=== PATIENT | female | born 1960 | race American Indian/Alaskan Native ===

== ENCOUNTER 2019-08-17 13:13 | Emergency (ER) | payer MEDICAID, SELFPAY ==
[2019-08-17 13:23] VITALS: BP 133/73; PULSE 79; RESP 16; TEMP 36.7; O2SAT 100
[2019-08-17 13:43] LABS: Bilirubin Negative (Negative); Blood Moderate (Negative); Clarity Clear (Clear); Glucose Negative (Negative); Ketones Negative (Negative); Leukocyte Esterase Moderate (Negative); Nitrite Negative (Negative); Specific Gravity <= 1.005 (1.005-1.025); Urobilinogen 0.2 EU/dL (Up TO 0.2); pH 5.5 (5-8)
--- NOTE | 2019-08-17 13:44 | ED.GENADUL_ITS ---
Discharge Plan Disposition Patient Disposition: HOME Condition: Improving Discharge Details Chief Complaint: Urinary Clinical Impression: Acute UTI Primary Care Provider: None,None ED Provider: Ten Leung Home Meds and New Rx's Prescriptions: No Action vitamin E 1,000 unit Capsule 1,000 unit PO DAILY RF: 0 fosinopril 20 mg Tablet 20 mg PO DAILY RF: 0 sildenafil 25 mg Tablet 25 mg PO 5X/DAY RF: 0 amlodipine 10 mg Tablet 10 mg PO DAILY RF: 0 esomeprazole magnesium [Nexium] 40 mg Capsule,Delayed Release(Dr/Ec) 40 mg PO BID RF: 0 nitroglycerin 2 % Ointment 1 inch TRANSDERMAL BID RF: 0 Imodium Multi-Symptom Relief 2-125 mg Tablet 1 tab PO DAILY RF: 0 Vitamin D3 Complete 18 mg iron-800 mcg-150 mg Tablet 1 tab PO DAILY RF: 0 Medical Decision Making 59-year-old [facility] hours of urinary urgency, burning, frequency. She is afebrile and well-appearing. No evidence of peritonitis. She does have a history of scleroderma and Raynaud's syndrome.. These are stable and unchanged. Urinalysis obtained and consistent with acute cystitis with positive leuk esterase, numerous white blood cells present. We will treat her with a course of Keflex 250 mg per dose. Pyridium for comfort. She will follow-up with her regular doctor in [facility] if not improving in 3 to 5 days time. She understands homecare as well as return precautions. HPI General Mode of arrival: ambulatory . Date/Time Provider Initiated Documentation: 08/17/19 13:17 . Limitations to Documentation: no limitations . Information obtained by: patient . History of Present Illness 59 year old F presents to the emergency department with the chief complaint of Urinary frequency, urgency, burning over hours time, Quality is described as constant, and is localized to the pelvis and genitals. Patient reports no radiation. Patient started experiencing this hour(s) and it has been constant. No relieving factors improve symptom(s), No exacerbating factors reported . Patient notes denies fever/chills and nausea/vomiting. Patient did receive the following treatments prior to arrival, none Related Data Home Medications Medication Instructions Recorded Confirmed amlodipine 10 mg PO DAILY 08/17/19 08/17/19 esomeprazole magnesium [Nexium] 40 mg PO BID 08/17/19 08/17/19 fosinopril 20 mg PO DAILY 08/17/19 08/17/19 loperamide-simethicone [Imodium 1 tab PO DAILY 08/17/19 08/17/19 Multi-Symptom Relief] nd-pr-wkor-FA-herbal cmplx#190 1 tab PO DAILY 08/17/19 08/17/19 [Vitamin D3 Complete] nitroglycerin 1 inch TRANSDERMAL BID 08/17/19 08/17/19 sildenafil 25 mg PO 5X/DAY 08/17/19 08/17/19 vitamin E 1,000 unit PO DAILY 08/17/19 08/17/19 Allergies Allergy/AdvReac Type Severity Reaction Status Date / Time No Known Allergies Allergy Unverified 08/17/19 13:25 General Stated Complaint: Urinary LULI: 4 Review of Systems Review of Systems Narrative: 6 systems reviewed and otherwise negative. Patient has many chronic medical problems but no acute changes to her past medical history. [facility], [facility] Medical History High blood pressure (Chronic) Kidney failure (Chronic) Cardona syndrome (Acute) Social History Smoking/Tobacco Use Status: Never Alcohol Intake: never Substance use type: does not use Do you feel safe at home: Yes Do you feel safe in your relationship?: Yes Exam Narrative Exam Narrative: GEN: awake, alert, oriented 3. Pleasant, well groomed, interactive. HEAD: Normocephalic, atraumatic ENT: Mucous membranes moist, oropharynx unremarkable, External ear exam unremarkable EYES: PERRL, EOMI NECK: Full ROM, no GIOVANI, no menigismus CHEST/RESP: Nontender, clear to auscultation bilateral, no wheeze/rhonchi/rales CARDIOVASCULAR: RRR, no murmur, rub ehsan. 2+ Rad pulse bilateral ABDOMEN: Soft, minimal suprapubic tenderness without rebound or guarding, no mass. +Bowel sounds EXT: Full ROM, no edema, no rash, tense skin over bilateral hands consistent with patient's history of scleroderma Neuro: Grossly normal neurologic exam, conversant, interactive. Psych: Speech fluent, thoughts congruent, affect normal Course Vital Signs Vital signs: Vital Signs Temperature 36.7 C 08/17/19 13:23 Pulse 79 08/17/19 13:23 Respiratory Rate 16 08/17/19 13:23 Blood Pressure 133/73 08/17/19 13:23 Pulse Oximetry 100 08/17/19 13:23 Temperature 36.7 C 08/17/19 13:23 Temperature Source Skin 08/17/19 13:23 Pulse 79 08/17/19 13:23 Respiratory Rate 16 08/17/19 13:23 Respiratory Effort Non-Labored 08/17/19 13:30 Blood Pressure 133/73 08/17/19 13:23 Pulse Oximetry 100 08/17/19 13:23 Pain Level 8 08/17/19 13:38
[2019-08-17 13:55] LABS: Bacteria Few HPF (Negative); C & S Indicated? Yes; Casts Negative LPF (Negative); Crystals Negative HPF (Negative); Epithelial Cells Moderate HPF (Negative); Mucus Negative (Negative); WBC >50 HPF (0-5)
[2019-08-17] MEDS: Cephalexin 500 MG CAP PO (14:16)
[2019-08-17] MEDS: Phenazopyridine 100 MG TAB PO (14:16)
== END 2019-08-17 14:21 | disposition home or self-care (01) ==
PROVIDERS: Emergency Provider Emergency Medicine
DX: N39.0 Urinary tract infection, site not specified (principal); B96.20 Unspecified Escherichia coli [E. coli] as the cause of diseases classified elsewhere
CPT/HCPCS: 87077; 99283; 81003; 81015; 87086; 87186

== ENCOUNTER 2021-04-20 01:03 | Outpatient (CLI) | payer MEDICAID, SELFPAY ==
--- NOTE | 2021-04-20 11:29 | DI.MAMMO_ITS ---
Exam(s) MAMMO SCREENING EXAM: MAMMO SCREENING CLINICAL HISTORY: screening,Z12.39 TECHNIQUE: Mammograms were interpreted according to the usual protocol including computer analysis w [facility] CAD system, tomosynthesis and C-view imaging. COMPARISON: FINDINGS: The breasts are heterogeneously dense. No dominant mass or clumped microcalcification is identified in either breast. The current examination is compared with previous examinations including January and there has been no gross interval change in appearance comparison with the previous studies. IMPRESSION: No specific evidence of malignancy at this time. Routine screening examinations are suggested at yea rly intervals in this age group according to the ACS ACR guidelines. BI-RADS Category 1 - Negative Breast Density - Category C - Heterogeneously dense
== END 2021-04-20 01:23 ==
DX: Z12.31 Encounter for screening mammogram for malignant neoplasm of breast (principal)
CPT/HCPCS: 77063; 77067

== ENCOUNTER 2021-08-16 11:22 | Outpatient (REF) | payer MEDICAID, SELFPAY ==
--- NOTE | 2021-08-16 10:15 | PAPFT_PTH ---
PATIENT: Amber Wells LOC: [facility] U#:[id number] AGE/SX: 61/F ROOM: RE08/16/[address]: Danya Acuna APRN : 1960 BED: DIS: 08/16/2021 SPEC #: [id number] RECD: 08/16/21 13:01 STATUS: HARSHA REArianna #: [id number] NAVYA: 08/16/21 10:[address]: Danya Acuna DEPT: [facility] Cytology RECD BY: Susannah Delgado Tissues: 1 - CX/ENDOCX FOR PAP SMEARS Procedures: PAP THIN PREP/UVM Screening HPV DNA PROBE Comments: [id number]
== END 2021-08-16 11:23 | disposition home or self-care (01) ==
LOC: LBN 11:22
DX: Z12.4 Encounter for screening for malignant neoplasm of cervix (principal); Z11.51 Encounter for screening for human papillomavirus (HPV)
CPT/HCPCS: 88142; 87624

== ENCOUNTER 2021-08-17 03:48 | Outpatient (CLI) | payer MEDICAID, SELFPAY ==
[2021-08-17 11:26] LABS: ALT 22 U/L (14-59); AST 14 U/L (15-37); Albumin 3.9 g/dL (3.4-5.0); Alkaline Phosphatase 61 U/L (46-116); Anion Gap 10.7 mmol/L (3-11); BUN 26 mg/dL (7-18); Bilirubin, Total 0.4 mg/dL (0.2-1.0); CO2 25.3 mmol/L (21.0-32.0); CREATININE 1.1 mg/dL (0.55-1.02); Calcium 9.2 mg/dL (8.5-10.1); Calculated LDL 197 mg/dL (<100); Chloride 102 mmol/L (98-107); Cholesterol 276 mg/dL (<200); Estimated GFR 50.67 (mL/min/1.73m2); Glucose 89 mg/dL (74-106); HDL Cholesterol 60 mg/dL (40-60); Potassium 4.5 mmol/L (3.5-5.1); Sodium 138 mmol/L (136-145); Total Protein 7.1 g/dL (6.4-8.2); Triglyceride 99 mg/dL (<150)
== END 2021-08-17 03:49 | disposition home or self-care (01) ==
LOC: LOS 03:49 → LBO 09:54
DX: Z13.220 Encounter for screening for lipoid disorders (principal); Z00.00 Encounter for general adult medical examination without abnormal findings
CPT/HCPCS: 36415; 80053; 80061

== ENCOUNTER 2022-02-15 14:31 | Outpatient (CLI) | payer MEDICAID, SELFPAY ==
--- NOTE | 2022-02-15 14:30 | RT.EKG_ITS ---
APPROVED REPORT Exam: Resting ECG Reason for Exam: Heartbeat skips Patient Location: O HR:73 bpm ECG Measurements Heart Rate 73 AXIS WA 216 P 76 QRSd 80 QRS 74 QT 372 T 80 QTc 410 Conclusion Sinus rhythm...normal P axis, V-rate 60- 99 Atrial premature complexes in couplets...pair SV complexes w/ short R-R Prolonged WA interval...WA >210, V-rate 50- 90 Probable left atrial enlargement...P >50mS, <-0.10mV V1
== END 2022-02-15 14:32 | disposition home or self-care (01) ==
LOC: DI.CM 14:32
PROVIDERS: Visit Provider Nurse Practitioner Family
DX: R07.89 Other chest pain (principal)
CPT/HCPCS: 93010

== ENCOUNTER 2022-02-15 16:21 | Outpatient (CLI) | payer MEDICAID, SELFPAY ==
[2022-02-15 16:00] LABS: Abs Immature Grans 0.02 10^3/uL (0.0-0.06); Absolute Basophil Count 0.05 10^3/uL (0.0-0.2); Absolute Eosinophil Count 0.15 10^3/uL (0.0-0.7); Absolute Lymphocyte Count 1.78 10^3/uL (1.2-3.4); Absolute Monocyte Count 0.47 10^3/uL (0.1-0.8); Absolute Neutrophil Count 5.46 10^3/uL (1.2-6.7); Basophils % 0.6; Eosinophils % 1.9; HGB 10.8 g/dL (11.2-15.7); Immature Grans % 0.3; Lymphocytes % 22.4; MCHC 31.8 % (32.0-36.0); MCV 91.2 fL (80-95); MPV 10.8 fL (8.0-11.0); Monocytes % 5.9; Neutrophils % 68.9; Nucleated RBC 0 %; Platelet Count 329 10^3/uL (130-400); RBC 3.73 10^6/uL (3.93-5.22); RDW-SD 53.2 fL; WBC 7.93 10^3/uL (4.4-10.8)
[2022-02-15 16:47] LABS: Total Iron Binding Capacity 286 ug/dL (250-450)
[2022-02-15 17:07] LABS: ALT 26 U/L (14-59); AST 18 U/L (15-37); Albumin 3.8 g/dL (3.4-5.0); Alkaline Phosphatase 65 U/L (46-116); Anion Gap 8.4 mmol/L (3-11); BUN 20 mg/dL (7-18); Bilirubin, Total 0.2 mg/dL (0.2-1.0); CO2 26.6 mmol/L (21.0-32.0); CREATININE 1.1 mg/dL (0.55-1.02); Calcium 8.5 mg/dL (8.5-10.1); Chloride 109 mmol/L (98-107); Estimated GFR 50.67 (mL/min/1.73m2); Ferritin 8 ng/mL (8-252); Glucose 100 mg/dL (74-106); Potassium 4.2 mmol/L (3.5-5.1); Sodium 144 mmol/L (136-145); TSH 1.15 uIU/mL (0.36-3.74); Total Protein 6.7 g/dL (6.4-8.2)
== END 2022-02-15 16:22 | disposition home or self-care (01) ==
LOC: LBO 16:23
PROVIDERS: Visit Provider Nurse Practitioner Family
DX: R53.83 Other fatigue (principal)
CPT/HCPCS: 36415; 80053; 82728; 83550; 83735; 84443; 85025

== ENCOUNTER 2022-02-15 17:33 | Outpatient (REF) | payer MEDICAID, SELFPAY ==
[2022-02-17 12:55] LABS: COVID-19 RT-PCR UVMMC Result Negative (Negative)
== END 2022-02-15 17:34 | disposition home or self-care (01) ==
LOC: LBN 17:33
PROVIDERS: Visit Provider Nurse Practitioner Family
DX: Z20.822 Contact with and (suspected) exposure to COVID-19 (principal)
CPT/HCPCS: U0003

== ENCOUNTER 2022-02-24 02:22 | Outpatient (RCR) | payer MEDICAID, SELFPAY ==
--- NOTE | 2022-02-24 10:30 | HOLTER_ITS ---
APPROVED REPORT Conclusion This is a 48-hour Holter monitor ordered for fatigue Predominant rhythm was sinus with an average heart rate of 81. Minimum was 60, maximum 131 There were rare ventricular ectopic beats There were rare atrial premature beats A total of 6 self-limited atrial runs occurred. The longest of these was 5 beats in duration. These were asymptomatic There was no atrial fibrillation, no high-grade AV block, no pauses greater than 3 seconds Patient symptoms corresponded to sinus rhythm
== END 2022-03-19 23:59 | disposition home or self-care (01) ==
LOC: RT 02:22
PROVIDERS: Visit Provider Nurse Practitioner Family
DX: R53.83 Other fatigue (principal); I49.1 Atrial premature depolarization
CPT/HCPCS: 93225; 93226

== ENCOUNTER 2022-09-27 03:47 | Outpatient (CLI) | payer MEDICAID, SELFPAY ==
[2022-09-27 11:29] LABS: HCT 34.6 % (36.0-46.0); MCH 28.8 pg (27.0-33.0); MCHC 31.8 % (32.0-36.0); MCV 91 fL (80-95); MPV 11.3 fL (8.0-11.0); Platelet Count 303 10^3/uL (130-400); RBC 3.82 10^6/uL (3.93-5.22); RDW 15.5 % (11.7-14.6); RDW-SD 51.2 fL
[2022-09-27 11:48] LABS: Iron 25 ug/dL (50-170); Total Iron Binding Capacity 306 ug/dL (250-450); Transferrin Sat 8 % (15-50)
[2022-09-27 12:02] LABS: ALT 14 U/L (14-59); AST 15 U/L (15-37); Albumin 3.9 g/dL (3.4-5.0); Alkaline Phosphatase 64 U/L (46-116); Anion Gap 8.9 mmol/L (3-11); BUN 17 mg/dL (7-18); Bilirubin, Total 0.3 mg/dL (0.2-1.0); CO2 26.1 mmol/L (21.0-32.0); Calcium 9.1 mg/dL (8.5-10.1); Calculated LDL 171 mg/dL (<100); Chloride 104 mmol/L (98-107); Cholesterol 251 mg/dL (<200); Estimated GFR 64.09 (mL/min/1.73m2); Ferritin 35 ng/mL (8-252); Glucose 84 mg/dL (74-106); HDL Cholesterol 62 mg/dL (40-60); Potassium 4.6 mmol/L (3.5-5.1); Sodium 139 mmol/L (136-145); Total Protein 7.4 g/dL (6.4-8.2); Triglyceride 91 mg/dL (<150)
[2022-09-27 12:11] LABS: Vitamin D 25 Total 41.6 ng/mL (30-100)
[2022-09-28 10:33] LABS: Transferrin 211 mg/dL (201-352)
== END 2022-09-27 03:48 | disposition home or self-care (01) ==
LOC: LOS 03:47
PROVIDERS: PCP Nurse Practitioner Family; Visit Provider Nurse Practitioner Family
DX: D64.9 Anemia, unspecified (principal); N18.30 Chronic kidney disease, stage 3 unspecified; E78.00 Pure hypercholesterolemia, unspecified
CPT/HCPCS: 36415; 80053; 80061; 82306; 85027; 82728; 83540; 83550; 84443; 84466

== ENCOUNTER 2022-10-11 02:47 | Outpatient (RCR) | payer MEDICAID, SELFPAY ==
[2022-10-11 12:50] VITALS: BP 154/88; PULSE 76; RESP 17; TEMP 35.8; O2SAT 99
[2022-10-11] MEDS: Normal Saline Flush 10 ML SYR IVP (13:08)
[2022-10-11 13:10] VITALS: BP 144/84
[2022-10-11] MEDS: FERRIC DERISOMALTOSE 1,000 MG in Normal Saline 250 ML 520 MG IVPB (13:13)
[2022-10-11 14:20] VITALS: BP 122/80; PULSE 69; RESP 17; TEMP 36.1; O2SAT 100
== END 2022-10-19 23:59 | disposition home or self-care (01) ==
LOC: INF 02:47
PROVIDERS: PCP Nurse Practitioner Family; Visit Provider Nurse Practitioner Family
DX: D64.9 Anemia, unspecified (principal)
CPT/HCPCS: 96365; J1437

== ENCOUNTER 2023-01-10 16:01 | Outpatient (REF) | payer MEDICAID, SELFPAY ==
[2023-01-10 12:52] LABS: HCT 44.5 % (36.0-46.0); HGB 14.7 g/dL (11.2-15.7); MCH 31.6 pg (27.0-33.0); MCV 96 fL (80-95); MPV 11.2 fL (8.0-11.0); Platelet Count 351 10^3/uL (130-400); RBC 4.65 10^6/uL (3.93-5.22); RDW 14.1 % (11.7-14.6); RDW-SD 50.2 fL; WBC 7.03 10^3/uL (4.4-10.8)
[2023-01-10 13:04] LABS: Iron 111 ug/dL (50-170); Total Iron Binding Capacity 233 ug/dL (250-450)
== END 2023-01-10 16:02 | disposition home or self-care (01) ==
LOC: LBN 16:01
PROVIDERS: PCP Nurse Practitioner Family; Visit Provider Nurse Practitioner Family
DX: D64.9 Anemia, unspecified (principal)
CPT/HCPCS: 85027; 83540; 83550

== ENCOUNTER 2023-03-17 13:41 | Outpatient (REF) | payer MEDICAID, SELFPAY ==
[2023-03-17 13:41] LABS: HGB 13.9 g/dL (11.2-15.7); MCHC 33.1 % (32.0-36.0); MCV 97 fL (80-95); MPV 10.8 fL (8.0-11.0); Platelet Count 312 10^3/uL (130-400); RBC 4.34 10^6/uL (3.93-5.22); RDW 13.3 % (11.7-14.6); WBC 6.44 10^3/uL (4.4-10.8)
[2023-03-17 14:00] LABS: Iron 133 ug/dL (50-170); Total Iron Binding Capacity 240 ug/dL (250-450)
[2023-03-17 14:13] LABS: Ferritin 92 ng/mL (8-252)
== END 2023-03-17 13:42 | disposition home or self-care (01) ==
LOC: LBN 13:41
PROVIDERS: PCP Nurse Practitioner Family; Visit Provider Nurse Practitioner Family
DX: N18.31 Chronic kidney disease, stage 3a (principal); D63.1 Anemia in chronic kidney disease
CPT/HCPCS: 85027; 82728; 83540; 83550

== ENCOUNTER 2023-06-19 10:08 | Outpatient (CLI) | payer MEDICAID, SELFPAY ==
[2023-06-19 12:39] LABS: HCT 42.5 % (36.0-46.0); MCHC 32.9 % (32.0-36.0); MCV 97 fL (80-95); MPV 11.3 fL (8.0-11.0); Platelet Count 291 10^3/uL (130-400); RBC 4.38 10^6/uL (3.93-5.22); RDW-SD 46.2 fL; WBC 5.29 10^3/uL (4.4-10.8)
[2023-06-19 12:57] LABS: Iron 95 ug/dL (50-170); Total Iron Binding Capacity 236 ug/dL (250-450)
[2023-06-19 13:09] LABS: Ferritin 70 ng/mL (8-252)
[2023-06-21 11:33] LABS: IgA 153 mg/dL (85-499); Interpretation (See Note); Tissue Transglutaminase IgA <1.2 U/mL (<4.0)
== END 2023-06-19 10:09 | disposition home or self-care (01) ==
LOC: LOS 10:08
PROVIDERS: PCP Nurse Practitioner Family; Referring Provider Nurse Practitioner Family; Visit Provider Nurse Practitioner Family
DX: N18.4 Chronic kidney disease, stage 4 (severe) (principal); D63.1 Anemia in chronic kidney disease; F41.8 Other specified anxiety disorders; K92.89 Other specified diseases of the digestive system
CPT/HCPCS: 36415; 82784; 83516; 85027; 82728; 83540; 83550

== ENCOUNTER 2023-10-16 14:58 | Outpatient (REF) | payer MEDICAID, SELFPAY ==
[2023-10-16 21:38] LABS: HCT 42.3 % (36.0-46.0); HGB 14.2 g/dL (11.2-15.7); MCH 32.3 pg (27.0-33.0); MCHC 33.6 % (32.0-36.0); MCV 96 fL (80-95); MPV 11.4 fL (8.0-11.0); Platelet Count 298 10^3/uL (130-400); RDW 13.2 % (11.7-14.6); RDW-SD 47.4 fL; WBC 7.27 10^3/uL (4.4-10.8)
[2023-10-16 22:11] LABS: Ferritin 60 ng/mL (8-252); Vitamin B12 285 pg/mL (193-986)
[2023-10-16 22:32] LABS: Iron 71 ug/dL (50-170); Total Iron Binding Capacity 227 ug/dL (250-450)
== END 2023-10-16 14:59 | disposition home or self-care (01) ==
LOC: LBN 14:58
PROVIDERS: PCP Nurse Practitioner Family; Visit Provider Nurse Practitioner Family
DX: D63.1 Anemia in chronic kidney disease (principal); N18.4 Chronic kidney disease, stage 4 (severe)
CPT/HCPCS: 85027; 82607; 82728; 83540; 83550

== ENCOUNTER → 2023-10-18 01:19 | Outpatient (CLI) | payer MEDICAID, SELFPAY ==
--- NOTE | 2023-10-18 07:15 | DI.MAMMO_ITS ---
Exam(s) MAMMO DIAGNOSTIC BI US BREAST LT LIMITED EXAM: MAMMO DIAGNOSTIC BI and U/S breast LT limited CLINICAL HISTORY: tender mass left breast/chest wall,N63.20. TECHNIQUE: Craniocaudal and mediolateral oblique Full Field Digital Mammography views with Computer Aided Diagnosis followed by Tomosynthesis and left breast ultrasound. COMPARISON: Comparison is made with prior examinations. FINDINGS: Mammography/Tomosynthesis: Masses/Architectural Distortion: None seen. Microcalcifictions: No suspicious pleomorphic-type are seen. Skin Thickening/Nipple Retraction: None. Limited left breast US: Echotexture: Ill-defined subcutaneous fluid is seen in the soft tissues which may represent edema. N o discrete mass is identified. Shadowing: No suspicious foci. Cyst: None. Solid lesions: None seen. Ductal dilation: None. IMPRESSION: 1. No evidence of malignancy is noted. Mild edema seen in the soft tissues in the area of concern as identified by the patient. No discrete mass is seen. No focal fluid collection is seen to suggest a n abscess. 2. Unless there is more urgent need, follow-up screening mammography is recommended, as per [place] [employer] guidelines. 3. The findings were discussed with the patient on the date of the examination. BI-RADS Category 2 - Benign Findings Breast Density - Category C - Heterogeneously dense Breast density Category C or D implies that the patient has dense breast tissue. Dense breast tissue can make it harder to find cancer on a mammogram. Dense breast tissue is also associated with an incr eased risk of breast cancer. This information about the result of the mammogram report was provided to the patient to raise their awareness. Use this report when you speak with the patient about their risks for breast cancer, which includes their family history. At that time, you may recommend additional screening tests (Ultrasoun d or MRI) as these tests may add significant information. A negative radiographic report should not delay biopsy if a dominant or clinically suspicious mass is present. Up to ten percent of cancers are not identified on mammography. A negative report may reinforce clinical impression. Adenosis and dense breasts may obscure an underlying neoplasm. False positive reports average 6 to 10%. Patient will receive a letter notifying them of these results.
== END ==
PROVIDERS: PCP Nurse Practitioner Family; Visit Provider Nurse Practitioner Family
DX: Z12.31 Encounter for screening mammogram for malignant neoplasm of breast (principal); R92.8 Other abnormal and inconclusive findings on diagnostic imaging of breast
CPT/HCPCS: 76642; 77062; 77066; G0279

== ENCOUNTER 2024-01-25 03:20 | Outpatient (RCR) | payer MEDICAID, SELFPAY ==
[2024-01-25] MEDS: ZOLEDRONIC ACID/MANNITOL/WATER 5 MG/100 ML BTL 300 MG IVPB (14:11)
[2024-01-25] MEDS: Normal Saline Flush 10 ML SYR IVP (14:13)
== END 2024-02-18 23:59 | disposition home or self-care (01) ==
LOC: INF 03:20
PROVIDERS: PCP Nurse Practitioner Family; Visit Provider Nurse Practitioner Family
DX: M81.0 Age-related osteoporosis without current pathological fracture (principal)
CPT/HCPCS: 96365; J3489

== ENCOUNTER 2024-05-25 16:58 | Outpatient (REF) | payer MEDICAID, SELFPAY ==
[2024-05-25 17:37] LABS: Iron 92 ug/dL (50-170)
== END 2024-05-25 16:59 | disposition home or self-care (01) ==
LOC: LBN 16:58
PROVIDERS: PCP Nurse Practitioner Family; Visit Provider Nurse Practitioner Family
DX: N18.4 Chronic kidney disease, stage 4 (severe) (principal); D63.1 Anemia in chronic kidney disease
CPT/HCPCS: 83540

== ENCOUNTER 2024-09-14 12:54 | Outpatient (REF) | payer MEDICAID, SELFPAY ==
--- OUTSIDE RECORDS SUMMARY | 2024-09-14 13:01 | XMS_ITS | Continuity of Care Document ---
Author Organization [facility] Address [address] [place] [address] Care Team Providers Care Ceramic Maker Demonstrator Name Role Phone Ameya Snow Primary Care Physician Encounter [facility] Date(s): 03/01/24 - 03/01/[address] [id number] Discharge Disposition: Home or Self Care Attending Physician: Ameya Mandujano DNP Admitting Physician: Ameya Mandujano DNP Referring Physician: Ameya Mandujano DNP Allergies, Adverse Reactions, Alerts No Known Medication Allergies Substance Reaction Severity Status SHELLFISH DERIVED Unknown Active Assessment and Plan Future Appointments Future Scheduled Tests Laboratory* Surgical Pathology [facility] 02/15/24 Immunizations Given and Recorded Vaccine Date Status Refusal Reason SARS-CoV-2 (COVID-19) mRNA-1273 vaccine 07/12/21 R ecorded SARS-CoV-2 (COVID-19) mRNA-1273 vaccine 03/01/21 R ecorded SARS-CoV-2 (COVID-19) mRNA-1273 vaccine 02/01/21 R ecorded influenza virus vaccine, live 08/12/20 Recorded influenza virus vaccine, live 01/09/20 Recorded influenza virus vaccine, live 10/07/16 Recorded influenza virus vaccine, live 08/08/14 Recorded zoster vaccine, inactivated 07/16/20 Recorded zoster vaccine, inactivated 1 04/17/20 Recorded pneumococcal 23-polyvalent vaccine 01/20/20 Record ed pneumococcal 23-polyvalent vaccine 02/22/10 Record ed tetanus/diphth/pertuss (Tdap) adult/adol 01/09/20 Recorded Td(adult) unspecified formulation 08/24/10 Recorde d 1Result Comment: Tolerated well Medications acetaminophen 325 mg oral capsule 325 mg = 1 cap, Oral, every 4 hr, PRN as needed for fever, # 20 cap, 0 Refill(s) Start Date: 12/08/23 Status: Ordered acetaminophen-codeine 300 mg-30 mg oral tablet 0 Refill(s) Start Date: 12/08/23 Status: Ordered amitriptyline 10 mg oral tablet 0 Refill(s) Start Date: 12/08/23 Status: Ordered amLODIPine 10 mg oral tablet 0 Refill(s) Start Date: 12/08/23 Status: Ordered calcium citrate 0 Refill(s) Start Date: 12/08/23 Status: Ordered cephalexin 0 Refill(s) Start Date: 12/08/23 Status: Ordered clobetasol 0.05% topical ointment 0 Refill(s) Start Date: 12/08/23 Status: Ordered esomeprazole 40 mg oral delayed release capsule 0 Refill(s) Start Date: 12/08/23 Status: Ordered Fish Oil 1000 mg oral capsule 0 Refill(s) Start Date: 12/08/23 Status: Ordered fluticasone 50 mcg/inh nasal spray 0 Refill(s) Start Date: 12/08/23 Status: Ordered fosinopril 20 mg oral tablet 0 Refill(s) Start Date: 12/08/23 Status: Ordered glycerin 0 Refill(s) Start Date: 12/08/23 Status: Ordered hydrocortisone 2.5% topical ointment 0 Refill(s) Start Date: 12/08/23 Status: Ordered ibuprofen 200 mg oral tablet 0 Refill(s) Start Date: 12/08/23 Status: Ordered lidocaine-prilocaine 2.5%-2.5% topical cream 1 jayne, Topical, Once, # 30 g, 0 Refill(s) Start Date: 12/08/23 Status: Ordered LORazepam 1 mg oral tablet 0 Refill(s) Start Date: 12/08/23 Status: Ordered MiraLax 0 Refill(s) Start Date: 12/08/23 Status: Ordered nitroglycerin 0.2% transdermal ointment 0 Refill(s) Start Date: 12/08/23 Status: Ordered sildenafil 20 mg oral tablet 0 Refill(s) Start Date: 12/08/23 Status: Ordered Vitamin D3 0 Refill(s) Start Date: 12/08/23 Status: Ordered vitamin E 0 Refill(s) Start Date: 12/08/23 Status: Ordered zoledronic acid 5 mg/100 mL intravenous solution Every Year, 0 Refill(s) Start Date: 12/08/23 Status: Ordered Problem List Condition Confirmation Course Effective Dates Status Health Status Informant Desmoid fibromatosis Confirmed Active Anemia of chronic renal failure, stage 4 (severe) Confirmed Active Anxiety Confirmed Active Arthritis Confirmed Active 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 Chronic kidney disease (CKD) Confirmed Active Contact dermatitis Confirmed Active CREST syndrome Confirmed Active Dysplastic nevus of skin Confirmed Active Fatigue associated with anemia Confirmed Active GERD (gastroesophageal reflux disease) Confirmed Active Hypercholesteremia Confirmed Active Incontinence of feces Confirmed Active Inflamed seborrheic keratosis Confirmed Active Insomnia Confirmed Active IBS (irritable bowel syndrome) Confirmed Active Actinic keratitis Confirmed Active Mass of scalp Confirmed Active Raynaud's disease without gangrene Confirmed Active Rectal bleeding Confirmed Active Scleroderma Confirmed Active Procedures Procedure Date Related Diagnosis Body Site Status Colonoscopy 02/14/24 Completed Endoscopy 04/19/23 Completed Social History Social History Type Response Tobacco Never tobacco user T obacco Use:. Sex Female Patient Care team information Care Team Personnel Name: Ameya Snow DNP Position: No Access Member Role: Informed Provider Address: Address: [address], [facility] [address] [place] [address] [place] Care Team Related Persons Name: MAHNAZ DAWSON Name: ANGELO ESCALONA
--- OUTSIDE RECORDS SUMMARY | 2024-09-14 13:01 | XMS_ITS | Encounter Summary ---
Author Organization [facility] Address [address] [place] [address] Care Team Providers Care Hotel Maintenance Engineer Name Role Phone Lilibeth Phillips MD Primary Care Provider Unavailabl e Encounter Details Date Type Department Care Team (Late st Contact Info) Description 07/31/2020 Lab Requisition [facility] Pathology & Laboratory Medicine - [facility] [address] [place] [address] Daniel Aguilar MD [address] [place] [id number] Encounter for other general examination Social History Tobacco Use Types Packs/Day Years Used Date Smoking Tobacco: Never Assessed Interpersonal Safety Answer Date Record ed Physically Hurt Never 06/21/2020 Verbally Threaten Not on file 06/21/2020 Sex and Gender Information Value Date Recorded Sex Assigned at Not on file Gender Identity Not on file Sexual Orientation Not on file documented as of this encounter Plan of Treatment Not on file documented as of this encounter Procedures Procedure Name Priority Date/Time Associated Diagnosis Comments SURGICAL PATHOLOGY Today 07/31/2020 15 :15 EDT documented in this encounter Results * SURGICAL PATHOLOGY (07/31/2020 15:15 EDT) Final Diagnosis A. SOFT TISSUE OF SCALP, LEFT OCCIPITAL, MASS, NEEDLE CORE BIOPSY: - Fibroconnective tissue with mixed inflammatory infiltrate and abundant eosinophils. See comment. 08/13/2020 6:18 EDT [facility] Diagnosis Comment Histologic sections show fibroconnective tissue with variable hyalinization and dense inflammatory infiltrate of eosinophils, lymphocytes and histiocytes. By immunohistochemistr y, the histiocytes stain positively for CD68 and Cd1a, but appear to be negative for S100. These may represent a proliferation of Langerhans cells in the dermis. GMS and AFB stains are negative for fungal and mycobacterial organisms, respectively. While uncommon in females, the dense eosinophilic infiltrate and location raise the possibility of a chronic inflammatory condition such as Liborio's disease. Epithelioid hemangioma was also considered; however vascularity is not pronounced. Overall, the findings are non-specific and while a reactive process is favored, a neoplastic process cannot be entirely excluded. There may be consideration for wider sampling (e.g. excisional biopsy) for further classification, if clinically indicated. This case was reviewed in conjunction with the prior biopsy showing fibromatosis ([id number]) and the lesions are morphologically distinct. Characteristic features of fibromatosis are not seen in the current material. Bezel Cutter slides of this case were reviewed at the intradepartmental consultation conference.The specimen was shown in consultation to Leni Schmitz MD, Hematopathologist. This case was discussed with a electronics parts sales representative from Dr. Quiros's office on 08/12/20. ANTIBODY(CLONE)(BLO CK):RESULT CD1a (MTB1, [facility]) (Block A1): Strong positive in cells of interest S-100 Protein DAB (4C4.9, [place]) (Block A1): Negative aSMA (alpha Smooth Muscle Actin (asm-1, [facility]) (Block A1): Negative Alk 1 (Alk01, [place]) (Block A1): Negative CD68 (514H12, [facility]) (Block A1): Scattered positive staining in background histiocytes ERG ([id number], [place]) (Block A1): Negative IgG4 (OC4750, [facility]) (Block A1): Negative NOTE: One or more of the reagents used in immunoperoxidase testing in this case may not have been cleared or approved by the U.S. Food and Drug Administration (FDA). The FDA has determined that such clearance or approval is not necessary. These tests are used for clinical purposes. They should not be regarded as investigational or for research. These reagents' performance characteristics have been determined by [facility] and/or by the referring laboratory. The positive and negative controls worked appropriately. If immunoperoxidase staining has been performed on alcohol fixed cytology specimens, which has not been fully validated, the assays should be interpreted with caution and correlated with clinical data. This laboratory is certified under the Clinical Laboratory Improvement Amendments of 1988 (CLIA-88) as qualified to perform high complexity clinical laboratory testing. 08/13/2020 6:18 T [facility] Attestation There was significant resident/fellow involvement in the diagnostic evaluation of this case. By the signature below, the attending physician certifies that they have personally conducted a gross and/or microscopic examination of the described specimens and rendered or confirmed the above diagnosis. 08/13/2020 6:18 EDT [facility] at 0618 Clinical History H/O desmoid tumors; new rapidly growing L occipital scalp mass 08/13/2020 6:18 EDT [facility] Gross Description A. Received in formalin labelled with proper patient identification (initials B, K) and not otherwise specified are three white, focally light lcaire cylinders of firm tissue that measure 1.4 cm, 1.3 cm, and 0.9 cm in length, with each slightly less than 0.1 cm in diameter. Submitted intact in A1. León Gallegos 08/03/2020 11:06 08/13/2020 6:18 EDT [facility] Resident/Fell ow: Lopez Worley MD 08/13/2020 6:18 T [facility] Performing Lab [facility] 08/13/2020 6:18 T [facility] Scanned Images 08/13/2020 6:18 T [facility] Tissue SOFT TISSUE / Unknown 07/31/2020 15:15 EDT 08/01/2020 4:44 EDT Daniel Aguilar MD PATHOLOGY ORDERABLES [facility] [address] [place] [address] documented in this encounter Visit Diagnoses Diagnosis Encounter for other general examination documented in this encounter Care Teams Hotel Maintenance Engineer Relationship Specialty Start Date End Date Lilibeth Phillips MD PCP - General 09/01/10 09/09/24 documented as of this encounter
--- OUTSIDE RECORDS SUMMARY | 2024-09-14 13:01 | XMS_ITS | Encounter Summary ---
Author Organization [facility] Address [address] [place] [address] Care Team Providers Care Inspector Circuitry Negative Name Role Phone Lilibeth Phillips MD Primary Care Provider Unavailabl e Encounter Details Date Type Department Care Team (Late st Contact Info) Description 06/19/2023 Lab Requisition [facility] Pathology & Laboratory Medicine - [facility] [address], [place] [id number] Outr Resulting Lab, Provider Social History Tobacco Use Types Packs/Day Years [...] Procedure Name Priority Date/Time Associated Diagnosis Comments CELIAC DISEASE PANEL Routine 06/19/2023 10:19 EDT documented in this encounter Results * CELIAC DISEASE PANEL (06/19/2023 10:19 EDT) Tissue Transglutaminase Antibody IGA <1.2 <4.0 U/mL 06/21/2023 11:28 EDT [facility] Comment: A negative result may be due to IgA deficiency and does not rule out celiac disease. ? Negative: ??<4.0 U/mL ? Weak Positive: ??4.0 - 10.0 U/mL ? Positive: ??>10.0 U/mL Results were obtained with the [employer] QUANTA Lite R h-tTG IgA VIKY assay on the [employer] DSX. IgA 153 85 - 499 mg/dL 06/21/2023 11:28 EDT [facility] Celiac Disease Interpretation Negative Serology. Celiac disease unlikely. Approximately 10% of patients with celiac disease are seronegative. Patients who are already adhering to a gluten-free diet may also be seronegative. If celiac disease is highly clinically suspected, referral to gastroenterology for additional evaluation is recommended. 06/21/2023 11:28 EDT [facility] Blood VENOUS BLOOD / Unknown 06/19/2023 10:19 EDT 06/19/2023 21:24 EDT Provider Outr Resulting Lab IMMUNOLOGY A ND SEROLOGY ORDERABLES [facility] [address] [place] [address] documented in this encounter Visit Diagnoses Not on filedocumented in this encounter Care Teams Inspector Circuitry Negative Relationship Specialty Start Date End Date Lilibeth Phillips MD PCP - General 09/01/10 09/09/24 documented as of this encounter
--- OUTSIDE RECORDS SUMMARY | 2024-09-14 13:01 | XMS_ITS | Encounter Summary ---
Author Organization [facility] Address [address] [place] [address] Care Team Providers Care Elementary Educator Name Role Phone Lilibeth Phillips MD Primary Care Provider Unavailabl e Encounter Details Date Type Department Care Team (Late st Contact Info) Description 09/11/2023 Lab Requisition [facility] Pathology & Laboratory Medicine - [facility] [address], [place] [id number] Outr Resulting Lab, Provider Social History Tobacco [...] Procedure Name Priority Date/Time Associated Diagnosis Comments VITAMIN D (25,OH) Routine 09/11/2023 15: 52 EDT PTH INTACT Routine 09/11/2023 15:52 EDT documented in this encounter Results * PTH INTACT (09/11/2023 15:52 EDT) Intact PTH 60 19 - 88 pg/mL 09/11/2023 23:21 EDT [facility] Blood VENOUS BLOOD / Unknown 09/11/2023 15:52 EDT 09/11/2023 22:26 EDT Provider Outr Resulting Lab CHEMISTRY & BLOOD GAS ORDERABLES Performing Organization Address [facility]/ZIP Co de Phone Number [facility] [address] [place] [address] * VITAMIN D (25,OH) (09/11/2023 15:52 EDT) 25OH Vitamin D Tot 41 30 - 100 ng/mL 09/12/2023 10:11 EDT [facility] Comment: Vitamin D 25,OH Interpretive Ranges: Deficiency: ??<10.0 ng/mL Insufficiency: ??10.0 - 30.0 ng/mL Sufficiency: ??30.0 - 100.0 ng/mL Toxicity: ??>100.0 ng/mL Blood VENOUS BLOOD / Unknown 09/11/2023 15:52 EDT 09/11/2023 22:26 EDT Provider Outr Resulting Lab CHEMISTRY & BLOOD GAS ORDERABLES Performing Organization Address [facility]/ZIP Co de Phone Number [facility] [address] [place] [address] documented in this encounter Visit Diagnoses Not on filedocumented in this encounter Care Teams Elementary Educator Relationship Specialty Start Date End Date Lilibeth Phillips MD PCP - General 09/01/10 09/09/24 documented as of this encounter
--- OUTSIDE RECORDS SUMMARY | 2024-09-14 13:01 | XMS_ITS | Encounter Summary ---
Author Organization [facility] Address [address] [place] [address] Care Team Providers Care Composing Room Machinist Apprentice Name Role Phone Lilibeth Phillips MD Primary Care Provider Unavailabl e Encounter Details Date Type Department Care Team (Late st Contact Info) Description 04/22/2020 Lab Requisition [facility] Pathology & Laboratory Medicine - [facility] [address] [place] [address] Gorge Man MD [address] [place] [phone] Encounter for other general examination Social History Tobacco Use Types Packs/Day Years Used Date Smoking Tobacco: Never Assessed Sex and Gender Information Value Date Recorded Sex Assigned at Not on file Gender Identity Not on file Sexual Orientation Not on file documented as of this encounter Plan of Treatment Not on file documented as of this encounter Procedures Procedure Name Priority Date/Time Associated Diagnosis Comments SURGICAL PATHOLOGY Today 04/21/2020 16 :30 EDT documented in this encounter Results * SURGICAL PATHOLOGY (04/21/2020 16:30 EDT) Final Diagnosis A. SKIN OF BACK, RIGHT, PUNCH BIOPSY: - Subcutaneous spindle cell proliferation, consistent with fibromatosis (desmoid tumor). See comment. - Spindle cell proliferation present at peripheral and deep tissue edges. 04/27/2020 14:39 EDT [facility] at 1439 Attestation By the signature below, the attending physician certifies that they have 1) personally conducted a gross and/or microscopic examination of the described specimen(s), and/or personally interpreted the results of laboratory testing of the described specimen(s), and 2) personally rendered or confirmed the above diagnosis. 04/27/2020 14:39 [facility] at 1439 Diagnosis Comment The biopsy consists of a subcutaneous spindle cell proliferation composed of bland spindle cells arranged in a loose collagenous matrix. Given the morphologic features, immunohistochemical staining pattern, and clinical history, features are consistent with fibromatosis (desmoid tumor). Lesion extends to the edges and base of the biopsy specimen. 04/27/2020 14:39 [facility] Microscopic Description Sections consist of a punch biopsy of skin to the superficial subcutis. The epidermis is mildly acanthotic and has increased amount of melanin pigment centrally. The dermis has mild elastosis and vascular ectasia. Within the subcutis, there is a spindle cell proliferation that is of relatively low cellular density. The spindle cells are arranged vague fascicles and in a haphazard fashion within a loose collagenous matrix. The spindle cell nuclei are relatively uniform without pleomorphism or mitotic activity. The spindle cells show immunoreactivity for aSMA (alpha Smooth Muscle Actin (asm-1, [place]) and nuclear staining for Beta Catenin (14, [place]). They do not show appreciable immunoreactivity for CD34 (QBEnd/10, [place]), S-100 ALK PHOS (4C4.9, [place]), or Alk 1 (Alk01, [place]). NOTE: One or more of the reagents [...] performance characteristics have been determined by [facility] and/or by the referring laboratory. [...] qualified to perform high complexity clinical laboratory testing.? 04/27/2020 14:39 EDT [facility] Clinical History 2 month history of tumor on back, history of desmoid; desmoid 04/27/2020 14:39 EDT [facility] Gross Description A. Received in formalin labelled with proper patient identification (initials B, K) and not otherwise specified is a 0.6 cm circular skin excised to a depth of 0.5 cm. The skin surface is mottled brown to brown black. Bisected and entirely submitted in A1. Corinna Ordaz 04/23/2020 8:34 04/27/2020 14:39 EDT [facility] Scanned Images 04/27/2020 14:39 EDT [facility] Tissue TISSUE SPECIMEN FROM SKIN / Unknown 04/21/2020 16:30 EDT 04/22/2020 23:13 EDT Gorge Man MD PATHOLOGY ORDERABLES [facility] [address] [place] [address] documented in this encounter Visit Diagnoses Diagnosis Encounter for other general examination documented in this encounter Care Teams Composing Room Machinist Apprentice Relationship Specialty Start Date End Date Lilibeth Phillips MD PCP - General 09/01/10 09/09/24 documented as of this encounter
--- OUTSIDE RECORDS SUMMARY | 2024-09-14 13:01 | XMS_ITS | Clinical Summary ---
Author Organization [facility] Address [address] [place] [address] Care Team Providers Care Machine Icer Name Role Phone Unavailable Primary Care Provider Unavailabl e Social History Tobacco Use Types Packs/Day Years Used Date Smoking Tobacco: Never Assessed Interpersonal Safety Answer Date Record ed Physically Hurt Never 06/21/2020 Verbally Threaten Not on file 06/21/2020 Sex and Gender Information Value Date Recorded Sex Assigned at Not on file Gender Identity Not on file Sexual Orientation Not on file Plan of Treatment Health Maintenance Due Date Last Done Comments RSV Immunization ( o r 60+ Years) (1 - 1-dose 60+ series) 2021 COVID-19 Vaccine ( season) 2024 Hepatitis C Screen Completed 01/20/2020 Procedures Procedure Name Priority Date/Time Associated Diagnosis Comments HEPATITIS C AB W REFLEX TO HCV RNA BY PCR Routine 01/20/2020 10:04 EST from Last 3 Months or Most Recently Relevant to Health Maintenance Results * HEPATITIS C AB W REFLEX TO HCV RNA BY PCR (01/20/2020 10:04 EST) Hep C Antibody Negative Negative 01/21/2020 10:35 EST [facility] Blood VENOUS BLOOD / Unknown 01/20/2020 10:04 EST 01/20/2020 21:50 EST Provider Unknown CHEMISTRY & BLOOD GA S ORDERABLES [facility] [address] [place] [address] from Last 3 Months or Most Recently Relevant to Health Maintenance
--- OUTSIDE RECORDS SUMMARY | 2024-09-14 13:01 | XMS_ITS | Continuity of Care Document ---
Author Organization [facility] Address [address] [place] [address] Care Team Providers Care Motor Vehicle Parts Interpreter Name Role Phone Gorge Man Primary Care Physician Encounter [facility] Date(s): 12/22/22 - 12/22/[address] [phone] Discharge Disposition: Home or Self Care Attending Physician: Ameya Acosta DNP Admitting Physician: Ameya Acosta DNP Referring Physician: Ameya Acosta DNP Allergies, Adverse Reactions, Alerts No Known Medication Allergies Substance Reaction Severity Status SHELLFISH DERIVED Unknown Active Immunizations Given and Recorded Vaccine Date Status [...] 08/24/10 Recorde d 1Result Comment: Tolerated well Results Laboratory List Name Date CBC w/o Diff 12/22/22 Iron Level and TIBC 12/22/22 Most recent to oldest [Reference Range]: 1 WBC [5.0-10.0 x10^3/mcL] 6.6 x10^3/mcL (12/22/22 8:56 AM) RBC [4.1-5.3 x10^6/mcL] 4.4 x10^6/mcL (12/22/22 8:56 AM) MCV [80.0-96.0] 95.7 (12/22/22 8:56 AM) MCHC [31.0-35.0 g/dL] 33.4 g/dL (12/22/22 8:56 AM) Hct [37.0-47.0 %] 42.5 % (12/22/22 8:56 AM) Iron Sat [20-55 %] 42 % (12/22/22 8:56 AM) MCH [26.0-32.0 pg] 32.0 pg (12/22/22 8:56 AM) Hgb [12.0-16.0 g/dL] 14.2 g/dL (12/22/22 8:56 AM) Platelets [130-450 x10^3/mcL] 296 x10^3/ mcL (12/22/22 8:56 AM) TIBC [250-450 mcg/dL] 221 mcg/dL *LOW* (12/22/22 8:56 AM) Iron [50-170 mcg/dL] 93 mcg/dL (12/22/22 8:56 AM) RDW-CV [11.7-17.0 %] 15.5 % (12/22/22 8:56 AM) Social History Social History Type Response Sex Female Patient Care team information Personnel Name: Gorge Man MD Address: Address: [address]
--- OUTSIDE RECORDS SUMMARY | 2024-09-14 13:01 | XMS_ITS | Encounter Summary ---
Author Organization [facility] Address [address] [place] [address] Care Team Providers Care Cocktail Waitress Name Role Phone Lilibeth Phillips MD Primary Care Provider Unavailabl e Encounter Details Date Type Department Care Team (Late st Contact Info) Description 08/18/2021 Lab Requisition [facility] Pathology & Laboratory Medicine - [facility] [address] [place] [address] Danya Acuan, ENTRY LEVEL BUYER [address] [place] [phone] Encounter for other general examination Social History [...] Procedure Name Priority Date/Time Associated Diagnosis Comments PAP TEST Today 08/16/2021 10:15 EDT Encounter for other general examination HPV DNA DETECTION WITH GENOTYPING, PCR Today 08/16/2021 10:15 EDT Encounter for other general examination documented in this encounter Results * HUMAN PAPILLOMAVIRUS (HPV) DETECTION-HIGH RISK TYPES (08/16/2021 10:15 EDT) HPV other High Risk types, PCR Negative Negative 08/31/2021 12:07 EDT [facility] Comment:No E6 or E7 mRNA is detected from HPV types 16,18,31,33,35,39,45,51,52,56,58,59,66, and 68 by awning assembler mediated amplification. Papanicolaou smear specimen (specimen) CERVIX UTERI STRUCTURE / Unknown 08/16/2021 10:15 EDT 08/27/2021 10:23 EDT Danya Acuna NP MICROBIOLOGY - GENER AL ORDERABLES [facility] [address] [place] [address] * PAP TEST (08/16/2021 10:15 EDT) Specimens A. Cervix and/or Endocervix , ThinPrep Imaging System with Manual Evaluation 08/31/2021 12:07 T [facility] Specimen Adequacy Satisfactory for Evaluation - assessment of transformation zone component not applicable ( e.g. atrophy, vaginal sample, hysterectomy) 08/31/2021 12:07 [facility] General Categorization Negative for intraepithelial lesion or malignancy 08/31/2021 12:07 [facility] Attestation . 08/31/2021 12:07 [facility] at 1207 Clinical History See below 08/31/20 12:07 T [facility] HPV The result for the Human Papillomavirus (HPV) Detection-High Risk Types is Negative. No E6 or E7 mRNA is detected from HPV types 16,18,31,33,35,39 ,45,51,52,56,58,5 9,66, and 68 by awning assembler mediated amplification.Clarissa ting was performed on specimen [id number] and was resulted on 08/31/2021 1151 EDT by BEN, LAB INSTRUMENT RESULTS IN 08/31/2021 12:07 T [facility] Performing Lab [facility] 08/31/2021 12:07 T [facility] Scanned Images 08/31/2021 12:07 T [facility] Papanicolaou smear specimen (specimen) CERVIX UTERI STRUCTURE / Unknown 08/16/2021 10:15 EDT 08/18/2021 10:56 EDT Danya Acuna ENTRY LEVEL BUYER PATHOLOGY ORDERABLES [facility] [address] [place] [address] documented in this encounter Visit Diagnoses Diagnosis Encounter for other general examination documented in this encounter Care Teams Cocktail Waitress Relationship Specialty Start Date End Date Lilibeth Phillips MD PCP - General 09/01/10 09/09/24 documented as of this encounter
--- OUTSIDE RECORDS SUMMARY | 2024-09-14 13:01 | XMS_ITS | Encounter Summary ---
Author Organization [facility] Address [address] [place] [address] Care Team Providers Care First Officer Name Role Phone Lilibeth Phillips MD Primary Care Provider Unavailabl e Encounter Details Date Type Department Care Team (Late st Contact Info) Description 09/27/2022 Lab Requisition [facility] Pathology & Laboratory Medicine - [address] [address] Outr Resulting Lab, Provider Social History Tobacco [...] Procedure Name Priority Date/Time Associated Diagnosis Comments TRANSFERRIN Routine 09/27/2022 8:57 EST documented in this encounter Results * TRANSFERRIN (09/27/2022 8:57 EST) Transferrin 211 201 - 352 mg/dL 09/28/2022 10:28 EST [facility] Blood VENOUS BLOOD / Unknown 09/27/2022 8:57 EST 09/27/2022 17:13 EST Provider Outr Resulting Lab CHEMISTRY & BLOOD GAS ORDERABLES [facility] [address] [place] [address] documented in this encounter Visit Diagnoses Not on filedocumented in this encounter Care Teams First Officer Relationship Specialty Start Date End Date Lilibeth Phillips MD PCP - General 09/01/10 09/09/24 documented as of this encounter
--- OUTSIDE RECORDS SUMMARY | 2024-09-14 13:01 | XMS_ITS | Encounter Summary ---
Author Organization [facility] Address [address] [place] [address] Care Team Providers Care Nurse'S Assistant Name Role Phone Lilibeth Phillips MD Primary Care Provider Unavailabl e Encounter Details Date Type Department Care Team (Late st Contact Info) Description 01/20/2020 Lab Requisition [facility] Pathology & Laboratory Medicine - [facility] [address] [place] [address] Unknown, Provider, Social History Tobacco Use Types Packs/Day Years [...] RNA BY PCR Routine 01/20/2020 10:04 EST documented in this encounter Results * HEPATITIS C AB W REFLEX TO HCV RNA BY PCR (01/20/2020 10:04 EST) Hep C Antibody Negative Negative 01/21/2020 10:35 EST [facility] Blood VENOUS BLOOD / Unknown 01/20/2020 10:04 EST 01/20/2020 21:50 EST Provider Unknown CHEMISTRY & BLOOD GA S ORDERABLES [facility] [address] [place] [address] documented in this encounter Visit Diagnoses Not on filedocumented in this encounter Care Teams Nurse'S Assistant Relationship Specialty Start Date End Date Lilibeth Phillips MD PCP - General 09/01/10 09/09/24 documented as of this encounter
--- OUTSIDE RECORDS SUMMARY | 2024-09-14 13:01 | XMS_ITS | Referral Summary ---
Author Organization [facility] Address [address] [place] [address] Care Team Providers Care Cabin Agent Name Role Phone Unavailable Primary Care Provider [...] Orientation Not on file Plan of Treatment Not on file Procedures Procedure Name Priority Date/Time Associated Diagnosis Comments HEPATITIS C AB W REFLEX TO HCV RNA BY PCR Routine 01/20/2020 10:04 EST from Last 3 Months or Most Recently Relevant to Health Maintenance Results * HEPATITIS C AB W REFLEX TO HCV RNA BY PCR (01/20/2020 10:04 EST) Hep C Antibody Negative Negative 01/21/2020 10:[address] [facility] Blood VENOUS BLOOD / Unknown 01/20/2020 10:04 EST 01/20/2020 21:50 EST Provider Unknown CHEMISTRY & BLOOD GA S ORDERABLES [facility] [address] [place] [address] from Last 3 Months or Most Recently Relevant to Health Maintenance
--- OUTSIDE RECORDS SUMMARY | 2024-09-14 13:01 | XMS_ITS | Encounter Summary ---
Author Organization [facility] Address [address] [place] [address] Care Team Providers Care Manufacturing Finance Manager Name Role Phone Md ORQUIDEA Carolina Primary Care Provider Eulalia ble Encounter Details Date Type Department Care Team (Late st Contact Info) Description 08/27/2010 Results Only [facility] Services - [facility] ([facility] [address] [place], [place] [id number] Jairo Malone MD [address] [place] [address] Social History Tobacco Use Types Packs/Day Years Used Date Smoking Tobacco: Never Assessed Sex and Gender Information Value Date Recorded Sex Assigned at Not on file Gender Identity Not on file Sexual Orientation Not on file documented as of this encounter Plan of Treatment Not on file documented as of this encounter Procedures Procedure Name Priority Date/Time Associated Diagnosis Comments SURGICAL PATHOLOGY Routine 08/27/2010 0:00 EDT documented in this encounter Results * SURGICAL PATHOLOGY (08/27/2010 0:00 EDT) Pathology Report: SURGICAL PATHOLOGY REPORT ? Reports generated via electronic interface contain original data; ? however they are lacking the format of the original report. ? Caution should be taken when reading/interpreti ng unformatted reports. ? Name: ? PRISCILLA, AMBER ? Accession #: ? [id number] ? : ? 1960 (Age: 50) ??F ? Collect Date: ? 08/27/2010 ? Location: ? [facility] ? Receive Date: ? 08/30/2010 ? Provider: JAIRO MALONE MD ? Copy to: NEIL FINE MD ? Final Pathologic Diagnosis: ? Skin of chest wall, left lower mid axillary line, punch biopsy: ? - Seborrheic keratosis. ? Microscopic Description: ? The stratum corneum is thickened by compact and basketweave orthokeratosis with formation of horn pseudocysts. ??The epidermis is acanthotic with formation of broad and anastomosing trabeculae. ??The trabeculae are composed of basaloid ?? keratinocytes with round uniform nuclei. ??The keratinocytes have a variable ? amount of melanin pigment. ??(Dr. Sue)/mpl ? Document reviewed and electronically signed by: ? LINNETTE SUE MD ? Report ??Date: 08/31/2010 16:20 ? By the signature above, the attending physician certifies that he/she has ? personally conducted a gross and/or microscopic examination of the described ? specimens and rendered or confirmed the above diagnosis. ? Specimen(s) Received: ? Left lower chest wall mid axillary line ? Clinical History: ? Present x1 yr, prob. benign ? Gross Description: ? Received in formalin labelled Priscilla, Amber and L lower chest wall is a punch biopsy of a dark brown macule measuring 0.4 cm in diameter and 0.2 cm in thickness. ??The specimen is bisected and submitted entirely in one cassette. (Shannon Bailey)/mpl ? End of Report ? [facility] 08/27/2010 08/30/2010 17: 18 EDT Jairo Malone MD PATHOLOGY ORDERABLE S [facility] [address] [place] [address] documented in this encounter Visit Diagnoses Not on filedocumented in this encounter Care Teams Manufacturing Finance Manager Relationship Specialty Start Date End Date Md Carolina MD PCP - General 08/25/10 08/31/10 documented as of this encounter
--- OUTSIDE RECORDS SUMMARY | 2024-09-14 13:01 | XMS_ITS | Encounter Summary ---
Author Organization [facility] Address [address] [place] [address] Care Team Providers Care Trial Manager Name Role Phone Lilibeth Phillips MD Primary Care Provider Unavailabl e Encounter Details Date Type Department Care Team (Late st Contact Info) Description 02/16/2022 Lab Requisition [facility] Pathology & Laboratory Medicine - [facility] [address] [place] [address] Outr Resulting Lab, Provider Social History Tobacco [...] Procedure Name Priority Date/Time Associated Diagnosis Comments ZZCOVID-19 TEST [facility] PCR Today 02/15/2022 15:00 EDT COVID-19 TESTING Routine 02/15/2022 15:0 0 EDT documented in this encounter Results * COVID-19 TEST [facility] PCR (02/15/2022 15:00 EDT) Swab 02/15/2022 15:0 0 EDT 02/16/2022 16:42 EDT Provider Outr Resulting Lab MICROBIOLOGY - GENERAL ORDERABLES [facility] [address] [place] [address] * COVID-19 TESTING (02/15/2022 15:00 EDT) COVID-19 rt-PCR Result Negative Negative 02/17/2022 12:48 EDT [facility] Comment: This test has not been FDA cleared or approved. This test has been authorized by FDA under an EUA for use by authorized laboratories. This test has been authorized only for detection of nucleic acid from 2019-nCoV, not for any other viruses or pathogens. This test is only authorized for the duration of the declaration that circumstances exist justifying the authorization of emergency use of in vitro diagnostic tests for detection and/or diagnosis of 2019-nCoV under section 564(b)(1) of Act, 21 U.S.C ?? 360bbb-3(b) (1), unless the authorization is terminated or revoked sooner. Negative results do not preclude 2019-nCoV infection and should not be used as the sole basis for treatment or other patient management decisions. Negative results must be combined with clinical observations, patient history, and epidemiological information. Testing was performed using the genie SARS-CoV-2 assay ([employer] on the Genie 6800 System Performing Lab Genie 6800 [facility] 02/17/2022 12:48 EDT [facility] Swab 02/15/2022 15:0 0 EDT 02/16/2022 16:42 EDT Provider Outr Resulting Lab MICROBIOLOGY - GENERAL ORDERABLES [facility] [address] [place] [address] documented in this encounter Visit Diagnoses Not on filedocumented in this encounter Care Teams Trial Manager Relationship Specialty Start Date End Date Lilibeth Phillips MD PCP - General 09/01/10 09/09/24 documented as of this encounter
--- OUTSIDE RECORDS SUMMARY | 2024-09-14 13:01 | XMS_ITS | Continuity of Care Document ---
Author Organization [facility] Address [address] [place] [address] Care Team Providers Care Deckhand Oyster Dredge Name Role Phone Ameya Snow Primary Care Physician [facility] Date(s): 04/11/24 - 04/11/[address] [address] Discharge Disposition: Home or Self Care Attending Physician: Lopez Kelley MD Admitting Physician: Lopez Kelley MD Referring Physician: Lopez Kelley MD Allergies, Adverse Reactions, Alerts No Known Medication Allergies Substance Reaction Severity Status SHELLFISH DERIVED Unknown Active Assessment and Plan Future Appointments Future Scheduled Tests Laboratory* Surgical Pathology [facility] 02/15/24 Functional Status 04/11/24 Other exposure to Infectious Disease Non e Immunizations Given and Recorded Vaccine Date Status [...] Refill(s) Start Date: 12/08/23 Status: Ordered cephalexin 500 mg oral capsule 500 mg = 1 cap, Oral, every 12 hr, # 6 cap, 0 Refill(s), Pharmacy: [id number], 168, cm, 04/11/24 7:40:00 EDT, Height, 65, kg, 04/11/24 7:41:00 EDT, Weight Dosing Start Date: 04/11/24 Stop Date: 04/14/24 Status: Ordered clobetasol 0.05% topical ointment 0 [...] Status Colonoscopy 02/14/24 Completed Endoscopy 04/19/23 Completed 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/flank 1 06/21/20 Completed Bypass graft, brachial-ulnar 2 10/06/16 Completed [facility] Vital Signs Most recent to oldest [Reference Range]: 1 2 3 Temperature Oral [35.8-37.3 Deg C] 36.6 Deg C (04/11/24 7:28 AM) Temperature Temporal Artery [36-38 Deg C] 35.9 Deg C *LOW* (04/11/24 11:00 AM) 35.7 Deg C *LOW* (04/11/24 9:25 AM) 35.6 Deg C *LOW* (04/11/24 9:08 AM) Temperature Temporal Artery (DegF) [97.3-100 Deg F] 96.26 Deg F *LOW* (04/11/24 9:25 AM) 96.08 Deg F *LOW* (04/11/24 9:08 AM) Peripheral Pulse Rate [60-100 bpm] 70 bpm (04/11/24 11:00 AM) 63 bpm (04/11/24 10:45 AM) 61 bpm (04/11/24 10:30 AM) Heart Rate Monitored [60-100 bpm] 70 bpm (04/11/24 11:00 AM) 63 bpm (04/11/24 10:45 AM) 61 bpm (04/11/24 10:30 AM) Respiratory Rate [12-24 br/min] 17 br/min (04/11/24 11:00 AM) 11 br/min *LOW* (04/11/24 10:45 AM) 12 br/min (04/11/24 10:30 AM) Blood Pressure [90-140/60-90 mmHg] 150/76mmHg *HI* (04/11/24 11:00 AM) 139/71mmHg (04/11/24 10:45 AM) 139/66mmHg (04/11/24 10:30 AM) Mean Arterial Pressure, Cuff [65-140 mmHg] 101 mmHg (04/11/24 11:00 AM) 94 mmHg (04/11/24 10:45 AM) 90 mmHg (04/11/24 10:30 AM) Weight 65 kg (04/11/24 7:28 AM) Weight Dosing 65.000 kg (04/11/24 7:28 AM) Weight Estimated 64.9 kg (04/03/24 10:14 AM) Height 168 cm (04/11/24 7:28 AM) Body Mass Index Estimated 22.99 kg/m2 (04/03/24 10:14 AM) Height/Length Estimated 168 cm (04/03/24 10:14 AM) Social History Social History Type Response Tobacco Never tobacco user T obacco Use:. Sex Female Hospital Discharge Instructions Patient Education 04/11/2024 08:19:15 ss Post General Anesthesia / Procedure Dischage Instructions (NCCLAMPRON) General Post Anesthesia / Sedation Discharge Instructions Activities: Do not attempt to drive a vehicle or operate power equipment of any kind for at least 24 hours after discharge from the hospital. Do not consume alcoholic beverages or other mood-altering drugs on the day of surgery. Mild irritation at needle site: Apply warm, moist pack to area for 20 minutes four times a day for 2-3 days. Call physician if persistent redness and/or drainage at needle site. Go to ER or Call the office if: Fever within 24 hours after procedure / Surgery Uncontrollable pain even when taking pain medications as prescribed 04/11/2024 08:17:16 Sacral Nerve Stimulator Implantation, Care After Sacral Nerve Stimulator Implantation, Care After The following information offers guidance on how to care for yourself after your procedure. Your health care provider may also give you more specific instructions. If you have problems or questions, contact your health care provider. What can I expect after the procedure? After the procedure, it is common to have soreness or pain in the incision area. Follow these instructions at home: Medicines ??? Take ytta-gcw-ispluuk and prescription medicines only as told by your health care provider. ??? If you were prescribed an antibiotic medicine, take it as told by your health care provider. Donot stop using the antibiotic even if you start to feel better. ??? Ask your health care provider if the medicine prescribed to you requires you to avoid driving or using machinery. Incision care ??? Follow instructions from your health care provider about how to take care of your incisions. Make sure you: ??? Wash your hands with soap and water for at least 20 seconds before and after you change your bandage (dressing). If soap and water are not available, use hand set up mechanic crown assembly machine. ??? Change your dressing as told by your health care provider. ??? Leave stitches (sutures), greg, skin glue, or adhesive strips in place. These skin closures may need to stay in place for 2 weeks or longer. If adhesive strip edges start to loosen and curl up, you may trim the loose edges. Do not remove adhesive strips completely unless your health care provider tells you to do that. ??? Check your incision area every day for signs of infection. Check for: ??? Redness, swelling, or more pain. ??? Fluid or blood. ??? Warmth. ??? Pus or a bad smell. Activity ??? Follow instructions from your health care provider about any activity restrictions. You may need to avoid: ??? Bending, twisting, or stretching. ??? Having sex. ??? Do not lift anything that is heavier than 10 lb (4.5 kg), or the limit that you are told, untilyour health care provider says that it is safe. ??? Return to your normal activities as told by your health care provider. Ask your health care provider what activities are safe for you. Bathing ??? Do not take baths, swim, or use a hot tub until your health care provider approves. Ask your health care provider if you may take showers. You may only be allowed to take sponge baths. ??? Keep the dressing dry until your health care provider says it can be removed. Using the stimulator ??? You will be given a remote control device. This device will allow you to turn your sacral nervestimulator on and off. Follow instructions from your health care provider about how to use this device. ??? Tell all of your health care providers that you have this device. Remind them that you have thedevice before they do any tests or procedures. General instructions ??? If you were given a sedative during the procedure, it can affect you for several hours. Do not drive or operate machinery until your health care provider says that it is safe. ??? Keep all follow-up visits. This is important. Your health care provider may need to adjust the stimulator over several visits until it works well for you. Contact a health care provider if: ??? Your device stops working. ??? The device is not helping your symptoms. ??? You have a fever or chills. ??? You have pus or a bad smell coming from an incision. ??? You have redness, swelling, or more pain around an incision. ??? You have fluid or blood coming from an incision. ??? An incision feels warm to the touch. Summary ??? After the procedure, it is common to have soreness or pain in the incision area. ??? Follow instructions from your health care provider about how to take care of your incision. Also, follow instructions about any activity restrictions. You may need to avoid activities that involve a lot of bending, twisting, or stretching. ??? Tell all of your health care providers that you have this device. Remind them that you have thedevice before they do any tests or procedures. ??? Contact your health care provider if your device stops working, or if it is not helping to treat your symptoms. ??? Contact your health care provider if you have a fever, or if there is redness, warmth, swelling, pain, pus, or a bad smell in or around an incision. This information is not intended to replace advice given to you by your health care provider. Make sure you discuss any questions you have with your health care provider. Document Revised: 06/11/2021 Document Reviewed: 06/11/2021 [employer] Patient Education ?? 2022 [employer]. Discharge instructions * Briana Tripp RN: PERFORM Event Display: Discharge Instructions Authored Date: [id number] AMBER DAWSON :1960 Age:63 years Sex:Female Visit Date:04/11/2024 Primary Care Physician: Karla JACKMAN, Ameya Yates [facility] Discharge Instructions We would like to thank you for allowing us to assist you with your healthcare needs. The following includes patient education materials and information regarding your injury/illness. Your Next Steps Scheduled Future Appointments Monday 10:45 AM EDT ?? With: Lopez Kelley MD Where: [facility] [address] [address] Status: Confirmed Medications What How Much When Why Instructions Next Dose New cephalexin (cephalexin 500 mg oral capsule) 1 Capsules Oral (given by mouth) Every 12 hours postop prophylaxis Duration: 3 Days Printed Prescription Unchanged acetaminophen (acetaminophen 325 mg oral capsule) 1 Capsules Oral (given by mouth) Every 4 hours as needed for as needed for fever Unchanged acetaminophen-codeine (acetaminophen-codeine 300 mg-30 mg oral tablet) Unchanged amLODIPine (amLODIPine 10 mg oral tablet) Unchanged calcium citrate Unchanged cholecalciferol (Vitamin D3) Unchanged clobetasol topical (clobetasol 0.05% topical ointment) Unchanged esomeprazole (esomeprazole 40 mg oral delayed release capsule) Unchanged fluticasone nasal (fluticasone 50 mcg/ inh nasal spray) Unchanged fosinopril (fosinopril 20 mg oral tablet) Unchanged glycerin Unchanged hydrocortisone topical (hydrocortisone 2.5% topical ointment) Unchanged ibuprofen (ibuprofen 200 mg oral tablet) Unchanged lidocaine-prilocaine topical (lidocaine-prilocaine 2.5%-2.5% topical cream) 1 Application Topical (on the skin) Once Unchanged LORazepam (LORazepam 1 mg oral tablet) Unchanged nitroglycerin (nitroglycerin 0.2% transdermal ointment) Unchanged polyethylene glycol 3350 (MiraLax) Unchanged sildenafil (sildenafil 20 mg oral tablet) for Raynauds per PCP Unchanged vitamin E Unchanged zoledronic acid (zoledronic acid 5 mg/ 100 mL intravenous solution) Every Year ?? Your Summary Your Care Team Admitting Physician - Lopez Kelley MD Attending Physician - Lopez Kelley MD Primary Care Physician - Ameya Snow DNP Referring Physician - Lopez Kelley MD Education Materials General Post Anesthesia / Sedation Discharge Instructions ? Activities: Do not attempt to drive a vehicle or operate power equipment of any kind for at least 24 hours after discharge from the hospital. ? Do not consume alcoholic beverages or other mood-altering drugs on the day of surgery. ? Mild irritation at needle site: Apply warm, moist pack to area for 20 minutes four times a day for 2-3 days. ? Call physician if persistent redness and/or drainage at needle site. ? Go to ER or Call the office if: ? Fever within 24 hours after procedure / Surgery ? Uncontrollable pain even when taking pain medications as prescribed Sacral Nerve Stimulator Implantation, Care After The following information offers guidance on how to care for yourself after your procedure. Your health care provider may also give you more specific instructions. If you have problems or questions, contact your health care provider. What can I expect after the procedure? After the procedure, it is common to have soreness or pain in the incision area. Follow these instructions at home: Medicines ? Take qtwi-wje-zxtpoav and prescription medicines only as told by your health care provider. ? If you were prescribed an antibiotic medicine, take it as told by your health care provider. Do notstop using the antibiotic even if you start to feel better. ? Ask your health care provider if the medicine prescribed to you requires you to avoid driving or using machinery. Incision care ? Follow instructions from your health care provider about how to take care of your incisions. Make sure you: ? Wash your hands with soap and water for at least 20 seconds before and after you change your bandage (dressing). If soap and water are not available, use hand set up mechanic crown assembly machine. ? Change your dressing as told by your health care provider. ? Leave stitches (sutures), greg, skin glue, or adhesive strips in place. These skin closures may need to stay in place for 2 weeks or longer. If adhesive strip edges start to loosen and curl up, you may trim the loose edges. Do not remove adhesive strips completely unless your health care provider tells you to do that. ? Check your incision area every day for signs of infection. Check for: ? Redness, swelling, or more pain. ? Fluid or blood. ? Warmth. ? Pus or a bad smell. Activity ? Follow instructions from your health care provider about any activity restrictions. You may need toavoid: ? Bending, twisting, or stretching. ? Having sex. ? Do not lift anything that is heavier than 10 lb (4.5 kg), or the limit that you are told, until your health care provider says that it is safe. ? Return to your normal activities as told by your health care provider. Ask your health care provider what activities are safe for you. Bathing ? Do not take baths, swim, or use a hot tub until your health care provider approves. Ask your healthcare provider if you may take showers. You may only be allowed to take sponge baths. ? Keep the dressing dry until your health care provider says it can be removed. Using the stimulator ? You will be given a remote control device. This device will allow you to turn your sacral nerve stimulator on and off. Follow instructions from your health care provider about how to use this device. ? Tell all of your health care providers that you have this device. Remind them that you have the device before they do any tests or procedures. General instructions ? If you were given a sedative during the procedure, it can affect you for several hours. Do not drive or operate machinery until your health care provider says that it is safe. ? Keep all follow-up visits. This is important. Your health care provider may need to adjust the stimulator over several visits until it works well for you. Contact a health care provider if: ? Your device stops working. ? The device is not helping your symptoms. ? You have a fever or chills. ? You have pus or a bad smell coming from an incision. ? You have redness, swelling, or more pain around an incision. ? You have fluid or blood coming from an incision. ? An incision feels warm to the touch. Summary ? After the procedure, it is common to have soreness or pain in the incision area. ? Follow instructions from your health care provider about how to take care of your incision. Also, follow instructions about any activity restrictions. You may need to avoid activities that involve a lot of bending, twisting, or stretching. ? Tell all of your health care providers that you have this device. Remind them that you have the device before they do any tests or procedures. ? Contact your health care provider if your device stops working, or if it is not helping to treat your symptoms. ? Contact your health care provider if you have a fever, or if there is redness, warmth, swelling, pain, pus, or a bad smell in or around an incision. This information is not intended to replace advice given to you by your health care provider. Make sure you discuss any questions you have with your health care provider. Document Revised: 06/11/2021 Document Reviewed: 06/11/2021 [employer] Patient Education ?? 2022 [employer]. Patient/[employer] Signature Patient Name:AMBER DAWSON I have received this information and my questions have been answered. Patient/[employer] Name: Patient/[employer] Signature: Relationship to Patient: Witness Name/Signature: Date: Electronically Signed on: 04/11/2024 09:20 EDTSigned by:YAJAIRA History and physical note * Lopez Kelley MD: PERFORM Event Display: History and Physical Authored Date: [id number] AMBER DAWSON :1960 Age:63 years Sex:Female Visit Date:04/11/2024 Primary Care Physician: Ameya Snow DNP History of Present Illness 63 year old female with ongoing fecal incontinence presents today for InterStim placement.? Fecal incontinence has been an issue for some time. She has tried conservative management with lifestyle modification and OTC medications including fiber supplements and antidiarrheals, however the incontinence continues to effect her daily quality of life. Colonoscopy 02/14, notable for mild diverticular disease in the descending and sigmoid colon. She does have a history of hyperplastic polyps; denies family history of colon polyps, CRC, IBD, or other pertinent GI pathology. ?? Incontinence type? Frequency Solid Stool?Sometimes Liquid Stool?Usually Gas ??Always Wears Pad ??Always Lifestyle Altered ??Usually ?? Total WEXNER score: 16 ? She underwent PNE with excellent results, >50% improvement in symptoms. ?? No significant change in past medical history since most recent office visit. ? Review of Systems A complete 12 point ROS was obtained and negative except for those mentioned in the HPI.? Physical Exam ?? General: NAD, A+O x4 ?? Pulm: Non-labored breathing pattern ?? Cardio: RRR ?? Abdominal: Soft, NT, ND ?? Assessment/Plan Fecal incontinence??[id number] 63 year old female with ongoing fecal incontinence presents today for InterStim placement.? Amber experienced excellent results from the PNE. After discussion, she has elected to proceed with placement of InterStim device. ?? Laterality:??Left ?? Pre-intervention Wexner score = 16 ?? Regarding sacral nerve stimulation (SNS): Prospective, multicenter study done by Elmer et al demonstrated an 83% therapeutic success at 12 months and 41% of patients achieved 100% continence. In long-term follow-up at 3 years, success was demonstrated in 86% of patients and 40% achieved complete continence. The most common reported adverse events were implant site pain, paresthesias, change in sensation of stimulation and infection. Themajority of adverse events occurred within the first year of implant ?? All questions answered. Patient understood and agreed with the above plan. ?? I have reviewed the EMR, including records from PCP, specialists along with review of imaging/diagnostics, which were discussed with the patient where applicable to current presentation. Electronically Signed on 04/11/2024 08:05 EDT Lopez Kelley MD Patient Care team information Care Team Personnel Name: Ameya Snow DNP Position: No Access Member Role: Informed Provider Address: Address: [address] [address] Care Team Related Persons Name: MAHNAZ DAWSON Name: ANGELO ESCALONA
--- OUTSIDE RECORDS SUMMARY | 2024-09-14 13:01 | XMS_ITS | Encounter Summary ---
Author Organization [facility] Address [address] [place] [address] Care Team Providers Care Needle Loom Operator Name Role Phone Md ORQUIDEA Carolina Primary Care Provider Eulalia churchill Encounter Details Date Type Department Care Team (Late st Contact Info) Description 08/24/2010 Results Only [facility] Medicine - [address] [address] Lilibeth Phillips MD Social History Tobacco Use Types Packs/Day Years Used Date Smoking Tobacco: Never Assessed Sex and Gender Information Value Date Recorded Sex Assigned at Not on file Gender Identity Not on file Sexual Orientation Not on file documented as of this encounter Plan of Treatment Not on file documented as of this encounter Procedures Procedure Name Priority Date/Time Associated Diagnosis Comments CYTOPATHOLOGY Routine 08/24/2010 0:00 EDT documented in this encounter Results * CYTOPATHOLOGY (08/24/2010 0:00 EDT) Pathology Report: CYTOPATHOLOGY REPORT ? Reports generated via electronic interface contain original data; ? however they are lacking the format of the original report. ? Caution should be taken when reading/interpreti ng unformatted reports. ? Name: ? AMBER WELLS ? Accession #: ? [id number] ? : ? 1960 (Age: 50) ??F ?Collect Date: ? 08/24/2010 ? Location: ? [facility] ? Receive Date: ? 08/25/2010 ? Provider: ?LILIBETH FINE MD ? Copy to: ? Specimen/Source: ?Pap Test, Endocervix, ThinPrep Imaging System with ? manual evaluation ? Last Menstrual Period: ? Other: ? HPVA - HPV testing requested if ASC-US on the current ThinPrep Pap test. ? SPECIMEN ADEQUACY ? Satisfactory for Evaluation ? - transformation zone component present ? - lack of pertinent clinical information (e.g. LMP not provided) ? GENERAL CATEGORIZATION ? Other, see interpretation ? INTERPRETATION ? Reactive cellular changes associated with inflammation present (includes ?? repair). ? Endometrial cells present in a woman equal to or greater than age 40. ? Negative for Intraepithelial Lesion. ? EDUCATIONAL NOTES/RECOMMENDATI ONS ? Benign appearing endometrial cells on Pap tests are usually a normal ? finding in women with regular menstrual cycles, especially if the Pap test was ?? collected during the first half of the menstrual cycle. ? There is data showing that endometrial cells on Pap tests may be associated with endometrial/uterin e abnormalities in post menopausal women or in perimenopausal women with abnormal bleeding. ? There is limited data on the significance of benign endometrial cells in post ?? menopausal women on HRT. ??Clinical correlation is recommended. ? Note: ??The Pap test is not an accurate test for the screening of endometrial ? lesions and should not be used as a follow up in patients with clinical ? suspicion of endometrial pathology. ? Document reviewed and electronically signed by: ? GLADWYN SHASTA MD [facility] ? Report Date: ??08/31/2010 18:03 ? End of Report ? [facility] 08/24/2010 08/25/2010 Lilibeth Phillips MD PATHOLOGY ORDERABLES Performing Organization Address City/State/[facility] Co de Phone Number [facility] [address] [place] [address] documented in this encounter Visit Diagnoses Not on filedocumented in this encounter Care Teams Needle Loom Operator Relationship Specialty Start Date End Date Md Carolina MD PCP - General 08/25/10 08/31/10 documented as of this encounter
--- OUTSIDE RECORDS SUMMARY | 2024-09-14 13:01 | XMS_ITS | Continuity of Care Document ---
Author Organization [facility] Address [address] [place] [address] Care Team Providers Care Rink Rat Name Role Phone Ameya Snow Primary Care Physician Encounter [facility] Date(s): 02/15/24 - 02/15/[address] [address] Encounter Diagnosis Encounter for screening for malignant neoplasm of colon(Final) - Personal history of colonic polyps(Final) - Diverticulosis of large intestine without perforation or abscess without bleeding(Final) - Discharge Disposition: Home or Self Care Attending Physician: Lopez Kelley MD Admitting Physician: Lopez Kelley MD Referring Physician: Lopez Kelley MD Allergies, Adverse Reactions, Alerts No Known Medication Allergies Substance Reaction Severity Status SHELLFISH DERIVED Unknown Active Assessment and Plan Future Appointments Future Scheduled Tests Laboratory* Surgical Pathology [facility] 02/15/24 Functional Status 02/15/24 ADLs Independent Family Member Travel History No recent t ravel Recent Travel History No recent travel Other exposure to Infectious Disease Non e Immunizations Given and Recorded Vaccine Date Status Refusal Reason SARS-CoV-2 (COVID-19) mRNA-1273 vaccine 07/12/21 R ecorded SARS-CoV-2 (COVID-19) mRNA-1273 vaccine 03/01/21 R ecorded SARS-CoV-2 (COVID-19) mRNA-1273 vaccine 02/01/21 R ecorded influenza virus vaccine, live 08/12/20 Recorded influenza virus vaccine, live 01/09/20 Recorded influenza virus vaccine, live 10/07/16 Recorded influenza virus vaccine, live 9/19/14 Recorded zoster vaccine, inactivated 07/16/20 Recorded zoster [...] Procedure Date Related Diagnosis Body Site Status Endoscopy 04/19/23 Completed Vital Signs Most recent to oldest [Reference Range]: 1 2 3 Temperature Oral [35.8-37.3 Deg C] 36.6 Deg C (02/15/24 2:02 PM) Temperature Temporal Artery [36-38 Deg C] 36.1 Deg C (02/15/24 3:15 PM) 36.1 Deg C (02/15/24 2:58 PM) Temperature Temporal Artery (DegF) [97.3-100 Deg F] 96.98 Deg F *LOW* (02/15/24 3:15 PM) 96.98 Deg F *LOW* (02/15/24 2:58 PM) Peripheral Pulse Rate [60-100 bpm] 107 bpm *HI* (02/15/24 4:15 PM) 69 bpm (02/15/24 4:00 PM) 62 bpm (02/15/24 3:45 PM) Heart Rate Monitored [60-100 bpm] 74 bpm (02/15/24 4:15 PM) 71 bpm (02/15/24 4:00 PM) 69 bpm (02/15/24 3:45 PM) Respiratory Rate [12-24 br/min] 14 br/min (02/15/24 4:15 PM) 18 br/min (02/15/24 4:00 PM) 17 br/min (02/15/24 3:45 PM) Blood Pressure [90-140/60-90 mmHg] 148/81mmHg *HI* (02/15/24 4:15 PM) 166/85mmHg *HI* (02/15/24 4:00 PM) 161/85mmHg *HI* (02/15/24 3:45 PM) Mean Arterial Pressure, Cuff [65-140 mmHg] 103 mmHg (02/15/24 4:15 PM) 112 mmHg (02/15/24 4:00 PM) 110 mmHg (02/15/24 3:45 PM) Weight 64 kg (02/15/24 2:02 PM) Weight Dosing 64.000 kg (02/15/24 2:02 PM) Weight Estimated 64.9 kg (02/09/24 1:11 PM) Height 168 cm (02/15/24 2:02 PM) Body Mass Index 22.68 kg/m2 (02/15/24 2:02 PM) Body Mass Index Estimated 22.99 kg/m2 (02/09/24 1:11 PM) Height/Length Estimated 168 cm (02/09/24 1:11 PM) Social History Social History Type Response Tobacco Never tobacco user T obacco Use:. Sex Female Hospital Discharge Instructions Patient Education 02/15/2024 14:07:24 ss colonoscopy discharge instructions (CUSTOM) Overall normal colonoscopy; only finding was mild diverticulosis. Plan for next screening in 7 years. The office will call you regarding the [facility] office visit. COLONOSCOPY / SIGMOIDOSCOPY Following day: Return to full activity, including work. Diet: Eat and drink normally, unless instructed otherwise. Treatment for common after affects: Mild abdominal pain, bloating, or excessive gas: Rest, eat lightly and use a heating pad. Symptoms to watch for and report to your physician: SEVERE abdominal pain or bloating. Fever within 24 hours after procedure. A large amount of rectal bleeding. (A small amount of blood from the rectum is not serious, especially if hemorrhoids are present.) If a polyp has been removed- for the next seven days: Do not take aspirin. If you did NOT stop taking aspirin before your procedure, continue taking it even if you???ve had a polyp removed. If bright red rectal bleeding occurs, call your physician. If you have had a Colonoscopy: Do not attempt to drive a vehicle [...] persistent redness and/or drainage at needle site. In the event of any problems after surgery, do not hesitate to contact your doctor, [facility] , or the Emergency Room at [phone]. Diagnosis: Doctor: Follow Up Appointment: Follow Up Care 01/11/2024 11:14:54 With:Lopez Kelley MD Address: [address] [address]- When: Unknown Comments:Screening??colonoscopy in??7 years. Discharge instructions * Antonietta Archuleta: PERFORM Event Display: Discharge Instructions Authored Date: [id number] JACOB DAWSNO :1960 Age:63 years Sex:Female Visit Date:02/15/2024 Primary Care Physician: Ameya Snow [facility] Hospital Discharge Instructions We would like to thank you for allowing us to assist you with your healthcare needs. The following includes patient education materials and information regarding your injury/illness. Your Next Steps Discharge Orders Discharge Patient Instructions, Rest today. Resume diet and activities as tolerated. Scheduled Future Appointments Monday 10:15 AM EDT ?? With: Felisa Landers PT Where: [facility] [address] [place] [address] Status: Confirmed Monday 11:15 AM EDT ?? With: Felisa Landers PT Where: [facility] [place] [address] Status: Confirmed Follow Up Appointments Follow Up with??Lopez Kelley MD Why: Screening??colonoscopy in??7 years. Where: [facility] [address] [place] [id number]- Future Orders Surgical Pathology [facility], AP Specimen, Routine Collect, 02/15/24, Once, Nurse collect, Print Label, Order for future visit Your Summary Your Care Team Admitting Physician - Lopez Kelley MD Attending Physician - Lopez Kelley MD Primary Care Physician - Ameya Snow DNP Referring Physician - Lopez Kelley MD Education Materials Overall normal colonoscopy; only finding was mild diverticulosis. Plan for next screening in 7 years. The office will call you regarding the [facility] office visit. ? COLONOSCOPY / SIGMOIDOSCOPY ? Following day: Return to full activity, including work. Diet: Eat and drink normally, unless instructed otherwise. ? Treatment for common after affects: Mild abdominal pain, bloating, or excessive gas: Rest, eat lightly and use a heating pad. ? Symptoms to watch for and report to your physician: SEVERE abdominal pain or bloating. ? Fever within 24 hours after procedure. ? A large amount of rectal bleeding. (A small amount of blood from the rectum is not serious, especially if hemorrhoids are present.) ? If a polyp has been removed- for the next seven days: Do not take aspirin. If you did NOT stop taking aspirin before your procedure, continue taking it even if you???ve had a polyp removed. ? If bright red rectal bleeding occurs, call your physician. ? If you have had a Colonoscopy: Do not attempt to drive a vehicle [...] redness and/or drainage at needle site. ? In the event of any problems after surgery, do not hesitate to contact your doctor, [facility] , or the Emergency Room at [phone]. Diagnosis: Doctor: Follow Up Appointment: Patient/Product Safety Test Engineer Signature Patient Name:JACOB DAWSON I have received this information and my questions have been answered. Patient/Product Safety Test Engineer Name: Patient/Product Safety Test Engineer Signature: Relationship to Patient: Witness Name/Signature: Date: Electronically Signed on: 02/15/2024 16:04 EDTSigned by:AGA History and physical note * Lopez Kelley MD: PERFORM Event Display: History and Physical Authored Date: [id number] JACOB DAWSON :1960 Age:63 years Sex:Female Visit Date:02/15/2024 Primary Care Physician: Karla JACKMAN, Ameya Yates DNP Endoscopy H&P ?? Date of Exam:??02/15/2024 Physician: Lopez Kelley MD Procedure:??Colonoscopy ?? Indication: Asymptomatic screening??yes Most recent colonoscopy at [facility]; small polyp removed, hyperplastic. ? Change in bowel habit??no Rectal bleeding??no Abdominal pain??no Follow-up cancer or polyp??no Abnormal sigmoidoscopy??no Abnormal BE??no IBD??no Anemia??no ?? 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 Past Surgical History: ?Date?Procedure?Site?04/20/2023 ?Endoscopy ? Family History: No qualifying data available. ?? Denies FH of colon polyps, CRC, IBD or other pertinent GI pathology. ?? Allergies:??No Known Medication Allergies SHELLFISH DERIVED ?? Anticoagulation/Aspirin:? Home Medications (22) Active acetaminophen 325 mg oral capsule??325 mg = 1 cap, PRN, Oral, every 4 hr acetaminophen-codeine 300 mg-30 mg oral tablet?? amitriptyline 10 mg oral tablet?? amLODIPine 10 mg oral tablet?? calcium citrate?? cephalexin?? clobetasol 0.05% topical ointment?? esomeprazole 40 mg oral delayed release capsule?? Fish Oil 1000 mg oral capsule?? fluticasone 50 mcg/inh nasal spray?? fosinopril 20 mg oral tablet?? glycerin?? hydrocortisone 2.5% topical ointment?? ibuprofen 200 mg oral tablet?? lidocaine-prilocaine 2.5%-2.5% topical cream??1 jayne, Topical, Once LORazepam 1 mg oral tablet?? MiraLax?? nitroglycerin 0.2% transdermal ointment?? sildenafil 20 mg oral tablet?? Vitamin D3?? vitamin E?? zoledronic acid 5 mg/100 mL intravenous solution? Vital Signs: Temperature?36.6 ?(14:02) Systolic Blood Pressure?150 ?(14:02) Diastolic Blood Pressure?90 ?(14:02) Pulse?75 ?(14:02) SpO2?99 ?(14:02) Respiratory Rate?18 ?(14:02) ? Physical Exam: General - NAD Pulmonary - Non labored breathing Cardio - RRR Abdomen - Soft, NT, ND ?? Risk, benefits and alternatives to the procedure were discussed with the patient in detail. Risk, including but not limited to, bleeding, infection, perforation, missed lesions, need to reoperate, failure to resolve symptoms and pain were discussed with the patient who understood these risks and requested to proceed as planned.? Electronically Signed on 02/15/24 02:58 PM Lopez Kelley MD Patient Care team information Care Team Personnel Name: Karla JACKMAN, Ameya Yates DNP Position: No Access Member Role: Informed Provider Address: Address: [address] [place] [address] Care Team Related Persons Name: MAHNAZ DAWSON Name: ANGELO ESCALONA
--- OUTSIDE RECORDS SUMMARY | 2024-09-14 13:01 | XMS_ITS | Continuity of Care Document ---
Author Organization [facility] Address [address] [place] [address] Care Team Providers Care Container Repairer Name Role Phone Ameya Snow Primary Care Physician ( [phone] Encounter [facility] Date(s): 09/11/23 - 09/11/[address] [address] Discharge Disposition: Home or Self Care Attending Physician: Nguyễn Underwood MD Admitting Physician: Nguyễn Underwood MD Referring Physician: Nguyễn Underwood MD Allergies, Adverse Reactions, Alerts No Known [...] Tolerated well Results Laboratory List Name Date Albumin Level 09/11/23 Basic Metabolic Panel 09/11/23 CBC w/ Diff 09/11/23 Microalbumin/Creatinine Ratio Urine 08/21 02/09 PTH Intact [facility] 09/11/23 Protein/Creatinine Ratio Urine 09/11/23 Vitamin D, 25-OH Total [facility] 09/11/23 Automated Diff 09/11/23 Most recent to oldest [Reference Range]: 1 2 WBC [5.0-10.0 x10^3/mcL] 8.1 x10^3/mcL (09/11/23 3:52 PM) RBC [4.1-5.3 x10^6/mcL] 4.4 x10^6/mcL (09/11/23 3:52 PM) Neutro Auto [40.0-75.0 %] 69.5 % (09/11/23 3:52 PM) Lymph Auto [20.0-50.0 %] 22.5 % (09/11/23 3:52 PM) Rock Auto [2.0-15.0 %] 5.1 % (09/11/23 3:52 PM) Basophil Auto [0.0-1.0 %] 0.6 % (09/11/23 3:52 PM) BUN [7-18 mg/dL] 25 mg/dL *HI* (09/11/23 3:52 PM) Glucose Level [74-106 mg/dL] 102 mg/dL (09/11/23 3:52 PM) Potassium Level [3.5-5.1 mmol/L] 4.1 mmo l/L (09/11/23 3:52 PM) MCV [80.0-96.0 fL] 96.8 fL *HI* (09/11/23 3:52 PM) MCHC [31.0-35.0 g/dL] 33.6 g/dL (09/11/23 3:52 PM) Sodium Level [136-145 mmol/L] 138 mmol/L (09/11/23 3:52 PM) Hct [37.0-47.0 %] 42.8 % (09/11/23 3:52 PM) Calcium Level [8.5-10.1 mg/dL] 9.4 mg/dL (09/11/23 3:52 PM) Albumin Level [3.4-5.0 g/dL] 4.0 g/dL (09/11/23 3:52 PM) MCH [26.0-32.0 pg] 32.6 pg *HI* (09/11/23 3:52 PM) Neutro Absolute 5.6 x10^3/mcL *NA* (09/11/23 3:52 PM) Hgb [12.0-16.0 g/dL] 14.4 g/dL (09/11/23 3:52 PM) Platelets [130-450 x10^3/mcL] 308 x10^3/ mcL (09/11/23 3:52 PM) CO2 [21-32 mmol/L] 26 mmol/L (09/11/23 3:52 PM) eGFR Non-AA [>=60] 57 *LOW* (09/11/23 3:52 PM) eGFR AA [>=60] 57 *LOW* (09/11/23 3:52 PM) U Creatinine 159 mg/dL *NA* (09/11/23 3:52 PM) 159 mg/dL *NA* (09/11/23 3:52 PM) Chloride Level [98-107 mmol/L] 103 mmol/ L (09/11/23 3:52 PM) RDW-CV [11.5-14.5 %] 13.4 % (09/11/23 3:52 PM) U Prot/Creat 0.6 *NA* (09/11/23 3:52 PM) U Microalb/Creat [0.0-30.0 mcg/mg] 401.3 mcg/mg *HI* (09/11/23 3:52 PM) U Microalb [0.0-20.0] 638.1 *HI* (09/11/23 3:52 PM) Imm Gran Auto [0.0-0.9 %] 0.2 % (09/11/23 3:52 PM) Slide Review Not Indicated (09/11/23 3:52 PM) Creatinine Level [0.55-1.02 mg/dL] 1.10 mg/dL *HI* (09/11/23 3:52 PM) U Protein 99.1 mg/dL *NA* (09/11/23 3:52 PM) PTH Intact [facility] [19-88 pg/mL] 60 pg/mL 1 *NA* (09/11/23 3:52 PM) Eos, Auto [1.0-6.0 %] 2.1 % (09/11/23 3:52 PM) Vitamin D, 25-OH, Total [facility] [30-100 ng/m L] 41 ng/mL 2 *NA* (09/11/23 3:52 PM) 1Result Comment: Test performed [place] [address] 2Result Comment: Vitamin D 25,OH Interpretive Ranges: Deficiency: <10.0 ng/mL Insufficiency: 10.0 - 30.0 ng/mL Sufficiency: 30.0 - 100.0 ng/mL Toxicity: >100.0 ng/mL Test performed [place] [address] Social History Social History Type Response Sex Female Patient Care team information Care Team Personnel Name: Ameya Snow DNP Position: No Access Member Role: Primary Care Physician Address: Address: [address], [facility] [address] [place] [address] Care Team Related Persons Name: MAHNAZ DAWSON Name: ANGELO ESCALONA
--- OUTSIDE RECORDS SUMMARY | 2024-09-14 13:01 | XMS_ITS | Continuity of Care Document ---
Author Organization [facility] Address [address] [place] [address] Care Team Providers Care Webfocus Developer Name Role Phone Ameya Snow Primary Care Physician Encounter [facility] Date(s): 05/06/24 - 05/06/24 [facility] [address] [place] [address] Encounter Diagnosis Dizziness(Discharge Diagnosis) - 05/06/24 Discharge Disposition: Home or Self Care Attending Physician: Kiet Nicolas MD Admitting Physician: Kiet Nicolas MD Allergies, Adverse Reactions, Alerts No Known Medication Allergies Substance Reaction Severity Status SHELLFISH DERIVED Unknown Active Assessment and Plan Extracted from: Title:ED Provider Note Author:Kev Mullins MD Date:05/06/24 Assessment/Plan 1.??Dizziness??R42 Ordered: meclizine 25 mg oral tablet, 25 mg = 1 tab, Oral, TID, PRN as needed for dizziness, # 30 tab, 0 Refill(s), 05/14/24 23:59:00 EDT, Pharmacy: [facility], 168, cm, 04/11/24 7:40:00 EDT, Height, 65, kg, 04/11/24 7:41:00 EDT, Weight Dosing Discharge Patient, 05/06/24 16:43:00 EDT, Home Independently, Constant Indicator ?? Patient Education Dizziness Follow Up With When Contact Information Ameya Snow DNP Within 1 week [facility] [address] [place] [address] ?? Additional Instructions: Future Scheduled Tests Laboratory* Surgical Pathology [facility] 02/15/24 Immunizations Given and Recorded Vaccine Date [...] hr, # 6 cap, 0 Refill(s), Pharmacy: [facility], 168, cm, 04/11/24 7:40:00 EDT, Height, [...] 0 Refill(s) Start Date: 12/08/23 Status: Ordered meclizine 25 mg oral tablet 25 mg = 1 tab, Oral, TID, PRN as needed for dizziness, # 30 tab, 0 Refill(s), 05/14/24 10:59:00 PM CDT, Pharmacy: [facility], 168, cm, 04/11/24 7:40:00 EDT, Height, 65, kg, 04/11/24 7:41:00 EDT, Weight Dosing Start Date: 05/06/24 Stop Date: 05/14/24 Status: Ordered MiraLax 0 Refill(s) Start Date: [...] Procedure Date Related Diagnosis Body Site Status Surgical procedure 1 04/10/24 Comp leted Colonoscopy 02/14/24 Completed Endoscopy 04/19/23 Completed 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/flank 2 06/21/20 Completed Bypass graft, brachial-ulnar 3 10/06/16 Completed 1Lead implantation, left S3 [employer] Interstim [facility] Results Laboratory List Name Date CBC w/ Diff 05/06/24 Comprehensive Metabolic Panel 05/06/24 Magnesium Level 05/06/24 TSH w/ Rflx to Free T4 05/06/24 Troponin-I 05/06/24 Automated Diff 05/06/24 Most recent to oldest [Reference Range]: 1 WBC [5.0-10.0 x10^3/mcL] 7.1 x10^3/mcL (05/06/24 2:22 PM) RBC [4.1-5.3 x10^6/mcL] 4.4 x10^6/mcL (05/06/24 2:22 PM) Neutro Auto [40.0-75.0 %] 65.5 % (05/06/24 2:22 PM) Lymph Auto [20.0-50.0 %] 26.1 % (05/06/24 2:22 PM) [place] Auto [2.0-15.0 %] 5.9 % (05/06/24 2:22 PM) Basophil Auto [0.0-1.0 %] 0.7 % (05/06/24 2:22 PM) BUN [7-18 mg/dL] 24 mg/dL *HI* (05/06/24 2:22 PM) Glucose Level [74-106 mg/dL] 122 mg/dL *HI* (05/06/24 2:22 PM) Potassium Level [3.5-5.1 mmol/L] 4.7 mmo l/L 1 (05/06/24 2:22 PM) MCV [80.0-96.0 fL] 95.7 fL (05/06/24 PM) AST [15-37 unit/L] 15 unit/L (05/06/24 PM) ALT [14-59 unit/L] 23 unit/L (05/06/24 PM) MCHC [31.0-35.0 g/dL] 33.7 g/dL (05/06/24 PM) Troponin-I [0.0-51.4 pg/mL] 7.3 pg/mL (05/06/24 PM) Sodium Level [136-145 mmol/L] 139 mmol/L (05/06/24 PM) Hct [37.0-47.0 %] 41.8 % (05/06/24 PM) Calcium Level [8.5-10.1 mg/dL] 9.2 mg/dL (05/06/24 PM) Albumin Level [3.4-5.0 g/dL] 3.9 g/dL (05/06/24 PM) Protein Total [6.4-8.2 g/dL] 7.4 g/dL (05/06/24: PM) MCH [26.0-32.0 pg] 32.3 pg *HI* (05/06/24 PM) Magnesium Level [1.8-2.4 mg/dL] 1.9 mg/d L (05/06/24 PM) Neutro Absolute 4.6 x10^3/mcL *NA* (05/06/24 PM) Bilirubin Total [0.2-1.0 mg/dL] 0.3 mg/d L (05/06/24: PM) Hgb [12.0-16.0 g/dL] 14.1 g/dL (05/06/24 PM) Alk Phos [46-146 unit/L] 62 unit/L (05/06/24: PM) Platelets [130-450 x10^3/mcL] 325 x10^3/ mcL (05/06/24: PM) CO2 [21-32 mmol/L] 26 mmol/L (05/06/24 2:22 PM) TSH [0.358-3.740 mcIntlUnit/mL] 1.082 mc IntlUnit/mL (05/06/24 2:22 PM) eGFR Non-AA [>=60] 48 *LOW* (05/06/24 2:22 PM) eGFR AA [>=60] 48 *LOW* (05/06/24 2:22 PM) Chloride Level [98-107 mmol/L] 102 mmol/ L (05/06/24 2:22 PM) RDW-CV [11.5-14.5 %] 13.1 % (05/06/24 2:22 PM) Imm Gran Auto [0.0-0.9 %] 0.3 % (05/06/24 2:22 PM) Creatinine Level [0.55-1.02 mg/dL] 1.27 mg/dL *HI* (05/06/24 2:22 PM) Eos, Auto [1.0-6.0 %] 1.5 % (05/06/24 2:22 PM) 1Result Comment: Sample appears hemolyzed, some results may be affected Vital Signs Most recent to oldest [Reference Range]: 1 2 3 Temperature Temporal Artery [36-38 Deg C] 36.3 Deg C (05/06/24 1:48 PM) Peripheral Pulse Rate [60-100 bpm] 71 bpm (05/06/24 1:48 PM) Heart Rate Monitored [60-100 bpm] 73 bpm (05/06/24 4:41 PM) 69 bpm (05/06/24 3:30 PM) 71 bpm (05/06/24 2:20 PM) Respiratory Rate [12-24 br/min] 15 br/min (05/06/24 4:41 PM) 14 br/min (05/06/24 3:30 PM) 15 br/min (05/06/24 2:20 PM) Blood Pressure [90-140/60-90 mmHg] 141/76mmHg *HI* (05/06/24 4:41 PM) 139/78mmHg (05/06/24 3:30 PM) 139/76mmHg (05/06/24 2:20 PM) Mean Arterial Pressure, Cuff [65-140 mmHg] 98 mmHg (05/06/24 4:41 PM) 98 mmHg (05/06/24 3:30 PM) 97 mmHg (05/06/24 2:20 PM) Weight Estimated 66.22 kg (05/06/24 1:48 PM) Body Mass Index Estimated 23.74 kg/m2 (05/06/24 1:48 PM) Height/Length Estimated 167 cm (05/06/24 1:48 PM) Social History Social History Type Response Tobacco Never tobacco user T obacco Use:. Sex Female Hospital Discharge Instructions Patient Education 05/06/2024 15:41:56 Dizziness Dizziness Dizziness is a common problem. It is a feeling of unsteadiness or light- headedness. You may feel like you are about to faint. Dizziness can lead to injury if you stumble or fall. Anyone can become dizzy, but dizziness is more common in older adults. This condition can be caused by a number of things, including medicines, dehydration, or illness. Follow these instructions at home: Eating and drinking ??? Drink enough fluid to keep your urine pale yellow. This helps to keep you from becoming dehydrated. Try to drink more clear fluids, such as water. ??? Do not drink alcohol. ??? Limit your caffeine intake if told to do so by your health care provider. Check ingredients andnutrition facts to see if a food or beverage contains caffeine. ??? Limit your salt (sodium) intake if told to do so by your health care provider. Check ingredients and nutrition facts to see if a food or beverage contains sodium. Activity ??? Avoid making quick movements. ??? Rise slowly from chairs and steady yourself until you feel okay. ??? In the morning, first sit up on the side of the bed. When you feel okay, stand slowly while youhold onto something until you know that your balance is good. ??? If you need to manager protein one place for a long time, move your legs often. Tighten and relax the muscles in your legs while you are standing. ??? Do not drive or use machinery if you feel dizzy. ??? Avoid bending down if you feel dizzy. Place items in your home so that they are easy for you toreach without leaning over. Lifestyle ??? Do not use any products that contain nicotine or tobacco. These products include cigarettes, chewing tobacco, and vaping devices, such as e-cigarettes. If you need help quitting, ask your health care provider. ??? Try to reduce your stress level by using methods such as yoga or meditation. Talk with your health care provider if you need help to manage your stress. General instructions ??? Watch your dizziness for any changes. ??? Take adjf-zrr-unwfote and prescription medicines only as told by your health care provider. Talk with your health care provider if you think that your dizziness is caused by a medicine that you are taking. ??? Tell a friend or a family member that you are feeling dizzy. If he or she notices any changes in your behavior, have this person call your health care provider. ??? Keep all follow-up visits. This is important. Contact a health care provider if: ??? Your dizziness does not go away or you have new symptoms. ??? Your dizziness or light-headedness gets worse. ??? You feel nauseous. ??? You have reduced hearing. ??? You have a fever. ??? You have neck pain or a stiff neck. ??? Your dizziness leads to an injury or a fall. Get help right away if: ??? You vomit or have diarrhea and are unable to eat or drink anything. ??? You have problems talking, walking, swallowing, or using your arms, hands, or legs. ??? You feel generally weak. ??? You have any bleeding. ??? You are not thinking clearly or you have trouble forming sentences. It may take a friend or family member to notice this. ??? You have chest pain, abdominal pain, shortness of breath, or sweating. ??? Your vision changes or you develop a severe headache. These symptoms may represent a serious problem that is an emergency. Do not wait to see if the symptoms will go away. Get medical help right away. Call your local emergency services (911 in the [place] Do not drive yourself to the hospital. Summary ??? Dizziness is a feeling of unsteadiness or light-headedness. This condition can be caused by a number of things, including medicines, dehydration, or illness. ??? Anyone can become dizzy, but dizziness is more common in older adults. ??? Drink enough fluid to keep your urine pale yellow. Do not drink alcohol. ??? Avoid making quick movements if you feel dizzy. Monitor your dizziness for any changes. This information is not intended to replace advice given to you by your health care provider. Make sure you discuss any questions you have with your health care provider. Document Revised: 10/11/2021 Document Reviewed: 10/11/2021 Elsevier Patient Education ?? 2022 [employer] Follow Up Care 05/06/2024 13:42:48 With:Ameya Snow DNP Address: [address], [address] [place] [address] When:1 week Physician Emergency department Note * Kev Mullins MD: PERFORM Event Display: ED Note Physician Authored Date: [id number] EUNICE JACOB :1960 Age:63 years Sex:Female Visit Date:05/06/2024 Primary Care Physician: Ameya Snow DNP Basic Information Time Seen: Kev Mullins MD / 05/06/2024 14:02 Chief Complaint Pt c/o dizziness for 2 weeks, reports recent higher than normal BP on BP meds. History Of Present Illness: 63-year-old lady presents today for evaluation of roughly 2 weeks of dizziness. ??She states that initially it was off-and-on but has been persistent for the last 2 to 3 days.?? Worse with getting upand ambulating but does still have some feelings of disequilibrium/being off balance??while at rest/lying down. ??She has not had any vision change, speech trouble, numbness, tingling, weakness.?? Nochest pain, palpitations, shortness of breath.?? She is concerned that her blood pressure has been running a little bit higher than typical, up to 160 systolic. Review of Systems: As in HPI Physical Exam Vitals & Measurements T:??36.3?C ??(Temporal Artery)?? HR:??73??(Monitored)?? RR:??15?? BP:??141/76?? SpO2:??95%?? HT:??167??cm?? WT:??66.22??kg??(Estimated)?? BMI:??23.74?? Pain Score:??0?? O2 Therapy:??Room air?? Vital signs and nursing notes reviewed ?? CONSTITUTIONAL: _well appearing in no acute distress, pleasant and good historian SKIN: _Warm, dry, and intact without rash EYES: _extraocular movements are grossly intact, clear conjunctiva HENT: _Normocephalic, atraumatic, moist mucus membranes NECK: _no obvious swelling, normal range of motion PULMONARY: _normal chest rise and fall, no respiratory distress or stridor CARDIOVASCULAR: _regular rate, distal extremities are warm and well perfused GASTROINTESTINAL: _nondistended GENITOURINARY: _deferred NEUROLOGIC: _ ?? Neuro: alert and oriented?3, no facial asymmetry, no gaze preference, no slurring of speech. CN II-III: pupils equal and reactive; III, IV, : EOMI, V1- V3: sensation to touch bilaterally intact; VII: no facial asymmetry (frown / smile); VIII: no nystagmus; X: phonation intact; XI: trapezius 5/5 bilaterally, XII: tongue midline, no pronator drift, ecerfi-ce-gkof testing without dysmetria bilaterally. ?? MUSCULOSKELETAL: _no gross deformities, atraumatic PSYCHIATRIC: _normal mood and affect ? Medical Decision Making: ? On my initial evaluation the patient appears generally well and non-toxic, they engage and answer questions appropriately, hemodynamically stable, no evidence of tachycardia, easy WOB with SpO2 saturation upper 90s to 100% on room air, afebrile by oral temperature.Describes disequilibrium but has normal cerebellar/coordination exam and no other neurologic complaints or deficit.?? Suspect likely peripheral??but will check CT/CTA given she still still has some symptoms at rest. ??Differential to include??cardiac ischemia versus dysrhythmia, electrode metabolic arrangement, anemia, other. Procedure No Qualifying Data Reexamination/Reevaluation Patient feels about 50% improvement after 25 mg meclizine.?? Labs reviewed do not show significant??anemia,??no significant leukocytosis, electrolytes are normal??mild elevation in creatinine noted consistent with??history of chronic kidney disease. Troponin and EKG are nonischemic CTs are negative for acute pathology Patient ambulatory to restroom with normal heel/toe gait and again feels improvement after meclizine. ??Will continue to treat for peripheral process??with PCP follow-up. ? Medical Decision-Making: Clinical lab tests: ordered and reviewed -??Yes Tests in the radiology section of CPT??: ordered and reviewed -??Yes Tests in the medicine section of CPT??: ordered and reviewed -??Yes Independent visualization of images, tracings, or specimens? Yes Assessment/Plan 1.??Dizziness??R42 Ordered: meclizine 25 mg oral tablet, 25 mg = 1 tab, Oral, TID, PRN as needed for dizziness, # 30 tab, 0 Refill(s), 05/14/24 23:59:00 EDT, Pharmacy: [facility], 168, cm, 04/11/24 7:40:00 EDT, Height, 65, kg, 04/11/24 7:41:00 EDT, Weight Dosing Discharge Patient, 05/06/24 16:43:00 EDT, Home Independently, Constant Indicator ?? Patient Education Dizziness Follow Up With When Contact Information Karla RODRIGUEZ-N, Ameya Yates DNP Within 1 week [facility] [address], [address] [place] [address] Additional Instructions: Medication Reconciliation New Prescription meclizine (meclizine 25 mg oral tablet)1 tab Oral (given by mouth) 3 times a day as needed as needed for dizziness. Refills: 0. ?? Unchanged acetaminophen (acetaminophen 325 mg oral capsule)1 Capsules Oral (given by mouth) every 4 hours as needed as needed for fever. ?? acetaminophen-codeine (acetaminophen-codeine 300 mg-30 mg oral tablet) ?? amLODIPine (amLODIPine 10 mg oral tablet) ?? calcium citrate ?? cephalexin (cephalexin 500 mg oral capsule)1 Capsules Oral (given by mouth) every 12 hours for 3 Days. Refills: 0. ?? cholecalciferol (Vitamin D3) ?? clobetasol topical (clobetasol 0.05% topical ointment) ?? esomeprazole (esomeprazole 40 mg oral delayed release capsule) ?? fluticasone nasal (fluticasone 50 mcg/inh nasal spray) ?? fosinopril (fosinopril 20 mg oral tablet) ?? glycerin ?? hydrocortisone topical (hydrocortisone 2.5% topical ointment) ?? ibuprofen (ibuprofen 200 mg oral tablet) ?? lidocaine-prilocaine topical (lidocaine-prilocaine 2.5%-2.5% topical cream)1 Application Topical (on the skin) once. ?? LORazepam (LORazepam 1 mg oral tablet) ?? nitroglycerin (nitroglycerin 0.2% transdermal ointment) ?? polyethylene glycol 3350 (MiraLax) ?? sildenafil (sildenafil 20 mg oral tablet) ?? vitamin E ?? zoledronic acid (zoledronic acid 5 mg/100 mL intravenous solution)Every Year. Problem List/Past Medical History Ongoing Actinic keratitis Anemia of chronic renal failure, stage 4 (severe) Anxiety Arthritis Joseph esophagus Chronic anal fissure Chronic kidney disease (CKD) Contact dermatitis CREST syndrome Desmoid fibromatosis Dysplastic nevus of skin Fatigue associated with anemia GERD (gastroesophageal reflux disease) Hypercholesteremia IBS (irritable bowel syndrome) Incontinence of feces Inflamed seborrheic keratosis Insomnia Mass of scalp Raynaud's disease without gangrene Rectal bleeding Scleroderma Historical No qualifying data Procedure/Surgical History ???Surgical procedure (04/11/2024)???Colonoscopy (02/15/2024)???Endoscopy (04/20/2023)???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/flank (06/22/2020)???Bypass graft, brachial-ulnar (10/07/2016) Medication Administration Given meclizine, 25 mg, Oral Allergies No Known Medication Allergies SHELLFISH DERIVED Social History Alcohol Current, 1-2 times per month Electronic Cigarette/Vaping Electronic Cigarette Use: Never. Home/Environment Lives with Significant other. Feels unsafe at home: No. Substance Use Never Tobacco Never tobacco user Tobacco Use:. Diagnostic Results ECG Independently interpreted in the absence of a marine engine machinist???sinus rhythm with a rate of 70, normalaxis, SC is??prolonged at 226 ms, QRS is narrow at 81 ms, QTc is not prolonged at 3 and 86 ms.?? Noacute appearing ST/T-segment changes or evidence of acute regional ischemia or dysrhythmia. Lab Results CBC and Differential?? LATEST RESULTS?? HISTORICAL RESULTS?? WBC?? 05/06/24 14:22?? 7.1?? 09/11/23?? 8.1?? RBC?? 05/06/24 14:22?? 4.4?? 09/11/23?? 4.4?? Hgb?? 05/06/24 14:22?? 14.1?? 09/11/23?? 14.4?? Hct?? 05/06/24 14:22?? 41.8?? 09/11/23?? 42.8?? MCV?? 05/06/24 14:22?? 95.7?? 09/11/23?? 96.8 ??High?? MCH?? 05/06/24 14:22?? 32.3 ??High?? 09/11/23?? 32.6 ??High?? MCHC?? 05/06/24 14:22?? 33.7?? 09/11/23?? 33.6?? RDW-CV?? 05/06/24 14:22?? 13.1?? 09/11/23?? 13.4?? Platelets?? 05/06/24 14:22?? 325?? 09/11/23?? 308?? Neutro Auto?? 05/06/24 14:22?? 65.5?? 09/11/23?? 69.5?? Lymph Auto?? 05/06/24 14:22?? 26.1?? 09/11/23?? 22.5?? [place] Auto?? 05/06/24 14:22?? 5.9?? 09/11/23?? 5.1?? Eos, Auto?? 05/06/24 14:22?? 1.5?? 09/11/23?? 2.1?? Basophil Auto?? 05/06/24 14:22?? 0.7?? 09/11/23?? 0.6?? Imm Gran Auto?? 05/06/24 14:22?? 0.3?? 09/11/23?? 0.2?? Neutro Absolute?? 05/06/24 14:22?? 4.6?? 09/11/23?? 5.6? Routine Chemistry?? LATEST RESULTS?? HISTORICAL RESULTS?? Sodium Level?? 05/06/24 14:22?? 139?? 09/11/23?? 138?? Potassium Level?? 05/06/24 14:22?? 4.7?? 09/11/23?? 4.1?? Chloride Level?? 05/06/24 14:22?? 102?? 09/11/23?? 103?? CO2?? 05/06/24 14:22?? 26?? 09/11/23?? 26?? Alk Phos?? 05/06/24 14:22?? 62? AST?? 05/06/24 14:22?? 15? ALT?? 05/06/24 14:22?? 23? BUN?? 05/06/24 14:22?? 24 ??High?? 09/11/23?? 25 ??High?? Glucose Level?? 05/06/24 14:22?? 122 ??High?? 09/11/23?? 102?? Creatinine Level?? 05/06/24 14:22?? 1.27 ??High?? 09/11/23?? 1.10 ??High?? eGFR AA?? 05/06/24 14:22?? 48 ??Low?? 09/11/23?? 57 ??Low?? eGFR Non-AA?? 05/06/24 14:22?? 48 ??Low?? 09/11/23?? 57 ??Low?? Calcium Level?? 05/06/24 14:22?? 9.2?? 09/11/23?? 9.4?? Protein Total?? 05/06/24 14:22?? 7.4? Albumin Level?? 05/06/24 14:22?? 3.9?? 09/11/23?? 4.0?? Bilirubin Total?? 05/06/24 14:22?? 0.3? Magnesium Level?? 05/06/24 14:22?? 1.9? Cardiac Isoenzymes?? LATEST RESULTS?? Troponin-I?? 05/06/24 14:22?? 7.3? Thyroid Studies?? LATEST RESULTS?? TSH?? 05/06/24 14:22?? 1.082? Electronically Signed on 05/06/2024 19:45 EDT Kev Mullins MD Emergency department Discharge instructions * Kev Mullins MD: PERFORM Event Display: ED Discharge Information Authored Date: [id number] EUNICE JACOB :1960 Age:63 years Sex:Female Visit Date:05/06/2024 Primary Care Physician: Karla JACKMAN, Ameya Yates DNP Discharge Instructions We would like to thank you for allowing us to assist you with your healthcare needs. The following includes patient education materials and information regarding your injury/illness. Diagnosis from Today's Visit Dizziness Discharge Vitals Temperature??(Temporal Artery) 97.3 ??F (36.3 ??C) Heart Rate??(Monitored) 73 Respiratory Rate?? 15 Blood Pressure?? 141/76?? SpO2?? 95% Height?? 65.75 in (167 cm) Weight??(Estimated) 146.02 lb (66.22 kg) BMI?? 23.74 Allergies No Known Medication Allergies SHELLFISH DERIVED What to Do Next Instructions from Your Care Team Thank you for coming to the emergency department today,??we appreciate your patience and it has been our pleasure to take care of you. ?? Thankfully the CT scan did not??show any signs of??a large stroke or blood vessel injury??in your head/neck that would be causing your dizziness. ??Your EKG (electrical picture of the heart) and troponin (heart attack marker) were both normal. ?? We are glad you had some improvement with the meclizine and you may continue to use this as prescribed. ?? Please follow up with your regular doctor??within the next week??and return to the emergency department if you have any new or concerning symptoms such as any new numbness, tingling, weakness, trouble with vision or speech, worsening dizziness, chest pain, trouble breathing, or if you have any other concerns. ?? There are often mild laboratory abnormalities and mild radiographic findings that are not significant during this ER visit but often require further work-up as an outpatient to rule out potentially serious disease.?? Please follow-up with your primary care provider to review all of your results from this visit in more detail. You Need to Schedule the Following Appointments Follow Up with??Karla RODRIGUEZ-N, Ameya Yates DNP When:??Within 1 week Where: [facility] [address] [facility] [address] [place] [address] You were treated today on an emergency basis; it may be coyne to contact your primary care provider to notify them of your visit today. You may have been referred to your regular doctor or a specialist, please follow up as instructed. If your condition worsens or you can't get in to see the doctor, contact the Emergency Department. Medications What How Much When Why Instructions Next Dose New meclizine (meclizine 25 mg oral tablet) 1 tab Oral (given by mouth) 3 times a day as needed for as needed for dizziness Dizziness Pickup at [facility] Unchanged acetaminophen (acetaminophen 325 mg oral capsule) 1 Capsules Oral (given by mouth) Every 4 hours as needed for as needed for fever Unchanged acetaminophen-codeine (acetaminophen-codeine 300 mg-30 mg oral tablet) Unchanged amLODIPine (amLODIPine 10 mg oral tablet) Unchanged calcium citrate Unchanged cephalexin (cephalexin 500 mg oral capsule) 1 Capsules Oral (given by mouth) Every 12 hours postop prophylaxis Duration: 3 Days Unchanged cholecalciferol (Vitamin D3) Unchanged clobetasol topical [...] 100 mL intravenous solution) Every Year ?? Pharmacy Information [facility]: [address], [place] [phone] Education Materials Dizziness Dizziness is a common problem. It is a feeling of unsteadiness or light- headedness. You may feel like you are about to faint. Dizziness can lead to injury if you stumble or fall. Anyone can become dizzy, but dizziness is more common in older adults. This condition can be caused by a number of things, including medicines, dehydration, or illness. Follow these instructions at home: Eating and drinking ? Drink enough fluid to keep your urine pale yellow. This helps to keep you from becoming dehydrated.Try to drink more clear fluids, such as water. ? Do not drink alcohol. ? Limit your caffeine intake if told to do so by your health care provider. Check ingredients and nutrition facts to see if a food or beverage contains caffeine. ? Limit your salt (sodium) intake if told to do so by your health care provider. Check ingredients and nutrition facts to see if a food or beverage contains sodium. Activity ? Avoid making quick movements. ? Rise slowly from chairs and steady yourself until you feel okay. ? In the morning, first sit up on the side of the bed. When you feel okay, stand slowly while you hold onto something until you know that your balance is good. ? If you need to manager protein one place for a long time, move your legs often. Tighten and relax the muscles in your legs while you are standing. ? Do not drive or use machinery if you feel dizzy. ? Avoid bending down if you feel dizzy. Place items in your home so that they are easy for you to reach without leaning over. Lifestyle ? Do not use any products that contain nicotine or tobacco. These products include cigarettes, chewing tobacco, and vaping devices, such as e-cigarettes. If you need help quitting, ask your health careprovider. ? Try to reduce your stress level by using methods such as yoga or meditation. Talk with your health care provider if you need help to manage your stress. General instructions ? Watch your dizziness for any changes. ? Take [id number] and prescription medicines only as told by your health care provider. Talk with your health care provider if you think that your dizziness is caused by a medicine that you are taking. ? Tell a friend or a family member that you are feeling dizzy. If he or she notices any changes in your behavior, have this person call your health care provider. ? Keep all follow-up visits. This is important. Contact a health care provider if: ? Your dizziness does not go away or you have new symptoms. ? Your dizziness or light-headedness gets worse. ? You feel nauseous. ? You have reduced hearing. ? You have a fever. ? You have neck pain or a stiff neck. ? Your dizziness leads to an injury or a fall. Get help right away if: ? You vomit or have diarrhea and are unable to eat or drink anything. ? You have problems talking, walking, swallowing, or using your arms, hands, or legs. ? You feel generally weak. ? You have any bleeding. ? You are not thinking clearly or you have trouble forming sentences. It may take a friend or family member to notice this. ? You have chest pain, abdominal pain, shortness of breath, or sweating. ? Your vision changes or you develop a severe headache. These symptoms may represent a serious problem that is an emergency. Do not wait to see if the symptoms will go away. Get medical help right away. Call your local emergency services (911 in the [place] Do not drive yourself to the hospital. Summary ? Dizziness is a feeling of unsteadiness or light-headedness. This condition can be caused by a number of things, including medicines, dehydration, or illness. ? Anyone can become dizzy, but dizziness is more common in older adults. ? Drink enough fluid to keep your urine pale yellow. Do not drink alcohol. ? Avoid making quick movements if you feel dizzy. Monitor your dizziness for any changes. This information is not intended to replace advice given to you by your health care provider. Make sure you discuss any questions you have with your health care provider. Document Revised: 10/11/2021 Document Reviewed: 10/11/2021 [employer] Patient Education ?? 2022 [employer] Tests Performed Medications and Immunizations Administered Given meclizine, 25 mg, Oral Lab Test Name Test Result Date/Time WBC 7.1 x10^3/mcL 05/06/2024 14:22 EDT RBC 4.4 x10^6/mcL 05/06/2024 14:22 EDT Hgb 14.1 g/dL 05/06/2024 14:22 EDT Hct 41.8 % 05/06/2024 14:22 EDT MCV 95.7 fL 05/06/2024 14:22 EDT MCH 32.3 pg 05/06/2024 14:22 EDT MCHC 33.7 g/dL 05/06/2024 14:22 EDT RDW-CV 13.1 % 05/06/2024 14:22 EDT Platelets 325 x10^3/mcL 05/06/2024 14:22 EDT Neutro Auto 65.5 % 05/06/2024 14:22 EDT Lymph Auto 26.1 % 05/06/2024 14:22 EDT [place] Auto 5.9 % 05/06/2024 14:22 EDT Eos, Auto 1.5 % 05/06/2024 14:22 EDT Basophil Auto 0.7 % 05/06/2024 14:22 EDT Imm Gran Auto 0.3 % 05/06/2024 14:22 EDT Neutro Absolute 4.6 x10^3/mcL 05/06/2024 14:22 EDT Sodium Level 139 mmol/L 05/06/2024 14:22 EDT Potassium Level 4.7 mmol/L 05/06/2024 14:22 EDT Chloride Level 102 mmol/L 05/06/2024 14:22 EDT CO2 26 mmol/L 05/06/2024 14:22 EDT Alk Phos 62 unit/L 05/06/2024 14:22 EDT AST 15 unit/L 05/06/2024 14:22 EDT ALT 23 unit/L 05/06/2024 14:22 EDT BUN 24 mg/dL 05/06/2024 14:22 EDT Glucose Level 122 mg/dL 05/06/2024 14:22 EDT Creatinine Level 1.27 mg/dL 05/06/2024 14:22 EDT eGFR AA 48 05/06/2024 14:22 EDT eGFR Non-AA 48 05/06/2024 14:22 EDT Calcium Level 9.2 mg/dL 05/06/2024 14:22 EDT Protein Total 7.4 g/dL 05/06/2024 14:22 EDT Albumin Level 3.9 g/dL 05/06/2024 14:22 EDT Bilirubin Total 0.3 mg/dL 05/06/2024 14:22 EDT Magnesium Level 1.9 mg/dL 05/06/2024 14:22 EDT Troponin-I 7.3 pg/mL 05/06/2024 14:22 EDT TSH 1.082 mcIntlUnit/mL 05/06/2024 14:22 EDT Patient/Anesthesia Technician Signature Patient Name:NAS DAWSONINE I have received this information and my questions have been answered. Patient/Anesthesia Technician Name: Patient/Anesthesia Technician Signature: Relationship to Patient: Witness Name/Signature: Date: Electronically Signed on: 05/06/2024 16:43 EDTSigned by:DIONNA Discharge summary * Solomon Hernandez: PERFORM Event Display: Discharge Summary Authored Date: [id number] Patient Care team information Care Team Personnel Name: Ameya Snow DNP Position: No Access Member Role: Informed Provider Address: Address: [address] [address] [place] Care Team Related Persons Name: MAHNAZ DAWSON Name: ANGELO ESCALONA
--- OUTSIDE RECORDS SUMMARY | 2024-09-14 13:01 | XMS_ITS | Clinical Summary ---
Author Organization [facility] [place] [address] Care Team Providers Care Supervisor Assembly Name Role Phone Ameya Acosta DNP Primary Care Provider [phone] Allergies Active Allergy Reactions Criticality Noted Date Comments Unclassified Drug 03/29/2017 Lobster--weird sensation Shellfish Derived 10/12/2021 Medications Medication Sig Dispensed Refills Start Date End Date Status nitroGLYcerin (NITROGLYN) 2 % ointment Place 0.5 inches onto the skin every 6 hours. Active cholecalciferol, Vitamin D3, 25 mcg (1,000 unit) Capsule Take 1 tablet by mouth daily. Active vitamin E 400 unit Capsule Take 400 Units by mouth daily. Active loperamide (IMMODIUM) 2 mg Capsule Take 2 mg by mouth 4 times daily as needed for Diarrhea. Active acetaminophen (TYLENOL) 500 mg Tablet Take 2 tablets by mouth every 8 hours as needed for Pain. 30 tablet 1 04/09/2016 Active glycerin, adult, Suppository daily as needed. 0 10/21/2016 Active calcium citrate (Calcitrate) 200 mg (950 mg) Tablet Take 600 mg by mouth daily. Active fish oil-omega-3 fatty acids 1,000 mg Capsule Take 1,000 mg by mouth daily. Active psyllium husk (METAMUCIL ORAL) Take by mouth daily. Active polyethylene glycoL (Miralax) 17 gram/dose Powder Take 17 g by mouth daily. PRN Active Ibuprofen 200 mg Capsule Take by mouth. Active lidocaine-prilocai ne (EMLA) Cream APPLY EXTERNALLY TO THE AFFECTED AREA NEEDED 30 g 2 06/13/2022 Active cephALEXin (Keflex) 500 mg capsule Take 1 capsule by mouth 4 times daily. 40 capsule 3 02/22/2023 Active Additional Information Patient not taking.Reported on 02/21/2024 acetaminophen-code ine (Tylenol-Codeine #3) 300-30 mg tablet Take 2 tablets by mouth every 6 hours as needed for Pain. 60 tablet 03/29/2023 Active furosemide (Lasix) 20 mg tabletIndications: Stage 3a chronic kidney disease Take 0.5 tablets by mouth daily. 30 tablet 3 05/02/2023 Active Additional Information Patient not taking.Reported on 02/21/2024 potassium chloride ER (Klor-Con M) 10 mEq ER micro-encapsulated crystal tablet Take 1 tablet by mouth daily. 30 tablet 3 05/02/2023 Active Additional Information Patient taking differently:10 mEq Oral DAILY,PRN, Reported on 06/07/2024 mupirocin (Bactroban) 2 % OintmentIndication s:Impetigo Apply topically 3 times daily for 10-14 days 22 g 11/15/2023 Active fluticasone propionate (Flonase) 50 mcg/actuation Ewen, Suspension Twice a day 02/20/2023 Active hydrocortisone 2.5 % Ointment as needed. 04/25/2022 Active LORazepam (Ativan) 1 mg tablet Two pills a week 06/19/2023 Active zoledronic rbtl-mwoslaes-gagn r (zoledronic Acid) 5 mg/100 mL infusion .every year 03/07/2021 Active sildenafiL (Revatio) 20 mg tablet TAKE TWO TABLETS BY MOUTH EVERY MORNING, ONE TABLET BY MOUTH IN THE AFTERNOON AND TWO TABLETS BY MOUTH EVERY EVENING. 150 tablet 5 04/18/2024 Active esomeprazole (NexIUM) [address] capsuleIndications :CKD (chronic kidney disease) stage 3, GFR 30-59 ml/min,Scleroderma Take 1 capsule by mouth 2 times daily. 180 capsule 3 07/16/2024 Active amLODIPine (Norvasc) 5 mg tablet Take 1 tablet by mouth daily. 90 tablet 3 09/02/2024 Active fosinopriL (Monopril) 20 mg tabletIndications: Scleroderma,CKD (chronic kidney disease) stage 3, GFR 30-59 ml/min Take 1 tablet by mouth daily. 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 Contact dermatitis 02/21/2024 COVID 02/21/2024 Fatigue associated with anemia 02/21/2024 Finger ulcer 02/21/2024 Fistula 02/21/2024 H/O colonoscopy 02/21/2024 H/O dilation and curettage 02/21/2024 H/O: depression 02/21/2024 Hypercholesteremia 02/21/2024 IBS (irritable bowel syndrome) 02/21/2024 Inflamed seborrheic keratosis 02/21/2024 Insomnia 02/21/2024 Mass of scalp 02/21/2024 Menopause present 02/21/2024 Other specified postprocedural states 02/21/2024 Rectal bleeding 02/21/2024 Renal failure 02/21/2024 CREST syndrome 02/21/2024 High blood pressure 02/21/2024 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 +b catenin. Mitosis 10/29HPF AK (actinic keratosis) 05/25/2013 Solar lentigo 05/25/2013 Multiple nevi 05/25/2013 CKD (chronic kidney disease) stage 4, GFR 15-29 ml/min 04/20/2010 Overview (08/19/2012): related to scleraderma crisis Had tunnelled dialysis catheter removed at [facility] in June 2010 Scleroderma 11/20/1990 Anemia of chronic renal failure, stage 4 (severe ) GERD (gastroesophageal reflux disease) Resolved Problems Problem Noted Date Diagnosed Date Resolved Date Raynaud phenomenon 04/08/2016 0 Other disorder of muscle, li gament, and fascia 12/09/2014 06/09/2020 Encounters Date Type Department Care Team Description 09/02/2024 Refill [place] [address] Kiet Pardo MD Scleroderma; CKD (chronic kidney disease) stage 3, GFR 30-59 ml/min 08/08/2024 11:33 AM EDT Anesthesia Event [place] [address] Kiet Mock MD 08/08/2024 11:00 AM EDT - 08/08/2024 11:30 AM EDT Surgery [place] [address] Andrew Berger MD EGD, UPPER GI ENDOSCOPY (WRVU 2.09) 08/08/2024 10:11 AM EDT - 08/08/2024 1:00 PM EDT Hospital Encounter [place] [address] Andrew Berger MD Durbin's esophagus with high grade dysplasia Discharge Disposition: Home 07/16/2024 Refill [place] [address] Andrew Berger MD CKD (chronic kidney disease) stage 3, GFR 30-59 ml/min; Scleroderma from Last 3 Months Immunizations Name Administration Dates Next Due Covid-19 Bivalent (Pfizer Co mirnaty) 12yrs+ (6936-1025) 08/16/2022 Covid-19 Monovalent (Moderna Spikevax) 6-11yrs (1285-4660) 05/27/2022,12/16/2021 Influenza (FluBlok) Quadriva lent, Recombinant Preservative Free 08/12/2020 Influenza (FluMist) Trivalen t Intranasal, LIVE 08/12/2020,01/09/2020,10/07/2016,08/08 Influenza PF, Split 09/23/2016,10/17/2012 Influenza Quadrivalent, Pres ervative Free 08/16/2022,08/16/2021,08/12/2020,01/09,10/07/2016,08/08/2014 Influenza Quadrivalent, Pres ervative Free (6-35 Mos) 01/09/2020,10/07/2016 Pneumococcal 23-Valent Polys accharide (Pneumovax 23) 01/20/2020,02/22/2010 Td Adult (Decavac, Tenivac) 08/24/2010 Td Adult, Unspecified Formulation 08/24/2010 Tdap (Adacel, Boostrix) 01/09/2020 Zoster Recombinant (ShingRix) 07/16/2020, 020 Family History Medical History Relation Comments Glaucoma Brother Alcohol Use Disorder Father He was gett ing drunk 2 or 3 nights a week but never missed a day work Diabetes Maternal Grandmother Cancer Neg Hx Relation Status Comments Brother Father Maternal Grandmother Mother Social History Tobacco Use Types Packs/Day Years Used Date Smoking Tobacco: Former Cigarettes 1 10 0 03/30/1978 - 03/30/1988 Smokeless Tobacco: Never Tobacco Cessation:Counseling Given: Not Answered Comments:never vape Alcohol Use Standard Drinks/Week Comments Not Currently 0 (1 standard drink = 0.6 oz pur e alcohol) once monthly Sex and Gender Information Value Date Recorded Sex Assigned at Female 09/17/2021 7:57 PM EDT Gender Identity Female 11/08/2018 9:52 PM EST Sexual Orientation Straight 07/09/2021 4: 47 PM EDT Last Filed Vital Signs Vital Sign Reading Time Taken Comments Blood Pressure 119/87 08/08/2024 12:20 PM EDT Pulse 87 08/08/2024 11:01 AM EDT Temperature 36.7 ??C (98.1 ??F) 06/07/2024 10:45 AM E DT Respiratory Rate 17 08/08/2024 11:01 AM EDT Oxygen Saturation 96% 08/08/2024 12:20 PM EDT Inhaled Oxygen Concentration - - Weight 58.5 kg (129 lb) 08/08/2024 11:01 AM EDT Height 167.6 cm (5' 6) 08/08/2024 11:01 AM EDT Body Mass Index 20.82 08/08/2024 11:01 AM EDT Plan of Treatment Upcoming Encounters Date Type Department Care Team (Late st Contact Info) Description 10/07/2024 11:30 AM EST Office Visit Dermatology at [facility] [address] [place] [address] Jo Ordaz MD [facility] [place] [address] 12/13/2024 11:30 AM EST Appointment [place] [phone] 12/13/2024 1:00 PM EST Office [place] [phone] Kiet Pardo MD [facility] [address] Health Maintenance Due Date Last Done Comments CT Colonography 1961 FIT DNA 1960 FIT 1960 Sigmoidoscopy 1960 HIV screen 1979 Breast Cancer Share Decision Needed 2001 HPV test 10/07/2020 10/07/2015 PAP Smear 10/07/2020 10/07/2015, 07/21, 02/22/2013 Pneumococcal Vaccine: At-Risk 5-64yrs (2 of 2 - PCV) 01/19/2021 01/20/2020, 02/22/2010 Lipid Screening 05/19/2021 05/19/2016 Breast Cancer screening 01/20/2022 01/21/20 20 (Outside per patient (enter details in comments)), 02/06/2019 (Outside per patient (enter details in comments)) Colonoscopy 01/31/2022 01/31/2019, 01/18, 04/04/2013 (Outside per patient (enter details in comments)) Colorectal Cancer Screening 01/31/2022 Covid-19 Vaccine ( season) 2024 08/16/2022, 05/27/2022, 12/16/2021, Additional history exists Influenza (Flu) vaccine (1 of 1 - Influenza standard series) 07/21/2024 08/16/2022, 08/16/2021, 08/12/2020, Additional history exists Sigmoidoscopy (10 year) with FIT yearly 01/31/2029 01/31/2019, 01/31/2019 Tetanus/Diphtheria/Pertussi s Vaccines (2 - Td or Tdap) 01/09/2030 01/09/2020, 08/24/2010, 08/24/2010 Hepatitis C Screening Addressed 01/20/2020 (Outside per patient (enter details in comments)) Overridden with the intention of not completing the topic Zoster vaccine Completed 07/16/2020, 04/17/2020 Procedures Procedure Name Priority Date/Time Associated Diagnosis Comments SURGICAL PATHOLOGY Routine 08/08/2024 11 :46 AM EDT Durbin's esophagus with high grade dysplasia Upper Gi Endoscopy, Biopsy (58978) 08/08/2024 11:38 AM EDT Durbin's esophagus with high grade dysplasia Upper GI Endoscopy, Diagnostic (10891) 08/08/2024 11:38 AM EDT Durbin's esophagus with high grade dysplasia UPPER GI ENDOSCOPY Routine 08/08/2024 11 :16 AM EDT COLONOSCOPY Routine 01/31/2019 9:31 AM EDT EXTERNAL LAB RESULTS Routine 05/19/2016 HPV Routine 10/07/2015 12:00 PM EST [employer] CYTOLOGY FINAL REPORT Routine 10/07/2015 12:00 PM EST from Last 3 Months or Most Recently Relevant to Health Maintenance Results * Surgical Pathology (08/08/2024 11:46 AM EDT) Case Report Surgical Pathology Report ? Case: [id number] ? Authorizing Provider: ??Andrew Berger MD ? Collected: ? 08/08/2024 1146 ? Ordering Location: ? Gastroenterology at [facility] ?? Received: ?08/08/2024 1448 ? Pathologist: ? Josie Rush MD ? Specimens: ?? A) - Esophagus, z-line bxs r/o dysplasia ? B) - Esophagus, Distal ? 08/19/2024 9:35 AM EDT [facility] Final Diagnosis A. Esophagus, z-line bxs r/o dysplasia Biopsy: Squamocolumnar junctional mucosa (cardia- and funic-type) with mild chronic inflammation. There is no evidence of intestinal metaplasia. B. Esophagus, Distal, Biopsy: Esophageal squamous mucosa within normal limits. 08/19/2024 9:35 AM EDT [facility] Clinical Information A. Esophagus, z-line bxs r/o dysplasia Rule out dysplasia Hx of durbin's with previous ablation B. Esophagus, Distal, Rule out dysplasia 08/19/2024 9:35 AM EDT [facility] Gross Description A. Esophagus, z-line bxs r/o dysplasia. A - Labeled/Fixative: Esophagus Z-line BX rule out dysplasia, formalin. Quantity/Size: Four, ranging from 0.2 to 0.4 cm. Tissue Description: Soft, pink-white tissues. Sections/Processin g: Submitted in toto in 1 cassette labeled A1. sns B. Esophagus, Distal, . B - Labeled/Fixative: Esophagus, distal, formalin. Quantity/Size: Four, ranging from 0.3 to 0.5 cm. Tissue Description: Soft, white tissues. Sections/Processin g: Submitted in toto in 1 cassette labeled B1. sns 08/19/2024 9:35 AM EDT [facility] Result Note Routine 08/19/2024 9:35 AM EDT [facility] Tissue ESOPHAGEAL STRUCTURE / Unknown 08/08/2024 11:46 AM EDT 08/08/2024 2:48 PM EDT Comment:Hx of durbin's with previous ablation Tissue specimen (specimen) REGION OF ESOPHAGUS / Unknown 08/08/2024 11:48 AM EDT 08/08/2024 2:48 PM EDT Comment:Pre-op diagnosis: Durbin's ablation f/up Andrew Berger MD PATHOLOGY/CYTOLOGY O YVETTE [facility] [place] [address] * UPPER GI ENDOSCOPY (08/08/2024 11:16 AM EDT) UPPER GI ENDOSCOPY [facility] Endoscopy Procedure Date: 08/08/2024 11:16 AM ? Patient Name: Amber Wells ? Date of : 1960 ? Age: 64 ? Order #: [id number] ? Instrument Name: [id number] ? Procedure: ? Upper GI endoscopy Indications: ? Follow-up of Durbin's esophagus ? with high grade dysplasia, ? Follow-up of previous ? radiofrequency ablation treatment ? of Durbin's esophagus Providers: ? Andrew Berger MD, Davin Man ? Andre Patterson Julia ? Saturnino Referring MD: ?Ameya Yates Karla Medicines: ? Monitored Anesthesia Care Complications: ? No immediate complications. Procedure: ? Pre-Anesthesia Assessment: ? - Prior to the procedure, a History ? and Physical was performed, and ? patient medications, allergies and ? sensitivities were reviewed. The ? patient's tolerance of previous ? anesthesia was reviewed. ? - The risks and benefits of the ? procedure and the sedation options ? and risks were discussed with the ? patient. All questions were ? answered and informed consent was ? obtained. ? - ASA Grade Assessment: II - A ? patient with mild systemic disease. ? The procedure, indications, ? benefits, risks and alternatives ? were explained to the patient. ? Specifically discussed were ? potential complications including, ? but not limited to, bleeding, ? perforation, infection, missing a ? cancer, and adverse medication ? reactions. The Endoscope was ? introduced through the mouth, and ? advanced to the second part of ? duodenum The upper GI endoscopy was ? accomplished without difficulty. ? The patient tolerated the procedure ? well. ? Findings: ? The Z-line was slightly irregular in contour with no ? endoscopic evidence of Durbin's recurrence. Biopsies ? were taken with a cold forceps for histology. ? The examined esophagus was normal, no islands noted. ? Biopsies were taken of the distal esophagus with a ? cold forceps for histology, 1 cm proximal from the ? Z-line. ? The stomach was normal. ? The examined duodenum was normal. ? Moderate Sedation: ? Not applicable - See Anesthesia documentation Impression: ?- Z-line slightly irregular without ? evidence of recurrent Durbin's. ? Biopsied at the Z line and 1cm ? proximal in the distal esophagus . ? - Otherwise normal EGD Recommendation: ?- Await pathology results to ? determine surveillance EGD interval ? (1 year). ? - The attending physician listed ? above was present for the entire ? procedure. ? Attending Participation: ? I was present and participated during the entire ? procedure, including non-cardenas portions. ? _ Andrew Berger MD 08/08/2024 12:51:51 PM This report has been signed electronically. Number of Addenda: 0 Note Initiated On: 08/08/2024 11:16 AM PROVATION 08/08/2024 11:1 6 AM EDT Ameya Acosta DNP GENERAL SURGICAL OR DERABLES [facility]ATION * COLONOSCOPY (01/31/2019 9:31 AM EDT) COLONOSCOPY [facility] Endoscopy Procedure Date: 01/31/2019 9:31 AM ? Patient Name: Amber Wells ? Date of : 1960 ? Age: 58 ? Order #: [id number] ? Instrument Name: [id number] ? Procedure: ? Colonoscopy Indications: ? Abdominal pain, Constipation Providers: ? Andrew Berger MD, Davin Man ? Tamika Patterson, Outdoor Pursuits Instructor Referring : ?Gorge Man MD Medicines: ? Monitored Anesthesia Care Complications: ? No immediate complications. Procedure: ? Pre-Anesthesia Assessment: ? - Prior to the procedure, a History ? and Physical was performed, and ? patient medications, allergies and ? sensitivities were reviewed. The ? patient's tolerance of previous ? anesthesia was reviewed. ? - The risks and benefits of the ? procedure and the sedation options ? and risks were discussed with the ? patient. All questions were answered ? and informed consent was obtained. ? - Patient identification and proposed ? procedure were verified prior to the ? procedure by the physician, the ? nurse, the hr associate and the ? phlebotomy services technician. The procedure was ? verified in the pre-procedure area in ? the procedure room. ? - Pre-procedure physical examination ? revealed no contraindications to ? sedation. ? - ASA Grade Assessment: III - A ? patient with severe systemic disease. ? The procedure, indications, benefits, ? risks and alternatives were explained ? to the patient. Specifically ? discussed were potential ? complications including, but not ? limited to, bleeding, perforation, ? infection, missing a cancer, and ? adverse medication reactions. The ? patient was placed in the left ? lateral decubitus position, and a ? digital rectal exam was performed. ? The Colonoscope was inserted in the ? anus and under direct visualization, ? advanced to the terminal ileum. ? Careful inspection was made as the ? colonoscope was withdrawn. The ? colonoscopy was performed without ? difficulty. The patient tolerated the ? procedure well. The quality of the ? bowel preparation was evaluated using ? the BBPS ([place] Bowel Preparation ? Scale) with scores of: Right Colon = ? 2 (minor amount of residual staining, ? small fragments of stool and/or ? opaque liquid, but mucosa seen well), ? Transverse Colon = 2 (minor amount of ? residual staining, small fragments of ? stool and/or opaque liquid, but ? mucosa seen well) and Left Colon = 2 ? (minor amount of residual staining, ? small fragments of stool and/or ? opaque liquid, but mucosa seen well). ? The total BBPS score equals 6. The ? quality of the bowel preparation was ? good. ? Findings: ? The perianal and digital rectal examinations were ? normal. ? The terminal ileum appeared normal. ? A 5 mm polyp was found in the sigmoid colon. The ? polyp was hyperplastic. The polyp was removed with a ? cold snare. Resection and retrieval were complete. ? Multiple small-mouthed diverticula were found in the ? sigmoid colon. ? The exam was otherwise without abnormality on direct ? and retroflexion views. ? Moderate Sedation: ? Not applicable - See Anesthesia documentation Impression: ?- One 5 mm polyp in the sigmoid ? colon, removed with a cold snare. ? Resected and retrieved. ? - Diverticulosis in the sigmoid colon. ? - The examination was otherwise ? normal on direct and retroflexion ? views. Recommendation: ?- Discharge patient to home (with ? escort). ? - Resume previous diet. ? - Await pathology results. ? - Consider physical therapy for ? evacuation disorder. ? - Follow up with Dr. Berger as ? previously scheduled. ? Attending Participation: ? I was present and participated during the entire ? procedure, including non-cardenas portions. ? Andrew Berger MD 01/31/2019 10:38:10 AM This report has been signed electronically. Number of Addenda: 0 Note Initiated On: 01/31/2019 9:31 AM PROVATION 01/31/2019 9:31 AM EDT Gorge Man MD GENERAL SURGICAL ORD ERABLES PROVATION * (ABNORMAL) External Lab Results (05/19/2016) Glucose 83([facility] al Lab) Blood Urea Nitrogen 26(FUNNEL SETTER AL/ABN) Creatinine 1.29(EXTE RNAL/ABN) Est Glomerular Filtration Rate 43(FUNNEL SETTER AL/ABN) Sodium 140(Exter nal Lab) 137 - 147 Potassium 4.9(Exter nal Lab) 3.4 - 5.3 Chloride 104(Exter nal Lab) 99 - 108 Carbon Dioxide 25([facility]) 22 - 29 Calcium 8.9(Exter nal Lab) 8.7 - 10.7 LDL Cholesterol, Direct 137(EXTER NAL/ABN) Cholesterol, Total 195(Exter nal Lab) mg/dL Triglyceride 114(Exter nal Lab) mg/dL HDL Cholesterol 47([facility]) md/dL Uric Acid 5.9(Exter nal Lab) Phosphorus 3.6(Exter nal Lab) 2.5 - 4.9 Historical Provider CHEMISTRY ORDERAB LES * HPV (10/07/2015 12:00 PM EST) HPV16 NEGATIVE [facility] HPV [address] [facility] HPV Other HR NEGATIVE [facility] HPV Interpretation NEGATIVE for high-risk HPV *. It is recommended that patients with ASCUS cytology and a negative test for high-risk HPV undergo further evaluation according to current practice guidelines. ??* Testing negative for high risk HPV means that the specimen is negative for the following 14 types tested: ??types 16, 18, 31, 33, 35, 39, 45, 51, 52, 56, 58, 59, 66, and 68. ??The test is not intended to detect low risk HPV types. [employer]?? HPV test Specimen: HPV Testing - Cytology Liquid Based Prep [facility] Cervical swab (specimen) 10/07/2015 12:00 PM EST 10/09/2015 2:40 PM EST Narrative Resulting Agency Comment Spec In Lab / [facility] Yaritza Pierre MD PATHOLOGY/CYTOLOGY O RDERABLES [facility] * [facility] Cytology Final Report (10/07/2015 12:00 PM EST) [facility] Cytology Final Report The signing pathologist has (i) examined the relevant preparation(s) for the specimen(s) and (ii) rendered or confirmed the diagnosis(es). Accession Number: [id number] ?Location: [facility] . ? Skid Adzer Final DIAGNOSIS NORMAL Negative for Intraepithelial Lesion or Malignancy (NILM). 10/17/15 ?? Screened by: ??LMY 10/17/15 ?? Verified by: ??Lalo CT(ASCP), Karlee Brown - Information Operator DISCUSSION Please also see concurrent HPV test result. STATEMENT OF ADEQUACY Specimen submitted is satisfactory. Endocervical component present. CLINICAL INFORMATION HPV Option: ? Concurrent HPV Preparation: ?Liquid Based Pap Specimen Source: ?Cerv/Endo/LBP/Mayelin gnostic LMP: ?08/25/15 Hormones?: ?No Hysterectomy?: ?No ?: ?No ?: ?No I.U.D.?: ?No Pelvic Radiation: ? No Prior [employer] Therapy?: ? Yes Hist Abnl Pap/Biopsy?: ??Yes Hist of HPV Vaccine?: ?? No Hist of Smoking?: ? No Hist of NAV exposure?: ??No Clinical Data, Significant Therapy and Clinical Impression: ?? _ Referring Identifier: ??[id number] This Pap Test has been evaluated with the assistance of the [employer] Pap Test Imaging System. Note: The Pap test is a screening test for cervical cancer with an inherent false-negative rate dependent upon several variables. ??For further information please contact the [facility]. Reference: ??Jennie GARCIA. ??Ekg Tech of Pap Smear Results. ??In: ??Annelise BS, Freddy HH, ed. ??The Pap Smear. ??[place]: ??Ki, 2002: ??71-77. SALVADOR VALENCIA 10/07/2015 12:0 0 PM EST Narrative Resulting Agency Comment Spec In Lab / [facility] Yaritza Pierre MD PATHOLOGY/CYTOLOGY O RDERABLES [facility]VADOR VALENCIA from Last 3 Months or Most Recently Relevant to Health Maintenance Advance Directives Documents on File Type Date Recorded Patient Manager Epic Expl anation Advance Directives and Livin g Will 03/28/2014 9:37 AM 03/26/2014 * Full Code (Latest Code Status on File) Date Activated Date Inactivated Comments 10/07/2016 6:10 PM 10/08/2016 4:35 PM Question Answer Comments Does patient have capacity to make decision: Yes * Full Code Date Activated Date Inactivated Comments 10/07/2016 12:52 PM 10/07/2016 6:10 PM Question Answer Comments Does patient have capacity to make decision: Yes * Full Code Date Activated Date Inactivated Comments 04/08/2016 4:13 PM 04/09/2016 7:24 PM Question Answer Comments Does patient have capacity to make decision: Yes * Full Code Date Activated Date Inactivated Comments 04/08/2016 3:11 PM 04/08/2016 4:13 PM Question Answer Comments Does patient have capacity to make decision: Yes * Full Code Date Activated Date Inactivated Comments 03/29/2016 8:56 AM 03/29/2016 3:32 PM Question Answer Comments Does patient have capacity to make decision: Yes Care Teams Supervisor Assembly Relationship Specialty Start Date End Date Ameya Acosta DNP [address] [place] [address] [place] [address] PCP - General Family Medicine 05/01/23
--- OUTSIDE RECORDS SUMMARY | 2024-09-14 13:01 | XMS_ITS | Encounter Summary ---
Author Organization [facility] Address [address] [place] [address] Care Team Providers Care Technology Project Manager Name Role Phone Lilibeth Phillips MD Primary Care Provider Unavailabl e Encounter Details Date Type Department Care Team (Late st Contact Info) Description 01/23/2020 Lab Requisition [facility] Pathology & Laboratory Medicine - [facility] [address] [place] [address] Gorge Huang PA [address] [place] [address] [id number] Encounter for other general examination Social History [...] Date/Time Associated Diagnosis Comments SURGICAL PATHOLOGY Today 01/23/2020 11 :00 EST documented in this encounter Results * SURGICAL PATHOLOGY (01/23/2020 11:00 EST) Final Diagnosis A. SKIN SHOULDER, LEFT ANTERIOR, PUNCH BIOPSY: - Hypertrophic actinic keratosis. 01/24/2020 16:03 EST [facility] at 1603 Clinical History Atypical nevus, left anterior shoulder 01/24/2020 16:03 EST [facility] Attestation By the signature below, the attending physician certifies that they have 1) personally conducted a gross and/or microscopic examination of the described specimen(s), and/or personally interpreted the results of laboratory testing of the described specimen(s), and 2) personally rendered or confirmed the above diagnosis. 01/24/2020 16:03 [facility] at 1603 Gross Description A. Received in formalin labelled with proper patient identification (initials B, K) and not otherwise specified is a punch biopsy of florence brown encrusted skin (0.4 cm in diameter by 0.2 cm in thickness). The specimen is bisected and submitted in A1. 01/24/2020 7:25 01/24/2020 16:03 [facility] Scanned Images 01/24/2020 16:03 [facility] Tissue TISSUE SPECIMEN FROM SKIN / Unknown 01/23/2020 11:00 EST 01/23/2020 22:44 EST Gorge TORRES PATHOLOGY ORDERABLES [facility] [address] [place] [address] documented in this encounter Visit Diagnoses Diagnosis Encounter for other general examination documented in this encounter Care Teams Technology Project Manager Relationship Specialty Start Date End Date Lilibeth Phillips MD PCP - General 09/01/10 09/09/24 documented as of this encounter
--- OUTSIDE RECORDS SUMMARY | 2024-09-14 13:01 | XMS_ITS | Continuity of Care Document ---
Author Organization [facility] Address [address] [place] [address] Care Team Providers Care Data Analyst Etl Developer Name Role Phone Ameya Snow Primary Care Physician Encounter [facility] Date(s): 09/19/23 - 09/19/[address] [address] Discharge Disposition: Home or Self Care Attending [...] Tolerated well Results Laboratory List Name Date Calcium Level 24 Hour Urine 09/19/23 Creatinine Level 24 Hour Urine 09/19/23 Most recent to oldest [Reference Range]: 1 TV Calcium 1350 mL *NA* (09/19/23 1:04 PM) U24 Creatinine [600-2500 mg/24hr] 392 mg /24hr *LOW* (09/19/23 1:04 PM) TV Creatinine 1350 mL *NA* (09/19/23 1:04 PM) U24 Calcium [100-300 mg/24hr] 77 mg/24hr *LOW* (09/19/23 1:04 PM) Social History Social History Type Response Sex Female Patient Care team information Care Team Personnel Name: Ameya Snow DNP Position: No Access Member Role: Primary Care Physician Address: Address: [address] [place] [address] Name: Nguyễn Underwood MD Position: No Access Member Role: Informed Provider Address: Address: Nephrology [place]pertension [place], [place] [address] Care Team Related Persons Name: MAHNAZ DAWSON Name: ANGELO ESCALONA
--- OUTSIDE RECORDS SUMMARY | 2024-09-14 13:02 | XMS_ITS | Encounter Summary ---
Author Organization [facility] [place] [address] Care Team Providers Care Supervisor Sample Name Role Phone Ameya Acosta DNP Primary Care Provider [phone] Encounter Details Date Type Department Care Team (Late st Contact Info) Description 08/08/2024 11:00 AM EDT - 08/08/2024 11:30 AM EDT [place] [id number] Andrew Berger MD [facility] [place] [address] EGD, UPPER GI ENDOSCOPY (WRVU 2.09) Social History Tobacco Use Types Packs/Day Years [...] Orientation Straight 07/09/2021 4: 47 PM EDT documented as of this encounter Last Filed Vital Signs Vital Sign Reading Time Taken Comments Blood Pressure 140/90 08/08/2024 11:01 AM EDT Pulse 87 08/08/2024 11:01 AM EDT Temperature - - Respiratory Rate 17 08/08/2024 11:01 AM EDT Oxygen Saturation 99% 08/08/2024 11:01 AM EDT Inhaled Oxygen Concentration - - Weight 58.5 kg (129 lb) 08/08/2024 11:01 AM EDT Height 167.6 cm (5' 6) 08/08/2024 11:01 AM EDT Body Mass Index 20.82 08/08/2024 11:01 AM EDT documented in this encounter Discharge Instructions * Discharge Instructions* Shazia Valera RN - 08/08/2024 12:52 PM EDT Upper GI Endoscopy: What to Expect at Home Your Recovery You will be able to go home after your doctor or nurse checks to make sure you are not having any problems. You may have to stay overnight if you had treatment during the test. You may have a sore throat fora day or two after the test. This care sheet gives you a general idea about what to expect after the test. How can you care for yourself at home? Activity Rest when you feel tired. You can do your normal activities when it feels okay to do so. Diet Follow your doctor's directions for eating. Unless your doctor has told you not to, drink plenty of fluids. This helps to replace the fluids that were lost during the prep. Do not drink alcohol. Medicines Your doctor will tell you if and when you can restart your medicines. He or she will also give you instructions about taking any new medicines. If you take blood thinners, such as warfarin (Coumadin), clopidogrel (Plavix), or aspirin, be sure to talk to your doctor. He or she will tell you if and when to start taking those medicines again. Make sure that you understand exactly what your doctor wants you to do. If polyps were removed or a biopsy was done during the test, your doctor may tell you not to take aspirin or other anti-inflammatory medicines for a few days. These include ibuprofen (Advil, Motrin) and naproxen (Aleve). If you have a sore throat the day after the procedure, use an douv-cyw-vnaeswb spray to numb your throat. Sucking on throat lozenges and gargling with warm salt water may also help relieve your symptoms. Other instructions For your safety, do not drive or operate machinery until the medicine wears off and you can think clearly. Your doctor may tell you not to drive or operate machinery until the day after your test. Do not sign legal documents or make major decisions until the medicine wears off and you can think clearly. The anesthesia can make it hard for you to fully understand what you are agreeing to. Additional Information for Sedation Patients For patients who received sedation: You may have received medications before and/or during your procedure which effects your judgement and reaction time. Do not drive, operate machinery, drink alcoholic beverages or make important decisions for 24 hours. Be careful on stairs as you may be unsteady on your feet. You may eat a regular diet as tolerated. Do not smoke if you are alone. IV site: Slight redness or tenderness is normal, you can use a warm compress if you would like. If tenderness and/or redness increase or if foul drainage occurs, please contact your Doctor. Please call [phone] before 8pm Mon-Fri with problems, questions or concerns. If you call after 8pm or on weekends, call the Hospital at [phone] and ask to speak to the Print Binding Worker precision devices inspector/tester and the slitter and rewinder machine operator will contact that person for you. When should you call for help? Call [phone] anytime you think you may need emergency care. For example, call if: You passed out (lost consciousness). You pass maroon or bloody stools. You have trouble breathing. Call your doctor now or seek immediate medical care if: You have pain that does not get better after you take pain medicine. You are sick to your stomach or cannot drink fluids. You have new or worse belly pain. You have blood in your stools. You have a fever. You cannot pass stools or gas. Watch closely for changes in your health, and be sure to contact your doctor if you have any problems. Where can you learn more? [facility] View your After Visit Summary and more online at [email or web address] If you would like to provide feedback about your hospital experience, please call the Office of Patient and Family Relations at . If you have received this After Visit Summary in error, please immediately return it in person to the department, or notify the [facility] Privacy Office by calling toll free at between the hours of 8AM and 5PM to arrange for our retrieval of the documents at no cost to you. Content Version: 12.2 ?? 4194-1821 [employer]. Care instructions adapted under license by [facility]. If you have questions about a medical condition or this instruction, always ask your healthcare professional. [employer] disclaims any warranty or liability for your use of this information. documented in this encounter Medications at Time of Discharge Medication Sig Dispensed Refills Start Date End Date esomeprazole (NexIUM) [address] capsuleIndications:CK D (chronic kidney disease) stage 3, GFR 30-59 ml/min,Scleroderma Take 1 capsule by mouth 2 times daily. 180 capsule 3 07/16/2024 sildenafiL (Revatio) 20 mg tablet TAKE TWO TABLETS BY MOUTH EVERY MORNING, ONE TABLET BY MOUTH IN THE AFTERNOON AND TWO TABLETS BY MOUTH EVERY EVENING. 150 tablet 5 04/18/2024 fluticasone propionate (Flonase) 50 mcg/actuation [place], Suspension Twice a day 02/20/2023 hydrocortisone 2.5 % Ointment as needed. 04/25/2022 LORazepam (Ativan) 1 mg tablet Two pills a week 06/19/2023 zoledronic nfnx-kkfysuee-tolcf (zoledronic Acid) 5 mg/100 mL infusion .every year 03/07/2021 mupirocin (Bactroban) 2 % OintmentIndications:I mpetigo Apply topically 3 times daily for 10-14 days 22 g 11/15/2023 furosemide (Lasix) 20 mg tabletIndications:Sta ge 3a chronic kidney disease Take 0.5 tablets by mouth daily. 30 tablet 3 05/02/2023 potassium chloride ER (Klor-Con M) 10 mEq ER micro-encapsulated crystal tablet Take 1 tablet by mouth daily. 30 tablet 3 05/02/2023 acetaminophen-codeine (Tylenol-Codeine #3) 300-30 mg tablet Take 2 tablets by mouth every 6 hours as needed for Pain. 60 tablet 03/29/2023 cephALEXin (Keflex) 500 mg capsule Take 1 capsule by mouth 4 times daily. 40 capsule 3 02/22/2023 lidocaine-prilocaine (EMLA) Cream APPLY EXTERNALLY TO THE AFFECTED AREA NEEDED 30 g 2 06/13/2022 Ibuprofen 200 mg Capsule Take by mouth. polyethylene glycoL (Miralax) 17 gram/dose Powder Take 17 g by mouth daily. PRN psyllium husk (METAMUCIL ORAL) Take by mouth daily. fish oil-omega-3 fatty acids 1,000 mg Capsule Take 1,000 mg by mouth daily. calcium citrate (Calcitrate) 200 mg (950 mg) Tablet Take 600 mg by mouth daily. glycerin, adult, Suppository daily as needed. 0 10/21/2016 acetaminophen (TYLENOL) 500 mg Tablet Take 2 tablets by mouth every 8 hours as needed for Pain. 30 tablet 1 04/09/2016 loperamide (IMMODIUM) 2 mg Capsule Take 2 mg by mouth 4 times daily as needed for Diarrhea. vitamin E 400 unit Capsule Take 400 Units by mouth daily. cholecalciferol, Vitamin D3, 25 mcg (1,000 unit) Capsule Take 1 tablet by mouth daily. nitroGLYcerin (NITROGLYN) 2 % ointment Place 0.5 inches onto the skin every 6 hours. fosinopriL (Monopril) 20 mg tabletIndications:Scl eroderma,CKD (chronic kidney disease) stage 3, GFR 30-59 ml/min TAKE 1 TABLET BY MOUTH DAILY 90 tablet 3 09/07/2023 09/02/2024 amLODIPine (Norvasc) 5 mg tablet TAKE 1 TABLET BY MOUTH DAILY 90 tablet 3 09/07/2023 09/02/2024 documented as of this encounter Progress Notes * Shazia Valera RN - 08/08/2024 12:53 PM EDT Patient alert and oriented, vital signs stable. Reviewed discharge instructions; patient and verbalized understanding. Copy of instruction sheet with contact numbers for questions/concerns. Pain assessment documented. Patient escorted out of department via wheelchair with . 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 Altered bowel habits R19.4 Fecal incontinence R15.9 Swelling of extremity, right M79.89 Raynaud's disease without gangrene I73.00 Durbin's esophagus K22.70 Lesion of skin of scalp L98.9 Anxiety F41.9 Atypical nevus D22.9 Dysplastic nevus of skin D23.9 Basal cell carcinoma of anterior chest C44.519 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 y/o who presents for EGD for followup of Durbin's esophagus s/p ablation, history of high grade dysplasia MEDICATIONS No current facility-administered medications on file prior to encounter. Current Outpatient Medications on File Prior to Encounter Medication Sig Dispense Refill sildenafiL (Revatio) 20 mg tablet TAKE TWO TABLETS BY MOUTH EVERY MORNING, ONE TABLET BY MOUTH IN THE AFTERNOON AND TWO TABLETS BY MOUTH EVERY EVENING. 150 tablet 5 fluticasone propionate (Flonase) 50 mcg/actuation [place], Suspension Twice a day hydrocortisone 2.5 % Ointment as needed. LORazepam (Ativan) 1 mg tablet Two pills a week zoledronic mlod-uoambhkg-bxmzm (zoledronic Acid) 5 mg/100 mL infusion .every year mupirocin (Bactroban) 2 % Ointment Apply topically 3 times daily for 10-14 days 22 g 0 fosinopriL (Monopril) 20 mg tablet TAKE 1 TABLET BY MOUTH DAILY 90 tablet 3 amLODIPine (Norvasc) 5 mg tablet TAKE 1 TABLET BY MOUTH DAILY 90 tablet 3 furosemide (Lasix) 20 mg tablet Take 0.5 tablets by mouth daily. (Patient not taking: Reported on 02/21/2024) 30 tablet 3 potassium chloride ER (Klor-Con M) 10 mEq ER micro-encapsulated crystal tablet Take 1 tablet by mouth daily. (Patient taking differently: Take 10 mEq by mouth daily. PRN) 30 tablet 3 acetaminophen-codeine (Tylenol-Codeine #3) 300-30 mg tablet Take 2 tablets by mouth every 6 hours as needed for Pain. 60 tablet 0 cephALEXin (Keflex) 500 mg capsule Take 1 capsule by mouth 4 times daily. (Patient not taking: Reported on 02/21/2024) 40 capsule 3 lidocaine-prilocaine (EMLA) Cream APPLY EXTERNALLY TO THE AFFECTED AREA NEEDED 30 g 2 Ibuprofen 200 mg Capsule Take by mouth. polyethylene glycoL (Miralax) 17 gram/dose Powder Take 17 g by mouth daily. PRN psyllium husk (METAMUCIL ORAL) Take by mouth daily. fish oil-omega-3 fatty acids 1,000 mg Capsule Take 1,000 mg by mouth daily. calcium citrate (Calcitrate) 200 mg (950 mg) Tablet Take 600 mg by mouth daily. glycerin, adult, Suppository daily as needed. 0 acetaminophen (TYLENOL) 500 mg Tablet Take 2 tablets by mouth every 8 hours as needed for Pain. 30 tablet 1 loperamide (IMMODIUM) 2 mg Capsule Take 2 mg by mouth 4 times daily as needed for Diarrhea. vitamin E 400 unit Capsule Take 400 Units by mouth daily. cholecalciferol, Vitamin D3, 25 mcg (1,000 unit) Capsule Take 1 tablet by mouth daily. nitroGLYcerin (NITROGLYN) 2 % ointment Place 0.5 inches onto the skin every 6 hours. PHYSICAL EXAM: Last menstrual period 11/27/2014. GEN: Alert, cooperative. Pleasant. In NAD HEENT: No oropharyngeal lesions. Neck supple. No masses. Thyroid symmetric LUNGS: CTAB CARD: RRR without m/g/r RECENT LABS No results found for this or any previous visit (from the past 24 hour(s)). ASSESSMENT AND PLAN Amber Wells is a 64 y.o. y/o who presents for endoscopic evaluation. Risks extensively discussed including bleeding, infection, reaction to anesthesia, perforation, pancreatitis (if applicable), bile duct injury (if applicable), missing a cancer (if applicable) and/or other unforseen complication. Consent signed and patient well informed of the risks of the procedure. documented in this encounter Miscellaneous Notes * Op Note - Andrew Berger MD - 08/08/2024 11:45 AM EDT [facility] Operative Note Patient Name: Amber Wells : [id number] MR#: [id number] Case Date: 08/08/2024 Surgeon: Surgeons and Role: * Andrew Berger MD - Primary Preoperative diagnosis: Durbin's ablation f/up Postoperative diagnosis: * No post-op diagnosis entered * Procedure(s) (LRB): EGD, UPPER GI ENDOSCOPY (WRVU 2.09) (N/A) EGD WITH BIOPSY (WRVU 2.39) (N/A) Anesthesia: MAC Full procedure note is documented under the Procedure section of eDH. documented in this encounter Plan of Treatment Upcoming Encounters Date Type Department Care Team (Late st Contact Info) Description 10/07/2024 11:30 AM EST Office Visit Dermatology at [place] [address] [place] [address] Jo Ordaz MD [facility] [place] [address] 12/13/2024 11:30 AM EST [place] [address] 12/13/2024 1:00 PM EST Office Visit Rheumatology at [facility] [place] [address] Kiet Pardo MD [facility] [place] [address] documented as of this encounter Procedures Procedure Name Priority Date/Time Associated Diagnosis Comments SURGICAL PATHOLOGY Routine 08/08/2024 11 :46 AM EDT Durbin's esophagus with high grade dysplasia Upper Gi Endoscopy, Biopsy ([id number]) 08/08/2024 11:38 AM EDT Durbin's esophagus with high grade dysplasia Upper GI Endoscopy, Diagnostic ([id number]) 08/08/2024 11:38 AM EDT Durbin's esophagus with high grade dysplasia documented in this encounter Results * Surgical Pathology (08/08/2024 11:46 AM EDT) Case Report Surgical Pathology Report ? Case: [id number] ? Authorizing Provider: ??Andrew Berger MD ? Collected: ? 08/08/2024 1146 ? Ordering Location: ? Gastroenterology at [facility] ?? Received: ?08/08/2024 1448 ? Pathologist: ? Josie Rush MD ? Specimens: ?? A) - Esophagus, z-line bxs r/o dysplasia ? B) - Esophagus, Distal ? 08/19/2024 9:35 AM EDT [facility] Final Diagnosis A. Esophagus, z-line bxs r/o dysplasia Biopsy: Squamocolumnar junctional mucosa (cardia- and funic-type) with mild chronic inflammation. There is no evidence of intestinal metaplasia. B. Esophagus, Distal, Biopsy: Esophageal squamous mucosa within normal limits. 08/19/2024 9:35 AM [facility] Clinical Information A. Esophagus, z-line bxs r/o dysplasia Rule out dysplasia Hx of durbin's with previous ablation B. Esophagus, Distal, Rule out dysplasia 08/19/2024 9:35 AM EDT [facility] Gross Description A. Esophagus, z-line bxs [...] labeled B1. sns 08/19/2024 9:35 AM EDT [facility] Result Note Routine 08/19/2024 9:35 AM T [facility] Tissue ESOPHAGEAL STRUCTURE / Unknown 08/08/2024 11:46 AM EDT 08/08/2024 2:48 PM EDT Comment:Hx of durbin's with previous ablation Tissue specimen (specimen) REGION OF ESOPHAGUS / Unknown 08/08/2024 11:48 AM EDT 08/08/2024 2:48 PM EDT Comment:Pre-op diagnosis: Durbin's ablation f/up Andrew Berger MD PATHOLOGY/[place] [address] documented in this encounter Visit Diagnoses Diagnosis Durbin's esophagus with high grade dysplasia Durbin's esophagus Durbin's esophagus with high grade dysplasia Durbin's esophagus documented in this encounter Active and Recently Administered Medications Care Teams Supervisor Sample Relationship Specialty Start Date End Date Ameya Acosta DNP [address] [place] [address] PCP - General Family Medicine 05/01/23 documented as of this encounter
--- OUTSIDE RECORDS SUMMARY | 2024-09-14 13:02 | XMS_ITS | Encounter Summary ---
Author Organization [facility] [place] [address] Care Team Providers Care Garment Sewing Machine Operator Name Role Phone Ameya Acosta DNP Primary Care Provider [phone] Reason for Visit * Reason Comments Medication Refill Encounter Details Date Type Department Care Team (Late st Contact Info) Description 09/02/2024 Refill [place] [address] Kiet Pardo MD [facility] [address] Scleroderma; CKD (chronic kidney disease) stage 3, GFR 30-59 ml/min Social History Tobacco Use Types Packs/Day Years Used Date Smoking Tobacco: Former Cigarettes 1 10 0 03/30/1978 - 03/30/1988 Smokeless Tobacco: Never Comments:never vape Alcohol Use Standard Drinks/Week Comments Not Currently 0 (1 standard drink = 0.6 oz pur e alcohol) once monthly Sex and Gender Information Value Date Recorded Sex Assigned at Female 09/17/2021 7:57 PM EDT Gender Identity Female 11/08/2018 9:52 PM EST Sexual Orientation Straight 07/09/2021 4: 47 PM EDT documented as of this encounter Plan of Treatment Upcoming Encounters Date Type Department Care Team (Late st Contact Info) Description 10/07/2024 11:30 AM EST Office Visit Dermatology at [facility] [address] [place] [address] Jo Ordaz MD [facility] [place] [address] 12/13/2024 11:30 AM EST Appointment [place] [address] 12/13/2024 1:00 PM EST Office Visit [place] [address] Kiet Pardo MD [facility] [place] [address] documented as of this encounter Visit Diagnoses Diagnosis Scleroderma Systemic sclerosis CKD (chronic kidney disease) stage 3, GFR 30-59 ml/min Chronic kidney disease, Stage III (moderate) documented in this encounter Care Teams Garment Sewing Machine Operator Relationship Specialty Start Date End Date Ameya Acosta DNP [address] [facility] [address] [place] [address] PCP - General Family Medicine 05/01/23 documented as of this encounter
--- OUTSIDE RECORDS SUMMARY | 2024-09-14 13:02 | XMS_ITS | Encounter Summary ---
Author Organization [facility] [place] [address] Care Team Providers Care Boiler House Supervisor Name Role Phone Ameya Acosta DNP Primary Care Provider Encounter Details Date Type Department Care Team (Latest Contact Info) Description 06/07/2024 Travel Social History Tobacco Use Types Packs/Day Years Used Date Smoking Tobacco: Former Cigarettes 1 10 0 03/30/1978 - 03/30/1988 Smokeless Tobacco: Never Comments:never vape Alcohol Use Standard Drinks/Week Comments Yes 0 (1 standard drink = 0.6 oz [...] 11:30 AM EST Office Visit Dermatology at [address] [place] [address] Jo Ordaz MD [facility] [place] [address] 12/13/2024 11:30 AM EST Appointment [place] [address] 12/13/2024 1:00 PM EST Office [place] [address] Kiet Pardo MD [facility] [place] [address] documented as of this encounter Visit Diagnoses Not on filedocumented in this encounter Care Teams Boiler House Supervisor Relationship Specialty Start Date End Date Ameya Acosta DNP [address] [place] [address] PCP - General Family Medicine 05/01/23 documented as of this encounter
--- OUTSIDE RECORDS SUMMARY | 2024-09-14 13:02 | XMS_ITS | Encounter Summary ---
Author Organization [facility], Located Within [facility] [place] [address] Care Team Providers Care Embroiderer Hand Name Role Phone Ameya Acosta [facility] Primary Care Provider [phone] Reason for Visit * Reason Comments Medication Refill Encounter Details Date Type Department Care Team (Late st Contact Info) Description 07/14/2023 [place] [address] Kiet Pardo MD [facility] [place] [address] Scleroderma; Raynaud's disease without gangrene Social History Tobacco Use Types Packs/Day Years [...] 11:30 AM EST Office Visit Dermatology at [facility] [address] [place] [address] Jo Ordaz MD [facility] [place] [address] 12/13/2024 11:30 AM EST Appointment Pulmonology at [place] [phone] 12/13/2024 1:00 PM EST Office [place] [address] Kiet Pardo MD [facility] [place] [address] documented as of this encounter Visit Diagnoses Diagnosis Scleroderma Systemic sclerosis Raynaud's disease without gangrene documented in this encounter Care Teams Embroiderer Hand Relationship Specialty Start Date End Date Ameya Acosta DNP [address] [place] [address] PCP - General Family Medicine 05/01/23 documented as of this encounter
--- OUTSIDE RECORDS SUMMARY | 2024-09-14 13:02 | XMS_ITS | Encounter Summary ---
Author Organization [facility] Address [facility] [place] [address] Care Team Providers Care Pleater Name Role Phone Ameya Acosta [facility] Primary Care Provider [phone] Encounter Details Date Type Department Care Team (Late st Contact Info) Description 11/15/2023 1:00 PM EST Office Visit Dermatology at [address] [address] Ana James MD [facility] [place] [address] Neoplasm of unspecified behavior of bone, soft tissue, and skin; Actinic keratoses; Verruca vulgaris; Telangiectasias; Impetigo; Scleroderma; Calcinosis cutis; Lentigines; Seborrheic keratoses; Allen angioma; History of basal cell carcinoma Social History Tobacco Use Types Packs/Day Years [...] PM EDT documented as of this encounter Progress Notes * Ana James MD - 11/15/2023 1:00 PM EST Images from the original note were not included. DEPARTMENT OF DERMATOLOGY Medical Dermatology Clinic Provider: Ana James MD Patient's preferred name Amber Preferred contact method for results [x]Phone [x]myD-H []Letter Detailed phone message OK? Yes Are there any other people with whom we may discuss your care? 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 Patient returns to clinic today for fullskin exam. Normally sees Dr. Ordaz for FSE. - Patient reports a recent family history of BCC in her sister. Concerned about several spots on face. One on the right forehead is painful. - Patient would like to discuss if further treatment of calcinosis cutis is required. - Patient concerned about red spots on the face and wondering if they could be removed. - Patient wondering if some of the spots on her neck and left scalp could be removed as she does not like the appearance. Last visit at Dermatology: 03/15/2023 Medications: Reviewed in eD-H Allergies: Reviewed in eD-H Skin Examination: Full skin examination: Patient asked to undress to their comfort level. Verbalized that the provider???s preference is that the patient remove all clothing and that the provider will not examine areas patient elects to keep covered. Patient elects to keep underwear on and have the following examined: scalp, hair, face, ears, neck, chest, axillae, abdomen, back, and upper and lower extremities. Genitalia and buttocks were not examined. Assessment/Plan #. Neoplasm of unspecified behavior of the skin (A) DDx. Lentigo R/O Lentigo Maligna - 8mm brown macule with areas of hyper and hypopigmentation onthe central chest (Figure 1). - Recommended a skin biopsy to confirm/clarify the nature of the skin lesion. After discussion of potential risks (scarring, bleeding, infection) and recurrence, patient agreed to proceed. - Patient denies known allergies to lidocaine and epinephrine. Procedure: Skin shave biopsy Location: Central chest Time of procedure: 1:45 PM Discussed indications for procedure and expectations including risks and benefits. Verbal consent obtained. Time out performed. Skin prepped with alcohol. Local anesthesia with 1% xylocaine, 1/100,000 epinephrine. A sample of the lesion was removed by shave technique to the level of the dermis and s ubmitted to Pathology. Hemostasis obtained (AlCl). There were no complications; patient tolerated the procedure well. Wound dressed. Post-procedure expectations, wound care and activity restrictions reviewed. - Follow-up based on pathology results. (B) DDx. BCC vs. SCCis vs. Other - 1cm pink plaque with area of hypopigmentation on the central upper back (Figure 2). - Recommended a skin biopsy to confirm/clarify the nature of the skin lesion. After discussion of potential risks (scarring, bleeding, infection) and recurrence, patient agreed to proceed. - Patient denies known allergies to lidocaine and epinephrine. Procedure: Skin shave biopsy Location: Central upper back Time of procedure: 1:46 PM Discussed indications for procedure and expectations including risks and benefits. Verbal consent obtained. Time out performed. Skin prepped with alcohol. Local anesthesia with 1% xylocaine, 1/100,000 epinephrine. A sample of the lesion was removed by shave technique to the level of the dermis and s ubmitted to Pathology. Hemostasis obtained (AlCl). There were no complications; patient tolerated the procedure well. Wound dressed. Post-procedure expectations, wound care and activity restrictions reviewed. - Follow-up based on pathology results. #. Actinic Keratoses - Ill-defined gritty papules on the nose x2, and chest x2 - Explained premalignant potential of these lesions. - Discussed importance of sun protection (protective clothing and SPF 30+ broad- spectrum sunscreen)and sun avoidance strategies. Recommended diligent application to sun exposed areas of the chest due to signs of actinic damage. - Plan to discuss starting 5-FU or AK field therapy at next follow up with Dr. Ordaz given actinicdamage on the face, particularly the right forehead. - Handout given today for 5-FU - Discussed treatment with cryotherapy. Patient elects to proceed with cryotherapy today. - Instructed patient to return to clinic for re-evaluation if lesion(s) does not resolve as expected with this treatment. Procedure: Destruction of lesion(s) with cryotherapy (LN2). Location(s): As noted above. Number: 4 Discussed procedure and expectations, including risks and benefits. Verbal consent obtained. Treated with LN2. There were no complications; Patient tolerated the procedure well. Post-procedure expectations and wound care reviewed. #. Wart (Verruca Vulgaris) - Verrucous papule with pin-point vascular pattern noted on dermoscopy on the left anterior thigh x1 - Discussed viral etiology (relative of HPV in skin) and rationale for therapy directed at reducingviral load and virus ultimately being controlled by immune response. - Reviewed in-office and at-home treatment options. - [place] decision to proceed with cryotherapy in the clinic today. Patient is aware that multiple treatments may be required. Procedure: Destruction of lesion(s) with cryotherapy (LN2). Location(s): As noted above Number: 1 Discussed procedure and expectations including risks (especially hypopigmentation) and benefits. Verbal consent obtained. Frozen with LN2, 15-30 second thaw time, twice. There were no complications; patient tolerated the procedure well. Post-procedure expectations and wound care reviewed. #. Diffuse Scleroderma - [id number] skin of scleroderma on the trunk and extremities, sclerodactyly, mat telangiectasias on face, chest, and back, perioral furrowing, firm white subcutaneous nodules on the ears, forearm, abdomen - Hx of renal crisis and consequently developed CKDIII, Joseph's esophagus and reflux, calcinosis cutis, osteoporosis - Symptoms managed by rheumatology (last seen 12/16/22) - Pt denies being on any immunosuppressive medications #. Biopsy proven Calcinosis Cutis - firm, white subcutaneous nodules on the left extensor forearm x1, right ear and right ear, scattered on abdomen - s/p shave biopsy via the right antitragus performed on 03/15/2023 - Calcinosis cutis therapies managed by Dr. Ordaz. - Plan to follow up with Dr. Ordaz for further management of calcinosis cutis. #. Mat Telangiectasias - Dilated blood vessels on the face and chest - Discussed benign nature of lesion(s) and provided reassurance. No treatment necessary at this time. - Discussed most likely related to her diffuse scleroderma. - Briefly discussed the option of treating cosmetically with V-Beam. Patient was provided with Dr. Fitzpatrick's contact information and was quoted $200 for a cosmetic consultation fee if patient wises to pursue cosmetic treatment. #. Impetigo - Honey colored crusting on the right forehead. - Discussed bacterial etiology. - Start Rx mupirocin 2% ointment: Apply three times daily to affected areas on the forehead for 2 weeks. #. Seborrheic Keratoses - Stuck on, waxy papules on the trunk and extremities. - Discussed benign nature of lesions and provided reassurance. No treatment necessary at this time. - Discussed with patient treatment of lesions is considered cosmetic and not covered by insurance. Patient was quoted $100 for removal up to ten lesions. Patient is interested in cosmetic treatment and will schedule for next available appointment upon exit of today's visit. #. Lentigines - Scattered light-brown, evenly pigmented, well-demarcated macules on sun-exposed areas of the chest. - No worrisome pigmented lesions. Discussed benign nature of lesions and provided reassurance. Willcontinue to monitor. #. Allen Angiomas - Multiple bright red, well-demarcated papules on the trunk and extremities. - Discussed benign nature of lesions and provided reassurance. No treatment necessary at this time. #. History of sBCC - Well-healed scar on the left chest per skin history. - No evidence of recurrence; will continue to monitor. Figure 1 Figure 2 Photo(s) taken and charted with patient's verbal consent. Other: Sun protection discussed (protective clothing and SPF30+ broad-spectrum sunscreen) RTC: Pending pathology; Next available follow up with Dr. Ordaz (note routed to Dr. Ordaz). []Note routed to account auditor []Recall placed in scheduling system []Appointment scheduled at checkout Scribe attestation: James Mchugh has performed the documentation for this encounter in the presence of and acting as a scribe for Ana James MD. I performed the above scribed service and agree with the accuracy of the documentation in this encounter. Reviewed and signed by: Ana James MD Dermatology [facility] Patient seen and evaluated with staff community outreach manager: Matt Kelley MD Dermatology [facility] * Matt Kelley MD - 11/15/2023 1:00 PM EST I directly supervised Ana James MD in the care of this Dermatology patient in person. I saw and evaluated this patient with Ana James MD. Ana James MD presented the history and physical exam details to me, then we saw the patient together, and I confirmed these findings. I agree with details as written. My physical examination confirms Ana James MD's findings. The assessment and plan were formulated in discussion with me at the time of visit, and I agree with them as documented. MATT KELLEY MD Staff Teletype Clerk Department of Dermatology [facility] * Ana James MD - 11/15/2023 1:00 PM EST DIAGNOSIS A - Central chest, skin shave biopsy: - Solar lentigo B - Central upper back, skin shave biopsy: - Basal cell carcinoma, superficial type, present at the peripheral specimen edge Called pt to discuss biopsy report. A) Reassured benign nature of lesion. No further treatment necessary. B) Discussed diagnosis of BCC and treatment options and their risks and benefits, including LN2 vs.ED&C. Pt prefers LN2. Kareen, could you schedule Amber for LN2 of sBCC on the central upper back at her earliest convenience? She does have a FSE appt with Dr. Ordaz on 02/21/24 if needed, but may have many other things to address that visit. documented in this encounter Plan of Treatment Upcoming Encounters Date Type Department Care Team (Late st Contact Info) Description 10/07/2024 11:30 AM EST Office Visit Dermatology at [facility] [address] [place] [address] Jo Ordaz MD [facility] [place] [address] 12/13/2024 11:30 AM EST Appointment [place] [address] 12/13/2024 1:00 PM EST Office [place] [phone] Kiet Pardo MD [facility] [place] [address] documented as of this encounter Procedures Procedure Name Priority Date/Time Associated Diagnosis Comments SURGICAL PATHOLOGY REPORT Routine 11/15/2023 2:10 PM EST SPECIMEN TO PATHOLOGY Routine 11/15/2023 2:10 PM EST Neoplasm of unspecified behavior of bone, soft tissue, and skin SPECIMEN TO PATHOLOGY Routine 11/15/2023 2:10 PM EST Neoplasm of unspecified behavior of bone, soft tissue, and skin documented in this encounter Results * (ABNORMAL) Surgical Pathology Report (11/15/2023 2:10 PM EST) Final Diagnosis [id number] ? Location: [facility] The signing pathologist has (i) examined the relevant preparation(s) for the specimen(s) and (ii) rendered or confirmed the diagnosis(es). . ?Surgical Pathology DIAGNOSIS A - Central chest, skin shave biopsy: - Solar lentigo B - Central upper back, skin shave biopsy: - ??Basal cell carcinoma, superficial type, present at the peripheral specimen edge Electronically signed by: ?Baylee HEARD, PhD, Anant Sotelo Verified: ??11/24/2023 10:11 ??Dermatopathologis t, Bone & Soft Tissue Pathologist Performed at: ??-[facility] Dept. of Pathology, [place] [address] Slab Inspector: Danny Rowland MD, AP, ??CLIA Certificate: [id number] DISCUSSION THIS RESULT REQUIRES PHYSICIAN/A.P.P. FOLLOW UP SPECIMEN(S) SUBMITTED A - Central chest, skin shave biopsy (1) B - Central upper back, skin shave biopsy (1) CLINICAL INFORMATION A - DDx: Lentigo rule out lentigo maligna - 8 mm brown macule with areas of hyper/ hypopigmentation B - BCC vs SCCIS vs other-1 cm pink plaque with area of hypopigmentation SPECIMEN PROCESSING A - Labeled/Fixative: Central chest, formalin. Quantity/Size: ??Single, 0.8 x 0.6 x 0.1 cm. Tissue Description: Shave of claire skin with an eccentric brown macule, 0.6 cm. Sections/Processing : Inked, trisected and entirely submitted in 1 cassette labeled A1. B - Labeled/Fixative: Central upper back, formalin. Quantity/Size: ??Single, 0.7 x 0.3 x 0.1 cm. Tissue Description: Shave of pale, claire-florence skin. Sections/Processing : Inked, trisected and entirely submitted in 1 cassette labeled B1. ??pps(A) 11/24/2023 10:11 AM EST [facility] SPECIMEN FROM SKIN / Unknown 11/15/2023 2:10 PM EST 11/15/2023 2:10 PM EST SPECIMEN FROM SKIN / Unknown 11/15/2023 2:10 PM EST 11/15/2023 2:10 PM EST Ana James MD PATHOLOGY/CYTOLOGY O [facility] [place] [address] [facility] [place] [address] * Specimen to Pathology (11/15/2023 2:10 PM EST) AP Specimen 11/15/2023 2:10 PM EST 11/15/2023 2:10 PM EST Narrative [facility] - 11/15/2023 2:10 PM EST Specimen requisition ordered. ??Separate Pathology report to follow Matt Kelley MD PATHOLOGY/CYTOLOGY Patricia CRAWFORD [facility] [place] [address] * Specimen to Pathology (11/15/2023 2:10 PM EST) AP Specimen 11/15/2023 2:10 PM EST 11/15/2023 2:10 PM EST Narrative [facility] - 11/15/2023 2:10 PM EST Specimen requisition ordered. ??Separate Pathology report to follow Matt Kelley MD PATHOLOGY/CYTOLOGY O [facility] [place] [address] documented in this encounter Visit Diagnoses Diagnosis Neoplasm of unspecified behavior of bone, soft tissue, and skin Actinic keratoses Actinic keratosis Verruca vulgaris Viral warts, unspecified Telangiectasias Other and unspecified capillary diseases Impetigo Scleroderma Systemic sclerosis Calcinosis cutis Degenerative skin disorder Lentigines Other dyschromia Seborrheic keratoses Allen angioma Nevus, non-neoplastic History of basal cell carcinoma Personal history of other malignant neoplasm of skin documented in this encounter Care Teams Pleater Relationship Specialty Start Date End Date Ameya Acosta DNP [address] [place] [address] PCP - General Family Medicine 05/01/23 documented as of this encounter
--- OUTSIDE RECORDS SUMMARY | 2024-09-14 13:02 | XMS_ITS | Encounter Summary ---
Author Organization [facility] [place] [address] Care Team Providers Care Stock Worker Name Role Phone Ameya Acosta DNP Primary Care Provider [phone] Reason for Visit * Reason Comments Medication Refill Encounter Details Date Type Department Care Team (Late st Contact Info) Description 03/08/2024 Refill [place] [address] Kiet Pardo MD [facility] [place] [address] Social History Tobacco Use Types Packs/Day Years [...] 11:30 AM EST Office Visit Dermatology at [facility] [address] [place] [address] Jo Ordaz MD [facility] [place] [address] 12/13/2024 11:30 AM EST Appointment [place] [address] 12/13/2024 1:00 PM EST Office [place] [address] Kiet Pardo MD [facility] [place] [address] documented as of this encounter Visit Diagnoses Not on filedocumented in this encounter Care Teams Stock Worker Relationship Specialty Start Date End Date Ameya Acosta DNP [address] [place] [address] PCP - General Family Medicine 05/01/23 documented as of this encounter
--- OUTSIDE RECORDS SUMMARY | 2024-09-14 13:02 | XMS_ITS | Encounter Summary ---
Author Organization [facility] [place] [address] Care Team Providers Care Contract Sheltered Workshop Supervisor Name Role Phone Ameya Acosta DNP Primary Care Provider [phone] Reason for Visit * Reason Comments Medication Refill Encounter Details Date Type Department Care Team (Late st Contact Info) Description 05/12/2023 Ref[place] [address] Kiet Pardo MD [facility] [place] [address] Social History Tobacco Use Types Packs/Day Years [...] 11:30 AM EST Office Visit Dermatology at [facility] [address] [place] [address] Jo Ordaz MD [facility] [place] [address] 12/13/2024 11:30 AM EST Appointment [place] [address] 12/13/2024 1:00 PM EST Office [place] [address] Kiet Pardo MD [facility] [address] documented as of this encounter Visit Diagnoses Not on filedocumented in this encounter Care Teams Contract Sheltered Workshop Supervisor Relationship Specialty Start Date End Date Ameya Acosta DNP [address] [place] [address] PCP - General Family Medicine 05/01/23 documented as of this encounter
--- OUTSIDE RECORDS SUMMARY | 2024-09-14 13:02 | XMS_ITS | Encounter Summary ---
Author Organization [facility] [place] [address] Care Team Providers Care Credit Union Examiner Name Role Phone Ameya Acosta DNP Primary Care Provider [phone] Encounter Details Date Type Department Care Team (Latest Contact Info) Description 11/27/2023 Travel Social History Tobacco Use Types Packs/Day [...] 11:30 AM EST Office Visit Dermatology at [address] [address] Jo Ordaz MD [facility] [place] [address] 12/13/2024 11:30 AM EST Appointment [place] [address] 12/13/2024 1:00 PM EST Office [place] [address] Kiet Pardo MD [facility] [place] [address] documented as of this encounter Visit Diagnoses Not on filedocumented in this encounter Care Teams Credit Union Examiner Relationship Specialty Start Date End Date Ameya Acosta DNP [address] [place] [address] PCP - General Family Medicine 05/01/23 documented as of this encounter
--- OUTSIDE RECORDS SUMMARY | 2024-09-14 13:02 | XMS_ITS | Encounter Summary ---
[place] [address] Care Team Providers Care Director Communications Name Role Phone Ameya Acosta [facility] Primary Care Provider Reason for Referral * Diagnostic Test (Routine) - Closed Specialty Diagnoses / Procedures Referred By Contac t Referred To Contact Radiology Diagnoses Desmoid fibromatosis Procedures MRI Upper Extremity Non Joint wwo Contrast Solomon Quiros MD [facility] [address] [place] [address] Referral ID Status Reason Start Date Expiration Date V isits Requested Visits Authorized [id number] Closed Specialty Service Requested 07/20/2022 01/18/2024 1 1 Reason for Visit * Diagnostic Test (Routine) - Closed Specialty Diagnoses / Procedures Referred By Contac t Referred To Contact Radiology Diagnoses Desmoid fibromatosis Procedures MRI Upper Extremity Non Joint wwo Contrast Solomon Quiros MD [facility] [place] [place] [address] [place] [address] Referral ID Status Reason Start Date Expiration Date V isits Requested Visits Authorized [id number] Closed Specialty Service Requested 07/20/2022 01/18/2024 1 1 Encounter Details Date Type Department Care Team (Latest Contact Info) Description 08/24/2023 8:44 AM EDT - 08/24/2023 11:59 PM EDT Hospital Encounter MRI at [facility] [place] [address] Solomon Quiros MD [facility] [place] [place] [address] Desmoid fibromatosis Discharge Disposition: Home Social History Tobacco Use Types Packs/Day Years [...] PM EDT documented as of this encounter Medications at Time of Discharge Medication Sig Dispensed Refills Start Date End Date fluticasone propionate (Flonase) 50 mcg/actuation [place], Suspension Twice a day 02/20/2023 hydrocortisone 2.5 % Ointment as needed. 04/25/2022 LORazepam (Ativan) 1 mg tablet Two pills a week 06/19/2023 zoledronic [id number]-babfv (zoledronic Acid) 5 mg/100 mL infusion .every year 03/07/2021 furosemide (Lasix) 20 mg tabletIndications:Sta ge 3a [...] inches onto the skin every 6 hours. clobetasoL (Temovate) 0.05 % Ointment Twice a day 02/01/2021 02/21/2024 sildenafiL (Revatio) 20 mg tablet TAKE TWO TABLETS BY MOUTH EVERY MORNING, ONE TABLET BY MOUTH IN THE AFTERNOON AND TWO TABLETS BY MOUTH EVERY EVENING. 150 tablet 5 07/14/2023 04/18/2024 esomeprazole (NexIUM) [address] capsuleIndications:CK D (chronic kidney disease) stage 3, GFR 30-59 ml/min,Scleroderma TAKE ONE CAPSULE BY MOUTH TWICE DAILY 180 capsule 3 07/03/2023 07/16/2024 fosinopriL (MONOPRIL) 20 mg TabletIndications:Scl eroderma,CKD (chronic kidney disease) stage 3, GFR 30-59 ml/min Take 1 tablet by mouth daily. 90 tablet 3 09/19/2022 09/07/2023 amLODIPine (Norvasc) 5 mg Tablet TAKE 1 TABLET BY MOUTH DAILY 90 tablet 3 06/23/2022 09/07/2023 documented as of this encounter Plan of Treatment Upcoming Encounters Date Type Department Care Team (Late st Contact Info) Description 10/07/2024 11:30 AM EST Office Visit Dermatology at [facility] [address] [place] [address] Jo Ordaz MD [facility] [place] [address] 12/13/2024 11:30 AM EST Appointment [place] [phone] 12/13/2024 1:00 PM EST Office [place] [address] Kiet Pardo MD [facility] [place] [address] documented as of this encounter Procedures Procedure Name Priority Date/Time Associated Diagnosis Comments MRI UPPER EXTREMITY NON JOINT WITH/WO CONTRAST Routine 08/24/2023 10:20 AM EDT Desmoid fibromatosis documented in this encounter Results * MRI Upper Extremity Non Joint wwo Contrast (08/24/2023 10:20 AM EDT) Anatomical Region Laterality Modality Shoulder, Arm, Elbow, Forearm, Wrist, Hand Magnetic Resonance Impressions 08/24/2023 10:45 PM EDT impression: 1. ??Thin bands of irregular soft tissues in subcutaneous fat of RIGHT and LEFT posterior chest mccallum are redemonstrated. 2. ??These fine enhancing soft tissue lesions are best seen on sagittal post contrast images. 3. ??These markedly thin lesions are difficult to compare. No definite change seen. No new lesion detected. 4. ??Findings consistent with known dermoid lesion Thank you for letting us participate in the care of this patient. ??If you are a health care provider and have any questions regarding this report, please contact the number below. ??For patients who have questions please contact the health home health care physician that requested your imaging first. ? Electronically signed by: Debbie Briones MD, [facility] ([phone]), at 08/24/2023 10:45 PM Narrative 08/24/2023 10:45 PM EDT EXAMINATION: MRI UPPER EXTREMITY NON JOINT WWO CONTRAST CLINICAL HISTORY: History of LEFT upper back desmoid. This is surveillance, per ordering provider technique: Pre and postcontrast images of the upper chest were acquired. Contrast: 12 ml of dotarem administered intravenously. COMPARISON: MRI June 2022. findings: ?? No interval change in bilateral posterior chest wall thin bands of irregular subcutaneous linear soft tissues with enhancing dark T1 signal. These are not well seen on T2 images. No new lesions seen. Right posterior chest wall At level of distal end of scapula, unchanged linear irregular dark T1 markings intermixed with ferromagnetic postsurgical artifacts in the subcutaneous fat are superficial to the trapezius muscle, series 7 and series 21 image 27. This linear markings starts at the spinous process apex and extend to the RIGHT chest for distance of 5 cm, series 7001 image 26. Enhancement, sagittal image, series 97409 image 75-22: LEFT posterior chest wall Unchanged linear spiculated subcutaneous dark T1 and T2 markings lateral to the spinous process. This subcutaneous soft tissue irregularity is near tip of scapula, series 7001 image 12, measuring 25 x 6 mm. It is superficial to the trapezius muscle. No enhancement seen. Enhancement, sagittal series 22950 image 84-102: This thin subcutaneous focus has uniform enhancement, ??unchanged. No new lesions seen Neurovascular involvement: Absent Bone invasion or periosteal reaction: Absent Procedure Note Debbie Briones MD - 08/24/2023 EXAMINATION: MRI UPPER EXTREMITY NON JOINT WWO CONTRAST CLINICAL HISTORY: History of LEFT upper back desmoid. This issurveillance, per ordering provider technique: Pre and postcontrast images of the upper chest were acquired. Contrast: 12 ml of dotarem administered intravenously. COMPARISON: MRI June 2022. findings: No interval change in bilateral posterior chest wall thin bands ofirregular subcutaneous linear soft tissues with enhancing dark T1 signal. These arenot well seen on T2 images. No new lesions seen. Right posterior chest wall At level of distal end of scapula, unchanged linear irregular dark [id number] intermixed with ferromagnetic postsurgical artifacts in the subcutaneousfat are superficial to the trapezius muscle, series 7 and series 21 image 27. This linear markings starts at the spinous process apex and extend to theRIGHT chest for distance of 5 cm, series 7001 image 26. Enhancement, sagittal image, series 08022 image 75-22: LEFT posterior chest wall Unchanged linear spiculated subcutaneous dark T1 and T2 markings lateralto the spinous process. This subcutaneous soft tissue irregularity is near tip of scapula, [id number] image 12, measuring 25 x 6 mm. It is superficial to the trapezius muscle.No enhancement seen. Enhancement, sagittal series 93027 image 84-102: This thin subcutaneous focus has uniform enhancement, unchanged. No newlesions seen Neurovascular involvement: Absent Bone invasion or periosteal reaction: Absent IMPRESSION impression: 1. Thin bands of irregular soft tissues in subcutaneous fat of RIGHT andLEFT posterior chest mccallum are redemonstrated. 2. These fine enhancing soft tissue lesions are best seen on sagittalpost contrast images. 3. These markedly thin lesions are difficult to compare. No definitechange seen. No new lesion detected. 4. Findings consistent with known dermoid lesion Thank you for letting us participate in the care of this patient. If youare a health care provider and have any questions regarding this report,please contact the number below. For patients who have questions please contactthe health home health care physician that requested your imaging first. Electronically signed by: Debbie Briones MD, [facility]([phone]), at 08/24/2023 10:45 PM Solomon Quiros MD [facility] MRI ORDERABLES documented in this encounter Visit Diagnoses Diagnosis Desmoid fibromatosis Other benign neoplasm of connective and other soft tissue of unspecified site documented in this encounter Administered Medications Inactive Administered Medications - up to 3 most recent administrations Medication Order MAR Action Action Date Dose Rate Site gadoterate meglumine (Dotarem) (0.5 mMol/mL) injection solution 0-100 mL 0-100 mL, Intravenous, ONCE PRN, 1 dose, Starting on Nancy 08/24/23 at 0949, Until Nancy 08/24/23 at 1001, Per Protocol, Radiology Contrast, Routine Given 08/24/2023 10:01 AM EDT 13 mLs documented in this encounter Care Teams Director Communications Relationship Specialty Start Date End Date Ameya Acosta DNP [address] [place] [address] PCP - General Family Medicine 05/01/23 documented as of this encounter
--- OUTSIDE RECORDS SUMMARY | 2024-09-14 13:02 | XMS_ITS | Encounter Summary ---
Author Organization [facility] Address [facility] [place] [address] Care Team Providers Care Emr Specialist Name Role Phone Ameya Acosta DNP Primary Care Provider [phone] Encounter Details Date Type Department Care Team (Late st Contact Info) Description 08/24/2023 11:00 AM EDT Office Visit [place] [address] Solomon Quiros MD [facility] [place] [address] Desmoid fibromatosis Social History Tobacco Use Types Packs/Day Years [...] as of this encounter Progress Notes * Solomon Quiros MD - 08/24/2023 11:00 AM EDT Patient returns for surveillance of desmoid tumors. She reports no new lesions. No new lumps or bumps of concern. Exam reveals well-healed scar, no nodularity or evidence of recurrence. MRI reviewed without evidence of recurrence. RTC in 2 years with repeat scan Solomon Quiros MD, MPH Surgical Oncology documented in this encounter Plan of Treatment Upcoming Encounters Date Type Department Care Team (Late st Contact Info) Description 10/07/2024 11:30 AM EST Office Visit Dermatology at [place] [address] [place] [address] Jo Ordaz MD [facility] [place] [address] 12/13/2024 11:30 AM EST Appointment [place] [address] 12/13/2024 1:00 PM EST Office [place] [address] Kiet Pardo MD [facility] [place] [address] Scheduled Orders Name Type Priority Associated Diagnoses Orde r Schedule Creatinine Lab Routine Desmoid fibromatosis Expected: 09/02/2023, Expires: 09/02/2024 documented as of this encounter Visit Diagnoses Diagnosis Desmoid fibromatosis Other benign neoplasm of connective and other soft tissue of unspecified site documented in this encounter Care Teams Emr Specialist Relationship Specialty Start Date End Date Ameya Acosta DNP [address] [place] [address] PCP - General Family Medicine 05/01/23 documented as of this encounter
--- OUTSIDE RECORDS SUMMARY | 2024-09-14 13:02 | XMS_ITS ---
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 +b catenin. Mitosis 12/10HPF AK (actinic keratosis) 05/25/2013 Solar lentigo 05/25/2013 Multiple nevi 05/25/2013 CKD (chronic kidney disease) stage 4, GFR 15-29 ml/min 04/20/2010 Overview (08/19/2012): related to scleraderma crisis Had tunnelled dialysis catheter removed at [facility] in June 2010 Scleroderma 11/20/1990 Anemia of chronic renal failure, stage 4 (severe ) GERD (gastroesophageal reflux disease) Current Oncology Plans No current plan information found. Other Current Plans DH ZOLEDRONIC ACID (RECLAST) FOR TREATMENT OF OSTEOPOROSIS* Plan Start Date: 12/16/2022 Plan Provider:Anant Perez PA Linked Problems Scleroderma Treatment Medications No medications scheduled. Past Plans Radiation Treatments * No radiation treatments are documented for this patient in [facility]. Treatments may have been administered in another system. Resolved Problems Problem Noted Date Diagnosed Date Resolved Date Raynaud phenomenon 04/08/2016 0 Other disorder of muscle, li gament, and fascia 12/09/2014 06/09/2020
--- OUTSIDE RECORDS SUMMARY | 2024-09-14 13:02 | XMS_ITS | Encounter Summary ---
Author Organization [facility] [place] [address] Care Team Providers Care Disability Attorney Name Role Phone Ameya Acosta DNP Primary Care Provider [phone] Reason for Visit * Reason Comments Medication Refill Encounter Details Date Type Department Care Team (Late st Contact Info) Description 07/01/2023 [place] [address] Andrew Berger MD [facility] [place] [address] CKD (chronic kidney disease) stage 3, GFR 30-59 ml/min; Scleroderma Social History Tobacco Use Types Packs/Day Years [...] 11:30 AM EST Office Visit Dermatology at [facility] [address] [address] Jo Ordaz MD [facility] [place] [address] 12/13/2024 11:30 AM EST Appointment [place] [address] 12/13/2024 1:00 PM EST Office [place] [phone] Kiet Pardo MD [facility] [place] [address] documented as of this encounter Visit Diagnoses Diagnosis CKD (chronic kidney disease) stage 3, GFR 30-59 ml/min Chronic kidney disease, Stage III (moderate) Scleroderma Systemic sclerosis documented in this encounter Care Teams Disability Attorney Relationship Specialty Start Date End Date Ameya Acosta DNP [address] [place] [address] PCP - General Family Medicine 05/01/23 documented as of this encounter
--- OUTSIDE RECORDS SUMMARY | 2024-09-14 13:02 | XMS_ITS | Encounter Summary ---
[place] [address] Care Team Providers Care Orthodontist Vice President Name Role Phone Ameya Acosta [facility] Primary Care Provider [phone] Encounter Details Date Type Department Care Team (Late st Contact Info) Description 01/18/2024 Telephone [place] [address] Rosalina Rivas Social History Tobacco Use Types Packs/Day Years [...] PM EDT documented as of this encounter Miscellaneous Notes * Telephone Encounter - Rosalina Rivas - 01/18/2024 2:39 PM EST Patient received recall letter to scheduled EGD in April 2024 She is having other issues that she is seeing a surgeon for She will call us to schedule EGD after she has other issue taken care of documented in this encounter Plan of Treatment Upcoming Encounters Date Type Department Care Team (Late st Contact Info) Description 10/07/2024 11:30 AM EST Office Visit Dermatology at [facility] [address] [place] [address] Jo Ordaz MD [facility] [place] [address] 12/13/2024 11:30 AM EST Appointment [place] [address] 12/13/2024 1:00 PM EST Office Visit [place] [address] Kiet Pardo MD [facility] [place] [address] documented as of this encounter Visit Diagnoses Not on filedocumented in this encounter Care Teams Orthodontist Vice President Relationship Specialty Start Date End Date Ameya Acosta DNP [address] [place] [address] PCP - General Family Medicine 05/01/23 documented as of this encounter
--- OUTSIDE RECORDS SUMMARY | 2024-09-14 13:02 | XMS_ITS | Encounter Summary ---
[facility] Address [facility] [place] [address] Care Team Providers Care Grounds Cleaner Name Role Phone Ameya Acosta [facility] Primary Care Provider [phone] Encounter Details Date Type Department Care Team (Latest Contact Info) Description 12/08/2023 11:56 AM EST - 12/08/2023 11:59 PM EST Hospital Encounter XRay at [address] [place] [address] Kiet Pardo MD [facility] [place] [address] Scleroderma Discharge Disposition: Home Social History Tobacco Use [...] End Date fluticasone propionate (Flonase) 50 mcg/actuation [place], Suspension Twice a day 02/20/2023 hydrocortisone 2.5 % Ointment as needed. 04/25/2022 LORazepam (Ativan) 1 mg tablet Two pills a week 06/19/2023 zoledronic uvtu-almbjwnw-ofeen (zoledronic Acid) 5 mg/100 mL infusion .every [...] % Ointment Twice a day 02/01/2021 02/21/2024 doxycycline (Vibramycin) 100 mg capsule 11/08/2023 02/21/2024 amitriptyline (Elavil) 10 mg tablet Take 10 mg by mouth 2 times daily. 10/16/2023 02/21/2024 cephALEXin (Keflex) 500 mg capsule Take 1 capsule by mouth 4 times daily. 40 capsule 12/08/2023 02/21/2024 fosinopriL (Monopril) 20 mg tabletIndications:Scl eroderma,CKD (chronic kidney disease) stage 3, GFR 30-59 ml/min TAKE 1 TABLET BY MOUTH DAILY 90 tablet 3 09/07/2023 09/02/2024 amLODIPine (Norvasc) 5 mg tablet TAKE 1 TABLET BY MOUTH DAILY 90 tablet 3 09/07/2023 09/02/2024 sildenafiL (Revatio) 20 mg tablet TAKE TWO TABLETS BY MOUTH EVERY MORNING, ONE TABLET BY MOUTH IN THE AFTERNOON AND TWO TABLETS BY MOUTH EVERY EVENING. 150 tablet 5 07/14/2023 04/18/2024 esomeprazole (NexIUM) [address] capsuleIndications:CK D (chronic kidney disease) stage 3, GFR 30-59 ml/min,Scleroderma TAKE ONE CAPSULE BY MOUTH TWICE DAILY 180 capsule 3 07/03/2023 07/16/2024 documented as of this encounter Plan of Treatment Upcoming Encounters Date Type Department Care Team (Late st Contact Info) Description 10/07/2024 11:30 AM EST Office Visit Dermatology at [address] [address] Jo Ordaz MD [facility] [place] [address] 12/13/2024 11:30 AM EST [place] [address] 12/13/2024 1:00 PM EST [place] [address] Kiet Pardo MD [facility] RHEUMATOLOGY [place], [place] [id number] documented as of this encounter Procedures Procedure Name Priority Date/Time Associated Diagnosis Comments XR HAND MIN 3 VIEWS RIGHT Routine 12/08/2023 12:36 PM EST Scleroderma XR FINGER(S) MIN 2 VIEWS LEFT Routine 12/08/2023 12:36 PM EST Scleroderma documented in this encounter Results * XR Hand Min 3 views Right (Generic) (12/08/2023 12:36 PM EST) Anatomical Region Laterality Modality Hand Right Digital Radiogra phy Impressions 12/08/2023 2:26 PM EST 1. ??Calcinosis of 2nd and 3rd finger terminal simeon and acro-osteolysis of distal phalanges are suggesting a connective tissue disorder (such as scleroderma) .due to patient's chronic renal insufficiency, tumoral calcinosis is also a possibility. 2. ??Heterogeneous, and sclerotic appearance of the lunate can be seen in setting of kienbock disease 3. ??No fracture Thank you for letting us participate in the care of this patient. ??If you are a health care provider and have any questions regarding this report, please contact the number below. ??For patients who have questions please contact the health zoo caretaker that requested your imaging first. ? Narrative 12/08/2023 2:26 PM EST EXAMINATION: XR HAND MIN 3 VIEWS RIGHT (GENERIC) CLINICAL HISTORY: right index finger tip calciinosis TECHNIQUE: 3 views RIGHT hand COMPARISON: None FINDINGS: There is mild diffuse soft tissue swelling, of the 2nd and 3rd finger Mild bone resorption, of the terminal tuft, of the thumb, 2nd and 3rd fingers, best appreciated on the lateral projection. ??There is a multiple foci of soft tissue calcifications along the ventral aspect of the terminal tuft of the 2nd distal phalanx, and DIP of the 4th finger terminal tuft. ??Calcification is also seen adjacent to the triquetrum. No bone erosion. ??No acute osseous abnormality. ?? Slight sclerotic and heterogeneous appearance of the lunate Multiple surgical greg in the dorsal subcutaneous tissues. Procedure Note Joaquin Cr MD - 12/08/2023 EXAMINATION: XR HAND MIN 3 VIEWS RIGHT (GENERIC) CLINICAL HISTORY: right index finger tip calciinosis TECHNIQUE: 3 views RIGHT hand COMPARISON: None FINDINGS: There is mild diffuse soft tissue swelling, of the 2nd and 3rd finger Mild bone resorption, of the terminal tuft, of the thumb, 2nd and 3rdfingers, best appreciated on the lateral projection. There is a multiple foci ofsoft tissue calcifications along the ventral aspect of the terminal tuft of the2nd distal phalanx, and DIP of the 4th finger terminal tuft. Calcification isalso seen adjacent to the triquetrum. No bone erosion. No acute osseous abnormality. Slight sclerotic and heterogeneous appearance of the lunate Multiple surgical greg in the dorsal subcutaneous tissues. IMPRESSION 1. Calcinosis of 2nd and 3rd finger terminal simeon and acro-osteolysisof distal phalanges are suggesting a connective tissue disorder (such as scleroderma) .due to patient's chronic renal insufficiency, tumoralcalcinosis is also a possibility. 2. Heterogeneous, and sclerotic appearance of the lunate can be seen insetting of kienbock disease 3. No fracture Thank you for letting us participate in the care of this patient. If youare a health care provider and have any questions regarding this report,please contact the number below. For patients who have questions please contactthe health zoo caretaker that requested your imaging first. Kiet Pardo MD IMG DX ORDERABLES * XR Fingers Min 2 views Left (Generic) (12/08/2023 12:36 PM EST) Anatomical Region Laterality Modality Hand Left Digital Radiogra phy Impressions 12/08/2023 2:57 PM EST 1. ??Soft tissue calcinosis and acro-osteolysis of the distal phalanges are characteristic of connective tissue disorder (scleroderma) 2. 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 ??If you are a health care provider and have any questions regarding this report, please contact the number below. ??For patients who have questions please contact the health zoo caretaker that requested your imaging first. ? Electronically signed by: Joaquin Cr MD, [facility] ([phone]), at 12/08/2023 2:57 PM Narrative 12/08/2023 2:57 PM EST EXAMINATION: XR FINGERS MIN 2 VIEWS LEFT (GENERIC) CLINICAL HISTORY: Left thumb calcinosis with painful swelling TECHNIQUE: 3 views LEFT finger COMPARISON: None FINDINGS: Soft tissue calcinosis along the volar margins of the thumb at the joint, and terminal tuft. ??Diffuse soft tissue swelling of the thumb. Similar soft tissue calcinosis 2nd finger terminal tuft and little finger terminal tuft. ??There is evidence of acro-osteolysis of the distal phalanges of the 1st, 2nd and 5th distal phalange. No acute fracture. ??Multiple surgical clips superimposed at the wrist, and the DRUJ. 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 Diffuse soft tissue swelling of the thumb. Similar soft tissue calcinosis 2nd finger terminal tuft and littlefinger terminal tuft. There is evidence of acro-osteolysis of the distalphalanges of the 1st, 2nd and 5th distal phalange. No acute fracture. Multiple surgical clips superimposed at the wrist, andthe DRUJ. 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 Soft tissue calcinosis and acro-osteolysis of the distal phalangesare characteristic of connective tissue disorder (scleroderma) 2. 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 If youare a health care provider and have any questions regarding this report,please contact the number below. For patients who have questions please contactthe health zoo caretaker that requested your imaging first. Kiet Pardo MD IMG DX ORDERABLES documented in this encounter Visit Diagnoses Diagnosis Scleroderma Systemic sclerosis documented in this encounter Care Teams Grounds Cleaner Relationship Specialty Start Date End Date Ameya Acosta DNP [address] [place] [address] PCP - General Family Medicine 05/01/23 documented as of this encounter
--- OUTSIDE RECORDS SUMMARY | 2024-09-14 13:02 | XMS_ITS | Encounter Summary ---
Author Organization [facility] Address [facility] [place] [address] Care Team Providers Care Canoe Inspector Name Role Phone Ameya Acosta DNP Primary Care Provider [phone] Encounter Details Date Type Department Care Team (Latest Contact Info) Description 08/08/2024 10:11 AM EDT - 08/08/2024 1:00 PM EDT Hospital Encounter [place] [address] Andrew Berger MD [facility] [place] [address] Durbin's esophagus with high grade dysplasia Discharge Disposition: Home Social History Tobacco Use [...] the day after the procedure, use an jkyo-jxn-gnflqzm spray to numb your throat. Sucking on [...] occurs, please contact your Doctor. Please call [phone] before 8pm Mon-Fri with problems, questions or concerns. If you call after 8pm or on weekends, call the Hospital at [phone] and ask to speak to the Carton Making Machine Operator production roustabout and the die operator will contact that person for you. When should you call for help? Call [phone] anytime you think you may need emergency [...] any problems. Where can you learn more? [facility] View your After Visit Summary and more online at [email or web address] If you would like to provide feedback about your hospital experience, please call the Office of Patient and Family Relations at . If you have received this After Visit Summary in error, please immediately return it in person to the department, or notify the [facility] Privacy Office by calling toll free at between the hours of 8AM and 5PM to arrange for our retrieval of the documents at no cost to you. Content Version: 12.2 ?? [phone] [facility]. Care instructions adapted under license by [facility]. If you have questions about a medical condition or this instruction, always ask your healthcare professional. Connect disclaims any warranty or liability for your [...] 5 04/18/2024 fluticasone propionate (Flonase) 50 mcg/actuation [place], Suspension Twice a day 02/20/2023 hydrocortisone 2.5 % Ointment as needed. 04/25/2022 LORazepam (Ativan) 1 mg tablet Two pills a week 06/19/2023 zoledronic tbxb-wsbnadwv-agjtp (zoledronic Acid) 5 mg/100 mL infusion .every [...] tablet 5 fluticasone propionate (Flonase) 50 mcg/actuation [place], Suspension Twice a day hydrocortisone 2.5 % Ointment as needed. LORazepam (Ativan) 1 mg tablet Two pills a week zoledronic rdfp-fhrtvefv-bxksc (zoledronic Acid) 5 mg/100 mL infusion .every [...] Berger MD - 08/08/2024 11:45 AM EDT [facility] Operative Note Patient Name: [place] : [id number] MR#: [id number] Case Date: 08/08/2024 Surgeon: Surgeons and Role: [...] 11:30 AM EST Office Visit Dermatology at [place] [address] [place] [address] Jo Ordaz MD [facility] [place] [address] 12/13/2024 11:30 AM EST Appointment [place] [address] 12/13/2024 1:00 PM EST Office Visit Rheumatology at [facility] [place] [address] Kiet Pardo MD [facility] [place] [address] documented as of this encounter Procedures Procedure Name Priority Date/Time Associated Diagnosis Comments SURGICAL PATHOLOGY Routine 08/08/2024 11 :46 AM EDT Durbin's esophagus with high grade dysplasia Upper Gi Endoscopy, Biopsy (79064) 08/08/2024 11:38 AM EDT Durbin's esophagus with high grade dysplasia Upper GI Endoscopy, Diagnostic ([id number]) 08/08/2024 11:38 AM EDT Durbin's esophagus with high grade dysplasia documented in this encounter Results * Surgical Pathology (08/08/2024 11:46 AM EDT) Case Report Surgical Pathology Report ? Case: [id number] ? Authorizing Provider: ??Andrew Berger MD ? Collected: ? 08/08/2024 1146 ? Ordering Location: ? Gastroenterology at [facility] ?? Received: ?08/08/2024 1448 ? Pathologist: ? Josie Rush MD ? Specimens: ?? A) - Esophagus, z-line bxs r/o dysplasia ? B) - Esophagus, Distal ? 08/19/2024 9:35 AM EDT [facility] Final Diagnosis A. Esophagus, z-line bxs r/o dysplasia Biopsy: Squamocolumnar junctional mucosa (cardia- and funic-type) with mild chronic inflammation. There is no evidence of intestinal metaplasia. B. Esophagus, Distal, Biopsy: Esophageal squamous mucosa within normal limits. 08/19/2024 9:35 AM [facility] Clinical Information A. Esophagus, z-line bxs r/o dysplasia Rule out dysplasia Hx of durbin's with previous ablation B. Esophagus, Distal, Rule out dysplasia 08/19/2024 9:35 AM EDT [facility] Gross Description A. Esophagus, z-line [...] labeled B1. sns 08/19/2024 9:35 AM EDT [facility] Result Note Routine 08/19/2024 9:35 AM T [facility] Tissue ESOPHAGEAL STRUCTURE / Unknown 08/08/2024 11:46 AM EDT 08/08/2024 2:48 PM EDT Comment:Hx of durbin's with previous ablation Tissue specimen (specimen) REGION OF ESOPHAGUS / Unknown 08/08/2024 11:48 AM EDT 08/08/2024 2:48 PM EDT Comment:Pre-op diagnosis: Durbin's ablation f/up Andrew Berger MD PATHOLOGY/[place] [address] documented in this encounter Visit Diagnoses Diagnosis Durbin's esophagus with high grade dysplasia Durbin's esophagus documented in this encounter Active and Recently Administered Medications Care Teams Canoe Inspector Relationship Specialty Start Date End Date Ameya Acosta DNP [address] [place] [address] PCP - General Family Medicine 05/01/23 documented as of this encounter
--- OUTSIDE RECORDS SUMMARY | 2024-09-14 13:02 | XMS_ITS | Encounter Summary ---
Author Organization [facility] [place] [address] Care Team Providers Care Vinyl Hanger Name Role Phone Ameya Acosta DNP Primary Care Provider [phone] Encounter Details Date Type Department Care Team (Latest Contact Info) Description 08/24/2023 Travel Social History Tobacco Use Types Packs/Day [...] 11:30 AM EST Office Visit Dermatology at [address] [address] Jo Ordaz MD [facility] [place] [address] 12/13/2024 11:30 AM EST [place] [address] 12/13/2024 1:00 PM EST Office [place] [address] Kiet Pardo MD [facility] [place] [address] documented as of this encounter Visit Diagnoses Not on filedocumented in this encounter Care Teams Vinyl Hanger Relationship Specialty Start Date End Date Ameya Acosta DNP [address] [place] [address] PCP - General Family Medicine 05/01/23 documented as of this encounter
--- OUTSIDE RECORDS SUMMARY | 2024-09-14 13:02 | XMS_ITS | Encounter Summary ---
Author Organization [facility] [place] [address] Care Team Providers Care Parking Meter Attendant Name Role Phone Ameya Acosta DNP Primary Care Provider [phone] Encounter Details Date Type Department Care Team (Latest Contact Info) Description 05/01/2023 Travel Social History Tobacco Use Types Packs/Day [...] 11:30 AM EST Office Visit Dermatology at [address] [place] [address] Jo Ordaz MD [facility] [place] [address] 12/13/2024 11:30 AM EST Appointment [place] [address] 12/13/2024 1:00 PM EST Office [place] [address] Kiet Pardo MD [facility] [place] [address] documented as of this encounter Visit Diagnoses Not on filedocumented in this encounter Care Teams Parking Meter Attendant Relationship Specialty Start Date End Date Ameya Acosta DNP [address] [place] [address] PCP - General Family Medicine 05/01/23 documented as of this encounter
--- OUTSIDE RECORDS SUMMARY | 2024-09-14 13:02 | XMS_ITS | Encounter Summary ---
Author Organization [facility] [place] [address] Care Team Providers Care Waitstaff Captain Name Role Phone Ameya Acosta DNP Primary Care Provider [phone] Encounter Details Date Type Department Care Team (Latest Contact Info) Description 11/08/2023 Travel Social History Tobacco Use Types Packs/Day [...] 11:30 AM EST Office Visit Dermatology at [address] [place] [address] Jo Ordaz MD [facility] [place] [address] 12/13/2024 11:30 AM EST Appointment [place] [address] 12/13/2024 1:00 PM EST Office [place] [address] Kiet Pardo MD [facility] [place] [address] documented as of this encounter Visit Diagnoses Not on filedocumented in this encounter Care Teams Waitstaff Captain Relationship Specialty Start Date End Date Ameya Acosta DNP [address] [place] [address] PCP - General Family Medicine 05/01/23 documented as of this encounter
--- OUTSIDE RECORDS SUMMARY | 2024-09-14 13:02 | XMS_ITS | Encounter Summary ---
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 If yes, take note of Anesthesia type used. If previous procedure found, and with MAC/propofol Anesthesia support was used, schedule this procedure with Anesthesia and skip the Anesthesia portion of questions. If not performed within [facility] system, not performed at all, or performed with IVCS, ask Anesthesia questions. SCHEDULING QUESTIONS (ask all patient these questions) Have you ever had a/an Upper Endoscopy before? Yes: Date 04/20/23 If yes, did you have any problems with the procedure (such as waking up during the procedure, pain or difficulties afterwards, etc.)? No What type of sedation was used: None (ASK ONLY FOR COLONOSCOPY PROCEDURES) Are you aware, or have you ever been told that you had a poor prep or failed prep with a previous colonoscopy? No If yes, assign the Extended MiraLAX Prep (ASK ONLY FOR COLONOSCOPY PROCEDURES) Do you have an ongoing history of constipation? (E.g., hard stools, >2 days without a bowel movement, straining or difficulty passing stool) No If yes, assign the Extended MiraLAX Prep Do you take any blood thinners or have you been diagnosed with a bleeding disorder that increases your risk of bleeding with procedures? No Do you have a Pacemaker or Defibrillator device? If yes, send pool message to Cardiology with patient information and date or procedure. No Do you have diabetes? If yes, call PCP/managing provider to discuss use of prep and any questions or concerns related to. No If yes, assign the Extended MiraLAX Prep Do you take any iron supplements or vitamins that contain iron? No Do you have a preference regarding the gender of your provider? Yes Dr Berger ANESTHESIA QUESTIONS (YES to any question, please book with Anesthesia support) Have you ever been diagnosed with Pulmonary Hypertension and/or Congential Heart Disease? No Have you been diagnosed with A-Fib (atrial fibrillation) that is NOT being well controled with medications? No Have you ever had an allergic or adverse reaction to Fentanyl or Versed? No Have you had a problem with sedation or anesthesia? (Waking up during procedure, extreme confusion after, etc.) No Do you have a diagnosis of Obstructive Sleep Apnea that requires the use of a c- pap machine? No Do you use an oxygen tank at home? No Do you use a rescue inhaler more than twice per day? (COPD, severe asthma) No Do you experience breathing problems when you lay flat for a period of time? No Do you regularly take prescription opioid pain medications on a daily basis? (Includes oxycodone, Percocet, Suboxone, methadone, etc.) No If yes, assign the Extended MiraLAX Prep SCHEDULING CONFIRMATIONS: Please note any and all parts of your conversation with the patient here. We offer all new patients an opportunity to have an appointment with one of our associate care providers to learn more about your upcoming procedure, ask questions and get answers. These appointmentsare offered via telehealth. Would you be interested in scheduling this appointment? (Only ask if NEW referral patient; skip this question if GI provider ordered the procedure.) No Is there any other information or concerns you would like to us to share with your care team in relation to your upcoming scheduled procedure? Yes: Medtronic implant for bowels; pt will bring her machine You must have a responsible alliance party who will drive you to your procedure, stay on campus for the entire duration of your procedure, and drive you home from your procedure. Who will likely be your electric screw driver operator for the procedure? Please Verify the height and weight, and adjust if height and/or weight have changed Estimated body mass index is 23.1 kg/m?? as calculated from the following: reported by pt 06/03/24: Height as of 06/03/24: 5' 5 Weight as of 06/03/24: 139 lbs Age:64 y.o. documented in this encounter Plan of Treatment Upcoming Encounters Date Type Department Care Team (Late st Contact Info) Description 10/07/2024 11:30 AM EST Office Visit Dermatology at [facility] [address] [place] [address] Jo Ordaz MD [facility] [place] [address] 12/13/2024 11:30 AM EST Appointment [place] [address] 12/13/2024 1:00 PM EST Office [place] [address] Kiet Pardo MD [facility] [place] [address] documented as of this encounter Visit Diagnoses Not on filedocumented in this encounter Care Teams Residence Life Coordinator Relationship Specialty Start Date End Date Ameya Acosta DNP [address] [place] [address] PCP - General Family Medicine 05/01/23 documented as of this encounter
--- OUTSIDE RECORDS SUMMARY | 2024-09-14 13:02 | XMS_ITS | Encounter Summary ---
Author Organization [facility] [place] [address] Care Team Providers Care Furniture Salesperson Name Role Phone Ameya Acosta DNP Primary Care Provider [phone] Encounter Details Date Type Department Care Team (Latest Contact Info) Description 11/15/2023 Travel Social History Tobacco Use Types Packs/Day [...] 11:30 AM EST Office Visit Dermatology at [address] [phone] Jo Ordaz MD [facility] [address] 12/13/2024 11:30 AM EST Appointment [place] [address] 12/13/2024 1:00 PM EST Office [place] [address] Kiet Pardo MD [facility] [place] [address] documented as of this encounter Visit Diagnoses Not on filedocumented in this encounter Care Teams Furniture Salesperson Relationship Specialty Start Date End Date Ameya Acosta DNP [address] [place] [id number] PCP - General Family Medicine 05/01/23 documented as of this encounter
--- OUTSIDE RECORDS SUMMARY | 2024-09-14 13:02 | XMS_ITS | Encounter Summary ---
Author Organization [facility] [place] [address] Care Team Providers Care Hospice Music Therapy Name Role Phone Ameya Acosta [facility] Primary Care Provider Encounter Details Date Type Department Care Team (Latest Contact Info) Description 02/21/2024 10:45 AM EDT Laboratory Appointment Lab [address] [place] [phone] Stage 3a chronic kidney disease; Hyperparathyroidism ; Iron deficiency anemia, unspecified iron deficiency anemia type; Fatigue, unspecified type Social History Tobacco Use Types Packs/Day Years [...] 11:30 AM EST Office Visit Dermatology at [facility] [address] [place] [address] Jo Ordaz MD [facility] [address] 12/13/2024 11:30 AM EST Appointment Pulmonology at [place] [phone] 12/13/2024 1:00 PM EST Office [place] [phone] Kiet Pardo MD [facility] [place] [address] documented as of this encounter Procedures Procedure Name Priority Date/Time Associated Diagnosis Comments PROTEIN/CREATININE RATIO, URINE Routine 02/21/2024 10:45 AM EDT Stage 3a chronic kidney disease Hyperparathyroidism Iron deficiency anemia, unspecified iron deficiency anemia type Fatigue, unspecified type U ALBUMIN/CRE RATIO Routine 02/21/2024 1 0:45 AM EDT Stage 3a chronic kidney disease Hyperparathyroidism Iron deficiency anemia, unspecified iron deficiency anemia type Fatigue, unspecified type PTH Routine 02/21/2024 10:35 AM EDT Stage 3a chronic kidney disease Hyperparathyroidism Iron deficiency anemia, unspecified iron deficiency anemia type Fatigue, unspecified type HEMOGRAM Routine 02/21/2024 10:35 AM EDT Stage 3a chronic kidney disease Hyperparathyroidism Iron deficiency anemia, unspecified iron deficiency anemia type Fatigue, unspecified type DIFFERENTIAL, AUTOMATED Routine 02/21/2024 10:35 AM EDT Stage 3a chronic kidney disease Hyperparathyroidism Iron deficiency anemia, unspecified iron deficiency anemia type Fatigue, unspecified type VITAMIN D, 25-HYDROXY Routine 02/21/2024 10:35 AM EDT Stage 3a chronic kidney disease Hyperparathyroidism Iron deficiency anemia, unspecified iron deficiency anemia type Fatigue, unspecified type CBC (WITH DIFF) Routine 02/21/2024 10:35 AM EDT Stage 3a chronic kidney disease Hyperparathyroidism Iron deficiency anemia, unspecified iron deficiency anemia type Fatigue, unspecified type ALBUMIN LEVEL Routine 02/21/2024 10:35 AM EDT Stage 3a chronic kidney disease Hyperparathyroidism Iron deficiency anemia, unspecified iron deficiency anemia type Fatigue, unspecified type BASIC METABOLIC PANEL Routine 02/21/2024 10:35 AM EDT Stage 3a chronic kidney disease Hyperparathyroidism Iron deficiency anemia, unspecified iron deficiency anemia type Fatigue, unspecified type documented in this encounter Results * (ABNORMAL) U Albumin/Cre Ratio (02/21/2024 10:45 AM EDT) Albumin / Creatinin Ratio, Urine 495(H) 0 - 29 mcg/mg Cr [facility] Comment: Reference Ranges: <30 mcg/mg: Normal 30-300 mcg/mg: Moderately increased albuminuria.* >300 mcg/mg: Severely increased albuminuria. * ACEI or ARB recommended if diabetic; suggested if BP>130/80 without diabetes ACEI or ARB strongly recommended if diabetic; recommended if BP>130/80 without diabetes Two of three specimens collected within a 3 to 6 month period should be abnormal before considering a patient to have albuminuria. Transient causes: exercise, fever, infection, CHF, marked hyperglycemia or hypertension. Persistent albuminuria indicates CKD and is an independent risk factor for ASCVD. ADA Standards of Medical Care in Diabetes-2016; KDIGO: Kidney International Supplements (2012) 2, 357? 362 Albumin, Urine 203.0 mg/L [facility] Creatinine, Urine 41 mg/dL [facility] Urine 02/21/2024 10:4 5 AM EDT 02/21/2024 10:53 AM EDT Narrative Resulting Agency Comment Spec In Lab Nguyễn Underwood MD URINE ORDERABLES [facility] [place] [address] * (ABNORMAL) Protein/Creatinine Ratio, urine (02/21/2024 10:45 AM EDT) Creatinine, Urine 41 mg/dL [facility] Protein, Urine 30(H) 0 - 12 mg/dL [facility] Protein / Creatinine Ratio, Urine 0.7 ratio [facility] Urine 02/21/2024 10:4 5 AM EDT 02/21/2024 10:53 AM EDT Narrative Resulting Agency Comment Spec In Lab Nguyễn Underwood MD URINE ORDERABLES [facility] [place] [address] * Differential, Automated (02/21/2024 10:35 AM EDT) Neutrophil % 69.8 % [facility] Neutrophil Absolute 5.03 1.70 - 6.10 x10(3)/[facility] Lymph % 22.3 % [facility] Lymphocytes Abs 1.6 0.9 - 3.2 x10(3)/[facility] Monocyte % 5.8 % [facility] Monocyte Abs 0.4 0.3 - 0.9 x10(3)/[facility] Eos % 1.2 % [facility] Eosinophils Abs 0.1 0.0 - 0.4 x10(3)/[facility] Basophil % 0.6 % [facility] Baso Absolute 0.0 0.0 - 0.1 x10(3)/[facility] Immature Gran % 0.30 % [facility] Comment: Immature granulocytes(IG's)percentage and absolute count will include metamyelocytes, myelocytes, and promyelocytes. Blood smears from CBCs yielding IG's will be scanned manually for concordance. If this scan disagrees with the automated IG or if promyelocytes are noted, a manual differential will be performed. Immature Gran Absolute 0.02 0.00 - 0.04 x10(3)/[facility] Blood 02/21/2024 10:3 5 AM EDT 02/21/2024 10:39 AM EDT Narrative Resulting Agency Comment Spec In Lab Nguyễn Underwood MD HEMATOLOGY ORDERABLE S [facility] [place] [address] * (ABNORMAL) Hemogram (02/21/2024 10:35 AM EDT) White Blood Cell 7.2 4.0 - 9.5 x10(3)/mc L [facility] Red Blood Cell 4.32 4.00 - 5.21 x10(6)/mc L [facility] Hemoglobin 14.0 11.7 - 15.5 g/dL [facility] Hematocrit 41.5 35.7 - 45.8 % [facility] Mean Cell Volume 96.1(H) 82.6 - 94.4 fL [facility] Mean Cell Hemoglobin 32.4(H) 27.1 - 32.0 pg [facility] Mean Cell Hemoglobin Concentration 33.7 31.7 - 35.0 g/dL [facility] Platelet 314 145 - 357 x10(3)/mc L [facility] RDW Standard Deviation 47.9(H) 37.0 - 46.0 fL [facility] RDW coefficient of variation 13.4 11.5 - 14.1 % [facility] Mean Platelet Volume 10.2 7.6 - 12.9 fL [facility] NRBC% auto 0.0 % [facility] NRBC Absolute 0.000 0.000 - 0.000 x10(3)/mc L [facility] Blood 02/21/2024 10:3 5 AM EDT 02/21/2024 10:39 AM EDT Narrative Resulting Agency Comment Spec In Lab Nguyễn Underwood MD HEMATOLOGY ORDERABLE S [facility] [place] [address] * (ABNORMAL) Basic Metabolic Panel (non-fasting) (02/21/2024 10:35 AM EDT) Glucose 102 65 - 199 mg/dL [facility] Comment:Diabetes: >=200 mg/d L plus symptoms Blood Urea Nitrogen 25(H) 8 - 18 mg/dL [facility] Creatinine 1.07 0.70 - 1.20 mg/dL [facility] Sodium 141 135 - 145 mmol/L [facility] Potassium 4.9 3.5 - 5.0 mmol/L [facility] Comment: Please note: ??Patients with WBC >100,000 may have falsely elevated Potassium levels. ??For accurate Potassium quantification in these patients send serum separator tube (gold top) for subsequent determinations. ??Contact the Clinical Chemistry Laboratory if there are any questions. Chloride 107 98 - 107 mmol/L [facility] Carbon Dioxide 23 22 - 31 mmol/L [facility] Anion Gap 11 5 - 15 mmol/L [facility] Calcium 9.5 8.5 - 10.5 mg/dL [facility] Est Glomerular Filtration Rate 59(L) >=60 mL/min/1. 73 m?? [facility] Comment: This patient's estimated GFR was calculated using the 2020 CKD-EPI equation. The estimated GFR can vary from the measured GFR by up to 30% in the absence of rapidly changing kidney function. Assessment of the estimated GFR is not appropriate when creatinine concentrations are rapidly changing. For clinical situations in which a more precise estimate of GFR is necessary, consider alternative methods of GFR estimation such as a 24-hour urine creatinine clearance. Assignment of CKD stage 1-5 for patients with an eGFR near the transition point between stages may be based on clinical assessment of muscle mass and symptoms in addition to eGFR. Blood 02/21/2024 10:3 5 AM EDT 02/21/2024 10:39 AM EDT Narrative Resulting Agency Comment Spec In Lab Nguyễn Underwood MD CHEMISTRY ORDERABLES [facility] [place] [address] * Albumin Level (02/21/2024 10:35 AM EDT) Albumin 4.6 3.2 - 5.2 g/dL [facility] Blood 02/21/2024 10:3 5 AM EDT 02/21/2024 10:39 AM EDT Narrative Resulting Agency Comment Spec In Lab Nguyễn Underwood MD CHEMISTRY ORDERABLES [facility] [place] [address] * (ABNORMAL) PTH (02/21/2024 10:35 AM EDT) Parathyroid Hormone 124(H) 15 - 65 pg/mL [facility] Blood 02/21/2024 10:3 5 AM EDT 02/21/2024 10:39 AM EDT Narrative Resulting Agency Comment Spec In Lab Nguyễn Underwood MD CHEMISTRY ORDERABLES [facility] [place] [address] * Vitamin D, 25-Hydroxy (02/21/2024 10:35 AM EDT) Vitamin D Total 25 OH 43 21 - 100 ng/mL [facility] Vit D Interp Sufficient [facility] Blood 02/21/2024 10:3 5 AM EDT 02/21/2024 10:39 AM EDT Narrative Resulting Agency Comment Spec In Lab Nguyễn Underwood MD CHEMISTRY ORDERABLES [facility] [place] [address] documented in this encounter Visit Diagnoses Diagnosis Stage 3a chronic kidney disease Hyperparathyroidism Hyperparathyroidism, unspecified Iron deficiency anemia, unspecified iron deficiency anemia type Fatigue, unspecified type documented in this encounter Care Teams Hospice Music Therapy Relationship Specialty Start Date End Date Ameya Acosta DNP [address] [place] [address] PCP - General Family Medicine 05/01/23 documented as of this encounter
--- OUTSIDE RECORDS SUMMARY | 2024-09-14 13:02 | XMS_ITS | Encounter Summary ---
Author Organization [facility] Address [facility] [place] [address] Care Team Providers Care Oracle Obiee Developer Name Role Phone Ameya Acosat [facility] Primary Care Provider [phone] Encounter Details Date Type Department Care Team (Latest Contact Info) Description 02/21/2024 11:00 AM EDT Office Visit Nephrology [place] [address] Nguynễ Underwood MD [facility] [place] [address] Stage 3a chronic kidney disease; Hyperparathyroidism; Iron deficiency anemia, unspecified iron deficiency anemia [...] Sign Reading Time Taken Comments Blood Pressure 134/80 02/21/2024 10:55 AM EDT Pulse 71 02/21/2024 10:55 AM EDT Temperature - - Respiratory Rate - - Oxygen Saturation 99% 02/21/2024 10: 55 AM EDT Inhaled Oxygen Concentration - - Weight 65.7 kg (144 lb 12.8 oz) 024 10:55 AM EDT Height 167.6 cm (5' 5.98) 02/21/2024 1 0:55 AM EDT Body Mass Index 23.38 02/21/2024 10:55 AM EDT documented in this encounter Patient Instructions * Patient Instructions* Nguyễn Underwood MD - 02/21/2024 11:00 AM EDT Check blood pressure ( BP) every day in the morning around the same time before breakfast before taking any BP medications. Empty your bladder before your reading. Sit in a comfortable chair with your back supported for at least 5 minutes before your reading. Put both feet flat on the ground and keep your legs uncrossed. Rest your arm with the cuff on a table at chest height. Make sure the blood pressure cuff is snug but not too tight. The cuff should be against your bare skin, not over clothing. Do not talk while your blood pressure is being measured. Keep a log of your blood pressure medication and bring it with you next visit. documented in this encounter Progress Notes * Nguyễn Underwood MD - 02/21/2024 11:00 AM EDT Images from the original note were not included. HYPERTENSION/ NEPHROLOGY PROGRESS NOTE PATIENT: Amber Wells : 1960 REASON FOR CONSULTATION: renal insufficiency. ID- 62-year-old very pleasant lady with prior history of scleroderma renal crisis, has crest syndrome, YOUNG requiring dialysis in the past coming here for follow-up. She has calcinosis, Raynaud's, esophageal dysmotility and Joseph's esophagus, and sclerodactyly. Interval history: Overall feeling all right she feels that she has been gaining some weight and her blood pressure has been running slightly high related to that. Otherwise she offers no overt complaints. Follows up with rheumatology for her scleroderma. And she has calcinosis. She is on as needed furosemide with potassium chloride on the day she is taking furosemide 10 mg whenever she feels volume overloaded. Takes sildenafil and amlodipine for her Raynaud's on fosinopril for her hypertension (has history of scleroderma renal crisis) Vitals: 02/21/24 1055 BP: 134/80 BP Location ([facility]): Left arm Patient Position: Sitting BP Cuff Sizes: Adult (25-34 cm) Pulse: 71 SpO2: 99% Weight: 65.7 kg (144 lb 12.8 oz) Height: 167.6 cm (5' 5.98) Chest clear. HS normal. Trace edema. Last wbc, hgb, hct plt Recent Labs 02/21/24 1035 WBC 7.2 HGB 14.0 HCT 41.5 Last 3 wbc, hgb, hct plt Recent Labs 02/21/24 1035 09/11/23 0000 WBC 7.2 8.1 HGB 14.0 14.4 HCT 41.5 42.8 PLATELET 314 308 Last 3 Lytes Recent Labs 02/21/24 1035 09/11/23 0000 NA 141 138 K 4.9 4.1 CL 107 103 CO2 23 26 BUN 25* 25 CREATININE 1.07 1.10 Last 3 LFTs No results for input(s): AST, ALT, ALKPHOS, BILITOT, BILIDIR in the last 7068hours. Last Ca, Mg, Phos Recent Labs 02/21/24 1035 CALCIUM 9.5 Assessment and plan: 62-year-old very pleasant lady with prior history of scleroderma renal crisis, has crest syndrome, YOUNG requiring dialysis in the past coming here for follow-up. She has calcinosis, Raynaud's, esophageal dysmotility and Joseph's esophagus, and sclerodactyly. CKD 3B- In the setting of prior history of scleroderma renal crisis and YOUNG. On lisinopril, amlodipine takes bosentan for Raynaud's. Creatinine remaining stable. She has bloating sensation with high salt diet. Will give 10 mg Lasix with 10 meq potassium to alleviate her symptoms. Advised her not to take it more than 10 per week. Hyperparathyroidism- -? Primary, versus H her calcium level is generous with normal vitamin D levels. 24-hour urine calcium not significantly elevated. Hypertension- -Blood pressure reasonably controlled currently on amlodipine, was not done, fosinopril. -She is on as needed 10 mg of Lasix with 10 mEq of potassium for feeling of bloating/fluid overload. -She does not endorse any features of obstructive sleep apnea and does not want to get tested. A total of 30 minutes was spent for reviewing chart, [id number] encounter, ordering labs/medication, documentation in the chart, and coordinating care. RTC - 1 yr. documented in this encounter Plan of Treatment Upcoming Encounters Date Type Department Care Team (Late st Contact Info) Description 10/07/2024 11:30 AM EST Office Visit Dermatology at [place] [address] [place] [address] Jo Ordaz MD [facility] [place] [address] 12/13/2024 11:30 AM EST Appointment [place] [address] 12/13/2024 1:00 PM EST Office [place] [address] Kiet Pardo MD [facility] [place] [address] Scheduled Orders Name Type Priority Associated Diagnoses Orde r Schedule Basic Metabolic Panel (non-fasting) Lab Routine Stage 3a chronic kidney disease Hyperparathyroidism Fatigue, unspecified type Expected: 02/22/2025 (Approximate), Expires: 08/24/2025 Albumin Level Lab Routine Stage 3a chronic kidney disease Hyperparathyroidism Fatigue, unspecified type Expected: 02/22/2025 (Approximate), Expires: 08/24/2025 Vitamin D, 25-Hydroxy Lab Routine Stage 3a chronic kidney disease Hyperparathyroidism Fatigue, unspecified type Expected: 02/22/2025 (Approximate), Expires: 08/24/2025 U Albumin/Cre Ratio Lab Routine Stage 3a chronic kidney disease Hyperparathyroidism Fatigue, unspecified type Expected: 02/22/2025 (Approximate), Expires: 08/24/2025 PTH Lab Routine Stage 3a chronic kidney disease Hyperparathyroidism Fatigue, unspecified type Expected: 02/22/2025 (Approximate), Expires: 08/24/2025 documented as of this encounter Results * (ABNORMAL) Protein/Creatinine Ratio, urine (02/21/2024 10:45 AM EDT) Creatinine, Urine 41 mg/dL [facility] Protein, Urine 30(H) 0 - 12 mg/dL [facility] Protein / Creatinine Ratio, Urine 0.7 ratio [facility] Urine 02/21/2024 10:4 5 AM EDT 02/21/2024 10:53 AM EDT Narrative Resulting Agency Comment Spec In Lab Nguyễn Underwood MD URINE ORDERABLES Performing Organization Address City/State/[facility] Co de Phone Number [facility] [place] [address] * (ABNORMAL) U Albumin/Cre Ratio (02/21/2024 10:45 [...] [facility] Creatinine, Urine 41 mg/dL [facility] Urine 02/21/2024 10:4 5 AM EDT 02/21/2024 10:53 AM EDT Narrative Resulting Agency Comment Spec In Lab Nguyễn Underwood MD URINE ORDERABLES Performing Organization Address City/[facility] Co de Phone Number [facility] [address] * Vitamin D, 25-Hydroxy (02/21/2024 10:35 AM EDT) Vitamin D Total 25 OH 43 21 - 100 ng/mL [facility] Vit D Interp Sufficient [facility] Blood 02/21/2024 10:3 5 AM EDT 02/21/2024 10:39 AM EDT Narrative Resulting Agency Comment Spec In Lab Nguyễn Underwood MD CHEMISTRY ORDERABLES Performing Organization Address [facility] de [place] [address] * (ABNORMAL) PTH (02/21/2024 10:35 AM EDT) Parathyroid Hormone 124(H) 15 - 65 pg/mL [facility] Blood 02/21/2024 10:3 5 AM EDT 02/21/2024 10:39 AM EDT Narrative Resulting Agency Comment Spec In Lab Nguyễn Underwood MD CHEMISTRY ORDERABLES Performing Organization Address [facility] Co de Phone Number [facility] [address] * Albumin Level (02/21/2024 10:35 AM EDT) Albumin 4.6 3.2 - 5.2 g/dL [facility] Blood 02/21/2024 10:3 5 AM EDT 02/21/2024 10:39 AM EDT Narrative Resulting Agency Comment Spec In Lab Nguyễn Underwood MD CHEMISTRY ORDERABLES Performing Organization Address City/[facility] Co de Phone Number [facility] [address] * (ABNORMAL) Basic Metabolic Panel (non-fasting) (02/21/2024 [...] MD CHEMISTRY ORDERABLES [facility] [address] documented in this encounter Visit Diagnoses Diagnosis Stage 3a chronic kidney disease Hyperparathyroidism Hyperparathyroidism, unspecified Iron deficiency anemia, unspecified iron deficiency anemia type Fatigue, unspecified type documented in this encounter Care Teams Oracle Obiee Developer Relationship Specialty Start Date End Date Ameya Acosta DNP [address] [place] [address] [place] [address] PCP - General Family Medicine 05/01/23 documented as of this encounter
--- OUTSIDE RECORDS SUMMARY | 2024-09-14 13:02 | XMS_ITS | Encounter Summary ---
Author Organization [facility] Address [facility] [place] [address] Care Team Providers Care Textile Bag Sewer Name Role Phone Ameya Acosta [facility] Primary Care Provider [phone] Encounter Details Date Type Department Care Team (Late st Contact Info) Description 06/07/2024 11:00 AM EDT [place] [address] Kiet Parod MD [facility] [place] [address] Scleroderma Social History Tobacco Use Types Packs/Day [...] Sign Reading Time Taken Comments Blood Pressure 109/65 06/07/2024 10:45 AM EDT Pulse 66 06/07/2024 10:45 AM EDT Temperature 36.7 ??C (98.1 ??F) 06/07/2024 10:45 AM E DT Respiratory Rate - - Oxygen Saturation 100% 06/07/2024 10:45 AM EDT Inhaled Oxygen Concentration - - Weight 64.9 kg (143 lb) 06/07/2024 10:45 AM EDT Height 167.6 cm (5' 5.98) 06/07/2024 10:45 AM E DT Body Mass Index 23.09 06/07/2024 10:45 AM EDT documented in this encounter Progress Notes * Kiet Pardo MD - 06/07/2024 11:00 AM EDT This is a return rheumatology visit for Ms. Cuevas with longstanding diffuse scleroderma complicated in the past by renal crisis with subsequent stage III CKD and also calcinosis with severe Raynaud's and digital ulcers.. Since her last encounter, Ms. Wells reports that she had a sacral nerve stimulation device inserted in March which took several months to healing and required reduced activity--as a result she gainedabout 15 lbs. She is still working on programming the device to optimize its use. She also had an episode of dizziness/whooziness and was found to be hypertensive. Subsequent blood pressures at home have been normal. She has had no digital tip ulcers but calcium deposits at several finger tips are tender to direct touch. Medications were reviewed: Current Outpatient Medications on File Prior to Visit Medication Sig Dispense Refill sildenafiL (Revatio) 20 mg tablet TAKE TWO TABLETS BY MOUTH EVERY MORNING, ONE TABLET BY MOUTH IN THE AFTERNOON AND TWO TABLETS BY MOUTH EVERY EVENING. 150 tablet 5 fluticasone propionate (Flonase) 50 mcg/actuation [place], Suspension Twice a day hydrocortisone 2.5 % Ointment as needed. LORazepam (Ativan) 1 mg tablet Twice a day zoledronic pobj-pjqlgcxy-kehom (zoledronic Acid) 5 mg/100 mL infusion .every year mupirocin (Bactroban) 2 % Ointment Apply topically 3 times daily for 10-14 days 22 g 0 fosinopriL (Monopril) 20 mg tablet TAKE 1 TABLET BY MOUTH DAILY 90 tablet 3 amLODIPine (Norvasc) 5 mg tablet TAKE 1 TABLET BY MOUTH DAILY 90 tablet 3 esomeprazole (NexIUM) [address] capsule TAKE ONE CAPSULE BY MOUTH TWICE DAILY 180 capsule 3 furosemide (Lasix) 20 mg tablet Take 0.5 tablets by mouth daily. (Patient not taking: Reported on 02/21/2024) 30 tablet 3 potassium chloride ER (Klor-Con M) 10 mEq ER micro-encapsulated crystal tablet Take 1 tablet by mouth daily. 30 tablet 3 acetaminophen-codeine (Tylenol-Codeine #3) 300-30 [...] Powder Take 17 g by mouth daily. psyllium husk (METAMUCIL ORAL) Take by mouth daily. fish oil-omega-3 fatty acids 1,000 mg Capsule Take 1,000 mg by mouth daily. calcium citrate (Calcitrate) 200 mg (950 mg) Tablet Take 1,200 mg by mouth daily. glycerin, adult, Suppository [...] inches onto the skin every 6 hours. No current facility-administered medications on file prior to visit. Physical examination: BP 109/65 Pulse 66 Temp 36.7 ??C (98.1 ??F) (Temporal) Ht 167.6 cm (5' 5.98) Wt 64.9 kg (143 lb) LMP 11/27/2014 SpO2 100% BMI 23.09 kg/m?? The skin examination showed an area of STS with visible calcinosis at the tip of the left thumb. The abdomen also showed multiple small pea sized lesions consistent with calcinosis. The chest was clear and the cardiac examination showed no increase in P2. There was no peripheral edema. Impression:Longstanding diffuse scleroderma, complicated in the past by scleroderma renal crisis calcinosis, osteoporosis and Joseph's esophagus and anorectal incontinence with severe Raynaud's phenomenon and recurrent digital ulcers. At this time, I made no changes to Amber's regimen. She will attempt to increase her activity level as tolerated. We will plan routine PFTs and follow-up in 6 months. Established visit: 40 minutes total time. * Francine Hidalgo CMA - 06/07/2024 11:00 AM EDT documented in this encounter Plan of Treatment Upcoming Encounters Date Type Department Care Team (Late st Contact Info) Description 10/07/2024 11:30 AM EST Office Visit Dermatology at [address] [address] Jo Ordaz MD [facility] [address] 12/13/2024 11:30 AM EST [place] [address] 12/13/2024 1:00 PM EST [place] [address] Kiet Pardo MD [facility] [place] [address] Scheduled Orders Name Type Priority Associated Diagnoses Orde r Schedule Common Pulmonary Function Test PFT Routine Scleroderma Expected: 06/07/2024, Expires: 12/07/2024 documented as of this encounter Visit Diagnoses Diagnosis Scleroderma Systemic sclerosis documented in this encounter Care Teams Textile Bag Sewer Relationship Specialty Start Date End Date Ameya Acosta DNP [address] [place] [address] [place] [address] PCP - General Family Medicine 05/01/23 documented as of this encounter
--- OUTSIDE RECORDS SUMMARY | 2024-09-14 13:02 | XMS_ITS | Encounter Summary ---
Author Organization [facility] [place] [address] Care Team Providers Care Receiving And Processing Supervisor Name Role Phone Ameya Acosta DNP Primary Care Provider Encounter Details Date Type Department Care Team (Latest Contact Info) Description 02/14/2024 Travel Social History Tobacco Use Types Packs/Day [...] 11:30 AM EST Office Visit Dermatology at [address] [address] Jo Ordaz MD [facility] [place] [address] 12/13/2024 11:30 AM EST [place]ment [place] [address] 12/13/2024 1:00 PM EST Office [place] [address] Kiet Pardo MD [facility] [place] [address] documented as of this encounter Visit Diagnoses Not on filedocumented in this encounter Care Teams Receiving And Processing Supervisor Relationship Specialty Start Date End Date Ameya Acosta DNP [address] [place] [id number] PCP - General Family Medicine 05/01/23 documented as of this encounter
--- OUTSIDE RECORDS SUMMARY | 2024-09-14 13:02 | XMS_ITS | Encounter Summary ---
Author Organization [facility] [place] [address] Care Team Providers Care Chili Pepper Grinder Name Role Phone Ameya Acosta DNP Primary Care Provider [phone] Encounter Details Date Type Department Care Team (Latest Contact Info) Description 05/31/2024 Travel Social History Tobacco Use Types Packs/Day [...] AM EST Office Visit Dermatology at [address] [place] [address] Jo Ordaz MD [facility] [place] [address] 12/13/2024 11:30 AM EST Appointment [place] [address] 12/13/2024 1:00 PM EST Office [place] [address] Kiet Pardo MD [facility] [place] [address] documented as of this encounter Visit Diagnoses Not on filedocumented in this encounter Care Teams Chili Pepper Grinder Relationship Specialty Start Date End Date Ameya Acosta DNP [address] [place] [id number] PCP - General Family Medicine 05/01/23 documented as of this encounter
--- OUTSIDE RECORDS SUMMARY | 2024-09-14 13:02 | XMS_ITS | Encounter Summary ---
[place] [address] Care Team Providers Care Line Maintenance Technician Name Role Phone Ameya Acosta [facility] Primary Care Provider [phone] Encounter Details Date Type Department Care Team (Late st Contact Info) Description 08/08/2024 11:33 AM EDT Anesthesia Event [place] [address] Kiet Mock MD [address] [place] [address] [place] [address] Anesthesia Record Procedure Summary Procedure Name Responsible Anesthesiologist Anesthesia Start Time Anesthesia Stop Time EGD, UPPER GI ENDOSCOPY (WRVU 2.09) (Trunk) Kiet Mock MD 08/08/24 1133 08/08/24 1202 Events Date Time Event Comment 08/08/2024 1039 1133 Start 1137 AN Verify 1137 An Start Data 1141 An Induction 1144 Anesthesia Ready 1145 Procedure Start 1157 an stop data 1202 Recovery or ICU Handoff Lorri ent care was transferred to the destination unit staff after review of the patient's medical history, current anesthetic/surgical status and plan, according to the Provider Handoff Checklist. 1202 Stop Meds Name Total lidocaine IV 140 mg propofoL 100 mg propofol INF 143.33 mg dexmedeTOMIDine 4 mcg/mL 20 mcg lactated ringers 450 mL * Agents Name O2 Air N2O O2 Auxiliary Flowmeter 1 * Blood No blood administrations on file. Lines, Drains, and Airways No LDAs on file. documented in this encounter Social History Tobacco Use Types Packs/Day Years [...] PM EDT documented as of this encounter OR Notes * Anesthesia Postprocedure Evaluation - Kiet Mock MD - 08/08/2024 12:54 PM EDT Department of Anesthesiology Post-procedure Note Patient: Amber Wells Procedure Summary Date: 08/08/24 Room / Location: [facility] ENDO 2 / [facility] ENDOSCOPY Anesthesia Start: 1133 Anesthesia Stop: 1202 Procedures: EGD, UPPER GI ENDOSCOPY (WRVU 2.09) (Trunk) EGD WITH BIOPSY (WRVU 2.39) (Trunk) Diagnosis: Joseph's esophagus with high grade dysplasia (Joseph's ablation f/up) Surgeons: Andrew Berger MD Responsible Provider: Kiet Mock MD Anesthesia Type: MAC ASA Status: 2 All Anesthesia Providers: Anesthesiologist: Kiet Mock MD ASSOCIATE TECHNICIAN: Bia Middleton CRNA Vitals Value Taken Time BP 119/87 08/08/24 1220 Temp Pulse Resp SpO2 96 % 08/08/24 1224 Pain Level Vitals shown include unfiled device data. Patient Location: PACU/[facility] Level of Consciousness: Awake and Alert Pain Management: Satisfactory Analgesia PONV: None Cardiovascular Status: At Baseline and Hemodynamically Stable Respiratory Status: At Baseline and Room Air Postoperative Fluid Status: Intravascular EUvolemia Possible Anesthetic Complications: NONE apparent at time of evaluation Final Primary Anesthesia Type: MAC (The anesthetic type performed was the same as planned.) Comments: Kiet Mock MD * Anesthesia Preprocedure Evaluation - Kiet Mock MD - 08/08/2024 8:14 AM EDT Pre-Anesthesia Evaluation for: Amber Wells a 64 y.o. female. 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 AK (actinic keratosis) 05/25/2013 Solar lentigo 05/25/2013 Multiple nevi 05/25/2013 Anemia of chronic renal failure, stage 4 (severe) GERD (gastroesophageal reflux disease) CKD (chronic kidney disease) stage 4, GFR 15-29 ml/min 04/20/2010 Scleroderma 11/20/1990 Past Medical History: Diagnosis Date Anemia associated with chronic renal failure Anemia in CKD (chronic kidney disease) Anemia of chronic renal failure, stage 4 (severe) Anxiety 02/21/2024 Arthritis Basal cell carcinoma of anterior chest 02/21/2024 Bowel disease Chronique constipation, Joseph syndrome eosophagus Chronic kidney disease 2009 Dialysis AprilJun 2010, producing hemoglobin since Oct. 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 s/p re-excision of desmoid firbormatosis of the back Gastroesophageal reflux I take 2 Nexium 40mg a day Genetic syndrome Scleroderma, Raynaud's High blood pressure It only happened once when my kidneys shut down in 2009 Hypertension Intraoperative complication It was at the end, not sure if it was general anestisic (colo) Irregular heart beat Not the past year, it was few years ago Kidney failure Failure 2009, dialysis for 2 months in 2009 skilled nursing current use of opiate analgesic Codeine -tylenols twice a year when ulcers on fingers Motion sickness I cannot go to any rides at [employer] anymore Neuromuscular disorder Other disorder of muscle, ligament, and fascia 12/09/2014 Post-operative nausea and vomiting But it was more because of the pain medicine Raynaud phenomenon 04/08/2016 Raynaud's syndrome 1990 Cardona syndrome 02/21/2024 Scleroderma 1990 Diffuse scleroderma. Past Surgical History: Procedure Laterality Date CREATED BY INTERFACE Entered not Verified Procedure Date: 01/27/2011 CREATED BY INTERFACE No History of Operative Procedures Procedure Date: 01/27/2011 DILATION AND CURETTAGE OF UTERUS PRO APPLY FOREARM SPLINT, STATIC Left 04/08/2016 SPLINT APPLICATION, SHORT ARM performed by Andre Marroquin MD at [facility] MAIN OR PRO COLONOSCOPY, DIAGNOSTIC N/A 01/31/2019 COLONOSCOPY, DIAGNOSTIC performed by Andrew Berger MD at [facility] ENDOSCOPY PRO EDG FLEXIBLE TRANSORAL ABLATE TUMOR POLYP/LESION W/DILATION & WIRE N/A 10/12/2021 EGD, TRANSORAL; WITH ABLATION OF TUMOR(S), POLYP(S), OR OTHER LESION(S) (WRVU 4.26) performed by Andrew Berger MD at [facility] ENDOSCOPY PRO EDG FLEXIBLE TRANSORAL ABLATE TUMOR POLYP/LESION W/DILATION & WIRE N/A 01/12/2022 EGD, TRANSORAL; WITH ABLATION OF TUMOR(S), POLYP(S), OR OTHER LESION(S) (WRVU 4.26) performed by Andrew Berger MD at [facility] ENDOSCOPY PRO ENDOSCOPIC US EXAM, ESOPH N/A 03/29/2016 UPPER EUS- ENDOSCOPIC ULTRASOUND performed by Darryl Ash MD at [facility] ENDOSCOPY PRO RAD RESECT/TUMOR, SOFT TISSUE BACK/FLANK, 5CM OR GREATER Right 06/22/2020 RADICAL RESECTION TUMOR BACK OR FLANK; 5 CM OR GREATER (WRVU 22.55) performed by Solomon Quiros MD at [facility] OSC PRO REBL VES VEIN GRFT, UP EXTREM Left 04/08/2016 REPAIR BLOOD VESSEL WITH VEIN GRAFT, UPPER EXTREMITY performed by Andre Marroquin MD at [facility] MAIN OR PRO UPPER GI ENDOSCOPY, BIOPSY N/A 03/29/2016 UPPER GASTROINTESTINAL ENDOSCOPY,WITH BIOPSY SINGLE OR MULTIPLE performed by Darryl Ash MD at [facility] ENDOSCOPY PRO UPPER GI ENDOSCOPY, BIOPSY N/A 01/10/2018 EGD WITH BIOPSY (WRVU 2.49) performed by Andrew Berger MD at [facility] ENDOSCOPY PRO UPPER GI ENDOSCOPY, BIOPSY N/A 08/23/2021 EGD WITH BIOPSY (WRVU 2.49) performed by Andrew Berger MD at [facility] ENDOSCOPY PRO UPPER GI ENDOSCOPY, BIOPSY N/A 04/06/2022 EGD WITH BIOPSY (WRVU 2.49) performed by Andrew Berger MD at [facility] ENDOSCOPY PRO UPPER GI ENDOSCOPY, BIOPSY N/A 10/18/2022 EGD WITH BIOPSY (WRVU 2.49) performed by Andrew Berger MD at [facility] ENDOSCOPY PRO UPPER GI ENDOSCOPY, BIOPSY N/A 04/20/2023 EGD WITH BIOPSY (WRVU 2.39) performed by Andrew Berger MD at [facility] ENDOSCOPY PRO UPPER GI ENDOSCOPY, DIAGNOSTIC N/A 08/23/2021 EGD, UPPER GI ENDOSCOPY performed by Andrew Berger MD at [facility] ENDOSCOPY PRO VEIN BYPASS GRAFT, BRACHIAL ULNAR OR RADIAL Right 10/07/2016 @BYPASS GRAFT, BRACHIAL-ULNAR OR RADIAL W\VEIN (VASC) performed by Andre Marroquin MD at [facility] MAIN OR SKIN BIOPSY BACK 05/06/14 excisional bx of 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 Physical Exam: Preprocedure Vitals Current as of 08/08/24 0814 No BP, pulse, respiration, SpO2, or temperature recorded. Height: Weight: BMI: IBW: Airway Assessment: Mallampati: II TM distance: >3 FB Neck ROM: full Cardiovascular Assessment: Rhythm: regular Pulmonary Assessment: unlabored breathing Dental Assessment: - normal exam Misc Assessment: Patient is wearing No contact(s). IV access: Peripheral line Last Filed Perioperative Cognitive Screening None Anesthesia Plan: ASA 2 MAC, with a(n) intravenous induction 62 year old female for EGD NPO Joseph's CKD briefly on HD years ago, associated with scleroderma, current GFR 59 Scleroderma on sildafanil GERD HTN No anesthesia problems in the past Plan MAC/TIVA Region - Other Informed Consent: Anesthetic plan and risks discussed with patient. Plan discussed with ASSOCIATE TECHNICIAN. Anesthesia Screening documented in this encounter Plan of Treatment Upcoming Encounters Date Type Department Care Team (Late st Contact Info) Description 10/07/2024 11:30 AM EST Office Visit Dermatology at [facility] [address] [place] [address] Jo Ordaz MD [facility] [place] [address] 12/13/2024 11:30 AM EST Appointment [place] [address] 12/13/2024 1:00 PM EST Office Visit Rheumatology at [facility] [place] [address] Kiet Pardo MD [facility] [place] [address] documented as of this encounter Visit Diagnoses Not on filedocumented in this encounter Administered Medications Inactive Administered Medications - up to 3 most recent administrations Medication Order MAR Action Action Date Dose Rate Site dexmedeTOMIDine (Precedex) (4 mcg/mL) bolus injection (Anesthsia) Intravenous, PRN, Starting on Nancy 08/08/24 at 1134, Until Nancy 08/08/24 at 1202, Anesthesia Intra-op, Routine Given 08/08/2024 11:53 AM EDT 8 mcg Given 08/08/2024 11:38 AM EDT 4 mcg Given 08/08/2024 11:34 AM EDT 8 mcg lactated ringers infusion Intravenous, CONTINUOUS PRN, Starting on Nancy 08/08/24 at 1055, Until Nancy 08/08/24 at 1202, Anesthesia Intra-op New Bag 08/08/2024 10:55 AM EDT lidocaine (pf) (Xylocaine) (20 mg/mL) 2% injection syringe Intravenous, PRN, Starting on Nancy 08/08/24 at 1141, Until Nancy 08/08/24 at 1202, Anesthesia Intra-op, Routine Given 08/08/2024 11:52 AM EDT 20 mg Given 08/08/2024 11:50 AM EDT 20 mg Given 08/08/2024 11:45 AM EDT 80 mg propofoL (Diprivan) (10 mg/mL) infusion Intravenous, CONTINUOUS PRN, Starting on Nancy 08/08/24 at 1141, Until Nancy 08/08/24 at 1202, Anesthesia Intra-op, Routine Rate/Dose Change 08/08/2024 11:52 AM EDT 250 mcg/kg/min 87.75 mL/hr New Bag 08/08/2024 11:41 AM EDT 200 mcg/kg/min 70.2 mL/ hr propofoL (Diprivan) 10 mg/mL bolus injection (Anesthesia) Intravenous, PRN, Starting on Nancy 08/08/24 at 1141, Until Nancy 08/08/24 at 1202, Anesthesia Intra-op Given 08/08/2024 11:45 AM EDT 10 mg Given 08/08/2024 11:43 AM EDT 20 mg Given 08/08/2024 11:42 AM EDT 20 mg documented in this encounter Care Teams Line Maintenance Technician Relationship Specialty Start Date End Date Ameya Acosta DNP [address] [place] [address] PCP - General Family Medicine 05/01/23 documented as of this encounter
--- OUTSIDE RECORDS SUMMARY | 2024-09-14 13:02 | XMS_ITS | Encounter Summary ---
Author Organization [facility] [place] [address] Care Team Providers Care Dinkey Engine Operator Name Role Phone Ameya Acosta [facility] Primary Care Provider Encounter Details Date Type Department Care Team (Latest Contact Info) Description 05/01/2023 9:15 AM EDT Laboratory Appointment Lab [address] [place] [phone] Stage 3a chronic kidney disease; Iron deficiency anemia, unspecified iron deficiency anemia type Social History Tobacco Use Types Packs/Day [...] 11:30 AM EST Office Visit Dermatology at [facility] [address] [place] [address] Jo Ordaz MD [facility] [place] [place] [address] 12/13/2024 11:30 AM EST Appointment [place] [address] 12/13/2024 1:00 PM EST Office [place] [address] Kiet Pardo MD [facility] [place] [address] documented as of this encounter Procedures Procedure Name Priority Date/Time Associated Diagnosis Comments U ALBUMIN/CRE RATIO Routine 05/01/2023 1 0:57 AM EDT Stage 3a chronic kidney disease PTH Routine 05/01/2023 10:38 AM EDT Stage 3a chronic kidney disease HEMOGRAM Routine 05/01/2023 10:38 AM EDT Stage 3a chronic kidney disease DIFFERENTIAL, AUTOMATED Routine 05/01/2023 10:38 AM EDT Stage 3a chronic kidney disease IRON AND TIBC Routine 05/01/2023 10:38 AM EDT Stage 3a chronic kidney disease Iron deficiency anemia, unspecified iron deficiency anemia type VITAMIN D, 25-HYDROXY Routine 05/01/2023 10:38 AM EDT Stage 3a chronic kidney disease CBC (WITH DIFF) Routine 05/01/2023 10:38 AM EDT Stage 3a chronic kidney disease URIC ACID Routine 05/01/2023 10:38 AM EDT Stage 3a chronic kidney disease PHOSPHORUS Routine 05/01/2023 10:38 AM EDT Stage 3a chronic kidney disease FERRITIN Routine 05/01/2023 10:38 AM EDT Stage 3a chronic kidney disease Iron deficiency anemia, unspecified iron deficiency anemia type ALBUMIN LEVEL Routine 05/01/2023 10:38 AM EDT Stage 3a chronic kidney disease BASIC METABOLIC PANEL Routine 05/01/2023 10:38 AM EDT Stage 3a chronic kidney disease documented in this encounter Results * (ABNORMAL) U Albumin/Cre Ratio (05/01/2023 10:57 AM EDT) Albumin / Creatinin Ratio, Urine 316(H) 0 - 29 mcg/mg Cr [facility] Comment: Reference Ranges: <30 mcg/mg: [...] Supplements (2012) 2, 357? 362 Albumin, Urine 66.4 mg/L [facility] Creatinine, Urine 21 mg/dL [facility] Urine 05/01/2023 10:5 7 AM EDT 05/01/2023 11:26 AM EDT Narrative Resulting Agency Comment Spec In Lab Nguyễn Underwood MD URINE ORDERABLES [facility] [place] [address] * Differential, Automated (05/01/2023 10:38 AM EDT) Neutrophil % 69.1 % [facility] Neutrophil Absolute 4.42 1.70 - 6.10 x10(3[facility] Lymph % 22.1 % [facility] Lymphocytes Abs 1.4 0.9 - 3.2 x10(3[facility] Monocyte % 6.1 % [facility] Monocyte Abs 0.4 0.3 - 0.9 x10(3)/[facility] Eos % 1.6 % [facility] Eosinophils Abs 0.1 0.0 - 0.4 x10(3[facility] Basophil % 0.9 % [facility] Baso Absolute 0.1 0.0 - 0.1 x10(3[facility] Immature Gran % 0.20 % [facility] Comment: Immature granulocytes(IG's)percentage and absolute count will include metamyelocytes, myelocytes, and promyelocytes. Blood smears from CBCs yielding IG's will be scanned manually for concordance. If this scan disagrees with the automated IG or if promyelocytes are noted, a manual differential will be performed. Immature Gran Absolute 0.01 0.00 - 0.04 x10(3[facility] Blood 05/01/2023 10:3 8 AM EDT 05/01/2023 10:43 AM EDT Narrative Resulting Agency Comment Spec In Lab Nguyễn Underwood MD HEMATOLOGY ORDERABLE S [facility] [place] [address] * (ABNORMAL) Hemogram (05/01/2023 10:38 AM EDT) White Blood Cell 6.4 4.0 - 9.5 x10(3)/mc L [facility] Red Blood Cell 4.21 4.00 - 5.21 x10(6)/mc L [facility] Hemoglobin 13.6 11.7 - 15.5 g/dL [facility] Hematocrit 41.2 35.7 - 45.8 % [facility] Mean Cell Volume 97.9(H) 82.6 - 94.4 fL [facility] Mean Cell Hemoglobin 32.3(H) 27.1 - 32.0 pg [facility] Mean Cell Hemoglobin Concentration 33.0 31.7 - 35.0 g/dL [facility] Platelet 273 145 - 357 x10(3)/mc L [facility] RDW Standard Deviation 46.5(H) 37.0 - 46.0 fL [facility] RDW coefficient of variation 13.0 11.5 - 14.1 % [facility] Mean Platelet Volume 10.5 7.6 - 12.9 fL [facility] NRBC% auto 0.0 % [facility] NRBC Absolute 0.000 0.000 - 0.000 x10(3)/mc L [facility] Blood 05/01/2023 10:3 8 AM EDT 05/01/2023 10:43 AM EDT Narrative Resulting Agency Comment Spec In Lab Nguyễn Underwood MD HEMATOLOGY ORDERABLE S [facility] [address] [place] [address] * Basic Metabolic Panel (non-fasting) (05/01/2023 10:38 AM EDT) Glucose 90 65 - 199 mg/dL [facility] Comment:Diabetes: >=200 mg/d L plus symptoms Blood Urea Nitrogen 15 8 - 18 mg/dL [facility] Creatinine 0.99 0.70 - 1.20 mg/dL [facility] Sodium 142 135 - 145 mmol/L [facility] Potassium 4.7 3.5 - 5.0 mmol/L [facility] Comment: Please note: ??Patients with WBC >100,000 may have falsely elevated Potassium levels. ??For accurate Potassium quantification in these patients send serum separator tube (gold top) for subsequent determinations. ??Contact the Clinical Chemistry Laboratory if there are any questions. Chloride 107 98 - 107 mmol/L [facility] Carbon Dioxide 24 22 - 31 mmol/L [facility] Anion Gap 11 5 - 15 mmol/L [facility] Calcium 9.1 8.5 - 10.5 mg/dL [facility] Est Glomerular Filtration Rate 65 >=60 mL/min/1. 73 m?? [facility] Comment: This patient's estimated GFR [...] and symptoms in addition to eGFR. Blood 05/01/2023 10:3 8 AM EDT 05/01/2023 10:43 AM EDT Narrative Resulting Agency Comment Spec In Lab Nguyễn Underwood MD CHEMISTRY ORDERABLES Performing Organization Address City/[facility] Co de Phone Number [facility] [place] [address] * Phosphorus (05/01/2023 10:38 AM EDT) Phosphorus 2.5 2.5 - 4.5 mg/dL [facility] Blood 05/01/2023 10:3 8 AM EDT 05/01/2023 10:43 AM EDT Narrative Resulting Agency Comment Spec In Lab Nguyễn Underwood MD CHEMISTRY ORDERABLES Performing Organization Address [facility] Co de Phone Number [facility] [place] [address] * Albumin Level (05/01/2023 10:38 AM EDT) Albumin 4.5 3.2 - 5.2 g/dL [facility] Blood 05/01/2023 10:3 8 AM EDT 05/01/2023 10:43 AM EDT Narrative Resulting Agency Comment Spec In Lab Nguyễn Underwood MD CHEMISTRY ORDERABLES Performing Organization Address City/[facility] Co de Phone Number [facility] [place] [address] * Uric acid (05/01/2023 10:38 AM EDT) Uric Acid 4.9 2.5 - 6.5 mg/dL [facility] Blood 05/01/2023 10:3 8 AM EDT 05/01/2023 10:43 AM EDT Narrative Resulting Agency Comment Spec In Lab Nguyễn Underwood MD CHEMISTRY ORDERABLES [facility] [place] [address] * (ABNORMAL) PTH (05/01/2023 10:38 AM EDT) Parathyroid Hormone 104(H) 15 - 65 pg/mL [facility] Blood 05/01/2023 10:3 8 AM EDT 05/01/2023 10:43 AM EDT Narrative Resulting Agency Comment Spec In Lab Nguyễn Underwood MD CHEMISTRY ORDERABLES Performing Organization Address City/[facility]/ZIP Co de Phone Number [facility] [place] [address] * Vitamin D, 25-Hydroxy (05/01/2023 10:38 AM EDT) Vitamin D Total 25 OH 42 21 - 100 ng/mL [facility] Vit D Interp Sufficient [facility] Blood 05/01/2023 10:3 8 AM EDT 05/01/2023 10:43 AM EDT Narrative Resulting Agency Comment Spec In Lab Nguyễn Underwood MD CHEMISTRY ORDERABLES Performing Organization Address [facility] Co de Phone Number [facility] [place] [address] * Ferritin (05/01/2023 10:38 AM EDT) Ferritin 61 30 - 400 ng/mL [facility] Comment: Pediatric reference ranges not verified at [facility], interpret with caution. Reference ranges for females greater than 50 years of age approach values for men, i.e., 30-400 ng/mL. Blood 05/01/2023 10:3 8 AM EDT 05/01/2023 10:43 AM EDT Narrative Resulting Agency Comment Spec In Lab Nguyễn Underwood MD CHEMISTRY ORDERABLES Performing Organization Address City/[facility]/ZIP Co de Phone Number [facility] [place] [address] * (ABNORMAL) Iron and TIBC (05/01/2023 10:38 AM EDT) Iron 56 30 - 150 mcg/dL [facility] TIBC 210(L) 250 - 450 mcg/dL [facility] Iron Saturation 27 20 - 50 % [facility] Blood 05/01/2023 10:3 8 AM EDT 05/01/2023 10:43 AM EDT Narrative Resulting Agency Comment Spec In Lab Nguyễn Underwood MD CHEMISTRY ORDERABLES [facility] [place] [address] documented in this encounter Visit Diagnoses Diagnosis Stage 3a chronic kidney disease Iron deficiency anemia, unspecified iron deficiency anemia type documented in this encounter Care Teams Dinkey Engine Operator Relationship Specialty Start Date End Date Ameya Acosta DNP [address] [place] [address] PCP - General Family Medicine 05/01/23 documented as of this encounter
--- OUTSIDE RECORDS SUMMARY | 2024-09-14 13:02 | XMS_ITS | Encounter Summary ---
Author Organization [facility] [place] [address] Care Team Providers Care Block Press Operator Name Role Phone Ameya Acosta DNP Primary Care Provider Encounter Details Date Type Department Care Team (Latest Contact Info) Description 02/21/2024 Travel Social History Tobacco Use Types Packs/Day [...] 11:30 AM EST Office Visit Dermatology at [address] [address] Jo Ordaz MD [facility] [place] [address] 12/13/2024 11:30 AM EST Appointment [place] [address] 12/13/2024 1:00 PM EST Office [place] [address] Kiet Pardo MD [facility] [place] [address] documented as of this encounter Visit Diagnoses Not on filedocumented in this encounter Care Teams Block Press Operator Relationship Specialty Start Date End Date Ameya Acosta DNP [address] [place] [address] PCP - General Family Medicine 05/01/23 documented as of this encounter
--- OUTSIDE RECORDS SUMMARY | 2024-09-14 13:02 | XMS_ITS | Encounter Summary ---
Author Organization [facility] [place] [address] Care Team Providers Care Field Operations Coordinator Name Role Phone Ameya Acosta DNP Primary Care Provider [phone] Reason for Visit * Reason Comments Skin Check Encounter Details Date Type Department Care Team (Late st Contact Info) Description 02/21/2024 1:45 PM EDT Office Visit Dermatology at [address] [address] Fuad Ordaz MD [facility] [place] [address] Seborrheic keratoses; Verruca vulgaris; Hypertrophic scar; History of impetigo; Seborrheic keratosis, inflamed; Scleroderma; Actinic keratoses; History of basal cell carcinoma Social History [...] as of this encounter Progress Notes * Fuad Ordaz MD - 02/21/2024 1:45 PM EDT Images from the original note were not included. DEPARTMENT OF DERMATOLOGY Medical Dermatology Clinic Provider: FUAD ORDAZ MD Patient's preferred name Amber Preferred contact method for results [x]Phone [x]myD-H []Letter Detailed phone message OK? Yes Are there any other people with whom we may discuss your care? 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, myofibroblastic spindle cell tumor (excision) 05/06/14: Back, desmoid-type fibromatosis (resection, excision) 04/20/16: Left anterior thigh, SK 11/02/17: Left extensor forearm, calcinosis cutis 05/22/2020: Right infrascapular back, desmoid tumor (excised by gen surg 06/2020) 08/21/20: Left occipital scalp mass, 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 Patient returns to clinic today for a full skin exam with the following concerns: - She reports that the actinic keratosis on her nose which Dr. aJmes treated with cryotherapy has notresolved. - She believes that she may have residual wart on the left anterior thigh s/p cryotherapy with Dr. James. She believes she may have a new wart on the right forearm. - Amber has finished the prescribed course of Rx: Mupirocin 2% Ointment to treat the impetigo on her right forehead but endorses persistent stinging/burning. - She notes a raised lesion on the left extensor forearm that I have previously biopsied. The lesion is sometimes tender to touch. She would like to explore potential removal options. - Amber's sister had to have Mohs surgery this past year. Last visit at Dermatology: 11/28/2023 Last visit with this provider: 03/15/2023 Medications: Reviewed in eD-H Allergies: Reviewed [...] Genitalia and buttocks were not examined. Assessment/Plan 1. Seborrheic Keratoses - Stuck on, waxy papules on the trunk and extremities, including the right forearm. - Benign. No treatment needed. 2. Verruca Vulgaris - Hyperkeratotic papule on the left anterior thigh, pinpoint thrombosed capillaries appreciated on dermoscopy. - Joint decision to pursue LN2 at this time. Procedure: Destruction of lesion with cryotherapy. Location(s): As noted above Number: 1 Discussed procedure and expectations including risks and benefits. Verbal consent obtained. Treatedwith LN2. There were no complications. Patient tolerated the procedure well. Post-procedure expectations and wound care were reviewed. 3. Hypertrophic Scar - Hypertrophic scar on the central chest at the site of previous biopsy. - Discussed benign nature and etiology. Reassurance provided. 4. History of Impetigo - No honey crusting or open lesions on exam today. - Remain off Rx: Mupirocin 2% Ointment. 5. Inflamed Seborrheic Keratosis - Inflamed, pink-brown plaque with waxy, stuck- on appearance on the right forearm (x1). - Discussed removal options due to irritated nature. - Joint decision to pursue cryotherapy at this time. Procedure: Destruction of lesion with cryotherapy. Location(s): As noted above Number: 1 Discussed procedure and expectations including risks and benefits. Verbal consent obtained. Treatedwith LN2. There were no complications. Patient tolerated the procedure well. Post-procedure expectations and wound care were reviewed. 6. Scleroderma - Qrhy-zcy-isdiun skin of scleroderma on the trunk and extremities; punctate hyperkeratotic erosions on the distal fingertips; sclerodactyly; telangiectasias. - Systemic disease managed by Rheumatology. - Advised that excision or shave removal of calcification on the left extensor forearm would like result in a non-healing ulcer and is not advised. 7. Actinic Keratoses - Ill-defined, gritty papules on the right forehead (x3) and chest (x4). - Explained etiology, natural history and premalignant potential of these lesions. - Patient opted to proceed with liquid nitrogen. - Patient should return to return to clinic for re-evaluation if lesions do not resolve with this treatment. Procedure: Destruction of lesions with cryotherapy. Location(s): As noted above Number: 7 Discussed procedure and expectations including risks and benefits. Verbal consent obtained. Treatedwith LN2. There were no complications. Patient tolerated the procedure well. Post-procedure expectations and wound care were reviewed. 8. History of Basal Cell Carcinoma - Well healed scars on the left chest and central upper back. - NER; will continue to clinically monitor. - Recommended continued daily application of sunscreen with SPF 30+ to all exposed skin. Zinc is a suitable barrier cream at night if desired. Other: Sun protection discussed (protective clothing and SPF30+ broad-spectrum sunscreen) OTC skin products discussed RTC: 6 months for FSE []Note routed to unit secretary []Recall placed in scheduling system [x]Appointment scheduled at checkout Scribe attestation: JILL Casanova has performed the documentation for this encounter in the presence of and acting as a scribe for FUAD ORDAZ MD. I performed the above scribed service and agree with the accuracy of the documentation in this encounter. Reviewed and signed by: FUAD ORDAZ MD Dermatology [facility] documented in this encounter Plan of Treatment Upcoming Encounters Date Type Department Care Team (Late st Contact Info) Description 10/07/2024 11:30 AM EST Office Visit Dermatology at [facility] [address] [address] Fuad Ordaz MD [facility] [place] [address] 12/13/2024 11:30 AM EST [place] [address] 12/13/2024 1:00 PM EST [place] [address] Kiet Pardo MD [facility] [place] [address] documented as of this encounter Visit Diagnoses Diagnosis Seborrheic keratoses Verruca vulgaris Viral warts, unspecified Hypertrophic scar Keloid scar History of impetigo Personal history of diseases of skin and subcutaneous tissue Seborrheic keratosis, inflamed Inflamed seborrheic keratosis Scleroderma Systemic sclerosis Actinic keratoses Actinic keratosis History of basal cell carcinoma Personal history of other malignant neoplasm of skin documented in this encounter Care Teams Field Operations Coordinator Relationship Specialty Start Date End Date Ameya Acosta DNP [address] [place] [address] PCP - General Family Medicine 05/01/23 documented as of this encounter
--- OUTSIDE RECORDS SUMMARY | 2024-09-14 13:02 | XMS_ITS | Encounter Summary ---
Author Organization [facility] [place] [address] Care Team Providers Care Trade Promotion Analyst Name Role Phone Ameya Acosta DNP Primary Care Provider [phone] Reason for Visit * Reason Comments Medication Refill Encounter Details Date Type Department Care Team (Late st Contact Info) Description 04/12/2024 Refill [place] [address] Kiet Pardo MD [facility] [place] [address] Social History Tobacco Use Types Packs/Day Years [...] 11:30 AM EST Office Visit Dermatology at [facility] [address] [place] [address] Jo Ordaz MD [facility] [place] [address] 12/13/2024 11:30 AM EST Appointment [place] [address] 12/13/2024 1:00 PM EST Office [place] [phone] Kiet Pardo MD [facility] [place] [address] documented as of this encounter Visit Diagnoses Not on filedocumented in this encounter Care Teams Trade Promotion Analyst Relationship Specialty Start Date End Date Ameya Acosta DNP [address] [place] [address] PCP - General Family Medicine 05/01/23 documented as of this encounter
--- OUTSIDE RECORDS SUMMARY | 2024-09-14 13:02 | XMS_ITS | Encounter Summary ---
Author Organization [facility] [place] [address] Care Team Providers Care Senior Research Associate Name Role Phone Ameya Acosta DNP Primary Care Provider [phone] Reason for Visit * Reason Onset Date Comments Medication Refill 07/16/2024 Encounter Details Date Type Department Care Team (Late st Contact Info) Description 07/16/2024 Refill [place] [address] Andrew Berger MD [facility] [place] [address] CKD (chronic kidney disease) stage 3, GFR [...] 11:30 AM EST Office Visit Dermatology at [facility] [address] [place] [address] Jo Ordaz MD [facility] [place] [address] 12/13/2024 11:30 AM EST Appointment [place] [address] 12/13/2024 1:00 PM EST Office Visit [place] [address] Kiet Pardo MD [facility] [place] [address] documented as of this encounter Visit Diagnoses Diagnosis CKD (chronic kidney disease) stage 3, GFR 30-59 ml/min Chronic kidney disease, Stage III (moderate) Scleroderma Systemic sclerosis documented in this encounter Care Teams Senior Research Associate Relationship Specialty Start Date End Date Ameya Acosta DNP [address] [place] [address] PCP - General Family Medicine 05/01/23 documented as of this encounter
--- OUTSIDE RECORDS SUMMARY | 2024-09-14 13:02 | XMS_ITS | Encounter Summary ---
Author Organization [facility] [place] [address] Care Team Providers Care Prepper Name Role Phone Ameya Acosta DNP Primary Care Provider [phone] Encounter Details Date Type Department Care Team (Latest Contact Info) Description 12/07/2023 Travel Social History Tobacco Use Types Packs/Day [...] 11:30 AM EST Office Visit Dermatology at [place] [address] [place] [address] Jo Ordaz MD [facility] [place] [address] 12/13/2024 11:30 AM EST Appointment [place] [address] 12/13/2024 1:00 PM EST Office Visit [place] [address] Kiet Pardo MD [facility] [place] [address] documented as of this encounter Visit Diagnoses Not on filedocumented in this encounter Care Teams Prepper Relationship Specialty Start Date End Date Ameya Acosta DNP [address] [place] [address] PCP - General Family Medicine 05/01/23 documented as of this encounter
--- OUTSIDE RECORDS SUMMARY | 2024-09-14 13:02 | XMS_ITS | Encounter Summary ---
Author Organization [facility] Address [facility] [place] [address] Care Team Providers Care Meat Pumper Name Role Phone Ameya Acosta DNP Primary Care Provider [phone] Reason for Visit * Reason Comments Skin Lesion Encounter Details Date Type Department Care Team (Late st Contact Info) Description 11/28/2023 10:40 AM EST Office Visit Dermatology at [address] [address] Ian Kathleen MD [facility] [place] [address] History of basal cell carcinoma (BCC) Social History Tobacco Use Types Packs/Day Years [...] as of this encounter Progress Notes * Ian Kathleen MD - 11/28/2023 10:40 AM EST Images from the original note were not included. DEPARTMENT OF DERMATOLOGY Medical Dermatology Clinic Provider: Ian Kathleen MD Patient's preferred name Amber Preferred contact [...] y.o. Patient returns to clinic today for LN2 for sBCC on the central upper back. -patient is having a great inflammatory process on her face from 5FU Last visit at Dermatology: 11/15/2023 Last visit with this provider: Visit date not found Medications: Reviewed in eD-H Allergies: Reviewed in eD-H Skin Examination: Focused skin examination of the central upper back and face was normal with the exception of the findings below. Assessment/Plan #. Biopsy-Proven sBCC - 1 cm bright red, well-demarcated, angulated plaque with slight scale on thecentral upper back (Figure 1). - Discussed treatment with cryotherapy; patient would like to proceed. - Instructed patient to return to clinic for re-evaluation if lesion(s) does not resolve as expected with this treatment. Procedure: Destruction of malignant lesion(s) with cryotherapy (LN2). Location(s): central upper back Number: 1 Discussed procedure and expectations, including risks (especially hypopigmentation) and benefits. Verbal consent obtained. Frozen with LN2, 45 second thaw time, twice. There were no complications; patient tolerated the procedure well. Post-procedure expectations and wound care were reviewed. - Final diameter: 1.1 cm Figure 1 Photo(s) taken and charted with patient's verbal consent. Other: Reviewed and/or interpreted test results RTC: PRN. FSE as scheduled for February 22, 2024 w/ DTB Scribe attestation: JILL Lord has performed the documentation for this encounter inthe presence of and acting as a scribe for Ian Kathleen MD. I performed the above scribed service and agree with the accuracy of the documentation in this encounter. Reviewed and signed by: Ian Kathleen MD Dermatology [facility] Staff elementary substitute teacher: Yu Jose MD Dermatology [facility] * Yu Jose MD - 11/28/2023 10:40 AM EST I was the supervising physician working with the Dermatology resident, Ian Kathleen MD, in the care of this Dermatology patient in person. For the purposes of billing, the resident provided the care. I have reviewed the encounter note details and level of service. YU JOSE MD Staff Mechanical Operator Department of Dermatology [facility] documented in this encounter Plan of Treatment Upcoming Encounters Date Type Department Care Team (Late st Contact Info) Description 10/07/2024 11:30 AM EST Office Visit Dermatology at [facility] [address] [place] [address] Jo Ordaz MD [facility] [place] [address] 12/13/2024 11:30 AM EST [place] [phone] 12/13/2024 1:00 PM EST Office [place] [address] Kiet Pardo MD [facility] [place] [address] documented as of this encounter Visit Diagnoses Diagnosis History of basal cell carcinoma (BCC) documented in this encounter Care Teams Meat Pumper Relationship Specialty Start Date End Date Ameya Acosta DNP [address] [place] [id number] PCP - General Family Medicine 05/01/23 documented as of this encounter
--- OUTSIDE RECORDS SUMMARY | 2024-09-14 13:02 | XMS_ITS | Encounter Summary ---
Author Organization [facility] [place] [address] Care Team Providers Care Joint Supervisor Name Role Phone Ameya Acosta DNP Primary Care Provider [phone] Encounter Details Date Type Department Care Team (Latest Contact Info) Description 08/17/2023 Travel Social History Tobacco Use Types Packs/Day [...] 11:30 AM EST Office Visit Dermatology at [address] [address] Jo Ordaz MD [facility] [place] [address] 12/13/2024 11:30 AM EST [place] [address] 12/13/2024 1:00 PM EST Office [place] [address] Kiet Pardo MD [facility] [place] [address] documented as of this encounter Visit Diagnoses Not on filedocumented in this encounter Care Teams Joint Supervisor Relationship Specialty Start Date End Date Ameya Acosta DNP [address] [place] [address] PCP - General Family Medicine 05/01/23 documented as of this encounter
--- OUTSIDE RECORDS SUMMARY | 2024-09-14 13:02 | XMS_ITS | Encounter Summary ---
Author Organization [facility] [place] [address] Care Team Providers Care Mail Distribution Scheme Examiner Name Role Phone Ameya Acsota DNP Primary Care Provider [phone] Reason for Visit * Reason Comments Medication Refill Encounter Details Date Type Department Care Team (Late st Contact Info) Description 09/03/2023 [place] [address] Kiet Pardo MD [facility] [place] [address] Scleroderma; CKD (chronic kidney disease) stage 3, [...] 11:30 AM EST Office Visit Dermatology at [facility] [address] [place] [address] Jo Ordaz MD [facility] [place] [address] 12/13/2024 11:30 AM EST Appointment [place] [address] 12/13/2024 1:00 PM EST Office [place] [address] Kiet Pardo MD [facility] [place] [address] documented as of this encounter Visit Diagnoses Diagnosis Scleroderma Systemic sclerosis CKD (chronic kidney disease) stage 3, GFR 30-59 ml/min Chronic kidney disease, Stage III (moderate) documented in this encounter Care Teams Mail Distribution Scheme Examiner Relationship Specialty Start Date End Date Ameya Acosta DNP [address] [place] [address] PCP - General Family Medicine 05/01/23 documented as of this encounter
--- OUTSIDE RECORDS SUMMARY | 2024-09-14 13:02 | XMS_ITS | Encounter Summary ---
Author Organization [facility] [place] [address] Care Team Providers Care Statistical Financial Analyst Name Role Phone Ameya Acosta [facility] Primary Care Provider [phone] Reason for Referral * Consultation (Routine) - Closed Specialty Diagnoses / Procedures Referred By Wander hernandez Referred To Contact General Surgery Diagnoses Scleroderma Kiet Pardo MD [facility] [place] [address] Suzie Horton MD [facility] [place] [address] Referral ID Status Reason Start Date Expiration Date V isits Requested Visits Authorized [id number] Closed Consult, Test & Treat 12/09/2023 12/08/2024 1 1 Reason for Visit * Reason Comments Follow-up Encounter Details Date Type Department Care Team (Late st Contact Info) Description 12/08/2023 11:00 AM EST Office [place] [address] Kiet Pardo MD [facility] [place] [address] Scleroderma Social History Tobacco Use Types Packs/Day [...] Sign Reading Time Taken Comments Blood Pressure 134/74 12/08/2023 10:50 AM EST Pulse 74 12/08/2023 10:50 AM EST Temperature 37.2 ??C (99 ??F) 12/08/2023 10:50 AM EST Respiratory Rate 17 12/08/2023 10:50 AM EST Oxygen Saturation 100% 12/08/2023 10:50 AM EST Inhaled Oxygen Concentration - - Weight 64.7 kg (142 lb 9.6 oz) 12/08/2023 10:50 AM EST Height 167.6 cm (5' 6) 12/08/2023 10:50 AM EST Body Mass Index 23.02 12/08/2023 10:50 AM EST documented in this encounter Progress Notes * Kiet Pardo MD - 12/08/2023 11:00 AM EST This is a return rheumatology visit for Ms. Cuevas with longstanding diffuse scleroderma complicated in the past by renal crisis with subsequent stage III CKD and also calcinosis with severe Raynaud's and digital ulcers.. Since her last encounter, Ms. Wells that she has persistent pain and swelling at the tip of the left thumb. Recently whitish material extruded from an area of skin breakdown at the tip consistent with calcinosis and this resulted in some reduction in pain. She has had similar but less severe painful swelling at the tip of the right thumb. Additionally she has had increasing difficulty with anorectal incontinence which she typically managed with immodium, but the frequency has increased to thepoint where it has limited her ability to venture far from a bathroom and as a result she has curtailed her outdoor activity. She otherwise reports no diarrhea, abdominal pain, SOB,SIBLEY, cough, or chest pain Medications were reviewed: Current Outpatient Medications on File Prior to Visit Medication Sig Dispense Refill mupirocin (Bactroban) 2 % Ointment Apply topically 3 times daily for 10-14 days 22 g 0 fosinopriL (Monopril) 20 mg tablet TAKE 1 TABLET BY MOUTH DAILY 90 tablet 3 amLODIPine (Norvasc) 5 mg tablet TAKE 1 TABLET BY MOUTH DAILY 90 tablet 3 sildenafiL (Revatio) 20 mg tablet TAKE TWO TABLETS BY MOUTH EVERY MORNING, ONE TABLET BY MOUTH IN THE AFTERNOON AND TWO TABLETS BY MOUTH EVERY EVENING. 150 tablet 5 esomeprazole (NexIUM) [address] capsule TAKE ONE CAPSULE BY MOUTH TWICE DAILY 180 capsule 3 furosemide (Lasix) 20 mg tablet Take 0.5 tablets by mouth daily. 30 tablet 3 potassium chloride ER (Klor-Con M) 10 mEq ER micro-encapsulated crystal tablet Take 1 tablet by mouth daily. 30 tablet 3 acetaminophen-codeine (Tylenol-Codeine #3) 300-30 mg tablet Take 2 tablets by mouth every 6 hours as needed for Pain. (Patient not taking: Reported on 05/01/2023) 60 tablet 0 cephALEXin (Keflex) 500 mg capsule Take 1 capsule by mouth 4 times daily. (Patient not taking: Reported on 05/01/2023) 40 capsule 3 lidocaine-prilocaine (EMLA) Cream APPLY [...] every 8 hours as needed for Pain. (Patient not taking: Reported on 12/16/2022) 30 tablet 1 loperamide (IMMODIUM) 2 mg [...] file prior to visit. Physical examination: BP 134/74 Pulse 74 Temp 37.2 ??C (99 ??F) (Temporal) Resp 17 Ht 167.6cm (5' 6) Wt 64.7 kg (142 lb 9.6 oz) LMP 11/27/2014 SpO2 100% BMI 23.02 kg/m?? The skin examination showed an area of STS with visible calcinosis at the tip of the left thumb. The abdomen also showed multiple small pea sized lesions consistent with calcinosis. The chest was clear and the cardiac examination showed no increase in P2. There was no peripheral edema. 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 Further evaluation for consideration of neural stimulation device or other potential interventions seems warranted. We will plan to refer Ms. Wells to Dr. Horton of Colon and Rectal Surgery for evaluation and any additional diagnostic evaluation including anorectal manometry. We will also planto obtain imaging of both hand to evaluate the extent of calcinosis and depending on the size of the lesions, the potential need for surgical removal. Ms. Wells was in agreement with this plan and her questions were answered. Established visit: 40 minutes total time. documented in this encounter Plan of Treatment Upcoming Encounters Date Type Department Care Team (Late st Contact Info) Description 10/07/2024 11:30 AM EST Office Visit Dermatology at [address] [place] [address] Jo Ordaz MD [facility] [address] 12/13/2024 11:30 AM EST Appointment [place] [address] 12/13/2024 1:00 PM EST Office [place] [address] Kiet Pardo MD [facility] [place] [address] Scheduled Referrals Name Type Priority Associated Diagnoses Order Schedule Referral to Colorectal Surgery Outpatient Referral Routine Scleroderma Ordered: 12/09/2023 documented as of this encounter Results * XR Hand Min [...] who have questions please contact the health memory care program director that requested your imaging first. ? Narrative [...] patients who have questions please contactthe health memory care program director that requested your imaging first. Kiet Pardo [...] who have questions please contact the health memory care program director that requested your imaging first. ? Narrative 12/08/2023 2:57 PM EST EXAMINATION: XR [...] patients who have questions please contactthe health memory care program director that requested your imaging first. Kiet Pardo MD IMG DX ORDERABLES documented in this encounter Visit Diagnoses Diagnosis Scleroderma Systemic sclerosis Scleroderma Systemic sclerosis documented in this encounter Care Teams Statistical Financial Analyst Relationship Specialty Start Date End Date Ameya Acosta DNP [address] [place] [address] PCP - General Family Medicine 05/01/23 documented as of this encounter
--- OUTSIDE RECORDS SUMMARY | 2024-09-14 13:02 | XMS_ITS | Encounter Summary ---
Author Organization [facility] [place] [address] Care Team Providers Care Seed Core Operator Name Role Phone Ameya Acosta DNP Primary Care Provider [phone] Encounter Details Date Type Department Care Team (Late st Contact Info) Description 09/13/2023 External Results Nephrology [place] [address] Jocelyn Salas RN Social History Tobacco Use Types Packs/Day Years [...] 11:30 AM EST Office Visit Dermatology at [facility] [address] [place] [address] Jo Ordaz MD [facility] [place] [address] 12/13/2024 11:30 AM EST Appointment [place] [address] 12/13/2024 1:00 PM EST Office [place] [address] Kiet Pardo MD [facility] [place] [address] documented as of this encounter Procedures Procedure Name Priority Date/Time Associated Diagnosis Comments HEMOGRAM Routine 09/11/2023 BASIC METABOLIC PANEL Routine 09/11/2023 documented in this encounter Results * Basic Metabolic Panel (non-fasting) (09/11/2023) Glucose 102 Blood Urea Nitrogen 25 Creatinine 1.10 Est Glomerular Filtration Rate 57 Sodium 138 Potassium 4.1 Chloride 103 Carbon Dioxide 26 Calcium 9.4 Albumin 4.0 Parathyroid Hormone 60 Vitamin D Total 25 OH 41 Albumin, Urine 638.1 Protein, Urine 99.1 Creatinine, Urine 159 Protein / Creatinine Ratio, Urine 0.6 Blood 09/11/2023 Nguynễ Underwood MD CHEMISTRY ORDERABLES * Hemogram (09/11/2023) White Blood Cell 8.1 Red Blood Cell 4.40 Hemoglobin 14.4 Hematocrit 42.8 Mean Cell Volume 96.8 Mean Cell Hemoglobin 32.6 Mean Cell Hemoglobin Concentration 33.6 RDW coefficient of variation 13.4 Platelet 308 Blood 09/11/2023 Nguyễn Underwood MD HEMATOLOGY ORDERABLE S documented in this encounter Visit Diagnoses Not on filedocumented in this encounter Care Teams Seed Core Operator Relationship Specialty Start Date End Date Amyea Acosta DNP [address] [place] [address] PCP - General Family Medicine 05/01/23 documented as of this encounter
--- OUTSIDE RECORDS SUMMARY | 2024-09-14 13:03 | XMS_ITS | Encounter Summary ---
Author Organization [facility] [place] [address] Care Team Providers Care Stamping Press Operator Name Role Phone None Primary Care Provider Unavailabl e Encounter Details Date Type Department Care Team (Latest Contact Info) Description 04/20/2023 9:28 AM EDT - 04/20/2023 11:26 AM EDT Hospital Encounter [place] [address] Andrew Berger MD [facility] [place] [address] Discharge Disposition: Home Social History Tobacco Use [...] Sign Reading Time Taken Comments Blood Pressure 138/72 04/20/2023 11:00 AM EDT Pulse 69 04/20/2023 9:44 AM EDT Temperature - - Respiratory Rate 16 04/20/2023 11:00 AM EDT Oxygen Saturation 98% 04/20/2023 11:00 AM EDT Inhaled Oxygen Concentration - - Weight 63 kg (139 lb) 04/20/2023 9:44 AM EDT Height - - Body Mass Index 21.76 01/24/2023 1:36 PM EST documented in this encounter Discharge Instructions * Discharge Instructions* Marquita Keyes RN - 04/20/2023 10:38 AM EDT Upper GI Endoscopy: What to Expect [...] the day after the procedure, use an kaju-xai-sseyuje spray to numb your throat. Sucking on [...] occurs, please contact your Doctor. Please call [phone] before 8pm Mon-Fri with problems, questions or concerns. If you call after 8pm or on weekends, call the Hospital at [phone] and ask to speak to the Medical Professionals insulation engineman and the bow making machine operator will contact that person for you. When should you call for help? Call 134 anytime you think you may need emergency [...] Where can you learn more? [facility] View your After Visit Summary and more online at [email or web address] If you would like to provide feedback about your hospital experience, please call the Office of Patient and Family Relations at . If you have received this After Visit Summary in error, please immediately return it in person to the department, or notify the [facility] Privacy Office by calling toll free at between the hours of 8AM and 5PM to arrange for our retrieval of the documents at no cost to you. Content Version: 12.2 ?? [phone] [email or web address]. Care instructions adapted under license by [facility]. If you have questions about a medical condition or this instruction, always ask your healthcare professional. [email or web address] disclaims any warranty or liability for your use of this information. documented in this encounter Medications at Time of Discharge Medication Sig Dispensed Refills Start Date End Date fluticasone propionate (Flonase) 50 mcg/actuation [place], Suspension Twice a day 02/20/2023 hydrocortisone 2.5 % Ointment as needed. 04/25/2022 zoledronic gvfh-bpqfrwkz-knuzg (zoledronic Acid) 5 mg/100 mL infusion .every year 03/07/2021 acetaminophen-codeine (Tylenol-Codeine #3) 300-30 mg tablet Take [...] BY MOUTH EVERY EVENING. 150 tablet 5 04/09/2023 05/16/2023 fosinopriL (MONOPRIL) 20 mg TabletIndications:Scle roderma,CKD (chronic kidney disease) stage 3, GFR 30-59 ml/min Take 1 tablet by mouth daily. 90 tablet 3 09/19/2022 09/07/2023 esomeprazole (NexIUM) 40 mg Capsule, Delayed Release(E.C.)Indicatio ns:CKD (chronic kidney disease) stage 3, GFR 30-59 ml/min,Scleroderma TAKE 1 CAPSULE BY MOUTH 2 TIMES DAILY 180 capsule 3 07/04/2022 07/03/2023 amLODIPine (Norvasc) 5 mg Tablet TAKE 1 TABLET BY MOUTH DAILY 90 tablet 3 06/23/2022 09/07/2023 silver sulfADIAZINE (Silvadene) 1 % Cream Apply topically daily. 50 g 09/24/2021 05/01/2023 documented as of this encounter H&P Notes * Solomon Dan MD - 04/20/2023 9:44 AM EDT Procedure: EGD with possible RFA Indication: Joseph's with HGD s/p ablation History of Present Illness: Amber Wells is a 62 y.o. 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 Patient Active Problem List Diagnosis Code ??? Anemia of chronic renal failure, stage 4 (severe) N18.4, D63.1 ??? CKD (chronic kidney disease) stage 4, GFR 15-29 ml/min N18.4 ??? GERD (gastroesophageal reflux disease) K21.9 ??? Scleroderma M34.9 ??? AK (actinic keratosis) L57.0 ??? Solar lentigo L81.4 ??? Multiple nevi D22.9 ??? 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 Altered bowel habits R19.4 ??? Fecal incontinence R15.9 ??? Swelling of extremity, right M79.89 ??? Raynaud's disease without gangrene I73.00 ??? 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 Lesion of skin of scalp L98.9 Medications: Reviewed in EDH Allergies Allergen Reactions ??? Other [Unclassified Drug] Lobster--weird sensation ??? Shellfish Derived Social History/Family History: Reviewed in EDH. No changes Exam: No data found. Axox3, nad Anicteric, MMM CTAB RRR, no m/r/g abd soft nt nd +bs Assessment and Plan: Proceed with EGD: ASA Grade: ASA 2 - Patient with mild systemic disease with no functional limitations Mallampati score:II (soft palate, uvula, fauces visible) Sedation plan: MAC Risks and benefits of the procedure were discussed with the patient. Consent has been signed. Solomon Dan MD documented in this encounter Plan of Treatment Upcoming Encounters Date Type Department Care Team (Late st Contact Info) Description 10/07/2024 11:30 AM EST Office Visit Dermatology at [address] [phone] Jo Ordaz MD [facility] [address] 12/13/2024 11:30 AM EST Appointment [place] [phone] 12/13/2024 1:00 PM EST Office [place] [phone] Kiet Pardo MD [facility] [place] [address] documented as of this encounter Procedures Procedure Name Priority Date/Time Associated Diagnosis Comments SURGICAL PATHOLOGY REPORT Routine 04/20/2023 10:23 AM EDT SPECIMEN TO PATHOLOGY Routine 04/20/2023 10:23 AM EDT SPECIMEN TO PATHOLOGY Routine 04/20/2023 10:23 AM EDT Upper Gi Endoscopy, Biopsy ([id number]) 04/20/2023 10:08 AM EDT Joseph's esophagus with high grade dysplasia UPPER GI ENDOSCOPY Routine 04/20/2023 9: 48 AM EDT documented in this encounter Results * Surgical Pathology Report (04/20/2023 10:23 AM EDT) Final Diagnosis [id number] ? Location: 4T; [facility]; A The signing pathologist has (i) examined the relevant preparation(s) for the specimen(s) and (ii) rendered or confirmed the diagnosis(es). . ?Surgical Pathology DIAGNOSIS A - GE junction at 37cm, biopsy (Multiple): Squamocolumnar junctional mucosa (cardia type) with active and chronic inflammation, and focal multilayer epithelium. ??There is no evidence of intestinal metaplasia. B - Distal esophagus biopsies at 36cm, biopsy (Multiple): Esophageal squamous mucosa within reactive change. Electronically signed by: ?Claire Du MD Verified: ??04/28/2023 19:44 ??Pathologist Performed at: ??-[facility] [place] [place], [place] [address] Clip On Sunglasses Inspector: Danny Rowland MD, FCAP, ??CLIA Certificate: [id number] SPECIMEN(S) SUBMITTED A - GE junction @ 37cm, biopsy (Multiple) B - Distal esophagus biopsies at 36cm, biopsy (Multiple) CLINICAL INFORMATION 62-year-old female Hx Joseph's with high-grade dysplasia. SPECIMEN PROCESSING A - Labeled/Fixativ e: GE junction at 37, formalin. Quantity/Size: Five, averaging 0.3 cm. Tissue Description: Soft, claire-pink tissues. Sections/Proces sing: Submitted in toto ??in 1 cassette labeled A1. B - Labeled/Fixativ e: Distal esophagus biopsies at 36 cm, formalin. Quantity/Size: Three, ranging from 0.5-0.7 cm. Tissue Description: Soft, pink-florence tissues. Sections/Proces sing: Submitted in toto ??in 1 cassette labeled B1. ??jnr 04/28/2023 7:44 PM EDT [facility] GI Biopsy 04/20/2023 10:2 3 AM EDT 04/20/2023 10:23 AM EDT GI Biopsy 04/20/2023 10:2 3 AM EDT 04/20/2023 10:23 AM EDT Andrew Berger MD PATHOLOGY/CYTOLOGY O [place]ETTE Performing Organization Address City/[facility]/ZIP Co de Phone Number [facility] [address] [place] [address] * Specimen to Pathology (04/20/2023 10:23 AM EDT) AP Specimen 04/20/2023 10:2 3 AM EDT 04/20/2023 10:23 AM EDT Narrative [facility] - 04/20/2023 10:23 AM EDT Specimen requisition ordered. ??Separate Pathology report to follow Andrew Berger MD PATHOLOGY/CYTOLOGY O [place] [facility] [place] [address] * Specimen to Pathology (04/20/2023 10:23 AM EDT) AP Specimen 04/20/2023 10:2 3 AM EDT 04/20/2023 10:23 AM EDT Narrative [facility] - 04/20/2023 10:23 AM EDT Specimen requisition ordered. ??Separate Pathology report to follow Andrew Berger MD PATHOLOGY/[place] [address] * UPPER GI ENDOSCOPY (04/20/2023 9:48 AM EDT) UPPER GI ENDOSCOPY [facility] Endoscopy Procedure Date: 04/20/2023 9:48 AM ? Patient Name: Amber Wells ? N: [id number] ? Date of : 1960 ? Age: 62 ? Order #: [id number] ? Instrument Name: [id number] ? Procedure: ? Upper GI endoscopy Indications: ? Joseph's high grade dysplasia, ? Follow-up of previous ? radiofrequency ablation treatment ? of Joseph's esophagus Providers: ? Andrew Berger MD, Shazia Mason. ? Soto, [place], Davin Molina MD: ?None, Medicines: ? Monitored Anesthesia Care Complications: ? [...] informed consent was ? obtained. ? - Patient identification and ? proposed procedure were verified ? prior to the procedure by the ? physician. The procedure was ? verified in the pre-procedure area. ? - Pre-procedure physical ? examination revealed no ? contraindications to sedation. ? - ASA Grade Assessment: II - A ? patient with mild systemic disease. ? - After reviewing the risks and ? benefits, the patient was deemed in ? satisfactory condition to undergo ? the procedure. ? - Monitored anesthesia care under ? the supervision of an ? anesthesiologist was determined to ? be medically necessary for this ? procedure based on complex ? procedure (ERCP, EUS). ? The procedure, indications, ? benefits, risks [...] procedure ? well. ? Findings: ? The esophagus and gastroesophageal junction were ? examined with white light and [employer] [place] Blue Light ? Imaging from a forward view and retroflexed position. ? The Z-line was irregular and located at 37 cm from ? the incisors. Biopsies were taken with a cold forceps ? for histology. ? The exam of the esophagus was otherwise normal. ? Biopsies were taken with a cold forceps in the distal ? esophagus for histology, 1cm proximal from the Z-line. ? The entire examined stomach was normal. ? The examined duodenum was normal. ? Moderate Sedation: ? See anesthesia notes. Impression: ?- Irregular Z-line without ? endoscopic evidence of residual or ? recurrent Joseph's. The previously ? seen island in the distal esophagus ? on 10/18/22 was no longer present. ? Surveillance biopsies taken to rule ? out recurrent Joseph's. ? - Otherwise normal EGD. Recommendation: ?- Await pathology results. ? - Repeat upper endoscopy in 1 year ? for surveillance based on pathology ? results. ? Procedure Code(s): ? --- Professional --- ? 24617, Esophagogastroduoden oscopy, ? flexible, transoral; with biopsy, ? single or multiple Diagnosis Code(s): ? --- Professional --- ? K22.711, Joseph's esophagus with ? high grade dysplasia ? Z09, Encounter for follow-up ? examination after completed ? treatment for conditions other than ? malignant neoplasm ? --- Technical --- ? K22.711, Joseph's esophagus with ? high grade dysplasia ? Z09, Encounter for follow-up ? examination after completed ? treatment for conditions other than ? malignant neoplasm CPT copyright 2020 [employer]. All rights reserved. The codes documented in this report are preliminary and upon hand painter review may be revised to meet current compliance requirements. Attending Participation: ? I was present and participated during the entire ? procedure, including non-cardenas portions. ? Andrew Berger MD 04/20/2023 2:36:40 PM Number of Addenda: 0 Note Initiated On: 04/20/2023 9:48 AM PROVATION 04/20/2023 9:48 AM EDT None GENERAL SURGICAL ORD ERABLES PROVATION documented in this encounter Visit Diagnoses Not on filedocumented in this encounter Administered Medications Inactive Administered Medications - up to 3 most recent administrations Medication Order MAR Action Action Date Dose Rate Site lactated ringers infusion 100 mL/hr, Intravenous, CONTINUOUS, Starting on Nancy 04/20/23 at 1000, Until Nancy 04/20/23 at 1123, Endoscopy (Day of Procedure) New Bag 04/20/2023 10:00 AM EDT 100 mL/hr 100 mL/hr documented in this encounter Active and Recently Administered Medications Times are shown in EDT. Continuous Medication Order 04/18/2023 04/19/2023 04/20/2023 lactated ringers infusion (CANCELED) 100 mL/hr, Intravenous, CONTINUOUS, Starting on Nancy 04/20/23 at 1000, Until Nancy 04/20/23 at 1123, Endoscopy (Day of Procedure) 1000 (New Bag - Prov ider: Gabriela Souza RN) documented in this encounter Care Teams Stamping Press Operator Relationship Specialty Start Date End Date None None PCP - General 04/19/23 04/30/23 documented as of this encounter
--- OUTSIDE RECORDS SUMMARY | 2024-09-14 13:03 | XMS_ITS | Encounter Summary ---
[place] [address] Care Team Providers Care Prep Manager Name Role Phone Unavailable Primary Care Provider Unavailabl e Reason for Visit * Treatment/Therapy Plan Authorization (Routine) - Authorized Specialty Diagnoses / Procedures Referred By Wander hernandez Referred To Contact Diagnoses Scleroderma Procedures inf Anant Perez PA [address] [place] [address] [facility] Med Infusion [address] [place] [phone] Referral ID Status Reason Start Date Expiration Date V isits Requested Visits Authorized [id number] Authorized 01/14/2022 01/14/2023 99 99 Encounter Details Date Type Department Care Team (Latest Contact Info) Description 12/16/2022 2:30 PM EST - 12/16/2022 11:59 PM EST Hospital Encounter [place] [address] Scleroderma Discharge Disposition: Home Social History Tobacco [...] Sign Reading Time Taken Comments Blood Pressure 133/68 12/16/2022 2:38 PM EST Pulse 78 12/16/2022 2:38 PM EST Temperature 36.6 ??C (97.9 ??F) 12/16/2022 2:38 PM ES T Respiratory Rate 16 12/16/2022 2:38 PM EST Oxygen Saturation 100% 12/16/2022 2:38 PM EST Inhaled Oxygen Concentration - - Weight 64.5 kg (142 lb 4.8 oz) 12/16/2022 2:38 P M EST Height - - Body Mass Index 22.28 12/16/2022 1:46 PM EST documented in this encounter Medications at Time of Discharge Medication Sig Dispensed Refills Start Date End Date hydrocortisone 2.5 % Ointment as needed. 04/25/2022 zoledronic rkfa-hssfwclu-eslyl (zoledronic Acid) 5 mg/100 mL infusion .every year 03/07/2021 lidocaine-prilocaine (EMLA) Cream APPLY EXTERNALLY TO THE [...] % Ointment Twice a day 02/01/2021 02/21/2024 cephALEXin (Keflex) 500 mg Capsule Take 1 capsule by mouth 4 times daily. 40 capsule 12/16/2022 02/22/2023 fosinopriL (MONOPRIL) 20 mg TabletIndications:Jaimie davila,CKD (chronic kidney disease) stage 3, GFR 30-59 ml/min Take 1 tablet by mouth daily. 90 tablet 3 09/19/2022 09/07/2023 sildenafiL (Revatio) 20 mg Tablet TAKE TWO TABLETS BY MOUTH EVERY MORNING, TAKE ONE TABLET BY MOUTH IN THE AFTERNOON AND TAKE TWO TABLETS BY MOUTH EVERY EVENING 150 tablet 5 09/01/2022 04/06/2023 esomeprazole (NexIUM) 40 mg Capsule, Delayed Release(E.C.)Indicatio ns:CKD (chronic kidney disease) stage 3, GFR 30-59 ml/min,Scleroderma TAKE 1 CAPSULE BY MOUTH 2 TIMES DAILY 180 capsule 3 07/04/2022 07/03/2023 amLODIPine (Norvasc) 5 mg Tablet TAKE 1 TABLET BY MOUTH DAILY 90 tablet 3 06/23/2022 09/07/2023 acetaminophen-codeine (Tylenol #3) 300-30 mg Tablet Take 2 tablets by mouth every 6 hours as needed for Pain. Reported on 03/29/2017 60 tablet 04/20/2022 03/29/2023 silver sulfADIAZINE (Silvadene) 1 % Cream Apply topically daily. 50 g 09/24/2021 05/01/2023 documented as of this encounter Progress Notes * Jaz Mathews RN - 12/16/2022 3:03 PM EST INFUSION THERAPY ADMINISTRATION NOTES DIAGNOSIS: 1. Scleroderma REASON FOR VISIT: Reclast Infusion Allergies Allergen Reactions ??? Other [Unclassified Drug] Lobster--weird sensation ??? Shellfish Derived SUBJECTIVE: Amber offers no complaints. OBJECTIVE: Last Reclast infusion 12/20/21. Ambulating independently. VITAL SIGNS: BP 133/68 (BP Location (NBP): Left arm, Patient Position: Sitting, BP Cuff Sizes: Adult (25-34 cm)) Pulse 78 Temp 36.6 ??C (97.9 ??F) (Temporal) Resp 16 Wt 64.5 kg (142 lb 4.8 oz) LMP 11/27/2014 SpO2 100% BMI 22.28 kg/m?? IF PAIN >5, INTERVENTION AND EFFECTIVENESS: N/A LAB DATA: Recent Results (from the past 24 hour(s)) Creatinine Result Value Ref Range Creatinine 1.14 0.70 - 1.20 mg/dL Estimated GFR 55 (L) >=60 mL/min/1.73 m?? BUN Result Value Ref Range BUN 18 8 - 18 mg/dL Calcium Result Value Ref Range Calcium 9.7 8.5 - 10.5 mg/dL IV ACCESS: Peripheral IV Line - Single Lumen 12/16/22 1500 median cubital vein (antecubital fossa), right 24 gauge;3/4 in length (Active) Indication/Daily Review of Necessity medication therapy intermittent 12/16/22 1500 Site Preparation/Maintenance site cleansed: 70% alcohol;dressing: dry and intact;dressing: transparent semipermeable applied 12/16/22 1500 Patency/Maintenance flushed without difficulty;blood return, able to obtain;infusing 12/16/22 1500 Phlebitis 0-->no symptoms 12/16/22 1500 Infiltration 0-->no symptoms 12/16/22 1500 Site Signs/Symptoms no redness;no swelling;no warmth;no pain 12/16/22 1500 PRE-MEDICATIONS/HYDRATION: Tylenol 650 mg PO @ 1500 MEDICATION/TREATMENT: Patient identification and orders checked against actual dose given at bedside by aJz Mathews RN. zoledronic acid (Reclast) 5 mg IV Administration times: See JAN Creatinine Clearance = 53.09. REACTIONS: None. ASSESSMENT: Awake and alert - tolerated treatment well. PLAN: Follow-up with Rheumatology. documented in this encounter Plan of Treatment Upcoming Encounters Date Type Department Care Team (Late st Contact Info) Description 10/07/2024 11:30 AM EST Office Visit Dermatology at [facility] [address] [place] [phone] Jo Ordaz MD [facility] [place] [address] 12/13/2024 11:30 AM EST Appointment [place] [address] 12/13/2024 1:00 PM EST Office [place] [address] Kiet Pardo MD [facility] [place] [address] documented as of this encounter Visit Diagnoses Diagnosis Scleroderma Systemic sclerosis documented in this encounter Administered Medications Inactive Administered Medications - up to 3 most recent administrations Medication Order MAR Action Action Date Dose Rate Site acetaminophen (Tylenol) tablet 650 mg 650 mg, Oral, ONCE, 1 dose, On Mon12/16/22 at 1500, Routine Given 12/16/2022 3:00 PM EST 650 mg zoledronic acid (Reclast) 5 mg in mannitol and water 100 mL infusion 5 mg 5 mg, Intravenous, ONCE, 1 dose, On Mon12/16/22 at 1500, Administer over 15 Minutes, Hold dose for CrCl< 35 mL/min. Do not mix with IV Calcium-containing products. Warning Vesicant/Irritant Medication Estimated CrCl 53.1mL/min based on ABW., Indication for: Osteoporosis, prevention of fractures New Bag 12/16/2022 3:00 PM EST 5 mg 400 mL/ hr documented in this encounter
--- OUTSIDE RECORDS SUMMARY | 2024-09-14 13:03 | XMS_ITS | Encounter Summary ---
Author Organization [facility] [place] [address] Care Team Providers Care Citizenship Instructor Name Role Phone Unavailable Primary Care Provider Unavailabl e Encounter Details Date Type Department Care Team (Late st Contact Info) Description 02/06/2023 Orders [place] [address] Anant Perez PA [address] [place] [address] Social History Tobacco Use Types Packs/Day Years [...] 11:30 AM EST Office Visit Dermatology at [facility] [address] [place] [address] Jo Ordaz MD [facility] [place] [address] 12/13/2024 11:30 AM EST Appointment [place] [address] 12/13/2024 1:00 PM EST Office [place] [phone] Kiet Pardo MD [facility] [place] [address] documented as of this encounter Visit Diagnoses Not on filedocumented in this encounter
--- OUTSIDE RECORDS SUMMARY | 2024-09-14 13:03 | XMS_ITS | Encounter Summary ---
Author Organization [facility] [place] [address] Care Team Providers Care Screenplay Writer Name Role Phone Unavailable Primary Care Provider Unavailabl e Encounter Details Date Type Department Care Team (Late st Contact Info) Description 12/01/2022 Telephone Nephrology [place] [phone] Marquita Cam Social History Tobacco Use Types Packs/Day Years [...] encounter Miscellaneous Notes * Telephone Encounter - Marquita Cam - 12/01/2022 10:03 AM EST Called patient to schedule a follow up appointment. Pt declined 12/21/22, pt wasn't interested in telehealth. Pt would like to try to coordinate apts on January 24. Did explain to pt that the clinic sheis in provider does them once a month and I can't promise providers clinic will fall on the day sherequested. Pt will call back the beginning of Dec to schedule for January. documented in this encounter Plan of Treatment Upcoming Encounters Date Type Department Care Team (Late st Contact Info) Description 10/07/2024 11:30 AM EST Office Visit Dermatology at [facility] [address] [place] [address] Jo Ordaz MD [facility] [place] [address] 12/13/2024 11:30 AM EST Appointment [place] [phone] 12/13/2024 1:00 PM EST Office [place] [phone] Kiet Pardo MD [facility] [place] [address] documented as of this encounter Visit Diagnoses Not on filedocumented in this encounter
--- OUTSIDE RECORDS SUMMARY | 2024-09-14 13:03 | XMS_ITS | Encounter Summary ---
Author Organization [facility] [place] [address] Care Team Providers Care Cotton Seed Culler Name Role Phone None Primary Care Provider Unavailabl e Encounter Details Date Type Department Care Team (Late st Contact Info) Description 04/11/2023 Orders Only [place] [address] Karla Bailey RN Stage 3a chronic kidney disease; Iron deficiency [...] 11:30 AM EST Office Visit Dermatology at [facility] [address] [place] [address] Jo Ordaz MD [facility] [place] [address] 12/13/2024 11:30 AM EST [place] [address] 12/13/2024 1:00 PM EST [place] [address] Kiet Pardo MD [facility] [place] [address] documented as of this encounter Results * (ABNORMAL) U Albumin/Cre Ratio (05/01/2023 10:57 AM EDT) Albumin / Creatinin Ratio, Urine 316(H) 0 - 29 mcg/mg Cr [facility] Comment: Reference Ranges: <30 mcg/mg: [...] 2, 357? 362 Albumin, Urine 66.4 mg/L [facility] Creatinine, Urine 21 mg/dL [facility] Urine 05/01/2023 10:5 7 AM EDT 05/01/2023 11:26 AM EDT Narrative Resulting Agency Comment Spec In Lab Nguyễn Underwood MD URINE ORDERABLES [facility] [place] [address] * (ABNORMAL) Iron and TIBC (05/01/2023 10:38 AM EDT) Iron 56 30 - 150 mcg/dL [facility] TIBC 210(L) 250 - 450 mcg/dL [facility] Iron Saturation 27 20 - 50 % [facility] Blood 05/01/2023 10:3 8 AM EDT 05/01/2023 10:43 AM EDT Narrative Resulting Agency Comment Spec In Lab Nguyễn Underwood MD CHEMISTRY ORDERABLES [facility] [place] [address] * Ferritin (05/01/2023 10:38 AM EDT) Ferritin 61 30 - 400 ng/mL [facility] Comment: Pediatric reference ranges not verified at [facility], interpret with caution. Reference ranges for females greater than 50 years of age approach values for men, i.e., 30-400 ng/mL. Blood 05/01/2023 10:3 8 AM EDT 05/01/2023 10:43 AM EDT Narrative Resulting Agency Comment Spec In Lab Nguyễn Underwood MD CHEMISTRY ORDERABLES [facility] [place] [address] * Vitamin D, 25-Hydroxy (05/01/2023 10:38 AM EDT) Vitamin D Total 25 OH 42 21 - 100 ng/mL [facility] Vit D Interp Sufficient [facility] Blood 05/01/2023 10:3 8 AM EDT 05/01/2023 10:43 AM EDT Narrative Resulting Agency Comment Spec In Lab Nguyễn Underwood MD CHEMISTRY ORDERABLES [facility] [place] [address] * (ABNORMAL) PTH (05/01/2023 10:38 AM EDT) Parathyroid Hormone 104(H) 15 - 65 pg/mL [facility] Blood 05/01/2023 10:3 8 AM EDT 05/01/2023 10:43 AM EDT Narrative Resulting Agency Comment Spec In Lab Nguyễn Underwood MD CHEMISTRY ORDERABLES Performing Organization Address City/[facility]/ZIP Co de Phone Number [facility] [place] [address] * Uric acid (05/01/2023 10:38 AM EDT) Uric Acid 4.9 2.5 - 6.5 mg/dL [facility] Blood 05/01/2023 10:3 8 AM EDT 05/01/2023 10:43 AM EDT Narrative Resulting Agency Comment Spec In Lab Nguyễn Underwood MD CHEMISTRY ORDERABLES Performing Organization Address [facility] Co de Phone Number [facility] [place] [address] * Albumin Level (05/01/2023 10:38 AM EDT) Albumin 4.5 3.2 - 5.2 g/dL [facility] Blood 05/01/2023 10:3 8 AM EDT 05/01/2023 10:43 AM EDT Narrative Resulting Agency Comment Spec In Lab Nguyễn Underwood MD CHEMISTRY ORDERABLES Performing Organization Address [facility] Co de Phone Number [facility] [place] [address] * Phosphorus (05/01/2023 10:38 AM EDT) Phosphorus 2.5 2.5 - 4.5 mg/dL [facility] Blood 05/01/2023 10:3 8 AM EDT 05/01/2023 10:43 AM EDT Narrative Resulting Agency Comment Spec In Lab Nguyễn Underwood MD CHEMISTRY ORDERABLES Performing Organization Address City/[facility] Co de Phone Number [facility] [place] [address] * Basic Metabolic Panel (non-fasting) (05/01/2023 10:38 AM EDT) Glucose 90 65 - 199 mg/dL [facility] Comment:Diabetes: >=200 mg/d L plus symptoms Blood Urea Nitrogen 15 8 - 18 mg/dL [facility] Creatinine 0.99 0.70 - 1.20 mg/dL [facility] Sodium 142 135 - 145 mmol/L [facility] Potassium 4.7 3.5 - 5.0 mmol/L [facility] Comment: Please note: ??Patients with WBC >100,000 may have falsely elevated Potassium levels. ??For accurate Potassium quantification in these patients send serum separator tube (gold top) for subsequent determinations. ??Contact the Clinical Chemistry Laboratory if there are any questions. Chloride 107 98 - 107 mmol/L [facility] Carbon Dioxide 24 22 - 31 mmol/L [facility] Anion Gap 11 5 - 15 mmol/L [facility] Calcium 9.1 8.5 - 10.5 mg/dL [facility] Est Glomerular Filtration Rate 65 >=60 mL/min/1. 73 m?? [facility] Comment: This patient's estimated GFR [...] In Lab Nguyễn Underwood MD CHEMISTRY ORDERABLES [facility] [place] [address] documented in this encounter Visit Diagnoses Diagnosis Stage 3a chronic kidney disease Iron deficiency anemia, unspecified iron deficiency anemia type documented in this encounter Care Teams Cotton Seed Culler Relationship Specialty Start Date End Date None None PCP - General 03/15/23 04/18/23 documented as of this encounter
--- OUTSIDE RECORDS SUMMARY | 2024-09-14 13:03 | XMS_ITS | Encounter Summary ---
Author Organization [facility] [place] [address] Care Team Providers Care Major Gifts Officer Name Role Phone Unavailable Primary Care Provider Unavailabl e Encounter Details Date Type Department Care Team (Latest Contact Info) Description 12/16/2022 Travel Social History Tobacco Use Types Packs/Day [...] AM EST Office Visit Dermatology at [address] [address] Jo Ordaz MD [facility] [place] [address] 12/13/2024 11:30 AM EST [place] [address] 12/13/2024 1:00 PM EST [place] [address] Kiet Pardo MD [facility] [place] [address] documented as of this encounter Visit Diagnoses Not on filedocumented in this encounter
--- OUTSIDE RECORDS SUMMARY | 2024-09-14 13:03 | XMS_ITS | Encounter Summary ---
Author Organization [facility] [place] [address] Care Team Providers Care Call Specialist Name Role Phone None Primary Care Provider Unavailabl e Encounter Details Date Type Department Care Team (Late st Contact Info) Description 03/15/2023 10:30 AM EDT Office Visit Dermatology at [facility] [address] [place] [address] Fuad Ordaz MD [facility] [place] [address] Scleroderma; Neoplasm of unspecified behavior of bone, soft tissue, and skin; AK (actinic keratosis); SK (seborrheic keratosis); Calcinosis cutis; Cyclone Social History Tobacco Use Types Packs/Day Years [...] Progress Notes * Fuad Ordaz MD - 03/15/2023 10:30 AM EDT Images from the original note were not included. DEPARTMENT OF DERMATOLOGY Medical Dermatology Clinic Provider: FUAD ORDAZ MD Patient's preferred name Amber Preferred contact method for results [x]??Phone [x]??myD-H []??Letter Detailed phone message OK? Yes Are there any other people with whom we may discuss your care? Yes - , Mike ?? Past Medical History Date, location, treatment Melanoma No Dysplastic nevi No SCC No BCC Yes -??05/29/19: Left chest, sBCC (ED&C) AKs Yes - LN2 UV Exposure & Protection ?? Other relevant past medical history?? Scleroderma, Raynaud's phenomenon ?? 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 Pre-Procedure Screening Details Allergy to lidocaine, epinephrine, Dermabond, chlorhexidine, or adhesives No Bleeding disorder or blood thinners No Implanted devices (Pacemaker, defibrillator, deep brain stimulator, cochlear implant) No ?? History of Present Illness: Amber Wells is a 62 y.o. Patient returns to clinic today for a full skin exam, the patient states the following concerns: - Patient states that she has pain on her right ear that has been there for a long time. Patient states that she cannot sleep on her right side because her ear is so painful. Patient states that she has had pain here for 25+ years. Patient states that it has been the same spot on the ear since it began hurting. Increasingly painful - Patient states that she has lesions of concern on the right presybeterian that are usually frozen, patient states that her presybeterian is burning and painful. -on abx for a infection of a digital ulcer - improving Last visit at Dermatology: 09/14/2022 Last visit with this provider: 09/14/2023 Medications: Reviewed in eD-H Allergies: Reviewed in [...] Genitalia and buttocks were not examined. Assessment/Plan ?? #. Scleroderma??-??Gfil-vne-kffieb skin of scleroderma??on the trunk and extremities; punctate hyperkeratotic erosions on the distal fingertips;??sclerodactyly;??telangiectasias - Systemic disease managed by Rheumatology. #. Digital Ulcer on the right thumb tip - Discussed use of continued antibiotics due to risk of infection #. 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 - Recommended a skin biopsy to confirm/clarify the nature of the skin lesion. After discussion of potential risks (scarring, bleeding, infection) and recurrence, patient agreed to proceed. - Patient denies known allergies to lidocaine and epinephrine. Procedure: Skin shave biopsy Location: right antitragus Time of procedure: 11:50 Discussed indications for procedure and expectations including [...] Keratoses - Ill-defined gritty papules on the x3 on the right forehead. - Explained premalignant potential of these lesions. - Discussed treatment with cryotherapy. Patient elects to proceed with cryotherapy today. - Instructed patient to return to clinic for re-evaluation if lesion(s) does not resolve as expected with this treatment. Procedure: Destruction of lesion(s) with cryotherapy (LN2). Location(s): As noted above. Number: 3 Discussed procedure and expectations, including risks and benefits. Verbal consent obtained. Treated with LN2. There were no complications; Patient tolerated the procedure well. Post-procedure expectations and wound care reviewed. #. Seborrheic Keratoses - Stuck on, waxy papules on the trunk and extremities. - Discussed benign nature of lesions and provided reassurance. No treatment necessary at this time. #. Biopsy proven Calcinosis Cutis - left extensor forearm x 1, right ear, scattered on abdomen, firm, white subcutaneous nodules. - Discussed the removal of these lesions would require excision. - Combined decision to watch and wait at this time. #. Clavus (Cyclone) - Focal hyperkeratotic papule on the right foot. - Discussed that these are caused by repeated pressure to an area and often exacerbated by footwear. - Recommended OTC corn remover pads. Figure 1 Photo(s) taken and charted with patient's verbal consent. Other: ??? N/A RTC: 6 months for FSE []Note routed to board of education secretary []Recall placed in scheduling system []Appointment scheduled at checkout Scribe attestation: JILL Figueroa has performed the documentation for this encounter in the presence of and acting as a scribe for FUAD ORDAZ MD. I performed the above scribed service and agree with the accuracy of the documentation in this encounter. Reviewed and signed by: FUAD ORDAZ MD Dermatology [facility] * Fuad Ordaz MD - 03/15/2023 10:30 AM EDT Oscar LiceaAmber, your recent skin biopsy was benign. Good news. I hope you are healing well. We will continue to keep an eye on the ear at your routine skin checks. Please let me know if you have any questions or concerns. -Fuad Ordaz documented in this encounter Plan of Treatment Upcoming Encounters Date Type Department Care Team (Late st Contact Info) Description 10/07/2024 11:30 AM EST Office Visit Dermatology at [facility] [address] [place] [address] Fuad Ordaz MD [facility] [place] [address] 12/13/2024 11:30 AM EST Appointment [place] [address] 12/13/2024 1:00 PM EST Office [place] [address] Kiet Pardo MD [facility] [place] [address] documented as of this encounter Procedures Procedure Name Priority Date/Time Associated Diagnosis Comments SURGICAL PATHOLOGY REPORT Routine 03/15/2023 4:43 PM EDT SPECIMEN TO PATHOLOGY Routine 03/15/2023 4:43 PM EDT Neoplasm of unspecified behavior of bone, soft tissue, and skin documented in this encounter Results * Surgical Pathology Report (03/15/2023 4:43 PM EDT) Final Diagnosis [id number] ? Location: [facility] The signing pathologist has (i) examined the relevant preparation(s) for the specimen(s) and (ii) rendered or confirmed the diagnosis(es). . ?Surgical Pathology DIAGNOSIS A - Right ??antitragus, skin shave biopsy: - Irregular endophytic squamous lesion with associated granulation tissue, ??transected (see discussion) Electronically signed by: ?Mery Reid MD Verified: ??03/29/2023 13:45 ??Dermatopathologist Performed at: ??-[facility] Dept. of Pathology, [place] [address] Youth Accommodation Support Worker: Danny Rowland MD, [facility], ??CLIA Certificate: [id number] DISCUSSION Overall, out of caution, at least continued observation of the site could be considered. The somewhat superficial nature of the biopsy precludes a comprehensive evaluation. The available findings are not entirely specific, but can be seen in the reactive epidermal changes that overlie ?? chondrodermatitis nodularis helicis (CNH), or possibly calcinosis cutis. These could be considered, but only in the right setting. The clinical differential has been reviewed. Findings diagnostic of squamous cell carcinoma are not seen here. Out of caution, at least continued observation of the site could be considered. If concern for ??Chondrodermatitis nodularis helicis (CNH) or calcinosis cutis arises or persists, additional deeper sampling may be of help. ADDITIONAL STUDIES Interpretation of multiple step-leveled slide sections confirms the diagnosis above. SPECIMEN(S) SUBMITTED A - right antitragus, skin shave biopsy (1) CLINICAL INFORMATION Calcinosis cutis in setting of scleroderma vs CNH rule out SCC. Tender papule of keratotic core on the right antitragus SPECIMEN PROCESSING A - Labeled/Fixative: Patient demographics, formalin. Quantity/Size: ??Single, 0.5 x 0.4 x 0.2 cm. Tissue Description: Granular, claire-white papule. Sections/Processing: Inked, bisected and entirely submitted in 1 cassette labeled A1. ??pps 03/29/2023 1:45 PM EDT [facility] SPECIMEN FROM SKIN / Unknown 03/15/2023 4:43 PM EDT 03/15/2023 4:43 PM EDT Fuad Ordaz MD PATHOLOGY/CYTOLOGY ORDERABLES [facility] [place] [id number] [facility] [place] [address] * Specimen to Pathology (03/15/2023 4:43 PM EDT) AP Specimen 03/15/2023 4:43 PM EDT 03/15/2023 4:43 PM EDT Narrative [facility] - 03/15/2023 4:43 PM EDT Specimen requisition ordered. ??Separate Pathology report to follow Fuad Ordaz MD PATHOLOGY/CYTOLOGY ORDERABLES [facility] [address] documented in this encounter Visit Diagnoses Diagnosis Scleroderma Systemic sclerosis Neoplasm of unspecified behavior of bone, soft tissue, and skin AK (actinic keratosis) Actinic keratosis SK (seborrheic keratosis) Other seborrheic keratosis Calcinosis cutis Degenerative skin disorder Cyclone Corns and callosities documented in this encounter Care Teams Call Specialist Relationship Specialty Start Date End Date None None PCP - General 03/15/23 04/18/23 documented as of this encounter
--- OUTSIDE RECORDS SUMMARY | 2024-09-14 13:03 | XMS_ITS | Encounter Summary ---
Author Organization [facility] [place] [address] Care Team Providers Care Dip Tube Assembler Machine Name Role Phone None Primary Care Provider Unavailabl e Reason for Visit * Reason Comments Medication Refill Encounter Details Date Type Department Care Team (Late st Contact Info) Description 04/06/2023 [place] [address] Kiet Pardo MD [facility] [place] [address] Social History Tobacco Use Types Packs/Day Years [...] 11:30 AM EST Office Visit Dermatology at [facility] [address] [place] [address] Jo Ordaz MD [facility] [place] [address] 12/13/2024 11:30 AM EST Appointment [place] [address] 12/13/2024 1:00 PM EST Office [place] [address] Kiet Pardo MD [facility] [place] [address] documented as of this encounter Visit Diagnoses Not on filedocumented in this encounter Care Teams Dip Tube Assembler Machine Relationship Specialty Start Date End Date None None PCP - General 03/15/23 04/18/23 documented as of this encounter
--- OUTSIDE RECORDS SUMMARY | 2024-09-14 13:03 | XMS_ITS | Encounter Summary ---
Author Organization [facility] [place] [address] Care Team Providers Care Water Resources Business Segment Leader Name Role Phone Ameya Acosta DNP Primary Care Provider [phone] Reason for Visit * Reason Onset Date Comments Medication Refill 02/18/2023 Encounter Details Date Type Department Care Team (Late st Contact Info) Description 02/18/2023 Refill Rheumatology at [facility] [place] [address] Kiet Pardo MD [facility] [place] [address] Scleroderma Social History Tobacco Use Types Packs/Day [...] 11:30 AM EST Office Visit Dermatology at [facility] [address] [place] [address] Jo Ordaz MD [facility] [place] [address] 12/13/2024 11:30 AM EST Appointment Pulmonology at [place] [phone] 12/13/2024 1:00 PM EST Office [place] [address] Kiet Pardo MD [facility] [place] [address] documented as of this encounter Visit Diagnoses Diagnosis Scleroderma Systemic sclerosis documented in this encounter Care Teams Water Resources Business Segment Leader Relationship Specialty Start Date End Date Ameya Acosta DNP [address] [place] [address] PCP - General Family Medicine 05/01/23 documented as of this encounter
--- OUTSIDE RECORDS SUMMARY | 2024-09-14 13:03 | XMS_ITS | Encounter Summary ---
[place] [address] Care Team Providers Care Railroad Crane Operator Name Role Phone Danya Acuna BRIGHT Primary Care Provider [phone] Encounter Details Date Type Department Care Team (Late st Contact Info) Description 07/29/2022 [place] [phone] Bonny Perdue Social History Tobacco Use Types Packs/Day Years Used Date Smoking Tobacco: Former Cigarettes 1 10 0 03/30/1978 - 03/30/1988 Smokeless Tobacco: Never Comments:never vape Alcohol Use Standard Drinks/Week Comments Not Currently 0 (1 standard drink = 0.6 oz pur e alcohol) holidays Sex and Gender Information Value Date Recorded Sex Assigned at Female 09/17/2021 7:57 PM EDT Gender Identity Female 11/08/2018 9:52 PM EST Sexual Orientation Straight 07/09/2021 4: 47 PM EDT documented as of this encounter Miscellaneous Notes * Telephone Encounter - Bonny Perdue - 07/29/2022 10:32 AM EDT LM for pt to call back and get f/u scheduled documented in this encounter Plan of Treatment Upcoming Encounters Date Type Department Care Team (Late st Contact Info) Description 10/07/2024 11:30 AM EST Office Visit Dermatology at [facility] [address] [place] [address] Jo Ordaz MD [facility] [place] [place] [address] 12/13/2024 11:30 AM EST [place] [address] 12/13/2024 1:00 PM EST [place] [address] Kiet Pardo MD [facility] [place] [address] documented as of this encounter Visit Diagnoses Not on filedocumented in this encounter Care Teams Railroad Crane Operator Relationship Specialty Start Date End Date Danya Acuna, BRIGHT [address] [place] [address] [address] [place] [address] PCP - General Family Medicine 02/19/21 08/12/22 documented as of this encounter
--- OUTSIDE RECORDS SUMMARY | 2024-09-14 13:03 | XMS_ITS | Encounter Summary ---
[place] [address] Care Team Providers Care Geographic Information Systems Director Name Role Phone Unavailable Primary Care Provider Unavailabl e Reason for Referral * High Dollar Medication (Routine) - Closed Specialty Diagnoses / Procedures Referred By Wander hernandez Referred To Contact Plastic Surgery Diagnoses Raynaud's disease without gangrene Procedures Onabotulinumtoxin A (BOTOX) Authorizations Request (IN CLINIC) TC ONABOTULINUMTOXINA, 1 UNIT, INJECTION Andre Marroquin MD [facility] [place] [address] [facility] Plastic Surg [address] [place] [address] Referral ID Status Reason Start Date Expiration Date V isits Requested Visits Authorized [id number] Closed Consult, Test & Treat 09/06/2022 09/06/2023 4 4 Encounter Details Date Type Department Care Team (Late st Contact Info) Description 09/01/2022 Orders [place] [address] Andre Marroquin MD [facility] [place] [address] Raynaud's disease without gangrene Social History Tobacco [...] 11:30 AM EST Office Visit Dermatology at [facility] [address] [place] [address] Jo Ordaz MD [facility] [place] [address] 12/13/2024 11:30 AM EST [place] [address] 12/13/2024 1:00 PM EST [place] [address] Kiet Pardo MD [facility] [place] [address] documented as of this encounter Visit Diagnoses Diagnosis Raynaud's disease without gangrene documented in this encounter
--- OUTSIDE RECORDS SUMMARY | 2024-09-14 13:03 | XMS_ITS | Encounter Summary ---
Author Organization [facility] [place] [address] Care Team Providers Care Intelligence Support Officer Name Role Phone Unavailable Primary Care Provider Unavailabl e Encounter Details Date Type Department Care Team (Latest Contact Info) Description 03/08/2023 Travel Social History Tobacco Use Types Packs/Day [...] 11:30 AM EST Office Visit Dermatology at [address] [address] Jo Ordaz MD [facility] [place] [address] 12/13/2024 11:30 AM EST Appointment [place] [address] 12/13/2024 1:00 PM EST Office [place] [address] Kiet Pardo MD [facility] [place] [address] documented as of this encounter Visit Diagnoses Not on filedocumented in this encounter
--- OUTSIDE RECORDS SUMMARY | 2024-09-14 13:03 | XMS_ITS | Encounter Summary ---
Author Organization [place] [id number] Care Team Providers Care Closing Manager Name Role Phone Unavailable Primary Care Provider Unavailabl e Reason for Visit * Reason Comments Prior Authorization Sildenafil citrate 2 0mg tabs Encounter Details Date Type Department Care Team (Late st Contact Info) Description 03/08/2023 Specialty [place] [phone] Sujata Todd, [facility] Social History Tobacco Use Types Packs/Day Years [...] as of this encounter Progress Notes * Sujata Todd - 03/08/2023 4:23 PM EDT [facility], Medication Prior Authorization Submission Patient: Amber Wells Patient : 1960 Patient Address: [address] [facility] [address] (home) Medication Name: SILDENAFIL (PULMONARY HYPERTENSION) 20 MG TABLET Medication ID: [id number] Subscriber Insurance: [place] Subscriber Insurance Comment: Phone: Fax: Physician: DOLLY PARDO Physician Comment: Sent Via: [facility] Andino: [id number] Ref/Case/PA#: Medication Strength Frequency Requested: Take 2 tablets by mouth in the morning, 1 tablet in the afternoon and 2 tablets in the evening Qty/Day Supply: 150/30 New Start: New to Therapy Diagnosis & ICD-10 Code: Scleroderma M34.9 Patient Notified: Yes Submission Notes: None Sujata Todd 03/08/23 4:27 PM * Sujata Todd - 03/08/2023 4:23 PM EDT [facility], Prior Authorization Approval Medication Name: SILDENAFIL (PULMONARY HYPERTENSION) 20 MG TABLET Medication ID: [id number] Approval Dates: 03/08/2023 to 03/08/2024 Insurance requirements/notes: None Other Notes: None Case/Reference #: [id number] Approval notification Received via: Fax Copay: $1.00 Copay assistance: None Copay Notes: Insurance mandated Pharmacy: Fillable at [facility] Specialty Pharmacy: Yes Patient Notified: Yes Pharmacy staff will be reaching out to the patient to inform them of their medication's [facility]. If applicable, a pharmacist will speak with the patient to offer our specialty pharmacy services and to arrange delivery of their medication. Sujata Todd 03/09/23 7:50 AM documented in this encounter Plan of Treatment Upcoming Encounters Date Type Department Care Team (Late st Contact Info) Description 10/07/2024 11:30 AM EST Office Visit Dermatology at [facility] [address] [place] [address] Jo Ordaz MD [facility] [place] [address] 12/13/2024 11:30 AM EST [place] [phone] 12/13/2024 1:00 PM EST [place] [phone] Dolly Pardo MD [facility] [place] [address] documented as of this encounter Visit Diagnoses Not on filedocumented in this encounter
--- OUTSIDE RECORDS SUMMARY | 2024-09-14 13:03 | XMS_ITS | Encounter Summary ---
[place] [address] Care Team Providers Care Shading Painter Name Role Phone Unavailable Primary Care Provider Unavailabl e Encounter Details Date Type Department Care Team (Late st Contact Info) Description 12/22/2022 Telephone [place]ph[place] [phone] Marquita Cam Social History Tobacco Use Types [...] * Telephone Encounter - Marquita Cam - 12/22/2022 3:00 PM EST Returned patients call to try to coordinate appointments on 01/24/23. Unfortunately CKD clinic is 01/23/23, did let patient know CKD speciality clinic is once a month. Pt would like to try to coordinate with February. Did advise patient our February calendar isn't out yet, she will call our office the beginning of January to try to coordinate for February. documented in this encounter Plan of Treatment Upcoming Encounters Date Type Department Care Team (Late st Contact Info) Description 10/07/2024 11:30 AM EST Office Visit Dermatology at [facility] [address] [place] [address] Jo Ordaz MD [facility] [place] [address] 12/13/2024 11:30 AM EST Appointment [place] [phone] 12/13/2024 1:00 PM EST Office [place] [phone] Kiet Pardo MD [facility] [place] [address] documented as of this encounter Visit Diagnoses Not on filedocumented in this encounter
--- OUTSIDE RECORDS SUMMARY | 2024-09-14 13:03 | XMS_ITS | Encounter Summary ---
Author Organization [facility] Address [facility] [place] [address] Care Team Providers Care Rn Clinical Documentation Specialist Name Role Phone Ameya Acosta [facility] Primary Care Provider [phone] Encounter Details Date Type Department Care Team (Latest Contact Info) Description 05/01/2023 10:40 AM EDT Office Visit [place] [address] Nguyễn Underwood MD [facility] [place] [address] A, Nurse Clinician None Stage 3a chronic kidney disease; Hyperparathyroidism Social History Tobacco Use Types Packs/Day Years [...] Sign Reading Time Taken Comments Blood Pressure 129/73 05/01/2023 11:25 AM EDT Pulse 66 05/01/2023 11:25 AM EDT Temperature - - Respiratory Rate - - Oxygen Saturation - - Inhaled Oxygen Concentration - - Weight 64.4 kg (142 lb) 05/01/2023 11:25 AM EDT Height - - Body Mass Index 22.23 01/24/2023 1:36 PM EST documented in this encounter Patient Instructions * Patient Instructions* Jocelyn Salas RN - 05/01/2023 10:40 AM EDT Your kidney function is fantastic, your lab values are in normal range. Whatever calcium you take has to be excreted somehow. You are experiencing some calcinosis in your body. Please consult with your student services director to see if you should change your dose a little bit. For your reflux, you can try 1/4 tsp of baking soda (sodium bicarbonate) in 16oz or more of water and slowly sip it throughout theday. It should not make you more alkaline. It may help with the inflammation. For the edema you're experiencing with some foods, Dr. Underwood can prescribe a low dose of furosemide(10mg) as needed if you are retaining a high amount of fluid. Then make sure you are taking one potassium tablet when you take the furosemide. Please do not take it more than once a week. Keep an eye on your blood pressure, try to take it more consistently to make sure it is not going up too much. Dr. Underwood would like you to do a 24 hour urine calcium test. You can do this through your local hospital in [place]; we will fax the labs to them. Call if you feel differently (consistent symptoms of nausea, vomiting, little appeal for food, itching, change in sleep patterns, worsening energy levels, shortness of breath). These are some of the signs of worsening kidney function. We will see you sooner if you are not feeling well. Please call. Jocelyn Salas MBA, sap basis architect Kidney Disease Nurse Clinician [facility] Nephrology documented in this encounter Progress Notes * Jocelyn Salas RN - 05/01/2023 10:40 AM EDT [facility] [address] [place] [address] Reason for Clinic Visit: Systems Review and CKD management. 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 History of Present Illness: History obtained by RN Specialist: Last seen in clinic on 05/31/22 eGFR 63. Patient visited her sister in February and went to a [employer]. She retained 10lbs of fluid that lasted for 4 days, which has never happened to her before. She has also gotten some bloating in her belly after eating a small tuna or egg salad sandwich at times. Patient has had an increase in anxiety around people. Review of Systems: Sign/Symptom Comments Activity level/fatigue: Can walk 2-3 miles Change in sleep patterns: No issues Nocturia: 3x; does drink a lot of fluids Appetite changes: No - great, low salt diet, salads, fruit, veggies, mostly vegetarian diet. Food aversions: Food tastes good but her sense of smell has changed over the last few years Nausea: No Vomiting: No Bowels: Switches chronically between diarrhea and constipation Edema: 1+ Shortness of breath: No Orthopnea/PND: No PND; 1 pillow Muscle Cramping: No Cold intolerance: Hands from Raynaud's Itching: no Bruising/bleeding: No - bruising, nose bleeds, or black stools. Mental Status Changes: Maybe a little difficulty with concentration, gets overwhelmed easily Recent Home Blood Pressure Control: Not regularly checking at home but has always been good Recent Lipid Management: Not on lipid medications. Additional CCM Comments: How's your health been in the last 4 weeks : Poor, Fair, Good, Very Good, Excellent She is seeing student services director at [facility] for the scleroderma management. She is seeing GI for the bowel issues. Sees dermatology and plastics, receiving botox injections in the hands three times annually. Additional CCM Comments: Social Determinant Date/Comments Food Security/ Nutritional Education Primarily vegetarian, low salt diet. Stable Housing/ Safety Concerns Lives with in a house. Community Supports/ Transportation issues/ Appointment coordination She has dual citizenship in [place], drives. Functional Status/ Assistive devices None Learning Style/Considerations Engagement/Readiness to learn or change Financial/Insurance concerns Employment [place], not working Hepatitis B Status: Serum Testing Date of Testing Results Hep B sAb/Hep B sAg not tested Vaccination Status: Unknown Fistula Date/Type of Initial Access/Surgeon: Had tunneled dialysis catheter removed at [facility] in June 2010. No plans for fistula at this time. Kidney function has been stable and slowly improving Advanced Directives: On file in eDH. 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 ALLERGIES: Allergies Allergen Reactions Other [Unclassified Drug] Lobster--weird sensation Shellfish Derived MEDICATIONS: Current Outpatient Medications Medication Sig Dispense Refill sildenafiL (Revatio) 20 mg tablet TAKE TWO TABLETS BY MOUTH EVERY MORNING, ONE TABLET BY MOUTH IN THE AFTERNOON AND TWO TABLETS BY MOUTH EVERY EVENING. 150 tablet 5 fosinopriL (MONOPRIL) 20 mg Tablet Take 1 tablet by mouth daily. 90 tablet 3 esomeprazole (NexIUM) 40 mg Capsule, Delayed Release(E.C.) TAKE 1 CAPSULE BY MOUTH 2 TIMES DAILY 180 capsule 3 amLODIPine (Norvasc) 5 mg Tablet TAKE 1 TABLET BY MOUTH DAILY 90 tablet 3 lidocaine-prilocaine (EMLA) Cream APPLY EXTERNALLY TO THE AFFECTED AREA NEEDED 30 g 2 fish oil-omega-3 fatty acids 1,000 mg Capsule Take 1,000 mg by mouth daily. calcium citrate (Calcitrate) 200 mg (950 mg) Tablet Take 1,200 mg by mouth daily. glycerin, adult, Suppository daily as needed. 0 loperamide (IMMODIUM) 2 mg Capsule Take 2 mg by mouth 4 times daily as needed for Diarrhea. vitamin E 400 unit Capsule Take 400 Units by mouth daily. cholecalciferol, Vitamin D3, 25 mcg (1,000 unit) Capsule Take 1 tablet by mouth daily. nitroGLYcerin (NITROGLYN) 2 % ointment Place 0.5 inches onto the skin every 6 hours. acetaminophen-codeine (Tylenol-Codeine #3) 300-30 mg tablet Take 2 tablets by mouth every 6 hours as needed for Pain. (Patient not taking: Reported on 05/01/2023) 60 tablet 0 cephALEXin (Keflex) 500 mg capsule Take 1 capsule by mouth 4 times daily. (Patient not taking: Reported on 05/01/2023) 40 capsule 3 Ibuprofen 200 mg Capsule Take by mouth. polyethylene glycoL (Miralax) 17 gram/dose Powder Take 17 g by mouth daily. psyllium husk (METAMUCIL ORAL) Take by mouth daily. acetaminophen (TYLENOL) 500 mg Tablet Take 2 tablets by mouth every 8 hours as needed for Pain. (Patient not taking: Reported on 12/16/2022) 30 tablet 1 No current facility-administered medications for this visit. PHYSICAL EXAM: Vitals: 05/01/23 1125 BP: 129/73 Pulse: 66 Weight: 64.4 kg (142 lb) Body mass index is 22.23 kg/m??. 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 Procedure: Pre-Anesthesia Assessment: - Prior to the procedure, a History and Physical was performed, and patient medications, allergies and sensitivities were reviewed. The patient's tolerance of previous anesthesia was reviewed. - The risks and benefits of the procedure and the sedation options and risks were discussed with the patient. All questions were answered and informed consent was obtained. - Patient identification and proposed procedure were verified prior to the procedure by the physician. The procedure was verified in the pre-procedure area. - Pre-procedure physical examination revealed no contraindications to sedation. - ASA Grade Assessment: II - A patient with mild systemic disease. - After reviewing the risks and benefits, the patient was deemed in satisfactory condition to undergo the procedure. - Monitored anesthesia care under the supervision of an anesthesiologist was determined to be medically necessary for this procedure based on complex procedure (ERCP, EUS). T he procedure, indications, benefits, risks and alternatives were explained to the patient. Specifically discussed were potential complications including, but not limited to, bleeding, perforation, infection, missing a cancer, and adverse medication reactions. The Endoscope was introduced through the mouth, and advanced to the second part of duodenum The upper GI endoscopy was accomplished without difficulty. The patient tolerated the procedure well. Findings: The esophagus and gastroesophageal junction were examined with white light and Fujifilm Blue Light Imag ing from a forward view and retroflexed position. The Z-line was irregular and located at 37 cm from the incisors. Biopsies were taken with a cold forceps for histology. The exam of the esophagus was otherwise normal. Biopsies were taken with a cold forceps in the distal esophagus for histology, 1cm proximal from the Z-line. The entire examined stomach was normal. The examined duodenum was normal. Moderate Sedation: See anesthesia notes. Impression: - Irregular Z-line without endoscopic evidence of residual or recurrent Joseph's. The previously seen island in the distal esophagus on 10/18/22 was no longer present. Surveillance biopsies taken to rule out recurrent Joseph's. - Otherwi se normal EGD. Recommendation: - Await pathology results. - Repeat upper endoscopy in 1 year for surveillance based on pathology results. Procedure Code(s): --- Professional --- 56884, Esophagogastroduodenoscopy, flexible, transoral; with biopsy, single or multiple Diagnosis Code(s): --- Professional --- K22.711, Joseph's esophagus with high grade dysplasia Z09, Encounter for follow-up examination after completed treatment for conditions other than malignant neoplasm --- Technical --- K22.711, Joseph's esophagus with high grade dysplasia Z09, Encounter for follow-up examination after completed treatment for conditions other than malignant neoplasm CPT copyright 2020 [employer] [place] [employer]. All rights reserved. The codes documented in this report are preliminary and upon remote inpatient coder review may be revised to meet current compliance requirements. Attending Participation: I was present and participated during the entire procedure, including non-cardenas portions. nAdrew Berger MD 04/20/2023 2:36:40 PM Number of Addenda: 0 Note Initiated On: 04/20/2023 9:48 AM Surgical Pathology Report Collection Time: 04/20/23 10:23 AM Result Value Ref Range Surgical Pathology Report [id number] Location: 4T; EA12; A The signing pathologist has (i) examined the relevant preparation(s) for the specimen(s) and (ii) rendered or confirmed the diagnosis(es). . Surgical Pathology DIAGNOSIS A - GE junction at 37cm, biopsy (Multiple): Squamocolumnar junctional mucosa (cardia type) with active and chronic inflammation, and focal multilayer epithelium. There is no evidence of intestinal metaplasia. B - Distal esophagus biopsies at 36cm, biopsy (Multiple): Esophageal squamous mucosa within reactive change. Electronically signed by: Florian HEARD, Claire Verified: 04/28/2023 19:44 Pathologist Performed at: -[facility] Dept. of Pathology, [place] [address] Senior Telecommunications Technician: Danny Rowland MD, FCAP, CLIA Certificate: [id number] SPECIMEN(S) SUBMITTED A - GE junction @ 37cm, biopsy (Multiple) B - Distal esophagus biopsies at 36cm, biopsy (Multipl e) CLINICAL INFORMATION 62-year-old female Hx Joseph's with high-grade dysplasia. SPECIMEN PROCESSING A - Labeled/Fixative: GE junction at 37, formalin. Quantity/Size: Five, averaging 0.3 cm. Tissue Description: Soft, claire-pink tissues. Sections/Processing: Submitted in toto in 1 cassette labeled A1. B - Labeled/Fixative: Distal esophagus biopsies at 36 cm, formalin. Quantity/Size: Three, ranging from 0.5-0.7 cm. Tissue Description: Soft, pink-florence tissues. Sections/Processing: Submitted in toto in 1 cassette labeled B1. jnr Ferritin Collection Time: 05/01/23 10:38 AM Result Value Ref Range Ferritin 61 30 - 400 ng/mL Vitamin D, 25-Hydroxy Collection Time: 05/01/23 10:38 AM Result Value Ref Range 25-OH Vit D Total 42 21 - 100 ng/mL 25-OH Vit D Interp Sufficient PTH Collection Time: 05/01/23 10:38 AM Result Value Ref Range PTH 104 (H) 15 - 65 pg/mL Uric acid Collection Time: 05/01/23 10:38 AM Result Value Ref Range Uric Acid 4.9 2.5 - 6.5 mg/dL Albumin Level Collection Time: 05/01/23 10:38 AM Result Value Ref Range Albumin 4.5 3.2 - 5.2 g/dL Phosphorus Collection Time: 05/01/23 10:38 AM Result Value Ref Range Phosphorus 2.5 2.5 - 4.5 mg/dL Basic Metabolic Panel (non-fasting) Collection Time: 05/01/23 10:38 AM Result Value Ref Range Glucose Lvl 90 65 - 199 mg/dL BUN 15 8 - 18 mg/dL Creatinine 0.99 0.70 - 1.20 mg/dL Sodium 142 135 - 145 mmol/L Potassium 4.7 3.5 - 5.0 mmol/L Chloride 107 98 - 107 mmol/L CO2 24 22 - 31 mmol/L Anion Gap 11 5 - 15 mmol/L Calcium 9.1 8.5 - 10.5 mg/dL Estimated GFR 65 >=60 mL/min/1.73 m?? Hemogram Collection Time: 05/01/23 10:38 AM Result Value Ref Range WBC 6.4 4.0 - 9.5 x10(3)/mcL RBC 4.21 4.00 - 5.21 x10(6)/mcL Hemoglobin 13.6 11.7 - 15.5 g/dL Hematocrit 41.2 35.7 - 45.8 % MCV 97.9 (H) 82.6 - 94.4 fL MCH 32.3 (H) 27.1 - 32.0 pg MCHC 33.0 31.7 - 35.0 g/dL Platelets 273 145 - 357 x10(3)/mcL RDWSD 46.5 (H) 37.0 - 46.0 fL RDWCV 13.0 11.5 - 14.1 % MPV 10.5 7.6 - 12.9 fL nRBC % Auto 0.0 % nRBC Abs Auto 0.000 0.000 - 0.000 x10(3)/mcL Differential, Automated Collection Time: 05/01/23 10:38 AM Result Value Ref Range Neutrophils % 69.1 % Neutr Abs (ANC) 4.42 1.70 - 6.10 x10(3)/mcL Lymphocytes % 22.1 % Lymphocytes Abs 1.4 0.9 - 3.2 x10(3)/mcL Monocytes % 6.1 % Monocyte Abs 0.4 0.3 - 0.9 x10(3)/mcL Eosinophils % 1.6 % Eosinophils Abs 0.1 0.0 - 0.4 x10(3)/mcL Basophils % 0.9 % Basophils Abs 0.1 0.0 - 0.1 x10(3)/mcL Immature Gran % 0.20 % Yessica Gran Abs 0.01 0.00 - 0.04 x10(3)/mcL ASSESSMENT AND PLAN: Problem: Chronic Kidney Disease Estimated GFR (mL/min/1.73 m??) Date Value 05/01/2023 65 12/16/2022 55 (L) 05/31/2022 63 CKD Stage 1/2 Potassium Date Value Ref Range Status 05/01/2023 4.7 3.5 - 5.0 mmol/L Final Comment: Please note: Patients with WBC >100,000 may have falsely elevated Potassium levels. For accurate Potassium quantification in these patients send serum separator tube (gold top) for subsequent determinations. Contact the Clinical Chemistry Laboratory if there are any questions. 05/31/2022 5.1 (H) 3.5 - 5.0 mmol/L Final Comment: Please note: Patients with WBC >100,000 may have falsely elevated Potassium levels. For accurate Potassium quantification in these patients send serum separator tube (gold top) for subsequent determinations. Contact the Clinical Chemistry Laboratory if there are any questions. 12/20/2021 4.7 3.5 - 5.0 mmol/L Final Comment: Please note: Patients with WBC >100,000 may have falsely elevated Potassium levels. For accurate Potassium quantification in these patients send serum separator tube (gold top) for subsequent determinations. Contact the Clinical Chemistry Laboratory if there are any questions. CO2 (mmol/L) Date Value 05/01/2023 24 05/31/2022 24 12/20/2021 22 not on bicarb Uric Acid (mg/dL) Date Value 05/01/2023 4.9 05/31/2022 5.6 04/09/2021 5.5 not on allopurinol Standard Recommendations: Reduce rate of progression. Education for CKD stage- specific issues. RN Notes: Your kidney function is fantastic, your lab values are in normal range. Whatever calcium you take has to be excreted somehow. You are experiencing some calcinosis in your body. Please consult with your student services director to see if you should change your dose a little bit. For your reflux, youcan try 1/4 tsp of baking soda (sodium bicarbonate) in 16oz or more of water and slowly sip it throughout the day. It should not make you more alkaline. It may help with the inflammation. For the edema you're experiencing with some foods, Dr. Underwood can prescribe a low dose of furosemide(10mg) as needed if you are retaining a high amount of fluid. Then make sure you are taking one potassium tablet when you take the furosemide. Please do not take it more than once a week. MD/RADIAL DRILL OPERATOR FOR PLASTIC A/P: Problem: Management of Anemia related to Chronic Kidney Disease (CKD) Hemoglobin (g/dL) Date Value 05/01/2023 13.6 Goal: 9.5-10.9 g/dl Ferritin (ng/mL) Date Value 05/01/2023 61 Goal: >100ng/ml Iron Saturation (%) Date Value 05/31/2022 16 (L) Goal: >20% RONAK: No IV Iron replacement therapy (Venofer), Last dose: Patient had iron infusion in October RN Notes: HGB at goal. MD/RADIAL DRILL OPERATOR FOR PLASTIC A/P: Problem: Hypertension BP: (129)/(73) Goal (if urine alb:cr ratio is <30mg/g): </= 140/90 Goal (if urine alb:cr ratio is >30mg/g): </= 130/80 Standard Recommendations: Sodium intake < 2 Gm per day. RN Notes: Keep an eye on your blood pressure, try to take it more consistently to make sure it is not going up too much. MD/RADIAL DRILL OPERATOR FOR PLASTIC A/P: Problem: Proteinuria Prot/Cre Ratio (ratio) Date Value 05/31/2022 0.4 Goal: <0.2mg/mg RN Notes: On fosinopril 20 mg daily MD/RADIAL DRILL OPERATOR FOR PLASTIC A/P: Problem: Bone and mineral metabolism 25-OH Vit D Total (ng/mL) Date Value 05/01/2023 42 05/31/2022 51 10/02/2019 33 On vitamin D 1,000 units daily PTH (pg/mL) Date Value 05/01/2023 104 (H) 05/31/2022 62 12/20/2021 81 (H) not on calcitriol Goal: Stage 3: 35-70 pg/ml Stage 4: 70-110 pg/ml Stage 5: 150-300 pg/ml Phosphorus (mg/dL) Date Value 05/01/2023 2.5 05/31/2022 3.1 12/20/2021 2.7 not on sevelamer/calcium carbonate (Tums)/calcium acetate Goal: 2.7-4.6mg/dl Calcium (mg/dL) Date Value 05/01/2023 9.1 12/16/2022 9.7 05/31/2022 9.5 On calcium citrate 1200 mg for osteoporosis Goal: 8.5-10.5mg/dl RN Notes: Dr. Underwood would like you to do a 24 hour urine calcium test. You can do this through [facility] in [place]; we will fax the labs to them. MD/RADIAL DRILL OPERATOR FOR PLASTIC A/P: Problem: Nutrition Albumin (g/dL) Date Value 05/01/2023 4.5 05/31/2022 4.7 12/20/2021 4.7 Goal: >/= 4.0 gm/dl Body mass index is 22.23 kg/m??. Goal: 20-25 kg/m2 RN Notes: Continue healthy eating MD/RADIAL DRILL OPERATOR FOR PLASTIC A/P: Return to CKD clinic: 6 months Summary: Please see separate notes. * Nguyễn Underwood MD - 05/01/2023 10:40 AM EDT 62-year-old very pleasant lady with prior history of scleroderma renal crisis, has crest syndrome, YOUNG requiring dialysis in the past coming here for follow-up. She has calcinosis, Raynaud's, esophageal dysmotility and Joseph's esophagus, and sclerodactyly. Chest clear. HS normal. Trace edema. Has iron deficiency. She had iron infusion in October ( OSH) Checks blood pressure at home, but has not been checking it recently. Has been struggling with acid reflux. Blood pressure currently well controlled, she is on PERRY inhibitor, amlodipine and is on sildenafil for her vascular issues. Creatinine stable. She has bloating sensation with high salt diet. Will give 10 mg Lasix with 10 meq potassium to alleviate her symptoms. Advised her not to take it more than 10 per week. Will get 24 hr urine calcium levels due to high PTH. ? She has primary hyperparathyroidism. RTC 6 months. documented in this encounter Plan of Treatment Upcoming Encounters Date Type Department Care Team (Late st Contact Info) Description 10/07/2024 11:30 AM EST Office Visit Dermatology at [address] [place] [address] Jo Ordaz MD [facility] [place] [address] 12/13/2024 11:30 AM EST Appointment [place] [phone] 12/13/2024 1:00 PM EST Office [place] [phone] Kiet Pardo MD [facility] [place] [address] documented as of this encounter Visit Diagnoses Diagnosis Stage 3a chronic kidney disease Hyperparathyroidism Hyperparathyroidism, unspecified documented in this encounter Care Teams Rn Clinical Documentation Specialist Relationship Specialty Start Date End Date Ameya Acosta DNP [address] [place] [id number] PCP - General Family Medicine 05/01/23 documented as of this encounter
--- OUTSIDE RECORDS SUMMARY | 2024-09-14 13:03 | XMS_ITS | Encounter Summary ---
Author Organization [facility] [place] [address] Care Team Providers Care Wheat Cleaner Name Role Phone Lilibeth Phillips MD Primary Care Provider [phone] Encounter Details Date Type Department Care Team (Late st Contact Info) Description 10/18/2022 11:30 AM EST - 10/18/2022 12:00 PM EST [place] [address] Andrew Berger MD [facility] [place] [address] EGD WITH BIOPSY (WRVU 2.39) Social History Tobacco Use Types Packs/Day Years [...] Sign Reading Time Taken Comments Blood Pressure 145/80 10/18/2022 10:57 AM EST Pulse 87 10/18/2022 10:57 AM EST Temperature 36.5 ??C (97.7 ??F) 10/18/2022 10:[address] Respiratory Rate 18 10/18/2022 10:57 AM EST Oxygen Saturation 98% 10/18/2022 10:57 AM EST Inhaled Oxygen Concentration - - Weight 61.2 kg (135 lb) 10/18/2022 10:57 AM EST Height 170.2 cm (5' 7) 10/18/2022 10:57 AM EST Body Mass Index 21.14 10/18/2022 10:57 AM EST documented in this encounter Discharge Instructions * Discharge Instructions* Janine Vegas RN - 10/18/2022 12:27 PM EST Upper GI Endoscopy: What to Expect at [...] the day after the procedure, use an pahp-aud-frjdkqq spray to numb your throat. Sucking on [...] occurs, please contact your Doctor. Please call [phone] before 8pm Mon-Fri with problems, questions or concerns. If you call after 8pm or on weekends, call the Hospital at [phone] and ask to speak to the [employer] compensation specialist and the sander operator will contact that person for you. When should you call for help? Call [phone] anytime you think you may need emergency [...] Where can you learn more? [facility] View your After Visit Summary and [...] cost to you. Content Version: 12.2 ?? [id number] [employer]. Care instructions adapted under license by [facility]. If you have questions about a medical condition or this instruction, always ask your healthcare professional. [employer] disclaims any warranty or liability for your use of this information. documented in this encounter Medications at Time of Discharge Medication Sig Dispensed Refills Start Date End Date hydrocortisone 2.5 % Ointment as needed. 04/25/2022 zoledronic ptws-ssexblec-renbp (zoledronic Acid) 5 mg/100 mL infusion .every [...] % Ointment Twice a day 02/01/2021 02/21/2024 fosinopriL (MONOPRIL) 20 mg TabletIndications:Jaimie davila,CKD (chronic [...] as of this encounter H&P Notes * Andrew Berger MD - 10/18/2022 11:55 AM EST Gastroenterology and Hepatology Pre-Procedure History and Physical Exam Procedure: EGD: Indication: F/up ablation of Joseph's with HGD. Patient Active Problem List Diagnosis Code ??? [...] ??? Lesion of skin of scalp L98.9 EXAM: HEENT: Airway examined, oropharynx clear Mallampati Score: Per anesthesia LUNGS: Clear to auscultation HEART: Regular rate and rhythm, normal S1, S2 ABDOMEN: Normal bowel sounds, soft, non tender, non distended, A/P Proceed with the planned endoscopic procedure. ASA 2 - Patient with mild systemic disease with no functional limitations Sedation Plan: deep Risks and benefits of the procedure explained to the patient. Consent signed. documented in this encounter Miscellaneous Notes * Op Note - Andrew Berger MD - 10/18/2022 12:10 PM EST C Operative Note Patient Name: Amber Wells : [id number] MR#: [id number] Case Date: 10/18/2022 Surgeon: Surgeon(s) and Role: * Andrew Berger MD - Primary Preoperative diagnosis: f/up Joseph's ablation Postoperative diagnosis: * No post-op diagnosis entered * Procedure(s) (LRB): EGD WITH BIOPSY (WRVU 2.49) (N/A) Anesthesia: MAC Full procedure note is documented under the Procedure section of [facility]. documented in this encounter Plan of Treatment Upcoming Encounters Date Type Department Care Team (Late st Contact Info) Description 10/07/2024 11:30 AM EST Office Visit Dermatology at [place] [address] [place] [address] Jo Ordaz MD [facility] [place] [address] 12/13/2024 11:30 AM EST [place]oint[place] [address] 12/13/2024 1:00 PM EST Office [place] [address] Kiet Pardo MD [facility] [place] [address] documented as of this encounter Procedures Procedure Name Priority Date/Time Associated Diagnosis Comments SPECIMEN TO PATHOLOGY Routine 10/18/2022 12:23 PM EST SPECIMEN TO PATHOLOGY Routine 10/18/2022 12:23 PM EST SPECIMEN TO PATHOLOGY Routine 10/18/2022 12:23 PM EST SURGICAL PATHOLOGY REPORT Routine 10/18/2022 12:14 PM EST Upper Gi Endoscopy, Biopsy ([id number]) 10/18/2022 12:02 PM EST Joseph's esophagus with high grade dysplasia documented in this encounter Results * Specimen to Pathology (10/18/2022 12:23 PM EST) AP Specimen 10/18/2022 12:2 3 PM EST 10/18/2022 12:23 PM EST Narrative [facility] - 10/18/2022 12:23 PM EST Specimen requisition ordered. ??Separate Pathology report to follow Andrew Berger MD PATHOLOGY/CYTOLOGY O RDTONY [facility] [place] [address] * Specimen to Pathology (10/18/2022 12:23 PM EST) AP Specimen 10/18/2022 12:2 3 PM EST 10/18/2022 12:23 PM EST Narrative [facility] - 10/18/2022 12:23 PM EST Specimen requisition ordered. ??Separate Pathology report to follow Andrew Berger MD PATHOLOGY/CYTOLOGY O RDERAJOSUE [facility] [place] [address] * Specimen to Pathology (10/18/2022 12:23 PM EST) AP Specimen 10/18/2022 12:2 3 PM EST 10/18/2022 12:23 PM EST Narrative [facility] - 10/18/2022 12:23 PM EST Specimen requisition ordered. ??Separate Pathology report to follow Andrew Berger MD PATHOLOGY/CYTOLOGY Patricia CRAWFORD [facility] [place] [address] * Surgical Pathology Report (10/18/2022 12:14 PM EST) Final Diagnosis [id number] ? Location: 4T; EA10; A The signing pathologist has (i) examined the relevant preparation(s) for the specimen(s) and (ii) rendered or confirmed the diagnosis(es). . ?Surgical Pathology DIAGNOSIS A - Small island at 38cm, biopsy (Multiple): - ??Squamocolumna r junctional mucosa with intestinal metaplasia, negative for dysplasia (see Discussion). B - Z-line at 39cm, biopsy (Multiple): - ??Squamocolumna r junctional mucosa (cardia type) with mild chronic inflammation. - There is no evidence of intestinal metaplasia. C - Distal esophagus at 38cm, biopsy (Multiple): - ??Esophageal squamous mucosa, within normal limits. Electronically signed by: ?Adri HEARD PhD, Josie Verified: ??10/21/2022 12:41 ??Pathologist Performed at: ??-[facility] Dept. of Pathology, [place] [address] Transmission Superintendent: Danny Rowland MD, FCAP, ??CLIA Certificate: [id number] DISCUSSION A - ??The findings are compatible with Joseph esophagus in the appropriate endoscopic setting. SPECIMEN(S) SUBMITTED A - Small island at 38cm, biopsy (Multiple) B - Z-line at 39cm, biopsy (Multiple) C - Distal esophagus at 38cm, biopsy (Multiple) CLINICAL INFORMATION 62-year-old female with history of Joseph's with HGD; rule out recurrent Joseph's SPECIMEN PROCESSING A - Labeled/Fixativ e: Small island at 38 cm, formalin. Quantity/Size: Multiple, ranging from 0.1-0.3 cm. Tissue Description: Soft, white tissues. Sections/Proces sing: Submitted en toto ??in 2 cassettes labeled A1-A2. B - Labeled/Fixativ e: Z line at 39 cm, formalin. Quantity/Size: Four, averaging 0.3 cm. Tissue Description: Soft, pink-white tissues. Sections/Proces sing: Submitted en toto ??in 1 cassette labeled B1. C - Labeled/Fixativ e: Distal esophagus at 38 cm, formalin. Quantity/Size: Four, averaging 0.3 cm. Tissue Description: Soft, pink-white tissues. Sections/Proces sing: Submitted en toto ??in 1 cassette labeled C1. ??sns 10/21/2022 12:41 PM EST [facility] GI Biopsy 10/18/2022 12:1 4 PM EST 10/18/2022 12:14 PM EST GI Biopsy 10/18/2022 12:1 4 PM EST 10/18/2022 12:14 PM EST GI Biopsy 10/18/2022 12:1 4 PM EST 10/18/2022 12:14 PM EST Andrew Berger MD PATHOLOGY/CYTOLOGY O RDERABLES [facility] [place] [address] documented in this encounter Visit Diagnoses Diagnosis Joseph's esophagus with high grade dysplasia Joseph's esophagus documented in this encounter Administered Medications Inactive Administered Medications - up to 3 most recent administrations Medication Order MAR Action Action Date Dose Rate Site lactated ringers infusion 100 mL/hr, Intravenous, CONTINUOUS, Starting on Mon10/18/22 at 1115, Until Mon10/18/22 at 1309, Endoscopy (Day of Procedure) Restarted 10/18/2022 12:04 PM EST New Bag 10/18/2022 11:05 AM EST 100 mL/hr 100 mL/hr documented in this encounter Active and Recently Administered Medications Times are shown in EST. Continuous Medication Order 10/16/2022 10/17/2022 10/18/2022 lactated ringers infusion (CANCELED) 100 mL/hr, Intravenous, CONTINUOUS, Starting on 10/18/22 at 1115, Until Mon10/18/22 at 1309, Endoscopy (Day of Procedure) 1105 (New Bag - Prov ider: Kareen Prater RN)1203 (Paused - Provider: Popeye Garrett CRNA - Comment: Switch to gravity)1204 (Restarted - Provider: Popeye Garrett CRNA)1221 (Stopped - Provider: Popeye Garrett CRNA) documented in this encounter Care Teams Wheat Cleaner Relationship Specialty Start Date End Date Lilibeth Phillips MD [address] [place] [address] PCP - General Family Medicine 09/21/22 11/20/22 documented as of this encounter
--- OUTSIDE RECORDS SUMMARY | 2024-09-14 13:03 | XMS_ITS | Encounter Summary ---
Author Organization [facility] Address [facility] [place] [address] Care Team Providers Care Breaker Off Name Role Phone Lilibeth Phillips MD Primary Care Provider [phone] Encounter Details Date Type Department Care Team (Late st Contact Info) Description 10/21/2022 Orders [place] [address] Andrew Berger MD [facility] [place] [address] Joseph's esophagus with high grade dysplasia (Primary Dx) Social History Tobacco Use Types Packs/Day Years [...] 11:30 AM EST Office Visit Dermatology at [facility] [address] [address] Jo Ordaz MD [facility] [place] [address] 12/13/2024 11:30 AM EST Appointment Pulmonology at [place] [phone] 12/13/2024 1:00 PM EST Office [place] [phone] Kiet Pardo MD [facility] [place] [address] Scheduled Orders Name Type Priority Associated Diagnoses Orde r Schedule ENDOSCOPY CASE REQUEST: EGD, UPPER GI ENDOSCOPY Procedures Routine Joseph's esophagus with high grade dysplasia Ordered: 10/21/2022 documented as of this encounter Visit Diagnoses Diagnosis Joseph's esophagus with high grade dysplasia- Primary Jospeh's esophagus documented in this encounter Care Teams Breaker Off Relationship Specialty Start Date End Date Lilibeth Phillips MD [address] [place] [address] PCP - General Family Medicine 09/21/22 11/20/22 documented as of this encounter
--- OUTSIDE RECORDS SUMMARY | 2024-09-14 13:03 | XMS_ITS | Encounter Summary ---
Author Organization Pending [facility] To [facility] Address [facility] [place] [address] Care Team Providers Care Patient Centered Care Specialist Name Role Phone Lilibeth Phillips MD Primary Care Provider [phone] Encounter Details Date Type Department Care Team (Late st Contact Info) Description 10/18/2022 12:03 PM EST Anesthesia Event [place] [address] Karin Palmer MD [facility] DR [place]ESI[place] [address] Anesthesia Record Procedure Summary Procedure Name Responsible Anesthesiologist Anesthesia Start Time Anesthesia Stop Time EGD WITH BIOPSY (WRVU 2.39) (Trunk) Karin Palmer MD 10/18/22 1203 10/18/22 1227 Events Date Time Event Comment 10/18/2022 1119 1203 AN Verify 1203 Start 1203 An Start Data 1206 An Induction 1206 Anesthesia Ready 1223 an stop data 1227 Recovery or ICU Handoff Lrori ent care was transferred to the destination unit staff after review of the patient's medical history, current anesthetic/surgical status and plan, according to the Provider Handoff Checklist. 1227 Stop Meds Name Total Midazolam 2 mg Propofol 270 mg lactated ringers infusion 800 mL * Agents Name O2 Air N2O O2 Auxiliary Flowmeter 1 * Blood No blood administrations on file. Lines, Drains, and Airways Type Details Placement Removal (RETIRED) Peripheral IV Line - Single Lumen 07/20/22; 0928; cephalic vein (lateral side of arm), right; dsfi-nzp-qbpmdr catheter system; Anatomical Landmarks; 22 gauge; BB; LDA not present upon assessment; 10/18/22; 1227 07/20/22 0928 by Sumit Bourgeois 10/18/22 1227 by Janine Vegas RN (RETIRED) Peripheral IV Line - Single Lumen 10/18/22; 1105; median cubital vein (antecubital fossa), right; bxrd-rub-elsull catheter system; 22 gauge; Felisa Woodward RN; no longer indicated, catheter/device intact; 10/18/22; 1309 10/18/22 1105 by Kareen Prater RN 10/18/22 1309 by Janine Vegas RN documented in this encounter Social History Tobacco [...] OR Notes * Anesthesia Postprocedure Evaluation - Karin Palmer MD - 10/18/2022 1:16 PM EST Department of Anesthesiology Post-procedure Note Patient: Amber Wells Procedure Summary Date: 10/18/22 Room / Location: [facility] ENDO 3 / [facility] ENDOSCOPY Anesthesia Start: 1203 Anesthesia Stop: 1227 Procedure: EGD WITH BIOPSY (WRVU 2.49) (Trunk) Diagnosis: Joseph's esophagus with high grade dysplasia (f/up Joseph's ablation) Surgeons: Andrew Berger MD Responsible Provider: Karin Palmre MD Anesthesia Type: MAC ASA Status: 3 All Anesthesia Providers: Anesthesiologist: Karin Palmer MD FAMILY MEDICINE CHAIR: Popeye Garrett CRNA; Kev Najera CRNA Vitals Value Taken Time BP 122/80 10/18/22 1240 Temp Pulse Resp 18 10/18/22 1245 SpO2 99 % 10/18/22 1245 Pain Level 0 10/18/22 1245 Patient Location: PACU/[facility] Level of Consciousness: Awake and Alert Pain Management: Satisfactory Analgesia PONV: None Cardiovascular Status: At Baseline and Hemodynamically Stable Respiratory Status: At Baseline and Room Air Postoperative Fluid Status: Intravascular EUvolemia Possible Anesthetic Complications: NONE apparent at time of evaluation Final Primary Anesthesia Type: MAC (The anesthetic type performed was the same as planned.) Comments: Karin Palmer MD * Anesthesia Preprocedure Evaluation - Karin Palmer MD - 10/18/2022 9:32 AM EST Pre-Anesthesia Evaluation for: Amber Wells a 62 y.o. female. Procedure(s): EGD, UPPER GI ENDOSCOPY Patient Active Problem List Diagnosis Date Noted ??? Lesion of skin of scalp 09/02/2020 ??? Joseph's esophagus 01/25/2019 ??? Raynaud's disease without gangrene 11/02/2017 ??? Swelling of extremity, right 10/12/2016 ??? Fecal incontinence 12/10/2015 ??? Altered bowel habits 11/03/2014 ??? 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 AK (actinic keratosis) 05/25/2013 ??? Solar lentigo 05/25/2013 ??? Multiple nevi 05/25/2013 ??? Anemia of chronic renal failure, stage 4 (severe) ??? GERD (gastroesophageal reflux disease) ??? CKD (chronic kidney disease) stage 4, GFR 15-29 ml/min 04/20/2010 ??? Scleroderma 11/20/1990 Past Medical History: Diagnosis Date ??? Anemia associated with chronic renal failure ??? Anemia in CKD (chronic kidney disease) ??? Anemia of chronic renal failure, stage 4 (severe) ??? Arthritis ??? Bowel disease Chronique constipation, Joseph syndrome eosophagus ??? Chronic kidney disease 2010 Dialysis AprilJun 2010, producing hemoglobin since Dec. ??? Chronic pain Left shoulder, middle back, fingers ??? CKD (chronic kidney disease) stage 4, GFR 15-29 ml/min 04/20/2010 ??? Desmoid fibromatosis 05/27/14 s/p re-excision of desmoid firbormatosis of the back ??? Gastroesophageal reflux I take 2 Nexium 40mg a day ??? Genetic syndrome Scleroderma, Raynaud's ??? High blood pressure It only happened once when my kidneys shut down in 2009 ??? Hypertension ??? Intraoperative complication It was at the end, not sure if it was general anestisic (colo) ??? Irregular heart beat Not the past year, it was few years ago ??? Kidney failure Failure 2009, dialysis for 2 months in 2009 ??? halfway current use of opiate analgesic Codeine -tylenols twice a year when ulcers on fingers ??? Motion sickness I cannot go to any rides at [employer] anymore ??? Neuromuscular disorder ??? Other disorder of muscle, ligament, and fascia 12/09/2014 ??? Post-operative nausea and vomiting But it was more because of the pain medicine ??? Raynaud phenomenon 04/08/2016 ??? Raynaud's syndrome 1990 ??? Scleroderma 1991 Diffuse scleroderma. Past Surgical History: Procedure Laterality Date ??? CREATED BY INTERFACE Entered not Verified Procedure Date: 01/27/2011 ??? CREATED BY INTERFACE No History of Operative Procedures Procedure Date: 01/27/2011 ??? DILATION AND CURETTAGE OF UTERUS ??? PRO APPLY FOREARM SPLINT, STATIC Left 04/08/2016 SPLINT APPLICATION, SHORT ARM performed by Andre Marroquin MD at [facility] MAIN OR ??? PRO COLONOSCOPY, DIAGNOSTIC N/A 01/31/2019 COLONOSCOPY, DIAGNOSTIC performed by Andrew Berger MD at [facility] ENDOSCOPY ? ? PRO EDG FLEXIBLE TRANSORAL ABLATE TUMOR POLYP/LESION W/DILATION & WIRE N/A 10/12/2021 EGD, TRANSORAL; WITH ABLATION OF TUMOR(S), POLYP(S), OR OTHER LESION(S) (WRVU 4.26) performed by Andrew Berger MD at [facility] ENDOSCOPY ? ? PRO EDG FLEXIBLE TRANSORAL ABLATE TUMOR POLYP/LESION W/DILATION & WIRE N/A 01/12/2022 EGD, TRANSORAL; WITH ABLATION OF TUMOR(S), POLYP(S), OR OTHER LESION(S) (WRVU 4.26) performed by Andrew Berger MD at [facility] ENDOSCOPY ??? PRO ENDOSCOPIC US EXAM, ESOPH N/A 03/29/2016 UPPER EUS- ENDOSCOPIC ULTRASOUND performed by Darryl Ash MD at [facility] ENDOSCOPY ??? PRO RAD RESECT/TUMOR, SOFT TISSUE BACK/FLANK, 5CM OR GREATER Right 06/22/2020 RADICAL RESECTION TUMOR BACK OR FLANK; 5 CM OR GREATER (WRVU 22.55) performed by Solomon Quiros MD at [facility] OSC ??? PRO REBL VES VEIN GRFT, UP EXTREM Left 04/08/2016 REPAIR BLOOD VESSEL WITH VEIN GRAFT, UPPER EXTREMITY performed by Andre Marroquin MD at [facility] MAIN OR ??? PRO UPPER GI ENDOSCOPY, BIOPSY N/A 03/29/2016 UPPER GASTROINTESTINAL ENDOSCOPY,WITH BIOPSY SINGLE OR MULTIPLE performed by Darryl Ash MD at [facility] ENDOSCOPY ??? PRO UPPER GI ENDOSCOPY, BIOPSY N/A 01/10/2018 EGD WITH BIOPSY (WRVU 2.49) performed by Andrew Berger MD at [facility] ENDOSCOPY ??? PRO UPPER GI ENDOSCOPY, BIOPSY N/A 08/23/2021 EGD WITH BIOPSY (WRVU 2.49) performed by Andrew Berger MD at [facility] ENDOSCOPY ??? PRO UPPER GI ENDOSCOPY, BIOPSY N/A 04/06/2022 EGD WITH BIOPSY (WRVU 2.49) performed by Andrew Berger MD at [facility] ENDOSCOPY ??? PRO UPPER GI ENDOSCOPY, DIAGNOSTIC N/A 08/23/2021 EGD, UPPER GI ENDOSCOPY performed by Andrew Berger MD at [facility] ENDOSCOPY ??? PRO VEIN BYPASS GRAFT, BRACHIAL ULNAR OR RADIAL Right 10/07/2016 @BYPASS GRAFT, BRACHIAL-ULNAR OR RADIAL W\VEIN (VASC) performed by Andre Marroquin MD at [facility] MAIN OR ??? 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 Smoking status: Former Packs/day: 1.00 Years: 10.00 Pack years: 10.00 Types: Cigarettes Quit date: 03/30/1988 Years since quittin.5 ??? Smokeless tobacco: Never ??? Tobacco comments: never vape Substance Use Topics ??? Alcohol use: Not Currently Comment: holidays Social History Substance and Sexual Activity Drug Use No Allergies Allergen Reactions ??? Other [Unclassified Drug] Lobster--weird sensation ??? Shellfish Derived Medications: MAR and/or home medications have been reviewed. Physical Exam: Preprocedure Vitals Current as of 10/18/22 0932 No BP, pulse, respiration, SpO2, or temperature recorded. Height: Weight: BMI: IBW: Airway Assessment: Mallampati: III TM distance: >3 FB Neck ROM: full Cardiovascular Assessment: Rhythm: regular Rate: normal Pulmonary Assessment: unlabored breathing Dental Assessment: - normal exam Misc Assessment: IV access: Peripheral line Last Filed Perioperative Cognitive Screening None Anesthesia Plan: ASA 3 MAC, Patient interviewed and examined. Hortensia Wells is a 62 y.o. patient who presents for upper endoscopy for Joseph's esophagus. PMH significant for: Scleroderma - sildenafil CKD4, on HD briefly several years ago HTN - amlodipine TTE 09/2021 Summary: 1. The left ventricular chamber size, wall thickness, and global left ventricular systolic function are normal with the quantitative left ventricular ejection fraction by biplane Benites's method of 67%. There are no left ventricular segmental wall motion abnormalities. Doppler assessment is consistent with normal left sided filling pressure. 2. The right ventricle is normal in size and function. The estimated pulmonary artery systolic pressure is 21 mmHg (assuming RA pressure 3 mm Hg). 3. The atria are mildly dilated. 4. There is no hemodynamically significant valvular disease present. 5. A trivial pericardial effusion is visualized. 6. There is mild dilatation of the ascending aorta (3.8 cm). 7. Please see the body of report for additional details. Appropriately NPO. No history of anesthetic complications or family history of major anesthetic complications. Exercise tolerance >4 METS. Denies chest pain. No recent respiratory infections, fevers. Plan for sedation with natural airway, GA as backup, standard ASA monitors, to endo SD post procedure. All patient questions answered and anesthesia consent obtained with discussion of indications, benefits, risks, and alternatives. Karin Palmer MD Attending Anesthesiologist Pager [phone] 10/18/22 11:19 AM Informed Consent: Anesthetic plan and risks discussed with patient. Plan discussed with FAMILY MEDICINE CHAIR and attending. Anesthesia Screening documented in this encounter Plan of Treatment Upcoming Encounters Date Type Department Care Team (Late st Contact Info) Description 10/07/2024 11:30 AM EST Office Visit Dermatology at [facility] [address] [place] [address] Jo Ordaz MD [facility] [place] [address] 12/13/2024 11:30 AM EST Appointment [place] [phone] 12/13/2024 1:00 PM EST Office Visit [place] [phone] Kiet Pardo MD [facility] [place] [address] documented as of this encounter Visit Diagnoses [...] 11:05 AM EST 100 mL/hr 100 mL/hr midazolam (pf) (Versed) (1 mg/mL) multi-dose injection Intravenous, PRN, Starting on Mon10/18/22 at 1203, Until Mon10/18/22 at 1227, Anesthesia Intra-op, Routine Given 10/18/2022 12:03 PM EST 2 mg propofoL (Diprivan) 10 mg/mL bolus injection (Anesthesia) Intravenous, PRN, Starting on Mon10/18/22 at 1206, Until 10/18/22 at 1227, Anesthesia Intra-op Given 10/18/2022 12:19 PM EST 20 mg Given 10/18/2022 12:16 PM EST 50 mg Given 10/18/2022 12:12 PM EST 100 mg documented in this encounter Care Teams Patient Centered Care Specialist Relationship Specialty Start Date End Date Lilibeth Phillips MD [address] [place] [address] PCP - General Family Medicine 09/21/22 11/20/22 documented as of this encounter
--- OUTSIDE RECORDS SUMMARY | 2024-09-14 13:03 | XMS_ITS | Encounter Summary ---
Author Organization Replaced By [facility] Address [facility] [place] [address] Care Team Providers Care Molding Plasterer Name Role Phone Lilibeth Phillips MD Primary Care Provider [phone] Encounter Details Date Type Department Care Team (Latest Contact Info) Description 10/18/2022 10:18 AM EST - 10/18/2022 1:20 PM EST Hospital Encounter [place] [address] Andrew Berger MD [facility] [place] [address] Discharge Disposition: Home Social History Tobacco Use [...] Sign Reading Time Taken Comments Blood Pressure 122/80 10/18/2022 12:40 PM EST Pulse 87 10/18/2022 10:57 AM EST Temperature 36.5 ??C (97.7 ??F) 10/18/2022 10:[address] Respiratory Rate 18 10/18/2022 12:45 PM EST Oxygen Saturation 99% 10/18/2022 12:45 PM EST Inhaled Oxygen Concentration - - [...] the day after the procedure, use an hfll-cuh-yzvxxyv spray to numb your throat. Sucking on [...] occurs, please contact your Doctor. Please call [phone] before 8pm Mon-Fri with problems, questions or concerns. If you call after 8pm or on weekends, call the Hospital at [phone] and ask to speak to the Live Study Manager quality control lab tech and the needle punch operator will contact that person for you. When should you call for help? Call [phone] anytime you think you may need emergency [...] any problems. Where can you learn more? [facility] View your After Visit Summary and more online at [email or web address] If you would like to [...] cost to you. Content Version: 12.2 ?? 2544-4153 [employer]. Care instructions adapted under license by [facility]. If you have questions about a medical condition or this instruction, always ask your healthcare professional. [employer] disclaims any warranty or liability for your use of this information. documented in this encounter Medications at Time of Discharge Medication Sig Dispensed Refills Start Date End Date hydrocortisone 2.5 % Ointment as needed. 04/25/2022 zoledronic ojzf-krykpppl-yuoyg (zoledronic Acid) 5 mg/100 mL infusion .every [...] of this encounter H&P Notes * Andrew Beregr MD - 10/18/2022 11:55 AM EST Gastroenterology [...] Operative Note Patient Name: Amber Wells : [id number] MR#: [id number] Case Date: 10/18/2022 Surgeon: Surgeon(s) and Role: * Andrew Berger MD - Primary Preoperative diagnosis: f/up Joseph's ablation Postoperative diagnosis: * No post-op diagnosis entered * Procedure(s) (LRB): EGD WITH BIOPSY (WRVU 2.49) (N/A) Anesthesia: MAC Full procedure note is documented under the Procedure section of eD. documented in this encounter Plan of Treatment Upcoming Encounters Date Type Department Care Team (Late st Contact Info) Description 10/07/2024 11:30 AM EST Office Visit Dermatology at [address] [address] Jo Ordaz MD [facility] [place] [address] 12/13/2024 11:30 AM EST Appointment [place] [address] 12/13/2024 1:00 PM EST Office [place] [address] Kiet Pardo MD [facility] [place] [address] documented as of this encounter Procedures Procedure Name Priority Date/Time Associated Diagnosis Comments SPECIMEN TO PATHOLOGY Routine 10/18/2022 12:23 PM EST SPECIMEN TO PATHOLOGY Routine 10/18/2022 12:23 PM EST SPECIMEN TO PATHOLOGY Routine 10/18/2022 12:23 PM EST SURGICAL PATHOLOGY REPORT Routine 10/18/2022 12:14 PM EST Upper Gi Endoscopy, Biopsy ([id number]) 10/18/2022 12:02 PM EST Joseph's esophagus with high grade dysplasia documented in this encounter Results * Specimen to Pathology (10/18/2022 12:23 PM EST) AP Specimen 10/18/2022 12:2 3 PM EST 10/18/2022 12:23 PM EST Narrative [facility] - 10/18/2022 12:23 PM EST Specimen requisition ordered. ??Separate Pathology report to follow Andrew Berger MD PATHOLOGY/CYTOLOGY O YVETTE Performing Organization Address City/[facility]/ZIP Co de Phone Number [facility] [place] [address] * Specimen to Pathology (10/18/2022 12:23 PM EST) AP Specimen 10/18/2022 12:2 3 PM EST 10/18/2022 12:23 PM EST Narrative [facility] - 10/18/2022 12:23 PM EST Specimen requisition ordered. ??Separate Pathology report to follow Andrew Berger MD PATHOLOGY/CYTOLOGY O RDERAJOSUE [facility] [place] [address] * Specimen to Pathology (10/18/2022 12:23 PM EST) AP Specimen 10/18/2022 12:2 3 PM EST 10/18/2022 12:23 PM EST Narrative [facility] - 10/18/2022 12:23 PM EST Specimen requisition ordered. ??Separate Pathology report to follow Andrew Berger MD PATHOLOGY/CYTOLOGY Patricia CRAWFORD [facility] [place] [address] * Surgical Pathology Report (10/18/2022 12:14 PM EST) Final Diagnosis [id number] ? Location: 4T; EA10; A The signing [...] within normal limits. Electronically signed by: ?Adri EHARD PhD, Josie Verified: ??10/21/2022 12:41 ??Pathologist Performed at: ??-[facility] Dept. of Pathology, [place] [id number] Lead Mason Tender: Danny Rowland MD, FCAP, ??CLIA Certificate: [id number] DISCUSSION A - ??The findings are compatible [...] labeled C1. ??sns 10/21/2022 12:41 PM EST [facility] GI Biopsy 10/18/2022 12:1 4 PM EST 10/18/2022 12:14 PM EST GI Biopsy 10/18/2022 12:1 4 PM EST 10/18/2022 12:14 PM EST GI Biopsy 10/18/2022 12:1 4 PM EST 10/18/2022 12:14 PM EST Andrew Berger MD PATHOLOGY/CYTOLOGY O RDERABLES [facility] [place] [address] documented in this encounter Visit Diagnoses Not on filedocumented in this encounter Administered Medications Inactive Administered Medications - up to 3 most recent administrations Medication Order MAR Action Action Date Dose Rate Site lactated ringers infusion 100 mL/hr, Intravenous, CONTINUOUS, Starting on 10/18/22 at 1115, Until 10/18/22 at 1309, Endoscopy (Day of Procedure) Restarted 10/18/2022 12:04 PM EST New Bag 10/18/2022 11:05 AM EST 100 mL/hr 100 mL/hr documented in this encounter Active and Recently Administered Medications Times are shown in EST. Continuous Medication Order 10/16/2022 10/17/2022 10/18/2022 lactated ringers infusion (CANCELED) 100 mL/hr, Intravenous, CONTINUOUS, Starting on 10/18/22 at 1115, Until 10/18/22 at 1309, Endoscopy (Day of Procedure) 1105 (New Bag - Prov ider: Kareen Prater RN)1203 (Paused - Provider: Popeye Garrett CRNA - Comment: Switch to gravity)1204 (Restarted - Provider: Popeye Garrett CRNA)1221 (Stopped - Provider: Popeye Garrett CRNA) documented in this encounter Care Teams Molding Plasterer Relationship Specialty Start Date End Date Lilibeth Phillips MD [address] [place] [address] PCP - General Family Medicine 09/21/22 11/20/22 documented as of this encounter
--- OUTSIDE RECORDS SUMMARY | 2024-09-14 13:03 | XMS_ITS | Encounter Summary ---
Author Organization [facility] [place] [address] Care Team Providers Care Heading Maker Name Role Phone None Primary Care Provider Unavailabl e Encounter Details Date Type Department Care Team (Late st Contact Info) Description 04/20/2023 10:15 AM EDT - 04/20/2023 10:45 AM EDT [place] [address] Andrew Berger MD [facility] [place] [address] EGD WITH BIOPSY (WRVU 2.39) Social History [...] Sign Reading Time Taken Comments Blood Pressure 113/73 04/20/2023 10:30 AM EDT Pulse 69 04/20/2023 9:44 AM EDT Temperature - - Respiratory Rate 16 04/20/2023 10:30 AM EDT Oxygen Saturation 100% 04/20/2023 10:30 AM EDT Inhaled Oxygen Concentration - - [...] the day after the procedure, use an iwzx-nrp-axirfgs spray to numb your throat. Sucking on [...] occurs, please contact your Doctor. Please call [phone] before 8pm Mon-Fri with problems, questions or concerns. If you call after 8pm or on weekends, call the Hospital at [phone] and ask to speak to the Granite Polisher Machine plate conditioner and the pin drafting machine operator will contact that person for you. When should you call for help? Call [phone] anytime you think you may need emergency [...] any problems. Where can you learn more? [facility] View your After Visit Summary and more online at [email or web address] If you would like to provide feedback about your hospital experience, please call the Office of Patient and Family Relations at . If you have received this After Visit Summary in error, please immediately return it in person to the department, or notify the [facility] Privacy Office by calling toll free at between the hours of 8AM and 5PM to arrange for our retrieval of the documents at no cost to you. Content Version: 12.2 ?? 2794-9002 [employer]. Care instructions adapted under license by [facility]. If you have questions about a medical condition or this instruction, always ask your healthcare professional. [employer] disclaims any warranty or liability for your use of this information. documented in this encounter Medications at Time of Discharge Medication Sig Dispensed Refills Start Date End Date fluticasone propionate (Flonase) 50 mcg/actuation [place], Suspension Twice a day 02/20/2023 hydrocortisone 2.5 % Ointment as needed. 04/25/2022 zoledronic npev-ixmatgnf-lnvhg (zoledronic Acid) 5 mg/100 mL infusion .every [...] 11:30 AM EST Office Visit Dermatology at [address] [address] Jo Ordaz MD [facility] [place] [address] 12/13/2024 11:30 AM EST [place] [address] 12/13/2024 1:00 PM EST [place] [address] Kiet Pardo MD [facility] [place] [address] documented as of this encounter Procedures Procedure Name Priority Date/Time Associated Diagnosis Comments SURGICAL PATHOLOGY REPORT Routine 04/20/2023 10:23 AM EDT SPECIMEN TO PATHOLOGY Routine 04/20/2023 10:23 AM EDT SPECIMEN TO PATHOLOGY Routine 04/20/2023 10:23 AM EDT Upper Gi Endoscopy, Biopsy ([id number]) 04/20/2023 10:08 AM EDT Joseph's esophagus with high grade dysplasia UPPER GI ENDOSCOPY Routine 04/20/2023 9: 48 AM EDT documented in this encounter Results * Surgical Pathology Report (04/20/2023 10:23 AM EDT) Final Diagnosis [id number] ? Location: 4T; [facility]; A The signing pathologist has (i) [...] mucosa within reactive change. Electronically signed by: ?Florian HEARD, Claire Verified: ??04/28/2023 19:44 ??Pathologist Performed at: ??-[facility] Dept. of Pathology, [place] [address] Boiler House Mechanic: Danny Rowland MD, FCAP, ??CLIA Certificate: [id number] SPECIMEN(S) SUBMITTED A - GE junction @ [...] labeled B1. ??jnr 04/28/2023 7:44 PM EDT [facility] GI Biopsy 04/20/2023 10:2 3 AM EDT 04/20/2023 10:23 AM EDT GI Biopsy 04/20/2023 10:2 3 AM EDT 04/20/2023 10:23 AM EDT Andrew Berger MD PATHOLOGY/CYTOLOGY O YVETTE Performing Organization Address [facility]/ZIP Co de Phone Number [facility] [address] [place] [address] * Specimen to Pathology (04/20/2023 10:23 AM EDT) AP Specimen 04/20/2023 10:2 3 AM EDT 04/20/2023 10:23 AM EDT Narrative [facility] - 04/20/2023 10:23 AM EDT Specimen requisition ordered. ??Separate Pathology report to follow Andrew Berger MD PATHOLOGY/CYTOLOGY O YVETTE [facility] [place] [address] * Specimen to Pathology (04/20/2023 10:23 AM EDT) AP Specimen 04/20/2023 10:2 3 AM EDT 04/20/2023 10:23 AM EDT Narrative [facility] - 04/20/2023 10:23 AM EDT Specimen requisition ordered. ??Separate Pathology report to follow Andrew Berger MD PATHOLOGY/CYTOLOGY Patricia CRAWFORD [facility] [address] * UPPER GI ENDOSCOPY (04/20/2023 9:48 AM EDT) UPPER GI ENDOSCOPY [facility] Endoscopy Procedure Date: 04/20/2023 9:48 AM ? Patient Name: Amber Wells ? N: [id number] ? Date of : 1960 ? Age: 62 ? Order #: [id number] ? Instrument Name: [id number] ? Procedure: ? Upper GI endoscopy Indications: ? Joseph's high grade dysplasia, ? Follow-up of previous ? radiofrequency ablation treatment ? of Joseph's esophagus Providers: ? Andrwe Berger MD, Shazia Fields ? Soto, [place], Davin Molina MD: ?None, [...] were ? examined with white light and Fujifilm Blue Light ? Imaging from a forward [...] Procedure Code(s): ? --- Professional --- ? 23988, Esophagogastroduoden oscopy, ? flexible, transoral; with biopsy, [...] than ? malignant neoplasm CPT copyright 2020 [employer]. All rights reserved. The codes documented in this report are preliminary and upon chief engineer research review may be revised to meet current compliance requirements. Attending Participation: ? I was present and participated during the entire ? procedure, including non-cardenas portions. ? Andrew Berger MD 04/20/2023 2:36:40 PM Number of Addenda: 0 Note Initiated On: 04/20/2023 9:48 AM PROVATION 04/20/2023 9:48 AM EDT None GENERAL SURGICAL ORD ERABLES PROVATION documented in this encounter Visit Diagnoses Diagnosis [...] RN) documented in this encounter Care Teams Heading Maker Relationship Specialty Start Date End Date None None PCP - General 04/19/23 04/30/23 documented as of this encounter
--- OUTSIDE RECORDS SUMMARY | 2024-09-14 13:03 | XMS_ITS | Encounter Summary ---
Author Organization [facility] Address [facility] [place] [address] Care Team Providers Care Die Cut Operator Name Role Phone Lilibeth Phillips MD Primary Care Provider [phone] Encounter Details Date Type Department Care Team (Late Contact Info) Description 11/02/2022 Orders [place] [address] Kiet Pardo MD [facility] [address] Social History Tobacco Use Types Packs/Day Years [...] Visit Dermatology at [facility] [address] [place] [address] Jo Ordaz MD [facility] [place] [address] 12/13/2024 11:30 AM EST Appointment Pulmonology at [place] [phone] 12/13/2024 1:00 PM EST Office [place] [phone] Kiet Pardo MD [facility] [place] [address] documented as of this encounter Visit Diagnoses Not on filedocumented in this encounter Care Teams Die Cut Operator Relationship Specialty Start Date End Date Lilibeth Phillips MD [address] [place] [address] PCP - General Family Medicine 09/21/22 11/20/22 documented as of this encounter
--- OUTSIDE RECORDS SUMMARY | 2024-09-14 13:03 | XMS_ITS | Encounter Summary ---
Author Organization [facility] [place] [address] Care Team Providers Care Degreasing Solution Mixer Name Role Phone Unavailable Primary Care Provider Unavailabl e Reason for Referral * High Dollar Medication (Routine) - Closed Specialty Diagnoses / Procedures Referred By Contac t Referred To Contact Plastic Surgery Diagnoses Raynaud's disease without gangrene Procedures Onabotulinumtoxin A (BOTOX) Authorizations Request (IN CLINIC) Andre Marroquin MD [facility] [place] [address] [facility] Plastic Surg [address] [place] [address] Referral ID Status Reason Start Date Expiration Date V isits Requested Visits Authorized [id number] Closed Consult, Test & Treat 09/14/2022 09/14/2023 1 1 Reason for Visit * High Dollar Medication (Routine) - Closed Specialty Diagnoses / Procedures Referred By Contac t Referred To Contact Plastic Surgery Diagnoses Raynaud's disease without gangrene Procedures Onabotulinumtoxin A (BOTOX) Authorizations Request (IN CLINIC) TC ONABOTULINUMTOXINA, 1 UNIT, INJECTION Andre Marroquin MD [facility] [place] [address] [facility] Plastic Surg [address] [place] [address] [place] [address] Referral ID Status Reason Start Date Expiration Date V isits Requested Visits Authorized [id number] Closed Consult, Test & Treat 09/06/2022 09/06/2023 4 4 Encounter Details Date Type Department Care Team (Late st Contact Info) Description 09/14/2022 11:45 AM EDT Office Visit Plastic Surgery at [address] [place] [address] Andre Marroquin MD [facility] [place] [address] Raynaud's disease without gangrene Social History Tobacco [...] as of this encounter Progress Notes * Sophie Engle H - 09/14/2022 11:45 AM EDT Plastic Surgery Follow Up Note Reason for visit: F/U status post procedure Date of surgery: 10/07/16 Procedure(s): Ulnar artery transfer into cephalic vein Complications: None reported HPI: Amber Wells returns today in f/u to proceed with additional botox injections to both of her hands due to vasospasm and Raynauds now worse in the Winter. Examination: Patient is alert, conversant, comfortable, ambulating Hands: stable tight fibrotic skin, no ulcers today, fingertips with 2-3 sec CR. Scatted mottling of the skin c/w Raynauds with some skin in blue and pale phases. Right thumb with small scabbed area, no open wounds or sign of infection Procedures: Patient arrived with EMMLA cream already applied. Alcohol and lidocaine gel skin prep 100 u of botox injected as follows: Botox: 10u in region of common digital artery at thumb, radial index, 2nd web, 3rd web, 4th web, or 50U per hand. ??Both hands treated for a total of 100 Units. Lot [id number] Expiration date: 08/2023 Impression: Amber Wells is a 62 y.o. 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 Will proceed with botox injections to both hands. Plan: Proceed with botox injection. Patient is hoping to proceed with treatment every 6 months. Need to check prior auth I, Sophie Engle, have performed the documentation for this encounter in the presence of and acting as a scribe for Andre Marroquin MD. documented in this encounter Procedure Notes * Andre Marroquin MD - 09/14/2022 11:45 AM EDTAssociated Order(s): CHEMODENERVATION, COSMETIC Procedure(s): BOTOX DESTRUCTION PROCEDURE PRFM Pre-Procedure Diagnose(s): Raynaud's disease without gangrene 10u in region of common digital artery at thumb, radial index, 2nd web, 3rd web, 4th web, or 50U per hand. ??Both hands treated for a total of 100 Units. documented in this encounter Plan of Treatment Upcoming Encounters Date Type Department Care Team (Late st Contact Info) Description 10/07/2024 11:30 AM EST Office Visit Dermatology at [place] [address] [place] [address] Jo Ordaz MD [facility] [place] [address] 12/13/2024 11:30 AM EST Appointment [place] [address] 12/13/2024 1:00 PM EST Office [place] [address] Kiet Pardo MD [facility] [place] [address] documented as of this encounter Procedures Procedure Name Priority Date/Time Associated Diagnosis Comments BOTOX DESTRUCTION PROCEDURE PRFM Routine 09/14/2022 11:45 AM EDT Raynaud's disease without gangrene documented in this encounter Results * BOTOX DESTRUCTION PROCEDURE PRFM (09/14/2022 11:45 AM EDT) Narrative Andre Marroquin MD - 09/14/2022 11:45 AM EDT Andre Marroquin MD ? 09/14/2022 12:55 PM 10u in region of common digital artery at thumb, radial index, 2nd web, 3rd web, 4th web, or 50U per hand. ??Both hands treated for a total of 100 Units. Andre Marroquin MD DERM PROCEDURE MIAH GUAMAN documented in this encounter Visit Diagnoses Diagnosis Raynaud's disease without gangrene documented in this encounter
--- OUTSIDE RECORDS SUMMARY | 2024-09-14 13:03 | XMS_ITS | Encounter Summary ---
Author Organization [facility] [place] [address] Care Team Providers Care Director Process Improvement Name Role Phone Unavailable Primary Care Provider Unavailabl e Encounter Details Date Type Department Care Team (Latest Contact Info) Description 12/09/2022 Travel Social History Tobacco Use Types Packs/Day [...] 11:30 AM EST Office Visit Dermatology at [address] [address] Jo Ordaz MD [facility] [place] [address] 12/13/2024 11:30 AM EST Appoint[place] [address] 12/13/2024 1:00 PM EST [place] [address] Kiet Pardo MD [facility] [place] [address] documented as of this encounter Visit Diagnoses Not on filedocumented in this encounter
--- OUTSIDE RECORDS SUMMARY | 2024-09-14 13:03 | XMS_ITS | Encounter Summary ---
Author Organization [facility] [place] [address] Care Team Providers Care Supervisor Publications Name Role Phone None Primary Care Provider Unavailabl e Encounter Details Date Type Department Care Team (Latest Contact Info) Description 03/15/2023 Travel Social History Tobacco Use Types Packs/Day [...] 11:30 AM EST Office Visit Dermatology at [address] [address] Jo Ordaz MD [facility] [place] [address] 12/13/2024 11:30 AM EST Appointment [place] [address] 12/13/2024 1:00 PM EST Office [place] [address] Kiet Pardo MD [facility] [place] [address] documented as of this encounter Visit Diagnoses Not on filedocumented in this encounter Care Teams Supervisor Publications Relationship Specialty Start Date End Date None None PCP - General 03/15/23 04/18/23 documented as of this encounter
--- OUTSIDE RECORDS SUMMARY | 2024-09-14 13:03 | XMS_ITS | Encounter Summary ---
[place] [address] Care Team Providers Care Diabetes Physician Name Role Phone Armand Danya Dinora NOVOA Primary Care Provider [phone] Encounter Details Date Type Department Care Team (Late st Contact Info) Description 07/26/2022 Telephone [place] [phone] Janie Almanza Social History Tobacco Use Types Packs/Day Years [...] encounter Miscellaneous Notes * Telephone Encounter - Janie Almanza - 07/26/2022 8:05 AM EDT Placed outgoing phone call to patient in order to schedule a procedure. Phone Call Outcome: No Answer. This was the 1st attempt If the call is returned, it can be handled by: [facility] Stock Car Driver documented in this encounter Plan of Treatment Upcoming Encounters Date Type Department Care Team (Late st Contact Info) Description 10/07/2024 11:30 AM EST Office Visit Dermatology at [address] [place] [address] Jo Ordaz MD [facility] [place] [address] 12/13/2024 11:30 AM EST Appointment [place] [address] 12/13/2024 1:00 PM EST Office [place] [address] Kiet Pardo MD [facility] [place] [address] documented as of this encounter Visit Diagnoses Not on filedocumented in this encounter Care Teams Diabetes Physician Relationship Specialty Start Date End Date Danya Acuna, BRIGHT [address] [place] [address] PCP - General Family Medicine 02/19/21 08/12/22 documented as of this encounter
--- OUTSIDE RECORDS SUMMARY | 2024-09-14 13:03 | XMS_ITS | Encounter Summary ---
Author Organization Formerly [facility], 1928–1983 Address [facility] [place] [address] Care Team Providers Care Clinical Educator Name Role Phone None Primary Care Provider Unavailabl e Reason for Visit * Reason Comments Follow-up Botox today for Rayn aud's * High Dollar Medication (Routine) - Closed Specialty Diagnoses / Procedures Referred By Wander hernandez Referred To Contact Plastic Surgery Diagnoses Raynaud's disease without gangrene Procedures Onabotulinumtoxin A (BOTOX) Authorizations Request (IN CLINIC) TC ONABOTULINUMTOXINA, 1 UNIT, INJECTION Andre Marroquin MD [facility] [place] [address] [facility] [address] [place] [address] Referral ID Status Reason Start Date Expiration Date V isits Requested Visits Authorized [id number] Closed Consult, Test & Treat 09/06/2022 09/06/2023 4 4 Encounter Details Date Type Department Care Team (Late st Contact Info) Description 03/15/2023 11:30 AM EDT Office Visit Plastic Surgery at [facility] [address] [place] [address] Andre Marroquin MD [facility] [place] [address] Raynaud's disease without gangrene Social [...] as of this encounter Progress Notes * Andre Marroquin MD - 03/15/2023 11:30 AM EDT Plastic Surgery Follow Up Note Provider: Andre Marroquin MD Reason for visit: F/U status post procedure Date of surgery: 10/07/16 Procedure(s): Ulnar artery transfer into cephalic vein Complications: None reported HPI: Amber Wells returns today in f/u to proceed with additional botox injections to both of her hands due to vasospasm and Raynauds now worse in the Winter. Patient has an infection of her right thumb at the nailbed. She is currently taking antibiotics. Patient feels that the previous Botox injections were helpful for her vasospasms and she would like to proceed with further injections today. Examination: Patient is alert, conversant, comfortable, ambulating Hands: stable tight fibrotic skin, subungual ulcers today R thumb, fingertips with 2-3 sec CR. Procedures: Alcohol and lidocaine gel skin prep 100 u of botox injected as follows: Botox: 10u in region of common digital artery at thumb, radial index, 2nd web, 3rd web, 4th web, or 50U per hand. ??Both hands treated for a total of 100 Units. Lot [id number] Expiration date: 02/2025 Impression: Amber Wells is a 62 y.o. 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 Will proceed with botox injections to both hands. Plan: Proceed with botox injection. Patient is hoping to proceed with treatment every 6 months. Need to check prior authorization Mae, Kalli Benson, have performed the documentation for this encounter in the presence of and acting as a scribe for Andre Marroquin MD. 1. Raynaud's disease without gangrene [I73.00] Procedures 1. BOTOX DESTRUCTION PROCEDURE PRFM [[id number]] 10u in region of common digital artery at thumb, radial index, 2nd web, 3rd web, 4th web, or 50U per hand. ??Both hands treated for a total of 100 Units. documented in this encounter Plan of Treatment Upcoming Encounters Date Type Department Care Team (Late st Contact Info) Description 10/07/2024 11:30 AM EST Office Visit Dermatology at [facility] [address] [place] [address] Jo Oradz MD [facility] [place] [address] 12/13/2024 11:30 AM EST Appointment [place] [address] 12/13/2024 1:00 PM EST Office [place] [phone] Kiet Pardo MD [facility] [place] [address] documented as of this encounter Visit Diagnoses Diagnosis Raynaud's disease without gangrene documented in this encounter Care Teams Clinical Educator Relationship Specialty Start Date End Date None None PCP - General 03/15/23 04/18/23 documented as of this encounter
--- OUTSIDE RECORDS SUMMARY | 2024-09-14 13:03 | XMS_ITS | Encounter Summary ---
Author Organization Formerly [facility] [place] [address] Care Team Providers Care Pipe Testing Technician Name Role Phone None Primary Care Provider Unavailabl e Encounter Details Date Type Department Care Team (Latest Contact Info) Description 04/24/2023 Travel Social History Tobacco Use Types Packs/Day [...] 11:30 AM EST Office Visit Dermatology at [address] [address] Jo Ordaz MD [facility] [place] [address] 12/13/2024 11:30 AM EST [place] [address] 12/13/2024 1:00 PM EST Office [place] [address] Kiet Pardo MD [facility] [place] [place] [address] documented as of this encounter Visit Diagnoses Not on filedocumented in this encounter Care Teams Pipe Testing Technician Relationship Specialty Start Date End Date None None PCP - General 04/19/23 04/30/23 documented as of this encounter
--- OUTSIDE RECORDS SUMMARY | 2024-09-14 13:03 | XMS_ITS | Encounter Summary ---
Author Organization [facility] [place] [address] Care Team Providers Care Pulp Plant Supervisor Name Role Phone Unavailable Primary Care Provider Unavailabl e Reason for Visit * Reason Comments Medication Refill Encounter Details Date Type Department Care Team (Late Contact Info) Description 09/15/2022 [place] [address] Kiet Pardo MD [facility] [address] Scleroderma; CKD (chronic kidney disease) stage 3, [...] EST Office Visit Dermatology at [facility] [address] [address] Jo Ordaz MD [facility] [place] [address] 12/13/2024 11:30 AM EST Appointment Pulmonology at [place] [phone] 12/13/2024 1:00 PM EST Office Visit Rheumatology at [place] [phone] Kiet Pardo MD [facility] [place] [address] documented as of this encounter Visit Diagnoses Diagnosis Scleroderma Systemic sclerosis CKD (chronic kidney disease) stage 3, GFR 30-59 ml/min Chronic kidney disease, Stage III (moderate) documented in this encounter
--- OUTSIDE RECORDS SUMMARY | 2024-09-14 13:03 | XMS_ITS | Encounter Summary ---
Author Organization [facility] Address [facility] [place] [address] Care Team Providers Care Golf Ball Trimmer Name Role Phone Unavailable Primary Care Provider Unavailabl e Encounter Details Date Type Department Care Team (Late st Contact Info) Description 09/14/2022 10:45 AM EDT Office Visit Dermatology at [facility] [address] [place] [address] Fuad Ordaz MD [facility] [place] [address] AK (actinic keratosis); Calcinosis cutis; Scleroderma Social History Tobacco Use Types Packs/Day [...] PM EDT documented as of this encounter Patient Instructions * Patient Instructions* Emely Nails LPN - 09/14/2022 10:45 AM EDT Actinic Keratoses You have been diagnosed today with Actinic Keratosis (AK). These dry, scaly patches are considered the earliest stage in the development of skin cancer. In rare cases, an AK can progress to skin cancer. Because of this risk, AKs are usually treated. You were treated today with Liquid Nitrogen. This is the most common treatment for AKs. Liquid nitrogen is extremely cold, and freezes the surface of the skin, causing the lesion to flake off. Treatment with liquid nitrogen can be uncomfortable, but discomfort should subside after a couple of hours. The area treated will look red and irritated, and it may blister up or turn dark, then fall off. This is normal! You do not need any special treatment for the area, but you may find cold compresses and/or a lightapplication of Vaseline soothing. For best results, do not rub or pick at the healing lesion. Expected healing time is 3-4 weeks. Please contact the Dermatology clinic if the lesion has not fully resolved after 6 weeks. documented in this encounter Progress Notes * Fuad Ordaz MD - 09/14/2022 10:45 AM EDT Images from the original note were not included. DEPARTMENT OF DERMATOLOGY Medical Dermatology Clinic Provider: FUAD ORDAZ MD Patient's preferred name Amber Preferred contact method for results [x]?Phone [x]?myD-H []?Letter Detailed phone message OK? Yes Are there any other people with whom we may discuss your care? Yes - , Mike ?? Past Medical History Date, location, treatment Melanoma No Dysplastic nevi No SCC No BCC Yes - 05/29/19: Left chest, sBCC (ED&C) AKs Yes - LN2 UV Exposure & Protection ?? Other relevant past medical history Scleroderma, Raynaud's phenomenon ?? 04/17/14: Back, myofibroblastic spindle cell tumor (excision) 05/06/14: Back, desmoid-type fibromatosis (resection, excision) 04/20/16: Left anterior thigh, SK 11/02/17: Left extensor forearm, calcinosis cutis 05/22/2020: Right infrascapular back, desmoid tumor (excised by gen surg 06/2020) Family History Details Melanoma Yes - sister NMSC No Other relevant family history No Social History Occupation: Not employed Hobbies: Other: ?? Pre-Procedure Screening Details Allergy to lidocaine, epinephrine, Dermabond, chlorhexidine, or adhesives No Bleeding disorder or blood thinners No Implanted devices (Pacemaker, defibrillator, deep brain stimulator, cochlear implant) No ?? History of Present Illness: Amber Wells is a 62 y.o. Patient returns to clinic today for a FSE. - Patient reports chronic spot on her right ear has not resolved since last visit. Patient reports this is occasionally tender, denies any bleeding. - Regrowth of spot on left extensor forearm - Spots scattered on abdomen Last visit at Dermatology: 01/18/2022 Last visit with this provider: 06/17/2021 Medications: Reviewed in eD-H Allergies: Reviewed in [...] and buttocks were not examined. Assessment/Plan #. Actinic Keratoses - Ill-defined, gritty papules on the right forehead x 1, nose x 1, chest x 1. - Explained premalignant potential of these lesions. - Discussed treatment with cryotherapy; patient elected to proceed. - Instructed patient to return to clinic for re-evaluation if lesions does not resolve with this treatment. Procedure: Destruction of lesions with cryotherapy (LN2). Locations: As noted above. Number: 3 Discussed procedure and expectations, including risks (especially hypopigmentation) and benefits. Verbal consent obtained. Frozen with LN2, 15-30 second thaw time, twice. There were no complications;patient tolerated the procedure well. Post-procedure expectations and wound care reviewed. #. Biopsy proven Calcinosis Cutis - left extensor forearm x 1, right ear, scattered on abdomen, firm, white subcutaneous nodules. - Discussed the removal of these lesions would require excision. - Combined decision to watch and wait at this time. #. Digital Ulcer on the right thumb tip #. Scleroderma - [id number] skin of scleroderma on the trunk and extremities; punctate hyperkeratotic erosions on the distal fingertips;??sclerodactyly; telangiectasias - Systemic disease managed by Rheumatology. Other: ??? N/A RTC: 6 months for Scleroderma/FSE []Note routed to high wire artist []Recall placed in scheduling system [x]Appointment scheduled at checkout Scribe attestation: Emely Nails LPN has performed the documentation for this encounter in the presence of and acting as a scribe for FUAD ORDAZ MD. I performed the above scribed service and agree with the accuracy of the documentation in this encounter. Reviewed and signed by: FUAD ORDAZ MD Dermatology [facility] documented in this encounter Plan of Treatment Upcoming Encounters Date Type Department Care Team (Late st Contact Info) Description 10/07/2024 11:30 AM EST Office Visit Dermatology at [address] [address] Fuad Ordaz MD [facility] [place] [address] 12/13/2024 11:30 AM EST Appointment [place] [address] 12/13/2024 1:00 PM EST Office [place] [address] Kiet Pardo MD [facility] [place] [address] documented as of this encounter Visit Diagnoses Diagnosis AK (actinic keratosis) Actinic keratosis Calcinosis cutis Degenerative skin disorder Scleroderma Systemic sclerosis documented in this encounter
--- OUTSIDE RECORDS SUMMARY | 2024-09-14 13:03 | XMS_ITS | Encounter Summary ---
Author Organization [facility] [place] [address] Care Team Providers Care Tooling Supervisor Name Role Phone Unavailable Primary Care Provider Unavailabl e Encounter Details Date Type Department Care Team (Latest Contact Info) Description 12/16/2022 1:00 PM EST Laboratory Appointment Lab [address] [place] [phone] Medication monitoring encounter Social History Tobacco Use Types Packs/Day [...] 11:30 AM EST Office Visit Dermatology at [place] [address] [place] [address] Jo Ordaz MD [facility] [place] [address] 12/13/2024 11:30 AM EST Appointment [place] [address] 12/13/2024 1:00 PM EST Office [place] [address] Kiet Pardo MD [facility] [place] [address] [place] [address] documented as of this encounter Procedures Procedure Name Priority Date/Time Associated Diagnosis Comments CREATININE STAT 12/16/2022 12:21 PM EST Medication monitoring encounter HC UREA NITROGEN, SERUM STAT 12/16/2022 12:21 PM EST Medication monitoring encounter HC CALCIUM, SERUM STAT 12/16/2022 12: 21 PM EST Medication monitoring encounter documented in this encounter Results * Calcium (12/16/2022 12:21 PM EST) Calcium 9.7 8.5 - 10.5 mg/dL [facility] Blood 12/16/2022 12:2 1 PM EST 12/16/2022 12:32 PM EST Narrative Resulting Agency Comment Spec In Lab Kev Lind MD CHEMISTRY ORDERABLES Performing Organization Address [facility] Co de Phone Number [facility] [place] [address] * BUN (12/16/2022 12:21 PM EST) Blood Urea Nitrogen 18 8 - 18 mg/dL [facility] Blood 12/16/2022 12:2 1 PM EST 12/16/2022 12:32 PM EST Narrative Resulting Agency Comment Spec In Lab Kev Lind MD CHEMISTRY ORDERABLES Performing Organization Address [facility] Co de Phone Number [facility] [place] [address] * (ABNORMAL) Creatinine (12/16/2022 12:21 PM EST) Creatinine 1.14 0.70 - 1.20 mg/dL [facility] Est Glomerular Filtration Rate 55(L) >=60 mL/min/1. 73 m?? [facility] Comment: This patient's estimated GFR was [...] and symptoms in addition to eGFR. Blood 12/16/2022 12:2 1 PM EST 12/16/2022 12:32 PM EST Narrative Resulting Agency Comment Spec In Lab Kev Lind MD CHEMISTRY ORDERABLES Performing Organization Address City/State/[facility] Co de Phone Number [facility] [place] [address] documented in this encounter Visit Diagnoses Diagnosis Medication monitoring encounter Encounter for therapeutic drug monitoring documented in this encounter
--- OUTSIDE RECORDS SUMMARY | 2024-09-14 13:03 | XMS_ITS | Encounter Summary ---
[place] [address] Care Team Providers Care Hand Cementer Name Role Phone Unavailable Primary Care Provider Unavailabl e Encounter Details Date Type Department Care Team (Late st Contact Info) Description 02/13/2023 Telephone [place] [phone] Marquita Cam Social History Tobacco Use Types [...] * Telephone Encounter - Marquita Cam - 02/13/2023 3:20 PM EDT Called patient to schedule a follow up appointment with CKD clinic. Offered February 28, pt declined wont be in the area. doesn't have a clinic in March, pt would like to wait until April documented in this encounter Plan of Treatment Upcoming Encounters Date Type Department Care Team (Late st Contact Info) Description 10/07/2024 11:30 AM EST Office Visit Dermatology at [facility] [address] [place] [address] Jo Ordaz MD [facility] [place] [address] 12/13/2024 11:30 AM EST Appointment [place] [phone] 12/13/2024 1:00 PM EST Office [place] [phone] Kiet Pardo MD [facility] [place] [address] documented as of this encounter Visit Diagnoses Not on filedocumented in this encounter
--- OUTSIDE RECORDS SUMMARY | 2024-09-14 13:03 | XMS_ITS | Encounter Summary ---
Author Organization [facility] [place] [address] Care Team Providers Care Hat And Cap Parts Cutter Hand Name Role Phone Unavailable Primary Care Provider Unavailabl e Encounter Details Date Type Department Care Team (Late st Contact Info) Description 12/16/2022 2:00 PM EST Office [place] [address] Kiet Pardo MD [facility] [place] [address] Scleroderma; Other osteoporosis, unspecified pathological fracture presence Social History Tobacco Use Types Packs/Day Years [...] Sign Reading Time Taken Comments Blood Pressure 127/70 12/16/2022 1:46 PM EST Pulse 84 12/16/2022 1:46 PM EST Temperature 36.1 ??C (96.9 ??F) 12/16/2022 1:46 PM ES T Respiratory Rate 16 12/16/2022 1:46 PM EST Oxygen Saturation 99% 12/16/2022 1:46 PM EST Inhaled Oxygen Concentration - - Weight 64.9 kg (143 lb) 12/16/2022 1:46 PM EST Height 170.2 cm (5' 7.01) 12/16/2022 1:46 PM ES T Body Mass Index 22.39 12/16/2022 1:46 PM EST documented in this encounter Patient Instructions * Patient Instructions* Kiet Pardo MD - 12/16/2022 2:00 PM EST Iloprost for severe Raynaud's documented in this encounter Progress Notes * Kiet Pardo MD - 12/16/2022 2:00 PM EST This is a return rheumatology visit for Ms. Cuevas with longstanding diffuse scleroderma complicated in the past by renal crisis with subsequent stage III CKD.. ?? Since her last encounter approximately 12 months ago Ms. Cuevas reports that she has continued with Botox injections the last being in September 2022. She subsequently developed an ulcer at the nail of the right thumb and then at the left middle finger. The entire thumb swelled and became red and this is now resolved after a 10-day course of Keflex. She did have an iron infusion in [place] in October and this helped significantly with fatigue and energy. She is scheduled for Reclast infusion next week. She has ongoing trouble with gastrointestinal symptoms largely incomplete evacuation and frequent small stools. This has been unchanged for years. 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 Medications were reviewed: Current Outpatient Medications on File Prior to Visit Medication Sig Dispense Refill ??? cephALEXin (Keflex) 500 mg Capsule Take 1 capsule by mouth 4 times daily. 40 capsule 0 ??? fosinopriL (MONOPRIL) 20 mg Tablet Take 1 tablet by mouth daily. 90 tablet 3 ??? sildenafiL (Revatio) 20 mg Tablet TAKE TWO TABLETS BY MOUTH EVERY MORNING, TAKE ONE TABLET BY MOUTH IN THE AFTERNOON AND TAKE TWO TABLETS BY MOUTH EVERY EVENING 150 tablet 5 ??? esomeprazole (NexIUM) 40 mg Capsule, Delayed Release(E.C.) TAKE 1 CAPSULE BY MOUTH 2 TIMES DAILY 180 capsule 3 ??? amLODIPine (Norvasc) 5 mg Tablet TAKE 1 TABLET BY MOUTH DAILY 90 tablet 3 ??? lidocaine-prilocaine (EMLA) Cream APPLY EXTERNALLY TO THE AFFECTED AREA NEEDED 30 g 2 ??? acetaminophen-codeine (Tylenol #3) 300-30 mg Tablet Take 2 tablets by mouth every 6 hours as needed for Pain. Reported on 03/29/2017 (Patient not taking: No sig reported) 60 tablet 0 ??? Ibuprofen 200 mg Capsule Take by mouth. ??? silver sulfADIAZINE (Silvadene) 1 % Cream Apply topically daily. (Patient not taking: No sig reported) 50 g 0 ??? polyethylene glycoL (Miralax) 17 gram/dose Powder Take 17 g by mouth daily. ??? psyllium husk (METAMUCIL ORAL) Take by mouth daily. ??? fish oil-omega-3 fatty acids 1,000 mg Capsule Take 1,000 mg by mouth daily. ??? calcium citrate (Calcitrate) 200 mg (950 mg) Tablet Take 1,200 mg by mouth daily. ??? glycerin, adult, Suppository daily as needed. 0 ??? acetaminophen (TYLENOL) 500 mg Tablet Take 2 tablets by mouth every 8 hours as needed for Pain.30 tablet 1 ??? loperamide (IMMODIUM) 2 mg Capsule Take 2 mg by mouth 4 times daily as needed for Diarrhea. ??? vitamin E 400 unit Capsule Take 400 Units by mouth daily. ??? cholecalciferol, Vitamin D3, 25 mcg (1,000 unit) Capsule Take 1 tablet by mouth daily. ??? nitroGLYcerin (NITROGLYN) 2 % ointment Place 0.5 inches onto the skin every 6 hours. No current facility-administered medications on file prior to visit. Physical examination:BP 127/70 Pulse 84 Temp 36.1 ??C (96.9 ??F) (Temporal) Resp 16 Ht 170.2 cm (5' 7.01) Wt 64.9 kg (143 lb) LMP 11/27/2014 SpO2 99% BMI 22.39 kg/m?? The skin examination showed sclerodactyly with healed digital pitting scars on multiple fingers andflexion contractures and PIP joints bilaterally Impression: Longstanding diffuse scleroderma, complicated in the past by scleroderma renal crisis calcinosis, osteoporosis and Joseph's esophagus with severe Raynaud's phenomenon and recurrent digital ulcers. At this time I made no changes in Ms. Wells's regimen. Routine follow-up in approximately 12 months. Ms. Wells understands that she can call or message at any time for questions or concerns. Established visit: 40 minutes total time. documented in this encounter Plan of Treatment Upcoming Encounters Date Type Department Care Team (Late st Contact Info) Description 10/07/2024 11:30 AM EST Office Visit Dermatology at [place] [address] [place] [address] Jo Ordaz MD [facility] [place] [address] 12/13/2024 11:30 AM EST Appointment [place] [phone] 12/13/2024 1:00 PM EST Office [place] [phone] Kiet Pardo MD [facility] [place] [address] documented as of this encounter Visit Diagnoses Diagnosis Scleroderma Systemic sclerosis Other osteoporosis, unspecified pathological fracture presence documented in this encounter
--- OUTSIDE RECORDS SUMMARY | 2024-09-14 13:03 | XMS_ITS | Encounter Summary ---
Author Organization [facility] Address [facility] [place] [address] Care Team Providers Care Digital Imager Name Role Phone None Primary Care Provider Unavailabl e Encounter Details Date Type Department Care Team (Late st Contact Info) Description 04/20/2023 10:09 AM EDT Anesthesia Event [place] [address] Treva Almonte MD [facility] [place] [address] Josh Ro CRNA Anesthesia Record Procedure Summary Procedure Name Responsible Anesthesiologist Anesthesia Start Time Anesthesia Stop Time EGD WITH BIOPSY (WRVU 2.39) (Trunk) Treva Almonte MD 04/20/23 1009 04/20/23 1030 Events Date Time Event Comment 04/20/2023 0942 1008 AN Verify 1009 Start 1009 An Start Data 1011 An Induction 1011 Anesthesia Ready 1014 Procedure Start 1018 Break/Relief In I assumed ca re for Break Relief before which we: 1. Identified the patient 2. Identified the responsible provider(s) 3. Reviewed the pertinent medical history 4. Discussed the surgical plan and course 5. Reviewed intra-op anesthesia management and issues during anesthesia 6. Set expectations for the relief (and/or post-procedure) period 7. Allowed opportunity for questions and acknowledgement of understanding Sera Padron CRNA 1022 Procedure Stop 1030 an stop data 1030 Recovery or ICU Handoff Lorri ent care was transferred to the destination unit staff after review of the patient's medical history, current anesthetic/surgical status and plan, according to the Provider Handoff Checklist. 1030 Stop Meds Name Total Propofol 100 mg Propofol INF 138.82 mg Lactated Ringers 600 mL * Agents Name O2 Air N2O O2 Auxiliary Flowmeter 1 * Blood No blood administrations on file. Lines, Drains, and Airways Type Details Placement Removal (RETIRED) Peripheral IV Line - Single Lumen 04/20/23; 0953; cephalic vein (lateral side of arm), right; dsjg-fky-yhkeif catheter system; 20 gauge; skarsten; distraction; 04/20/23; 1123 04/20/23 0953 by Gabriela Souza RN 04/20/23 112 by Marquita Keyes RN documented in this encounter Social History [...] OR Notes * Anesthesia Postprocedure Evaluation - Treva Almonte MD - 04/20/2023 10:35 AM EDT Department of Anesthesiology Post-procedure Note Patient: Amber Wells Procedure Summary Date: 04/20/23 Room / Location: [facility] ENDO 2 / [facility] Anesthesia Start: 1009 Anesthesia Stop: 103 Procedure: EGD WITH BIOPSY (WRVU 2.39) (Trunk) Diagnosis: Joseph's esophagus with high grade dysplasia (Joseph's ablation f/up) Surgeons: Andrew Berger MD Responsible Provider: Treva Almonte MD Anesthesia Type: MAC ASA Status: 2 All Anesthesia Providers: Anesthesiologist: Treva Almonte MD SAP FICO ARCHITECT: Josh Ro CRNA Vitals Value Taken Time BP 113/73 04/20/23 1030 Temp Pulse Resp SpO2 97 % 04/20/23 1035 Pain Level Vitals shown include unvalidated device data. Patient Location: PACU/[facility] Level of Consciousness: Awake and Alert Pain Management: Satisfactory Analgesia PONV: None Cardiovascular Status: At Baseline and Hemodynamically Stable Respiratory Status: At Baseline and Room Air Postoperative Fluid Status: Intravascular EUvolemia Possible Anesthetic Complications: NONE apparent at time of evaluation Final Primary Anesthesia Type: MAC (The anesthetic type performed was the same as planned.) Comments: TREVA ALMONTE MD * Anesthesia Preprocedure Evaluation - Treva Almonte MD - 04/20/2023 9:40 AM EDT Pre-Anesthesia Evaluation for: Amber Wells a 62 y.o. female. Procedure(s): EGD, UPPER GI ENDOSCOPY (WRU 2.09) Patient Active Problem List Diagnosis Date [...] 2010 Dialysis AprilJun 2010, producing hemoglobin since ??? Chronic pain Left shoulder, middle back, [...] dialysis for 2 months in 2009 ??? half-way current use of opiate analgesic Codeine -tylenols [...] ARM performed by Andre Marroquin MD at [facility] MAIN OR ??? PRO COLONOSCOPY, DIAGNOSTIC N/A 01/31/2019 COLONOSCOPY, DIAGNOSTIC performed by Andrew Berger MD at [facility] ENDOSCOPY ? ? PRO EDG FLEXIBLE TRANSORAL ABLATE TUMOR POLYP/LESION W/DILATION & WIRE N/A 10/12/2021 EGD, TRANSORAL; WITH ABLATION OF TUMOR(S), POLYP(S), OR OTHER LESION(S) (WRVU 4.26) performed by Andrew Berger MD at [facility] ENDOSCOPY ? ? PRO EDG FLEXIBLE TRANSORAL ABLATE TUMOR POLYP/LESION W/DILATION & WIRE N/A 01/12/2022 EGD, TRANSORAL; WITH ABLATION OF TUMOR(S), POLYP(S), OR OTHER LESION(S) (WRVU 4.26) performed by Andrew Berger MD at [facility] ENDOSCOPY ??? PRO ENDOSCOPIC US EXAM, ESOPH N/A 03/29/2016 UPPER EUS- ENDOSCOPIC ULTRASOUND performed by Darryl Ash MD at [facility] ENDOSCOPY ??? PRO RAD RESECT/TUMOR, SOFT TISSUE BACK/FLANK, 5CM OR GREATER Right 06/22/2020 RADICAL RESECTION TUMOR BACK OR FLANK; 5 CM OR GREATER (WRVU 22.55) performed by Solomon Quiros MD at [facility] OSC ??? PRO REBL VES VEIN GRFT, UP EXTREM Left 04/08/2016 REPAIR BLOOD VESSEL WITH VEIN GRAFT, UPPER EXTREMITY performed by Andre Marroquin MD at [facility] MAIN OR ??? PRO UPPER GI ENDOSCOPY, BIOPSY N/A 03/29/2016 UPPER GASTROINTESTINAL ENDOSCOPY,WITH BIOPSY SINGLE OR MULTIPLE performed by Darryl Ash MD at [facility] END[facility] ??? PRO UPPER GI ENDOSCOPY, BIOPSY N/A 01/10/2018 EGD WITH BIOPSY (WRVU 2.49) performed by Andrew Berger MD at [facility] END[facility] ??? PRO UPPER GI ENDOSCOPY, BIOPSY N/A 08/23/2021 EGD WITH BIOPSY (WRVU 2.49) performed by Andrew Berger MD at [facility] ??? PRO UPPER GI ENDOSCOPY, BIOPSY N/A 04/06/2022 EGD WITH BIOPSY (WRVU 2.49) performed by Andrew Berger MD at [facility] END[facility]COPY ??? PRO UPPER GI ENDOSCOPY, BIOPSY N/A 10/18/2022 EGD WITH BIOPSY (WRVU 2.49) performed by Andrew Berger MD at [facility] ENDOSCOPY ??? PRO UPPER GI ENDOSCOPY, DIAGNOSTIC N/A 08/23/2021 EGD, UPPER GI ENDOSCOPY performed by Andrew Berger MD at [facility] END[facility]COPY ??? PRO VEIN BYPASS GRAFT, BRACHIAL ULNAR OR RADIAL Right 10/07/2016 @BYPASS GRAFT, BRACHIAL-ULNAR OR RADIAL W\VEIN (VASC) performed by Andre Marroquin MD at [facility] MAIN OR ??? 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 Smoking status: Former Packs/day: 1.00 Years: 10.00 Pack years: 10.00 Types: Cigarettes Quit date: 03/30/1988 Years since quittin.0 ??? Smokeless tobacco: Never ??? Tobacco comments: never vape Substance Use Topics ??? Alcohol use: Yes Comment: once monthly Social History Substance and Sexual Activity Drug Use No Allergies Allergen Reactions ??? Other [Unclassified Drug] Lobster--weird sensation ??? Shellfish Derived Medications: MAR and/or home medications have been reviewed. Physical Exam: Preprocedure Vitals Current as of 04/20/23 0940 No BP, pulse, respiration, SpO2, or temperature recorded. Height: Weight: BMI: IBW: Airway Assessment: Mallampati: II TM distance: >3 FB Neck ROM: full Cardiovascular Assessment: system normal Pulmonary Assessment: pulmonary exam normal Dental Assessment: - normal exam Misc Assessment: Patient is wearing No contact(s). Last Filed Perioperative Cognitive Screening None Anesthesia Plan: ASA 2 MAC, with a(n) intravenous induction 62 year old female for EGD NPO Joseph's CKD briefly on HD years ago, associated with scleroderma Scleroderma on sildafanil GERD HTN No anesthesia problems in the past Plan Propofol sedation Region - Other Informed Consent: Anesthetic plan and risks discussed with patient. Plan discussed with SAP FICO ARCHITECT. Anesthesia Screening documented in this encounter Plan of Treatment Upcoming Encounters Date Type Department Care Team (Late st Contact Info) Description 10/07/2024 11:30 AM EST Office Visit Dermatology at [facility] [address] [place] [address] Jo Ordaz MD [facility] [place] [address] 12/13/2024 11:30 AM EST Appointment [place] [address] 12/13/2024 1:00 PM EST Office Visit Rheumatology at [facility] [place] [address] Kiet Pardo MD [facility] [place] [address] documented as of this encounter Visit Diagnoses Not on filedocumented in this encounter Administered Medications Inactive Administered Medications - up to 3 most recent administrations Medication Order MAR Action Action Date Dose Rate Site lactated ringers infusion Intravenous, CONTINUOUS PRN, Starting on Nancy 04/20/23 at 1009, Until Nancy 04/20/23 at 1030, Anesthesia Intra-op New Bag 04/20/2023 10:09 AM EDT propofoL (Diprivan) (10 mg/mL) infusion Intravenous, CONTINUOUS PRN, Starting on Nancy 04/20/23 at 1011, Until Nancy 04/20/23 at 1030, Anesthesia Intra-op, Routine New Bag 04/20/2023 10:11 AM EDT 200 mcg/kg/min 75.72 mL/hr propofoL (Diprivan) 10 mg/mL bolus injection (Anesthesia) Intravenous, PRN, Starting on Nancy 04/20/23 at 1009, Until Nancy 04/20/23 at 1030, Anesthesia Intra-op Given 04/20/2023 10:09 AM EDT 100 mg documented in this encounter Care Teams Digital Imager Relationship Specialty Start Date End Date None None PCP - General 04/19/23 04/30/23 documented as of this encounter
--- OUTSIDE RECORDS SUMMARY | 2024-09-14 13:03 | XMS_ITS | Encounter Summary ---
[place] [address] Care Team Providers Care Beauty Artist Name Role Phone Lilibeth Phillips MD Primary Care Provider [phone] Reason for Visit * Reason Onset Date Comments Prior Authorization 10/05/2022 Encounter Details Date Type Department Care Team (Late st Contact Info) Description 10/05/2022 Telephone [place] [phone] Tanesha Kiran CCMA Prior Authorization Social History Tobacco Use Types Packs/Day Years [...] encounter Miscellaneous Notes * Telephone Encounter - Tanesha Kiran LNA - 10/05/2022 11:40 AM EST Medication Prior Authorization 4L Gastroenterology / [place] [address] Subscriber Insurance: [place] Medicaid Phone: Fax: Physician: Andrew Berger NPI: [id number] Return Pharmacy: [facility] Fax: Medication Requested: Esomeprazole Strength: 40mg Frequency: Twice Daily Disp.: 180 Refills: 3 Currently taking: Diagnosis for this medication: Joseph's, GERD ICD-10 code: K22.70, K21.9 Prior medications trialed in this patient: Esomeprazole-Once daily, Omeprazole, Ranitidine Medication: Outcome/Adverse Reactions: Treatment Failure Decision: Approved Tracking number/Case number/Reference number: [id number] Effective date: 10/05/2022 to 10/05/2023 Start: End: documented in this encounter Plan of Treatment Upcoming Encounters Date Type Department Care Team (Late st Contact Info) Description 10/07/2024 11:30 AM EST Office Visit Dermatology at [address] [address] Jo Ordaz MD [facility] [place] [address] 12/13/2024 11:30 AM EST Appointment [place] [address] 12/13/2024 1:00 PM EST Office [place] [address] Kiet Pardo MD [facility] [place] [address] documented as of this encounter Visit Diagnoses Not on filedocumented in this encounter Care Teams Beauty Artist Relationship Specialty Start Date End Date Lilibeth Phillips MD [address] [place] [address] PCP - General Family Medicine 09/21/22 11/20/22 documented as of this encounter
--- OUTSIDE RECORDS SUMMARY | 2024-09-14 13:03 | XMS_ITS | Encounter Summary ---
Author Organization [facility] Address [facility] [place] [address] Care Team Providers Care Community Health Counselor Name Role Phone Unavailable Primary Care Provider Unavailabl e Encounter Details Date Type Department Care Team (Latest Contact Info) Description 01/24/2023 1:40 PM EST Office [place] [address] Andrew Berger MD [facility] [place] [address] Gastroesophageal reflux disease, unspecified whether esophagitis present; Joseph's esophagus with high grade dysplasia Social History Tobacco Use Types Packs/Day Years [...] Sign Reading Time Taken Comments Blood Pressure 152/67 01/24/2023 1:36 PM EST Pulse 95 01/24/2023 1:36 PM EST Temperature - - Respiratory Rate - - Oxygen Saturation - - Inhaled Oxygen Concentration - - Weight 66.2 kg (146 lb) 01/24/2023 1:36 PM EST Height 170.2 cm (5' 7.01) 01/24/2023 1:36 PM ES T Body Mass Index 22.86 01/24/2023 1:36 PM EST documented in this encounter Progress Notes * Andrew Berger MD - 01/24/2023 1:40 PM EST Problem List: GI Problem List: #Scleroderma/Dysmotility #Joseph's esophagus with HGD s/p RFA HPI Comments: Returns for f/up. Last EGD 10/18/2022: - No significant endoscopic evidence for Joseph's save for irregular Z-line and small columnar island but biopsies taken. - 2 cm hiatal hernia. - Normal examined duodenum. Surgical Pathology DIAGNOSIS A - Small island at 38cm, biopsy (Multiple): - Squamocolumnar junctional mucosa with intestinal metaplasia, negative for dysplasia (see Discussion). B - Z-line at 39cm, biopsy (Multiple): - Squamocolumnar junctional mucosa (cardia type) with mild chronic inflammation. - There is no evidence of intestinal metaplasia. C - Distal esophagus at 38cm, biopsy (Multiple): - Esophageal squamous mucosa, within normal limits. Her reflux is well controlled on twice daily PPI but recurs when she has tried less. Also had problems with bowel irregularity and frequency of BMs especially went out or hiking-small amounts of stool but has to go frequenttly. Imodium helps. Has had anorectal manometry in 2015 and pelvic floor PT in the past. Current Outpatient Medications on File Prior to [...] BY MOUTH DAILY 90 tablet 3 ??? Ibuprofen 200 mg Capsule Take by mouth. ??? polyethylene glycoL (Miralax) 17 gram/dose Powder Take 17 g by mouth daily. ??? psyllium husk (METAMUCIL ORAL) Take by mouth daily. ??? fish oil-omega-3 fatty acids 1,000 mg Capsule Take 1,000 mg by mouth daily. ??? calcium citrate (Calcitrate) 200 mg (950 mg) Tablet Take 1,200 mg by mouth daily. ??? glycerin, adult, Suppository daily as needed. 0 ??? loperamide (IMMODIUM) 2 mg Capsule Take 2 mg by mouth 4 times daily as needed for Diarrhea. ??? vitamin E 400 unit Capsule Take 400 Units by mouth daily. ??? cholecalciferol, Vitamin D3, 25 mcg (1,000 unit) Capsule Take 1 tablet by mouth daily. ??? nitroGLYcerin (NITROGLYN) 2 % ointment Place 0.5 inches onto the skin every 6 hours. ??? lidocaine-prilocaine (EMLA) Cream APPLY EXTERNALLY TO THE AFFECTED AREA NEEDED (Patient not taking: Reported on 12/16/2022) 30 g 2 ??? acetaminophen-codeine (Tylenol #3) 300-30 mg Tablet Take 2 tablets by mouth every 6 hours as needed for Pain. Reported on 03/29/2017 (Patient not taking: Reported on 05/31/2022) 60 tablet 0 ??? silver sulfADIAZINE (Silvadene) 1 % Cream Apply topically daily. (Patient not taking: Reported on 05/31/2022) 50 g 0 ??? acetaminophen (TYLENOL) 500 mg Tablet Take 2 tablets by mouth every 8 hours as needed for Pain.(Patient not taking: Reported on 12/16/2022) 30 tablet 1 No current facility-administered medications on file prior to visit. Review of Systems: Constitutional: no weight loss HEENT: no visual changes, no URI symptoms Cardio: no chest pain Resp: no cough, no SOB, no SIBLEY or orthopnea Hem/Lymph: no new lumps or bumps on body GI: see HPI : no dysuria Integumentary: no new rashes Musculoskeletal: no new joint pains Neuro: no new numbness, weakness in extremities Objective: Physical Exam: Patient Vitals for the past 24 hrs: Pulse BP 03/07/23 1336 95 152/67 Weight: 66.2 kg (146 lb) Constitutional: Appears well-developed and well-nourished. Eyes: No scleral icterus. remainder of exam deferred Assessment and Plan: Dysmotility related to scleroderma associated with GERD, Joseph;s s/p ablation and bowel irregularity as above. We dicussed her Joseph's and GERD and need to stay on PPI with repeat EGD planned for later this year. Bowel issues also discussed and recommended she continue on Imodium prn and can revisit anorectal manometry or pelvic floor PT again if symptoms progress. Most of this 30 minute visit spent in discussion and coordination of care regarding dysmotility. Andrew Berger MD die cleaner Director, GI Endoscopy Section of Gastroenterology [place] [address] Cc:No primary care provider on file. No primary provider on file. documented in this encounter Plan of Treatment Upcoming Encounters Date Type Department Care Team (Late st Contact Info) Description 10/07/2024 11:30 AM EST Office Visit Dermatology at [address] [phone] Jo Ordaz MD [facility] [place] [address] 12/13/2024 11:30 AM EST [place] [phone] 12/13/2024 1:00 PM EST Office [place] [phone] Kiet Pardo MD [facility] [place] [address] documented as of this encounter Visit Diagnoses Diagnosis Gastroesophageal reflux disease, unspecified whether esophagitis present Joseph's esophagus with high grade dysplasia Joseph's esophagus documented in this encounter
--- OUTSIDE RECORDS SUMMARY | 2024-09-14 13:03 | XMS_ITS | Encounter Summary ---
Author Organization [facility] [place] [address] Care Team Providers Care Lawn Care Specialist Name Role Phone Unavailable Primary Care Provider Unavailabl e Encounter Details Date Type Department Care Team (Latest Contact Info) Description 09/14/2022 Travel Social History Tobacco Use Types Packs/Day [...] 11:30 AM EST Office Visit Dermatology at [place] [address] [place] [address] Jo Ordaz MD [facility] [place] [address] 12/13/2024 11:30 AM EST Appointment [place] [address] 12/13/2024 1:00 PM EST Office [place] [address] Kiet Pardo MD [facility] [place] [address] documented as of this encounter Visit Diagnoses Not on filedocumented in this encounter
--- OUTSIDE RECORDS SUMMARY | 2024-09-14 13:03 | XMS_ITS | Encounter Summary ---
Author Organization [facility] [place] [address] Care Team Providers Care Cardiothoracic Anesthesia Technician Name Role Phone Unavailable Primary Care Provider Unavailabl e Reason for Visit * Reason Comments Medication Refill Encounter Details Date Type Department Care Team (Late st Contact Info) Description 09/01/2022 Refill [place] [address] Kiet Pardo MD [facility] [address] [place] [address] Social History Tobacco Use Types Packs/Day Years [...] Office Visit Dermatology at [facility] [address] [place] [address] Jo Ordaz MD [facility] [place] [address] 12/13/2024 11:30 AM EST Appointment [place] [address] 12/13/2024 1:00 PM EST Office [place] [address] Kiet Pardo MD [facility] [address] documented as of this encounter Visit Diagnoses Not on filedocumented in this encounter
--- OUTSIDE RECORDS SUMMARY | 2024-09-14 13:03 | XMS_ITS | Encounter Summary ---
Author Organization [facility] [place] [address] Care Team Providers Care Oracle E Business Developer Name Role Phone Unavailable Primary Care Provider Unavailabl e Encounter Details Date Type Department Care Team (Latest Contact Info) Description 01/23/2023 Travel Social History Tobacco Use Types Packs/Day [...] 11:30 AM EST Office Visit Dermatology at [address] [address] Jo Ordaz MD [facility] [place] [address] 12/13/2024 11:30 AM EST Appointment [place] [address] 12/13/2024 1:00 PM EST Office Visit [place] [address] Kiet Pardo MD [facility] [place] [address] documented as of this encounter Visit Diagnoses Not on filedocumented in this encounter
--- OUTSIDE RECORDS SUMMARY | 2024-09-14 13:03 | XMS_ITS | Encounter Summary ---
[place] [address] Care Team Providers Care Tail Board Man Name Role Phone Unavailable Primary Care Provider Unavailabl e Encounter Details Date Type Department Care Team (Late st Contact Info) Description 12/15/2022 Telephone [place] [phone] Key Nazario MA Social History Tobacco Use Types Packs/Day Years [...] encounter Miscellaneous Notes * Telephone Encounter - Key Nazario RMA - 12/15/2022 3:13 PM EST Called patient for pre-charting, no answer. BARB GILL documented in this encounter Plan of Treatment Upcoming Encounters Date Type Department Care Team (Late st Contact Info) Description 10/07/2024 11:30 AM EST Office Visit Dermatology at [address] [place] [address] Jo Ordaz MD [facility] [place] [address] 12/13/2024 11:30 AM EST Appointment [place] [address] 12/13/2024 1:00 PM EST Office [place] [phone] Kiet Pardo MD [facility] [place] [address] documented as of this encounter Visit Diagnoses Not on filedocumented in this encounter
--- OUTSIDE RECORDS SUMMARY | 2024-09-14 13:03 | XMS_ITS | Encounter Summary ---
Author Organization [facility] [place] [address] Care Team Providers Care Academic Physician Name Role Phone Unavailable Primary Care Provider Unavailabl e Encounter Details Date Type Department Care Team (Late st Contact Info) Description 02/22/2023 Orders [place] [address] Kiet Pardo MD [facility] [place] [address] Social History Tobacco Use Types Packs/Day Years [...] at [facility] [address] [place] [address] Jo Ordaz MD [facility] [place] [address] 12/13/2024 11:30 AM EST [place]oint[place] [phone] 12/13/2024 1:00 PM EST [place] [phone] Kiet Pardo MD [facility] [place] [address] documented as of this encounter Visit Diagnoses Not on filedocumented in this encounter
--- OUTSIDE RECORDS SUMMARY | 2024-09-14 13:03 | XMS_ITS | Encounter Summary ---
Author Organization [facility] [place] [address] Care Team Providers Care Vice President Of Advertising Name Role Phone Unavailable Primary Care Provider Unavailabl e Encounter Details Date Type Department Care Team (Late st Contact Info) Description 12/15/2022 [place] [address] Anant Perez PA [address] TELE-[place] [address] Medication monitoring encounter Social History Tobacco Use [...] 11:30 AM EST Office Visit Dermatology at [facility] [address] [place] [address] Jo Ordaz MD [facility] [place] [address] 12/13/2024 11:30 AM [place] [address] 12/13/2024 1:00 PM EST [place] [address] Kiet Pardo MD [facility] DR [place]ATOLOGY [place] [id number] documented as of this encounter Results * (ABNORMAL) Creatinine (12/16/2022 12:21 PM EST) Creatinine 1.14 0.70 - 1.20 mg/dL [facility] Est Glomerular Filtration Rate 55(L) >=60 mL/min/1. 73 m?? [facility] Comment: This patient's estimated GFR was [...] In Lab Kev Lind MD CHEMISTRY ORDERABLES [facility] [place] [address] * BUN (12/16/2022 12:21 PM EST) Blood Urea Nitrogen 18 8 - 18 mg/dL [facility] Blood 12/16/2022 12:2 1 PM EST 12/16/2022 12:32 PM EST Narrative Resulting Agency Comment Spec In Lab Kev Lind MD CHEMISTRY ORDERABLES Performing Organization Address City/[facility]/ZIP Co de Phone Number [facility] [place] [address] * Calcium (12/16/2022 12:21 PM EST) Calcium 9.7 8.5 - 10.5 mg/dL [facility] Blood 12/16/2022 12:2 1 PM EST 12/16/2022 12:32 PM EST Narrative Resulting Agency Comment Spec In Lab Kev Lind MD CHEMISTRY ORDERABLES Performing Organization Address [facility] Co de Phone Number [facility] [place] [address] documented in this encounter Visit Diagnoses Diagnosis Medication monitoring encounter Encounter for therapeutic drug monitoring documented in this encounter
--- OUTSIDE RECORDS SUMMARY | 2024-09-14 13:03 | XMS_ITS | Encounter Summary ---
[facility] [place] [address] Care Team Providers Care Service Observer Name Role Phone None Primary Care Provider Unavailabl e Encounter Details Date Type Department Care Team (Late st Contact Info) Description 03/21/2023 [place] [phone] Rosalina Rivas Social History Tobacco Use Types [...] * Telephone Encounter - Rosalina Rivas - 03/21/2023 2:28 PM EDT Amber Wells [id number] Diagnosis/Indication: 6 mo Please review patient chart to confirm if previous Endoscopy procedure was performed within system. If yes, take note of Anesthesia type used. If previous procedure found, and with MAC/propofol Anesthesia support was used, schedule this procedure with Anesthesia and skip the Anesthesia portion of questions. If not performed within system, not performed at all, or performed with IVCS, ask Anesthesia questions. SCHEDULING QUESTIONS (ask all patient these questions) 1. Have you ever had a/an Upper Endoscopy before? Yes: Date 10/18/22 If yes, did you have any problems with the procedure (such as waking up during the procedure, pain or difficulties afterwards, etc.)? No What type of sedation was used: General Anesthesia 2. Do you take any blood thinners or have you been diagnosed with a bleeding disorder that increases your risk of bleeding with procedures? No 3. Do you have a Pacemaker or Defibrillator device? If yes, send pool message to Cardiology with patient information and date or procedure. No 4. Are you a diabetic? If yes, call PCP/managing provider to discuss use of prep and any questions or concerns related to. No 5. Do you take any iron supplements or vitamins that contain iron? Yes 6. Do you have a preference regarding the gender of your provider? Yes Ab ANESTHESIA QUESTIONS (YES to any question, please book with Anesthesia support) 7. Have you ever been diagnosed with Pulmonary Hypertension and/or Congential Heart Disease? No 8. Have you been diagnosed with A-Fib (atrial fibrillation) that is NOT being well controled with medications? No 9. Have you ever had an allergic or adverse reaction to Fentanyl or Versed? No 10. Have you had a problem with sedation or anesthesia? (Waking up during procedure, extreme confusion after, etc.) No 11. Do you have a diagnosis of Obstructive Sleep Apnea that requires the use of a c-pap machine? No 12. Do you use an oxygen tank at home? No 13. Do you use a rescue inhaler more than twice per day? (COPD, severe asthma) No 14. Do you experience breathing problems when you lay flat for a period of time? No 15. Do you take prescription narcotic pain medications, including suboxone or methodone? No SCHEDULING CONFIRMATIONS: Please note any and all parts of your conversation with the patient here. 16. We offer all new patients an opportunity to have an appointment with one of our associate care providers to learn more about your upcoming procedure, ask questions and get answers. These appointments are offered via telehealth. Would you be interested in scheduling this appointment? (Only ask if NEW referral patient; skip this question if GI provider ordered the procedure.) No 17. Is there any other information or concerns you would like to us to share with your care team inrelation to your upcoming scheduled procedure? No 18. You must have a responsible libertarian who will drive you to your procedure, stay on campus for the entire duration of your procedure, and drive you home from your procedure. Who will likely be your transportation driver for the procedure? *Please Verify the height and weight, and adjust if height and/or weight have changed* Estimated body mass index is 22.86 kg/m?? as calculated from the following: Height as of 01/24/23: 170.2 cm (5' 7.01). Weight as of 01/24/23: 66.2 kg (146 lb). Age:62 y.o. documented in this encounter Plan of Treatment Upcoming Encounters Date Type Department Care Team (Late st Contact Info) Description 10/07/2024 11:30 AM EST Office Visit Dermatology at [facility] [address] [place] [address] Jo Ordaz MD [facility] [place] [address] 12/13/2024 11:30 AM EST [place] [address] 12/13/2024 1:00 PM EST [place] [address] Kiet Pardo MD [facility] [address] documented as of this encounter Visit Diagnoses Not on filedocumented in this encounter Care Teams Service Observer Relationship Specialty Start Date End Date None None PCP - General 03/15/23 04/18/23 documented as of this encounter
--- OUTSIDE RECORDS SUMMARY | 2024-09-14 13:04 | XMS_ITS | Encounter Summary ---
[place] [address] Care Team Providers Care Network Systems Administrator Name Role Phone IndraDanya haq Dinora NOVOA Primary Care Provider [phone] Reason for Visit * Reason Onset Date Comments Prior Authorization 02/03/2022 Sildenafil Encounter Details Date Type Department Care Team (Late st Contact Info) Description 02/03/2022 Telephone [place] [address] Samantha Chu CMA Prior Authorization (Sildenafil) Social History Tobacco Use Types Packs/Day Years [...] encounter Miscellaneous Notes * Telephone Encounter - Betzy Abraham CMA - 02/03/2022 10:07 AM EDT Medication Prior Authorization for Primary Care Approved: Sildenafil 20 mg tablets Start Date: 02.03.22 End Date: 02.03.23 Case/Reference #: [id number] See Approval Letter in scanned documents. Additional Notes: * Telephone Encounter - Samantha Chu CMA - 02/03/2022 8:47 AM EDT Medication Prior Authorization Request received via: Message Patient: Amber Wells Patient : 1960 Insurance Company: [place] Medicaid Sent via: [facility] Andino: [id number] Physician: Kiet Pardo MD Medication Requested: sildenafiL (Revatio) 20 mg Tablet Frequency/Sig: TAKE TWO TABLETS BY MOUTH EVERY MORNING, ONE TABLET EVERY AFTERNOON, AND TWO TABLETSEVERY EVENING Disp: 150 Refills: 5 Currently taking: yes If yes, how lon Diagnosis for this medication: Raynaud's disease without gangrene [I73.00] Scleroderma [M34.9] Prior medications trialed in this patient: Medication: tadalafil Approx Dates: 2016 Outcome/Adverse Reactions: inadequate resonse Additional Notes: documented in this encounter Plan of Treatment Upcoming Encounters Date Type Department Care Team (Late st Contact Info) Description 10/07/2024 11:30 AM EST Office Visit Dermatology at [address] [address] Jo Ordaz MD [facility] [place] [address] 12/13/2024 11:30 AM EST Appointment [place] [phone] 12/13/2024 1:00 PM EST Office Visit [place] [phone] Kiet Pardo MD [facility] [place] [address] documented as of this encounter Visit Diagnoses Not on filedocumented in this encounter Care Teams Network Systems Administrator Relationship Specialty Start Date End Date Danya Acuna APRN [address] [facility] [address] [place] [address] PCP - General Family Medicine 02/19/21 08/12/22 documented as of this encounter
--- OUTSIDE RECORDS SUMMARY | 2024-09-14 13:04 | XMS_ITS | Encounter Summary ---
Author Organization [facility] Address [facility] [place] [address] Care Team Providers Care Utility Mechanic Name Role Phone Danya Acuna BRIGHT Primary Care Provider [phone] Encounter Details Date Type Department Care Team (Late st Contact Info) Description 01/12/2022 1:00 PM EST - 01/12/2022 2:00 PM EST [place] [address] Andrew Berger MD [facility] [place] [address] EGD, TRANSORAL; WITH ABLATION OF TUMOR(S), POLYP(S), OR OTHER LESION(S) (WRVU 4.01) Social History Tobacco Use Types Packs/Day Years [...] Sign Reading Time Taken Comments Blood Pressure 142/83 01/12/2022 12:54 PM EST Pulse 70 01/12/2022 12:54 PM EST Temperature 36.8 ??C (98.3 ??F) 01/12/2022 12:[address] Respiratory Rate 18 01/12/2022 12:54 PM EST Oxygen Saturation 99% 01/12/2022 12:54 PM EST Inhaled Oxygen Concentration - - Weight - - Height - - Body Mass Index - - documented in this encounter Discharge Instructions * Discharge Instructions* Braden Dunlap RN - 01/12/2022 2:29 PM EST Upper GI Endoscopy: What to [...] the day after the procedure, use an afoi-flv-cgahspd spray to numb your throat. Sucking on [...] occurs, please contact your Doctor. Please call [phone] before 8pm Mon-Fri with problems, questions or concerns. If you call after 8pm or on weekends, call the Hospital at [phone] and ask to speak to the Regrader retention specialist and the oiling machine operator will contact that person for you. When should you call for help? Call [phone] anytime you think you may need emergency [...] any problems. Where can you learn more? [facility] View your After Visit Summary and more online at [email or web address] If you would like to provide feedback about your hospital experience, please call the Office of Patient and Family Relations at . If you have received this After Visit Summary in error, please immediately return it in person to the department, or notify the [facility] Privacy Office by calling toll free at between the hours of 8AM and 5PM to arrange for our retrieval of the documents at no cost to you. Content Version: 12.2 ?? [id number] Press. Care instructions adapted under license by [facility]. If you have questions about a medical condition or this instruction, always ask your healthcare professional. Press disclaims any warranty or liability for your use of this information. * Patient Instructions* Andrew Berger MD - 01/12/2022 2:27 PM EST Please see Recommendations in the Provation procedure report which is documented in the procedural note in E-DH. documented in this encounter Medications at Time of Discharge Medication Sig Dispensed Refills Start Date End Date zoledronic mkhv-rwqffpha-nqrag (zoledronic Acid) 5 mg/100 mL infusion .every year 03/07/2021 Ibuprofen 200 mg Capsule Take by mouth. [...] % Ointment Twice a day 02/01/2021 02/21/2024 diphenhydrAMINE/alumi num-magnesium hydroxide with simethicone/lidocaine (BMX) (6.67 mg-0.83 mg-13.33 mg-1.33 mg/mL) oral liquid Take 5 mLs by mouth 4 times daily as needed for up to 10 days. 200 mL 01/12/2022 01/22/2022 oxyCODONE (Roxicodone) 5 mg/5 mL Solution Take 5-10 mLs by mouth every 4 hours as needed for Pain. 200 mL 01/12/2022 05/31/2022 amLODIPine (Norvasc) 5 mg Tablet Take 1 tablet by mouth daily. 90 tablet 3 10/02/2021 06/23/2022 silver sulfADIAZINE (Silvadene) 1 % Cream Apply topically daily. 50 g 09/24/2021 05/01/2023 sulfacetamide (KLARON) 10 % Suspension Apply 1 Application topically 2 times daily as needed. 118 mL 3 09/24/2021 05/31/2022 fosinopriL (MONOPRIL) 20 mg TabletIndications:Scl eroderma,CKD (chronic kidney disease) stage 3, GFR 30-59 ml/min TAKE 1 TABLET BY MOUTH EVERY DAY 90 tablet 3 09/14/2021 09/15/2022 esomeprazole (NexIUM) 40 mg Capsule, Delayed Release(E.C.)Indicati ons:CKD (chronic kidney disease) stage 3, GFR 30-59 ml/min,Scleroderma Take 1 capsule by mouth 2 times daily. 180 capsule 3 07/13/2021 07/04/2022 sildenafiL (Revatio) 20 mg Tablet TAKE TWO TABLETS BY MOUTH EVERY MORNING, ONE TABLET EVERY AFTERNOON AND TWO TABLETS EVERY EVENING 150 tablet 5 03/16/2021 01/27/2022 melatonin 3 mg Tablet Take 3 mg by mouth nightly. 05/31/2022 lidocaine-prilocaine (EMLA) Cream APPLY TO THE AFFECTED AREA NEEDED 30 g 2 01/18/2021 06/13/2022 acetaminophen-codeine (TYLENOL #3) 300-30 mg Tablet Take 2 tablets by mouth every 6 hours as needed for Pain. Reported on 03/29/2017 60 tablet 12/11/2018 04/20/2022 documented as of this encounter H&P Notes * Andrew Berger MD - 01/12/2022 1:03 PM EST Gastroenterology and Hepatology Pre-Procedure History and Physical Exam Procedure: EGD: Indication: F/up RFA of Joseph's with HGD. Patient Active Problem [...] Op Note - Andrew Berger MD - 01/12/2022 2:03 PM EST [facility] Operative Note Patient Name: Amber Wells : [id number] MR#: [id number] Case Date: 01/12/2022 Surgeon: Surgeon(s) and Role: * Andrew Berger MD - Primary * Suzi Rodriguez MD - Fellow Preoperative diagnosis: F/up Barrx ablation Postoperative diagnosis: * No post-op diagnosis entered * Procedure(s) (LRB): EGD, TRANSORAL; WITH ABLATION OF TUMOR(S), POLYP(S), OR OTHER LESION(S) (WRVU 4.26) (N/A) Anesthesia: MAC Full procedure note is documented under the Procedure section of eDH. documented in this encounter Plan of Treatment Upcoming Encounters Date Type Department Care Team (Late st Contact Info) Description 10/07/2024 11:30 AM EST Office Visit Dermatology at [address] [place] [address] Jo Ordaz MD [facility] [place] [address] 12/13/2024 11:30 AM EST Appointment [place] [phone] 12/13/2024 1:00 PM EST [place] [phone] Kiet Pardo MD [facility] [place] [address] Scheduled Orders Name Type Priority Associated Diagnoses Orde r Schedule ENDOSCOPY CASE REQUEST: EGD, UPPER GI ENDOSCOPY Procedures Routine Joseph's esophagus with high grade dysplasia Ordered: 01/12/2022 documented as of this encounter Procedures Procedure Name Priority Date/Time Associated Diagnosis Comments Edg Flexible Transoral Ablate Tumor Polyp/Lesion W/Dilation & Wire (09325) 01/12/2022 2:01 PM EST Joseph's esophagus with high grade dysplasia UPPER GI ENDOSCOPY Routine 01/12/2022 1: 49 PM EST documented in this encounter Results * UPPER GI ENDOSCOPY (01/12/2022 1:49 PM EST) UPPER GI ENDOSCOPY [facility] Endoscopy ___ Procedure Date: 01/12/2022 1:49 PM ? Patient Name: Amber Wells ? Date of : 1960 ? Age: 61 ? Order #: [id number] ? Instrument Name: [id number] ? ___ Procedure: ? Upper GI endoscopy Indications: ? Joseph's high grade dysplasia, ? Follow-up of previous ablation ? treatment of Joseph's esophagus Providers: ? Andrew Berger MD, Debbie Ortega ? [place] Garcia, Geneva Molina MD: ?Danya Acuna Medicines: ? Propofol per Anesthesia Complications: ? No immediate complications. ___ Procedure: ? Pre-Anesthesia Assessment: ? - Prior [...] and informed consent was obtained. ? - ASA Grade Assessment: II - A ? patient with mild systemic disease. ? - Using IV propofol under the ? supervision of an anesthesiologist ? was determined to be medically ? necessary for this procedure based on ? prolonged procedure requiring deep ? sedation. ? The procedure, indications, benefits, ? risks and alternatives were explained ? to the patient. Specifically ? discussed were potential ? complications including, but not ? limited to, bleeding, perforation, ? infection, missing a cancer, and ? adverse medication reactions. The ? Endoscope was introduced through the ? mouth, and advanced to the second ? part of duodenum. The patient ? tolerated the procedure well. The ? patient tolerated the procedure well. ? Findings: ? The Z-line was slightly irregular and was found 36 cm ? from the incisors associated with 5 mm island of ? Joseph's 1 cm proximal to GE Jct. Focal ? radiofrequency ablation of Joseph's esophagus was ? performed. With the endoscope in place, the position ? and extent of the Joseph's mucosa and the anatomic ? landmarks including proximal and distal extent of ? Joseph's mucosa were noted. Endoscopic visualization ? identified an ablation site including the entire ? visible Joseph's segment. The Joseph's mucosa was ? irrigated with water. Gastric and esophageal contents ? were suctioned. The endoscope was then removed from ? the patient. The Barrx-90 radiofrequency ablation ? catheter was attached to the tip of the endoscope. ? The endoscope with the attached radiofrequency ? ablation catheter was then passed transorally under ? direct vision into the esophagus and advanced to the ? areas of Joseph's mucosa. The areas included islands ? and circumferential areas of Joseph's mucosa. The ? radiofrequency ablation catheter was placed in ? contact with the surface of the Joseph's mucosa ? under direct visualization and energy was applied ? twice at 12 J/cm2. Ablation was repeated in a ? likewise fashion to treat the entire area of ? suspected Joseph's mucosa (7 double hits). The ? ablation zone was cleaned of coagulative debris. The ? ablation catheter and endoscope were then removed and ? the catheter was cleaned. The catheter and endoscope ? were reinserted into the esophagus. A second round of ? ablation was then performed. Energy was applied twice ? at 12 J/cm2 to retreat the areas of Joseph's ? epithelium that had been treated with the first ? series of ablation (7 additional double hits). The ? areas of the esophagus where Joseph's mucosa had ? been ablated were examined. Areas of Joseph's ? esophagus were completely ablated. ? The stomach was normal. ? The examined duodenum was normal. ? Moderate Sedation: ? Not applicable - See Anesthesia documentation Impression: ?- Minimal residual short segment ? Joseph's-retreated with RFA. ? - Normal stomach. ? - Normal examined duodenum. ? - No specimens collected. Recommendation: ?- Observe patient's clinical course. ? - Liquid diet x 24 hours, then soft ? diet for 7-10 days. ? - Double dose PPI. ? - May use pain medication as needed. ? - Repeat upper endoscopy in 3 months ? for follow-up of Joseph's ablation. ? Attending Participation: ? I personally performed the entire procedure. ? Andrew Berger MD 01/12/2022 2:40:44 PM This report has been signed electronically. Number of Addenda: 0 Note Initiated On: 01/12/2022 1:49 PM PROVATION 01/12/2022 1:49 PM EST Danya Acuna APRN GENERAL SURGICAL ORD ERABLES PROVATION documented in this encounter Visit Diagnoses Diagnosis Joseph's esophagus with high grade dysplasia- Primary Joseph's esophagus Joseph's esophagus with high grade dysplasia Joseph's esophagus documented in this encounter Administered Medications Inactive Administered Medications - up to 3 most recent administrations Medication Order MAR Action Action Date Dose Rate Site fentaNYL (PF) (50 mcg/mL) injection 50 mcg 50 mcg, Intravenous, EVERY 15 MIN, 4 doses, First dose on Mon01/12/22 at 1515, Last dose on Mon01/12/22 at 1600, If medication ordered subcutaneously, do not administer more than 2 mL as a single injection., Endoscopy (Recovery-Hospital Unit), Routine Given 01/12/2022 3:55 PM EST 50 mcg Given 01/12/2022 3:10 PM EST 50 mcg Given 01/12/2022 2:50 PM EST 50 mcg lactated ringers infusion 100 mL/hr, Intravenous, CONTINUOUS, Starting on Mon01/12/22 at 1315, Until Mon01/12/22 at 1500, Endoscopy (Day of Procedure) Restarted 01/12/2022 2:20 PM EST New Bag 01/12/2022 1:04 PM EST 100 mL/hr 100 mL/hr documented in this encounter Active and Recently Administered Medications Times are shown in EST. Scheduled Medication Order 01/10/2022 01/11/2022 01/12/2022 fentaNYL (PF) (50 mcg/mL) injection 50 mcg (CANCELED) 50 mcg, Intravenous, EVERY 15 MIN, 4 doses, First dose on Mon01/12/22 at 1515, Last dose on Mon01/12/22 at 1600, If medication ordered subcutaneously, do not administer more than 2 mL as a single injection., Endoscopy (Recovery-Hospital Unit), Routine 1450 (Given - Provid er: Braden Dunlap RN)1510 (Given - Provider: Braden Dunlap RN)1530 (Canceled Entry - Provider: Gunnar Degroot RN - Reason: Entered in Error)1545 (Canceled Entry - Provider: Gunnar Degroot RN - Reason: Entered in Error)1555 (Given - Provider: Braden Dunlap RN)1600 (Canceled Entry - Provider: Gunnar Degroot RN - Reason: Entered in Error) Continuous Medication Order 01/10/2022 01/11/2022 01/12/2022 lactated ringers infusion (CANCELED) 100 mL/hr, Intravenous, CONTINUOUS, Starting on Mon01/12/22 at 1315, Until Mon01/12/22 at 1500, Endoscopy (Day of Procedure) 1304 (New Bag - Prov ider: Jaiden Cohen RN)1419 (Paused - Provider: Alden Vilchis CRNA - Comment: Switch to gravity)1420 (Restarted - Provider: Alden Vilchis CRNA) documented in this encounter Care Teams Utility Mechanic Relationship Specialty Start Date End Date Danya Acuna APRN [address] [facility] [place] [address] PCP - General Family Medicine 02/19/21 08/12/22 documented as of this encounter
--- OUTSIDE RECORDS SUMMARY | 2024-09-14 13:04 | XMS_ITS | Encounter Summary ---
Author Organization [facility] [place] [address] Care Team Providers Care Food Service Aide Name Role Phone Danya Acuna BRIGHT Primary Care Provider [phone] Encounter Details Date Type Department Care Team (Late st Contact Info) Description 04/06/2022 1:00 PM EDT - 04/06/2022 1:30 PM EDT [place] [phone] Anderw Berger MD [facility] [place] [address] EGD WITH BIOPSY (WRVU 2.39) Social History [...] Sign Reading Time Taken Comments Blood Pressure 152/73 04/06/2022 1:11 PM EDT Pulse 66 04/06/2022 1:11 PM EDT Temperature 36.8 ??C (98.2 ??F) 04/06/2022 1:11 PM ED T Respiratory Rate 16 04/06/2022 1:11 PM EDT Oxygen Saturation 99% 04/06/2022 1:11 PM EDT Inhaled Oxygen Concentration - - Weight 62.6 kg (138 lb) 04/06/2022 1:11 PM EDT Height 170.2 cm (5' 7) 04/06/2022 1:11 PM EDT Body Mass Index 21.61 04/06/2022 1:11 PM EDT documented in this encounter Discharge Instructions * Discharge Instructions* Roxie Nye RN - 04/06/2022 3:03 PM EDT UPPER GI ENDOSCOPY WHAT TO EXPECT AFTER THE PROCEDURE After the test you may feel a little more gassy or bloated than usual, this is normal. ACTIVITY Because of the sedation that you receivedYour judgement and reaction time are affected Go home and rest quietly for the remainder of the day. You may resume your normal activities tomorrow. Change from one position to the next slowly. You may lose your balance unexpectedly. Be careful on stairs, as you may be unsteady on your feet. FOR THE NEXT [address] OR OPERATE ANY MACHINERY DO NOT DRINK ALCOHOLIC BEVERAGES DO NOT SIGN LEGAL DOCUMENTS If you are a smoker: DO NOT SMOKE WHILE YOU ARE ALONE Diet Start by eating small portions of foods that ordinarily will not upset your stomach. Be gentle withwhat you choose to start with. Drink plenty of fluids ( unless otherwise told not to) Medications You may have a mild sore throat. Ice chips, popsicles, over the counter throat lozenges or spray may help numb your throat. This procedure should not cause a fever. IV SITE-- slight redness or tenderness is normal, you can use warm compresses if you get concerned.If the tenderness +/or redness increases or foul drainage and a red streak occurs, please contact your PCP immediately. WHEN SHOULD YOU CALL FOR HELP? Call 911 anytime you think that you need emergency care. For example, call if: You passed out (lost consciousness). You cough up blood. You vomit blood or what looks like coffee grounds. You pass maroon or very bloody stools. Call your healthcare provider or seek immediate medical attention if: You have trouble swallowing. You have belly pain. Your stools are black or tarlike or have streaks of blood. You are sick to your stomach or cannot keep fluids down. Watch closely for changes in your health, and be sure to contact your doctor IF Your throat still hurts after a day or two You do not get better as expected. Monday-Monday Same Day Endo [phone]-[phone] Otherwise contact [phone] and ask to speak to the high school music director section gang Follow-up care is a cardenas part of your treatment and safety. Be sure to make and go to all appointments, and call your doctor if you are having problems. Instructions have been reviewed and patient expresses understanding * Patient Instructions* Andrew Berger MD - 04/06/2022 3:47 PM EDT Please see Recommendations in the Provation procedure report which is documented in the procedural note in E-DH. documented in this encounter Medications at Time of Discharge Medication Sig Dispensed Refills Start Date End Date zoledronic gzgk-qdnknwog-ijgtv (zoledronic Acid) 5 mg/100 mL infusion .every [...] day 02/01/2021 02/21/2024 sildenafiL (Revatio) 20 mg Tablet TAKE TWO TABLETS BY MOUTH EVERY MORNING, ONE TABLET EVERY AFTERNOON, AND TWO TABLETS EVERY EVENING 150 tablet 5 01/27/2022 09/01/2022 oxyCODONE (Roxicodone) 5 mg/5 mL Solution Take [...] times daily. 180 capsule 3 07/13/2021 07/04/2022 melatonin 3 mg Tablet Take 3 mg by mouth nightly. 05/31/2022 lidocaine-prilocaine (EMLA) Cream APPLY TO THE AFFECTED AREA NEEDED 30 g 2 01/18/2021 06/13/2022 acetaminophen-codeine (TYLENOL #3) 300-30 mg Tablet Take 2 tablets by mouth every 6 hours as needed for Pain. Reported on 03/29/2017 60 tablet 12/11/2018 04/20/2022 documented as of this encounter H&P Notes * Suzi Rodriguez MD - 04/06/2022 1:40 PM EDT Patient Name: Amber Wells Patient Age: 61 y.o. Birthdate: 1960 Admit date: 04/06/2022 Attending Physician: Andrew Berger MD Gastroenterology and Hepatology Pre-Procedure History and Physical Exam Procedure: EGD: Indication: post ablation follow up for Joseph's esophagus with HGD Patient Active Problem List Diagnosis Code ??? [...] HEENT: Airway examined, oropharynx clear Mallampati Score: per anesthesia LUNGS: Clear to auscultation HEART: Regular rate and rhythm, normal S1, S2 ABDOMEN: Normal bowel sounds, soft, non tender, non distended A/P Proceed with the planned endoscopic procedure. ASA 2 - Patient with mild systemic disease with no functional limitations Sedation Plan: deep Risks and benefits of the procedure explained to the patient in detail. Consent signed. documented in this encounter Miscellaneous Notes * Op Note - Andrew Berger MD - 04/06/2022 2:32 PM EDT [facility] Operative Note Patient Name: Amber Wells : [id number] MR#: [id number] Case Date: 04/06/2022 Surgeon: Surgeon(s) and Role: * Andrew Berger MD - Primary * Suzi Rodriguez MD - Fellow Preoperative diagnosis: F/up Barrx Postoperative diagnosis: * No post-op diagnosis entered * Procedure(s) (LRB): EGD WITH BIOPSY (WRVU 2.49) (N/A) Anesthesia: MAC Full procedure note is documented under the Procedure section of eDH. documented in this encounter Plan of Treatment Upcoming Encounters Date Type Department Care Team (Late st Contact Info) Description 10/07/2024 11:30 AM EST Office Visit Dermatology at [place] [address] [place] [address] Jo Ordaz MD [facility] [place] [address] 12/13/2024 11:30 AM EST [place] [address] 12/13/2024 1:00 PM EST Office [place] [phone] Kiet Pardo MD [facility] [place] [address] documented as of this encounter Procedures Procedure Name Priority Date/Time Associated Diagnosis Comments SURGICAL PATHOLOGY REPORT Routine 04/06/2022 2:44 PM EDT SPECIMEN TO PATHOLOGY Routine 04/06/2022 2:44 PM EDT SPECIMEN TO PATHOLOGY Routine 04/06/2022 2:44 PM EDT Upper Gi Endoscopy, Biopsy ([id number]) 04/06/2022 2:22 PM EDT Joseph's esophagus with high grade dysplasia documented in this encounter Results * Surgical Pathology Report (04/06/2022 2:44 PM EDT) Final Diagnosis -[id number] ? Location: 4T; EA13; A The signing pathologist has (i) examined the relevant preparation(s) for the specimen(s) and (ii) rendered or confirmed the diagnosis(es). . ? Addendum ADDENDUM DISCUSSION A WATS 3D report ( dated 04/13/2022) on specimen C has been received. For the full text of the WATS 3D report(s), please refer to Non- Documentation Pathology in the electronic health record (eDH). Electronically signed by: ?Adri HEARD PhD, Josie Verified: ??04/14/2022 12:32 ??Pathologist Performed at: ??-[facility], [place], [place] ?Surgical Pathology DIAGNOSIS A - Z -line at 39 cm, biopsy (Multiple): - ??Squamocolumnar junctional mucosa (cardia type) with mild chronic inflammation. There is no evidence of intestinal metaplasia. B - Distal esophagus at 38 cm, biopsy (Multiple): - ??Squamous mucosa negative for diagnostic abnormality. Electronically signed by: ?Brandon Urrutia MD Verified: ??04/11/2022 12:43 ??Pathologist Performed at: ??[facility], [place], [place] SPECIMEN(S) SUBMITTED A - Z -line at 39 cm, biopsy (Multiple) B - Distal esophagus at 38 cm, biopsy (Multiple) CLINICAL INFORMATION . SPECIMEN PROCESSING A - Labeled/Fixative: Z line at 39 cm, formalin. Quantity/Size: ??Five, ranging from 0.1-0.4 cm. Tissue Description: Soft, pink-white tissue. Sections/Processi ng: Submitted en toto ??in 1 cassette labeled A1. B - Labeled/Fixative: Distal esophagus at 38 cm, formalin. Quantity/Size: Four, ranging from 0.2-0.6 cm. Tissue Description: Soft, white tissues. Sections/Processi ng: Submitted en toto ??in 1 cassette labeled B1. ??sns 04/14/2022 12:[address] [facility] GI Biopsy 04/06/2022 2:44 PM EDT 04/06/2022 2:44 PM EDT GI Biopsy 04/06/2022 2:44 PM EDT 04/06/2022 2:44 PM EDT Consult Case 04/06/2022 2:44 PM EDT 04/06/2022 2:44 PM EDT Andrew Berger MD PATHOLOGY/CYTOLOGY O Y[facility]ETTE Performing Organization Address [facility] [place] [address] * Specimen to Pathology (04/06/2022 2:44 PM EDT) AP Specimen 04/06/2022 2:44 PM EDT 04/06/2022 2:[address] [facility] - 04/06/2022 2:44 PM EDT Specimen requisition ordered. ??Separate Pathology report to follow Andrew Berger MD PATHOLOGY/CYTOLOGY O [place] Performing Organization Address [facility] [place] [address] * Specimen to Pathology (04/06/2022 2:44 PM EDT) AP Specimen 04/06/2022 2:44 PM EDT 04/06/2022 2:[address] [facility] - 04/06/2022 2:44 PM EDT Specimen requisition ordered. ??Separate Pathology report to follow Andrew Berger MD PATHOLOGY/CYTOLOGY O [place] Performing Organization Address [facility] [place] [address] documented in this encounter Visit Diagnoses Diagnosis Joseph's esophagus with high grade dysplasia Joseph's esophagus documented in this encounter Active and Recently Administered Medications Care Teams Food Service Aide Relationship Specialty Start Date End Date Danya Acuna APRN [address] [place] [address] PCP - General Family Medicine 02/19/21 08/12/22 documented as of this encounter
--- OUTSIDE RECORDS SUMMARY | 2024-09-14 13:04 | XMS_ITS | Encounter Summary ---
Author Organization [facility] [place] [address] Care Team Providers Care Certified Medical Assistant Name Role Phone Danya Acuna BRIGHT Primary Care Provider [phone] Reason for Visit * Reason Comments Follow-up left hand raynauds - believes she is here for a botox injection to her left hand Encounter Details Date Type Department Care Team (Late st Contact Info) Description 10/21/2021 11:00 AM EST Office [place] [address] Andre Marroquin MD [facility] [place] [address] Scleroderma Social History Tobacco Use Types Packs/Day Years Used Date Smoking Tobacco: Former Cigarettes 1 10 0 03/30/1978 - 03/30/1988 Smokeless Tobacco: Never Comments:never vape Alcohol Use Standard Drinks/Week Comments Yes 0 (1 standard drink = 0.6 oz pur e alcohol) once a week Sex and Gender Information Value Date Recorded Sex Assigned at Female 09/17/2021 7:57 PM EDT Gender Identity Female 11/08/2018 9:52 PM EST Sexual Orientation Straight 07/09/2021 4: 47 PM EDT documented as of this encounter Progress Notes * Andre Marroquin MD - 10/21/2021 11:00 AM EST Plastic Surgery Follow Up Note Reason for visit: F/U status post procedure Date of surgery: 10/07/16 Procedure(s): Ulnar artery transfer into cephalic vein Complications: None reported HPI: Amber Wells returns today in f/u to proceed with additional botox injections to both of her hands due to vasospasm and Raynauds now worse in the Winter. She has not had any new ulcers on her fingertips over the last year. 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 Examination: Patient is alert, conversant, comfortable, ambulating Hands: stable tight fibrotic skin, no ulcers today, fingertips with 2-3 sec CR. Scatted mottling of the skin c/w Raynauds with some skin in blue and pale phases. Procedures: Patient arrived with EMMLA cream already applied. Alcohol and lidocaine gel skin prep 100 u of botox injected as follows: Botox: 10u in region of common digital artery at thumb, radial index, 2nd web, 3rd web, 4th web, or 50U per hand. ??Both hands treated for a total of 100 Units. Botox lot number [id number] Expiration date: 01/13 Impression: Amber Wells is a 61 y.o. 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 Will proceed with botox injections to both hands. Plan: Proceed with botox injections bilateral hands Follow up 6-12 mo for repeat injections ISophie, have performed the documentation for this encounter in the presence of and acting as a scribe for Andre Marroquin MD. documented in this encounter Plan of Treatment Upcoming Encounters Date Type Department Care Team (Late st Contact Info) Description 10/07/2024 11:30 AM EST Office Visit Dermatology at [facility] [address] [place] [address] Jo Ordaz MD [facility] [place] [address] 12/13/2024 11:30 AM EST [place] [address] 12/13/2024 1:00 PM EST [place] [address] Kiet Pardo MD [facility] [place] [address] documented as of this encounter Visit Diagnoses Diagnosis Scleroderma Systemic sclerosis documented in this encounter Care Teams Certified Medical Assistant Relationship Specialty Start Date End Date Danya Acuna APRN [address] [place] [address] PCP - General Family Medicine 02/19/21 08/12/22 documented as of this encounter
--- OUTSIDE RECORDS SUMMARY | 2024-09-14 13:04 | XMS_ITS | Encounter Summary ---
[place] [address] Care Team Providers Care Blasting Helper Name Role Phone Indraeun Danya Dinora NOVOA Primary Care Provider [phone] Reason for Visit * Reason Onset Date Comments Prior Authorization 02/10/2022 Encounter Details Date Type Department Care Team (Late st Contact Info) Description 02/10/2022 Telephone [place] [phone] Gem Richey RNlab support tech Social History Tobacco Use Types Packs/Day Years [...] encounter Miscellaneous Notes * Telephone Encounter - Gem Richey RN - 02/10/2022 12:39 PM EDT PA for Sildenafil was approved. LM for Amber to call pharmacy and ask that medication be refilled. documented in this encounter Plan of Treatment Upcoming Encounters Date Type Department Care Team (Late st Contact Info) Description 10/07/2024 11:30 AM EST Office Visit Dermatology at [facility] [address] [place] [address] Jo Ordaz MD [facility] [place] [place] [address] 12/13/2024 11:30 AM EST Appointment [place] [phone] 12/13/2024 1:00 PM EST Office [place] [phone] Kiet Pardo MD [facility] [place] [address] documented as of this encounter Visit Diagnoses Not on filedocumented in this encounter Care Teams Blasting Helper Relationship Specialty Start Date End Date Danya Acuna, BRIGHT [address] [place] [address] PCP - General Family Medicine 02/19/21 08/12/22 documented as of this encounter
--- OUTSIDE RECORDS SUMMARY | 2024-09-14 13:04 | XMS_ITS | Encounter Summary ---
Author Organization [facility] [place] [address] Care Team Providers Care Systems Protection Technician Name Role Phone Danya Acuna APRN Primary Care Provider [phone] Reason for Visit * Reason Comments Medication Refill Encounter Details Date Type Department Care Team (Late st Contact Info) Description 06/09/2022 [place] [address] Kiet Pardo MD [facility] [place] [address] Social History Tobacco Use Types Packs/Day Years [...] 11:30 AM EST Office Visit Dermatology at [facility] [address] [place] [address] Jo Ordaz MD [facility] [place] [address] 12/13/2024 11:30 AM EST Appointment Pulmonology at [place] [phone] 12/13/2024 1:00 PM EST Office Visit Rheumatology at [place] [phone] Kiet Pardo MD [facility] [place] [address] documented as of this encounter Visit Diagnoses Not on filedocumented in this encounter Care Teams Systems Protection Technician Relationship Specialty Start Date End Date Danya Acuna APRN [address] [place] [address] PCP - General Family Medicine 02/19/21 08/12/22 documented as of this encounter
--- OUTSIDE RECORDS SUMMARY | 2024-09-14 13:04 | XMS_ITS | Encounter Summary ---
[place] [address] Care Team Providers Care Steamboat Inspector Name Role Phone Indraeun Danya Dinora NOVOA Primary Care Provider [phone] Reason for Referral * Diagnostic Test (Routine) - Closed Specialty Diagnoses / Procedures Referred By Contac t Referred To Contact Radiology Diagnoses Desmoid fibromatosis Procedures MRI Upper Extremity Non Joint wwo Contrast Solomon Quiros MD [facility] [place] [address] [place] [address] Referral ID Status Reason Start Date Expiration Date V isits Requested Visits Authorized [id number] Closed Specialty Service Requested 04/05/2021 10/06/2022 1 1 Reason for Visit * Diagnostic Test (Routine) - Closed Specialty Diagnoses / Procedures Referred By Contac t Referred To Contact Radiology Diagnoses Desmoid fibromatosis Procedures MRI Upper Extremity Non Joint wwo Contrast Solomon Quiros MD [facility] [place] [address] [place] [address] Referral ID Status Reason Start Date Expiration Date V isits Requested Visits Authorized [id number] Closed Specialty Service Requested 04/05/2021 10/06/2022 1 1 Encounter Details Date Type Department Care Team (Latest Contact Info) Description 07/20/2022 8:52 AM EDT - 07/20/2022 11:59 PM EDT Hospital Encounter MRI at [facility] [place] [address] Solomon Quiros MD [facility] [place] [address] Desmoid fibromatosis Discharge Disposition: Home Social History [...] 2.5 % Ointment as needed. 04/25/2022 zoledronic taud-evxccnpu-plmza (zoledronic Acid) 5 mg/100 mL infusion .every [...] % Ointment Twice a day 02/01/2021 02/21/2024 esomeprazole (NexIUM) 40 mg Capsule, Delayed Release(E.C.)Indicatio [...] Reported on 03/29/2017 60 tablet 04/20/2022 03/29/2023 sildenafiL (Revatio) 20 mg Tablet TAKE TWO TABLETS BY MOUTH EVERY MORNING, ONE TABLET EVERY AFTERNOON, AND TWO TABLETS EVERY EVENING 150 tablet 5 01/27/2022 09/01/2022 silver sulfADIAZINE (Silvadene) 1 % Cream Apply topically daily. 50 g 09/24/2021 05/01/2023 fosinopriL (MONOPRIL) 20 mg TabletIndications:Jaimie davila,CKD (chronic kidney disease) stage 3, GFR 30-59 ml/min TAKE 1 TABLET BY MOUTH EVERY DAY 90 tablet 3 09/14/2021 09/15/2022 documented as of this encounter Plan of Treatment Upcoming Encounters Date Type Department Care Team (Late st Contact Info) Description 10/07/2024 11:30 AM EST Office Visit Dermatology at [facility] [address] [place] [phone] Jo Ordaz MD [facility] [place] [place] [address] 12/13/2024 11:30 AM EST App[place]ment [place] [address] 12/13/2024 1:00 PM EST Office [place] [address] Kiet Pardo MD [facility] [place] [address] documented as of this encounter Procedures Procedure Name Priority Date/Time Associated Diagnosis Comments MRI UPPER EXTREMITY NON JOINT WITH/WO CONTRAST Routine 07/20/2022 10:49 AM EDT Desmoid fibromatosis documented in this encounter Results * MRI Upper Extremity Non Joint wwo Contrast (07/20/2022 10:49 AM EDT) Anatomical Region Laterality Modality Shoulder, Arm, Elbow, Forearm, Wrist, Hand Magnetic Resonance Impressions 07/20/2022 2:40 PM EDT 1. ??Linear areas of enhancement superficial to the latissimus dorsi muscles, unchanged since 2020 is favored to represent postsurgical change. However, given the indolent nature of desmoid lesions, cannot exclude residual tumor. No soft tissue mass or soft tissue nodule. No new masslike or nodular enhancement. I have personally reviewed the image(s) and the resident's interpretation and agree with the findings, Sophie Hdz MD at 07/20/2022 2:40 PM Thank you for letting us participate in the care of this patient. ??If you are a health care provider and have any questions regarding this report, please contact the number below. ??For patients who have questions please contact the health farm or ranch animal caretaker that requested your imaging first. ? Narrative 07/20/2022 2:40 PM EDT EXAMINATION: MRI UPPER EXTREMITY NON JOINT WWO CONTRAST CLINICAL HISTORY: Hx of desmoid of back (Excised 07/09/2020) TECHNIQUE: MRI of the posterior chest wall before and after the administration of 13 mL of Dotatem. Sequences include axial T1, axial T2 with fat saturation, axial vibe with fat saturation pre and postcontrast, sagittal T1, coronal STIR, coronal and sagittal vibe with fat saturation postcontrast, dynamic contrast enhancement sequences in the coronal plane were also performed.. COMPARISON: MR of the upper back 03/24/2021, 05/12/2020, 01/25/2019, 10/06/2017, 02/17/2015. FINDINGS: Incomplete fat saturation. Several markers along the upper back are reportedly at the margins of the surgical scars. Similar appearance of postsurgical change of the right upper posterior chest wall at the site of tumor resection. There is some architectural distortion at that site, indicating some scarring. There is associated susceptibility artifact on the vibe sequences, consistent with postsurgical change. There is no recurrent nonadipose tissue in the resection bed. No nodular nonadipose tissue in the resection bed. No nodular or masslike enhancement in the right upper back resection bed. ??Interval resolution of previously noted tiny postsurgical fluid at the resection bed. Similar MR appearance of T1 hypointense, T2 hyperintense plaque-like band of nonadipose tissue in the subcutaneous fat the medial left upper back with associated architectural distortion. No associated enhancement. No nodular or masslike enhancement. No nodular or masslike soft tissue at this site. Normal symmetric bulk and signal of the visualized muscles of the bilateral upper back. No appreciable bone marrow replacing lesion or focal enhancing bone marrow lesion in the visualized bony anatomy. There are linear hyperintense and enhancing linear bands in the subcutaneous tissues of the left upper and right upper back (for example axial series 14, image 52 and 76), superficial to the latissimus dorsi muscles, stable when compared to study from 03/24/2021. No other areas of abnormal enhancement. No soft tissue mass. Normal muscle bulk and signal. Normal marrow signal. Imaged portions of the chest and upper abdomen are unremarkable. Procedure Note Sophie Hdz MD - 07/20/2022 EXAMINATION: MRI UPPER EXTREMITY NON JOINT WWO CONTRAST CLINICAL HISTORY: Hx of desmoid of back (Excised 07/09/2020) TECHNIQUE: MRI of the posterior chest wall before and after the administration of 13mL of Dotatem. Sequences include axial T1, axial T2 with fat saturation, axialvibe with fat saturation pre and postcontrast, sagittal T1, coronal STIR,coronal and sagittal vibe with fat saturation postcontrast, dynamic contrastenhancement sequences in the coronal plane were also performed.. COMPARISON: MR of the upper back 03/24/2021, 05/12/2020, 01/25/2019, 10/06/2017,02/17/2015. FINDINGS: Incomplete fat saturation. Several markers along the upper back are reportedly at the margins ofthe surgical scars. Similar appearance of postsurgical change of the right upper posteriorchest wall at the site of tumor resection. There is some architecturaldistortion at that site, indicating some scarring. There is associated susceptibilityartifact on the vibe sequences, consistent with postsurgical change. There is no recurrent nonadipose tissue in the resection bed. No nodular nonadiposetissue in the resection bed. No nodular or masslike enhancement in the rightupper back resection bed. Interval resolution of previously noted tiny postsurgicalfluid at the resection bed. Similar MR appearance of T1 hypointense, T2 hyperintense plaque-like bandof nonadipose tissue in the subcutaneous fat the medial left upper backwith associated architectural distortion. No associated enhancement. No nodularor masslike enhancement. No nodular or masslike soft tissue at this site. Normal symmetric bulk and signal of the visualized muscles of thebilateral upper back. No appreciable bone marrow replacing lesion or focal enhancing bonemarrow lesion in the visualized bony anatomy. There are linear hyperintense and enhancing linear bands in thesubcutaneous tissues of the left upper and right upper back (for example axial , image 52 and 76), superficial to the latissimus dorsi muscles, stablewhen compared to study from 03/24/2021. No other areas of abnormal enhancement.No soft tissue mass. Normal muscle bulk and signal. Normal marrow signal. Imaged portions of the chest and upper abdomen are unremarkable. IMPRESSION 1. Linear areas of enhancement superficial to the latissimus dorsimuscles, unchanged since 2020 is favored to represent postsurgical change. However,given the indolent nature of desmoid lesions, cannot exclude residual tumor. No soft tissue mass or soft tissue nodule. No new masslike or nodular enhancement. I have personally reviewed the image(s) and the resident's interpretationand agree with the findings, Sophie Hdz MD at 07/20/2022 2:40 PM Thank you for letting us participate in the care of this patient. If youare a health care provider and have any questions regarding this report,please contact the number below. For patients who have questions please contactthe health farm or ranch animal caretaker that requested your imaging first. Solomon Quiros MD IMG MRI ORDERABLES documented in this encounter Visit [...] Intravenous, ONCE PRN, 1 dose, Starting on Mon07/20/22 at 1045, Until Mon07/20/22 at 1034, Per Protocol, Radiology Contrast, Routine Given 07/20/2022 10:34 AM EDT 13 mLs documented in this encounter Care Teams Steamboat Inspector Relationship Specialty Start Date End Date Danya Acuna, SAS PROGRAMMER [address] [place] [address] PCP - General Family Medicine 02/19/21 08/12/22 documented as of this encounter
--- OUTSIDE RECORDS SUMMARY | 2024-09-14 13:04 | XMS_ITS | Encounter Summary ---
Author Organization [facility] [place] [address] Care Team Providers Care Roll Wrapper Name Role Phone Danya Acuna BRIGHT Primary Care Provider [phone] Encounter Details Date Type Department Care Team (Late st Contact Info) Description 05/26/2022 Orders Only [place] [address] Karla Bailey RN Stage 3a chronic kidney disease Social History Tobacco Use Types Packs/Day Years [...] 11:30 AM EST Office Visit Dermatology at [facility] [address] [place] [address] Jo Ordaz MD [facility] [place] [address] 12/13/2024 11:30 AM EST Appointment [place] [address] 12/13/2024 1:00 PM EST Office [place] [address] Kiet Pardo MD [facility] [place] [address] documented as of this encounter Results * Albumin Level (05/31/2022 10:02 AM EDT) Pathologist [facility] Albumin 4.7 3.2 - 5.2 g/dL [facility] Blood 05/31/2022 10:0 2 AM EDT 05/31/2022 10:15 AM EDT Narrative Resulting Agency Comment Spec In Lab Nguyễn Underwood MD CHEMISTRY ORDERABLES [facility] [place] [address] * (ABNORMAL) Basic Metabolic Panel (non-fasting) (05/31/2022 10:02 AM EDT) [facility] Glucose 92 65 - 199 mg/dL [facility] Comment:Diabetes: >=200 mg/d L plus symptoms Blood Urea Nitrogen 20(H) 8 - 18 mg/dL [facility] Creatinine 1.01 0.70 - 1.20 mg/dL [facility] Sodium 141 135 - 145 mmol/L [facility] Potassium 5.1(H) 3.5 - 5.0 mmol/L [facility] Comment: Please note: ??Patients with WBC >100,000 may have falsely elevated Potassium levels. ??For accurate Potassium quantification in these patients send serum separator tube (gold top) for subsequent determinations. ??Contact the Clinical Chemistry Laboratory if there are any questions. Chloride 106 98 - 107 mmol/L [facility] Carbon Dioxide 24 22 - 31 mmol/L [facility] Anion Gap 11 5 - 15 mmol/L [facility] Calcium 9.5 8.5 - 10.5 mg/dL [facility] Est Glomerular Filtration Rate 63 >=60 mL/min/1. 73 m?? [facility] Comment: This patient's estimated [...] and symptoms in addition to eGFR. Blood 05/31/2022 10:0 2 AM EDT 05/31/2022 10:15 AM EDT Narrative Resulting Agency Comment Spec In Lab Nguyễn Underwood MD CHEMISTRY ORDERABLES Performing Organization Address City/[facility]/ZIP Co de Phone Number [facility] [place] [address] * (ABNORMAL) Protein/Creatinine Ratio, urine (05/31/2022 9:58 AM EDT) Creatinine, Urine 30 mg/dL [facility] Protein, Urine 13(H) 0 - 12 mg/dL [facility] Protein / Creatinine Ratio, Urine 0.4 ratio [facility] Urine 05/31/2022 9:58 AM EDT 05/31/2022 10:05 AM EDT Narrative Resulting Agency Comment Spec In Lab Nguyễn Underwood MD URINE ORDERABLES [facility] [place] [address] documented in this encounter Visit Diagnoses Diagnosis Stage 3a chronic kidney disease documented in this encounter Care Teams Roll Wrapper Relationship Specialty Start Date End Date Danya Acuna APRN [address] [place] [address] PCP - General Family Medicine 02/19/21 08/12/22 documented as of this encounter
--- OUTSIDE RECORDS SUMMARY | 2024-09-14 13:04 | XMS_ITS | Encounter Summary ---
[place] [address] Care Team Providers Care Chief Of Production Name Role Phone Armand Danya Dinora NOVOA Primary Care Provider [phone] Encounter Details Date Type Department Care Team (Late st Contact Info) Description 12/09/2021 Telephone [place] [phone] ArchieFebruary Social History Tobacco Use Types Packs/Day Years [...] encounter Miscellaneous Notes * Telephone Encounter - ArchieFebruary - 12/09/2021 8:42 AM EST [place] [id number] Diagnosis/Indication: F/up Barrx ablation 1. Have you ever had a/an Upper Endoscopy before? Yes: Date 10/12/21 If yes, did you have any problems with the procedure? No What type of sedation was used: General Anesthesia 2. Do you take any blood thinners or have you been diagnosed with a bleeding disorder that increases your risk of bleeding with procedures? No 3. Do you have a Pacemaker or Defibrillator device? No 4. Are you a diabetic? No 5. Do you have any Allergies to Eggs, Latex or Medications? No 6. Do you take any Oral Iron Supplements (Including multi-vitamins)? No 7. Do you have a history of three or more abdominal surgeries? No 8. Have you had a problem with sedation or anesthesia? No 9. Do you use a c-pap machine or oxygen tank? Neither 10. Do you take prescription narcotic pain medications, including suboxone or methodone? No 11. Do you have a preference regarding the gender of your provider? Yes: Male 12. Is there any other information you would like to us to note for the provider and nursing team who will perform your case? No 13. Say to patient: You must have a responsible constitution party who will drive you to your procedure, stay [place] for the entire duration of your procedure, and drive you home from your procedure? *Please Verify the height and weight, and adjust if height and/or weight have changed* Estimated body mass index is 21.94 kg/m?? as calculated from the following: Height as of 10/12/21: 168.9 cm (5' 6.5). Weight as of 10/12/21: 62.6 kg (138 lb). Age:61 y.o. documented in this encounter Plan of Treatment Upcoming Encounters Date Type Department Care Team (Late st Contact Info) Description 10/07/2024 11:30 AM EST Office Visit Dermatology at [facility] [address] [place] [address] Jo Ordaz MD [facility] [place] [address] 12/13/2024 11:30 AM EST [place] [phone] 12/13/2024 1:00 PM EST Office [place] [address] Kiet Pardo MD [facility] [place] [address] documented as of this encounter Visit Diagnoses Not on filedocumented in this encounter Care Teams Chief Of Production Relationship Specialty Start Date End Date Danya Acuna APRN [address] [place] [address] PCP - General Family Medicine 02/19/21 08/12/22 documented as of this encounter
--- OUTSIDE RECORDS SUMMARY | 2024-09-14 13:04 | XMS_ITS | Encounter Summary ---
Author Organization [facility] [place] [address] Care Team Providers Care Semiconductor Wafers Tester Name Role Phone Danya Acuna APRN Primary Care Provider [phone] Encounter Details Date Type Department Care Team (Late st Contact Info) Description 10/18/2021 [place] [address] [facility] [place] [address] Social History Tobacco Use Types Packs/Day Years [...] 11:30 AM EST Office Visit Dermatology at [facility] [address] [place] [address] [facility] [place] [address] 12/13/2024 11:30 AM EST Appointment Pulmonology at [place] [phone] 12/13/2024 1:00 PM EST [place] [address] [facility] [place] [address] documented as of this encounter Visit Diagnoses Not on filedocumented in this encounter Care Teams Semiconductor Wafers Tester Relationship Specialty Start Date End Date Danya Acuna APRN [address] [place] [address] PCP - General Family Medicine 02/19/21 08/12/22 documented as of this encounter
--- OUTSIDE RECORDS SUMMARY | 2024-09-14 13:04 | XMS_ITS | Encounter Summary ---
[place] [address] Care Team Providers Care Shirring Machine Operator Automatic Name Role Phone IndraDanya haq Dinora NOVOA Primary Care Provider [phone] Encounter Details Date Type Department Care Team (Late st Contact Info) Description 04/20/2022 Telephone Nephrology [place] [phone] Marquita Cam Social History Tobacco Use Types [...] * Telephone Encounter - Marquita Cam - 04/20/2022 9:53 AM EDT LM for pt to call and schedule follow up appointment in CKD clinic documented in this encounter Plan of Treatment Upcoming Encounters Date Type Department Care Team (Late st Contact Info) Description 10/07/2024 11:30 AM EST Office Visit Dermatology at [facility] [address] [place] [address] Jo Ordaz MD [facility] [place] [address] 12/13/2024 11:30 AM EST Appointment [place] [phone] 12/13/2024 1:00 PM EST Office [place] [phone] Kiet Pardo MD [facility] [place] [address] documented as of this encounter Visit Diagnoses Not on filedocumented in this encounter Care Teams Shirring Machine Operator Automatic Relationship Specialty Start Date End Date Danya Acuna, AGRICULTURAL AND FORESTRY SUPERVISOR [address] [place] [address] PCP - General Family Medicine 02/19/21 08/12/22 documented as of this encounter
--- OUTSIDE RECORDS SUMMARY | 2024-09-14 13:04 | XMS_ITS | Encounter Summary ---
[place] [address] Care Team Providers Care Garment Sorter Name Role Phone Danya Acuna BRIGHT Primary Care Provider [phone] Encounter Details Date Type Department Care Team (Late st Contact Info) Description 04/06/2022 2:22 PM EDT Anesthesia Event [place] [address] Aylin Watkins MD [facility] [place] [address] Sushila Sweeney CRNA [facility] [place] [address] Anesthesia Record Procedure Summary Procedure Name Responsible Anesthesiologist Anesthesia Start Time Anesthesia Stop Time EGD WITH BIOPSY (WRVU 2.39) (Trunk) Aylin Watkins MD 04/06/22 1422 04/06/22 1443 Events Date Time Event Comment 04/06/2022 1419 1422 AN Verify 1422 Start 1422 An Start Data 1427 An Induction 1443 Anesthesia Ready 1443 an stop data 1443 Recovery or ICU Handoff Lorri ent care was transferred to the destination unit staff after review of the patient's medical history, current anesthetic/surgical status and plan, according to the Provider Handoff Checklist. 1443 Stop Meds Name Total Midazolam 2 mg IV Lidocaine 60 mg Propofol 100 mg Propofol INF 125.2 mg Dexmedetomidine 12 mcg Lactated Ringers 0 mL * Agents Name O2 Auxiliary Flowmeter 1 * Blood No blood administrations on file. Lines, Drains, and Airways Type Details Placement Removal Incision arm; 07/18/22 (LDA cleanup utility RA#[id number]); 1715 (LDA cleanup utility RA#[id number]) 04/08/16 1242 by 07/18/22 1715 by Dena Armendariz Incision 10/07/16; 1500; arm; 07/18/22 (LDA cleanup utility RA#[id number]); 1715 (LDA cleanup utility RA#[id number]) 10/07/16 1500 by Jessica Cisneros RN 07/18/22 1715 by Dena Armendariz Incision 06/22/20; 0808; back ; 07/18/22 (LDA cleanup utility RA#[id number]); 1715 (LDA cleanup utility RA#[id number]) 06/22/20 0808 by Corinna Bundy RN 07/18/22 1715 by Dena Armendariz documented in this encounter Social History Tobacco [...] OR Notes * Anesthesia Postprocedure Evaluation - Aylin Watkins MD - 04/06/2022 3:58 PM EDT Department of Anesthesiology Post-procedure Note Patient: Amber Wells Procedure Summary Date: 04/06/22 Room / Location: [facility] 2 / [facility] Anesthesia Start: 1422 Anesthesia Stop: 1443 Procedure: EGD WITH BIOPSY (WRVU 2.49) (N/A Trunk) 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) Surgeons: Andrew Berger MD Responsible Provider: Aylin Watkins MD Anesthesia Type: MAC ASA Status: 3 All Anesthesia Providers: Anesthesiologist: Aylin Watkins MD INTERNET SALES MANAGER: Sushila Sweeney CRNA Vitals Value Taken Time BP 109/75 04/06/22 1500 Temp Pulse Resp 14 04/06/22 1452 SpO2 100 % 04/06/22 1520 Pain Level 0 04/06/22 1452 Patient Location: PACU/[facility] Level of Consciousness: Awake and Alert Pain Management: Satisfactory Analgesia PONV: None Cardiovascular Status: At Baseline and Hemodynamically Stable Respiratory Status: At Baseline and Room Air Postoperative Fluid Status: Intravascular EUvolemia Possible Anesthetic Complications: NONE apparent at time of evaluation Final Primary Anesthesia Type: MAC (The anesthetic type performed was the same as planned.) Comments: AYLIN WATKINS MD * Anesthesia Preprocedure Evaluation - Aylin Watkins MD - 04/06/2022 2:17 PM EDT Pre-Anesthesia Evaluation for: Amber Wells a 61 y.o. female. Procedure(s): EGD, UPPER GI ENDOSCOPY [...] dialysis for 2 months in 2009 ??? 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 PRO COLONOSCOPY, DIAGNOSTIC N/A 01/31/2019 COLONOSCOPY, DIAGNOSTIC performed by Andrew Berger MD at [facility] END[facility]COPY ? ? PRO EDG FLEXIBLE TRANSORAL ABLATE TUMOR POLYP/LESION W/DILATION & WIRE N/A 10/12/2021 EGD, TRANSORAL; WITH ABLATION OF TUMOR(S), POLYP(S), OR OTHER LESION(S) (WRVU 4.26) performed by Andrew Berger MD at [facility] ? ? PRO EDG FLEXIBLE TRANSORAL ABLATE TUMOR POLYP/LESION W/DILATION & WIRE N/A 01/12/2022 EGD, TRANSORAL; WITH ABLATION OF TUMOR(S), POLYP(S), OR OTHER LESION(S) (WRVU 4.26) performed by Andrew Berger MD at [facility] ??? PRO ENDOSCOPIC US EXAM, ESOPH N/A 03/29/2016 UPPER EUS- ENDOSCOPIC ULTRASOUND performed by Darryl Ash MD at [facility] ??? PRO RAD RESECT/TUMOR, SOFT TISSUE BACK/FLANK, 5CM OR GREATER Right 06/22/2020 RADICAL RESECTION TUMOR BACK OR FLANK; 5 CM OR GREATER (WRVU 22.55) performed by Solomon Quiros MD at [facility] ??? PRO REBL VES VEIN GRFT, UP EXTREM Left 04/08/2016 REPAIR BLOOD VESSEL WITH VEIN GRAFT, UPPER EXTREMITY performed by Andre Marroquin MD at [facility] ??? PRO UPPER GI ENDOSCOPY, BIOPSY N/A 03/29/2016 UPPER GASTROINTESTINAL ENDOSCOPY,WITH BIOPSY SINGLE OR MULTIPLE performed by Darryl Ash MD at [facility] ??? PRO UPPER GI ENDOSCOPY, BIOPSY N/A 01/10/2018 EGD WITH BIOPSY (WRVU 2.49) performed by Andrew Berger MD at [facility] ??? PRO UPPER GI ENDOSCOPY, BIOPSY N/A 08/23/2021 EGD WITH BIOPSY (WRVU 2.49) performed by Andrew Berger MD at [facility] ??? PRO UPPER GI ENDOSCOPY, DIAGNOSTIC N/A 08/23/2021 EGD, UPPER GI ENDOSCOPY performed by Andrew Berger MD at [facility] ??? PRO VEIN BYPASS GRAFT, BRACHIAL ULNAR OR RADIAL Right 10/07/2016 @BYPASS GRAFT, BRACHIAL-ULNAR OR RADIAL W\VEIN (VASC) performed by Andre Marroquin MD at [facility] ??? 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 Smoking status: Former Smoker Packs/day: 1.00 Years: 10.00 Pack years: 10.00 Types: Cigarettes Quit date: 03/30/1988 Years since quittin.0 ??? Smokeless tobacco: Never Used ??? Tobacco comment: never vape Substance Use Topics ??? Alcohol use: Not Currently Comment: holidays Social History Substance and Sexual Activity Drug Use No Allergies Allergen Reactions ??? Other [Unclassified Drug] Lobster--weird sensation ??? Shellfish Derived Medications: MAR and/or home medications have been reviewed. Physical Exam: Preprocedure Vitals Current as of 04/06/22 1417 BP: 152/73 Pulse: 66 Resp: 16 SpO2: 99 Temp: 36.8 ??C (98.2 ??F) Height: 170.2 cm (5' 7) (04/06/22) Weight: 62.6 kg (138 lb) (04/06/22) BMI: 21.61 IBW: 61.6 kg (135 lb 13.5 oz) Last edited 04/06/22 1311 by HS Airway Assessment: Mallampati: II TM distance: >3 FB Neck ROM: full Cardiovascular Assessment: Rhythm: regular Pulmonary Assessment: unlabored breathing Dental Assessment: - normal exam Misc Assessment: IV access: Peripheral line Last Filed Perioperative Cognitive Screening None Anesthesia Plan: ASA 3 MAC, with a(n) intravenous induction 61 yo F for EGD to assess Joseph's ablation. Scleroderma with CKD. Anxiety. OK with prior anesthesia. NPO. Propofol, std monitors. Region - Other Informed Consent: Anesthetic plan and risks discussed with patient. Plan discussed with INTERNET SALES MANAGER. Anesthesia Screening documented in this encounter Plan of Treatment Upcoming Encounters Date Type Department Care Team (Late st Contact Info) Description 10/07/2024 11:30 AM EST Office Visit Dermatology at [facility] [address] [place] [address] Jo Ordaz MD [facility] [place] [place] [address] 12/13/2024 11:30 AM EST Appointment [place] [address] 12/13/2024 1:00 PM EST Office [place] [address] Kiet Pardo MD [facility] [place] [address] documented as of this encounter Visit Diagnoses Not on filedocumented in this encounter Administered Medications Inactive Administered Medications - up to 3 most recent administrations Medication Order MAR Action Action Date Dose Rate Site dexmedetomidine (Precedex) (4 mcg/mL) bolus injection (Anesthsia) Intravenous, PRN, Starting on Mon04/06/22 at 1425, Until Mon04/06/22 at 1443, Anesthesia Intra-op, Routine Given 04/06/2022 2:27 PM EDT 4 mcg Given 04/06/2022 2:25 PM EDT 8 mcg lactated ringers infusion Intravenous, CONTINUOUS PRN, Starting on Mon04/06/22 at 1422, Until Mon04/06/22 at 1443, Anesthesia Intra-op New Bag 04/06/2022 2:22 PM EDT lidocaine (pf) (Xylocaine) (20 mg/mL) 2% injection syringe Intravenous, PRN, Starting on Mon04/06/22 at 1432, Until Mon04/06/22 at 1443, Anesthesia Intra-op, Routine Given 04/06/2022 2:32 PM EDT 60 mg midazolam (pf) (Versed) (1 mg/mL) multi-dose injection Intravenous, PRN, Starting on Mon04/06/22 at 1422, Until Mon04/06/22 at 1443, Anesthesia Intra-op, Routine Given 04/06/2022 2:22 PM EDT 2 mg propofoL (Diprivan) (10 mg/mL) infusion Intravenous, CONTINUOUS PRN, Starting on Mon04/06/22 at 1432, Until Mon04/06/22 at 1443, Anesthesia Intra-op, Routine New Bag 04/06/2022 2:32 PM EDT 200 mcg/kg/min 75.12 mL/hr propofoL (Diprivan) 10 mg/mL bolus injection (Anesthesia) Intravenous, PRN, Starting on Mon04/06/22 at 1432, Until Mon04/06/22 at 1443, Anesthesia Intra-op Given 04/06/2022 2:32 PM EDT 100 mg documented in this encounter Care Teams Garment Sorter Relationship Specialty Start Date End Date Danya Acuna APRN [address] [place] [address] PCP - General Family Medicine 02/19/21 08/12/22 documented as of this encounter
--- OUTSIDE RECORDS SUMMARY | 2024-09-14 13:04 | XMS_ITS | Encounter Summary ---
Author Organization [facility] Address [facility] [place] [address] Care Team Providers Care Client Operations Manager Name Role Phone Danya Acuna BRIGHT Primary Care Provider [phone] Encounter Details Date Type Department Care Team (Latest Contact Info) Description 04/06/2022 11:54 AM EDT - 04/06/2022 3:47 PM EDT Hospital Encounter [place] [phone] Andrew Berger MD [facility] [place] [address] Discharge Disposition: Home Social History Tobacco Use [...] Sign Reading Time Taken Comments Blood Pressure 109/75 04/06/2022 3:00 PM EDT Pulse 66 04/06/2022 1:11 PM EDT Temperature 36.8 ??C (98.2 ??F) 04/06/2022 1:11 PM ED T Respiratory Rate 14 04/06/2022 2:52 PM EDT Oxygen Saturation 100% 04/06/2022 3:20 PM EDT Inhaled Oxygen Concentration - - [...] better as expected. Monday-Monday Same Day Endo [phone] Otherwise contact [phone] and ask to speak to the bottom liquor attendant pediatric nurse practitioner Follow-up care is a cardenas part of [...] Dispensed Refills Start Date End Date zoledronic klir-orhncxio-dtqpw (zoledronic Acid) 5 mg/100 mL infusion .every [...] Berger MD - 04/06/2022 2:32 PM EDT [facility] Operative Note Patient Name: Amber Wells : [id number] MR#: [id number] Case Date: 04/06/2022 Surgeon: Surgeon(s) and Role: [...] 11:30 AM EST Office Visit Dermatology at [address] [place] [address] Jo Ordaz MD [facility] [place] [address] 12/13/2024 11:30 AM EST Appointment [place] [address] 12/13/2024 1:00 PM EST Office [place] [phone] Kiet Pardo MD [facility] [place] [address] documented as of this encounter Procedures Procedure Name Priority Date/Time Associated Diagnosis Comments SURGICAL PATHOLOGY REPORT Routine 04/06/2022 2:44 PM EDT SPECIMEN TO PATHOLOGY Routine 04/06/2022 2:44 PM EDT SPECIMEN TO PATHOLOGY Routine 04/06/2022 2:44 PM EDT Upper Gi Endoscopy, Biopsy ([id number]) 04/06/2022 2:22 PM EDT Joseph's esophagus with high grade dysplasia documented in this encounter Results * Surgical Pathology Report (04/06/2022 2:44 PM EDT) Final Diagnosis ? Location: 4T; EA13; A The signing [...] Josie Verified: ??04/14/2022 12:32 ??Pathologist Performed at: ??-[facility] Dept. of Pathology, [place], [place] ?Surgical Pathology DIAGNOSIS A - Z -line at 39 cm, biopsy (Multiple): - ??Squamocolumnar junctional mucosa (cardia type) with mild chronic inflammation. There is no evidence of intestinal metaplasia. B - Distal esophagus at 38 cm, biopsy (Multiple): - ??Squamous mucosa negative for diagnostic abnormality. Electronically signed by: ?Brandno Urrutia MD Verified: ??04/11/2022 12:43 ??Pathologist Performed at: ??-[facility] Dept. of Pathology, [place], [place] SPECIMEN(S) SUBMITTED A - Z -line [...] labeled B1. ??sns 04/14/2022 12:[address] [facility] GI Biopsy 04/06/2022 2:44 PM EDT 04/06/2022 2:44 PM EDT GI Biopsy 04/06/2022 2:44 PM EDT 04/06/2022 2:44 PM EDT Consult Case 04/06/2022 2:44 PM EDT 04/06/2022 2:44 PM EDT Andrew Berger MD PATHOLOGY/CYTOLOGY O YVETTE Performing Organization Address [facility]/[place] [address] * Specimen to Pathology (04/06/2022 2:44 PM EDT) AP Specimen 04/06/2022 2:44 PM EDT 04/06/2022 2:[address] [facility] - 04/06/2022 2:44 PM EDT Specimen requisition ordered. ??Separate Pathology report to follow Andrew Berger MD PATHOLOGY/CYTOLOGY O YVETTE Performing Organization Address City/[facility]/ZIP Co de Phone Number [facility] [place] [address] * Specimen to Pathology (04/06/2022 2:44 PM EDT) AP Specimen 04/06/2022 2:44 PM EDT 04/06/2022 2:[address] [facility] - 04/06/2022 2:44 PM EDT Specimen requisition ordered. ??Separate Pathology report to follow Andrew Berger MD PATHOLOGY/CYTOLOGY O YVETTE Performing Organization Address City/[facility]/ZIP Co de Phone Number [facility] [place] [address] documented in this encounter Visit Diagnoses Not on filedocumented in this encounter Active and Recently Administered Medications Care Teams Client Operations Manager Relationship Specialty Start Date End Date Danya Acuna APRN [address] [place] [address] PCP - General Family Medicine 02/19/21 08/12/22 documented as of this encounter
--- OUTSIDE RECORDS SUMMARY | 2024-09-14 13:04 | XMS_ITS | Encounter Summary ---
Author Organization [facility] Address [facility] [place] [address] Care Team Providers Care Lunchroom Worker Name Role Phone Armand Danya Dinora NOVOA Primary Care Provider [phone] Reason for Visit * Treatment/Therapy Plan Authorization (Routine) - Closed Specialty Diagnoses / Procedures Referred By Wander hernandez Referred To Contact Diagnoses Scleroderma Procedures TC ZOLEDRONIC ACID, 1 MG, INJECTION inf [id number] - RECANASTASIYAT Kiet Pardo MD [facility] [place] [address] [facility] Med Infusion [address] [place] [phone] Referral ID Status Reason Start Date Expiration Date Visits Re quested Visits Authorized [id number] Closed 11/20/2021 11/19/2022 99 99 Encounter Details Date Type Department Care Team (Latest Contact Info) Description 12/20/2021 3:09 PM EST - 12/20/2021 11:59 PM EST Hospital En[place] [address] Scleroderma Discharge Disposition: Home Social [...] Sign Reading Time Taken Comments Blood Pressure 144/75 12/20/2021 3:10 PM EST Pulse 84 12/20/2021 3:10 PM EST Temperature 36.7 ??C (98 ??F) 12/20/2021 3:10 PM EST Respiratory Rate 17 12/20/2021 3:10 PM EST Oxygen Saturation 98% 12/20/2021 3:10 PM EST Inhaled Oxygen Concentration - - Weight 63.6 kg (140 lb 3.2 oz) 12/20/2021 3:10 P M EST Height - - Body Mass Index 22.29 10/12/2021 9:23 AM EST documented in this encounter Medications at Time of Discharge Medication Sig Dispensed Refills Start Date End Date zoledronic enwl-srbwmubo-dnyni (zoledronic Acid) 5 mg/100 mL infusion .every [...] to 10 days. 200 mL 01/12/2022 01/22/2022 diphenhydrAMINE/alumi num-magnesium hydroxide with simethicone/lidocaine (BMX) (6.67 mg-0.83 mg-13.33 mg-1.33 mg/mL) oral liquid Take 5 mLs by mouth 4 times daily as needed for up to 10 days. 200 mL 01/12/2022 01/12/2022 oxyCODONE (Roxicodone) 5 mg/5 mL Solution Take 5-10 mLs by mouth every 4 hours as needed for Pain. 200 mL 01/12/2022 01/12/2022 oxyCODONE (Roxicodone) 5 mg/5 mL Solution Take 5-10 mLs by mouth every 4 hours as needed for Pain. 200 mL 01/12/2022 05/31/2022 diphenhydrAMINE/alumi num-magnesium hydroxide with simethicone/lidocaine (BMX) (6.67 mg-0.83 mg-13.33 mg-1.33 mg/mL) oral liquid Take 5 mLs by mouth 4 times daily as needed. 200 mL 10/12/2021 01/12/2022 oxyCODONE (Roxicodone) 5 mg/5 mL Solution Take 5-10 mLs by mouth every 4 hours as needed for Pain. 200 mL 10/12/2021 01/12/2022 diphenhydrAMINE/alumi num-magnesium hydroxide with simethicone/lidocaine (BMX) (6.67 mg-0.83 mg-13.33 mg-1.33 mg/mL) oral liquid Take 5 mLs by mouth 4 times daily as needed. 200 mL 10/12/2021 01/12/2022 amLODIPine (Norvasc) 5 mg Tablet Take 1 [...] times daily. 180 capsule 3 07/13/2021 07/04/2022 Lactobacillus acidophilus (PROBIOTIC ORAL) Take by mouth. sildenafiL (Revatio) 20 mg Tablet TAKE TWO [...] 12/11/2018 04/20/2022 documented as of this encounter Progress Notes * Alisia Spangler, [place] - 12/20/2021 3:37 PM EST INFUSION THERAPY ADMINISTRATION NOTES DIAGNOSIS: The encounter diagnosis was Scleroderma. Osteoporosis REASON FOR VISIT: Reclast infusion Allergies Allergen Reactions ??? Other [Unclassified Drug] Lobster--weird sensation ??? Shellfish Derived SUBJECTIVE: offers no complaints. OBJECTIVE: Last received Reclast on 12/14/2020 and tolerated well. Reiterated expectations during visit. VITAL SIGNS: BP 144/75 (BP Location (NBP): Left arm, Patient Position: Sitting, BP Cuff Sizes: Adult (25-34 cm)) Pulse 84 Temp 36.7 ??C (98 ??F) Resp 17 Wt 63.6 kg (140 lb 3.2 oz) LMP 11/27/2014 SpO2 98% BMI 22.29 kg/m?? LAB DATA: Recent Results (from the past 24 hour(s)) PTH Result Value Ref Range PTH 81 (H) 15 - 65 pg/mL Phosphorus Result Value Ref Range Phosphorus 2.7 2.5 - 4.5 mg/dL Comprehensive metabolic panel (non-fasting) Result Value Ref Range Glucose Lvl 77 65 - 199 mg/dL BUN 18 8 - 18 mg/dL Creatinine 1.18 0.70 - 1.20 mg/dL Sodium 141 135 - 145 mmol/L Potassium 4.7 3.5 - 5.0 mmol/L Chloride 105 98 - 107 mmol/L CO2 22 22 - 31 mmol/L Anion Gap 14 5 - 15 mmol/L Calcium 9.5 8.5 - 10.5 mg/dL Total Protein 7.3 6.1 - 8.0 g/dL Albumin 4.7 3.2 - 5.2 g/dL AST 18 0 - 30 unit/L ALT 15 0 - 30 unit/L Alk Phos 66 35 - 105 unit/L Total Bilirubin 0.2 0.2 - 1.3 mg/dL Estimated GFR 50 (L) >=60 mL/min/1.73 m?? Hemogram Result Value Ref Range WBC 7.3 4.0 - 9.5 x10(3)/mcL RBC 4.04 4.00 - 5.21 x10(6)/mcL Hemoglobin 11.7 11.7 - 15.5 g/dL Hematocrit 36.5 35.7 - 45.8 % MCV 90.3 82.6 - 94.4 fL MCH 29.0 27.1 - 32.0 pg MCHC 32.1 31.7 - 35.0 g/dL Platelets 368 (H) 145 - 357 x10(3)/mcL RDWSD 51.4 (H) 37.0 - 46.0 fL RDWCV 15.6 (H) 11.5 - 14.1 % MPV 10.9 7.6 - 12.9 fL nRBC % Auto 0.0 % nRBC Abs Auto 0.000 0.000 - 0.000 x10(3)/mcL Differential, Automated Result Value Ref Range Neutrophils % 62.9 % Neutr Abs (ANC) 4.58 1.70 - 6.10 x10(3)/mcL Lymphocytes % 27.5 % Lymphocytes Abs 2.0 0.9 - 3.2 x10(3)/mcL Monocytes % 5.6 % Monocyte Abs 0.4 0.3 - 0.9 x10(3)/mcL Eosinophils % 3.0 % Eosinophils Abs 0.2 0.0 - 0.4 x10(3)/mcL Basophils % 0.7 % Basophils Abs 0.0 0.0 - 0.1 x10(3)/mcL Immature Gran % 0.30 % Yessica Gran Abs 0.02 0.00 - 0.04 x10(3)/mcL Creatinine clearance = 50.90 -based on weight of 63.6 kg and above serum creatinine IV ACCESS: Peripheral IV Line - Single Lumen 12/20/21 1525 24 gauge;3/4 in length (Active) Indication/Daily Review of Necessity medication therapy intermittent 12/20/21 1525 Site Preparation/Maintenance site cleansed: 70% alcohol;dressing: transparent semipermeable /31/22 1525 Patency/Maintenance flushed without difficulty;blood return, unable to obtain;alcohol impregnated cap applied 12/20/21 1525 Infiltration 0-->no symptoms 12/20/21 1525 HYDRATION: RATE, START TIME, STOP TIME N/A ANTIEMETICS/PREMEDS: DOSE, ROUTE, START TIME, STOP TIME Tylenol 650 mg PO -patient declined MEDICATION/TREATMENT: DOSE, ROUTE, START TIME, STOP TIME: Reclast 5 mg IV Administration times: See MAR Patient identification and orders checked against actual dose given at bedside by Alisia Spangler RN REACTIONS (DESCRIPTION, TIME, INTERVENTION AND EFFECTIVENESS): None. ASSESSMENT: Awake and alert - tolerated treatment well. PLAN: Return to clinic as scheduled. documented in this encounter Plan of Treatment Upcoming Encounters Date Type Department Care Team (Late st Contact Info) Description 10/07/2024 11:30 AM EST Office Visit Dermatology at [facility] [address] [place] [address] Jo Ordaz MD [facility] [place] [address] 12/13/2024 11:30 AM EST Appointment [place] [address] 12/13/2024 1:00 PM EST Office [place] [address] Kiet Pardo MD [facility] RHEUMATOLOGY [place] [phone] documented as of this encounter Visit Diagnoses Diagnosis Scleroderma Systemic sclerosis documented in this encounter Administered Medications Inactive Administered Medications - up to 3 most recent administrations Medication Order MAR Action Action Date Dose Rate Site zoledronic acid (Reclast) 5 mg in mannitol and water 100 mL infusion 5 mg 5 mg, Intravenous, ONCE, 1 dose, On Mon12/20/21 at 1530, Administer over 15 Minutes, Hold dose for CrCl< 35 mL/min. Do not mix with IV Calcium-containing products. Warning Vesicant/Irritant Medication , Indication for: Osteoporosis, prevention of fractures New Bag 12/20/2021 3:30 PM EST 5 mg 400 mL/hr documented in this encounter Care Teams Lunchroom Worker Relationship Specialty Start Date End Date Danya Acuna APRN [address] [place] [address] PCP - General Family Medicine 02/19/21 08/12/22 documented as of this encounter
--- OUTSIDE RECORDS SUMMARY | 2024-09-14 13:04 | XMS_ITS | Encounter Summary ---
Author Organization [facility] [place] [address] Care Team Providers Care Plastic Installer Name Role Phone Danya Acuna BRIGHT Primary Care Provider [phone] Encounter Details Date Type Department Care Team (Latest Contact Info) Description 12/20/2021 2:15 PM EST Laboratory Appointment Lab [address] [place] [phone] Medication monitoring encounter Social History Tobacco Use [...] 11:30 AM EST Office Visit Dermatology at [facility] [address] [place] [address] Jo Ordaz MD [facility] [place] [address] 12/13/2024 11:30 AM EST Appointment [place] [address] 12/13/2024 1:00 PM EST Office [place] [address] Kiet Pardo MD [facility] [address] [place] documented as of this encounter Procedures Procedure Name Priority Date/Time Associated Diagnosis Comments HC VENIPUNCTURE STAT 12/20/2021 2:16 PM EST Medication monitoring encounter HEMOGRAM STAT 12/20/2021 2:16 PM EST Medication monitoring encounter DIFFERENTIAL, AUTOMATED STAT 12/20/2021 2:16 PM EST Medication monitoring encounter HC CBC,PLT & AUTO DIFF STAT 2:16 PM EST Medication monitoring encounter HC PHOSPHORUS, SERUM STAT 12/20/2021 2:16 PM EST Medication monitoring encounter COMPREHENSIVE METABOLIC PANEL STAT 12/20/2021 2:16 PM EST Medication monitoring encounter documented in this encounter Results * Differential, Automated (12/20/2021 2:16 PM EST) Neutrophil % 62.9 % [facility] Neutrophil Absolute 4.58 1.70 - 6.10 x10(3)/[facility] Lymph % 27.5 % [facility] Lymphocytes Abs 2.0 0.9 - 3.2 x10(3)/[facility] Monocyte % 5.6 % [facility] Monocyte Abs 0.4 0.3 - 0.9 x10(3)/[facility] Eos % 3.0 % [facility] Eosinophils Abs 0.2 0.0 - 0.4 x10(3)/[facility] Basophil % 0.7 % [facility] Baso Absolute 0.0 0.0 - 0.1 x10(3)/[facility] Immature Gran % 0.30 % [facility] Comment: Immature granulocytes(IG's)percentage and absolute count will include metamyelocytes, myelocytes, and promyelocytes. Blood smears from CBCs yielding IG's will be scanned manually for concordance. If this scan disagrees with the automated IG or if promyelocytes are noted, a manual differential will be performed. Immature Gran Absolute 0.02 0.00 - 0.04 x10(3)/[facility] Blood 12/20/2021 2:16 PM EST 12/20/2021 2:26 PM EST Narrative Resulting Agency Comment Spec In Lab [facility] HEMATOLOGY ORDERABL ES Performing Organization Address City/State/[facility] Co de Phone Number [facility] [place] [address] * (ABNORMAL) Hemogram (12/20/2021 2:16 PM EST) White Blood Cell 7.3 4.0 - 9.5 x10(3)/[facility] Red Blood Cell 4.04 4.00 - 5.21 x10(6)/[facility] Hemoglobin 11.7 11.7 - 15.5 g/dL [facility] Hematocrit 36.5 35.7 - 45.8 % [facility] Mean Cell Volume 90.3 82.6 - 94.4 fL [facility] Mean Cell Hemoglobin 29.0 27.1 - 32.0 pg [facility] Mean Cell Hemoglobin Concentration 32.1 31.7 - 35.0 g/dL [facility] Platelet 368(H) 145 - 357 x10(3)/[facility] RDW Standard Deviation 51.4(H) 37.0 - 46.0 fL [facility] RDW coefficient of variation 15.6(H) 11.5 - 14.1 % [facility] Mean Platelet Volume 10.9 7.6 - 12.9 fL [facility] NRBC% auto 0.0 % [facility] NRBC Absolute 0.000 0.000 - 0.000 x10(3)/mc L [facility] Blood 12/20/2021 2:16 PM EST 12/20/2021 2:26 PM EST Narrative Resulting Agency Comment Spec In Lab [facility] HEMATOLOGY ORDERABL ES [facility] [place] [address] * (ABNORMAL) Comprehensive metabolic panel (non-fasting) (12/20/2021 2:16 PM EST) Glucose 77 65 - 199 mg/dL [facility] Comment:Diabetes: >=200 mg/d L plus symptoms Blood Urea Nitrogen 18 8 - 18 mg/dL [facility] Creatinine 1.18 0.70 - 1.20 mg/dL [facility] Sodium 141 135 - 145 mmol/L [facility] Potassium 4.7 3.5 - 5.0 mmol/L [facility] Comment: Please note: ??Patients with WBC >100,000 may have falsely elevated Potassium levels. ??For accurate Potassium quantification in these patients send serum separator tube (gold top) for subsequent determinations. ??Contact the Clinical Chemistry Laboratory if there are any questions. Chloride 105 98 - 107 mmol/L [facility] Carbon Dioxide 22 22 - 31 mmol/L [facility] Anion Gap 14 5 - 15 mmol/L [facility] Calcium 9.5 8.5 - 10.5 mg/dL [facility] Protein, Total 7.3 6.1 - 8.0 g/dL [facility] Albumin 4.7 3.2 - 5.2 g/dL [facility] Aspartate Aminotransferase 18 0 - 30 unit/L [facility] Alanine Aminotransferase 15 0 - 30 unit/L [facility] Alkaline Phosphatase 66 35 - 105 unit/L [facility] Bilirubin, Total 0.2 0.2 - 1.3 mg/dL [facility] Est Glomerular Filtration Rate 50(L) >=60 mL/min/1. 73 m?? [facility] Comment: This patient? s estimated glomerular filtration rate (eGFR) is between 50 mL/min/1.73 m2 (patients with less muscle mass) and 58 mL/min/1.73 m2 (patients with more muscle mass) as determined by the CKD-EPI equation. Assessment of eGFR is not appropriate when creatinine concentrations are rapidly changing. For clinical decisions where creatinine clearance will affect therapy, a 24-hour urine creatinine clearance may be advised. Assignment of CKD stage 1 - 5 for patients with an eGFR near the transition point between stages may be based on clinical assessment of muscle mass and symptoms in addition to eGFR. Blood 12/20/2021 2:16 PM EST 12/20/2021 2:26 PM EST Narrative Resulting Agency Comment Spec In Lab Kev Lind MD CHEMISTRY ORDERABLES Performing Organization Address [facility] Co de Phone Number [facility] [place] [address] * Phosphorus (12/20/2021 2:16 PM EST) Phosphorus 2.7 2.5 - 4.5 mg/dL [facility] Blood 12/20/2021 2:16 PM EST 12/20/2021 2:26 PM EST Narrative Resulting Agency Comment Spec In Lab Kev Lind MD CHEMISTRY ORDERABLES Performing Organization Address [facility] Co de Phone Number [facility] [place] [address] * (ABNORMAL) PTH (12/20/2021 2:16 PM EST) Parathyroid Hormone 81(H) 15 - 65 pg/mL [facility] Blood 12/20/2021 2:16 PM EST 12/20/2021 2:26 PM EST Narrative Resulting Agency Comment Spec In Lab Kev Lind MD CHEMISTRY ORDERABLES [facility] [place] [address] documented in this encounter Visit Diagnoses Diagnosis Medication monitoring encounter Encounter for therapeutic drug monitoring documented in this encounter Care Teams Plastic Installer Relationship Specialty Start Date End Date Danya Acuna APRN [address] [place] [address] PCP - General Family Medicine 02/19/21 08/12/22 documented as of this encounter
--- OUTSIDE RECORDS SUMMARY | 2024-09-14 13:04 | XMS_ITS | Encounter Summary ---
Author Organization [facility] [place] [address] Care Team Providers Care Assistant Women'S Tennis Coach Name Role Phone Danya Acuna APRN Primary Care Provider [phone] Reason for Visit * Reason Comments Medication Refill Encounter Details Date Type Department Care Team (Late st Contact Info) Description 01/25/2022 [place] [address] Kiet Pardo MD [facility] [place] [address] Social History Tobacco Use Types Packs/Day Years [...] 11:30 AM EST Office Visit Dermatology at [facility] [address] [place] [address] Jo Ordaz MD [facility] [place] [address] 12/13/2024 11:30 AM EST Appointment Pulmonology at [place] [phone] 12/13/2024 1:00 PM EST Office Visit Rheumatology at [place] [phone] Kiet Pardo MD [facility] [place] [address] documented as of this encounter Visit Diagnoses Not on filedocumented in this encounter Care Teams Assistant Women'S Tennis Coach Relationship Specialty Start Date End Date Danya Acuna APRN [address] [place] [address] PCP - General Family Medicine 02/19/21 08/12/22 documented as of this encounter
--- OUTSIDE RECORDS SUMMARY | 2024-09-14 13:04 | XMS_ITS | Encounter Summary ---
[place] [address] Care Team Providers Care Section Hand Name Role Phone IndraDanya haq Dinora NOVOA Primary Care Provider [phone] Encounter Details Date Type Department Care Team (Late st Contact Info) Description 07/21/2022 Telephone [place] [phone] February Social History Tobacco Use Types Packs/Day Years [...] encounter Miscellaneous Notes * Telephone Encounter - February - 07/21/2022 8:30 AM EDT Amber Wells [id number] Diagnosis/Indication: 6 mo f/u Please review patient chart to confirm if [...] had a/an Upper Endoscopy before? Yes: Date 04/06/22 If yes, did you have any problems with the procedure (such as waking up during the procedure, pain or difficulties afterwards, etc.)? No What type of sedation was used: Other: mac 2. Do you take any blood thinners [...] supplements or vitamins that contain iron? No 6. Do you have a preference regarding the gender of your provider? No ANESTHESIA QUESTIONS (YES to any question, please book with Anesthesia support) 7. Have you ever been diagnosed with any of the following: Pulmonary Hypertension, Atrial Fibrillation (A-Fib) and/or Congential Heart Disease? No 8. Have you ever had an allergic or adverse reaction to Fentanyl or Versed? No 9. Have you had a problem with sedation or anesthesia? (Waking up during procedure, extreme confusion after, etc.) No 10. Do you have a diagnosis of Obstructive Sleep Apnea? No 11. Do you use a c-pap machine? Neither 12. Do you use an oxygen tank at home? No 13. Do you use a rescue inhaler more than twice per day? (COPD, severe asthma) No 14. Do you experience breathing problems when you lay flat for a period of time? No 15. Do you take prescription narcotic pain medications, including suboxone or methodone? Yes but not regularly SCHEDULING CONFIRMATIONS: Please note any and all [...] No 18. You must have a responsible green party who will drive you to your procedure, stay on campus for the entire duration of your procedure, and drive you home from your procedure. Who will likely be your trailer truck driver for the procedure? *Please Verify the height and weight, and adjust if height and/or weight have changed* Estimated body mass index is 22.14 kg/m?? as calculated from the following: Height as of 07/20/22: 170.2 cm (5' 7.01). Weight as of 07/20/22: 64.1 kg (141 lb 6.4 oz). Age:62 y.o. documented in this encounter Plan of Treatment Upcoming Encounters Date Type Department Care Team (Late st Contact Info) Description 10/07/2024 11:30 AM EST Office Visit Dermatology at [facility] [address] [place] [address] Jo Ordaz MD [facility] [place] [address] 12/13/2024 11:30 AM EST Appointment [place] [address] 12/13/2024 1:00 PM EST Office Visit [place] [address] Kiet Pardo MD [facility] [place] [address] documented as of this encounter Visit Diagnoses Not on filedocumented in this encounter Care Teams Section Hand Relationship Specialty Start Date End Date Danya Acuna APRN [address] [place] [address] PCP - General Family Medicine 02/19/21 08/12/22 documented as of this encounter
--- OUTSIDE RECORDS SUMMARY | 2024-09-14 13:04 | XMS_ITS | Encounter Summary ---
[place] [address] Care Team Providers Care Carton Gluing Machine Operator Name Role Phone Armand Danya Dinora NOVOA Primary Care Provider [phone] Reason for Referral * Diagnostic Test (Routine) - Closed Specialty Diagnoses / Procedures Referred By Wander hernandez Referred To Contact Radiology Diagnoses Desmoid fibromatosis Procedures MRI Upper Extremity Non Joint wwo Contrast Solomon Quiros MD [facility] [place] [address] [place] [address] Referral ID Status Reason Start Date Expiration Date V isits Requested Visits Authorized [id number] Closed Specialty Service Requested 07/20/2022 01/18/2024 1 1 Reason for Visit * Reason Comments Follow-up Encounter Details Date Type Department Care Team (Late st Contact Info) Description 07/20/2022 11:45 AM EDT Office [place] [address] Solomon Quiros MD [facility] [place] [address] Desmoid fibromatosis Social History Tobacco Use Types [...] Sign Reading Time Taken Comments Blood Pressure - - Pulse - - Temperature 36.3 ??C (97.4 ??F) 07/20/2022 11:31 AM E DT Respiratory Rate - - Oxygen Saturation - - Inhaled Oxygen Concentration - - Weight 64.1 kg (141 lb 6.4 oz) 07/20/2022 11:31 AM EDT Height 170.2 cm (5' 7.01) 07/20/2022 11:31 AM E DT Body Mass Index 22.14 07/20/2022 11:31 AM EDT documented in this encounter Progress Notes * Solomon Quiros MD - 07/20/2022 11:45 AM EDT Patient returns for surveillance of desmoid tumors. She reports no new lesions. Scalp lesion previously concerned about has spontaneously resolved. MRI reviewed without evidence of recurrence. RTC in 1 year with repeat scan Solomon Quiros MD, MPH Surgical Oncology documented in this encounter Plan of Treatment Upcoming Encounters Date Type Department Care Team (Late st Contact Info) Description 10/07/2024 11:30 AM EST Office Visit [facility]ermat[facility] at [facility] [address] [facility] [place] [address] Jo Ordaz MD [facility] [place] [address] 12/13/2024 11:30 AM EST Appointment [place] [address] 12/13/2024 1:00 PM EST Office [place] [address] Kiet Pardo MD [facility] [place] [address] documented as of this encounter Results * MRI Upper Extremity [...] who have questions please contact the health palliative care coordinator that requested your imaging first. ? Narrative 08/24/2023 10:45 PM EDT EXAMINATION: MRI [...] 7001 image 26. Enhancement, sagittal image, series 62942 image 75-22: LEFT posterior chest wall Unchanged linear spiculated subcutaneous dark T1 and T2 markings lateral to the spinous process. This subcutaneous soft tissue irregularity is near tip of scapula, series 7001 image 12, measuring 25 x 6 mm. It is superficial to the trapezius muscle. No enhancement seen. Enhancement, sagittal series 81552 image 84-102: This thin subcutaneous focus has [...] end of scapula, unchanged linear irregular dark [id number] intermixed with ferromagnetic postsurgical artifacts in the subcutaneousfat are superficial to the trapezius muscle, series 7 and series 21 image 27. This linear markings starts at the spinous process apex and extend to theRIGHT chest for distance of 5 cm, series 7001 image 26. Enhancement, sagittal image, series 69829 image 75-22: LEFT posterior chest wall Unchanged linear spiculated subcutaneous dark T1 and T2 markings lateralto the spinous process. This subcutaneous soft tissue irregularity is near tip of scapula, [id number] image 12, measuring 25 x 6 mm. It is superficial to the trapezius muscle.No enhancement seen. Enhancement, sagittal series 29463 image 84-102: This thin subcutaneous focus has [...] patients who have questions please contactthe health palliative care coordinator that requested your imaging first. Electronically signed by: Debbie Briones MD, [facility]([phone]), at 08/24/2023 10:45 PM Solomon Quiros MD IMG MRI ORDERABLES documented in this encounter Visit Diagnoses Diagnosis Desmoid fibromatosis Other benign neoplasm of connective and other soft tissue of unspecified site Desmoid fibromatosis Other benign neoplasm of connective and other soft tissue of unspecified site documented in this encounter Care Teams Carton Gluing Machine Operator Relationship Specialty Start Date End Date Danya Acuna APRN [address] [place] [address] [address] PCP - General Family Medicine 02/19/21 08/12/22 documented as of this encounter
--- OUTSIDE RECORDS SUMMARY | 2024-09-14 13:04 | XMS_ITS | Encounter Summary ---
Author Organization [facility] [place] [address] Care Team Providers Care Software Sales Representative Name Role Phone Danya Acuna APRN Primary Care Provider Encounter Details Date Type Department Care Team (Late st Contact Info) Description 04/15/2022 Orders [place] [address] Andrew Berger MD [facility] [place] [address] Joseph's esophagus with high grade dysplasia (Primary [...] 11:30 AM EST Office Visit Dermatology at [facility] [address] [place] [phone] Jo Ordaz MD [facility] [place] [address] 12/13/2024 11:30 AM EST [place] [address] 12/13/2024 1:00 PM EST [place] [address] Kiet Pardo MD [facility] [place] [address] Scheduled Orders Name Type Priority Associated Diagnoses Orde r Schedule ENDOSCOPY CASE REQUEST: EGD, UPPER GI ENDOSCOPY Procedures Routine Joseph's esophagus with high grade dysplasia Ordered: 04/15/2022 documented as of this encounter Visit Diagnoses Diagnosis 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
--- OUTSIDE RECORDS SUMMARY | 2024-09-14 13:04 | XMS_ITS | Encounter Summary ---
Author Organization [facility] [place] [address] Care Team Providers Care Assembler Fitter Name Role Phone Danya Acuna APRN Primary Care Provider [phone] Reason for Visit * Reason Comments Medication Refill Encounter Details Date Type Department Care Team (Late st Contact Info) Description 07/01/2022 Refill [place] [address] Andrew Berger MD [facility] [place] [address] CKD (chronic kidney disease) stage 3, GFR [...] Visit Dermatology at [address] [place] [address] Jo Ordaz MD [facility] [place] [address] 12/13/2024 11:30 AM EST Appointment [place] [address] 12/13/2024 1:00 PM EST Office [place] [address] Kiet Pardo MD [facility] [place] [address] documented as of this encounter Visit Diagnoses Diagnosis CKD (chronic kidney disease) stage 3, GFR 30-59 ml/min Chronic kidney disease, Stage III (moderate) Scleroderma Systemic sclerosis documented in this encounter Care Teams Assembler Fitter Relationship Specialty Start Date End Date Danya Acuna APRN [address] [place] [address] PCP - General Family Medicine 02/19/21 08/12/22 documented as of this encounter
--- OUTSIDE RECORDS SUMMARY | 2024-09-14 13:04 | XMS_ITS | Encounter Summary ---
Author Organization [facility] Address [facility] [place] [address] Care Team Providers Care Wood Finisher Apprentice Name Role Phone Danya Acuna BRIGHT Primary Care Provider [phone] Encounter Details Date Type Department Care Team (Late st Contact Info) Description 01/18/2022 2:20 PM EST Office Visit Dermatology at [address] [address] Solomon Centeno MD [facility] [place] [address] Seborrheic keratoses; Lentigines; Viral warts, unspecified type Social History Tobacco Use Types [...] of this encounter Progress Notes * Solomon Centeno MD - 01/18/2022 2:20 PM EST Images from the original note were not included. DEPARTMENT OF DERMATOLOGY Medical Dermatology Clinic Provider: Solomon Centeno MD Patient's preferred name Amber Preferred contact [...] of Present Illness: Amber Wells is a 61 y.o. Patient returns to clinic today for spots of concern. Patient states a spot on the left muslim that has been there since July states itis very painful along with her left chest. Last visit at Dermatology: 06/17/2021 Last visit with this provider: 06/17/2021 Medications: Reviewed in eD-H Allergies: Reviewed in eD-H Skin Examination: Focused skin examination of the left muslim, and chest was normal with the exception of the findings below. Assessment/Plan #. Favor Calcinosis Cutis vs PENOLOGY PROFESSOR vs less likely but possibly AK - right ear 2 pink hyperkeratotic papules - Joint discussion to monitor (figure 1), discussed treatment has risk of poor wound healing, and because of this, decision made to avoid treating. - Call if lesion bleeds or changes. #. Lentigines - Scattered light-brown, evenly pigmented, well-demarcated macules on sun-exposed areas of the chest. - No worrisome pigmented lesions. Discussed benign nature of lesions and provided reassurance. Willcontinue to monitor. #. Seborrheic Keratoses - Stuck on, waxy papule on the left shoulder, irritated. - Discussed benign nature of lesions and provided reassurance. No treatment necessary at this time. Patient elects to proceed with cryotherapy today. Procedure: Destruction of lesion(s) with cryotherapy (LN2). Location(s): As noted above Number: 1 Discussed procedure and expectations including risks and benefits. Verbal consent obtained. Treatedwith LN2. There were no complications; Patient tolerated the procedure well. Post-procedure expectations and wound care were reviewed. Actinic Keratosis: gritty pink papule located on left upper forehead, I discussed this condition with the patient and explored therapeutic options. Pre- cancerous nature of the lesion(s) reviewed. I recommended this be treated with LN2, patient is in agreement to this treatment plan. Procedure Note: Procedure: Destruction of lesion(s) with cryotherapy. Number of lesion(s): 1 Location(s): as above. Discussed procedure and expectations including risks (including risk of hypopigmentation) and benefits. Verbal consent obtained. Lesions were frozen with LN2, 15-30 second thaw time, TWICE. There were no complications; the patient tolerated the procedure well. Post-procedure expectations and wound care were reviewed. Patient was instructed to call if areas do not resolve as expected or if problems arise. If lesions fail to resolve, further work-up may be needed. Figure 1 Photo(s) taken and charted with patient's verbal consent. Other: ??? N/A RTC: As scheduled with Dr. Ordaz for f/u scleroderma. F/U in 6 weeks PRN if spot on forehead not gone. []Note routed to office secretary [x]Recall placed in scheduling system []Appointment scheduled at checkout Scribe attestation: JILL Lawson has performed the documentation for this encounter in the presence of and acting as a scribe for Solomon Centeno MD. I performed the above scribed service and agree with the accuracy of the documentation in this encounter. Reviewed and signed by: Solomon Centeno MD Dermatology [facility] Patient seen and evaluated with staff hospital pharmacist: Rut Fitzpatrick MD Dermatology [facility] * Rut Fitzpatrick MD - 01/18/2022 2:20 PM EST I directly supervised Dr. Centeno during this office visit. Dr. Centeno presented the history and physical exam to me. I then saw and examined this patient with Dr. Centeno . We reviewed the history and pertinent details and I confirmed the physical findings. I agree with the details of the history and physical exam as documented in Dr. Centeno's note. Rut Fitzpatrick MD Staff Physician documented in this encounter Plan of Treatment Upcoming Encounters Date Type Department Care Team (Late st Contact Info) Description 10/07/2024 11:30 AM EST Office Visit Dermatology at [address] [phone] Jo Ordaz MD [facility] [place] [address] 12/13/2024 11:30 AM EST Appointment [place] [address] 12/13/2024 1:00 PM EST Office [place] [address] Kiet Pardo MD [facility] [place] [address] documented as of this encounter Visit Diagnoses Diagnosis Seborrheic keratoses Lentigines Other dyschromia Viral warts, unspecified type documented in this encounter Care Teams Wood Finisher Apprentice Relationship Specialty Start Date End Date Danya Acuna, BRIGHT [address] [place] [address] PCP - General Family Medicine 02/19/21 08/12/22 documented as of this encounter
--- OUTSIDE RECORDS SUMMARY | 2024-09-14 13:04 | XMS_ITS | Encounter Summary ---
Author Organization [facility] [place] [address] Care Team Providers Care Mortgage Processing Manager Name Role Phone Danya Acuna BRIGHT Primary Care Provider Encounter Details Date Type Department Care Team (Late st Contact Info) Description 01/14/2022 Orders [place] [address] Anant Perez PA [address] [place] [address] Social History Tobacco Use Types Packs/Day Years [...] 11:30 AM EST Office Visit Dermatology at [facility] [address] [place] [address] Jo Ordaz MD [facility] [address] [place], [place] [id number] 12/13/2024 11:30 AM EST Appointment [place] [phone] 12/13/2024 1:00 PM EST Office [place] [phone] Kiet Pardo MD [facility] [place] [address] documented as of this encounter Visit Diagnoses Not on filedocumented in this encounter Care Teams Mortgage Processing Manager Relationship Specialty Start Date End Date Danya Acuna APRN [address] [place] [address] PCP - General Family Medicine 02/19/21 08/12/22 documented as of this encounter
--- OUTSIDE RECORDS SUMMARY | 2024-09-14 13:04 | XMS_ITS | Encounter Summary ---
Author Organization Count Includes [facility] Address [facility] [place] [address] Care Team Providers Care Career Development Director Name Role Phone Danya Acuna BRIGHT Primary Care Provider [phone] Reason for Visit * Reason Comments Chronic Kidney Disease Encounter Details Date Type Department Care Team (Latest Contact Info) Description 05/31/2022 10:40 AM EDT Office Visit [place] [address] Nguyễn Underwood MD [facility] [place] [address] A, Nurse Clinician None Stage 3a chronic kidney disease; Anemia, unspecified type; Fatigue, unspecified type Social History Tobacco [...] Sign Reading Time Taken Comments Blood Pressure 123/70 05/31/2022 11:10 AM EDT Pulse 76 05/31/2022 11:10 AM EDT Temperature - - Respiratory Rate - - Oxygen Saturation - - Inhaled Oxygen Concentration - - Weight 64 kg (141 lb) 05/31/2022 11:10 AM EDT Height - - Body Mass Index 22.08 04/06/2022 1:11 PM EDT documented in this encounter Patient Instructions * Patient Instructions* Karla Bailey RN - 05/31/2022 10:40 AM EDT Your kidney function continues to improve Your iron studies have not come back yet. We will call you with the results. You can try Black Strap Molasses as a high iron food. Your fatigue may be related to your Covid. This may take a few months to resolve. We would recommend waiting a bit before doing heavy activity. Call if you feel differently (consistent symptoms of nausea, vomiting, little appeal for food, itching, change in sleep patterns, worsening energy levels, shortness of breath). These are some of the signs of worsening kidney function. We will see you sooner if you are not feeling well. Please call. Karla GOLDBERG-electrocardiograph operator Kidney Disease Nurse Clinician [facility] Nephrology documented in this encounter Progress Notes * Nguyễn Underwood MD - 05/31/2022 10:40 AM EDT [facility] [address] [place] [address] ?? Reason for Clinic Visit: Systems Review and CKD management. Seen in clinic with: Karla GOLDBERG-RN CKD related to:??scleraderma crisis 2009, Was on HD through tunnelled catheter from April 27 to July 14, 2010??at [facility] for the last 3 weeks of dialysis. ?? History of Present Illness: ? History obtained by RN Specialist: Amber was last seen in clinic with Dr Sawyer on 04/09/21, eGFR -57 . She was on antibiotics for scleroderma ulcers on her hands. She had Barretts esophagus removed and is trying to reduce her Nexium. Iron levels have been low. Fatigue impacting her quality of life. She had Covid 19 in March and received her covid booster. ? Review of Systems:?? Sign/Symptom Comments Activity level/fatigue: Very tired recently - active with stairs, walking. Scleroderma has caused diffuse skin thickening with resulting flexion contractures. Change in sleep patterns: No issues Nocturia:?? Yes - 3x a night since amlodipine decreased Appetite changes: No - great, low salt diet, salads, fruit, veggies, mostly vegetarian diet. Food aversions: No Nausea: No Vomiting: No Bowels: No - constipation, working with PCP to manage Edema: No Shortness of breath: No Orthopnea/PND: No PND; 1 pillow. Muscle Cramping: No Cold intolerance:?? Yes; plus the issues with the Raynaud's in her fingers.?? Itching: No Bruising/bleeding: No - bruising, nose bleeds, or black stools. Mental Status Changes:?? None Recent Home Blood Pressure Control: Not regularly checking at home Recent Lipid Management: Not on lipid medications. Additional CCM Comments: How's your health been in the last 4 weeks : Poor, Fair, Good, Very Good Excellent ? She is seeing millwright at [facility] for the scleroderma management. She is seeing GI for the bowel issues. Sees dermatology and plastics, receiving botox injections in the hands three times annually. ?? Additional CCM Comments: Social Determinant Date/Comments Food Security/ Nutritional Education Primarily vegetarian, low salt diet. ?? Stable Housing/ Safety Concerns Lives with in a house. Community Supports/ Transportation issues/ Appointment coordination She has dual citizenship in [place] and [place], drives. Functional Status/ Assistive devices None Learning Style/Considerations Engagement/Readiness to learn or change ?? Financial/Insurance concerns Employment status [place] Medicaid, not working ?? Hepatitis B Status:?? Serum Testing Date of Testing Results Hep B sAb/Hep B sAg not tested Vaccination Status: Unknown? Fistula Date/Type of Initial Access/Surgeon: Had tunnelled dialysis catheter removed at [facility] IR in June 2010. No plans for fistula at this time. Kidney function has been stable and slowly improving ? Advanced Directives: On file in eDH.? Immunizations ?? Influenza PF, Split 09/23/2016, 10/17/2012 PMH: Past Medical History: Diagnosis Date ??? Anemia [...] dialysis for 2 months in 2009 ??? 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 Scleroderma 1991 Diffuse scleroderma. ALLERGIES: Allergies Allergen Reactions ??? Other [Unclassified Drug] Lobster--weird sensation ??? Shellfish Derived MEDICATIONS: Current Outpatient Medications Medication Sig Dispense Refill ??? sildenafiL (Revatio) 20 mg Tablet TAKE TWO TABLETS BY MOUTH EVERY MORNING, ONE TABLET EVERY AFTERNOON, AND TWO TABLETS EVERY EVENING 150 tablet 5 ??? Ibuprofen 200 mg Capsule Take by mouth. ??? amLODIPine (Norvasc) 5 mg Tablet Take 1 tablet by mouth daily. 90 tablet 3 ??? fosinopriL (MONOPRIL) 20 mg Tablet TAKE 1 TABLET BY MOUTH EVERY DAY 90 tablet 3 ??? esomeprazole (NexIUM) 40 mg Capsule, Delayed Release(E.C.) Take 1 capsule by mouth 2 times daily. 180 capsule 3 ??? fish oil-omega-3 fatty acids 1,000 mg Capsule Take 1,000 mg by mouth daily. ??? lidocaine-prilocaine (EMLA) Cream APPLY TO THE AFFECTED AREA NEEDED 30 g 2 ??? calcium citrate (Calcitrate) 200 mg (950 mg) Tablet Take 1,200 mg by mouth daily. ??? acetaminophen (TYLENOL) 500 mg Tablet Take [...] Take 1 tablet by mouth daily. ??? acetaminophen-codeine (Tylenol #3) 300-30 mg Tablet Take 2 tablets by mouth every 6 hours as needed for Pain. Reported on 03/29/2017 (Patient not taking: Reported on 05/31/2022) 60 tablet 0 ??? silver sulfADIAZINE (Silvadene) 1 % Cream Apply topically daily. (Patient not taking: Reported on 05/31/2022) 50 g 0 ??? polyethylene glycoL (Miralax) 17 gram/dose Powder Take 17 g by mouth daily. ??? psyllium husk (METAMUCIL ORAL) Take by mouth daily. ??? glycerin, adult, Suppository daily as needed. 0 ??? nitroGLYcerin (NITROGLYN) 2 % ointment Place 0.5 inches onto the skin every 6 hours. No current facility-administered medications for this visit. PHYSICAL EXAM: Vitals: 05/31/22 1110 BP: 123/70 Pulse: 76 Weight: 64 kg (141 lb) Body mass index is 22.08 kg/m??. General appearance Head Eyes ENT Neck Respiratory COR/Vascular Abdomen Skin Neuro Asterixis Extremities Other LABS: Recent Results (from the past 336 hour(s)) Protein/Creatinine Ratio, urine Collection Time: 05/31/22 9:58 AM Result Value Ref Range U Creatinine 30 mg/dL U Protein Ran 13 (H) 0 - 12 mg/dL Vitamin D, 25-Hydroxy Collection Time: 05/31/22 10:02 AM Result Value Ref Range 25-OH Vit D Total 51 21 - 100 ng/mL 25-OH Vit D Interp Sufficient PTH Collection Time: 05/31/22 10:02 AM Result Value Ref Range PTH 62 15 - 65 pg/mL Uric acid Collection Time: 05/31/22 10:02 AM Result Value Ref Range Uric Acid 5.6 2.5 - 6.5 mg/dL Phosphorus Collection Time: 05/31/22 10:02 AM Result Value Ref Range Phosphorus 3.1 2.5 - 4.5 mg/dL Albumin Level Collection Time: 05/31/22 10:02 AM Result Value Ref Range Albumin 4.7 3.2 - 5.2 g/dL Basic Metabolic Panel (non-fasting) Collection Time: 05/31/22 10:02 AM Result Value Ref Range Glucose Lvl 92 65 - 199 mg/dL BUN 20 (H) 8 - 18 mg/dL Creatinine 1.01 0.70 - 1.20 mg/dL Sodium 141 135 - 145 mmol/L Potassium 5.1 (H) 3.5 - 5.0 mmol/L Chloride 106 98 - 107 mmol/L CO2 24 22 - 31 mmol/L Anion Gap 11 5 - 15 mmol/L Calcium 9.5 8.5 - 10.5 mg/dL Estimated GFR 63 >=60 mL/min/1.73 m?? Hemogram Collection Time: 05/31/22 10:02 AM Result Value Ref Range WBC 7.8 4.0 - 9.5 x10(3)/mcL RBC 4.02 4.00 - 5.21 x10(6)/mcL Hemoglobin 11.5 (L) 11.7 - 15.5 g/dL Hematocrit 36.3 35.7 - 45.8 % MCV 90.3 82.6 - 94.4 fL MCH 28.6 27.1 - 32.0 pg MCHC 31.7 31.7 - 35.0 g/dL Platelets 349 145 - 357 x10(3)/mcL RDWSD 54.7 (H) 37.0 - 46.0 fL RDWCV 16.4 (H) 11.5 - 14.1 % MPV 10.3 7.6 - 12.9 fL nRBC % Auto 0.0 % nRBC Abs Auto 0.000 0.000 - 0.000 x10(3)/mcL Differential, Automated Collection Time: 05/31/22 10:02 AM Result Value Ref Range Neutrophils % 69.7 % Neutr Abs (ANC) 5.41 1.70 - 6.10 x10(3)/mcL Lymphocytes % 20.7 % Lymphocytes Abs 1.6 0.9 - 3.2 x10(3)/mcL Monocytes % 6.9 % Monocyte Abs 0.5 0.3 - 0.9 x10(3)/mcL Eosinophils % 2.1 % Eosinophils Abs 0.2 0.0 - 0.4 x10(3)/mcL Basophils % 0.5 % Basophils Abs 0.0 0.0 - 0.1 x10(3)/mcL Immature Gran % 0.10 % Yessica Gran Abs 0.01 0.00 - 0.04 x10(3)/mcL ASSESSMENT AND PLAN: Problem: Chronic Kidney Disease Estimated GFR (mL/min/1.73 m??) Date Value 05/31/2022 63 12/20/2021 50 (L) 04/09/2021 57 (L) CKD Stage 2 Potassium Date Value Ref Range Status 05/31/2022 5.1 (H) 3.5 - 5.0 mmol/L [...] Chemistry Laboratory if there are any questions. 04/09/2021 4.7 3.5 - 5.0 mmol/L Final Comment: Please note: Patients with WBC >100,000 may have falsely elevated Potassium levels. For accurate Potassium quantification in these patients send serum separator tube (gold top) for subsequent determinations. Contact the Clinical Chemistry Laboratory if there are any questions. CO2 (mmol/L) Date Value 05/31/2022 24 12/20/2021 22 04/09/2021 26 not on mg bicarb Uric Acid (mg/dL) Date Value 05/31/2022 5.6 04/09/2021 5.5 10/14/2020 4.8 not on allopurinol Standard Recommendations: Reduce rate of progression. Education for CKD stage- specific issues. RN Notes:Your kidney function continues to improve. Your fatigue may be related to your Covid. Thismay take a few months to resolve. We would recommend waiting a bit before doing heavy activity. Call if you feel differently (consistent symptoms of nausea, vomiting, little appeal for food, itching,change in sleep patterns, worsening energy levels, shortness of breath). These are some of the signs of worsening kidney function. We will see you sooner if you are not feeling well. MD/FOLDER TAPER OPERATOR A/P: Problem: Management of Anemia related to Chronic Kidney Disease (CKD) Hemoglobin (g/dL) Date Value 05/31/2022 11.5 (L) Goal: 9.5-10.9 g/dl Ferritin (ng/mL) Date Value 09/28/2011 27 Goal: >100ng/ml Iron Saturation (%) Date Value 09/28/2011 34 Goal: >20% RONAK: No IV Iron replacement therapy (Venofer), Last dose: None RN Notes: HGB at goal. Your iron studies have not come back yet. We will call you with the results.You can try Black Strap Molasses as a high iron food MD/FOLDER TAPER OPERATOR A/P: Problem: Hypertension BP: (123)/(70) Goal (if urine alb:cr ratio is <30mg/g): </= 140/90 Goal (if urine alb:cr ratio is >30mg/g): </= 130/80 Standard Recommendations: Sodium intake < 2 Gm per day. RN Notes: No changes MD/FOLDER TAPER OPERATOR A/P: Problem: Proteinuria Prot/Cre Ratio (ratio) Date Value 04/09/2021 0.3 Goal: <0.2mg/mg RN Notes: On fosinopril 20 mg daily MD/FOLDER TAPER OPERATOR A/P: Problem: Bone and mineral metabolism 25-OH Vit D Total (ng/mL) Date Value 05/31/2022 51 10/02/2019 33 08/22/2017 37 On vitamin D 1,000 units daily PTH (pg/mL) Date Value 05/31/2022 62 12/20/2021 81 (H) 04/09/2021 73 (H) not on calcitriol mcg Goal: Stage 3: 35-70 pg/ml Stage 4: 70-110 pg/ml Stage 5: 150-300 pg/ml Phosphorus (mg/dL) Date Value 05/31/2022 3.1 12/20/2021 2.7 04/09/2021 2.6 not on sevelamer/calcium carbonate (Tums)/calcium acetate mg Goal: 2.7-4.6mg/dl Calcium (mg/dL) Date Value 05/31/2022 9.5 12/20/2021 9.5 04/09/2021 9.4 On/not on calcium carbonate mg Goal: 8.5-10.5mg/dl RN Notes: No changes MD/FOLDER TAPER OPERATOR A/P: Problem: Nutrition Albumin Date Value 05/31/2022 4.7 g/dL 12/20/2021 4.7 g/dL 04/09/2021 4.3 gm/dL Goal: >/= 4.0 gm/dl Body mass index is 22.08 kg/m??. Goal: 20-25 kg/m2 RN Notes: Continue healthy eating MD/FOLDER TAPER OPERATOR A/P: Return to CKD clinic: 6 months Summary: 62-year-old very pleasant lady with prior history of scleroderma renal crisis, has crest syndrome, YOUNG requiring dialysis in the past coming here for follow-up. She has calcinosis, Raynaud's, esophageal dysmotility and Joseph's esophagus, and sclerodactyly. Blood pressure currently well controlled, she is on PERRY inhibitor, amlodipine and is on sildenafil for her vascular issues. She had COVID recently and has been struggling with fatigue after that. She had low iron/iron saturation and has anemia. Discussed about high iron containing food. Creatinine stable. documented in this encounter Plan of Treatment Upcoming Encounters Date Type Department Care Team (Late st Contact Info) Description 10/07/2024 11:30 AM EST Office Visit Dermatology at [facility] [address] [place] [address] Jo Ordaz MD [facility] [place] [address] 12/13/2024 11:30 AM EST Appointment [place] [address] 12/13/2024 1:00 PM EST Office [place] [address] Kiet Pardo MD [facility] [place] [address] documented as of this encounter Results * (ABNORMAL) Iron and TIBC (05/31/2022 10:02 AM EDT) Iron 47 30 - 150 mcg/dL [facility] TIBC 295 250 - 450 mcg/dL [facility] Iron Saturation 16(L) 20 - 50 % [facility] Blood 05/31/2022 10:0 2 AM EDT 05/31/2022 10:15 AM EDT Narrative Resulting Agency Comment Spec In Lab Nguyễn Underwood MD CHEMISTRY ORDERABLES [facility] [place] [address] documented in this encounter Visit Diagnoses Diagnosis Stage 3a chronic kidney disease Anemia, unspecified type Fatigue, unspecified type documented in this encounter Care Teams Career Development Director Relationship Specialty Start Date End Date Danya Acuna APRN [address] [place] [address] PCP - General Family Medicine 02/19/21 08/12/22 documented as of this encounter
--- OUTSIDE RECORDS SUMMARY | 2024-09-14 13:04 | XMS_ITS | Encounter Summary ---
Author Organization [facility] [place] [address] Care Team Providers Care Head Paper Tester Name Role Phone Danya Acuna BRIGHT Primary Care Provider [phone] Encounter Details Date Type Department Care Team (Latest Contact Info) Description 05/31/2022 10:00 AM EDT Laboratory Appointment Lab [address] [place] [address] Stage 3a chronic kidney disease; Anemia, unspecified [...] 11:30 AM EST Office Visit Dermatology at [facility] [address] [place] [address] Jo Ordaz MD [facility] [place] [address] 12/13/2024 11:30 AM EST Appointment [place] [phone] 12/13/2024 1:00 PM EST Office [place] [phone] Kiet Pardo MD [facility] [address] [place] [id number] documented as of this encounter Procedures Procedure Name Priority Date/Time Associated Diagnosis Comments HC PARATHYROID HORMONE(PTH INTACT Routine 05/31/2022 10:02 AM EDT Stage 3a chronic kidney disease HEMOGRAM Routine 05/31/2022 10:02 AM EDT Stage 3a chronic kidney disease Anemia, unspecified type Fatigue, unspecified type DIFFERENTIAL, AUTOMATED Routine 05/31/2022 10:02 AM EDT Stage 3a chronic kidney disease Anemia, unspecified type Fatigue, unspecified type HC IRON BINDING CAPACITY Routine 05/31/2022 10:02 AM EDT Stage 3a chronic kidney disease Anemia, unspecified type Fatigue, unspecified type HC VENIPUNCTURE Routine 05/31/2022 10:02 AM EDT Stage 3a chronic kidney disease HC CBC,PLT & AUTO DIFF Routine 05/31/2022 10:02 AM EDT Stage 3a chronic kidney disease Anemia, unspecified type Fatigue, unspecified type HC URIC ACID, SERUM Routine 05/31/2022 1 0:02 AM EDT Stage 3a chronic kidney disease HC PHOSPHORUS, SERUM Routine 05/31/2022 10:02 AM EDT Stage 3a chronic kidney disease HC ALBUMIN, SERUM Routine 05/31/2022 10: 02 AM EDT Stage 3a chronic kidney disease BASIC METABOLIC PANEL Routine 05/31/2022 10:02 AM EDT Stage 3a chronic kidney disease HC PROTEIN, QUANTITATIVE, URINE Routine 05/31/2022 9:58 AM EDT Stage 3a chronic kidney disease documented in this encounter Results * Differential, Automated (05/31/2022 10:02 AM EDT) Neutrophil % 69.7 % [facility] Neutrophil Absolute 5.41 1.70 - 6.10 x10(3)/[facility] Lymph % 20.7 % [facility] Lymphocytes Abs 1.6 0.9 - 3.2 x10(3)/[facility] Monocyte % 6.9 % [facility] Monocyte Abs 0.5 0.3 - 0.9 x10(3)/[facility] Eos % 2.1 % [facility] Eosinophils Abs 0.2 0.0 - 0.4 x10(3)/[facility] Basophil % 0.5 % [facility] Baso Absolute 0.0 0.0 - 0.1 x10(3)/[facility] Immature Gran % 0.10 % [facility] Comment: Immature granulocytes(IG's)percentage and absolute count will include metamyelocytes, myelocytes, and promyelocytes. Blood smears from CBCs yielding IG's will be scanned manually for concordance. If this scan disagrees with the automated IG or if promyelocytes are noted, a manual differential will be performed. Immature Gran Absolute 0.01 0.00 - 0.04 x10(3)/[facility] Blood 05/31/2022 10:0 2 AM EDT 05/31/2022 10:15 AM EDT Narrative Resulting Agency Comment Spec In Lab Nguyễn Underwood MD HEMATOLOGY ORDERABLE S [facility] [place] [address] * (ABNORMAL) Hemogram (05/31/2022 10:02 AM EDT) White Blood Cell 7.8 4.0 - 9.5 x10(3)/ L [facility] Red Blood Cell 4.02 4.00 - 5.21 x10(6)/ L [facility] Hemoglobin 11.5(L) 11.7 - 15.5 g/dL [facility] Hematocrit 36.3 35.7 - 45.8 % [facility] Mean Cell Volume 90.3 82.6 - 94.4 fL [facility] Mean Cell Hemoglobin 28.6 27.1 - 32.0 pg [facility] Mean Cell Hemoglobin Concentration 31.7 31.7 - 35.0 g/dL [facility] Platelet 349 145 - 357 x10(3)/[facility]OR[facility]ORY RDW Standard Deviation 54.7(H) 37.0 - 46.0 [facility] RDW coefficient of variation 16.4(H) 11.5 - 14.1 % [facility] Mean Platelet Volume 10.3 7.6 - 12.9 fL [facility] NRBC% auto 0.0 % [facility] NRBC Absolute 0.000 0.000 - 0.000 x10(3)/[facility] Blood 05/31/2022 10:0 2 AM EDT 05/31/2022 10:15 AM EDT Narrative Resulting Agency Comment Spec In Lab Nguyễn Underwood MD HEMATOLOGY ORDERABLE S [facility] [place] [address] * (ABNORMAL) Iron and TIBC (05/31/2022 10:02 AM EDT) Iron 47 30 - 150 mcg/dL [facility] TIBC 295 250 - 450 mcg/dL [facility] Iron Saturation 16(L) 20 - 50 % [facility] Blood 05/31/2022 10:0 2 AM EDT 05/31/2022 10:15 AM EDT Narrative Resulting Agency Comment Spec In Lab Nguyễn Underwood MD CHEMISTRY ORDERABLES [facility] [place] [address] * (ABNORMAL) Basic Metabolic Panel (non-fasting) (05/31/2022 10:02 AM EDT) Glucose 92 65 - 199 mg/dL [facility] Comment:Diabetes: >=200 mg/d L plus symptoms Blood Urea Nitrogen 20(H) 8 - 18 mg/dL [facility] Creatinine 1.01 0.70 - 1.20 mg/dL [facility] Sodium 141 135 - 145 mmol/L [facility] Potassium 5.1(H) 3.5 - 5.0 mmol/L [facility] Comment: Please note: ??Patients with WBC >100,000 may have falsely elevated Potassium levels. ??For accurate Potassium quantification in these patients send serum separator tube (gold top) for subsequent determinations. ??Contact the Clinical Chemistry Laboratory if there are any questions. Chloride 106 98 - 107 mmol/L [facility] Carbon Dioxide 24 22 - 31 mmol/L [facility] Anion Gap 11 5 - 15 mmol/L [facility] Calcium 9.5 8.5 - 10.5 mg/dL [facility] Est Glomerular Filtration Rate 63 >=60 mL/min/1. 73 m?? [facility] Comment: This patient's estimated [...] Underwood MD CHEMISTRY ORDERABLES Performing Organization Address City/[facility]/ZIP Co de Phone Number [facility] [place] [address] * Albumin Level (05/31/2022 10:02 AM EDT) Albumin 4.7 3.2 - 5.2 g/dL [facility] Blood 05/31/2022 10:0 2 AM EDT 05/31/2022 10:15 AM EDT Narrative Resulting Agency Comment Spec In Lab Nguyễn Underwood MD CHEMISTRY ORDERABLES Performing Organization Address City/[facility]/ZIP Co de Phone Number [facility] [place] [address] * Phosphorus (05/31/2022 10:02 AM EDT) Phosphorus 3.1 2.5 - 4.5 mg/dL [facility] Blood 05/31/2022 10:0 2 AM EDT 05/31/2022 10:15 AM EDT Narrative Resulting Agency Comment Spec In Lab Nguyễn Underwood MD CHEMISTRY ORDERABLES Performing Organization Address City/[facility]/ZIP Co de Phone Number [facility] [place] [address] * Uric acid (05/31/2022 10:02 AM EDT) Uric Acid 5.6 2.5 - 6.5 mg/dL [facility] Blood 05/31/2022 10:0 2 AM EDT 05/31/2022 10:15 AM EDT Narrative Resulting Agency Comment Spec In Lab Nguyễn Underwood MD CHEMISTRY ORDERABLES Performing Organization Address City/[facility]/ZIP Co de Phone Number [facility] [place] [address] * PTH (05/31/2022 10:02 AM EDT) Parathyroid Hormone 62 15 - 65 pg/mL [facility] Blood 05/31/2022 10:0 2 AM EDT 05/31/2022 10:16 AM EDT Narrative Resulting Agency Comment Spec In Lab Nguyễn Underwood MD CHEMISTRY ORDERABLES Performing Organization Address [facility] Co de Phone Number [facility] [place] [address] * Vitamin D, 25-Hydroxy (05/31/2022 10:02 AM EDT) Vitamin D Total 25 OH 51 21 - 100 ng/mL [facility] Vit D Interp Sufficient [facility] Blood 05/31/2022 10:0 2 AM EDT 05/31/2022 10:16 AM EDT Narrative Resulting Agency Comment Spec In Lab Nguyễn Underwood MD CHEMISTRY ORDERABLES Performing Organization Address City/[facility] Co de Phone Number [facility] [place] [address] * (ABNORMAL) Protein/Creatinine Ratio, urine (05/31/2022 9:58 AM EDT) Creatinine, Urine 30 mg/dL [facility] Protein, Urine 13(H) 0 - 12 mg/dL [facility] Protein / Creatinine Ratio, Urine 0.4 ratio [facility] Urine 05/31/2022 9:58 AM EDT 05/31/2022 10:05 AM EDT Narrative Resulting Agency Comment Spec In Lab Nguyễn Underwood MD URINE ORDERABLES [facility] [place] [address] documented in this encounter Visit Diagnoses Diagnosis Stage 3a chronic kidney disease Anemia, unspecified type Fatigue, unspecified type documented in this encounter Care Teams Head Paper Tester Relationship Specialty Start Date End Date Danya Acuna APRN [address] [place] [address] PCP - General Family Medicine 02/19/21 08/12/22 documented as of this encounter
--- OUTSIDE RECORDS SUMMARY | 2024-09-14 13:04 | XMS_ITS | Encounter Summary ---
Author Organization [facility] [place] [address] Care Team Providers Care Driller'S Offsider Name Role Phone Danya Acuna APRN Primary Care Provider [phone] Encounter Details Date Type Department Care Team (Late st Contact Info) Description 01/13/2022 Orders [place] [address] Kiet Pardo MD [facility] [place] [address] Scleroderma Social History Tobacco Use Types Packs/Day [...] 11:30 AM EST Office Visit Dermatology at [facility] [address] [place] [address] Jo Ordaz MD [facility] [place] [address] 12/13/2024 11:30 AM EST [place] [phone] 12/13/2024 1:00 PM EST Office [place] [phone] Kiet Pardo MD [facility] [place] [address] documented as of this encounter Visit Diagnoses Diagnosis Scleroderma Systemic sclerosis documented in this encounter Care Teams Driller'S Offsider Relationship Specialty Start Date End Date Danya Acuna APRN [address] [place] [address] PCP - General Family Medicine 02/19/21 08/12/22 documented as of this encounter
--- OUTSIDE RECORDS SUMMARY | 2024-09-14 13:04 | XMS_ITS | Encounter Summary ---
Author Organization [facility] Address [facility] [place] [address] Care Team Providers Care Director Of Medicare Name Role Phone Danya Acuna BRIGHT Primary Care Provider Encounter Details Date Type Department Care Team (Late st Contact Info) Description 04/13/2022 External [place] [phone] Provider, Scanning Social History Tobacco Use Types Packs/Day Years [...] 11:30 AM EST Office Visit Dermatology at [address] [place] [address] Jo Ordaz MD [facility] [place] [address] 12/13/2024 11:30 AM EST Appointment [place] [address] 12/13/2024 1:00 PM EST Office [place] [address] Kiet Pardo MD [facility] [address] [place] [phone] documented as of this encounter Procedures Procedure Name Priority Date/Time Associated Diagnosis Comments SURGICAL PATHOLOGY SCAN Routine 04/13/2022 documented in this encounter Results * Scan Doc: Surgical Pathology (04/13/2022) Historical Provider MD FAITH MGR SCAN EX T ORDR/RSLT documented in this encounter Visit Diagnoses Not on filedocumented in this encounter Care Teams Director Of Medicare Relationship Specialty Start Date End Date Danya Acuna APRN [address] [place] [address] [address] [place] [address] PCP - General Family Medicine 02/19/21 08/12/22 documented as of this encounter
--- OUTSIDE RECORDS SUMMARY | 2024-09-14 13:04 | XMS_ITS | Encounter Summary ---
[place] [address] Care Team Providers Care Marketing Manager Name Role Phone IndraDanya haq BRIGHT Primary Care Provider [phone] Encounter Details Date Type Department Care Team (Late st Contact Info) Description 03/10/2022 Telephone [place] [phone] Marquita Cam Social History Tobacco Use Types [...] encounter Miscellaneous Notes * Telephone Encounter - Maruqita Cam - 03/10/2022 12:45 PM EDT Spoke with patients , he will have pt call to schedule follow up appointment documented in this encounter Plan of Treatment Upcoming Encounters Date Type Department Care Team (Late st Contact Info) Description 10/07/2024 11:30 AM EST Office Visit Dermatology at [facility] [address] [place] [address] Jo Ordaz MD [facility] [place] [address] 12/13/2024 11:30 AM EST [place]ointment [place] [phone] 12/13/2024 1:00 PM EST Office [place] [phone] Kiet Pardo MD [facility] [place] [address] documented as of this encounter Visit Diagnoses Not on filedocumented in this encounter Care Teams Marketing Manager Relationship Specialty Start Date End Date Danya Acuna, TURNSTILE COLLECTOR [address] [place] [address] PCP - General Family Medicine 02/19/21 08/12/22 documented as of this encounter
--- OUTSIDE RECORDS SUMMARY | 2024-09-14 13:04 | XMS_ITS | Encounter Summary ---
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 Sucking on [...] occurs, please contact your Doctor. Please call [phone] before 8pm Mon-Fri with problems, questions or concerns. If you call after 8pm or on weekends, call the Hospital at [phone] and ask to speak to the Assistant Strength Coach road conductor and the vacuum frame operator will contact that person for you. [...] any problems. Where can you learn more? [facility] View your After Visit Summary and more online at [email or web address] If you would like to provide feedback about your hospital experience, please call the Office of Patient and Family Relations at . If you have received this After Visit Summary in error, please immediately return it in person to the department, or notify the [facility] Privacy Office by calling toll free at between the hours of 8AM and 5PM to arrange for our retrieval of the documents at no cost to you. Content Version: 12.2 ?? [id number] [employer]. Care instructions adapted under license by [facility]. If you have questions about a medical condition or this instruction, always ask your healthcare professional. [employer] disclaims any warranty or liability for your use of this information. * Patient Instructions* Andrew Berger MD - 01/12/2022 2:27 PM EST Please see Recommendations in the Provation procedure report which is documented in the procedural note in [facility]. documented in this encounter Medications at Time of Discharge Medication Sig Dispensed Refills Start Date End Date zoledronic wvas-rmccjloe-gubod (zoledronic Acid) 5 mg/100 mL infusion .every [...] Berger MD - 01/12/2022 2:03 PM EST [facility] Operative Note Patient Name: Amber Wells : [id number] MR#: [id number] Case Date: 01/12/2022 Surgeon: Surgeon(s) and Role: [...] 11:30 AM EST Office Visit Dermatology at [facility] [address] [place] [address] Jo Ordaz MD [facility] [place] [address] 12/13/2024 11:30 AM EST Appointment [place] [phone] 12/13/2024 1:00 PM EST Office Visit [place] [phone] Kiet Pardo MD [facility] [place] [address] Scheduled Orders Name Type Priority Associated Diagnoses Orde r Schedule ENDOSCOPY CASE REQUEST: EGD, UPPER GI ENDOSCOPY Procedures Routine Joseph's esophagus with high grade dysplasia Ordered: 01/12/2022 documented as of this encounter Procedures Procedure Name Priority Date/Time Associated Diagnosis Comments Edg Flexible Transoral Ablate Tumor Polyp/Lesion W/Dilation & Wire (42979) 01/12/2022 2:01 PM EST Joseph's esophagus with high grade dysplasia UPPER GI ENDOSCOPY Routine 01/12/2022 1: 49 PM EST documented in this encounter Results * UPPER GI ENDOSCOPY (01/12/2022 1:49 PM EST) UPPER GI ENDOSCOPY [facility] Endoscopy ___ Procedure Date: 01/12/2022 1:49 PM ? Patient Name: Amber Wells ? Date of : 1960 ? Age: 61 ? Order #: [id number] ? Instrument Name: [id number] ? ___ Procedure: ? Upper GI endoscopy Indications: ? Joseph's high grade dysplasia, ? Follow-up of previous ablation ? treatment of Joseph's esophagus Providers: ? Andrew Berger MD, Debbie Ortega ? [place] Garcia, [place] Ferroar Referring MD: ?Danya Acuna Medicines: ? Propofol per [...] Primary Joseph's esophagus documented in this encounter Administered [...] CRNA) documented in this encounter Care Teams Civil Litigation Attorney Relationship Specialty Start Date End Date Danya Acuna APRN [address] [place] [address] PCP - General Family Medicine 02/19/21 08/12/22 documented as of this encounter
--- OUTSIDE RECORDS SUMMARY | 2024-09-14 13:04 | XMS_ITS | Encounter Summary ---
Author Organization [facility] [place] [address] Care Team Providers Care Hobbing Machine Operator Name Role Phone Danya Acuna APRN Primary Care Provider Encounter Details Date Type Department Care Team (Late st Contact Info) Description 12/20/2021 Orders [place] [address] Anant Perez PA [address] [place] [address] Other osteoporosis, unspecified pathological fracture presence; Stage 3 chronic kidney disease, unspecified whether stage 3a or 3b CKD; Scleroderma; Medication monitoring encounter Social History Tobacco Use [...] 11:30 AM EST Office Visit Dermatology at [facility] [address] [place] [phone] Jo Ordaz MD [facility] [place] [address] 12/13/2024 11:30 AM EST Appointment Pulmonology at [place] [phone] 12/13/2024 1:00 PM EST Office [place] [address] Kiet Pardo MD [facility] [place] [address] documented as of this encounter Results * (ABNORMAL) PTH (12/20/2021 2:16 PM EST) Pathologist [facility] Parathyroid Hormone 81(H) 15 - 65 pg/mL [facility] Blood 12/20/2021 2:16 PM EST 12/20/2021 2:26 PM EST Narrative Resulting Agency Comment Spec In Lab Kev Lind MD CHEMISTRY ORDERABLES Performing Organization Address [facility]/ZIP Co de Phone Number [facility] [place] [address] * Phosphorus (12/20/2021 2:16 PM EST) Pathologist [facility] Phosphorus 2.7 2.5 - 4.5 mg/dL [facility] Blood 12/20/2021 2:16 PM EST 12/20/2021 2:26 PM EST Narrative Resulting Agency Comment Spec In Lab Kev Lind MD CHEMISTRY ORDERABLES Performing Organization Address [facility]/ZIP Co de Phone Number [facility] [place] [address] * (ABNORMAL) Comprehensive metabolic panel (non-fasting) (12/20/2021 2:16 PM EST) Glucose 77 65 - 199 mg/dL [facility] Comment:Diabetes: >=200 mg/d L plus symptoms Blood Urea Nitrogen 18 8 - 18 mg/dL [facility] Creatinine 1.18 0.70 - 1.20 mg/dL [facility] Sodium 141 135 - 145 mmol/L [facility] Potassium 4.7 3.5 - 5.0 mmol/L [facility] Comment: Please note: ??Patients with WBC >100,000 may have falsely elevated Potassium levels. ??For accurate Potassium quantification in these patients send serum separator tube (gold top) for subsequent determinations. ??Contact the Clinical Chemistry Laboratory if there are any questions. Chloride 105 98 - 107 mmol/L [facility] Carbon Dioxide 22 22 - 31 mmol/L [facility] Anion Gap 14 5 - 15 mmol/L [facility] Calcium 9.5 8.5 - 10.5 mg/dL [facility] Protein, Total 7.3 6.1 - 8.0 g/dL [facility] Albumin 4.7 3.2 - 5.2 g/dL [facility] Aspartate Aminotransferase 18 0 - 30 unit/L [facility] Alanine Aminotransferase 15 0 - 30 unit/L [facility] Alkaline Phosphatase 66 35 - 105 unit/L [facility] Bilirubin, Total 0.2 0.2 - 1.3 mg/dL [facility] Est Glomerular Filtration Rate 50(L) >=60 mL/min/1. 73 m?? [facility] Comment: This patient? s estimated [...] In Lab Kev Lind MD CHEMISTRY ORDERABLES [facility] [place] [address] documented in this encounter Visit Diagnoses Diagnosis Other osteoporosis, unspecified pathological fracture presence Stage 3 chronic kidney disease, unspecified whether stage 3a or 3b CKD Scleroderma Systemic sclerosis Medication monitoring encounter Encounter for therapeutic drug monitoring documented in this encounter Care Teams Hobbing Machine Operator Relationship Specialty Start Date End Date Danya Acuna APRN [address] [place] [address] PCP - General Family Medicine 02/19/21 08/12/22 documented as of this encounter
--- OUTSIDE RECORDS SUMMARY | 2024-09-14 13:04 | XMS_ITS | Encounter Summary ---
Author Organization [facility] [place] [address] Care Team Providers Care Computer Numerical Control Operator Name Role Phone Danya Acuna APRN Primary Care Provider [phone] Reason for Visit * Reason Comments Medication Refill Encounter Details Date Type Department Care Team (Late st Contact Info) Description 06/23/2022 [place] [address] Kiet Pardo MD [facility] [place] [address] Social History Tobacco Use Types Packs/Day Years [...] 11:30 AM EST Office Visit Dermatology at [facility] [address] [place] [address] Jo Ordaz MD [facility] [place] [address] 12/13/2024 11:30 AM EST Appointment Pulmonology at [place] [phone] 12/13/2024 1:00 PM EST Office Visit Rheumatology at [place] [phone] Kiet Pardo MD [facility] [address] documented as of this encounter Visit Diagnoses Not on filedocumented in this encounter Care Teams Computer Numerical Control Operator Relationship Specialty Start Date End Date Danya Acuna APRN [address] [place] [address] PCP - General Family Medicine 02/19/21 08/12/22 documented as of this encounter
--- OUTSIDE RECORDS SUMMARY | 2024-09-14 13:04 | XMS_ITS | Encounter Summary ---
Author Organization [facility] Address [facility] [place] [address] Care Team Providers Care Electrical Instrument Repairer Name Role Phone Danya Acuna BRIGHT Primary Care Provider [phone] Encounter Details Date Type Department Care Team (Late st Contact Info) Description 01/12/2022 2:01 PM EST Anesthesia Event [place] [address] Lopez King MD [facility] [place] [address] Anesthesia Record Procedure Summary Procedure Name Responsible Anesthesiologist Anesthesia Start Time Anesthesia Stop Time EGD, TRANSORAL; WITH ABLATION OF TUMOR(S), POLYP(S), OR OTHER LESION(S) (WRVU 4.01) (Esophagus) Lopez King MD 01/12/22 1401 01/12/22 1424 Events Date Time Event Comment 01/12/2022 1311 1401 AN Verify 1401 Start 1401 An Start Data 1408 An Induction 1408 Anesthesia Ready 1424 an stop data 1424 Recovery or ICU Handoff Lorri ent care was transferred to the destination unit staff after review of the patient's medical history, current anesthetic/surgical status and plan, according to the Provider Handoff Checklist. 1424 Stop Meds Name Total Midazolam 2 mg IV Lidocaine 50 mg Propofol 150 mg Propofol INF 146.28 mg lactated ringers infusion 800 mL * Agents Name O2 Auxiliary Flowmeter [...] Bundy RN 07/18/22 1715 by Dena Armendariz (RETIRED) Peripheral IV Line - Single Lumen 01/12/22; 1303; cephalic vein (lateral side of arm), right; [id number] catheter system; Anatomical Landmarks; US Not Used; 22 gauge; Cale Cohen RN; appears comfortable, tolerated well; 01/12/22; 1455 01/12/22 1303 by Jaiden Cohen RN 01/12/22 1455 by Braden Dunlap RN documented in this encounter Social History [...] OR Notes * Anesthesia Postprocedure Evaluation - Lopez King MD - 01/12/2022 2:51 PM EST Department of Anesthesiology Post-procedure Note Patient: Amber Wells Procedure Summary Date: 01/12/22 Room / Location: [facility] ENDO 2 / [facility]COPY Anesthesia Start: 1401 Anesthesia Stop: 1424 Procedure: EGD, TRANSORAL; WITH ABLATION OF TUMOR(S), POLYP(S), OR OTHER LESION(S) (WRVU 4.26) (N/AEsophagus) 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 ablation) Surgeons: Andrew Berger MD Responsible Provider: Lopez King MD Anesthesia Type: MAC ASA Status: 3 All Anesthesia Providers: Anesthesiologist: Lopez King MD PRODUCTION PACKAGER: Alden Vilchis CRNA Vitals Value Taken Time BP 146/86 01/12/22 1450 Temp Pulse Resp 16 01/12/22 1430 SpO2 100 % 01/12/22 1450 Pain Level 0 01/12/22 1430 Vitals shown include unvalidated device data. Patient Location: PACU/[facility] Level of Consciousness: Awake and Alert Pain Management: Satisfactory Analgesia PONV: None Cardiovascular Status: At Baseline and Hemodynamically Stable Respiratory Status: At Baseline and Room Air Postoperative Fluid Status: Intravascular EUvolemia Possible Anesthetic Complications: NONE apparent at time of evaluation Final Primary Anesthesia Type: MAC (The anesthetic type performed was the same as planned.) Comments: Lopez King MD * Anesthesia Preprocedure Evaluation - Lopez King MD - 01/12/2022 11:30 AM EST Pre-Anesthesia Evaluation for: Amber Wells a 61 y.o. female. Procedure(s): EGD, UPPER GI ENDOSCOPY Patient Active Problem List Diagnosis ??? Lesion of skin of scalp ??? Joseph's esophagus ??? Raynaud's disease without gangrene ??? Swelling of extremity, right ??? Fecal incontinence ??? Altered bowel habits ??? 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 Mitosis 12/10HPF ??? AK (actinic keratosis) ??? Solar lentigo ??? Multiple nevi ??? Anemia of chronic renal failure, stage 4 (severe) ??? GERD (gastroesophageal reflux disease) ??? 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 Scleroderma Past Medical History: Diagnosis Date ??? Anemia [...] dialysis for 2 months in 2009 ??? care home current use of opiate analgesic Codeine -tylenols [...] ARM performed by Andre Marroquin MD at [facility] MAIN OR ??? PRO COLONOSCOPY, DIAGNOSTIC N/A 01/31/2019 COLONOSCOPY, DIAGNOSTIC performed by Andrew Berger MD at [facility] ENDOSCOPY ? ? PRO EDG FLEXIBLE TRANSORAL ABLATE TUMOR POLYP/LESION W/DILATION & WIRE N/A 10/12/2021 EGD, TRANSORAL; WITH ABLATION OF TUMOR(S), POLYP(S), OR OTHER LESION(S) (WRVU 4.26) performed by Andrew Berger MD at [facility] ENDOSCOPY ??? PRO ENDOSCOPIC US EXAM, ESOPH N/A 03/29/2016 UPPER EUS- ENDOSCOPIC ULTRASOUND performed by Daryrl Ash MD at [facility] ENDOSCOPY ??? PRO RAD RESECT/TUMOR, SOFT TISSUE BACK/FLANK, 5CM OR GREATER Right 06/22/2020 RADICAL RESECTION TUMOR BACK OR FLANK; 5 CM OR GREATER (WRVU 22.55) performed by Solomon Quiros MD at [facility] OSC ??? PRO REBL VES VEIN GRFT, UP EXTREM Left 04/08/2016 REPAIR BLOOD VESSEL WITH VEIN GRAFT, UPPER EXTREMITY performed by Andre Marroquin MD at [facility] MAIN OR ??? PRO UPPER GI ENDOSCOPY, BIOPSY N/A 03/29/2016 UPPER GASTROINTESTINAL ENDOSCOPY,WITH BIOPSY SINGLE OR MULTIPLE performed by Darryl Ash MD at [facility] ENDOSCOPY ??? PRO UPPER GI ENDOSCOPY, BIOPSY N/A 01/10/2018 EGD WITH BIOPSY (WRVU 2.49) performed by Andrew Berger MD at [facility] ENDOSCOPY ??? PRO UPPER GI ENDOSCOPY, BIOPSY N/A 08/23/2021 EGD WITH BIOPSY (WRVU 2.49) performed by Andrew Berger MD at [facility] ENDOSCOPY ??? PRO UPPER GI ENDOSCOPY, DIAGNOSTIC N/A 08/23/2021 EGD, UPPER GI ENDOSCOPY performed by Andrew Berger MD at [facility] ENDOSCOPY ??? PRO VEIN BYPASS GRAFT, BRACHIAL ULNAR OR RADIAL Right 10/07/2016 @BYPASS GRAFT, BRACHIAL-ULNAR OR RADIAL W\VEIN (VASC) performed by Andre Marroquin MD at [facility] MAIN OR ??? 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 Smoking status: Former Smoker Packs/day: 1.00 Years: 10.00 Pack years: 10.00 Types: Cigarettes Quit date: 03/30/1988 Years since quittin.8 ??? Smokeless tobacco: Never Used ??? Tobacco comment: never vape Substance Use Topics ??? Alcohol use: Yes Alcohol/week: 0.0 - 1.0 standard drinks Comment: once a week Social History Substance and Sexual Activity Drug Use No Allergies Allergen Reactions ??? Other [Unclassified Drug] Lobster--weird sensation ??? Shellfish Derived Medications: MAR and/or home medications have been reviewed. Physical Exam: Preprocedure Vitals Current as of 10/12/21 0851 No BP, pulse, respiration, SpO2, or temperature recorded. Height: Weight: BMI: IBW: Airway Assessment: Mallampati: I TM distance: >3 FB Neck ROM: full Cardiovascular Assessment: Rhythm: regular Rate: normal Pulmonary Assessment: unlabored breathing pulmonary exam normal Dental Assessment: Misc Assessment: Patient is wearing No contact(s). IV access: Peripheral line Last Filed Perioperative Cognitive Screening None Anesthesia Plan: ASA 3 MAC, with a(n) intravenous induction Attending Assessment: Patient personally seen and examined. 61yo F with Joseph's esophagus presenting for EGD. Requests Versed prior to entering procedure room as she is very nervous and doesn't want to see it. Received Versed 2mg for last EGD which worked very well, propofol MAC intraop. PMH: CREST/Scleraderma, CKD stage 4, Anemia No cardiac or pulmonary problems. No recent URI. Well-controlled GERD (asymptomatic in preop). Took 2 PPI's this morning No problems with anesthesia in the past. Meds: reviewed NPO status adequate Plan: - standard ASA monitors, PIV - MAC, with GA as backup The patient was informed of the risks, benefits and alternatives of anesthesia. These risks included, but were not limited to, post-operative nausea and/or vomiting, pain, sore throat, dental/lip injury, and other rare but serious complications such as cardiac instability/arrest, neurologic event, awareness, severe allergic reactions, position-related nerve injuries, and need blood transfusions. All questions sought and answered. Consent was signed and placed in chart. Region - Other Informed Consent: Anesthetic plan and risks discussed with patient. Plan discussed with PRODUCTION PACKAGER. Anesthesia Screening documented in this encounter Miscellaneous Notes * Addendum Note - Alden Vilchis CRNA - 01/12/2022 4:24 PM EST Addendum created 01/12/22 1624 by Alden Vilchis CRNA Intraprocedure Meds edited documented in this encounter Plan of Treatment Upcoming Encounters Date Type Department Care Team (Late st Contact Info) Description 10/07/2024 11:30 AM EST Office Visit Dermatology at [address] [address] Jo Ordaz MD [facility] [place] [address] 12/13/2024 11:30 AM EST Appointment [place] [address] 12/13/2024 1:00 PM EST Office Visit [place] [phone] Kiet Pardo MD [facility] [place] [address] documented as of this encounter Visit Diagnoses [...] 1:04 PM EST 100 mL/hr 100 mL/hr lidocaine (pf) (Xylocaine) (20 mg/mL) 2% injection syringe Intravenous, PRN, Starting on Mon01/12/22 at 1408, Until Mon01/12/22 at 1424, Anesthesia Intra-op, Routine Given 01/12/2022 2:08 PM EST 50 mg midazolam (pf) (Versed) (1 mg/mL) multi-dose injection Intravenous, PRN, Starting on Mon01/12/22 at 1401, Until Mon01/12/22 at 1624, Anesthesia Intra-op, Routine Given 01/12/2022 2:01 PM EST 2 mg propofoL (Diprivan) (10 mg/mL) infusion Intravenous, CONTINUOUS PRN, Starting on Mon01/12/22 at 1408, Until Mon01/12/22 at 1424, Anesthesia Intra-op, Routine Rate/Dose Change 01/12/2022 2:10 PM EST 200 mcg/kg/min 76.32 mL/hr New Bag 01/12/2022 2:08 PM EST 150 mcg/kg/min 57.24 mL/ hr propofoL (Diprivan) 10 mg/mL bolus injection (Anesthesia) Intravenous, PRN, Starting on Mon01/12/22 at 1410, Until Mon01/12/22 at 1424, Anesthesia Intra-op Given 01/12/2022 2:10 PM EST 50 mg Given 01/12/2022 2:08 PM EST 100 mg documented in this encounter Care Teams Electrical Instrument Repairer Relationship Specialty Start Date End Date Danya Acuna, BRIGHT [address] [place] [address] PCP - General Family Medicine 02/19/21 08/12/22 documented as of this encounter
--- OUTSIDE RECORDS SUMMARY | 2024-09-14 13:04 | XMS_ITS | Encounter Summary ---
Author Organization [facility] [place] [address] Care Team Providers Care Assistance Coordinator Name Role Phone Danya Acuna APRN Primary Care Provider [phone] Encounter Details Date Type Department Care Team (Late st Contact Info) Description 04/20/2022 Orders [place] [address] Kiet Pardo MD [facility] [place] [address] Social History Tobacco Use Types Packs/Day Years [...] 11:30 AM EST Office Visit Dermatology at [facility] [address] [place] [address] Jo Ordaz MD [facility] [place] [address] 12/13/2024 11:30 AM EST Appointment [place] [phone] 12/13/2024 1:00 PM EST Office [place] [phone] Kiet Pardo MD [facility] [place] [address] documented as of this encounter Visit Diagnoses Not on filedocumented in this encounter Care Teams Assistance Coordinator Relationship Specialty Start Date End Date Danya Acuna APRN [address] [place] [address] PCP - General Family Medicine 02/19/21 08/12/22 documented as of this encounter
--- OUTSIDE RECORDS SUMMARY | 2024-09-14 13:04 | XMS_ITS | Encounter Summary ---
[place] [address] Care Team Providers Care Business Management Manager Name Role Phone Armand Danya Dinora NOVOA Primary Care Provider [phone] Encounter Details Date Type Department Care Team (Late st Contact Info) Description 02/01/2022 Telephone [place] [phone] ArchieFebruary Social History Tobacco Use Types Packs/Day [...] Notes * Telephone Encounter - February - 02/01/2022 3:48 PM EDT Amber Wells [id number] Diagnosis/Indication: 3 mo f/u durbin's ablation 1. Have you ever had a/an Upper Endoscopy before? Yes: Date 01/11/22 If yes, did you have any problems [...] had a problem with sedation or anesthesia? Yes 9. Do you use a c-pap machine [...] to patient: You must have a responsible green party who will drive you to your procedure, stay [place] for the entire duration of your procedure, and drive you home from your procedure? *Please Verify the height and weight, and adjust if height and/or weight have changed* Estimated body mass index is 22.29 kg/m?? as calculated from the following: Height as of 10/12/21: 168.9 cm (5' 6.5). Weight as of 12/20/21: 63.6 kg (140 lb 3.2 oz). Age:61 y.o. documented in this encounter Plan of Treatment Upcoming Encounters Date Type Department Care Team (Late st Contact Info) Description 10/07/2024 11:30 AM EST Office Visit Dermatology at [facility] [address] [place] [address] Jo Ordaz MD [facility] [place] [address] 12/13/2024 11:30 AM EST Appointment [place] [address] 12/13/2024 1:00 PM EST Office [place] [address] Kiet Padro MD [facility] [place] [address] documented as of this encounter Visit Diagnoses Not on filedocumented in this encounter Care Teams Business Management Manager Relationship Specialty Start Date End Date Danya Acuna APRN [address] [place] [address] PCP - General Family Medicine 02/19/21 08/12/22 documented as of this encounter
--- OUTSIDE RECORDS SUMMARY | 2024-09-14 13:04 | XMS_ITS | Encounter Summary ---
[place] [address] Care Team Providers Care Mva Reactor Operator Head Name Role Phone Danya Acuna BRIGHT Primary Care Provider Encounter Details Date Type Department Care Team (Late st Contact Info) Description 05/09/2022 Orders Only Nephrology [place] [address] Jocelyn Salas RN Stage 3a chronic kidney disease Social [...] as of this encounter Miscellaneous Notes * Addendum Note - Abe Veronica MD - 05/09/2022 11:06 AM EDTAddended by: ABE VERONICA on: 05/23/2022 09:22 PM Modules accepted: Orders documented in this encounter Plan of Treatment Upcoming Encounters Date Type Department Care Team (Late st Contact Info) Description 10/07/2024 11:30 AM EST Office Visit Dermatology at [facility] [address] [address] Jo Ordaz MD [facility] [place] [address] 12/13/2024 11:30 AM EST Appointment [place] [address] 12/13/2024 1:00 PM EST Office [place] [address] Kiet Pardo MD [facility] [place] [address] documented as of this encounter Results * Vitamin D, 25-Hydroxy (05/31/2022 10:02 AM EDT) Vitamin D Total 25 OH 51 21 - 100 ng/mL [facility] Vit D Interp Sufficient [facility] Blood 05/31/2022 10:0 2 AM EDT 05/31/2022 10:16 AM EDT Narrative Resulting Agency Comment Spec In Lab Abe Veronica MD CHEMISTRY ORDERABLES Performing Organization Address City/[facility]/ZIP Co de Phone Number [facility] [place] [address] * PTH (05/31/2022 10:02 AM EDT) Parathyroid Hormone 62 15 - 65 pg/mL [facility] Blood 05/31/2022 10:0 2 AM EDT 05/31/2022 10:16 AM EDT Narrative Resulting Agency Comment Spec In Lab bAe Veronica MD CHEMISTRY ORDERABLES [facility] [place] [address] * Uric acid (05/31/2022 10:02 AM EDT) Uric Acid 5.6 2.5 - 6.5 mg/dL [facility] Blood 05/31/2022 10:0 2 AM EDT 05/31/2022 10:15 AM EDT Narrative Resulting Agency Comment Spec In Lab Abe Veronica MD CHEMISTRY ORDERABLES [facility] [place] [address] * Phosphorus (05/31/2022 10:02 AM EDT) Phosphorus 3.1 2.5 - 4.5 mg/dL [facility] Blood 05/31/2022 10:0 2 AM EDT 05/31/2022 10:15 AM EDT Narrative Resulting Agency Comment Spec In Lab Abe Veronica MD CHEMISTRY ORDERABLES [facility] [place] [address] documented in this encounter Visit Diagnoses Diagnosis Stage 3a chronic kidney disease documented in this encounter Care Teams Mva Reactor Operator Head Relationship Specialty Start Date End Date Danya Acuna APRN [address] [place] [address] PCP - General Family Medicine 02/19/21 08/12/22 documented as of this encounter
--- OUTSIDE RECORDS SUMMARY | 2024-09-14 13:05 | XMS_ITS | Encounter Summary ---
Author [facility] [place] [address] Care Team Providers Care Monotype Mechanic Name Role Phone Danya Acuna APRN Primary Care Provider [phone] Encounter Details Date Type Department Care Team (Late st Contact Info) Description 08/23/2021 3:33 PM EDT Anesthesia Event [place] [address] Arnold Payton MD [facility] [place] [address] Gorge Nance CRNA [facility] [place] [address] Anesthesia Record Procedure Summary Procedure Name Responsible Anesthesiologist Anesthesia Start Time Anesthesia Stop Time EGD WITH BIOPSY (WRVU 2.39) (Trunk) Arnold Payton MD 08/23/21 1533 08/23/21 1549 Events Date Time Event Comment 08/23/2021 1503 1533 AN Verify 1533 Start 1533 An Start Data 1536 An Induction 1536 Anesthesia Ready 1549 an stop data 1549 Recovery or ICU Handoff Lorri ent care was transferred to the destination unit staff after review of the patient's medical history, current anesthetic/surgical status and plan, according to the Provider Handoff Checklist. 1549 Stop Meds Name Total Midazolam 2 mg IV Lidocaine 50 mg Propofol 200 mg Propofol INF 246.09 mg Ondansetron 4 mg lactated ringers infusion 400 mL * Agents Name O2 Air N2O * Blood No blood administrations on file. [...] (RETIRED) Peripheral IV Line - Single Lumen 07/15/21; 1115; cephalic vein (lateral side of arm), left; [id number] catheter system; 22 gauge; distraction, intradermal injection, tolerated well; 08/23/21; 1526 07/15/21 1115 by Jairo Campbell LPN 08/23/21 1526 by Meghann Kumar RN (RETIRED) Peripheral IV Line - Single Lumen 08/23/21; 1510; basilic vein (medial side of arm), right; [id number]-ksm-esaaek catheter system; 22 gauge; hayden lagunas rn; distraction, intradermal injection, tolerated well, appears comfortable; 08/23/21; 1618 08/23/21 1510 by Meghann Kumar RN 08/23/21 1618 by Kalli Corley RN documented in this encounter Social History [...] OR Notes * Anesthesia Postprocedure Evaluation - Arnold Payton MD - 08/23/2021 5:00 PM EDT Department of Anesthesiology Post-procedure Note Patient: Amber Wells Procedure Summary Date: 08/23/21 Room / Location: [facility] ENDO 2 / [facility] END[facility]COPY Anesthesia Start: 1533 Anesthesia Stop: 154 Procedures: EGD WITH BIOPSY (WRVU 2.49) (N/A Trunk) EGD, UPPER GI ENDOSCOPY (N/A Trunk) Diagnosis: (F/u barretts) Surgeons: Andrew Berger MD Responsible Provider: Arnold Payton MD Anesthesia Type: general ASA Status: 3 All Anesthesia Providers: Anesthesiologist: Arnold Payton MD ORACLE ERP DEVELOPER: Gorge Nance CRNA Vitals Value Taken Time BP 140/88 08/23/21 1620 Temp Pulse 82 08/23/21 1555 Resp 16 08/23/21 1610 SpO2 95 % 08/23/21 1624 Pain Level 0 08/23/21 1610 Vitals shown include unvalidated device data. Patient Location: PACU/[facility] Level of Consciousness: Awake and Alert Pain Management: Satisfactory Analgesia PONV: None Cardiovascular Status: At Baseline and Hemodynamically Stable Respiratory Status: At Baseline and Room Air Postoperative Fluid Status: Intravascular EUvolemia Possible Anesthetic Complications: NONE apparent at time of evaluation Final Primary Anesthesia Type: MAC (The anesthetic type performed was the same as planned.) Comments: Arnold Payton MD * Anesthesia Preprocedure Evaluation - Arnold Payton MD - 08/23/2021 3:01 PM EDT Pre-Anesthesia Evaluation for: Amber Wells a 61 y.o. adult. Procedure(s): EGD, UPPER GI ENDOSCOPY Patient Active Problem List Diagnosis ??? Lesion of skin of scalp ??? Joseph's esophagus ??? Raynaud's disease without gangrene ??? Swelling of extremity, right ??? Fecal incontinence ??? Altered bowel habits ??? 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 Mitosis 10/29HPF ??? AK (actinic keratosis) ??? Solar lentigo ??? Multiple nevi ??? Anemia of chronic renal failure, stage 4 (severe) ??? GERD (gastroesophageal reflux disease) ??? 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 Scleroderma Past Medical History: Diagnosis Date ??? Anemia associated with chronic renal failure ??? Anemia in CKD (chronic kidney disease) ??? Anemia of chronic renal failure, stage 4 (severe) ??? Arthritis ??? Bowel disease Chronique constipation, Joseph syndrome eosophagus ??? Chronic kidney disease 2009 Dialysis AprilJun 2010, producing hemoglobin since Oct. ??? Chronic pain Left shoulder, middle back, [...] dialysis for 2 months in 2009 ??? alf current use of opiate analgesic Codeine -tylenols [...] ARM performed by Andre Marroquin MD at [facility] MAIN OR ??? PRO COLONOSCOPY, DIAGNOSTIC N/A 01/31/2019 COLONOSCOPY, DIAGNOSTIC performed by Andrew Berger MD at [facility] ENDOSCOPY ??? PRO ENDOSCOPIC US EXAM, ESOPH N/A 03/29/2016 UPPER EUS- ENDOSCOPIC ULTRASOUND performed by Darryl Ash MD at [facility] ENDOSCOPY ??? PRO RAD RESECT/TUMOR, SOFT TISSUE BACK/FLANK, 5CM OR GREATER Right 06/22/2020 RADICAL RESECTION TUMOR BACK OR FLANK; 5 CM OR GREATER (WRVU 22.55) performed by Solomon Quiros MD at [facility] OSC ??? PRO REBL VES VEIN GRFT, UP EXTREM Left 04/08/2016 REPAIR BLOOD VESSEL WITH VEIN GRAFT, UPPER EXTREMITY performed by Andre Marroquin MD at [facility] MAIN OR ??? PRO UPPER GI ENDOSCOPY, BIOPSY N/A 03/29/2016 UPPER GASTROINTESTINAL ENDOSCOPY,WITH BIOPSY SINGLE OR MULTIPLE performed by Darryl Ash MD at [facility] ENDOSCOPY ??? PRO UPPER GI ENDOSCOPY, BIOPSY N/A 01/10/2018 EGD WITH BIOPSY (WRVU 2.49) performed by Andrew Berger MD at [facility] ENDOSCOPY ??? PRO VEIN BYPASS GRAFT, BRACHIAL ULNAR OR RADIAL Right 10/07/2016 @BYPASS GRAFT, BRACHIAL-ULNAR OR RADIAL W\VEIN (VASC) performed by Andre Marroquin MD at [facility] MAIN OR ??? 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 Smoking status: Former Smoker Packs/day: 1.00 Years: 10.00 Pack years: 10.00 Types: Cigarettes Quit date: 03/30/1988 Years since quittin.4 ??? Smokeless tobacco: Never Used Substance Use Topics ??? Alcohol use: Yes Alcohol/week: 1.0 standard drink Types: 1 Glasses of wine per week Comment: once a week Social History Substance and Sexual Activity Drug Use No Allergies Allergen Reactions ??? Other [Unclassified Drug] Lobster--weird sensation Medications: MAR and/or home medications have been reviewed. Physical Exam: Preprocedure Vitals Current as of 08/23/21 1501 No BP, pulse, respiration, SpO2, or temperature recorded. Height: Weight: BMI: IBW: Airway Assessment: Mallampati: II TM distance: >3 FB Neck ROM: full Cardiovascular Assessment: Rhythm: regular Rate: normal Pulmonary Assessment: unlabored breathing Dental Assessment: Misc Assessment: IV access: Peripheral line Last Filed Perioperative Cognitive Screening None Anesthesia Plan: ASA 3 general, with a(n) intravenous induction 61 yo female for EGD under propofol. Hx of CREST/Scleraderma, CKD stage 4, Anemia Region - Other Informed Consent: Anesthetic plan and risks discussed with patient. Plan discussed with ORACLE ERP DEVELOPER. Anesthesia Screening documented in this encounter Plan of Treatment Upcoming Encounters Date Type Department Care Team (Late st Contact Info) Description 10/07/2024 11:30 AM EST Office Visit Dermatology at [address] [address] Jo Ordaz MD [facility] [place] [address] 12/13/2024 11:30 AM EST Appointment [place] [address] 12/13/2024 1:00 PM EST Office [place] [phone] Kiet Pardo MD [facility] [place] [address] documented as of this encounter Visit Diagnoses Not on filedocumented in this encounter Administered Medications Inactive Administered Medications - up to 3 most recent administrations Medication Order MAR Action Action Date Dose Rate Site lactated ringers infusion 100 mL/hr, Intravenous, CONTINUOUS, Starting on Mon08/23/21 at 1545, Until Mon08/23/21 at 1619, Endoscopy (Day of Procedure) Restarted 08/23/2021 3:42 PM EDT New Bag 08/23/2021 3:10 PM EDT 100 mL/hr 100 mL/hr lidocaine (pf) (Xylocaine) (20 mg/mL) 2% injection syringe Intravenous, PRN, Starting on Mon08/23/21 at 1536, Until Mon08/23/21 at 1549, Anesthesia Intra-op, Routine Given 08/23/2021 3:36 PM EDT 50 mg midazolam (pf) (Versed) (1 mg/mL) multi-dose injection Intravenous, PRN, Starting on Mon08/23/21 at 1526, Until Mon08/23/21 at 1549, Anesthesia Intra-op, Routine Given 08/23/2021 3:26 PM EDT 2 mg ondansetron (pf) (Zofran) (2 mg/mL) injection Intravenous, PRN, Starting on Mon08/23/21 at 1543, Until Mon08/23/21 at 1549, Anesthesia Intra-op, Routine Given 08/23/2021 3:43 PM EDT 4 mg propofoL (Diprivan) 10 mg/mL bolus injection (Anesthesia) Intravenous, PRN, Starting on Mon08/23/21 at 1536, Until Mon08/23/21 at 1549, Anesthesia Intra-op Given 08/23/2021 3:36 PM EDT 200 mg propofoL (Diprivan) infusion Intravenous, CONTINUOUS PRN, Starting on Mon08/23/21 at 1536, Until Mon08/23/21 at 1549, Anesthesia Intra-op, Routine New Bag 08/23/2021 3:36 PM EDT 300 mcg/kg/min 113.58 mL/hr documented in this encounter Care Teams Monotype Mechanic Relationship Specialty Start Date End Date Danya Acuna APRN [address] [place] [address] [address] [place] [address] PCP - General Family Medicine 02/19/21 08/12/22 documented as of this encounter
--- OUTSIDE RECORDS SUMMARY | 2024-09-14 13:05 | XMS_ITS | Encounter Summary ---
Author Organization [facility] [place] [address] Care Team Providers Care Brim Setter Name Role Phone Danya Acuna APRN Primary Care Provider [phone] Encounter Details Date Type Department Care Team (Late st Contact Info) Description 10/12/2021 Orders [place] [address] Andrew Berger MD [facility] [place] [address] Social History Tobacco Use Types Packs/Day Years [...] Visit Dermatology at [facility] [address] [place] [address] Jo Ordaz MD [facility] [place] [address] 12/13/2024 11:30 AM EST [place] [phone] 12/13/2024 1:00 PM EST Office [place] [phone] Kiet Pardo MD [facility] [place] [address] documented as of this encounter Visit Diagnoses Not on filedocumented in this encounter Care Teams Brim Setter Relationship Specialty Start Date End Date Danya Acuna APRN [address] [place] [address] PCP - General Family Medicine 02/19/21 08/12/22 documented as of this encounter
--- OUTSIDE RECORDS SUMMARY | 2024-09-14 13:05 | XMS_ITS | Encounter Summary ---
[place] [address] Care Team Providers Care Recruitment Manager Name Role Phone Armand Danya Dinora NOVOA Primary Care Provider [phone] Reason for Visit * Reason Onset Date Comments Prior Authorization 05/31/2021 Encounter Details Date Type Department Care Team (Late st Contact Info) Description 05/31/2021 Telephone [place] [address] Jodi Pressley Prior Authorization Social History Tobacco Use Types Packs/Day Years Used Date Smoking Tobacco: Former Cigarettes 1 10 0 03/30/1978 - 03/30/1988 Smokeless Tobacco: Never Alcohol Use Standard Drinks/Week Comments Yes 1 (1 standard drink = 0.6 oz pur e alcohol) once a week Sex and Gender Information Value Date Recorded Sex Assigned at Female 09/17/2021 7:57 PM EDT Gender Identity Female 11/08/2018 9:52 PM EST Sexual Orientation Straight 07/09/2021 4: 47 PM EDT documented as of this encounter Miscellaneous Notes * Telephone Encounter - Jodi Pressley - 05/31/2021 1:11 PM EDT Images from the original note were not included. Medication Prior Authorization Pardo Medication name/dose/directions: Esomeprazole 40mg - twice daily Rationale for request: GERD Health plan: [place] Medicaid ([employer]) Authorizing medical device sales representative name: Leah Sent to health plan on: 05/31/21 Health plan decision: Denied Quantity approved: Authorization number: [id number] Start date: End date: documented in this encounter Plan of Treatment Upcoming Encounters Date Type Department Care Team (Late st Contact Info) Description 10/07/2024 11:30 AM EST Office Visit Dermatology at [facility] [address] [place] [address] Jo Ordaz MD [facility] [place] [address] 12/13/2024 11:30 AM EST [place]ointment [place] [address] 12/13/2024 1:00 PM EST Office [place] [address] Kiet Pardo MD [facility] [place] [address] documented as of this encounter Visit Diagnoses Not on filedocumented in this encounter Care Teams Recruitment Manager Relationship Specialty Start Date End Date Danya Acuna APRN [address] [place] [address] PCP - General Family Medicine 02/19/21 08/12/22 documented as of this encounter
--- OUTSIDE RECORDS SUMMARY | 2024-09-14 13:05 | XMS_ITS | Encounter Summary ---
Author Organization [facility] [place] [address] Care Team Providers Care Flagstone Layer Name Role Phone Danya Acuna APRN Primary Care Provider [phone] Reason for Visit * Reason Comments Medication Refill Encounter Details Date Type Department Care Team (Late st Contact Info) Description 09/11/2021 [place] [address] Kiet Pardo MD [facility] [place] [address] Scleroderma; CKD (chronic kidney disease) stage 3, [...] Dermatology at [facility] [address] [place] [address] Jo Ordaz MD [facility] [place] [address] 12/13/2024 11:30 AM EST Appointment [place] [address] 12/13/2024 1:00 PM EST Office [place] [address] Kiet Pardo MD [facility] [place] [address] documented as of this encounter Visit Diagnoses Diagnosis Scleroderma Systemic sclerosis CKD (chronic kidney disease) stage 3, GFR 30-59 ml/min Chronic kidney disease, Stage III (moderate) documented in this encounter Care Teams Flagstone Layer Relationship Specialty Start Date End Date Danya Acuna, CORPORATE LAWYER [address] [place] [address] PCP - General Family Medicine 02/19/21 08/12/22 documented as of this encounter
--- OUTSIDE RECORDS SUMMARY | 2024-09-14 13:05 | XMS_ITS | Encounter Summary ---
[place] [address] Care Team Providers Care Business Department Chair Name Role Phone Danya Acuna BRIGHT Primary Care Provider [phone] Reason for Referral * Diagnostic Test (Routine) - Closed Specialty Diagnoses / Procedures Referred By Wander hernandez Referred To Contact Cardiology Diagnoses Scleroderma Procedures Echocardiogram Transthoracic([facility] or [facility]) Kiet Pardo MD [facility] [place] [address] [place] [address] [facility] [place] [address] Referral ID Status Reason Start Date Expiration Date V isits Requested Visits Authorized [id number] Closed Specialty Service Requested 02/19/2021 02/19/2022 1 1 Reason for Visit * Reason Comments Follow-up Encounter Details Date Type Department Care Team (Late st Contact Info) Description 02/19/2021 11:30 AM EDT Office [place] [address] Kiet Pardo MD [facility] [place] [place] [address] Scleroderma Social History Tobacco Use Types Packs/Day [...] Sign Reading Time Taken Comments Blood Pressure 123/69 02/19/2021 11:18 AM EDT Pulse 70 02/19/2021 11:18 AM EDT Temperature 36.3 ??C (97.3 ??F) 02/19/2021 1 1:18 AM EDT Respiratory Rate 16 02/19/2021 11:1 8 AM EDT Oxygen Saturation 98% 02/19/2021 11: 18 AM EDT Inhaled Oxygen Concentration - - Weight 64.8 kg (142 lb 12.8 oz) 021 11:18 AM EDT Height 170.2 cm (5' 7) 02/19/2021 11:1 8 AM EDT Body Mass Index 22.37 02/19/2021 11:18 AM EDT documented in this encounter Progress Notes * Kiet Pardo MD - 02/19/2021 11:30 AM EDT This is a return visit for Ms. Cuevas with a history of diffuse scleroderma now approximately 20 years in duration complicated by renal crisis in 2009 requiring hemodialysis with the sequela of stage III CKD. Since her last visit Ms. 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 She reports no difficulty with dyspnea on exertion chronic cough. She has had her first Covid vaccine dose without difficulty she reports that she does take loperamide on a daily basis to consolidate her bowel movements but she reports troublesome bloating which is virtually continuous. Despite this her weight has been stable and her appetite remains good. Medications were reviewed. Current Outpatient Medications on File Prior to Visit Medication Sig Dispense Refill ??? melatonin 3 mg Tablet Take 3 mg by mouth nightly. ??? fish oil-omega-3 fatty acids 1,000 mg Capsule Take 1,000 mg by mouth daily. ??? esomeprazole (NexIUM) 40 mg Capsule, Delayed Release(E.C.) Take 1 capsule by mouth 2 times daily. 180 capsule 3 ??? lidocaine-prilocaine (EMLA) Cream APPLY TO THE AFFECTED AREA NEEDED 30 g 2 ??? fosinopriL (MONOPRIL) 20 mg Tablet TAKE 1 TABLET BY MOUTH ONCE DAILY 90 tablet 3 ??? amLODIPine (Norvasc) 10 mg Tablet TAKE 1 TABLET BY MOUTH ONCE DAILY (Patient taking differently: 5 mg.) 90 tablet 3 ??? calcium citrate (Calcitrate) 200 mg (950 mg) Tablet Take 1,200 mg by mouth daily. ??? sildenafiL (Revatio) 20 mg Tablet TAKE TWO TABLETS BY MOUTH EVERY MORNING, ONE TABLET BY MOUTH EVERY AFTERNOON AND TWO TABLETS BY MOUTH EVERY EVENING. 150 tablet 5 ??? augmented betamethasone dipropionate (DIPROLENE-AF) 0.05 % Ointment Apply topically to affectedarea on the right ear twice daily for 2 weeks, then only on weekends. 15 g 1 ??? acetaminophen-codeine (TYLENOL #3) 300-30 mg Tablet Take 2 tablets by mouth every 6 hours as needed for Pain. Reported on 03/29/2017 60 tablet 0 ??? glycerin, adult, Suppository daily as needed. 0 ??? LIDOCAINE 2 % Solution APPLY TO PAINFUL AREAS IF NEEDED 0 ??? acetaminophen (TYLENOL) 500 mg Tablet Take 2 tablets by mouth every 8 hours as needed for Pain.30 tablet 1 ??? loperamide (IMMODIUM) 2 mg Capsule Take 2 mg by mouth 4 times daily as needed for Diarrhea. ??? vitamin E 400 unit Capsule Take 400 Units by mouth daily. ??? Cholecalciferol, Vitamin D3, (VITAMIN D) 1,000 unit Cap Take 1 tablet by mouth daily. ??? nitroGLYcerin (NITROGLYN) 2 % ointment Place 0.5 inches onto the skin every 6 hours. No current facility-administered medications on file prior to visit. Physical examination: Blood pressure 123/69 pulse 70 O2 sat 98% weight 142 skin examination showed sclerodactyly but no detectable proximal skin sclerosis the chest showed clear lung rush the cardiac examination no accentuation of the pulmonic component of the second heart sound the abdomen was soft and nontender. There was no peripheral edema were mild flexion contractures at the PIP joints inboth hands. Impression: generally stable chronic diffuse scleroderma status post renal crisis with stable renalfunction (creatinine 1.05 with an estimated GFR of 58 12/14/2020). Bronwyn's gastrointestinal symptoms likely reflect worsening dysmotility related to loperamide which I recommended stopping as a trial. We will plan on a return encounter in approximately 6 months at which time we will do a screening echocardiogram documented in this encounter Plan of Treatment Upcoming Encounters Date Type Department Care Team (Late st Contact Info) Description 10/07/2024 11:30 AM EST Office Visit Dermatology at [address] [phone] Jo Ordaz MD [facility] [place] [address] 12/13/2024 11:30 AM EST [place]ment [place] [phone] 12/13/2024 1:00 PM EST [place] [address] Kiet Pardo MD [facility] [place] [address] documented as of this encounter Results * ECHO COMPLETE (09/24/2021 11:17 AM EDT) EF 67 HEARTLAB SYSTEM Anatomical Region Laterality Modality Other 09/24/2021 Narrative 09/24/2021 11:34 AM EDT Procedure: ?Transthoracic Echocardiogram Patient: ?EUNICE AMBER ? (Age): 1960(61y) Med Rec#: ? [id number] ?Sex: ?F ? [place] Loc: ? [facility] [place]Ht / Wt: ??167.6(cm)/62.6( Pt. Loc: ?Echo Lab ?BSA: ?1.71 Study Date: ?? 09/24/2021 ?Pt. Type: Outpatient Tape: ? Referring: LORIN Reading: Jean Pierre Stallings ??([id number]) K 12 Principal: Jossy Thompson Diagnosis: *Systemic sclerosis, unspecified (M34.9) BP: ? 129/76 SUMMARY: 1. The left ventricular chamber size, wall [...] the body of report for additional details. Findings ? : Left Ventricle: ? The left ventricular chamber size is normal. ?Left ventricular wall thickness is normal. ?There is no evidence of LVOT obstruction. ?No ventricular septal defect is visualized. ?There is normal global left ventricular systolic function. ?The quantitative left ventricular ejection fraction by biplane Benites's method is 67%. ?There are no left ventricular segmental wall motion abnormalities. ?Left ventricular diastolic function is normal. ?Doppler assessment is consistent with normal left sided filling pressure. Left Atrium: ? The left atrium is mildly dilated. ?There is no patent foramen ovale visualized. Right Ventricle: ? The right ventricle is normal in size. ?Right ventricular global systolic function is normal. ?The estimated pulmonary artery systolic pressure is 21 mmHg. ?The estimated right atrial pressure is 3 mmHg. Right Atrium: ? The right atrium is mildly dilated. Aortic Valve: ? The aortic valve is tricuspid. ?The aortic valve leaflets are mildly thickened. ?Systolic excursion of the aortic valve is normal. ?There is no evidence of aortic valve stenosis. ?Mild (1+/4+) aortic valve regurgitation is present. Mitral Valve: ? The mitral valve leaflets are mildly thickened. ?There is mild (1+/4+) mitral regurgitation present. Tricuspid Valve: ? The tricuspid valve appears normal in structure and function. ?There is mild (1+/4+) tricuspid regurgitation present. Pulmonic Valve: ? The pulmonic valve appears normal in structure and function. ?There is no evidence of pulmonic regurgitation. Pericardium: ? A trivial pericardial effusion is visualized. ?A pericardial fat pad is visualized. Aorta: ? The aortic root is normal in size. ?There is mild dilatation of the ascending aorta. 3.8cm Pulmonary Artery: ? The main pulmonary artery appears normal. Venous: ? The inferior vena cava appears normal in size. ?There is a greater than 50% respiratory change in the inferior vena cava dimension. Misc: ? Two-dimensional echo, spectral Doppler and color Doppler performed. Chambers 2D ?Value ?Units (Range) ? IVSd (2D) ? 1.11 ? cm ? LVPWd (2D) ?1.13 ? cm ? IVS:LVPW ratio (2D) 0.99 ? ratio ? RWT (2D) ?0.51 ? ratio ? RWT PW (2D) ? 0.51 ? ratio ? LVIDd (2D) ?4.39 ? cm ? LVIDs (2D) ?3.49 ? cm ? LVIDd (2D) index ?2.57 ? cm/m2 ? LVIDs (2D) index ?2.04 ? cm/m2 ? LV FS (2D) ?20.62 ?% ? EF Teichholz (2D) ?? 42.29 ?% ? Ao root diameter (2D3.22 ? cm (2.1 - 3.6) ? Ascending Ao ?3.83 ? cm (2 - 3.5) ? Volumes/Mass ?Value ?Units (Range) ? LA Area 4 CH ?20.1 ? cm2 (<21) ? LA ESV BP (A/L) inde35.18 ?ml/m2 ? RA AREA 4CH ? 20.6 ? cm2 ? LV ESV SP 4CH (MOD) 21.94 ?ml ? LV ESV SP 2CH (MOD) 16.94 ?ml ? LV EDV BP ? 58.2 ? ml ? LV ESV BP ? 19.26 ?ml ? LV EDV BP index ? 34.07 ?ml/m2 ? LV ESV BP index ? 11.27 ?ml/m2 ? BP EF (MOD) ? 66.91 ?% ? LV mass (2D) ?172.82 ? g ? LV mass (2D) index ??101.18 ? g/m2 ? Diastolic/Systolic Function ?Value ?Units (Range) ? MV E-wave Vmax ?0.85 ? m/sec ? MV deceleration gmit602.91 ? msec ? MV A-wave Vmax ?0.79 ? m/sec ? MV E:A ratio ?1.07 ? ratio ? LV septal e' Vmax ?? 0.08 ? m/sec ? LV lateral e' Vmax ??0.1 ?m/sec ? LV average e' Vmax ??0.09 ? m/sec ? LV E:e' septal ratio10.57 ?ratio ? LV E:e' lateral rati8.46 ? ratio ? LV average E:e' rati9.4 ?ratio ? Aortic Valve ?Value ?Units (Range) ? AV Vmax ? 1.41 ? m/sec ? AV VTI ?30.54 ?cm ? AV peak gradient ?7.99 ? mmHg ? AV mean gradient ?5 ?mmHg ? LVOT diameter ? 1.97 ? cm ? LVOT Vmax ? 1.12 ? m/sec ? LVOT VTI ?24.41 ?cm ? LVOT peak gradient ??4.99 ? mmHg ? LVOT mean gradient ??2.92 ? mmHg ? DOI (VTI) ? 0.8 ?ratio ? DOI (Vmax) ?0.79 ? ratio ? SV LVOT ? 74.67 ?ml ? SV LVOT Index ? 44 ? ml/m2 ? CO LVOT ? 5.03 ? l/min ? Cardiac index ? 2.95 ? l/min/m2 ? TRE (continuity Vmax2.42 ? cm2 ? TRE (continuity Vmax1.41 ? cm2/m2 ? TRE (continuity VTI)2.44 ? cm ? TRE (continuity VTI)1.43 ? cm2/m2 ? Tricuspid Valve ?Value ?Units (Range) ? TR Vmax ? 2.1 ?m/sec ? TR peak gradient ?17.69 ?mmHg ? RAP ? 3 ?mmHg ? RVSP ?21 ? mmHg ? This report has been electronically signed by: Jean Pierre Stallings ? 09/24/2021 11:33:21 Images reviewed and interpretation verified [facility] Cardiac Ultrasound [facility] Procedure Note Jean Pierre Stallings MD - 09/24/2021 Procedure: Transthoracic Echocardiogram Patient: EUNICE LAWSON(Age): 1960(61y) Med Rec#: [id number] Sex: F [place] Loc[place] [facility] Ht / Wt: 167.6(cm)/62.6( Pt. Loc: Echo Lab BSA: 1.71 Study Date: 09/24/2021 Pt. Type: Outpatient Tape: Referring: LORIN Reading: Jean Pierre Stallings ([id number]) K 12 Principal: Jossy Thompson Diagnosis: *Systemic sclerosis, unspecified (M34.9) BP: 129/76 SUMMARY: 1. The left ventricular chamber size, wall [...] the body of report for additional details. Findings : Left Ventricle: The left ventricular chamber size is normal. Left ventricular wall thickness is normal. There is no evidence of LVOT obstruction. No ventricular septal defect is visualized. There is normal global left ventricular systolic function. The quantitative left ventricular ejection fraction by biplane Benites's method is 67%. There are no left ventricular segmental wall motion abnormalities. Left ventricular diastolic function is normal. Doppler assessment is consistent with normal left sided filling pressure. Left Atrium: The left atrium is mildly dilated. There is no patent foramen ovale visualized. Right Ventricle: The right ventricle is normal in size. Right ventricular global systolic function is normal. The estimated pulmonary artery systolic pressure is 21 mmHg. The estimated right atrial pressure is 3 mmHg. Right Atrium: The right atrium is mildly dilated. Aortic Valve: The aortic valve is tricuspid. The aortic valve leaflets are mildly thickened. Systolic excursion of the aortic valve is normal. There is no evidence of aortic valve stenosis. Mild (1+/4+) aortic valve regurgitation is present. Mitral Valve: The mitral valve leaflets are mildly thickened. There is mild (1+/4+) mitral regurgitation present. Tricuspid Valve: The tricuspid valve appears normal in structure and function. There is mild (1+/4+) tricuspid regurgitation present. Pulmonic Valve: The pulmonic valve appears normal in structure and function. There is no evidence of pulmonic regurgitation. Pericardium: A trivial pericardial effusion is visualized. A pericardial fat pad is visualized. Aorta: The aortic root is normal in size. There is mild dilatation of the ascending aorta. 3.8cm Pulmonary Artery: The main pulmonary artery appears normal. Venous: The inferior vena cava appears normal in size. There is a greater than 50% respiratory change in the inferior vena cava dimension. Misc: Two-dimensional echo, spectral Doppler and color Doppler performed. Chambers 2D Value Units (Range) IVSd (2D) 1.11 cm LVPWd (2D) 1.13 cm IVS:LVPW ratio (2D) 0.99 ratio RWT (2D) 0.51 ratio RWT PW (2D) 0.51 ratio LVIDd (2D) 4.39 cm LVIDs (2D) 3.49 cm LVIDd (2D) index 2.57 cm/m2 LVIDs (2D) index 2.04 cm/m2 LV FS (2D) 20.62 % EF Teichholz (2D) 42.29 % Ao root diameter (2D3.22 cm (2.1 - 3.6) Ascending Ao 3.83 cm (2 - 3.5) Volumes/Mass Value Units (Range) LA Area 4 CH 20.1 cm2 (<21) LA ESV BP (A/L) inde35.18 ml/m2 RA AREA 4CH 20.6 cm2 LV ESV SP 4CH (MOD) 21.94 ml LV ESV SP 2CH (MOD) 16.94 ml LV EDV BP 58.2 ml LV ESV BP 19.26 ml LV EDV BP index 34.07 ml/m2 LV ESV BP index 11.27 ml/m2 BP EF (MOD) 66.91 % LV mass (2D) 172.82 g LV mass (2D) index 101.18 g/m2 Diastolic/Systolic Function Value Units (Range) MV E-wave Vmax 0.85 m/sec MV deceleration nsek543.91 msec MV A-wave Vmax 0.79 m/sec MV E:A ratio 1.07 ratio LV septal e' Vmax 0.08 m/sec LV lateral e' Vmax 0.1 m/sec LV average e' Vmax 0.09 m/sec LV E:e' septal ratio10.57 ratio LV E:e' lateral rati8.46 ratio LV average E:e' rati9.4 ratio Aortic Valve Value Units (Range) AV Vmax 1.41 m/sec AV VTI 30.54 cm AV peak gradient 7.99 mmHg AV mean gradient 5 mmHg LVOT diameter 1.97 cm LVOT Vmax 1.12 m/sec LVOT VTI 24.41 cm LVOT peak gradient 4.99 mmHg LVOT mean gradient 2.92 mmHg DOI (VTI) 0.8 ratio DOI (Vmax) 0.79 ratio SV LVOT 74.67 ml SV LVOT Index 44 ml/m2 CO LVOT 5.03 l/min Cardiac index 2.95 l/min/m2 TRE (continuity Vmax2.42 cm2 TRE (continuity Vmax1.41 cm2/m2 TRE (continuity VTI)2.44 cm TRE (continuity VTI)1.43 cm2/m2 Tricuspid Valve Value Units (Range) TR Vmax 2.1 m/sec TR peak gradient 17.69 mmHg RAP 3 mmHg RVSP 21 mmHg This report has been electronically signed by: Jean Pierre Stallings 09/24/2021 11:33:21 Images reviewed and interpretation verified [facility] Cardiac Ultrasound Laboratory Kiet Pardo MD ECHO ORDERABLES documented in this encounter Visit Diagnoses Diagnosis Scleroderma Systemic sclerosis Scleroderma Systemic sclerosis documented in this encounter Care Teams Business Department Chair Relationship Specialty Start Date End Date Danya Acuna APRN [address] [place] [address] PCP - General Family Medicine 02/19/21 08/12/22 documented as of this encounter
--- OUTSIDE RECORDS SUMMARY | 2024-09-14 13:05 | XMS_ITS | Encounter Summary ---
Author Organization [facility] [place] [address] Care Team Providers Care Risk Developer Name Role Phone Danya Acuna BRIGHT Primary Care Provider [phone] Reason for Visit * Reason Comments Chronic Kidney Disease Encounter Details Date Type Department Care Team (Latest Contact Info) Description 04/09/2021 9:20 AM EDT Office Visit [place]ph[place] [address] Sumit Sawyer MD [facility] [place] [address] A, Nurse Clinician None Stage 3a chronic kidney disease Social History [...] Sign Reading Time Taken Comments Blood Pressure 121/73 04/09/2021 9:30 AM EDT Pulse 69 04/09/2021 9:30 AM EDT Temperature - - Respiratory Rate - - Oxygen Saturation - - Inhaled Oxygen Concentration - - Weight 64.4 kg (142 lb) 04/09/2021 9:30 AM EDT Height - - Body Mass Index 22.24 03/24/2021 11:43 AM EDT documented in this encounter Patient Instructions * Patient Instructions* Karla Bailey RN - 04/09/2021 9:20 AM EDT Your kidney function is stable Call if you feel differently (consistent symptoms of nausea, vomiting, little appeal for food, itching, change in sleep patterns, worsening energy levels, shortness of breath). These are some of the signs of worsening kidney function. We will see you sooner if you are not feeling well. Please call. Karla CHAVEZ Chronic Kidney Disease Nurse Specialist at [facility] Nephrology. documented in this encounter Progress Notes * Sumit Sawyer MD - 04/09/2021 9:20 AM EDT [facility] [address] [place] [address] Reason for Clinic Visit: Systems Review and CKD management. Seen in clinic with: Karla GOLDBERG-HOUSTON CKD related to:??scleraderma crisis 2009, Was on HD through tunnelled catheter from April 27 to July 14, 2010??at [facility] [place] for the last 3 weeks of dialysis. History of Present Illness: Patient returns for follow-up of her scleroderma and renal insufficiency. She is a remarkable course over the years with stable to improving renal function despite having been on dialysis for over 6 months. She continues to have some minor troubles with her hands which waxand wane depending on the seasons. She has some bowel issues which she is managing conservatively. She has never had any significant respiratory or lung issues related to her scleroderma. Otherwise her blood pressure is under good control. We will continue her PERRY inhibitor indefinitely. History obtained by RN Specialist: Amber was last seen in clinic on 10/14/20, eGFR -53 . 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 She has had worsening GI symptoms likely refletive of her worsening dysmotility. She had a Right back desmoid resection in June 2020. Her GERD is well controlled with Nexium 40 mg BID. Has Joseph's esophagus and getting surveillance endoscopies She has received both covid vaccines ? Review of Systems:?? Sign/Symptom Comments Activity level/fatigue: Fair to good - about the same as last year - active with stairs, walking. Scleroderma has caused diffuse skin thickening with resulting flexion contractures. Change in sleep patterns: No issues Nocturia: Yes - 1x a night since amlodipine decreased Appetite changes: No - great, low salt diet, salads, fruit, veggies, mostly vegetarian diet. Food aversions: No Nausea: No Vomiting: No Bowels: No - constipation, try to increase activity, told to use immodium to increase bulk, workingwell. Edema: No Shortness of breath: No Orthopnea/PND: No PND; 1 pillow. Muscle Cramping: No Cold intolerance: Yes; plus the issues with the Raynaud's in her fingers. Itching: No Bruising/bleeding: No - bruising, nose bleeds, or black stools. Mental Status Changes: Reports getting overwhelmed more easily Recent Home Blood Pressure Control: Not regularly checking at home Recent Lipid Management: Not on lipid medications. Additional CCM Comments: How's your health been in the last 4 weeks : Poor, Fair, Good, Very Good, Excellent ? She is seeing master merchandiser at [facility] for the scleroderma management. [...] Access/Surgeon: Had tunnelled dialysis catheter removed at [facility] in June 2010. No plans for fistula at this time. Kidney function has been stable and slowly improving ? Advanced Directives: On file in eDH. Immunizations Influenza PF, Split 09/23/2016, 10/17/2012 PMH: Patient Active Problem List Diagnosis Code ??? [...] ??? Lesion of skin of scalp L98.9 Allergies Allergen Reactions ??? Other [Unclassified Drug] Lobster--weird sensation Outpatient Medications Marked as Taking for the 04/09/21 encounter (Office Visit) with Sumit Sawyer MD Medication Sig Dispense Refill ??? psyllium husk (METAMUCIL ORAL) Take by mouth daily. ??? sildenafiL (Revatio) 20 mg Tablet TAKE TWO TABLETS BY MOUTH EVERY MORNING, ONE TABLET EVERY AFTERNOON AND TWO TABLETS EVERY EVENING 150 tablet 5 ??? melatonin 3 mg Tablet Take 3 [...] Take 1,200 mg by mouth daily. ??? acetaminophen-codeine (TYLENOL #3) 300-30 mg Tablet [...] inches onto the skin every 6 hours. Physical Exam: BP 121/73 Pulse 69 Wt 64.4 kg (142 lb) LMP 11/27/2014 BMI 22.24 kg/m?? Check if examined Findings General appearance Scleroderma changes in face/distal extemities Head Eyes ENT Neck No jvd Respiratory clear COR/Vascular rrr Abdomen Skin Neuro intact Asterixis Extremities No edema Other Labs Results for AMBER WELLS ( ) as of 04/09/2021 11:54 Ref. Range 04/09/2021 09:09 WBC Latest Ref Range: 4.0 - 9.5 x10(3)/mcL 6.9 RBC Latest Ref Range: 4.00 - 5.21 x10(6)/mcL 3.99 (L) Hemoglobin Latest Ref Range: 11.7 - 15.5 gm/dL 11.6 (L) Hematocrit Latest Ref Range: 35.7 - 45.8 % 36.7 MCV Latest Ref Range: 82.6 - 94.4 fL 92.0 MCH Latest Ref Range: 27.1 - 32.0 pg 29.1 MCHC Latest Ref Range: 31.7 - 35.0 gm/dL 31.6 (L) RDWSD Latest Ref Range: 37.0 - 46.0 fL 50.7 (H) RDWCV Latest Ref Range: 11.5 - 14.1 % 14.9 (H) Platelets Latest Ref Range: 145 - 357 x10(3)/mcL 330 MPV Latest Ref Range: 7.6 - 12.9 fL 10.8 Sodium Latest Ref Range: 135 - 145 mmol/L 141 Potassium Latest Ref Range: 3.5 - 5.0 mmol/L 4.7 Chloride Latest Ref Range: 98 - 107 mmol/L 106 CO2 Latest Ref Range: 22 - 31 mmol/L 26 Anion Gap Latest Ref Range: 5 - 15 mmol/L 9 BUN Latest Ref Range: 8 - 18 mg/dL 19 (H) Creatinine Latest Ref Range: 0.70 - 1.20 mg/dL 1.06 Estimated GFR Latest Ref Range: >=60 mL/min/1.73 m?? 57 (L) Calcium Latest Ref Range: 8.5 - 10.5 mg/dL 9.4 Phosphorus Latest Ref Range: 2.5 - 4.5 mg/dL 2.6 Uric Acid Latest Ref Range: 2.5 - 6.5 mg/dL 5.5 Glucose Lvl Latest Ref Range: 65 - 199 mg/dL 91 Albumin Latest Ref Range: 3.2 - 5.2 gm/dL 4.3 PTH Latest Ref Range: 15 - 65 pg/mL 73 (H) Problem/Goal/Assessment/Plan: Problem: Chronic Kidney Disease Goal: Reduce rate of progression Education for CKD Stage specific issues Results: Estimated GFR (CKD-EPI): 57 ml/min/1.73m2 CKD Stage 3a Potassium Level - 4.7 CO2 level - 26 Uric Acid level - 5.5 Changes discussed with RN Specialist: Your kidney function is stable. Call if you feel differently (consistent symptoms of nausea, vomiting, little appeal for food, itching, change in sleep patterns,worsening energy levels, shortness of breath). These are some of the signs of worsening kidney function. We will see you sooner if you are not feeling well. Problem: Management of Anemia related to Chronic Kidney Disease (CKD) Goal: Hgb 9.5-10.9 g/dl Ferritin>100ng/ml TSAT>20% Today's Results Hgb - 11.6 Ferritin - not tested TSAT - not tested Receiving erythropoetic stimulating agent? No Last IV Iron replacement therapy (Venofer), Date None: Changes discussed with RN Specialist: None A/P: ok Problem: Hypertension Goal: Urine alb:cr ratio <30mg/g - 140/90, Urine alb:cr ratio > 30mg/g - 130/80 Sodium intake < 2 Gm per day. Results: BP today - 121/73 Changes discussed with RN Specialist: None A/P: In good range Problem: Proteinuria Goal: Pro:Cr ratio <0.2mg/mg Today's results: Pro:Cr ratio 0.3 Changes discussed with RN Specialist: Pt on fosinopril 20 mg daily A/P: Continue PERRY Problem: Bone Disease Goal: Stage 3 PTH: 35-70 pg/ml Phos 2.7-4.6 Ca 8.5-10.5mg/dl Stage 4 PTH: 70-110 pg/ml Phos 2.7-4.6 Ca 8.5-10.5mg/dl Stage 5 PTH: 150-300 pg/ml Phos 3.5-5.5 Ca 8.5-10.5mg/dl Results: PTH today -73 ( pt not taking calcitriol) Phos today -2.6 (pt not taking binders) Calcium today - 9.4 Changes discussed with RN Specialist: Pt on OTC Vit D 1,000 units daily A/P: ok Problem: Nutrition Goal: Albumin > 4.0gm/dl BMI 20-25 kg/m2 Results: Albumin today - 4.3 Changes discussed with RN Specialist: Continue healthy eating A/P: ok Summary: Stable renal function for years post scleroderma renal crisis requiring prolonged dialysis. Continue PERRY Return to CKD clinic: 1 year * Sumit Sawyer MD - 04/09/2021 9:20 AM EDTPatient returns for follow-up of her scleroderma and renal insufficiency. She is a remarkable course over the years with stable to improving renal function despite having been on dialysis for over 6 months. She continues to have some minor troubles with her hands which waxand wane depending on the seasons. She has some bowel issues which she is managing conservatively. She has never had any significant respiratory or lung iss ues related to her scleroderma. Otherwise her blood pressure is under good control. We will continue her PERRY inhibitor indefinitely. documented in this encounter Plan of Treatment Upcoming Encounters Date Type Department Care Team (Late st Contact Info) Description 10/07/2024 11:30 AM EST Office Visit Dermatology at [facility] [address] [place] [address] Jo Ordaz MD [facility] [place] [address] 12/13/2024 11:30 AM EST Appointment [place] [address] 12/13/2024 1:00 PM EST Office [place] [address] Kiet Pardo MD [facility] [address] documented as of this encounter Visit Diagnoses Diagnosis Stage 3a chronic kidney disease documented in this encounter Care Teams Risk Developer Relationship Specialty Start Date End Date Danya Acuna, BRIGHT [address] [place] [address] PCP - General Family Medicine 02/19/21 08/12/22 documented as of this encounter
--- OUTSIDE RECORDS SUMMARY | 2024-09-14 13:05 | XMS_ITS | Encounter Summary ---
[place] [address] Care Team Providers Care Wanigan Clerk Name Role Phone Indraeun Danya Dinora NOVOA Primary Care Provider [phone] Encounter Details Date Type Department Care Team (Late st Contact Info) Description 08/19/2021 Telephone [place] [address] Sophie Arana Social History Tobacco Use Types Packs/Day Years [...] encounter Miscellaneous Notes * Telephone Encounter - Sophie Arana - 08/19/2021 9:21 AM EDT Placed outgoing phone call to patient in order to reschedule an appointment that we had to cancel due to a change in their provider's scheduled. Phone Call Outcome: Left voicemail asking for return call. This was the 1st attempt documented in this encounter Plan of Treatment Upcoming Encounters Date Type Department Care Team (Late st Contact Info) Description 10/07/2024 11:30 AM EST Office Visit Dermatology at [facility] [address] [place] [address] Jo Ordaz MD [facility] [place] [address] 12/13/2024 11:30 AM EST Appointment [place] [phone] 12/13/2024 1:00 PM EST Office [place] [address] Kiet Pardo MD [facility] [place] [address] documented as of this encounter Visit Diagnoses Not on filedocumented in this encounter Care Teams Wanigan Clerk Relationship Specialty Start Date End Date Danya Acuna APRN [address] [place] [address] PCP - General Family Medicine 02/19/21 08/12/22 documented as of this encounter
--- OUTSIDE RECORDS SUMMARY | 2024-09-14 13:05 | XMS_ITS | Encounter Summary ---
Author Organization [facility] [place] [address] Care Team Providers Care United [place] Marshal Name Role Phone Gorge Man MD Primary Care Provider [phone] Reason for Visit * Reason Comments Medication Refill Encounter Details Date Type Department Care Team (Late st Contact Info) Description 12/25/2020 [place] [address] Annalee Ye, [facility] [place] [address] Scleroderma; CKD (chronic kidney disease) stage 3, [...] 11:30 AM EST Office Visit Dermatology at [facility] [address] [place] [address] Jo Ordaz MD [facility] [address] 12/13/2024 11:30 AM EST Appointment [place] [address] 12/13/2024 1:00 PM EST Office [place] [address] Kiet Pardo MD [facility] [place] [address] documented as of this encounter Visit Diagnoses Diagnosis Scleroderma Systemic sclerosis CKD (chronic kidney disease) stage 3, GFR 30-59 ml/min Chronic kidney disease, Stage III (moderate) documented in this encounter Care Teams United [place] Marshal Relationship Specialty Start Date End Date Gorge Man MD PCP - [facility] Medicine 11/28/18 02/18/21 documented as of this encounter
--- OUTSIDE RECORDS SUMMARY | 2024-09-14 13:05 | XMS_ITS | Encounter Summary ---
Author [facility] [place] [address] Care Team Providers Care Food Stand Manager Name Role Phone Danya Acuna Dinora NOVOA Primary Care Provider [phone] Reason for Referral * Diagnostic Test (Routine) - Closed Specialty Diagnoses / Procedures Referred By Contac t Referred To Contact Cardiology Diagnoses Scleroderma Procedures Echocardiogram Transthoracic([facility] or [facility]) Kiet Pardo MD [facility] [place] [address] [facility] [place] [address] Referral ID Status Reason Start Date Expiration Date V isits Requested Visits Authorized [id number] Closed Specialty Service Requested 02/19/2021 02/19/2022 1 1 Reason for Visit * Diagnostic Test (Routine) - Closed Specialty Diagnoses / Procedures Referred By Conthaley t Referred To Contact Cardiology Diagnoses Scleroderma Procedures Echocardiogram Transthoracic([facility] or [facility]) Kiet Pardo MD [facility] [place] [address] [facility] [place] [address] Referral ID Status Reason Start Date Expiration Date V isits Requested Visits Authorized [id number] Closed Specialty Service Requested 02/19/2021 02/19/2022 1 1 Encounter Details Date Type Department Care Team (Latest Contact Info) Description 09/24/2021 10:25 AM EDT - 09/24/2021 11:59 PM EDT Hospital Encounter Non-Invasive Cardiology Lab [facility] [place] [address] Kiet Pardo MD [facility] [place] [address] Scleroderma Discharge Disposition: Home Social History Tobacco [...] Dispensed Refills Start Date End Date zoledronic xahr-vgyuqexl-hijxj (zoledronic Acid) 5 mg/100 mL infusion .every year 03/07/2021 polyethylene glycoL (Miralax) 17 gram/dose Powder Take [...] as needed for Pain. 200 mL 10/12/2021 10/12/2021 silver sulfADIAZINE (Silvadene) 1 % Cream Apply [...] AREA NEEDED 30 g 2 01/18/2021 06/13/2022 amLODIPine (Norvasc) 10 mg Tablet TAKE 1 TABLET BY MOUTH ONCE DAILY 90 tablet 3 12/25/2020 09/29/2021 acetaminophen-codeine (TYLENOL #3) 300-30 mg Tablet Take 2 tablets by mouth every 6 hours as needed for Pain. Reported on 03/29/2017 60 tablet 12/11/2018 04/20/2022 documented as of this encounter Plan of Treatment Upcoming Encounters Date Type Department Care Team (Late st Contact Info) Description 10/07/2024 11:30 AM EST Office Visit Dermatology at [facility] [address] [place] [address] Jo Ordaz MD [facility] [place] [address] 12/13/2024 11:30 AM EST Appointment [place] [address] 12/13/2024 1:00 PM EST Office [place] [phone] Kiet Pardo MD [facility] [place] [address] documented as of this encounter Procedures Procedure Name Priority Date/Time Associated Diagnosis Comments ECHO COMPLETE Routine 09/24/2021 11:17 AM EDT Scleroderma documented in this encounter Results * ECHO COMPLETE (09/24/2021 11:17 AM EDT) EF 67 HEARTLAB SYSTEM Anatomical Region Laterality Modality Other 09/24/2021 Narrative 09/24/2021 11:34 AM EDT Procedure: ?Transthoracic Echocardiogram Patient: ?EUNICE JAMES ? (Age): 1960(61y) Med Rec#: ? [id number] ?Sex: ?F ? Site Loc: ? DH ?Ht / Wt: ??167.6(cm)/62.6( Pt. Loc: ?Echo Lab ?BSA: ?1.71 Study Date: ?? 09/24/2021 ?Pt. Type: Outpatient Tape: ? Referring: LORIN Reading: Jean Pierre Stallings ??([id number]) Business Info Consultant: Jossy Thompson Diagnosis: *Systemic sclerosis, unspecified (M34.9) [...] Vmax ?0.85 ? m/sec ? MV deceleration [id number] ? msec ? MV A-wave Vmax ?0.79 [...] 09/24/2021 11:33:21 Images reviewed and interpretation verified [facility] Cardiac Ultrasound Laboratory Procedure Note Jean Pierre Stallings MD - 09/24/2021 Procedure: Transthoracic Echocardiogram Patient: EUNICE LAWSON(Age): 1960(61y) Med Rec#: [id number] Sex: F Site Loc: [facility] Ht / Wt: 167.6(cm)/62.6( Pt. Loc: Echo Lab BSA: 1.71 Study Date: 09/24/2021 Pt. Type: Outpatient Tape: Referring: RANDLETTSCOTT Reading: Jean Pierre Stallings ([id number]) Business Info Consultant: Jossy Thompson Diagnosis: *Systemic sclerosis, unspecified (M34.9) [...] MV E-wave Vmax 0.85 m/sec MV deceleration [id number] msec MV A-wave Vmax 0.79 m/sec MV [...] 09/24/2021 11:33:21 Images reviewed and interpretation verified [facility] Cardiac Ultrasound Laboratory Kiet Pardo MD ECHO ORDERABLES documented in this encounter Visit Diagnoses Diagnosis Scleroderma Systemic sclerosis documented in this encounter Care Teams Food Stand Manager Relationship Specialty Start Date End Date Danya Acuna APRN [address] [place] [address] PCP - General Family Medicine 02/19/21 08/12/22 documented as of this encounter
--- OUTSIDE RECORDS SUMMARY | 2024-09-14 13:05 | XMS_ITS | Encounter Summary ---
Author Organization [facility] [place] [address] Care Team Providers Care Hole Digger Truck Driver Name Role Phone Gorge Man MD Primary Care Provider [phone] Reason for Visit * Reason Comments Medication Refill Encounter Details Date Type Department Care Team (Late st Contact Info) Description 01/14/2021 [place] [address] Annalee Ye APRN [facility] [place] [address] Social History Tobacco Use Types Packs/Day Years [...] 11:30 AM EST Office Visit Dermatology at [facility] [address] [place] [address] Jo Ordaz MD [facility] [place] [address] 12/13/2024 11:30 AM EST Appointment [place] [phone] 12/13/2024 1:00 PM EST Office [place] [phone] Kiet Pardo MD [facility] [place] [address] documented as of this encounter Visit Diagnoses Not on filedocumented in this encounter Care Teams Hole Digger Truck Driver Relationship Specialty Start Date End Date Gorge Man MD PCP - [facility] Medicine 11/28/18 02/18/21 documented as of this encounter
--- OUTSIDE RECORDS SUMMARY | 2024-09-14 13:05 | XMS_ITS | Encounter Summary ---
Author Organization [facility] [place] [address] Care Team Providers Care Portrait Artist Name Role Phone Danya Acuna APRN Primary Care Provider [phone] Reason for Visit * Reason Comments Medication Refill Encounter Details Date Type Department Care Team (Late st Contact Info) Description 03/16/2021 [place] [address] Alla Palomares, [facility] [place] [address] Social History Tobacco Use Types Packs/Day Years [...] 11:30 AM EST Office Visit Dermatology at [facility] [address] [place] [address] Jo Ordaz MD [facility] [place] [address] 12/13/2024 11:30 AM EST Appointment [place] [phone] 12/13/2024 1:00 PM EST Office [place] [phone] Kiet Pardo MD [facility] [place] [address] documented as of this encounter Visit Diagnoses Not on filedocumented in this encounter Care Teams Portrait Artist Relationship Specialty Start Date End Date Danya Acuna APRN [address] [place] [address] PCP - General Family Medicine 02/19/21 08/12/22 documented as of this encounter
--- OUTSIDE RECORDS SUMMARY | 2024-09-14 13:05 | XMS_ITS | Encounter Summary ---
Author Organization Formerly [facility] [address] Care Team Providers Care Medical Clerical Assistant Name Role Phone Danya Acuna BRIGHT Primary Care Provider [phone] Encounter Details Date Type Department Care Team (Latest Contact Info) Description 04/09/2021 8:40 AM EDT Laboratory Appointment Lab [address] [place] [phone] Stage 3a chronic kidney disease Social History [...] 11:30 AM EST Office Visit Dermatology at [facility] [address] [place] [address] Jo Ordaz MD [facility] [address] [place] [address] 12/13/2024 11:30 AM EST Appointment [place] [address] 12/13/2024 1:00 PM EST Office [place] [address] Kiet Pardo MD [facility] [address] [id number] documented as of this encounter Procedures Procedure Name Priority Date/Time Associated Diagnosis Comments HC PROTEIN, QUANTITATIVE, URINE Routine 04/09/2021 9:14 AM EDT Stage 3a chronic kidney disease HC VENIPUNCTURE Routine 04/09/2021 9:09 AM EDT Stage 3a chronic kidney disease HEMOGRAM Routine 04/09/2021 9:09 AM EDT Stage 3a chronic kidney disease DIFFERENTIAL, AUTOMATED Routine 04/09/2021 9:09 AM EDT Stage 3a chronic kidney disease HC CBC,PLT & AUTO DIFF Routine 04/09/2021 9:09 AM EDT Stage 3a chronic kidney disease HC URIC ACID, SERUM Routine 04/09/2021 9 :09 AM EDT Stage 3a chronic kidney disease HC PHOSPHORUS, SERUM Routine 04/09/2021 9:09 AM EDT Stage 3a chronic kidney disease HC ALBUMIN, SERUM Routine 04/09/2021 9:0 9 AM EDT Stage 3a chronic kidney disease BASIC METABOLIC PANEL Routine 04/09/2021 9:09 AM EDT Stage 3a chronic kidney disease documented in this encounter Results * Protein/Creatinine Ratio, urine (04/09/2021 9:14 AM EDT) Creatinine, Urine 26 mg/dL [facility] Protein, Urine 8 0 - 12 mg/dL [facility] Protein / Creatinine Ratio, Urine 0.3 ratio [facility] Urine 04/09/2021 9:14 AM EDT 04/09/2021 9:39 AM EDT Narrative Resulting Agency Comment Spec In Lab Sumit Sawyer MD URINE ORDERABLES [facility] [place] [address] * Differential, Automated (04/09/2021 9:09 AM EDT) Neutrophil % 65.4 % [facility] Neutrophil Absolute 4.51 1.70 - 6.10 x10(3)/[facility] Lymph % 23.7 % [facility] Lymphocytes Abs 1.6 0.9 - 3.2 x10(3)/[facility] Monocyte % 6.9 % [facility] Monocyte Abs 0.5 0.3 - 0.9 x10(3)/[facility] Eos % 3.0 % [facility] Eosinophils Abs 0.2 0.0 - 0.4 x10(3)/[facility] Basophil % 0.7 % [facility] Baso Absolute 0.0 0.0 - 0.1 x10(3)/[facility] Immature Gran % 0.30 % [facility] Comment: Immature granulocytes(IG's)percentage and absolute count will include metamyelocytes, myelocytes, and promyelocytes. Blood smears from CBCs yielding IG's will be scanned manually for concordance. If this scan disagrees with the automated IG or if promyelocytes are noted, a manual differential will be performed. Immature Gran Absolute 0.02 0.00 - 0.04 x10(3)/[facility] Blood 04/09/2021 9:09 AM EDT 04/09/2021 9:56 AM EDT Narrative Resulting Agency Comment Spec In Lab Sumit Sawyer MD HEMATOLOGY ORDERABL ES [facility] [place] [address] * (ABNORMAL) Hemogram (04/09/2021 9:09 AM EDT) White Blood Cell 6.9 4.0 - 9.5 x10(3)/mc L [facility] Red Blood Cell 3.99(L) 4.00 - 5.21 x10(6)/mc L [facility] Hemoglobin 11.6(L) 11.7 - 15.5 gm/dL [facility] Hematocrit 36.7 35.7 - 45.8 % [facility] Mean Cell Volume 92.0 82.6 - 94.4 fL [facility] Mean Cell Hemoglobin 29.1 27.1 - 32.0 pg [facility] Mean Cell Hemoglobin Concentration 31.6(L) 31.7 - 35.0 gm/dL [facility] Platelet 330 145 - 357 x10(3)/mc L [facility] RDW Standard Deviation 50.7(H) 37.0 - 46.0 fL [facility] RDW coefficient of variation 14.9(H) 11.5 - 14.1 % [facility] Mean Platelet Volume 10.8 7.6 - 12.9 fL [facility] NRBC% auto 0.0 % [facility] NRBC Absolute 0.000 0.000 - 0.000 x10(3)/mc L [facility] Blood 04/09/2021 9:09 AM EDT 04/09/2021 9:56 AM EDT Narrative Resulting Agency Comment Spec In Lab Sumit Sawyer MD HEMATOLOGY ORDERABL ES [facility] [place] [address] * (ABNORMAL) Basic Metabolic Panel (non-fasting) (04/09/2021 9:09 AM EDT) Glucose 91 65 - 199 mg/dL [facility] Comment:Diabetes: >=200 mg/d L plus symptoms Blood Urea Nitrogen 19(H) 8 - 18 mg/dL [facility] Creatinine 1.06 0.70 - 1.20 mg/dL [facility] Sodium 141 135 - 145 mmol/L [facility] Potassium 4.7 3.5 - 5.0 mmol/L [facility] Comment: Please note: ??Patients with WBC >100,000 may have falsely elevated Potassium levels. ??For accurate Potassium quantification in these patients send serum separator tube (gold top) for subsequent determinations. ??Contact the Clinical Chemistry Laboratory if there are any questions. Chloride 106 98 - 107 mmol/L [facility] Carbon Dioxide 26 22 - 31 mmol/L [facility] Anion Gap 9 5 - 15 mmol/L [facility] Calcium 9.4 8.5 - 10.5 mg/dL [facility] Est Glomerular Filtration Rate 57(L) >=60 mL/min/1. 73 m?? [facility] Comment: This patient? s estimated glomerular filtration rate (eGFR) is between 57 mL/min/1.73 m2 (patients with less muscle mass) and 67 mL/min/1.73 m2 (patients with more muscle mass) [...] and symptoms in addition to eGFR. Blood 04/09/2021 9:09 AM EDT 04/09/2021 9:56 AM EDT Narrative Resulting Agency Comment Spec In Lab Sumit Sawyer MD CHEMISTRY ORDERABLE S [facility] [place] [address] * Phosphorus (04/09/2021 9:09 AM EDT) Phosphorus 2.6 2.5 - 4.5 mg/dL [facility] Blood 04/09/2021 9:09 AM EDT 04/09/2021 9:56 AM EDT Narrative Resulting Agency Comment Spec In Lab Sumit Sawyer MD CHEMISTRY ORDERABLE S [facility] [place] [address] * Albumin Level (04/09/2021 9:09 AM EDT) Albumin 4.3 3.2 - 5.2 gm/dL [facility] Blood 04/09/2021 9:09 AM EDT 04/09/2021 9:56 AM EDT Narrative Resulting Agency Comment Spec In Lab Sumit Sawyer MD CHEMISTRY ORDERABLE S Performing Organization Address City/[facility]/ZIP Co de Phone Number [facility] [address] * Uric acid (04/09/2021 9:09 AM EDT) Uric Acid 5.5 2.5 - 6.5 mg/dL [facility] Blood 04/09/2021 9:09 AM EDT 04/09/2021 9:56 AM EDT Narrative Resulting Agency Comment Spec In Lab Sumit Sawyer MD CHEMISTRY ORDERABLE S [facility] [address] * (ABNORMAL) PTH (04/09/2021 9:09 AM EDT) Parathyroid Hormone 73(H) 15 - 65 pg/mL [facility] Blood 04/09/2021 9:09 AM EDT 04/09/2021 9:56 AM EDT Narrative Resulting Agency Comment Spec In Lab Sumit Sawyer MD CHEMISTRY ORDERABLE S Performing Organization Address City/State/[facility] Co de Phone Number [facility] [place] [address] documented in this encounter Visit Diagnoses Diagnosis Stage 3a chronic kidney disease documented in this encounter Care Teams Medical Clerical Assistant Relationship Specialty Start Date End Date Danya Acuna, BRIGHT [address] [place] [address] PCP - General Family Medicine 02/19/21 08/12/22 documented as of this encounter
--- OUTSIDE RECORDS SUMMARY | 2024-09-14 13:05 | XMS_ITS | Encounter Summary ---
Author Organization Formerly [facility] [place] [address] Care Team Providers Care Design Editor Name Role Phone Danya Acuna APRN Primary Care Provider [phone] Reason for Visit * Reason Comments Medication Refill Encounter Details Date Type Department Care Team (Late st Contact Info) Description 09/27/2021 Refill [place]ph[place] [address] Sumit Sawyer MD [facility] [place] [address] Stage 3a chronic kidney disease Social History [...] Dermatology at [facility] [address] [place] [address] Jo Ordaz MD [facility] [place] [address] 12/13/2024 11:30 AM EST Appointment [place] [phone] 12/13/2024 1:00 PM EST Office [place] [phone] Kiet Pardo MD [facility] [place] [address] documented as of this encounter Visit Diagnoses Diagnosis Stage 3a chronic kidney disease documented in this encounter Care Teams Design Editor Relationship Specialty Start Date End Date Danya Acuna APRN [address] [place] [address] PCP - General Family Medicine 02/19/21 08/12/22 documented as of this encounter
--- OUTSIDE RECORDS SUMMARY | 2024-09-14 13:05 | XMS_ITS | Encounter Summary ---
Author Organization [facility] Address [facility] [place] [address] Care Team Providers Care China And Silverware Salesperson Name Role Phone Danya Acuna BRIGHT Primary Care Provider [phone] Encounter Details Date Type Department Care Team (Latest Contact Info) Description 10/12/2021 9:08 AM EST - 10/12/2021 12:27 PM EST Hospital En[place] [address] Andrew Berger MD [facility] [place] [address] Joseph's esophagus with high grade dysplasia (Primary [...] Sign Reading Time Taken Comments Blood Pressure 138/79 10/12/2021 12:00 PM EST Pulse 87 10/12/2021 9:23 AM EST Temperature 36.7 ??C (98.1 ??F) 10/12/2021 9:23 AM ES T Respiratory Rate 16 10/12/2021 12:00 PM EST Oxygen Saturation 99% 10/12/2021 12:10 PM EST Inhaled Oxygen Concentration - - Weight 62.6 kg (138 lb) 10/12/2021 9:23 AM EST Height 168.9 cm (5' 6.5) 10/12/2021 9:23 AM EST Body Mass Index 21.94 10/12/2021 9:23 AM EST documented in this encounter Discharge Instructions * Discharge Instructions* Davin Patterson, RN - 10/12/2021 10:46 AM EST Upper GI Endoscopy: What to Expect [...] home? Activity Rest when you feel tired. ?? You can do your normal activities when it feels okay to do so. Diet ?? Follow your doctor's directions for eating. ?? Unless your doctor has told you not to, drink plenty of fluids. This helps to replace the fluidsthat were lost during the prep. ?? Do not drink alcohol. Medicines ?? Your doctor will tell you if and when you can restart your medicines. He or she will also give you instructions about taking any new medicines. ?? If you take blood thinners, such as warfarin (Coumadin), clopidogrel (Plavix), or aspirin, be sure to talk to your doctor. He or she will tell you if and when to start taking those medicines again. Make sure that you understand exactly what your doctor wants you to do. ?? If polyps were removed or a biopsy was done during the test, your doctor may tell you not to take aspirin or other anti-inflammatory medicines for a few days. These include ibuprofen (Advil, Motrin) and naproxen (Aleve). ?? If you have a sore throat the day after the procedure, use an fxfy-dqy-rnitwhh spray to numb your throat. Sucking on throat lozenges and gargling with warm salt water may also help relieve your symptoms. Other instructions ?? For your safety, do not drive or operate machinery until the medicine wears off and you can think clearly. Your doctor may tell you not to drive or operate machinery until the day after your test. ?? Do not sign legal documents or make major decisions until the medicine wears off and you can think clearly. The anesthesia can make it hard for you to fully understand what you are agreeing to. Additional Information for Sedation Patients For patients who received sedation: ?? You may have received medications before and/or during your procedure which effects your judgement and reaction time. ?? Do not drive, operate machinery, drink alcoholic beverages or make important decisions for 24 hours. ?? Be careful on stairs as you may be unsteady on your feet. ?? You may eat a regular diet as tolerated. ?? Do not smoke if you are alone. ?? IV site: Slight redness or tenderness is normal, you can use a warm compress if you would like. If tenderness and/or redness increase or if foul drainage occurs, please contact your Doctor. Please call [phone] before 8pm Mon-Fri with problems, questions or concerns. If you call after 8pm or on weekends, call the Hospital at [phone] and ask to speak to the Results Technician hat cone inspector and the vacuum pan operator will contact that person for you. When should you call for help? Call 131 anytime you think you may need emergency care. For example, call if: ?? You passed out (lost consciousness). ?? You pass maroon or bloody stools. ?? You have trouble breathing. Call your doctor now or seek immediate medical care if: ?? You have pain that does not get better after you take pain medicine. ?? You are sick to your stomach or cannot drink fluids. ?? You have new or worse belly pain. ?? You have blood in your stools. ?? You have a fever. ?? You cannot pass stools or gas. Watch closely for changes in your health, and be sure to contact your doctor if you have any problems. Where can you learn more? [email or web address] View your After Visit Summary and more online at [email or web address] If you would like to provide [...] cost to you. Content Version: 12.2 ?? 9469-4091 [employer]. Care instructions adapted under license by [facility]. If you have questions about a medical condition or this instruction, always ask your healthcare professional. [employer] disclaims any warranty or liability for your use of this information. * Patient Instructions* Andrew Berger MD - 10/12/2021 10:42 AM EST Please see Recommendations in the Provation procedure report which is documented in the procedural note in E-DH. documented in this encounter Medications at Time of Discharge Medication Sig Dispensed Refills Start Date End Date zoledronic jesi-jjwqfwkb-biwks (zoledronic Acid) 5 mg/100 mL infusion .every [...] H&P Notes * Andrew Berger MD - 10/12/2021 12:27 PM EST Gastroenterology and Hepatology Pre-Procedure History and Physical Exam Procedure: EGD: Indication: Joseph's with HGD. Patient Active Problem List [...] Op Note - Andrew Berger MD - 10/12/2021 10:18 AM EST [facility] Operative Note Patient Name: Amber Wells : [id number] MR#: [id number] Case Date: 10/12/2021 Surgeon: Surgeon(s) and Role: * Andrew Berger MD - Primary Preoperative diagnosis: Joseph's with HGD-EGD for Joseph's ablation [address] Berger and Propofol within 1 month Postoperative diagnosis: * No post-op diagnosis entered * Procedure(s) (LRB): EGD, TRANSORAL; WITH ABLATION OF TUMOR(S), POLYP(S), OR OTHER LESION(S) (WRVU 4.26) (N/A) Anesthesia: MAC Full procedure note is documented under the Procedure section of eDH. documented in this encounter Plan of Treatment Upcoming Encounters Date Type Department Care Team (Late st Contact Info) Description 10/07/2024 11:30 AM EST Office Visit Dermatology at [place] [address] [place] [phone] Jo Ordaz MD [facility] [place] [address] 12/13/2024 11:30 AM EST [place]ointment [place] [address] 12/13/2024 1:00 PM EST [place] [phone] Kiet Pardo MD [facility] [place] [address] Scheduled Orders Name Type Priority Associated Diagnoses Orde r Schedule ENDOSCOPY CASE REQUEST: EGD, UPPER GI ENDOSCOPY Procedures Routine Joseph's esophagus with high grade dysplasia Ordered: 10/12/2021 documented as of this encounter Procedures Procedure Name Priority Date/Time Associated Diagnosis Comments Edg Flexible Transoral Ablate Tumor Polyp/Lesion W/Dilation & Wire (91075) 10/12/2021 9:56 AM EST Joseph's esophagus with high grade dysplasia UPPER GI ENDOSCOPY Routine 10/12/2021 9: 33 AM EST documented in this encounter Results * UPPER GI ENDOSCOPY (10/12/2021 9:33 AM EST) Pathologist [facility] UPPER GI ENDOSCOPY [facility] Endoscopy ___ Procedure Date: 10/12/2021 9:33 AM ? Patient Name: Amber Wells ? Date of : 1960 ? Age: 61 ? Order #: [id number] ? Instrument Name: [id number] ? ___ Procedure: ? Upper GI endoscopy Indications: ? For therapy of Joseph's esophagus, ? Joseph's high grade dysplasia Providers: ? Andrew Bergre MD, Braden Dunlap, ? Tamika Lagunas, Standard Machine Stitcher Referring MD: ?Danya Acuna Medicines: ? Propofol [...] the procedure well. ? Findings: ? The esophagus and gastroesophageal junction were ? examined with white light and narrow band imaging ? (NBI) from a forward view and retroflexed position. ? There were esophageal mucosal changes consistent with ? short-segment Joseph's esophagus. These changes ? involved the mucosa at the upper extent of the ? gastric folds (38 cm from the incisors) extending to ? the Z-line (36 cm from the incisors). No visible ? abnormalities were present. The maximum longitudinal ? extent of these esophageal mucosal changes was 2 cm ? in length (C0M2). Focal radiofrequency ablation of ? Joseph's esophagus was performed. With the endoscope ? in place, the position and extent of the Joseph's ? mucosa and the anatomic landmarks including proximal ? and distal extent of Joseph's mucosa and top of ? gastric folds were noted. Endoscopic visualization ? identified an [...] areas of Joseph's mucosa. The areas included tongues ? and circumferential areas of Joseph's mucosa. The ? radiofrequency ablation catheter was placed in ? contact with the surface of the Joseph's mucosa ? under direct visualization and energy was applied ? twice at 12 J/cm2. Ablation was repeated in a ? likewise fashion to treat the entire area of ? suspected Joseph's mucosa (13 double hits). The ? ablation zone was [...] with the first ? series of ablation (16 additional double hits). The ? areas of the esophagus where Joseph's mucosa had ? been ablated were examined. Areas of Joseph's ? esophagus were completely ablated. ? The stomach was normal. ? The examined duodenum was normal. ? Moderate Sedation: ? Not applicable - See Anesthesia documentation Impression: ?- Esophageal mucosal changes ? consistent with short-segment ? Joseph's esophagus with HGD. Treated ? with radiofrequency ablation. ? - Normal stomach. ? - Normal [...] the entire procedure. ? Andrew Berger MD 10/12/2021 10:42:05 AM This report has been signed electronically. Number of Addenda: 0 Note Initiated On: 10/12/2021 9:33 AM PROVATION 10/12/2021 9:33 AM EST Danya Acuna APRN GENERAL SURGICAL ORD [facility] PROVATION documented in this encounter Visit Diagnoses Diagnosis Joseph's esophagus with high grade dysplasia- Primary Joseph's esophagus documented in this encounter Active and Recently Administered Medications Care Teams [employer] Silver[employer] Salesperson Relationship Specialty Start Date End Date Danya Acuna APRN [address] [place] [address] [address] [place] [address] PCP - General Family Medicine 02/19/21 08/12/22 documented as of this encounter
--- OUTSIDE RECORDS SUMMARY | 2024-09-14 13:05 | XMS_ITS | Encounter Summary ---
[place] [address] Care Team Providers Care Clay Worker Name Role Phone Danya Acuna BRIGHT Primary Care Provider [phone] Encounter Details Date Type Department Care Team (Late st Contact Info) Description 07/16/2021 Tele[place] [address] Milagros Greco Social History Tobacco Use Types Packs/Day Years [...] encounter Miscellaneous Notes * Telephone Encounter - Milagros Greco - 07/16/2021 3:52 PM EDT She is overdue for EGD for Joseph's. Andrew documented in this encounter Plan of Treatment Upcoming Encounters Date Type Department Care Team (Late st Contact Info) Description 10/07/2024 11:30 AM EST Office Visit Dermatology at [facility] [address] [place] [address] Jo Ordaz MD [facility] [place] [address] 12/13/2024 11:30 AM EST Appointment [place] [phone] 12/13/2024 1:00 PM EST Office [place] [phone] Kiet Pardo MD [facility] [place] [address] documented as of this encounter Visit Diagnoses Not on filedocumented in this encounter Care Teams Clay Worker Relationship Specialty Start Date End Date Danya Acuna, LANGUAGE AND LITERATURE DIVISION CHAIR [address] [place] [address] [address] [place] [address] PCP - General Family Medicine 02/19/21 08/12/22 documented as of this encounter
--- OUTSIDE RECORDS SUMMARY | 2024-09-14 13:05 | XMS_ITS | Encounter Summary ---
Author Organization [facility] Address [facility] [place] [address] Care Team Providers Care Pulpit Operator Name Role Phone Danya Acuna BRIGHT Primary Care Provider [phone] Encounter Details Date Type Department Care Team (Late st Contact Info) Description 10/12/2021 10:00 AM EST - 10/12/2021 11:15 AM EST Surgery [place] [address] [facility] [place] [place] [address] EGD, TRANSORAL; WITH ABLATION OF TUMOR(S), POLYP(S), [...] Sign Reading Time Taken Comments Blood Pressure 132/80 10/12/2021 11:15 AM EST Pulse 87 10/12/2021 9:23 AM EST Temperature 36.7 ??C (98.1 ??F) 10/12/2021 9:23 AM ES T Respiratory Rate 18 10/12/2021 11:00 AM EST Oxygen Saturation 95% 10/12/2021 11:15 AM EST Inhaled Oxygen Concentration - - [...] the day after the procedure, use an zpwe-eep-dbtpebn spray to numb your throat. Sucking on [...] occurs, please contact your Doctor. Please call [phone] before 8pm Mon-Fri with problems, questions or concerns. If you call after 8pm or on weekends, call the Hospital at [phone] and ask to speak to the Foot Doctor astronomy teacher and the ballast cleaning operator will contact that person for you. When should you call for help? Call [phone] anytime you think you may need emergency [...] After Visit Summary and more online at [email or web address] If you would like to provide feedback about your hospital experience, please call the Office of Patient and Family Relations at . If you have received this After Visit Summary in error, please immediately return it in person to the department, or notify the - Privacy Office by calling toll free at between the hours of 8AM and 5PM to arrange for our retrieval of the documents at no cost to you. Content Version: 12.2 ?? [id number] [employer]. Care instructions adapted under license by [facility]. If you have questions about a medical condition or this instruction, always ask your healthcare professional. [employer] disclaims any warranty or liability for your use of this information. * Patient Instructions* Andrew Berger MD - 10/12/2021 10:42 AM EST Please see Recommendations in the Provation procedure report which is documented in the procedural note in E-[facility]. documented in this encounter Medications at Time of Discharge Medication Sig Dispensed Refills Start Date End Date zoledronic aouz-nccutkow-nilmp (zoledronic Acid) 5 mg/100 mL infusion .every [...] Berger MD - 10/12/2021 10:18 AM EST [facility] [place] Operative Note Patient Name: Amber Wells : [id number] MR#: [id number] Case Date: 10/12/2021 Surgeon: Surgeon(s) and Role: [...] 11:30 AM EST Office Visit Dermatology at [facility] [address] [place] [address] [facility] [address] 12/13/2024 11:30 AM EST Appointment [place] [address] 12/13/2024 1:00 PM EST Office [place] [address] [facility] [place] [address] Scheduled Orders Name Type Priority Associated Diagnoses Orde r Schedule ENDOSCOPY CASE REQUEST: EGD, UPPER GI ENDOSCOPY Procedures Routine Joseph's esophagus with high grade dysplasia Ordered: 10/12/2021 documented as of this encounter Procedures Procedure Name Priority Date/Time Associated Diagnosis Comments Edg Flexible Transoral Ablate Tumor Polyp/Lesion W/Dilation & Wire (07007) 10/12/2021 9:56 AM EST Joseph's esophagus with high grade dysplasia UPPER GI ENDOSCOPY Routine 10/12/2021 9: 33 AM EST documented in this encounter Results * UPPER GI ENDOSCOPY (10/12/2021 9:33 AM EST) UPPER GI ENDOSCOPY [facility] Endoscopy ___ Procedure Date: 10/12/2021 9:33 AM ? Patient Name: Amber Wells ? N: [id number] ? Date of : 1960 ? Age: 61 ? Order #: [id number] ? Instrument Name: [id number] ? ___ Procedure: ? Upper GI endoscopy Indications: ? For therapy of Joseph's esophagus, ? Joseph's high grade dysplasia Providers: ? Andrew Berger MD, Braden Dunlap, ? Tamika Lagunas, Steel Finisher Referring MD: ?Danya Acuna Medicines: ? Propofol [...] Active and Recently Administered Medications Care Teams Pulpit Operator Relationship Specialty Start Date End Date Danya Acuna APRN [address] [place] [address] PCP - General Family Medicine 02/19/21 08/12/22 documented as of this encounter
--- OUTSIDE RECORDS SUMMARY | 2024-09-14 13:05 | XMS_ITS | Encounter Summary ---
Author Organization [facility] [place] [address] Care Team Providers Care Blood Bank Technician Name Role Phone Danya Acuna APRN Primary Care Provider [phone] Reason for Visit * Reason Onset Date Comments Medication Refill 10/12/2021 Encounter Details Date Type Department Care Team (Late st Contact Info) Description 10/12/2021 [place]ill [place] [address] Andrew Berger MD [facility] [place] [address] Joseph's esophagus with high grade dysplasia Social [...] 11:30 AM EST Office Visit Dermatology at [facility] [address] [place] [address] Jo Ordaz MD [facility] [place] [address] 12/13/2024 11:30 AM EST [place] [address] 12/13/2024 1:00 PM EST Office [place] [address] Kiet Pardo MD [facility] [place] [address] documented as of this encounter Visit Diagnoses Diagnosis Joseph's esophagus with high grade dysplasia Joseph's esophagus documented in this encounter Care Teams Blood Bank Technician Relationship Specialty Start Date End Date Danya Acuna APRN [address] [place] [address] PCP - General Family Medicine 02/19/21 08/12/22 documented as of this encounter
--- OUTSIDE RECORDS SUMMARY | 2024-09-14 13:05 | XMS_ITS | Encounter Summary ---
Author Organization [facility] [place] [address] Care Team Providers Care Supervisor Picking Crew Name Role Phone Danya Acuna BRIGHT Primary Care Provider [phone] Reason for Visit * Reason Comments Skin Cancer Examination Encounter Details Date Type Department Care Team (Late st Contact Info) Description 06/17/2021 10:45 AM EDT Office Visit Dermatology at [address] [address] Fuad Ordaz MD [facility] [place] [address] Actinic keratoses; Scleroderma; Dermal nevus; Seborrheic keratoses; History of superficial basal cell carcinoma Social History Tobacco Use [...] Progress Notes * Fuad Ordaz MD - 06/17/2021 10:45 AM EDT Images from the original note were not included. DEPARTMENT OF DERMATOLOGY Medical Dermatology Clinic Provider: FUAD ORDAZ MD Preferred name Amber Preferred contact method for results [x] Phone (home) [x] MyD-H [] Letter Permission to leave detailed message Yes Permission to discuss care with , Mike Past Medical History Date, location, treatment Melanoma N DN N SCC N BCC 05/29/19: Left chest, sBCC (ED&C) AK Yes LN2 Other relevant past medical history Scleroderma, Raynaud's phenomenon ?? 04/17/14: Back, myofibroblastic spindle cell tumor (excision) 05/06/14: Back, desmoid-type fibromatosis (resection, excision) 04/20/16: Left anterior thigh, SK 11/02/17: Left extensor forearm, calcinosis cutis 05/22/2020: Right infrascapular back, desmoid tumor (excised by gen surg 06/2020) Family History Details Melanoma Sister NMSC N Other relevant family history N Social History Occupation: not employed Other: Pre-Procedure Screening Details Allergy to lidocaine, epinephrine, Dermabond, chlorhexidine, or adhesives: N Bleeding disorder or blood thinners: N Pacemaker, defibrillator, deep brain stimulator, cochlear implant: N History of Present Illness: Amber Wells is a 61 y.o. established patient who returns to the clinic today for a full skin examination with the following concerns: - Lesions on the frontal scalp that she noticed recently and she believes they need to be treated with LN2. Last FSE: 06/03/2020 Last visit at [facility] Derm: 06/03/2020 Last visit with this provider: 06/03/2020 Medications: Reviewed in eD-H Allergies: Reviewed in [...] extremities. Genitalia and buttocks were not examined. Assessment/Plan: A. Actinic Keratoses - Ill-defined gritty papules on the right forehead x 2, left forehead x 1. - Explained premalignant potential of [...] well. Post-procedure expectations and wound care reviewed. B. Scleroderma - Hvmm-njy-tgvrya skin of scleroderma on the trunk and extremities; punctate hyperkeratotic erosions on the distal fingertips;??sclerodactyly; telangiectasias - Systemic disease managed by Rheumatology. C. Dermal Nevus - Burley, fleshy papule on the left upper vermilion lip. - Discussed benign nature of lesion and provided reassurance. No treatment necessary at this time. D. Seborrheic Keratoses - Stuck on, waxy papules on the trunk and extremities, including left postauricular. - Discussed benign nature of lesions and provided reassurance. No treatment necessary at this time. E. History of sBCC - Well-healed scar on the left chest per skin history. - No evidence of recurrence; will continue to monitor. Other: - N/A RTC: 1 year for FSE [] Note routed to area secretary [x] Recall placed in scheduling system [] Appointment scheduled before exiting Bailey Hall and Sophie Dolan CMA have performed the documentation for this encounter in the presence of and acting as scribes for FUAD ORDAZ MD. I performed the above scribed service and agree with the accuracy of the documentation in this encounter. Reviewed and signed by: FUAD ORDAZ MD Dermatology [facility] documented in this encounter Plan of Treatment Upcoming Encounters Date Type Department Care Team (Late st Contact Info) Description 10/07/2024 11:30 AM EST Office Visit Dermatology at [facility] [address] [place] [address] Fuad Ordaz MD [facility] [place] [address] 12/13/2024 11:30 AM EST Appointment [place] [address] 12/13/2024 1:00 PM EST Office [place] [address] Kiet Pardo MD [facility] [place] [address] documented as of this encounter Visit Diagnoses Diagnosis Actinic keratoses Actinic keratosis Scleroderma Systemic sclerosis Dermal nevus Benign neoplasm of skin, site unspecified Seborrheic keratoses History of superficial basal cell carcinoma Personal history of other malignant neoplasm of skin documented in this encounter Care Teams Supervisor Picking Crew Relationship Specialty Start Date End Date Danya Acuna, BRIGHT [address] [place] [address] PCP - General Family Medicine 02/19/21 08/12/22 documented as of this encounter
--- OUTSIDE RECORDS SUMMARY | 2024-09-14 13:05 | XMS_ITS | Encounter Summary ---
[place] [address] Care Team Providers Care Cafeteria Helper Name Role Phone Armand Danya Dinora NOVOA Primary Care Provider [phone] Reason for Referral * Diagnostic Test (Routine) - Closed Specialty Diagnoses / Procedures Referred By Contac t Referred To Contact Radiology Diagnoses Desmoid fibromatosis Procedures MRI Upper Extremity Non Joint wwo Contrast Solomon Quiros MD [facility] [place] [address] [place] [address] Referral ID Status Reason Start Date Expiration Date V isits Requested Visits Authorized [id number] Closed Specialty Service Requested 10/04/2020 04/03/2022 1 1 Reason for Visit * Diagnostic Test (Routine) - Closed Specialty Diagnoses / Procedures Referred By Contac t Referred To Contact Radiology Diagnoses Desmoid fibromatosis Procedures MRI Upper Extremity Non Joint wwo Contrast Solomon Quiros MD [facility] [place] [address] [place] [address] Referral ID Status Reason Start Date Expiration Date V isits Requested Visits Authorized [id number] Closed Specialty Service Requested 10/04/2020 04/03/2022 1 1 Encounter Details Date Type Department Care Team (Latest Contact Info) Description 03/24/2021 7:38 AM EDT - 03/24/2021 11:59 PM EDT Hospital Encounter MRI at [facility] [place] [address] Solomon Quiros MD [facility] [place] [address] Desmoid fibromatosis Discharge Disposition: Home Social History [...] Dispensed Refills Start Date End Date zoledronic imhs-bqcnfrxg-gsygg (zoledronic Acid) 5 mg/100 mL infusion .every year 03/07/2021 psyllium husk (METAMUCIL ORAL) Take by mouth [...] Take 3 mg by mouth nightly. 05/31/2022 esomeprazole (NexIUM) 40 mg Capsule, Delayed Release(E.C.)Indicatio ns:CKD (chronic kidney disease) stage 3, GFR 30-59 ml/min,Scleroderma Take 1 capsule by mouth 2 times daily. 180 capsule 3 02/14/2021 07/13/2021 lidocaine-prilocaine (EMLA) Cream APPLY TO THE AFFECTED AREA NEEDED 30 g 2 01/18/2021 06/13/2022 fosinopriL (MONOPRIL) 20 mg TabletIndications:Jaimie petersona,CKD (chronic kidney disease) stage 3, GFR 30-59 ml/min TAKE 1 TABLET BY MOUTH ONCE DAILY 90 tablet 3 12/25/2020 09/14/2021 amLODIPine (Norvasc) 10 mg Tablet TAKE 1 [...] 11:30 AM EST Office Visit Dermatology at [address] [place] [address] Jo Ordaz MD [facility] [place] [place] [address] 12/13/2024 11:30 AM EST Appointment [place] [address] 12/13/2024 1:00 PM EST Office [place] [address] Kiet Pardo MD [facility] [place] [address] documented as of this encounter Procedures Procedure Name Priority Date/Time Associated Diagnosis Comments MRI UPPER EXTREMITY NON JOINT WITH/WO CONTRAST Routine 03/24/2021 10:45 AM EDT Desmoid fibromatosis documented in this encounter Results * (ABNORMAL) MRI Upper Extremity Non Joint wwo Contrast (03/24/2021 10:45 AM EDT) Anatomical Region Laterality Modality Shoulder, Arm, Elbow, Forearm, Wrist, Hand Magnetic Resonance Addenda Addendum by Debbie Briones MD on 03/25/2021 4:11 PM EDT --------ADDENDUM #1-------- The report is revised to reflect the omissions regarding liver findings. Liver: The liver was included in some images. There are multiple well-circumscribed bright STIR signal foci. These are incompletely characterized. Consider supplementary CT or MR imaging of liver with and without contrast. Unexpected finding. Thank you for letting us participate in the care of this patient. ??If you are a health care provider and have any questions regarding this report, please contact the number below. ??For patients who have questions please contact the health laboratory animal caretaker that requested your imaging first. ? Electronically signed by: Debbie Briones MD, [facility] ([phone]), at 03/25/2021 4:05 PM --------ORIGINAL REPORT -------- EXAMINATION: MRI UPPER EXTREMITY NON JOINT WWO CONTRAST CLINICAL HISTORY: Hx of bilateral posterior thorax (Back) demsoid tumor s/p resection. This is surveillance of back desmoid. Extending from neck through mid-lumbar back, per ordering provider technique: Pre and postcontrast images of the right posterior chest wall were acquired. Supplementary dynamic enhancement images were also obtained. Contrast: 13 ml of dotarem administered intravenously. COMPARISON: Noncontrast MRI, May 12, 2020. findings: Interval radical resection of desmoid tumor of posterior upper chest wall On the last examination, there is a much shorter length of coverage of the posterior soft tissues on the axial plane. Right posterior chest wall Numerous postsurgical ferromagnetic artifacts extend a wide area along the subcutaneous fat of the right posterior chest wall. The signal alteration is represented by linear irregular strands of dark T1, bright STIR with enhancement extend from midline [spinous process] to the lower medial border of the scapula, from T4 to T7. This soft tissue irregularity is superficial to the trapezius muscle, series 19, sagittal postcontrast series, image 39 -106. A tiny postsurgical fluid is surrounded by splitting of an enhancing band, series 17 image 67. Neurovascular involvement: Absent Bone invasion or periosteal reaction: Absent Left posterior chest wall Only the medial posterior chest wall is included. A plaque-like focus, 23 x 8 mm, series 8 image 12 has similar signal pattern as the right subcutaneous lesions. This is also surrounded by ferromagnetic artifacts. Impression: 1. ??Interval resection of posterior chest wall desmoid lesions isolated ?? in the subcutaneous fat. 2. ??Postsurgical ferromagnetic artifacts are surrounded by linear strands of enhancing bright STIR signal, more extensive across the right posterior upper chest wall. 3. ??No penetration of abnormal signal into the trapezius muscles. 4. ??Findings are nonspecific and represent any combinations of postsurgical change and or small residual desmoid lesion. Thank you for letting us participate in the care of this patient. ??If you are a health care provider and have any questions regarding this report, please contact the number below. ??For patients who have questions please contact the health laboratory animal caretaker that requested your imaging first. ? Electronically signed by: Debbie Briones MD, [facility] ([phone]), at 03/25/2021 9:42 AM Impressions 03/25/2021 9:42 AM EDT Impression: 1. ??Interval resection of posterior chest wall desmoid lesions isolated ??in the subcutaneous fat. 2. ??Postsurgical ferromagnetic artifacts are surrounded by linear strands of enhancing bright STIR signal, more extensive across the right posterior upper chest wall. 3. ??No penetration of abnormal signal into the trapezius muscles. 4. ??Findings are nonspecific and represent any combinations of postsurgical change and or small residual desmoid lesion. Thank you for letting us participate in the care of this patient. ??If you are a health care provider and have any questions regarding this report, please contact the number below. ??For patients who have questions please contact the health laboratory animal caretaker that requested your imaging first. ? Electronically signed by: Debbie Briones MD, [facility] ([phone]), at 03/25/2021 9:42 AM Narrative 03/25/2021 9:42 AM EDT EXAMINATION: MRI UPPER EXTREMITY NON JOINT WWO CONTRAST CLINICAL HISTORY: Hx of bilateral posterior thorax (Back) demsoid tumor s/p resection. This is surveillance of back desmoid. Extending from neck through mid-lumbar back, per ordering provider technique: Pre and postcontrast images of the right posterior chest wall were acquired. Supplementary dynamic enhancement images were also obtained. Contrast: 13 ml of dotarem administered intravenously. COMPARISON: Noncontrast MRI, May 12, 2020. findings: Interval radical resection of desmoid tumor of posterior upper chest wall On the last examination, there is a much shorter length of coverage of the posterior soft tissues on the axial plane. Right posterior chest wall Numerous postsurgical ferromagnetic artifacts extend a wide area along the subcutaneous fat of the right posterior chest wall. The signal alteration is represented by linear irregular strands of dark T1, bright STIR with enhancement extend from midline [spinous process] to the lower medial border of the scapula, from T4 to T7. This soft tissue irregularity is superficial to the trapezius muscle, series 19, sagittal postcontrast series, image 39 -106. A tiny postsurgical fluid is surrounded by splitting of an enhancing band, series 17 image 67. Neurovascular involvement: Absent Bone invasion or periosteal reaction: Absent Left posterior chest wall Only the medial posterior chest wall is included. A plaque-like focus, 23 x 8 mm, series 8 image 12 has similar signal pattern as the right subcutaneous lesions. This is also surrounded by ferromagnetic artifacts. Resulting Agency Comment Unexpected Finding Solomon Quiros MD IMG MRI ORDERABLES documented [...] Intravenous, ONCE PRN, 1 dose, Starting on Mon03/24/21 at 1009, Until Mon03/24/21 at 1011, Per Protocol, Radiology Contrast, Routine Given 03/24/2021 10:11 AM EDT 13 mLs documented in this encounter Care Teams Cafeteria Helper Relationship Specialty Start Date End Date Danya Acuna APRN [address] [place] [address] PCP - General Family Medicine 02/19/21 08/12/22 documented as of this encounter
--- OUTSIDE RECORDS SUMMARY | 2024-09-14 13:05 | XMS_ITS | Encounter Summary ---
Author Organization [facility] Address [facility] [place] [address] Care Team Providers Care Substance Addiction Coordinator Name Role Phone Danya Acuna BRIGHT Primary Care Provider [phone] Encounter Details Date Type Department Care Team (Latest Contact Info) Description 08/23/2021 2:46 PM EDT - 08/23/2021 4:41 PM EDT Hospital En[place] [phone] Andrew Berger MD [facility] [place] [address] Discharge Disposition: Home Social History Tobacco Use [...] Sign Reading Time Taken Comments Blood Pressure 136/81 08/23/2021 4:10 PM EDT Pulse 82 08/23/2021 3:55 PM EDT Temperature 36.3 ??C (97.3 ??F) 08/23/2021 3:18 PM ED T Respiratory Rate 16 08/23/2021 4:10 PM EDT Oxygen Saturation 98% 08/23/2021 4:10 PM EDT Inhaled Oxygen Concentration - - Weight 63 kg (139 lb) 08/23/2021 3:18 PM EDT Height 167.6 cm (5' 6) 08/23/2021 3:18 PM EDT Body Mass Index 22.44 08/23/2021 3:18 PM EDT documented in this encounter Discharge Instructions * Discharge Instructions* Kalli Corley RN - 08/23/2021 4:00 PM EDT Upper GI Endoscopy: What to [...] the day after the procedure, use an yqae-hwo-kvfyjyv spray to numb your throat. Sucking on [...] occurs, please contact your Doctor. Please call [phone] before 8pm Mon-Fri with problems, questions or concerns. If you call after 8pm or on weekends, call the Hospital at [phone] and ask to speak to the Assistant Public Defender monitor technician and the tube former operator will contact that person for you. When should you call for help? Call [phone] anytime you think you may need emergency [...] After Visit Summary and more online at [email or web address] If you would like to provide [...] cost to you. Content Version: 12.2 ?? [id number] [employer]. Care instructions adapted under license by [facility]. If you have questions about a medical condition or this instruction, always ask your healthcare professional. [employer] disclaims any warranty or liability for your use of this information. * Patient Instructions* Andrew Berger MD - 08/23/2021 3:53 PM EDT Please see Recommendations in the Provation procedure report which is documented in the procedural note in E-DH. documented in this encounter Medications at Time of Discharge Medication Sig Dispensed Refills Start Date End Date zoledronic oaeg-oqdjjvhw-gusaa (zoledronic Acid) 5 mg/100 mL infusion .every [...] Lactobacillus acidophilus (PROBIOTIC ORAL) Take by mouth. 01/12/2022 sildenafiL (Revatio) 20 mg Tablet TAKE TWO TABLETS BY MOUTH EVERY MORNING, ONE TABLET EVERY AFTERNOON AND TWO TABLETS EVERY EVENING 150 tablet 5 03/16/2021 01/27/2022 melatonin 3 mg Tablet Take 3 mg by mouth nightly. 05/31/2022 lidocaine-prilocaine (EMLA) Cream APPLY TO THE AFFECTED AREA NEEDED 30 g 2 01/18/2021 06/13/2022 fosinopriL (MONOPRIL) 20 mg TabletIndications:Jaimie davila,CKD (chronic [...] as of this encounter Progress Notes * Andrew Berger MD - 08/23/2021 4:41 PM EDT I called her. Will arrange EGD for Barrx ablation. documented in this encounter H&P Notes * Andrew Berger MD - 08/23/2021 3:09 PM EDT Gastroenterology and Hepatology Pre-Procedure History and Physical Exam Procedure: EGD: Indication: Joseph's surveillance. Patient Active Problem List Diagnosis Code ??? [...] Proceed with the planned endoscopic procedure. ASA 3 - Patient with moderate systemic disease with functional limitations Sedation Plan: deep Risks and benefits of the procedure explained to the patient. Consent signed. documented in this encounter Miscellaneous Notes * Op Note - Andrew Berger MD - 08/23/2021 3:39 PM EDT [facility] Operative Note Patient Name: Amber Wells : [id number] MR#: [id number] Case Date: 08/23/2021 Surgeon: Surgeon(s) and Role: * Andrew Berger MD - Primary Preoperative diagnosis: F/u barretts Postoperative diagnosis: * No post-op diagnosis entered * Procedure(s) (LRB): EGD WITH BIOPSY (WRVU 2.49) (N/A) EGD, UPPER GI ENDOSCOPY (N/A) Anesthesia: General Full procedure note is documented under the Procedure section of eDH. documented in this encounter Plan of Treatment Upcoming Encounters Date Type Department Care Team (Late st Contact Info) Description 10/07/2024 11:30 AM EST Office Visit Dermatology at [facility] [address] [place] [address] Jo Ordaz MD [facility] [place] [address] 12/13/2024 11:30 AM EST [place]oint[place] [phone] 12/13/2024 1:00 PM EST Office [place] [phone] Kiet Pardo MD [facility] [place] [address] documented as of this encounter Procedures Procedure Name Priority Date/Time Associated Diagnosis Comments SPECIMEN TO PATHOLOGY Routine 08/23/2021 3:51 PM EDT SURGICAL PATHOLOGY REPORT Routine 08/23/2021 3:43 PM EDT Upper GI Endoscopy, Diagnostic ([id number]) 08/23/2021 3:36 PM EDT F/u barretts Upper Gi Endoscopy, Biopsy ([id number]) 08/23/2021 3:36 PM EDT F/u barretts documented in this encounter Results * Specimen to Pathology (08/23/2021 3:51 PM EDT) AP Specimen 08/23/2021 3:51 PM EDT 08/23/2021 3:52 PM EDT [facility] - 08/23/2021 3:52 PM EDT Specimen requisition ordered. ??Separate Pathology report to follow Andrew Berger MD PATHOLOGY/CYTOLOGY O RDERABLES [facility] [place] [address] * Surgical Pathology Report (08/23/2021 3:43 PM EDT) Final Diagnosis [id number] ? Location: 4T; EA10; A The signing pathologist has (i) examined the relevant preparation(s) for the specimen(s) and (ii) rendered or confirmed the diagnosis(es). . ? Addendum ADDENDUM DISCUSSION A WATS 3D report ( dated 08/27/2021) on specimen esophagus distal/esophagus GE junction has been received. For the full text of the WATS 3D report(s), please refer to Non-DH Documentation Pathology in the electronic health record (eDH). Electronically signed by: ?Brandon Urrutia MD Verified: ??09/09/2021 15:54 ??Pathologist Performed at: ??-[facility] Dept. of [place]ology, [place], [place] ?Surgical Pathology DIAGNOSIS Distal esophagus, biopsy (Multiple): - ??Joseph's esophagus with ??HIGH-GRADE DYSPLASIA . - ??Multiple levels examined. Electronically signed by: ?Adri HEARD PhD, Josie Verified: ??08/30/2021 13:13 ??Pathologist Performed at: ??-[facility] Dept. of Pathology, [place], [place] DISCUSSION An immunostain for p53 shows a strong, mutant-type staining pattern in the focus of high-grade dysplasia, supporting the diagnosis. Dr. Danny Rowland has reviewed this case and agrees with the diagnosis. ADDITIONAL STUDIES Immunohistochemistry Studies: Formalin-fixed, paraffin-embedded tissue sections are studied using the polymer technique with appropriate positive and negative controls. ?These IHC studies provide the pathologist with adjunctive diagnostic information. Antibody specificity has been verified by testing antibodies on a series of in-house tissues with known immunohistochemical performance characteristics. The clinical interpretation of any antibody positive staining or its absence is evaluated within the context of clinical presentation, morphology, histopathological criteria and other diagnostic tests. Block ? Antibody ?Result (Positive/Negative) A1 ? p53 ?See Discussion A2 ? p53 ?Wild-type(non-muta nt) staining pattern) SPECIMEN(S) SUBMITTED A - Distal esophagus, biopsy (Multiple) CLINICAL INFORMATION Joseph's esophagus R/O dysplasia SPECIMEN PROCESSING A - Labeled/Fixative: Distal esophagus, formalin. Quantity/Size: Fragments, 0.2-0.3 cm. Tissue Description: Soft, claire-pink tissues. Sections/Processing: . SPECIMEN PROCESSING Entirely submitted in 2 cassettes labeled A1-A2. ??pps 09/09/2021 3:54 PM EDT [facility] GI Biopsy 08/23/2021 3:43 PM EDT 08/23/2021 3:43 PM EDT Andrew Berger MD PATHOLOGY/CYTOLOGY O RDERABLES [facility] [place] [address] documented in this encounter Visit Diagnoses Not [...] 3:10 PM EDT 100 mL/hr 100 mL/hr documented in this encounter Active and Recently Administered Medications Times are shown in EDT. Continuous Medication Order 08/21/2021 08/22/2021 08/23/2021 lactated ringers infusion (CANCELED) 100 mL/hr, Intravenous, CONTINUOUS, Starting on Mon08/23/21 at 1545, Until Mon08/23/21 at 1619, Endoscopy (Day of Procedure) 1510 (New Bag - Prov ider: Meghann Kumar RN)1541 (Paused - Provider: Gorge Nance CRNA - Comment: Switch to gravity)1542 (Restarted - Provider: Gorge Nance CRNA) documented in this encounter Care Teams Substance Addiction Coordinator Relationship Specialty Start Date End Date Danya Acuna APRN [address] [place] [address] PCP - General Family Medicine 02/19/21 08/12/22 documented as of this encounter
--- OUTSIDE RECORDS SUMMARY | 2024-09-14 13:05 | XMS_ITS | Encounter Summary ---
[place] [address] Care Team Providers Care Tourist Adviser Name Role Phone Gorge Man MD Primary Care Provider [phone] Reason for Visit * Reason Onset Date Comments Prior Authorization 01/06/2021 Encounter Details Date Type Department Care Team (Late st Contact Info) Description 01/06/2021 Telephone [place] [address] oJdi Pressley Prior Authorization Social History Tobacco Use [...] * Telephone Encounter - Jodi Pressley - 01/06/2021 8:59 AM EST Medication Prior Authorization Pardo Medication name/dose/directions: Sildenafil 20mg - 2 in the AM, 1 at noon, and 2 in the PM Rationale for request: Raynaud's Disease Health plan: [place] Medicaid ([place]) Authorizing field representative name: Leah Sent to health plan on: 01/07/21 Health plan decision: Approved Quantity approved: 150 per 30 days Authorization number: [id number] Start date: 01/06/21 End date: 01/06/22 documented in this encounter Plan of Treatment Upcoming Encounters Date Type Department Care Team (Late st Contact Info) Description 10/07/2024 11:30 AM EST Office Visit Dermatology at [place] [address] [place] [address] Jo Ordaz MD [facility] [place] [address] 12/13/2024 11:30 AM EST Appointment [place] [address] 12/13/2024 1:00 PM EST Office [place] [phone] Kiet Pardo MD [facility] [place] [address] documented as of this encounter Visit Diagnoses Not on filedocumented in this encounter Care Teams Tourist Adviser Relationship Specialty Start Date End Date Gorge Man MD PCP - [facility] Medicine 11/28/18 02/18/21 documented as of this encounter
--- OUTSIDE RECORDS SUMMARY | 2024-09-14 13:05 | XMS_ITS | Encounter Summary ---
Author Organization [facility] [place] [address] Care Team Providers Care Manager Brand Name Role Phone Armand Danya Dinora NOVOA Primary Care Provider Encounter Details Date Type Department Care Team (Late st Contact Info) Description 09/02/2021 Orders [place] [address] Andrew Berger MD [facility] [place] [address] Joseph's esophagus with high grade dysplasia (Primary [...] 11:30 AM EST Office Visit Dermatology at [facility] [address] [place] [phone] Jo Ordaz MD [facility] [place] [address] 12/13/2024 11:30 AM EST Appointment Pulmonology at [place] [phone] 12/13/2024 1:00 PM EST Office [place] [phone] Kiet Pardo MD 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
--- OUTSIDE RECORDS SUMMARY | 2024-09-14 13:05 | XMS_ITS | Encounter Summary ---
[place] [address] Care Team Providers Care Drapery Cutter Machine Name Role Phone Armand Danya Dinora NOVOA Primary Care Provider [phone] Encounter Details Date Type Department Care Team (Late st Contact Info) Description 07/20/2021 Telephone [place] [phone] Evelyn Cross Social History Tobacco Use Types Packs/Day Years [...] encounter Miscellaneous Notes * Telephone Encounter - Evelyn Cross - 07/20/2021 10:43 AM EDT Amber Wells [id number] Diagnosis/Indication: 1. Have you ever had a/an Upper Endoscopy before? Yes: Date 2017 If yes, did you have any problems [...] regarding the gender of your provider? No Preference MONSE 12. Is there any other information you [...] have changed* Estimated body mass index is 22.24 kg/m?? as calculated from the following: Height as of 03/24/21: 170.2 cm (5' 7.01). Weight as of 04/09/21: 64.4 kg (142 lb). Age:61 y.o. documented in this encounter Plan of Treatment Upcoming Encounters Date Type Department Care Team (Late st Contact Info) Description 10/07/2024 11:30 AM EST Office Visit Dermatology at [place] [address] [place] [address] Jo Ordaz MD [facility] [place] [place] [address] 12/13/2024 11:30 AM EST Appointment [place] [phone] 12/13/2024 1:00 PM EST Office [place] [address] Kiet Pardo MD [facility] [place] [address] documented as of this encounter Visit Diagnoses Not on filedocumented in this encounter Care Teams Drapery Cutter Machine Relationship Specialty Start Date End Date Danya Acuna APRN [address] [place] [address] PCP - General Family Medicine 02/19/21 08/12/22 documented as of this encounter
--- OUTSIDE RECORDS SUMMARY | 2024-09-14 13:05 | XMS_ITS | Encounter Summary ---
[place] [address] Care Team Providers Care Artificial Breeding Ranch Supervisor Name Role Phone Armand Danya Dinora NOVOA Primary Care Provider [phone] Reason for Referral * Diagnostic Test (Routine) - Closed Specialty Diagnoses / Procedures Referred By Wander hernandez Referred To Contact Radiology Diagnoses Desmoid fibromatosis Procedures MRI Upper Extremity Non Joint wwo Contrast Solomon Quiros MD [facility] [place] [address] [place] [address] Referral ID Status Reason Start Date Expiration Date V isits Requested Visits Authorized [id number] Closed Specialty Service Requested 04/05/2021 10/06/2022 1 1 Reason for Visit * Reason Comments Follow-up Encounter Details Date Type Department Care Team (Late st Contact Info) Description 03/24/2021 11:45 AM EDT Office [place] [address] Solomon Quiros MD [facility] [place] [address] Desmoid fibromatosis Social History Tobacco [...] Sign Reading Time Taken Comments Blood Pressure 134/67 03/24/2021 11:43 AM EDT Pulse 94 03/24/2021 11:43 AM EDT Temperature - - Respiratory Rate 18 03/24/2021 11:43 AM EDT Oxygen Saturation 100% 03/24/2021 11:43 AM EDT Inhaled Oxygen Concentration - - Weight 64.6 kg (142 lb 6.4 oz) 03/24/2021 11:43 AM EDT Height 170.2 cm (5' 7.01) 03/24/2021 11:43 AM E DT Body Mass Index 22.3 03/24/2021 11:43 AM EDT documented in this encounter Progress Notes * Solomon Quiros MD - 03/24/2021 11:45 AM EDT 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 Previous scalp lesion has resolvee. Nonew lesions. MRI reviewed. Resume surveillance for desmoid. No intervention for scalp lesion Solomon Quiros MD, MPH Surgical Oncology documented in this encounter Plan of Treatment Upcoming Encounters Date Type Department Care Team (Late st Contact Info) Description 10/07/2024 11:30 AM EST Office Visit Dermatology at [facility] [address] [place] [address] Jo Ordaz MD [facility] [place] [address] 12/13/2024 11:30 AM EST [place] [address] 12/13/2024 1:00 PM EST [place] [address] Kiet Pardo MD [facility] [address] [place] [id number] documented as of this encounter Results * [...] who have questions please contact the health residential caregiver that requested your imaging first. ? Narrative [...] and right upper back (for example axial [id number], image 52 and 76), superficial to the [...] patients who have questions please contactthe health residential caregiver that requested your imaging first. Solomon Quiros MD IMG MRI ORDERABLES documented in this encounter Visit Diagnoses Diagnosis Desmoid fibromatosis Other benign neoplasm of connective and other soft tissue of unspecified site Desmoid fibromatosis Other benign neoplasm of connective and other soft tissue of unspecified site documented in this encounter Care Teams Artificial Breeding Ranch Supervisor Relationship Specialty Start Date End Date Danya Acuna, BRIGHT [address] [place] [address] PCP - General Family Medicine 02/19/21 08/12/22 documented as of this encounter
--- OUTSIDE RECORDS SUMMARY | 2024-09-14 13:05 | XMS_ITS | Encounter Summary ---
Author Organization [facility] [place] [address] Care Team Providers Care Vessel Scrapper Helper Name Role Phone Danya Acuna BRIGHT Primary Care Provider [phone] Encounter Details Date Type Department Care Team (Late st Contact Info) Description 03/22/2021 Orders Only [place] [address] Karla Bailey RN Stage 3a chronic kidney [...] at [facility] [address] [place] [address] Jo Ordaz MD [facility] [place] [address] 12/13/2024 11:30 AM EST [place] [address] 12/13/2024 1:00 PM EST [place] [address] Kiet Pardo MD [facility] [place] [address] documented as of this encounter Results * Protein/Creatinine Ratio, urine (04/09/2021 9:14 AM EDT) Creatinine, Urine 26 mg/dL [facility] Protein, Urine 8 0 - 12 mg/dL [facility] Protein / Creatinine Ratio, Urine 0.3 ratio [facility] Urine 04/09/2021 9:14 AM EDT 04/09/2021 9:39 AM EDT Narrative Resulting Agency Comment Spec In Lab Sumit Sawyer MD URINE ORDERABLES [facility] [place] [address] * (ABNORMAL) PTH (04/09/2021 9:09 AM EDT) Parathyroid Hormone 73(H) 15 - 65 pg/mL [facility] Blood 04/09/2021 9:09 AM EDT 04/09/2021 9:56 AM EDT Narrative Resulting Agency Comment Spec In Lab Sumit Sawyer MD CHEMISTRY ORDERABLE S [facility] [place] [address] * Uric acid (04/09/2021 9:09 AM EDT) Uric Acid 5.5 2.5 - 6.5 mg/dL [facility] Blood 04/09/2021 9:09 AM EDT 04/09/2021 9:56 AM EDT Narrative Resulting Agency Comment Spec In Lab Sumit Sawyer MD CHEMISTRY ORDERABLE S [facility] [place] [address] * Albumin Level (04/09/2021 9:09 AM EDT) Albumin 4.3 3.2 - 5.2 gm/dL [facility] Blood 04/09/2021 9:09 AM EDT 04/09/2021 9:56 AM EDT Narrative Resulting Agency Comment Spec In Lab Sumit Sawyer MD CHEMISTRY ORDERABLE S Performing Organization Address City/[facility]/ZIP Co de Phone Number [facility] [place] [address] * Phosphorus (04/09/2021 9:09 AM EDT) Phosphorus 2.6 2.5 - 4.5 mg/dL [facility] Blood 04/09/2021 9:09 AM EDT 04/09/2021 9:56 AM EDT Narrative Resulting Agency Comment Spec In Lab Sumit Sawyer MD CHEMISTRY ORDERABLE S Performing Organization Address City/[facility]/ZIP Co de Phone Number [facility] [place] [address] * (ABNORMAL) Basic Metabolic Panel (non-fasting) (04/09/2021 9:09 AM EDT) Glucose 91 65 - 199 mg/dL [facility] Comment:Diabetes: >=200 mg/d L plus symptoms Blood Urea Nitrogen 19(H) 8 - 18 mg/dL [facility] Creatinine 1.06 0.70 - 1.20 mg/dL [facility] Sodium 141 135 - 145 mmol/L [facility] Potassium 4.7 3.5 - 5.0 mmol/L [facility] Comment: Please note: ??Patients with WBC >100,000 may have falsely elevated Potassium levels. ??For accurate Potassium quantification in these patients send serum separator tube (gold top) for subsequent determinations. ??Contact the Clinical Chemistry Laboratory if there are any questions. Chloride 106 98 - 107 mmol/L [facility] Carbon Dioxide 26 22 - 31 mmol/L [facility] Anion Gap 9 5 - 15 mmol/L [facility] Calcium 9.4 8.5 - 10.5 mg/dL [facility] Est Glomerular Filtration Rate 57(L) >=60 mL/min/1. 73 m?? [facility] Comment: This patient? s estimated glomerular [...] Lab Sumit Sawyer MD CHEMISTRY ORDERABLE S [facility] [place] [address] documented in this encounter Visit Diagnoses Diagnosis Stage 3a chronic kidney disease documented in this encounter Care Teams Vessel Scrapper Helper Relationship Specialty Start Date End Date Danya Acuna APRN [address] [place] [address] PCP - General Family Medicine 02/19/21 08/12/22 documented as of this encounter
--- OUTSIDE RECORDS SUMMARY | 2024-09-14 13:05 | XMS_ITS | Encounter Summary ---
Author Organization [facility] Address [facility] [place] [address] Care Team Providers Care Stem Crusher Name Role Phone Danya Acuna BRIGHT Primary Care Provider [phone] Encounter Details Date Type Department Care Team (Late st Contact Info) Description 10/12/2021 9:52 AM EST Anesthesia [place] [address] Willian Teague MD [facility] [place] [address] Anesthesia Record Procedure Summary Procedure Name Responsible Anesthesiologist Anesthesia Start Time Anesthesia Stop Time EGD, TRANSORAL; WITH ABLATION OF TUMOR(S), POLYP(S), OR OTHER LESION(S) (WRVU 4.01) (Esophagus) Willian Teague MD 10/12/21 0952 10/12/21 1039 Events Date Time Event Comment 10/12/2021 0928 0952 AN Verify 0952 Start 0956 An Start Data 1003 An Induction 1004 Anesthesia Ready 1039 an stop data 1039 Recovery or ICU Handoff Lorri ent care was transferred to the destination unit staff after review of the patient's medical history, current anesthetic/surgical status and plan, according to the Provider Handoff Checklist. 1039 Stop Meds Name Total IV Lidocaine 50 mg Propofol 100 mg Propofol INF 600.96 mg Midazolam 2 mg Lactated Ringers 200 mL * Agents Name O2 Air N2O [...] (RETIRED) Peripheral IV Line - Single Lumen 10/12/21; 0949; cephalic vein (lateral side of arm), right; lxkt-hpg-sogbhh catheter system; Anatomical Landmarks; 22 gauge; K oSto, [place]; 10/12/21; 1213 10/12/21 0949 by Shazia Valera RN 10/12/21 1213 by Ximena Resendez RN documented in this encounter Social History [...] OR Notes * Anesthesia Postprocedure Evaluation - Willian Teague MD - 10/12/2021 11:00 AM EST Department of Anesthesiology Post-procedure Note Patient: Amber Wells Procedure Summary Date: 10/12/21 Room / Location: [facility] ENDO 3 / [facility] Anesthesia Start: 951 Anesthesia Stop: 1038 Procedure: EGD, TRANSORAL; WITH ABLATION OF TUMOR(S), POLYP(S), OR OTHER LESION(S) (WRVU 4.26) (N/AEsophagus) Diagnosis: Joseph's esophagus with high grade dysplasia (Joseph's with HGD-EGD for Joseph's ablation [address] Berger and Propofol within 1 month) Surgeons: Andrew Berger MD Responsible Provider: Willian Teague MD Anesthesia Type: MAC ASA Status: 3 All Anesthesia Providers: Anesthesiologist: Willian Teague MD CORPORATE COUNSELOR: Zbigniew Knox CRNA Vitals Value Taken Time BP 138/79 10/12/21 1200 Temp Pulse Resp 16 10/12/21 1200 SpO2 99 % 10/12/21 1210 Pain Level 0 10/12/21 1225 Patient Location: PACU/[facility] Level of Consciousness: Awake and Alert Pain Management: Satisfactory Analgesia PONV: None Cardiovascular Status: At Baseline and Hemodynamically Stable Respiratory Status: At Baseline and Room Air Postoperative Fluid Status: Intravascular EUvolemia Possible Anesthetic Complications: NONE apparent at time of evaluation Final Primary Anesthesia Type: MAC (The anesthetic type performed was the same as planned.) Comments: Willian Teague MD * Anesthesia Preprocedure Evaluation - Willian Teague MD - 10/12/2021 8:51 AM EST Pre-Anesthesia Evaluation for: Amber Wells [...] crisis Had tunnelled dialysis catheter removed at [facility] in June 2010 ??? Scleroderma Past [...] dialysis for 2 months in 2009 ??? [facility] current use of opiate analgesic Codeine -tylenols [...] ARM performed by Andre Marroquin MD at [facility] MAIN OR ??? PRO COLONOSCOPY, DIAGNOSTIC N/A 01/31/2019 COLONOSCOPY, DIAGNOSTIC performed by Andrew Berger MD at [facility] ENDOSCOPY ??? PRO ENDOSCOPIC US EXAM, ESOPH N/A 03/29/2016 UPPER EUS- ENDOSCOPIC ULTRASOUND performed by Darryl Ash MD at [facility] ENDOSCOPY ??? PRO RAD RESECT/TUMOR, SOFT TISSUE BACK/FLANK, 5CM OR GREATER Right 06/22/2020 RADICAL RESECTION TUMOR BACK OR FLANK; 5 CM OR GREATER (WRVU 22.55) performed by Solomon Quiros MD at [facility] OSC ??? PRO REBL VES VEIN GRFT, UP EXTREM Left 04/08/2016 REPAIR BLOOD VESSEL WITH VEIN GRAFT, UPPER EXTREMITY performed by Andre Marroquin MD at [facility] MAIN OR ??? PRO UPPER GI ENDOSCOPY, BIOPSY N/A 03/29/2016 UPPER GASTROINTESTINAL ENDOSCOPY,WITH BIOPSY SINGLE OR MULTIPLE performed by Darryl Ash MD at [facility] ENDOSCOPY ??? PRO UPPER GI ENDOSCOPY, BIOPSY N/A 01/10/2018 EGD WITH BIOPSY (WRVU 2.49) performed by Andrew Berger MD at [facility] ENDOSCOPY ??? PRO UPPER GI ENDOSCOPY, BIOPSY N/A 08/23/2021 EGD WITH BIOPSY (WRVU 2.49) performed by Andrew Berger MD at [facility] ENDOSCOPY ??? PRO UPPER GI ENDOSCOPY, DIAGNOSTIC N/A 08/23/2021 EGD, UPPER GI ENDOSCOPY performed by Andrew Berger MD at [facility] ENDOSCOPY ??? PRO VEIN BYPASS GRAFT, BRACHIAL ULNAR OR RADIAL Right 10/07/2016 @BYPASS GRAFT, BRACHIAL-ULNAR OR RADIAL W\VEIN (VASC) performed by Andre Marroquin MD at [facility] MAIN OR ??? 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 Smoking status: Former Smoker Packs/day: 1.00 Years: 10.00 Pack years: 10.00 Types: Cigarettes Quit date: 03/30/1988 Years since quittin.5 ??? Smokeless tobacco: Never Used ??? Tobacco [...] Assessment: unlabored breathing Dental Assessment: Misc Assessment: Last Filed Perioperative Cognitive Screening None Anesthesia [...] Consent was signed and placed in chart. Willian Teague MD 10/12/2021 Region - Other Informed Consent: Anesthetic plan and risks discussed with patient. Plan discussed with CORPORATE COUNSELOR. Anesthesia Screening documented in this encounter Plan of Treatment Upcoming Encounters Date Type Department Care Team (Late st Contact Info) Description 10/07/2024 11:30 AM EST Office Visit Dermatology at [facility] [address] [place] [address] Jo Ordaz MD [facility] [address] 12/13/2024 11:30 AM EST Appointment Pulmonology at [place] [phone] 12/13/2024 1:00 PM EST Office [place] [phone] Kiet Pardo MD [facility] [place] [address] documented as of this encounter Visit Diagnoses Not on filedocumented in this encounter Administered Medications Inactive Administered Medications - up to 3 most recent administrations Medication Order MAR Action Action Date Dose Rate Site lactated ringers infusion Intravenous, CONTINUOUS PRN, Starting on Mon10/12/21 at 0952, Until Mon10/12/21 at 1039, Anesthesia Intra-op New Bag 10/12/2021 9:52 AM EST lidocaine (pf) (Xylocaine) (20 mg/mL) 2% injection syringe Intravenous, PRN, Starting on Mon10/12/21 at 1003, Until Mon10/12/21 at 1039, Anesthesia Intra-op, Routine Given 10/12/2021 10:03 AM EST 50 mg midazolam (pf) (Versed) (1 mg/mL) multi-dose injection Intravenous, PRN, Starting on Mon10/12/21 at 0952, Until Mon10/12/21 at 103, Anesthesia Intra-op, Routine Given 10/12/2021 9:52 AM EST 2 mg propofoL (Diprivan) (10 mg/mL) infusion Intravenous, CONTINUOUS PRN, Starting on Mon10/12/21 at 1003, Until Mon10/12/21 at 1039, Anesthesia Intra-op, Routine New Bag 10/12/2021 10:03 AM EST 300 mcg/kg/min 112.68 mL/hr propofoL (Diprivan) 10 mg/mL bolus injection (Anesthesia) Intravenous, PRN, Starting on Mon10/12/21 at 1003, Until Mon10/12/21 at 1039, Anesthesia Intra-op Given 10/12/2021 10:03 AM EST 100 mg documented in this encounter Care Teams Stem Crusher Relationship Specialty Start Date End Date Danya Acuna, PCU RN [address] [place] [address] PCP - General Family Medicine 02/19/21 08/12/22 documented as of this encounter
--- OUTSIDE RECORDS SUMMARY | 2024-09-14 13:05 | XMS_ITS | Encounter Summary ---
Author Organization [facility] [place] [address] Care Team Providers Care Tooth Cutter Spur Name Role Phone Danya Acuna BRIGHT Primary Care Provider [phone] Encounter Details Date Type Department Care Team (Late st Contact Info) Description 08/23/2021 4:15 PM EDT - 08/23/2021 4:45 PM EDT Surgery [place] [phone] Andrew Berger MD [facility] [place] [address] EGD WITH BIOPSY (WRVU 2.39) Social History [...] the day after the procedure, use an oxct-xyh-qajhlrs spray to numb your throat. Sucking on [...] occurs, please contact your Doctor. Please call [phone] before 8pm Mon-Fri with problems, questions or concerns. If you call after 8pm or on weekends, call the Hospital at [phone] and ask to speak to the Rn Infusion patient transportation driver and the electroslag welding machine operator will contact that person for you. When should you call for help? Call [phone] anytime you think you may need emergency [...] After Visit Summary and more online at [email or web address] If you would like to provide [...] cost to you. Content Version: 12.2 ?? 8212-8885 [employer]. Care instructions adapted under license by [facility]. If you have questions about a medical condition or this instruction, always ask your healthcare professional. [employer] disclaims any warranty or liability for your use of this information. * Patient Instructions* Andrew Berger MD - 08/23/2021 3:53 PM EDT Please see Recommendations in the Provation procedure report which is documented in the procedural note in E-DH. documented in this encounter Medications at Time of Discharge Medication Sig Dispensed Refills Start Date End Date zoledronic qnvg-vvhtlpzc-ytpeh (zoledronic Acid) 5 mg/100 mL infusion .every [...] Berger MD - 08/23/2021 3:39 PM EDT [facility] Operative Note Patient Name: Amber Wells : [id number] MR#: [id number] Case Date: 08/23/2021 Surgeon: Surgeon(s) and Role: [...] 11:30 AM EST Office Visit Dermatology at [facility] [address] [place] [address] Jo Ordaz MD [facility] [place] [address] 12/13/2024 11:30 AM EST Appointment [place] [phone] 12/13/2024 1:00 PM EST Office [place] [phone] Kiet Pardo MD [facility] [place] [address] documented as of this encounter Procedures Procedure Name Priority Date/Time Associated Diagnosis Comments SPECIMEN TO PATHOLOGY Routine 08/23/2021 3:51 PM EDT SURGICAL PATHOLOGY REPORT Routine 08/23/2021 3:43 PM EDT Upper GI Endoscopy, Diagnostic ([id number]) 08/23/2021 3:36 PM EDT F/u barretts Upper Gi Endoscopy, Biopsy ([id number]) 08/23/2021 3:36 PM EDT F/u barretts documented in this encounter Results * Specimen to Pathology (08/23/2021 3:51 PM EDT) AP Specimen 08/23/2021 3:51 PM EDT 08/23/2021 3:52 PM EDT [facility] - 08/23/2021 3:52 PM EDT Specimen requisition ordered. ??Separate Pathology report to follow Andrew Berger MD PATHOLOGY/CYTOLOGY O RDERABLES [facility] [address] * Surgical Pathology Report (08/23/2021 3:43 PM EDT) Final Diagnosis [id number] ? Location: 4T; EA10; A The signing [...] MD Verified: ??09/09/2021 15:54 ??Pathologist Performed at: ??-[facility] [place]. [place]ology, [place], [place] ?Surgical Pathology DIAGNOSIS Distal esophagus, biopsy (Multiple): - ??Joseph's esophagus with ??HIGH-GRADE DYSPLASIA . - ??Multiple levels examined. Electronically signed by: ?Adri HEARD PhD, Josie Verified: ??08/30/2021 13:13 ??Pathologist Performed at: ??-[facility] [place]. [place]ology, [place], [place] DISCUSSION An immunostain for p53 shows [...] labeled A1-A2. ??pps 09/09/2021 3:54 PM EDT [facility] GI Biopsy 08/23/2021 3:43 PM EDT 08/23/2021 3:43 PM EDT Andrew Berger MD PATHOLOGY/CYTOLOGY O [place] Performing Organization Address City/State/[facility] Co de Phone Number [facility] [place] [address] documented in this encounter Visit Diagnoses Not [...] CRNA) documented in this encounter Care Teams Tooth Cutter Spur Relationship Specialty Start Date End Date Danya Acuna APRN [address] [place] [address] [address] [place] [address] PCP - General Family Medicine 02/19/21 08/12/22 documented as of this encounter
--- OUTSIDE RECORDS SUMMARY | 2024-09-14 13:05 | XMS_ITS | Encounter Summary ---
[place] [address] Care Team Providers Care Crm Manager Name Role Phone Armand Danya Dinora NOVOA Primary Care Provider [phone] Reason for Visit * Reason Onset Date Comments Prior Authorization 07/14/2021 Encounter Details Date Type Department Care Team (Late st Contact Info) Description 07/14/2021 Telephone [place] [phone] Tanesha Kiran CCMA Prior Authorization Social History [...] Telephone Encounter - Tanesha Kiran LNA - 07/14/2021 3:10 PM EDT Medication Prior Authorization 4L Gastroenterology / [place] [address] Subscriber Insurance: [place] Medicaid Phone: Fax: Physician: Andrew Berger Return Pharmacy: [facility] Fax: Medication Requested: Esomeprazole Strength: 40mg Frequency: Twice Daily Disp.: 180 Refills: 3 Currently taking: Diagnosis for this medication: Joseph's Esophagus, GERD ICD-10 code: (K22.70), (K21.9) Prior medications trialed in this patient: Ranitidine, Omeprazole, Pantoprazole, Esomeprazole-Once Daily Medication: Outcome/Adverse Reactions: Treatment Failure Decision: Approved Tracking number/Case number/Reference number: [id number] Effective date: 07/14/2021 to 07/14/2022 Start: End: documented in this encounter Plan of Treatment Upcoming Encounters Date Type Department Care Team (Late st Contact Info) Description 10/07/2024 11:30 AM EST Office Visit Dermatology at [address] [address] Jo Ordaz MD [facility] [place] [address] 12/13/2024 11:30 AM EST Appointment [place] [address] 12/13/2024 1:00 PM EST Office [place] [address] Kiet Pardo MD [facility] [place] [address] documented as of this encounter Visit Diagnoses Not on filedocumented in this encounter Care Teams Crm Manager Relationship Specialty Start Date End Date Danya Acuna APRN [address] [place] [address] PCP - General Family Medicine 02/19/21 08/12/22 documented as of this encounter
--- OUTSIDE RECORDS SUMMARY | 2024-09-14 13:05 | XMS_ITS | Encounter Summary ---
Author Organization [facility] [place] [address] Care Team Providers Care Cook Chill Technician Name Role Phone Danya Acuna APRN Primary Care Provider [phone] Reason for Visit * Reason Onset Date Comments Medication Refill 07/13/2021 Encounter Details Date Type Department Care Team (Late st Contact Info) Description 07/13/2021 [place] [address] Andrew Berger MD [facility] [place] [address] CKD (chronic kidney disease) stage 3, GFR [...] Visit Dermatology at [address] [place] [address] Jo Ordaz MD [facility] [address] 12/13/2024 11:30 AM EST [place] [address] 12/13/2024 1:00 PM EST [place] [address] Kiet Pardo MD [facility] RHEUMATOLOGY [place], [place] [address] documented as of this encounter Visit Diagnoses Diagnosis CKD (chronic kidney disease) stage 3, GFR 30-59 ml/min Chronic kidney disease, Stage III (moderate) Scleroderma Systemic sclerosis documented in this encounter Care Teams Cook Chill Technician Relationship Specialty Start Date End Date Danya Acuna APRN [address] [place] [address] PCP - General Family Medicine 02/19/21 08/12/22 documented as of this encounter
--- OUTSIDE RECORDS SUMMARY | 2024-09-14 13:05 | XMS_ITS | Encounter Summary ---
Author Organization [facility] [place] [address] Care Team Providers Care Young Adult Librarian Name Role Phone Danya Acuna APRN Primary Care Provider [phone] Encounter Details Date Type Department Care Team (Late st Contact Info) Description 10/12/2021 Orders Only [place] [address] Andrew Berger MD [facility] [place] [address] Social History Tobacco Use Types Packs/Day Years [...] AM EST Office Visit Dermatology at [facility] [address] [place] [address] Jo Ordaz MD [facility] [place] [address] 12/13/2024 11:30 AM EST Appointment [place] [phone] 12/13/2024 1:00 PM EST Office Visit [place] [phone] Kiet Pardo MD [facility] [place] [address] documented as of this encounter Visit Diagnoses Not on filedocumented in this encounter Care Teams Young Adult Librarian Relationship Specialty Start Date End Date Danya Acuna APRN [address] [place] [address] PCP - General Family Medicine 02/19/21 08/12/22 documented as of this encounter
--- OUTSIDE RECORDS SUMMARY | 2024-09-14 13:05 | XMS_ITS | Encounter Summary ---
Author Organization [facility] Address [facility] [place] [address] Care Team Providers Care Collar Shaper Operator Name Role Phone Danya Acuna BRIGHT Primary Care Provider [phone] Encounter Details Date Type Department Care Team (Late st Contact Info) Description 09/07/2021 External [place] [phone] Provider, Scanning Social History Tobacco Use Types [...] 11:30 AM EST Office Visit Dermatology at [place] [address] [place] [address] Jo Ordaz MD [facility] [place] [address] 12/13/2024 11:30 AM EST Appointment [place] [address] 12/13/2024 1:00 PM EST Office [place] [address] [facility] [place] [address] documented as of this encounter Procedures Procedure Name Priority Date/Time Associated Diagnosis Comments SURGICAL PATHOLOGY SCAN Routine 09/07/2021 documented in this encounter Results * Scan Doc: Surgical Pathology (09/07/2021) Historical Provider MD FAITH MGR SCAN EX T ORDR/RSLT documented in this encounter Visit Diagnoses Not on filedocumented in this encounter Care Teams Collar Shaper Operator Relationship Specialty Start Date End Date Danya Acuna APRN [address] [place] [address] [address] [place] [address] PCP - General Family Medicine 02/19/21 08/12/22 documented as of this encounter
--- OUTSIDE RECORDS SUMMARY | 2024-09-14 13:05 | XMS_ITS | Encounter Summary ---
[place] [address] Care Team Providers Care Melter Caster Name Role Phone Danya Acuna APRN Primary Care Provider Reason for Referral * Diagnostic Test (Routine) - Closed Specialty Diagnoses / Procedures Referred By Contac t Referred To Contact Radiology Diagnoses Liver lesion Procedures MRI Abdomen wwo Contrast (Generic) Padmini Birch APRN [address] [place] [address] [place] [address] Referral ID Status Reason Start Date Expiration Date V isits Requested Visits Authorized [id number] Closed Specialty Service Requested 06/04/2021 12/05/2022 1 1 Reason for Visit * Diagnostic Test (Routine) - Closed Specialty Diagnoses / Procedures Referred By Contac t Referred To Contact Radiology Diagnoses Liver lesion Procedures MRI Abdomen wwo Contrast (Generic) Padmini Birch APRN [address] [place] [address] [place] [address] Referral ID Status Reason Start Date Expiration Date V isits Requested Visits Authorized [id number] Closed Specialty Service Requested 06/04/2021 12/05/2022 1 1 Encounter Details Date Type Department Care Team (Late st Contact Info) Description 07/15/2021 10:28 AM EDT - 07/15/2021 11:59 PM EDT Hospital Encounter MRI at [facility], [place] [address] Padmini Birch M, VISITOR INFORMATION ASSISTANT [address] [place] [address] Liver lesion Discharge Disposition: Home Social History Tobacco Use [...] Dispensed Refills Start Date End Date zoledronic vudq-sxexqtsn-ouwbh (zoledronic Acid) 5 mg/100 mL infusion .every [...] 11:30 AM EST Office Visit Dermatology at [place] [address] [place] [address] [facility] [place] [address] 12/13/2024 11:30 AM EST Appointment [place] [address] 12/13/2024 1:00 PM EST Office [place] [address] [facility] [place] [address] documented as of this encounter Procedures Procedure Name Priority Date/Time Associated Diagnosis Comments MRI ABDOMEN WWO CONTRAST Routine 07/15/2021 12:02 PM EDT Liver lesion documented in this encounter Results * MRI Abdomen wwo Contrast (Generic) (07/15/2021 12:02 PM EDT) Anatomical Region Laterality Modality Abdomen Magnetic Resonan ce Impressions 07/15/2021 2:55 PM EDT 1. ??Scattered hepatic cysts some of which have increased in size but do not exhibit change in morphology and have benign imaging features with internal septations corresponding to macro lobulations. 2. ??Trace bilateral pleural effusions. 3. ??Stable 5 mm cystic focus in the tail of the pancreas, likely side branch IPMN. Her JACR management of incidental pancreatic cysts, consider follow-up MRI abdomen with and without contrast in 2 years. I have personally reviewed the image(s) and the resident's interpretation and agree with the findings, Kiet Nick MD at 07/15/2021 2:55 PM Thank you for letting us participate in the care of this patient. ??If you are a health care provider and have any questions regarding this report, please contact the number below. ??For patients who have questions please contact the health child care director that requested your imaging first. ? Electronically signed by: Kiet Nick MD, [facility] ([phone]), at 07/15/2021 2:55 PM Narrative 07/15/2021 2:55 PM EDT EXAMINATION: MRI ABDOMEN WWO CONTRAST (GENERIC) CLINICAL HISTORY: Liver disease.; Liver lesion. TECHNIQUE: MRI of the abdomen was performed with images obtained prior to and following the intravenous administration of 13 ml Dotarem. COMPARISON: MRI abdomen dated 03/22/2016, MRI of the upper extremity dated 03/24/2021 FINDINGS: Lower chest: Trace bilateral pleural effusions. Liver: Normal size and signal intensity. There are numerous T2 hyperintense, T1 hypointense nonenhancing simple hepatic cysts. The largest in the lateral segment of the left hepatic lobe has increased in size and now measures 29 x 33 mm. Increased number of smaller hepatic cysts throughout the liver. Many of these cysts or abutting with internal septations which correspond to macro lobulations. No thick enhancing septi or mural nodules. Patent hepatic and portal veins.. Bile ducts: Nondilated. Gallbladder: No gallstones. Normal caliber wall. Pancreas: Redemonstrated pancreatic divisum. Unchanged 5 mm T2 hyperintense focus contiguous with the duct in the tail of the pancreas (series 4 image 25). It is unchanged in appearance compared to 03/22/2016 MRI. Spleen: Normal. Adrenals: Normal. Kidneys: Numerous T2 hyperintense, T1 hypointense, nonenhancing renal cysts. The largest in the right lower pole measures 9 mm. Vasculature: No aneurysm. Lymph nodes: No enlarged lymph nodes. Bowel: Nondilated, no inflammatory changes. Peritoneum and mesentery: No ascites or loculated fluid collection. Marrow Signal: Normal. Procedure Note Kiet Nick MD - 07/15/2021 EXAMINATION: MRI ABDOMEN WWO CONTRAST (GENERIC) CLINICAL HISTORY: Liver disease.; Liver lesion. TECHNIQUE: MRI of the abdomen was performed with images obtained prior toand following the intravenous administration of 13 ml Dotarem. COMPARISON: MRI abdomen dated 03/22/2016, MRI of the upper extremity dated 03/24/2021 FINDINGS: Lower chest: Trace bilateral pleural effusions. Liver: Normal size and signal intensity. There are numerous H6vxyqesqkwgtr, T1 hypointense nonenhancing simple hepatic cysts. The largest in thelateral segment of the left hepatic lobe has increased in size and now measures 29x 33 mm. Increased number of smaller hepatic cysts throughout the liver. Manyof these cysts or abutting with internal septations which correspond tomacro lobulations. No thick enhancing septi or mural nodules. Patent hepaticand portal veins.. Bile ducts: Nondilated. Gallbladder: No gallstones. Normal caliber wall. Pancreas: Redemonstrated pancreatic divisum. Unchanged 5 mm E4egatydprvpux focus contiguous with the duct in the tail of the pancreas (series 4 image25). It is unchanged in appearance compared to 03/22/2016 MRI. Spleen: Normal. Adrenals: Normal. Kidneys: Numerous T2 hyperintense, T1 hypointense, nonenhancing renalcysts. The largest in the right lower pole measures 9 mm. Vasculature: No aneurysm. Lymph nodes: No enlarged lymph nodes. Bowel: Nondilated, no inflammatory changes. Peritoneum and mesentery: No ascites or loculated fluid collection. Marrow Signal: Normal. IMPRESSION 1. Scattered hepatic cysts some of which have increased in size but donot exhibit change in morphology and have benign imaging features withinternal septations corresponding to macro lobulations. 2. Trace bilateral pleural effusions. 3. Stable 5 mm cystic focus in the tail of the pancreas, likely sidebranch IPMN. Her JACR management of incidental pancreatic cysts, considerfollow-up MRI abdomen with and without contrast in 2 years. I have personally reviewed the image(s) and the resident's interpretationand agree with the findings, Kiet Nick MD at 07/15/2021 2:55 PM Thank you for letting us participate in the care of this patient. If youare a health care provider and have any questions regarding this report,please contact the number below. For patients who have questions please contactthe health child care director that requested your imaging first. Electronically signed by: Kiet Nick MD, [facility]([phone]), at 07/15/2021 2:55 PM Padmini Birch VISITOR INFORMATION ASSISTANT IMG MRI ORDERABLES documented in this encounter Visit Diagnoses Diagnosis Liver lesion Other specified disorders of liver documented in this encounter Administered Medications Inactive Administered Medications - up to 3 most recent administrations Medication Order MAR Action Action Date Dose Rate Site gadoterate meglumine (Dotarem) (0.5 mMol/mL) injection solution 0-100 mL 0-100 mL, Intravenous, ONCE PRN, 1 dose, Starting on Nancy 07/15/21 at 1152, Until Nancy 07/15/21 at 1146, Per Protocol, Radiology Contrast, Routine Given 07/15/2021 11:46 AM EDT 13 mLs documented in this encounter Care Teams Melter Caster Relationship Specialty Start Date End Date Danya Acuna, BRIGHT [address] [place] [address] PCP - General Family Medicine 02/19/21 08/12/22 documented as of this encounter
--- OUTSIDE RECORDS SUMMARY | 2024-09-14 13:05 | XMS_ITS | Encounter Summary ---
Author Organization [facility] [place] [address] Care Team Providers Care Etcher Apprentice Photoengraving Name Role Phone Danya Acuna BRIGHT Primary Care Provider [phone] Reason for Visit * Reason Comments Follow-up Encounter Details Date Type Department Care Team (Late st Contact Info) Description 09/24/2021 9:30 AM EDT Office [place] [address] Kiet Pardo MD [facility] [place] [address] Scleroderma; Other osteoporosis, unspecified pathological fracture presence; Stage 3 chronic kidney disease, unspecified whether stage 3a or 3b CKD Social History Tobacco Use Types Packs/Day Years [...] Sign Reading Time Taken Comments Blood Pressure 129/76 09/24/2021 9:35 AM EDT Pulse 90 09/24/2021 9:35 AM EDT Temperature 36.6 ??C (97.8 ??F) 09/24/2021 9:35 AM ED T Respiratory Rate 16 09/24/2021 9:35 AM EDT Oxygen Saturation 99% 09/24/2021 9:35 AM EDT Inhaled Oxygen Concentration - - Weight 62.6 kg (138 lb 1.6 oz) 09/24/2021 9:35 A M EDT Height 167.6 cm (5' 6) 09/24/2021 9:35 AM EDT Body Mass Index 22.29 09/24/2021 9:35 AM EDT documented in this encounter Progress Notes * Kiet Pardo MD - 09/24/2021 9:30 AM EDT This is a return rheumatology visit for Ms. Cuevas with longstanding diffuse scleroderma complicated in the past by renal crisis with subsequent stage III CKD.. Since her last encounter approximately 6 months ago Ms. 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 She is also scheduled to undergo Botox injections which have helped significantly with her Raynaud's. She requests topical antibiotic therapy for treatment of periodic fingertip ulcers during the winter months and we discussed in this regard sulfacetamide and Silvadene topically. Medications were reviewed. Current Outpatient Medications on File Prior to Visit Medication Sig Dispense Refill ??? fosinopriL (MONOPRIL) 20 mg Tablet TAKE 1 TABLET BY MOUTH EVERY DAY 90 tablet 3 ??? polyethylene glycoL (Miralax) 17 gram/dose Powder Take 17 g by mouth daily. ??? esomeprazole (NexIUM) 40 mg Capsule, Delayed Release(E.C.) Take 1 capsule by mouth 2 times daily. 180 capsule 3 ??? Lactobacillus acidophilus (PROBIOTIC ORAL) Take by mouth. ??? psyllium husk (METAMUCIL ORAL) Take by mouth daily. ??? sildenafiL (Revatio) 20 mg Tablet TAKE TWO TABLETS BY MOUTH EVERY MORNING, ONE TABLET EVERY AFTERNOON AND TWO TABLETS EVERY EVENING 150 tablet 5 ??? fish oil-omega-3 fatty acids 1,000 mg Capsule Take 1,000 mg by mouth daily. ??? lidocaine-prilocaine (EMLA) Cream APPLY TO THE AFFECTED AREA NEEDED 30 g 2 ??? amLODIPine (Norvasc) 10 mg Tablet TAKE [...] as needed for Pain.30 tablet 1 ??? vitamin E 400 unit Capsule Take 400 Units by mouth daily. ??? Cholecalciferol, Vitamin D3, (VITAMIN D) 1,000 unit Cap Take 1 tablet by mouth daily. ??? nitroGLYcerin (NITROGLYN) 2 % ointment Place 0.5 inches onto the skin every 6 hours. ??? melatonin 3 mg Tablet Take 3 mg by mouth nightly. ??? loperamide (IMMODIUM) 2 mg Capsule Take 2 mg by mouth 4 times daily as needed for Diarrhea. No current facility-administered medications on file prior to visit. Physical examination:BP 129/76 Pulse 90 Temp 36.6 ??C (97.8 ??F) (Temporal) Resp 16 Ht 167.6 cm (5' 6) Wt 62.6 kg (138 lb 1.6 oz) LMP 11/27/2014 SpO2 99% BMI 22.29 kg/m?? Skin examination showed sclerodactyly, digital flexion contractures and digital pitting scars but no active digital ischemic ulcers. The total skin score measured 0 without detectable proximal skin sclerosis. The chest showed clear lung rush. The cardiac examination normal heart sounds with no accentuation of the pulmonic component of the second heart sound. There was no peripheral edema. The comprehensive musculoskeletal examination showed no active synovitis with deformities as indicated above. Impression: Longstanding diffuse scleroderma with stable CKD as a consequence of SRC and recently found to have high-grade dysplasia on EGD. At this time Ms. Cuevas was advised to continue her PPI. She will continue calcium and vitamin D supplementation and we will also try to resume Reclast infusions. She was given prescriptions for Silvadene and topical sulfacetamide to try in the event of digital ulcers. She will follow up with GI regarding her upcoming surgery and plan on a return visit in approximately 6 months in rheumatology. Total visit time 40 minutes. documented in this encounter Plan of Treatment Upcoming Encounters Date Type Department Care Team (Late st Contact Info) Description 10/07/2024 11:30 AM EST Office Visit Dermatology at [place] [address] [place] [address] Jo Ordaz MD [facility] [place] [address] 12/13/2024 11:30 AM EST Appointment [place] [address] 12/13/2024 1:00 PM EST Office [place] [address] Kiet Pardo MD [facility] [place] [address] documented as of this encounter Visit Diagnoses Diagnosis Scleroderma Systemic sclerosis Other osteoporosis, unspecified pathological fracture presence Stage 3 chronic kidney disease, unspecified whether stage 3a or 3b CKD documented in this encounter Care Teams Etcher Apprentice Photoengraving Relationship Specialty Start Date End Date Danya Acuna APRN [address] [place] [address] [address] [place] [address] PCP - General Family Medicine 02/19/21 08/12/22 documented as of this encounter
--- OUTSIDE RECORDS SUMMARY | 2024-09-14 13:05 | XMS_ITS | Encounter Summary ---
Author Organization [facility] [place] [address] Care Team Providers Care Crystal Grinder Name Role Phone Gorge Man MD Primary Care Provider [phone] Reason for Visit * Reason Onset Date Comments Medication Refill 02/12/2021 Encounter Details Date Type Department Care Team (Late st Contact Info) Description 02/12/2021 [place] [address] Suzie Eddy CKD (chronic kidney disease) stage 3, GFR [...] 11:30 AM EST Office Visit Dermatology at [facility] [address] [place] [address] Jo Ordaz MD [facility] [address] [place], [place] [id number] [phone] 12/13/2024 11:30 AM EST Appointment [place] [address] 12/13/2024 1:00 PM EST Office [place] [address] Kiet Pardo MD [facility] RHEUMATOLOGY [place] [id number] documented as of this encounter Visit Diagnoses Diagnosis CKD (chronic kidney disease) stage 3, GFR 30-59 ml/min Chronic kidney disease, Stage III (moderate) Scleroderma Systemic sclerosis documented in this encounter Care Teams Crystal Grinder Relationship Specialty Start Date End Date Gorge Man MD PCP - [facility] Medicine 11/28/18 02/18/21 documented as of this encounter
--- OUTSIDE RECORDS SUMMARY | 2024-09-14 13:05 | XMS_ITS | Encounter Summary ---
[place] [address] Care Team Providers Care Recoater Name Role Phone Bruce Acunaeen Dinora NOVOA Primary Care Provider [phone] Encounter Details Date Type Department Care Team (Late st Contact Info) Description 09/02/2021 Telephone [place] [phone] Evelyn Cross Social History Tobacco Use Types [...] * Telephone Encounter - Evelyn Cross - 09/02/2021 1:48 PM EDT Amber Wells [id number] Diagnosis/Indication: Joseph's with HGD-EGD for Joseph's ablation [address] Berger and Propofol within 1 month 1. Have you ever had a/an Upper Endoscopy before? Yes: Date 2020 If yes, did you have any problems [...] the gender of your provider? No Preference torsten 12. Is there any other information you [...] have changed* Estimated body mass index is 22.44 kg/m?? as calculated from the following: Height as of 08/23/21: 167.6 cm (5' 6). Weight as of 08/23/21: 63 kg (139 lb). Age:61 y.o. documented in this encounter Plan of Treatment Upcoming Encounters Date Type Department Care Team (Late st Contact Info) Description 10/07/2024 11:30 AM EST Office Visit Dermatology at [facility] [address] [place] [address] Jo Ordaz MD [facility] [place] [address] 12/13/2024 11:30 AM EST Appointment [place] [address] 12/13/2024 1:00 PM EST Office [place] [address] Kiet Pardo MD [facility] [place] [address] documented as of this encounter Visit Diagnoses Not on filedocumented in this encounter Care Teams Recoater Relationship Specialty Start Date End Date Danya Acuna APRN [address] [place] [address] [address] [place] [address] PCP - General Family Medicine 02/19/21 08/12/22 documented as of this encounter
--- OUTSIDE RECORDS SUMMARY | 2024-09-14 13:06 | XMS_ITS | Encounter Summary ---
Author Organization [facility] [place] [address] Care Team Providers Care Reliner Name Role Phone Gorge Man MD Primary Care Provider [phone] Reason for Visit * Reason Comments Establish Care * Consultation (Routine) - Closed Specialty Diagnoses / Procedures Referred By Wander hernandez Referred To Contact General Surgery Diagnoses Neoplasm of uncertain behavior of skin DESMOID FIBROMATOSIS OF SKIN Gorge Man MD [address] [place] [id number] Solomon Quiros MD [facility] [place] [address] Referral ID Status Reason Start Date Expiration Date V isits Requested Visits Authorized [id number] Closed Consult, Test & Treat Connection Center PCP Updated and/or Approved 05/19/2020 05/19/2021 1 1 Encounter Details Date Type Department Care Team (Late st Contact Info) Description 06/03/2020 1:00 PM EDT Office [place] [phone] Solomon Quiros MD [facility] [address] Desmoid fibromatosis Social History Tobacco [...] Sign Reading Time Taken Comments Blood Pressure 114/60 06/03/2020 1:03 PM EDT Pulse 81 06/03/2020 1:03 PM EDT Temperature 36.6 ??C (97.8 ??F) 06/03/2020 1:03 PM ED T Respiratory Rate 18 06/03/2020 1:03 PM EDT Oxygen Saturation 97% 06/03/2020 1:03 PM EDT Inhaled Oxygen Concentration - - Weight 62.6 kg (138 lb) 06/03/2020 1:03 PM EDT Height 170.2 cm (5' 7) 06/03/2020 1:03 PM EDT Body Mass Index 21.61 06/03/2020 1:03 PM EDT documented in this encounter H&P Notes * Solomon Quiros MD - 06/03/2020 1:00 PM EDT Surgical Oncology Consultation Note Reason for Visit: Amber Wells is a 60 y.o. female seen in follow-up for desmoid of the back. First visit with me taking Initial History of the present illness: Amber Wells is a 60 y.o. year old female with PMH significant for desmoid of the back and scleroderma. Patient returns for follow-up for desmoid of the back. Patient reports doing quite well, no new lumps/bumps. Interval History of Present Illness Patient represents with new lesion on right side of back. Scleroderma under good condition. Active Ambulatory Problems Diagnosis Date Noted ??? Anemia of chronic renal failure, stage 4 (severe) ??? CKD (chronic kidney disease) stage 4, GFR 15-29 ml/min 04/20/2010 ??? GERD (gastroesophageal reflux disease) ??? Scleroderma 11/20/1990 ??? AK (actinic keratosis) 05/25/2013 ??? Solar lentigo 05/25/2013 ??? Multiple nevi 05/25/2013 ??? 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 Altered bowel habits 11/03/2014 ??? Fecal incontinence 12/10/2015 ??? Swelling of extremity, right 10/12/2016 ??? Raynaud's disease without gangrene 11/02/2017 ??? 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 Other disorder of muscle, ligament, and fascia 12/09/2014 ??? Raynaud phenomenon 04/08/2016 Past Medical History: Diagnosis Date ??? Anemia associated with chronic renal failure ??? Anemia in CKD (chronic kidney disease) ??? Arthritis ??? Bowel disease ??? Chronic kidney disease 2009 ??? Chronic pain ??? Gastroesophageal reflux ??? Genetic syndrome ??? High blood pressure ??? Hypertension ??? Intraoperative complication ??? Irregular heart beat ??? Kidney failure ??? 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 Motion sickness ??? Neuromuscular disorder ??? Post-operative nausea and vomiting ??? Raynaud's syndrome 1990 Past Surgical History: Procedure Laterality Date ??? CREATED BY INTERFACE Entered not Verified Procedure Date: 01/27/2011 ??? CREATED BY INTERFACE No History of Operative Procedures Procedure Date: 01/27/2011 ??? DILATION AND CURETTAGE OF UTERUS ??? PRO APPLY FOREARM SPLINT, STATIC Left 04/08/2016 SPLINT APPLICATION, SHORT ARM performed by Andre Marroquin MD at [facility] MAIN OR ??? PRO COLONOSCOPY, DIAGNOSTIC N/A 01/31/2019 COLONOSCOPY, DIAGNOSTIC performed by Andrew Berger MD at [facility] ENDOSCOPY ??? PRO ENDOSCOPIC US EXAM, ESOPH N/A 03/29/2016 UPPER EUS- ENDOSCOPIC ULTRASOUND performed by Darryl Ash MD at [facility] ENDOSCOPY ??? PRO REBL VES VEIN GRFT, UP EXTREM Left 04/08/2016 REPAIR BLOOD VESSEL WITH VEIN GRAFT, UPPER EXTREMITY performed by Andre Marroquin MD at [facility] MAIN OR ??? PRO UPPER GI ENDOSCOPY, BIOPSY N/A 03/29/2016 UPPER GASTROINTESTINAL ENDOSCOPY,WITH BIOPSY SINGLE OR MULTIPLE performed by Darryl Ash MD at [facility] ENDOSCOPY ??? PRO UPPER GI ENDOSCOPY, BIOPSY N/A 01/10/2018 EGD WITH BIOPSY (WRVU 2.49) performed by Andrew Berger MD at [facility] ENDOSCOPY ??? PRO VEIN BYPASS GRAFT, BRACHIAL ULNAR OR RADIAL Right 10/07/2016 @BYPASS GRAFT, BRACHIAL-ULNAR OR RADIAL W\VEIN (VASC) performed by Andre Marroquin MD at [facility] MAIN OR ??? 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 TUMOR REMOVAL desmoid tumor from thoracic spine Review of systems: A 12 point comprehensive ROS was reviewed with the patient. It was otherwise negative except for what was stated in the HPI. she otherwise denies high blood pressure, heart disease, lung disease, diabetes, and infectious diseases. Current Outpatient Medications: ??? augmented betamethasone dipropionate (DIPROLENE-AF) 0.05 % Ointment, Apply topically to affected area on the right ear twice daily for 2 weeks, then only on weekends., Disp: 15 g, Rfl: 1 ??? esomeprazole (NexIUM) 40 mg Capsule, Delayed Release(E.C.), Take 1 capsule by mouth 2 times daily., Disp: 180 capsule, Rfl: 3 ??? sildenafil (Revatio) 20 mg Tablet, TAKE TWO TABLETS BY MOUTH EVERY MORNING, ONE TABLET BY MOUTHEVERY AFTERNOON AND TWO TABLETS BY MOUTH EVERY EVENING., Disp: 150 tablet, Rfl: 5 ??? lidocaine-prilocaine (EMLA) Cream, Apply to affected areas as needed., Disp: 30 g, Rfl: 2 ??? amLODIPine (Norvasc) 10 mg Tablet, Take 1 tablet by mouth daily., Disp: 90 tablet, Rfl: 3 ??? fosinopriL (MONOPRIL) 20 mg Tablet, Take 1 tablet by mouth daily., Disp: 90 tablet, Rfl: 3 ??? acetaminophen-codeine (TYLENOL #3) 300-30 mg Tablet, Take 2 tablets by mouth every 6 hours as needed for Pain. Reported on 03/29/2017, Disp: 60 tablet, Rfl: 0 ??? glycerin, adult, Suppository, daily as needed., Disp: , Rfl: 0 ??? LIDOCAINE 2 % Solution, APPLY TO PAINFUL AREAS IF NEEDED, Disp: , Rfl: 0 ??? acetaminophen (TYLENOL) 500 mg Tablet, Take 2 tablets by mouth every 8 hours as needed for Pain., Disp: 30 tablet, Rfl: 1 ??? loperamide (IMMODIUM) 2 mg Capsule, Take 2 mg by mouth 4 times daily as needed for Diarrhea., Disp: , Rfl: ??? vitamin E 400 unit Capsule, Take 400 Units by mouth daily., Disp: , Rfl: ??? Cholecalciferol, Vitamin D3, (VITAMIN D) 1,000 unit Cap, Take 1 tablet by mouth daily., Disp: ,Rfl: ??? nitroGLYcerin (NITROGLYN) 2 % ointment, Place 0.5 inches onto the skin every 6 hours., Disp: , Rfl: Allergies: Allergies Allergen Reactions ??? Other [Unclassified Drug] Lobster--weird sensation Social History: Social History Socioeconomic History ??? Marital status: Spouse name: Not on file ??? Number of children: Not on file ??? Years of education: Not on file ??? Highest education level: Not on file Occupational History ??? Not on file Social Needs ??? Financial resource strain: Not on file ??? Food insecurity Worry: Not on file Inability: Not on file ??? Transportation needs Medical: Not on file Non-medical: Not on file Tobacco Use ??? Smoking status: Former Smoker Packs/day: 1.00 Years: 10.00 Pack years: 10.00 Types: Cigarettes Quit date: 03/30/1988 Years since quittin.2 ??? Smokeless tobacco: Never Used Substance and Sexual Activity ??? Alcohol use: Yes Alcohol/week: 1.0 standard drinks Types: 1 Glasses of wine per week Comment: once a week ??? Drug use: No ??? Sexual activity: Not on file Lifestyle ??? Physical activity Days per week: Not on file Minutes per session: Not on file ??? Stress: Not on file Relationships ??? Social connections Talks on phone: Not on file Gets together: Not on file Attends spiritism service: Not on file Active member of club or organization: Not on file Attends meetings of clubs or organizations: Not on file Relationship status: Not on file ??? Intimate partner violence Fear of current or ex partner: Not on file Emotionally abused: Not on file Physically abused: Not on file Forced sexual activity: Not on file Other Topics Concern ??? Not on file Social History Narrative ??? Not on file Family History Problem Relation Age of Onset ??? Glaucoma Brother ??? Diabetes Maternal Grandmother ??? Alcohol Use Disorder Father He was getting drunk 2 or 3 nights a week but never missed a day work ??? Cancer Neg Hx Physical Examination: Constitutional: This is a 60 y.o. female in no apparent distress. BP 114/60 Pulse 81 Temp 36.6 ??C (97.8 ??F) Resp 18 Ht 170.2 cm (5' 7) Wt 62.6 kg (138 lb) LMP 11/27/2014 SpO2 97% BMI 21.61 kg/m?? Lymphatic basin exam: There was no palpable adenopathy in the bilateral supraclavicular, cervical, axillary or inguinal regions. Eyes: anicteric, extra ocular movements are intact Neuro: No focal deficits. Hearing and speech intact Psych: the patient is alert and oriented. Normal affect. Heart: Regular rate and rhythm. No peripheral edema Lungs: Clear bilaterally with good air intake Abdomen: Soft, non-tender, non-distended. There are normal active bowel sounds, no hepatosplenomegaly. Musculoskeletal: The patient has normal gait, range of motion, and muscle strength Skin: warm, dry, good turgor, non-icteric. MRI Right Thorax (06/01/2020) IMPRESSION impression: 1. Subcutaneous relatively well-circumscribed mass in right posterior chest wall, without characteristic signal pattern. Differential diagnosis include any soft tissue neoplasm, benign or malignant. 2. Consider MRI with and without contrast to further characterize if indicated. Pathology (05/22/2020) Right back, skin punch ?? 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 Assessment and plans: Amber Wells is a 60 y.o. year old female PMH significant for scleroderma and desmoid of the back presenting today for follow-up. Patient with biopsy proven new desmoid of back. We spoke at length about management of new lesion. Namely options of medical treatment, observation, or resection. Given considerable intolerance of medications and multiple comorbidities, patient would prefer to have resection. She understands risks of recurrence or additional lesions. All risks/benefits discussed and consent signed. Solomon Quiros MD, MPH Surgical Oncology documented in this encounter Plan of Treatment Upcoming Encounters Date Type Department Care Team (Late st Contact Info) Description 10/07/2024 11:30 AM EST Office Visit Dermatology at [place] [address] [place] [address] Jo Ordaz MD [facility] [place] [address] 12/13/2024 11:30 AM EST [place] [address] 12/13/2024 1:00 PM EST Office [place] [address] Kiet Pardo MD [facility] [place] [address] documented as of this encounter Visit Diagnoses Diagnosis Desmoid fibromatosis Other benign neoplasm of connective and other soft tissue of unspecified site documented in this encounter Care Teams Reliner Relationship Specialty Start Date End Date Gorge Man MD PCP - [facility] Medicine 11/28/18 02/18/21 documented as of this encounter
--- OUTSIDE RECORDS SUMMARY | 2024-09-14 13:06 | XMS_ITS | Encounter Summary ---
Author Organization [facility] [place] [address] Care Team Providers Care Warehouse Coordinator Name Role Phone Gorge Man MD Primary Care Provider [phone] Encounter Details Date Type Department Care Team (Latest Contact Info) Description 06/01/2020 2:15 PM EDT Ancillary Procedure Radiology Library at [facility] [place] [address] [facility] [place] [address] Desmoid fibromatosis Social History Tobacco Use Types [...] Dermatology at [facility] [address] [place] [address] [facility] [place] [address] 12/13/2024 11:30 AM EST Appointment [place] [phone] 12/13/2024 1:00 PM EST Office [place] [address] [facility] [place] [address] documented as of this encounter Procedures Procedure Name Priority Date/Time Associated Diagnosis Comments REQUEST FOR 2ND READ MR UPPER EXTREMITY Routine 06/01/2020 2:05 PM EDT Desmoid fibromatosis documented in this encounter Results * Request for 2nd read MR Upper Extremity (06/01/2020 2:05 PM EDT) Anatomical Region Laterality Modality SO Impressions 06/01/2020 4:01 PM EDT impression: 1. ??Subcutaneous relatively well-circumscribed mass in right posterior chest wall, without characteristic signal pattern. Differential diagnosis include any soft tissue neoplasm, benign or malignant. 2. ??Consider MRI with and without contrast to further characterize if indicated. Thank you for letting us participate in the care of this patient. For questions regarding this report, please contact the number below. ? Electronically signed by: Debbie Briones [facility] ([phone]), at 06/01/2020 4:01 PM Narrative 06/01/2020 4:01 PM EDT EXAMINATION: REQUEST FOR 2ND READ MR UPPER EXTREMITY CLINICAL HISTORY: desmoid fibromatosis of skin; provider requesting second read; What Modality is the exam? MRI; Body Part (please add comments as necessary): right upper extremity; Sending Institution [facility]; Date of exam 20200512; I believe a reinterpretation of this exam may alter care of Patient. Yes, per ordering provider technique: Noncontrast images of the right posterior chest wall mass was acquired in all 3 planes. COMPARISON: None findings: Posterior subcutaneous chest wall mass Maximum lesion dimensions (in mm): 45 Width 9 ??AP 26 Length Craniocaudal location: The lesion is located at the level of the tip of the right scapula. Location of lesion in axial plane: The lesion is located in the subcutaneous fat, superficial to the right trapezius muscle. The medial border of the lesion is 40 mm right lateral to the spinous process. Neurovascular involvement: No nerves involvement. Bone invasion or periosteal reaction: Absent Imaging features: Morphology: Well-circumscribed subcutaneous mass and right posterior chest wall. T1-weighted: Slightly brighter than muscle T2-weighted : Slightly brighter than surrounding muscle Contrast enhancement: Not performed Muscles: The fat plane between the trapezius and the lesion is not effaced. Procedure Note Debbie Briones MD - 06/01/2020 EXAMINATION: REQUEST FOR 2ND READ MR UPPER EXTREMITY CLINICAL HISTORY: desmoid fibromatosis of skin; provider requesting secondread; What Modality is the exam? MRI; Body Part (please add comments asnecessary): right upper extremity; Sending Institution [facility]; Date ofexam 20200512; I believe a reinterpretation of this exam may alter care ofPatient. Yes, per ordering provider technique: Noncontrast images of the right posterior chest wall mass was acquired inall 3 planes. COMPARISON: None findings: Posterior subcutaneous chest wall mass Maximum lesion dimensions (in mm): 45 Width 9 AP 26 Length Craniocaudal location: The lesion is located at the level of the tip ofthe right scapula. Location of lesion in axial plane: The lesion is located in thesubcutaneous fat, superficial to the right trapezius muscle. The medial border of thelesion is 40 mm right lateral to the spinous process. Neurovascular involvement: No nerves involvement. Bone invasion or periosteal reaction: Absent Imaging features: Morphology: Well-circumscribed subcutaneous mass and right posterior chestwall. T1-weighted: Slightly brighter than muscle T2-weighted : Slightly brighter than surrounding muscle Contrast enhancement: Not performed Muscles: The fat plane between the trapezius and the lesion is noteffaced. IMPRESSION impression: 1. Subcutaneous relatively well-circumscribed mass in right posteriorchest wall, without characteristic signal pattern. Differential diagnosisinclude any soft tissue neoplasm, benign or malignant. 2. Consider MRI with and without contrast to further characterize ifindicated. Thank you for letting us participate in the care of this patient. Forquestions regarding this report, please contact the number below. Electronically signed by: Debbie Briones [facility]([phone]), at 06/01/2020 4:01 PM Solomon Quiros MD IMG OUTSIDE INTERPRE TATION ORDERABLES documented in this encounter Visit Diagnoses Diagnosis Desmoid fibromatosis Other benign neoplasm of connective and other soft tissue of unspecified site documented in this encounter Care Teams Warehouse Coordinator Relationship Specialty Start Date End Date Gorge Man MD PCP - [facility] Medicine 11/28/18 02/18/21 documented as of this encounter
--- OUTSIDE RECORDS SUMMARY | 2024-09-14 13:06 | XMS_ITS | Encounter Summary ---
Author Organization [facility] [place] [address] Care Team Providers Care Bomb Squad Commander Name Role Phone Gorge aMn MD Primary Care Provider [phone] Encounter Details Date Type Department Care Team (Latest Contact Info) Description 09/02/2020 8:00 AM EDT TH Visit (TeleHealth) [place] [address] Solomon Quiros MD [facility] [place] [place] [address] Lesion of skin of scalp Social History Tobacco Use Types Packs/Day Years [...] Progress Notes * Solomon Quiros MD - 09/02/2020 8:00 AM EDT I called Amber to discuss biopsy results of her scalp lesion. She reports the lump is still there, not painful and has not changed in size. We obtained pathology review here at [facility]: DIAGNOSIS CONSULTATION CASE Outside slide(s) labeled [id number], collection date 07/31/2020. Soft tissue, left occipital scalp mass, core needle biopsy: - Fibrovascular connective tissue with prominent chronic inflammation including ??abundant eosinophils (see Discussion). We discussed excision or observation for short interval. Ultimately decided that we would wait 3 weeks when patient has a scheduled appointment with me on Sep 23. If lesion is still present or concerning, then will discuss excision. Patient is in agreement. All questions/concerns addressed to her satisfaction. Solomon Quiros MD, MPH Surgical Oncology documented in this encounter Plan of Treatment Upcoming Encounters Date Type Department Care Team (Late st Contact Info) Description 10/07/2024 11:30 AM EST Office Visit Dermatology at [place] [address] [place] [address] Jo Ordaz MD [facility] [place] [address] 12/13/2024 11:30 AM EST Appointment [place] [address] 12/13/2024 1:00 PM EST Office [place] [address] Kiet Pardo MD [facility] [place] [address] documented as of this encounter Visit Diagnoses Diagnosis Lesion of skin of scalp documented in this encounter Care Teams Bomb Squad Commander Relationship Specialty Start Date End Date Gorge Man MD PCP - [facility] 11/28/18 02/18/21 documented as of this encounter
--- OUTSIDE RECORDS SUMMARY | 2024-09-14 13:06 | XMS_ITS | Encounter Summary ---
Author Organization [facility] [place] [address] Care Team Providers Care Drupal Developer Name Role Phone Gorge Man MD Primary Care Provider Encounter Details Date Type Department Care Team (Late st Contact Info) Description 12/09/2020 Orders [place] [address] Kiet Pardo MD [facility] [place] [address] Other osteoporosis, unspecified pathological fracture presence; Stage [...] 11:30 AM EST Office Visit Dermatology at [facility] [address] [place] [address] Jo Ordaz MD [facility] [place] [address] 12/13/2024 11:30 AM EST Appointment Pulmonology at [place] [phone] 12/13/2024 1:00 PM EST Office [place] [address] Kiet Pardo MD [facility] [place] [address] documented as of this encounter Results * (ABNORMAL) Creatinine (12/14/2020 2:03 PM EST) Creatinine 1.05 0.70 - 1.20 mg/dL [facility] Est Glomerular Filtration Rate 58(L) >=60 mL/min/1. 73 m?? [facility] Comment: This patient? s estimated glomerular filtration rate (eGFR) is between 58 mL/min/1.73 m2 (patients with less muscle mass) and 67 mL/min/1.73 m2 (patients with more muscle mass) as determined by the CKD-EPI equation. Assessment of eGFR is not appropriate when creatinine concentrations are rapidly changing. For clinical decisions where creatinine clearance will affect therapy, a 24-hour urine creatinine clearance may be advised. Assignment of CKD stage 1 ? 5 for patients with an eGFR near the transition point between stages may be based on clinical assessment of muscle mass and symptoms in addition to eGFR. Blood specimen (specimen) 12/14/2020 2:03 PM EST 12/14/2020 2:32 PM EST Narrative Resulting Agency Comment Spec In Lab Kiet Pardo MD CHEMISTRY ORDERABLES [facility] [place] [address] documented in this encounter Visit Diagnoses Diagnosis Other osteoporosis, unspecified pathological fracture presence Stage 3 chronic kidney disease, unspecified whether stage 3a or 3b CKD documented in this encounter Care Teams Drupal Developer Relationship Specialty Start Date End Date Gorge Man MD PCP - [facility] Medicine 11/28/18 02/18/21 documented as of this encounter
--- OUTSIDE RECORDS SUMMARY | 2024-09-14 13:06 | XMS_ITS | Encounter Summary ---
[place] [address] Care Team Providers Care Facility Supervisor Name Role Phone Gorge Man MD Primary Care Provider [phone] Reason for Referral * Diagnostic Test (Routine) - Closed Specialty Diagnoses / Procedures Referred By Wander hernandez Referred To Contact Radiology Diagnoses Desmoid fibromatosis Procedures MRI Thoracic Spine wwo Contrast Solomon Quiros MD [facility] [place] [address] [place] [address] Referral ID Status Reason Start Date Expiration Date V isits Requested Visits Authorized [id number] Closed Specialty Service Requested 08/31/2020 02/27/2021 1 1 Encounter Details Date Type Department Care Team (Late st Contact Info) Description 07/08/2020 11:30 AM EDT Office Visit [place] [address] Solomon Quiros MD [facility] [place] [address] Desmoid fibromatosis Social History Tobacco [...] Sign Reading Time Taken Comments Blood Pressure 122/61 07/08/2020 11:29 AM EDT Pulse 75 07/08/2020 11:29 AM EDT Temperature 36.7 ??C (98.1 ??F) 07/08/2020 11:29 AM E DT Respiratory Rate - - Oxygen Saturation - - Inhaled Oxygen Concentration - - Weight 62.6 kg (138 lb) 07/08/2020 11:29 AM EDT Height - - Body Mass Index 21.61 06/22/2020 6:51 AM EDT documented in this encounter Progress Notes * Solomon Quiros MD - 07/08/2020 11:30 AM EDT Jonna returns after resection of desmoid of the back. She tolerated the procedure well. Pain controlled. On exam, incision well healed. Pathology (06/22/2020): Right upper back, skin excision: - Fibromatosis, desmoid type, free of the margins in the examined planes of section - Incidental small ??neurofibroma and ??lentigines A/P: Patient with hx of desmoids presenting in follow-up after resection of back desmoid. Tolerating well. - RTC in 3month with repeat MRI - Call with additional concerns documented in this encounter Plan of Treatment Upcoming Encounters Date Type Department Care Team (Late st Contact Info) Description 10/07/2024 11:30 AM EST Office Visit Dermatology at [facility] [address] [place] [address] Jo Ordaz MD [facility] [place] [address] 12/13/2024 11:30 AM EST Appointment [place] [address] 12/13/2024 1:00 PM EST Office [place] [address] Kiet Pardo MD [facility] [address] [place] [phone] documented as of this encounter Results * MRI Thoracic Spine wwo Contrast (09/23/2020 9:25 AM EST) Anatomical Region Laterality Modality T-spine Magnetic Resonan ce Impressions 09/23/2020 5:23 PM EST Postsurgical changes in the right upper back with a thin postoperative fluid collection. Expected granulation tissue. No focal mass. Future exams of this area should be done with thin imaging dedicated to the level of intervention on both sagittal and axial sequences, rather than imaging the entire spine.. I have personally reviewed the image(s) and the resident's interpretation and agree with the findings, Oswaldo Villagran MD at 09/23/2020 5:23 PM Thank you for letting us participate in the care of this patient. For questions regarding this report, please contact the number below. ? 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 COMPARISON: MRI thoracic spine 02/06/2017. FINDINGS: Status post resection of desmoid tumor in the right upper back. Mild scarring and a thin postoperative fluid collection are present in the surgical bed, which is in the right paramidline subcutaneous tissues over the T6 level. No new or residual enhancing paraspinal mass is seen. Normal thoracic spine alignment. Vertebral body and disc space heights are maintained. No aggressive marrow lesions. No significant spinal canal or neural foraminal narrowing. Thoracic spinal cord is normal in signal and size. Prevertebral soft tissues and visualized paraspinal musculature are unremarkable. Procedure Note Oswaldo Villagran MD - 09/23/2020 EXAMINATION: MRI THORACIC SPINE WWO CONTRAST CLINICAL HISTORY: Systemic atrophy affecting SOCIAL WORK COORDINATOR Patient with history of Raynauds, Scleroderma and Large Desmoid tumor onher back requiring wide excision TECHNIQUE: MRI of the thoracic spine was performed before and after the intravenous administration of 12cc Dotarem. COMPARISON: MRI thoracic spine 02/06/2017. FINDINGS: Status post resection of desmoid tumor in the right upper back. Mildscarring and a thin postoperative fluid collection are present in the surgical bed,which is in the right paramidline subcutaneous tissues over the T6 level. No newor residual enhancing paraspinal mass is seen. Normal thoracic spine alignment. Vertebral body and disc space heightsare maintained. No aggressive marrow lesions. No significant spinal canal orneural foraminal narrowing. Thoracic spinal cord is normal in signal and size. Prevertebral soft tissues and visualized paraspinal musculature are unremarkable. IMPRESSION Postsurgical changes in the right upper back with a thin postoperativefluid collection. Expected granulation tissue. No focal mass. Future exams ofthis area should be done with thin imaging dedicated to the level ofintervention on both sagittal and axial sequences, rather than imaging the entirespine.. I have personally reviewed the image(s) and the resident's interpretationand agree with the findings, Oswaldo Villagran MD at 09/23/2020 5:23 PM Thank you for letting us participate in the care of this patient. Forquestions regarding this report, please contact the number below. Electronically signed by: Oswaldo Villagran MD, [facility]([phone]), at 09/23/2020 5:23 PM Solomon Quiros MD IMG MRI ORDERABLES documented in this encounter Visit Diagnoses Diagnosis Desmoid fibromatosis Other benign neoplasm of connective and other soft tissue of unspecified site Desmoid fibromatosis Other benign neoplasm of connective and other soft tissue of unspecified site documented in this encounter Care Teams Facility Supervisor Relationship Specialty Start Date End Date Gorge Man MD PCP - [facility] Medicine 11/28/18 02/18/21 documented as of this encounter
--- OUTSIDE RECORDS SUMMARY | 2024-09-14 13:06 | XMS_ITS | Encounter Summary ---
Author Organization [facility] [place] [address] Care Team Providers Care Belt Line Feeder Name Role Phone Gorge Man MD Primary Care Provider [phone] Encounter Details Date Type Department Care Team (Late st Contact Info) Description 06/09/2020 9:30 AM EDT TH Visit (TeleHealth) [place] [phone] Social History Tobacco Use Types Packs/Day Years [...] 11:30 AM EST Office Visit Dermatology at [facility] [address] [place] [address] Jo Ordaz MD [facility] [place] [address] 12/13/2024 11:30 AM EST Appointment [place] [address] 12/13/2024 1:00 PM EST Office [place] [address] [facility] RHEUMATOLOGY [place] [phone] documented as of this encounter Visit Diagnoses Not on filedocumented in this encounter Care Teams Belt Line Feeder Relationship Specialty Start Date End Date Gorge Man MD PCP - [facility] Medicine 11/28/18 02/18/21 documented as of this encounter
--- OUTSIDE RECORDS SUMMARY | 2024-09-14 13:06 | XMS_ITS | Encounter Summary ---
Author Organization [facility] Address [facility] [place] [address] Care Team Providers Care Registered Radiation Therapist Name Role Phone Gorge Man MD Primary Care Provider [phone] Reason for Visit * Reason Comments Follow-up bilateral Botox inje ctions * High Dollar Medication (Routine) - Closed Specialty Diagnoses / Procedures Referred By Wander hernandez Referred To Contact Plastic Surgery Diagnoses Raynaud's disease without gangrene Other specified mononeuropathies of bilateral upper limbs Procedures Auth Request for Medication TC ONABOTULINUMTOXINA, 1 UNIT, INJECTION DESTROY NERVE,EXTREM/TRUNK MUSCLES PRFM Andre Marroquin MD [facility] [address] Andre Marroquin MD [facility] [place] [address] Referral ID Status Reason Start Date Expiration Date V isits Requested Visits Authorized [id number] Closed Consult, Test & Treat 10/27/2017 09/18/2021 9 9 Encounter Details Date Type Department Care Team (Late st Contact Info) Description 09/23/2020 1:30 PM EST Office Visit Plastic Surgery at [facility] [address] [place] [address] Andre Marroquin MD [facility] [place] [address] Scleroderma Social History Tobacco Use [...] Progress Notes * Andre Marroquin MD - 09/23/2020 1:30 PM EST Plastic Surgery Follow Up Note Reason for visit: F/U status post procedure Date of surgery: 10/07/16 Procedure(s): Ulnar artery transfer into cephalic vein Complications: None reported HPI: Amber Wells returns today in f/u for additional botox injections into her hands. Overall, she is doing well, her symptoms are stable. Examination: Patient is alert, conversant, comfortable, ambulating Hands: stable tight fibrotic skin, no ulcers today, fingertips with 2-3 sec CR. Procedures: Patient arrived with EMMLA cream already applied. Alcohol and lidocaine gel skin prep 100 u of botox injected as follows: Botox: 10u in region of common digital artery at thumb, radial index, 2nd web, 3rd web, 4th web, or 50U per hand. ??Both hands treated for a total of 100 Units. Expiration date: 09/2021 Lot number: [id number] Impression: Amber Wells is a 60 y.o. 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 Please see the operative note for details. Today we proceeded with additional Botox injections to both hands, 50U each. Plan: Proceed with botox injections bilateral hands [...] EST Office Visit Dermatology at [facility] [address] [place] [address] Jo Ordaz MD [facility] [place] [address] 12/13/2024 11:30 AM EST Appointment [place] [address] 12/13/2024 1:00 PM EST Office [place] [address] Kiet Pardo MD [facility] [place] [address] documented as of this encounter Visit Diagnoses Diagnosis Scleroderma Systemic sclerosis documented in this encounter Care Teams Registered Radiation Therapist Relationship Specialty Start Date End Date Gorge Man MD [facility] 11/28/18 02/18/21 documented as of this encounter
--- OUTSIDE RECORDS SUMMARY | 2024-09-14 13:06 | XMS_ITS | Encounter Summary ---
[place] [address] Care Team Providers Care Salesperson Hosiery Name Role Phone Gorge Man MD Primary Care Provider [phone] Encounter Details Date Type Department Care Team (Late st Contact Info) Description 07/29/2020 Telephone [place] [phone] Katalina Hernandez, RN Social History Tobacco Use Types Packs/Day [...] encounter Miscellaneous Notes * Telephone Encounter - Katalina Ham RN - 07/29/2020 12:23 PM EDTSummary: Return Call to Patient Phoned patient to let her know that we will be ordering an US of the area of concern. Will send [facility] to [facility] and request that they send the results STAT read to Dr. Quiros so that we can get her in quickly for follow-up. Will need the documentation from [facility] before I can order the correct imaging. Patient is aware that I will be in contact with her by the end of day tomorrow at the latest to update her. * Telephone Encounter - Katalina Ham RN - 07/29/2020 10:39 AM EDTSummary: New Possible Desmoid Tumor Patient is a recent desmoid tumor resection of [place]. She phones today to report a new tumor in her head that is increasing in size in only one day. She reports that she has seen her local doctorand was instructed to be seen by Dr. Quiros immediately. She states that she can drive here in about 2.5-3 hours. Notified the nurses in the office as Dr. Quiros is in clinic today and sent him a page. Phoned patient and advised her to wait for instruction. She was seen by Dr. Graham at [facility] in [place], [place] this morning. documented in this encounter Plan of Treatment Upcoming Encounters Date Type Department Care Team (Late st Contact Info) Description 10/07/2024 11:30 AM EST Office Visit Dermatology at [address] [address] Jo Ordaz MD [facility] [place] [address] 12/13/2024 11:30 AM EST Appointment [place] [address] 12/13/2024 1:00 PM EST Office [place] [address] Kiet Pardo MD [facility] [place] [address] documented as of this encounter Visit Diagnoses Not on filedocumented in this encounter Care Teams Salesperson Hosiery Relationship Specialty Start Date End Date Gorge Man MD PCP - [facility] Medicine 11/28/18 02/18/21 documented as of this encounter
--- OUTSIDE RECORDS SUMMARY | 2024-09-14 13:06 | XMS_ITS | Encounter Summary ---
[place] [address] Care Team Providers Care Oil Field Laborer Name Role Phone Gorge Man MD Primary Care Provider [phone] Encounter Details Date Type Department Care Team (Late st Contact Info) Description 10/01/2020 Telephone [place] [phone] Karma Mejia Social History Tobacco Use Types Packs/Day Years [...] encounter Miscellaneous Notes * Telephone Encounter - Karma Mejia - 10/01/2020 9:26 AM EST Leyla from [facility] calls requesting PA for the pt's echo. Called [place] Medicaid to check need for PA as [employer] indicated PA waived at this time due to COVID 19. Confirmed with [place] Medicaid that we do not need a PA at this time. Ref# [id number] Informed Leyla of this and provided reference number to call documented in this encounter Plan of Treatment Upcoming Encounters Date Type Department Care Team (Late st Contact Info) Description 10/07/2024 11:30 AM EST Office Visit Dermatology at [facility] [address] [place] [address] Jo Ordaz MD [facility] [place] [address] 12/13/2024 11:30 AM EST Appointment [place] [address] 12/13/2024 1:00 PM EST Office [place] [phone] Kiet Pardo MD [facility] [place] [address] documented as of this encounter Visit Diagnoses Not on filedocumented in this encounter Care Teams Oil Field Laborer Relationship Specialty Start Date End Date oGrge Man MD PCP - [facility] Medicine 11/28/18 02/18/21 documented as of this encounter
--- OUTSIDE RECORDS SUMMARY | 2024-09-14 13:06 | XMS_ITS | Encounter Summary ---
[place] [address] Care Team Providers Care Can Sealer Name Role Phone Gorge Man MD Primary Care Provider [phone] Encounter Details Date Type Department Care Team (Late st Contact Info) Description 09/28/2020 Telephone [place] [phone] Spencer King Social History Tobacco Use Types Packs/Day Years [...] encounter Miscellaneous Notes * Telephone Encounter - Spencer King - 09/28/2020 12:38 PM EST LMOAM X1 to schedule 6 month f/u with Dr. Pardo. documented in this encounter Plan of Treatment Upcoming Encounters Date Type Department Care Team (Late st Contact Info) Description 10/07/2024 11:30 AM EST Office Visit Dermatology at [address] [place] [address] Jo Ordaz MD [facility] [place] [address] 12/13/2024 11:30 AM EST Appointment [place] [address] 12/13/2024 1:00 PM EST Office [place] [phone] Kiet Pardo MD [facility] [place] [address] documented as of this encounter Visit Diagnoses Not on filedocumented in this encounter Care Teams Can Sealer Relationship Specialty Start Date End Date Gorge Man MD PCP - [facility] Medicine 11/28/18 02/18/21 documented as of this encounter
--- OUTSIDE RECORDS SUMMARY | 2024-09-14 13:06 | XMS_ITS | Encounter Summary ---
Author Organization [facility] [place] [address] Care Team Providers Care Sanding Machine Buffer Name Role Phone Gorge Man MD Primary Care Provider [phone] Encounter Details Date Type Department Care Team (Late st Contact Info) Description 07/16/2020 Telephone [place] [phone] Gem Richey, RN Social History Tobacco Use Types Packs/Day [...] 11:30 AM EST Office Visit Dermatology at [facility] [address] [place] [address] Jo Ordaz MD [facility] [place] [address] 12/13/2024 11:30 AM EST Appoint[place] [address] 12/13/2024 1:00 PM EST Office [place] [address] Kiet Pardo MD [facility] RHEUMATOLOGY [place] [phone] documented as of this encounter Visit Diagnoses Not on filedocumented in this encounter Care Teams Sanding Machine Buffer Relationship Specialty Start Date End Date Gorge Man MD PCP - [facility] Medicine 11/28/18 02/18/21 documented as of this encounter
--- OUTSIDE RECORDS SUMMARY | 2024-09-14 13:06 | XMS_ITS | Encounter Summary ---
Author Organization [place] [address] Care Team Providers Care Grapple Crew Leader Name Role Phone Gorge Man MD Primary Care Provider [phone] Encounter Details Date Type Department Care Team (Latest Contact Info) Description 08/21/2020 2:17 PM EDT - 08/21/2020 11:59 PM EDT Hospital [place] [phone] Discharge Disposition: Home Social History Tobacco Use [...] Sig Dispensed Refills Start Date End Date glycerin, adult, Suppository daily as needed. 0 [...] inches onto the skin every 6 hours. sildenafiL (Revatio) 20 mg Tablet TAKE TWO TABLETS BY MOUTH EVERY MORNING, ONE TABLET BY MOUTH EVERY AFTERNOON AND TWO TABLETS BY MOUTH EVERY EVENING. 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 15 g 1 06/03/2020 03/24/2021 esomeprazole (NexIUM) 40 mg Capsule, Delayed Release(E.C.)Indication s:CKD (chronic kidney disease) stage 3, GFR 30-59 ml/min,Scleroderma Take 1 capsule by mouth 2 times daily. 180 capsule 3 02/14/2020 02/12/2021 lidocaine-prilocaine (EMLA) Cream Apply to affected areas as needed. 30 g 2 01/10/2020 01/15/2021 amLODIPine (Norvasc) 10 mg Tablet Take 1 tablet by mouth daily. 90 tablet 3 01/10/2020 10/14/2020 fosinopriL (MONOPRIL) 20 mg TabletIndications:Scler oderma,CKD (chronic kidney disease) stage 3, GFR 30-59 ml/min Take 1 tablet by mouth daily. 90 tablet 3 01/10/2020 12/25/2020 acetaminophen-codeine (TYLENOL #3) 300-30 mg Tablet Take 2 tablets by mouth every 6 hours as needed for Pain. Reported on 03/29/2017 60 tablet 12/11/2018 04/20/2022 LIDOCAINE 2 % Solution APPLY TO PAINFUL AREAS IF NEEDED 0 12/12/2016 03/24/2021 documented as of this encounter Plan of Treatment Upcoming Encounters Date Type Department Care Team (Late st Contact Info) Description 10/07/2024 11:30 AM EST Office Visit Dermatology at [facility] [address] [place] [address] [facility] [place] [address] 12/13/2024 11:30 AM EST Appointment [place] [phone] 12/13/2024 1:00 PM EST Office [place] [address] [facility] [place] [place] [address] documented as of this encounter Procedures Procedure Name Priority Date/Time Associated Diagnosis Comments SURGICAL PATHOLOGY REPORT Routine 08/21/2020 2:17 PM EDT documented in this encounter Results * Surgical Pathology Report (08/21/2020 2:17 PM EDT) Final Diagnosis [id number] ? Location: [facility] The signing pathologist has (i) examined the relevant preparation(s) for the specimen(s) and (ii) rendered or confirmed the diagnosis(es). . ?Surgical Pathology DIAGNOSIS CONSULTATION CASE Outside slide(s) labeled [id number], collection date 07/31/2020. Soft tissue, left occipital scalp mass, core needle biopsy: - Fibrovascular connective tissue with prominent chronic inflammation including abundant eosinophils (see Discussion). Electronically signed by: ??Aure Gnuter MD Verified: ??08/25/2020 ?Pathologist Performed at: ??-[facility] [place] Dept. of [place]ology, [place], [place] DISCUSSION Sections of the core biopsy show variably hyalinized fibrovascular connective tissue with a multifocally dense chronic inflammatory infiltrate. The inflammation is composed predominantly of small lymphocytes and abundant eosinophils with scattered histiocytes. The histopathologic features are not specific. The differential diagnosis includes but is not limited to epithelioid hemangioma (angiolymphoid hyperplasia with eosinophilia type) as well as a pronounced dermal hypersensitivity reaction such as to an arthropod insult. A lymphoproliferative or histiocytic disorder was also considered, though diagnostic features of either are not identified in the current biopsy. There is no evidence of fibromatosis. Clinical and radiographic correlation is recommended, with consideration of additional tissue sampling if clinically indicated. ADDITIONAL STUDIES Review of the provided stains shows that scattered cells are positive for CD1a and CD68 by immunohistochemistry. Rare cells stain with S100 protein. ERG highlights plump endothelial cells within vessels in scattered foci of increased vascularity. Stains for SMA, ALK, and IgG4 are negative. Histochemical stains for AFB and GMS are negative for microorganisms. SPECIMEN(S) SUBMITTED CONSULTATION CASE A - 12 slide(s) labeled [id number], collection date 07/31/2020. [id number] Report to: [facility] Surgical Pathology Department [facility], [facility], [facility], [address] Floor [address] [place] [address] ??[id number] CLINICAL INFORMATION H/o desmoid tumors; new rapidly growing L occipital scalp mass . SPECIMEN PROCESSING [facility] ([facility]) pathology slide(s) are reviewed. ??Refer to Diagnosis and Specimen Submitted for specific case information. For the full text of the [facility] report please refer to Non-DH Documentation Pathology in the electronic health record (eDH). 08/25/2020 5:16 PM EDT [facility] Consult Case 08/21/2020 2:17 PM EDT 08/21/2020 2:17 PM EDT Solomon Quiros MD PATHOLOGY/CYTOLOGY O RDERABLES [facility] [place] [address] documented in this encounter Visit Diagnoses Not on filedocumented in this encounter Care Teams Grapple Crew Leader Relationship Specialty Start Date End Date Gorge Man MD PCP - [facility] Medicine 11/28/18 02/18/21 documented as of this encounter
--- OUTSIDE RECORDS SUMMARY | 2024-09-14 13:06 | XMS_ITS | Encounter Summary ---
[place] [address] Care Team Providers Care Redipper Name Role Phone Gorge Man MD Primary Care Provider [phone] Encounter Details Date Type Department Care Team (Late st Contact Info) Description 06/09/2020 9:15 AM EDT TH Visit (TeleHealth) [place] [id number] Social History Tobacco Use Types Packs/Day Years [...] Pressure - - Pulse - - Temperature - - Respiratory Rate - - Oxygen Saturation - - Inhaled Oxygen Concentration - - Weight 58.1 kg (128 lb) 06/09/2020 9:00 AM EDT Height 170.2 cm (5' 7) 06/09/2020 9:00 AM EDT Body Mass Index 20.05 06/09/2020 9:00 AM EDT documented in this encounter Progress Notes * Kellee Villatoro RN - 06/09/2020 9:15 AM EDT PAT questionnaire reviewed with patient while in Pre Admission testing. Pre- operative instruction booklet reviewed. Patient verbalizes a good understanding of all information reviewed. PLAN: Testing: None, pt to have phone consult with Joseline Palmer APRN today Special medication instructions: Procedure date: 06-22-20 Dr Araiza documented in this encounter Plan of Treatment Upcoming Encounters Date Type Department Care Team (Late st Contact Info) Description 10/07/2024 11:30 AM EST Office Visit Dermatology at [address] [address] [facility] [place] [address] 12/13/2024 11:30 AM EST Appointment [place] [address] 12/13/2024 1:00 PM EST Office [place] [phone] [facility] [place] [address] documented as of this encounter Visit Diagnoses Not on filedocumented in this encounter Care Teams Redipper Relationship Specialty Start Date End Date Gorge Man MD PCP - [facility] Medicine 11/28/18 02/18/21 documented as of this encounter
--- OUTSIDE RECORDS SUMMARY | 2024-09-14 13:06 | XMS_ITS | Encounter Summary ---
Author Organization [facility] [place] [address] Care Team Providers Care Electronics Warfare Technician Name Role Phone Gorge Man MD Primary Care Provider [phone] Reason for Visit * Reason Onset Date Comments Medication Refill 07/31/2020 Encounter Details Date Type Department Care Team (Late st Contact Info) Description 07/31/2020 Refill [place] [address] Antoine Jung, RN Social History Tobacco Use Types Packs/Day [...] Visit Dermatology at [facility] [address] [place] [address] Jo Ordaz MD [facility] [place] [address] 12/13/2024 11:30 AM EST Appointment [place] [phone] 12/13/2024 1:00 PM EST Office [place] [address] Kiet Pardo MD [facility] [place] [address] documented as of this encounter Visit Diagnoses Not on filedocumented in this encounter Care Teams Electronics Warfare Technician Relationship Specialty Start Date End Date Gorge Man MD PCP - [facility] Medicine 11/28/18 02/18/21 documented as of this encounter
--- OUTSIDE RECORDS SUMMARY | 2024-09-14 13:06 | XMS_ITS | Encounter Summary ---
Author Organization [facility] [place] [id number] Care Team Providers Care Board Filler Name Role Phone Gorge Man MD Primary Care Provider [phone] Encounter Details Date Type Department Care Team (Late st Contact Info) Description 09/25/2020 1:00 PM EST Office [place] [address] Kiet Pardo MD [facility] [address] Ricardo Doshi MD [facility] [place] [address] Scleroderma Social History Tobacco Use Types Packs/Day [...] Sign Reading Time Taken Comments Blood Pressure 118/62 09/25/2020 12:47 PM EST Pulse 85 09/25/2020 12:47 PM EST Temperature 37.1 ??C (98.8 ??F) 09/25/2020 12:[address] Respiratory Rate - - Oxygen Saturation 100% 09/25/2020 12:47 PM EST Inhaled Oxygen Concentration - - Weight 65.3 kg (144 lb) 09/25/2020 12:47 PM EST Height 170.2 cm (5' 7.01) 09/25/2020 12:[address] Body Mass Index 22.55 09/25/2020 12:47 PM EST documented in this encounter Patient Instructions * Patient Instructions* Ricardo Doshi MD - 09/25/2020 1:00 PM EST daily calcium citrate [citracal over the counter] and vitamin D supplementation. documented in this encounter Progress Notes * Ricardo Doshi MD - 09/25/2020 1:00 PM EST Rheumatology Outpatient Follow-up Note Reason for Consult: Amber Wells is a 60 y.o. female who we are seeing at the request of Gorge Man for evaluation of SSc. HPI: Patient is a 60 year old F who presents for a follow-up for SSc. #Rheumatological History 1. Diffuse systemic sclerosis. (A) Initially diagnosed [place] [address] Placido Lora at [facility] in [place]. Then followed by Dr. Peyton Hinton in [facility] in [place] in 04/2010. . Echo and PFTs 12/09/11 both normal. (B) Treatment in the past has included intermittent penicillamine and methotrexate, however, she has been off immunosuppressive therapy since approximately 2005. (C) Hospitalization in 03/2010 in [place] with scleroderma hypertensive renal crisis, on dialysis for two months ending in mid 06/2010. (D) One visit with Dr. Ten Gonzalez in [place], [place] in late 2009. 2. Chronic kidney disease, stage III, with associated anemia. Currently followed by Dr. Sumit Sawyer in nephrology. 3. Raynaud's is significant- had b/l ulnar artery transfer into cephalic vein. botox injections with no significant improvement. 4. GERD. -Ulnar artery transfer into cephalic vein in 09/2016 -Following with Dr. Jelani Snow Surgery. #Interval History -Overall doing well, no acute complaints -Last on 09/23/20 botox injections with Plastic surgery, she finds this helpful -Right back desmoid resection in June 2020 -Gets ulcers [new once a year, recurrent 2-3 times a year] -Ulcers are bothersome for her -She last used Abx in Spring -Using sildenafil three times daily, still needing hand warmers -GERD well controlled with Nexium 40 mg BID. Has Joseph's esophagus and getting surveillance endoscopies. -On Imodium daily for constipation -On lisinopril daily for HTN. BP 120/80. -No respiratory complaints -No recent infections ROS: No fevers, chills, chest pain, SOB. Medical History: Past Medical History: Diagnosis Date ??? Anemia [...] dialysis for 2 months in 2009 ??? 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 Scleroderma 1991 Diffuse scleroderma. Surgical History: Past Surgical History: Procedure Laterality Date ??? CREATED BY INTERFACE Entered not Verified Procedure Date: 01/27/2011 ??? CREATED BY INTERFACE No History of Operative Procedures Procedure Date: 01/27/2011 ??? DILATION AND CURETTAGE OF UTERUS ??? PRO APPLY FOREARM SPLINT, STATIC Left 04/08/2016 SPLINT APPLICATION, SHORT ARM performed by Andre Marroquin MD at [facility] MAIN OR ??? PRO COLONOSCOPY, DIAGNOSTIC N/A 01/31/2019 COLONOSCOPY, DIAGNOSTIC performed by Andrew Berger MD at [facility] ENDOSCOPY ??? PRO ENDOSCOPIC US EXAM, ESOPH N/A 03/29/2016 UPPER EUS- ENDOSCOPIC ULTRASOUND performed by Darryl Ash MD at [facility] ENDOSCOPY ??? PRO RAD RESECT/TUMOR, SOFT TISSUE BACK/FLANK, 5CM OR GREATER Right 06/22/2020 RADICAL RESECTION TUMOR BACK OR FLANK; 5 CM OR GREATER (WRVU 22.55) performed by Solomon Quiros MD at [facility] OSC ??? PRO REBL VES VEIN GRFT, UP EXTREM Left 04/08/2016 REPAIR BLOOD VESSEL WITH VEIN GRAFT, UPPER EXTREMITY performed by Andre Marroquin MD at [facility] MAIN OR ??? PRO UPPER GI ENDOSCOPY, BIOPSY N/A 03/29/2016 UPPER GASTROINTESTINAL ENDOSCOPY,WITH BIOPSY SINGLE OR MULTIPLE performed by Darryl Ash MD at [facility] ENDOSCOPY ??? PRO UPPER GI ENDOSCOPY, BIOPSY N/A 01/10/2018 EGD WITH BIOPSY (WRVU 2.49) performed by Andrew Berger MD at [facility] ENDOSCOPY ??? PRO VEIN BYPASS GRAFT, BRACHIAL ULNAR OR RADIAL Right 10/07/2016 @BYPASS GRAFT, BRACHIAL-ULNAR OR RADIAL W\VEIN (VASC) performed by Andre Marroquin MD at [facility] MAIN OR ??? 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 TUMOR REMOVAL desmoid tumor from thoracic spine Family Hx: Family History Problem Relation Age of Onset ??? Glaucoma Brother ??? Diabetes Maternal Grandmother ??? Alcohol Use Disorder Father He was getting drunk 2 or 3 nights a week but never missed a day work ??? Cancer Neg Hx No family history of RA, SLE, OA, Sjogren's, Scleroderma, or gout Social History: Social History Socioeconomic History ??? [...] since quittin.5 ??? Smokeless tobacco: Never Used Substance and [...] file Gets together: Not on file Attends adventist service: Not on file Active member of [...] Social History Narrative ??? Not on file Medications: Current Outpatient Medications on File Prior to Visit Medication Sig Dispense Refill ??? sildenafiL (Revatio) 20 mg Tablet TAKE TWO TABLETS BY MOUTH EVERY MORNING, ONE TABLET BY MOUTH EVERY AFTERNOON AND TWO TABLETS BY MOUTH EVERY EVENING. 150 tablet 5 ??? esomeprazole (NexIUM) 40 mg Capsule, Delayed Release(E.C.) Take 1 capsule by mouth 2 times daily. 180 capsule 3 ??? lidocaine-prilocaine (EMLA) Cream Apply to affected areas as needed. 30 g 2 ??? amLODIPine (Norvasc) 10 mg Tablet Take 1 tablet by mouth daily. 90 tablet 3 ??? fosinopriL (MONOPRIL) 20 mg Tablet Take 1 tablet by mouth daily. 90 tablet 3 ??? acetaminophen-codeine (TYLENOL #3) 300-30 mg Tablet [...] onto the skin every 6 hours. ??? augmented betamethasone dipropionate (DIPROLENE-AF) 0.05 % Ointment Apply topically to affectedarea on the right ear twice daily for 2 weeks, then only on weekends. (Patient not taking: Reportedon 09/25/2020) 15 g 1 No current facility-administered medications on file prior to visit. Allergies: Allergies Allergen Reactions ??? Other [Unclassified Drug] Lobster--weird sensation Physical Examination: BP 118/62 Pulse 85 Temp 37.1 ??C (98.8 ??F) (Temporal) Ht 170.2 cm (5' 7.01) Wt 65.3 kg (144 lb) LMP 11/27/2014 SpO2 100% BMI 22.55 kg/m?? General: Well appearing F, NAD HEENT: Wearing mask, EOMs intact Neck: Supple Cardiovascular: RRR, no m/r/g, normal S1/S2 Lungs: CTA b/l no w/r/r Abdomen: Soft, nontender, nondistended Back: Nontender over the spine Neuro: Alert and oriented x3. Cranial nerves II through XII grossly intact. Strength 5/5 throughout, Sensation to light touch is grossly normal throughout. Skin: mRSS = 2+2 in lower legs, but otherwise 0. + flexion contractures in her fingers. Incomplete fist b/l. No ischemic digital ulcers today, but has a traumatic ulcer at flexion contracture dorsal surface. Tip of R ear and L elbow extensor surface with calcinosis. Extremities: Shoulders: FROM, non-tender to palpation Elbows:FROM Wrists: FROM, no swelling, non-tender Hands: No synovitis, no MCP compression tenderness, full claw and fist Hips: FROM, no tenderness Knees: FROM, no effusion, no tenderness Ankles: FROM, non-tender, no effusion Feet: no MTP compression tenderness Laboratory Data: 09/2019 -CBC wnl -Cr 1.13 -vit D 33 Studies: Pathology (06/22/2020): Right upper back, skin excision: - Fibromatosis, desmoid type, free of the margins in the examined planes of section - Incidental small ??neurofibroma and ??lentigines Assessment: Patient is a 60 year old F who presents for a follow-up for diffuse SSc. Her course hasbeen complicated by diffuse skin thickening causing flexion contractures, scleroderma renal crisis briefly on dialysis x 2 months and now on ACEi with CKD, GERD complicated by Joseph's esophagus, and and Raynaud's phenomenon being treated with Botox injections. She is overall doing well. She has no new complaints today. No cardiopulmonary complaints, no arthropathy, and no changes in renal function. Recommendations: -Continue sildenafil TID, encouraged warming interventions. Nitro paste as needed. -Continue following with Plastic surgery for Botox injection. -Advised to reach out to Rheum clinic in case of ulcer complicated by infection -Continue PPI for GERD, continue following with GI for Barett's esophagus -Will order cardiac echo and PFTs for annual screening, sending to [facility] per patient's request -Will be following with nephrology at the end of this month. Continue ACEi given history of Scl-renal crisis. -Recommend patient get a DEXA scan since she is on chronic PPI. Recommend taking daily calcium citrate and vitamin D supplementation. -Follow-up with Dr. Pardo in 6 months The patient was seen and discussed with Dr. Char Doshi MD Rheumatology Fellow CC: Gorge Man MD documented in this encounter Plan of Treatment Upcoming Encounters Date Type Department Care Team (Late st Contact Info) Description 10/07/2024 11:30 AM EST Office Visit Dermatology at [facility] [address] [place] [address] Jo Ordaz MD [facility] [place] [address] 12/13/2024 11:30 AM EST Appointment [place] [phone] 12/13/2024 1:00 PM EST Office [place] [phone] Kiet Pardo MD [facility] [place] [address] documented as of this encounter Visit Diagnoses Diagnosis Scleroderma Systemic sclerosis documented in this encounter Care Teams Board Filler Relationship Specialty Start Date End Date Gorge Man MD PCP - General [facility] Medicine 11/28/18 02/18/21 documented as of this encounter
--- OUTSIDE RECORDS SUMMARY | 2024-09-14 13:06 | XMS_ITS | Encounter Summary ---
Author Organization [facility] [place] [address] Care Team Providers Care Prison Classification Counselor Name Role Phone Gorge Man MD Primary Care Provider [phone] Encounter Details Date Type Department Care Team (Late st Contact Info) Description 08/14/2020 External Results [place] [address] Social History Tobacco Use Types Packs/Day Years [...] Dermatology at [facility] [address] [place] [address] Jo Ordaz MD [facility] [place] [address] 12/13/2024 11:30 AM EST Appoint[place] [address] 12/13/2024 1:00 PM EST Office [place] [address] Kiet Pardo MD [facility] RHEUMATOLOGY [place] [id number] documented as of this encounter Procedures Procedure Name Priority Date/Time Associated Diagnosis Comments LAB SCAN Routine 07/31/2020 documented in this encounter Results * Scan Doc: Lab (07/31/2020) Historical Provider MD MEDIA MGR SCAN EX T ORDR/RSLT documented in this encounter Visit Diagnoses Not on filedocumented in this encounter Care Teams Prison Classification Counselor Relationship Specialty Start Date End Date Gorge Man MD PCP - [facility] Medicine 11/28/18 02/18/21 documented as of this encounter
--- OUTSIDE RECORDS SUMMARY | 2024-09-14 13:06 | XMS_ITS | Encounter Summary ---
Author Organization [facility] [place] [address] Care Team Providers Care Ink Printer Name Role Phone Gorge Man MD Primary Care Provider [phone] Encounter Details Date Type Department Care Team (Late st Contact Info) Description 07/31/2020 Ancillary Procedure Radiology Library at [facility] [place] [address] Gorge Man MD [address] [place] [address] [place] [address] Social History Tobacco Use Types Packs/Day Years [...] EST Office Visit Dermatology at [facility] [address] [place] [address] Jo Ordaz MD [facility] [place] [address] 12/13/2024 11:30 AM EST Appointment [place] [phone] 12/13/2024 1:00 PM EST Office [place] [phone] Kiet Pardo MD [facility] [place] [address] documented as of this encounter Procedures Procedure Name Priority Date/Time Associated Diagnosis Comments FILM LIBRARY STORAGE ONLY ULTRASOUND STUDY Routine 07/31/2020 12:00 AM EDT documented in this encounter Results * Film Library- Storage Only Ultrasound Study (07/31/2020 12:00 AM EDT) Narrative [facility] - 08/10/2020 12:44 PM EDT This exam is auto-finalizing. It's purpose is for storage only. Gorge Man MD IMG FILM LIBRARY ORD ERABLES [place], [place] documented in this encounter Visit Diagnoses Not on filedocumented in this encounter Care Teams Ink Printer Relationship Specialty Start Date End Date Gorge Man MD PCP - General [facility] Medicine 11/28/18 02/18/21 documented as of this encounter
--- OUTSIDE RECORDS SUMMARY | 2024-09-14 13:06 | XMS_ITS | Encounter Summary ---
[place] [address] Care Team Providers Care Mate Fishing Vessel Name Role Phone Gorge Man MD Primary Care Provider [phone] Reason for Visit * Auth/Cert Specialty Diagnoses / Procedures Referred By Wander hernandez Referred To Contact Diagnoses DESMOID MASS OF RIGHT BACK Procedures PRO RAD RESEC SOFT TISS BACK/FLANK RADICAL RESECTION TUMOR BACK, <5 CM (WRVU 15.72) Referral ID Status Reason Start Date Expiration Date Visits Re quested Visits Authorized [id number] 1 1 Encounter Details Date Type Department Care Team (Late st Contact Info) Description 06/22/2020 7:31 AM EDT Anesthesia Event [place] [address] Chelsie Carrera [facility] [place] [address] Joseline Palmer, HOME APPLIANCE WASHING MACHINE MECHANIC [address] [facility] 3B-1 [place] [address] Anesthesia Record Procedure Summary Procedure Name Responsible Anesthesiologist Anesthesia Start Time Anesthesia Stop Time RADICAL RESECTION TUMOR BACK OR FLANK; 5 CM OR GREATER (WRVU 22.55) (Right: Back) Chelsie Carrera DO 06/22/20 0731 06/22/20 0935 Events Date Time Event Comment 06/22/2020 0725 0731 Start 0733 AN Verify 0733 An Start Data 0736 An Induction 0738 An Intubation 0741 Anesthesia Ready 09 Extubation/LMA Out 09 an stop data 0933 Recovery or ICU Handoff Lorri ent care was transferred to the destination unit staff after review of the patient's medical history, current anesthetic/surgical status and plan, according to the Provider Handoff Checklist. 0935 Stop Meds Name Total Midazolam 2 mg fentaNYL 50 mcg IV Lidocaine 60 mg Propofol 200 mg Rocuronium 20 mg Ondansetron 8 mg Dexamethasone 8 mg ceFAZolin (Ancef) 2g in dextrose 5% 100 mL 2 g Propofol INF 203.45 mg Sugammadex 130 mg lactated ringers infusion 0 mL * Agents Name O2 Air N2O Sevoflurane (et) * Blood No blood administrations on file. Lines, Drains, and Airways Type Details Placement Removal Incision arm; 07/18/22 (LDA cleanup utility RA#[id number]); 1715 (LDA cleanup utility RA#[id number]) 04/08/16 1242 by 07/18/22 1715 by Dena Armendariz Incision 10/07/16; 1500; arm; 07/18/22 (LDA cleanup utility RA#[id number]); 1715 (LDA cleanup utility RA#[id number]) 10/07/16 1500 by Jessica Cisneros RN 07/18/22 1715 by Dena Armendariz (RETIRED) Peripheral IV Line - Single Lumen 06/22/20; 0716; cephalic vein (lateral side of arm), right; [id number] catheter system; 22 gauge; Jbennett; intradermal injection; 0; 06/22/20; 1024 06/22/20 0716 by Ninoska Kim RN 06/22/20 1024 by Lisette Estrella RN ETT Mask Ventilation: Ea sy (1); ETT Type: Cuffed, Oral; ETT Size: 7 mm; Indirect: Video; Notes: Asleep, Pre-O2, Cricoid Pressure, Stylette; Attempts: 1; Laryngoscopy Grade: 1; ETT Placement Verified By: Auscultation, Capnometry, Visual; Secured at Teeth: 22 cm; Inserted by: HW; Removal Date: 06/22/20; Removal Time: 92606/22/20 0743 by Rachel Sierra CRNA 06/22/20 0927 by Rachel Sierra, CLINICAL NURSING MANAGER Incision 06/22/20; 0808; back ; 07/18/22 (LDA [...] OR Notes * Anesthesia Postprocedure Evaluation - Chelsie Carrera DO - 06/22/2020 1:57 PM EDT Department of Anesthesiology Post-procedure Note Patient: Amber Wells Procedure Summary Date: 06/22/20 Room / Location: [address] Anesthesia Start: 730 Anesthesia Stop: 934 Procedure: RADICAL RESECTION TUMOR BACK OR FLANK; 5 CM OR GREATER (WRVU 22.55) (Right Back) Diagnosis: (DESMOID MASS OF RIGHT BACK) Surgeon: Solomon Quiros MD Responsible Provider: Chelsie Carrera DO Anesthesia Type: general ASA Status: 3 All Anesthesia Providers: Anesthesiologist: Chelsie Carrera DO CLINICAL NURSING MANAGER: Rachel Sierra H, EUSEBIO Vitals Value Taken Time BP 150/77 06/22/20 1000 Temp 36.1 ??C (97 ??F) 06/22/20 0930 Pulse 69 06/22/20 1014 Resp 20 06/22/20 0930 SpO2 98 % 06/22/20 1014 Pain Level Vitals shown include unvalidated device data. Patient Location: PACU/[facility] Level of Consciousness: Awake and Alert Pain Management: Satisfactory Analgesia PONV: None Cardiovascular Status: At Baseline and Hemodynamically Stable Respiratory Status: At Baseline and Room Air Postoperative Fluid Status: Intravascular EUvolemia Possible Anesthetic Complications: NONE apparent at time of evaluation Final Primary Anesthesia Type: General (The anesthetic type performed was the same as planned.) Comments: Chelsie Carrera DO * Anesthesia Preprocedure Evaluation - Chelsie Carrera DO - 06/09/2020 10:04 AM EDT Pre-Anesthesia Evaluation for: Amber Wells a 60 y.o. female. Procedure(s): HARVEST SAPHENOUS VEIN EXCISION VEIN FROM HAND Patient Active Problem List Diagnosis ??? Joseph's esophagus ??? Raynaud's disease without [...] crisis Had tunnelled dialysis catheter removed at [facility] in June 2010 ??? [...] dialysis for 2 months in 2009 ??? 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 Raynaud's syndrome 1990 ??? Scleroderma 1990 Diffuse scleroderma. Past Surgical History: Procedure Laterality Date ??? CREATED BY INTERFACE Entered not Verified Procedure Date: 01/27/2011 ??? CREATED BY INTERFACE No History of Operative Procedures Procedure Date: 01/27/2011 ??? DILATION AND CURETTAGE OF UTERUS ??? PRO APPLY FOREARM SPLINT, STATIC Left 04/08/2016 SPLINT APPLICATION, SHORT ARM performed by Andre Marroquin MD at [facility] MAIN OR ??? PRO COLONOSCOPY, DIAGNOSTIC N/A 01/31/2019 COLONOSCOPY, DIAGNOSTIC performed by Andrew Berger MD at [facility] ENDOSCOPY ??? PRO ENDOSCOPIC US EXAM, ESOPH N/A 03/29/2016 UPPER EUS- ENDOSCOPIC ULTRASOUND performed by Darryl Ash MD at [facility] ENDOSCOPY ??? PRO REBL VES VEIN GRFT, UP EXTREM Left 04/08/2016 REPAIR BLOOD VESSEL WITH VEIN GRAFT, UPPER EXTREMITY performed by Andre Marroquin MD at [facility] MAIN OR ??? PRO UPPER GI ENDOSCOPY, BIOPSY N/A 03/29/2016 UPPER GASTROINTESTINAL ENDOSCOPY,WITH BIOPSY SINGLE OR MULTIPLE performed by Darryl Ash MD at [facility] ENDOSCOPY ??? PRO UPPER GI ENDOSCOPY, BIOPSY N/A 01/10/2018 EGD WITH BIOPSY (WRVU 2.49) performed by Andrew Berger MD at [facility] ENDOSCOPY ??? PRO VEIN BYPASS GRAFT, BRACHIAL ULNAR OR RADIAL Right 10/07/2016 @BYPASS GRAFT, BRACHIAL-ULNAR OR RADIAL W\VEIN (VASC) performed by Andre Marroquin MD at [facility] MAIN OR ??? 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 Smoking status: Former Smoker Packs/day: 1.00 Years: 10.00 Pack years: 10.00 Types: Cigarettes Quit date: 03/30/1988 Years since quittin.2 ??? Smokeless tobacco: Never Used Substance Use Topics ??? Alcohol use: Yes Alcohol/week: 1.0 standard drinks Types: 1 Glasses of wine per week Comment: once a week Social History Substance and Sexual Activity Drug Use No Allergies Allergen Reactions ??? Other [Unclassified Drug] Lobster--weird sensation Medications: MAR and/or home medications have been reviewed. Physical Exam: No data found. There is no height or weight on file to calculate BMI. Airway Assessment: Mallampati: I TM distance: >3 FB Neck ROM: full Cardiovascular Assessment: Rhythm: regular Rate: normal Pulmonary Assessment: breath sounds clear to auscultation Dental Assessment: - normal exam Misc Assessment: Patient is wearing No contact(s). IV access: Peripheral line Anesthesia Plan: ASA 3 general, with a(n) intravenous induction 56 y/o F with scleroderma here today for saphenous vein harvest with excision hand vein. PMH: Raynaud phenomenon Barett's esoph Desmoid fibromatosis Anemia CKD stage 4 (with prior need for HD) Scleroderma Former smoker Arrhythmia at times NKDA Exercise tolerance > 4 mets 03/31/16 TTE: EF 65% normal valves All labs reviewed. Notable labs Hgb 13.6 Cr 1.27 Patient appropriately NPO Plan: GA IV access Standard ASA monitors Risks and benefits discussed. All of patient's questions answered. Patient understands and agrees to proceed as planned. Region - Other Informed Consent: Anesthetic plan and risks discussed with patient. Plan discussed with resident. PAT Staff Note Pre-Anesthesia Evaluation for: Amber Wells a 60 y.o. female. Procedure(s): RADICAL RESECTION TUMOR BACK, <5 CM (WRVU 15.72) Patient Active Problem List Diagnosis ??? Joseph's esophagus ??? Raynaud's disease without [...] crisis Had tunnelled dialysis catheter removed at [facility] in June 2010 ??? Scleroderma Past Medical History: Diagnosis Date ??? Anemia associated with chronic renal failure ??? Anemia in CKD (chronic kidney disease) ??? Anemia of chronic renal failure, stage 4 (severe) ??? Arthritis ??? Bowel disease Chronique constipation, Joseph syndrome eosophagus ??? Chronic kidney disease 2010 Dialysis AprilJun 2010, producing hemoglobin since Oct. [...] dialysis for 2 months in 2009 ??? 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 PRO COLONOSCOPY, DIAGNOSTIC N/A 01/31/2019 COLONOSCOPY, DIAGNOSTIC performed by Andrew Berger MD at [facility] ENDOSCOPY ??? PRO ENDOSCOPIC US EXAM, ESOPH N/A 03/29/2016 UPPER EUS- ENDOSCOPIC ULTRASOUND performed by Darryl Ash MD at [facility] ENDOSCOPY ??? PRO REBL VES VEIN GRFT, UP EXTREM Left 04/08/2016 REPAIR BLOOD VESSEL WITH VEIN GRAFT, UPPER EXTREMITY performed by Ander Marroquin MD at [facility] MAIN OR ??? PRO UPPER GI ENDOSCOPY, BIOPSY N/A 03/29/2016 UPPER GASTROINTESTINAL ENDOSCOPY,WITH BIOPSY SINGLE OR MULTIPLE performed by Darryl Ash MD at [facility] ENDOSCOPY ??? PRO UPPER GI ENDOSCOPY, BIOPSY N/A 01/10/2018 EGD WITH BIOPSY (WRVU 2.49) performed by Andrew Berger MD at [facility] ENDOSCOPY ??? PRO VEIN BYPASS GRAFT, BRACHIAL ULNAR OR RADIAL Right 10/07/2016 @BYPASS GRAFT, BRACHIAL-ULNAR OR RADIAL W\VEIN (VASC) performed by Andre Marroquin MD at [facility] MAIN OR ??? 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 Smoking status: Former Smoker Packs/day: 1.00 Years: 10.00 Pack years: 10.00 Types: Cigarettes Last attempt to quit: 03/30/1988 Years since quittin.2 ??? Smokeless tobacco: Never Used Substance Use Topics ??? Alcohol use: Yes Alcohol/week: 1.0 standard drinks Types: 1 Glasses of wine per week Comment: once a week Social History Substance and Sexual Activity Drug Use No Allergies Allergen Reactions ??? Other [Unclassified Drug] Lobster--weird sensation Medications: MAR and/or home medications have been reviewed. Physical Exam: There were no vitals filed for this visit. There is no height or weight on file to calculate BMI. Airway Assessment: Mallampati: III TM distance: >3 FB Neck ROM: full She describes her mouth opening as half of everyone else d/t scleroderma. Cardiovascular Assessment: Rhythm: regular Pulmonary Assessment: breath sounds clear to auscultation Dental Assessment: - normal exam Misc Assessment: Patient is wearing No contact(s). IV access: Peripheral line Other exam findings: Limited Mouth Opening BP Readings from Last 3 Encounters: 06/03/20 : 114/60 10/02/19 : 120/70 05/29/19 : 119/67 Most recent ECHO- EF 65% w/o HD sig Valve Dz. PAP 29 Anesthesia Plan: ASA 3 general, with a(n) intravenous induction 60 y/o female for Desmoid Mass Excision Right Side Back Hx of PONV, Previous Igel 3 and MAC 3 w grade 2 view - No other hx of difficulty w anesthesia Hx sig for Scleroderma, Raynaud's (severe), CKD, Desmoid Fibromatosis, GERD, Motion Sickness Denies CP/SOB/Orthopnea/Active FAYE ss/Acute illness Plan GA/DANTE/VA and IV maint/p op pacu care and IV pain control w local provided by surgical service. Antiemetics including a scop patch (SE profile discussed) Glidescope in the room. BP on leg. IV by me (RUE lateral) The patient was informed of the risks, benefits and alternatives of anesthesia. These risks included, but were not limited to, post-operative nausea and/or vomiting, pain, sore throat, dental/lip trauma, and other rare but serious complications such as major organ damage, awareness, severe allergicreactions, position-related nerve injuries, and need blood transfusions. All questions were sought and answered. Consent was signed and placed in chart. Region - Other Informed Consent: Anesthetic plan and risks discussed with patient. Plan discussed with CLINICAL NURSING MANAGER. [facility] PAT Clinic Note: Date and Time of Entry: 06/09/2020 10:05 AM Entered By: Joseline Palmer APRN Reason for Evaluation: Decision Support/Risk Assessment Hx of Anesthesia Problem: PONV. PAT Visit Type: Telephone Call Additional/Outside Records Requested? Did not request medical information from outside organization. Findings, Assessment and Plan: Ms. Wells is a 60 y.o. female not seen in the PAT Clinic but with whom I spoke prior to planned resection of back tumor with Dr. Solomon Quiros at the [facility]. Relevant PMH includes: -scleroderma (Dr. Mcdonough) -Raynaud's (Dr. Jacobs, Botox injections 3x/year, NTG paste in winter) -CKD3 (Dr. Sawyer annually) -HTN (amlodipine, fosinopril) -GERD/Joseph's (esomeprazole bid) -intermediate risk of SHANE per [facility] ROS: Denies chest discomfort, palpitations, syncope, orthopnea, lower extremity edema. Denies cough, SOB, wheezing. GERD sx well-managed with PPI bid. She rates her pain over the past 24 hours as 4/10 (back tumor, fingers). Per PDMP, no opioid prescription for >1 year. Patient Reported Substance History: Smoking:quit years ago Alcohol:occasional glass of wine Other drugs:no Caffeine: infrequent Exercise tolerance is moderate. While less active during hot weather and limited by discomfort in her hands, she is independent with ADLs, attends to light and moderate performance specialist, walks outdoors, and ascends 1 FOS regularly--all without cardiopulmonary sx. Anesthesia record 10/07/2016: iGel 3, MV NA. Based on patient's report and available information, her co-morbidities appear optimized at this time. I assured her that she would have the opportunity to speak with her anesthesiologist the morning ofthe surgery regarding the specific plan for anesthesia. She asked that care be taken with positioning and would appreciate efforts to mitigate PONV. She expressed concern about post-op pain during the 100 mile trip home. Joseline Palmer APRN Pre-Anesthesia Clinic [phone] documented in this encounter Plan of Treatment Upcoming Encounters Date Type Department Care Team (Late st Contact Info) Description 10/07/2024 11:30 AM EST Office Visit Dermatology at [facility] [address] [place] [address] oJ Ordaz MD [facility] [place] [address] 12/13/2024 11:30 AM EST Appointment [place] [phone] 12/13/2024 1:00 PM EST Office Visit Rheumatology at [facility] [place] [address] Kiet Pardo MD [facility] [place] [address] documented as of this encounter Visit Diagnoses Not on filedocumented in this encounter Administered Medications Inactive Administered Medications - up to 3 most recent administrations Medication Order MAR Action Action Date Dose Rate Site ceFAZolin (Ancef) 2g in dextrose 5% 100 mL 2 g, Intravenous, EVERY 3 HOURS, 1 dose, First dose on Mon06/22/20 at 0700, Administer over 30 Minutes, Intra-Operative (Intra-Procedure), Indication for (Active or Suspected): Prophylaxis Given 06/22/2020 7:40 AM EDT 2 g dexamethasone (Decadron) injection PRN, Starting on Mon06/22/20 at 0740, Until Mon06/22/20 at 0937, Anesthesia Intra-op, Routine Given 06/22/2020 7:40 AM EDT 8 mg fentaNYL 50 mcg/mL multi-dose injection PRN, Starting on Mon06/22/20 at 0828, Until Mon06/22/20 at 0937, Anesthesia Intra-op, Routine Given 06/22/2020 8:28 AM EDT 50 mcg lidocaine (PF) (XYLOCAINE) 100 mg/5 mL (2 %) injection PRN, Starting on Mon06/22/20 at 0736, Until Mon06/22/20 at 0937, Anesthesia Intra-op, Routine Given 06/22/2020 7:36 AM EDT 60 mg midazolam (PF) (VERSED) multi-dose injection PRN, Starting on Mon06/22/20 at 0734, Until Mon06/22/20 at 0937, Anesthesia Intra-op, Routine Given 06/22/2020 7:34 AM EDT 2 mg ondansetron (ZOFRAN) injection PRN, Starting on Mon06/22/20 at 0850, Until Mon06/22/20 at 0937, Anesthesia Intra-op, Routine Given 06/22/2020 8:50 AM EDT 4 mg Given 06/22/2020 7:44 AM EDT 4 mg propofol (DIPRIVAN) 10 mg/mL bolus injection (Anesthesia) PRN, Starting on Mon06/22/20 at 0736, Until Mon06/22/20 at 0937, Anesthesia Intra-op Given 06/22/2020 7:36 AM EDT 200 mg propofol (DIPRIVAN) infusion CONTINUOUS PRN, Starting on Mon06/22/20 at 0741, Until Mon06/22/20 at 0937, Anesthesia Intra-op, Routine New Bag 06/22/2020 7:41 AM EDT 50 mcg/kg/min 18.8 mL/hr rocuronium (ZEMURON) multi-dose injection PRN, Starting on Mon06/22/20 at 0736, Until Mon06/22/20 at 0937, Anesthesia Intra-op, Routine Given 06/22/2020 7:36 AM EDT 20 mg sugammadex (BRIDION) 100 mg/mL injection PRN, Starting on Mon06/22/20 at 0917, Until Mon06/22/20 at 0937, Anesthesia Intra-op, Routine Given 06/22/2020 9:17 AM EDT 130 mg documented in this encounter Care Teams Mate Fishing Vessel Relationship Specialty Start Date End Date Gorge Man MD [facility] - [facility] Medicine 11/28/18 02/18/21 documented as of this encounter
--- OUTSIDE RECORDS SUMMARY | 2024-09-14 13:06 | XMS_ITS | Encounter Summary ---
Author Organization [facility] [place] [address] Care Team Providers Care Reports Developer Name Role Phone Gorge Man MD Primary Care Provider [phone] Encounter Details Date Type Department Care Team (Late st Contact Info) Description 10/30/2020 [place] [address] Kiet Pardo MD [facility] [place] [address] Social History Tobacco Use Types Packs/Day Years [...] AM EST Office Visit Dermatology at [facility] [address] [place] [address] Jo Ordaz MD [facility] [place] [address] 12/13/2024 11:30 AM EST [place] [phone] 12/13/2024 1:00 PM EST [place] [phone] Kiet Pardo MD [facility] [place] [address] documented as of this encounter Visit Diagnoses Not on filedocumented in this encounter Care Teams Reports Developer Relationship Specialty Start Date End Date Gorge Man MD PCP - [facility] Medicine 11/28/18 02/18/21 documented as of this encounter
--- OUTSIDE RECORDS SUMMARY | 2024-09-14 13:06 | XMS_ITS | Encounter Summary ---
Author Organization [facility] [place] [address] Care Team Providers Care Investment Trader Name Role Phone Gorge Man MD Primary Care Provider [phone] Reason for Visit * Reason Onset Date Comments Medication Refill 10/20/2020 Encounter Details Date Type Department Care Team (Late st Contact Info) Description 10/20/2020 Refill Nephrology [place] [address] Sumit Sawyer MD [facility] [place] [address] Social History Tobacco Use Types Packs/Day Years [...] AM EST Office Visit Dermatology at [facility] [address] [place] [address] Jo Ordaz MD [facility] [place] [address] 12/13/2024 11:30 AM EST Appointment Pulmonology at [place] [phone] 12/13/2024 1:00 PM EST Office [place] [phone] Kiet Pardo MD [facility] [place] [address] documented as of this encounter Visit Diagnoses Not on filedocumented in this encounter Care Teams Investment Trader Relationship Specialty Start Date End Date Gorge Man MD PCP - General [facility] Medicine 11/28/18 02/18/21 documented as of this encounter
--- OUTSIDE RECORDS SUMMARY | 2024-09-14 13:06 | XMS_ITS | Encounter Summary ---
Author Organization [facility] Address [facility] [place] [address] Care Team Providers Care Flame Annealing Machine Operator Name Role Phone Gorge Man MD Primary Care Provider [phone] Encounter Details Date Type Department Care Team (Late Contact Info) Description 10/21/2020 Orders Only Nephrology [place] [address] Sumit Sawyer MD [facility] [place] [address] Stage 3a chronic kidney disease Social History [...] EST Office Visit Dermatology at [facility] [address] [place] [address] Jo Ordaz MD [facility] [place] [address] 12/13/2024 11:30 AM EST Appointment [place] [phone] 12/13/2024 1:00 PM EST Office [place] [phone] Kiet Pardo MD [facility] [place] [address] documented as of this encounter Visit Diagnoses Diagnosis Stage 3a chronic kidney disease documented in this encounter Care Teams Flame Annealing Machine Operator Relationship Specialty Start Date End Date Gorge Man MD PCP - [facility] Medicine 11/28/18 02/18/21 documented as of this encounter
--- OUTSIDE RECORDS SUMMARY | 2024-09-14 13:06 | XMS_ITS | Encounter Summary ---
[place] [address] Care Team Providers Care Cd Mixer Name Role Phone Gorge Man MD Primary Care Provider [phone] Reason for Visit * Reason Onset Date Comments Labs Only 12/07/2020 Encounter Details Date Type Department Care Team (Late st Contact Info) Description 12/07/2020 Telephone [place] [address] Antoine Jung, RN Labs Only Social History Tobacco Use Types Packs/Day Years [...] encounter Miscellaneous Notes * Telephone Encounter - Antoine Jung RN - 12/07/2020 10:46 AM EST Patient calls, states scheduled for infusion on Monday the (reclast?). Lab orders needed prior to infusion per patient after contact with infusion. Patient request lab orders. documented in this encounter Plan of Treatment Upcoming Encounters Date Type Department Care Team (Late st Contact Info) Description 10/07/2024 11:30 AM EST Office Visit Dermatology at [facility] [address] [place] [address] Jo Ordaz MD [facility] [place] [address] 12/13/2024 11:30 AM EST [place] [phone] 12/13/2024 1:00 PM EST Office [place] [phone] Kiet Pardo MD [facility] [place] [address] documented as of this encounter Visit Diagnoses Not on filedocumented in this encounter Care Teams Cd Mixer Relationship Specialty Start Date End Date Gorge Man MD PCP - [facility] Medicine 11/28/18 02/18/21 documented as of this encounter
--- OUTSIDE RECORDS SUMMARY | 2024-09-14 13:06 | XMS_ITS | Encounter Summary ---
Author Organization [facility] [place] [address] Care Team Providers Care Telephone Diaphragm Assembler Name Role Phone Gorge Man MD Primary Care Provider [phone] Encounter Details Date Type Department Care Team (Late st Contact Info) Description 08/21/2020 External Results [place] [address] Provider, Scanning Social History Tobacco Use Types [...] 11:30 AM EST Office Visit Dermatology at [facility] [address] [place] [address] Jo Ordaz MD [facility] [place] [address] 12/13/2024 11:30 AM EST Appointment [place] [address] 12/13/2024 1:00 PM EST Office [place] [address] Kiet Pardo MD [facility] RHEUMATOLOGY [place] [id number] documented as of this encounter Procedures Procedure Name Priority Date/Time Associated Diagnosis Comments SURGICAL PATHOLOGY SCAN Routine 08/21/2020 documented in this encounter Results * Scan Doc: Surgical Pathology (08/21/2020) Solomon Quiros MD MEDIA MGR SCAN EXT O RDR/RSLT documented in this encounter Visit Diagnoses Not on filedocumented in this encounter Care Teams Telephone Diaphragm Assembler Relationship Specialty Start Date End Date Gorge Man MD PCP - [facility] Medicine 11/28/18 02/18/21 documented as of this encounter
--- OUTSIDE RECORDS SUMMARY | 2024-09-14 13:06 | XMS_ITS | Encounter Summary ---
Author Organization [facility] [place] [address] Care Team Providers Care Boat Loader Name Role Phone Gorge Man MD Primary Care Provider [phone] Encounter Details Date Type Department Care Team (Late st Contact Info) Description 09/30/2020 Notes Only [place] [address] Ashley Smith V, RN Social History Tobacco Use Types Packs/Day [...] at [facility] [address] [place] [address] Jo Ordaz MD [facility] [place] [address] 12/13/2024 11:30 AM [place] [address] 12/13/2024 1:00 PM EST [place] [address] Kiet Pardo MD [facility] RHEUMATOLOGY [place] [id number] documented as of this encounter Visit Diagnoses Not on filedocumented in this encounter Care Teams Boat Loader Relationship Specialty Start Date End Date Gorge Man MD PCP - [facility] Medicine 11/28/18 02/18/21 documented as of this encounter
--- OUTSIDE RECORDS SUMMARY | 2024-09-14 13:06 | XMS_ITS | Encounter Summary ---
[place] [address] Care Team Providers Care Cloud Engineer Name Role Phone Gorge Man MD Primary Care Provider [phone] Reason for Referral * High Dollar Medication (Routine) - Closed Specialty Diagnoses / Procedures Referred By Contac t Referred To Contact Med Infusion Diagnoses Other osteoporosis, unspecified pathological fracture presence Kiet Pardo MD [facility] [place] [address] [facility] Med Infusion [address] [place] [phone] Referral ID Status Reason Start Date Expiration Date V isits Requested Visits Authorized [id number] Closed Consult, Test & Treat 12/04/2020 12/04/2021 1 1 Encounter Details Date Type Department Care Team (Late st Contact Info) Description 12/04/2020 Orders [place] [address] Kiet Pardo MD [facility] [place] [address] Other osteoporosis, unspecified pathological fracture presence Social [...] 11:30 AM EST Office Visit Dermatology at [place] [address] [place] [address] Jo Ordaz MD [facility] [place] [address] 12/13/2024 11:30 AM EST [place] [address] 12/13/2024 1:00 PM EST [place] [address] Kiet Pardo MD [facility] [place] [address] Scheduled Referrals Name Type Priority Associated Diagnoses Orde r Schedule Auth Request for Infusion Medication Outpatient Referral Routine Other osteoporosis, unspecified pathological fracture presence Ordered: 12/04/2020 documented as of this encounter Visit Diagnoses Diagnosis Other osteoporosis, unspecified pathological fracture presence documented in this encounter Care Teams Cloud Engineer Relationship Specialty Start Date End Date Gorge Man MD PCP - General [facility] Medicine 11/28/18 02/18/21 documented as of this encounter
--- OUTSIDE RECORDS SUMMARY | 2024-09-14 13:06 | XMS_ITS | Encounter Summary ---
Author Organization [facility] [place] [address] Care Team Providers Care Financial Auditor Name Role Phone Gorge Man MD Primary Care Provider [phone] Encounter Details Date Type Department Care Team (Latest Contact Info) Description 12/14/2020 1:45 PM EST Laboratory Appointment Lab [address] [place] [phone] Other osteoporosis, unspecified pathological fracture presence; Stage [...] Visit Dermatology at [facility] [address] [place] [address] Jo Ordaz MD [facility] [place] [address] 12/13/2024 11:30 AM EST Appointment [place] [address] 12/13/2024 1:00 PM EST Office [place] [address] Kiet Pardo MD [facility] [place] [address] documented as of this encounter Procedures Procedure Name Priority Date/Time Associated Diagnosis Comments HC VENIPUNCTURE STAT 12/14/2020 2:03 PM EST Other osteoporosis, unspecified pathological fracture presence Stage 3 chronic kidney disease, unspecified whether stage 3a or 3b CKD documented in this encounter Results * (ABNORMAL) Creatinine (12/14/2020 2:03 PM EST) Creatinine 1.05 0.70 - 1.20 mg/dL [facility] Est Glomerular Filtration Rate 58(L) >=60 mL/min/1. 73 m?? [facility] Comment: This patient? s [...] In Lab Kiet Pardo MD CHEMISTRY ORDERABLES [facility] [address] documented in this encounter Visit Diagnoses Diagnosis Other osteoporosis, unspecified pathological fracture presence Stage 3 chronic kidney disease, unspecified whether stage 3a or 3b CKD documented in this encounter Care Teams Financial Auditor Relationship Specialty Start Date End Date Gorge Man MD PCP - [facility] Medicine 11/28/18 02/18/21 documented as of this encounter
--- OUTSIDE RECORDS SUMMARY | 2024-09-14 13:06 | XMS_ITS | Encounter Summary ---
Author Organization [facility] [place] [address] Care Team Providers Care Residential Service Technician Name Role Phone Gorge Man MD Primary Care Provider [phone] Reason for Visit * Reason Comments Skin Cancer Examination Encounter Details Date Type Department Care Team (Late st Contact Info) Description 06/03/2020 10:15 AM EDT Office Visit Dermatology at [place] [address] [place] [address] Jo Ordaz MD [facility] [place] [address] Desmoid tumor; Scleroderma; Calcinosis cutis; History of superficial basal cell carcinoma; Chondrodermatitis nodularis helicis of right ear Social History Tobacco Use Types Packs/Day Years [...] as of this encounter Progress Notes * Jo Ordaz MD - 06/03/2020 10:15 AM EDT DERMATOLOGY ESTABLISHED PATIENT CLINIC NOTE Date of Service: 06/03/2020 Amber Wells : 1960 Provider: Jo Ordaz MD Chief Complaint Patient presents with ??? Skin Cancer Examination SKIN HX Personal History Y/N Date, location, treatment Melanoma No DN No SCC No BCC Yes 05/29/19: Left chest, sBCC (ED&C) AK or field cancerization therapy No Immunosuppression or malignancy No Blistering sunburns or tanning bed use Other (i.e., eczema, psoriasis) Yes Scleroderma, Raynaud's phenomenon 04/17/14: Back, myofibroblastic spindle cell tumor (excision) 05/06/14: Back, desmoid-type fibromatosis (resection, excision) 04/20/16: Left anterior thigh, SK 11/02/17: Left extensor forearm, calcinosis cutis Relevant social history Family History Y/N Parents, siblings, children Melanoma Yes Sister NMSC No Other No Patient Preferences Preferred name Amber Preferred contact method [x] Home [] Cell [x] myD-H [] Other: Permission to leave detailed message including results [x] Yes [] No Permission to discuss care with (Mike) Preferred pharmacy [facility] in [place], [place] Procedure Screening Questions Y/N Allergies to lidocaine or epinephrine No Blood thinners No Pacemaker or defibrillator No HPI Amber Wells is a 60 y.o. female, established patient last seen by me on 10/02/2019 for a procedure visit. 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 esomeprazole (NexIUM) 40 mg Capsule, Delayed Release(E.C.) Take 1 capsule by mouth 2 times daily. 180 capsule 3 ??? sildenafil (Revatio) 20 mg Tablet TAKE TWO TABLETS BY MOUTH EVERY MORNING, ONE TABLET BY MOUTH EVERY AFTERNOON AND TWO TABLETS BY MOUTH EVERY EVENING. 150 tablet 5 ??? lidocaine-prilocaine (EMLA) Cream Apply to affected [...] onto the skin every 6 hours. ??? cephALEXin (Keflex) 500 mg Capsule Take 1 capsule by mouth 4 times daily. (Patient not taking: Reported on 06/03/2020) 40 capsule 0 No current facility-administered medications for this visit. ADR Allergies Allergen Reactions ??? Other [Unclassified Drug] Lobster--weird sensation ROS General: Feeling well Skin: Denies other skin complaints EXAM General: NAD, pleasant, cooperative Skin: Patient was asked to undress to the level of her comfort. Verbalized that the provider will not be checking mucous membranes/areas covered by underwear (COVID-19). Patient's decision was to remove bra and keep underwear on and have the following examined: skin of the scalp, hair, face, ears, neck, chest, breasts, abdomen, back, axillae, upper and lower extremities, hands, and feet. Areas of face under mask examined (COVID-19): [x] Yes [] No Significant Skin Findings: A. Right infrascapular back: 5 cm indurated plaque. B.Trunk and extremities:??[id number] skin of scleroderma; punctate hyperkeratotic erosions on the distal fingertips, sclerodactyly, telangiectasias ?? C. Right antitragus: Firm, exquisitely tender, pink papule with a central keratotic core in area ofcutaneous calcinosis. D. Well-healed hypopigmented scar per skin history. ASSESSMENT/PLAN A. Desmoid Tumor (Fibromatosis) - Surgical consult today B. Scleroderma - Systemic disease managed by Rheumatology. C. 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 - D/c if topical does not alleviate symptoms. D. H/O sBCC - NER, will continue to monitor. Follow Up: RTC in 1 year for: [x] FSE [] Follow up [x] Reminder placed in system [] Appointment scheduled before exiting Note initiated by: JILL Winkler I am documenting this encounter acting as the scribe for and in the presence of Dr. Ordaz: Miranda Sargent I performed the above scribed service and agree with the accuracy of the documentation in this encounter. Jo Ordaz MD Independent Sales Representative of Dermatology Department of Dermatology [facility] cc: Gorge Man MD documented in this encounter Plan of Treatment Upcoming Encounters Date Type Department Care Team (Late st Contact Info) Description 10/07/2024 11:30 AM EST Office Visit Dermatology at [place] [address] [place] [address] Jo Ordaz MD [facility] [place] [address] 12/13/2024 11:30 AM EST Appointment [place] [address] 12/13/2024 1:00 PM EST Office [place] [address] Kiet Pardo MD [facility] [place] [address] documented as of this encounter Visit Diagnoses Diagnosis Desmoid tumor Neoplasm of uncertain behavior of connective and other soft tissue Scleroderma Systemic sclerosis Calcinosis cutis Degenerative skin disorder History of superficial basal cell carcinoma Personal history of other malignant neoplasm of skin Chondrodermatitis nodularis helicis of right ear documented in this encounter Care Teams Residential Service Technician Relationship Specialty Start Date End Date Gorge Man MD [facility] Medicine 11/28/18 02/18/21 documented as of this encounter
--- OUTSIDE RECORDS SUMMARY | 2024-09-14 13:06 | XMS_ITS | Encounter Summary ---
Author Organization [facility] [place] [address] Care Team Providers Care Can Piler Name Role Phone Gorge Man MD Primary Care Provider [phone] Encounter Details Date Type Department Care Team (Latest Contact Info) Description 10/14/2020 9:20 AM EST Laboratory Appointment Lab [address] [place] [phone] Stage 3a chronic kidney disease Social History [...] Visit Dermatology at [facility] [address] [place] [address] Jo Ordaz MD [facility] [place] [address] 12/13/2024 11:30 AM EST [place] [address] 12/13/2024 1:00 PM EST Office Visit Rheumatology at [facility] [place] [address] Kiet Pardo MD [facility] [place] [address] documented as of this encounter Procedures Procedure Name Priority Date/Time Associated Diagnosis Comments HC CREATININE - NON BLOOD Routine 10/14/2020 9:31 AM EST Stage 3a chronic kidney disease HC PARATHYROID HORMONE(PTH INTACT Routine 10/14/2020 9:26 AM EST Stage 3a chronic kidney disease HEMOGRAM Routine 10/14/2020 9:26 AM EST Stage 3a chronic kidney disease DIFFERENTIAL, AUTOMATED Routine 10/14/2020 9:26 AM EST Stage 3a chronic kidney disease HC CBC,PLT & AUTO DIFF Routine 10/14/2020 9:26 AM EST Stage 3a chronic kidney disease HC URIC ACID, SERUM Routine 10/14/2020 9 :26 AM EST Stage 3a chronic kidney disease HC PHOSPHORUS, SERUM Routine 10/14/2020 9:26 AM EST Stage 3a chronic kidney disease HC ALBUMIN, SERUM Routine 10/14/2020 9:2 6 AM EST Stage 3a chronic kidney disease BASIC METABOLIC PANEL Routine 10/14/2020 9:26 AM EST Stage 3a chronic kidney disease documented in this encounter Results * Protein/Creatinine Ratio, urine (10/14/2020 9:31 AM EST) Creatinine, Urine 18 mg/dL [facility] Protein, Urine <6 0 - 12 mg/dL [facility] Protein / Creatinine Ratio, Urine <0.3 ratio [facility] Urine specimen (specimen) 10/14/2020 9:31 AM EST 10/14/2020 9:40 AM EST Narrative Resulting Agency Comment Spec In Lab Sumit Sawyer MD URINE ORDERABLES Performing Organization Address City/[facility]/ZIP Co de Phone Number [facility] [place] [address] * Differential, Automated (10/14/2020 9:26 AM EST) Neutrophil % 72.1 % [facility] Neutrophil Absolute 5.80 1.70 - 6.10 x10(3)/[facility] Lymph % 18.5 % [facility] Lymphocytes Abs 1.5 0.9 - 3.2 x10(3)/[facility] Monocyte % 6.5 % [facility] Monocyte Abs 0.5 0.3 - 0.9 x10(3)/[facility] Eos % 2.1 % [facility] Eosinophils Abs 0.2 0.0 - 0.4 x10(3)/[facility] Basophil % 0.7 % [facility] Baso Absolute 0.1 0.0 - 0.1 x10(3)/[facility] Immature Gran % 0.10 % [facility] Comment: Immature granulocytes(IG's)percentage and absolute count will include metamyelocytes, myelocytes, and promyelocytes. Blood smears from CBCs yielding IG's will be scanned manually for concordance. If this scan disagrees with the automated IG or if promyelocytes are noted, a manual differential will be performed. Immature Gran Absolute 0.01 0.00 - 0.04 x10(3)/[facility] Blood specimen (specimen) 10/14/2020 9:26 AM EST 10/14/2020 9:39 AM EST Narrative Resulting Agency Comment Spec In Lab Sumit Sawyer MD HEMATOLOGY ORDERABL ES Performing Organization Address City/[facility]/ZIP Co de Phone Number [facility] [place] [address] * (ABNORMAL) Hemogram (10/14/2020 9:26 AM EST) [facility] White Blood Cell 8.0 4.0 - 9.5 x10(3)/mc L [facility] Red Blood Cell 4.25 4.00 - 5.21 x10(6)/ L [facility] Hemoglobin 12.6 11.7 - 15.5 gm/dL [facility] Hematocrit 39.4 35.7 - 45.8 % [facility] Mean Cell Volume 92.7 82.6 - 94.4 fL [facility] Mean Cell Hemoglobin 29.6 27.1 - 32.0 pg [facility] Mean Cell Hemoglobin Concentration 32.0 31.7 - 35.0 gm/dL [facility] Platelet 366(H) 145 - 357 x10(3)/ L [facility] RDW Standard Deviation 48.4(H) 37.0 - 46.0 fL [facility] RDW coefficient of variation 14.2(H) 11.5 - 14.1 % [facility] Mean Platelet Volume 10.7 7.6 - 12.9 fL [facility] NRBC% auto 0.0 % [facility] NRBC Absolute 0.000 0.000 - 0.000 x10(3)/[facility] Blood specimen (specimen) 10/14/2020 9:26 AM EST 10/14/2020 9:39 AM EST Narrative Resulting Agency Comment Spec In Lab Sumit Sawyer MD HEMATOLOGY ORDERABL ES [facility] [place] [address] * (ABNORMAL) Basic Metabolic Panel (non-fasting) (10/14/2020 9:26 AM EST) [facility] Glucose 97 65 - 199 mg/dL [facility] Comment:Diabetes: >=200 mg/d L plus symptoms Blood Urea Nitrogen 22(H) 8 - 18 mg/dL [facility] Creatinine 1.14 0.70 - 1.20 mg/dL [facility] Sodium 139 135 - 145 mmol/L [facility] Potassium 4.7 3.5 - 5.0 mmol/L [facility] Comment: Please note: ??Patients with WBC >100,000 may have falsely elevated Potassium levels. ??For accurate Potassium quantification in these patients send serum separator tube (gold top) for subsequent determinations. ??Contact the Clinical Chemistry Laboratory if there are any questions. Chloride 104 98 - 107 mmol/L [facility] Carbon Dioxide 25 22 - 31 mmol/L [facility] Anion Gap 10 5 - 15 mmol/L [facility] Calcium 9.8 8.5 - 10.5 mg/dL [facility] Est Glomerular Filtration Rate 53(L) >=60 mL/min/1. 73 m?? [facility] Comment: The eGFR was calculated using the CKD-EPI equation. As with all creatinine based estimates of kidney function, eGFR values calculated with the CKD-EPI equation are not accurate in patients with acute kidney failure, extremes of body mass or the acutely ill. http://IQzone/[facility] eGFR 61 >=60 mL/min/1. 73 m?? [facility] Comment: The eGFR was calculated using the CKD-EPI equation. As with all creatinine based estimates of kidney function, eGFR values calculated with the CKD-EPI equation are not accurate in patients with acute kidney failure, extremes of body mass or the acutely ill. http://IQzone/[facility] Blood specimen (specimen) 10/14/2020 9:26 AM EST 10/14/2020 9:39 AM EST Narrative Resulting Agency Comment Spec In Lab Sumit Sawyer MD CHEMISTRY ORDERABLE S [facility] [place] [address] * Phosphorus (10/14/2020 9:26 AM EST) Phosphorus 2.9 2.5 - 4.5 mg/dL [facility] Blood specimen (specimen) 10/14/2020 9:26 AM EST 10/14/2020 9:39 AM EST Narrative Resulting Agency Comment Spec In Lab Sumit Sawyer MD CHEMISTRY ORDERABLE S [facility] [place] [address] * Albumin Level (10/14/2020 9:26 AM EST) Albumin 4.8 3.2 - 5.2 gm/dL [facility] Blood specimen (specimen) 10/14/2020 9:26 AM EST 10/14/2020 9:39 AM EST Narrative Resulting Agency Comment Spec In Lab Sumit Sawyer MD CHEMISTRY ORDERABLE S [facility] [place] [address] * Uric acid (10/14/2020 9:26 AM EST) Uric Acid 4.8 2.5 - 6.5 mg/dL [facility] Blood specimen (specimen) 10/14/2020 9:26 AM EST 10/14/2020 9:39 AM EST Narrative Resulting Agency Comment Spec In Lab Sumit Sawyer MD CHEMISTRY ORDERABLE S [facility] [place] [address] * (ABNORMAL) PTH (10/14/2020 9:26 AM EST) Parathyroid Hormone 77(H) 15 - 65 pg/mL [facility] Blood specimen (specimen) 10/14/2020 9:26 AM EST 10/14/2020 9:39 AM EST Narrative Resulting Agency Comment Spec In Lab Sumit Sawyer MD CHEMISTRY ORDERABLE S Performing Organization Address City/State/[facility] Co de Phone Number [facility] [place] [address] documented in this encounter Visit Diagnoses Diagnosis Stage 3a chronic kidney disease documented in this encounter Care Teams Can Piler Relationship Specialty Start Date End Date Gorge Man MD PCP - [facility] Medicine 11/28/18 02/18/21 documented as of this encounter
--- OUTSIDE RECORDS SUMMARY | 2024-09-14 13:06 | XMS_ITS | Encounter Summary ---
Author Organization [facility] [place] [address] Care Team Providers Care Medical Writer Name Role Phone Gorge Man MD Primary Care Provider [phone] Reason for Visit * Reason Onset Date Comments Medication Refill 07/30/2020 Encounter Details Date Type Department Care Team (Late st Contact Info) Description 07/30/2020 [place] [address] Yu Mcdonough, [facility] [place] [address] Social History Tobacco Use Types Packs/Day Years [...] 11:30 AM EST Office Visit Dermatology at [facility] [address] [place] [address] Jo Ordaz MD [facility] [place] [address] 12/13/2024 11:30 AM EST Appointment Pulmonology at [place] [phone] 12/13/2024 1:00 PM EST Office [place] [phone] Kiet Pardo MD [facility] [place] [address] documented as of this encounter Visit Diagnoses Not on filedocumented in this encounter Care Teams Medical Writer Relationship Specialty Start Date End Date Gorge Man MD PCP - General [facility] Medicine 11/28/18 02/18/21 documented as of this encounter
--- OUTSIDE RECORDS SUMMARY | 2024-09-14 13:06 | XMS_ITS | Encounter Summary ---
[place] [address] Care Team Providers Care Tire Installer Name Role Phone Gorge Man MD Primary Care Provider [phone] Encounter Details Date Type Department Care Team (Late st Contact Info) Description 07/29/2020 Orders [place] [address] Perlita Rosario RN Scalp lesion Social History Tobacco Use Types Packs/Day Years [...] as of this encounter Progress Notes * Perlita Rosario RN - 07/29/2020 4:31 PM EDT I placed the order for the ultrasound to be done at [facility] and faxed the order to the radiology department at [phone]. I put on the cover sheet that if they need a different or additional order, to please call the general surgery nurses. documented in this encounter Plan of Treatment Upcoming Encounters Date Type Department Care Team (Late st Contact Info) Description 10/07/2024 11:30 AM EST Office Visit Dermatology at [facility] [address] [place] [address] Jo Ordaz MD [facility] [place] [address] 12/13/2024 11:30 AM [place] [address] 12/13/2024 1:00 PM EST [place] [phone] Kiet Pardo MD [facility] [place] [address] documented as of this encounter Visit Diagnoses Diagnosis Scalp lesion Unspecified disorder of skin and subcutaneous tissue documented in this encounter Care Teams Tire Installer Relationship Specialty Start Date End Date Gorge Man MD PCP - [facility] 11/28/18 02/18/21 documented as of this encounter
--- OUTSIDE RECORDS SUMMARY | 2024-09-14 13:06 | XMS_ITS | Encounter Summary ---
Author Organization [facility] [place] [address] Care Team Providers Care Radio Mechanic Name Role Phone Gorge Man MD Primary Care Provider [phone] Reason for Visit * [facility] [employer] Medication (Routine) - Closed Specialty Diagnoses / Procedures Referred By Wander t Referred To Contact Med Infusion Diagnoses Other osteoporosis, unspecified pathological fracture presence Kiet Pardo MD [facility] [place] [address] [facility] Med Infusion [address] [place] [phone] Referral ID Status Reason Start Date Expiration Date V isits Requested Visits Authorized [id number] Closed Consult, Test & Treat 12/04/2020 12/04/2021 1 1 Encounter Details Date Type Department Care Team (Latest Contact Info) Description 12/14/2020 2:31 PM EST - 12/14/2020 11:59 PM EST Hospital En[place] [address] Other osteoporosis, unspecified pathological fracture presence Discharge Disposition: Home Social History Tobacco Use [...] Sign Reading Time Taken Comments Blood Pressure 135/64 12/14/2020 2:42 PM EST Pulse 83 12/14/2020 2:42 PM EST Temperature 36.6 ??C (97.9 ??F) 12/14/2020 2:42 PM ES T Respiratory Rate 19 12/14/2020 2:42 PM EST Oxygen Saturation 99% 12/14/2020 2:42 PM EST Inhaled Oxygen Concentration - - Weight 64.9 kg (143 lb) 12/14/2020 2:42 PM EST Height - - Body Mass Index 22.4 10/14/2020 9:55 AM EST documented in this encounter Medications at Time of Discharge Medication Sig Dispensed Refills Start Date End Date calcium citrate (Calcitrate) 200 mg (950 mg) [...] inches onto the skin every 6 hours. amLODIPine (Norvasc) 5 mg TabletIndications:Stage 3a chronic kidney disease Take 1 tablet by mouth daily. 90 tablet 3 10/21/2020 12/25/2020 sildenafiL (Revatio) 20 mg Tablet TAKE TWO [...] as needed. 30 g 2 01/10/2020 01/15/2021 fosinopriL (MONOPRIL) 20 mg TabletIndications:Scler oderma,CKD (chronic [...] 12/12/2016 03/24/2021 documented as of this encounter Progress Notes * Abel Olivas RN - 12/14/2020 3:20 PM EST NFUSION THERAPY ADMINISTRATION NOTES DIAGNOSIS: The encounter diagnosis was Other osteoporosis, unspecified pathological fracture presence. REASON FOR VISIT: Reclast infusion Allergies Allergen Reactions ??? Other [Unclassified Drug] Lobster--weird sensation SUBJECTIVE: Offers no complaints. OBJECTIVE: First time receiving this medication, nursing education provided VITAL SIGNS: BP 135/64 (BP Location (NBP): Left arm, Patient Position: Sitting, BP Cuff Sizes: Adult (25-34 cm)) Pulse 83 Temp 36.6 ??C (97.9 ??F) (Temporal) Resp 19 Wt 64.9 kg (143 lb) LMP 11/27/2014 SpO2 99% BMI 22.40 kg/m?? LAB DATA: Recent Results (from the past 24 hour(s)) Creatinine Result Value Ref Range Creatinine 1.05 0.70 - 1.20 mg/dL Estimated GFR 58 (L) >=60 mL/min/1.73 m?? Creatinine clearance = 59.07 IV ACCESS: Peripheral IV Line - Single Lumen 12/14/20 1445 basilic vein (medial side of arm), right 24 gauge;3/4 in length (Active) HYDRATION: N/A ANTIEMETICS/PREMEDS: None Patient identification and orders checked against actual dose given at bedside by Abel Olivas RN MEDICATION/TREATMENT: Reclast 5 mg IV Administration times and dosage: See MAR REACTIONS None. ASSESSMENT: Awake and alert - tolerated treatment well. PLAN: Return to clinic as scheduled. documented in this encounter Plan of Treatment Upcoming Encounters Date Type Department Care Team (Late st Contact Info) Description 10/07/2024 11:30 AM EST Office Visit Dermatology at [address] [phone] Jo Ordaz MD [facility] [place] [address] 12/13/2024 11:30 AM EST Appointment [place] [address] 12/13/2024 1:00 PM EST Office [place] [phone] Kiet Pardo MD [facility] [place] [address] documented as of this encounter Visit Diagnoses Diagnosis Other osteoporosis, unspecified pathological fracture presence documented in this encounter Administered Medications Inactive Administered Medications - up to 3 most recent administrations Medication Order MAR Action Action Date Dose Rate Site zoledronic acid (Reclast) 5 mg in mannitol and water 100 mL infusion 5 mg 5 mg, Intravenous, ONCE, 1 dose, On Mon12/14/20 at 1530, Administer over 15-30 Minutes, Hold dose for CrCl< 35 mL/min. Do not mix with IV Calcium-containing products. Administer over no less than 15 minutes., Outpatient Transfusion, Indication for: Osteoporosis, prevention of fractures New Bag 12/14/2020 3:15 PM EST 5 mg 400 mL/hr documented in this encounter Care Teams Radio Mechanic Relationship Specialty Start Date End Date Gorge Man MD PCP - [facility] 11/28/18 02/18/21 documented as of this encounter
--- OUTSIDE RECORDS SUMMARY | 2024-09-14 13:06 | XMS_ITS | Encounter Summary ---
[place] [address] Care Team Providers Care Farm Equipment Mechanic Apprentice Name Role Phone Gorge Man MD Primary Care Provider [phone] Reason for Referral * Diagnostic Test (Routine) - Closed Specialty Diagnoses / Procedures Referred By Contac t Referred To Contact Radiology Diagnoses Desmoid fibromatosis Procedures MRI Thoracic Spine Solomon Carreon MD [facility] [address] [place] [address] Referral ID Status Reason Start Date Expiration Date V isits Requested Visits Authorized [id number] Closed Specialty Service Requested 08/31/2020 02/27/2021 1 1 Reason for Visit * Diagnostic Test (Routine) - Closed Specialty Diagnoses / Procedures Referred By Contac t Referred To Contact Radiology Diagnoses Desmoid fibromatosis Procedures MRI Thoracic Spine o Solomon Andrews MD [facility] [address] [place] [address] Referral ID Status Reason Start Date Expiration Date V isits Requested Visits Authorized [id number] Closed Specialty Service Requested 08/31/2020 02/27/2021 1 1 Encounter Details Date Type Department Care Team (Latest Contact Info) Description 09/23/2020 7:52 AM EST - 09/23/2020 11:59 PM EST Hospital Encounter MRI at [facility] [place] [address] Solomon Quiros MD [facility] [place] [address] Desmoid fibromatosis Discharge Disposition: Home Social History [...] 11:30 AM EST Office Visit Dermatology at [address] [address] Jo Ordaz MD [facility] [place] [address] 12/13/2024 11:30 AM EST [place] [phone] 12/13/2024 1:00 PM EST [place] [address] Kiet Pardo MD [facility] [place] [address] documented as of this encounter Procedures Procedure Name Priority Date/Time Associated Diagnosis Comments MRI THORACIC SPINE WITH/WO CONTRAST Routine 09/23/2020 9:25 AM EST Desmoid fibromatosis documented in this encounter Results * MRI Thoracic Spine [...] ? 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 Electronically signed by: Oswaldo Villagran MD, [facility]([phone]), at 09/23/2020 5:23 PM Solomon Quiros MD [facility] MRI ORDERABLES documented in this encounter Visit Diagnoses Diagnosis Desmoid fibromatosis Other benign neoplasm of connective and other soft tissue of unspecified site documented in this encounter Administered Medications Inactive Administered Medications - up to 3 most recent administrations Medication Order MAR Action Action Date Dose Rate Site gadoterate meglumine (DOTAREM) 0.5 mmol/mL (376.9 mg/mL) injection 0.2 mL/kg/dose 0.2 mL/kg/dose, Intravenous, ONCE PRN, 1 dose, Starting on Mon09/23/20 at 0911, Until Mon09/23/20 at 0911, Per Protocol, Radiology Contrast, Routine Given 09/23/2020 9:11 AM EST 12 mLs documented in this encounter Care Teams Farm Equipment Mechanic Apprentice Relationship Specialty Start Date End Date Gorge Man MD PCP - [facility] 11/28/18 02/18/21 documented as of this encounter
--- OUTSIDE RECORDS SUMMARY | 2024-09-14 13:06 | XMS_ITS | Encounter Summary ---
Author Organization [facility] [place] [address] Care Team Providers Care Costing Analyst Name Role Phone Gorge Man MD Primary Care Provider [phone] Encounter Details Date Type Department Care Team (Late Contact Info) Description 07/31/2020 Tele[place] [address] Mare Mehta MD [facility] [place] [address] Social History Tobacco Use Types Packs/Day Years [...] 11:30 AM EST Office Visit Dermatology at [facility] [address] [place] [address] Jo Ordaz MD [facility] [place] [address] 12/13/2024 11:30 AM EST Appointment Pulmonology at [place] [phone] 12/13/2024 1:00 PM EST Office [place] [phone] Kiet Pardo MD [facility] [place] [address] documented as of this encounter Visit Diagnoses Not on filedocumented in this encounter Care Teams Costing Analyst Relationship Specialty Start Date End Date Gorge Man MD PCP - [facility] 11/28/18 02/18/21 documented as of this encounter
--- OUTSIDE RECORDS SUMMARY | 2024-09-14 13:06 | XMS_ITS | Encounter Summary ---
[place] [address] Care Team Providers Care Technical Rep Name Role Phone Gorge Man MD Primary Care Provider [phone] Reason for Visit * Auth/Cert Specialty Diagnoses / Procedures Referred By Wander hernandez Referred To Contact Diagnoses DESMOID MASS OF RIGHT BACK Procedures PRO RAD RESEC SOFT TISS BACK/FLANK RADICAL RESECTION TUMOR BACK, <5 CM (WRVU 15.72) Referral ID Status Reason Start Date Expiration Date Visits Re quested Visits Authorized [id number] 1 1 Encounter Details Date Type Department Care Team (Latest Contact Info) Description 06/22/2020 6:37 AM EDT - 06/22/2020 10:45 AM EDT Hospital Encounter [place] [address] Solomon Quiros MD [facility] [place] [address] Discharge Disposition: Home Social History Tobacco Use [...] Sign Reading Time Taken Comments Blood Pressure 150/77 06/22/2020 10:00 AM EDT Pulse 67 06/22/2020 10:00 AM EDT Temperature 36.1 ??C (97 ??F) 06/22/2020 9:30 AM EDT Respiratory Rate 20 06/22/2020 9:30 AM EDT Oxygen Saturation 100% 06/22/2020 10:00 AM EDT Inhaled Oxygen Concentration - - Weight 62.6 kg (138 lb) 06/22/2020 6:51 AM EDT Height 170.2 cm (5' 7) 06/22/2020 6:51 AM EDT Body Mass Index 21.61 06/22/2020 6:51 AM EDT documented in this encounter Discharge Instructions * Discharge Instructions* Ninoska Kim RN - 06/22/2020 7:14 AM EDT At 715 am you received 1000 mg of acetaminophen- Your next dose should not be taken before 8 hours have passed. Next dose not before- 315pm You should not take more than a total of 3000 mg of acetaminophen in a 24 hour period. SCOPOLAMINE PATCH DISCHARGE INSTRUCTIONS You are wearing a scopolamine patch.This is a medication patch used to prevent and treat nausea andvomiting after surgery. The patch is located behind your ear. Please follow these instructions while you are wearing the patch. Try not to touch the patch. ??? If you do touch the patch, wash your hands right away. Make sure to remove all traces of medication from your hands. ??? If the medication gets on your hands and then you touch your eyes, your vision may become blurry or your pupils may widen. These are both normal and temporary reactions; they will go away shortly. You may remove the patch as early as: tonight BUT must remove it no later than 715 am on , June 25 There will still be some active ingredients on the patch, so fold it in half (with the sticky sidestogether) and throw it in the trash. This will help prevent others from coming into contact with it. After removing the patch, carefully wash your hands and behind your ear (or wherever the patch was placed) with soap and water. ?? If you have not urinated in 6-8 hours after your surgery, remove the patch and call your surgeon. General Anesthesia Discharge Instructions Go home and rest. You may be sleepy for several hours. Take it easy as sudden position changes may cause nausea and/or dizziness. Use caution on stairs. Do not smoke if you are alone. Follow a light to regular diet as tolerated today. If nausea occurs, start with clear liquids, and progress slowly to a regular diet. Do not drive, operate machinery, drink alcoholic beverages or make any legal decisions after havinggeneral anesthesia. The medications given change your reaction time and alter your judgement. IV site -- slight redness is normal, you can use warm compresses. If tenderness and redness increases or foul drainage occurs, please contact your M.D. Patients who have had endotracheal tubes/LMA (tubes used by the anesthesia staff to ensure a safe airway during your operation) may have a sore throat. This is normal and cold liquids or soothing lozenges will help ease this discomfort. Narcotic pain medications can cause constipation, please ask the surgeons office what they recommend for prevention of this. Some non-pharmaceutical means of constipation prevention include increasing intake of fluids, eating more fruits and vegetables as well as fruit juices. If you are uncomfortable and/or unable to urinate within 8 hours of discharge and it is before 5 pm, call your physician. If it is after 5pm go to the closest emergency room or call the hospital heat treat furnace operator at [phone] and ask for physician pump station operator covering for your physician. Questions or problems after 5pm or on a weekend: Call the [facility] heat treat furnace operator at and ask for the physician pump station operator covering for your doctor. * Patient Instructions* Solomon Quiros MD - 06/22/2020 9:21 AM EDT Instructions following Soft Tissue Surgery What to Expect Following Surgery: Swelling and/or bruising under and around the incision is normal. It is usually greatest on the second or third day following surgery. You may also feel the sensation of swelling or firmness that canlast for a month or more Your scar will be most visible for 1-2 months following your operation and will gradually fade. As it heals, a scar looks more pink or red than the skin around it. You may feel a ???healing ridge?? directly under the incision. This is normal and will go away when healing is complete. The skin just above and below your incision will feel numb. This will improve over several months but some patients may have long-term decrease in sensation over these areas. Incision Care: Keep dressing on your incision for the next 2 days, then you may remove dressing and leave incisionopen to air. Remove dressing and replace with dry gauze if it becomes saturated or wet in the next 2 days, replace as needed. If there are pieces of tape directly on the skin (steri-strips), please leave them on until they fall off on their own. You may trim them back as they peel up, or just remove them after 2 weeks. Or you may have surgical glue on your incision which has a purplish hue. This will wear away on it's ownover the next couple weeks. Once dressing is removed in 2 days you may shower and get incision wet. Pat dry immediately following. Do not scrub area vigorously for the next 2 weeks. Do not soak incision under water (i.e. bath or swimming) for the next 3 weeks to prevent a wound infection. Do not use any ointments/salves/Vitamin E on the incision until after your first follow-up appointment as these may impair early wound healing Incisions are sensitive to sunlight. For 1 year after surgery you should use sunscreen when outdoors for long periods of time to prevent permanent darkening of the scar. Diet & Activity: No restrictions in your diet are necessary. Activity as tolerated by your comfort level. Although no heavy lifting or exertion. No significant bending of back. However, daily activities are more than accepatable You may return to work in 10 days or sooner if desired. NO DRIVING for at least 8 hours following any dose of an opioid pain medication if one was prescribed for you. Pain Management: Take acetaminophen (Tylenol) 1000mg every 8 hours for the first 3-5 days following surgery to help minimize pain. You may also use NSAIDS like ibuprofen (motrin, advil), naproxen (Naprosyn, Aleve) atdose indicated on the bottle instructions. You may apply ice or cold packs to the incision for 15-20 minutes several times a day for the first2-3 days following surgery to help with discomfort Follow-up Appointment: Will be scheduled with Dr. Payne not indicated below. Please call [phone] to confirm date and time of your appointment if you do not hear from us inthe week or if you need to make changes. Future Appointments Date Time Provider Department Center 07/08/2020 11:30 AM Solomon Quiros MD [facility] SURG [facility] Call Doctor for: Worsening redness or drainage from your incision lasting longer than 5 days following surgery Any foul-smelling drainage from the incision Fevers greater than 101 degrees F Persistent nausea or vomiting (this may be related to opioid pain medications) Phone number for questions: [phone] before 5 PM weekdays [phone] after 5 PM and on weekends/holidays documented in this encounter Medications at Time [...] inches onto the skin every 6 hours. augmented betamethasone dipropionate (DIPROLENE-AF) 0.05 % OintmentIndications:Cho [...] times daily. 180 capsule 3 02/14/2020 02/12/2021 sildenafil (Revatio) 20 mg Tablet TAKE TWO TABLETS BY MOUTH EVERY MORNING, ONE TABLET BY MOUTH EVERY AFTERNOON AND TWO TABLETS BY MOUTH EVERY EVENING. 150 tablet 5 01/17/2020 07/30/2020 lidocaine-prilocaine (EMLA) Cream Apply to affected areas [...] as of this encounter Progress Notes * Lisette Estrella RN - 06/22/2020 10:50 AM EDT Discharge instructions and medications reviewed with patient and escort. All questions answered andwritten copy sent home with patient. Patient ambulated to car for discharge accompanied by [facility] staff member. * Mahsa Grant RN - 06/15/2020 4:42 PM EDT During this call the patient was questioned regarding travel, fever, cough, SOB or other illness inthe last 14 days. Patient also questioned regarding any exposure to a COVID positive person, a person awaiting results from testing or a person in quarantine. Patient denies any positive responses to the above questions for themselves or their escort for theday of procedure. Patient informed of procedure to be followed upon arrival to the [facility]. 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 documented in this encounter H&P Notes * Solomon Quiros MD - 06/22/2020 7:16 AM EDT H&P accurate and up to date. No changes. Plan excision. documented in this encounter Miscellaneous Notes * Op Note - Solomon Quiros MD - 06/22/2020 9:16 AM EDT [facility] Operative Note Patient Name: Amber Wells : [id number] MR#: [id number] Case Date: 06/22/2020 Surgeon: Surgeon(s) and Role: * Solomon Quiros MD - Primary Preoperative diagnosis: DESMOID MASS OF RIGHT BACK Postoperative diagnosis: DESMOID MASS OF RIGHT BACK Procedure(s) (LRB): RADICAL RESECTION TUMOR BACK OR FLANK; 5 CM OR GREATER (WRVU 22.55) (Right) Anesthesia: General Estimated Blood Loss: 5 mL Specimens removed during surgery: Order Name Source Comment Collection Info Order Time SPECIMEN TO PATHOLOGY Long stitch right lateral. Short stitch superior DESMOID MASS OF RIGHT BACK Right upper back excision excision 06/22/2020 8:27 AM Drains: * No LDAs found * Surgical Closure: Primary Closure - skin incision is completely closed without any wires, jitendra, drains or other devices Disposition: awakened from anesthesia, extubated and taken to the recovery room in a stable condition, having suffered no apparent untoward event. Condition: doing well without problems (Please see the Surgical Encounter Summary for any Implant and Specimen details pertinent to this patient.) HPI/Surgical Indications: Patient is 60y Female with hx of prior desmoids, scleraderma, and renal insufficiency presented with new desmoid of the RIGHT upper back Procedure Description: Procedure in detail: Ms. Wells was identified in the preop holding area. She was then brought to the operating room where monitoring lines and Venodyne boots were placed. General anesthesia was induced and she was intubated without complications. A formal timeout procedure was performed pursuant to and in compliance with [facility] operative policies. She was positioned prone position with extra caregiven to protect skin and joines. Her back was prepped with Chloraprep and sterile drapes were placed. A 2 cm wide local excision was marked out surrounding the palpable lesion and creating an elliptical excision with primary defect measuring 15 cm x 8cm. Local analgesia was injected subcutaneously. An incision was made sharply and carried down using electrocautery through the dermis and underlying soft tissue to the muscular fascia. The skin and underlying subcutaneous fat and was removed to the level of the muscular fascia and sent as a specimen labeled and oriented as described above. The wound was irrigated and hemostasis was obtained. The dermis was reapproximated with a complex layer of numerous interrupted 3-0 Vicryl deep dermal stiches. The skin was reapproximated with vertical mattress 2-0 prolene sutures. The wound was dressed with bacitracin and dry gauze. A time out was performed and all counts were reported to me as correct. The patient was extubated in the OR and taken to the recovery room in hemodynamically stable condition. Infection Bundle used? No Attestation: Case Date: 06/22/2020 I performed this procedure without the involvement of a resident. Solomon Quiros MD 06/22/2020 documented in this encounter Plan of Treatment Upcoming Encounters Date Type Department Care Team (Late st Contact Info) Description 10/07/2024 11:30 AM EST Office Visit Dermatology at [address] [place] [address] Jo Ordaz MD [facility] [place] [address] 12/13/2024 11:30 AM EST Appointment [place]ology [place] [address] 12/13/2024 1:00 PM EST Office Visit [place] [phone] Kiet Pardo MD [facility] [place] [address] documented as of this encounter Procedures Procedure Name Priority Date/Time Associated Diagnosis Comments SURGICAL PATHOLOGY REPORT Routine 06/22/2020 8:28 AM EDT SPECIMEN TO PATHOLOGY Routine 06/22/2020 8:28 AM EDT Rad Resect/Tumor, Soft Tissue Back/Flank, 5Cm Or Greater ([id number]) 06/22/2020 7:32 AM EDT DESMOID MASS OF RIGHT BACK documented in this encounter Results * Surgical Pathology Report (06/22/2020 8:28 AM EDT) Final Diagnosis [id number] ? Location: [facility] The signing pathologist has (i) examined the relevant preparation(s) for the specimen(s) and (ii) rendered or confirmed the diagnosis(es). . ? Addendum ADDENDUM DISCUSSION Right upper back, skin excision: Reparative changes consistent with previous operative site are found on examination of an additional submitted slide section. This finding ?does not alter ??the previously reported diagnosis. Electronically signed by: ??Mery Reid MD Verified: ??07/06/2020 ?Dermatopathologist Performed at: ??-[facility] Dept. 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 of Pathology, [place], [place] DISCUSSION A potential prior procedure site has been identified upon additional gross examination. Histologic sections of that site are pending and the findings will be reported as an addendum. ADDITIONAL STUDIES This case was also reviewed by an additional intradepartmental soft tissue pathologist and dermatopathologist for consensus diagnosis. The report of the ??patient's prior biopsy ([id number]) has been examined. The lesional cells have strong, diffuse nuclear expression of beta-catenin, focal expression of SMA, and do not have significant expression of S100, ALK, or CD34. SPECIMEN(S) SUBMITTED A - Right upper back excision, excision (_) CLINICAL INFORMATION Desmoid mass of right back SPECIMEN PROCESSING A - Labeled/Fixative: Right upper back excision, fresh. Quantity/Size: ??Single, 12.0 x 6.0 x 2.0 cm. Tissue Description: Two sutures orient the specimen. A short stitch is present centrally along one edge, designated short stitch superior. A long suture is present at one end, designated long stitch right lateral. Wrinkled, claire- brown elliptical skin excision with an ill-defined 5.5 x 3.0 cm lobulated area of subcutaneous firmness. Centrally and slightly inferiorly is a 0.7 x 0.1 cm tangential, florence-white scar. Inking: Inferior is marked black. ??Superior is marked blue. Sections/Processing: Sectioning demonstrates firm pink white circumscribed nodules within the subcutaneous tissue. Inked, serially sectioned and telephone services sales representative sections submitted in 24 cassettes as follows: . SPECIMEN PROCESSING ?A1: ??Right lateral tip ?A2-A23: ??Clam Shucking Machine Tender cross-sections, lateral to medial (A2/3, 4/5, 6/7, 8-10, ? 11-13, 14-16, 17-19, 20/21, 22/23 = one section each). ?A24: ??Medial tip ??shb 07/06/2020 3:28 PM EDT [facility] SPECIMEN FROM SKIN / Unknown 06/22/2020 8:28 AM EDT 06/22/2020 8:28 AM EDT Solomon Quiros MD PATHOLOGY/[place] [address] * Specimen to Pathology (06/22/2020 8:28 AM EDT) AP Specimen 06/22/2020 8:28 AM EDT 06/22/2020 8:28 AM EDT Narrative [facility] - 06/22/2020 8:28 AM EDT Specimen requisition ordered. ??Separate Pathology report to follow Solomon Quiros MD PATHOLOGY/CYTOLOGY O [place]ETTE Performing Organization Address [facility]/[place] [address] documented in this encounter Visit Diagnoses Not on filedocumented in this encounter Administered Medications Inactive Administered Medications - up to 3 most recent administrations Medication Order MAR Action Action Date Dose Rate Site acetaminophen (Tylenol) tablet 650 mg 650 mg, Oral, ONCE, 1 dose, On Mon06/22/20 at 0700, Maximum dose of acetaminophen is 4000 mg from all sources in 24 hours., Day of Surgery (Day of Procedure), Routine Given 06/22/2020 7:11 AM EDT 650 mg lactated ringers infusion 1,000 mL, at 100 mL/hr, Intravenous, CONTINUOUS, Starting on Mon06/22/20 at 0700, Until Mon06/22/20 at 1034, Day of Surgery (Day of Procedure) New Bag 06/22/2020 7:17 AM EDT 1,000 mLs 100 mL/hr scopolamine (TRANSDERM-SCOP) 1 mg over 3 days patch 1 patch 1 patch, Transdermal, ONCE, 1 dose, On Mon06/22/20 at 0700, Day of Surgery (Day of Procedure), Routine Patch Applied 06/22/2020 7:12 AM EDT 1 patch 01- Ear Behind (Left) documented in this encounter Active and Recently Administered Medications Times are shown in EDT. Scheduled Medication Order 06/20/2020 06/21/2020 06/22/2020 acetaminophen (Tylenol) tablet 650 mg (COMPLETED) 650 mg, Oral, ONCE, 1 dose, On Mon06/22/20 at 0700, Maximum dose of acetaminophen is 4000 mg from all sources in 24 hours., Day of Surgery (Day of Procedure), Routine 07 (Given - Provid er: Ninoska Kim RN) ceFAZolin (Ancef) 2g in dextrose 5% 100 mL (COMPLETED) 2 g, Intravenous, EVERY 3 HOURS, 1 dose, First dose on Mon06/22/20 at 0700, Administer over 30 Minutes, Intra-Operative (Intra-Procedure), Indication for (Active or Suspected): Prophylaxis 739 (Given - Provid er: Rachel Sierra CRNA) scopolamine (TRANSDERM-SCOP) 1 mg over 3 days patch 1 patch (COMPLETED) 1 patch, Transdermal, ONCE, 1 dose, On Mon06/22/20 at 0700, Day of Surgery (Day of Procedure), Routine 711 (Patch Applied - Provider: Ninoska Kim RN) Continuous Medication Order 06/20/2020 06/21/2020 06/22/2020 lactated ringers infusion (CANCELED) 1,000 mL, at 100 mL/hr, Intravenous, CONTINUOUS, Starting on Mon06/22/20 at 0700, Until Mon06/22/20 at 1034, Day of Surgery (Day of Procedure) 07 (New Bag - Prov ider: Ninoska Kim RN) PRN Medication Order 06/20/2020 06/21/2020 06/22/2020 bacitracin ointment (CANCELED) ONCE PRN, Starting on Mon06/22/20 at 0909, Until Mon06/22/20 at 1250, Intra-Operative (Intra-Procedure) 908 (Given - Provid er: Solomon Quiros MD - Comment: On surgical fiedl, used in dressing. Sent tube home with patient.) BUpivacaine (PF) (MARCAINE) 0.5 % (5 mg/mL) injection (CANCELED) ONCE PRN, Starting on Mon06/22/20 at 0808, Until Mon06/22/20 at 1250, Intra-Operative (Intra-Procedure), Routine 08 (Given - Provid er: Solomon Quiros MD - Comment: Mixed 1:1 with 1% lidocaine.)0900 (Given - Provider: Solomon Quiros MD - Comment: Mixed 1:1 with 1% lidocaine.) lidocaine (XYLOCAINE) 10 mg/mL (1 %) injection (CANCELED) ONCE PRN, Starting on Mon06/22/20 at 0808, Until Mon06/22/20 at 1250, Intra-Operative (Intra-Procedure), Routine 0808 (Given - Provid er: Solomon Quiros MD - Comment: Mixed 1:1 with 0.5% bupivacaine.)0900 (Given - Provider: Solomon Quiros MD - Comment: Mixed 1:1 with 0.5% bupivacaine.) documented in this encounter Care Teams Technical Rep Relationship Specialty Start Date End Date Gorge Man MD PCP - [facility] Medicine 11/28/18 02/18/21 documented as of this encounter
--- OUTSIDE RECORDS SUMMARY | 2024-09-14 13:06 | XMS_ITS | Encounter Summary ---
[place] [address] Care Team Providers Care Elementary Esl Teacher Name Role Phone Gorge Man MD Primary Care Provider [phone] Encounter Details Date Type Department Care Team (Late st Contact Info) Description 11/18/2020 Telephone [place] [phone] Karma Mejia Social History Tobacco Use Types [...] * Telephone Encounter - Karma Mejia - 11/18/2020 11:13 AM EST Patient calls in about her Zometa infusion and asks that it be ordered for here at as we stick her with a needle less. Will have order placed by dr pardo. Can be placed under smartset 1843 (Reclast) per infusion suite. documented in this encounter Plan of Treatment Upcoming Encounters Date Type Department Care Team (Late st Contact Info) Description 10/07/2024 11:30 AM EST Office Visit Dermatology at [facility] [address] [place] [address] Jo Ordaz MD [facility] [address] 12/13/2024 11:30 AM EST Appointment [place] [phone] 12/13/2024 1:00 PM EST Office [place] [phone] Kiet Pardo MD [facility] [place] [address] documented as of this encounter Visit Diagnoses Not on filedocumented in this encounter Care Teams Elementary Esl Teacher Relationship Specialty Start Date End Date Gorge Man MD PCP - General [facility] Medicine 11/28/18 02/18/21 documented as of this encounter
--- OUTSIDE RECORDS SUMMARY | 2024-09-14 13:06 | XMS_ITS | Encounter Summary ---
Author Organization [facility] Address [facility] [place] [address] Care Team Providers Care Spudder Name Role Phone Gorge Man MD Primary Care Provider [phone] Encounter Details Date Type Department Care Team (Latest Contact Info) Description 10/14/2020 10:00 AM EST Office Visit [place] [address] Sumit Sawyer MD [facility] [place] [address] A, Nurse Clinician None Stage 3a chronic [...] Sign Reading Time Taken Comments Blood Pressure 117/59 10/14/2020 9:55 AM EST Pulse 76 10/14/2020 9:55 AM EST Temperature - - Respiratory Rate - - Oxygen Saturation - - Inhaled Oxygen Concentration - - Weight 64.4 kg (142 lb) 10/14/2020 9:55 AM EST Height 170.2 cm (5' 7) 10/14/2020 9:55 AM EST Body Mass Index 22.24 10/14/2020 9:55 AM EST documented in this encounter Patient Instructions * Patient Instructions* Nataly Peters RN - 10/14/2020 10:00 AM EST Cut amlodipine in half and take 5mg. Check BP weekly, call if BP is greater than 130 Elevate legs above heart level for 1 hour before you go to bed. Call if you feel differently (consistent symptoms of nausea, vomiting, little appeal for food, itching, change in sleep patterns, worsening energy levels, shortness of breath). These are some of the signs of worsening kidney function. We will see you sooner if you are not feeling well. Please call. Karla GOLDBERG-drying rack changer Kidney Disease Nurse Specialist at [facility] Nephrology. documented in this encounter Progress Notes * Sumit Sawyer MD - 10/14/2020 10:00 AM EST [facility] [address] [place] [address] Reason for Clinic Visit: Systems Review and CKD management. 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 Her scleroderma has been relatively stable over the past year. She checks her blood pressure infrequently athome but in general it is in good range. Her major complaint today is nocturia x4. History obtained by RN Specialist: Amber was last seen in clinic on 10/02/19, eGFR - 54. She had a Right back desmoid resection in June 2020. Her GERD is well controlled with Nexium 40 mg BID. Has Joseph's esophagus and getting surveillance endoscopies ? Review of Systems:?? Sign/Symptom Comments Activity level/fatigue: No - active with stairs, walking. Scleroderma has caused diffuse skin thickening with resulting flexion contractures. Change in sleep patterns: No Nocturia: Yes - 4x a nigh Appetite changes: No - great, low salt [...] bleeds, or black stools. Mental Status Changes: No problem Recent Home Blood Pressure Control: Not regularly checking at home Recent Lipid Management: Not on lipid medications. Additional CCM Comments: How's your health been in the last 4 weeks : Poor, Fair, Good, Very Good, Excellent ? She is seeing keying machine operator at [facility] for the scleroderma management. She is seeing [...] Access/Surgeon: Had tunnelled dialysis catheter removed at [facility] IR in June 2010. No plans for fistula at this time. Kidney function has been stable and slowly improving ? Advanced Directives: On file in eDH. Immunizations Influenza PF, Split 09/23/2016, 10/17/2012 Labs: Recent Results (from the past 72 hour(s)) PTH Result Value Ref Range PTH 77 (H) 15 - 65 pg/mL Uric acid Result Value Ref Range Uric Acid 4.8 2.5 - 6.5 mg/dL Albumin Level Result Value Ref Range Albumin 4.8 3.2 - 5.2 gm/dL Phosphorus Result Value Ref Range Phosphorus 2.9 2.5 - 4.5 mg/dL Basic Metabolic Panel (non-fasting) Result Value Ref Range Glucose Lvl 97 65 - 199 mg/dL BUN 22 (H) 8 - 18 mg/dL Creatinine 1.14 0.70 - 1.20 mg/dL Sodium 139 135 - 145 mmol/L Potassium 4.7 3.5 - 5.0 mmol/L Chloride 104 98 - 107 mmol/L CO2 25 22 - 31 mmol/L Anion Gap 10 5 - 15 mmol/L Calcium 9.8 8.5 - 10.5 mg/dL eGFR 53 (L) >=60 mL/min/1.73 m?? eGFR 61 >=60 mL/min/1.73 m?? Hemogram Result Value Ref Range WBC 8.0 4.0 - 9.5 x10(3)/mcL RBC 4.25 4.00 - 5.21 x10(6)/mcL Hemoglobin 12.6 11.7 - 15.5 gm/dL Hematocrit 39.4 35.7 - 45.8 % MCV 92.7 82.6 - 94.4 fL MCH 29.6 27.1 - 32.0 pg MCHC 32.0 31.7 - 35.0 gm/dL Platelets 366 (H) 145 - 357 x10(3)/mcL RDWSD 48.4 (H) 37.0 - 46.0 fL RDWCV 14.2 (H) 11.5 - 14.1 % MPV 10.7 7.6 - 12.9 fL nRBC % Auto 0.0 % nRBC Abs Auto 0.000 0.000 - 0.000 x10(3)/mcL Differential, Automated Result Value Ref Range Neutrophils % 72.1 % Neutr Abs (ANC) 5.80 1.70 - 6.10 x10(3)/mcL Lymphocytes % 18.5 % Lymphocytes Abs 1.5 0.9 - 3.2 x10(3)/mcL Monocytes % 6.5 % Monocyte Abs 0.5 0.3 - 0.9 x10(3)/mcL Eosinophils % 2.1 % Eosinophils Abs 0.2 0.0 - 0.4 x10(3)/mcL Basophils % 0.7 % Basophils Abs 0.1 0.0 - 0.1 x10(3)/mcL Immature Gran % 0.10 % Yessica Gran Abs 0.01 0.00 - 0.04 x10(3)/mcL Protein/Creatinine Ratio, urine Result Value Ref Range U Creatinine 18 mg/dL U Protein Ran <6 0 - 12 mg/dL Prot/Cre Ratio <0.3 ratio PMH: Patient Active Problem List Diagnosis Code [...] Reactions ??? Other [Unclassified Drug] Lobster--weird sensation No outpatient medications have been marked as taking for the 10/14/20 encounter (Appointment) with Sumit Sawyer MD. Physical Exam: LMP 11/27/2014 Physical exam:BP 117/59 Pulse 76 Ht 170.2 cm (5' 7) Wt 64.4 kg (142 lb) LMP 11/27/2014 BMI 22.24 kg/m?? Pleasant woman with obvious scleroderma, lungs clear, cardiac exam unremarkable, extremities with 1+ edema. Check if examined Problem/Goal/Assessment/Plan: Problem: Chronic Kidney Disease Goal: Reduce rate of progression Education for CKD Stage specific issues Results: Stable CKD Summary: Assessment plan: The patient has some edema which I think is related to her amlodipine and renal disease. This is probably responsible for her nocturia. In this regard, I will have her decrease her amlodipine to 5 mg daily. She will monitor her blood pressure weekly while doing this to be sure thatit is not greater than 130 systolic. In addition she will try to elevate her legs above the level of her heart in the evening for at least an hour before bedtime. She will continue on the fosinopril for her scleroderma renal crisis. Renal function is currently stable Return to CKD clinic: documented in this encounter Plan of Treatment Upcoming Encounters Date Type Department Care Team (Late st Contact Info) Description 10/07/2024 11:30 AM EST Office Visit Dermatology at [place] [address] [place] [address] Jo Ordaz MD [facility] [place] [address] 12/13/2024 11:30 AM EST [place] [address] 12/13/2024 1:00 PM EST [place] [address] Kiet Pardo MD [facility] [place] [address] documented as of this encounter Visit Diagnoses Diagnosis Stage 3a chronic kidney disease documented in this encounter Care Teams Spudder Relationship Specialty Start Date End Date Gorge Man MD PCP - [facility] Medicine 11/28/18 02/18/21 documented as of this encounter
--- OUTSIDE RECORDS SUMMARY | 2024-09-14 13:06 | XMS_ITS | Encounter Summary ---
[place] [address] Care Team Providers Care Research Librarian Name Role Phone Gorge Man MD Primary Care Provider [phone] Reason for Visit * Auth/Cert Specialty Diagnoses / Procedures Referred By Wander hernandez Referred To Contact Diagnoses DESMOID MASS OF RIGHT BACK Procedures PRO RAD RESEC SOFT TISS BACK/FLANK RADICAL RESECTION TUMOR BACK, <5 CM (WRVU 15.72) Referral ID Status Reason Start Date Expiration Date Visits Re quested Visits Authorized [id number] 1 1 Encounter Details Date Type Department Care Team (Late st Contact Info) Description 06/22/2020 7:30 AM EDT - 06/22/2020 9:20 AM EDT Surgery [place] [address] Solomon Quiros MD [facility] [place] [address] RADICAL RESECTION TUMOR BACK OR FLANK; 5 CM OR GREATER (WRVU 22.55) Social History Tobacco Use Types Packs/Day Years [...] Sign Reading Time Taken Comments Blood Pressure 162/76 06/22/2020 7:02 AM EDT Pulse 78 06/22/2020 7:02 AM EDT Temperature 36.8 ??C (98.2 ??F) 06/22/2020 7:02 AM ED T Respiratory Rate 18 06/22/2020 7:02 AM EDT Oxygen Saturation 100% 06/22/2020 7:02 AM EDT Inhaled Oxygen Concentration - - [...] closest emergency room or call the hospital dye tub operator at [phone] and ask for physician over the horizon targeting supervisor covering for your physician. Questions or problems after 5pm or on a weekend: Call the [facility] dye tub operator at and ask for the physician over the horizon targeting supervisor covering for your doctor. * Patient Instructions* [...] Dr. Payne not indicated below. Please call [phone] to confirm date and time of your appointment if you do not hear from us inthe week or if you need to make changes. Future Appointments Date Time Provider Department Center 07/08/2020 11:30 AM Solomon Quiros MD [facility] SURG [facility] Call Doctor for: Worsening redness or drainage from your incision lasting longer than 5 days following surgery Any foul-smelling drainage from the incision Fevers greater than 101 degrees F Persistent nausea or vomiting (this may be related to opioid pain medications) Phone number for questions: [phone] before 5 PM weekdays [phone] after 5 PM and on weekends/holidays documented [...] again, temperature will be taken, patient and caregiver/funeral car driver will be given a mask to wear the entire time they are in the [facility] building. documented in this encounter H&P Notes * Solomon Quiros MD - 06/22/2020 7:16 AM EDT H&P accurate and up to date. No changes. Plan excision. documented in this encounter Miscellaneous Notes * Op Note - Solomon Quiros MD - 06/22/2020 9:16 AM EDT [facility] Operative Note Patient Name: Amber Wells : [id number] MR#: [id number] Case Date: 06/22/2020 Surgeon: Surgeon(s) and Role: [...] performed pursuant to and in compliance with [facility] operative policies. She was positioned prone position [...] at [facility] [address] [place] [address] Jo Ordaz MD [facility] [place] [address] 12/13/2024 11:30 AM EST Appointment [place] [address] 12/13/2024 1:00 PM EST Office Visit [place] [phone] Kiet Pardo MD [facility] [place] [address] documented as of this encounter Procedures Procedure Name Priority Date/Time Associated Diagnosis Comments SURGICAL PATHOLOGY REPORT Routine 06/22/2020 8:28 AM EDT SPECIMEN TO PATHOLOGY Routine 06/22/2020 8:28 AM EDT Rad Resect/Tumor, Soft Tissue Back/Flank, 5Cm Or Greater ([id number]) 06/22/2020 7:32 AM EDT DESMOID MASS OF RIGHT BACK documented in this encounter Results * Surgical Pathology Report (06/22/2020 8:28 AM EDT) Final Diagnosis [id number] ? Location: [facility] The signing pathologist has [...] Reid MD Verified: ??07/06/2020 ?Dermatopathologist Performed at: ??-[facility] Dept. of Pathology, [place], [place] ?Surgical Pathology DIAGNOSIS Right upper back, skin excision: - Fibromatosis, desmoid type, free of the margins in the examined planes of section - Incidental small ??neurofibroma and ??lentigines Electronically signed by: ??Mery Reid MD Verified: ??06/30/2020 ?Dermatopathologist Performed at: ??-[facility] Dept. of Pathology, [place], [place] DISCUSSION A potential prior procedure site has been identified upon additional gross examination. Histologic sections of that site are pending and the findings will be reported as an addendum. ADDITIONAL STUDIES This case was also reviewed by an additional intradepartmental soft tissue pathologist and dermatopathologist for consensus diagnosis. The report of the ??patient's prior biopsy ([id number]) has been examined. The lesional cells have [...] the subcutaneous tissue. Inked, serially sectioned and home office representative sections submitted in 24 cassettes as follows: . SPECIMEN PROCESSING ?A1: ??Right lateral tip ?A2-A23: ??[employer] cross-sections, lateral to medial (A2/3, 4/5, 6/7, 8-10, ? 11-13, 14-16, 17-19, 20/21, 22/23 = one section each). ?A24: ??Medial tip ??shb 07/06/2020 3:28 PM EDT [facility] SPECIMEN FROM SKIN / Unknown 06/22/2020 8:28 AM EDT 06/22/2020 8:28 AM EDT Solomon Quiros MD PATHOLOGY/CYTOLOGY O Y[place]ETTE Performing Organization Address City/[facility]/ZIP [place] [address] * Specimen to Pathology (06/22/2020 8:28 AM EDT) AP Specimen 06/22/2020 8:28 AM EDT 06/22/2020 8:28 AM EDT Narrative [facility] - 06/22/2020 8:28 AM EDT Specimen requisition ordered. ??Separate Pathology report to follow Solomon Quiros MD PATHOLOGY/CYTOLOGY O [place]TE Performing Organization Address [facility] [place] [address] documented in this encounter Visit Diagnoses Not [...] Given 06/22/2020 7:11 AM EDT 650 mg bacitracin ointment ONCE PRN, Starting on Mon06/22/20 at 0909, Until Mon06/22/20 at 1250, Intra-Operative (Intra-Procedure) Given 06/22/2020 9:09 AM EDT 1 Tube 19- Surgical Site BUpivacaine (PF) (MARCAINE) 0.5 % (5 mg/mL) injection ONCE PRN, Starting on Mon06/22/20 at 0808, Until Mon06/22/20 at 1250, Intra-Operative (Intra-Procedure), Routine Given 06/22/2020 9:00 AM EDT 12.5 mLs 19- Surgical Site Given 06/22/2020 8:08 AM EDT 7.5 mLs 19 - Surgical Site lactated ringers infusion 1,000 mL, at 100 mL/hr, Intravenous, CONTINUOUS, Starting on Mon06/22/20 at 0700, Until Mon06/22/20 at 1034, Day of Surgery (Day of Procedure) New Bag 06/22/2020 7:17 AM EDT 1,000 mLs 100 mL/hr lidocaine (XYLOCAINE) 10 mg/mL (1 %) injection ONCE PRN, Starting on Mon06/22/20 at 0808, Until Mon06/22/20 at 1250, Intra-Operative (Intra-Procedure), Routine Given 06/22/2020 9:00 AM EDT 12.5 mLs 19- Surgical Site Given 06/22/2020 8:08 AM EDT 7.5 mLs 19 - Surgical Site scopolamine (TRANSDERM-SCOP) 1 mg over 3 days patch 1 patch 1 patch, Transdermal, ONCE, 1 dose, On Mon06/22/20 at 0700, Day of Surgery (Day of Procedure), Routine Patch Applied 06/22/2020 7:12 AM EDT 1 patch 01- Ear Behind (Left ) documented in this encounter Active and Recently Administered Medications Times are shown in EDT. Scheduled Medication Order 06/20/2020 06/21/2020 06/22/2020 acetaminophen (Tylenol) tablet 650 mg (COMPLETED) 650 mg, Oral, ONCE, 1 dose, On Mon06/22/20 at 0700, Maximum dose of acetaminophen is 4000 mg from all sources in 24 hours., Day of Surgery (Day of Procedure), Routine 710 (Given - Provid er: Ninoska Kim RN) ceFAZolin (Ancef) 2g in dextrose 5% 100 mL (COMPLETED) 2 g, Intravenous, EVERY 3 HOURS, 1 dose, First dose on Mon06/22/20 at 0700, Administer over 30 Minutes, Intra-Operative (Intra-Procedure), Indication for (Active or Suspected): Prophylaxis 0740 (Given - Provid er: Rachel Sierra CRNA) [...] 1034, Day of Surgery (Day of Procedure) 0717 ([facility] ider: Ninoska Kim, [place]) PRN Medication Order 06/20/2020 06/21/2020 06/22/2020 bacitracin ointment (CANCELED) ONCE PRN, Starting on Mon06/22/20 at 0909, Until Mon06/22/20 at 1250, Intra-Operative (Intra-Procedure) 0909 (Given - Provid er: Solomon Quiros MD - Comment: On surgical fiedl, used in dressing. Sent tube home with patient.) BUpivacaine (PF) (MARCAINE) 0.5 % (5 mg/mL) injection (CANCELED) ONCE PRN, Starting on Mon06/22/20 at 0808, Until Mon06/22/20 at 1250, Intra-Operative (Intra-Procedure), Routine 08 (Given - Provid er: Solomon Quiros MD - Comment: Mixed 1:1 with 1% lidocaine.)09 (Given - Provider: Solomon Quiros MD - Comment: Mixed 1:1 with 1% lidocaine.) lidocaine (XYLOCAINE) 10 mg/mL (1 %) injection (CANCELED) ONCE PRN, Starting on Mon06/22/20 at 0808, Until Mon06/22/20 at 1250, Intra-Operative (Intra-Procedure), Routine 08 (Given - Provid er: Solomon Quiros MD - Comment: Mixed 1:1 with 0.5% bupivacaine.)09 (Given - Provider: Solomon Quiros MD - Comment: Mixed 1:1 with 0.5% bupivacaine.) documented in this encounter Care Teams Research Librarian Relationship Specialty Start Date End Date Gorge Man MD PCP - [facility] Medicine 11/28/18 02/18/21 documented as of this encounter
--- OUTSIDE RECORDS SUMMARY | 2024-09-14 13:06 | XMS_ITS | Encounter Summary ---
Author Organization [facility] [place] [address] Care Team Providers Care Crisis Specialist Name Role Phone Gorge Man MD Primary Care Provider [phone] Encounter Details Date Type Department Care Team (Late st Contact Info) Description 09/30/2020 Orders Only [place] [address] Karla Bailey RN Stage 3a chronic kidney [...] 11:30 AM EST Office Visit Dermatology at [facility] [address] [place] [address] Jo Ordaz MD [facility] [place] [address] 12/13/2024 11:30 AM EST Appointment [place] [phone] 12/13/2024 1:00 PM EST Office [place] [address] Kiet Pardo MD [facility] [place] [address] documented as of this encounter Results * Protein/Creatinine Ratio, urine (10/14/2020 9:31 AM EST) Creatinine, Urine 18 mg/dL [facility] Protein, Urine <6 0 - 12 mg/dL [facility] Protein / Creatinine Ratio, Urine <0.[address] [facility] Urine specimen (specimen) 10/14/2020 9:31 AM EST 10/14/2020 9:40 AM EST Narrative Resulting Agency Comment Spec In Lab Sumit Sawyer MD URINE ORDERABLES [facility] [place] [address] * (ABNORMAL) PTH (10/14/2020 9:26 AM EST) Parathyroid Hormone 77(H) 15 - 65 pg/mL [facility] Blood specimen (specimen) 10/14/2020 9:26 AM EST 10/14/2020 9:39 AM EST Narrative Resulting Agency Comment Spec In Lab Sumit Sawyer MD CHEMISTRY ORDERABLE S [facility] [place] [address] * Uric acid (10/14/2020 9:26 AM EST) Uric Acid 4.8 2.5 - 6.5 mg/dL [facility] Blood specimen (specimen) 10/14/2020 9:26 AM EST 10/14/2020 9:39 AM EST Narrative Resulting Agency Comment Spec In Lab Sumit Sawyer MD CHEMISTRY ORDERABLE S Performing Organization Address [facility] Co de Phone Number [facility] [place] [address] * Albumin Level (10/14/2020 9:26 AM EST) Albumin 4.8 3.2 - 5.2 gm/dL [facility] Blood specimen (specimen) 10/14/2020 9:26 AM EST 10/14/2020 9:39 AM EST Narrative Resulting Agency Comment Spec In Lab Sumit Sawyer MD CHEMISTRY ORDERABLE S Performing Organization Address [facility] Phone Number [facility] [place] [address] * Phosphorus (10/14/2020 9:26 AM EST) Phosphorus 2.9 2.5 - 4.5 mg/dL [facility] Blood specimen (specimen) 10/14/2020 9:26 AM EST 10/14/2020 9:39 AM EST Narrative Resulting Agency Comment Spec In Lab Sumit Sawyer MD CHEMISTRY ORDERABLE S Performing Organization Address [facility] Phone Number [facility] [place] [address] * (ABNORMAL) Basic Metabolic Panel (non-fasting) (10/14/2020 9:26 AM EST) Glucose 97 65 - 199 mg/dL [facility] Comment:Diabetes: >=200 mg/d L plus symptoms Blood Urea Nitrogen 22(H) 8 - 18 mg/dL [facility] Creatinine 1.14 0.70 - 1.20 mg/dL [facility] Sodium 139 135 - 145 mmol/L [facility] Potassium 4.7 3.5 - 5.0 mmol/L [facility] Comment: Please note: ??Patients with WBC >100,000 may have falsely elevated Potassium levels. ??For accurate Potassium quantification in these patients send serum separator tube (gold top) for subsequent determinations. ??Contact the Clinical Chemistry Laboratory if there are any questions. Chloride 104 98 - 107 mmol/L [facility] Carbon Dioxide 25 22 - 31 mmol/L [facility] Anion Gap 10 5 - 15 mmol/L [facility] Calcium 9.8 8.5 - 10.5 mg/dL [facility] Est Glomerular Filtration Rate 53(L) >=60 mL/min/1. 73 m?? [facility] Comment: The eGFR was calculated using the CKD-EPI equation. As with all creatinine based estimates of kidney function, eGFR values calculated with the CKD-EPI equation are not accurate in patients with acute kidney failure, extremes of body mass or the acutely ill. [email or web address] eGFR 61 >=60 mL/min/1. 73 m?? [facility] Comment: The eGFR was calculated using the CKD-EPI equation. As with all creatinine based estimates of kidney function, eGFR values calculated with the CKD-EPI equation are not accurate in patients with acute kidney failure, extremes of body mass or the acutely ill. [email or web address] Blood specimen (specimen) 10/14/2020 9:26 AM EST 10/14/2020 9:39 AM EST Narrative Resulting Agency Comment Spec In Lab Sumit Sawyer MD CHEMISTRY ORDERABLE S [facility] [address] documented in this encounter Visit Diagnoses Diagnosis Stage 3a chronic kidney disease documented in this encounter Care Teams Crisis Specialist Relationship Specialty Start Date End Date Gorge Man MD [facility] Medicine 11/28/18 02/18/21 documented as of this encounter
--- OUTSIDE RECORDS SUMMARY | 2024-09-14 13:06 | XMS_ITS | Encounter Summary ---
[place] [address] Care Team Providers Care Parts Counter Specialist Name Role Phone Gorge Man MD Primary Care Provider [phone] Reason for Referral * Diagnostic Test (Routine) - Closed Specialty Diagnoses / Procedures Referred By Wander hernandez Referred To Contact Radiology Diagnoses Desmoid fibromatosis Procedures MRI Upper Extremity Non Joint wwo Contrast Solomon Quiros MD [facility] [place] [address] [place] [address] Referral ID Status Reason Start Date Expiration Date V isits Requested Visits Authorized [id number] Closed Specialty Service Requested 10/04/2020 04/03/2022 1 1 Encounter Details Date Type Department Care Team (Late st Contact Info) Description 09/23/2020 11:45 AM EST Office Visit [place] [address] Solomon Quiros MD [facility] [place] [address] Desmoid fibromatosis Social History Tobacco [...] Sign Reading Time Taken Comments Blood Pressure 146/71 09/23/2020 11:44 AM EST Pulse 80 09/23/2020 11:44 AM EST Temperature 36.6 ??C (97.9 ??F) 09/23/2020 1 1:44 AM EST Respiratory Rate 16 09/23/2020 11:4 4 AM EST Oxygen Saturation 100% 09/23/2020 11: 44 AM EST Inhaled Oxygen Concentration - - Weight 65.3 kg (143 lb 14.4 oz) 020 11:44 AM EST Height - - Body Mass Index 22.54 07/08/2020 12:21 PM EDT documented in this encounter Progress Notes * Solomon Quiros MD - 09/23/2020 11:45 AM EST Amber returns to clinic for follow-up for desmoid tumor and to evaluate posterior scalp lesion.This was biopsied and indeterminant pathology (though unlikely desmoid). Since biopsy, she reports that lesion has gotten much smaller and less symtpomatic. DIAGNOSIS CONSULTATION CASE Outside slide(s) labeled [id number], collection date 07/31/2020. Soft tissue, left occipital scalp mass, core needle biopsy: - Fibrovascular connective tissue with prominent chronic inflammation including ??abundant eosinophils (see Discussion). On exam, small mass (~5mm) on posterior scalp. Surgical sites without evidence of recurrent desmoid Resume surveillance for desmoid. No intervention for scalp lesion Solomon Quiros MD, MPH Surgical Oncology documented in this encounter Plan of Treatment Upcoming Encounters Date Type Department Care Team (Late st Contact Info) Description 10/07/2024 11:30 AM EST Office Visit Dermatology at [facility] [address] [place] [address] Jo Ordaz MD [facility] [place] [address] 12/13/2024 11:30 AM EST Appointment [place] [address] 12/13/2024 1:00 PM EST Office Visit [place] [address] Kiet Pardo MD [facility] [address] documented as of this encounter Results * (ABNORMAL) MRI Upper [...] who have questions please contact the health managed care nurse that requested your imaging first. ? Electronically signed by: Debbie Briones MD, [facility] ([phone]), at 03/25/2021 4:05 PM --------ORIGINAL REPORT -------- [...] who have questions please contact the health managed care nurse that requested your imaging first. ? Electronically signed by: Debbie Briones MD, [facility] ([phone]), at 03/25/2021 9:42 AM Impressions 03/25/2021 9:42 [...] who have questions please contact the health managed care nurse that requested your imaging first. ? Electronically signed by: Debbie Briones MD, [facility] ([phone]), at 03/25/2021 9:42 AM Narrative 03/25/2021 9:42 [...] Agency Comment Unexpected Finding Solomon Quiros MD [facility] documented in this encounter Visit Diagnoses Diagnosis Desmoid fibromatosis Other benign neoplasm of connective and other soft tissue of unspecified site Desmoid fibromatosis Other benign neoplasm of connective and other soft tissue of unspecified site documented in this encounter Care Teams Parts Counter Specialist Relationship Specialty Start Date End Date Gorge Man MD PCP - [facility] Medicine 11/28/18 02/18/21 documented as of this encounter
--- OUTSIDE RECORDS SUMMARY | 2024-09-14 13:07 | XMS_ITS | Encounter Summary ---
Author Organization [facility] Address [facility] [place] [address] Care Team Providers Care Astronomy Teacher Name Role Phone Gorge Man MD Primary Care Provider [phone] Reason for Visit * Reason Comments Procedure ED&C Encounter Details Date Type Department Care Team (Late st Contact Info) Description 10/02/2019 11:15 AM EST Office Visit Dermatology at [address] [address] Jo Ordaz MD [facility] [place] [address] Inflamed seborrheic keratosis; Basal cell carcinoma (BCC) of anterior chest Social History Tobacco Use Types Packs/Day Years [...] this encounter Patient Instructions * Patient Instructions* [facility]olyn Gonzales, [facility] - 10/02/2019 11:15 AM EST ED&C Wound Care Instructions Your treatment today: You have had an Electrodesiccation and Curretage (ED&C) of your skin, which is a method to destroy skin cancer. This wound will heal without stitches. Allow 3-6 weeks for the wound to heal fully. If bleeding occurs, hold firm, constant pressure against the wound for 15-20 minutes (with no peeking). If bleeding continues, call the clinic or go to your local emergency department. Wound care instructions: Keep the bandage placed over the wound dry and intact for 24 hours. Afterwards, perform the following wound care daily: ?? Wash your hands. ?? Remove the bandage, clean the area with soap and water, and gently pat dry. ?? Apply a small amount of Vaseline and cover with a Band-Aid. ?? Repeat daily until the wound is healed fully. A small amount of yellow drainage is part of the normal healing process. The area might appear as asmall depression with redness around the edge of the wound; this is normal. Please contact the clinic if you notice any of the following signs of infection: increased pain, tenderness, drainage, or redness that becomes hot or hard around the wound. Contact information: On weekdays (8am to 5pm), please call the clinic at [phone]. After 5pm, and on weekends and holidays, please call the hospital at [phone] and ask for the Microelectronics Assembler Hspt Tutor. documented in this encounter Progress Notes * Jo Ordaz MD - 10/02/2019 11:15 AM EST DERMATOLOGY ESTABLISHED PATIENT CLINIC NOTE Date of service: 10/02/2019 Amber Wells : 1960 Provider: Jo Ordaz MD Chief Complaint Patient presents with ??? 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 Comment: This case shows an incisional biopsy of a spindle cell tumor with apparent myofibroblastic differentiation by IHC. The differential includes fibromatosis.??An excision is required to examine the tumor-normal interface for definitive diagnosis. ?? 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 05/27/2014 A.??Desmoid fibromatosis re-excision: Prior excision site with scar, inflammed granulation tissue and focus suspcious for residual desmoid fibromatosis??within 0.1 cm of caudal margin.??Comment:??Extensive repair and inflammatory changes complicate the evaulation for residual desmoid fibromatosis. IHC study suggests the possibility that residual lesion is present near the caudal margin, however extensive reactive change is also present there. It is recommended that additional surgery be delayeduntil further healing occurs and that the area be reevaluated clinically after healing is more complete. ?? 04/20/2016 Left anterior thigh, shave biopsy: Seborrheic keratosis.? 11/02/2017 Left extensor forearm, punch biopsy: Calcinosis cutis, incidental lentigo. Discussion:??The surrounding dermal collagen is homogenous with scant cellularity, which is insufficient for a diagnosis of fibromatosis. The accompanying dermal changes are of uncertain significance. Although we note the clinical history of scleroderma, calcinosis can occur in a broad range of clinical settings. While eccrine ducts in this sample do not appear compressed, CD34 staining shows an absence of dermal interstitial dendritic cells and EVG shows some broadened, compressed fibers that would raise considerationfor concomitant scleroderma. Clinical correlation is recommended to determine whether or not these findings represent the lesion in its entirety.?? 05/29/2019 Left chest, shave biopsy: BCC, superficial type, ulcerated, present at the peripheral specimen edges. - ED&C today (10/02/19) ?? Other: - Actinic keratoses - Seborrheic keratoses, some inflamed - Lentigines - Nevi?? Relevant Medical History: - Scleroderma, cutaneous calcinosis Family Skin History: Melanoma: Sister Procedure Screening Questions: Allergies to lidocaine or epinephrine: No Pacemaker/defibrillator: No Blood thinners: No Patient Preferences: Preferred name: Ambre Uses myD-H?: Yes Preferred contact method with results: myD-H or home phone Detailed message including biopsy results okay?: Yes Are there any other people with whom we may discuss your care?: (Mike) Preferred pharmacy: [facility] HPI Amber Wells is a 59 y.o. female, established patient last seen by me on 05/20/19 for a full skin exam. Here today for ED&C of a biopsy-proven BCC on the left chest. Patient inquires whether dark lesion on her left jaw line can be treated or removed. MEDS: Current Outpatient Medications Medication Sig Dispense Refill ??? sildenafil, antihypertensive, (REVATIO) 20 mg Tablet 2 tablets in am, 1 tablet in afternoon and2 tablets in pm 150 tablet 5 ??? cephALEXin (KEFLEX) 500 mg Capsule Take 1 capsule by mouth 4 times daily. 40 capsule 0 ??? estradiol (ESTRACE) 0.01 % (0.1 mg/gram) Cream 3x weekly 0 ??? acetaminophen-codeine (TYLENOL #3) 300-30 mg Tablet Take 2 tablets by mouth every 6 hours as needed for Pain. Reported on 03/29/2017 60 tablet 0 ??? amLODIPine (NORVASC) 10 mg Tablet Take 1 tablet by mouth daily. 90 tablet 3 ??? esomeprazole (NEXIUM) 40 mg Capsule, Delayed Release(E.C.) Take 1 capsule by mouth 2 times daily. 180 capsule 3 ??? fosinopril (MONOPRIL) 20 mg Tablet Take 1 tablet by mouth daily. 90 tablet 3 ??? glycerin, adult, Suppository daily as needed. [...] Take 400 Units by mouth daily. ??? lidocaine-prilocaine (EMLA) cream Apply topically as needed. 30 g 2 ??? Cholecalciferol, Vitamin D3, (VITAMIN D) 1,000 unit Cap Take 1 tablet by mouth daily. ??? nitroGLYcerin (NITROGLYN) 2 % ointment Place 0.5 inches onto the skin every 6 hours. No current facility-administered medications for this visit. ADR: Allergies Allergen Reactions ??? Other [Unclassified Drug] Lobster--weird sensation ROS: General: feeling well Skin: denies other skin complaints EXAM: General: NAD, pleasant, cooperative Skin: A focused skin examination of the left chest, significant for??the following: Significant Skin Findings: A. Left chest: 0.5 cm well-healed biopsy site. B. Left jawline: 0.4-0.6 cm inflamed, well-demarcated, pink-brown papule(s)/plaque(s) with waxy stuck-on appearance. ASSESSMENT/PLAN: A. Biopsy-Proven BCC - Reviewed pathology and ED&C procedure with patient. Bogart decision to proceed with ED&C today. - Patient denies allergies to lidocaine and epinephrine. - Patient denies having a pacemaker or defibrillator. Procedure: Destruction of lesion by electrodesiccation and curettage (ED&C) Location: As noted above. Discussed indications and expectations including risks and benefits. Verbal consent obtained. Skin prepped with alcohol. Local anesthesia with 1% xylocaine, 1/100,000 epinephrine. The entire lesion plus a small margin was treated. Post- curettage defect size: 0.9 cm. There were no complications; patient tolerated the procedure well. Wound dressed. Expectations (including discomfort management) andwound care reviewed. B. Inflamed Seborrheic Keratosis - Discussed benign nature of lesion and provided reassurance. - Due to irritation present on today's exam and history of symptoms, discussed removal with cryotherapy. - Patient elects to proceed with cryotherapy today. ?? Procedure: Destruction of benign lesion with cryotherapy (LN2). Location: Left jawline Number: Discussed procedure and expectations, including risks (especially hypopigmentation) and benefits. Verbal consent obtained. Frozen with LN2, 15-30 second thaw time, twice. There were no complications;patient tolerated the procedure well. Post-procedure expectations and wound care were reviewed. Follow up: RTC in May 2020 for a 1-year full skin exam; sooner if needed. Recall in system to schedule. Instructed patient to call with questions or concerns. I am documenting this encounter acting as the scribe for and in the presence of Dr. Ordaz: JILL Winkler I performed the above scribed service and agree with the accuracy of the documentation in this encounter. Jo Ordaz MD Asbestos Abatement Technician of Dermatology Department of Surgery [facility] documented in this encounter Plan of Treatment Upcoming Encounters Date Type Department Care Team (Late st Contact Info) Description 10/07/2024 11:30 AM EST Office Visit Dermatology at [facility] [address] [place] [address] Jo Ordaz MD [facility] [place] [address] 12/13/2024 11:30 AM EST Appointment [place] [address] 12/13/2024 1:00 PM EST Office [place] [address] Kiet Pardo MD [facility] [place] [address] documented as of this encounter Visit Diagnoses Diagnosis Inflamed seborrheic keratosis Basal cell carcinoma (BCC) of anterior chest documented in this encounter Care Teams Astronomy Teacher Relationship Specialty Start Date End Date Gorge Man MD PCP - [facility] Medicine 11/28/18 02/18/21 documented as of this encounter
--- OUTSIDE RECORDS SUMMARY | 2024-09-14 13:07 | XMS_ITS | Encounter Summary ---
[place] [address] Care Team Providers Care Corporate Tax Manager Name Role Phone Gorge Man MD Primary Care Provider [phone] Reason for Visit * Reason Onset Date Comments Questions 05/07/2019 Encounter Details Date Type Department Care Team (Late st Contact Info) Description 05/07/2019 Telephone [place] [phone] Antoine Jung, RN Questions Social History Tobacco Use Types Packs/Day Years [...] Telephone Encounter - Antoine Jung RN - 2019 1:02 PM EDT Letter faxed to provided number. * Telephone Encounter - Antoine Jung RN - 05/09/2019 8:25 AM EDT Images from the original note were not included. Yu Mcdonough, DO Antoine Jung RN Caller: Unspecified (2 days ago, ??9:06 AM) ?? I am happy to appeal this decision but I don't see any documentation in her chart or scanned documents about how to do that. She has scleroderma and will never be able to stop taking a BID PPI. Can you figure out how to appeal this? Do I need to write a letter or call for a peer to peer? * Telephone Encounter - Antoine Jung RN - 05/09/2019 8:21 AM EDT Called insurance, referred to provider # [phone]. Called provider number (reference #[id number]),referred to [facility], does appeals, call number [phone]. Called appeal number (ticketnumber [id number]), they state Approval of twice daily dosing for GERD is limited to 12 weeks. For continuation after 12 weeks, there must be a documented attempt to taper at once daily dosing of a PPI with an adjunctive H2 asa. A 12 week approval was authorized on 12/20/2018 (unit 4:). There has not be an attempt to taper at once daily PPI dosage WITH an adjunctive H2 asa. Advised patient with dx of scleroderma requiring bid dosing. May send additional info to [phone]. * Telephone Encounter - Antoine Jung RN - 05/08/2019 8:55 AM EDT Patient calls regarding Nexium. Has tried Omeprazole in past, worked but not as well as Nexium. Omeprazole was once per day. Does mention Dr. Berger previously prescribed Nexium. Patient questions if appeal should be completed or alternate medication. May leave message. * Telephone Encounter - Antoine Jung RN - 05/07/2019 10:33 AM EDT Patient calls clinic, leaves message. States was to be provided with alternative. Previous note: Health plan decision:?Denied ?? Quantity approved:?Approval of twice daily dosing for GERD is limited to 12 weeks. For continuation after 12 weeks, there must be a documented attempt to taper at once daily dosing of a PPI with an adjunctive H2 asa. A 12 week approval was authorized on 12/20/2018 (unit 4:). Therehas not be an attempt to taper at once daily PPI dosage WITH an adjunctive H2 asa. Returned call to patient, unavailable. Left message with call back number provided. documented in this encounter Plan of Treatment Upcoming Encounters Date Type Department Care Team (Late st Contact Info) Description 10/07/2024 11:30 AM EST Office Visit Dermatology at [place] [address] [place] [address] Jo Ordaz MD [facility] [place] [address] 12/13/2024 11:30 AM EST Appointment [place] [address] 12/13/2024 1:00 PM EST Office [place] [address] Kiet Pardo MD [facility] [place] [address] documented as of this encounter Visit Diagnoses Not on filedocumented in this encounter Care Teams Corporate Tax Manager Relationship Specialty Start Date End Date Gorge Man MD PCP - [facility] Medicine 11/28/18 02/18/21 documented as of this encounter
--- OUTSIDE RECORDS SUMMARY | 2024-09-14 13:07 | XMS_ITS | Encounter Summary ---
Author Organization [facility] [address] [address] Care Team Providers Care Fret Saw Operator Name Role Phone Gorge Man MD Primary Care Provider [phone] Encounter Details Date Type Department Care Team (Late st Contact Info) Description 05/12/2020 Ancillary Procedure Radiology Library at [facility] [place] [address] Gorge Man MD [address] [place] [address] [place] [address] Social History Tobacco Use Types Packs/Day Years [...] at [facility] [address] [place] [address] Jo Ordza MD [facility] [place] [address] 12/13/2024 11:30 AM EST Appointment [place] [address] 12/13/2024 1:00 PM EST Office Visit [place] [address] Kiet Pardo MD [facility] [place] [address] documented as of this encounter Procedures Procedure Name Priority Date/Time Associated Diagnosis Comments FILM LIBRARY STORAGE ONLY MR UPPER EXTREMITY Routine 05/12/2020 12:00 AM EDT documented in this encounter Results * Film Library- Storage Only MR Upper Extremity (05/12/2020 12:00 AM EDT) Narrative [facility] - 05/19/2020 11:09 AM EDT This exam is auto-finalizing. It's purpose is for storage only. Gorge Man MD IMG FILM LIBRARY ORD ERABLES [place], [place] documented in this encounter Visit Diagnoses Not on filedocumented in this encounter Care Teams Fret Saw Operator Relationship Specialty Start Date End Date Gorge Man MD PCP - General [facility] Medicine 11/28/18 02/18/21 documented as of this encounter
--- OUTSIDE RECORDS SUMMARY | 2024-09-14 13:07 | XMS_ITS | Encounter Summary ---
Author Organization [facility] Address [facility] [place] [address] Care Team Providers Care Administrative Staff Supervisor Name Role Phone Gorge Man MD Primary Care Provider [phone] Encounter Details Date Type Department Care Team (Late Contact Info) Description 06/21/2019 Orders [place] [address] Felipa Taveras MD [facility] [place] [address] Social History Tobacco Use Types Packs/Day Years [...] EST Office Visit Dermatology at [facility] [address] [place] [address] Jo Ordaz MD [facility] [address] 12/13/2024 11:30 AM EST Appointment [place] [address] 12/13/2024 1:00 PM EST Office [place] [address] Kiet Pardo MD [facility] [place] [address] documented as of this encounter Visit Diagnoses Not on filedocumented in this encounter Care Teams Administrative Staff Supervisor Relationship Specialty Start Date End Date Gorge Man MD PCP - [facility] Medicine 11/28/18 02/18/21 documented as of this encounter
--- OUTSIDE RECORDS SUMMARY | 2024-09-14 13:07 | XMS_ITS | Encounter Summary ---
Author Organization [facility] [place] [address] Care Team Providers Care Contact Person Name Role Phone Gorge Man MD Primary Care Provider [phone] Encounter Details Date Type Department Care Team (Late st Contact Info) Description 12/11/2018 Orders [place] [address] Yu Mcdonough [facility] [place] [address] Social History Tobacco Use Types Packs/Day Years [...] Dermatology at [facility] [address] [place] [address] Jo Ordaz MD [facility] [place] [address] 12/13/2024 11:30 AM EST Appointment [place] [address] 12/13/2024 1:00 PM EST Office [place] [address] Kiet Pardo MD [facility] [place] [address] documented as of this encounter Visit Diagnoses Not on filedocumented in this encounter Care Teams Contact Person Relationship Specialty Start Date End Date Gorge Man MD PCP - General [facility] Medicine 11/28/18 02/18/21 documented as of this encounter
--- OUTSIDE RECORDS SUMMARY | 2024-09-14 13:07 | XMS_ITS | Encounter Summary ---
[place] [address] Care Team Providers Care Beef Grader Name Role Phone Gorge Man MD Primary Care Provider [phone] Reason for Visit * Reason Onset Date Comments Prior Authorization 12/26/2019 Sildenafil Encounter Details Date Type Department Care Team (Late st Contact Info) Description 12/26/2019 Telephone [place] [address] Jodi Pressley Prior Authorization (Sildenafil) Social History Tobacco Use [...] * Telephone Encounter - Jodi Pressley - 12/26/2019 10:49 AM EST Medication Prior Authorization Grant Medication name/dose/directions: Sildenafil 20mg - 2 tablets in am, 1 tablet in afternoon and 2 tablets in pm Rationale for request: Raynaud's Disease Health plan: [place] Medicaid ([place]) Authorizing account maintenance representative name: Leah Faxed to health plan on: 12/26/19 Health plan decision: Approved Quantity approved: 150 per 30 days Authorization number: [id number] Start date: 12/26/19 End date: 12/26/20 documented in this encounter Plan of Treatment Upcoming Encounters Date Type Department Care Team (Late st Contact Info) Description 10/07/2024 11:30 AM EST Office Visit Dermatology at [place] [address] [place] [address] Jo Ordaz MD [facility] [address] 12/13/2024 11:30 AM EST Appointment [place] [address] 12/13/2024 1:00 PM EST Office [place] [address] Kiet Pardo MD [facility] [place] [address] documented as of this encounter Visit Diagnoses Not on filedocumented in this encounter Care Teams Beef Grader Relationship Specialty Start Date End Date Gorge Man MD PCP - [facility] Medicine 11/28/18 02/18/21 documented as of this encounter
--- OUTSIDE RECORDS SUMMARY | 2024-09-14 13:07 | XMS_ITS | Encounter Summary ---
Author Organization [facility] Address [facility] [place] [address] Care Team Providers Care Art Class Model Name Role Phone Gorge Man MD Primary Care Provider [phone] Reason for Visit * High Dollar Medication (Routine) - Closed Specialty Diagnoses / Procedures Referred By Wander hernandez Referred To Contact Plastic Surgery Diagnoses Raynaud's disease without gangrene Other specified mononeuropathies of bilateral upper limbs Procedures Auth Request for Medication TC ONABOTULINUMTOXINA, 1 UNIT, INJECTION DESTROY NERVE,EXTREM/TRUNK MUSCLES PRFM Andre Marroquin MD [facility] [place] [address] Andre Marroquin MD [facility] [place] [address] Referral ID Status Reason Start Date Expiration Date V isits Requested Visits Authorized [id number] Closed Consult, Test & Treat 10/27/2017 09/18/2021 9 9 Encounter Details Date Type Department Care Team (Late st Contact Info) Description 05/29/2019 1:30 PM EDT Office Visit Plastic Surgery at [facility] [address] [address] Andre Marroquin MD [facility] [place] [address] Raynaud's disease without gangrene Social [...] Progress Notes * Andre Marroquin MD - 05/29/2019 1:30 PM EDT Plastic Surgery Follow Up Note Reason for visit: F/U status post procedure Date of surgery: 10/07/16 Procedure(s): Ulnar artery transfer into cephalic vein Complications: None reported HPI: Amber Wells returns today in f/u for additional botox injections into her hands. Examination: Patient is alert, conversant, comfortable, ambulating Incision: CDI, healing well. No signs of infection Able to flex and extend at elbow, wrist, fingers with expected stiffness Hands: stable tight fibrotic skin, healed ulcers at the tips of the thumb, index, and small fingers, fingertip with delayed 2-3 sec CR. Procedures: Patient arrived with EMMLA cream already applied Alcohol and lidocaine gel skin prep 100 u of botox injected as follows: ?? 10u in region of common digital artery at thumb, radial index, 2nd web, 3rd web, 4th web, or 50U per hand. ??Both hands treated for a total of 100 Units. Botox information: Lot [id number] Expiration date: 08/2020 Impression: Amber Wells is a 59 y.o. 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 Please see the operative note for details. Today we proceeded with additional Botox injections to both hands, 50U each. Plan: Botox injections today, see procedure note Follow up 4-6 months for additional injections I, Sophie Engle, have performed the documentation for this encounter in the presence of and acting as a scribe for Andre Marroquin MD. documented in this encounter Plan of Treatment Upcoming Encounters Date Type Department Care Team (Late st Contact Info) Description 10/07/2024 11:30 AM EST Office Visit Dermatology at [facility] [place] [address] [place] [address] Jo Ordaz MD [facility] [place] [address] 12/13/2024 11:30 AM EST [place] [phone] 12/13/2024 1:00 PM EST Office [place] [address] Kiet Pardo MD [facility] [place] [address] Scheduled Orders Name Type Priority Associated Diagnoses Orde r Schedule Chemodenervation, cosmetic Dermatology Routine Raynaud's disease without gangrene Ordered: 05/29/2019 documented as of this encounter Visit Diagnoses Diagnosis Raynaud's disease without gangrene documented in this encounter Care Teams Art Class Model Relationship Specialty Start Date End Date Gorge Man MD PCP - General [facility] Medicine 11/28/18 02/18/21 documented as of this encounter
--- OUTSIDE RECORDS SUMMARY | 2024-09-14 13:07 | XMS_ITS | Encounter Summary ---
Author Organization [facility] [place] [address] Care Team Providers Care Bottling Room Worker Name Role Phone Gorge Man MD Primary Care Provider [phone] Encounter Details Date Type Department Care Team (Late st Contact Info) Description 03/16/2020 Orders [place] [address] Yu Mcdonough [facility] [place] [address] Social History Tobacco Use Types Packs/Day Years [...] Dermatology at [facility] [address] [place] [address] Jo Ordaz MD [facility] [address] 12/13/2024 11:30 AM EST Appointment [place] [phone] 12/13/2024 1:00 PM EST Office [place] [phone] Kiet Pardo MD [facility] [place] [address] documented as of this encounter Visit Diagnoses Not on filedocumented in this encounter Care Teams Bottling Room Worker Relationship Specialty Start Date End Date Gorge Man MD PCP - General [facility] Medicine 11/28/18 02/18/21 documented as of this encounter
--- OUTSIDE RECORDS SUMMARY | 2024-09-14 13:07 | XMS_ITS | Encounter Summary ---
Author Organization [facility] Address [facility] [place] [address] Care Team Providers Care Tank Assembler Name Role Phone Gorge Man MD Primary Care Provider [phone] Reason for Visit * Reason Comments Follow-up Botox for raynauds * High Dollar Medication (Routine) - Closed Specialty Diagnoses / Procedures Referred By Wander hernandez Referred To Contact Plastic Surgery Diagnoses Raynaud's disease without gangrene Other specified mononeuropathies of bilateral upper limbs Procedures Auth Request for Medication TC ONABOTULINUMTOXINA, 1 UNIT, INJECTION DESTROY NERVE,EXTREM/TRUNK MUSCLES PRFM Andre Marroquin MD [facility] [place] [address] Andre Marroquin MD [facility] [place] [address] Referral ID Status Reason Start Date Expiration Date V isits Requested Visits Authorized [id number] Closed Consult, Test & Treat 10/27/2017 09/18/2021 9 9 Encounter Details Date Type Department Care Team (Late st Contact Info) Description 10/02/2019 2:45 PM EST Office Visit Plastic Surgery at [facility] [address] [place] [address] Andre Marroquin MD [facility] [place] [address] Raynaud's disease without gangrene Social [...] Progress Notes * Sophie Engle H - 10/02/2019 2:45 PM EST Plastic Surgery Follow Up Note Reason for visit: F/U status post procedure Date of surgery: 10/07/16 Procedure(s): Ulnar artery transfer into cephalic vein Complications: None reported HPI: Amber Wells returns today in f/u for additional botox injections into her hands. She states that she has persisting ulcers on her long fingertip. She has been considering wearing a prosthetic finger which may help her decrease pressure on her fingertips. She is also inquiring if proceeding with a sympathectomy would be beneficial for her. Examination: Patient is alert, conversant, comfortable, ambulating Incision: CDI, healing well. No signs of infection Able to flex and extend at elbow, wrist, fingers with expected stiffness Hands: stable tight fibrotic skin, shallow ulcers at the tips of the left long and right ring, fingertip with delayed 2-3 sec CR. Procedures: Patient arrived with EMMLA cream already applied. Alcohol and lidocaine gel skin prep 100 u of botox injected as follows: Botox: 10u in region of common digital artery at thumb, radial index, 2nd web, 3rd web, 4th web, or 50U per hand. ??Both hands treated for a total of 100 Units. Expiration date: 08/2021 Lot number [id number] Impression: Amber Wells is a 59 y.o. 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 Please see the operative note for details. Today we proceeded with additional Botox injections to both hands, 50U each. Discussed with patient that proceeding with a dynamic finger splint could offer some protection but may be expensive and would notprovide sensation. In regards to sympathectomy I discussed with patient that this type of procedure may not be indicated for her as her arch and common digitals have been occluded, although they may have opened soon since her ulnar artery reconstruction. Plan: Botox injections today, see procedure note Follow up 4-6 months for additional injections Proceed with CTA left hand (External referral placed) Prescription for dynamic finger splint. I, Sophie Engle, have performed the documentation for this encounter in the presence of and acting as a scribe for Ander Marroquin MD. documented in this encounter Procedure Notes * Andre Marroquin MD - 10/02/2019 2:45 PM ESTAssociated Order(s): CHEMODENERVATION, COSMETIC Procedure(s): BOTOX DESTRUCTION PROCEDURE [...] at [facility] [address] [place] [address] Jo Ordaz MD [facility] [place] [address] 12/13/2024 11:30 AM EST Appointment [place] [phone] 12/13/2024 1:00 PM EST Office [place] [phone] Kiet Pardo MD [facility] [place] [address] documented as of this encounter Procedures Procedure Name Priority Date/Time Associated Diagnosis Comments BOTOX DESTRUCTION PROCEDURE PRFM Routine 10/02/2019 2:45 PM EST Raynaud's disease without gangrene documented in this encounter Results * BOTOX DESTRUCTION PROCEDURE PRFM (10/02/2019 2:45 PM EST) Narrative Andre Marroquin MD - 10/02/2019 2:45 PM EST Andre Marroquin MD ? 10/03/2019 ??9:29 AM 10u in region of common digital artery at thumb, radial index, 2nd web, 3rd web, 4th web, or 50U per hand. ??Both hands treated for a total of 100 Units. Andre Marroquin MD DERM PROCEDURE MIAH GUAMAN documented in this encounter Visit Diagnoses Diagnosis Raynaud's disease without gangrene documented in this encounter Care Teams Tank Assembler Relationship Specialty Start Date End Date Gorge Man MD PCP - [facility] Medicine 11/28/18 02/18/21 documented as of this encounter
--- OUTSIDE RECORDS SUMMARY | 2024-09-14 13:07 | XMS_ITS | Encounter Summary ---
[place] [address] Care Team Providers Care Varnish Thinner Name Role Phone Gorge Man MD Primary Care Provider [phone] Reason for Referral * Diagnostic Test (Routine) - Closed Specialty Diagnoses / Procedures Referred By Wander hernandez Referred To Contact Radiology Diagnoses Desmoid fibromatosis Procedures MRI Upper Extremity Non Joint wwo Contrast Breanna Ordoñez MD [facility] [place] [address] [place] [address] Referral ID Status Reason Start Date Expiration Date V isits Requested Visits Authorized [id number] Closed Specialty Service Requested 01/03/2019 04/03/2019 1 1 Reason for Visit * Diagnostic Test (Routine) - Closed Specialty Diagnoses / Procedures Referred By Wander hernandez Referred To Contact Radiology Diagnoses Desmoid fibromatosis Procedures MRI Upper Extremity Non Joint wwo Contrast Breanna Ordoñez MD [facility] [place] [address] [place] [address] Referral ID Status Reason Start Date Expiration Date V isits Requested Visits Authorized [id number] Closed Specialty Service Requested 01/03/2019 04/03/2019 1 1 Encounter Details Date Type Department Care Team (Late st Contact Info) Description 01/25/2019 8:31 AM EST - 01/25/2019 11:59 PM EST Hospital Encounter MRI [facility] [place] [address] Breanna Ordoñez MD [facility] [place] [address] Desmoid fibromatosis Discharge Disposition: Home Social History [...] inches onto the skin every 6 hours. ciprofloxacin (CIPRO) 250 mg Tablet take 1 tablet by mouth every 12 hours for 7 days 0 01/24/2019 05/29/2019 cephalexin (KEFLEX) 500 mg Capsule Take 1 capsule by mouth 4 times daily. 40 capsule 12/11/2018 05/29/2019 acetaminophen-codeine (TYLENOL #3) 300-30 mg Tablet Take 2 tablets by mouth every 6 hours as needed for Pain. Reported on 03/29/2017 60 tablet 12/11/2018 04/20/2022 sildenafil, antihypertensive, (REVATIO) 20 mg Tablet 2 tablets in am, 1 tablet in afternoon and 2 tablets in pm 150 tablet 11 11/28/2018 06/28/2019 amLODIPine (NORVASC) 10 mg Tablet Take 1 tablet by mouth daily. 90 tablet 3 11/28/2018 01/09/2020 esomeprazole (NEXIUM) 40 mg Capsule, Delayed Release(E.C.)Indicatio ns:CKD (chronic kidney disease) stage 3, GFR 30-59 ml/min,Scleroderma Take 1 capsule by mouth 2 times daily. 180 capsule 3 11/28/2018 02/14/2020 fosinopril (MONOPRIL) 20 mg TabletIndications:Scle roderma,CKD (chronic kidney disease) stage 3, GFR 30-59 ml/min Take 1 tablet by mouth daily. 90 tablet 3 11/28/2018 01/09/2020 LIDOCAINE 2 % Solution APPLY TO PAINFUL AREAS IF NEEDED 0 12/12/2016 03/24/2021 lidocaine-prilocaine (EMLA) cream Apply topically as needed. 30 g 2 05/21/2013 01/09/2020 documented as of this encounter Plan of Treatment Upcoming Encounters Date Type Department Care Team (Late st Contact Info) Description 10/07/2024 11:30 AM EST Office Visit Dermatology at [address] [address] Jo Ordaz MD [facility] [place] [address] 12/13/2024 11:30 AM EST [place]ment [place] [phone] 12/13/2024 1:00 PM EST [place] [phone] Kiet Pardo MD [facility] [place] [address] documented as of this encounter Procedures Procedure Name Priority Date/Time Associated Diagnosis Comments MRI UPPER EXTREMITY NON JOINT WITH/WO CONTRAST Routine 01/25/2019 10:12 AM EST Desmoid fibromatosis documented in this encounter Results * MRI Upper Extremity Non Joint wwo Contrast (01/25/2019 10:12 AM EST) Anatomical Region Laterality Modality Shoulder, Arm, Elbow, Forearm, Wrist, Hand Magnetic Resonance Impressions 01/25/2019 10:28 AM EST No significant change when compared with 09/18/2015. Unchanged thin band of signal abnormality and enhancement in the surgical bed could represent stable postsurgical changes. Unchanged thin band of signal abnormality and enhancement deep to the left subscapularis muscle when compared with 09/18/2015. Thank you for letting us participate in the care of this patient. For questions regarding this report, please contact the number below. ? Narrative 01/25/2019 10:28 AM EST EXAMINATION: MRI UPPER EXTREMITY NON JOINT WWO CONTRAST CLINICAL HISTORY: Desmoid fibromatosis TECHNIQUE: MRI of a portion of the left chest wall was performed without and with the intravenous administration of 13 mL of Dotarem in accordance with our institution's standardized functional soft tissue tumor protocol, including in-and [id number] sequences, diffusion-weighted imaging sequences, and dynamic contrast-enhanced sequences. COMPARISON: Multiple prior left chest wall MRIs ranging from 08/28/2014 through 10/06/2017. FINDINGS: 2 skin markers were placed at the site of focal concern at the left posterior chest wall. There is an unchanged platelike area of T2 bright signal abnormality and enhancement in the surgical bed at the superficial margin of the left paraspinal muscles, again measuring up to 3 mm in thickness (series 5 image 36). This could represent stable postsurgical change. Again present is a platelike area of T2 bright signal abnormality and enhancement deep to the left subscapularis muscle, now measuring up to 5 mm in thickness (series 5 image 44). This area of signal abnormality is significantly more conspicuous than on 08/28/2014 and 02/17/2015, but does not appear significantly changed from 09/18/2015. Procedure Note Nia Cardona MD - 01/25/2019 EXAMINATION: MRI UPPER EXTREMITY NON JOINT WWO CONTRAST CLINICAL HISTORY: Desmoid fibromatosis TECHNIQUE: MRI of a portion of the left chest wall was performed without and withthe intravenous administration of 13 mL of Dotarem in accordance with our institution's standardized functional soft tissue tumor protocol,including in-and [id number] sequences, diffusion-weighted imaging sequences, anddynamic contrast-enhanced sequences. COMPARISON: Multiple prior left chest wall MRIs ranging from 08/28/2014 [id number]/06/2017. FINDINGS: 2 skin markers were placed at the site of focal concern at the leftposterior chest wall. There is an unchanged platelike area of T2 bright signal abnormality and enhancement in the surgical bed at the superficial margin of the leftparaspinal muscles, again measuring up to 3 mm in thickness (series 5 image 36). Thiscould represent stable postsurgical change. Again present is a platelike area of T2 bright signal abnormality and enhancement deep to the left subscapularis muscle, now measuring up to 5mm in thickness (series 5 image 44). This area of signal abnormality issignificantly more conspicuous than on 08/28/2014 and 02/17/2015, but does not appear significantly changed from 09/18/2015. IMPRESSION No significant change when compared with 09/18/2015. Unchanged thin bandof signal abnormality and enhancement in the surgical bed could representstable postsurgical changes. Unchanged thin band of signal abnormality andenhancement deep to the left subscapularis muscle when compared with 09/18/2015. Thank you for letting us participate in the care of this patient. Forquestions regarding this report, please contact the number below. Electronically signed by: HERB Myers [facility] ([phone]),at 01/25/2019 10:28 AM Breanna Barreto MD IMG MRI ORDERABL ES documented in this encounter Visit Diagnoses Diagnosis Desmoid fibromatosis Other benign neoplasm of connective and other soft tissue of unspecified site documented in this encounter Administered Medications Inactive Administered Medications - up to 3 most recent administrations Medication Order MAR Action Action Date Dose Rate Site gadoterate meglumine (DOTAREM) 0.5 mmol/mL (376.9 mg/mL) injection 0-100 mL 0-100 mL, Intravenous, ONCE PRN, 1 dose, Starting on Mon01/25/19 at 0948, Until Mon01/25/19 at 1003, Per Protocol, Radiology Contrast, Routine Given 01/25/2019 10:03 AM EST 13 mLs documented in this encounter Care Teams Varnish Thinner Relationship Specialty Start Date End Date Gorge Man MD PCP - [facility] Medicine 11/28/18 02/18/21 documented as of this encounter
--- OUTSIDE RECORDS SUMMARY | 2024-09-14 13:07 | XMS_ITS | Encounter Summary ---
Author Organization [facility] [place] [address] Care Team Providers Care Parimutuel Ticket Cashier Name Role Phone Gorge Man MD Primary Care Provider Reason for Visit * Reason Comments Follow-up Encounter Details Date Type Department Care Team (Latest Contact Info) Description 01/25/2019 11:00 AM EST Office [place] [address] Andrew Berger MD [facility] [place] [address] Gastroesophageal reflux disease, esophagitis presence not specified; Joseph's esophagus without dysplasia Social History Tobacco Use Types Packs/Day [...] Sign Reading Time Taken Comments Blood Pressure 108/60 01/25/2019 11:23 AM EST Pulse 66 01/25/2019 11:23 AM EST Temperature - - Respiratory Rate - - Oxygen Saturation - - Inhaled Oxygen Concentration - - Weight 64.6 kg (142 lb 6.4 oz) 01/25/2019 11:23 AM EST Height 170.2 cm (5' 7) 01/25/2019 11:23 AM EST Body Mass Index 22.3 01/25/2019 11:23 AM EST documented in this encounter Progress Notes * Andrew Berger MD - 01/25/2019 11:00 AM EST GI Problem List: #Scleroderma/Dysmotility #Joseph's esophagus-last EGD 01/07 RECENT TESTING 1. Colonoscopy 04/04/13: normal. 2. Anorectal manometry 12/09/14: low anal canal pressures, weak EAS resting pressure, excellent EAS squeeze pressures, normal RAIR rules out Hirschsprung's disease. Evidence of mild rectal hypersensitivity given low MTV. Abnormal balloon expulsion test. 3. Sitzmark study May 2015: no markers present on day five. 4. Upper endoscopy 03/29/16: esophageal changes consistent with Joseph's; repeat EGD 01/10/18 (NDBE) 5. EUS 03/29/16: small, benign-appearing cysts. 6. Esophageal manometry 03/28/16: normal LES resting pressure and relaxation, normal UES resting pressure and relaxation, ineffective esophageal motility in the body of the esophagus. Only 30% of swallows were transmitted. HPI Comments: Returns for f/up. She is known to me from an endoscopy last year for follow-up of Joseph's esophagus associated with scleroderma. She has 2 cm of Joseph's esophagus without evidence for dysplasia on biopsies or Ocasio brush. 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 Matthews in the past. The summary of her testing is outlined above. Over the past yearshe has been having increasing problems with abdominal distention, constipation and a sense of incomplete evacuation. She drinks coffee in the morning which helps her move her bowels but does not uselaxatives. Her last colonoscopy was in 2012. She believes that the onset of her increasing difficult ies are associated with menopause. Current Outpatient Medications on File Prior to Visit Medication Sig Dispense Refill ??? acetaminophen-codeine (TYLENOL #3) 300-30 mg Tablet Take 2 tablets by mouth every 6 hours as needed for Pain. Reported on 03/29/2017 60 tablet 0 ??? sildenafil, antihypertensive, (REVATIO) 20 mg Tablet 2 tablets in am, 1 tablet in afternoon and2 tablets in pm 150 tablet 11 ??? amLODIPine (NORVASC) 10 mg Tablet Take [...] onto the skin every 6 hours. ??? ciprofloxacin (CIPRO) 250 mg Tablet take 1 tablet by mouth every 12 hours for 7 days 0 ??? cephalexin (KEFLEX) 500 mg Capsule Take 1 capsule by mouth 4 times daily. (Patient not taking: Reported on 01/25/2019) 40 capsule 0 No current facility-administered medications on file prior [...] numbness, weakness in extremities Objective: Physical Exam: Most Recent Vitals: 01/25/19 1123 BP: 108/60 Pulse: 66 Weight: 64.6 kg (142 lb 6.4 oz) Constitutional: Appears well-developed and well-nourished. Eyes: No scleral icterus. remainder of exam deferred Assessment and Plan: Dysmotility related to scleroderma associated with chronic constipation. She also has acid reflux disease and Joseph's esophagus which is well controlled on the PPI. Her current symptoms are likely in part related to dysmotility resulting in chronic constipation. It is also possible that she couldhave a component of small intestinal bacterial overgrowth although bloating does not seem to be hermain concern. Plan 1. I suggested she try MiraLAX on a daily basis while increasing her intake of water 2. We will arrange repeat colonoscopy as it has been more than 5 years since her last exam 3. Further management pending those results. She may benefit from physical therapy for her anorectal difficulties. All of this 25 minute visit spent in discussion and coordination of care regarding dysmotility. Andrew Berger MD senior bi architect Director, GI Endoscopy Section of Gastroenterology and Hepatology [place], [place] [id number] Cc:Gorge Man MD [address] [place] [address] documented in this encounter Plan of Treatment Upcoming Encounters Date Type Department Care Team (Late st Contact Info) Description 10/07/2024 11:30 AM EST Office Visit Dermatology at [address] [address] Jo Ordaz MD [facility] [place] [address] 12/13/2024 11:30 AM EST [place]ment [place] [address] 12/13/2024 1:00 PM EST Office [place] [phone] Kiet Pardo MD [facility] RHEUMATOLOGY [place], [place] [phone] documented as of this encounter Visit Diagnoses Diagnosis Gastroesophageal reflux disease, esophagitis presence not specified Joseph's esophagus without dysplasia Joseph's esophagus documented in this encounter Care Teams Parimutuel Ticket Cashier Relationship Specialty Start Date End Date oGrge Man MD PCP - [facility] Medicine 11/28/18 02/18/21 documented as of this encounter
--- OUTSIDE RECORDS SUMMARY | 2024-09-14 13:07 | XMS_ITS | Encounter Summary ---
Author Organization [facility] [place] [address] Care Team Providers Care Hemodialysis Charge Nurse Name Role Phone Gorge Man MD Primary Care Provider [phone] Encounter Details Date Type Department Care Team (Latest Contact Info) Description 10/02/2019 1:00 PM EST Laboratory Appointment Lab [address] [place] [phone] CKD (chronic kidney disease) stage 4, GFR 15-29 ml/min Social History Tobacco Use Types Packs/Day [...] Dermatology at [facility] [address] [place] [address] Jo Ordaz MD [facility] [place] [address] 12/13/2024 11:30 AM EST [place]ointment [place] [address] 12/13/2024 1:00 PM EST Office [place] [address] Kiet Pardo MD [facility] [place] [address] documented as of this encounter Procedures Procedure Name Priority Date/Time Associated Diagnosis Comments HC PARATHYROID HORMONE(PTH INTACT Routine 10/02/2019 10:35 AM EST CKD (chronic kidney disease) stage 4, GFR 15-29 ml/min HEMOGRAM Routine 10/02/2019 10:35 AM EST CKD (chronic kidney disease) stage 4, GFR 15-29 ml/min DIFFERENTIAL, AUTOMATED Routine 10/02/2019 10:35 AM EST CKD (chronic kidney disease) stage 4, GFR 15-29 ml/min HC VITAMIN D TOTAL-25 HYDROXY Routine 10/02/2019 10:35 AM EST CKD (chronic kidney disease) stage 4, GFR 15-29 ml/min HC CBC,PLT & AUTO DIFF Routine 10/02/2019 10:35 AM EST CKD (chronic kidney disease) stage 4, GFR 15-29 ml/min HC PHOSPHORUS, SERUM Routine 10/02/2019 10:35 AM EST CKD (chronic kidney disease) stage 4, GFR 15-29 ml/min HC ALBUMIN, SERUM Routine 10/02/2019 10: 35 AM EST CKD (chronic kidney disease) stage 4, GFR 15-29 ml/min BASIC METABOLIC PANEL Routine 10/02/2019 10:35 AM EST CKD (chronic kidney disease) stage 4, GFR 15-29 ml/min HC MICROALBUMIN, URINE Routine 10/02/2019 10:30 AM EST CKD (chronic kidney disease) stage 4, GFR 15-29 ml/min documented in this encounter Results * Differential, Automated (10/02/2019 10:35 AM EST) Neutrophil % 73.2 % [facility] Neutrophil Absolute 5.05 1.70 - 6.10 x10(3)/[facility] Lymph % 18.8 % [facility] Lymphocytes Abs 1.3 0.9 - 3.2 x10(3)/[facility]ORAT[facility] Monocyte % 5.4 % [facility] [place] [place] Monocyte Abs 0.4 0.3 - 0.9 x10(3)/[facility] LABORATORY Eos % 1.4 % [facility] Eosinophils Abs 0.1 0.0 - 0.4 x10(3)/[facility] Basophil % 0.9 % [facility] [place] [place] Baso Absolute 0.1 0.0 - 0.1 x10(3)/[facility] Immature Gran % 0.30 % [facility] Comment: Immature granulocytes(IG's)percentage and absolute count will include metamyelocytes, myelocytes, and promyelocytes. Blood smears from CBCs yielding IG's will be scanned manually for concordance. If this scan disagrees with the automated IG or if promyelocytes are noted, a manual differential will be performed. Immature Gran Absolute 0.02 0.00 - 0.04 x10(3)/[facility] LAB[facility] Blood specimen (specimen) 10/02/2019 10:35 AM EST 10/02/2019 10:51 AM EST Narrative Resulting Agency Comment Spec In Lab Sumit Sawyer MD HEMATOLOGY ORDERABL ES [facility] [place] [address] * (ABNORMAL) Hemogram (10/02/2019 10:35 AM EST) White Blood Cell 6.9 4.0 - 9.5 x10(3)/[facility] LABORATORY Red Blood Cell 4.38 4.00 - 5.21 x10(6)/ L [facility] Hemoglobin 13.4 11.7 - 15.5 gm/dL [facility] Hematocrit 42.5 35.7 - 45.8 % [facility] Mean Cell Volume 97.0(H) 82.6 - 94.4 fL [facility] Mean Cell Hemoglobin 30.6 27.1 - 32.0 pg [facility] Mean Cell Hemoglobin Concentration 31.5(L) 31.7 - 35.0 gm/dL [facility] Platelet 324 145 - 357 x10(3)/[facility] LABORAT[facility] RDW Standard Deviation 46.9(H) 37.0 - 46.0 [facility] RDW coefficient of variation 13.1 11.5 - 14.1 % [facility] Mean Platelet Volume 10.9 7.6 - 12.9 [facility] NRBC% auto 0.0 % [facility] NRBC Absolute 0.000 0.000 - 0.000 x10(3)/[facility] Blood specimen (specimen) 10/02/2019 10:35 AM EST 10/02/2019 10:51 AM EST Narrative Resulting Agency Comment Spec In Lab Sumit Sawyer MD HEMATOLOGY ORDERABL ES [facility] [place] [address] * (ABNORMAL) Basic Metabolic Panel (non-fasting) (10/02/2019 10:35 AM EST) Glucose 93 65 - 199 mg/dL [facility] Comment:Diabetes: >=200 mg/d L plus symptoms Blood Urea Nitrogen 19(H) 8 - 18 mg/dL [facility] Creatinine 1.13 0.70 - 1.20 mg/dL [facility] Sodium 142 135 - 145 mmol/L [facility] Potassium 4.7 3.5 - 5.0 mmol/L [facility] Comment: Please note: ??Patients with WBC >100,000 may have falsely elevated Potassium levels. ??For accurate Potassium quantification in these patients send serum separator tube (gold top) for subsequent determinations. ??Contact the Clinical Chemistry Laboratory if there are any questions. Chloride 106 98 - 107 mmol/L [facility] Carbon Dioxide 24 22 - 31 mmol/L [facility] Anion Gap 12 5 - 15 mmol/L [facility] Calcium 9.8 8.5 - 10.5 mg/dL [facility] Est Glomerular Filtration Rate 54(L) >=60 mL/min/1. 73 m?? [facility] Comment: The eGFR was calculated using the CKD-EPI equation. As with all creatinine based estimates of kidney function, eGFR values calculated with the CKD-EPI equation are not accurate in patients with acute kidney failure, extremes of body mass or the acutely ill. http://[employer]/DHMCnkf eGFR 62 >=60 mL/min/1. 73 m?? [facility] Comment: The eGFR was calculated using the CKD-EPI equation. As with all creatinine based estimates of kidney function, eGFR values calculated with the CKD-EPI equation are not accurate in patients with acute kidney failure, extremes of body mass or the acutely ill. http://[employer]/DHMCnkf Blood specimen (specimen) 10/02/2019 10:35 AM EST 10/02/2019 10:51 AM EST Narrative Resulting Agency Comment Spec In Lab Sumit Sawyer MD CHEMISTRY ORDERABLE S [facility] [place] [address] * Phosphorus (10/02/2019 10:35 AM EST) Phosphorus 3.1 2.5 - 4.5 mg/dL [facility] Blood specimen (specimen) 10/02/2019 10:35 AM EST 10/02/2019 10:51 AM EST Narrative Resulting Agency Comment Spec In Lab Sumit Saweyr MD CHEMISTRY ORDERABLE S Performing Organization Address [facility]/ZIP Co de Phone Number [facility] [place] [address] * Albumin Level (10/02/2019 10:35 AM EST) Albumin 4.5 3.2 - 5.2 gm/dL [facility] Blood specimen (specimen) 10/02/2019 10:35 AM EST 10/02/2019 10:51 AM EST Narrative Resulting Agency Comment Spec In Lab Sumit Sawyer MD CHEMISTRY ORDERABLE S Performing Organization Address City/[facility]/ZIP Co de Phone Number [facility] [place] [address] * PTH (10/02/2019 10:35 AM EST) Parathyroid Hormone 64 15 - 65 pg/mL [facility] Blood specimen (specimen) 10/02/2019 10:35 AM EST 10/02/2019 10:51 AM EST Narrative Resulting Agency Comment Spec In Lab Sumit Sawyer MD CHEMISTRY ORDERABLE S Performing Organization Address [facility] Co de Phone Number [facility] [place] [address] * Vitamin D, 25-Hydroxy (10/02/2019 10:35 AM EST) Vitamin D Total 25 OH 33 30 - 100 ng/mL [facility] Comment: As of 2019, 25-hydroxyvitamin D testing has moved from the [employer] to the [employer]. No substantial change in measured values is expected. Blood specimen (specimen) 10/02/2019 10:35 AM EST 10/02/2019 11:14 AM EST Narrative Resulting Agency Comment Spec In Lab Sumit Sawyer MD CHEMISTRY ORDERABLE S Performing Organization Address [facility] Co de Phone Number [facility] [place] [address] * (ABNORMAL) U Albumin/Cre Ratio (10/02/2019 10:30 AM EST) Albumin / Creatinin Ratio, Urine 141(H) 0 - 29 mcg/mg Cr [facility] Comment: Reference Ranges: <30 mcg/mg: [...] Supplements (2012) 2, 357? 362 Albumin, Urine 42.4 mg/L [facility] Creatinine, Urine 30 mg/dL [facility] Urine specimen (specimen) 10/02/2019 10:30 AM EST 10/02/2019 10:46 AM EST Narrative Resulting Agency Comment Spec In Lab Sumit Sawyer MD URINE ORDERABLES Performing Organization Address City/[facility] Co de Phone Number [facility] [place] [address] documented in this encounter Visit Diagnoses Diagnosis CKD (chronic kidney disease) stage 4, GFR 15-29 ml/min Chronic kidney disease, Stage IV (severe) documented in this encounter Care Teams Hemodialysis Charge Nurse Relationship Specialty Start Date End Date Gorge Man MD PCP - General [facility] Medicine 11/28/18 02/18/21 documented as of this encounter
--- OUTSIDE RECORDS SUMMARY | 2024-09-14 13:07 | XMS_ITS | Encounter Summary ---
Author Organization [facility] Address [facility] [place] [address] Care Team Providers Care Knit Tubing Dyer Name Role Phone Gorge Man MD Primary Care Provider Encounter Details Date Type Department Care Team (Late Contact Info) Description 06/21/2019 Orders [place] [address] Felipa Taveras MD [facility] [place] [address] Social History Tobacco Use Types Packs/Day Years [...] 11:30 AM EST Office Visit Dermatology at [facility] [address] [place] [address] Jo Ordaz MD [facility] [place] [address] 12/13/2024 11:30 AM EST Appointment [place] [phone] 12/13/2024 1:00 PM EST Office [place] [phone] Kiet Pardo MD [facility] [address] documented as of this encounter Visit Diagnoses Not on filedocumented in this encounter Care Teams Knit Tubing Dyer Relationship Specialty Start Date End Date Gorge Man MD PCP - [facility] Medicine 11/28/18 02/18/21 documented as of this encounter
--- OUTSIDE RECORDS SUMMARY | 2024-09-14 13:07 | XMS_ITS | Encounter Summary ---
Author Organization [facility] [place] [address] Care Team Providers Care Curriculum And Assessment Director Name Role Phone Gorge Man MD Primary Care Provider [phone] Reason for Visit * Reason Comments Medication Refill Encounter Details Date Type Department Care Team (Late st Contact Info) Description 01/17/2020 [place] [address] Shaun Grant MD [facility] [place] [address] Social History Tobacco Use Types Packs/Day Years [...] Visit Dermatology at [facility] [address] [place] [address] Jo Ordaz MD [facility] [place] [address] 12/13/2024 11:30 AM EST [place]ointment [place] [address] 12/13/2024 1:00 PM EST Office [place] [address] Kiet Pardo MD [facility] [place] [address] documented as of this encounter Visit Diagnoses Not on filedocumented in this encounter Care Teams Curriculum And Assessment Director Relationship Specialty Start Date End Date Gorge Man MD PCP - [facility] Medicine 11/28/18 02/18/21 documented as of this encounter
--- OUTSIDE RECORDS SUMMARY | 2024-09-14 13:07 | XMS_ITS | Encounter Summary ---
[place] [address] Care Team Providers Care Hospitalist Nocturnist Physician Name Role Phone Gorge Man MD Primary Care Provider [phone] Reason for Visit * Reason Onset Date Comments Prior Authorization 03/28/2019 Encounter Details Date Type Department Care Team (Late st Contact Info) Description 03/28/2019 Telephone [place] [phone] Jodi Pressley Prior Authorization Social History Tobacco [...] * Telephone Encounter - Jodi Pressley - 03/28/2019 11:43 AM EDT Medication Prior Authorization Ceasar ? Medication name/dose/directions: Esomeprazole DR 40mg - twice daily ?? Rationale for request: GERD ?? Health plan: [place] Medicaid (Fax) ?? Authorizing event representative name: Leah ?? Faxed to health plan on: 03/28/19 ?? Health plan decision: Denied ?? Quantity approved: Approval of twice daily dosing for GERD [...] PPI dosage WITH an adjunctive H2 asa. ?? Authorization number: [id number] ?? Start date: End date: documented in this encounter Plan of Treatment Upcoming Encounters Date Type Department Care Team (Late st Contact Info) Description 10/07/2024 11:30 AM EST Office Visit Dermatology at [address] [address] Jo Ordaz MD [facility] [address] 12/13/2024 11:30 AM EST Appointment [place] [address] 12/13/2024 1:00 PM EST Office Visit [place] [address] Kiet Pardo MD [facility] [place] [address] documented as of this encounter Visit Diagnoses Not on filedocumented in this encounter Care Teams Hospitalist Nocturnist Physician Relationship Specialty Start Date End Date Gorge Man MD PCP - [facility] Medicine 11/28/18 02/18/21 documented as of this encounter
--- OUTSIDE RECORDS SUMMARY | 2024-09-14 13:07 | XMS_ITS | Encounter Summary ---
Author Organization [facility] [place] [address] Care Team Providers Care Welder Apprentice Arc Name Role Phone Gorge Man MD Primary Care Provider [phone] Reason for Visit * Reason Onset Date Comments Medication Refill 06/28/2019 Encounter Details Date Type Department Care Team (Late st Contact Info) Description 06/28/2019 Ref[place] [address] Yu Mcdonough, [facility] [place] [address] Social History Tobacco Use Types Packs/Day Years [...] [facility] [address] [place] [address] Jo Odraz MD [facility] [place] [address] 12/13/2024 11:30 AM EST Appointment Pulmonology at [place] [phone] 12/13/2024 1:00 PM EST Office [place] [phone] Kiet Pardo MD [facility] [place] [address] documented as of this encounter Visit Diagnoses Not on filedocumented in this encounter Care Teams Welder Apprentice Arc Relationship Specialty Start Date End Date Gorge Man MD PCP - General [facility] Medicine 11/28/18 02/18/21 documented as of this encounter
--- OUTSIDE RECORDS SUMMARY | 2024-09-14 13:07 | XMS_ITS | Encounter Summary ---
Author Organization [facility] [place] [address] Care Team Providers Care Plate Painter Apprentice Name Role Phone Gorge Man MD Primary Care Provider [phone] Encounter Details Date Type Department Care Team (Late st Contact Info) Description 05/21/2020 External Results [place] [address] Provider, Scanning Social History Tobacco Use Types [...] Visit Dermatology at [facility] [address] [place] [address] Jo Ordaz MD [facility] [place] [address] 12/13/2024 11:30 AM EST [place]oint[place] [address] 12/13/2024 1:00 PM EST [place] [address] Kiet Pardo MD [facility] RHEUMATOLOGY [place] [phone] documented as of this encounter Procedures Procedure Name Priority Date/Time Associated Diagnosis Comments SURGICAL PATHOLOGY SCAN Routine 05/21/2020 documented in this encounter Results * Scan Doc: Surgical Pathology (05/21/2020) Historical Provider MD MEDIA MGR SCAN EX T ORDR/RSLT documented in this encounter Visit Diagnoses Not on filedocumented in this encounter Care Teams Plate Painter Apprentice Relationship Specialty Start Date End Date Gorge Man MD PCP - [facility] Medicine 11/28/18 02/18/21 documented as of this encounter
--- OUTSIDE RECORDS SUMMARY | 2024-09-14 13:07 | XMS_ITS | Encounter Summary ---
Author Organization Formerly [facility] Address [facility] [place] [address] Care Team Providers Care Model Maker Firearms Name Role Phone Gorge Man MD Primary Care Provider [phone] Encounter Details Date Type Department Care Team (Late st Contact Info) Description 05/29/2019 Telephone [place] [address] Andre Marroquin MD [facility] [place] [address] Social History Tobacco Use Types Packs/Day Years [...] Miscellaneous Notes * Telephone Encounter - Sophie Engle - 05/29/2019 8:15 AM EDT Left a message for patient to confirm that she does want Botox today during Dr. Marroquin's apt. documented in this encounter Plan of Treatment Upcoming Encounters Date Type Department Care Team (Late st Contact Info) Description 10/07/2024 11:30 AM EST Office Visit Dermatology at [facility] [address] [place] [address] Jo Ordaz MD [facility] [place] [address] 12/13/2024 11:30 AM EST App[place]ment [place] [address] 12/13/2024 1:00 PM EST Office [place] [phone] Kiet Pardo MD [facility] [place] [address] documented as of this encounter Visit Diagnoses Not on filedocumented in this encounter Care Teams Model Maker Firearms Relationship Specialty Start Date End Date Gorge Man MD PCP - General [facility] Medicine 11/28/18 02/18/21 documented as of this encounter
--- OUTSIDE RECORDS SUMMARY | 2024-09-14 13:07 | XMS_ITS | Encounter Summary ---
Author Organization [facility] [place] [address] Care Team Providers Care Medical Aides Teacher Name Role Phone Gorge Man MD Primary Care Provider [phone] Encounter Details Date Type Department Care Team (Late st Contact Info) Description 01/31/2019 9:30 AM EDT - 01/31/2019 10:15 AM EDT [place] [address] Andrew Berger MD [facility] [place] [address] COLONOSCOPY, DIAGNOSTIC (WRVU 3.26) Social History Tobacco Use Types Packs/Day Years [...] Sign Reading Time Taken Comments Blood Pressure 115/63 01/31/2019 9:09 AM EDT Pulse 79 01/31/2019 9:09 AM EDT Temperature 36.9 ??C (98.4 ??F) 01/31/2019 9:09 AM ED T Respiratory Rate 16 01/31/2019 9:09 AM EDT Oxygen Saturation 98% 01/31/2019 9:09 AM EDT Inhaled Oxygen Concentration - - Weight 63.5 kg (140 lb) 01/31/2019 9:09 AM EDT Height 170.2 cm (5' 7) 01/31/2019 9:09 AM EDT Body Mass Index 21.93 01/31/2019 9:09 AM EDT documented in this encounter Discharge Instructions * Discharge Instructions* Micaela Mchugh RN - 01/31/2019 10:33 AM EDT Images from the original note were not included. Learning About Colonoscopy What is a colonoscopy? A colonoscopy is a test (also called a procedure) that lets a doctor look inside your large intestine. The doctor uses a thin, lighted tube called a colonoscope. The doctor uses it to look for small growths called polyps, colon or rectal cancer (colorectal cancer), or other problems like bleeding. During the procedure, the doctor can take samples of tissue. The samples can then be checked for cancer or other conditions. The doctor can also take out polyps. How is colonoscopy done? This procedure is done in a doctor's office or a clinic or hospital. You will get medicine to help you relax and not feel pain. Some people find that they do not remember having the test because of the medicine. The doctor gently moves the colonoscope, or scope, through the colon. The scope is also a small video camera. It lets the doctor see the colon and take pictures. A colonoscopy usually takes 30 to 45 minutes. It may take longer if the doctor has to remove polyps. How do you prepare for the procedure? You need to clean out your colon before the procedure so the doctor can see all of your colon. You may start the cleaning process a day or two before the test. This depends on which colon prep yourdoctor recommends. To clean your colon, you stop eating solid foods and drink only clear liquids. You can have water, tea, coffee, clear juices, clear broths, flavored ice pops, and gelatin (such as Jell-O). Do not drink anything red or purple, such as grape juice or fruit punch. And do not eat red or purple foods, such as grape ice pops or arvizu gelatin. The day or night before the procedure, you drink a large amount of a special liquid. This causes loose, frequent stools. You will go to the bathroom a lot. It is very important to drink all of the colon prep liquid. If you have problems drinking the liquid, call your doctor. For many people, the prep is worse than the test. It may be uncomfortable, and you may feel hungry on the clear liquid diet. Some people do not go to work or do their usual activities on the day of the prep. Arrange to have someone take you home after the test. What can you expect after a colonoscopy? The nurses will watch you for 1 to 2 hours until the medicines wear off. Then you can go home. You will need a ride. Your doctor will tell you when you can eat and do your usual activities. Your doctor will talk to you about when you will need your next colonoscopy. The results of your test and your risk for colorectal cancer will help your doctor decide how often you need to be checked. Follow-up care is a cardenas part of your treatment and safety. Be sure to make and go to all appointments, and call your doctor if you are having problems. It's also a good idea to know your test resultsand keep a list of the medicines you take. Where can you learn more? Visit our health information library at [email or web address]. You can also view health information on Zentyal, your personal patient account. Log in or sign uptoday. Enter Z368 in the search box to learn more about Learning About Colonoscopy. Current as of: February 13, 2018 Content Version: 11.9 ?? [id number] [employer]albook. Care instructions adapted under license by [facility]. If you have questions about a medical condition or this instruction, always ask your healthcare professional. [employer] disclaims any warranty or liability for your use of this information. * Patient Instructions* Andrew Berger MD - 01/31/2019 10:42 AM EDT Please see Recommendations in the Provation [...] 3 11/28/2018 02/14/2020 fosinopril (MONOPRIL) 20 mg TabletIndications:Jaimie davila,CKD (chronic kidney disease) stage 3, GFR 30-59 ml/min Take 1 tablet by mouth daily. 90 tablet 3 11/28/2018 01/09/2020 LIDOCAINE 2 % Solution APPLY TO PAINFUL AREAS IF NEEDED 0 12/12/2016 03/24/2021 lidocaine-prilocaine (EMLA) cream Apply topically as needed. 30 g 2 05/21/2013 01/09/2020 documented as of this encounter H&P Notes * Rishi Dela Cruz MD - 01/31/2019 9:38 AM EDT PROBLEM LIST Patient Active Problem List Diagnosis Code ??? Anemia of chronic renal failure, stage 4 (severe) N18.4, D63.1 ??? CKD (chronic kidney disease) stage 4, GFR 15-29 ml/min N18.4 ??? GERD (gastroesophageal reflux disease) K21.9 ??? Scleroderma M34.9 ??? Raynaud's disease I73.00 ??? AK (actinic keratosis) L57.0 ??? Solar lentigo L81.4 ??? Multiple nevi D22.9 ??? 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 Altered bowel habits R19.4 ??? Other disorder of muscle, ligament, and fascia M62.9 ??? Fecal incontinence R15.9 ??? Raynaud phenomenon I73.00 ??? Swelling of extremity, right M79.89 ??? Raynaud's disease without gangrene I73.00 ??? Joseph's esophagus K22.70 HISTORY OF PRESENT ILLNESS Amber Wells is a 58 y.o. woman with scleroderma and pulmonary hypertension who presents for surveillance colonoscopy. MEDICATIONS No current facility-administered medications on file prior to encounter. Current Outpatient Medications on File Prior to Encounter Medication Sig Dispense Refill ??? ciprofloxacin (CIPRO) 250 mg Tablet take 1 tablet by mouth every 12 hours for 7 days 0 ??? sildenafil, antihypertensive, (REVATIO) 20 mg [...] by mouth daily. 90 tablet 3 ??? cephalexin (KEFLEX) 500 mg Capsule Take 1 capsule by mouth 4 times daily. 40 capsule 0 ??? acetaminophen-codeine (TYLENOL #3) 300-30 mg [...] the skin every 6 hours. PHYSICAL EXAM: Blood pressure 115/63, pulse 79, temperature 36.9 ??C (98.4 ??F), temperature source Oral, resp. rate 16, height 170.2 cm (5' 7), weight 63.5 kg (140 lb), last menstrual period 11/27/2014, SpO2 98 %. GEN: Alert, cooperative. Pleasant. In NAD MP II ASA III HEENT: No oropharyngeal lesions. Neck supple. No masses. Thyroid symmetric LUNGS: CTAB CARD: RRR without m/g/r ABD: Non-distended. Active BS. Soft. Benign. No masses. No HSM. No succussion splash. No bruits RECENT LABS No results found for this or any previous visit (from the past 24 hour(s)). ASSESSMENT AND PLAN Amber Wells is a 58 y.o. woman who presents for endoscopic evaluation. Risks extensively discussed including bleeding, infection, reaction to anesthesia, perforation, pancreatitis (if applicable), bile duct injury (if applicable), missing a cancer (if applicable) and/or other unforseen complic ation. Consent signed and patient well informed of the risks of the procedure. documented in this encounter Miscellaneous Notes * Op Note - Andrew Berger MD - 01/31/2019 10:42 AM EDT [facility] [place] [facility] Operative Note Patient Name: Amber Wells : [id number] MR#: [id number] Case Date: 01/31/2019 Surgeon: Surgeon(s) and Role: * Andrew Berger MD - Primary Preoperative diagnosis: 5 yr surv from 04/04/13 Postoperative diagnosis: * No post-op diagnosis entered * Procedure(s) (LRB): COLONOSCOPY, DIAGNOSTIC (N/A) Full procedure note is documented under the Procedure section of eDH. documented in this encounter Plan of Treatment Upcoming Encounters Date Type Department Care Team (Late st Contact Info) Description 10/07/2024 11:30 AM EST Office Visit Dermatology at [facility] [address] [place] [address] Jo Ordaz MD [facility] [place] [address] 12/13/2024 11:30 AM EST App[place] [address] 12/13/2024 1:00 PM EST [place] [address] Kiet Pardo MD [facility] [place] [address] documented as of this encounter Procedures Procedure Name Priority Date/Time Associated Diagnosis Comments SURGICAL PATHOLOGY REPORT Routine 01/31/2019 10:24 AM EDT SPECIMEN TO PATHOLOGY Routine 01/31/2019 10:24 AM EDT COLONOSCOPY, DIAGNOSTIC (WRVU 3.26) 01/31/2019 9:46 AM EDT 5 yr surv from 04/04/13 COLONOSCOPY Routine 01/31/2019 9:31 AM EDT documented in this encounter Results * Surgical Pathology Report (01/31/2019 10:24 AM EDT) Final Diagnosis [id number] ? Location: 4T; EA09; A The signing pathologist has (i) examined the relevant preparation(s) for the specimen(s) and (ii) rendered or confirmed the diagnosis(es). . ?Surgical Pathology DIAGNOSIS Sigmoid colon, ??polypectomy: Hyperplastic polyp. CR-PX Electronically signed by: ??Danny Rowland MD Verified: ??02/04/2019 ?Pathologist Performed at: ??-[facility] [place] Dept. of Pathology, [place], [place] CLINICAL INFORMATION Specimen Submitted: A - Sigmoid colon polyp 5mm Clinical History and Diagnosis: 58-year-old female screening colonoscopy SPECIMEN PROCESSING A - Labeled/Fixativ e: Sigmoid colon polyp 5 mm, formalin. Quantity/Size: Single, 0.3 cm. Tissue Description: Soft, pink tissue. Sections/Proces sing: Submitted en toto ??in 1 cassette labeled A1. ??sns 02/04/2019 2:37 PM EDT [facility] GI Biopsy 01/31/2019 10:2 4 AM EDT 01/31/2019 10:24 AM EDT Andrew Berger MD PATHOLOGY/CYTOLOGY O [facility] [place] [address] * Specimen to Pathology (01/31/2019 10:24 AM EDT) AP Specimen 01/31/2019 10:2 4 AM EDT 01/31/2019 1:02 PM EDT Narrative [facility] - 01/31/2019 1:02 PM EDT Specimen requisition ordered. ??Separate Pathology report to follow Resulting Agency Comment Spec In Lab Andrew Berger MD PATHOLOGY/CYTOLOGY O [facility]TE [facility] [place] [address] * COLONOSCOPY (01/31/2019 9:31 AM EDT) COLONOSCOPY [facility] Endoscopy Procedure Date: 01/31/2019 9:31 AM ? Patient Name: Amber Wells ? N: [id number] ? Date of : 1960 ? Age: 58 ? Order #: [id number] ? Instrument Name: [id number] ? Procedure: ? Colonoscopy Indications: ? Abdominal pain, Constipation Providers: ? Andrew Berger MD, Davin Man ? Tamika Patterson, Urologist Physician Referring MD: ?Gorge Man MD Medicines: ? Monitored Anesthesia [...] by the physician, the ? nurse, the cinder pit crane operator and the ? health technician. The procedure was ? verified in [...] preparation was evaluated using ? the BBPS ([place] Bowel Preparation ? Scale) with scores of: [...] Man MD GENERAL SURGICAL ORD ERABLES [employer] documented in this encounter Visit Diagnoses Not on filedocumented in this encounter Administered Medications Inactive Administered Medications - up to 3 most recent administrations Medication Order MAR Action Action Date Dose Rate Site lactated ringers infusion 50 mL/hr, Intravenous, CONTINUOUS, Starting on Nancy 01/31/19 at 0930, Until Nancy 01/31/19 at 1327, Endoscopy (Day of Procedure) New Bag 01/31/2019 9:45 AM EDT New Bag 01/31/2019 9:30 AM EDT 50 mL/hr 50 mL/hr documented in this encounter Active and Recently Administered Medications Times are shown in EDT. Scheduled Medication Order 01/29/2019 01/30/2019 01/31/2019 ondansetron (ZOFRAN) injection 4 mg 4 mg, Intravenous, ONCE, 1 dose, On Nancy 01/31/19 at 1000, Day of Surgery (Day of Procedure), STAT 1000 (Due) Continuous Medication Order 01/29/2019 01/30/2019 01/31/2019 lactated ringers infusion 50 mL/hr, Intravenous, CONTINUOUS, Starting on Nancy 01/31/19 at 0930, Until Nancy 01/31/19 at 1327, Endoscopy (Day of Procedure) 0930 (New Bag - Prov ider: Jessica Pitmtan RN)0945 (New Bag - Provider: Sharon Lemus CRNA) documented in this encounter Care Teams Medical Aides Teacher Relationship Specialty Start Date End Date Gorge Man MD PCP - [facility] Medicine 11/28/18 02/18/21 documented as of this encounter
--- OUTSIDE RECORDS SUMMARY | 2024-09-14 13:07 | XMS_ITS | Encounter Summary ---
Author Organization [facility] Address [facility] [place] [address] Care Team Providers Care Side Gluer Name Role Phone Gorge Man MD Primary Care Provider Encounter Details Date Type Department Care Team (Latest Contact Info) Description 10/02/2019 1:30 PM EST Office Visit [place] [address] Sumit Sawyer MD [facility] [place] [address] A, Nurse Clinician None CKD (chronic kidney disease) stage 3, GFR [...] Sign Reading Time Taken Comments Blood Pressure 120/70 10/02/2019 1:27 PM EST Pulse 78 10/02/2019 1:27 PM EST Temperature - - Respiratory Rate - - Oxygen Saturation - - Inhaled Oxygen Concentration - - Weight 65.3 kg (144 lb) 10/02/2019 1:27 PM EST Height 170.2 cm (5' 7) 10/02/2019 1:27 PM EST Body Mass Index 22.55 10/02/2019 1:27 PM EST documented in this encounter Progress Notes * Sumit Sawyer MD - 10/02/2019 1:30 PM EST [facility] [address] [place] [address] Reason for Clinic Visit: Systems Review and CKD management. Seen in clinic with: Randa Garcia RN, [facility], CKD RN Specialist CKD related to:??scleraderma crisis, Was on HD through tunnelled catheter from April 27 to July 14, 2010??at [facility] for the last 3 weeks of dialysis. History of Present Illness: Doing well overall/scleroderma relatively stable History obtained by RN Specialist: Amber was last seen in clinic on 03/15/2018, eGFR - 48. She states she is feeling well. Very active and healthy diet. She is mostly vegetarian and looking at adopting the Dr Noble diet. ? Review of Systems:?? Sign/Symptom Comments Activity level/fatigue: No - active with stairs, walking, skiing. Change in sleep patterns: No Nocturia: Yes - 1x Appetite changes: No - great, low salt diet, salads, fruit, veggies, mostly vegetarian diet. Food aversions: No Nausea: No Vomiting: No Bowels: No - diarrhea or constipation Edema: No Shortness of breath: No Orthopnea/PND: No PND; 1 pillow. Muscle Cramping: No Cold intolerance: Yes; plus the issues with the Raynaud's in her fingers. Itching: No Bruising/bleeding: No - bruising, nose bleeds, or black stools. Mental Status Changes: No problem Recent Home Blood Pressure Control: Low BP ??120/80 Recent Lipid Management: Not on lipid medications. Additional CCM Comments: How's your health been in the last 4 weeks : Poor, Fair, Good, Very Good, Excellent ? She is seeing time clock repairer at [facility] for the scleroderma management. She is seeing [...] Access/Surgeon: Had tunnelled dialysis catheter removed at [facility] in June 2010. No plans for [...] without gangrene I73.00 ??? Joseph's esophagus K22.70 Allergies Allergen Reactions ??? Other [Unclassified Drug] Lobster--weird sensation Medications 10/02/19 1327 Medication Sig Taking? sildenafil, antihypertensive, (REVATIO) 20 mg Tablet 2 tablets in am, 1 tablet in afternoon and 2 tablets in pm Yes amLODIPine (NORVASC) 10 mg Tablet Take 1 tablet by mouth daily. Yes esomeprazole (NEXIUM) 40 mg Capsule, Delayed Release(E.C.) Take 1 capsule by mouth 2 times daily. Yes fosinopril (MONOPRIL) 20 mg Tablet Take 1 tablet by mouth daily. Yes LIDOCAINE 2 % Solution APPLY TO PAINFUL AREAS IF NEEDED Yes acetaminophen (TYLENOL) 500 mg Tablet Take 2 tablets by mouth every 8 hours as needed for Pain. Yes loperamide (IMMODIUM) 2 mg Capsule Take 2 mg by mouth 4 times daily as needed for Diarrhea. Yes vitamin E 400 unit Capsule Take 400 Units by mouth daily. Yes lidocaine-prilocaine (EMLA) cream Apply topically as needed. Yes Cholecalciferol, Vitamin D3, (VITAMIN D) 1,000 unit Cap Take 1 tablet by mouth daily. Yes nitroGLYcerin (NITROGLYN) 2 % ointment Place 0.5 inches onto the skin every 6 hours. Yes cephALEXin (KEFLEX) 500 mg Capsule Take 1 capsule by mouth 4 times daily. Patient not taking: Reported on 10/02/2019 acetaminophen-codeine (TYLENOL #3) 300-30 mg Tablet Take 2 tablets by mouth every 6 hours as neededfor Pain. Reported on 03/29/2017 Patient not taking: Reported on 10/02/2019 glycerin, adult, Suppository daily as needed. Physical Exam: BP 120/70 (BP Location (NBP): Right arm, Patient Position: Sitting, BP Cuff Sizes: Adult (25-34 cm)) Pulse 78 Ht 170.2 cm (5' 7) Wt 65.3 kg (144 lb) LMP 11/27/2014 BMI 22.55 kg/m?? Check if examined Findings General appearance Obvious scerodermatous changes face /hands Head Eyes ENT Neck Respiratory clear COR/Vascular rrr Abdomen nl Skin scleroderma Neuro Asterixis Extremities No edema Other Labs Results for AMBER WELLS ( ) Ref. Range 05/29/2019 12:27 05/29/2019 12:36 10/02/2019 10:35 WBC Latest Ref Range: 4.0 - 9.5 x10(3)/mcL 6.8 6.9 RBC Latest Ref Range: 4.00 - 5.21 x10(6)/mcL 4.29 4.38 Hemoglobin Latest Ref Range: 11.7 - 15.5 gm/dL 13.3 13.4 Hematocrit Latest Ref Range: 35.7 - 45.8 % 41.2 42.5 MCV Latest Ref Range: 82.6 - 94.4 fL 96.0 (H) 97.0 (H) MCH Latest Ref Range: 27.1 - 32.0 pg 31.0 30.6 MCHC Latest Ref Range: 31.7 - 35.0 gm/dL 32.3 31.5 (L) RDWSD Latest Ref Range: 37.0 - 46.0 fL 46.9 (H) 46.9 (H) RDWCV Latest Ref Range: 11.5 - 14.1 % 13.2 13.1 Platelets Latest Ref Range: 145 - 357 x10(3)/mcL 297 324 MPV Latest Ref Range: 7.6 - 12.9 fL 10.8 10.9 nRBC % Auto Latest Units: % 0.0 0.0 nRBC Abs Auto Latest Ref Range: 0.000 - 0.000 x10(3)/mcL 0.000 0.000 Neutr Abs (ANC) Latest Ref Range: 1.70 - 6.10 x10(3)/mcL 4.51 5.05 Neutrophils % Latest Units: % 66.3 73.2 Immature Gran % Latest Units: % 0.30 0.30 Lymphocytes % Latest Units: % 23.9 18.8 Monocytes % Latest Units: % 6.8 5.4 Eosinophils % Latest Units: % 1.8 1.4 Basophils % Latest Units: % 0.9 0.9 Yessica Gran Abs Latest Ref Range: 0.00 - 0.04 x10(3)/mcL 0.02 0.02 Lymphocytes Abs Latest Ref Range: 0.9 - 3.2 x10(3)/mcL 1.6 1.3 Monocyte Abs Latest Ref Range: 0.3 - 0.9 x10(3)/mcL 0.5 0.4 Eosinophils Abs Latest Ref Range: 0.0 - 0.4 x10(3)/mcL 0.1 0.1 Basophils Abs Latest Ref Range: 0.0 - 0.1 x10(3)/mcL 0.1 0.1 Sodium Latest Ref Range: 135 - 145 mmol/L 138 142 Potassium Latest Ref Range: 3.5 - 5.0 mmol/L 5.0 4.7 Chloride Latest Ref Range: 98 - 107 mmol/L 102 106 CO2 Latest Ref Range: 22 - 31 mmol/L 23 24 Anion Gap Latest Ref Range: 5 - 15 mmol/L 13 12 BUN Latest Ref Range: 8 - 18 mg/dL 22 (H) 19 (H) Creatinine Latest Ref Range: 0.70 - 1.20 mg/dL 1.32 (H) 1.13 eGFR Latest Ref Range: >=60 mL/min/1.73 m?? 44 (L) 54 (L) eGFR Latest Ref Range: >=60 mL/min/1.73 m?? 51 (L) 62 Glucose Lvl Latest Ref Range: 65 - 199 mg/dL 100 93 Calcium Latest Ref Range: 8.5 - 10.5 mg/dL 9.4 9.8 Phosphorus Latest Ref Range: 2.5 - 4.5 mg/dL 3.1 Total Protein Latest Ref Range: 6.1 - 8.0 gm/dL 7.3 Albumin Latest Ref Range: 3.2 - 5.2 gm/dL 4.5 4.5 Total Bilirubin Latest Ref Range: 0.2 - 1.3 mg/dL 0.3 Alk Phos Latest Ref Range: 40 - 104 unit/L 95 AST Latest Ref Range: 0 - 30 unit/L 16 ALT Latest Ref Range: 0 - 30 unit/L 10 25-OH Vit D Total Latest Ref Range: 30 - 100 ng/mL 33 PTH Latest Ref Range: 15 - 65 pg/mL 64 Color UA Latest Ref Range: Yellow Yellow Appearance UA Latest Ref Range: Clear Clear Spec [place] UA Latest Ref Range: 1.002 - 1.030 1.013 pH UA Latest Ref Range: 5.0 - 8.0 7.0 Protein UA Latest Ref Range: Negative mg/dL Negative Glucose UA Latest Ref Range: Negative mg/dL Negative Ketones UA Latest Ref Range: Negative mg/dL Negative Bilirubin UA Latest Ref Range: Negative mg/dL Negative Urobilinogen UA Latest Ref Range: Normal mg/dL Normal Blood UA Latest Ref Range: Negative mg/dL Negative Leukocytes UA Latest Ref Range: Negative mcL Negative Nitrite UA Latest Ref Range: Negative Negative Culture Reflexed Unknown No Alb/Cr Ratio, Random Latest Ref Range: 0 - 29 mcg/mg Cr 141 U Albumin Conc, Random Latest Units: mg/L 42.4 U Creatinine Latest Units: mg/dL 30 Problem/Goal/Assessment/Plan: Problem: Chronic Kidney Disease Goal: Reduce rate of progression Education for CKD Stage specific issues Results: Estimated GFR (CKD-EPI): 54 ml/min/1.73m2 CKD Stage 3 - Potassium level - 4.7, not following low potassium diet - CO2 level - 24 - Uric Acid level - Not tested Changes discussed with RN Specialist: Continue vegetarian diet, suggest the addition of beans and protein drinks. A/P: ok Problem: Management of Anemia related to Chronic Kidney Disease (CKD) Goal:P Hgb 9.5-10.9 g/dl Ferritin>100ng/ml TSAT>20% Today's Results Hgb - 13.4 Ferritin - not tested TSAT - not tested Receiving erythropoetic stimulating agent? No Iron Supplement; Date : None received. Changes discussed with RN Specialist: A/P: excellent Problem: Hypertension Goal: Urine alb:cr ratio <30mg/g - 140/90, Urine alb:cr ratio > 30mg/g - 130/80 Sodium intake < 2 Gm per day. Results: BP today - 120/70 Changes discussed with RN Specialist: A/P: Continue current PERRY/meds Problem: Proteinuria Goal: Alb:Cr ratio < 30mg/g Today's results: Alb:Cr ratio - 141 Changes discussed with RN Specialist: Taking fosinopril 20 mg daily. A/P: ok Problem: Bone Disease Goal: Stage 3 PTH: 35-70 pg/ml Phos 2.7-4.6 Ca 8.5-10.5mg/dl Stage 4 PTH: 70-110 pg/ml Phos 2.7-4.6 Ca 8.5-10.5mg/dl Stage 5 PTH: 150-300 pg/ml Phos 3.5-5.5 Ca 8.5-10.5mg/dl Results: PTH today - 64 (pt not taking calcitriol) Phos today - 3.1 (pt not taking binders) Calcium today - 9.8 Changes discussed with RN Specialist: A/P: ok Problem: Nutrition Goal: Albumin > 4.0gm/dl BMI 20-25 kg/m2 Results: Albumin today - 4.5 Changes discussed with RN Specialist: A/P: excellent Summary: Stable renal function with sceroderma Return to CKD clinic: 1 year documented in this encounter Plan of Treatment Upcoming Encounters Date Type Department Care Team (Late st Contact Info) Description 10/07/2024 11:30 AM EST Office Visit Dermatology at [place] [address] [place] [address] Jo Ordaz MD [facility] [place] [address] 12/13/2024 11:30 AM EST Appointment [place] [phone] 12/13/2024 1:00 PM EST Office [place] [phone] iKet Pardo MD [facility] [place] [address] documented as of this encounter Visit Diagnoses Diagnosis CKD (chronic kidney disease) stage 3, GFR 30-59 ml/min Chronic kidney disease, Stage III (moderate) documented in this encounter Care Teams Side Gluer Relationship Specialty Start Date End Date Gorge Man MD PCP - [facility] Medicine 11/28/18 02/18/21 documented as of this encounter
--- OUTSIDE RECORDS SUMMARY | 2024-09-14 13:07 | XMS_ITS | Encounter Summary ---
Author Organization [facility] [place] [address] Care Team Providers Care Medical Lab Specialist Name Role Phone Gorge Man MD Primary Care Provider [phone] Reason for Visit * Reason Onset Date Comments Medication Refill 06/21/2019 Encounter Details Date Type Department Care Team (Late st Contact Info) Description 06/21/2019 Refill [place] [address] Antoine Jung, RN Social History Tobacco Use [...] 11:30 AM EST Office Visit Dermatology at [facility] [address] [place] [address] Jo Ordaz MD [facility] [place] [address] 12/13/2024 11:30 AM EST Appointment [place] [phone] 12/13/2024 1:00 PM EST Office [place] [phone] Kiet Pardo MD [facility] [place] [address] documented as of this encounter Visit Diagnoses Not on filedocumented in this encounter Care Teams Medical Lab Specialist Relationship Specialty Start Date End Date Gorge Man MD PCP - [facility] Medicine 11/28/18 02/18/21 documented as of this encounter
--- OUTSIDE RECORDS SUMMARY | 2024-09-14 13:07 | XMS_ITS | Encounter Summary ---
[place] [address] Care Team Providers Care Golf Course Manager Name Role Phone Gorge Man MD Primary Care Provider [phone] Reason for Visit * Reason Onset Date Comments Prior Authorization 12/19/2018 esomeprasole Encounter Details Date Type Department Care Team (Late st Contact Info) Description 12/19/2018 Telephone [place] [address] Antoine Jung, family practice doctor (esomeprasole) Social History Tobacco Use Types Packs/Day Years [...] Miscellaneous Notes * Telephone Encounter - Antoine Jung, RN - 12/20/2018 2:57 PM EST Spoke with patient regarding PA esomeprazole. Received letter this morning. States this is not denial. [place] [employer]. Need provide notesongoing use of this medication. Dr. Ab, GI, original prescriber. Porter's esophagus and sceleroderma, 12/22/2017 letter to patient regarding. Patient calls to inquire about update regarding PA and update she has received a letter regarding PA. * Telephone Encounter - Antoine Jung RN - 12/19/2018 10:42 AM EST Patient calls about a PA, leaves message on nurse triage line. Returned call to patient, unavailable. Left message with call back number provided. documented in this encounter Plan of Treatment Upcoming Encounters Date Type Department Care Team (Late st Contact Info) Description 10/07/2024 11:30 AM EST Office Visit Dermatology at [address] [address] [facility] [place] [address] 12/13/2024 11:30 AM EST Appointment [place] [phone] 12/13/2024 1:00 PM EST Office [place] [phone] [facility] [place] [address] documented as of this encounter Visit Diagnoses Not on filedocumented in this encounter Care Teams Golf Course Manager Relationship Specialty Start Date End Date Gorge Man MD PCP - General [facility] Medicine 11/28/18 02/18/21 documented as of this encounter
--- OUTSIDE RECORDS SUMMARY | 2024-09-14 13:07 | XMS_ITS | Encounter Summary ---
Author Organization [facility] Address [facility] [place] [address] Care Team Providers Care Marketing Automation Manager Name Role Phone Gorge Man MD Primary Care Provider [phone] Encounter Details Date Type Department Care Team (Late Contact Info) Description 10/24/2019 Orders [place] [address] Andre Marroquin MD [facility] [place] [address] Raynaud's disease without gangrene Social History Tobacco [...] AM EST Office Visit Dermatology at [facility] [address] [place] [address] Jo Ordaz MD [facility] [place] [address] 12/13/2024 11:30 AM EST Appointment [place] [phone] 12/13/2024 1:00 PM EST Office [place] [phone] Kiet Pardo MD [facility] [place] [address] documented as of this encounter Visit Diagnoses Diagnosis Raynaud's disease without gangrene documented in this encounter Care Teams Marketing Automation Manager Relationship Specialty Start Date End Date Gorge Man MD PCP - [facility] Medicine 11/28/18 02/18/21 documented as of this encounter
--- OUTSIDE RECORDS SUMMARY | 2024-09-14 13:07 | XMS_ITS | Encounter Summary ---
Author Organization [facility] [place] [address] Care Team Providers Care Fire Prevention Inspector Name Role Phone Gorge Man MD Primary Care Provider [phone] Reason for Visit * Reason Comments Follow-up Encounter Details Date Type Department Care Team (Late st Contact Info) Description 10/02/2019 3:30 PM EST Office [place] [address] Solomon Quiros MD [facility] [place] [address] Desmoid fibromatosis Social History Tobacco Use Types [...] PM EDT documented as of this encounter H&P Notes * Solomon Quiros MD - 10/02/2019 3:30 PM EST * Solomon Quiros MD - 10/02/2019 3:30 PM EST Surgical Oncology Consultation Note Reason for Visit: Amber Wells is a 59 y.o. female seen in follow-up for desmoid of the back. First visit with me taking History of the present illness: Amber Wells is a 59 y.o. year old female with PMH significant for desmoid of the back and scleroderma. Patient returns for follow-up for desmoid of the back. Patient reports doing quite well, no new lumps/bumps. Active Ambulatory Problems Diagnosis Date Noted ??? Anemia of chronic renal failure, stage 4 (severe) ??? CKD (chronic kidney disease) stage 4, GFR 15-29 ml/min 04/20/2010 ??? GERD (gastroesophageal reflux disease) ??? Scleroderma 11/20/1990 ??? Raynaud's disease 06/21/2011 ??? AK (actinic keratosis) 05/25/2013 ??? Solar lentigo 05/25/2013 ??? Multiple nevi 05/25/2013 ??? 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 Altered bowel habits 11/03/2014 ??? Other disorder of muscle, ligament, and fascia 12/09/2014 ??? Fecal incontinence 12/10/2015 ??? Raynaud phenomenon 04/08/2016 ??? Swelling of extremity, right 10/12/2016 ??? Raynaud's disease without gangrene 11/02/2017 ??? 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 No Resolved Ambulatory Problems Past Medical History: Diagnosis Date ??? Anemia associated with chronic renal failure ??? Anemia in CKD (chronic kidney disease) ??? Arthritis ??? Chronic kidney disease 2009 ??? Hypertension ??? Neuromuscular disorder ??? Raynaud's syndrome 1990 Past Surgical History: Procedure Laterality Date ??? CREATED BY INTERFACE Entered not Verified Procedure Date: 01/27/2011 ??? CREATED BY INTERFACE No History of Operative Procedures Procedure Date: 01/27/2011 ??? DILATION AND CURETTAGE OF UTERUS ??? PRO APPLY FOREARM SPLINT, STATIC Left 04/08/2016 SPLINT APPLICATION, SHORT ARM performed by Andre Marroquin MD at [facility] MAIN OR ??? PRO COLONOSCOPY, DIAGNOSTIC N/A 01/31/2019 COLONOSCOPY, DIAGNOSTIC performed by Andrew Berger MD at [facility] ENDOSCOPY ??? PRO ENDOSCOPIC US EXAM, ESOPH N/A 03/29/2016 UPPER EUS- ENDOSCOPIC ULTRASOUND performed by Darryl Ash MD at [facility] ENDOSCOPY ??? PRO REBL VES VEIN GRFT, UP EXTREM Left 04/08/2016 REPAIR BLOOD VESSEL WITH VEIN GRAFT, UPPER EXTREMITY performed by Andre Marroquin MD at [facility] MAIN OR ??? PRO UPPER GI ENDOSCOPY, BIOPSY N/A 03/29/2016 UPPER GASTROINTESTINAL ENDOSCOPY,WITH BIOPSY SINGLE OR MULTIPLE performed by Darryl Ash MD at [facility] ENDOSCOPY ??? PRO UPPER GI ENDOSCOPY, BIOPSY N/A 01/10/2018 EGD WITH BIOPSY (WRVU 2.49) performed by Andrew Berger MD at [facility] ENDOSCOPY ??? PRO VEIN BYPASS GRAFT, BRACHIAL ULNAR OR RADIAL Right 10/07/2016 @BYPASS GRAFT, BRACHIAL-ULNAR OR RADIAL W\VEIN (VASC) performed by Andre Marroquin MD at [facility] MAIN OR ??? SKIN BIOPSY BACK [...] and infectious diseases. Current Outpatient Medications: ??? sildenafil, antihypertensive, (REVATIO) 20 mg Tablet, 2 tablets in am, 1 tablet in afternoon and 2 tablets in pm, Disp: 150 tablet, Rfl: 5 ??? cephALEXin (KEFLEX) 500 mg Capsule, Take 1 capsule by mouth 4 times daily. (Patient not taking:Reported on 10/02/2019), Disp: 40 capsule, Rfl: 0 ??? acetaminophen-codeine (TYLENOL #3) 300-30 mg Tablet, Take 2 tablets by mouth every 6 hours as needed for Pain. Reported on 03/29/2017 (Patient not taking: Reported on 10/02/2019), Disp: 60 tablet,Rfl: 0 ??? amLODIPine (NORVASC) 10 mg Tablet, Take 1 tablet by mouth daily., Disp: 90 tablet, Rfl: 3 ??? esomeprazole (NEXIUM) 40 mg Capsule, Delayed Release(E.C.), Take 1 capsule by mouth 2 times daily., Disp: 180 capsule, Rfl: 3 ??? fosinopril (MONOPRIL) 20 mg Tablet, Take 1 tablet by mouth daily., Disp: 90 tablet, Rfl: 3 ??? glycerin, adult, Suppository, daily as needed., [...] by mouth daily., Disp: , Rfl: ??? lidocaine-prilocaine (EMLA) cream, Apply topically as needed., Disp: 30 g, Rfl: 2 ??? Cholecalciferol, Vitamin D3, (VITAMIN D) [...] resource strain: Not on file ??? Food insecurity: Worry: Not on file Inability: Not on file ??? Transportation needs: Medical: Not on file Non-medical: Not on file Tobacco Use ??? Smoking status: Former Smoker Packs/day: 1.00 Years: 10.00 Pack years: 10.00 Types: Cigarettes Last attempt to quit: 03/30/1988 Years since quittin.5 ??? Smokeless tobacco: Never Used Substance and Sexual Activity ??? Alcohol use: Yes Alcohol/week: 1.0 standard drinks Types: 1 Glasses of wine per week Comment: once a week ??? Drug use: No ??? Sexual activity: Not on file Lifestyle ??? Physical activity: Days per week: Not on file Minutes per session: Not on file ??? Stress: Not on file Relationships ??? Social connections: Talks on phone: Not on file Gets together: Not on file Attends protestant service: Not on file Active member of club or organization: Not on file Attends meetings of clubs or organizations: Not on file Relationship status: Not on file ??? Intimate partner violence: Fear of current or ex partner: Not on file Emotionally abused: Not on file Physically abused: Not on file Forced sexual activity: Not on file Other Topics Concern ??? Not on file Social History Narrative ??? Not on file Family History Problem Relation Age of Onset ??? Glaucoma Brother ??? Diabetes Maternal Grandmother ??? Alcohol Use Disorder Father ??? Cancer Neg Hx Physical Examination: Constitutional: This is a 59 y.o. female in no apparent distress. LMP 11/27/2014 Lymphatic basin exam: There was no palpable [...] strength Skin: warm, dry, good turgor, non-icteric. Radiology MRI Upper Extremity (01/25/2019) IMPRESSION No significant change when compared with 09/18/2015. Unchanged thin band of signal abnormality and enhancement in the surgical bed could represent stable postsurgical changes. Unchanged thin band of signal abnormality and enhancement deep to the left subscapularis muscle when compared with 09/18/2015. Assessment and plans: Amber Wells is a 59 y.o. year old female PMH significant for scleroderma and desmoid of the back presenting today for follow-up. No evidence of recurrence on her most recent MRI. She is now 5-years out from most recent resection and is doing well. Plan for follow-up MRI in 12 months and return to clinic for evaluation. Solomon Quiros MD, MPH Surgical Oncology documented in this encounter Plan of Treatment Upcoming Encounters Date Type Department Care Team (Late st Contact Info) Description 10/07/2024 11:30 AM EST Office Visit Dermatology at [address] [address] Jo Ordaz MD [facility] [place] [address] 12/13/2024 11:30 AM EST Appointment [place] [address] 12/13/2024 1:00 PM EST Office [place] [phone] Kiet Pardo MD [facility] [place] [address] documented as of this encounter Visit Diagnoses Diagnosis Desmoid fibromatosis Other benign neoplasm of connective and other soft tissue of unspecified site documented in this encounter Care Teams Fire Prevention Inspector Relationship Specialty Start Date End Date Gorge Man MD PCP - [facility] Medicine 11/28/18 02/18/21 documented as of this encounter
--- OUTSIDE RECORDS SUMMARY | 2024-09-14 13:07 | XMS_ITS | Encounter Summary ---
[place] [address] Care Team Providers Care Sample Body Builder Name Role Phone Gorge Man MD Primary Care Provider [phone] Encounter Details Date Type Department Care Team (Late st Contact Info) Description 12/21/2018 Telephone [place] [phone] Mahsa Fallon Social History Tobacco Use Types Packs/Day Years [...] encounter Miscellaneous Notes * Telephone Encounter - Mahsa Fallon - 12/21/2018 12:26 PM EST LM for Pt to call and mayi. documented in this encounter Plan of Treatment Upcoming Encounters Date Type Department Care Team (Late st Contact Info) Description 10/07/2024 11:30 AM EST Office Visit Dermatology at [facility] [address] [place] [address] Jo Ordaz MD [facility] [place] [address] 12/13/2024 11:30 AM EST [place] [phone] 12/13/2024 1:00 PM EST Office [place] [phone] Kiet Pardo MD [facility] [place] [address] documented as of this encounter Visit Diagnoses Not on filedocumented in this encounter Care Teams Sample Body Builder Relationship Specialty Start Date End Date Gorge Man MD PCP - [facility] 11/28/18 02/18/21 documented as of this encounter
--- OUTSIDE RECORDS SUMMARY | 2024-09-14 13:07 | XMS_ITS | Encounter Summary ---
Author Organization [facility] [place] [address] Care Team Providers Care Inside Sales Supervisor Name Role Phone Gorge Man MD Primary Care Provider [phone] Reason for Visit * Reason Onset Date Comments Medication Refill 01/09/2020 Encounter Details Date Type Department Care Team (Late st Contact Info) Description 01/09/2020 [place] [address] Yu Mcdonough, [facility] [place] [address] Scleroderma; CKD (chronic kidney disease) stage 3, [...] Visit Dermatology at [address] [place] [address] Jo Ordaz MD [facility] [place] [address] 12/13/2024 11:30 AM [place] [phone] 12/13/2024 1:00 PM EST [place] [phone] Kiet Pardo MD [facility] [place] [address] documented as of this encounter Visit Diagnoses Diagnosis Scleroderma Systemic sclerosis CKD (chronic kidney disease) stage 3, GFR 30-59 ml/min Chronic kidney disease, Stage III (moderate) documented in this encounter Care Teams Inside Sales Supervisor Relationship Specialty Start Date End Date Gorge Man MD PCP - [facility] 11/28/18 02/18/21 documented as of this encounter
--- OUTSIDE RECORDS SUMMARY | 2024-09-14 13:07 | XMS_ITS | Encounter Summary ---
Author Organization [facility] [place] [address] Care Team Providers Care Dog License Officer Supervisor Name Role Phone Gorge Man MD Primary Care Provider [phone] Encounter Details Date Type Department Care Team (Latest Contact Info) Description 05/21/2020 3:33 PM EDT - 05/21/2020 11:59 PM EDT [place] [phone] Discharge Disposition: Home Social History Tobacco Use [...] inches onto the skin every 6 hours. cephALEXin (Keflex) 500 mg Capsule Take 1 capsule by mouth 4 times daily. 40 capsule 03/16/2020 06/09/2020 esomeprazole (NexIUM) 40 mg Capsule, Delayed Release(E.C.)Indicatio [...] 3 01/10/2020 10/14/2020 fosinopriL (MONOPRIL) 20 mg TabletIndications:Jaimie davila,CKD (chronic [...] AM EST Office Visit Dermatology at [facility] [place] [phone] Jo Ordaz MD [facility] [place] [address] 12/13/2024 11:30 AM EST Appointment [place] [address] 12/13/2024 1:00 PM EST Office [place] [address] Kiet Pardo MD [facility] [place] [place] [address] documented as of this encounter Procedures Procedure Name Priority Date/Time Associated Diagnosis Comments SURGICAL PATHOLOGY REPORT Routine 05/21/2020 3:34 PM EDT documented in this encounter Results * Surgical Pathology Report (05/21/2020 3:34 PM EDT) Final Diagnosis ? Location: OPW The signing pathologist has (i) examined the relevant preparation(s) for the specimen(s) and (ii) rendered or confirmed the diagnosis(es). . ?Molecular Genetics RESULTS Analysis: ??Examination of DNA and RNA extracted from formalin-fixed paraffin-embedded tumor tissue for somatic mutation analysis. Results: ??The submitted specimen, block A1, failed the ?? DNA/RNA quantification ??QC checkpoint, and was therefore not sufficient for somatic mutation analysis. ??If testing is warranted as per clinical indication, please contact the attending pathologist in order to resubmit an alternative tissue sample. Pathologist/Notificatio n Date: ?Shante / 06-03-2020 MG Pathologist/Notificatio n Date: ?Adwoa / 06-03-2020 Electronically signed by: ??Lexie Orona MD Verified: ??01/15/2021 ?Pathologist Performed at: ??-[facility] [place], [place], [place] ?Surgical Pathology DIAGNOSIS CONSULTATION CASE Outside slide(s) labeled [id number], collection date 04/21/2020. Right back, skin punch ?? 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 Electronically signed by: ??Rao Frey MD Verified: ??05/27/2020 ?Dermatopathologist, Bone & Soft Tissue Pathologist Performed at: ??-[facility] Dept. of [place], [place], [place] DISCUSSION B-catenin by immunohistochemistry was repeated in our institution and shows patchy nuclear positivity supporting the above diagnosis. The previous specimen ([id number]) was also reviewed. Immunohistochemistry performed in the outside institution show the tumors cells to be positive for SMA, whereas they are negative for ALK, CD34 and [id number]. We will attempt to confirm the diagnosis by detecting b- catenin mutations by Next Generation Sequencing (NGS). The results will be reported separately. Lastly there is mild superficial and deep dermal fibrosis favor to be related to the patient's history of scleroderma. SPECIMEN(S) SUBMITTED CONSULTATION CASE A - 6 slide(s) labeled [id number], collection date 04/21/2020. [id number] Report to: [facility] Surgical Pathology Department [facility], 2nd Floor [address], [place] ??[address] . CLINICAL INFORMATION 2 months history of tumor on back, history of desmoid SPECIMEN PROCESSING _ pathology slide(s) are reviewed. ??Refer to Diagnosis and Specimen Submitted for specific case information. For the full text of the _ report(s) please refer to Non- Documentation Pathology in the electronic health record (eDH). 01/15/2021 5:51 PM [facility] Consult Case 05/21/2020 3:34 PM EDT 05/21/2020 3:34 PM EDT Solomon Quiros MD PATHOLOGY/CYTOLOGY O RDERABLES [facility] [place] [address] documented in this encounter Visit Diagnoses Not on filedocumented in this encounter Care Teams Dog License Officer Supervisor Relationship Specialty Start Date End Date Gorge Man MD PCP - [facility] Medicine 11/28/18 02/18/21 documented as of this encounter
--- OUTSIDE RECORDS SUMMARY | 2024-09-14 13:07 | XMS_ITS | Encounter Summary ---
Author Organization [facility] Address [facility] [place] [address] Care Team Providers Care Pneumatic Tube Fitter Name Role Phone Gorge Man MD Primary Care Provider [phone] Encounter Details Date Type Department Care Team (Late st Contact Info) Description 01/31/2019 9:45 AM EDT Anesthesia [place] [address] Sites, Sumit Woodward MD [facility] [place] [address] Anesthesia Record Procedure Summary Procedure Name Responsible Anesthesiologist Anesthesia Start Time Anesthesia Stop Time COLONOSCOPY, DIAGNOSTIC (WRVU 3.26) (Trunk) Sites, Sumit Woodward MD 01/31/19 0945 01/31/19 1026 Events Date Time Event Comment 01/31/2019 0945 AN Verify 0945 Start 0945 An Start Data 0945 Break/Relief In Sharon Lemus CRNA 0955 An Induction 0957 Anesthesia Ready 0958 Break/Relief Out 1026 an stop data 1026 Recovery or ICU Handoff Lorri ent care was transferred to the destination unit staff after review of the patient's medical history, current anesthetic/surgical status and plan, according to the Provider Handoff Checklist. 1026 Stop 1050 Meds Name Total Midazolam 2 mg Propofol 100 mg Propofol INF 209.55 mg Dexmedetomidine 8 mcg lactated ringers infusion 0 mL * Agents [...] (RETIRED) Peripheral IV Line - Single Lumen 01/31/19; 0932; basilic vein (medial side of arm), right; [id number] catheter system; 22 gauge; distraction, intradermal injection, tolerated well; 0; no longer indicated; 01/31/19; 1055 01/31/19 0932 by Jessica Pittman RN 01/31/19 1055 by Micaela Mchugh RN documented in this encounter Social History [...] OR Notes * Anesthesia Postprocedure Evaluation - Sumit Aldrich MD - 01/31/2019 10:49 AM EDT [facility] Department of Anesthesiology Post-procedure Note Patient: Amber Wells Procedure Summary Date: 01/31/19 Room / Location: [facility] ENDO 3 / [facility] ENDOSCOPY Anesthesia Start: 944 Anesthesia Stop: 1025 Procedure: COLONOSCOPY, DIAGNOSTIC (N/A Trunk) Diagnosis: (5 yr surv from 04/04/13) Surgeon: Andrew Berger MD Responsible Provider: Sumit Aldrich MD Anesthesia Type: MAC ASA Status: 3 All Anesthesia Providers: Anesthesiologist: Sumit Aldrich MD POULTRY PICKER: Daniele Root CRNA Vitals Value Taken Time BP Temp Pulse Resp SpO2 Pain Level Patient Location: PACU/[facility] Level of Consciousness: Lethargic Pain Management: Satisfactory Analgesia PONV: None Cardiovascular Status: At Baseline Respiratory Status: Supplemental O2 (NC or FM) Postoperative Fluid Status: Intravascular EUvolemia Possible Anesthetic Complications: NONE apparent at time of evaluation Final Primary Anesthesia Type: Comments: * Anesthesia Preprocedure Evaluation - Sumit Aldrich MD - 01/31/2019 9:21 AM EDT Pre-Anesthesia Evaluation for: Amber Wells a 58 y.o. female. Procedure(s): COLONOSCOPY, DIAGNOSTIC Patient Active Problem List Diagnosis ??? Joseph's esophagus ??? Raynaud's disease without gangrene ??? Swelling of extremity, right ??? Raynaud phenomenon ??? Fecal incontinence ??? Other disorder of muscle, ligament, and fascia ??? Altered bowel habits ??? 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 Mitosis 10/29HPF ??? AK (actinic keratosis) ??? Solar lentigo ??? Multiple nevi ??? Raynaud's disease ??? Anemia of chronic renal failure, stage 4 (severe) ??? GERD (gastroesophageal reflux disease) ??? 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 Scleroderma Past Medical History: Diagnosis Date ??? Anemia associated with chronic renal failure ??? Anemia in CKD (chronic kidney disease) ??? Arthritis ??? Chronic kidney disease 2010 Dialysis AprilJun 2010, producing hemoglobin since ??? CKD (chronic kidney disease) stage 4, GFR 15-29 ml/min 04/20/2010 ??? Desmoid fibromatosis 05/27/14 s/p re-excision of desmoid firbormatosis of the back ??? Hypertension ??? Neuromuscular disorder ??? Raynaud's syndrome 1990 ??? Scleroderma 1990 Diffuse scleroderma. Past Surgical History: Procedure Laterality Date ??? CREATED BY INTERFACE Entered not Verified Procedure Date: 01/27/2011 ??? CREATED BY INTERFACE No History of Operative Procedures Procedure Date: 01/27/2011 ??? DILATION AND CURETTAGE OF UTERUS ??? PRO APPLY FOREARM SPLINT, STATIC Left 04/08/2016 SPLINT APPLICATION, SHORT ARM performed by Andre Marroquin MD at [facility] MAIN OR ??? PRO ENDOSCOPIC US EXAM, ESOPH N/A 03/29/2016 UPPER EUS- ENDOSCOPIC ULTRASOUND performed by Darryl Ash MD at [facility] ENDOSCOPY ??? PRO REBL VES VEIN GRFT, UP EXTREM Left 04/08/2016 REPAIR BLOOD VESSEL WITH VEIN GRAFT, UPPER EXTREMITY performed by Andre Marroquin MD at [facility] MAIN OR ??? PRO UPPER GI ENDOSCOPY, BIOPSY N/A 03/29/2016 UPPER GASTROINTESTINAL ENDOSCOPY,WITH BIOPSY SINGLE OR MULTIPLE performed by Darryl Ash MD at [facility] ENDOSCOPY ??? PRO UPPER GI ENDOSCOPY, BIOPSY N/A 01/10/2018 EGD WITH BIOPSY (WRVU 2.49) performed by Andrew Berger MD at [facility] ENDOSCOPY ??? PRO VEIN BYPASS GRAFT, BRACHIAL ULNAR OR RADIAL Right 10/07/2016 @BYPASS GRAFT, BRACHIAL-ULNAR OR RADIAL W\VEIN (VASC) performed by Andre Marroquin MD at [facility] MAIN OR ??? 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 Smoking status: Former Smoker Packs/day: 1.00 Years: 10.00 Pack years: 10.00 Types: Cigarettes Last attempt to quit: 03/30/1988 Years since quittin.8 ??? Smokeless tobacco: Never Used Substance Use Topics ??? Alcohol use: Yes Alcohol/week: 0.6 oz Types: 1 Glasses of wine per week Comment: once a week Social History Substance and Sexual Activity Drug Use No Allergies Allergen Reactions ??? Other [Unclassified Drug] Lobster--weird sensation Medications: MAR and/or home medications have been reviewed. Physical Exam: Most Recent Vitals: 01/31/19 0909 BP: 115/63 Pulse: 79 Resp: 16 Temp: 36.9 ??C (98.4 ??F) SpO2: 98% Body mass index is 21.93 kg/m??. Height: 170.2 cm (5' 7) Weight: 63.5 kg (140 lb) Airway Assessment: Mallampati: II TM distance: >3 FB Neck ROM: full Cardiovascular Assessment: Rhythm: regular Rate: normal Pulmonary Assessment: breath sounds clear to auscultation Dental Assessment: Misc Assessment: IV access: Peripheral line Anesthesia Plan: ASA 3 MAC, with a(n) intravenous induction I have seen and examined the patient. I have reviewed the medical record and pertinent laboratory information. I have noted the major medical issues as outlined in the problem list. I have reviewed risks from minor to major as outlined in the anesthesia consent form. I have highlighted risks related to airway management and sedation. She is aware that our care model is based on a team and I will be working with either a POULTRY PICKER or resident physician. A resident physician means a physician who is in training to be an anesthesiologist. The patient acknowledged these risks and would like to proceed with the anesthesia plan. Region - Other Informed Consent: Anesthetic plan and risks discussed with patient. Plan discussed with POULTRY PICKER. PAT Staff Note documented in this encounter Plan of Treatment Upcoming Encounters Date Type Department Care Team (Late st Contact Info) Description 10/07/2024 11:30 AM EST Office Visit Dermatology at [address] [address] Jo Ordaz MD [facility] [place] [address] 12/13/2024 11:30 AM EST Appointment [place] [phone] 12/13/2024 1:00 PM EST Office [place] [phone] Kiet Pardo MD [facility] [place] [address] documented as of this encounter Visit Diagnoses Not on filedocumented in this encounter Administered Medications Inactive Administered Medications - up to 3 most recent administrations Medication Order MAR Action Action Date Dose Rate Site dexmedetomidine (PRECEDEX) injection PRN, Starting on Nancy 01/31/19 at 0951, Until Nancy 01/31/19 at 1026, Anesthesia Intra-op, Routine Given 01/31/2019 9:55 AM EDT 4 mcg Given 01/31/2019 9:51 AM EDT 4 mcg lactated ringers infusion 50 mL/hr, Intravenous, CONTINUOUS, Starting on Nancy 01/31/19 at 0930, Until Nancy 01/31/19 at 1327, Endoscopy (Day of Procedure) New Bag 01/31/2019 9:45 AM EDT New Bag 01/31/2019 9:30 AM EDT 50 mL/hr 50 mL/hr midazolam (PF) (VERSED) multi-dose injection PRN, Starting on Nancy 01/31/19 at 0945, Until Nancy 01/31/19 at 1026, Anesthesia Intra-op, Routine Given 01/31/2019 9:45 AM EDT 2 mg propofol (DIPRIVAN) 10 mg/mL bolus injection (Anesthesia) PRN, Starting on Nancy 01/31/19 at 0955, Until Nancy 01/31/19 at 1026, Anesthesia Intra-op Given 01/31/2019 9:57 AM EDT 50 mg Given 01/31/2019 9:55 AM EDT 50 mg propofol (DIPRIVAN) infusion CONTINUOUS PRN, Starting on Nancy 01/31/19 at 0955, Until Nancy 01/31/19 at 1026, Anesthesia Intra-op, Routine Rate/Dose Change 01/31/2019 10:08 AM EDT 100 mcg/kg/min 38.1 mL/hr Rate/Dose Change 01/31/2019 10:04 AM EDT 150 mcg/kg/min 57 .2 mL/hr New Bag 01/31/2019 9:55 AM EDT 200 mcg/kg/min 76.2 mL/h r documented in this encounter Care Teams Pneumatic Tube Fitter Relationship Specialty Start Date End Date Gorge Man MD [facility] Medicine 11/28/18 02/18/21 documented as of this encounter
--- OUTSIDE RECORDS SUMMARY | 2024-09-14 13:07 | XMS_ITS | Encounter Summary ---
Author Organization [facility] [place] [address] Care Team Providers Care Pig Machine Supervisor Name Role Phone Gorge Man MD Primary Care Provider [phone] Encounter Details Date Type Department Care Team (Late st Contact Info) Description 09/24/2019 Orders Only [place] [address] Karla Bailey, [place] CKD (chronic kidney disease) stage 4, GFR [...] Dermatology at [facility] [address] [place] [address] Jo Ordaz MD [facility] [address] [place] [address] 12/13/2024 11:30 AM EST Appointment [place] [address] 12/13/2024 1:00 PM EST Office [place] [address] Kiet Pardo MD [facility] [place] [place] [address] documented as of this encounter Results * Vitamin D, 25-Hydroxy (10/02/2019 10:35 AM EST) Vitamin D Total 25 OH 33 30 - 100 ng/mL [facility] Comment: As of 2019, 25-hydroxyvitamin D testing has moved from the [employer] to the [employer]. No substantial change in measured values is expected. Blood specimen (specimen) 10/02/2019 10:35 AM EST 10/02/2019 11:14 AM EST Narrative Resulting Agency Comment Spec In Lab Sumit Sawyer MD CHEMISTRY ORDERABLE S Performing Organization Address City/[facility]/ZIP Co de Phone Number [facility] [place] [place] [address] * PTH (10/02/2019 10:35 AM EST) Parathyroid Hormone 64 15 - 65 pg/mL [facility] Blood specimen (specimen) 10/02/2019 10:35 AM EST 10/02/2019 10:51 AM EST Narrative Resulting Agency Comment Spec In Lab Sumit Sawyer MD CHEMISTRY ORDERABLE S Performing Organization Address City/[facility]/ZIP Co de Phone Number [facility] [place] [address] * Albumin Level (10/02/2019 10:35 AM EST) Albumin 4.5 3.2 - 5.2 gm/dL [facility] Blood specimen (specimen) 10/02/2019 10:35 AM EST 10/02/2019 10:51 AM EST Narrative Resulting Agency Comment Spec In Lab Sumit Sawyer MD CHEMISTRY ORDERABLE S Performing Organization Address City/[facility]/ZIP Co de Phone Number [facility] [place] [address] * Phosphorus (10/02/2019 10:35 AM EST) Phosphorus 3.1 2.5 - 4.5 mg/dL [facility] Blood specimen (specimen) 10/02/2019 10:35 AM EST 10/02/2019 10:51 AM EST Narrative Resulting Agency Comment Spec In Lab Sumit Sawyer MD CHEMISTRY ORDERABLE S Performing Organization Address City/[facility] Co de Phone Number [facility] [place] [address] * (ABNORMAL) Basic Metabolic Panel (non-fasting) (10/02/2019 [...] of body mass or the acutely ill. [email or web address]/[facility] – [email or web address] eGFR 62 >=60 mL/min/1. 73 m?? [facility] Comment: The eGFR was calculated using the CKD-EPI equation. As with all creatinine based estimates of kidney function, eGFR values calculated with the CKD-EPI equation are not accurate in patients with acute kidney failure, extremes of body mass or the acutely ill. [email or web address] Blood specimen (specimen) 10/02/2019 10:35 AM EST 10/02/2019 10:51 AM EST Narrative Resulting Agency Comment Spec In Lab Sumit Sawyer MD CHEMISTRY ORDERABLE S [facility] [place] [address] * (ABNORMAL) U Albumin/Cre Ratio (10/02/2019 10:30 [...] [facility] Creatinine, Urine 30 mg/dL [facility] Urine specimen (specimen) 10/02/2019 10:30 AM EST 10/02/2019 10:46 AM EST Narrative Resulting Agency Comment Spec In Lab Sumit Sawyer MD URINE ORDERABLES Performing Organization Address City/State/[facility] Co de Phone Number [facility] [place] [address] documented in this encounter Visit Diagnoses Diagnosis CKD (chronic kidney disease) stage 4, GFR 15-29 ml/min Chronic kidney disease, Stage IV (severe) documented in this encounter Care Teams Pig Machine Supervisor Relationship Specialty Start Date End Date Gorge Man MD PCP - [facility] Medicine 11/28/18 02/18/21 documented as of this encounter
--- OUTSIDE RECORDS SUMMARY | 2024-09-14 13:07 | XMS_ITS | Encounter Summary ---
Author Organization [facility] [place] [address] Care Team Providers Care Acid Recovery Operator Name Role Phone Gorge Man MD Primary Care Provider [phone] Reason for Visit * Reason Comments Skin Check Encounter Details Date Type Department Care Team (Late st Contact Info) Description 05/29/2019 9:45 AM EDT Office Visit Dermatology at [place] [address] [place] [address] Jo Ordaz MD [facility] [place] [address] Neoplasm of uncertain behavior; Seborrheic keratosis, inflamed; Scleroderma; Calcinosis cutis Social History Tobacco Use Types Packs/Day Years [...] Patient Instructions * Patient Instructions* Gwendolyn Gonzales, [facility] - 05/29/2019 9:45 AM EDT Shave Biopsy Wound Care Instructions Your treatment today: You have had a shave biopsy of your skin, which is a removal of tissue for examination under a microscope. This wound will heal without stitches. Allow 3-6 weeks for the wound to heal fully. If bleeding should occur, hold firm, constant pressure against the wound for 15- 20 minutes (with nopeeking). If bleeding continues, call the clinic or go to your local emergency department. Please allow 1-2 weeks for the biopsy results to return. Based on the results, your physician or nurse will contact you by phone or letter; follow-up will be discussed at that time. If in 2 weeks, you have not heard from us, please feel free to call to request your biopsy results. Wound care instructions: Keep the bandage placed [...] to 5pm), please call the clinic at [phone]. After 5pm, and on weekends and holidays, please call the hospital at [phone] and ask for the Transmitter Supervisor Hydraulics Engineer. Seborrheic Keratoses You have been diagnosed today with Seborrheic Keratosis (SK). These are benign (non-cancerous) growths that can occur almost anywhere on the skin. They are very common. SKs can often be mistaken for a wart or a mole. SKs are usually brown, but can range in color from light claire to black. They can measure anywhere from a fraction of an inch to larger than a half-dollar. One distinguishing feature of an SK is that they usually have a waxy, tqyzm-zo-trb-skin appearance.They have been referred to as barnacles of life, because they resemble the barnacles stuck to a ship. Although it is unclear what causes an SK to develop, it is certain that they are not contagious. SKs do have the tendency to run in families. Unless irritated, SKs do not require treatment. However, do seek an appointment if an SK starts to grow rapidly, turns black, or bleeds. You were treated today with Liquid Nitrogen. This is the most common treatment for an irritated SK.Liquid nitrogen is extremely cold, and freezes the surface of the skin, causing the lesion to flakeoff. Treatment with liquid nitrogen can be uncomfortable, but discomfort should subside after a couple of hours. The area treated will look red and irritated, and it may blister up or turn dark, thenfall off. This is normal! You do not need and special treatment for the area, but you may find cold compresses and/or a lightapplication of Vaseline soothing. For best results, do not rub or pick at the healing lesion. Expected healing time is 3-4 weeks. Please contact the clinic at [phone] if the lesion has not fully resolved after 6 weeks. documented in this encounter Progress Notes * Jo Ordaz MD - 05/29/2019 9:45 AM EDT Images from the original note were not included. DERMATOLOGY ESTABLISHED PATIENT CLINIC NOTE Date of service: 05/29/2019 Amber Wells : 1960 Provider: Jo Ordaz MD Chief Complaint Patient presents with ??? Skin Check SKIN HISTORY: 04/17/2014 Soft tissue, (mass-back), excision: Myofibroblastic spindle [...] the left, superficial, cephalad and deep margins. (See Comment.) 05/30/14 Tending pathologist whose signature appears on this report has reviewed all diagnostic slides and has edited the gross and/or microscopic portion of the report in rendering the final pathologic diagnosis. Comment: Extensive repair and inflammatory changes complicate the evaulation for residual desmoid fibromatosis. IHC study suggests the possibility that residual lesion is present near the caudalmargin, however extensive reactive change is also present there. It is recommended that additional surgery be delayed until further healing occurs and that the area be reevaluated clinically after healing is more complete. ?? 05/27/2014 A. Desmoid fibromatosis re-excision: Prior excision site with scar, inflammed granulation tissue and focus suspcious for residual desmoid fibromatosis within 0.1 cm of caudal margin. Comment: Extensive repair and inflammatory changes complicate the evaulation for residual desmoid fibromatosis. IHC study suggests the possibility that residual lesion is present near the caudal margin, however extensive reactive change is also present there. It is recommended that additional surgery be delayed until further healing occurs and that the area be reevaluated clinically after healing is more complete. ?? 04/20/2016 Left anterior thigh, shave biopsy: Seborrheic keratosis. ?? 11/02/2017 Left extensor forearm, punch biopsy: Calcinosis cutis, incidental lentigo. Discussion: The surrounding dermal collagen is homogenous with scant [...] some broadened, compressed fibers that would raise consideration for concomitant scleroderma. Clinical correlation is recommended to determine whether or not these findings represent the lesion in its entirety. ?? Other: - Family history of melanoma (sister) - Actinic keratoses - Scleroderma - Lentigines - Benign Nevi ?? Patient Preferences Preferred name: Amber Preferred contact method with results: myD-H Detailed message including biopsy results okay?: Yes Are there any other people with whom we may discuss your care?: No HPI Amber Wells is a 59 y.o. year old female, established patient last seen by me on 04/18/18. Here today for a full skin examination. Patient has had 3-4 UTI's since November, on and off oral antibiotics. 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 Marroquin. Uses Lidocaine Solution/Cream as needed for pain. Nitroglycerin Ointment, Sildenafil and Amlodipine to help with circulation. She mentions a bothersome rough lesion on the right jawline. She reports diffuse tenderness on the chest. She applied a lot of sunscreen to that area. MEDS: Current Outpatient Medications Medication Sig Dispense Refill ??? ciprofloxacin (CIPRO) [...] Other [Unclassified Drug] Lobster--weird sensation ROS General: feeling well Skin: denies other skin complaints EXAM General: NAD, pleasant, cooperative Skin: Patient was asked to undress to the level of her comfort. Verbalized that the provider's preference is for the patient to remove all clothing and that the provider will not examine areas patient elects to keep covered. Patient's decision was to remove bra and underwear for a total body skin exam. This includes examination of the scalp, hair, face, ears, neck, chest, breasts, abdomen, back, axillae, upper and lower extremities, hands, and feet. Buttocks and genitalia were examined with patient's consent. Significant skin findings: A. Left chest: 0.5cm red papule [Specimen A, Figure 1] Figure 1. A left chest Photo taken and charted with patient consent B. Right jaw-line: inflamed/crusted stuck-on scaly plaque consistent with ISK [Total: 1] C. Trunk and extremities: Iqrj-fmz-mplupe skin of scleroderma; punctate hyperkeratotic erosions on the distal fingertips, worse on the left thumb D. New subcutaneous nodule below the left knee. Left extensor forearm: 2 cm subcutaneous nodule at the site of the partially biopsied lesion of cutaneous calcinosis. Stable and non-tender ASSESSMENT/PLAN: A. BCC - Recommended a skin biopsy to confirm/clarify the nature of the skin lesion. After discussion of potential risks (scarring, bleeding, infection) and recurrence, patient agreed to proceed. - Allergy to lidocaine or epinephrine: No Procedure: Skin biopsy by shave technique Location: left chest Time: 10:22AM Discussed indications for procedure and expectations including risks and benefits. Verbal consent obtained. Skin prep with alcohol. Local anesthesia with 1% xylocaine, 1/100,000 epinephrine. A sampleof the lesion was removed by shave technique to the level of the dermis and submitted to Pathology.Hemostasis obtained (AlCl and/or electrocautery). There were no complications; the pt. tolerated the procedure well. The wound was dressed. Post-procedure expectations, wound care and activity restrictions were reviewed. Follow-up based on pathology results. B. Inflamed Seborrheic Keratosis - Discussed benign nature of lesion(s) and provided reassurance. - Due to irritation present on today's exam and history of symptoms, discussed removal with liquid nitrogen. Discussed risk of hypopigmentation and discomfort, alternatives, and reviewed wound care. - Patient agreed to treat with cryotherapy today. ?? Procedure: Destruction of lesions with cryotherapy (LN2). Number: 1 Location: As noted above Discussed procedure and expectations including risks (including risk of hypopigmentation) and benefits. Verbal consent obtained. Frozen with LN2, 15-30 second thaw time, twice. There were no complications; the patient tolerated the procedure well. Post-procedure expectations and wound care were reviewed. C.Scleroderma - Systemic disease managed by Rheumatology - Botox injection and amlodipine and sildenafil for worsening Raynaud's and digital ulcers - seeingplastics and rheum today D. Cutaneous Calcinosis - Stable Follow up: Based on pathology results; otherwise in 1 year for a follow up and full skin exam, sooner if needed. Reminder placed in system to schedule. Instructed to call with questions or concerns. I am documenting this encounter acting as the scribe for and in the presence of Dr. Ordaz: FREDIS TOTH LPN and Miranda Sargent I performed the above scribed service and agree with the accuracy of the documentation in this encounter. Jo Ordaz MD Ad Operations Associate of Dermatology, Department of Surgery [facility] * Jo Ordaz MD - 05/29/2019 9:45 AM EDT Marie, The biopsy shows BCC. I recommend ED&C. Please notify the patient, review the procedure, and schedule office visit for ED&C. Thank you, DTB * Gwendolyn Gonzales [facility] - 05/29/2019 9:45 AM EDT Patient called the clinic on Monday06/07/19 very anxious after seeing her results posted on myD-H. The call was transferred to ma in the absence of Dr. Ordaz and Fredis Toth LPN. I reviewed thebiopsy results and Dr. Ordaz's recommended treatment plan: Site: Left chest Result: BCC Plan: ED&C Patient reported that she is healing well from the biopsy. She agreed with the proposed plan. I reviewed the procedure in detail. Patient requested to coordinate appointments with a visit scheduled with Dr. Marroquin in Plastics at [facility] in September. Dr. Martin gave verbal okay to defer treatment untilthat time. Patient transferred to Claribel Castro, clinical secretary to board of commissioners to schedule. Appointment for ED&C scheduled for 10/02/[address] Ordaz. * Fredis Toth LPN - 05/29/2019 9:45 AM EDT ED&C performed to the BCC on left chest on 10/02/19. documented in this encounter Plan of Treatment Upcoming Encounters Date Type Department Care Team (Late st Contact Info) Description 10/07/2024 11:30 AM EST Office Visit Dermatology at [address] [place] [address] Jo Ordaz MD [facility] [place] [address] 12/13/2024 11:30 AM EST Appointment [place] [phone] 12/13/2024 1:00 PM EST Office [place] [phone] Kiet Pardo MD [facility] [place] [address] documented as of this encounter Procedures Procedure Name Priority Date/Time Associated Diagnosis Comments SPECIMEN TO PATHOLOGY Routine 05/29/2019 10:35 AM EDT Neoplasm of uncertain behavior SURGICAL PATHOLOGY REPORT Routine 05/29/2019 10:22 AM EDT documented in this encounter Results * Specimen to Pathology (05/29/2019 10:35 AM EDT) AP Specimen 05/29/2019 10:3 5 AM EDT 05/29/2019 4:13 PM EDT Narrative [facility] - 05/29/2019 4:13 PM EDT Specimen requisition ordered. ??Separate Pathology report to follow Resulting Agency Comment Spec In Lab Jo Ordaz MD PATHOLOGY/CYTOLOGY ORDERABLES [facility] [place] [address] * Surgical Pathology Report (05/29/2019 10:22 AM EDT) Final Diagnosis [id number] ? Location: [facility] The signing pathologist has (i) examined the relevant preparation(s) for the specimen(s) and (ii) rendered or confirmed the diagnosis(es). . ?Surgical Pathology DIAGNOSIS Skin, left chest, shave biopsy: - Basal cell carcinoma, superficial type, ulcerated, present at the peripheral specimen edges Electronically signed by: ??Mery Reid MD Verified: ??05/30/2019 ?Dermatopathol ogist Performed at: ??-[facility] Dept. of Pathology, [place], [place] CLINICAL INFORMATION Specimen Submitted: A - Skin, left chest, skin shave biopsy (1) Clinical History and Diagnosis: 0.5 cm red papule; BCC SPECIMEN PROCESSING A - Labeled/Fixativ e: Left chest, formalin. Quantity/Size: ??Single, 0.6 x 0.4 x 0.1 cm. Tissue Description: Shave of claire skin. Sections/Proces sing: Inked, bisected and entirely submitted in 1 cassette labeled A1. ??ejr 05/30/2019 4:59 PM EDT [facility] SPECIMEN FROM SKIN / Unknown 05/29/2019 10:22 AM EDT 05/29/2019 10:22 AM EDT Jo Ordaz MD PATHOLOGY/CYTOLOGY ORDERABLES [facility] [place] [address] documented in this encounter Visit Diagnoses Diagnosis Neoplasm of uncertain behavior Neoplasm of uncertain behavior, site unspecified Seborrheic keratosis, inflamed Inflamed seborrheic keratosis Scleroderma Systemic sclerosis Calcinosis cutis Degenerative skin disorder documented in this encounter Care Teams Acid Recovery Operator Relationship Specialty Start Date End Date Gorge Man MD PCP - [facility] Medicine 11/28/18 02/18/21 documented as of this encounter
--- OUTSIDE RECORDS SUMMARY | 2024-09-14 13:07 | XMS_ITS | Encounter Summary ---
[place] [address] Care Team Providers Care Cuff Folder Name Role Phone Gorge Man MD Primary Care Provider [phone] Encounter Details Date Type Department Care Team (Late st Contact Info) Description 12/26/2019 Telephone Nephrology [place] [phone] Marquita Cam Social History Tobacco Use Types [...] * Telephone Encounter - Marquita Cam - 12/26/2019 1:54 PM EST LMOM for PT to call to [facility] documented in this encounter Plan of Treatment Upcoming Encounters Date Type Department Care Team (Late st Contact Info) Description 10/07/2024 11:30 AM EST Office Visit Dermatology at [address] [place] [address] Jo Ordaz MD [facility] [place] [address] 12/13/2024 11:30 AM EST Appointment [place] [address] 12/13/2024 1:00 PM EST Office Visit [place] [phone] Kiet Pardo MD [facility] [place] [address] documented as of this encounter Visit Diagnoses Not on filedocumented in this encounter Care Teams Cuff Folder Relationship Specialty Start Date End Date Gorge Man MD PCP - [facility] Medicine 11/28/18 02/18/21 documented as of this encounter
--- OUTSIDE RECORDS SUMMARY | 2024-09-14 13:07 | XMS_ITS | Encounter Summary ---
[place] [address] Care Team Providers Care Hand Weaver Name Role Phone Gorge Man MD Primary Care Provider [phone] Encounter Details Date Type Department Care Team (Late st Contact Info) Description 06/21/2019 Telephone [place] [phone] Antoine Jung RN Social History Tobacco Use Types Packs/Day [...] Telephone Encounter - Antoine Jung RN - 06/21/2019 3:00 PM EDT Patient states she has [place] medicaid. Prescription will not go through. Prescription routed to attending. * Telephone Encounter - Antoine Jung RN - 06/21/2019 1:30 PM EDT Images from the original note were not included. Felipa Taveras MD Gavalakis, Rory A, RN Caller: Unspecified (Today, 10:24 AM) ?? Oscar Schultz, I sent the prescription for Keflex for 10 days, and I have sent an in basket message to the patient. * Telephone Encounter - Antoine Jung RN - 06/21/2019 12:37 PM EDT Patient calls and leaves message regarding finger. Message states finger appears infected. She has sent a [employer] message as well with pictures. Patient requests prescription for abx (previously keflex?) be sent to [facility]. Returned call to patient, unavailable. Message left with call back number provided. documented in this encounter Plan of Treatment Upcoming Encounters Date Type Department Care Team (Late st Contact Info) Description 10/07/2024 11:30 AM EST Office Visit Dermatology at [address] [phone] Jo Ordaz MD [facility] [place] [address] 12/13/2024 11:30 AM EST Appointment [place] [phone] 12/13/2024 1:00 PM EST Office Visit [place] [phone] Kiet Pardo MD [facility] [place] [address] documented as of this encounter Visit Diagnoses Not on filedocumented in this encounter Care Teams Hand Weaver Relationship Specialty Start Date End Date Gorge Man MD PCP - [facility] Medicine 11/28/18 02/18/21 documented as of this encounter
--- OUTSIDE RECORDS SUMMARY | 2024-09-14 13:07 | XMS_ITS | Encounter Summary ---
[place] [address] Care Team Providers Care Courtesy Bus Driver Name Role Phone Gorge Man MD Primary Care Provider [phone] Reason for Visit * Reason Onset Date Comments Other 03/16/2020 Encounter Details Date Type Department Care Team (Late st Contact Info) Description 03/16/2020 Telephone [place] [phone] Antoine Jung, RN Other Social History Tobacco Use Types Packs/Day Years [...] Telephone Encounter - Antoine Jung RN - 03/16/2020 10:57 AM EDT Patient calls requesting abx for fingers. Has sent mydh message as well. Prescription has been routed. Patient updated Via mydh and phone call. She will contact clinic if any issues arise. documented in this encounter Plan of Treatment Upcoming Encounters Date Type Department Care Team (Late st Contact Info) Description 10/07/2024 11:30 AM EST Office Visit Dermatology at [facility] [address] [place] [address] [facility] [place] [address] 12/13/2024 11:30 AM EST Appointment [place] [phone] 12/13/2024 1:00 PM EST Office [place] [phone] [facility] [place] [address] documented as of this encounter Visit Diagnoses Not on filedocumented in this encounter Care Teams Courtesy Bus Driver Relationship Specialty Start Date End Date Gorge Man MD PCP - [facility] Medicine 11/28/18 02/18/21 documented as of this encounter
--- OUTSIDE RECORDS SUMMARY | 2024-09-14 13:07 | XMS_ITS | Encounter Summary ---
Author Organization [facility] [place] [address] Care Team Providers Care Business Education Professor Name Role Phone Gorge Man MD Primary Care Provider [phone] Encounter Details Date Type Department Care Team (Late st Contact Info) Description 06/01/2020 Orders Only [place] [address] Solomon Quiros MD [facility] [place] [address] Desmoid fibromatosis (Primary Dx) Social History Tobacco Use Types [...] [facility] [address] [place] [address] Jo Ordaz MD [facility] [place] [address] 12/13/2024 11:30 AM EST Appointment Pulmonology at [place] [phone] 12/13/2024 1:00 PM EST Office [place] [address] Kiet Pardo MD [facility] [place] [address] documented as of this encounter Results * Request for 2nd [...] please contact the number below. ? Narrative 06/01/2020 4:01 PM EDT EXAMINATION: REQUEST [...] this report, please contact the number below. Solomon Quiros MD [facility] OUTSIDE INTERPRE TATION ORDERABLES documented in this encounter Visit Diagnoses Diagnosis Desmoid fibromatosis- Primary Other benign neoplasm of connective and other soft tissue of unspecified site Desmoid fibromatosis Other benign neoplasm of connective and other soft tissue of unspecified site documented in this encounter Care Teams Business Education Professor Relationship Specialty Start Date End Date Gorge Man MD PCP - [facility] Medicine 11/28/18 02/18/21 documented as of this encounter
--- OUTSIDE RECORDS SUMMARY | 2024-09-14 13:07 | XMS_ITS | Encounter Summary ---
[place] [address] Care Team Providers Care Chief Dog License Inspector Name Role Phone Gorge Man MD Primary Care Provider [phone] Reason for Visit * Reason Onset Date Comments Prior Authorization 12/15/2018 Encounter Details Date Type Department Care Team (Late st Contact Info) Description 12/15/2018 Telephone [place] [phone] Jodi Pressley Prior Authorization Social History Tobacco [...] * Telephone Encounter - Jodi Pressley - 12/15/2018 8:57 AM EST Medication Prior Authorization Ceasar Medication name/dose/directions: Esomeprazole DR 40mg - twice daily Rationale for request: GERD Health plan: [place] Medicaid ([facility]LY [facility]) Authorizing sales solutions representative name: Leah Faxed to health plan on: 12/15/18 Health plan decision: Approved Quantity approved: 180 per 90 days Authorization number: [id number] Start date: 12/20/18 End date: 03/19/19 documented in this encounter Plan of Treatment Upcoming Encounters Date Type Department Care Team (Late st Contact Info) Description 10/07/2024 11:30 AM EST Office Visit Dermatology at [facility] [address] [place] [address] Jo Ordaz MD [facility] [place] [address] 12/13/2024 11:30 AM EST Appointment [place] [address] 12/13/2024 1:00 PM EST Office [place] [address] Kiet Pardo MD [facility] [place] [address] documented as of this encounter Visit Diagnoses Not on filedocumented in this encounter Care Teams Chief Dog License Inspector Relationship Specialty Start Date End Date Gorge Man MD PCP - [facility] Medicine 11/28/18 02/18/21 documented as of this encounter
--- OUTSIDE RECORDS SUMMARY | 2024-09-14 13:07 | XMS_ITS | Encounter Summary ---
Author Organization [facility] Address [facility] [place] [address] Care Team Providers Care Music Engraver Name Role Phone Gorge Man MD Primary Care Provider [phone] Encounter Details Date Type Department Care Team (Latest Contact Info) Description 01/31/2019 9:00 AM EDT - 01/31/2019 11:27 AM EDT Hospital En[place] [address] Andrew Berger MD [facility] [place] [address] Discharge Disposition: Home Social History Tobacco Use [...] Sign Reading Time Taken Comments Blood Pressure 111/74 01/31/2019 10:50 AM EDT Pulse 82 01/31/2019 10:50 AM EDT Temperature 36.9 ??C (98.4 ??F) 01/31/2019 9:09 AM ED T Respiratory Rate 18 01/31/2019 10:50 AM EDT Oxygen Saturation 98% 01/31/2019 10:50 AM EDT Inhaled Oxygen Concentration - - [...] more? Visit our health information library at [email or web address]. You can also view health information on [employer], your personal patient account. Log in or sign uptoday. Enter Z368 in the search box to learn more about Learning About Colonoscopy. Current as of: February 13, 2018 Content Version: 11.9 ?? [id number] [employer]. Care instructions adapted under license by [facility]. If you have questions about a medical condition or this instruction, always ask your healthcare professional. [employer] disclaims any warranty or liability for your [...] 11/28/2018 02/14/2020 fosinopril (MONOPRIL) 20 mg TabletIndications:Jaimie petersona,CKD (chronic kidney [...] Berger MD - 01/31/2019 10:42 AM EDT [facility] Operative Note Patient Name: Amber Wells : [id number] MR#: [id number] Case Date: 01/31/2019 Surgeon: Surgeon(s) and Role: [...] AM EST Office Visit Dermatology at [address] [address] Jo Ordaz MD [facility] [address] 12/13/2024 11:30 AM EST [place] [address] 12/13/2024 1:00 PM EST [place] [address] Kiet Pardo MD [facility] [address] documented as of this encounter Procedures Procedure Name Priority Date/Time Associated Diagnosis Comments SURGICAL PATHOLOGY REPORT Routine 01/31/2019 10:24 AM EDT SPECIMEN TO PATHOLOGY Routine 01/31/2019 10:24 AM EDT COLONOSCOPY, DIAGNOSTIC (WRVU 3.26) 01/31/2019 9:46 AM EDT 5 yr surv from 04/04/13 COLONOSCOPY Routine 01/31/2019 9:31 AM EDT documented in this encounter Results * Surgical Pathology Report (01/31/2019 10:24 AM EDT) Final Diagnosis [id number] ? Location: 4T; EA09; A The signing pathologist has (i) examined the relevant preparation(s) for the specimen(s) and (ii) rendered or confirmed the diagnosis(es). . ?Surgical Pathology DIAGNOSIS Sigmoid colon, ??polypectomy: Hyperplastic polyp. CR-PX Electronically signed by: ??Danny Rowland MD Verified: ??02/04/2019 ?Pathologist Performed at: ??-[facility] Dept. of Pathology, [place], [place] CLINICAL INFORMATION Specimen Submitted: A - Sigmoid colon polyp 5mm Clinical History and Diagnosis: 58-year-old female screening colonoscopy SPECIMEN PROCESSING A - Labeled/Fixativ e: Sigmoid colon polyp 5 mm, formalin. Quantity/Size: Single, 0.3 cm. Tissue Description: Soft, pink tissue. Sections/Proces sing: Submitted en toto ??in 1 cassette labeled A1. ??sns 02/04/2019 2:37 PM EDT [facility] GI Biopsy 01/31/2019 10:2 4 AM EDT 01/31/2019 10:24 AM EDT Andrew Berger MD PATHOLOGY/CYTOLOGY O RDERABLES [facility] [place] [address] * Specimen to Pathology (01/31/2019 10:24 AM EDT) AP Specimen 01/31/2019 10:2 4 AM EDT 01/31/2019 1:02 PM EDT Narrative [facility] - 01/31/2019 1:02 PM EDT Specimen requisition ordered. ??Separate Pathology report to follow Resulting Agency Comment Spec In Lab Andrew Berger MD PATHOLOGY/CYTOLOGY O YVETTE [facility] [place] [address] * COLONOSCOPY (01/31/2019 9:31 AM EDT) COLONOSCOPY [facility] Endoscopy Procedure Date: 01/31/2019 9:31 AM ? Patient Name: Amber Wells ? N: [id number] ? Date of : 1960 ? Age: 58 ? Order #: [id number] ? Instrument Name: [id number] ? Procedure: ? Colonoscopy Indications: ? Abdominal pain, Constipation Providers: ? Andrew Berger MD, Davin Man ? Tamika Patterson, Corn Sheller Operator Referring MD: ?Gorge Man MD Medicines: ? [...] by the physician, the ? nurse, the historian dramatic arts and the ? civil drafting technician. The procedure was ? verified in [...] preparation was evaluated using ? the BBPS ([place] Bowel Preparation ? Scale) with scores of: [...] 0930 (New Bag - Prov ider: Jessica Pittman RN)0945 (New Bag - Provider: Sharon Lemus CRNA) documented in this encounter Care Teams Music Engraver Relationship Specialty Start Date End Date Gorge Man MD PCP - [facility] Medicine 11/28/18 02/18/21 documented as of this encounter
--- OUTSIDE RECORDS SUMMARY | 2024-09-14 13:07 | XMS_ITS | Encounter Summary ---
[place] [address] Care Team Providers Care Automobile Club Information Clerk Name Role Phone Gorge Man MD Primary Care Provider [phone] Encounter Details Date Type Department Care Team (Late st Contact Info) Description 05/17/2019 Telephone [place]phrology [place] [phone] Mahsa Fallon Social History Tobacco Use Types [...] * Telephone Encounter - Mahsa Fallon - 05/17/2019 9:36 AM EDT Spoke to pt she wanted apt. 05/29 which she already has a few. Unfortunately she is an RV2 pt and their is clinic but with a different doctor. I tried explaining to pt each doctor has one a month and offered her 06/27, which will not work. Pt stated it would probably be November for apt. She will call us first and try and coordinate all her others. [place] documented in this encounter Plan of Treatment Upcoming Encounters Date Type Department Care Team (Late st Contact Info) Description 10/07/2024 11:30 AM EST Office Visit Dermatology at [facility] [address] [place] [address] Jo Ordaz MD [facility] [place] [address] 12/13/2024 11:30 AM EST Appointment [place] [phone] 12/13/2024 1:00 PM EST Office [place] [phone] Kiet Pardo MD [facility] [place] [address] documented as of this encounter Visit Diagnoses Not on filedocumented in this encounter Care Teams Automobile Club Information Clerk Relationship Specialty Start Date End Date Gorge Man MD PCP - [facility] Medicine 11/28/18 02/18/21 documented as of this encounter
--- OUTSIDE RECORDS SUMMARY | 2024-09-14 13:07 | XMS_ITS | Encounter Summary ---
Author Organization [place] [address] Care Team Providers Care Materials Clerk Name Role Phone Gorge Man MD Primary Care Provider Encounter Details Date Type Department Care Team (Late st Contact Info) Description 05/29/2019 11:30 AM EDT Office [place] [address] Yu Mcdonough, [facility] [place] [address] Scleroderma; CKD (chronic kidney disease) stage 3, [...] Sign Reading Time Taken Comments Blood Pressure 119/67 05/29/2019 11:34 AM EDT Pulse 79 05/29/2019 11:34 AM EDT Temperature 36.7 ??C (98.1 ??F) 05/29/2019 11:34 AM E DT Respiratory Rate - - Oxygen Saturation 98% 05/29/2019 11:34 AM EDT Inhaled Oxygen Concentration - - Weight 66.2 kg (146 lb) 05/29/2019 11:34 AM EDT Height 170.2 cm (5' 7) 05/29/2019 11:34 AM EDT Body Mass Index 22.87 05/29/2019 11:34 AM EDT documented in this encounter Progress Notes * Yu Mcdonough, - 05/29/2019 11:30 AM EDT PROBLEM LIST: 1. Diffuse systemic sclerosis. (A) Initially diagnosed [place] [address] Placido Lora at [facility] in [place]. Then followed by Dr. Peyton Hinton in [facility] in [place] in 04/2010. . Echo and PFTs 12/09/11 both normal. (B) Treatment in the past has included intermittent penicillamine and methotrexate, however, she has been off immunosuppressive therapy since approximately 2005. (C) Hospitalization in 03/2010 in [place] with scleroderma hypertensive renal crisis, on dialysis for two months ending in mid 06/2010. (D) One visit with Dr. Ten Gonzalez in [place], [place] in late 2009. 2. Chronic kidney disease, stage III, with associated anemia. Currently followed by Dr. Sumit Sawyer in nephrology. 3. Raynaud's is significant- had b/l ulnar artery transfer into cephalic vein. botox injections with no significant improvement. 4. GERD. HPI: I last saw Amber in November. She is taking sildenafil. She has also been taking norvasc 10mg daily. She is tolerating these medications without any difficulty. She is seeing Dr. Marroquin again today for Botox injections for her fingers. She continues to have pitting in multiple digits although I do not see any necrotic areas or open ulcers today. Her GERD is well controlled. Her blood pressure is normal today. She is due for labs including a urinalysis, CBC and CMP. She has not seen nephrology in a while. She has noticed some areas of calcinosis develop on her left leg. She denies any shortness of breath or chest pain. Her weight is up about 20 pounds from her average adult weight and she wonders if losing weight would make any of her condition better. Social History: she got to her long-time boyfriend in July 2018 ??Physical examination: General: Awake alert and oriented ??3 in no acute distress Psych: Mood and affect normal and appropriate Mouth: Dry mucous membranes no oral ulcers Eyes: No scleral icterus Skin: Tight skin around her mouth and on her hands up to her elbows. there is pitting in multiple fingertips. No ulcers right now. She has telangiectasias on her face. Joints: Joint contractures in all of her fingers. There is no synovitis Neuro: No focal deficits Hrt: RR, no M/r/g Lungs: CTA b/l Assessment/Plan: Systemic sclerosis with GERD, Raynaud's, sclerodactyly and a hx of scleroderma renal crisis and now stage 3 CKD followed in nephrology. Her raynaud's phenomenon has been the most difficult part of her scleroderma. Overall, Amber appears quite stable. Fingers do not look too bad right now. I do not see any progression of skin disease. She is active, has a good appetite, is overall quite happy. She does not need any medications refilled today. We will check labs including a CBC CMP and urinalysis. We will try to get her plugged back into nephrology as well. I will see her back in 6 months and will try to coordinate appointments with her other providers. documented in this encounter Plan of Treatment Upcoming Encounters Date Type Department Care Team (Late st Contact Info) Description 10/07/2024 11:30 AM EST Office Visit Dermatology at [facility] [address] [place] [address] Jo Ordaz MD [facility] [place] [address] 12/13/2024 11:30 AM EST Appointment [place] [phone] 12/13/2024 1:00 PM EST Office [place] [address] Kiet Pardo MD [facility] [place] [address] documented as of this encounter Procedures Procedure Name Priority Date/Time Associated Diagnosis Comments HEMOGRAM Routine 05/29/2019 12:36 PM EDT Scleroderma CKD (chronic kidney disease) stage 3, GFR 30-59 ml/min DIFFERENTIAL, AUTOMATED Routine 05/29/2019 12:36 PM EDT Scleroderma CKD (chronic kidney disease) stage 3, GFR 30-59 ml/min CBC (WITH DIFF) Routine 05/29/2019 12:36 PM EDT Scleroderma CKD (chronic kidney disease) stage 3, GFR 30-59 ml/min COMPREHENSIVE METABOLIC PANEL Routine 05/29/2019 12:36 PM EDT Scleroderma CKD (chronic kidney disease) stage 3, GFR 30-59 ml/min URINALYSIS WITH REFLEX CULTURE Routine 05/29/2019 12:27 PM EDT Scleroderma CKD (chronic kidney disease) stage 3, GFR 30-59 ml/min documented in this encounter Results * Differential, Automated (05/29/2019 12:36 PM EDT) Neutrophil % 66.3 % [facility] Neutrophil Absolute 4.51 1.70 - 6.10 x10(3)/[facility] Lymph % 23.9 % [facility] Lymphocytes Abs 1.6 0.9 - 3.2 x10(3)/[facility] Monocyte % 6.8 % [facility] Monocyte Abs 0.5 0.3 - 0.9 x10(3)/[facility] Eos % 1.8 % [facility] Eosinophils Abs 0.1 0.0 - 0.4 x10(3)/[facility] Basophil % 0.9 % [facility] Baso Absolute 0.1 0.0 - 0.1 x10(3)/[facility] Immature Gran % 0.30 % [facility] Comment: Immature granulocytes(IG's)percentage and absolute count will include metamyelocytes, myelocytes, and promyelocytes. Blood smears from CBCs yielding IG's will be scanned manually for concordance. If this scan disagrees with the automated IG or if promyelocytes are noted, a manual differential will be performed. Immature Gran Absolute 0.02 0.00 - 0.04 x10(3)/[facility] Blood specimen (specimen) 05/29/2019 12:36 PM EDT 05/29/2019 12:47 PM EDT Narrative Resulting Agency Comment Spec In Lab Yu Mcdonough DO HEMATOLOGY ORDER NOE [facility] [place] [address] * (ABNORMAL) Hemogram (05/29/2019 12:36 PM EDT) White Blood Cell 6.8 4.0 - 9.5 x10(3)/[facility] Red Blood Cell 4.29 4.00 - 5.21 x10(6)/[facility] Hemoglobin 13.3 11.7 - 15.5 gm/dL [facility] Hematocrit 41.2 35.7 - 45.8 % [facility] Mean Cell Volume 96.0(H) 82.6 - 94.4 fL [facility] Mean Cell Hemoglobin 31.0 27.1 - 32.0 pg [facility] Mean Cell Hemoglobin Concentration 32.3 31.7 - 35.0 gm/dL [facility] Platelet 297 145 - 357 x10(3)/[facility] RDW Standard Deviation 46.9(H) 37.0 - 46.0 fL [facility] RDW coefficient of variation 13.2 11.5 - 14.1 % [facility] Mean Platelet Volume 10.8 7.6 - 12.9 fL [facility] NRBC% auto 0.0 % [facility] NRBC Absolute 0.000 0.000 - 0.000 x10(3)/mc L [facility] Blood specimen (specimen) 05/29/2019 12:36 PM EDT 05/29/2019 12:47 PM EDT Narrative Resulting Agency Comment Spec In Lab Yu Mcdonough DO HEMATOLOGY ORDER NOE [facility] [place] [address] * (ABNORMAL) Comprehensive metabolic panel (non-fasting) (05/29/2019 12:36 PM EDT) Glucose 100 65 - 199 mg/dL [facility] Comment:Diabetes: >=200 mg/d L plus symptoms Blood Urea Nitrogen 22(H) 8 - 18 mg/dL [facility] Creatinine 1.32(H) 0.70 - 1.20 mg/dL [facility] Sodium 138 135 - 145 mmol/L [facility] Potassium 5.0 3.5 - 5.0 mmol/L [facility] Comment: Please note: ??Patients with WBC >100,000 may have falsely elevated Potassium levels. ??For accurate Potassium quantification in these patients send serum separator tube (gold top) for subsequent determinations. ??Contact the Clinical Chemistry Laboratory if there are any questions. Chloride 102 98 - 107 mmol/L [facility] Carbon Dioxide 23 22 - 31 mmol/L [facility] Anion Gap 13 5 - 15 mmol/L [facility] Calcium 9.4 8.5 - 10.5 mg/dL [facility] Protein, Total 7.3 6.1 - 8.0 gm/dL [facility] Albumin 4.5 3.2 - 5.2 gm/dL [facility] Aspartate Aminotransferase 16 0 - 30 unit/L [facility] Alanine Aminotransferase 10 0 - 30 unit/L [facility] Alkaline Phosphatase 95 40 - 104 unit/L [facility] Bilirubin, Total 0.3 0.2 - 1.3 mg/dL [facility] Est Glomerular Filtration Rate 44(L) >=60 mL/min/1. 73 m?? [facility] Comment: The eGFR was calculated using the CKD-EPI equation. As with all creatinine based estimates of kidney function, eGFR values calculated with the CKD-EPI equation are not accurate in patients with acute kidney failure, extremes of body mass or the acutely ill. http://[employer]/[facility] TALIHINAnkf eGFR 51(L) >=60 mL/min/1. 73 m?? [facility] Comment: The eGFR was calculated using the CKD-EPI equation. As with all creatinine based estimates of kidney function, eGFR values calculated with the CKD-EPI equation are not accurate in patients with acute kidney failure, extremes of body mass or the acutely ill. http://[employer]/DHMCnkf Blood specimen (specimen) 05/29/2019 12:36 PM EDT 05/29/2019 12:47 PM EDT Narrative Resulting Agency Comment Spec In Lab Yu Mcdonough DO CHEMISTRY ORDERA BLES [facility] [place] [address] * Urinalysis with reflex Culture (05/29/2019 12:27 PM EDT) Glucose, Urine Dipstick Negative Negative mg/dL [facility] Protein, Urine Dipstick Negative Negative mg/dL [facility] Bilirubin, Urine Dipstick Negative Negative mg/dL [facility] Comment: Clinical correlation required for positive Urine Bilirubin results as false positive may occur with some drugs and drug related products. If a false positive is suspected a serum total bilirubin should be considered if clinically indicated. Urobilinogen, Urine Dipstick Normal Normal mg/dL [facility] pH, Urn (dipstick) 7.0 5.0 - 8.0 [facility] Blood, Urine Dipstick Negative Negative mg/dL [facility] Ketone, Urine Dipstick Negative Negative mg/dL [facility] Nitrite, Urine Dipstick Negative Negative [facility] Leukocytes, Urine Dipstick Negative Negative mcL [facility] Appearance, Urine Dipstick Clear Clear [facility] Specific [place] Urine Automated 1.013 1.002 - 1.030 [facility] Color, Urine Dipstick Yellow Yellow [facility] Reflex to Culture No [facility] Urine specimen (specimen) 05/29/2019 12:27 PM EDT 05/29/2019 12:35 PM EDT Narrative Resulting Agency Comment Spec In Lab Yu Mcdonough DO URINE ORDERABLES [facility] [place] [address] documented in this encounter Visit Diagnoses Diagnosis Scleroderma Systemic sclerosis CKD (chronic kidney disease) stage 3, GFR 30-59 ml/min Chronic kidney disease, Stage III (moderate) documented in this encounter Care Teams Materials Clerk Relationship Specialty Start Date End Date Gorge Man MD PCP - [facility] Medicine 11/28/18 02/18/21 documented as of this encounter
--- OUTSIDE RECORDS SUMMARY | 2024-09-14 13:07 | XMS_ITS | Encounter Summary ---
Author Organization [facility] [place] [address] Care Team Providers Care Figure Clerk Name Role Phone Gorge Man MD Primary Care Provider Reason for Visit * Reason Onset Date Comments Appointment 03/29/2019 Re-schedule appt with Dr. Ordaz Encounter Details Date Type Department Care Team (Late st Contact Info) Description 03/29/2019 Telephone Dermatology at [address] [address] Kalli Walsh Appointment (Re-schedule appt with Dr. Ordaz) Social History Tobacco Use Types Packs/Day Years [...] encounter Miscellaneous Notes * Telephone Encounter - Aminata Benítez - 04/01/2019 2:43 PM EDT I left a voicemail for Amber Priscilla requesting a call back. * Telephone Encounter - Nico Kalli G - 03/29/2019 10:42 AM EDT Caller and relationship to patient (if other than patient): Self Best time to reach caller: SABINO Message or Reason for Call: Pt received letter about cancelling appt for 05/29/[address] Ordaz. She has made two other appts here at [facility] for the same day and is very concerned about having this appointment cancelled. She doesn't want to drive here for just one appt. Is there another provider she might see that day? Appt Needed and Reason: Yes F/U Reschedule Provider: Orlin documented in this encounter Plan of Treatment Upcoming Encounters Date Type Department Care Team (Late st Contact Info) Description 10/07/2024 11:30 AM EST Office Visit Dermatology at [place] [address] [place] [address] Jo Ordaz MD [facility] [place] [address] 12/13/2024 11:30 AM EST Appointment [place] [address] 12/13/2024 1:00 PM EST Office [place] [address] Kiet Pardo MD [facility] [place] [address] documented as of this encounter Visit Diagnoses Not on filedocumented in this encounter Care Teams Figure Clerk Relationship Specialty Start Date End Date Gorge Man MD PCP - [facility] Medicine 11/28/18 02/18/21 documented as of this encounter
--- OUTSIDE RECORDS SUMMARY | 2024-09-14 13:07 | XMS_ITS | Encounter Summary ---
Author Organization [facility] [place] [address] Care Team Providers Care Fretted String Instrument Repairer Name Role Phone Gorge Man MD Primary Care Provider [phone] Reason for Visit * Reason Onset Date Comments Medication Refill 02/14/2020 Encounter Details Date Type Department Care Team (Late st Contact Info) Description 02/14/2020 [place] [address] Yu Mcdonough, [facility] [place] [address] CKD (chronic kidney disease) stage 3, GFR [...] Visit Dermatology at [address] [place] [address] Jo Ordaz MD [facility] [place] [address] 12/13/2024 11:30 AM EST [place]ment [place] [address] 12/13/2024 1:00 PM EST Office [place] [phone] Kiet Pardo MD [facility] [place] [address] documented as of this encounter Visit Diagnoses Diagnosis CKD (chronic kidney disease) stage 3, GFR 30-59 ml/min Chronic kidney disease, Stage III (moderate) Scleroderma Systemic sclerosis documented in this encounter Care Teams Fretted String Instrument Repairer Relationship Specialty Start Date End Date Gorge Man MD PCP - [facility] Medicine 11/28/18 02/18/21 documented as of this encounter
--- OUTSIDE RECORDS SUMMARY | 2024-09-14 13:07 | XMS_ITS | Encounter Summary ---
Author [place] [address] Care Team Providers Care World Travel Counselor Name Role Phone Gorge Man MD Primary Care Provider Encounter Details Date Type Department Care Team (Late st Contact Info) Description 10/14/2019 Telephone [place] [phone] Krystal Harris Social History Tobacco Use Types Packs/Day Years [...] encounter Miscellaneous Notes * Telephone Encounter - Krystal Harris - 10/14/2019 9:11 AM EST Left msg for patient to call. Wanted to check and see if she had her CT scan that Dr. Marroquin ordered stated that she is having problems getting an MRI documented in this encounter Plan of Treatment Upcoming Encounters Date Type Department Care Team (Late st Contact Info) Description 10/07/2024 11:30 AM EST Office Visit Dermatology at [facility] [address] [place] [phone] Jo Ordaz MD [facility] [place] [address] 12/13/2024 11:30 AM EST [place] [phone] 12/13/2024 1:00 PM EST Office [place] [address] Kiet Pardo MD [facility] [place] [address] documented as of this encounter Visit Diagnoses Not on filedocumented in this encounter Care Teams World Travel Counselor Relationship Specialty Start Date End Date Gorge Man MD PCP - General [facility] Medicine 11/28/18 02/18/21 documented as of this encounter
--- OUTSIDE RECORDS SUMMARY | 2024-09-14 13:07 | XMS_ITS | Encounter Summary ---
[place] [address] Care Team Providers Care Cardiac Rn Name Role Phone Gorge Man MD Primary Care Provider [phone] Encounter Details Date Type Department Care Team (Late st Contact Info) Description 01/28/2019 [place] [address] Emily Bradley Social History Tobacco Use Types Packs/Day Years [...] encounter Miscellaneous Notes * Telephone Encounter - Emily Bradley - 01/28/2019 8:35 AM EDT Called pt to schedule a colo in a month or two with Dr. Berger. No answer so left vm. documented in this encounter Plan of Treatment Upcoming Encounters Date Type Department Care Team (Late st Contact Info) Description 10/07/2024 11:30 AM EST Office Visit Dermatology at [facility] [address] [place] [address] Jo Ordaz MD [facility] [place] [address] 12/13/2024 11:30 AM EST [place] [phone] 12/13/2024 1:00 PM EST Office [place] [address] Kiet Pardo MD [facility] [place] [address] documented as of this encounter Visit Diagnoses Not on filedocumented in this encounter Care Teams Cardiac Rn Relationship Specialty Start Date End Date Gorge Man MD PCP - [facility] Medicine 11/28/18 02/18/21 documented as of this encounter
--- OUTSIDE RECORDS SUMMARY | 2024-09-14 13:08 | XMS_ITS | Encounter Summary ---
Author Organization [facility]ly [facility] [address] [address] Care Team Providers Care Welder Fitter Apprentice Name Role Phone Yaritza Pierre MD Primary Care Provider [phone] Encounter Details Date Type Department Care Team (Late st Contact Info) Description 01/17/2018 External [place] [address] Provider, Scanning Social History Tobacco Use Types [...] 11:30 AM EST Office Visit Dermatology at [facility] [address] [place] [phone] Jo Ordaz MD [facility] [place] [address] 12/13/2024 11:30 AM EST Appointment [place] [address] 12/13/2024 1:00 PM EST Office Visit [place] [address] Kiet Pardo MD [facility] [place] [address] documented as of this encounter Procedures Procedure Name Priority Date/Time Associated Diagnosis Comments SURGICAL PATHOLOGY SCAN Routine 01/17/2018 documented in this encounter Results * Scan Doc: Surgical Pathology (01/17/2018) Andrew Berger MD MEDIA MGR SCAN EXT O RDR/RSLT documented in this encounter Visit Diagnoses Not on filedocumented in this encounter Care Teams Welder Fitter Apprentice Relationship Specialty Start Date End Date Yaritza Pierre MD [address] [place] [address] PCP - General 03/27/12 11/27/18 documented as of this encounter
--- OUTSIDE RECORDS SUMMARY | 2024-09-14 13:08 | XMS_ITS | Encounter Summary ---
[place] [address] Care Team Providers Care Refractory Products Supervisor Name Role Phone Yaritza Pierre MD Primary Care Provider [phone] Reason for Visit * Reason Onset Date Comments Other 03/09/2018 Encounter Details Date Type Department Care Team (Late st Contact Info) Description 03/09/2018 [place] [phone] Antoine Jung, RN Other Social History Tobacco [...] Telephone Encounter - Antoine Jung RN - 03/09/2018 9:31 AM EDT Patient unsure about persantine, states fainted in fall when started on Trental and worried about adding new medication to norvasc and sildenafil. Would prefer to hold off adding new medication. * Telephone Encounter - Antoine Jung RN - 03/09/2018 8:26 AM EDT Patient sends message complaining of pain to 2 ulcers located on left thumb and the left index finger. Patient got botox injection a few weeks ago. Takes a few weeks to to show difference per patientand weather has not helped. Previously placed on abx for 10 days, improved at that time, but has since started to become reddened again. No reported fevers. She will send a picture via [facility] of current view of fingers. Encouraged patient to be evaluated by health care personnel (pcp, walk-in, ed) if symptoms persist or worsen. documented in this encounter Plan of Treatment Upcoming Encounters Date Type Department Care Team (Late st Contact Info) Description 10/07/2024 11:30 AM EST Office Visit Dermatology at [address] [address] Jo Ordaz MD [facility] [place] [address] 12/13/2024 11:30 AM EST App[place]ment [place] [address] 12/13/2024 1:00 PM EST Office [place] [address] Kiet Pardo MD [facility] [place] [address] documented as of this encounter Visit Diagnoses Not on filedocumented in this encounter Care Teams Refractory Products Supervisor Relationship Specialty Start Date End Date Yaritza Pierre MD [address] [place] [address] PCP - General 03/27/12 11/27/18 documented as of this encounter
--- OUTSIDE RECORDS SUMMARY | 2024-09-14 13:08 | XMS_ITS | Encounter Summary ---
Author Organization [facility] [place] [address] Care Team Providers Care Mission Assessment Specialist Name Role Phone Yaritza Pierre MD Primary Care Provider [phone] Encounter Details Date Type Department Care Team (Latest Contact Info) Description 10/06/2017 9:45 AM EST Laboratory Appointment Lab [address] [place] [phone] Renal insufficiency Social History Tobacco Use Types Packs/Day Years [...] Dermatology at [facility] [address] [address] Jo Ordaz MD [facility] [place] [address] 12/13/2024 11:30 AM EST Appointment [place] [address] 12/13/2024 1:00 PM EST Office [place] [phone] Kiet Pardo MD [facility] DR RHEUMATOLOGY [place] [phone] documented as of this encounter Procedures Procedure Name Priority Date/Time Associated Diagnosis Comments CREATININE Routine 10/06/2017 10:13 AM EST Renal insufficiency documented in this encounter Results * (ABNORMAL) Creatinine (10/06/2017 10:13 AM EST) Creatinine 1.18 0.70 - 1.20 mg/dL [facility] Est Glomerular Filtration Rate 47(L) >=60 [facility] Comment: The reported eGFR should be multiplied by 1.2 for patients. The MDRD is not an appropriate measure of renal function for patients with body mass extremes or in patients with acute kidney failure. http://Parachute.Fazland/DHnkdep http://ProPerforma/DHnkf Blood specimen (specimen) 10/06/2017 10:13 AM EST 10/06/2017 10:23 AM EST Narrative Resulting Agency Comment Spec In Lab Breanna Barreto MD CHEMISTRY ORDERA BLES [facility] [place] [address] documented in this encounter Visit Diagnoses Diagnosis Renal insufficiency Unspecified disorder of kidney and ureter documented in this encounter Care Teams Mission Assessment Specialist Relationship Specialty Start Date End Date Yaritza Pierre MD [address] [place] [address] PCP - General 03/27/12 11/27/18 documented as of this encounter
--- OUTSIDE RECORDS SUMMARY | 2024-09-14 13:08 | XMS_ITS | Encounter Summary ---
Author Organization [facility] [place] [address] Care Team Providers Care School Administrator Name Role Phone Gorge Man MD Primary Care Provider [phone] Reason for Referral * Surgical (Routine) - Closed Specialty Diagnoses / Procedures Referred By Wander hernandez Referred To Contact Diagnoses Raynaud's disease without gangrene Procedures Chemodenervation, medical Andre Marroquin MD [facility] [place] [address] Referral ID Status Reason Start Date Expiration Date V isits Requested Visits Authorized [id number] Closed Consult, Test & Treat 11/28/2018 11/28/2019 1 1 Reason for Visit * Reason Comments Follow-up bilateral Botox hand injections * High Dollar Medication (Routine) - Closed Specialty Diagnoses / Procedures Referred By Wander hernandez Referred To Contact Plastic Surgery Diagnoses Raynaud's disease without gangrene Other specified mononeuropathies of bilateral upper limbs Procedures Auth Request for Medication TC ONABOTULINUMTOXINA, 1 UNIT, INJECTION DESTROY NERVE,EXTREM/TRUNK MUSCLES PRFM Andre Marroquin MD [facility] [address] Andre Marroquin MD [facility] [place] [address] Referral ID Status Reason Start Date Expiration Date V isits Requested Visits Authorized [id number] Closed Consult, Test & Treat 10/27/2017 09/18/2021 9 9 Encounter Details Date Type Department Care Team (Late st Contact Info) Description 11/28/2018 1:30 PM EST Office Visit Plastic Surgery at [facility] [address] [place] [address] Andre Marroquin MD [facility] [place] [address] Raynaud's disease without gangrene Social History Tobacco [...] Progress Notes * Andre Marroquin MD - 11/28/2018 1:30 PM EST Plastic Surgery Follow Up Note Reason for visit: F/U status post procedure Date of surgery: 10/07/16 Procedure(s): Ulnar artery transfer into cephalic vein Complications: None reported HPI: Amber Wells returns today in f/u for additional botox injections into her hands. 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 She notes the most problem with motion of her left small finger. She has some new sores at the fingertips on the right side. Examination: Patient is alert, conversant, comfortable, ambulating Incision: CDI, healing well. No signs of infection Able to flex and extend at elbow, wrist, fingers with expected stiffness Hands: stable tight fibrotic skin, healed ulcers at the tips of the thumb, index, and small fingers, fingertip with delayed 2-3 sec CR. Impression: Amber Wells is a 58 y.o. female who was seen today for follow- up after the above procedures, ongoing distal digital ischemia despite good PVR and recent bypasses of the ulnar systemc/w ongoing distal dz vs vasospasm. Please see the operative note for details. Today we proceeded with additional Botox injections to both hands, 50U each. Plan: Botox injections today, see procedure note Follow up 6 months for additional injections I, Judie Marie, have performed the documentation for this encounter in the presence of and acting as a scribe for Andre Marroquin MD. I performed the services which were documented by the scribe, and I agree with the accuracy of the documentation in this encounter. Andre Marroquin MD documented in this encounter Procedure Notes * Andre Marroquin MD - 11/28/2018 1:30 PM ESTAssociated Order(s): CHEMODENERVATION, MEDICAL Pre-Procedure Diagnose(s): Raynaud's disease without gangrene Amber Wells returns for further Botox injections: ?? Patient arrived with EMMLA cream already applied Alcohol and lidocaine gel skin prep 100 u of botox injected as follows: ?? 5u in region of digital artery at radial and ulnar base of each digit, 2 per digit, so 10U per digit or 50U per hand. Both hands treated for a total of 100 Units. ?? documented in this encounter Plan of Treatment Upcoming Encounters Date Type Department Care Team (Late st Contact Info) Description 10/07/2024 11:30 AM EST Office Visit Dermatology at [facility] [address] [place] [address] Jo Ordaz MD [facility] [place] [address] 12/13/2024 11:30 AM EST Appointment [place] [address] 12/13/2024 1:00 PM EST Office Visit Rheumatology at [facility] [place] [address] Kiet Pardo MD [facility] [place] [address] documented as of this encounter Procedures Procedure Name Priority Date/Time Associated Diagnosis Comments CHEMODENERVATION, MEDICAL Routine 11/28/2018 1:30 PM EST Raynaud's disease without gangrene documented in this encounter Results * Chemodenervation, medical (11/28/2018 1:30 PM EST) Narrative Andre Marroquin MD - 11/28/2018 1:30 PM EST Andre Marroquin MD ? 12/03/2018 ??5:09 PM Amber Wells returns for further Botox injections: ?? Patient arrived with EMMLA cream already applied Alcohol and lidocaine gel skin prep 100 u of botox injected as follows: ?? 5u in region of digital artery at radial and ulnar base of each digit, 2 per digit, so 10U per digit or 50U per hand. ??Both hands treated for a total of 100 Units. ?? Andre Marroquin MD PROCEDURE/MINOR SEA GICAL ORDERABLES documented in this encounter Visit Diagnoses Diagnosis Raynaud's disease without gangrene documented in this encounter Administered Medications Inactive Administered Medications - up to 3 most recent administrations Medication Order MAR Action Action Date Dose Rate Site botulinum toxin type A (BOTOX) injection 100 Units 100 Units, Intramuscular, ONCE, 1 dose, On Mon11/28/18 at 1400, Routine Given 11/28/2018 1:38 PM EST 100 Units 20-Other (document in comment section) documented in this encounter Care Teams School Administrator Relationship Specialty Start Date End Date Gorge Man MD PCP - General [facility] Medicine 11/28/18 02/18/21 documented as of this encounter
--- OUTSIDE RECORDS SUMMARY | 2024-09-14 13:08 | XMS_ITS | Encounter Summary ---
Author Organization [facility] [place] [address] Care Team Providers Care Senior Training And Development Rep Name Role Phone Yaritza Pierre MD Primary Care Provider [phone] Encounter Details Date Type Department Care Team (Late st Contact Info) Description 11/26/2018 Orders Only [place] [address] Randa Garcia RN NEPHROLOGY HYPERTENSION CKD (chronic kidney disease) stage 4, GFR [...] [facility] [address] [place] [address] Jo Ordaz MD [facility] [place] [address] 12/13/2024 11:30 AM EST Appointment [place] [phone] 12/13/2024 1:00 PM EST Office [place] [address] Kiet Pardo MD [facility] [address] documented as of this encounter Visit Diagnoses Diagnosis CKD (chronic kidney disease) stage 4, GFR 15-29 ml/min Chronic kidney disease, Stage IV (severe) documented in this encounter Care Teams Senior Training And Development Rep Relationship Specialty Start Date End Date Yaritza Pierre MD [address] [place] [address] PCP - General 03/27/12 11/27/18 documented as of this encounter
--- OUTSIDE RECORDS SUMMARY | 2024-09-14 13:08 | XMS_ITS | Encounter Summary ---
Author Organization [facility] Address [facility] [place] [address] Care Team Providers Care Recording Clerk Name Role Phone Yaritza Pierre MD Primary Care Provider [phone] Encounter Details Date Type Department Care Team (Late st Contact Info) Description 01/10/2018 1:00 PM EST - 01/10/2018 1:45 PM EST Surgery [place] [address] Andrew Berger MD [facility] [place] [address] EGD WITH BIOPSY (WRVU 2.39) Social History [...] - - Weight 62.6 kg (138 lb) 01/10/2018 1:02 PM EST Height 170.2 cm (5' 7) 01/10/2018 1:02 PM EST Body Mass Index 21.61 01/10/2018 1:02 PM EST documented in this encounter Discharge Instructions * Discharge Instructions* Kalli Corley, RN - 01/10/2018 2:35 PM EST UPPER GI ENDOSCOPY WHAT TO EXPECT AFTER THE PROCEDURE After the test you may feel a little more gassy or bloated than usual, this is normal. ACTIVITY Because of the sedation that you received Your judgement and reaction time are affected ?? Go home and rest quietly for the remainder of the day. You may resume your normal activities tomorrow. ?? Change from one position to the next slowly. You may lose your balance unexpectedly Be careful on stairs, as you may be unsteady on your feet. FOR THE NEXT 24 HRS ?? DO NOT DRIVE OR OPERATE ANY MACHINERY ?? DO NOT DRINK ALCOHOLIC BEVERAGES ?? DO NOT SIGN LEGAL DOCUMENTS ?? If you are a smoker: DO NOT SMOKE WHILE YOU ARE ALONE Diet ?? Start by eating small portions of foods that ordinarily will not upset your stomach. Be gentle with what you choose to start with. ?? Drink plenty of fluids ( unless otherwise [...] better as expected. Monday-Monday Same Day Endo [phone] 7a-8p Otherwise contact [phone] and ask to speak to the draw off worker manager environmental health and safety Follow-up care is a cardenas part of your treatment and safety. Be sure to make and go to all appointments, and call your doctor if you are having problems. Instructions have been reviewed and patient expresses understanding * Patient Instructions* Andrew Berger MD - 01/10/2018 2:43 PM EST Please see Recommendations in the [...] inches onto the skin every 6 hours. esomeprazole (NEXIUM) 40 mg Capsule, Delayed Release(E.C.)Indicatio ns:CKD (chronic kidney disease) stage 3, GFR 30-59 ml/min,Scleroderma Take 1 capsule by mouth 2 times daily. 180 capsule 3 01/10/2018 11/28/2018 fosinopril (MONOPRIL) 20 mg TabletIndications:Jaimie davila,CKD (chronic kidney disease) stage 3, GFR 30-59 ml/min Take 1 tablet by mouth daily. 90 tablet 3 10/27/2017 11/28/2018 pentoxifylline (TRENTAL) 400 mg Tablet Sustained Release Take 1 tablet by mouth 3 times daily (with meals). 90 tablet 5 10/09/2017 03/15/2018 sildenafil (REVATIO) 20 mg Tablet 2 tablets in am, 1 tablet at noon and 2 tablet in pm 450 tablet 3 06/13/2017 05/14/2018 acetaminophen-codeine (TYLENOL #3) 300-30 mg Tablet Take 2 tablets by mouth every 6 hours as needed for Pain. Reported on 03/29/2017 60 tablet 1 03/29/2017 03/08/2018 LIDOCAINE 2 % Solution APPLY TO PAINFUL AREAS IF NEEDED 0 12/12/2016 03/24/2021 amLODIPine (NORVASC) 10 mg Tablet Take 2 tablets by mouth daily. 180 tablet 3 01/19/2017 01/29/2018 lidocaine-prilocaine (EMLA) cream Apply topically as needed. 30 g 2 05/21/2013 01/09/2020 documented as of this encounter H&P Notes * Markel Norman MD - 01/10/2018 1:38 PM EST Gastroenterology and Hepatology Pre-Procedure History and Physical Exam Procedure: EGD: Indication: GERD, evaluate for Joseph's Patient Active Problem List Diagnosis Code ??? [...] M79.89 ??? Raynaud's disease without gangrene I73.00 EXAM: HEENT: Airway examined, oropharynx clear Mallampati Score: II (soft palate, uvula, fauces visible) LUNGS: Clear to auscultation HEART: Regular rate and rhythm, normal S1, S2 ABDOMEN: Normal bowel sounds, soft, non tender, non distended, A/P Proceed with the planned endoscopic procedure. ASA 3 - Patient with moderate systemic disease with functional limitations Sedation Plan: anesthesia Risks and benefits of the procedure explained to the patient. Consent signed. Electronically signed by: Markel Norman MD Department of Gastroenterology [facility] 01/10/2018 documented in this encounter Miscellaneous Notes * Op Note - Andrew Berger MD - 01/10/2018 2:43 PM EST [facility] Operative Note Patient Name: Amber Wells : [id number] MR#: [id number] Case Date: 01/10/2018 Surgeon: Surgeon(s) and Role: * Markel Norman MD * Andrew Berger MD - Primary Preoperative diagnosis: egd with lacy - may 2017; gerd and barretts ablation- Per Lacy Postoperative diagnosis: * No post-op diagnosis entered * Procedure(s) (LRB): EGD WITH BIOPSY (WRVU 2.49) (N/A) Anesthesia: MAC Full procedure note is documented under the Procedure section of eDH. documented in this encounter Plan of Treatment Upcoming Encounters Date Type Department Care Team (Late st Contact Info) Description 10/07/2024 11:30 AM EST Office Visit Dermatology at [address] [place] [address] Jo Ordaz MD [facility] [address] 12/13/2024 11:30 AM EST Appointment [place] [phone] 12/13/2024 1:00 PM EST Office [place] [phone] Kiet Pardo MD [facility] [place] [address] documented as of this encounter Procedures Procedure Name Priority Date/Time Associated Diagnosis Comments SURGICAL PATHOLOGY REPORT Routine 01/10/2018 2:19 PM EST SPECIMEN TO PATHOLOGY Routine 01/10/2018 2:19 PM EST SPECIMEN TO PATHOLOGY Routine 01/10/2018 2:19 PM EST SPECIMEN TO PATHOLOGY Routine 01/10/2018 2:19 PM EST EGD WITH BIOPSY (WRVU 2.39) 01/10/2018 1:59 PM EST egd with lacy - may 2017; gerd and barretts ablation- Per Lacy UPPER GI ENDOSCOPY Routine 01/10/2018 1: 29 PM EST documented in this encounter Results * Surgical Pathology Report (01/10/2018 2:19 PM EST) Final Diagnosis [id number] ? Location: 4T; [facility]; A The signing pathologist has (i) examined the relevant preparation(s) for the specimen(s) and (ii) rendered or confirmed the diagnosis(es). . ? Addendum ADDENDUM DISCUSSION A WATS 3D report ( dated 01/17/2018) on specimen D has been received. For the full text of the WATS 3D report(s), please refer to Non- Documentation Pathology in the electronic health record (eDH). Electronically signed by: ??Mono Hidalgo MD, I Verified: ??02/01/2018 ?Pathologist Performed at: ??-[facility] Dept. of [place]ology, [place], [place] ?Surgical Pathology DIAGNOSIS A - GE junction, ??biopsy: - Oxyntocardiac mucosa negative for intestinal metaplasia. B - BE junction at 39 cm, ?? biopsy: - Joseph 's esophagus, negative for dysplasia. C - Esophagus at 37 cm, ?? biopsy: - Joseph 's esophagus, negative for dysplasia. D - WATS SPECIMEN - Esophagus, distal and GE junction at 37-39 cm, biopsy: - ??This specimen has been sent for WATS proprietary test at the request of the ordering provider. Results will be reported in an addendum. Electronically signed by: ??Brandon Urrutia MD Verified: ??01/12/2018 ?Pathologist Performed at: ??-[facility] Dept. of Pathology, [place], [place] CLINICAL INFORMATION Specimen Submitted: A - GE jct nodule B - BE jct bx at 39cm C - Esophageal bx at 37cm D - WATS SPECIMEN - Esophagus, distal and GE junction at 37-39 cm, biopsy Clinical History: History Joseph 's Clinical Diagnosis: Same SPECIMEN PROCESSING A - Labeled/Fixative: GE junction nodule, formalin. Quantity/Size: Single, 0.3 cm. Tissue Description: Soft claire tissue. Sections/Processi ng: (T1) B - Labeled/Fixative: GE junction biopsy at 39 cm, formalin. Quantity/Size: Three, 0.1-0.2 cm. Tissue Description: Soft pink to red tissue. Sections/Processi ng: (T1) . SPECIMEN PROCESSING C - Labeled/Fixative: Esophageal BX at 37 cm, formalin. Quantity/Size: Three, averaging 0.2 cm. Tissue Description: Soft pink-white tissue. Sections/Processi ng: (T1) ??eddie 02/01/2018 10:25 AM EDT [facility] GI Biopsy 01/10/2018 2:19 PM EST 01/10/2018 2:19 PM EST GI Biopsy 01/10/2018 2:19 PM EST 01/10/2018 2:19 PM EST GI Biopsy 01/10/2018 2:19 PM EST 01/10/2018 2:19 PM EST Consult Case 01/10/2018 2:19 PM EST 01/10/2018 2:19 PM EST Andrew Berger MD PATHOLOGY/CYTOLOGY O RDTONY Performing Organization Address [facility]/[place] [address] * Specimen to Pathology (01/10/2018 2:19 PM EST) AP Specimen 01/10/2018 2:19 PM EST 01/10/2018 3:24 PM EST Narrative [facility] - 01/10/2018 3:24 PM EST Specimen requisition ordered. ??Separate Pathology report to follow Resulting Agency Comment Spec In Lab Andrew Berger MD PATHOLOGY/CYTOLOGY O YVETTE Performing Organization Address [facility] [place] [address] * Specimen to Pathology (01/10/2018 2:19 PM EST) AP Specimen 01/10/2018 2:19 PM EST 01/10/2018 3:24 PM EST Narrative [facility] - 01/10/2018 3:24 PM EST Specimen requisition ordered. ??Separate Pathology report to follow Resulting Agency Comment Spec In Lab Andrew Berger MD PATHOLOGY/CYTOLOGY O YVETTE Performing Organization Address [facility] [place] [address] * Specimen to Pathology (01/10/2018 2:19 PM EST) AP Specimen 01/10/2018 2:19 PM EST 01/10/2018 3:24 PM EST Narrative [facility] - 01/10/2018 3:24 PM EST Specimen requisition ordered. ??Separate Pathology report to follow Resulting Agency Comment Spec In Lab Andrew Berger MD PATHOLOGY/CYTOLOGY O YVETTE Performing Organization Address [facility]/[place] [address] * UPPER GI ENDOSCOPY (01/10/2018 1:29 PM EST) UPPER GI ENDOSCOPY [facility] End[facility] ___ Procedure Date: 01/10/2018 1:29 PM ? Patient Name: Amber Wells ? N: [id number] ? Date of : 1960 ? Age: 57 ? Order #: [id number] ? Instrument Name: [id number] ? ___ Procedure: ? Upper GI endoscopy Indications: ? Follow-up of Joseph's esophagus, ? history of scleroderma Providers: ? Andrew Berger MD, Markel Norman, ? , Debbie Garcia, [place], Tamika ? Janneth, Dock Clerk Referring MD: ?Yaritza Pierre MD Medicines: ? Monitored Anesthesia Care Complications: ? No immediate complications. ___ Procedure: ? Pre-Anesthesia Assessment: ? - Prior to the procedure, a History ? and Physical was performed, and ? patient medications and allergies ? were reviewed. The patient is ? competent. The risks and benefits of ? the procedure and the sedation ? options and risks were discussed with ? the patient. All questions were ? answered and informed consent was ? obtained. Patient identification and ? proposed procedure were verified by ? the physician and the nurse in the ? pre-procedure area in the procedure ? room. Mental Status Examination: ? alert and oriented. Airway ? Examination: normal oropharyngeal ? airway and neck mobility. Respiratory ? Examination: clear to auscultation. ? CV Examination: normal. ASA Grade ? Assessment: III - A patient with ? severe systemic disease. After ? reviewing the risks and benefits, the ? patient was deemed in satisfactory ? condition to undergo the procedure. ? The anesthesia plan was to use ? monitored anesthesia care (MAC). ? Immediately prior to administration ? of medications, the patient was ? re-assessed for adequacy to receive ? sedatives. The heart rate, ? respiratory rate, oxygen saturations, ? blood pressure, adequacy of pulmonary ? ventilation, and response to care ? were monitored throughout the ? procedure. The physical status of the ? patient was re-assessed after the ? procedure. ? The procedure, indications, benefits, ? risks [...] ? tolerated the procedure well. The ? upper GI endoscopy was accomplished ? without difficulty. The patient ? tolerated the procedure well. ? Findings: ? The esophagus and gastroesophageal junction were ? examined with white light and narrow band imaging ? (NBI) from a forward view and retroflexed position. ? There were esophageal mucosal changes consistent with ? short-segment Joseph's esophagus. These changes ? involved the mucosa at the upper extent of the ? gastric folds (39 cm from the incisors) extending to ? the Z-line (37 cm from the incisors). The maximum ? longitudinal extent of these esophageal mucosal ? changes was 2 cm in length. Mucosa was biopsied with ? a cold forceps for histology. A total of 2 specimen ? bottles were sent to pathology. Wide Area ? Transepithelial Sampling (WATS-3D [place] Biopsy) was ? performed for histology and samples sent for ? Computer-Assisted 3-Dimensional analysis. ? A 2 cm hiatal hernia was present. ? The examined duodenum was normal. ? Moderate Sedation: ? Not applicable - See Anesthesia documentation Impression: ?- Esophageal mucosal changes ? 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 Biopsied. ? WATS-3D brush biopsy specimens ? obtained. ? - 2 cm hiatal hernia. ? - Normal examined duodenum. Recommendation: ?- Discharge to home ? - Daily PPI (30 min before breakfast) ? - Avoid NSAIDs ? - F/u path and brushings ? Attending Participation: ? I was present and participated during the entire ? procedure, including non-cardenas portions. ? Andrew Berger MD 01/10/2018 2:34:23 PM This report has been signed electronically. Number of Addenda: 0 Note Initiated On: 01/10/2018 1:29 PM PROVATION 01/10/2018 1:29 PM EST Yaritza Pierre MD GENERAL SURGICAL ORD ERABLES PROVATION documented in this encounter Visit Diagnoses Not on filedocumented in this encounter Administered Medications Inactive Administered Medications - up to 3 most recent administrations Medication Order MAR Action Action Date Dose Rate Site lactated Ringers infusion 100 mL/hr, Intravenous, CONTINUOUS, Starting on Mon01/10/18 at 1330, Until Mon01/10/18 at 1502, Endoscopy (Day of Procedure) New Bag 01/10/2018 1:05 PM EST 100 mL/hr 100 mL/hr midazolam (PF) (VERSED) 1 mg/mL multi-dose injection ONCE PRN, Starting on Mon01/10/18 at 1400, Until Mon01/10/18 at 1728, Intra-Operative (Intra-Procedure), Routine Given 01/10/2018 2:00 PM EST 2 mg documented in this encounter Active and Recently Administered Medications Times are shown in EST. Continuous Medication Order 01/08/2018 01/09/2018 01/10/2018 lactated Ringers infusion (CANCELED) 100 mL/hr, Intravenous, CONTINUOUS, Starting on Mon01/10/18 at 1330, Until Mon01/10/18 at 1502, Endoscopy (Day of Procedure) 1305 (New Bag - Prov ider: Pamela Allison RN)1357 (Canceled Entry - Provider: Randa Raphael CRNA)1414 (Anesthesia Volume Adjustment - Provider: Randa Raphael CRNA) PRN Medication Order 01/08/2018 01/09/2018 01/10/2018 midazolam (PF) (VERSED) 1 mg/mL multi-dose injection (CANCELED) ONCE PRN, Starting on Mon01/10/18 at 1400, Until Mon01/10/18 at 1728, Intra-Operative (Intra-Procedure), Routine 1400 (Given - Provid er: Debbie Garcia RN - Comment: Per anesthesia) documented in this encounter Care Teams Recording Clerk Relationship Specialty Start Date End Date Yaritza Pierre MD [address] [place] [address] PCP - General 03/27/12 11/27/18 documented as of this encounter
--- OUTSIDE RECORDS SUMMARY | 2024-09-14 13:08 | XMS_ITS | Encounter Summary ---
Author Organization [facility] [place] [address] Care Team Providers Care Environmental Technician Name Role Phone Yaritza Pierre MD Primary Care Provider [phone] Encounter Details Date Type Department Care Team (Late st Contact Info) Description 03/12/2018 Orders [place] [address] Yu Mcdonough [facility] [place] [address] Social History Tobacco Use Types Packs/Day Years [...] Dermatology at [facility] [address] [place] [address] Jo Ordaz MD [facility] [place] [address] 12/13/2024 11:30 AM EST Appointment Pulmonology at [place] [phone] 12/13/2024 1:00 PM EST Office [place] [phone] Kiet Pardo MD [facility] [place] [address] documented as of this encounter Visit Diagnoses Not on filedocumented in this encounter Care Teams Environmental Technician Relationship Specialty Start Date End Date Yaritza Pierre MD [address] [place] [address] PCP - General 03/27/12 11/27/18 documented as of this encounter
--- OUTSIDE RECORDS SUMMARY | 2024-09-14 13:08 | XMS_ITS | Encounter Summary ---
Author Organization [facility] [place] [address] Care Team Providers Care [employer] Business Manager Name Role Phone Yaritza Pierre MD Primary Care Provider [phone] Encounter Details Date Type Department Care Team (Late st Contact Info) Description 04/18/2018 3:00 PM EDT Office [place] [address] Yu Mcdonough, [facility] [place] [address] Scleroderma Social History Tobacco Use Types Packs/Day [...] Sign Reading Time Taken Comments Blood Pressure 108/64 04/18/2018 2:43 PM EDT Pulse 68 04/18/2018 2:43 PM EDT Temperature - - Respiratory Rate 18 04/18/2018 2:43 PM EDT Oxygen Saturation 99% 04/18/2018 2:43 PM EDT Inhaled Oxygen Concentration - - Weight 63.5 kg (140 lb) 04/18/2018 2:43 PM EDT Height 170.2 cm (5' 7) 04/18/2018 2:43 PM EDT Body Mass Index 21.93 04/18/2018 2:43 PM EDT documented in this encounter Progress Notes * Yu Mcdonough, - 04/18/2018 3:00 PM EDT PROBLEM LIST: 1. Diffuse systemic sclerosis. (A) Initially diagnosed [place] [address] Placido Lora at [facility] in [place]. Then followed by Dr. Peyton Hinton in [facility] in [place] in 04/2010. . Echo and PFTs 12/09/11 both normal. (B) Treatment in the past has included intermittent penicillamine and methotrexate, however, she has been off immunosuppressive therapy since approximately 2005. (C) Hospitalization in 03/2010 in [place] with scleroderma hypertensive renal crisis, on dialysis for two months ending in mid 06/2010. (D) One visit with Dr. Ten Gonzalez in [place], [place] in late 2009. 2. Chronic kidney disease, stage III, with associated anemia. Currently followed by Dr. Sumit Sawyer in nephrology. 3. Raynaud's symptoms. 4. GERD. HPI: I last saw Amber in September. Her raynaud's continues to be a significant issue. She has an ulcers on the tip of her left humb. At last visit I tried switching sildenafil to tadalafil. This did not get approved by insurance. She is taking sildenafil 40/20/40 mg three times per day. Tolerating this dose without any difficulty. She has also been taking norvasc 10 mg daily She received botox injection in the fingers from Dr. Palomares. There is no significant improvement. She does not want any additional medication at this time. She is under a lot of stress and thinks this is contributing. GERD is controlled with nexium. Appetite is OK. Weight is stable. Renal function is stable. No SOB. Social History: Amber is from her boyfriend of 10 years. Trying to see her house and[place] [facility] ??Physical examination: General: Awake alert and oriented ??3 in no acute distress Psych: Mood and affect normal and appropriate Mouth: Dry mucous membranes no oral ulcers Eyes: No scleral icterus Skin: Tight skin around her mouth and on her hands up to her elbows. there is pitting in multiple fingertips. There is a healing ulcer in the left thumb. She has telangiectasias on her face. She skinis very claire Joints: Joint contractures in all of her fingers. There is no synovitis Neuro: No focal deficits Assessment: Systemic sclerosis with GERD, Raynaud's, sclerodactyly and a hx of scleroderma renal crisis and now stage 3 CKD followed in nephrology. Her raynaud's phenomenon has been the most difficult part of her scleroderma to treat recently. She is on maximal sildenafil and Norvasc at 10 mg per day. She understands that stress can play a role in autoimmune disease. She is trying to exercise regularly, do yoga, sing. All of these things are very enjoyable to her. Plan: She just had labs done in February. They are stable. Continue nexium Continue sildenafil and norvasc for Raynaud's. She has no cardiopulmonary symptoms so I do not see a need to check PFTs or echo at this point. They were done in 2015. I have scheduled an appt with her in July. If she has moved by then, she will cacnel the appt.She plans to return [place] [facility] [place] documented in this encounter Plan of Treatment Upcoming Encounters Date Type Department Care Team (Late st Contact Info) Description 10/07/2024 11:30 AM EST Office Visit Dermatology at [place] [address] [place] [address] Jo Ordaz MD [facility] [place] [address] 12/13/2024 11:30 AM EST App[place] [address] 12/13/2024 1:00 PM EST Office [place] [address] Kiet Pardo MD [facility] [place] [place] [address] documented as of this encounter Visit Diagnoses Diagnosis Scleroderma Systemic sclerosis documented in this encounter Care Teams [employer] Business Manager Relationship Specialty Start Date End Date Yaritza Pierre MD [address] [place] [address] PCP - General 03/27/12 11/27/18 documented as of this encounter
--- OUTSIDE RECORDS SUMMARY | 2024-09-14 13:08 | XMS_ITS | Encounter Summary ---
Author Organization [facility] Address [facility] [place] [address] Care Team Providers Care Cognos Analyst Name Role Phone Yaritza Pierre MD Primary Care Provider [phone] Reason for Referral * Surgical (Routine) - Closed Specialty Diagnoses / Procedures Referred By Wander hernandez Referred To Contact Diagnoses Raynaud's disease without gangrene Procedures Chemodenervation, medical Andre Mccoy MD [facility] [place] [address] Referral ID Status Reason Start Date Expiration Date V isits Requested Visits Authorized [id number] Closed Consult, Test & Treat 11/02/2017 11/02/2018 1 1 Reason for Visit * Reason Comments Follow-up Botox right hand * High Dollar Medication (Routine) - Closed Specialty Diagnoses / Procedures Referred By Wander hernandez Referred To Contact Plastic Surgery Diagnoses Raynaud's disease without gangrene Other specified mononeuropathies of bilateral upper limbs Procedures Auth Request for Medication TC ONABOTULINUMTOXINA, 1 UNIT, INJECTION DESTROY NERVE,EXTREM/TRUNK MUSCLES PRFM Andre Mccoy MD [facility] [place] [address] Andre Mccoy MD [facility] [address] Referral ID Status Reason Start Date Expiration Date V isits Requested Visits Authorized [id number] Closed Consult, Test & Treat 10/27/2017 09/18/2021 9 9 Encounter Details Date Type Department Care Team (Late st Contact Info) Description 11/02/2017 10:30 AM EST Office Visit [place] [address] Andre Mccoy MD [facility] [place] [address] Raynaud's disease without gangrene Social History Tobacco [...] of this encounter Progress Notes * Andre Mccoy MD - 11/02/2017 10:30 AM EST Plastic Surgery Follow Up Note Reason for visit: F/U status post procedure Date of surgery: 10/07/16 Procedure(s): Ulnar artery transfer into cephalic vein. Complications: None reported HPI: Amber Wells returns today in f/u. She is here for botox injections into her left hand for her Raynaud's. She reports her left hand symptoms are worse than the right. Examination: Patient is alert, conversant, comfortable, ambulating Incision: CDI, healing well. No signs of infection Able to flex and extend at elbow, wrist, fingers with expected stiffness Hands: small ulcers at the tips of the thumb, index, and small fingers, fingertip with delayed 2-3 sec CR. Digital PVR are relatively good. Impression: Amber Wells is a 57 y.o. female who was seen today for follow- up after the above procedures, ongoing distal digital ischemia despite good PVR and recent bypasses of the ulnar systemc/w ongoing distal dz vs vasospasm. Please see the operative note for details. She is healing well to date. Today we proceeded with botox injections into her hands for her Raynaud's. She tolerated the injections well without complications. I explained that it may take several days for the botox to take full effect. Plan: Botox injections into both hands F/u for repeat injections I, Judie Marie, am acting as scribe for Dr. Mccoy. All work documented was performed by . ???I performed the above scribed service and agree with the accuracy of the note?? ANDRE MCCOY MD. documented in this encounter Procedure Notes * Andre Mccoy MD - 11/02/2017 10:30 AM ESTAssociated Order(s): CHEMODENERVATION, MEDICAL Pre-Procedure Diagnose(s): Raynaud's disease without gangrene Amber Wells returns for further Botox injections: Alcohol skin prep 100 u of botox injected as follows: 5u in region of digital artery at [...] [facility] [address] [place] [address] Jo Ordaz MD [facility] [place] [address] 12/13/2024 11:30 AM EST Appointment [place] [address] 12/13/2024 1:00 PM EST Office [place] [address] Kiet Pardo MD [facility] RHEUMATOLOGY [facility] [place] [address] documented as of this encounter Procedures Procedure Name Priority Date/Time Associated Diagnosis Comments CHEMODENERVATION, MEDICAL Routine 11/06/2017 3:21 PM EST Raynaud's disease without gangrene documented in this encounter Results * Chemodenervation, medical (11/06/2017 3:21 PM EST) Narrative Andre Mccoy MD - 11/06/2017 3:21 PM EST Andre Mccoy MD ? 11/06/2017 ??3:21 PM Amber Goldsteintien returns for further Botox injections: Alcohol skin prep 100 u of botox injected as follows: 5u in region of digital artery at radial and ulnar base of each digit, 2 per digit, so 10U per digit or 50U per hand. ??Both hands treated for a total of 100 Units. Andre Mccoy MD PROCEDURE/MINOR SEA GICAL ORDERABLES documented in this encounter Visit Diagnoses Diagnosis Raynaud's disease without gangrene documented in this encounter Care Teams Cognos Analyst Relationship Specialty Start Date End Date Yaritza Pierre MD [address] [place] [address] PCP - General 03/27/12 11/27/18 documented as of this encounter
--- OUTSIDE RECORDS SUMMARY | 2024-09-14 13:08 | XMS_ITS | Encounter Summary ---
Author Organization [facility] [place] [address] Care Team Providers Care Tamping Machine Operator Name Role Phone Gorge Man MD Primary Care Provider [phone] Encounter Details Date Type Department Care Team (Late st Contact Info) Description 11/28/2018 12:00 PM EST Office [place] [address] Yu Mcdonough, [facility] [place] [address] CKD (chronic kidney disease) stage 3, GFR [...] Sign Reading Time Taken Comments Blood Pressure 136/68 11/28/2018 11:59 AM EST Pulse 88 11/28/2018 11:59 AM EST Temperature 37.2 ??C (98.9 ??F) 11/28/2018 11:[address] Respiratory Rate - - Oxygen Saturation - - Inhaled Oxygen Concentration - - Weight 66.5 kg (146 lb 9.6 oz) 11/28/2018 11:59 AM EST Height 170.2 cm (5' 7) 11/28/2018 11:59 AM EST Body Mass Index 22.96 11/28/2018 11:59 AM EST documented in this encounter Progress Notes * Yu Mcdonough, - 11/28/2018 12:00 PM EST PROBLEM LIST: 1. Diffuse systemic sclerosis. (A) Initially diagnosed in [address] Placido Lora at [facility] in [place]. Then followed by Dr. Peyton Hinton in [facility] in [place] in 04/2010. . Echo and PFTs 12/09/11 both normal. (B) Treatment in the past has included intermittent penicillamine and methotrexate, however, she has been off immunosuppressive therapy since approximately 2005. (C) Hospitalization in 03/2010 in [place] with scleroderma hypertensive renal crisis, on dialysis for two months ending in mid 06/2010. (D) One visit with Dr. Ten Gonzalez in [place], [place] in late 2009. 2. Chronic kidney disease, stage III, with associated anemia. Currently followed by Dr. Sumit Sawyer in nephrology. 3. Raynaud's is significant- had b/l ulnar artery transfer into cephalic vein. botox injections with no significant improvement. 4. GERD. HPI: I last saw Amber in March. She moved back to [facility] and then moved back to the . Her raynaud's continues to be a significant issue. She is taking sildenafil but her last prescription was only for 3 pills per day and prior to [facility] she was taking She has also been taking norvasc 10 mg daily. She is seeing Dr. Palomares today. GERD is controlled with nexium. Appetite is OK. Weight is stable. Renal function is stable. No SOB.BP is normal. Dr. Sawyer sent orders for her to have labs done closer to home. Social History: she got to her long-time [...] the most difficult part of her scleroderma. We will get her back on maximal sildenafil, continue Norvasc at 10 mg per day. Labs will be done soon. Continue BID PPI for acid suppression. She has an upper endoscopy coming up to evaluate her durbin's. She has no new cardiac or pulmonary symptoms - will defer TTE and PFTs. RTC in 6 months documented in this encounter Plan of Treatment Upcoming Encounters Date Type Department Care Team (Late st Contact Info) Description 10/07/2024 11:30 AM EST Office Visit Dermatology at [place] [address] [place] [address] Jo Ordaz MD [facility] [place] [address] 12/13/2024 11:30 AM EST Appointment [place] [phone] 12/13/2024 1:00 PM EST Office [place] [address] Kiet Pardo MD [facility] [place] [address] documented as of this encounter Visit Diagnoses Diagnosis CKD (chronic kidney disease) stage 3, GFR 30-59 ml/min Chronic kidney disease, Stage III (moderate) Scleroderma Systemic sclerosis documented in this encounter Care Teams Tamping Machine Operator Relationship Specialty Start Date End Date Gorge Man MD PCP - [facility] Medicine 11/28/18 02/18/21 documented as of this encounter
--- OUTSIDE RECORDS SUMMARY | 2024-09-14 13:08 | XMS_ITS | Encounter Summary ---
Author Organization [facility] [place] [address] Care Team Providers Care Presidential Support Specialist Name Role Phone Yaritza Pierre MD Primary Care Provider [phone] Encounter Details Date Type Department Care Team (Late st Contact Info) Description 10/09/2017 Orders [place] [address] Yu Mcdonough [facility] [address] Social History Tobacco Use Types Packs/Day Years [...] EST Office Visit Dermatology at [facility] [address] [place] [address] Jo Ordaz MD [facility] [place] [address] 12/13/2024 11:30 AM EST Appointment Pulmonology at [place] [phone] 12/13/2024 1:00 PM EST Office [place] [phone] Kiet Pardo MD [facility] [place] [address] documented as of this encounter Visit Diagnoses Not on filedocumented in this encounter Care Teams Presidential Support Specialist Relationship Specialty Start Date End Date Yaritza Pierre MD [address] [place] [address] PCP - General 03/27/12 11/27/18 documented as of this encounter
--- OUTSIDE RECORDS SUMMARY | 2024-09-14 13:08 | XMS_ITS | Encounter Summary ---
[place] [address] Care Team Providers Care Firewood Cutter Name Role Phone Yaritza Pierre MD Primary Care Provider [phone] Reason for Visit * Reason Onset Date Comments Prior Authorization 11/22/2018 sildenafil Encounter Details Date Type Department Care Team (Late st Contact Info) Description 11/22/2018 [place] [phone] Valentin Gaines RN Prior Authorization (sildenafil) Social History Tobacco Use Types Packs/Day Years [...] encounter Miscellaneous Notes * Telephone Encounter - Valentin Gaines RN - 11/22/2018 10:58 AM EST Prior Authorization: ?? Medication name/dose/directions: ?? Rationale for request: Scleroderma - M34.9, Raynaud's - I73.00 ?? Health plan: [facility] [facility] ?? Date PA initiated: 11/22/2018 Method of PA initiation: Fax ?? Outcome: PENDING ?? Quantity approved: ?? Authorization number: ?? Start date: End date: Comments: Fax confirmation time stamped for 11/22/2018 @ 1101 documented in this encounter Plan of Treatment Upcoming Encounters Date Type Department Care Team (Late st Contact Info) Description 10/07/2024 11:30 AM EST Office Visit Dermatology at [place] [address] [place] [address] Jo Ordaz MD [facility] [place] [address] 12/13/2024 11:30 AM EST [place] [address] 12/13/2024 1:00 PM EST [place] [address] Kiet Pardo MD [facility] [place] [address] documented as of this encounter Visit Diagnoses Not on filedocumented in this encounter Care Teams Firewood Cutter Relationship Specialty Start Date End Date Yaritza Pierre MD [address] [place] [address] PCP - General 03/27/12 11/27/18 documented as of this encounter
--- OUTSIDE RECORDS SUMMARY | 2024-09-14 13:08 | XMS_ITS | Encounter Summary ---
Author Organization [facility] [place] [address] Care Team Providers Care Airfreight Operations Agent Name Role Phone Yaritza Pierre MD Primary Care Provider [phone] Reason for Visit * Reason Onset Date Comments Medication Refill 03/08/2018 Encounter Details Date Type Department Care Team (Late st Contact Info) Description 03/08/2018 Refill [place] [address] Antoine Jung, RN Social History Tobacco Use [...] Visit Dermatology at [facility] [address] [place] [address] Jo Ordaz MD [facility] [place] [address] 12/13/2024 11:30 AM EST Appointment [place] [address] 12/13/2024 1:00 PM EST Office Visit [place] [address] iKet Pardo MD [facility] [place] [address] documented as of this encounter Visit Diagnoses Not on filedocumented in this encounter Care Teams Airfreight Operations Agent Relationship Specialty Start Date End Date Yaritza Pierre MD [address] [place] [address] PCP - General 03/27/12 11/27/18 documented as of this encounter
--- OUTSIDE RECORDS SUMMARY | 2024-09-14 13:08 | XMS_ITS | Encounter Summary ---
[place] [address] Care Team Providers Care Ediphone Operator Name Role Phone Yaritza Pierre MD Primary Care Provider [phone] Encounter Details Date Type Department Care Team (Late st Contact Info) Description 11/15/2018 Telephone [place] [address] Kristin Capelaln Social History Tobacco Use Types Packs/Day Years [...] encounter Miscellaneous Notes * Telephone Encounter - Kristin Capellan - 11/15/2018 10:25 AM EST Patient has relocated back the [place]. She was due to see Dr. Ordoñez this past fall with [facility] prior. Patient has requested these appointments be scheduled January 25 to coincide with other appointments. Patient has been scheduled for MRI and evaluation. documented in this encounter Plan of Treatment Upcoming Encounters Date Type Department Care Team (Late st Contact Info) Description 10/07/2024 11:30 AM EST Office Visit Dermatology at [address] [place] [address] Jo Ordaz MD [facility] [place] [address] 12/13/2024 11:30 AM EST Appointment [place] [phone] 12/13/2024 1:00 PM EST Office Visit [place] [address] Kiet Pardo MD [facility] [place] [address] documented as of this encounter Visit Diagnoses Not on filedocumented in this encounter Care Teams Ediphone Operator Relationship Specialty Start Date End Date Yaritza Pierre MD [address] [place] [address] PCP - General 03/27/12 11/27/18 documented as of this encounter
--- OUTSIDE RECORDS SUMMARY | 2024-09-14 13:08 | XMS_ITS | Encounter Summary ---
Author Organization [facility] Address [facility] [place] [address] Care Team Providers Care Dog Beautician Name Role Phone Yaritza Pierre MD Primary Care Provider [phone] Encounter Details Date Type Department Care Team (Late st Contact Info) Description 10/06/2017 Orders [place] [address] Breanna Ordoñez MD [facility] [place] [address] Renal insufficiency Social History Tobacco Use Types [...] Dermatology at [facility] [address] [place] [address] Jo Ordaz MD [facility] [place] [address] 12/13/2024 11:30 AM EST Appointment Pulmonology at [place] [phone] 12/13/2024 1:00 PM EST [place] [address] Kiet Pardo MD [facility] [place] [address] documented as of this encounter Results * (ABNORMAL) Creatinine (10/06/2017 10:13 AM EST) Creatinine 1.18 0.70 - 1.20 mg/dL [facility] Est Glomerular Filtration Rate 47(L) >=60 [facility] Comment: The reported eGFR should be multiplied by 1.2 for patients. The MDRD is not an appropriate measure of renal function for patients with body mass extremes or in patients with acute kidney failure. [email or web address] Blood specimen (specimen) 10/06/2017 10:13 AM EST 10/06/2017 10:23 AM EST Narrative Resulting Agency Comment Spec In Lab Breanna Barreto MD CHEMISTRY ORDERA BLES [facility] [place] [address] documented in this encounter Visit Diagnoses Diagnosis Renal insufficiency Unspecified disorder of kidney and ureter documented in this encounter Care Teams Dog Beautician Relationship Specialty Start Date End Date Yaritza Pierre MD [address] [place] [address] PCP - General 03/27/12 11/27/18 documented as of this encounter
--- OUTSIDE RECORDS SUMMARY | 2024-09-14 13:08 | XMS_ITS | Encounter Summary ---
Author Organization [facility] [place] [address] Care Team Providers Care Police Radio Dispatcher Name Role Phone Yaritza Pierre MD Primary Care Provider [phone] Encounter Details Date Type Department Care Team (Late st Contact Info) Description 10/06/2017 Orders [place] [address] Yu Mcdonough [facility] [place] [address] Social History Tobacco Use Types Packs/Day Years [...] AM EST Office Visit Dermatology at [facility] [address] [place] [address] Jo Ordaz MD [facility] [place] [address] 12/13/2024 11:30 AM EST Appointment Pulmonology at [place] [phone] 12/13/2024 1:00 PM EST Office [place] [address] Kiet Pardo MD [facility] [place] [address] documented as of this encounter Visit Diagnoses Not on filedocumented in this encounter Care Teams Police Radio Dispatcher Relationship Specialty Start Date End Date Yaritza Pierre MD [address] [place] [address] PCP - General 03/27/12 11/27/18 documented as of this encounter
--- OUTSIDE RECORDS SUMMARY | 2024-09-14 13:08 | XMS_ITS | Encounter Summary ---
Author Organization [facility] Address [facility] [place] [address] Care Team Providers Care Maintenance Shop Clerk Name Role Phone Yaritza Pierre MD Primary Care Provider [phone] Reason for Referral * Surgical (Routine) - Closed Specialty Diagnoses / Procedures Referred By Wander hernandez Referred To Contact Diagnoses Raynaud's disease without gangrene Procedures Chemodenervation, medical Sohail Mccoy MD [facility] [place] [address] Referral ID Status Reason Start Date Expiration Date V isits Requested Visits Authorized [id number] Closed Consult, Test & Treat 02/08/2018 02/08/2019 1 1 Reason for Visit * Reason Comments Follow-up bilateral Raynauds * High Dollar Medication (Routine) - Closed Specialty Diagnoses / Procedures Referred By Wander hernandez Referred To Contact Plastic Surgery Diagnoses Raynaud's disease without gangrene Other specified mononeuropathies of bilateral upper limbs Procedures Auth Request for Medication TC ONABOTULINUMTOXINA, 1 UNIT, INJECTION DESTROY NERVE,EXTREM/TRUNK MUSCLES PRFM Sohail Mccoy MD [facility] [place] [address] Sohail Mccoy MD [facility] [place] [address] Referral ID Status Reason Start Date Expiration Date V isits Requested Visits Authorized [id number] Closed Consult, Test & Treat 10/27/2017 09/18/2021 9 9 Encounter Details Date Type Department Care Team (Late st Contact Info) Description 02/08/2018 11:00 AM EDT Office Visit [place] [address] Sohail Mccoy MD [facility] [place] [address] Raynaud's disease without gangrene Social History Tobacco [...] as of this encounter Progress Notes * Sohail Mccoy MD - 02/08/2018 11:00 AM EDT Plastic Surgery Follow Up Note Reason for visit: F/U status post procedure Date of surgery: 10/07/16 Procedure(s): Ulnar artery transfer into cephalic vein. Complications: None reported HPI: Amber Wells returns today in f/u. She just completed a 10 day course of Bactrim. She hasbeen [employer] skiing and has had success keeping her hands warm using heated gloves. With regards to the Botox injections, she feels her hand improved slightly but did have difficulty with the extremely cold weather. Examination: Patient is alert, conversant, comfortable, ambulating Incision: CDI, healing well. No signs of infection Able to flex and extend at elbow, wrist, fingers with expected stiffness Hands: stable tight fibrotic skin, healed ulcers at the tips of the thumb, index, and small fingers, fingertip with delayed 2-3 sec CR. Impression: Amber Wells is a 57 y.o. female who was seen today for follow- up after the above procedures, ongoing distal digital ischemia despite good PVR and recent bypasses of the ulnar systemc/w ongoing distal dz vs vasospasm. Please see the operative note for details. She is healing well to date. Today we will proceed with subsequent botox injections to both her hands. She may follow upearly fall/winter if her symptoms are controlled through the summer. Plan: Bilateral botox injections to hands Follow up approx 6 months IJudie, am acting as scribe for Dr. Mccoy. All work documented was performed by . ???I performed the above scribed service and agree with the accuracy of the note?? SOHAIL MCCOY MD. documented in this encounter Procedure Notes * Sohail Mccoy MD - 02/08/2018 11:00 AM EDTAssociated Order(s): CHEMODENERVATION, MEDICAL Pre-Procedure Diagnose(s): Raynaud's disease without gangrene Amber Wells returns for further Botox injections: ?? Alcohol and lidocaine gel skin prep 100 [...] 11:30 AM EST Office Visit Dermatology at [facility] [address] [place] [address] Jo Ordaz MD [facility] [place] [address] 12/13/2024 11:30 AM EST Appointment [place] [address] 12/13/2024 1:00 PM EST Office Visit Rheumatology at [facility] [place] [address] Kiet Pardo MD [facility] [place] [address] documented as of this encounter Procedures Procedure Name Priority Date/Time Associated Diagnosis Comments CHEMODENERVATION, MEDICAL Routine 02/15/2018 8:46 AM EDT Raynaud's disease without gangrene documented in this encounter Results * Chemodenervation, medical (02/15/2018 8:46 AM EDT) Narrative Sohail Mccoy MD - 02/15/2018 8:46 AM EDT Sohail Mccoy MD ? 02/15/2018 ??8:46 AM Amber Wells returns for further Botox injections: ?? Alcohol and lidocaine gel skin prep 100 u of botox injected as follows: ?? 5u in region of digital artery at radial and ulnar base of each digit, 2 per digit, so 10U per digit or 50U per hand. ??Both hands treated for a total of 100 Units. ?? Sohail Mccoy MD PROCEDURE/MINOR SEA GICAL ORDERABLES documented in this encounter Visit Diagnoses Diagnosis Raynaud's disease without gangrene documented in this encounter Care Teams Maintenance Shop Clerk Relationship Specialty Start Date End Date Yaritza Pierre MD [address] [place] [address] PCP - General 03/27/12 11/27/18 documented as of this encounter
--- OUTSIDE RECORDS SUMMARY | 2024-09-14 13:08 | XMS_ITS | Encounter Summary ---
Author Organization [facility] [place] [address] Care Team Providers Care Public Information Coordinator Name Role Phone Yaritza Pierre MD Primary Care Provider [phone] Reason for Visit * Reason Onset Date Comments Medication Refill 01/29/2018 Encounter Details Date Type Department Care Team (Late st Contact Info) Description 01/29/2018 Ref[place] [address] Yu Mcdonough, [facility] [address] [place] [address] Social History Tobacco Use Types Packs/Day Years [...] 11:30 AM EST Office Visit Dermatology at [facility] [address] [place] [phone] Jo Ordaz MD [facility] [place] [address] 12/13/2024 11:30 AM EST Appointment Pulmonology at [place] [phone] 12/13/2024 1:00 PM EST Office [place] [phone] Kiet Pardo MD [facility] [address] documented as of this encounter Visit Diagnoses Not on filedocumented in this encounter Care Teams Public Information Coordinator Relationship Specialty Start Date End Date Yaritza Pierre MD [address] [place] [address] PCP - General 03/27/12 11/27/18 documented as of this encounter
--- OUTSIDE RECORDS SUMMARY | 2024-09-14 13:08 | XMS_ITS | Encounter Summary ---
[place] [address] Care Team Providers Care Astronaut Mission Specialist Name Role Phone Yaritza Pierre MD Primary Care Provider [phone] Encounter Details Date Type Department Care Team (Late Contact Info) Description 07/26/2018 Telephone [place] [phone] Iqra Su Social History Tobacco Use Types Packs/Day Years [...] encounter Miscellaneous Notes * Telephone Encounter - Iqra Su - 07/26/2018 10:21 AM EDT Amber is now living in [place]. She is refusing her recall appt. She will have her healthcare done in [place]. documented in this encounter Plan of Treatment Upcoming Encounters Date Type Department Care Team (Late st Contact Info) Description 10/07/2024 11:30 AM EST Office Visit Dermatology at [facility] [address] [place] [address] Jo Ordaz MD [facility] [place] [address] 12/13/2024 11:30 AM EST Appointment [place] [phone] 12/13/2024 1:00 PM EST Office [place] [phone] Kiet Pardo MD [facility] [place] [address] documented as of this encounter Visit Diagnoses Not on filedocumented in this encounter Care Teams Astronaut Mission Specialist Relationship Specialty Start Date End Date Yaritza Pierre MD [address] [place] [phone] PCP - General 03/27/12 11/27/18 documented as of this encounter
--- OUTSIDE RECORDS SUMMARY | 2024-09-14 13:08 | XMS_ITS | Encounter Summary ---
Author Organization [facility] [place] [address] Care Team Providers Care Quick Print Operator Name Role Phone Yaritza Pierre MD Primary Care Provider [phone] Reason for Visit * Reason Comments Medication Refill Encounter Details Date Type Department Care Team (Late st Contact Info) Description 05/14/2018 [place] [address] Yu Mcdonough, [facility] [place] [address] Social History Tobacco Use Types Packs/Day Years [...] Dermatology at [facility] [address] [place] [address] Jo Ordaz MD [facility] [place] [address] 12/13/2024 11:30 AM EST Appointment Pulmonology at [place] [phone] 12/13/2024 1:00 PM EST Office [place] [phone] Kiet Pardo MD [facility] [place] [address] documented as of this encounter Visit Diagnoses Not on filedocumented in this encounter Care Teams Quick Print Operator Relationship Specialty Start Date End Date Yaritza Pierre MD [address] [place] [address] PCP - General 03/27/12 11/27/18 documented as of this encounter
--- OUTSIDE RECORDS SUMMARY | 2024-09-14 13:08 | XMS_ITS | Encounter Summary ---
Author Organization [facility] [place] [address] Care Team Providers Care Forestry Supervisor Name Role Phone Yaritza Pierre MD Primary Care Provider [phone] Encounter Details Date Type Department Care Team (Late st Contact Info) Description 01/10/2018 1:56 PM EST Anesthesia [place] [address] Ysabel Patterson MD [facility] DR [place] [address] Anesthesia Record Procedure Summary Procedure Name Responsible Anesthesiologist Anesthesia Start Time Anesthesia Stop Time EGD WITH BIOPSY (WRVU 2.39) (Trunk) Ysabel Patterson MD 01/10/18 1356 01/10/18 1436 Events Date Time Event Comment 01/10/2018 1314 1356 Start 1357 AN Verify 1357 An Start Data 1358 An Induction 1359 Anesthesia Ready 1425 an stop data 1436 Recovery or ICU Handoff Lorri ent care was transferred to the destination unit staff after review of the patient's medical history, current anesthetic/surgical status and plan, according to the Provider Handoff Checklist. 1436 Stop Meds Name Total IV Lidocaine 100 mg Propofol 50 mg Propofol INF 262.92 mg Dexmedetomidine 16 mcg PHENYLephrine 240 mcg lactated Ringers infusion 400 mL * Agents Name O2 [...] (RETIRED) Peripheral IV Line - Single Lumen 01/10/18; 1305; median vein (underside of arm), left; czzz-[id number] catheter system; 22 gauge; [place] Rice; distraction; 01/10/18; 1502 01/10/18 1305 by Pamela Allison RN 01/10/18 1502 by Kalli Corley RN documented in this [...] OR Notes * Anesthesia Postprocedure Evaluation - Ysabel Patterson MD - 01/10/2018 2:48 PM EST [facility] Department of Anesthesiology Post-procedure Note Patient: Amber Wells Procedure Summary Date Anesthesia Start Anesthesia Stop Room / Location 01/10/[address] [facility] ENDO 3 / [facility] END[facility] Procedure Diagnosis Surgeon Responsible Provider EGD WITH BIOPSY (WRVU 2.49) (N/A Trunk) (egd with lacy - may 2017; gerd and barretts ablation- PerLacy) Andrew Berger MD Low, Ying Hui, MD All Anesthesia Providers: Anesthesiologist: Ysabel Patterson MD LEAD FURNACE OPERATOR: Randa Raphael CRNA There were no vitals filed for this visit. Pain 0 (01/10/18 1431) Patient Location: PACU/[facility] Level of Consciousness: Awake and Alert Pain Management: Satisfactory Analgesia PONV: None Cardiovascular Status: At Baseline and Hemodynamically Stable Respiratory Status: At Baseline and Room Air Postoperative Fluid Status: Intravascular EUvolemia Possible Anesthetic Complications: NONE apparent at time of evaluation Final Primary Anesthesia Type: MAC (The anesthetic type performed was the same as planned.) Comments: Ysabel Patterson MD * Anesthesia Preprocedure Evaluation - Ysabel Patterson MD - 01/09/2018 3:04 PM EST Pre-Anesthesia Evaluation for: Amber Wells a 57 y.o. female. Procedure(s): EGD, UPPER GI ENDOSCOPY Patient Active Problem List Diagnosis ??? Raynaud's disease without gangrene ??? Swelling [...] crisis Had tunnelled dialysis catheter removed at [facility] IR in June 2010 ??? Scleroderma Past [...] disorder ??? Raynaud's syndrome 1990 ??? Scleroderma 1991 Diffuse scleroderma. Past Surgical History: Procedure Laterality Date ??? CREATED BY INTERFACE Entered not Verified Procedure Date: 01/27/2011 ??? CREATED BY INTERFACE No History of Operative Procedures Procedure Date: 01/27/2011 ??? DILATION AND CURETTAGE OF UTERUS ??? PRO APPLY FOREARM SPLINT, STATIC Left 04/08/2016 SPLINT APPLICATION, SHORT ARM performed by Andre Marroquin MD at [facility] MAIN OR ??? PRO ENDOSCOPIC US EXAM, ESOPH N/A 03/29/2016 UPPER EUS- ENDOSCOPIC ULTRASOUND performed by Darryl Ash MD at [facility] ENDOSCOPY ??? PRO REBL VES VEIN GRFT, UP EXTREM Left 04/08/2016 REPAIR BLOOD VESSEL WITH VEIN GRAFT, UPPER EXTREMITY performed by Andre Marroquin MD at [facility] MAIN OR ??? PRO UPPER GI ENDOSCOPY, BIOPSY N/A 03/29/2016 UPPER GASTROINTESTINAL ENDOSCOPY,WITH BIOPSY SINGLE OR MULTIPLE performed by Darryl Ash MD at [facility] ENDOSCOPY ??? PRO VEIN BYPASS GRAFT, BRACHIAL ULNAR OR RADIAL Right 10/07/2016 @BYPASS GRAFT, BRACHIAL-ULNAR OR RADIAL W\VEIN (VASC) performed by Andre Marroquin MD at [facility] MAIN OR ??? 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 Smoking status: Former Smoker Packs/day: 1.00 Years: 10.00 Types: Cigarettes Quit date: 03/30/1988 ??? Smokeless tobacco: Never Used ??? Alcohol use 0.6 oz/week 1 Glasses of wine per week Comment: once a week History Drug Use No Allergies Allergen Reactions ??? Other [Unclassified Drug] Lobster--weird sensation Medications: MAR and/or home medications have been reviewed. Physical Exam: There were no vitals filed for this visit. There is no height or weight on file to calculate BMI. Airway Assessment: Mallampati: III TM distance: >3 FB Neck ROM: limited Cardiovascular Assessment: Rhythm: regular Pulmonary Assessment: breath sounds clear to auscultation Dental Assessment: - normal exam Misc Assessment: Patient is wearing No contact(s). IV access: Peripheral line Other exam findings: Prominent incisors, decreased interincisor distance Anesthesia Plan: ASA 3 MAC, with a(n) intravenous induction 57 y.o. year-old female who is scheduled for an EGD for eval of Joseph's esophagus and ablation. MEDICAL HISTORY is also significant for: HTN, 10 pk yr hx , scleroderma and Raynaud's syndrome, Desmoid fibromatosis, stage 4 CKD with prior HD need, GERD controlled on omeprazole 03/31/16 TTE: EF 65% no hemodyn significant valve dz ANESTHESIA HISTORY: Prev GA with no significant complications, easy mask vent, gr2v Mac3 in 2016 and prev igel3. NPO STATUS: Appropriate LABS: Hb 13.3, Plt 293k, K4.9, BUN/Cr 20/1.18, LFTs not elevated ANESTHETIC PLAN Monitored anesthesia care (propofol) Backup plan [place] Standard ASA monitors. Region - Other Informed Consent: Plan discussed with LEAD FURNACE OPERATOR. PAT Staff Note documented in this encounter Plan of Treatment Upcoming Encounters Date Type Department Care Team (Late st Contact Info) Description 10/07/2024 11:30 AM EST Office Visit Dermatology at [address] [phone] Jo Ordaz MD [facility] [place] [address] 12/13/2024 11:30 AM EST Appoint[place] [phone] 12/13/2024 1:00 PM EST Office [place] [phone] Kiet Pardo MD [facility] RHEUMATOLOGY [place], [place] [phone] documented as of this encounter Visit Diagnoses Not on filedocumented in this encounter Administered Medications Inactive Administered Medications - up to 3 most recent administrations Medication Order MAR Action Action Date Dose Rate Site dexmedetomidine (PRECEDEX) injection PRN, Starting on Mon01/10/18 at 1407, Until Mon01/10/18 at 1436, Anesthesia Intra-op, Routine Given 01/10/2018 2:07 PM EST 8 mcg Given 01/10/2018 2:02 PM EST 8 mcg lidocaine (PF) (XYLOCAINE) 100 mg/5 mL (2 %) injection PRN, Starting on Mon01/10/18 at 1404, Until Mon01/10/18 at 1436, Anesthesia Intra-op, Routine Given 01/10/2018 2:04 PM EST 100 mg PHENYLephrine in NS (PF) (ARI-SYNEPHRINE) 0.8 mg/10 mL (80 mcg/mL) multi-dose injection Syrg PRN, Starting on Mon01/10/18 at 1420, Until Mon01/10/18 at 1436, Anesthesia Intra-op, Routine Given 01/10/2018 2:20 PM EST 80 mcg Given 01/10/2018 2:17 PM EST 80 mcg Given 01/10/2018 2:05 PM EST 80 mcg propofol (DIPRIVAN) 10 mg/mL bolus injection (Anesthesia) PRN, Starting on Mon01/10/18 at 1404, Until Mon01/10/18 at 1436, Anesthesia Intra-op Given 01/10/2018 2:04 PM EST 50 mg propofol (DIPRIVAN) infusion CONTINUOUS PRN, Starting on Mon01/10/18 at 1406, Until Mon01/10/18 at 1436, Anesthesia Intra-op, Routine Rate/Dose Change 01/10/2018 2:10 PM EST 300 mcg/kg/min 112.7 mL/hr New Bag 01/10/2018 2:06 PM EST 400 mcg/kg/min 150.2 mL/ hr New Bag 01/10/2018 2:02 PM EST 200 mcg/kg/min 75.1 mL/h r documented in this encounter Care Teams Forestry Supervisor Relationship Specialty Start Date End Date Yaritza Pierre MD [address] [place] [id number] PCP - General 03/27/12 11/27/18 documented as of this encounter
--- OUTSIDE RECORDS SUMMARY | 2024-09-14 13:08 | XMS_ITS | Encounter Summary ---
[place] [address] Care Team Providers Care Coverstitch Elastic Attacher Name Role Phone Yaritza Pierre MD Primary Care Provider [phone] Reason for Referral * Diagnostic Test (Routine) - Closed Specialty Diagnoses / Procedures Referred By Wander hernandez Referred To Contact Radiology Diagnoses Desmoid fibromatosis Procedures MRI Upper Extremity Non Joint wwo Contrast Breanna Ordoñez MD [facility] [place] [address] [place] [address] Referral ID Status Reason Start Date Expiration Date V isits Requested Visits Authorized [id number] Closed Specialty Service Requested 01/03/2019 04/03/2019 1 1 Encounter Details Date Type Department Care Team (Late st Contact Info) Description 11/09/2018 Orders Only [place] [address] Breanna Ordoñez MD [facility] [place] [address] Desmoid fibromatosis (Primary Dx) Social History Tobacco [...] 11:30 AM EST Office Visit Dermatology at [place] [address] [place] [address] Jo Ordaz MD [facility] [place] [address] 12/13/2024 11:30 AM EST Appointment [place] [phone] 12/13/2024 1:00 PM EST Office [place] [phone] Kiet Pardo MD [facility] [place] [address] documented as of this encounter Results * [...] the number below. ? Electronically signed by: HERB Myers [facility] ([phone]), at 01/25/2019 10:28 AM Narrative 01/25/2019 10:28 AM EST EXAMINATION: MRI UPPER EXTREMITY NON JOINT WWO CONTRAST CLINICAL HISTORY: Desmoid fibromatosis TECHNIQUE: MRI of a portion of the left chest wall was performed without and with the intravenous administration of 13 mL of Dotarem in accordance with our institution's standardized functional soft tissue tumor protocol, including in-and wkv-gj-[id number] sequences, diffusion-weighted imaging sequences, and dynamic contrast-enhanced [...] standardized functional soft tissue tumor protocol,including in-and [id number]-[id number] sequences, diffusion-weighted imaging sequences, anddynamic contrast-enhanced sequences. COMPARISON: Multiple prior left chest wall MRIs ranging from 08/28/2014 [id number]/06/2017. FINDINGS: 2 skin markers were placed at [...] contact the number below. Electronically signed by: Nia Cardona [facility] ([phone]),at 01/25/2019 10:28 AM Breanna Barreto MD IMG MRI ORDERABL ES documented in this encounter Visit Diagnoses Diagnosis Desmoid fibromatosis- Primary Other benign neoplasm of connective and other soft tissue of unspecified site Desmoid fibromatosis Other benign neoplasm of connective and other soft tissue of unspecified site documented in this encounter Care Teams Coverstitch Elastic Attacher Relationship Specialty Start Date End Date Yaritza Pierre MD [address] [place] [address] PCP - General 03/27/12 11/27/18 documented as of this encounter
--- OUTSIDE RECORDS SUMMARY | 2024-09-14 13:08 | XMS_ITS | Encounter Summary ---
Author Organization [facility] Address [facility] [place] [address] Care Team Providers Care Gear Hobber Set Up Operator Name Role Phone Yaritza Pierre MD Primary Care Provider [phone] Reason for Visit * Reason Comments Skin Check Encounter Details Date Type Department Care Team (Late st Contact Info) Description 11/02/2017 8:30 AM EST Office Visit Dermatology at [facility] [address] [place] [address] Jo Ordaz MD [facility] [place] [address] Skin lesion; Seborrheic keratosis, inflamed; SK (seborrheic keratosis); AK (actinic keratosis); Multiple benign nevi; Dermatofibroma; Scleroderma Social History Tobacco Use Types Packs/Day [...] this encounter Patient Instructions * Patient Instructions* Susannah Watts - 11/02/2017 8:30 AM EST Treatment and Wound Care Instructions Your treatment today: You have had a punch biopsy of your skin, which is a removal of tissue for examination under a microscope. There are stitches in the wound that will need to be removed in 7-10 days. If bleeding occurs, hold firm pressure against the wound for 15 minutes. If bleeding continues, calls the office or go to your local emergency room. Please allow 1-2 weeks for the biopsy results to return. Your physician or nurse will contact you with the results by phone or letter; follow-up will be discussed at that time. Wound Care Instructions: You will need to keep the dressing placed over the wound dry and intact for 24 hours. Afterwards, perform the following wound care daily until your stitches are removed: ?? Wash your hands before changing the dressing. ?? Remove the bandage and clean the area with mild soap and water, then gently pat the area dry. ?? Apply a small amount of Vaseline to the area, then cover the wound with a band-aid. Change your dressing daily until the wound is fully healed. ?? A small amount of yellow drainage is part of normal healing. You might notice some redness around the edge of the wound. This is normal. ?? Please contact the office you you notice any of the following signs of infection: increased tenderness, pain, drainage, or redness that becomes hot or hard around the wound. If you have further questions or concerns, please call the office at [phone]. If it is after 5PM, or a holiday or weekend, please call [phone] and ask for the Video Editing Internship on-call. Actinic Keratoses You have been diagnosed today [...] 3-4 weeks. Please contact the Dermatology clinic at [phone] if the lesion has not fully resolved after 6 weeks. documented in this encounter Progress Notes * Jo Ordaz MD - 11/09/2017 5:12 PM EST Marie, The biopsy shows benign calcium deposit, which can happen in scleroderma. No further treatment is needed at this time. Good news. Please notify patient. Thank you, DTB * Jo Ordaz MD - 11/02/2017 8:30 AM EST Images from the original note were not included. DERMATOLOGY ESTABLISHED PATIENT CLINIC NOTE Date of service: 11/02/2017 Amber Wells : 1960 Provider: Jo Ordaz MD Chief Complaint Patient presents with ??? Skin Check SKIN HISTORY: Sister history of melanoma ? 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 (See Comment.) -05/30/14-tending pathologist whose signature appears on this report has reviewed all diagnostic slides and has edited the gross and/or microscopic portion of the report in rendering the final pathologic diagnosis. ---Comment--- Extensive repair and inflammatory changes complicate the evaulation for residual desmoid fibromatosis. IHC study suggests the possibility that residual lesion is present near the caudal margin, however extensive reactive change is also present there. It is recommended that additional surgery be delayed until further healing occurs and that the area be reevaluated clinically after healing is more complete. -05/28/2014- ---Pathologic Diagnosis--- A - Desmoid fibromatosis re-excision Prior excision site with scar, inflammed granulation tissue and focus suspcious for residual desmoid fibromatosis within 0.1 cm of caudal margin (See Comment) BOBBY Wells is a 57 y.o. year old female, established patient last seen by me on 10/20/16. 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 Followed by Dr. Ordoñez, recent appt, no evidence of recurrence. Here today for a full skin examination. Patient reports a lump under the skinlocated on the left forearm distal to the elbow, that first appeared over the summer and is asymptomatic. Patient is not aware of hx of trauma, but does not discount possibility She mentions Dr. Breanna Ordoñez had taken a photo a few weeks ago for Dr. Ordaz to monitor any change in size. Patient also mentions a rough irritating spot on her right jaw line, unsure how long this has been presentfor, painful at times. Raynaud's has been problematic. On sildenafil and Norvasc. Seeing Dr. Marrero of Plastics today forbotox injections. MEDS: Current Outpatient Prescriptions Medication Sig Dispense Refill ??? fosinopril (MONOPRIL) 20 mg Tablet Take 1 tablet by mouth daily. 90 tablet 3 ??? pentoxifylline (TRENTAL) 400 mg Tablet Sustained Release Take 1 tablet by mouth 3 times daily (with meals). 90 tablet 5 ??? sildenafil (REVATIO) 20 mg Tablet 2 tablets in am, 1 tablet at noon and 2 tablet in pm 450 tablet 3 ??? esomeprazole (NEXIUM) 40 mg Capsule, Delayed Release(E.C.) Take 1 capsule by mouth daily. 90 capsule 3 ??? glycerin, adult, Suppository daily as needed. 0 ??? acetaminophen-codeine (TYLENOL #3) 300-30 mg Tablet Take 2 tablets by mouth every 6 hours as needed for Pain. Reported on 03/29/2017 60 tablet 1 ??? LIDOCAINE 2 % Solution APPLY TO PAINFUL AREAS IF NEEDED 0 ??? amLODIPine (NORVASC) 10 mg Tablet Take 2 tablets by mouth daily. 180 tablet 3 ??? acetaminophen (TYLENOL) 500 mg Tablet Take [...] pleasant, cooperative Skin: Patient was asked to disrobe to the level of their comfort. A total body skin exam except for areascovered by underwear was performed. This includes examination of the skin of the face, ears, neck, chest, axillae, left and right upper and lower extremities, hands and feet, abdomen, and except the areas covered by underwear were not examined. Significant skin findings: A. Left extensor forearm: 1 x 2 cm, firm, subcutaneous nodule. Patient with hx of desmoid tumor andscleroderma.. [Figures A, A1] Figure A A1 Photo(s) taken?? by Susannah Watts, Clinical Scribe, with patient's verbal permission for use for clinical and education purposes. ?? B. Central chest Inflamed 0.4-0.6 cm pink-brown papule with waxy stuck on appearance. ?? C. Left jawline: 0.4-0.6 cm brown papules/plaque with waxy stuck on appearance. ?? D.Left lateral canthus x 1, left alar crease x 1 : 0.2-0.3cm scaly irregular pink papules [Total:2 ] E. Left lower leg x 2: firm papules, centrally raised and sclerotic, with peripheral hyperpigmentation and dimpling with lateral pressure. F. Few, 0.3-0.5cm, medium-brown, evenly-pigmented macules and papules. All with regular pigment pattern on dermoscopy. No pigmented lesions suspicious for melanoma. G. Sclerodactyly, Taut skin on face, hands, and feet.-diffuse hyperpigmentation, no claire lines noted ASSESSMENT/PLAN: A. Cutaneous Calcinosis v Dermatofibroma v Pilomatricoma r/o desmoid fibromatosis In-patient with history of scleroderma and desmoid fibromatosis Smaller in size since 10/06/17 (3 x 2 cm) Procedure: Skin biopsy by punch technique. Location: left extensor forearm Discussed indications for the procedure and expectations including risks and benefits. Verbal consent obtained. Skin prep with alcohol. Local anesthesia: 1% lidocaine with 1/100,000 epinephrine. A 4 mm punch biopsy to the level of the subcutis was performed. Wound closed with monofilament suture. There were no complications; the patient tolerated the procedure well. The wound was dressed. Post-procedure expectations (including discomfort management), wound care and activity restrictions were reviewed. Follow-up based on pathology results. Suture removal: 7 days B. Inflamed Seborrheic Keratoses Discussed benign nature of lesion and provided reassurance. However, due to irritation present on today's exam and history of symptoms, discussed removal with liquid nitrogen today in the office. Discussed risk of hypopigmentation and discomfort, discussed alternatives, and reviewed wound care. Thepatient agreed to the procedure after discussing risks/benefits/alternatives. C. Seborrheic Keratosis - Patient reassured lesions are benign in nature -Patient advised to call, should they become inflamed or irritated D. Actinic Keratoses - Discussed with patient the natural history and etiology of actinic keratoses. Discussed premalignent potential of these lesions. Discussed treatment options including risks, benefits, and alternatives. - Decision was made together with patient to proceed with Cryotherapy (LN2), see procedure note below. ?? Procedure Note: Procedure: Destruction of lesion(s) with cryotherapy. Number: 2 Location(s) as above Discussed procedure and expectations including risks (especifically discussed with pt the risk of hypopigmentation) and benefits. Verbal consent obtained. Frozen with LN2, 15-30 second thaw time, TWICE. There were no complications; the patient tolerated the procedure well. Post-procedure expectations and wound care were reviewed. Patient was instructed to observe skin closely for any changes, and call if such occurs E. Dermatofibroma (DF) - Discussed benign nature of lesion and provided reassurance. No treatment necessary at this time. ?? F. Benign appearing nevi, patient reassured - Patient instructed to return to clinic for re-evaluation of area if notes change, growth, bleeding, etc. - Advised to watch for anything new or changing. ? G. Scleroderma - systemic disease managed by rheumatology ?? - The nature of sun-induced photo-aging and skin cancers is discussed. Sun avoidance, protective clothing, and the use of 30-SPF broad spectrum sunscreens is advised. Observe closely for skin damage/changes, and call if such occurs. ?? Follow up: Based on pathology results, or if changes/symptoms in new or existing lesions develop. Patient elects to receive results on [facility]. Return to clinic in 6 months for full skin exam, or soonerif needed. Appointment made before exiting. Patient instructed to call with questions or concerns. I am documenting this encounter acting as the scribe for and in the presence of Dr. Ordaz: FREDIS TOTH LPN and Susannah Watts, Clinical Scribe, I performed the above scribed service and agree with the accuracy of the documentation in this encounter. Jo Ordaz MD Ingredient Scaler Helper of Dermatology, Department of Network SupportIngredient Scaler Helpertechnical specialist (Dermatopathology) [facility] documented in this encounter Plan of Treatment Upcoming Encounters Date Type Department Care Team (Late st Contact Info) Description 10/07/2024 11:30 AM EST Office Visit Dermatology at [facility] [address] [place] [address] Jo Ordaz MD [facility] [place] [address] 12/13/2024 11:30 AM EST [place]ointment [place] [phone] 12/13/2024 1:00 PM EST Office [place] [address] Kiet Pardo MD [facility] [place] [address] documented as of this encounter Procedures Procedure Name Priority Date/Time Associated Diagnosis Comments SPECIMEN TO PATHOLOGY (NON-OR) Routine 11/02/2017 9:48 AM EST Skin lesion SURGICAL PATHOLOGY REPORT Routine 11/02/2017 9:48 AM EST documented in this encounter Results * Surgical Pathology Report (11/02/2017 9:48 AM EST) Final Diagnosis [id number] ? Location: [facility] The signing pathologist has (i) examined the relevant preparation(s) for the specimen(s) and (ii) rendered or confirmed the diagnosis(es). . ?Surgical Pathology DIAGNOSIS Skin, left extensor forearm, punch ?? biopsy: - Calcinosis cutis (see discussion) - Incidental lentigo Electronically signed by: ??Kiet Fitzgerald MD Verified: ??11/07/2017 ?Dermatopatholog ist Performed at: ??-[facility] Dept. of Pathology, [place], [place] DISCUSSION The surrounding dermal collagen is homogenous with scant cellularity, which is insufficient for a diagnosis of fibromatosis. The accompanying dermal changes are of uncertain significance. ??Although we note the clinical history of scleroderma, calcinosis can occur in a broad range of clinical settings. While eccrine ducts in this sample do not appear compressed, CD34 staining shows an absence of dermal interstitial dendritic cells and EVG shows some broadened, compressed fibers that would raise consideration for concomitant scleroderma. ?Clinical correlation is recommended to determine whether or not these findings represent the lesion in its entirety. ADDITIONAL STUDIES Multiple step-leveled sections are examined. Beta-catenin staining is interpreted as negative but difficult to interpret in light of artifact and high background staining. CLINICAL INFORMATION Specimen Submitted: A - Skin, left extensor forearm, punch (2) Clinical History: 1 x 2 cm firm, subcutaneous nodule. Patient with history of desmoid tumor and scleroderma Clinical Diagnosis: Cutaneous calcinosis versus desmoid tumor versus dermatofibroma versus pilomatricoma SPECIMEN PROCESSING A - Labeled/Fixative: Left extensor forearm, formalin. Quantity/Size: Four, ranging from 0.1-0.4 cm. Tissue Description: Two small fragments of calcified material and a 4 mm punch of claire skin excised to a depth of 0.3 cm. Sections/Processi ng: The punch is bisected and the specimen is entirely submitted. (T1) ??ejr 11/07/2017 12:47 PM EST [facility] SPECIMEN FROM SKIN / Unknown 11/02/2017 9:48 AM EST 11/02/2017 9:48 AM EST Jo Ordaz MD PATHOLOGY/CYTOLOGY ORDERABLES Performing Organization Address City/[facility] [place] [address] * Specimen to Pathology (NON-OR) (11/02/2017 9:48 AM EST) AP Specimen 11/02/2017 9:48 AM EST 11/02/2017 12:51 PM EST Narrative [facility] - 11/02/2017 12:51 PM EST Specimen requisition ordered. ??Separate Pathology report to follow Resulting Agency Comment Spec In Lab Jo Ordaz MD PATHOLOGY/CYTOLOGY ORDERABLES [facility] [place] [address] documented in this encounter Visit Diagnoses Diagnosis Skin lesion Unspecified disorder of skin and subcutaneous tissue Seborrheic keratosis, inflamed Inflamed seborrheic keratosis SK (seborrheic keratosis) Other seborrheic keratosis AK (actinic keratosis) Actinic keratosis Multiple benign nevi Benign neoplasm of skin, site unspecified Dermatofibroma Benign neoplasm of skin, site unspecified Scleroderma Systemic sclerosis documented in this encounter Care Teams Gear Hobber Set Up Operator Relationship Specialty Start Date End Date Yaritza Pierre MD [address] [place] [address] PCP - General 03/27/12 11/27/18 documented as of this encounter
--- OUTSIDE RECORDS SUMMARY | 2024-09-14 13:08 | XMS_ITS | Encounter Summary ---
[place] [address] Care Team Providers Care Ui Programmer Name Role Phone Gorge Man MD Primary Care Provider [phone] Reason for Visit * Reason Onset Date Comments Prior Authorization 12/05/2018 Encounter Details Date Type Department Care Team (Late st Contact Info) Description 12/05/2018 Tele[place] [address] Jodi Pressley Prior Authorization Social History Tobacco [...] * Telephone Encounter - Jodi Pressley - 12/17/2018 12:28 PM EST Health plan decision: Approved Quantity approved: 150 per 30 days Authorization number: [id number] Start date: 12/13/18 End date: 12/13/19 * Telephone Encounter - Jodi Pressley - 12/12/2018 11:39 AM EST Re-submitted via CMM to [place] Medicaid * Telephone Encounter - Jodi Pressley - 12/05/2018 12:22 PM EST Medication Prior Authorization Ceasar Medication name/dose/directions: Sildenafil 20mg - 2 tablets in am, 1 tablet in afternoon and 2 tablets in pm Rationale for request: Raynaud's Disease Health plan: [employer] (fax) Authorizing office machines sales representative name: Leah Faxed to health plan on: 12/05/18 Health plan decision: This member termed with us on 08/18/18 and has no other active coverage Quantity approved: Authorization number: Start date: End date: documented in this encounter Plan of Treatment Upcoming Encounters Date Type Department Care Team (Late st Contact Info) Description 10/07/2024 11:30 AM EST Office Visit Dermatology at [address] [phone] Jo Ordaz MD [facility] [place] [address] 12/13/2024 11:30 AM EST Appointment [place] [phone] 12/13/2024 1:00 PM EST Office [place] [address] Kiet Pardo MD [facility] RHEUMATOLOGY [place], [place] [id number] documented as of this encounter Visit Diagnoses Not on filedocumented in this encounter Care Teams Ui Programmer Relationship Specialty Start Date End Date Gorge Man MD PCP - [facility] 11/28/18 02/18/21 documented as of this encounter
--- OUTSIDE RECORDS SUMMARY | 2024-09-14 13:08 | XMS_ITS | Encounter Summary ---
Author Organization [facility] Address [facility] [address] Care Team Providers Care Test Specialist Name Role Phone Yaritza Pierre MD Primary Care Provider [phone] Encounter Details Date Type Department Care Team (Latest Contact Info) Description 01/10/2018 11:56 AM EST - 01/10/2018 3:27 PM [facility] [[email or web address] Hospital Encounter [place] [address] Andrew Berger MD [facility] [place] [address] CKD (chronic kidney disease) stage 3, GFR 30-59 ml/min; Scleroderma Discharge Disposition: Home Social History Tobacco [...] better as expected. Monday-Monday Same Day Endo [phone] Otherwise contact [phone] and ask to speak to the doughmaker button inspector Follow-up care is a cardenas part of [...] by: Markel Norman MD Department of Gastroenterology [facility] 01/10/2018 documented in this encounter Miscellaneous Notes * Op Note - Andrew Berger MD - 01/10/2018 2:43 PM EST [facility] Operative Note Patient Name: Amber Wells : [id number] MR#: [id number] Case Date: 01/10/2018 Surgeon: Surgeon(s) and Role: [...] 11:30 AM EST Office Visit Dermatology at [address] [address] Jo Ordaz MD [facility] [place] [address] 12/13/2024 11:30 AM EST Appointment [place] [phone] 12/13/2024 1:00 PM EST Office [place] [address] Kiet Pardo MD [facility] [place] [address] documented as of this encounter Procedures Procedure [...] Report (01/10/2018 2:19 PM EST) Final Diagnosis [id number] ? Location: ; [facility]; A The signing pathologist has (i) examined [...] MD, I Verified: ??02/01/2018 ?Pathologist Performed at: ??-[facility] Dept. of Pathology, [place], [place] ?Surgical Pathology DIAGNOSIS A - GE [...] Urrutia MD Verified: ??01/12/2018 ?Pathologist Performed at: ??-[facility] Dept. of Pathology, [place], [place] CLINICAL INFORMATION Specimen Submitted: A - [...] ng: (T1) ??eddie 02/01/2018 10:25 AM EDT [facility] GI Biopsy 01/10/2018 2:19 PM EST 01/10/2018 2:19 PM EST GI Biopsy 01/10/2018 2:19 PM EST 01/10/2018 2:19 PM EST GI Biopsy 01/10/2018 2:19 PM EST 01/10/2018 2:19 PM EST Consult Case 01/10/2018 2:19 PM EST 01/10/2018 2:19 PM EST Andrew Berger MD PATHOLOGY/CYTOLOGY O YVETTE Performing Organization Address City/[facility]/[place] [address] * Specimen to Pathology (01/10/2018 2:19 PM EST) AP Specimen 01/10/2018 2:19 PM EST 01/10/2018 3:24 PM EST Narrative [facility] - 01/10/2018 3:24 PM EST Specimen requisition ordered. ??Separate Pathology report to follow Resulting Agency Comment Spec In Lab Andrew Berger MD PATHOLOGY/CYTOLOGY O YVETTE Performing Organization Address [facility]/[place] [address] * Specimen to Pathology (01/10/2018 2:19 PM EST) AP Specimen 01/10/2018 2:19 PM EST 01/10/2018 3:24 PM EST Narrative [facility] - 01/10/2018 3:24 PM EST Specimen requisition ordered. ??Separate Pathology report to follow Resulting Agency Comment Spec In Lab Andrew Berger MD PATHOLOGY/CYTOLOGY O YVETTE Performing Organization Address City/[facility]/[place] [address] * Specimen to Pathology (01/10/2018 2:19 PM EST) AP Specimen 01/10/2018 2:19 PM EST 01/10/2018 3:24 PM EST Narrative [facility] - 01/10/2018 3:24 PM EST Specimen requisition ordered. ??Separate Pathology report to follow Resulting Agency Comment Spec In Lab Andrew Berger MD PATHOLOGY/CYTOLOGY O YVETTE Performing Organization Address City/[facility]/[place] [address] * UPPER GI ENDOSCOPY (01/10/2018 1:29 PM EST) UPPER GI ENDOSCOPY [facility] Endoscopy ___ Procedure Date: 01/10/2018 1:29 PM ? Patient Name: Amber Wells ? Date of : 1960 ? Age: 57 ? Order #: [id number] ? Instrument Name: [id number] ? ___ Procedure: ? Upper GI endoscopy Indications: ? Follow-up of Joseph's esophagus, ? history of scleroderma Providers: ? Andrew Berger MD, Markel Norman, ? , Debbie Garcia RN, Tamika ? Janneth, Frozen Pie Maker Referring MD: ?Yaritza Pierre MD Medicines: ? [...] pathology. Wide Area ? Transepithelial Sampling (WATS-3D Adrian Biopsy) was ? performed for histology and [...] 1:05 PM EST 100 mL/hr 100 mL/hr documented [...] anesthesia) documented in this encounter Care Teams Test Specialist Relationship Specialty Start Date End Date Yaritza Pierre MD [address] [place] [address] PCP - General 03/27/12 11/27/18 documented as of this encounter
--- OUTSIDE RECORDS SUMMARY | 2024-09-14 13:08 | XMS_ITS | Encounter Summary ---
Author Organization [facility] [place] [address] Care Team Providers Care Utility Engineer Name Role Phone Yaritza Pierre MD Primary Care Provider [phone] Encounter Details Date Type Department Care Team (Late st Contact Info) Description 01/15/2018 Orders [place] [address] [facility] [place]UMAT[place] [address] Social History Tobacco Use Types Packs/Day Years [...] [facility] [address] [place] [address] Jo Ordaz MD [facility] [place] [address] 12/13/2024 11:30 AM EST Appointment Pulmonology at [place] [phone] 12/13/2024 1:00 PM EST Office [place] [phone] Kiet Pardo MD [facility] [place] [address] documented as of this encounter Visit Diagnoses Not on filedocumented in this encounter Care Teams Utility Engineer Relationship Specialty Start Date End Date Yaritza Pierre MD [address] [place] [address] PCP - General 03/27/12 11/27/18 documented as of this encounter
--- OUTSIDE RECORDS SUMMARY | 2024-09-14 13:08 | XMS_ITS | Encounter Summary ---
Author Organization [facility] [place] [address] Care Team Providers Care Esthetician/Spa Coordinator Name Role Phone Yaritza Pierre MD Primary Care Provider [phone] Encounter Details Date Type Department Care Team (Late st Contact Info) Description 06/05/2018 Orders [place] [address] Yu Mcdonough [facility] [place] [address] Social History Tobacco Use Types Packs/Day Years [...] 11:30 AM EST Office Visit Dermatology at [facility] [address] [place] [address] Jo Ordaz MD [facility] [place] [address] 12/13/2024 11:30 AM EST Appointment Pulmonology at [place] [id number] 12/13/2024 1:00 PM EST Office [place] [phone] Kiet Pardo MD [facility] [place] [address] documented as of this encounter Visit Diagnoses Not on filedocumented in this encounter Care Teams Esthetician/Spa Coordinator Relationship Specialty Start Date End Date Yaritza Pierre MD [address] [place] [address] PCP - General 03/27/12 11/27/18 documented as of this encounter
--- OUTSIDE RECORDS SUMMARY | 2024-09-14 13:08 | XMS_ITS | Encounter Summary ---
Author [place] [address] Care Team Providers Care Printing Supplies Sales Representative Name Role Phone Yaritza Pierre MD Primary Care Provider [phone] Reason for Visit * Reason Onset Date Comments Prior Authorization 04/18/[address] 40 mg Twice a day - Denied - Exceeds Maximun allowed Encounter Details Date Type Department Care Team (Late st Contact Info) Description 04/18/2018 Telephone [place] [phone] Marichuy Javed CMA GASTROENTEROLOGY DEPT Prior Authorization (esomeprazole Mag DR 40 mg Twice a day - Denied - Exceeds Maximun allowed) Social History Tobacco Use Types Packs/Day Years [...] Miscellaneous Notes * Telephone Encounter - Betzy Briones RN - 2018 9:19 AM EDT Call placed to insurance. Have not received fax that. Option 3, option 2, option 1, option 1 Approved until 05/07/2020. Call placed to pharmacy ot have them run rx. Script through at 40 mg BID. $0 copay. Message to patient on myDH to update. * Telephone Encounter - Betzy Briones RN - 05/08/2018 11:54 AM EDT Call placed to insurance . Explained that I was following up on PA that was denied. Per agent, states information was faxed regarding the denial in that more supporting documents were needed. States that re-review is open for another 30 days. She will submit request for re-review. They will fax denial information that includes specifically what information they are looking for. Confirmed fax #. Message to patient to update. * Telephone Encounter - Betzy Briones RN - 05/04/2018 1:31 PM EDT Call placed to insurance to check status on PA [phone]. Option 3, option 2, option 1, option 1 Per customer service. Clinical reviewed documents received. PA denial upheld. She will have someone from clinicals call to speak with me to review appeal process. Etc. Asked they have me paged. Message to patient on myDH to update. * Telephone Encounter - Betzy Briones RN - 05/01/2018 9:40 AM EDT Call placed to [facility] to f/u on status of PA. Reviewed nursing called on 04/24 to provide additional info. Per customer service, states she cannot see what clinical team has for info but can see that more information is needed. Faxed EGD notes and bx reports from 01/10 [facility] 3[facility] report to her attention at [phone]. Message to patient on myDH to update. * Telephone Encounter - Ashley Smith RN - 04/24/2018 10:54 AM EDT Prior Auth Request for Esomeprazole Mag DR 40 mg cap - DENIED - Exceeds Maximum allowed by plan. TC to [facility] Options - # [phone] Spoke with [employer] Request made for consideration of further information not sent with initial request of the Denial -Patient has been taking this medication twice a day since 01/10/18. Upper GI with Biopsy on 01/10/18 showed changes in mucosa with worsening Barrette's Esophagus. Requesting Quantity Exception so that patient may continue to be treated twice a day. Awaiting Response from [facility]. * Telephone Encounter - Marichuy Javed CMA - 04/18/2018 3:40 PM EDT Medication Prior Authorization 4L Gastroenterology / [place] [address] Subscriber Insurance: [employer] phone fax Physician: Andrew Berger Return [facility]: [facility] Medication Requested: esomeprazole Strength: 40 mg Frequency: BID Disp.: Refills: Currently taking: no Diagnosis for this medication: Joseph's/Gerd; CKD (chronic kidney disease) stage 3, GFR 30-59 ml/min (N18.3); Scleroderma (M34.9) ICD-10 code: Prior medications trialed in this patient: Esomeprazole QD Medication: Outcome/Adverse Reactions: treatment failure Decision: pending Tracking number/Case number/Reference number: Effective date: Start: End: documented in this encounter Plan of Treatment Upcoming Encounters Date Type Department Care Team (Late st Contact Info) Description 10/07/2024 11:30 AM EST Office Visit Dermatology at [facility] [address] [place] [address] [facility] [place] [address] 12/13/2024 11:30 AM EST Appointment [place] [phone] 12/13/2024 1:00 PM EST [place] [phone] [facility] [place] [address] documented as of this encounter Visit Diagnoses Not on filedocumented in this encounter Care Teams Printing Supplies Sales Representative Relationship Specialty Start Date End Date Yaritza Pierre MD [address] [place] [address] PCP - General 03/27/12 11/27/18 documented as of this encounter
--- OUTSIDE RECORDS SUMMARY | 2024-09-14 13:08 | XMS_ITS | Encounter Summary ---
Author Organization [facility] Address [facility] [place] [address] Care Team Providers Care Property Adjuster Name Role Phone Yaritza Pierre MD Primary Care Provider [phone] Reason for Visit * Reason Comments Skin Check FSE Encounter Details Date Type Department Care Team (Late st Contact Info) Description 04/18/2018 9:15 AM EDT Office Visit Dermatology at [facility] [address] [place] [address] Jo Ordaz MD [facility] [place] [place] [address] Dermatofibroma; SK (seborrheic keratosis); Scleroderma; Multiple benign nevi; Calcinosis cutis Social History Tobacco Use Types [...] Progress Notes * Jo Ordaz MD - 04/18/2018 9:15 AM EDT Images from the original note were not included. DERMATOLOGY ESTABLISHED PATIENT CLINIC NOTE Date of service: 04/18/2018 Amber Wells : 1960 Provider: Jo Ordaz MD Chief Complaint Patient presents with ??? 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 Comment: This case shows an incisional biopsy of a spindle cell tumor with apparent myofibroblastic differentiation by IHC. The differential includes fibromatosis.??An excision is required to examine the tumor-normal interface for definitive diagnosis. 05/06/2014 Soft tissue mass, back, resection: Deep, [...] reevaluated clinically after healing is more complete. 05/27/2014 A. Desmoid fibromatosis re-excision: Prior excision [...] reevaluated clinically after healing is more complete. 04/20/2016 Left anterior thigh, shave biopsy: Seborrheic keratosis. 11/02/2017 Left extensor forearm, punch biopsy: Calcinosis [...] findings represent the lesion in its entirety. Other: - Family history of melanoma (sister) - Actinic keratoses - Scleroderma - Lentigines - Benign Nevi Patient Preferences Preferred name: Amber Preferred contact method with results: myD-H Detailed message including biopsy results okay?: Yes Are there any other people with whom we may discuss your care?: No HPI Amber Wells is a 57 y.o. female, established patient last seen by me on 11/02/2017. Here today for a 6-month skin full skin exam (family scleroderma, history of melanoma). Denies any significant changes in health. She notes worsening ulcerations on the hands related to her scleroderma. MEDS: Current Outpatient Prescriptions Medication Sig Dispense Refill ??? acetaminophen-codeine (TYLENOL #3) 300-30 mg Tablet Take 2 tablets by mouth every 6 hours as needed for Pain. Reported on 03/29/2017 60 tablet 1 ??? cephalexin (KEFLEX) 500 mg Capsule Take 1 capsule by mouth 3 times daily. 30 capsule 0 ??? nitroGLYcerin (NITROGLYN) 2 % Ointment Place 0.5 inches onto the skin every 6 hours. 60 g PRN ??? amLODIPine (NORVASC) 10 mg Tablet Take 1 tablet by mouth daily. 90 tablet 3 ??? esomeprazole (NEXIUM) 40 mg Capsule, Delayed Release(E.C.) Take 1 capsule by mouth 2 times daily. 180 capsule 3 ??? fosinopril (MONOPRIL) 20 mg Tablet Take 1 tablet by mouth daily. 90 tablet 3 ??? sildenafil (REVATIO) 20 mg Tablet 2 tablets in am, 1 tablet at noon and 2 tablet in pm 450 tablet 3 ??? glycerin, adult, Suppository daily [...] comfort. A total body skin exam except forareas covered by underwear was performed. This includes examination of the skin of the face, ears, neck, chest, axillae, left and right upper and lower extremities, hands and feet, abdomen, and except the areas covered by underwear were not examined. Significant skin findings: A. Jaw line, torso and extremities: Scattered 0.4-0.6 cm pink-brown papules/plaque with waxy stuck on appearance. ?? B. Trunk and extremities: [id number] skin of scleroderma; punctate hyperkeratotic erosions on the distal fingertips, worse on the left thumb (erosion is approx. 0.5 cm), tender. [Figures A1, A2] Figures A1, A2 ?? Photo(s) taken by Susannah Watts, Clinical Scribe, with patient's verbal permission for use for clinical and education purposes. ?? C. Multiple 0.3-0.5 cm medium-brown, evenly-pigmented macules and papules. All with regular pigmentpattern on dermoscopy. No pigmented lesions suspicious for melanoma. D. Left lower leg x 2: Firm papules, centrally raised and sclerotic, with peripheral hyperpigmentation and dimpling with lateral pressure. E. 2 cm subcutaneous nodule at the site of the partially biopsied lesion of cutaneous calcinosis: stable and non-tender. ASSESSMENT/PLAN: A. Seborrheic Keratoses - Patient reassured lesions are benign in nature. - Patient advised to call if they become inflamed or irritated. B. Scleroderma - Systemic disease managed by Rheumatology. - Worsening Raynauds and dgital ulcers, on sildenafil, botox injections and amlodipine. answered questions regarding potential tx options, other PDE5 inhibitors or ?Cellcept could be considered, but would defer to her or rn, Dr. Mcdonough who she will be seeing later today. C. Benign-Appearing Nevi, patient reassured - Patient instructed to return to clinic for re-evaluation of area if notes change, growth, bleeding, etc. - Advised to watch for anything new or changing. ? D. Dermatofibroma - Discussed benign nature of lesion and provided reassurance. No treatment necessary at this time. ?? E. Cutaneous Calcinosis - Stable. Follow up: Return to clinic in 1 year for full skin exam (hx scleroderma, FH melanoma), or sooner if needed.Reminder placed in system. Patient instructed to call with questions or concerns. I am documenting this encounter acting as the scribe for and in the presence of Dr. Ordaz: Gwendolyn Gonzales, [facility] and Susannah Watts, Clinical Scribe I performed the above scribed service and agree with the accuracy of the documentation in this encounter. Jo Ordaz MD [facility], Department of Surgery [facility] documented in this encounter Plan of Treatment Upcoming Encounters Date Type Department Care Team (Late st Contact Info) Description 10/07/2024 11:30 AM EST Office Visit Dermatology at [facility] [address] [place] [address] Jo Ordaz MD [facility] [place] [address] 12/13/2024 11:30 AM EST Appointment [place] [phone] 12/13/2024 1:00 PM EST Office [place] [address] Kiet Pardo MD [facility] [place] [address] documented as of this encounter Visit Diagnoses Diagnosis Dermatofibroma Benign neoplasm of skin, site unspecified SK (seborrheic keratosis) Other seborrheic keratosis Scleroderma Systemic sclerosis Multiple benign nevi Benign neoplasm of skin, site unspecified Calcinosis cutis Degenerative skin disorder documented in this encounter Care Teams Property Adjuster Relationship Specialty Start Date End Date Yaritza Pierre MD [address] [place] [address] PCP - General 03/27/12 11/27/18 documented as of this encounter
--- OUTSIDE RECORDS SUMMARY | 2024-09-14 13:08 | XMS_ITS | Encounter Summary ---
[place] [address] Care Team Providers Care Field Checker Name Role Phone Yaritza Pierre MD Primary Care Provider [phone] Encounter Details Date Type Department Care Team (Latest Contact Info) Description 11/02/2017 10:18 AM EST - 11/02/2017 11:59 PM [facility] Hospital [place] [phone] Oz Magdaleno, RVT Scleroderma Discharge Disposition: Home Social History Tobacco [...] 3 01/10/2018 11/28/2018 fosinopril (MONOPRIL) 20 mg TabletIndications:Scle roderma,CKD (chronic [...] in pm 450 tablet 3 06/13/2017 05/14/2018 esomeprazole (NEXIUM) 40 mg Capsule, Delayed Release(E.C.)Indicatio ns:CKD (chronic kidney disease) stage 3, GFR 30-59 ml/min,Scleroderma,CKD (chronic kidney disease), stage 3 (moderate) Take 1 capsule by mouth daily. 90 capsule 3 04/28/2017 01/10/2018 acetaminophen-codeine (TYLENOL #3) 300-30 mg Tablet Take [...] [facility] [address] [place] [address] Jo Ordaz MD [facility] [place] [address] 12/13/2024 11:30 AM EST Appointment [place] [address] 12/13/2024 1:00 PM EST Office [place] [address] Kiet Pardo MD [facility] [place] [address] documented as of this encounter Procedures Procedure Name Priority Date/Time Associated Diagnosis Comments BRACHIAL FINGER PRESSURES Routine 11/02/2017 10:20 AM EST Scleroderma documented in this encounter Results * UL Seg Pressure, multi levels (11/02/2017 10:20 AM EST) VB Text Report Department: Vascular Surgery Lab Patient: [id number] (AMBER DAWSON) CPT: 10477 ICD10: M34.9 Referring Physician: ANDRE MARROQUIN ?? Phone: Indications: ??scleroderma, Raynaud's, s/p bilateral ulnar artery transfer, ? pressures ICD10 Diagnosis Code: M34.9 Findings: Right ?(mmHg) ??Waveform ?DBI ?? Brachial Artery ??122 ? Radial Artery ?Triphasic ? Thumb ?107 ?0.88 ?? Digit 2 ?130 ?1.07 ?? Digit 3 ?90 ? 0.74 ?? Digit 4 ?114 ?0.93 ?? Digit 5 ?126 ?1.03 ?? Left ? (mmHg) ??Waveform ?DBI ?? Brachial Artery ??122 ? Radial Artery ?Triphasic ? Thumb ?108 ?0.89 ?? Digit 2 ?143 ?1.17 ?? Digit 3 ?128 ?1.05 ?? Digit 4 ?104 ?0.85 ?? Digit 5 ?104 ?0.85 ?? Interpretation: RIGHT: No significant upper extremity arterial occlusive disease identified at rest. LEFT: No significant upper extremity arterial occlusive disease identified at rest. Comparison: ??No previous study in our vascular lab database for comparison. Electronically Signed by: LINDY GARRETT on 2017-11-02 02:40:43 PM [facility] VB Text Report End of Report [facility] 11/02/2017 10:2 0 AM EST Andre Marroquin MD VASCULAR ORDERABLES [facility] documented in this encounter Visit Diagnoses Diagnosis Scleroderma Systemic sclerosis documented in this encounter Care Teams Field Checker Relationship Specialty Start Date End Date Yaritza Pierre MD [address] [place] [address] PCP - General 03/27/12 11/27/18 documented as of this encounter
--- OUTSIDE RECORDS SUMMARY | 2024-09-14 13:08 | XMS_ITS | Encounter Summary ---
Author Organization [facility] [place] [address] Care Team Providers Care Foundation Drill Operator Helper Name Role Phone Yaritza Pierre MD Primary Care Provider [phone] Encounter Details Date Type Department Care Team (Late st Contact Info) Description 11/15/2018 Abstract [place] [address] Kristin Capellan Social History Tobacco Use Types Packs/Day Years [...] AM EST Office Visit Dermatology at [address] [place] [address] Jo Ordaz MD [facility] [place] [address] 12/13/2024 11:30 AM EST Appointment [place] [address] 12/13/2024 1:00 PM EST Office [place] [address] Kiet Pardo MD [facility] [place] [address] documented as of this encounter Visit Diagnoses Not on filedocumented in this encounter Care Teams Foundation Drill Operator Helper Relationship Specialty Start Date End Date Yaritza Pierre MD [address] [place] [address] PCP - General 03/27/12 11/27/18 documented as of this encounter
--- OUTSIDE RECORDS SUMMARY | 2024-09-14 13:08 | XMS_ITS | Encounter Summary ---
Author Organization [facility] [place] [address] Care Team Providers Care Waxer Name Role Phone Yaritza Pierre MD Primary Care Provider [phone] Encounter Details Date Type Department Care Team (Latest Contact Info) Description 03/15/2018 10:00 AM EDT Laboratory Appointment Lab [address] [place] [phone] CKD (chronic kidney disease) stage 4, GFR [...] Dermatology at [facility] [address] [place] [address] Jo Ordaz MD [facility] [address] 12/13/2024 11:30 AM EST Appointment [place] [address] 12/13/2024 1:00 PM EST Office [place] [address] Kiet Pardo MD [facility] [place] [address] documented as of this encounter Procedures Procedure Name Priority Date/Time Associated Diagnosis Comments PTH Routine 03/15/2018 10:27 AM EDT CKD (chronic kidney disease) stage 4, GFR 15-29 ml/min HEMOGRAM Routine 03/15/2018 10:27 AM EDT CKD (chronic kidney disease) stage 4, GFR 15-29 ml/min DIFFERENTIAL, AUTOMATED Routine 03/15/2018 10:27 AM EDT CKD (chronic kidney disease) stage 4, GFR 15-29 ml/min U ALBUMIN/CRE RATIO Routine 03/15/2018 1 0:27 AM EDT CKD (chronic kidney disease) stage 4, GFR 15-29 ml/min CBC (WITH DIFF) Routine 03/15/2018 10:27 AM EDT CKD (chronic kidney disease) stage 4, GFR 15-29 ml/min PHOSPHORUS Routine 03/15/2018 10:27 AM EDT CKD (chronic kidney disease) stage 4, GFR 15-29 ml/min ALBUMIN LEVEL Routine 03/15/2018 10:27 AM EDT CKD (chronic kidney disease) stage 4, GFR 15-29 ml/min BASIC METABOLIC PANEL Routine 03/15/2018 10:27 AM EDT CKD (chronic kidney disease) stage 4, GFR 15-29 ml/min documented in this encounter Results * Differential, Automated (03/15/2018 10:27 AM EDT) Neutrophil % 69.2 % [facility] Neutrophil Absolute 4.35 1.70 - 6.10 x10(3)/[facility] Lymph % 20.7 % [facility] Lymphocytes Abs 1.3 0.9 - 3.2 x10(3)/[facility] Monocyte % 7.0 % [facility] Monocyte Abs 0.4 0.3 - 0.9 x10(3)/[facility] Eos % 1.9 % [facility] Eosinophils Abs 0.1 0.0 - 0.4 x10(3)/[facility] Basophil % 0.6 % [facility] Baso Absolute 0.0 0.0 - 0.1 x10(3)/[facility] Immature Gran % 0.60 % [facility] Comment: Immature granulocytes(IG's)percentage and absolute count will include metamyelocytes, myelocytes, and promyelocytes. Blood smears from CBCs yielding IG's will be scanned manually for concordance. If this scan disagrees with the automated IG or if promyelocytes are noted, a manual differential will be performed. Immature Gran Absolute 0.04 0.00 - 0.04 x10(3)/[facility] Blood specimen (specimen) 03/15/2018 10:27 AM EDT 03/15/2018 10:42 AM EDT Narrative Resulting Agency Comment Spec In Lab Sumit Sawyer MD HEMATOLOGY ORDERABL ES [facility] [place] [address] * (ABNORMAL) Hemogram (03/15/2018 10:27 AM EDT) [facility] White Blood Cell 6.3 4.0 - 9.5 x10(3)/ L [facility] Red Blood Cell 4.61 4.00 - 5.21 x10(6)/[facility] Hemoglobin 14.6 11.7 - 15.5 gm/dL [facility] Hematocrit 44.5 35.7 - 45.8 % [facility] Mean Cell Volume 96.5(H) 82.6 - 94.4 fL [facility] Mean Cell Hemoglobin 31.7 27.1 - 32.0 pg [facility] Mean Cell Hemoglobin Concentration 32.8 31.7 - 35.0 gm/dL [facility] Platelet 318 145 - 357 x10(3)/mc L [facility] RDW Standard Deviation 46.3(H) 37.0 - 46.0 fL [facility] RDW coefficient of variation 13.1 11.5 - 14.1 % [facility] Mean Platelet Volume 10.7 7.6 - 12.9 fL [facility] NRBC% auto 0.0 % [facility] NRBC Absolute 0.000 0.000 - 0.000 x10(3)/mc L [facility] Blood specimen (specimen) 03/15/2018 10:27 AM EDT 03/15/2018 10:42 AM EDT Narrative Resulting Agency Comment Spec In Lab Sumit Sawyer MD HEMATOLOGY ORDERABL ES Performing Organization Address City/State/[facility] Co de Phone Number [facility] [place] [place] [address] * (ABNORMAL) U Albumin/Cre Ratio (03/15/2018 10:27 AM EDT) Albumin / Creatinin Ratio, Urine 84(H) 0 - 29 mcg/mg Cr [facility] Comment: Reference Ranges: <30 mcg/mg: Normal [...] Supplements (2012) 2, 357? 362 Albumin, Urine 58.8 mg/L [facility] Creatinine, Urine 70 mg/dL [facility] Urine specimen (specimen) 03/15/2018 10:27 AM EDT 03/15/2018 10:51 AM EDT Narrative Resulting Agency Comment Spec In Lab Sumit Sawyer MD URINE ORDERABLES Performing Organization Address City/[facility]/ZIP Co de Phone Number [facility] [place] [address] * PTH (03/15/2018 10:27 AM EDT) Parathyroid Hormone 59 15 - 65 pg/mL [facility] Blood specimen (specimen) 03/15/2018 10:27 AM EDT 03/15/2018 10:42 AM EDT Narrative Resulting Agency Comment Spec In Lab Sumit Sawyer MD CHEMISTRY ORDERABLE S Performing Organization Address [facility] Co de Phone Number [facility] [place] [address] * Albumin Level (03/15/2018 10:27 AM EDT) Albumin 4.6 3.2 - 5.2 gm/dL [facility] Blood specimen (specimen) 03/15/2018 10:27 AM EDT 03/15/2018 10:42 AM EDT Narrative Resulting Agency Comment Spec In Lab Sumit Sawyer MD CHEMISTRY ORDERABLE S Performing Organization Address [facility] Co de Phone Number [facility] [place] [address] * Phosphorus (03/15/2018 10:27 AM EDT) Phosphorus 3.1 2.5 - 4.5 mg/dL [facility] Blood specimen (specimen) 03/15/2018 10:27 AM EDT 03/15/2018 10:42 AM EDT Narrative Resulting Agency Comment Spec In Lab Sumit Sawyer MD CHEMISTRY ORDERABLE S [facility] [place] [address] * (ABNORMAL) Basic Metabolic Panel (non-fasting) (03/15/2018 10:27 AM EDT) Glucose 86 65 - 199 mg/dL [facility] Comment:Diabetes: >=200 mg/d L plus symptoms Blood Urea Nitrogen 29(H) 8 - 18 mg/dL [facility] Creatinine 1.17 0.70 - 1.20 mg/dL [facility] Sodium 137 135 - 145 mmol/L [facility] Potassium 4.8 3.5 - 5.0 mmol/L [facility] Comment: Please note: ??Patients with WBC >100,000 may have falsely elevated Potassium levels. ??For accurate Potassium quantification in these patients send serum separator tube (gold top) for subsequent determinations. ??Contact the Clinical Chemistry Laboratory if there are any questions. Chloride 101 98 - 107 mmol/L [facility] Carbon Dioxide 24 22 - 31 mmol/L [facility] Anion Gap 12 5 - 15 mmol/L [facility] Calcium 9.3 8.5 - 10.5 mg/dL [facility] Est Glomerular Filtration Rate 48(L) >=60 [facility] Comment: The reported eGFR should be multiplied by 1.2 for patients. The MDRD is not an appropriate measure of renal function for patients with body mass extremes or in patients with acute kidney failure. http://[employer]/DHnkdep http://[employer]/DHMCnkf Blood specimen (specimen) 03/15/2018 10:27 AM EDT 03/15/2018 10:42 AM EDT Narrative Resulting Agency Comment Spec In Lab Sumit Sawyer MD CHEMISTRY ORDERABLE S [facility] [place] [address] documented in this encounter Visit Diagnoses Diagnosis CKD (chronic kidney disease) stage 4, GFR 15-29 ml/min Chronic kidney disease, Stage IV (severe) documented in this encounter Care Teams Waxer Relationship Specialty Start Date End Date Yaritza Pierre MD [address] [place] [address] PCP - General 03/27/12 11/27/18 documented as of this encounter
--- OUTSIDE RECORDS SUMMARY | 2024-09-14 13:08 | XMS_ITS | Encounter Summary ---
Author Organization [facility] Address [facility] [place] [address] Care Team Providers Care Front Office Spec Name Role Phone Yaritza Pierre MD Primary Care Provider [phone] Encounter Details Date Type Department Care Team (Late st Contact Info) Description 10/06/2017 1:00 PM EST Office [place] [address] James Champagne MD [facility] [place] [address] Desmoid fibromatosis Social History Tobacco Use Types [...] as of this encounter Progress Notes * James Champagne MD - 10/06/2017 1:00 PM EST Images from the original note were not included. 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 - Incisional biopsy on 04/17/14 - spindle cell tumor. 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 - Re-excision on 05/27/14 that included the biopsy cavity with seroma, fascia and skeletal muscle (deep margin) and 2cm superior and inferior. Pathology showed inflamed granulation tissue with a possible focus of residual desmoid tumor (+Bcatenin) within 0.1 cm of caudal margin. Postop seroma Amber is here for 12 mth follow up. She is now 3 years out from her multiple resections. She reports that her back continues to feel much better. She reports only some discomfort after walking long periods of time. This is similar to her symptoms a year ago. This is not better or worse. She hasnot noticed any growth. No lumps or bumps in her back. Patient has had hand surgery and is slowly showing improvement. Patient does have a small concern about a small nodule on her left arm below her elbow. Ms. Moralesnis unsure how long this has been present. She reports no associated pain, itching or drainage. PMH: scleroderma, HTN, Scleroderma hypertensive crisis with renal failure and HD for 3 mths in 2009, chronic kidney disease stage III (baseline Cr 1.3), Raynaud's, GERD, Partner with HCV , desmoid tumor on back PSH: excisions of desmoid as described above, D&C, dialysis port. MEDICATIONS: Current Outpatient Prescriptions on File Prior to Visit Medication Sig Dispense Refill ??? tadalafil 20 mg Tablet Take 1 tablet by [...] by mouth daily. 180 tablet 3 ??? fosinopril (MONOPRIL) 20 mg Tablet Take 1 tablet by mouth daily. 90 tablet 3 ??? acetaminophen (TYLENOL) 500 mg [...] inches onto the skin every 6 hours. Current Facility-Administered Medications on File Prior to Visit Medication Dose Route Frequency Provider Last Rate Last Dose ??? [COMPLETED] gadobutrol (GADAVIST) 1 mMol/mL injection 0-20 mL 0-20 mL Intravenous Once PRN Debbie Briones MD 6 mL at 10/06/17 1202 DRUG ALLERGIES: Allergies as of 07/25/2014 ??? (No Known Allergies) SOCIAL HISTORY: Pt lives with her partner, Mike. No children. 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 She is active and enjoys biking, swimming and kayaking. Smoking: Denies. Second hand smoker from Mike ETOH: 1 glass wine/wk FAMILY HISTORY: sister with melanoma PHYSICAL EXAMINATION: Constitutional: This is a thin female in no apparent distress LMP 11/27/2014 Eyes: anicteric, extra ocular movements are intact Neuro: No focal deficits. Hearing and speech intact Psych: the patient is alert and oriented. Normal affect. Soft tissue exam: Upper left back well healed incision, no nodules or masses, skin is flat and softer. No tenderness. Skin: warm, thick and shiny, non-icteric. Fingers are white with taught skin. Left Arm: 4 cm distal to the elbow, firm multi-lobulated subcutaneous lesion measuring 3 cm x 2 cm.Mobile. MRI done today 10/06/2017 On my review, there is no new nodules or enhancement in area of previous excision of desmoid. Impression: Amber Wells is a 54 y.o. 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 On exam today there is no evidence of mass or recurrence. MRI shows a continued decrease in stable enhancement in the area of previous resection on my review. Official read by radiology pending. She does have discomfort after exercise which is likely due to scar tissue in that area which is exaccerbated by her scleroderma. Unfortunately she is having vascular issues in her hands which she is undergoing surgical treatment. In regards to her desmoid, i believe she still has no evidence of recurrence and we will continue to watch yearly. Plan: 1) Repeat MRI w/wo contrast to evaluate desmoid of back in 12 months 2) Return to clinic in 12 months or sooner is symptoms arise SCRIBE ATTESTATION Kristin Capellan has performed the documentation for this encounter in the presence of and acting as a scribe for JAMES CHAMPAGNE MD. I performed the above scribed service and agree with the accuracy of the documentation in this encounter. James Champagne MD Surgical Oncology documented in this encounter Plan of Treatment Upcoming Encounters Date Type Department Care Team (Late st Contact Info) Description 10/07/2024 11:30 AM EST Office Visit Dermatology at [place] [address] [place] [address] Jo Ordaz MD [facility] [place] [address] 12/13/2024 11:30 AM EST Appointment [place] [address] 12/13/2024 1:00 PM EST Office [place] [address] Kiet Pardo MD [facility] [place] [address] documented as of this encounter Visit Diagnoses Diagnosis Desmoid fibromatosis Other benign neoplasm of connective and other soft tissue of unspecified site documented in this encounter Care Teams Front Office Spec Relationship Specialty Start Date End Date Yaritza Pierre MD [address] [place] [address] PCP - General 03/27/12 11/27/18 documented as of this encounter
--- OUTSIDE RECORDS SUMMARY | 2024-09-14 13:08 | XMS_ITS | Encounter Summary ---
[place] [address] Care Team Providers Care Clearance Cutter Name Role Phone Yaritza Pierre MD Primary Care Provider [phone] Reason for Visit * Reason Onset Date Comments Other 02/28/2018 Encounter Details Date Type Department Care Team (Late st Contact Info) Description 02/28/2018 Telephone [place] [phone] Antoine Jung, RN Other Social History Tobacco [...] Telephone Encounter - Antoine Jung RN - 02/28/2018 12:19 PM EDT Pharmacy updated, ok to take both. * Telephone Encounter - Antoine Jung RN - 02/28/2018 11:02 AM EDT On sildenafil, on nitro bid. Pharmacy calls to confirm ok to take. documented in this encounter Plan of Treatment Upcoming Encounters Date Type Department Care Team (Late st Contact Info) Description 10/07/2024 11:30 AM EST Office Visit Dermatology at [facility] [address] [place] [address] [facility] [place] [address] 12/13/2024 11:30 AM EST Appointment [place] [address] 12/13/2024 1:00 PM EST Office [place] [address] [facility] [place] [address] documented as of this encounter Visit Diagnoses Not on filedocumented in this encounter Care Teams Clearance Cutter Relationship Specialty Start Date End Date Yaritza Pierre MD [address] [place] [address] PCP - General 03/27/12 11/27/18 documented as of this encounter
--- OUTSIDE RECORDS SUMMARY | 2024-09-14 13:08 | XMS_ITS | Encounter Summary ---
[place] [address] Care Team Providers Care Instructor Physical Education Name Role Phone Yaritza Pierre MD Primary Care Provider [phone] Reason for Visit * Reason Onset Date Comments Prior Authorization 10/30/2017 Encounter Details Date Type Department Care Team (Late st Contact Info) Description 10/30/2017 [place] [address] Jodi Pressley Prior Authorization Social [...] * Telephone Encounter - Jodi Pressley - 10/30/2017 10:58 AM EST Medication Prior Authorization RASHIDA ?? Medication name/dose/directions: SILDENAFIL 20MG - 3X DAILY ?? Rationale for request: RAYNAUD'S ?? Health plan: [employer] (FAX) ?? Authorizing tax representative name: FERMIN ?? Faxed to health plan on: 10/30/17 ?? Health plan decision: APPROVED ?? Quantity approved: ?? Authorization number: [id number] ?? Start date:10/31/17 End date: 10/30/18 documented in this encounter Plan of Treatment Upcoming Encounters Date Type Department Care Team (Late st Contact Info) Description 10/07/2024 11:30 AM EST Office Visit Dermatology at [facility] [address] [place] [address] Jo Ordaz MD [facility] [place] [address] 12/13/2024 11:30 AM EST Appointment [place] [phone] 12/13/2024 1:00 PM EST Office [place] [address] Kiet Pardo MD [facility] [place] [address] documented as of this encounter Visit Diagnoses Not on filedocumented in this encounter Care Teams Instructor Physical Education Relationship Specialty Start Date End Date Yaritza Pierre MD [address] [place] [address] PCP - General 03/27/12 11/27/18 documented as of this encounter
--- OUTSIDE RECORDS SUMMARY | 2024-09-14 13:08 | XMS_ITS | Encounter Summary ---
Author Organization [facility] Address [facility] [place] [address] Care Team Providers Care Automotive Electrician Name Role Phone Yaritza Pierre MD Primary Care Provider Reason for Visit * Reason Onset Date Comments Medication Refill 10/27/2017 Encounter Details Date Type Department Care Team (Late st Contact Info) Description 10/27/2017 Refill Nephrology [place] [address] Osman Orellana MD [facility] [place] [address] Scleroderma; CKD (chronic kidney disease) stage 3, [...] 11:30 AM EST Office Visit Dermatology at [facility] [address] [place] [address] Jo Ordaz MD [facility] [place] [address] 12/13/2024 11:30 AM EST Appointment [place] [address] 12/13/2024 1:00 PM EST Office [place] [address] Kiet Pardo MD [facility] [place] [address] documented as of this encounter Visit Diagnoses Diagnosis Scleroderma Systemic sclerosis CKD (chronic kidney disease) stage 3, GFR 30-59 ml/min Chronic kidney disease, Stage III (moderate) documented in this encounter Care Teams Automotive Electrician Relationship Specialty Start Date End Date Yaritza Pierre MD [address] [place] [address] PCP - General 03/27/12 11/27/18 documented as of this encounter
--- OUTSIDE RECORDS SUMMARY | 2024-09-14 13:08 | XMS_ITS | Encounter Summary ---
[place] [address] Care Team Providers Care Field Reviewer Name Role Phone Yaritza Pierre MD Primary Care Provider [phone] Reason for Visit * Reason Onset Date Comments Questions 02/21/2018 Encounter Details Date Type Department Care Team (Late st Contact Info) Description 02/21/2018 [place] [phone] Antoine Jung, RN Questions Social History Tobacco [...] Telephone Encounter - Antoine Jung RN - 02/21/2018 12:46 PM EDT Richi calls clinic, leaves message stating patient on sildenafil, recently started on nitrobid pasteand wants to update clinic regarding medication being started. documented in this encounter Plan of Treatment Upcoming Encounters Date Type Department Care Team (Late st Contact Info) Description 10/07/2024 11:30 AM EST Office Visit Dermatology at [facility] [address] [place] [address] Jo Ordaz MD [facility] [place] [address] 12/13/2024 11:30 AM EST [place]ointment [place] [phone] 12/13/2024 1:00 PM EST Office [place] [phone] Kiet Pardo MD [facility] [address] documented as of this encounter Visit Diagnoses Not on filedocumented in this encounter Care Teams Field Reviewer Relationship Specialty Start Date End Date Yaritza Pierre MD [address] [place] [address] PCP - General 03/27/12 11/27/18 documented as of this encounter
--- OUTSIDE RECORDS SUMMARY | 2024-09-14 13:08 | XMS_ITS | Encounter Summary ---
[place] [address] Care Team Providers Care Degreaser Name Role Phone Gorge Man MD Primary Care Provider [phone] Encounter Details Date Type Department Care Team (Late st Contact Info) Description 12/03/2018 Telephone [place] [phone] Wendy Albarado RN Social History Tobacco Use Types Packs/Day [...] encounter Miscellaneous Notes * Telephone Encounter - Wendy Albarado RN - 12/03/2018 9:19 AM EST O. Lab results received and entered. Patient [place] returned to [place]. Labs done. Called patient. She is feeling good except for her hands. She has 3 ulcers on her right middle finger; one on pinky on left, one on index on left hand. She is getting botox injections to her hands every 6 months (just received one-takes a few weeks to see any results). Results for AMBER DAWSON ( ) as of 12/03/2018 09:37 Ref. Range 03/15/2018 10:27 11/30/2018 00:00 WBC Unknown 6.3 6.5 (External Lab) RBC Unknown 4.61 4.24 (External Lab) Hemoglobin Unknown 14.6 13.5 (External Lab) Hematocrit Unknown 44.5 42.0 (External Lab) MCV Unknown 96.5 (H) 99.1 (External Lab) MCH Latest Ref Range: 27.1 - 32.0 pg 31.7 MCHC Latest Ref Range: 31.7 - 35.0 gm/dL 32.8 RDWSD Latest Ref Range: 37.0 - 46.0 fL 46.3 (H) RDWCV Latest Ref Range: 11.5 - 14.1 % 13.1 Platelets Unknown 318 323 (External Lab) MPV Latest Ref Range: 7.6 - 12.9 fL 10.7 nRBC % Auto Latest Units: % 0.0 nRBC Abs Auto Latest Ref Range: 0.000 - 0.000 x10(3)/mcL 0.000 Neutr Abs (ANC) Latest Ref Range: 1.70 - 6.10 x10(3)/mcL 4.35 Neutrophils % Latest Units: % 69.2 Immature Gran % Latest Units: % 0.60 Lymphocytes % Latest Units: % 20.7 Monocytes % Latest Units: % 7.0 Eosinophils % Latest Units: % 1.9 Basophils % Latest Units: % 0.6 Yessica Gran Abs Latest Ref Range: 0.00 - 0.04 x10(3)/mcL 0.04 Lymphocytes Abs Latest Ref Range: 0.9 - 3.2 x10(3)/mcL 1.3 Monocyte Abs Latest Ref Range: 0.3 - 0.9 x10(3)/mcL 0.4 Eosinophils Abs Latest Ref Range: 0.0 - 0.4 x10(3)/mcL 0.1 Basophils Abs Latest Ref Range: 0.0 - 0.1 x10(3)/mcL 0.0 Sodium Unknown 137 142 (External Lab) Potassium Unknown 4.8 4.9 (External Lab) Chloride Unknown 101 103 (External Lab) CO2 Unknown 24 27 (External Lab) Anion Gap Latest Ref Range: 5 - 15 mmol/L 12 BUN Unknown 29 (H) 29 (EXTERNAL/ABN) Creatinine Unknown 1.17 1.20 (EXTERNAL/ABN) eGFR Latest Ref Range: >=60 48 (L) Glucose Lvl Unknown 86 94 (External Lab) Calcium Unknown 9.3 9.3 (External Lab) Phosphorus Unknown 3.1 3.9 (External Lab) Albumin Unknown 4.6 4.4 (External Lab) PTH Latest Ref Range: 15 - 65 pg/mL 59 Alb/Cr Ratio, Random Unknown 84 (H) 105.1 (EXTERNAL/ABN) U Albumin Conc, Random Unknown 58.8 106.3 (EXTERNAL/ABN) U Creatinine Unknown 70 101 (External Lab) A. Kidney function stable P. Plan to follow patient in CKD clinic with Dr Sawyer. She requests appt on January 25 or May 29 (she has other appointments at on that day and since she lives 2.5 hours away she wants to coordinate. She will call in a couple of weeks to see if January schedule is out and she can be scheduled. documented in this encounter Plan of Treatment Upcoming Encounters Date Type Department Care Team (Late st Contact Info) Description 10/07/2024 11:30 AM EST Office Visit Dermatology at [address] [phone] Jo Ordaz MD [facility] [place] [address] 12/13/2024 11:30 AM EST Appointment [place] [phone] 12/13/2024 1:00 PM EST Office [place] [phone] Kiet Pardo MD [facility] [place] [address] documented as of this encounter Procedures Procedure Name Priority Date/Time Associated Diagnosis Comments EXTERNAL LAB CBC CMP THYROID RESULTS PANEL Routine 11/30/2018 documented in this encounter Results * (ABNORMAL) CBC / CMP / Thyroid External Results (11/30/2018) White Blood Cell 6.5([facility]) Red Blood Cell 4.24(Exter nal Lab) Hemoglobin 13.5(Exter nal Lab) Hematocrit 42.0(Exter nal Lab) Mean Cell Volume 99.1(Exter nal Lab) Platelet 323([facility]) Sodium 142([facility]) Potassium 4.9([facility]) Chloride 103([facility]) Carbon Dioxide 27(Externa l Lab) Blood Urea Nitrogen 29(EXTERNA L/ABN) Creatinine 1.20(EXTER NAL/ABN) Glucose 94(Externa l Lab) Calcium 9.3([facility]) Phosphorus 3.9([facility]) Albumin 4.4([facility]) Albumin / Creatinin Ratio, Urine 105.1(EXTE RNAL/ABN) Albumin, Urine 106.3(EXTE RNAL/ABN) Creatinine, Urine 101([facility]) Historical Provider EXTERNAL LAB MIAH GUAMAN documented in this encounter Visit Diagnoses Not on filedocumented in this encounter Care Teams Degreaser Relationship Specialty Start Date End Date Gorge Man MD PCP - [facility] 11/28/18 02/18/21 documented as of this encounter
--- OUTSIDE RECORDS SUMMARY | 2024-09-14 13:08 | XMS_ITS | Encounter Summary ---
Author Organization [facility] Address [facility] [place] [address] Care Team Providers Care Injection Mold Technician Name Role Phone Yaritza Pierre MD Primary Care Provider [phone] Reason for Visit * Reason Comments Chronic Kidney Disease Encounter Details Date Type Department Care Team (Latest Contact Info) Description 03/15/2018 10:40 AM EDT Office Visit [place] [address] Sumit Sawyer MD [facility] [place] [address] A, Nurse Clinician None CKD (chronic kidney disease) stage 4, GFR [...] Sign Reading Time Taken Comments Blood Pressure 112/66 03/15/2018 9:56 AM EDT Pulse 72 03/15/2018 9:56 AM EDT Temperature - - Respiratory Rate - - Oxygen Saturation - - Inhaled Oxygen Concentration - - Weight 63.4 kg (139 lb 12.8 oz) 03/15/2018 9:56 AM EDT Height 170.2 cm (5' 7) 03/15/2018 9:56 AM EDT Body Mass Index 21.9 03/15/2018 9:56 AM EDT documented in this encounter Patient Instructions * Patient Instructions* Wendy Albarado RN - 03/15/2018 10:40 AM EDT No changes. [place] selling the house. Let us know when you move so we can send info to your new nephrologistin [place]. documented in this encounter Progress Notes * Sumit Sawyer MD - 03/15/2018 10:40 AM EDT [facility] [address] [place] [address] ? Reason for Clinic Visit: Systems Review and CKD management. 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 History of Present Illness: . History obtained by RN Specialist: She was last seen by Dr Orellana in his August 2017 clinic. ?the surgery to implant the artery inher arms has not made much difference. Her thumb has been infected since September. She was getting botox injections in her hands. She is selling her house and is moving back to her family in [facility] [place]. 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 Last dialysis was in June 2010 at [facility] (dialyzed for 2 months). Education: 3-4 gram sodium diet discusssed, low potassium diet discussed Anticipated Renal Replacement Therapy Plan: Was on HD through tunnelled catheter from April 27 to July 14, 2010 at [facility] for the last 3 weeks of dialysis. Transplant Evaluation: will trend Creatinine levels to determine if this is necessary ? Review of Systems: Sign/Symptom Comments Activity level/fatigue: Yes energy is great, very stiff in the AM slow to get up and get moving butthen better. . Change in sleep patterns: No problem Nocturia: 1x to urinate Appetite changes: great Food aversions: No Nausea: None Vomiting: None Bowels: Bowel issues with constipation. slower Edema: None Shortness of breath: None; Orthopnea/PND: No PND; 1 pillow Muscle Cramping: No Cold intolerance: Yes; plus the issues with the Raynaud's in her fingers. Itching: No Bruising/bleeding: None; Mental Status Changes: No problem Recent Home Blood Pressure Control: Low BP 120/80 Recent Lipid Management: None Additional CCM Comments: She has started having hot flashes with menopause (periods are done) How's your health been in the last 4 weeks : Poor Fair Good Very Good Excellent ? She has dual citizenship in [place] and [place] She is seeing captain fire prevention bureau at [facility] for the scleroderma management. She is seeing GI for the bowel issues She is having trouble with some ADL's secondary to hand stiffness from scleraderma ? Hepatitis B Status: Serum Testing Date of Testing Results Hep B sAb/Hep B sAg not tested Vaccination Status: Unknown ?? Fistula Date/Type of Initial Access/Surgeon: Had tunnelled dialysis catheter removed at [facility] in June 2010. No plans for fistula at this time. Kidney function has been stable and slowly improving ? Advanced Directives: On file in eDH. PMH: Patient Active Problem List Diagnosis Code [...] M79.89 ??? Raynaud's disease without gangrene I73.00 Allergies Allergen Reactions ??? Other [Unclassified Drug] Lobster--weird sensation Outpatient Prescriptions Marked as Taking for the 03/15/18 encounter (Office Visit) with Sumit Sawyer MD Medication Sig Dispense Refill ??? acetaminophen-codeine (TYLENOL [...] skin every 6 hours. Physical Exam: BP 112/66 Pulse 72 Ht 170.2 cm (5' 7) Wt 63.4 kg (139 lb 12.8 oz) LMP 11/27/2014 BMI 21.9 kg/m2 Labs Results for AMBER WELLS ( ) as of 03/16/2018 08:53 08/22/2017 13:45 10/06/2017 10:13 03/15/2018 10:27 WBC 9.3 6.3 RBC 4.19 4.61 Hemoglobin 13.3 14.6 Hematocrit 39.8 44.5 MCV 95.0 (H) 96.5 (H) MCH 31.7 31.7 MCHC 33.4 32.8 RDWSD 48.1 (H) 46.3 (H) RDWCV 13.9 13.1 Platelets 293 318 MPV 10.8 10.7 nRBC % Auto 0.0 0.0 nRBC Abs Auto 0.000 0.000 Neutr Abs (ANC) 6.73 (H) 4.35 Neutrophils % 72.4 69.2 Immature Gran % 0.30 0.60 Lymphocytes % 19.1 20.7 Monocytes % 6.2 7.0 Eosinophils % 1.5 1.9 Basophils % 0.5 0.6 Yessica Gran Abs 0.03 0.04 Lymphocytes Abs 1.8 1.3 Monocyte Abs 0.6 0.4 Eosinophils Abs 0.1 0.1 Basophils Abs 0.0 0.0 Sodium 142 137 Potassium 4.9 4.8 Chloride 102 101 CO2 24 24 Anion Gap 16 (H) 12 BUN 20 (H) 29 (H) Creatinine 1.29 (H) 1.18 1.17 Estimated GFR 43 (L) 47 (L) 48 (L) Glucose Lvl 90 86 Calcium 9.4 9.3 Phosphorus 3.4 3.1 Albumin 4.8 4.6 25-OH Vit D Total 37 PTH 77 (H) 59 Alb/Cr Ratio, Random 87 (H) 84 (H) U Albumin Conc, Random 28.6 58.8 U Creatinine 33 70 Problem/Goal/Assessment/Plan: Problem: Chronic Kidney Disease Goal: Reduce rate of progression Education for CKD Stage specific issues Results: Estimated GFR (MDRD): 48 ml/min/1.73m2 CKD Stage G3a A2 Potassium Level - 4.8 CO2 level - 24 Changes discussed with RN Specialist: Kidney function is stable. No need to restrict nutrients in your food choices. Problem: Management of Anemia related to Chronic Kidney Disease (CKD) Goal: Hgb 9.5-10.9 g/dl Today's Results Hgb - 14.6 Receiving erythropoetic stimulating agent? No Last IV Iron replacement therapy (Venofer), Date : None Changes discussed with RN Specialist: None Problem: Hypertension Goal: Urine alb:cr ratio <30mg/g - 140/90, Urine alb:cr ratio > 30mg/g - 130/80 Sodium intake < 2 Gm per day. Results: BP today - 112/66 Changes discussed with RN Specialist: None Problem: Proteinuria Goal: Alb:Cr ratio < 30mg/g Today's results: Alb:Cr ratio 84 Changes discussed with RN Specialist: Patient takes fosinopril Problem: Bone Disease Goal: Stage 3 PTH: 35-70 pg/ml Phos 2.7-4.6 Ca 8.5-10.5mg/dl Stage 4 PTH: 70-110 pg/ml Phos 2.7-4.6 Ca 8.5-10.5mg/dl Stage 5 PTH: 150-300 pg/ml Phos 3.5-5.5 Ca 8.5-10.5mg/dl Results: PTH today -59 (pt not taking calcitriol) Phos today -3.1 (pt not taking binders) Calcium today - 9.3 Changes discussed with RN Specialist: None Problem: Nutrition Goal: Albumin > 4.0gm/dl BMI 20-25 kg/m2 Results: Albumin today - 4.6 Changes discussed with RN Specialist: Problem: Patient does not have Diabetes Goal: HA1C ~ 7.0% Results: Random Glucose - 86 Changes discussed with RN Specialist: None Problem: Dyslipidemia Goal: LDL < 100 mg/dl Results: LDL not checked today - Changes discussed with RN Specialist: None Assessment and plan: The patient's done well in terms of her renal disease. It is quite stable at the present time and I would recommend continuing the PERRY inhibitor indefinitely. She is considering moving back to [place]. 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 I will asked vascular surgery if there are currently any studies or study drugs available that might help with the microcirculation. Otherwise I will plan on seeing her back in follow-up in 1 year. Return to CKD clinic: one year * Sumit Sawyer MD - 03/15/2018 10:40 AM EDT Patient is seen in follow-up for her scleroderma renal crisis. She has had stable renal function for a number of years and continues on her PERRY inhibitor. Her major issue recently has been continued finger ischemia despite bilateral bypasses by plastic surgery. Physical exam:BP 112/66 Pulse 72 Ht 170.2 cm (5' 7) Wt 63.4 kg (139 lb 12.8 oz) LMP 11/27/2014 BMI 21.9 kg/m2 Pleasant woman with obvious scleroderma, lungs clear, cardiac exam normal, abdomen scaphoid, extremities with a relatively normal lower extremities distal to the knees but severe scleroderma changes in the upper extremities distal to the elbows with an ulceration on her right thumb. Recent Results (from the past 24 hour(s)) Basic Metabolic Panel (non-fasting) Result Value Ref Range Glucose Lvl 86 65 - 199 mg/dL BUN 29 (H) 8 - 18 mg/dL Creatinine 1.17 0.70 - 1.20 mg/dL Sodium 137 135 - 145 mmol/L Potassium 4.8 3.5 - 5.0 mmol/L Chloride 101 98 - 107 mmol/L CO2 24 22 - 31 mmol/L Anion Gap 12 5 - 15 mmol/L Calcium 9.3 8.5 - 10.5 mg/dL Estimated GFR 48 (L) >=60 Phosphorus Result Value Ref Range Phosphorus 3.1 2.5 - 4.5 mg/dL Albumin Level Result Value Ref Range Albumin 4.6 3.2 - 5.2 gm/dL Hemogram Result Value Ref Range WBC 6.3 4.0 - 9.5 x10(3)/mcL RBC 4.61 4.00 - 5.21 x10(6)/mcL Hemoglobin 14.6 11.7 - 15.5 gm/dL Hematocrit 44.5 35.7 - 45.8 % MCV 96.5 (H) 82.6 - 94.4 fL MCH 31.7 27.1 - 32.0 pg MCHC 32.8 31.7 - 35.0 gm/dL Platelets 318 145 - 357 x10(3)/mcL RDWSD 46.3 (H) 37.0 - 46.0 fL RDWCV 13.1 11.5 - 14.1 % MPV 10.7 7.6 - 12.9 fL nRBC % Auto 0.0 % nRBC Abs Auto 0.000 0.000 - 0.000 x10(3)/mcL Differential, Automated Result Value Ref Range Neutrophils % 69.2 % Neutr Abs (ANC) 4.35 1.70 - 6.10 x10(3)/mcL Lymphocytes % 20.7 % Lymphocytes Abs 1.3 0.9 - 3.2 x10(3)/mcL Monocytes % 7.0 % Monocyte Abs 0.4 0.3 - 0.9 x10(3)/mcL Eosinophils % 1.9 % Eosinophils Abs 0.1 0.0 - 0.4 x10(3)/mcL Basophils % 0.6 % Basophils Abs 0.0 0.0 - 0.1 x10(3)/mcL Immature Gran % 0.60 % Yessica Gran Abs 0.04 0.00 - 0.04 x10(3)/mcL documented in this encounter Plan of Treatment Upcoming Encounters Date Type Department Care Team (Late st Contact Info) Description 10/07/2024 11:30 AM EST Office Visit Dermatology at [address] [phone] Jo Ordaz MD [facility] DERMATOLOGY [place], [place] [phone] 12/13/2024 11:30 AM EST Appointment [place] [phone] 12/13/2024 1:00 PM EST Office [place] [phone] Kiet Pardo MD [facility] [place] [address] documented as of this encounter Results * (ABNORMAL) U Albumin/Cre Ratio (03/15/2018 10:27 AM EDT) Albumin / Creatinin Ratio, Urine 84(H) 0 - 29 mcg/mg Cr [facility] Comment: Reference Ranges: [...] 2, 357? 362 Albumin, Urine 58.8 mg/L [facility] Creatinine, Urine 70 mg/dL [facility] Urine specimen (specimen) 03/15/2018 10:27 AM EDT 03/15/2018 10:51 AM EDT Narrative Resulting Agency Comment Spec In Lab Sumit Sawyer MD URINE ORDERABLES Performing Organization Address City/[facility]/ZIP Co de Phone Number [facility] [place] [address] * PTH (03/15/2018 10:27 AM EDT) Parathyroid Hormone 59 15 - 65 pg/mL [facility] Blood specimen (specimen) 03/15/2018 10:27 AM EDT 03/15/2018 10:42 AM EDT Narrative Resulting Agency Comment Spec In Lab Sumit Sawyer MD CHEMISTRY ORDERABLE S [facility] [place] [address] * Albumin Level (03/15/2018 10:27 AM EDT) Albumin 4.6 3.2 - 5.2 gm/dL [facility] Blood specimen (specimen) 03/15/2018 10:27 AM EDT 03/15/2018 10:42 AM EDT Narrative Resulting Agency Comment Spec In Lab Sumit Sawyer MD CHEMISTRY ORDERABLE S Performing Organization Address City/[facility]/ZIP Co de Phone Number [facility] [place] [address] * Phosphorus (03/15/2018 10:27 AM EDT) Phosphorus 3.1 2.5 - 4.5 mg/dL [facility] Blood specimen (specimen) 03/15/2018 10:27 AM EDT 03/15/2018 10:42 AM EDT Narrative Resulting Agency Comment Spec In Lab Sumit Sawyer MD CHEMISTRY ORDERABLE S Performing Organization Address [facility] Co de Phone Number [facility] [place] [address] * (ABNORMAL) Basic Metabolic Panel (non-fasting) (03/15/2018 10:27 AM EDT) Glucose 86 65 - 199 mg/dL [facility] Comment:Diabetes: >=200 mg/d L plus symptoms Blood Urea Nitrogen 29(H) 8 - 18 mg/dL [facility] Creatinine 1.17 0.70 - 1.20 mg/dL [facility] Sodium 137 135 - 145 mmol/L [facility] Potassium 4.8 3.5 - 5.0 mmol/L [facility] Comment: Please note: ??Patients with WBC >100,000 may have falsely elevated Potassium levels. ??For accurate Potassium quantification in these patients send serum separator tube (gold top) for subsequent determinations. ??Contact the Clinical Chemistry Laboratory if there are any questions. Chloride 101 98 - 107 mmol/L [facility] Carbon Dioxide 24 22 - 31 mmol/L [facility] Anion Gap 12 5 - 15 mmol/L [facility] Calcium 9.3 8.5 - 10.5 mg/dL [facility] Est Glomerular Filtration Rate 48(L) >=60 [facility] Comment: The reported eGFR should be multiplied by 1.2 for patients. The MDRD is not an appropriate measure of renal function for patients with body mass extremes or in patients with acute kidney failure. http://Swarm/DHnkdep http://Swarm/DHMCnkf Blood specimen (specimen) 03/15/2018 10:27 AM EDT 03/15/2018 10:42 AM EDT Narrative Resulting Agency Comment Spec In Lab Sumit Sawyer MD CHEMISTRY ORDERABLE S [facility] [place] [address] documented in this encounter Visit Diagnoses Diagnosis CKD (chronic kidney disease) stage 4, GFR 15-29 ml/min Chronic kidney disease, Stage IV (severe) documented in this encounter Care Teams Injection Mold Technician Relationship Specialty Start Date End Date Yaritza Pierre MD [address] [place] [id number] PCP - General 03/27/12 11/27/18 documented as of this encounter
--- OUTSIDE RECORDS SUMMARY | 2024-09-14 13:09 | XMS_ITS | Encounter Summary ---
Author Organization [facility] [place] [address] Care Team Providers Care Jerker Name Role Phone Yaritza Pierre MD Primary Care Provider [phone] Reason for Visit * Reason Onset Date Comments Other 06/15/2017 dose change Dana alla Encounter Details Date Type Department Care Team (Late st Contact Info) Description 06/15/2017 Telephone [place] [phone] Yu Mcdonough, [facility] [place] [address] Other (dose change Revatio) Social History Tobacco Use Types Packs/Day Years [...] encounter Miscellaneous Notes * Telephone Encounter - Carol Wagner CMA - 06/15/2017 11:29 AM EDT Yu @ [facility] [address] mail order pharmacy notified per Dr. Mcdonough of new dose amoont Revatio - Yu voiced understanding * Telephone Encounter - Carol Wagner CMA - 06/15/2017 9:57 AM EDT Yu from [address] mail [facility] calls today and wants to verify dose change Revatio from 20 mg TID to new dose amount 20 mg (40 mg a.m.-20 mg noon-40 mg evening) Advise documented in this encounter Plan of Treatment Upcoming Encounters Date Type Department Care Team (Late st Contact Info) Description 10/07/2024 11:30 AM EST Office Visit Dermatology at [address] [phone] Jo Ordaz MD [facility] [place] [address] 12/13/2024 11:30 AM EST Appointment [place] [phone] 12/13/2024 1:00 PM EST Office [place] [address] Kiet Pardo MD [facility] [place] [address] documented as of this encounter Visit Diagnoses Not on filedocumented in this encounter Care Teams Jerker Relationship Specialty Start Date End Date Yaritza Pierre MD [address] [place] [id number] PCP - General 03/27/12 11/27/18 documented as of this encounter
--- OUTSIDE RECORDS SUMMARY | 2024-09-14 13:09 | XMS_ITS | Encounter Summary ---
Author Organization Formerly [facility] [place] [address] Care Team Providers Care Sewer Line Photo Inspector Name Role Phone Yaritza Pierre MD Primary Care Provider [phone] Encounter Details Date Type Department Care Team (Latest Contact Info) Description 08/04/2016 12:00 PM EDT Laboratory Appointment Lab [address] [place] [phone] CKD (chronic kidney disease) stage 4, GFR [...] at [facility] [address] [place] [address] Jo Ordaz MD [facility] [place] [place] [address] 12/13/2024 11:30 AM EST Appointment [place] [address] 12/13/2024 1:00 PM EST Office [place] [address] Kiet Pardo MD [facility] [place] [address] documented as of this encounter Procedures Procedure Name Priority Date/Time Associated Diagnosis Comments PROTEIN/CREATININE RATIO, URINE Routine 08/04/2016 11:01 AM EDT CKD (chronic kidney disease) stage 4, GFR 15-29 ml/min PTH Routine 08/04/2016 10:52 AM EDT CKD (chronic kidney disease) stage 4, GFR 15-29 ml/min HEMOGRAM Routine 08/04/2016 10:52 AM EDT CKD (chronic kidney disease) stage 4, GFR 15-29 ml/min DIFFERENTIAL, AUTOMATED Routine 08/04/2016 10:52 AM EDT CKD (chronic kidney disease) stage 4, GFR 15-29 ml/min CBC (WITH DIFF) Routine 08/04/2016 10:52 AM EDT CKD (chronic kidney disease) stage 4, GFR 15-29 ml/min PHOSPHORUS Routine 08/04/2016 10:52 AM EDT CKD (chronic kidney disease) stage 4, GFR 15-29 ml/min ALBUMIN LEVEL Routine 08/04/2016 10:52 AM EDT CKD (chronic kidney disease) stage 4, GFR 15-29 ml/min BASIC METABOLIC PANEL Routine 08/04/2016 10:52 AM EDT CKD (chronic kidney disease) stage 4, GFR 15-29 ml/min documented in this encounter Results * Protein/Creatinine Ratio, urine (08/04/2016 11:01 AM EDT) Creatinine, Urine 30 mg/dL [facility] Protein, Urine 8 0 - 12 mg/dL [facility] Protein / Creatinine Ratio, Urine 0.3 ratio [facility] Urine specimen (specimen) 08/04/2016 11:01 AM EDT 08/04/2016 11:16 AM EDT Narrative Resulting Agency Comment Spec In Lab Sumit Sawyer MD URINE ORDERABLES [facility] [place] [address] * Differential, Automated (08/04/2016 10:52 AM EDT) Pathologist [facility] Neutrophil % 64.4 % [facility] Neutrophil Absolute 4.83 1.70 - 6.10 x10(3)/[facility] Lymph % 23.6 % [facility] Lymphocytes Abs 1.8 0.9 - 3.2 x10(3)/[facility] Monocyte % 6.5 % [facility] Monocyte Abs 0.5 0.3 - 0.9 x10(3)/[facility] Eos % 4.3 % [facility] Eosinophils Abs 0.3 0.0 - 0.4 x10(3)/[facility] Basophil % 0.9 % [facility] Baso Absolute 0.1 0.0 - 0.1 x10(3)/[facility] Immature Gran % 0.30 % [facility] Comment: Immature granulocytes(IG's)percentage and absolute count will include metamyelocytes, myelocytes, and promyelocytes. Blood smears from CBCs yielding IG's will be scanned manually for concordance. If this scan disagrees with the automated IG or if promyelocytes are noted, a manual differential will be performed. Immature Gran Absolute 0.02 0.00 - 0.04 x10(3)/[facility] Blood specimen (specimen) 08/04/2016 10:52 AM EDT 08/04/2016 11:06 AM EDT Narrative Resulting Agency Comment Spec In Lab Sumit Sawyer MD HEMATOLOGY ORDERABL ES Performing Organization Address City/[facility] Co de Phone Number [facility] [place] [address] * (ABNORMAL) Hemogram (08/04/2016 10:52 AM EDT) White Blood Cell 7.5 4.0 - 9.5 x10(3)/ L [facility] Red Blood Cell 4.29 4.00 - 5.21 x10(6)/[facility] Hemoglobin 13.6 11.7 - 15.5 gm/dL [facility] Hematocrit 42.3 35.7 - 45.8 % [facility] Mean Cell Volume 98.6(H) 82.6 - 94.4 [facility] Mean Cell Hemoglobin 31.7 27.1 - 32.0 pg [facility] Mean Cell Hemoglobin Concentration 32.2 31.7 - 35.0 gm/dL [facility] Platelet 319 145 - 357 x10(3)/mc L [facility] RDW Standard Deviation 45.1 37.0 - 46.0 [facility] RDW coefficient of variation 12.4 11.5 - 14.1 % [facility] Mean Platelet Volume 10.6 7.6 - 12.9 [facility] NRBC% auto 0.0 % [facility] NRBC Absolute 0.000 0.000 - 0.000 x10(3)/ L [facility] Blood specimen (specimen) 08/04/2016 10:52 AM EDT 08/04/2016 11:06 AM EDT Narrative Resulting Agency Comment Spec In Lab Sumit Sawyer MD HEMATOLOGY ORDERABL ES [facility] [place] [address] * (ABNORMAL) PTH (08/04/2016 10:52 AM EDT) Parathyroid Hormone 101(H) 15 - 65 pg/mL [facility] Blood specimen (specimen) 08/04/2016 10:52 AM EDT 08/04/2016 11:06 AM EDT Narrative Resulting Agency Comment Spec In Lab Sumit Sawyer MD CHEMISTRY ORDERABLE S Performing Organization Address City/[facility]/ZIP Co de Phone Number [facility] [place] [address] * Albumin Level (08/04/2016 10:52 AM EDT) Albumin 4.5 3.2 - 5.2 gm/dL [facility] Blood specimen (specimen) 08/04/2016 10:52 AM EDT 08/04/2016 11:06 AM EDT Narrative Resulting Agency Comment Spec In Lab Sumit Sawyer MD CHEMISTRY ORDERABLE S Performing Organization Address City/[facility]/ZIP Co de Phone Number [facility] [place] [address] * Phosphorus (08/04/2016 10:52 AM EDT) Phosphorus 3.0 2.5 - 4.5 mg/dL [facility] Blood specimen (specimen) 08/04/2016 10:52 AM EDT 08/04/2016 11:06 AM EDT Narrative Resulting Agency Comment Spec In Lab Sumit Sawyer MD CHEMISTRY ORDERABLE S [facility] [place] [address] * (ABNORMAL) Basic Metabolic Panel (non-fasting) (08/04/2016 10:52 AM EDT) Glucose 95 65 - 199 mg/dL [facility] Comment:Diabetes: >=200 mg/d L plus symptoms Blood Urea Nitrogen 27(H) 8 - 18 mg/dL [facility] Creatinine 1.27(H) 0.70 - 1.20 mg/dL [facility] Comment: Please note that the pediatric reference intervals supplied above were not validated at [facility]. Results from pediatric patients should be interpreted in conjunction to the patient's age, height and muscle mass. Sodium 138 135 - 145 mmol/L [facility] Potassium 5.3(H) 3.5 - 5.0 mmol/L [facility] Comment: Please note: ??Patients with WBC >100,000 may have falsely elevated Potassium levels. ??For accurate Potassium quantification in these patients send serum separator tube (gold top) for subsequent determinations. ??Contact the Clinical Chemistry Laboratory if there are any questions. Chloride 100 98 - 107 mmol/L [facility] Carbon Dioxide 24 22 - 31 mmol/L [facility] Anion Gap 14 5 - 15 mmol/L [facility] Calcium 9.4 8.5 - 10.5 mg/dL [facility] Est Glomerular Filtration Rate 44(L) >=60 [facility] Comment: This estimated GFR (eGFR) value was calculated using the MDRD equation which has been validated on patients between the ages of 18 and 70. The MDRD should not be used to assess kidney function in patients < 18 years of age or in patients with extremes of body mass, or in patients with acute kidney failure. This value should be multiplied by 1.2 for patients. For further information please copy and paste the following links into your internet browser. http://[employer]/DHnkdep http://[employer]/DHMCnkf Blood specimen (specimen) 08/04/2016 10:52 AM EDT 08/04/2016 11:06 AM EDT Narrative Resulting Agency Comment Spec In Lab Sumit Sawyer MD CHEMISTRY ORDERABLE S [facility] [place] [address] documented in this encounter Visit Diagnoses Diagnosis CKD (chronic kidney disease) stage 4, GFR 15-29 ml/min Chronic kidney disease, Stage IV (severe) documented in this encounter Care Teams Sewer Line Photo Inspector Relationship Specialty Start Date End Date Yaritza Pierre MD [address] [place] [id number] PCP - General 03/27/12 11/27/18 documented as of this encounter
--- OUTSIDE RECORDS SUMMARY | 2024-09-14 13:09 | XMS_ITS | Encounter Summary ---
Author Organization Formerly [facility] Address [facility] [place] [address] Care Team Providers Care Career Information Specialist Name Role Phone Yaritza Pierre MD Primary Care Provider [phone] Reason for Visit * Reason Comments Follow-up bilateral ulnar zach ry transfer Encounter Details Date Type Department Care Team (Late st Contact Info) Description 03/29/2017 8:45 AM EDT Office Visit Plastic Surgery at [address] [phone] Andre Mccoy MD [facility] [place] [address] Scleroderma Social History Tobacco Use Types Packs/Day [...] this encounter Patient Instructions * Patient Instructions* Marguerite Reynaga - 03/29/2017 8:45 AM EDT 1. Follow up in 6 months 2. Start course of antibiotics documented in this encounter Progress Notes * Andre Mccoy MD - 03/29/2017 8:45 AM EDT Plastic Surgery Follow Up Note Reason for visit: F/U status post procedure Date of surgery: 10/07/16 Procedure(s): Ulnar artery transfer into cephalic vein. Complications: None reported HPI: Amber Wells returns today in f/u. She states that she appreciates heat with her hand. She is eager for the weather to warm up to promote better blood flow. She has an opening on her right thumb tip that appreciates drainage. She has injured her shoulder carrying her cat to the [employer] office and is waiting to follow up with a specialist. She is unable to take over the counter pain medication for breakthrough pain. Examination: Patient is alert, conversant, comfortable, ambulating Incision: CDI, healing well. No signs of infection Able to flex and extend at elbow, wrist, fingers with expected stiffness R wrist: Palpable pulse just proximal to dorsal wrist crease, R long and ring fingers with mildly delayed 3 sec CR, thumb with mild edema at pulp and small 3mm wound without fluctuance or purulence on today's exam. L wrist: Incision well healed, no wounds at fingertips. Impression: Amber Wells is a 56 y.o. female who was seen today for follow- up after the above procedure. Please see the operative note for details. She is doing well. We discussed that she should start a course of antibiotics for the wound on her thumb. She will follow up in the fall for reevaluation and consideration of botox for winter. Plan: 1. Follow up in 6 months 2. Start course of antibiotics Marguerite Wall am acting as scribe for Dr. Mccoy. All work documented was performed by Dr. Mccoy. ???I performed the above scribed service and agree with the accuracy of the note?? ANDRE MCCOY MD. documented in this encounter Plan of Treatment Upcoming Encounters Date Type Department Care Team (Late st Contact Info) Description 10/07/2024 11:30 AM EST Office Visit Dermatology at [facility] [address] [address] Jo Ordaz MD [facility] [place] [address] 12/13/2024 11:30 AM EST Appointment [place] [phone] 12/13/2024 1:00 PM EST Office [place] [address] Kiet Pardo MD [facility] [place] [address] documented as of this encounter Visit Diagnoses Diagnosis Scleroderma Systemic sclerosis documented in this encounter Care Teams Career Information Specialist Relationship Specialty Start Date End Date Yaritza Pierre MD [address] [place] [id number] PCP - General 03/27/12 11/27/18 documented as of this encounter
--- OUTSIDE RECORDS SUMMARY | 2024-09-14 13:09 | XMS_ITS | Encounter Summary ---
[place] [address] Care Team Providers Care Buckle Gluer Name Role Phone Yaritza Pierre MD Primary Care Provider [phone] Reason for Visit * Reason Onset Date Comments Medication Refill 04/28/2017 Encounter Details Date Type Department Care Team (Late st Contact Info) Description 04/28/2017 Ref[place] [address] Tatiana Zepeda MA CKD (chronic kidney disease) stage 3, GFR 30-59 ml/min; Scleroderma; CKD (chronic kidney disease), stage 3 (moderate) Social History Tobacco Use Types Packs/Day Years [...] EST Office Visit Dermatology at [facility] [address] [place] [address] Jo Ordaz MD [facility] [place] [address] 12/13/2024 11:30 AM EST Appointment Pulmonology at [place] [phone] 12/13/2024 1:00 PM EST Office Visit Rheumatology at [place] [phone] Kiet Pardo MD [facility] [place] [address] documented as of this encounter Visit Diagnoses Diagnosis CKD (chronic kidney disease) stage 3, GFR 30-59 ml/min Chronic kidney disease, Stage III (moderate) Scleroderma Systemic sclerosis CKD (chronic kidney disease), stage 3 (moderate) documented in this encounter Care Teams Buckle Gluer Relationship Specialty Start Date End Date Yaritza Pierre MD [address] [place] [address] PCP - General 03/27/12 11/27/18 documented as of this encounter
--- OUTSIDE RECORDS SUMMARY | 2024-09-14 13:09 | XMS_ITS | Encounter Summary ---
[place] [address] Care Team Providers Care Business And Marketing Teacher Name Role Phone Yaritza Pierre MD Primary Care Provider Encounter Details Date Type Department Care Team (Late st Contact Info) Description 10/12/2016 11:00 AM EST Office Visit Occupational Therapy at [address] [phone] Mikel Diehl, OT [facility] PHYSICAL MEDICINE & [place] [address] Swelling of extremity, right Social History Tobacco Use Types Packs/Day Years [...] as of this encounter Progress Notes * Mikel Diehl, OT - 10/12/2016 11:00 AM EST OCCUPATIONAL THERAPY INITIAL UPPER EXTREMITY EVALUATION EVALUATION PERFORMED: 10/12/16 REFERRAL SOURCE: Dr. Andre JEAN MD FOLLOW UP: NOV 23, 2016 DIAGNOSIS: 1. Swelling of extremity, right 2. Ulnar artery transfer into cephalic vein on right arm DATE OF INJURY/ ONSET OF SYMPTOMS: scleroderma diagnosis with resultant decreased circulation ongoing DATE OF SURGERY: 10/07/16 TOTAL TREATMENT TIME: 50 Minutes TIMED CODE TREATMENT TIME: CURRENT HISTORY: Amber Wells is a 56 y.o. year old Right hand dominant female who underwent asurgery last week to her right arm to complete an ulnar artery transfer (2.5 mm) to right cephalic vein (2.5 mm) end to end anastomosis using 9-0 nylon. Amber Wells is referred to Occupational Therapy for evaluation and treatment. Referral and direct instruction from her surgeon was for active and passive range of motion to her elbow, forearm, wrist and digits without any restrictions, other than no heavy lifting he communicated to the patient in his visit. Patient presents today accompanied by patient and partner. CURRENT SYMPTOMS: Patient presents with swelling, bruising, limited range of motion, stiffness, andpain mostly with movement/activity. 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 Occupation: Home needs Avocational Activities: ride bike, kayaking, walking, hike, skate, cross country ski play guitar PATIENT SPECIFIC FUNCTIONAL SCALE (PSFS) Activity At Evaluation 1.) shower 2 2.) dressing 2 3.) home management/cleaning 0 4.) leisure as above 0 5.) Average Score: 1 Amber Wells identifies difficulty with the following functional activities using the Patient Specific Functional Scale (PSFS): 0/10 (unable to perform) to 10/10 (Able to perform without difficulty) TREATMENT TODAY: Evaluation Active range of Motion Exercises: completed active range and passive range of motion to elbow flexion and extension Active range for forearm supination/pronation, wrist radial and ulnar deviation, and wrist flexion/extension, thumb and digit flexion/extension, tendon glides Retrograde massage to dorsum of hand Fitted with a compression sleeve ASSESSMENT: Amber Wells presents today with functional limitations due to her very recent surgery (6 days ago). She has bruising, swelling, and resting and activity related pain, as well as limitations with active range of motion/function. She tolerated passive range to her elbow ranges well,and was able to actively range the rest of her forearm, wrist and finger ranges. Amber has baseline stiffness in her fingers and prior to surgery was unable to make a full fist or fully extend her fingers. Swelling in the midforearm more pronounced, therefore fitted her with a compression sleeve. Amber lives in [facility] [facility] 2 hours away therefore she will continue her therapy closer to home. Amber Wells is able to demonstrate home exercises with written instructions provided. Amber Wells has fair to good potential for gains with therapy with identified needs for skilled therapy for treatment of deficits noted during evaluation today, to maximize functional performance during daily activities. Short Term Goals (to be met by today): Date Goal Met: Met Amber Wells will be independent with home exercise program. Goal Status: Met PLAN: Amber will be seen by a local therapist near her home town two [place] away. The referral and the home exercises were provided in hard copy to the patient today. Amber was provided with the phone number and knows to call with any questions. OT is dischargedfrom this facility today. (X) Amber Wells participated in the evaluation, collaborated on treatment goals, and agrees to the treatment plan . documented in this encounter Plan of Treatment Upcoming Encounters Date Type Department Care Team (Late st Contact Info) Description 10/07/2024 11:30 AM EST Office Visit Dermatology at [address] [phone] Jo Ordaz MD [facility] [place] [address] 12/13/2024 11:30 AM EST Appointment [place] [phone] 12/13/2024 1:00 PM EST Office [place] [phone] Kiet Pardo MD [facility] [place] [address] documented as of this encounter Visit Diagnoses Diagnosis Swelling of extremity, right Swelling of limb documented in this encounter Care Teams Business And Marketing Teacher Relationship Specialty Start Date End Date Yaritza Pierre MD [address] [place] [address] PCP - General 03/27/12 11/27/18 documented as of this encounter
--- OUTSIDE RECORDS SUMMARY | 2024-09-14 13:09 | XMS_ITS | Encounter Summary ---
[place] [address] Care Team Providers Care Digital Imaging Specialist Name Role Phone Yaritza Pierre MD Primary Care Provider [phone] Reason for Referral * Diagnostic Test (Routine) - Closed Specialty Diagnoses / Procedures Referred By Wander hernandez Referred To Contact Radiology Diagnoses Desmoid Procedures MRI Upper Extremity Non Joint With/WO Contrast Breanna Ordoñez MD [facility] [place] [address] [place] [address] Referral ID Status Reason Start Date Expiration Date V isits Requested Visits Authorized [id number] Closed Specialty Service Requested 09/15/2016 11/14/2016 1 1 Reason for Visit * Diagnostic Test (Routine) - Closed Specialty Diagnoses / Procedures Referred By Wander hernandez Referred To Contact Radiology Diagnoses Desmoid Procedures MRI Upper Extremity Non Joint With/WO Contrast Breanna Ordoñez MD [facility] [place] [address] [place] [address] Referral ID Status Reason Start Date Expiration Date V isits Requested Visits Authorized [id number] Closed Specialty Service Requested 09/15/2016 11/14/2016 1 1 Encounter Details Date Type Department Care Team (Late st Contact Info) Description 09/23/2016 8:19 AM EDT - 09/23/2016 11:59 PM EDT Hospital Encounter MRI at [facility] [place] [address] Breanna Ordoñez MD [facility] [place] [address] Desmoid Discharge Disposition: Home Social History Tobacco Use [...] Sig Dispensed Refills Start Date End Date acetaminophen (TYLENOL) 500 mg Tablet Take 2 [...] hours. esomeprazole (NEXIUM) 40 mg Capsule, Delayed Release(E.C.)Indicati ons:CKD (chronic kidney disease) stage 3, GFR 30-59 ml/min,Scleroderma Take 1 capsule by mouth 2 times daily. 180 capsule 3 01/10/2018 11/28/2018 LORazepam (ATIVAN) 2 mg Tablet Take 1 tablet by mouth nightly as needed. 30 tablet 10/08/2016 10/20/2016 oxyCODONE (ROXICODONE) 10 mg Tablet Take 1 tablet by mouth every 4 hours as needed for Pain (severe pain 8-10). 40 tablet 10/08/2016 10/20/2016 ibuprofen (ADVIL) 200 mg Tablet Take 600 mg by mouth daily. Reported on 02/24/2017 02/24/2017 fosinopril (MONOPRIL) 20 mg TabletIndications:Scl eroderma,CKD (chronic kidney disease) stage 3, GFR 30-59 ml/min Take 1 tablet by mouth daily. 90 tablet 3 09/16/2016 10/26/2016 sildenafil (REVATIO) 20 mg Tablet 05/26/2016 03/29/2017 aspirin 81 mg Tablet, Chewable Take 81 mg by mouth daily. 30 tablet 3 04/09/2016 08/22/2017 amLODIPine (NORVASC) 10 mg Tablet Take 1 tablet by mouth daily. 90 tablet 3 03/23/2016 10/26/2016 esomeprazole (NEXIUM) 40 mg Capsule, Delayed Release(E.C.)Indicati ons:CKD (chronic kidney disease) stage 3, GFR 30-59 ml/min,Scleroderma,CK D (chronic kidney disease), stage 3 (moderate) Take 1 capsule by mouth daily. 90 capsule 3 03/22/2016 04/28/2017 lidocaine-prilocaine (EMLA) cream Apply topically as needed. 30 g 2 05/21/2013 01/09/2020 documented as of this encounter Plan of Treatment Upcoming Encounters Date Type Department Care Team (Late st Contact Info) Description 10/07/2024 11:30 AM EST Office Visit Dermatology at [address] [address] Jo Ordaz MD [facility] [address] 12/13/2024 11:30 AM EST Appointment [place] [address] 12/13/2024 1:00 PM EST Office [place] [phone] Kiet Pardo MD [facility] [place] [address] documented as of this encounter Procedures Procedure Name Priority Date/Time Associated Diagnosis Comments MRI UPPER EXTREMITY NON JOINT WITH/WO CONTRAST Routine 09/23/2016 11:03 AM EDT Desmoid documented in this encounter Results * MRI Upper Extremity Non Joint With/WO Contrast (09/23/2016 11:03 AM EDT) Anatomical Region Laterality Modality Shoulder, Arm, Elbow, Forearm, Wrist, Hand Magnetic Resonance Impressions 09/23/2016 1:28 PM EDT Impression: There is a continued decrease in the size of a postoperative collection posterior to the left paraspinal musculature. Abnormal enhancement is seen however extending deep to the subscapularis muscle outlining the surface of the chest wall. When comparison is made to earlier studies this abnormal enhancement does appear to have increased raising concern for possible tumor recurrence Narrative 09/23/2016 1:28 PM EDT EXAMINATION: ??MRI UPPER EXTREMITY NON JOINT WWO CONTRAST/BILAT CLINICAL HISTORY: ??back desmoid s/p resection. monitoring for progression/recurrence Technique: T1 weighted, fat suppressed T2 weighted and Inversion Recovery sequences. In-phase and opposed-phase gradient echo images. Diffusion weighted imaging with ADC mapping. Fat suppressed T1 weighted images prior to and following IV contrast administration with time resolved MR perfusion. Contrast: 7 mL of Gadavist administered intravenously. Findings: Surgical bed: The superficial postoperative collection in the subcutaneous fat of the left paraspinal region continues to decrease in size. Comparing sagittal post contrast T1-weighted images (series 9, image 51 from 02/17/2015, series 10 image 91 from 09/18/2015 and series 17 image 42 from the current examination) the craniocaudad dimension of this abnormal postoperative tissue measures approximately 3 cm on all images. The anterior posterior dimensions however have decreased from 13 mm to 7 mm. This appears to be largely due to decrease in the amount of fluid within the abnormal tissue. Deep to the scapula however, overlying the chest wall posterior laterally increased enhancing tissue is seen in this has progressively increased in size. Again this is best visualized on the sagittal postcontrast images as described above. Subjectively the appearance is similar on each of the 3 studies but it has increased in prominence when comparison is made to more remote examination dated 08/28/2014. Appearance is worrisome for tumor recurrence but is nonspecific and could represent inflammation. No chest wall invasion is identified. No pleural effusion is seen. Elsewhere, no soft tissue mass is identified. No regional adenopathy is identified. No osseous abnormalities are seen. Procedure Note Flako Sullivan MD - 09/23/2016 EXAMINATION: MRI UPPER EXTREMITY NON JOINT WWO CONTRAST/BILAT CLINICAL HISTORY: back desmoid s/p resection. monitoring for progression/recurrence Technique: T1 weighted, fat suppressed T2 weighted and Inversion Recovery sequences. In-phase and opposed-phase gradient echo images. Diffusion weightedimaging with ADC mapping. Fat suppressed T1 weighted images prior to and following IV contrast administration with time resolved MR perfusion. Contrast: 7 mL of Gadavist administered intravenously. Findings: Surgical bed: The superficial postoperative collection in the subcutaneous fat of theleft paraspinal region continues to decrease in size. Comparing sagittal post contrast T1-weighted images (series 9, image 51 from 02/17/2015, series 10image 91 from 09/18/2015 and series 17 image 42 from the current examination)the craniocaudad dimension of this abnormal postoperative tissue measures approximately 3 cm on all images. The anterior posterior dimensionshowever have decreased from 13 mm to 7 mm. This appears to be largely due to decreasein the amount of fluid within the abnormal tissue. Deep to the scapula however, overlying the chest wall posteriorlaterally increased enhancing tissue is seen in this has progressively increased insize. Again this is best visualized on the sagittal postcontrast images asdescribed above. Subjectively the appearance is similar on each of the 3 studies butit has increased in prominence when comparison is made to more remoteexamination dated 08/28/2014. Appearance is worrisome for tumor recurrence but isnonspecific and could represent inflammation. No chest wall invasion is identified. No pleural effusion is seen. Elsewhere, no soft tissue mass is identified. No regional adenopathy is identified. No osseous abnormalities are seen. IMPRESSION Impression: There is a continued decrease in the size of a postoperative collection posterior to the left paraspinal musculature. Abnormal enhancement is seen however extending deep to the subscapularismuscle outlining the surface of the chest wall. 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 65.3 kg Order-specific weight), Intravenous, ONCE PRN, 1 dose, Starting on Mon09/23/16 at 0952, Until Mon09/23/16 at 1037, Per Protocol, Routine Given 09/23/2016 10:37 AM EDT 6.53 mLs documented in this encounter Care Teams Digital Imaging Specialist Relationship Specialty Start Date End Date Yaritza Pierre MD [address] [place] [address] PCP - General 03/27/12 11/27/18 documented as of this encounter
--- OUTSIDE RECORDS SUMMARY | 2024-09-14 13:09 | XMS_ITS | Encounter Summary ---
[place] [address] Care Team Providers Care Printing Plate Setter Name Role Phone Yaritza Pierre MD Primary Care Provider [phone] Encounter Details Date Type Department Care Team (Late st Contact Info) Description 09/16/2016 Telephone [place]ph[place] [phone] Wendy Albarado RN Social History Tobacco Use [...] Telephone Encounter - Wendy Albarado RN - 09/16/2016 9:17 AM EDT O. Patient states she has an irregular heart rate lately. She was in [place] for a visit with her family, was eating more chocolate, drinking more coffee but the pulse is still irregular now that she is back in her usual routine. Of note: This started about 2 weeks after decreasing the fosinopril to20mg. BP's are all under <120systolic. Pulse rate is in the 70's. She does not feel SOB. A. New onset irregular heart rate noticed by patient. P. She will check in with her PCP regarding the irregular heart beat Blood pressures are still good on the decreased dose of fosinopril. documented in this encounter Plan of Treatment Upcoming Encounters Date Type Department Care Team (Late st Contact Info) Description 10/07/2024 11:30 AM EST Office Visit Dermatology at [place] [address] [place] [address] Jo Ordaz MD [facility] [place] [address] 12/13/2024 11:30 AM EST [place] [address] 12/13/2024 1:00 PM EST Office [place] [address] Kiet Pardo MD [facility] [place] [address] documented as of this encounter Visit Diagnoses Diagnosis Scleroderma Systemic sclerosis CKD (chronic kidney disease) stage 3, GFR 30-59 ml/min Chronic kidney disease, Stage III (moderate) documented in this encounter Care Teams Printing Plate Setter Relationship Specialty Start Date End Date Yaritza Pierre MD [address] [place] [address] PCP - General 03/27/12 11/27/18 documented as of this encounter
--- OUTSIDE RECORDS SUMMARY | 2024-09-14 13:09 | XMS_ITS | Encounter Summary ---
[place] [address] Care Team Providers Care Broomcorn Grader Name Role Phone Yaritza Pierre MD Primary Care Provider [phone] Reason for Visit * Reason Onset Date Comments Medication Refill 10/25/2016 Encounter Details Date Type Department Care Team (Late st Contact Info) Description 10/26/2016 [place] [phone] Gem Richey RN Social History Tobacco Use Types Packs/Day [...] Telephone Encounter - Gem Richey RN - 10/26/2016 8:57 AM ESTFrom: Amber Wells To: Yu Mcdonough DO Sent: 10/25/2016 9:48 PM EST Subject: Medication Renewal Request Original authorizing provider: DO Amber YOON would like a refill of the following medications: amLODIPine (NORVASC) 10 mg Tablet [YU MCDONOUGH, DO] Preferred pharmacy: [facility] [place] [address] [address] [facility] Comment: Azeem Mcdonough Is it possible to renew the Amlodipine 10 mg tab / 3 MONTHS AT THE TIME please? My pharmacy is [facility] The surgery went o.k.... still in recovery...... finger circulation are not better yet but not worst..... It takes time.... Thank you and have a wonderful day, Best regards.... Amber Wells documented in this encounter Plan of Treatment Upcoming Encounters Date Type Department Care Team (Late st Contact Info) Description 10/07/2024 11:30 AM EST Office Visit Dermatology at [place] [address] [place] [address] Jo Ordaz MD [facility] [place] [place] [address] 12/13/2024 11:30 AM EST Appointment [place] [phone] 12/13/2024 1:00 PM EST Office [place] [address] Kiet Pardo MD [facility] [place] [address] documented as of this encounter Visit Diagnoses Not on filedocumented in this encounter Care Teams Broomcorn Grader Relationship Specialty Start Date End Date Yaritza Pierre MD [address] [place] [address] PCP - General 03/27/12 11/27/18 documented as of this encounter
--- OUTSIDE RECORDS SUMMARY | 2024-09-14 13:09 | XMS_ITS | Encounter Summary ---
Author Organization [facility] Address [facility] [place] [address] Care Team Providers Care Research Management Associate Name Role Phone Yaritza Pierre MD Primary Care Provider [phone] Reason for Referral * Occupational Therapy (Routine) - Closed Specialty Diagnoses / Procedures Referred By Wander hernandez Referred To Contact Diagnoses Scleroderma Andre Marroquin MD [facility] [place] [address] Unknown None Referral ID Status Reason Start Date Expiration Date V isits Requested Visits Authorized [id number] Closed Evaluate and Treat 12/08/2016 06/06/2017 12 12 Reason for Visit * Reason Comments Follow-up right ulnar transfer Encounter Details Date Type Department Care Team (Late st Contact Info) Description 12/08/2016 2:15 PM EST Office [place] [address] Andre Marroquin MD [facility] [place] [address] Scleroderma Social History Tobacco Use Types Packs/Day [...] as of this encounter Progress Notes * Gregory Nyeie Jennifer - 12/08/2016 2:15 PM EST Plastic Surgery Post Op Note Reason for visit: F/U status post procedure Date of surgery: 10/07/16 Procedure(s): Ulnar artery transfer into cephalic vein. Complications: None reported HPI: Amber Wells returns today in f/u. She reports that she has increased sensation in her hands and can appreciate heat. Examination: Patient is alert, conversant, comfortable, ambulating Incision: CDI, healing well. No signs of infection Able to flex and extend at elbow, wrist, fingers with expected stiffness Palpable pulse just proximal to wrist Dopplerable pulse at head Impression: Amber Wells is a 56 y.o. female who was seen today for follow- up after the above procedure. Please see the operative note for details. She is doing well. Plan: External referral given today for elbow ROM I, Valentina Nye, am acting as scribe for Dr Marroquin. All work documented was performed by Dr Marroquin. ???I performed the above scribed service and agree with the accuracy of the note?? Dr. Andre Marroquin. documented in this encounter Plan of Treatment Upcoming Encounters Date Type Department Care Team (Late st Contact Info) Description 10/07/2024 11:30 AM EST Office Visit Dermatology at [place] [address] [place] [address] Jo Ordaz MD [facility] [place] [address] 12/13/2024 11:30 AM EST [place]ointment [place] [address] 12/13/2024 1:00 PM EST Office [place] [address] Kiet Pardo MD [facility] [place] [address] Scheduled Referrals Name Type Priority Associated Diagnoses Order Schedule Referral to Occupational Therapy Outpatient Referral Routine Scleroderma Ordered: 12/08/2016 documented as of this encounter Visit Diagnoses Diagnosis Scleroderma Systemic sclerosis documented in this encounter Care Teams Research Management Associate Relationship Specialty Start Date End Date Yaritza Pierre MD [address] [place] [address] PCP - General 03/27/12 11/27/18 documented as of this encounter
--- OUTSIDE RECORDS SUMMARY | 2024-09-14 13:09 | XMS_ITS | Encounter Summary ---
Author Organization [facility] Address [facility] [place] [address] Care Team Providers Care Barge Captain Name Role Phone Yaritza Pierre MD Primary Care Provider [phone] Reason for Referral * High Dollar Medication (Routine) - Closed Specialty Diagnoses / Procedures Referred By Wander hernandez Referred To Contact Plastic Surgery Diagnoses Raynaud's disease without gangrene Other specified mononeuropathies of bilateral upper limbs Procedures Auth Request for Medication TC ONABOTULINUMTOXINA, 1 UNIT, INJECTION DESTROY NERVE,EXTREM/TRUNK MUSCLES PRFM Andre Mccoy MD [facility] [place] [address] Andre Mccoy MD [facility] [place] [address] Referral ID Status Reason Start Date Expiration Date V isits Requested Visits Authorized [id number] Closed Consult, Test & Treat 10/27/2017 09/18/2021 9 9 Reason for Visit * Reason Comments Follow-up scleroderma Encounter Details Date Type Department Care Team (Late st Contact Info) Description 09/27/2017 10:30 AM EST Office Visit Plastic Surgery at [facility] [address] [place] [address] Andre Mccoy MD [facility] [place] [address] Scleroderma; Raynaud's disease without gangrene Social History [...] Progress Notes * Andre Mccoy MD - 09/27/2017 10:30 AM EST Plastic Surgery Follow Up Note Reason for visit: F/U status post procedure Date of surgery: 10/07/16 Procedure(s): Ulnar artery transfer into cephalic vein. Complications: None reported HPI: Amber Dawson returns today in f/u. She reports new sores on both of her hands. She statesher medication has been helping but 'not enough'. She is interested in possible botox injections for her hands. Examination: Patient is alert, conversant, comfortable, ambulating Incision: CDI, healing well. No signs of infection Able to flex and extend at elbow, wrist, fingers with expected stiffness R wrist: I cannot feel or doppler the cephalic pulse that was present during her last visit, fingers are cool but pink at tips with 2-3 sec CR, mild superficial scabs on tips of multiple digits, no active infection. L wrist: Incisions well healed, I cannot feel or doppler the reconstructed ulnar artery pulse, fingers are cool but pink at tips with 2-3 sed CR, mild superficial scabs on tips of multiple digits, noactive infection. Impression: Amber Dawson is a 57 y.o. female who was seen today for follow- up after the above procedure. Please see the operative note for details. I would like to get an approval for her to receive botox in the palm to dilate the blood vessels in her hand. I explained that since botox may weaken muscles, she may have some hand weakness after the injections .I would also like to obtain digita l PVRs to determine the blood flow to her fingertips. Plan: To Vascular surgery for fingertip pressure test Follow up after botox approval I, Judie Marie, am acting as scribe for Dr. Mccoy. All work documented was performed by . ???I performed the above scribed service and agree with the accuracy of the note?? ANDRE MCCOY MD. documented in this encounter Plan of Treatment Upcoming Encounters Date Type Department Care Team (Late st Contact Info) Description 10/07/2024 11:30 AM EST Office Visit Dermatology at [place] [address] [place] [phone] Jo Ordaz MD [facility] [place] [address] 12/13/2024 11:30 AM EST Appointment [place] [address] 12/13/2024 1:00 PM EST Office [place] [address] Kiet Pardo MD [facility] [place] [address] documented as of this encounter Results * UL Seg Pressure, multi levels (11/02/2017 10:20 AM EST) VB Text Report Department: Vascular Surgery Lab Patient: [id number] (AMBER DAWSON) CPT: 06456 ICD10: M34.9 Referring Physician: ANDRE MCCOY ?? Phone: Indications: ??scleroderma, Raynaud's, s/p bilateral [...] VASCUBASE 11/02/2017 10:2 0 AM EST Andre Mccoy MD VASCULAR ORDERABLES VASCUBASE documented in this encounter Visit Diagnoses Diagnosis Scleroderma Systemic sclerosis Raynaud's disease without gangrene documented in this encounter Care Teams Barge Captain Relationship Specialty Start Date End Date Yaritza Pierre MD [address] [place] [address] PCP - General 03/27/12 11/27/18 documented as of this encounter
--- OUTSIDE RECORDS SUMMARY | 2024-09-14 13:09 | XMS_ITS | Encounter Summary ---
Author Organization [facility] [place] [address] Care Team Providers Care Diamond Assorter Name Role Phone Yaritza Pierre MD Primary Care Provider [phone] Reason for Visit * Auth/Cert Specialty Diagnoses / Procedures Referred By Wander hernandez Referred To Contact Diagnoses ULNAR ARTERY EVALUATION Procedures PRO VASCULAR SURGERY PROCEDURE UNLIST PRO VASCULAR SURGERY PROCEDURE UNLIST HARVEST SAPHENOUS VEIN EXCISION VEIN FROM HAND Referral ID Status Reason Start Date Expiration Date Visits Re quested Visits Authorized [id number] 1 1 Encounter Details Date Type Department Care Team (Late st Contact Info) Description 10/07/2016 2:32 PM EST Anesthesia Event [place] [address] Vicki Mcgrath MD [facility] DR [place] [address] [facility] [place] [address] Anesthesia Record Procedure Summary Procedure Name Responsible Anesthesiologist Anesthesia Start Time Anesthesia Stop Time @BYPASS GRAFT, BRACHIAL-ULNAR OR RADIAL W\VEIN (VASC) (WRVU 24.13) (Right: Arm Lower) Vicki Mcgrath MD 10/07/16 1432 10/07/16 1806 Events Date Time Event Comment 10/07/2016 1343 1432 AN Verify 1432 Start 1432 An Start Data 1438 An Induction 1440 An Intubation 1442 Anesthesia Ready 1504 Handoff Intra-procedure anesthesia care was transferred after review of the patient's history, current anesthetic/surgical status and plan, according to the ANES Provider Handoff Checklist. 1753 Extubation/LMA Out 1755 an stop data 1806 Recovery or ICU Handoff Lorri ent care was transferred to the destination unit staff after review of the patient's medical history, current anesthetic/surgical status and plan, according to the Provider Handoff Checklist. 1806 Stop Meds Name Total Propofol 150 mg Propofol INF 1,205.64 mg fentaNYL 100 mcg Midazolam 2 mg IV Lidocaine 40 mg Dexamethasone 8 mg Ondansetron 4 mg PHENYLephrine 240 mcg ceFAZolin (ANCEF) 2g in dextrose 5% 50 m L 2 g HYDROmorphone 0.8 mg Lactated Ringers 800 mL * Agents Name O2 Air N2O Sevoflurane (et) * Blood No blood administrations on file. Lines, Drains, and Airways Type Details Placement Removal Incision arm; 07/18/22 (LDA cleanup utility RA#[id number]); 1715 (LDA cleanup utility RA#[id number]) 04/08/16 1242 by 07/18/22 1715 by Dena Armendariz (RETIRED) Peripheral IV Line - Single Lumen 10/07/16; 1327; median vein (underside of arm), left; bbzl-[id number] catheter system; 20 gauge; Peggy Billy RN; intradermal injection, tolerated well; 10/08/16; 1012 10/07/16 1327 by Merari Ramirez RN 10/08/16 1012 by Brittni Ruby RN Supraglottic Mask Ventilation: No t Attempted (0); LMA Type: iGel; LMA Size: 3; Inserted by: Orlin; Removal Date: 10/07/16; Removal Time: 17510/07/16 1440 by Kev Ordaz MD 10/07/16 1753 by Adilene Ott CRNA Incision 10/07/16; 1500; arm; 07/18/22 (LDA cleanup utility RA#[id number]); 1715 (LDA cleanup utility RA#[id number]) 10/07/16 1500 by Jessica Cisneros RN 07/18/22 1715 by Dena Armendariz documented [...] OR Notes * Anesthesia Postprocedure Evaluation - Vicki Mcgrath MD - 10/07/2016 6:35 PM EST [facility] Department of Anesthesiology Post-procedure Note Patient: Amber Wells Procedure Summary Date Anesthesia Start Anesthesia Stop Room / Location 10/07/16 1432 1806 [facility] OR [facility] MAIN OR Procedure Diagnosis Surgeon Responsible Provider @BYPASS GRAFT, BRACHIAL-ULNAR OR RADIAL W\VEIN (VASC) (Right Arm Lower) (ULNAR ARTERY EVALUATION) Andre Marroquin MD Chaimberg, Kathleen H, MD All Anesthesia Providers: Anesthesiologist: Davin Galvez MD; Vicki Mcgrath MD [facility]: Adilene Ott CRNA Polymerization Oven Tender: Kev Ordaz MD Last (1hr) Vitals: BP 154/71 (10/07/161814) Temp 37.2 ??C (99 ??F) (10/07/16 1800) Pulse 76 (10/07/161814) Resp 13 (10/07/161814) SpO2 100 % (10/07/161814) Patient Location: PACU/[facility] Level of Consciousness: Conscious but Sleepy Pain Management: Satisfactory Analgesia PONV: None Cardiovascular Status: At Baseline and Hemodynamically Stable Respiratory Status: At Baseline and Room Air Postoperative Fluid Status: Intravascular EUvolemia Possible Anesthetic Complications: NONE apparent at time of evaluation Final Primary Anesthesia Type: General (The anesthetic type performed was the same as planned.) Comments: VICKI MCGRATH MD * Anesthesia Preprocedure Evaluation - Davin Galvez MD - 10/07/2016 1:23 PM EST Pre-Anesthesia Evaluation for: Amber Wells a 56 y.o. female. Procedure(s): HARVEST SAPHENOUS VEIN EXCISION VEIN FROM HAND Patient Active Problem List Diagnosis ??? Raynaud phenomenon ??? Fecal incontinence ??? [...] Had tunnelled dialysis catheter removed at [facility] in June 2010 ??? Scleroderma Past Medical History Diagnosis Date ??? Anemia associated with chronic [...] ??? Scleroderma 1991 Diffuse scleroderma. Past Surgical History Procedure Laterality Date ??? Created by interface Entered not Verified Procedure Date: 01/27/2011 ??? Created by interface No History of Operative Procedures Procedure Date: 01/27/2011 ??? Dilation and curettage of uterus ??? 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 Pro endoscopic us exam, esoph N/A 03/29/2016 UPPER EUS- ENDOSCOPIC ULTRASOUND performed by Darryl Ash MD at [facility] ENDOSCOPY ??? Pro upper gi endoscopy, biopsy N/A 03/29/2016 UPPER GASTROINTESTINAL ENDOSCOPY,WITH BIOPSY SINGLE OR MULTIPLE performed by Darryl Ash MD at [facility] ENDOSCOPY ??? Pro apply forearm splint, static Left 04/08/2016 SPLINT APPLICATION, SHORT ARM performed by Andre Marroquin MD at [facility] MAIN OR ??? Pro rebl ves vein grft, up extrem Left 04/08/2016 REPAIR BLOOD VESSEL WITH VEIN GRAFT, UPPER EXTREMITY performed by Andre Marroquin MD at [facility] MAIN OR Social History Substance Use Topics ??? Smoking status: Former Smoker Packs/day: 1.00 Years: 10.00 Types: Cigarettes Quit date: 03/30/1988 ??? Smokeless tobacco: Never Used ??? Alcohol use 0.6 oz/week 1 Glasses of wine per week Comment: once a week History Drug Use No No Known Allergies Medications: MAR and/or home medications have been reviewed. Physical Exam: Vitals: 10/07/16 1320 BP: 128/63 Pulse: 70 Resp: 16 Temp: 37 ??C (98.6 ??F) Body mass index is 21.14 kg/(m^2). Height: 170.2 cm (5' 7) Weight - Scale: 61.2 kg (135 lb) Airway Assessment: Mallampati: I TM distance: >3 [...] Plan discussed with resident. PAT Staff Note documented in this encounter Plan of Treatment Upcoming Encounters Date Type Department Care Team (Late st Contact Info) Description 10/07/2024 11:30 AM EST Office Visit Dermatology at [facility] [address] [place] [address] Jo Ordaz MD [facility] [place] [address] 12/13/2024 11:30 AM EST Appointment [place] [phone] 12/13/2024 1:00 PM EST Office Visit [place] [phone] Kiet Pardo MD [facility] [place] [address] documented as of this encounter Visit Diagnoses Not on filedocumented in this encounter Administered Medications Inactive Administered Medications - up to 3 most recent administrations Medication Order MAR Action Action Date Dose Rate Site ceFAZolin (ANCEF) 2g in dextrose 5% 50 mL 2 g, Intravenous, EVERY 8 HOURS, 3 doses, First dose on Mon10/07/16 at 1415, Last dose on Mon10/08/16 at 0615, Administer over 30 Minutes, Indication for (Active or Suspected): Prophylaxis Given 10/07/2016 2:45 PM EST 2 g dexamethasone (DECADRON) injection Intravenous, PRN, Starting on Mon10/07/16 at 1443, Until Mon10/07/16 at 1806, Anesthesia Intra-op, Routine Given 10/07/2016 2:43 PM EST 8 mg fentaNYL 50 mcg/mL multi-dose injection Intravenous, PRN, Starting on Mon10/07/16 at 1432, Until Mon10/07/16 at 1806, Pain, Anesthesia Intra-op, Routine Given 10/07/2016 2:32 PM EST 100 mcg HYDROmorphone (DILAUDID) injection PRN, Starting on Mon10/07/16 at 1515, Until Mon10/07/16 at 1806, Pain, Anesthesia Intra-op, Routine Given 10/07/2016 5:33 PM EST 0.4 mg Given 10/07/2016 3:15 PM EST 0.4 mg lactated ringers infusion CONTINUOUS PRN, Starting on Mon10/07/16 at 1432, Until Mon10/07/16 at 1806, Anesthesia Intra-op New Bag 10/07/2016 2:32 PM EST lidocaine (PF) (XYLOCAINE) 100 mg/5 mL (2 %) injection Intravenous, PRN, Starting on Mon10/07/16 at 1438, Until Mon10/07/16 at 1806, Anesthesia Intra-op, Routine Given 10/07/2016 2:38 PM EST 40 mg midazolam (PF) (VERSED) 1 mg/mL multi-dose injection Intravenous, PRN, Starting on Mon10/07/16 at 1432, Until Mon10/07/16 at 1806, Sleep, Anesthesia Intra-op, Routine Given 10/07/2016 2:32 PM EST 2 mg ondansetron (ZOFRAN) injection Intravenous, PRN, Starting on Mon10/07/16 at 1736, Until Mon10/07/16 at 1806, Nausea, Anesthesia Intra-op, Routine Given 10/07/2016 5:36 PM EST 4 mg PHENYLephrine HCl in NS (PF) (ARI-SYNEPHRINE) 0.8 mg/10 mL (80 mcg/mL) multi-dose injection Syrg Intravenous, PRN, Starting on Mon10/07/16 at 1720, Until Mon10/07/16 at 1806, Anesthesia Intra-op, Routine Given 10/07/2016 5:25 PM EST 80 mcg Given 10/07/2016 5:20 PM EST 80 mcg Given 10/07/2016 5:17 PM EST 80 mcg propofol (DIPRIVAN) 10 mg/mL bolus injection (Anesthesia) Intravenous, PRN, Starting on Mon10/07/16 at 1438, Until Mon10/07/16 at 1806, Anesthesia Intra-op Given 10/07/2016 2:38 PM EST 150 mg propofol (DIPRIVAN) infusion Intravenous, CONTINUOUS PRN, Starting on Mon10/07/16 at 1449, Until Mon10/07/16 at 1806, Anesthesia Intra-op, Routine New Bag 10/07/2016 2:49 PM EST 100 mcg/kg/min 36.7 mL/hr documented in this encounter Care Teams Diamond Assorter Relationship Specialty Start Date End Date Yaritza Pierre MD [address] [place] [address] PCP - General 03/27/12 11/27/18 documented as of this encounter
--- OUTSIDE RECORDS SUMMARY | 2024-09-14 13:09 | XMS_ITS | Encounter Summary ---
Author Organization [facility] [place] [address] Care Team Providers Care Packing Shed Supervisor Name Role Phone Yaritza Pierre MD Primary Care Provider [phone] Reason for Visit * Auth/Cert Specialty Diagnoses / Procedures Referred By Wander hernandez Referred To Contact Diagnoses ULNAR ARTERY EVALUATION Procedures PRO VASCULAR SURGERY PROCEDURE UNLIST PRO VASCULAR SURGERY PROCEDURE UNLIST HARVEST SAPHENOUS VEIN EXCISION VEIN FROM HAND Referral ID Status Reason Start Date Expiration Date Visits Re quested Visits Authorized [id number] 1 1 Encounter Details Date Type Department Care Team (Late st Contact Info) Description 10/07/2016 12:54 PM EST - 10/07/2016 4:22 PM EST [place] [id number] Andre Marroquin MD [facility] [place] [address] @BYPASS GRAFT, BRACHIAL-ULNAR OR RADIAL W\VEIN (VASC) (WRVU 24.13) Social History Tobacco Use Types Packs/Day Years [...] Sign Reading Time Taken Comments Blood Pressure 128/63 10/07/2016 1:20 PM EST Pulse 70 10/07/2016 1:20 PM EST Temperature 37 ??C (98.6 ??F) 10/07/2016 1:20 PM EST Respiratory Rate 16 10/07/2016 1:20 PM EST Oxygen Saturation 100% 10/07/2016 1:20 PM EST Inhaled Oxygen Concentration - - Weight 61.2 kg (135 lb) 10/07/2016 1:20 PM EST Height 170.2 cm (5' 7) 10/07/2016 1:20 PM EST Body Mass Index 21.14 10/07/2016 1:20 PM EST documented in this encounter Discharge Summaries * Jaiden Faustin MD - 10/07/2016 2:39 PM EST Discharge Summary Patient Name: Amber Wells Patient Age: 56 y.o. Language: Marshallese Race: / Ethnicity: Not nor Admit date: 10/07/2016 Attending Physician: Andre Marroquin MD Discharge Physician: MD Lopez Discharge Diagnoses (Hospital Problems) and Secondary Diagnoses (Chronic Problems): There are no hospital problems to display for this patient. Active Non-Hospital Problems Diagnosis ??? Raynaud phenomenon ??? Fecal incontinence ??? Other disorder of muscle, ligament, and fascia ??? Altered bowel habits ??? Desmoid fibromatosis ??? AK (actinic keratosis) ??? Solar lentigo ??? Multiple nevi ??? Raynaud's disease ??? Anemia of chronic renal failure, stage 4 (severe) ??? GERD (gastroesophageal reflux disease) ??? CKD (chronic kidney disease) stage 4, GFR 15-29 ml/min ??? Scleroderma Operations/Major Procedures: Procedure(s): HARVEST SAPHENOUS VEIN EXCISION VEIN FROM HAND 10/07/2016 History of Presentation (from Dr. Marroquin's note 07/07/16): Amber Wells is a 56 y.o. female who was seen today for follow-up after the above procedure. Please see the operative note for details. 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 This does not make her a candidate for ulnar bypass reconstruction that was successful on the left. We discussed treatment options including ulnar artery transfer into cephalic vein, I advised that this is not a common procedure. I advised that this procedure will not affect her hand function long- term. She would like to proceed in the fall. Hospital Course: Patient was admitted electively to [facility] via the same day surgery program and underwent the above procedure. She tolerated surgery well and was tranferred from the PACU to the general floor in good condition a few hours after surgery. Patient's hospital course was uncomplicated. She remained afebrile, with stable vital signs throughout her hospital stay. Today she has met all criteria for discharge home: her pain is well controlled with medications by mouth, she is tolerating a regular diet, is voiding spontaneously without difficulties, and is up and ambulating without complications. She has been deemed safe for discharge. Vital Signs at Discharge: Weight: Wt Readings from Last 1 Encounters: 10/07/16 61.2 kg (135 lb) Height: Ht Readings from Last 1 Encounters: 10/07/16 170.2 cm (5' 7) BMI: Body mass index is 21.14 kg/(m^2). Last value Range last 24 hrs Temperature Temp: 37 ??C (98.6 ??F) Temp: [37 ??C (98.6 ??F)] Heart Rate Heart Rate: 70 Heart Rate: [70] Blood Pressure BP: 128/63 BP: (128)/(63) Respiratory Rate Resp: 16 Resp: [16] SpO2 SpO2: 100 % SpO2: [100 %] Exam at Discharge: General: NAD CV:RRR Pulm: CTAB Abd: soft, NT, ND Incision: c/d/i Ext: warm, well perfused, no edema Functional and Cognitive Status: Ambulating and cognitively intact. Important Studies and Lab Data: Labs:Last wbc, hgb, hct plt No results for input(s): WBC, HGB, HCT in the last 72 hours. Invalid input(s): PLT Pending Studies and Lab Data: No current labs Discharge Conditions/Prognosis: Stable Discharge to: Home Updated Allergies/ADRs: No Known Allergies Immunizations Given this Hospitalization: Immunization History Administered Date(s) Administered ??? Influenza PF, Split 10/17/2012, 09/23/2016 Discharge Medications: Your Medications UNREVIEWED medications - Discuss With Your Provider Dose Details acetaminophen 500 mg Tab Commonly known as: TYLENOL Take 2 tablets by mouth every 8 hours as needed for Pain. 1000 mg Quantity: 30 tablet Refills: 1 ADVIL 200 mg Tab Take 600 mg by mouth daily. Generic drug: ibuprofen 600 mg Refills: 0 amLODIPine 10 mg Tab Commonly known as: NORVASC Take 1 tablet by mouth daily. 10 mg Quantity: 90 tablet Refills: 3 aspirin 81 mg Chew Take 81 mg by mouth daily. 81 mg Quantity: 30 tablet Refills: 3 esomeprazole 40 mg Cpdr Commonly known as: NexIUM Take 1 capsule by mouth daily. 40 mg Quantity: 90 capsule Refills: 3 fosinopril 20 mg Tab Commonly known as: MONOPRIL Take 1 tablet by mouth daily. 20 mg Quantity: 90 tablet Refills: 3 lidocaine-prilocaine Crea Commonly known as: EMLA Apply topically as needed. Quantity: 30 g Refills: 2 loperamide 2 mg Cap Commonly known as: IMODIUM Take 2 mg by mouth 4 times daily as needed for Diarrhea. 2 mg Refills: 0 nitroGLYcerin 2 % Oint Commonly known as: NITROGLYN Place 0.5 inches onto the skin every 6 hours. 0.5 inch Refills: 0 sildenafil 20 mg Tab Commonly known as: REVATIO Refills: 0 Vitamin D 1,000 unit Cap Take 1 tablet by mouth daily. Generic drug: cholecalciferol (Vitamin D3) 1 tablet Refills: 0 vitamin E 400 unit Cap Take 400 Units by mouth daily. 400 Units Refills: 0 Smoking Status at Discharge: History Smoking Status ??? Former Smoker ??? Packs/day: 1.00 ??? Years: 10.00 ??? Types: Cigarettes ??? Quit date: 03/30/1988 Smokeless Tobacco ??? Never Used Instructions Given to Patient at Discharge: Patient Instructions DISCHARGE INSTRUCTIONS WOUND CARE: Keep dressing clean dry and intact. You must avoid sunlight exposure to your incision(s). Do not use any over the counter ointments on the incisions postoperatively unless instructed by your provider. Please apply bacitracin twice a day to your incisions SHOWERING: OK to shower in 2 days. Do not submerge your surgical site under water until cleared by your provider. ANTIBIOTIC THERAPY: ACTIVITIES: Minimize contact to affected area(s). No heavy lifting until seen by MD. No driving or operating heavy machinery when on narcotics. Keep head elevated to decrease swelling DIET: Slowly advance diet as tolerated to a regular healthy diet. DO???S AND DON???TS FOR THE NEXT [address] not drive a motor vehicle for 1-2 weeks or until you can handle the steering wheel without discomfort. Do not drive while taking your narcotic. Do not smoke or be around anyone who smokes for 2 weeks after your surgery this is because smoking delays healing and can lead to infection. Do not lift more than 5 pounds or bend at the waist to lift for 6 weeks. Do not participate in strenuous activities such as running or aerobics for 6 weeks. Do resume walking at a gentle pace. Protect your incisions from the sun for 6 months to 1 year. CALL MD IF: Your incision opens up. You have signs of infection that include: a temperature over 100.4F or 38C, redness or warmth spreading away from the incision lines after the first 48 hours, you notice a yellow pus-like or foul smelling drainage larger than dime size from the incisions or drainage sites, you feel increased pain that is not relived by your pain medicine, you have swelling in one breast more than the other. During office hours: Monday - Monday 8am-5pm call [phone]. On weekends or after hours call [phone] and ask the mold filling operator to page the plastic surgery resident technician semiconductor development. FOLLOW UP: Future Appointments and Orders Future Appointments Provider Department Dept Phone 10/12/2016 10:30 AM Andre Marroquin MD Plastic Surgery at [facility] [phone] 10/12/2016 11:00 AM Mikel Diehl OT Occupational Therapy at [facility] [phone] 10/20/2016 11:30 AM Jo Ordaz MD Dermatology at [address] [phone] MEDICATIONS: Your Medications UNREVIEWED medications - Discuss With Your Provider Dose Details acetaminophen 500 mg Tab Commonly known as: TYLENOL Take 2 tablets by mouth every 8 hours as needed for Pain. 1000 mg Quantity: 30 tablet Refills: 1 ADVIL 200 mg Tab Take 600 mg by mouth daily. Generic drug: ibuprofen 600 mg Refills: 0 amLODIPine 10 mg Tab Commonly known as: NORVASC Take 1 tablet by mouth daily. 10 mg Quantity: 90 tablet Refills: 3 aspirin 81 mg Chew Take 81 mg by mouth daily. 81 mg Quantity: 30 tablet Refills: 3 esomeprazole 40 mg Cpdr Commonly known as: NexIUM Take 1 capsule by mouth daily. 40 mg Quantity: 90 capsule Refills: 3 fosinopril 20 mg Tab Commonly known as: MONOPRIL Take 1 tablet by mouth daily. 20 mg Quantity: 90 tablet Refills: 3 lidocaine-prilocaine Crea Commonly known as: EMLA Apply topically as needed. Quantity: 30 g Refills: 2 loperamide 2 mg Cap Commonly known as: IMODIUM Take 2 mg by mouth 4 times daily as needed for Diarrhea. 2 mg Refills: 0 nitroGLYcerin 2 % Oint Commonly known as: NITROGLYN Place 0.5 inches onto the skin every 6 hours. 0.5 inch Refills: 0 sildenafil 20 mg Tab Commonly known as: REVATIO Refills: 0 Vitamin D 1,000 unit Cap Take 1 tablet by mouth daily. Generic drug: cholecalciferol (Vitamin D3) 1 tablet Refills: 0 vitamin E 400 unit Cap Take 400 Units by mouth daily. 400 Units Refills: 0 NARCOTICS: You may be given a prescription for a narcotic medication immediately following your surgery. Narcotics are prescribed for short-term use to help treat your pain. Surgical pain requiring narcotics will usually be greatly decreased 2-3 days after surgery & should be mild to absent by 10-14 days. We will only prescribe a narcotic pain reliever for 2 weeks following your surgery. This will be determined by your surgeon. Narcotics do not reduce inflammation and it is inflammation that is usually a major cause of pain after surgery. Narcotics have many side effects such as constipation, lightheadedness, dizziness, sedation, confusion, nausea and vomiting. Driving and the use of alcohol are not recommended while you are using narcotic pain medications. Non-steroidal anti-inflammatories (NSAIDS) such as aspirin, Aleve and ibuprofen (Advil, Motrin) aremedications that reduce pain and inflammation. If you find your pain is not adequately controlled with the prescribed dose of your narcotic pain medication, NSAIDS may be used 48 hours after surgery with your narcotic to help alleviate the pain caused by inflammation. As you progress through your post-operative period, your pain should decrease and the use of narcotic medications should be less necessary. To reduce your chance of side effects, it is recommended that you save your narcotic medication for nighttime use and switch to NSAIDS or Acetaminophen (Tylenol) during the day. Alternative means of pain relief such as rest and relaxation, positioning, as well as decreasing stimulants such as coffee, tea, soft drinks, and nicotine may also help to alleviate pain. If you continue to experience significant pain 4-5 days after your procedure, it may be necessary to be re-evaluated by your physician. PRESCRIPTION RENEWALS: Renewal requests should be called in to our prescription line at [phone]. Narcotic renewals may be requested from 8am-4pm Monday through Monday. Due to patient safety, narcotic renewals will not be honored after hours or on weekends. It is best to make your request 2-3 days before you run out of your medication as it will take at least 24 hours for physician approval and nurse follow-up. Note that certain prescriptions, such as Percocet, Oxycodone, Vicodin, & Hydrocodone can not becalled in to a pharmacy and must be picked up by the patient. CONTACT INFORMATION: During office hours: Monday through Monday 8 am to 5 pm Call [phone] On weekends or after hours: Call [phone] and ask the mold filling operator to page the Plastic Surgery Resident technician semiconductor development. Post-Op Plan: - Follow up in: 7-10 days with Sandra/nurse - Wound Check - Suture removal: None/ days - Dressings: remove dressings (leave steri strips) General Instructions None Future Appointments and Orders Future Appointments Provider Department Dept Phone 10/12/2016 10:30 AM Andre Marroquin MD Plastic Surgery at [facility] [address] [phone] 10/12/2016 11:00 AM Mikel Diehl OT Occupational Therapy at [facility] [phone] 10/20/2016 11:30 AM Jo Ordaz MD Dermatology at [facility] [phone] Follow-Up: Future Appointments Date Time Provider Department Center 10/12/2016 10:30 AM Andre Marroquin MD [facility] 10/12/2016 11:00 AM Mikel Diehl OT [facility] 10/20/2016 11:30 AM Jo Ordaz MD [facility] Primary Care Provider: Yaritza Pierre MD [phone] Follow-up Recommendations for Providers: Please see discharge instructions. Call your doctor if: Please call your doctor immediately or go to an Emergency Department if you notice worsening pain not controlled by pain medications, uncontrolled headache, vision changes, chest pain, difficulty breathing, persistent nausea and vomiting, new redness or swelling in any extremities, new onset weakness or changes in sensation, or for any fevers greater than 101.3 F. Your care was managed by the Pl[facility] at [facility]. If you haveany questions or concerns, please feel free to contact us. Provider Contact Information: Plastic Surgery Clinic: [facility] (after business hours): documented in this encounter Discharge Instructions * Patient Instructions* Jaiden Faustin MD - 10/07/2016 2:08 PM EST DISCHARGE INSTRUCTIONS WOUND CARE: Keep dressing clean dry and intact. Wear splint at all times You must avoid sunlight exposure to your incision(s). Do not use any over the counter ointments on the incisions postoperatively unless instructed by your provider. SHOWERING: May shower but cannot get splint wet. Do not submerge your surgical site under water until cleared by your provider. ACTIVITIES: Minimize contact to affected area(s). No heavy lifting until seen by MD. No driving or operating heavy machinery when on narcotics. Keep arm elevated to decrease swelling DIET: Slowly advance diet as tolerated to a regular healthy diet. DO???S AND DON???TS FOR THE NEXT 6 [address] not drive a motor vehicle for 1-2 weeks or until you can handle the steering wheel without discomfort. Do not drive while taking your narcotic. Do not smoke or be around anyone who smokes for 2 weeks after your surgery this is because smoking delays healing and can lead to infection. Do not lift more than 5 pounds or bend at the waist to lift for 6 weeks. Do not participate in strenuous activities such as running or aerobics for 6 weeks. Do resume walking at a gentle pace. Protect your incisions from the sun for 6 months to 1 year. CALL MD IF: Your incision opens up. You have signs of infection that include: a temperature over 100.4F or 38C, redness or warmth spreading away from the incision lines after the first 48 hours, you notice a yellow pus-like or foul smelling drainage larger than dime size from the incisions or drainage sites, you feel increased pain that is not relived by your pain medicine, you have swelling in one breast more than the other. During office hours: Monday - Monday 8am-5pm call [phone]. On weekends or after hours call [phone] and ask the mold filling operator to page the plastic surgery resident technician semiconductor development. FOLLOW UP: Future Appointments and Orders Future Appointments Provider Department Dept Phone 10/12/2016 10:30 AM Andre Marroquin MD Plastic Surgery at [facility] [phone] 10/12/2016 11:00 AM Mikel Diehl OT Occupational Therapy at [facility] [phone] 10/20/2016 11:30 AM Jo Ordaz MD Dermatology at [facility] [phone] MEDICATIONS: Your Medications UNREVIEWED medications - Discuss With Your Provider Dose Details acetaminophen 500 mg Tab Commonly known as: TYLENOL Take 2 tablets by mouth every 8 hours as needed for Pain. 1000 mg Quantity: 30 tablet Refills: 1 ADVIL 200 mg Tab Take 600 mg by mouth daily. Generic drug: ibuprofen 600 mg Refills: 0 amLODIPine 10 mg Tab Commonly known as: NORVASC Take 1 tablet by mouth daily. 10 mg Quantity: 90 tablet Refills: 3 aspirin 81 mg Chew Take 81 mg by mouth daily. 81 mg Quantity: 30 tablet Refills: 3 esomeprazole 40 mg Cpdr Commonly known as: NexIUM Take 1 capsule by mouth daily. 40 mg Quantity: 90 capsule Refills: 3 fosinopril 20 mg Tab Commonly known as: MONOPRIL Take 1 tablet by mouth daily. 20 mg Quantity: 90 tablet Refills: 3 lidocaine-prilocaine Crea Commonly known as: EMLA Apply topically as needed. Quantity: 30 g Refills: 2 loperamide 2 mg Cap Commonly known as: IMODIUM Take 2 mg by mouth 4 times daily as needed for Diarrhea. 2 mg Refills: 0 nitroGLYcerin 2 % Oint Commonly known as: NITROGLYN Place 0.5 inches onto the skin every 6 hours. 0.5 inch Refills: 0 sildenafil 20 mg Tab Commonly known as: REVATIO Refills: 0 Vitamin D 1,000 unit Cap Take 1 tablet by mouth daily. Generic drug: cholecalciferol (Vitamin D3) 1 tablet Refills: 0 vitamin E 400 unit Cap Take 400 Units by mouth daily. 400 Units Refills: 0 NARCOTICS: You may be given a prescription for a narcotic medication immediately following your surgery. Narcotics are prescribed for short-term use to help treat your pain. Surgical pain requiring narcotics will usually be greatly decreased 2-3 days after surgery & should be mild to absent by 10-14 days. We will only prescribe a narcotic pain reliever for 2 weeks following your surgery. This will be determined by your surgeon. Narcotics do not reduce inflammation and it is inflammation that is usually a major cause of pain after surgery. Narcotics have many side effects such as constipation, lightheadedness, dizziness, sedation, confusion, nausea and vomiting. Driving and the use of alcohol are not recommended while you are using narcotic pain medications. Non-steroidal anti-inflammatories (NSAIDS) such as aspirin, Aleve and ibuprofen (Advil, Motrin) aremedications that reduce pain and inflammation. If you find your pain is not adequately controlled with the prescribed dose of your narcotic pain medication, NSAIDS may be used 48 hours after surgery with your narcotic to help alleviate the pain caused by inflammation. As you progress through your post-operative period, your pain should decrease and the use of narcotic medications should be less necessary. To reduce your chance of side effects, it is recommended that you save your narcotic medication for nighttime use and switch to NSAIDS or Acetaminophen (Tylenol) during the day. Alternative means of pain relief such as rest and relaxation, positioning, as well as decreasing stimulants such as coffee, tea, soft drinks, and nicotine may also help to alleviate pain. If you continue to experience significant pain 4-5 days after your procedure, it may be necessary to be re-evaluated by your physician. PRESCRIPTION RENEWALS: Renewal requests should be called in to our prescription line at [phone]. Narcotic renewals may be requested from 8am-4pm Monday through Monday. Due to patient safety, narcotic renewals will not be honored after hours or on weekends. It is best to make your request 2-3 days before you run out of your medication as it will take at least 24 hours for physician approval and nurse follow-up. Note that certain prescriptions, such as Percocet, Oxycodone, Vicodin, & Hydrocodone can not becalled in to a pharmacy and must be picked up by the patient. CONTACT INFORMATION: During office hours: Monday through Monday 8 am to 5 pm Call [phone] On weekends or after hours: Call [phone] and ask the mold filling operator to page the Plastic Surgery Resident technician semiconductor development. Post-Op Plan: - Follow up in:10/12 with Sandra/nurse - Wound Check - Suture removal: None - Dressings: remove dressings (leave steri strips) documented in this encounter Medications at Time [...] 05/21/2013 01/09/2020 documented as of this encounter Progress Notes * Brittni Ruby RN - 10/08/2016 2:30 PM EST Patient discharge to home. IV removed, site benign. RN Discussed pain management with patient, paintolerable. Patient medicated prior to discharge. Patient has all belongings and supplies needed. Patient received After Visit Summary and prescriptions. These were reviewed, patient verbalizes understanding of AVS. All questions answered. Patient encouraged to call with questions or concerns. Pt became nauseous with emesis prior to wanting to leave. Zofran given, pt and boyfriend asked not to leave until nausea resolved. Pt waiting for about half hour to leave and reported no nausea at this time to RN. Patient discharged to home with family. * Chaz Youssef MD - 10/07/2016 8:45 PM EST General Surgery Post-Operative Note Amber Wells is a 56 y.o. female who is s/p ulnar artery evaluation. Patient states that pain is well controlled, was 7-06/29 now 04/29. Denies cp/sob, n/v/d. Only complaint is the amount of noise in the PACU, would like to rest. Otherwise doing well. Says she gets reynauds which makes her hands cold. Temp: [37.2 ??C (99 ??F)] Heart Rate: [67-86] Resp: [10-23] BP: (148-164)/(65-77) SpO2: [90 %-100 %] Heart Rate from SPO2: [66 bpm-79 bpm] Intake/Output Summary (Last 24 hours) at 10/07/16 2134 Last data filed at 10/07/16 1752 Gross per 24 hour Intake 800 ml Output 100 ml Net 700 ml No results for input(s): WBC, HGB, HCT, PLATELET, PT, INR, PTT in the last 72 hours. Recent Labs 10/07/16 1126 K 4.7 Physical Examination Gen: Alert, arousable and cooperative Cardio: RRR. No additional sounds or murmurs heard Pulm:NVBS heard in all areas. ABD: soft, non tender and not distended. Extremities: Right arm in splint and PERRY wrap, moving all fingertips, adequate sensation in all fingertips. Some darkening of skin near MCPs/PIPs with all DIPs pink. Good capillary refill on all fingertips. Hands feel somewhat cool bilaterally. Assessment and plan: - -progressing well post-operatively -continue current management documented in this encounter H&P Notes * Rossi Bourgeois PA - 10/07/2016 1:56 PM EST 24 hour interval history and physical exam: Amber Wells's condition unchanged since H&P originally performed Denies any new ED visits, hospitalizations, trauma, or new events. Has been overall doing well. Patient Vitals for the past 24 hrs: BP Temp Temp src Pulse Resp SpO2 Height Weight 10/07/16 1320 128/63 37 ??C (98.6 ??F) Temporal 70 16 100 % 170.2 cm (5' 7) 61.2 kg (135 lb) On RA Nonlabored respirations RRR CTAA Site marked AP 56 y.o. 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 After extensive discussion of the risks, benefits, and alteratives of surgical intervention, the patient consented to proceed with surgery. IV antibiotics ordered Proceed to OR documented in this encounter Miscellaneous Notes * Plan of Care - Otoniel Pemberton RN - 10/08/2016 6:06 AM EST Problem: Patient Care Overview Goal: Plan of Care Review Outcome: Ongoing (Interventions Implemented as Appropriate) 10/07/16 2215 10/08/16 0600 Plan of Care Review Progress -- improving Coping/Psychosocial Plan Of Care Reviewed With patient;significant other -- OUTCOME EVALUATION NOTE: OUTCOME SUMMARY: Patient came to floor from PACU following surgery to remove a vein and splice into artery to restore/improve flow to right arm. Wound unable to visualize due to dressing. Patients arm does not appearto be swollen and patient does have full use of fingers. Pain at a 4 when patient arrived but went up and asked for oxy x1. Patient up to bathroom to void and had large one. PLAN MOVING FORWARD: Monitor arm swelling and pain. INDIVIDUALIZED FALL PREVENTION INTERVENTIONS: Patient-specific fall risk factors per assessment: [current deficits]: Weakness, IV Assistance [level of assistance required for transfers and ambulation]: SBA Supervision [direct monitoring required during toileting and ADLs]: Moderate assistance with all activities at this time. Surveillance [continuous indirect monitoring]: q1hr reymundo thompson Patient-specific fall prevention interventions for sensory deficits provided, if applicable: [X] N/A CPG GOAL OUTCOME EVALUATION: * Op Note - Andre Marroquin MD - 10/07/2016 6:05 PM EST Operative Note ?? Patient Name: Amber Wells : [id number] MR#: [id number] ?? Case Date: 10/07/2016 ?? Surgeon: Surgeon(s) and Role: * Andre Marroquin MD - Primary * Jaiden Faustin MD - Resident-Surgeon Bon * Marty Roa MD - Resident-Surgeon Bon ?? Preoperative diagnosis: Scleroderma, Raynauds ?? Postoperative diagnosis: Scleroderma, Raynauds ?? Procedure(s): @BYPASS GRAFT, BRACHIAL-ULNAR OR RADIAL W\VEIN (VASC) ?? Anesthesia: General ?? Findings: Right ulnar artery (2.5 mm) to right cephalic vein (2.5 mm) end to end anastomosis using 9-0 nylon. ?? Complications: None ?? Estimated Blood Loss: 200 ml ?? Drains: None ?? Disposition: awakened from anesthesia, extubated and taken to the recovery room in a stable condition, having suffered no apparent untoward event. ?? Condition: doing well without problems ?? (Please see the Surgical Encounter Summary for any Implant and Specimen details pertinent to this patient.) ?? Infection Bundle used? N/A INDICATION FOR PROCEDURE: Ms. Wells is a 56-year-old female with scleroderma and Raynaud's who continues to have symptoms of discoloration and pain along with ulceration to her right hand. An MRI was obtained which shows near absence of superficial palmar arch and occluded radial artery at the level of the wrist. It was discussed in clinic that she would benefit from a ulnar artery transfer into cephalic vein. DESCRIPTION OF PROCEDURE: The risks, benefits, and alternatives were discussed with the patient prior to the procedure. She was brought to the operating room and placed in the supine position with the right arm out. She was identified when she entered into the room. SCD's were on and functioning prior to intubation. She underwent general anesthesia. She was prepped and draped in the usual sterile fashion. A timeout was performed. We then evaluated the patient's right arm using a Doppler prior to prepping the patient, we did Doppler and angelo out the ulnar artery, radial artery, as well as the cephalic vein from the antecubital fossa into the dorsum of the hand. We then used an esmarch to exsanguinate the arm and a tourniquet was turned on to 250 mmHg. A scalpel was then used to make a full thickness incision through the skin along the cephalic vein on the right forearm, starting from the antecubital fossa to the dorsum of the hand. With blunt dissection, we were able to dissect the cephalic vein. Any side branches were ligated using small clips. As we went distally toward the wrist, the cephalic vein split into an ulnar and radial branch. The ulnar branch was smaller, so this one was ligated as well. The cephalic vein was further dissected circumferentially. We then elevated the brachialradialis through this incision and this was retracted ulnarly to expose the radial artery along with the brachial and ulnar arteries. Scissors were then used to dissect out the ulnar artery. A vascular clip was then placed onto the ulnar artery which was about 6 cm distal from its takeoff from the brachial artery. Scissors were then used to divide the ulnar artery distal to the clamp and prior to this, we did place two medium clips on the distal end at the ulnar artery. We then turned our attention back to the right cephalic vein. The right cephalic vein was divided just distal to the antecubital fossa and a hemoclip was placed proximal to our division. The cephalic vein was then irrigated with heparinized saline. Distally in the cephalic vein, we removed a clip from one of the side branches and inserted a small valvulotome to remove any existing valves. More distally, this part of the cephalic vein was too small to use the valvulotome, so a small longitudinal incision was made along another branch and a valve was excised using sharp scissors. We also passed the valvulotome distally through this longitudinal incision of the cephalic vein to attempt to remove any further valves. The venotomy was then closed longitudinally with a running 9-0 nylon suture. The ulnar artery proximal stump was also irrigated with heparinized saline. The ulnar artery and cephalic vein ends were cleaned of any fatty tissue and adventitia. A double opposing Acland clamp was applied to the ulnar artery, as well as the transposed cephalic vein end, so they lay next to each other without tension. An anastomosis was performed between the right ulnar artery and the cephalic vein in an end to end fashion using interrupted 9-0 nylon. Prior to closure, we did irrigate with heparinized saline. Clamps were removed. There was good flow through the ulnar artery into the cephalic vein after the tourniquet was turned down. Total tourniquet time was less than 2 hours. There was no leak at the anastomosis. There was a leak more distally on the cephalic vein, where we repaired the longitudinal venotomy. We then used 9-0 nylon and performed repair with interrupted sutures at this location. There was good flow into the cephalic vein. There was a normal strip test. Distally along the wrist and dorsum of the hand, the vessels were relatively small. It took some time for perfusion of these vessels to occur, which was confirmed by Doppler. We then applied warm saline fluid on top of the vessels to keep them moist, as well as some 0.25% Marcaine to help with some vasodilation. The wound was irrigated. Hemostasis was obtained. During dissection, we also took care not to damage the lateral antebrachial cutaneous nerve which was parallel to the cephalic vein. The wound was temporarily closed with greg and then 4-0 Vicryl sutures were used to closed the dermis and deeper layers. The skin was closed with running 5-0 Chromic suture. 4x4s were applied followed by Kerlix and an PERRY and tape. The patient tolerated the procedure well. No complications. All needle, lap and sponge counts were correct at the end of the case. The patient had good perfusion of the hand at the end of the case. Attestation: Case Date: 10/07/2016 I was present and I participated during the entire procedure (does not need to include opening and closing). Andre Marroquin MD 10/11/2016 * Brief Op Note - Andre Marroquin MD - 10/07/2016 6:03 PM EST Brief Operative Note Patient Name: Amber Wells : [id number] MR#: [id number] Case Date: 10/07/2016 Surgeon: Surgeon(s) and Role: * Andre Marroquin MD - Primary * Jaiden Faustin MD - Resident-Surgeon Bon * Marty Roa MD - Resident-Surgeon Bon Preoperative diagnosis: ULNAR ARTERY to cephalic vein bypass Postoperative diagnosis: ULNAR ARTERY to cephalic vein bypass Procedure(s): @BYPASS GRAFT, BRACHIAL-ULNAR OR RADIAL W\VEIN (VASC) Anesthesia: General Findings: Right ulnar artery (2.5 mm) to right cephalic vein (2.5 mm) end to end anastomosis using 9-0 nylon. Complications: None Estimated Blood Loss: 200 ml Drains: None Disposition: awakened from anesthesia, extubated and taken to the recovery room in a stable condition, having suffered no apparent untoward event. Condition: doing well without problems (Please see the Surgical Encounter Summary for any Implant and Specimen details pertinent to this patient.) Infection Bundle used? N/A documented in this encounter Plan of Treatment Upcoming Encounters Date Type Department Care Team (Late st Contact Info) Description 10/07/2024 11:30 AM EST Office Visit Dermatology at [address] [phone] Jo Ordaz MD [facility] [place] [address] 12/13/2024 11:30 AM EST Appointment [place] [phone] 12/13/2024 1:00 PM EST Office [place] [phone] Kiet Pardo MD [facility] [place] [address] documented as of this encounter Procedures Procedure Name Priority Date/Time Associated Diagnosis Comments ECG SCAN 10/09/2016 12:00 AM EST @BYPASS GRAFT, BRACHIAL-ULNAR OR RADIAL W\VEIN (VASC) (WRVU 24.13) 10/07/2016 2:31 PM EST ULNAR ARTERY EVALUATION POTASSIUM STAT 10/07/2016 11:26 AM EST documented in this encounter Results * SCAN DOC: ECG (10/09/2016 12:00 AM EST) Scanning Provider MEDIA MGR SCAN EXT O RDR/RSLT * Potassium (10/07/2016 11:26 AM EST) Potassium 4.7 3.5 - 5.0 mmol/L [facility] Comment: Please note: ??Patients with WBC >100,000 may have falsely elevated Potassium levels. ??For accurate Potassium quantification in these patients send serum separator tube (gold top) for subsequent determinations. ??Contact the Clinical Chemistry Laboratory if there are any questions. Blood specimen (specimen) 10/07/2016 11:26 AM EST 10/07/2016 11:33 AM EST Narrative Resulting Agency Comment Spec In Lab Andre Marroquin MD CHEMISTRY ORDERABLE S [facility] [place] [address] documented in this encounter Visit Diagnoses Not on filedocumented in this encounter Administered Medications Inactive Administered Medications - up to 3 most recent administrations Medication Order MAR Action Action Date Dose Rate Site aspirin chewable tablet 81 mg 81 mg, Oral, DAILY, First dose on 10/08/16 at 0900, Until Discontinued, Routine Given 10/08/2016 9:21 AM EST 81 mg ceFAZolin (ANCEF) 1g in dextrose 5% 50mL 1,000 mg (1 g), Intravenous, EVERY 8 HOURS, 2 doses, First dose on Mon10/07/16 at 1900, Last dose on Mon10/08/16 at 0300, Administer over 30 Minutes, *Beta-lactam based antibiotics (eg. Ampicillin, Cefazolin, Aztreonam) should be administered within 4 hours of the preceding intraoperative dose. *Vancomycin, Flouroquinolones, Clindamycin, Gentamicin, and Metronidazole should be administered within 8 hours of the preceding intraoperative dose., Recovery (Recovery-Hospital Unit), Indication for (Active or Suspected): Prophylaxis Given 10/08/2016 2:26 AM EST 1,000 mg 100 mL/hr Given 10/07/2016 6:50 PM EST 1,000 mg 100 mL/hr docusate sodium (COLACE) capsule 100 mg 100 mg, Oral, 2 TIMES DAILY, First dose on Mon10/07/16 at 2300, Until Discontinued, Routine Given 10/08/2016 9:23 AM EST 100 mg Given 10/07/2016 10:56 PM EST 100 mg enoxaparin (LOVENOX) injection 40 mg 40 mg, Subcutaneous, NIGHTLY, First dose on Mon10/07/16 at 2300, Until Discontinued, Routine Given 10/07/2016 10:57 PM EST 40 mg HYDROmorphone (DILAUDID) syringe 0.2-0.4 mg 0.2-0.4 mg, Intravenous, EVERY 5 MIN PRN, Pain, Starting on Mon10/07/16 at 1741, Until Mon10/07/16 at 2037, For moderate pain (4-6) give: 0.2 mg every 5 minute prn For severe pain (7-10) give: 0.4 mg every 5 minutes prn Maximum dose: 4 mg per hour Hold for respiratory rate less than 10 per minute., PACU Recovery Given 10/07/2016 8:19 PM EST 0.4 mg Given 10/07/2016 7:39 PM EST 0.4 mg Given 10/07/2016 7:27 PM EST 0.4 mg lactobacillus (BACID) tablet 1 tablet 1 tablet, Oral, DAILY, First dose on Mon10/08/16 at 0900, Until Discontinued, Routine Given 10/08/2016 9:22 AM EST 1 tablet lisinopril (PRINIVIL;ZESTRIL) tablet 20 mg 20 mg, Oral, DAILY, First dose on Mon10/08/16 at 0900, Until Discontinued, Formulary auto-substitution for Fosinopril 20 mg po daily., Routine LORazepam (ATIVAN) tablet 2 mg 2 mg, Oral, NIGHTLY PRN, Starting on Mon10/07/16 at 2152, Until Mon10/08/16 at 1635, Anxiety, Insomnia, Routine Given 10/08/2016 9:18 AM EST 2 mg Given 10/07/2016 11:14 PM EST 2 mg ondansetron (ZOFRAN) injection 4 mg 4 mg, Intravenous, EVERY 8 HOURS PRN, Starting on Mon10/07/16 at 2152, Until 10/08/16 at 1635, Nausea, May repeat times one in 30 minutes if ineffective. If multiple antiemetics are ordered, use ondanstron first, Recovery (Recovery-Hospital Unit) Given 10/07/2016 11:04 PM EST 4 mg ondansetron (ZOFRAN) tablet 4 mg 4 mg, Oral, EVERY 8 HOURS PRN, Starting on Mon10/07/16 at 2152, Until 10/08/16 at 1635, Nausea, Vomiting, If multiple antiemetics are ordered, use ondansetron first. PO Preferred. If patient unable to take PO, may give IV if ordered. May repeat times one in 45 minutes if ineffective., Recovery (Recovery-Hospital Unit), Routine Given 10/08/2016 1:07 PM EST 4 mg oxyCODONE (ROXICODONE) immediate release tablet 5 mg 5 mg, Oral, EVERY 4 HOURS PRN, Starting on Mon10/07/16 at 2152, Until 10/08/16 at 1635, Pain, moderate pain 4-7, Routine Given 10/08/2016 1:08 PM EST 5 mg Given 10/08/2016 9:18 AM EST 5 mg Given 10/07/2016 11:14 PM EST 5 mg pantoprazole (PROTONIX) tablet 40 mg 40 mg, Oral, DAILY, First dose on 10/08/16 at 0900, Until Discontinued, DO NOT CRUSH OR OPEN Formulary auto-substitution for Esomeprazole (Nexium) 40 mg po daily. Given 10/08/2016 9:24 AM EST 40 mg sodium chloride 0.9% infusion 100 mL/hr, Intravenous, CONTINUOUS, Starting on Mon10/07/16 at 1900, Until 10/08/16 at 0659, Recovery (Recovery-Hospital Unit) New Bag 10/08/2016 6:30 AM EST 100 mL/hr 100 mL /hr New Bag 10/07/2016 6:47 PM EST 100 mL/hr 100 mL/hr documented in this encounter Active and Recently Administered Medications Times are shown in EST. Scheduled Medication Order 10/06/2016 10/07/2016 10/08/2016 amLODIPine (NORVASC) tablet 10 mg 10 mg, Oral, DAILY, First dose on Mon10/08/16 at 0900, Until Discontinued, Routine aspirin chewable tablet 81 mg 81 mg, Oral, DAILY, First dose on Mon10/08/16 at 0900, Until Discontinued, Routine 0921 (Given - Provider: Brittni Ruby, [place]) ceFAZolin (ANCEF) 1g in dextrose 5% 50mL (COMPLETED) 1,000 mg (1 g), Intravenous, EVERY 8 HOURS, 2 doses, First dose on Mon10/07/16 at 1900, Last dose on Mon10/08/16 at 0300, Administer over 30 Minutes, *Beta-lactam based antibiotics (eg. Ampicillin, Cefazolin, Aztreonam) should be administered within 4 hours of the preceding intraoperative dose. *Vancomycin, Flouroquinolones, Clindamycin, Gentamicin, and Metronidazole should be administered within 8 hours of the preceding intraoperative dose., Recovery (Recovery-Hospital Unit), Indication for (Active or Suspected): Prophylaxis 1850 (Given - Provider: Mary Rashid RN) 0226 (Given - Provider: Otoniel Pemberton RN) ceFAZolin (ANCEF) 2g in dextrose 5% 50 mL (CANCELED) 2 g, Intravenous, EVERY 8 HOURS, 3 doses, First dose on Mon10/07/16 at 1415, Last dose on Mon10/08/16 at 0615, Administer over 30 Minutes, Indication for (Active or Suspected): Prophylaxis 1415 (Due)1445 (Given - Provider: Kev Ordaz) docusate sodium (COLACE) capsule 100 mg 100 mg, Oral, 2 TIMES DAILY, First dose on Mon10/07/16 at 2300, Until Discontinued, Routine 2256 (Given - Provider: Otoniel Pemberton RN) 0923 (Given - Provider: Brittni Ruby, [place]) enoxaparin (LOVENOX) injection 40 mg 40 mg, Subcutaneous, NIGHTLY, First dose on Mon10/07/16 at 2300, Until Discontinued, Routine 2257 (Given - Provider: Otoniel Pemberton RN) lactobacillus (BACID) tablet 1 tablet 1 tablet, Oral, DAILY, First dose on Mon10/08/16 at 0900, Until Discontinued, Routine 0922 (Given - Provider: Brittni Ruby, [place]) lisinopril (PRINIVIL;ZESTRIL) tablet 20 mg 20 mg, Oral, DAILY, First dose on 10/08/16 at 0900, Until Discontinued, Formulary auto-substitution for Fosinopril 20 mg po daily., Routine pantoprazole (PROTONIX) tablet 40 mg 40 mg, Oral, DAILY, First dose on 10/08/16 at 0900, Until Discontinued, DO NOT CRUSH OR OPEN Formulary auto-substitution for Esomeprazole (Nexium) 40 mg po daily. 0924 (Given - Provider: Brittni Ruby RN) sodium chloride 0.9 % flush 5 mL 5 mL, Intravenous, 2 TIMES DAILY, First dose on Mon10/07/16 at 2215, Until Discontinued, Recovery (Recovery-Hospital Unit), Routine 2215 (Not Given - Provider: Otoniel Pemberton RN - Reason: Contraindicated - Comment: fluids infusing) 0900 (Not Given - Provider: Brittni Ruby RN - Reason: See comment - Comment: IV infusing) Continuous Medication Order 10/06/2016 10/07/2016 10/08/2016 sodium chloride 0.9% infusion 100 mL/hr, Intravenous, CONTINUOUS, Starting on Mon10/07/16 at 1900, Until 10/08/16 at 0659, Recovery (Recovery-Hospital Unit) 1847 (New Bag - Provider: Mary Rashid RN) 0630 (New Bag - Provider: Otoniel Pemberton RN) PRN Medication Order 10/06/2016 10/07/2016 10/08/2016 bisacodyl (DULCOLAX) suppository 10 mg 10 mg, Rectal, DAILY PRN, Starting on Mon10/07/16 at 2152, Until 10/08/16 at 1635, Constipation, Administer if needed per patient's routine or if no bowel movement within 48 hours to achieve: 1) One bowel movement at least every 48 hours, AND 2) Without straining. If multiple bowel medications ordered, consider adding if docusate or milk of magnesia not sufficient., Routine HYDROmorphone (DILAUDID) injection 0.2 mg 0.2 mg, Intravenous, EVERY 2 HOURS PRN, Starting on Mon10/07/16 at 2152, Until 10/08/16 at 1635, Pain, pain not relieved by oral oxycodone, Routine HYDROmorphone (DILAUDID) syringe 0.2-0.4 mg (CANCELED) 0.2-0.4 mg, Intravenous, EVERY 5 MIN PRN, Pain, Starting on Mon10/07/16 at 1741, Until Mon10/07/16 at 2037, For moderate pain (4-6) give: 0.2 mg every 5 minute prn For severe pain (7-10) give: 0.4 mg every 5 minutes prn Maximum dose: 4 mg per hour Hold for respiratory rate less than 10 per minute., PACU Recovery 1837 (Given - Provider: Mary Rashid RN)1847 (Given - Provider: Mary Rashid RN)1914 (Given - Provider: Mary Rashid RN)1926 (Given - Provider: Pauline Ruiz, [place])1938 (Given - Provider: Pauline Ruiz, [place])2019 (Given - Provider: Pauline Ruiz, [place]) lidocaine (XYLOCAINE) 10 mg/mL (1 %) injection 3 mg 3 mg (0.3 mL), Subcutaneous, ONCE PRN, 1 dose, Starting on Mon10/07/16 at 2152, Until 10/08/16 at 0951, for discomfort with PIV insertion, Recovery (Recovery-Hospital Unit), Routine LORazepam (ATIVAN) tablet 2 mg 2 mg, Oral, NIGHTLY PRN, Starting on Mon10/07/16 at 2152, Until 10/08/16 at 1635, Anxiety, Insomnia, Routine 2314 (Given - Provider: Otoniel Pemberton RN) 0918 (Given - Provider: Brittni Ruby RN) ondansetron (ZOFRAN) injection 4 mg(Linked Group 1) 4 mg, Intravenous, EVERY 8 HOURS PRN, Starting on Mon10/07/16 at 2152, Until 10/08/16 at 1635, Nausea, May repeat times one in 30 minutes if ineffective. If multiple antiemetics are ordered, use ondanstron first, Recovery (Recovery-Hospital Unit) 2304 (Given - Provider: Otoniel Pemberton RN) 1307 (See Alternative - Provider: Brittni Ruby, [place]) ondansetron (ZOFRAN) tablet 4 mg(Linked Group 1) 4 mg, Oral, EVERY 8 HOURS PRN, Starting on Mon10/07/16 at 2152, Until 10/08/16 at 1635, Nausea, Vomiting, If multiple antiemetics are ordered, use ondansetron first. PO Preferred. If patient unable to take PO, may give IV if ordered. May repeat times one in 45 minutes if ineffective., Recovery (Recovery-Hospital Unit), Routine 2304 (See Alternative - Provider: Otoniel Pemberton RN) 1307 (Given - Provider: Brittni Ruby RN) oxyCODONE (ROXICODONE) immediate release tablet 10 mg 10 mg, Oral, EVERY 4 HOURS PRN, Starting on Mon10/07/16 at 2152, Until 10/08/16 at 1635, Pain, severe pain 8-10, Routine oxyCODONE (ROXICODONE) immediate release tablet 5 mg 5 mg, Oral, EVERY 4 HOURS PRN, Starting on Mon10/07/16 at 2152, Until 10/08/16 at 1635, Pain, moderate pain 4-7, Routine 2314 (Given - Provider: Otoniel Pemberton RN) 0918 (Given - Provider: Brittni Ruby RN)1308 (Given - Provider: Brittni Ruby RN) sodium chloride 0.9 % flush 5-20 mL 5-20 mL, Intravenous, EVERY 1 MIN PRN, Starting on Mon10/07/16 at 2152, Until 10/08/16 at 0951, flush, Flush pertains to all indwelling lines. Flush per protocol found in the job aid using the link provided on this medication record., Recovery (Recovery-Hospital Unit), Routine Linked Groups Order Group 1: ondansetron (ZOFRAN) tablet 4 mgJump to med 4 mg, Oral, EVERY 8 HOURS PRN, Starting on Mon10/07/16 at 2152, Until 10/08/16 at 1635, Nausea, Vomiting, If multiple antiemetics are ordered, use ondansetron first. PO Preferred. If patient unable to take PO, may give IV if ordered. May repeat times one in 45 minutes if ineffective., Recovery (Recovery-Hospital Unit), Routine Or ondansetron (ZOFRAN) injection 4 mgJump to med 4 mg, Intravenous, EVERY 8 HOURS PRN, Starting on 10/07/16 at 2152, Until 10/08/16 at 1635, Nausea, May repeat times one in 30 minutes if ineffective. If multiple antiemetics are ordered, use ondanstron first, Recovery (Recovery- Hospital Unit) documented in this encounter Care Teams Packing Shed Supervisor Relationship Specialty Start Date End Date Yaritza Pierre MD [address] [place] [id number] PCP - General 03/27/12 11/27/18 documented as of this encounter
--- OUTSIDE RECORDS SUMMARY | 2024-09-14 13:09 | XMS_ITS | Encounter Summary ---
[place] [address] Care Team Providers Care Broadcast News Producer Name Role Phone Yaritza Pierre MD Primary Care Provider [phone] Reason for Visit * Reason Onset Date Comments Other 01/11/2017 Non-Healing Ulce r Encounter Details Date Type Department Care Team (Late st Contact Info) Description 01/11/2017 Telephone [place] [phone] Gem Richey RN Other (Non-Healing Ulcer) Social History Tobacco Use Types Packs/Day Years [...] Telephone Encounter - Gem Richey RN - 01/16/2017 9:53 AM EST It looks like her amlodipine dose is at 10 mg per day. If that is true I don't think she should increase that any higher. i can't tell from her med list how much sildenafil she is taking. Can you find out? Thanks! Yu Left message for Amber to RTC to nurse. * Telephone Encounter - Gem Richey RN - 01/11/2017 12:00 PM EST Amber calls to report that she has an Ulcer that is not healing since October. RTC to Amber and left a message for her to RTC to nurse. I spoke with Amber and she reports an open Non-healing ulcer on her thumb about 1/10th of an inch. Amber is wondering if she can increase her Sildenafil or Norvasc as she states she has done in the past. documented in this encounter Plan of Treatment Upcoming Encounters Date Type Department Care Team (Late st Contact Info) Description 10/07/2024 11:30 AM EST Office Visit Dermatology at [facility] [address] [place] [address] Jo Ordaz MD [facility] [place] [address] 12/13/2024 11:30 AM EST Appointment [place] [phone] 12/13/2024 1:00 PM EST Office [place] [phone] Kiet Pardo MD [facility] [place] [address] documented as of this encounter Visit Diagnoses Not on filedocumented in this encounter Care Teams Broadcast News Producer Relationship Specialty Start Date End Date Yaritza Pierre MD [address] [place] [id number] PCP - General 03/27/12 11/27/18 documented as of this encounter
--- OUTSIDE RECORDS SUMMARY | 2024-09-14 13:09 | XMS_ITS | Encounter Summary ---
Author Organization [facility] [place] [address] Care Team Providers Care Block Setter Gypsum Name Role Phone Yaritza Pierre MD Primary Care Provider [phone] Encounter Details Date Type Department Care Team (Late st Contact Info) Description 07/27/2017 Abstract [place] [address] Kristin Capellan Social History Tobacco Use Types [...] AM EST Office Visit Dermatology at [address] [place] [address] Jo Ordaz MD [facility] [place] [address] 12/13/2024 11:30 AM EST [place] [address] 12/13/2024 1:00 PM EST Office [place] [address] Kiet Pardo MD [facility] [place] [address] documented as of this encounter Visit Diagnoses Not on filedocumented in this encounter Care Teams Block Setter Gypsum Relationship Specialty Start Date End Date Yaritza Pierre MD [address] [place] [address] PCP - General 03/27/12 11/27/18 documented as of this encounter
--- OUTSIDE RECORDS SUMMARY | 2024-09-14 13:09 | XMS_ITS | Encounter Summary ---
[place] [address] Care Team Providers Care Rail Transportation Operator Name Role Phone Yaritza Pierre MD Primary Care Provider [phone] Reason for Referral * Diagnostic Test (Routine) - Specialty Diagnoses / Procedures Referred By Wander hernandez Referred To Contact Radiology Diagnoses Desmoid fibromatosis Procedures MRI Upper Extremity Non Joint wwo Contrast Breanna Ordoñez MD [facility] [place] [address] [place] [address] Referral ID Status Reason Start Date Expiration Date Visits Requested Visits Authorized [id number] Specialty Service Requested 10/03/2016 10/03/2017 1 1 Reason for Visit * Reason Comments Follow-up Encounter Details Date Type Department Care Team (Late st Contact Info) Description 09/23/2016 10:30 AM EDT Office [place] [address] Breanna Ordoñez MD [facility] [place] [address] Desmoid fibromatosis Social History Tobacco [...] - Inhaled Oxygen Concentration - - Weight 62.4 kg (137 lb 9.1 oz) 09/23/2016 11:18 AM EDT Height - - Body Mass Index 21.55 08/04/2016 12:43 PM EDT documented in this encounter Progress Notes * Breanna Ordoñez MD - 09/23/2016 10:30 AM EDT Surgical Oncology Follow up Note 12 month follow up Last seen 09/18/15 Desmoid on the back HPI:Mrs Wells is a [...] 12 mth follow up. She is now 2 years out from her multiple resections. She reports that her back continues to feel much better at But has pain after doing activity such as walking. This is similar to her symptoms a year ago. This is not better or worse. She has not noticed anygrowth. No lumps or bumps in her back. Since I last saw her she has developed vascular issues with her hands. She has undergone surgery and has more planned. She has her surveillance MRI of her back today. 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 MEDICATIONS: Current Outpatient Prescriptions on File Prior to Visit Medication Sig Dispense Refill ??? fosinopril (MONOPRIL) 20 mg Tablet Take 1 tablet by mouth daily. 90 tablet 3 ??? sildenafil (REVATIO) 20 mg Tablet ??? acetaminophen (TYLENOL) 500 mg Tablet Take 2 tablets by mouth every 8 hours as needed for Pain.30 tablet 1 ??? amLODIPine (NORVASC) 10 mg Tablet Take 1 tablet by mouth daily. 90 tablet 3 ??? esomeprazole (NEXIUM) 40 mg Capsule, Delayed Release(E.C.) Take 1 capsule by mouth daily. 90 capsule 3 ??? loperamide (IMMODIUM) 2 mg Capsule Take [...] onto the skin every 6 hours. ??? aspirin 81 mg Tablet, Chewable Take 81 mg by mouth daily. (Patient not taking: Reported on 09/23/2016) 30 tablet 3 No current facility-administered medications on file prior to visit. DRUG ALLERGIES: Allergies as of 07/25/2014 ??? (No Known Allergies) SOCIAL HISTORY: Pt lives with her partner, Mike. No children. 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 She is active and enjoys biking, swimming and kayaking. Smoking: Denies. Second hand smoker from Mike ETOH: 1 glass wine/wk FAMILY HISTORY: sister with melanoma PHYSICAL EXAMINATION: Constitutional: This is a thin female in no apparent distress Wt 62.4 kg (137 lb 9.1 oz) LMP 11/27/2014 BMI 21.55 kg/m2 Eyes: anicteric, extra ocular movements are intact Neuro: No focal deficits. Hearing and speech intact Psych: the patient is alert and oriented. Normal affect. Soft tissue exam: upper back to the left of the spine is an 8cm incision. Skin is flat without evidence of seroma. No erythema. No definite firm or hard areas felt. Healing quite well. Skin: warm, thick and shiny, non-icteric. Fingers are white with taught skin. MRI done today 09/23/16 On my review, there is no new [...] 12 months or sooner is symptoms arise Breanna Ordoñez MD Surgical Oncology documented in this encounter Plan of Treatment Upcoming Encounters Date Type Department Care Team (Late st Contact Info) Description 10/07/2024 11:30 AM EST Office Visit Dermatology at [facility] [address] [place] [address] Jo Ordaz MD [facility] [place] [address] 12/13/2024 11:30 AM EST [place] [address] 12/13/2024 1:00 PM EST Office Visit Rheumatology at [facility] [place] [address] Kiet Pardo MD [facility] [place] [address] documented as of this encounter Results * MRI Upper Extremity Non Joint wwo Contrast (10/06/2017 12:25 PM EST) Anatomical Region Laterality Modality Shoulder, Arm, Elbow, Forearm, Wrist, Hand Magnetic Resonance Impressions 10/09/2017 5:17 PM EST 1. ??Unchanged superficial postoperative thin band of signal ??alteration in the left paraspinal muscles. 2. ??No chest wall mass. 3. ??Stable abnormal linear soft tissue enhancement deep to the subscapularis muscle outlining the posterior chest wall, posttreatment changes versus slow-growing recurrence. Consider serial follow-up. I have personally reviewed the image(s) and the residents interpretation and agree with the findings, Debbie Briones at 10/09/2017 5:17 PM Narrative 10/09/2017 5:17 PM EST EXAMINATION: MRI UPPER EXTREMITY NON JOINT WWO CONTRAST CLINICAL HISTORY: upper back desmoid resection in 2013. surveillance. evaluate for recurrence. TECHNIQUE: MRI of the left upper back without and with 6 cc of Gadavist intravenous contrast. COMPARISON: MRI of the thoracic spine 02/06/2017 and MRI of the upper back 09/23/2016 FINDINGS: Grossly unchanged superficial postoperative collection in the subcutaneous fat of the left paraspinal region which measures approximately 3.0 cm x 0.6 cm, best evaluated on sagittal T1 postcontrast imaging (series 15 image 89). Again seen is the enhancing tissue deep to the scapula better visualized on coronal imaging (series 14 image 86). The enhancing tissue is unchanged in size when compared to most recent prior on 09/23/2016. There is possibly associated diffusion restriction (series 6 image 32). No chest wall invasion. No pleural effusion. Prominent left axillary lymph nodes are unchanged in size and appearance. No osseous abnormalities. Procedure Note Debbie Briones MD - 10/09/2017 EXAMINATION: MRI UPPER EXTREMITY NON JOINT WWO CONTRAST CLINICAL HISTORY: upper back desmoid resection in 2013. surveillance.evaluate for recurrence. TECHNIQUE: MRI of the left upper back without and with 6 cc of Gadavist intravenous contrast. COMPARISON: MRI of the thoracic spine 02/06/2017 and MRI of the upper back 09/23/2016 FINDINGS: Grossly unchanged superficial postoperative collection in the subcutaneousfat of the left paraspinal region which measures approximately 3.0 cm x 0.6cm, best evaluated on sagittal T1 postcontrast imaging (series 15 image 89). Again seen is the enhancing tissue deep to the scapula better visualizedon coronal imaging (series 14 image 86). The enhancing tissue is unchanged insize when compared to most recent prior on 09/23/2016. There is possiblyassociated diffusion restriction (series 6 image 32). No chest wall invasion. Nopleural effusion. Prominent left axillary lymph nodes are unchanged in size and appearance.No osseous abnormalities. IMPRESSION 1. Unchanged superficial postoperative thin band of signal alteration inthe left paraspinal muscles. 2. No chest wall mass. 3. Stable abnormal linear soft tissue enhancement deep to thesubscapularis muscle outlining the posterior chest wall, posttreatment changes versus slow-growing recurrence. Consider serial follow-up. I have personally reviewed the image(s) and the residents interpretationand agree with the findings, Debbie Briones at 10/09/2017 5:17 PM Breanna Barreto MD [facility] documented in this encounter Visit Diagnoses Diagnosis Desmoid fibromatosis Other benign neoplasm of connective and other soft tissue of unspecified site Desmoid fibromatosis Other benign neoplasm of connective and other soft tissue of unspecified site documented in this encounter Care Teams Rail Transportation Operator Relationship Specialty Start Date End Date Yaritza Pierre MD [address] [place] [address] PCP - General 03/27/12 11/27/18 documented as of this encounter
--- OUTSIDE RECORDS SUMMARY | 2024-09-14 13:09 | XMS_ITS | Encounter Summary ---
Author Organization [facility] Address [facility] [place] [address] Care Team Providers Care Cnc Operator Programmer Name Role Phone Yaritza Pierre MD Primary Care Provider [phone] Reason for Visit * Reason Comments Skin Check Encounter Details Date Type Department Care Team (Late st Contact Info) Description 10/20/2016 11:30 AM EST Office Visit Dermatology at [address] [address] Jo Ordaz MD [facility] [place] [address] Scleroderma; Scar; AK (actinic keratosis); Skin exam, screening for cancer Social History Tobacco Use Types Packs/Day Years [...] this encounter Patient Instructions * Patient Instructions* Ashley Payne - 10/20/2016 11:30 AM EST Actinic Keratoses You have been diagnosed today [...] weeks. Please contact the Dermatology clinic at [phone] if the lesion has not fully resolved after 6 weeks. If you are calling after hours, please call the mainline at [phone] and ask for the paratransit driver powertrain control systems engineer. Caring for Your Skin Sun Protection Exposure to ultraviolet (UV) light--from the sun or tanning beds--is the most common modifiable risk factor for skin cancer. In fact, most skin cancers are found in locations where sun exposure is highest (e.g., face, ears, and hands). Furthermore, UV exposure is associated with skin aging, including wrinkles, brown spots, and leathery skin. Recommendations ?? Generously apply a broad-spectrum water-resistant sunscreen with a Sun Protection Factor (SPF) of 30 or more to all exposed skin. ?? Reapply sunscreen every 2 hours, even on cloudy days, and after swimming or sweating. ?? Preferred sunscreens: Sunscreens work by either forming a physical or a chemical barrier to ultraviolet light. Zinc oxide or Titanium dioxide are physical barriers to the sun. We recommend sunscreens that contain at least one physical barrier. Look for these brands: Neutrogena, Blue Lizard, [place] Baby, Jasmina, Jackie HEARD. ?? Wear protective clothing. Long-sleeved shirts, pants, a wide-brimmed hat and sunglasses are all excellent choices. Some companies produce great, breathable SPF clothing (Coolibar, [employer], Monday Afternoons) ?? Seek shade. The sun's rays are strongest between 10a.m. And 4 p.m. Dry Skin Care Dry skin is more problematic in the winter, when the humidity is lower. Taking measures to maintainthe skin's moisture will decrease dryness and itching. Recommendations ?? Bathe in lukewarm water. Wash the skin gently (avoid vigorous scrubbing); use Dove or CeraVe soap to wash dirty areas. Avoid harsh soaps such as Cambodian Spring, Ivory, or Dial as these can be drying. ?? Immediately after bathing, apply a bland, preferably fragrance-free moisturizer to your skin. Ointments work better than creams, which work better than lotions. Look for the following brands: Vaseline 100% petroleum jelly, Vanicream, Neutrogena, CeraVe, Cetaphil, Aveeno, Lubriderm, or Eucerin. ?? For itchy areas, you can apply hydrocortisone 1% cream (rsul-vab-jcerzbg product) for 1-2 weeks.Do not use this medication on your face. Skin Cancer screening The incidence of skin cancer has increased dramatically in the past 20 years. The most common skin cancer types include basal cell carcinoma and squamous cell carcinoma. These often look like new moles, and they might be tender, scaly, or prone to bleeding. The most deadly form of skin cancer is melanoma, and it can affect people of all ages and skin types. Recommendations ?? We recommend performing a skin self-examination monthly to become familiar with your moles. Thiswill help you to detect new or changing moles earlier. ?? Remember the ABCDE's of melanoma: ?? Asymmetry - Melanoma tends to grow in an asymmetric (uneven) fashion ?? Border - The border in melanoma tends to be uneven or jagged ?? Color - Melanomas often have different colors (e.g., dark brown, black, red) ?? Diameter - Look for moles that are larger than 0.6 cm (the size of a pencil eraser) ?? Evolution - This is perhaps the most important feature. Any mole that is rapidly growing or changing should be evaluated. documented in this encounter Progress Notes * Jo Ordaz MD - 10/20/2016 11:30 AM EST DERMATOLOGY ESTABLISHED PATIENT CLINIC NOTE Date of service: 10/20/2016 Amber Wells : 1960 Provider: Jo Ordaz MD Chief Complaint Patient presents with ??? Skin Check SKIN HISTORY: ?? Sister history of melanoma ?? -Scleroderma -Lentigines -Benign Nevi -actinic keratosis - 05/06/2014- ---Pathologic Diagnosis--- A - Soft tissue mass, back, resection: [...] 0.1 cm of caudal margin (See Comment) HPI Amber Wells is a 56 y.o. year old female, established patient last seen by me on 04/20/16. Heretoday for a full skin exam. Has a rough spot on the forehead at the hairline which is sometimes tender. Patient has no other concerns today. Had recent revascularization procedure of right arm. Doingwell. MEDS: Current Outpatient Prescriptions Medication Sig Dispense Refill ??? aspirin 81 mg Tablet, Chewable Take 81 mg by mouth daily. 30 tablet 3 ??? ibuprofen (ADVIL) 200 mg Tablet Take 600 mg by mouth daily. ??? fosinopril (MONOPRIL) 20 mg Tablet Take [...] current facility-administered medications for this visit. ADR: No Known Allergies ROS General: feeling well Skin: denies other skin complaints EXAM General: NAD, pleasant, cooperative Skin: Patient was asked to disrobe to the level of their comfort. A total body skin exam except for areas covered by underwear was performed. This includes examination of the skin of the scalp, face, ears, neck, chest, axillae, left and right upper and lower extremities, hands and feet, back, abdomen, and except the areas covered by underwear were not examined per patient request. The right distal arm was not examined today as it was covered by a wrap s/p surgery. Significant skin findings: A. Central back x 1, left forehead at hairline x 1, right religion x 1: 0.2-0.3cm scaly irregular pink papules Total: 3 ?? B. Well-healed hypopigmented scars at sites above, back-no signs of recurrence C. Sclerodactyly, Taut skin on face, hands, and feet.-diffuse hyperpigmentation, no claire lines noted ASSESSMENT/PLAN: A. Actinic Keratosis Discussed premalignant potential of lesions with patient and counseled that destruction with liquidnitrogen therapy is recommended. Patient agreed to the procedure after discussing risks/benefits/alternatives of the procedure, including hypopigmentation and discomfort. Wound care reviewed. Procedure Note: Procedure: Destruction of lesion with cryotherapy. Number: 3 Location: as above Discussed procedure and expectations including risks (including risk of hypopigmentation) and benefits. Verbal consent obtained. Frozen with LN2, 15-30 second thaw time, TWICE. There were no complications; the patient tolerated the procedure well. Post-procedure expectations and wound care were reviewed. ?? B. Scar - H/O Desmoid fibromatosis-NER C. Scleroderma - systemic disease managed by rheumatology - The nature of sun-induced photo-aging and skin cancers is discussed. Sun avoidance, protective clothing, and the use of 30-SPF broad spectrum sunscreens is advised. Observe closely for skin damage/changes, and call if such occurs. Follow up: Return to clinic in 6 months for full skin exam, or sooner if needed. Patient scheduled upon exiting. Patient instructed to call with questions or concerns. I am documenting this encounter acting as the scribe for and in the presence of Dr. Ordaz: Evelyn Jimenes, AEROBICS TEACHER and Ashley Payne, Clinical Scribe I performed the above scribed service and agree with the accuracy of the documentation in this encounter. Jo Ordaz MD Chisel Grinder of Dermatology, Department of Mailroom CoordinatorChisel Grinderchannel cementer insole machine (Dermatopathology) [facility] documented in this encounter Plan of Treatment Upcoming Encounters Date Type Department Care Team (Late st Contact Info) Description 10/07/2024 11:30 AM EST Office Visit Dermatology at [place] [address] [place] [address] Jo Ordaz MD [facility] [place] [address] 12/13/2024 11:30 AM EST Appointment [place] [address] 12/13/2024 1:00 PM EST Office [place] [address] Kiet Pardo MD [facility] [place] [address] documented as of this encounter Visit Diagnoses Diagnosis Scleroderma Systemic sclerosis Scar Scar condition and fibrosis of skin AK (actinic keratosis) Actinic keratosis Skin exam, screening for cancer Screening for malignant neoplasm of the skin documented in this encounter Care Teams Cnc Operator Programmer Relationship Specialty Start Date End Date Yaritza Pierre MD [address] [place] [address] PCP - General 03/27/12 11/27/18 documented as of this encounter
--- OUTSIDE RECORDS SUMMARY | 2024-09-14 13:09 | XMS_ITS | Encounter Summary ---
Author Organization [facility] [place] [address] Care Team Providers Care Shelf Filler Name Role Phone Yaritza Pierre MD Primary Care Provider [phone] Encounter Details Date Type Department Care Team (Late st Contact Info) Description 07/27/2017 Abstract [place] [address] Kristin Capellan Social History Tobacco Use Types [...] AM EST Office Visit Dermatology at [address] [place] [address] Jo Ordaz MD [facility] [place] [address] 12/13/2024 11:30 AM EST Appointment [place] [address] 12/13/2024 1:00 PM EST Office Visit [place] [address] Kiet Pardo MD [facility] [place] [address] documented as of this encounter Visit Diagnoses Not on filedocumented in this encounter Care Teams Shelf Filler Relationship Specialty Start Date End Date Yaritza Pierre MD [address] [place] [place] [address] PCP - General 03/27/12 11/27/18 documented as of this encounter
--- OUTSIDE RECORDS SUMMARY | 2024-09-14 13:09 | XMS_ITS | Encounter Summary ---
[place] [address] Care Team Providers Care Clinical Laboratory Science Professor Name Role Phone Yaritza Pierre MD Primary Care Provider [phone] Encounter Details Date Type Department Care Team (Late st Contact Info) Description 01/19/2017 [place] [phone] Gem Richey, RN Social History Tobacco Use [...] Telephone Encounter - Gem Richey RN - 01/19/2017 12:03 PM EST OK, she can increase norvasc to 20 mg daily and if no improvement in her Raynauds then she can start taking sildenafil 20 mg BID. Thank you! Amber would like to take Norvasc 10 mg BID and would like new Rx for 3 month supply sent to [facility]. She agrees with plan above otherwise. * Telephone Encounter - Gem Richey RN - 01/19/2017 11:52 AM EST I spoke with Amber today and she states that she is taking 20 mg daily of the sidenafil. She also states that she took 20 mg daily of the Norvasc in the past and she felt fine. * Telephone Encounter - Gem Richey RN - 01/19/2017 8:53 AM EST It looks like her amlodipine dose is at 10 mg per day. If that is true I don't think she should increase that any higher. i can't tell from her med list how much sildenafil she is taking. Can you find out? Thanks! Yu ?? Left message for Amber to RTC to nurse. documented in this encounter Plan of Treatment Upcoming Encounters Date Type Department Care Team (Late st Contact Info) Description 10/07/2024 11:30 AM EST Office Visit Dermatology at [place] [address] [place] [address] Jo Ordaz MD [facility] [place] [address] 12/13/2024 11:30 AM EST Appointment [place] [address] 12/13/2024 1:00 PM EST Office [place] [address] Kiet Pardo MD [facility] [place] [address] documented as of this encounter Visit Diagnoses Not on filedocumented in this encounter Care Teams Clinical Laboratory Science Professor Relationship Specialty Start Date End Date Yaritza Pierre MD [address] [place] [address] PCP - General 03/27/12 11/27/18 documented as of this encounter
--- OUTSIDE RECORDS SUMMARY | 2024-09-14 13:09 | XMS_ITS | Encounter Summary ---
Author Organization [facility] Address [facility] [place] [address] Care Team Providers Care Field Auto Appraiser Name Role Phone Yaritza Pierre MD Primary Care Provider [phone] Reason for Visit * Reason Onset Date Comments Medication Refill 10/25/2016 Encounter Details Date Type Department Care Team (Late st Contact Info) Description 10/26/2016 Telephone Nephrology [place] [address] Sumit Sawyer MD [facility] [address] Medication Refill Social History Tobacco Use Types Packs/Day Years [...] encounter Miscellaneous Notes * Telephone Encounter - Breanna Kerns LPN - 10/26/2016 1:14 PM ESTFrom: Amber Wells To: Sumit Sawyer MD Sent: 10/25/2016 9:57 PM EST Subject: Medication Renewal Request Original authorizing provider: MD Amber HUTTON would like a refill of the following medications: fosinopril (MONOPRIL) 20 mg Tablet [SUMIT SAWYER MD] Preferred pharmacy: [address] Comment: Azeem Olivo The Fosinopril 20 mg seems to work very good. Blood pressure always around 120/80. Is itpossible to have the prescription 3 MONTHS AT THE TIME ? I hope you are spending a great winter. Itis always good to see you. Thank you very much for all your help. Best regards, Amber Wells documented in this encounter Plan of Treatment Upcoming Encounters Date Type Department Care Team (Late st Contact Info) Description 10/07/2024 11:30 AM EST Office Visit Dermatology at [address] [address] Jo Ordaz MD [facility] [place] [address] 12/13/2024 11:30 AM EST Appointment [place] [address] 12/13/2024 1:00 PM EST Office Visit [place] [address] Kiet Pardo MD [facility] [place] [address] documented as of this encounter Visit Diagnoses Diagnosis Scleroderma Systemic sclerosis CKD (chronic kidney disease) stage 3, GFR 30-59 ml/min Chronic kidney disease, Stage III (moderate) documented in this encounter Care Teams Field Auto Appraiser Relationship Specialty Start Date End Date Yaritza Pierre MD [address] [place] [address] PCP - General 03/27/12 11/27/18 documented as of this encounter
--- OUTSIDE RECORDS SUMMARY | 2024-09-14 13:09 | XMS_ITS | Encounter Summary ---
Author Organization [facility] Address [facility] [place] [address] Care Team Providers Care Hogshead Mat Inspector Name Role Phone Yaritza Pierre MD Primary Care Provider [phone] Encounter Details Date Type Department Care Team (Late st Contact Info) Description 03/29/2017 9:45 AM EDT Office [place] [address] Candice Gutierrez, RN [facility] [place] [address] Scleroderma; Raynaud's disease without gangrene Social History [...] Sign Reading Time Taken Comments Blood Pressure 112/69 03/29/2017 9:19 AM EDT Pulse 75 03/29/2017 9:19 AM EDT Temperature - - Respiratory Rate 16 03/29/2017 9:19 AM EDT Oxygen Saturation 100% 03/29/2017 9:19 AM EDT Inhaled Oxygen Concentration - - Weight 63 kg (139 lb) 03/29/2017 9:19 AM EDT Height 170.2 cm (5' 7) 03/29/2017 9:19 AM EDT Body Mass Index 21.77 03/29/2017 9:19 AM EDT documented in this encounter Progress Notes * Candice Guiterrez, PARKING LOT LABORER - 03/29/2017 9:45 AM EDT Amber Wells is a 56 y.o. female seen for ongoing evaluation and management of systemic sclerosis. Last seenevaluation of right hand D/long finger pain, color changes and wound . Last seen in March by Dr. Mcdonough in March 2016 PROBLEM LIST: 1. Diffuse systemic sclerosis. (A) Initially diagnosed [place] [address] Placido Lora at [facility] in [place]. Then followed by Dr. Peyton Hinton in [facility] in [place] in 04/2010. . Echo and PFTs 12/09/11 both normal. (B) Treatment in the past has included intermittent penicillamine and methotrexate, however, she has been off immunosuppressive therapy since approximately 2005. (C) Hospitalization in 03/2010 in [place] with scleroderma hypertensive renal crisis, on dialysis for two months ending in mid 06/2010. (D) One visit with Dr. Ten Gonzalez in [place], [place] in late 2009. 2. Chronic kidney disease, stage III, with associated anemia. Currently followed by Dr. Sumit Sawyer in nephrology. 3. Raynaud's symptoms. 4. GERD. HPI: Reports ongoing sildenafil 20 mg once daily, amlodipine 10 mg at hs. Intermittent use of nitropaste. Ulnar artery transfer 09/2016 ( Plastic). Seen earlier today for Right hand digital ulcer. Reports treated with ABX. Warmer weather suspected to help healing/circulation in hands. Possible BOTOX injections to be considered in fall 2016. Ulcer at tip of right thumb, more pain and swelling, (+) redness, Reporting history of purulent drainage. No fever, (+) sweats thought associated with menopausal symptoms. Seen in [facility] () for chronic low back pain - thought postural and myofascial sources. PT referral. Left shoulder and arm pain, evaluated by PCP -> thought associated with carrying heavy objects -> ORTHO referral at OSH by Yaritza Pierre MD. No other changes in medical, surgical or social history. Last seen Gastroenterology 06/2016 and Nephrology 07/2016. Current Outpatient Prescriptions on File Prior to Visit Medication Sig Dispense Refill ??? LIDOCAINE 2 % Solution APPLY TO PAINFUL AREAS IF NEEDED 0 ??? lidocaine (LIDODERM) 5 % Adhesive Patch, Medicated Apply a patch to area of pain, can leave on for 12 hours, then take off and do not apply for another 12 hours. 60 patch 11 ??? amLODIPine (NORVASC) 10 mg Tablet Take 2 tablets by mouth daily. 180 tablet 3 ??? fosinopril (MONOPRIL) 20 mg Tablet Take 1 tablet by mouth daily. 90 tablet 3 ??? sildenafil (REVATIO) 20 mg Tablet ??? acetaminophen (TYLENOL) 500 mg Tablet Take 2 tablets by mouth every 8 hours as needed for Pain.30 tablet 1 ??? aspirin 81 mg Tablet, Chewable Take 81 mg by mouth daily. 30 tablet 3 ??? esomeprazole (NEXIUM) 40 mg [...] facility-administered medications on file prior to visit. No Known Allergies ?? Physical examination: Vitals: 03/29/17 0919 BP: 112/69 Pulse: 75 Resp: 16 SpO2: 100% Weight: 63 kg (139 lb) Height: 170.2 cm (5' 7) Constitutional: Pleasant adult female in no acute distress HEENT: Eyes: sclera clear, oral mucous membranes dry and intact. (-) thyromegaly anterior cervical lymphadenopathy, parotid or submandibular gland enlargement. CHEST: Heart RRR, (-) murmur or extra sound. Lungs: (-) wheezing, rales or rhonchi. Neurological: Gait even and co-ordinated. Speech clearly articulated. Skin: Warm, dry, tight skin in ave-oral region. Chest wall normal, thickened shiny skin from her fingertips up to her mcps, thick skin on the dorsum of her hands up to her mid forearms. (+)pitting in all of her fingertips, RIght D 1 distal and palmar aspect ulcer, intact eschar ~ 2-3 mm, dry epithelial layer. (- ) drainage. Skin adjacent to base of nail (+) tender, warm and red. Skin taut, pale and swollen at D 1. Musculoskeletal: Joints: + sclerodactyly, flexion contractures of all of her fingers, unable to make a complete fist, (-) synovitis, all of her other joints are normal. Assessment: RiGHT hand thumb, ulceration; systemic sclerosis with GERD, Raynaud's, sclerodactyly and a hx of scleroderma renal crisis and now stage 3 CKD. Plan: Case and assessment findings reviewed with Mg Mcdonough, who also examined the patient. ?? Increase sildenafil 20 mg to THREE times daily in AM. ?? Amlodipine 10 mg at hs. ?? Continue EMLA. ?? Nitropaste to base of affected finger. ?? Tylenol with codeine 300/30 q 6h prn. ?? Increase duration of kelfex 500 mg po TID to 10 days - new RX to preferred pharmacy. ?? Office contact in 10 days to report on response. ?? Ongoing planning per Plastic Surgery. ?? Follow up w/Dr. Mcdonough in 6 months, Sooner for concerns, questions or increased signs/symptoms. * Yu Mcdonough DO - 03/29/2017 9:45 AM EDT Amber is seen today for an ulcer on the tip of her right thumb related to her severe Raynaud's phenomenon. She was seen in plastic surgery today and she was prescribed keflex for infection. Her right thumb is swollen and erythematous from the DIP to the tip. There is an open ulcer. I formulated the following plan with the patient: Keflex 500 mg tid for 10 days Increase sildenafil to 20 mg TID Use nitropaste at base of thumb 3-4 times per day Tylenol with codeine for pain Continue norvas Call at the end of abx and let us know how she is doing documented in this encounter Plan of Treatment Upcoming Encounters Date Type Department Care Team (Late st Contact Info) Description 10/07/2024 11:30 AM EST Office Visit Dermatology at [facility] [address] [place] [address] Jo Ordaz MD [facility] [place] [address] 12/13/2024 11:30 AM EST Appointment [place] [phone] 12/13/2024 1:00 PM EST Office [place] [phone] Kiet Pardo MD [facility] [address] documented as of this encounter Visit Diagnoses Diagnosis Scleroderma Systemic sclerosis Raynaud's disease without gangrene documented in this encounter Care Teams Hogshead Mat Inspector Relationship Specialty Start Date End Date Yaritza Pierre MD [address] [place] [id number] PCP - General 03/27/12 11/27/18 documented as of this encounter
--- OUTSIDE RECORDS SUMMARY | 2024-09-14 13:09 | XMS_ITS | Encounter Summary ---
Author [facility] [place] [address] Care Team Providers Care Manager Intensive Care Unit Name Role Phone Yaritza Pirere MD Primary Care Provider [phone] Reason for Visit * Auth/Cert Specialty Diagnoses / Procedures Referred By Wander hernandez Referred To Contact Diagnoses ULNAR ARTERY EVALUATION Procedures PRO VASCULAR SURGERY PROCEDURE UNLIST PRO VASCULAR SURGERY PROCEDURE UNLIST HARVEST SAPHENOUS VEIN EXCISION VEIN FROM HAND Referral ID Status Reason Start Date Expiration Date Visits Re quested Visits Authorized [id number] 1 1 Encounter Details Date Type Department Care Team (Latest Contact Info) Description 10/07/2016 11:17 AM EST - 10/08/2016 2:35 PM [facility] Hospital Encounter [address] [place] [phone] Andre Marroquin MD [facility] [place] [address] Discharge Disposition: Home Social History Tobacco Use [...] Sign Reading Time Taken Comments Blood Pressure 115/70 10/08/2016 8:09 AM EST Pulse 79 10/07/2016 8:15 PM EST Temperature 36.8 ??C (98.2 ??F) 10/08/2016 8:09 AM ES T Respiratory Rate 19 10/08/2016 8:09 AM EST Oxygen Saturation 99% 10/08/2016 8:09 AM EST Inhaled Oxygen Concentration - - Weight 61.2 kg (135 lb) 10/07/2016 1:20 PM EST Height 170.2 cm (5' 7) 10/07/2016 1:20 PM EST Body Mass Index 21.14 10/07/2016 1:20 PM EST documented in this encounter Discharge Summaries * Jaiden Faustin MD - 10/07/2016 2:39 PM EST Discharge Summary Patient Name: Amber Wells Patient Age: 56 y.o. Language: Armenian Race: / Ethnicity: Not nor Admit date: [...] Hospital Course: Patient was admitted electively to [facility] via the same day surgery program and [...] office hours: Monday - Monday 8am-5pm call [phone]. On weekends or after hours call [phone] and ask the tunnel elastic operator zigzag to page the plastic surgery resident acid polymerization operator. FOLLOW UP: Future Appointments and Orders Future Appointments Provider Department Dept Phone 10/12/2016 10:30 AM Andre Marroquin MD Plastic Surgery at [facility] [phone] 10/12/2016 11:00 AM Mikel Diehl OT Occupational Therapy at [facility] [phone] 10/20/2016 11:30 AM Jo Ordaz MD Dermatology at [facility] [phone] MEDICATIONS: Your Medications UNREVIEWED medications - Discuss [...] called in to our prescription line at [phone]. Narcotic renewals may be requested from 8am-4pm [...] Monday 8 am to 5 pm Call [phone] On weekends or after hours: Call [phone] and ask the tunnel elastic operator zigzag to page the Plastic Surgery Resident acid polymerization operator. Post-Op Plan: - Follow up in: 7-10 days with Sandra/nurse - Wound Check - Suture removal: None/ days - Dressings: remove dressings (leave steri strips) General Instructions None Future Appointments and Orders Future Appointments Provider Department Dept Phone 10/12/2016 10:30 AM Andre Marroquin MD Plastic Surgery at [facility] [phone] 10/12/2016 11:00 AM Mikel Diehl OT Occupational Therapy at [facility] [phone] 10/20/2016 11:30 AM Jo Ordaz MD Dermatology at [facility] [phone] Follow-Up: Future Appointments Date Time Provider Department Center 10/12/2016 10:30 AM Andre Marroquin MD [facility] 10/12/2016 11:00 AM Mikel Diehl, OT Htr Rehab OT [facility] 10/20/2016 11:30 AM Jo Ordaz MD Psychiatric Derm [facility] Primary Care Provider: Yaritza Pierre MD [phone] Follow-up Recommendations for Providers: Please see discharge [...] was managed by the Plastic SurgeryTeam at [facility]. If you haveany questions or concerns, please feel free to contact us. Provider Contact Information: Plastic Surgery Clinic: [facility] (after business hours): documented in this encounter [...] office hours: Monday - Monday 8am-5pm call [phone]. On weekends or after hours call [phone] and ask the tunnel elastic operator zigzag to page the plastic surgery resident acid polymerization operator. FOLLOW UP: Future Appointments and Orders Future Appointments Provider Department Dept Phone 10/12/2016 10:30 AM Andre Marroquin MD Plastic Surgery at [facility] [phone] 10/12/2016 11:00 AM Mikel Diehl OT Occupational Therapy at [facility] [phone] 10/20/2016 11:30 AM Jo Ordaz MD Dermatology at [facility] [phone] MEDICATIONS: Your Medications UNREVIEWED medications - Discuss [...] called in to our prescription line at [phone]. Narcotic renewals may be requested from 8am-4pm [...] Monday 8 am to 5 pm Call [phone] On weekends or after hours: Call [phone] and ask the tunnel elastic operator zigzag to page the Plastic Surgery Resident acid polymerization operator. Post-Op Plan: - Follow up in:10/12 with [...] this time. Surveillance [continuous indirect monitoring]: q1hr leilaniing, griseldao Patient-specific fall prevention interventions for sensory deficits provided, if applicable: [X] N/A CPG GOAL OUTCOME EVALUATION: * Op Note - Andre Marroquin MD - 10/07/2016 6:05 PM EST Operative Note ?? Patient Name: Amber Wells : [id number] MR#: [id number] ?? Case Date: 10/07/2016 ?? Surgeon: Surgeon(s) [...] Operative Note Patient Name: Amber Wells : [id number] MR#: [id number] Case Date: 10/07/2016 Surgeon: Surgeon(s) and Role: [...] AM EST Office Visit Dermatology at [address] [address] Jo Ordaz MD [facility] [place] [address] 12/13/2024 11:30 AM EST Appointment [place] [address] 12/13/2024 1:00 PM EST Office [place] [address] Kiet Pardo MD [facility] [place] [address] documented as of this encounter Procedures Procedure [...] EST) Potassium 4.7 3.5 - 5.0 mmol/L [place] [...] Lab Andre Marroquin MD CHEMISTRY ORDERABLE S [facility] [place] [phone] documented in this encounter Visit Diagnoses Diagnosis [...] on Mon10/07/16 at 1900, Last dose on 10/08/16 at 0300, Administer over 30 Minutes, *Beta-lactam [...] on Mon10/08/16 at 0900, Until Discontinued, Routine 09 (Given - Provider: Brittni Ruby RN) ceFAZolin (ANCEF) 1g in dextrose 5% 50mL [...] on Mon10/07/16 at 2300, Until Discontinued, Routine 225 (Given - Provider: Otoniel Pemberton RN) 0923 (Given - Provider: Brittni Ruby, [place]) enoxaparin (LOVENOX) injection 40 mg 40 mg, Subcutaneous, NIGHTLY, First dose on Mon10/07/16 at 2300, Until Discontinued, Routine 225 (Given - Provider: Otoniel Pemberton RN) lactobacillus (BACID) tablet 1 tablet 1 tablet, Oral, DAILY, First dose on Mon10/08/16 at 0900, Until Discontinued, Routine 09 (Given - Provider: Brittni Ruby RN) lisinopril (PRINIVIL;ZESTRIL) tablet 20 mg 20 mg, [...] Insomnia, Routine 2314 (Given - Provider: Otoniel Pemberton, [place]) 0918 (Given - Provider: Brittni Ruby RN) [...] RN) 1307 (See Alternative - Provider: Brittni Ruby RN) ondansetron (ZOFRAN) tablet 4 mg(Linked Group 1) [...] Unit) documented in this encounter Care Teams Manager Intensive Care Unit Relationship Specialty Start Date End Date Yaritza Pierre MD [address] [place] [address] PCP - General 03/27/12 11/27/18 documented as of this encounter
--- OUTSIDE RECORDS SUMMARY | 2024-09-14 13:09 | XMS_ITS | Encounter Summary ---
Author Organization [facility] [place] [address] Care Team Providers Care Organic Search Lead Name Role Phone Yaritza Pierre MD Primary Care Provider [phone] Reason for Referral * Diagnostic Test (Routine) - Specialty Diagnoses / Procedures Referred By Wander hernandez Referred To Contact Radiology Diagnoses Desmoid fibromatosis Procedures MRI Upper Extremity Non Joint wwo Contrast Breanna Ordoñez MD [facility] [place] [address] [place] [address] Referral ID Status Reason Start Date Expiration Date Visits Requested Visits Authorized [id number] Specialty Service Requested 10/03/2016 10/03/2017 1 1 Reason for Visit * MRI/CAT Scan (Routine) - Closed Specialty Diagnoses / Procedures Referred By Wander hernandez Referred To Contact Radiology Diagnoses 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/ LABS PRIOR Procedures MRI UPPER EXTREMITY NON JOINT WWO CONTRAST MRI UPPER EXTR NON JOINT W/WO Breanna Ordoñez MD [facility] [place] [address] [place] [address] Referral ID Status Reason Start Date Expiration Date Visits Re quested Visits Authorized [id number] Closed 10/05/2017 12/04/2017 1 1 Encounter Details Date Type Department Care Team (Late st Contact Info) Description 10/06/2017 10:59 AM EST - 10/06/2017 11:59 PM EST Hospital Encounter MRI at [facility] [address] Breanna Ordoñez MD [facility] [place] [address] Desmoid fibromatosis Discharge Disposition: Home Social History [...] times daily. 180 capsule 3 01/10/2018 11/28/2018 sildenafil (REVATIO) 20 mg Tablet 2 tablets [...] mouth daily. 180 tablet 3 01/19/2017 01/29/2018 fosinopril (MONOPRIL) 20 mg TabletIndications:Scle roderma,CKD (chronic kidney disease) stage 3, GFR 30-59 ml/min Take 1 tablet by mouth daily. 90 tablet 3 10/26/2016 10/27/2017 lidocaine-prilocaine (EMLA) cream Apply topically as needed. 30 g 2 05/21/2013 01/09/2020 documented as of this encounter Plan of Treatment Upcoming Encounters Date Type Department Care Team (Late st Contact Info) Description 10/07/2024 11:30 AM EST Office Visit Dermatology at [address] [address] Jo Ordaz MD [facility] [place] [address] 12/13/2024 11:30 AM EST Appointment [place] [address] 12/13/2024 1:00 PM EST Office [place] [phone] Kiet Pardo MD [facility] [place] [address] documented as of this encounter Procedures Procedure Name Priority Date/Time Associated Diagnosis Comments MRI UPPER EXTREMITY NON JOINT WITH/WO CONTRAST Routine 10/06/2017 12:25 PM EST Desmoid fibromatosis documented in this encounter [...] Rate Site gadobutrol (GADAVIST) 1 mMol/mL injection 0-20 mL 0-20 mL, Intravenous, ONCE PRN, 1 dose, Starting on Mon10/06/17 at 1205, Until Mon10/06/17 at 1202, Per Protocol, Radiology Contrast, Routine Given 10/06/2017 12:02 PM EST 6 mLs documented in this encounter Care Teams Organic Search Lead Relationship Specialty Start Date End Date Yaritza Pierre MD [address] [place] [address] PCP - General 03/27/12 11/27/18 documented as of this encounter
--- OUTSIDE RECORDS SUMMARY | 2024-09-14 13:09 | XMS_ITS | Encounter Summary ---
[place] [address] Care Team Providers Care Solar Photovoltaic Systems Engineer Name Role Phone Yaritza Pierre MD Primary Care Provider Encounter Details Date Type Department Care Team (Late st Contact Info) Description 08/24/2016 Telephone [place] [phone] Wendy Albarado RN Social History Tobacco Use [...] Telephone Encounter - Wendy Albarado RN - 08/24/2016 1:28 PM EDT ----- Message from Breanna Kerns LPN sent at 08/22/2016 1:19 PM EDT ----- Regarding: FW: Other Contact: ----- Message ----- From: Amber Wells Sent: 08/22/2016 8:48 AM To: [facility] Nurse Subject: Fazal Gann, this email is for Pallavi Albarado. Here's information you asked me to send to you. I've been cutting half the best I could my Fosinopril 40 mg. I take it at night. It's hard to say how much mg I did take. Sometimes the part of the pill looks like 18 mg sometimes it looks like 25 mg.... I'm trying to take as much as possible near 20 mg, the pills are hard to cut but it is working.My blood pressure seems okay. Here's the results of 10 days. AM 125-74 PM 134-86 AM 110-60 PM 122-82 AM 116-76 PM 130-79 AM 116-70 PM 127-83 AM 118-78 PM 126-78 AM 125-73 PM 127-69 AM 116-78 PM 148-85 AM 118-71 PM 134-83 AM 117-73 PM 134-79 AM 107-71 PM 127-83 So, It was very good to see You and Doctor Digna. Hopefully, by having my blood pressure a little higher, I will get more blood in my fingers for the winter. Thank you very much. Have a great day. Best regards. Amber Wells n.b. if You ever change my prescription, my pharmacie is [facility] in [place] documented in this encounter Plan of Treatment Upcoming Encounters Date Type Department Care Team (Late st Contact Info) Description 10/07/2024 11:30 AM EST Office Visit Dermatology at [place] [address] [place] [address] Jo Ordaz MD [facility] [address] [place] [address] 12/13/2024 11:30 AM EST Appointment [place] [address] 12/13/2024 1:00 PM EST Office [place] [address] Kiet Pardo MD [facility] [place] [address] documented as of this encounter Visit Diagnoses Not on filedocumented in this encounter Care Teams Solar Photovoltaic Systems Engineer Relationship Specialty Start Date End Date Yaritza Pierre MD [address] [place] [address] PCP - General 03/27/12 11/27/18 documented as of this encounter
--- OUTSIDE RECORDS SUMMARY | 2024-09-14 13:09 | XMS_ITS | Encounter Summary ---
Author Organization [facility] [place] [address] Care Team Providers Care Manager Part Name Role Phone Yaritza Pierre MD Primary Care Provider [phone] Encounter Details Date Type Department Care Team (Latest Contact Info) Description 08/22/2017 1:00 PM EDT Laboratory Appointment Lab [address] [place] [phone] CKD (chronic kidney disease) stage 3, GFR [...] at [facility] [address] [place] [address] Jo Ordaz MD [facility] [place] [address] 12/13/2024 11:30 AM EST Appointment [place] [address] 12/13/2024 1:00 PM EST Office [place] [address] Kiet Pardo MD [facility] [place] [address] documented as of this encounter Procedures Procedure Name Priority Date/Time Associated Diagnosis Comments PTH Routine 08/22/2017 1:45 PM EDT CKD (chronic kidney disease) stage 3, GFR 30-59 ml/min HEMOGRAM Routine 08/22/2017 1:45 PM EDT CKD (chronic kidney disease) stage 3, GFR 30-59 ml/min DIFFERENTIAL, AUTOMATED Routine 08/22/2017 1:45 PM EDT CKD (chronic kidney disease) stage 3, GFR 30-59 ml/min VITAMIN D, 25-HYDROXY Routine 08/22/2017 1:45 PM EDT CKD (chronic kidney disease) stage 3, GFR 30-59 ml/min CBC (WITH DIFF) Routine 08/22/2017 1:45 PM EDT CKD (chronic kidney disease) stage 3, GFR 30-59 ml/min PHOSPHORUS Routine 08/22/2017 1:45 PM EDT CKD (chronic kidney disease) stage 3, GFR 30-59 ml/min ALBUMIN LEVEL Routine 08/22/2017 1:45 PM EDT CKD (chronic kidney disease) stage 3, GFR 30-59 ml/min BASIC METABOLIC PANEL Routine 08/22/2017 1:45 PM EDT CKD (chronic kidney disease) stage 3, GFR 30-59 ml/min U ALBUMIN/CRE RATIO Routine 08/22/2017 1 :25 PM EDT CKD (chronic kidney disease) stage 3, GFR 30-59 ml/min documented in this encounter Results * (ABNORMAL) Differential, Automated (08/22/2017 1:45 PM EDT) Pathologist [facility] Neutrophil % 72.4 % [facility] Neutrophil Absolute 6.73(H) 1.70 - 6.10 x10(3)/mc L [facility] Lymph % 19.1 % [facility] Lymphocytes Abs 1.8 0.9 - 3.2 x10(3)/mc L [facility] Monocyte % 6.2 % [facility] Monocyte Abs 0.6 0.3 - 0.9 x10(3)/ L [facility] Eos % 1.5 % [facility] Eosinophils Abs 0.1 0.0 - 0.4 x10(3)/[facility] Basophil % 0.5 % [facility] Baso Absolute 0.0 0.0 - 0.1 x10(3)/mc L [facility] Immature Gran % 0.30 % [facility] Comment: Immature granulocytes(IG's)percentage and absolute count will include metamyelocytes, myelocytes, and promyelocytes. Blood smears from CBCs yielding IG's will be scanned manually for concordance. If this scan disagrees with the automated IG or if promyelocytes are noted, a manual differential will be performed. Immature Gran Absolute 0.03 0.00 - 0.04 x10(3)/mc L [facility] Blood specimen (specimen) 08/22/2017 1:45 PM EDT 08/22/2017 1:51 PM EDT Narrative Resulting Agency Comment Spec In Lab Osman Orellana MD HEMATOLOGY ORDERABLE S [facility] [place] [address] * (ABNORMAL) Hemogram (08/22/2017 1:45 PM EDT) [facility] White Blood Cell 9.3 4.0 - 9.5 x10(3)/[facility] Red Blood Cell 4.19 4.00 - 5.21 x10(6)/[facility] Hemoglobin 13.3 11.7 - 15.5 gm/dL [facility] Hematocrit 39.8 35.7 - 45.8 % [facility] Mean Cell Volume 95.0(H) 82.6 - 94.4 fL [facility] Mean Cell Hemoglobin 31.7 27.1 - 32.0 pg [facility] Mean Cell Hemoglobin Concentration 33.4 31.7 - 35.0 gm/dL [facility] Platelet 293 145 - 357 x10(3)/[facility] RDW Standard Deviation 48.1(H) 37.0 - 46.0 fL [facility] RDW coefficient of variation 13.9 11.5 - 14.1 % [facility] Mean Platelet Volume 10.8 7.6 - 12.9 fL [facility] NRBC% auto 0.0 % [facility] NRBC Absolute 0.000 0.000 - 0.000 x10(3)/[facility] Blood specimen (specimen) 08/22/2017 1:45 PM EDT 08/22/2017 1:51 PM EDT Narrative Resulting Agency Comment Spec In Lab Osman Orellana MD HEMATOLOGY ORDERABLE S [facility] [place] [address] * Vitamin D, 25-Hydroxy (08/22/2017 1:45 PM EDT) [facility] Vitamin D Total 25 OH 37 30 - 100 ng/mL [facility] Comment: Deficient <10 ng/mL Insufficient 10 to 29 ng/mL Sufficient 30 to 100 ng/mL Potential Intoxication >100 ng/mL According to the [place] National Osteoporosis Foundation, Vitamin D concentrations >30 ng/mL are sufficient to protect bone health. ??The National Kidney Foundation has similarly stated that patients with Vitamin D concentrations <30ng/mL should be considered to be insufficient or deficient. http://[employer].Yapert/nkf-guidelines http://tracx/nejm-VitD The [employer] i[employer] Vitamin D Immunoassay detects both 25-OH Vitamin D2 and 25-OH Vitamin D3, but only a total Vitamin D concentration is reported. Blood specimen (specimen) 08/22/2017 1:45 PM EDT 08/23/2017 7:46 AM EDT Narrative Resulting Agency Comment Spec In Lab Osman Orellana MD CHEMISTRY ORDERABLES Performing Organization Address City/[facility]/ZIP Co de Phone Number [facility] [address] * (ABNORMAL) PTH (08/22/2017 1:45 PM EDT) Parathyroid Hormone 77(H) 15 - 65 pg/mL [facility] Blood specimen (specimen) 08/22/2017 1:45 PM EDT 08/22/2017 1:51 PM EDT Narrative Resulting Agency Comment Spec In Lab Osman Orellana MD CHEMISTRY ORDERABLES Performing Organization Address [facility]/ZIP Co de Phone Number [facility] [place] [address] * Albumin Level (08/22/2017 1:45 PM EDT) Albumin 4.8 3.2 - 5.2 gm/dL [facility] Blood specimen (specimen) 08/22/2017 1:45 PM EDT 08/22/2017 1:51 PM EDT Narrative Resulting Agency Comment Spec In Lab Osman Orellana MD CHEMISTRY ORDERABLES Performing Organization Address City/[facility]/ZIP Co de Phone Number [facility] [place] [address] * Phosphorus (08/22/2017 1:45 PM EDT) Phosphorus 3.4 2.5 - 4.5 mg/dL [facility] Blood specimen (specimen) 08/22/2017 1:45 PM EDT 08/22/2017 1:51 PM EDT Narrative Resulting Agency Comment Spec In Lab Osman Orellana MD CHEMISTRY ORDERABLES [facility] [place] [address] * (ABNORMAL) Basic Metabolic Panel (non-fasting) (08/22/2017 1:45 PM EDT) Glucose 90 65 - 199 mg/dL [facility] Comment:Diabetes: >=200 mg/d L plus symptoms Blood Urea Nitrogen 20(H) 8 - 18 mg/dL [facility] Creatinine 1.29(H) 0.70 - 1.20 mg/dL [facility] Comment: Please note that the pediatric reference intervals supplied above were not validated at [facility]. Results from pediatric patients should be interpreted in conjunction to the patient's age, height and muscle mass. Sodium 142 135 - 145 mmol/L [facility] Potassium 4.9 3.5 - 5.0 mmol/L [facility] Comment: Please note: ??Patients with WBC >100,000 may have falsely elevated Potassium levels. ??For accurate Potassium quantification in these patients send serum separator tube (gold top) for subsequent determinations. ??Contact the Clinical Chemistry Laboratory if there are any questions. Chloride 102 98 - 107 mmol/L [facility] Carbon Dioxide 24 22 - 31 mmol/L [facility] Anion Gap 16(H) 5 - 15 mmol/L [facility] Calcium 9.4 8.5 - 10.5 mg/dL [facility] Est Glomerular Filtration Rate 43(L) >=60 [facility] Comment: This estimated GFR (eGFR) value [...] the following links into your internet browser. http://tracx/DHnkdep http://tracx/DHMCnkf Blood specimen (specimen) 08/22/2017 1:45 PM EDT 08/22/2017 1:51 PM EDT Narrative Resulting Agency Comment Spec In Lab Osman Orellana MD CHEMISTRY ORDERABLES Performing Organization Address City/[facility] Co de Phone Number [facility] [place] [address] * (ABNORMAL) U Albumin/Cre Ratio (08/22/2017 1:25 PM EDT) Albumin / Creatinin Ratio, Urine 87(H) 0 - 29 mcg/mg Cr [facility] Comment: Reference Ranges: <30 mcg/mg: [...] Supplements (2012) 2, 357? 362 Albumin, Urine 28.6 mg/L [facility] Creatinine, Urine 33 mg/dL [facility] Urine specimen (specimen) 08/22/2017 1:25 PM EDT 08/22/2017 1:32 PM EDT Narrative Resulting Agency Comment Spec In Lab Osman Orellana MD URINE ORDERABLES [facility] [place] [address] documented in this encounter Visit Diagnoses Diagnosis CKD (chronic kidney disease) stage 3, GFR 30-59 ml/min Chronic kidney disease, Stage III (moderate) documented in this encounter Care Teams Manager Part Relationship Specialty Start Date End Date Yaritza Pierre MD [address] [place] [address] PCP - General 03/27/12 11/27/18 documented as of this encounter
--- OUTSIDE RECORDS SUMMARY | 2024-09-14 13:09 | XMS_ITS | Encounter Summary ---
Author Organization [facility] [place] [address] Care Team Providers Care Senior Sharepoint Architect Name Role Phone Yaritza Pierre MD Primary Care Provider [phone] Encounter Details Date Type Department Care Team (Late st Contact Info) Description 06/13/2017 Orders [place] [address] Yu Mcdonough [facility] [address] Social History Tobacco Use Types Packs/Day Years [...] 11:30 AM EST Office Visit Dermatology at [facility] [address] [place] [address] Jo Ordaz MD [facility] [place] [address] 12/13/2024 11:30 AM EST Appointment Pulmonology at [place] [phone] 12/13/2024 1:00 PM EST Office [place] [phone] Kiet Pardo MD [facility] [place] [address] documented as of this encounter Visit Diagnoses Not on filedocumented in this encounter Care Teams Senior Sharepoint Architect Relationship Specialty Start Date End Date Yaritza Pierre MD [address] [place] [address] PCP - General 03/27/12 11/27/18 documented as of this encounter
--- OUTSIDE RECORDS SUMMARY | 2024-09-14 13:09 | XMS_ITS | Encounter Summary ---
Author Organization [facility] [place] [address] Care Team Providers Care Insurance Account Executive Name Role Phone Yaritza Pierre MD Primary Care Provider [phone] Encounter Details Date Type Department Care Team (Late st Contact Info) Description 04/06/2017 Orders [place] [address] Yu Mcdonough [facility] [address] Social History Tobacco Use Types Packs/Day Years [...] EST Office Visit Dermatology at [facility] [address] [place] [address] Jo Ordaz MD [facility] [place] [address] 12/13/2024 11:30 AM EST Appointment Pulmonology at [place] [phone] 12/13/2024 1:00 PM EST Office [place] [phone] Kiet Pardo MD [facility] [place] [address] documented as of this encounter Visit Diagnoses Not on filedocumented in this encounter Care Teams Insurance Account Executive Relationship Specialty Start Date End Date Yaritza Pierre MD [address] [place] [address] PCP - General 03/27/12 11/27/18 documented as of this encounter
--- OUTSIDE RECORDS SUMMARY | 2024-09-14 13:09 | XMS_ITS | Encounter Summary ---
Author Organization [facility] [place] [address] Care Team Providers Care Cork Insulator Helper Name Role Phone Yaritza Pierre MD Primary Care Provider [phone] Encounter Details Date Type Department Care Team (Late st Contact Info) Description 09/27/2016 Multidisciplinary Ca re Committee [place] [address] Breanna Ordoñez MD [facility] [place] [place] [address] Social History Tobacco Use Types Packs/Day Years [...] as of this encounter Progress Notes * Breanna Ordoñez MD - 09/27/2016 8:21 AM EST Sarcoma - Tumor Board Note Date Presented: 09/27/2016 Presenting Physician: Smita Diagnosis/Tumor Site: upper back desmoid tumor Is this Metastatic Disease: No Synopsis of History/HPI:Mrs Wells is a 54F with Scleroderma diagnosed in 1990 s/p immunosuppressive treatment until 2005, 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 ?? - Incisional biopsy on 04/17/14 - spindle cell tumor. 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 ?? - Re-excision on 05/27/14 that included the biopsy cavity with seroma, fascia and skeletal muscle (deep margin) and 2cm superior and inferior. Pathology showed inflamed granulation tissue with a possible focus of residual desmoid tumor (+Bcatenin) within 0.1 cm of caudal margin. Under surveillance with MRI since then. Has not had recurrence thus far. ?? Imaging: Reviewed MRI from 2014 with mild enhancement, likely scar in area of resection bed. There is some enhancement along the chest wall on this scan which is discontinuous to resection bed. Now on 09/23/2016 there is no new enhancement in resection bed, but the chest wall enhancement is slightlyincreased. There is a normal muscle belly between the resection bed and chest wall, therefore this d oes NOT look like recurrence. Pathology/Histology: desmoid tumor Stage: Clinical Data (Exams, Labs, etc.): Molecular Pathology Results: Clinical Trial Availability: NA Options Discussed: continued surveillance in one year with MRI. Recommendations: Standard surveillance DISCLAIMER: The patient was discussed and the tumor board made recommendations but it is ultimatelyup to the treatment provider(s) and the patient to determine the patient???s care. documented in this encounter Plan of Treatment Upcoming Encounters Date Type Department Care Team (Late st Contact Info) Description 10/07/2024 11:30 AM EST Office Visit Dermatology at [facility] [address] [place] [address] Jo Ordaz MD [facility] [place] [address] 12/13/2024 11:30 AM EST [place] [phone] 12/13/2024 1:00 PM EST [place] [address] Kiet Pardo MD [facility] [place] [address] documented as of this encounter Visit Diagnoses Not on filedocumented in this encounter Care Teams Cork Insulator Helper Relationship Specialty Start Date End Date Yaritza Pierre MD [address] [place] [address] PCP - General 03/27/12 11/27/18 documented as of this encounter
--- OUTSIDE RECORDS SUMMARY | 2024-09-14 13:09 | XMS_ITS | Encounter Summary ---
[place] [address] Care Team Providers Care Top Stop Attacher Name Role Phone Yaritza Pierre MD Primary Care Provider Reason for Referral * Diagnostic Test (Routine) - Closed Specialty Diagnoses / Procedures Referred By Contac t Referred To Contact Radiology Diagnoses Pain in thoracic spine Procedures MRI Thoracic Spine wwo Contrast Yaritza Pierre MD [address] [place] [address] [place] [address] Referral ID Status Reason Start Date Expiration Date V isits Requested Visits Authorized [id number] Closed Specialty Service Requested 02/01/2017 03/27/2017 1 1 Reason for Visit * Diagnostic Test (Routine) - Closed Specialty Diagnoses / Procedures Referred By Contac t Referred To Contact Radiology Diagnoses Pain in thoracic spine Procedures MRI Thoracic Spine wwo Contrast Yaritza Pierre MD [address] [place] [address] [place] [address] Referral ID Status Reason Start Date Expiration Date V isits Requested Visits Authorized [id number] Closed Specialty Service Requested 02/01/2017 03/27/2017 1 1 Encounter Details Date Type Department Care Team (Latest Contact Info) Description 02/06/2017 7:10 AM EDT - 02/06/2017 11:59 PM EDT Hospital [place] [address] Yaritza Pierre MD [address] [place] [address] Pain in thoracic spine Discharge Disposition: Home Social History Tobacco Use [...] times daily. 180 capsule 3 01/10/2018 11/28/2018 acetaminophen-codeine (TYLENOL #3) 300-30 mg Tablet daily. Reported on 03/29/2017 0 11/11/2016 03/29/2017 glycerin, adult, Suppository Reported on 02/24/2017 0 10/21/2016 02/24/2017 acetaminophen-codeine (TYLENOL #3) 300-30 mg Tablet Reported on 02/24/2017 0 11/11/2016 02/24/2017 cephalexin (KEFLEX) 500 mg Capsule Reported on 02/24/2017 0 11/11/2016 02/24/2017 LORazepam (ATIVAN) 2 mg Tablet Reported on 02/24/2017 0 11/06/2016 02/24/2017 LIDOCAINE 2 % Solution APPLY TO PAINFUL AREAS IF NEEDED 0 12/12/2016 03/24/2021 amLODIPine (NORVASC) 10 mg Tablet Take 2 tablets by mouth daily. 180 tablet 3 01/19/2017 01/29/2018 fosinopril (MONOPRIL) 20 mg TabletIndications:Scle roderma,CKD (chronic kidney disease) stage 3, GFR 30-59 ml/min Take 1 tablet by mouth daily. 90 tablet 3 10/26/2016 10/27/2017 ibuprofen (ADVIL) 200 mg Tablet Take 600 mg by mouth daily. Reported on 02/24/2017 02/24/2017 sildenafil (REVATIO) 20 mg Tablet 05/26/2016 03/29/2017 aspirin 81 mg Tablet, Chewable Take 81 mg by mouth daily. 30 tablet 3 04/09/2016 08/22/2017 esomeprazole (NEXIUM) 40 mg Capsule, Delayed Release(E.C.)Indicatio [...] AM EST Office Visit Dermatology at [facility] [address] [place] [address] Jo Ordaz MD [facility] [place] [address] 12/13/2024 11:30 AM EST [place]ment [place] [address] 12/13/2024 1:00 PM EST Office Visit Rheumatology at [facility] [place] [address] Kiet Pardo MD [facility] [address] documented as of this encounter Procedures Procedure Name Priority Date/Time Associated Diagnosis Comments MRI THORACIC SPINE WITH/WO CONTRAST Routine 02/06/2017 8:45 AM EDT Pain in thoracic spine documented in this encounter Results * MRI Thoracic Spine wwo Contrast (02/06/2017 8:45 AM EDT) Anatomical Region Laterality Modality T-spine Magnetic Resonan ce Impressions 02/06/2017 9:41 AM EDT Aside from postsurgical change in the soft tissues of the upper back, no abnormalities identified. Narrative 02/06/2017 9:41 AM EDT EXAMINATION: MRI THORACIC SPINE WWO CONTRAST CLINICAL HISTORY: desmoid fibromatosis, pt has a hx of tumors in the skin of her back TECHNIQUE: MRI of the thoracic spine with and without contrast. 6 cc Gadovist administered. COMPARISON: None. FINDINGS: Alignment is anatomic in the disc spaces and vertebral body heights are well-maintained. Marrow signal intensity is within normal limits. No masses are identified. No canal or neural foraminal narrowing. There is mild scarring within the posterior subcutaneous fat, to the left of midline, at approximately the T5-T6 levels. No masslike enhancement in this region. The underlying musculature is unremarkable. Procedure Note Marco A Sheffield MD - 02/06/2017 EXAMINATION: MRI THORACIC SPINE WWO CONTRAST CLINICAL HISTORY: desmoid fibromatosis, pt has a hx of tumors in the skinof her back TECHNIQUE: MRI of the thoracic spine with and without contrast. 6 ccGadovist administered. COMPARISON: None. FINDINGS: Alignment is anatomic in the disc spaces and vertebral bodyheights are well-maintained. Marrow signal intensity is within normal limits. Nomasses are identified. No canal or neural foraminal narrowing. There is mildscarring within the posterior subcutaneous fat, to the left of midline, atapproximately the T5-T6 levels. No masslike enhancement in this region. The underlying musculature is unremarkable. IMPRESSION Aside from postsurgical change in the soft tissues of the upper back, no abnormalities identified. Yaritza Pierre MD IMG MRI ORDERABLES documented in this encounter Visit Diagnoses Diagnosis Pain in thoracic spine documented in this encounter Administered Medications Inactive Administered Medications - up to 3 most recent administrations Medication Order MAR Action Action Date Dose Rate Site gadobutrol (GADAVIST) 1 mMol/mL injection 6.35 mL 6.35 mL (0.1 mL/kg/dose ? 63.5 kg Order-specific weight), Intravenous, ONCE PRN, 1 dose, Starting on Mon02/06/17 at 0745, Until Mon02/06/17 at 0831, Per Protocol, Routine Given 02/06/2017 8:31 AM EDT 6 mLs documented in this encounter Care Teams Top Stop Attacher Relationship Specialty Start Date End Date Yaritza Pierre MD [address] [place] [address] PCP - General 03/27/12 11/27/18 documented as of this encounter
--- OUTSIDE RECORDS SUMMARY | 2024-09-14 13:09 | XMS_ITS | Encounter Summary ---
[place] [address] Care Team Providers Care Associate Professor Of Philosophy Name Role Phone Yaritza Pierre MD Primary Care Provider [phone] Reason for Visit * Reason Onset Date Comments Prior Authorization 04/04/2017 Encounter Details Date Type Department Care Team (Late st Contact Info) Description 04/04/2017 [place] [phone] Jodi Pressley Prior Authorization Social History Tobacco [...] * Telephone Encounter - Jodi Pressley - 04/04/2017 10:51 AM EDT Medication Prior Authorization RASHIDA Medication name/dose/directions: SILDENAFIL 20MG - 3X DAILY Rationale for request: RAYNAUD'S Health plan: [employer] Authorizing associate sales representative name: FERMIN Faxed to health plan on: 04/04/17 Health plan decision: EXISTING APPROVAL ON FILE Quantity approved: Authorization number: Start date: End date: 11/20/17 documented in this encounter Plan of Treatment Upcoming Encounters Date Type Department Care Team (Late st Contact Info) Description 10/07/2024 11:30 AM EST Office Visit Dermatology at [facility] [address] [place] [address] Jo Ordaz MD [facility] [place] [address] 12/13/2024 11:30 AM EST App[place]ment [place] [phone] 12/13/2024 1:00 PM EST Office [place] [address] Kiet Pardo MD [facility] [place] [address] documented as of this encounter Visit Diagnoses Not on filedocumented in this encounter Care Teams Associate Professor Of Philosophy Relationship Specialty Start Date End Date Yaritza Pierre MD [address] [place] [address] PCP - General 03/27/12 11/27/18 documented as of this encounter
--- OUTSIDE RECORDS SUMMARY | 2024-09-14 13:09 | XMS_ITS | Encounter Summary ---
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 None CKD (chronic kidney disease) stage 3, GFR 30-59 ml/min (Primary Dx); Scleroderma; Essential hypertension; Hyperparathyroidism due to renal insufficiency Social History Tobacco Use Types Packs/Day [...] Sign Reading Time Taken Comments Blood Pressure 110/64 08/22/2017 8:18 AM EDT Pulse 84 08/22/2017 8:18 AM EDT Temperature - - Respiratory Rate - - Oxygen Saturation - - Inhaled Oxygen Concentration - - Weight 63 kg (139 lb) 08/22/2017 8:18 AM EDT Height 170.2 cm (5' 7) 08/22/2017 8:18 AM EDT Body Mass Index 21.77 08/22/2017 8:18 AM EDT documented in this encounter Progress Notes * Osman Orellana MD - 08/22/2017 1:40 PM EDT Nephrology/Hypertension Clinic Follow-up Note [id number] ID: 57 y.o.year-old female for follow up of CKD. Past Medical History: Patient Active Problem List Diagnosis Code ??? [...] I73.00 ??? Swelling of extremity, right M79.89 Outpatient Encounter Prescriptions as of 08/22/2017 Medication Sig Dispense Refill ??? sildenafil (REVATIO) 20 mg Tablet 2 [...] onto the skin every 6 hours. ??? [DISCONTINUED] cephalexin (KEFLEX) 500 mg Capsule Take 1 capsule by mouth 3 times daily. (Patient not taking: Reported on 08/22/2017) 30 capsule 0 ??? [DISCONTINUED] lidocaine (LIDODERM) 5 % Adhesive Patch, Medicated Apply a patch to area of pain, can leave on for 12 hours, then take off and do not apply for another 12 hours. (Patient not taking: Reported on 08/22/2017) 60 patch 11 ??? [DISCONTINUED] aspirin 81 mg Tablet, Chewable Take 81 mg by mouth daily. (Patient not taking: Reported on 08/22/2017) 30 tablet 3 No facility-administered encounter medications on file as of 08/22/2017. Allergies Allergen Reactions ??? Other [Unclassified Drug] Lobster--weird sensation S: Seen in Dr. Sawyer's absence. Patient with CKD secondary to scleroderma renal crisis in the past. Scleroderma symptoms continue chronically and she is on sildenafil and amlodipine to help with circulation. No chest pain, dyspnea, n/v, dysuria. O: Vitals: 08/22/17 0818 BP: 110/64 Pulse: 84 Weight: 63 kg (139 lb) Height: 170.2 cm (5' 7) General: Chronically ill appearing female NAD Eye: Conjunctivae clear Neck: S/Nt CV: RRR Resp: CTA Abd: S/NT Ext: Thickening of skin Neuro: LLAMAS well, EOMI, speech intact Psych: A&O, affect appropriate Labs: Recent Results (from the past 72 hour(s)) U Albumin/Cre Ratio Result Value Ref Range Alb/Cr Ratio, Random 87 (H) 0 - 29 mcg/mg Cr U Albumin Conc, Random 28.6 mg/L U Creatinine 33 mg/dL Basic Metabolic Panel (non-fasting) Result Value Ref Range Glucose Lvl 90 65 - 199 mg/dL BUN 20 (H) 8 - 18 mg/dL Creatinine 1.29 (H) 0.70 - 1.20 mg/dL Sodium 142 135 - 145 mmol/L Potassium 4.9 3.5 - 5.0 mmol/L Chloride 102 98 - 107 mmol/L CO2 24 22 - 31 mmol/L Anion Gap 16 (H) 5 - 15 mmol/L Calcium 9.4 8.5 - 10.5 mg/dL Estimated GFR 43 (L) >=60 Phosphorus Result Value Ref Range Phosphorus 3.4 2.5 - 4.5 mg/dL Albumin Level Result Value Ref Range Albumin 4.8 3.2 - 5.2 gm/dL PTH Result Value Ref Range PTH 77 (H) 15 - 65 pg/mL Vitamin D, 25-Hydroxy Result Value Ref Range 25-OH Vit D Total 37 30 - 100 ng/mL Hemogram Result Value Ref Range WBC 9.3 4.0 - 9.5 x10(3)/mcL RBC 4.19 4.00 - 5.21 x10(6)/mcL Hemoglobin 13.3 11.7 - 15.5 gm/dL Hematocrit 39.8 35.7 - 45.8 % MCV 95.0 (H) 82.6 - 94.4 fL MCH 31.7 27.1 - 32.0 pg MCHC 33.4 31.7 - 35.0 gm/dL Platelets 293 145 - 357 x10(3)/mcL RDWSD 48.1 (H) 37.0 - 46.0 fL RDWCV 13.9 11.5 - 14.1 % MPV 10.8 7.6 - 12.9 fL nRBC % Auto 0.0 % nRBC Abs Auto 0.000 0.000 - 0.000 x10(3)/mcL Differential, Automated Result Value Ref Range Neutrophils % 72.4 % Neutr Abs (ANC) 6.73 (H) 1.70 - 6.10 x10(3)/mcL Lymphocytes % 19.1 % Lymphocytes Abs 1.8 0.9 - 3.2 x10(3)/mcL Monocytes % 6.2 % Monocyte Abs 0.6 0.3 - 0.9 x10(3)/mcL Eosinophils % 1.5 % Eosinophils Abs 0.1 0.0 - 0.4 x10(3)/mcL Basophils % 0.5 % Basophils Abs 0.0 0.0 - 0.1 x10(3)/mcL Immature Gran % 0.30 % Yessica Gran Abs 0.03 0.00 - 0.04 x10(3)/mcL A/P: 1. Renal: Cr stable, BP well controlled. Mild proteinuria and hyperparathyroidism. - continue current antihypertensives - continue cholecalciferol - f/u 6 months CC: Yaritza Pierre MD [email or web address] documented in this encounter Plan of Treatment Upcoming Encounters Date Type Department Care Team (Late st Contact Info) Description 10/07/2024 11:30 AM EST Office Visit Dermatology at [address] [phone] Jo Ordaz MD [facility] [place] [address] 12/13/2024 11:30 AM EST [place] [phone] 12/13/2024 1:00 PM EST [place] [phone] Kiet Pardo MD [facility] [place] [address] documented as of this encounter Results * Vitamin D, 25-Hydroxy (08/22/2017 1:45 PM EDT) Vitamin D Total 25 OH 37 30 - 100 ng/mL [facility] Comment: Deficient <10 ng/mL Insufficient 10 to 29 ng/mL Sufficient 30 to 100 ng/mL Potential Intoxication >100 ng/mL According to the [place] National Osteoporosis Foundation, Vitamin D concentrations >30 ng/mL are sufficient to protect bone health. ??The National Kidney Foundation has similarly stated that patients with Vitamin D concentrations <30ng/mL should be considered to be insufficient or deficient. http://Localmint/nkf-guidelines http://Localmint/nejm-VitD The [employer] i[employer] Vitamin D Immunoassay detects both 25-OH Vitamin D2 and 25-OH Vitamin D3, but only a total Vitamin D concentration is reported. Blood specimen (specimen) 08/22/2017 1:45 PM EDT 08/23/2017 7:46 AM EDT Narrative Resulting Agency Comment Spec In Lab sOman Orellana MD CHEMISTRY ORDERABLES Performing Organization Address [facility] Co de Phone Number [facility] [place] [address] * (ABNORMAL) PTH (08/22/2017 1:45 PM EDT) Parathyroid Hormone 77(H) 15 - 65 pg/mL [facility] Blood specimen (specimen) 08/22/2017 1:45 PM EDT 08/22/2017 1:51 PM EDT Narrative Resulting Agency Comment Spec In Lab Osman Orellana MD CHEMISTRY ORDERABLES Performing Organization Address [facility] Co de Phone Number [facility] [place] [address] * Albumin Level (08/22/2017 1:45 PM EDT) Albumin 4.8 3.2 - 5.2 gm/dL [facility] Blood specimen (specimen) 08/22/2017 1:45 PM EDT 08/22/2017 1:51 PM EDT Narrative Resulting Agency Comment Spec In Lab Osman Orellana MD CHEMISTRY ORDERABLES Performing Organization Address [facility] Co de Phone Number [facility] [place] [address] * Phosphorus (08/22/2017 1:45 PM EDT) Phosphorus 3.4 2.5 - 4.5 mg/dL [facility] Blood specimen (specimen) 08/22/2017 1:45 PM EDT 08/22/2017 1:51 PM EDT Narrative Resulting Agency Comment Spec In Lab Osman Orellana MD CHEMISTRY ORDERABLES [facility] [place] [address] * (ABNORMAL) Basic Metabolic Panel (non-fasting) (08/22/2017 1:45 PM EDT) Glucose 90 65 - 199 mg/dL [facility] Comment:Diabetes: >=200 mg/d L plus symptoms Blood Urea Nitrogen 20(H) 8 - 18 mg/dL [facility] Creatinine 1.29(H) 0.70 - 1.20 mg/dL [facility] Comment: Please note that the pediatric reference intervals supplied above were not validated at [facility]. Results from pediatric patients should be interpreted in conjunction to the patient's age, height and muscle mass. Sodium 142 135 - 145 mmol/L [facility] Potassium 4.9 3.5 - 5.0 mmol/L [facility] Comment: Please note: ??Patients with WBC >100,000 may have falsely elevated Potassium levels. ??For accurate Potassium quantification in these patients send serum separator tube (gold top) for subsequent determinations. ??Contact the Clinical Chemistry Laboratory if there are any questions. Chloride 102 98 - 107 mmol/L [facility] Carbon Dioxide 24 22 - 31 mmol/L [facility] Anion Gap 16(H) 5 - 15 mmol/L [facility] Calcium 9.4 8.5 - 10.5 mg/dL [facility] Est Glomerular Filtration Rate 43(L) >=60 [facility] Comment: This estimated GFR (eGFR) [...] the following links into your internet browser. http://Localmint/DHnkdep http://Localmint/DHMCnkf Blood specimen (specimen) 08/22/2017 1:45 PM EDT 08/22/2017 1:51 PM EDT Narrative Resulting Agency Comment Spec In Lab Osman Orellana MD CHEMISTRY ORDERABLES [facility] [place] [address] * (ABNORMAL) U Albumin/Cre Ratio (08/22/2017 1:25 PM EDT) Albumin / Creatinin Ratio, Urine 87(H) 0 - 29 mcg/mg Cr [facility] Comment: Reference Ranges: <30 mcg/mg: [...] 2, 357? 362 Albumin, Urine 28.6 mg/L [facility] Creatinine, Urine 33 mg/dL [facility] Urine specimen (specimen) 08/22/2017 1:25 PM EDT 08/22/2017 1:32 PM EDT Narrative Resulting Agency Comment Spec In Lab Osman Orellana MD URINE ORDERABLES [facility] [place] [address] documented in this encounter Visit Diagnoses Diagnosis CKD (chronic kidney disease) stage 3, GFR 30-59 ml/min- Primary Chronic kidney disease, Stage III (moderate) Scleroderma Systemic sclerosis Essential hypertension Unspecified essential hypertension Hyperparathyroidism due to renal insufficiency Secondary hyperparathyroidism (of renal origin) documented in this encounter Care Teams Java Lead Developer Relationship Specialty Start Date End Date Yaritza Pierre MD [address] [place] [address] PCP - General 03/27/12 11/27/18 documented as of this encounter
--- OUTSIDE RECORDS SUMMARY | 2024-09-14 13:09 | XMS_ITS | Encounter Summary ---
Author Organization [facility] [place] [address] Care Team Providers Care Envelope Addresser Name Role Phone Yaritza Pierre MD Primary Care Provider [phone] Reason for Referral * Physical Therapy (Routine) - Closed Specialty Diagnoses / Procedures Referred By Contac t Referred To Contact Physical Therapy Diagnoses Chronic bilateral thoracic back pain Myofascial pain Jacklyn Phelps, FREIGHT AIR BRAKE FITTER [facility] [place] [address] [facility] [place] [address] Referral ID Status Reason Start Date Expiration Date V isits Requested Visits Authorized [id number] Closed Evaluate and Treat 02/24/2017 02/24/2018 1 1 Reason for Visit * Reason Comments Pain Management Back Pain Pain, Chronic * Consultation (Routine) - Closed Specialty Diagnoses / Procedures Referred By Contac t Referred To Contact Pain Management Diagnoses back pain, pain in thoracic spine, chronic pain Yaritza Pierre MD [address] [place] [address] [facility] [address] [place] [address] Referral ID Status Reason Start Date Expiration Date V isits Requested Visits Authorized [id number] Closed Consult, Test & Treat Connection Center 02/15/2017 02/15/2018 1 1 Encounter Details Date Type Department Care Team (Late st Contact Info) Description 02/24/2017 9:30 AM EDT Office [place] [address] Jacklyn Phelps APRN [facility] [place] [address] Chronic bilateral thoracic back pain; Myofascial pain Social History Tobacco Use Types Packs/Day Years [...] Sign Reading Time Taken Comments Blood Pressure 106/61 02/24/2017 9:29 AM EDT Pulse 87 02/24/2017 9:29 AM EDT Temperature - - Respiratory Rate - - Oxygen Saturation 98% 02/24/2017 9:29 AM EDT Inhaled Oxygen Concentration - - Weight 64.4 kg (142 lb) 02/24/2017 9:29 AM EDT Height 170.2 cm (5' 7) 02/24/2017 9:29 AM EDT Body Mass Index 22.24 02/24/2017 9:29 AM EDT documented in this encounter Patient Instructions * Patient Instructions* Jacklyn Phelps APRN - 02/24/2017 9:30 AM EDT - Please consider massage therapy - Proceed with Gurjit PT in the [facility]-- they will help you coordinate this appointment - Focus on maintaining an upright posture, try to limit activities in which you are bent over - I have sent Lidocaine Patches to [employer]. If your insurance does not cover them, there is an over the counter patch you can buy. - Use heat before exercise and stretching, use ice following exercise/stretching. documented in this encounter Progress Notes * Jacklyn Phelps APRN - 02/24/2017 9:30 AM EDT Images from the original note were not included. [facility] [place] [address] Phone: PAIN MANAGEMENT NEW PATIENT / CONSULTATION NOTE DATE OF VISIT 02/24/2017 Patient Amber Wells 1960 REFERRING PROVIDER Yaritza Pierre MD [address] [place] [address] PRIMARY CARE PROVIDER Yaritza Pierre MD CHIEF COMPLAINT: Amber Wells is a 56 y.o. female with back pain, who is seen in consultation at the request ofDr. Pierre for evaluation, recommendations, and management. The history is obtained from the patient, and I have reviewed medical records, provided by the referring physician and located in the [facility] medical record, to fill in gaps in the patient's recollection of events, treatments, and outcomes. HPI Ms. Wells has thoracic back pain which has been present since 2015 without inciting event, she did not have thoracic back pain prior to this. 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 She lives a very active lifestyle, but she is noticing functional limitations with back pain and scleroderma. 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 She likes to cross- country ski, and this does not cause her pain. She also has a history of scleroderma (followed by plastic surgery and rheumatology), stage 3 kidney disease (was formerly on HD, but no longer).. Pain Assessment: - Intermittent, variable aching in the bilateral mid thoracic region (does not include midline spine, does not radiate to flank or anterior chest) -- gets it about every other day, but once it occursshe is in pain the rest of the day - No numbness, tingling, weakness - No saddle anesthesia - Aggravated by: no patterns, when standing up in shopping center and working around the home - Alleviated by: heat pad, rest - Average pain in past week: 8/10 when the pain occurs FUNCTIONAL /SOCIAL Lives with: boyfriend Work: retired, works around the house Interference with activities/ADL: able to care for self and home Exercise/activities: PT exercises at home every day, walks, bikes, cross country ski CURRENT THERAPIES: - Heat - Home PT exercises PAST THERAPIES: - Physical therapy (last session 2016) - Ibuprofen- no relief - Tylenol- no relief MEDICATIONS [facility] Prescription Monitoring Program was checked and no concerns were identified. Medications 02/24/17 0938 Medication Sig Taking? LIDOCAINE 2 % Solution APPLY TO PAINFUL AREAS IF NEEDED Yes amLODIPine (NORVASC) 10 mg Tablet Take 2 tablets by mouth daily. Yes fosinopril (MONOPRIL) 20 mg Tablet Take 1 tablet by mouth daily. Yes sildenafil (REVATIO) 20 mg Tablet Yes acetaminophen (TYLENOL) 500 mg Tablet Take 2 tablets by mouth every 8 hours as needed for Pain. Yes aspirin 81 mg Tablet, Chewable Take 81 mg by mouth daily. Yes esomeprazole (NEXIUM) 40 mg Capsule, Delayed Release(E.C.) Take 1 capsule by mouth daily. Yes loperamide (IMMODIUM) 2 mg Capsule Take [...] onto the skin every 6 hours. Yes ADVERSE DRUG REACTIONS Allergies as of 02/24/2017 ??? (No Known Allergies) REVIEW OF SYSTEMS Constitutional: denies fever, chills, + mild weight gain (due to bad winter), fatigue HEENT: denies headaches, blurry vision/vision changes, difficulty hearing Cardiac: denies chest pain, palpitations, + lower extremity edema (thinks related to Norvasc) Lungs: denies shortness of breath, wheezing, cough GI: + constipation, denies nausea or vomiting, black or bloody stool, loss of control of bowel : denies frequency, urgency, hesitation, or incontinence Neuro: denies changes in attention or orientation; denies dizziness, tremors Muscloskeletal: denies joint swelling, use of ambulatory aide, falls Skin: denies open sores or rashes, pruritis Psychological/Mood: good, but worried about her health and pain; denies suicidal/homicidal ideations Sleep: no issues, interrupted due to need to urinate RISK ASSESSMENT Smoking: no Alcohol (present/past): no, denies history Illegal/prescription drug misuse (present/past): no, denies history MEDICAL HISTORY Past Medical History: Diagnosis Date ??? Anemia [...] syndrome 1990 ??? Scleroderma 1991 Diffuse scleroderma. SURGICAL HISTORY Past Surgical History: Procedure Laterality Date ??? CREATED BY INTERFACE Entered not Verified Procedure Date: 01/27/2011 ??? CREATED BY INTERFACE No History of Operative Procedures Procedure Date: 01/27/2011 ??? DILATION AND CURETTAGE OF UTERUS ??? PRO APPLY FOREARM SPLINT, STATIC Left 04/08/2016 SPLINT APPLICATION, SHORT ARM performed by Andre Marroquin MD at [facility] MAIN OR ??? PRO ENDOSCOPIC US EXAM, ESOPH N/A 03/29/2016 UPPER EUS- ENDOSCOPIC ULTRASOUND performed by Darryl Ash MD at [facility] ENDOSCOPY ??? PRO REBL VES VEIN GRFT, UP EXTREM Left 04/08/2016 REPAIR BLOOD VESSEL WITH VEIN GRAFT, UPPER EXTREMITY performed by Andre Marroquin MD at [facility] MAIN OR ??? PRO UPPER GI ENDOSCOPY, BIOPSY N/A 03/29/2016 UPPER GASTROINTESTINAL ENDOSCOPY,WITH BIOPSY SINGLE OR MULTIPLE performed by Darryl Ash MD at [facility] ENDOSCOPY ??? PRO VEIN BYPASS GRAFT, BRACHIAL ULNAR OR RADIAL Right 10/07/2016 @BYPASS GRAFT, BRACHIAL-ULNAR OR RADIAL W\VEIN (VASC) performed by Andre Marroquin MD at [facility] MAIN OR ??? 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 Glaucoma Brother ??? Diabetes Maternal Grandmother ??? Cancer Neg Hx PHYSICAL EXAMINATION Body mass index is 22.24 kg/(m^2). BP 106/61 Pulse 87 Ht 170.2 cm (5' 7) Wt 64.4 kg (142 lb) LMP 11/27/2014 SpO2 98% BMI 22.24 kg/m2 Appearance/ Behavior Well groomed, good eye contact, relaxed, cooperative, normal speech, no acute distress. Bright, appropriate mood. Seen alone. Eyes Pupils round and equal, extraoccular movements intact. No conjunctival injection or excessive tearing. Sclera non-icteric. ENT Hearing grossly intact Lungs Clear to auscultation bilaterally, non-labored. Cardiovascular Rate and rhythm regular without murmur. Skin No rash, asymmetric hair loss, bruises, scars, swelling, or masses noted. Skin diffusely reddened, skin on fingers, forearms, and feet taught. Vascular warm to touch, + 2 pulses in bilateral upper and lower extremities, no edema Focused Musckuloskeletal/Neurological Inspection: Gait: Steady, nonantalgic Assistive device: No Heel, toe, tandem walk: Normal Stands with level hips and normal alignment, no excessive curvature/scoliosis, although stands withthoracic spine mildly kyphotic compared to normal No skin breakdown, well-healed thoracic scar Palpation: Tender to palpation in bilateral mid thoracic paraspinous muscles Range of Motion/Facet Loading: Full range of motion with lumbar spine flexion and extension Motor Strength: Segment?? Muscle?? Action?? Left?? Right?? C5?? Deltoid ?? Shoulder Abduction?? 5?? 5?? C6?? Biceps ?? Elbow flexion?? 5?? 5?? C6?? Extensor carpi radialis ?? Wrist extension?? 5?? 5?? C7?? Triceps?? Elbow extension?? 5?? 5?? C8?? Finger flexors?? Grasp?? 5?? 5?? L2?? Iliopsoas?? Hip flexion ?? 5?? 5?? L3?? Quadriceps?? Knee extension?? 5?? 5?? L4?? Tibialis anterior?? Dorsiflexion?? 5?? 5?? L5?? Extensor hallucis?? Great toe extension?? 5?? 5?? S1?? Gastrocnemius?? Plantar flexion?? 5?? 5? Reflexes: Reflex?? Left?? Right?? Biceps?? 2+?? 2+?? Triceps?? 2+?? 2+?? Brachioradialis 2+ 2+ Patellar?? 2+ 2+ Achilles 2+?? 2+?? Babinski downgoing?? downgoing?? Clonus negative negative Henderson negative negative ?? Sensory: No sensory deficits noted in bilateral upper and lower extremity dermatomes RADIOGRAPHIC STUDIES I have personally reviewed images from the following studies: Thoracic MRI 02/01/17 FINDINGS: Alignment is anatomic in the disc [...] of the upper back, no abnormalities identified. ASSESSMENT Ms. Wells has chronic thoracic back pain consistent with myofascial pain in the bilateral latissimus dorsi thoracic muscles likely secondary to muscle overuse and poor posture. She does have a kyphotic thoracic posture, and her pain is worse when she does activities in which she is stooped forward. During activities in which her spine is straight, she does not have any pain. She has been doing what sounds like intensive back exercises, which include weights, which may be aggravating her pain at this time. She does not have any etiology for her pain on thoracic MRI, which is essentially normal. She has no concerning findings on physical exam for nerve or spinal cord compression. She continues to maintain an active lifestyle, but the pain makes it hard for her to function to the level that she would like. Unfortunately she is unable to use NSAIDs due to her renal function. PLAN/RECOMMENDATIONS 1. Discussed conservative treatments at this time. Briefly discussed TPI as a future option, but I explained to her at that there is a significant risk of puncturing a lung and causing pneumothorax since the muscles that I would target are so close to the lungs. I advised her that I would like to hold off on this for now, and she is in agreement. 2. Referral placed for Gurjit physical therapy. We discussed that this would help her learn stretches and postural changes that may improve her pain. -- We discussed the importance of good posture,and a straight spine. I've encouraged her to avoid activities in which her thoracic spine is bent forward (and to at least pace these activities and to take frequent breaks), and to also be cognizantof her posture while she is out shopping. Discussed the importance of stretching daily when managing myofascial pain. 3. Prescribed Lidocaine 5% patches to apply to the thoracic spine area, especially during activities which usually provoked the pain. 4. Briefly discussed Diclofenac gel, but advised her that it could affect her renal function, and therefore she should discuss with her PCP. 5. Encouraged her to use heat prior to exercise and activities, and ice following exercise and activities. Also encouraged her to decrease her intense back exercises at this time, and focused more onstretching these muscles. If she finds that this is not helpful, then she can return to her previous exercises. I've also encouraged her to consider massage therapy. May also consider aqua therapy inthe future. Follow up as needed- she will email me to let me know how everything is going. If she needs to follow up then she will coordinate with another appointment at [facility] since she lives so far away. Amber Moralesn had the opportunity to ask questions and indicated that all questions were answered to her satisfaction. Thank you for this referral, Yaritza Pierre MD [address] [place] [id number]. Jacklyn Phelps, MSN, [employer] TECHNICIAN-BC, FREIGHT [employer] BRAKE FITTER Nurse Practitioner [facility] documented in this encounter Plan of Treatment Upcoming Encounters Date Type Department Care Team (Late st Contact Info) Description 10/07/2024 11:30 AM EST Office Visit Dermatology at [facility] [address] [place] [phone] Jo Ordaz MD [facility] [place] [address] 12/13/2024 11:30 AM EST Appointment Pulmonology at [place] [phone] 12/13/2024 1:00 PM EST Office [place] [phone] Kiet Pardo MD [facility] [place] [address] Scheduled Referrals Name Type Priority Associated Diagnoses Orde r Schedule Referral to Physical Therapy Outpatient Referral Routine Chronic bilateral thoracic back pain Myofascial pain Ordered: 02/24/2017 documented as of this encounter Visit Diagnoses Diagnosis Chronic bilateral thoracic back pain Myofascial pain Mylagia and myositis, unspecified documented in this encounter Care Teams Envelope Addresser Relationship Specialty Start Date End Date Yaritza Pierre MD [address] [place] [id number] PCP - General 03/27/12 11/27/18 documented as of this encounter
--- OUTSIDE RECORDS SUMMARY | 2024-09-14 13:09 | XMS_ITS | Encounter Summary ---
[place] [address] Care Team Providers Care Nutritional Assistant Name Role Phone Yaritza Pierre MD Primary Care Provider [phone] Reason for Visit * Reason Onset Date Comments Prior Authorization 10/02/2017 Encounter Details Date Type Department Care Team (Late st Contact Info) Description 10/02/2017 Telephone [place] [phone] Jodi Pressley Prior Authorization Social History Tobacco [...] * Telephone Encounter - Jodi Pressley - 10/02/2017 10:54 AM EST Medication Prior Authorization DIPESH Medication name/dose/directions: TADALAFIL 20MG - ONCE DAILY Rationale for request: RAYNAUD'S DISEASE Health plan: [employer] (FAX) Authorizing service support representative name: FERMIN Faxed to health plan on: 10/02/17 Health plan decision: DENIED Quantity approved: THE MEDICATION REQUESTED IS LISTED EXCLUDED IN THE PLANS FORMULARY. THEREFORE, THE REQUESTED COVERAGE OF CIALIS 20MG TABLET IS DENIED IT IS SPECIFICALLY EXCLUDED FROM COVERAGE, REGARDLESS OF MEDICAL NECESSITY, UNDER YOUR PLAN Authorization number: [id number] Start date: End date: documented in this encounter Plan of Treatment Upcoming Encounters Date Type Department Care Team (Late st Contact Info) Description 10/07/2024 11:30 AM EST Office Visit Dermatology at [place] [address] [place] [address] Jo Ordaz MD [facility] [place] [address] 12/13/2024 11:30 AM EST Appointment [place] [phone] 12/13/2024 1:00 PM EST Office [place] [address] Kiet Pardo MD [facility] [address] documented as of this encounter Visit Diagnoses Not on filedocumented in this encounter Care Teams Nutritional Assistant Relationship Specialty Start Date End Date Yaritza Pierre MD [address] [place] [phone] PCP - General 03/27/12 11/27/18 documented as of this encounter
--- OUTSIDE RECORDS SUMMARY | 2024-09-14 13:09 | XMS_ITS | Encounter Summary ---
Author Organization [facility] [place] [address] Care Team Providers Care Card Services Specialist Name Role Phone Yaritza Pierre MD Primary Care Provider [phone] Encounter Details Date Type Department Care Team (Late st Contact Info) Description 09/27/2017 11:30 AM EST Office [place] [address] Yu Mcdonough, [facility] [place] [address] Scleroderma Social History Tobacco Use Types Packs/Day [...] Sign Reading Time Taken Comments Blood Pressure 106/73 09/27/2017 11:09 AM EST Pulse 72 09/27/2017 11:09 AM EST Temperature - - Respiratory Rate 18 09/27/2017 11:09 AM EST Oxygen Saturation 100% 09/27/2017 11:09 AM EST Inhaled Oxygen Concentration - - Weight 62.6 kg (138 lb) 09/27/2017 11:09 AM EST Height 170.2 cm (5' 7) 09/27/2017 11:09 AM EST Body Mass Index 21.61 09/27/2017 11:09 AM EST documented in this encounter Progress Notes * Yu Mcdonough DO - 09/27/2017 11:30 AM EST PROBLEM LIST: 1. Diffuse systemic sclerosis. (A) Initially diagnosed [place] [address] Placido Lora at [facility] in [place]. Then followed by Dr. Peyton Hinton in [facility] in [place] in 04/2010. . Echo and PFTs 12/09/11 both normal. (B) Treatment in the past has included intermittent penicillamine and methotrexate, however, she has been off immunosuppressive therapy since approximately 2005. (C) Hospitalization in 03/2010 in [place] with scleroderma hypertensive renal crisis, on dialysis for two months ending in mid 06/2010. (D) One visit with Dr. Ten Gonzalez in [place], [place] in late 2009. 2. Chronic kidney disease, stage III, with associated anemia. Currently followed by Dr. Sumit Sawyer in nephrology. 3. Raynaud's symptoms. 4. GERD. HPI: I last saw Amber briefly in March when she had an infected finger. She wrote to me on 09/19 describing painful ulcers on several of her fingers. She saw Dr. Marroquin today and it sounds like heis going to try to get Botox approved for injection into her fingers. She currently has painful pitting areas on 3 of her fingers. Nothing looks infected today. She is taking sildenafil 20 mg 5 timesper day and Norvasc 10 mg twice daily. She is feeling a little bit lightheaded. Her systolic blood pressure today is 106. She followed up with nephrology in early August. Her kidney function is stable. Labs at that time were all stable. ??Physical examination: General: Awake alert and oriented ??3 in no acute distress Psych: Mood and affect normal and appropriate Mouth: Dry mucous membranes no oral ulcers Eyes: No scleral icterus Skin: Tight skin around her mouth and on her hands up to her elbows. there is pitting in 3 of her fingertips. There are no open ulcers. She has telangiectasias on her face Joints: Joint contractures in all of her fingers. There is no synovitis Neuro: No focal deficits Assessment: Systemic sclerosis with GERD, Raynaud's, sclerodactyly and a hx of scleroderma renal crisis and now stage 3 CKD followed in nephrology. Her raynaud's phenomenon has been the most difficult part of her scleroderma to treat recently. She is on maximal sildenafil and Norvasc at 20 mg per day is causing lower extremity edema Plan: Stop sildenafil and start tadalafil 20 mg daily Decrease Norvasc to 10 mg once per day. Hopefully she will be able to receive Botox injections from Dr. Marroquin. She does not need labs today. I will schedule her for a follow-up in 6 months but she knows to contact me if she needs anything in the interim. documented in this encounter Plan of Treatment Upcoming Encounters Date Type Department Care Team ([facility] st Contact Info) Description 10/07/2024 11:30 AM EST Office Visit Dermatology at [address] [phone] Jo Ordaz MD [facility] [place] [address] 12/13/2024 11:30 AM EST Appointment [place] [phone] 12/13/2024 1:00 PM EST Office [place] [address] Kiet Pardo MD [facility] [place] [address] documented as of this encounter Visit Diagnoses Diagnosis Scleroderma Systemic sclerosis documented in this encounter Care Teams Card Services Specialist Relationship Specialty Start Date End Date Yaritza Pierre MD [address] [place] [phone] PCP - General 03/27/12 11/27/18 documented as of this encounter
--- OUTSIDE RECORDS SUMMARY | 2024-09-14 13:09 | XMS_ITS | Encounter Summary ---
Author Organization [facility] Address [facility] [place] [address] Care Team Providers Care Rda Name Role Phone Yaritza Pierre MD Primary Care Provider [phone] Reason for Referral * Occupational Therapy (Routine) - Closed Specialty Diagnoses / Procedures Referred By Wander hernandez Referred To Contact Diagnoses Scleroderma Andre Marroquin MD [facility] [address] Unknown None Referral ID Status Reason Start Date Expiration Date V isits Requested Visits Authorized [id number] Closed Evaluate and Treat 10/12/2016 04/10/2017 12 12 Reason for Visit * Reason Comments Follow-up right ulnar artery t ariadna Encounter Details Date Type Department Care Team (Late st Contact Info) Description 10/12/2016 10:30 AM EST Office Visit Plastic Surgery at [facility] [address] [place] [address] Andre Marroquin MD [facility] [address] Scleroderma Social History Tobacco Use Types Packs/Day [...] Progress Notes * Andre Marroquin MD - 10/12/2016 10:30 AM EST Plastic Surgery Post Op Note Reason for visit: F/U status post procedure Date of surgery: 10/07/16 Procedure(s): Ulnar artery transfer into cephalic vein. Complications: None reported HPI: Pt reports she is doing well, she has been sleeping a lot since surgery. Examination: Patient is alert, conversant, comfortable, ambulating Incision: CDI, healing well. No signs of infection Able to flex and extend at elbow, wrist, fingers with expected stiffness Palpable pulse just proximal to wrist Impression: Amber Wells is a 56 y.o. female who was seen today for follow- up after the above procedure. Please see the operative note for details. She is doing well. Discussed that she can range her wrist and elbow, as tolerated. She prefers to wait until next week before beginning OT. Recommended against future blood draw of right arm. We discussed that at this point, I would recommend agai nst surgical intervention to her ear unless she develops skin breakdown. Plan: Follow up 4-6 weeks Ok for PCP to remove dissolving sutures if bothersome Ok to wash incision with soap and water. Begin OT in 1 week - external referral given IValentina, am acting as scribe for Dr Marroquin. [...] [facility] [address] [place] [address] Jo Ordaz MD [facility] [place] [address] 12/13/2024 11:30 AM EST [place] [address] 12/13/2024 1:00 PM EST Office [place] [address] Kiet Pardo MD [facility] [place] [address] Scheduled Referrals Name Type Priority Associated Diagnoses Order Schedule Referral to Occupational Therapy Outpatient Referral Routine Scleroderma Ordered: 10/12/2016 documented as of this encounter Visit Diagnoses Diagnosis Scleroderma Systemic sclerosis documented in this encounter Care Teams Rda Relationship Specialty Start Date End Date Yaritza Pierre MD [address] [place] [address] PCP - General 03/27/12 11/27/18 documented as of this encounter
--- OUTSIDE RECORDS SUMMARY | 2024-09-14 13:10 | XMS_ITS | Encounter Summary ---
Author Organization [facility] Address [facility] [place] [address] Care Team Providers Care Tight Barrel Inspector Name Role Phone Yaritza Pierre MD Primary Care Provider [phone] Encounter Details Date Type Department Care Team (Late st Contact Info) Description 07/14/2016 Orders [place] [address] Breanna Ordoñez MD [facility] [place] [address] CKD (chronic kidney disease), stage 3 (moderate) (Primary Dx) Social History Tobacco Use Types [...] Dermatology at [facility] [address] [place] [address] Jo Ordaz MD [facility] [address] 12/13/2024 11:30 AM EST Appointment Pulmonology at [place] [phone] 12/13/2024 1:00 PM EST Office [place] [phone] Kiet Pardo MD [facility] [place] [address] documented as of this encounter Visit Diagnoses Diagnosis CKD (chronic kidney disease), stage 3 (moderate)- Primary documented in this encounter Care Teams Tight Barrel Inspector Relationship Specialty Start Date End Date Yaritza Pierre MD [address] [place] [address] PCP - General 03/27/12 11/27/18 documented as of this encounter
--- OUTSIDE RECORDS SUMMARY | 2024-09-14 13:10 | XMS_ITS | Encounter Summary ---
Author Organization [facility] Address [facility] [place] [address] Care Team Providers Care Cadmium Plater Name Role Phone Yaritza Pierre MD Primary Care Provider [phone] Encounter Details Date Type Department Care Team (Late st Contact Info) Description 05/28/2016 [place] [address] Thu Ewing MD [facility] DR [place] [address] Social History Tobacco Use Types Packs/Day Years [...] encounter Miscellaneous Notes * Telephone Encounter - Thu Ewing - 05/28/2016 11:54 PM EDT Call received from ER at [facility] (Dr. Brittni Irene), Amber is in the ED todayafter she was [place] [employer] [place] and noticed her Rt 3rd digit become blue and purple and did not return to normal color despite warming her core. There appear to be ongoing issues over the last week with worsening raynaud in this digit and her PCP increased Norvasc to 20 mg. Per report today she appears anxious and in pain. Rt 3rd digit appears cynotic no necrosis or white discoloration and multiple old digital ulcers. In the ED she has received benzodiazepine, norvasc and re-warming of her core. I discussed case with Dr. Mcdonough, she has been in commiication with PCP over the past week. Amber discontinud Sildenafil for fecal incontinence and is awaiting appoitment with [facility] for vascular reconstruction in RT hand. Plan - we recommend resuming the Sildenafil 20 mg TID (ED attending thinks she has taken a dose today) - adequate pain management with opiates - topical nitro ointment as prescribed - if episode reoccurs again I advice the team to instruct her to come to [facility] ER for evaluation. ED team is feeling re-assured her symptoms finger discoloration is improving. She is being discharged home tonight with above instructions. Thu Ewing MD Rheumatology Fellow documented in this encounter Plan of Treatment Upcoming Encounters Date Type Department Care Team (Late st Contact Info) Description 10/07/2024 11:30 AM EST Office Visit Dermatology at [place] [address] [place] [address] Jo Ordaz MD [facility] [place] [address] 12/13/2024 11:30 AM EST [place] [address] 12/13/2024 1:00 PM EST Office [place] [phone] Kiet Pardo MD [facility] [place] [address] documented as of this encounter Visit Diagnoses Not on filedocumented in this encounter Care Teams Cadmium Plater Relationship Specialty Start Date End Date Yaritza Pierre MD [address] [place] [address] PCP - General 03/27/12 11/27/18 documented as of this encounter
--- OUTSIDE RECORDS SUMMARY | 2024-09-14 13:10 | XMS_ITS | Encounter Summary ---
[place] [address] Care Team Providers Care Non Emergency Services Ambulance Driver Name Role Phone Yaritza Pierre MD Primary Care Provider [phone] Encounter Details Date Type Department Care Team (Late st Contact Info) Description 06/02/2016 Telephone [place] [phone] Krystal Harris Social History Tobacco Use Types [...] * Telephone Encounter - Krystal Harris - 06/02/2016 10:47 AM EDT Radiology questions documented in this encounter Plan of Treatment Upcoming Encounters Date Type Department Care Team (Late st Contact Info) Description 10/07/2024 11:30 AM EST Office Visit Dermatology at [address] [place] [address] Jo Ordaz MD [facility] [place] [address] 12/13/2024 11:30 AM EST [place] [address] 12/13/2024 1:00 PM EST [place] [phone] Kiet Pardo MD [facility] [place] [address] documented as of this encounter Visit Diagnoses Not on filedocumented in this encounter Care Teams Non Emergency Services Ambulance Driver Relationship Specialty Start Date End Date Yaritza Pierre MD [address] [place] [address] PCP - General 03/27/12 11/27/18 documented as of this encounter
--- OUTSIDE RECORDS SUMMARY | 2024-09-14 13:10 | XMS_ITS | Encounter Summary ---
Author Organization [facility] Address [facility] [place] [address] Care Team Providers Care Ceo [employer] Founder Name Role Phone Yaritza Pierre MD Primary Care Provider [phone] Reason for Referral * Occupational Therapy (Routine) - Closed Specialty Diagnoses / Procedures Referred By Wander hernandez Referred To Contact Diagnoses Scleroderma Andre Marroquin MD [facility] [place] [address] Unknown None Referral ID Status Reason Start Date Expiration Date V isits Requested Visits Authorized [id number] Closed Evaluate and Treat 04/20/2016 10/17/2016 12 12 Reason for Visit * Reason Comments Follow Up Surgery left ulnar artery re construction Encounter Details Date Type Department Care Team (Late st Contact Info) Description 04/20/2016 7:15 AM EDT Office Visit Plastic Surgery at [facility] [address] [place] [address] Andre Marroquin MD [facility] [place] [address] Scleroderma Social History Tobacco Use Types Packs/Day [...] this encounter Patient Instructions * Patient Instructions* Valentina Nye - 04/20/2016 7:38 AM EDT Plan: 1. Follow up 6 weeks 2. Ok to begin using arm, ok to lift and progressive care nurse objects. 3. Ok to shower and wash incision with soap and water. 4. Begin hand therapy for ROM 5. Continue to take aspirin 81 mg for 3 months documented in this encounter Progress Notes * Valentina Nye - 04/20/2016 7:21 AM EDT Plastic Surgery Post Op Note Reason for visit: F/U status post procedure Date of surgery: 04/08/16 Procedure(s): Left ulnar artery resection and reconstruction with left cephalic vein Complications: None reported Pain: 01/27 HPI: Pt reports she has been well. She reports she had hallucinations from taking her narcotics. Nofevers, no hand numbness. Examination: Patient is alert, conversant, comfortable, ambulating Left forearm incisions: CDI, healing well. No signs of infection Expected stiffness of wrist/fingers, ulnar artery reconstruction palpable, fingers warm/pink/senate Impression: Amber Wells is a 55 y.o. female who was seen today for follow- up after the above procedure. Please see the operative note for details. We discussed that she can begin hand therapy, I recommended she avoid trauma/direct heavy pressure to wrist. Plan: 1. Follow up 6 weeks 2. Ok to begin using arm, ok to lift and progressive care nurse objects. 3. Ok to shower and wash incision with soap and water. 4. Begin hand therapy for ROM 5. Continue to take aspirin 81 mg for 3 months Valentina Wall, am acting as scribe for Dr Marroquin. [...] at [facility] [address] [place] [address] Jo Ordaz MD [facility] [place] [address] 12/13/2024 11:30 AM EST [place] [phone] 12/13/2024 1:00 PM EST [place] [phone] Kiet Pardo MD [facility] [address] Scheduled Referrals Name Type Priority Associated Diagnoses Order Schedule Referral to Occupational Therapy Outpatient Referral Routine Scleroderma Ordered: 04/20/2016 documented as of this encounter Visit Diagnoses Diagnosis Scleroderma Systemic sclerosis documented in this encounter Care Teams Ceo & Co Founder Relationship Specialty Start Date End Date Yaritza Pierre MD [address] [place] [address] PCP - General 03/27/12 11/27/18 documented as of this encounter
--- OUTSIDE RECORDS SUMMARY | 2024-09-14 13:10 | XMS_ITS | Encounter Summary ---
[place] [address] Care Team Providers Care Coil Machine Supervisor Name Role Phone Yaritza Pierre MD Primary Care Provider [phone] Encounter Details Date Type Department Care Team (Late st Contact Info) Description 07/14/2016 Telephone [place] [address] Kristin Hicks Social History Tobacco Use Types Packs/Day Years [...] Miscellaneous Notes * Telephone Encounter - Kristin Hicks - 07/14/2016 8:21 AM EDT RADIOLOGY SAFETY QUESTIONS MRI Scheduling Questions: Patient's Weight: 135 Is the patient claustrophobic? (Yes/No) YES - LARGE BORE Has patient ever required sedation for an MRI? (Yes/No) NO Oral IV Anesthesia Does the patient have difficulty breathing while lying flat? (Yes/No) NO Does the patient have mobility concerns? (Yes/No) NO Does the patient have a Mediport? (Yes/No) NO Is patient coming from a Detention Facility? (Yes/No) NO documented in this encounter Plan of Treatment Upcoming Encounters Date Type Department Care Team (Late st Contact Info) Description 10/07/2024 11:30 AM EST Office Visit Dermatology at [facility] [address] [place] [address] Jo Ordaz MD [facility] [place] [address] 12/13/2024 11:30 AM EST [place] [address] 12/13/2024 1:00 PM EST [place] [phone] Kiet Pardo MD [facility] [address] documented as of this encounter Visit Diagnoses Not on filedocumented in this encounter Care Teams Coil Machine Supervisor Relationship Specialty Start Date End Date Yaritza Pierre MD [address] [place] [address] PCP - General 03/27/12 11/27/18 documented as of this encounter
--- OUTSIDE RECORDS SUMMARY | 2024-09-14 13:10 | XMS_ITS | Encounter Summary ---
Author Organization [facility] Address [facility] [place] [address] Care Team Providers Care Conference Services Director Name Role Phone Yaritza Pierre MD Primary Care Provider [phone] Reason for Visit * Auth/Cert Specialty Diagnoses / Procedures Referred By Wander hernandez Referred To Contact Diagnoses Abnormal MRE~pancreatic divisum, and question of IPMN. H/o GERD, early satiety, postprandial fullness, Scleroderma. Procedures PRO ENDOSCOPIC US EXAM, ESOPH UPPER EUS- ENDOSCOPIC ULTRASOUND Referral ID Status Reason Start Date Expiration Date Visits Re quested Visits Authorized [id number] 1 1 Encounter Details Date Type Department Care Team (Late st Contact Info) Description 03/29/2016 9:15 AM EDT - 03/29/2016 10:15 AM EDT [place] [address] Darryl Ash MD [facility] [place] [address] UPPER EUS- ENDOSCOPIC ULTRASOUND (WRVU 3.47) Social History Tobacco Use Types Packs/Day Years [...] Sign Reading Time Taken Comments Blood Pressure 106/78 03/29/2016 8:25 AM EDT Pulse 75 03/29/2016 8:25 AM EDT Temperature - - Respiratory Rate 16 03/29/2016 8:25 AM EDT Oxygen Saturation 100% 03/29/2016 8:25 AM EDT Inhaled Oxygen Concentration - - Weight - - Height - - Body Mass Index - - documented in this encounter Discharge Instructions * Discharge Instructions* Gunnar Degroot RN - 03/29/2016 12:24 PM EDT Upper GI Endoscopy with Endoscopic Ultrasound (EUS) EUS- a test to look for problems in the stomach, liver, gallbladder, and other organs. After the test you may feel more gassy than usual. This is normal and it should resolve within 48 hours. Activity Because of the sedation that you received your judgement and reaction time are affected ?? Go home and rest quietly for the remainder of the day. You may resume your normal activities tomorrow. ?? Change from one position to the next slowly. You may feel light-headed and lose your balance unexpectedly. ?? Be careful on stairs, as you may be unsteady on your feet. FOR THE NEXT 24 HOURS ?? DO NOT DRIVE OR OPERATE ANY MACHINERY ?? DO NOT DRINK ALCOHOLIC BEVERAGES ?? DO NOT SIGN LEGAL DOCUMENTS ?? If you are a smoker: DO NOT SMOKE WHILE YOU ARE ALONE Diet ?? Start with liquids and progress to small portions of foods that are least likely to upset your stomach. Be gentle with what you choose to start eating again. Avoid gas producing foods for the nextfew days. ?? Drink plenty of fluids ( unless your doctor has told you not to) Medicines You may have a sore throat for a day or two after the test. You may use ice chips, popsicles, [id number] throat lozenges or sprays that may help numb your throat. IV Site Slight redness or tenderness is normal. You can use warm compresses if you get concerned. If the tenderness or redness increases or foul drainage or a red streak occurs, please contact your primary doctor immediately. When should call for help? Call 911 anytime you think you may need emergency care. For example, call if: You pass out ( lost consciousness) You cough up blood You vomit blood or what looks like coffee grounds You pass maroon or very bloody stools Call your Doctor now if: You have trouble swallowing Throat, chest, abdominal pain that gets worse after taking a dose of pain medicine Bloody or dark stools Vomit and are unable to hold fluids Fever Watch closely for any changes in your health, and be sure to contact your doctor if: Your throat still hurts after a day or two You do not get better as expected If you have questions or concerns, you can call us: Monday-Monday Same Day Endoscopy [phone] 7am-8pm NIghts or weekends call [phone] and ask to speak to the store planner legal services professional. documented in this encounter Medications at Time [...] inches onto the skin every 6 hours. docusate sodium (COLACE) 100 mg Capsule Take 1 capsule by mouth 2 times daily for 10 days. 10 capsule 04/09/2016 04/19/2016 aspirin 81 mg Tablet, Chewable Take 81 mg by mouth daily. 30 tablet 3 04/09/2016 08/22/2017 HYDROmorphone (DILAUDID) 2 mg Tablet Take 1-2 tablets by mouth every 4 hours as needed for Pain. 20 tablet 04/09/2016 04/20/2016 ondansetron (ZOFRAN) 4 mg Tablet Take 1 tablet by mouth every 8 hours as needed for Nausea. 20 tablet 04/09/2016 04/20/2016 oxyCODONE (ROXICODONE) 5 mg Tablet Take 1 tablet by mouth every 4 hours as needed for Pain. 20 tablet 04/08/2016 04/20/2016 amLODIPine (NORVASC) 10 mg Tablet Take 1 tablet by mouth daily. 90 tablet 3 03/23/2016 10/26/2016 esomeprazole (NEXIUM) 40 mg Capsule, Delayed Release(E.C.)Indicatio ns:CKD (chronic kidney disease) stage 3, GFR 30-59 ml/min,Scleroderma,CKD (chronic kidney disease), stage 3 (moderate) Take 1 capsule by mouth daily. 90 capsule 3 03/22/2016 04/28/2017 fosinopril (MONOPRIL) 40 mg TabletIndications:Jaimie petersona,CKD (chronic kidney disease) stage 3, GFR 30-59 ml/min Take 1 tablet by mouth daily. 90 tablet 3 03/22/2016 09/16/2016 lidocaine-prilocaine (EMLA) cream Apply topically as needed. 30 g 2 05/21/2013 01/09/2020 Acetaminophen 650 mg Tab Take 650 mg by mouth daily as needed. 05/18/2011 09/23/2016 documented as of this encounter H&P Notes * Darryl Ash MD - 03/29/2016 11:32 AM EDT Gastroenterology and Hepatology Pre-Procedure History and Physical Exam Procedure: EGD: , EUS Indication: Pancreas cyst on recent MRI. Indigestion/dyspepsia. Patient Active Problem List Diagnosis Code ??? [...] and fascia M62.9 ??? Fecal incontinence R15.9 EXAM: HEENT: Airway examined, oropharynx clear Mallampati [...] patient. Consent signed. documented in this encounter Plan of Treatment Upcoming Encounters Date Type Department Care Team (Late st Contact Info) Description 10/07/2024 11:30 AM EST Office Visit Dermatology at [address] [address] Jo Ordaz MD [facility] [place] [address] 12/13/2024 11:30 AM EST [place] [address] 12/13/2024 1:00 PM EST [place] [address] Kiet Pardo MD [facility] [place] [address] documented as of this encounter Procedures Procedure Name Priority Date/Time Associated Diagnosis Comments SURGICAL PATHOLOGY REPORT Routine 03/29/2016 12:05 PM EDT SPECIMEN TO PATHOLOGY Routine 03/29/2016 12:05 PM EDT UPPER GASTROINTESTINAL ENDOSCOPY,WITH BIOPSY SINGLE OR MULTIPLE (WRVU 2.39) 03/29/2016 11:42 AM EDT Pancreatic divisum Abnormal CT of the abdomen H/O scleroderma Gastroesophageal reflux disease, esophagitis presence not specified UPPER EUS- ENDOSCOPIC ULTRASOUND (WRVU 3.47) 03/29/2016 11:42 AM EDT Pancreatic divisum Abnormal CT of the abdomen H/O scleroderma Gastroesophageal reflux disease, esophagitis presence not specified UPPER EUS-ENDOSCOPIC ULTRASOUND Routine 03/29/2016 11:35 AM EDT documented in this encounter Results * Surgical Pathology Report (03/29/2016 12:05 PM EDT) Final Diagnosis [id number] ? Location: 4T; EA11; A The signing pathologist has (i) examined the relevant preparation(s) for the specimen(s) and (ii) rendered or confirmed the diagnosis(es). . ?Surgical Pathology DIAGNOSIS Joseph appearing mucosa, 39cm and 41cm, biopsy: - Joseph 's esophagus, negative for dysplasia. 03/29/16 AAY 04/01/16 Verified by: ? Brandon Urrutia MD ?Pathologist ?(Electronic Signature) The attending pathologist whose signature appears on this report has reviewed all diagnostic slides and has edited the gross and/or microscopic portion of the report in rendering the final pathologic diagnosis. CLINICAL INFORMATION Specimen Submitted: A - Joseph appearing mucosa, biopsies from 39cm and 41cm Clinical History: 56-year-old woman with scleroderma Clinical Diagnosis: Same SPECIMEN PROCESSING A - Labeled/Fixativ e: Joseph ??'s appearing mucosa, biopsies from 39 cm and 41 cm, formalin. Quantity/Size: Multiple, ranging from 0.1-0.4 cm. Tissue Description: Soft, claire-pink tissues. Sections/Proces sing: (T2) ??lmp 04/01/2016 2:14 PM EDT [facility] GI Biopsy 03/29/2016 12:0 5 PM EDT 03/29/2016 12:05 PM EDT Darryl Ash MD PATHOLOGY/CYTOLOGY O [employer]DERABLES Performing Organization Address [facility] [place] [address] * Specimen to Pathology (surgical or derm) (03/29/2016 12:05 PM EDT) AP Specimen 03/29/2016 12:0 5 PM EDT 03/29/2016 12:05 PM EDT Narrative [facility] - 03/29/2016 12:05 PM EDT Specimen requisition ordered. ??Separate Pathology report to follow Darryl Ash MD PATHOLOGY/CYTOLOGY O [employer] Performing Organization Address [facility] [place] [address] * UPPER EUS-ENDOSCOPIC ULTRASOUND (03/29/2016 11:35 AM EDT) UPPER ENDOSCOPIC ULTRASOUND [facility] ___ Patient Name: Amber Wells ? Procedure Date: 03/29/2016 11:35 AM ? N: [id number] ? Date of : 1960 ? Age: 55 ? Order #: [id number] ? ___ Procedure: ? Upper EUS Indications: ? Pancreatic cyst on MRI, Dysphagia Providers: ? Darryl Ash MD, Debbie Garcia, ? RN, Katiuska Rosado RN Referring : ?Yaritza Pierre MD Medicines: ? Monitored Anesthesia [...] proposed procedure were verified by ? the physician, the nurse, the ? harvest worker and the customer service technician in the ? endoscopy suite. Mental Status ? Examination: normal. Airway ? Examination: normal oropharyngeal ? airway and neck mobility. Respiratory ? Examination: clear to auscultation. ? CV Examination: normal. Prophylactic ? Antibiotics: The patient does not ? require prophylactic antibiotics. ? Prior Anticoagulants: The patient has ? taken no previous anticoagulant or ? antiplatelet agents. ASA Grade ? Assessment: III - A [...] the ? mouth, and advanced to the third part ? of duodenum. The Endosonoscope was ? introduced through the mouth, and ? advanced to the third part of ? duodenum. The upper EUS was ? accomplished with ease. The patient ? tolerated the procedure well. ? Findings: ? Endoscopic Finding : ? The esophagus and gastroesophageal junction were ? examined with white light. There were esophageal ? mucosal changes suspicious for short-segment ? Joseph's esophagus, extending from the upper extent ? of the gastric folds which were at 39 cm from the ? incisors to the Z-line which was at 37 cm from the ? incisors. [place]-colored mucosa was present. The ? maximum longitudinal extent of these esophageal ? mucosal changes was 2 cm in length. Biopsies were ? taken with a cold forceps for histology. ? A small hiatus hernia was present. (39 to 41cm). ? The entire examined stomach was endoscopically normal. ? The examined duodenum was endoscopically normal. ? Endosonographic Finding : ? Pancreas: An anechoic lesion suggestive of a cyst was ? identified in the pancreatic tail. The lesion ? measured 4 mm by 4 mm in maximal cross-sectional ? diameter. There was a single compartment. There was ? no associated nodule. PD prominent throughout, not ? dilated. Visible side branch in the distal body. ? Above described small cyst appears to be focal ? dilatation of pancreatic duct. ? Liver: two cysts seen in the examined left lobe, ? largest measuring 25mm. ? Nodes: no peripancreatic or celiac nodes seen. ? Impression: ?- EGD: Esophageal mucosal changes ? suspicious for short-segment ? Joseph's esophagus. Biopsied. ? - EUS: very small benign appearing ? cyst (DD focal dilatation of PD). Recommendation: ?- Follow up with referring physician ? - Await path results to confirm ? Joseph's esophagus. ? - Continue PPI. ? - Repeat MRI in 1 year to assess for ? interval change of cyst, if no change ? repeat after additional 2 years. ? Procedure Code(s): ?? --- Professional --- ? 68328, Esophagogastroduode noscopy, ? flexible, transoral; with biopsy, ? single or multiple ? --- Technical --- ? 62771, Esophagogastroduode noscopy, ? flexible, transoral; with biopsy, ? single or multiple CPT copyright 2014 [employer]. All rights reserved. The codes documented in this report are preliminary and upon public health aides teacher review may be revised to meet current compliance requirements. Attending Participation: ? I personally performed the entire procedure. ? Darryl Ash MD 03/29/2016 12:33 PM Number of Addenda: 0 Note Initiated On: 03/29/2016 11:35 AM PROVATION 03/29/2016 11:3 5 AM EDT Yaritza Pierre MD GENERAL SURGICAL ORD ERABLES PROVATION documented in this encounter Visit Diagnoses Diagnosis Pancreatic divisum Congenital anomalies of pancreas Abnormal CT of the abdomen Nonspecific (abnormal) findings on radiological and other examination of abdominal area, including retroperitoneum H/O scleroderma Personal history of other musculoskeletal disorders Gastroesophageal reflux disease, esophagitis presence not specified documented in this encounter Administered Medications Inactive Administered Medications - up to 3 most recent administrations Medication Order MAR Action Action Date Dose Rate Site acetaminophen (TYLENOL) tablet 1,000 mg 1,000 mg, Oral, ONCE PRN, Starting on Mon03/29/16 at 1326, Until Mon03/29/16 at 1532, Pain, Maximum dose of acetaminophen is 4000 mg from all sources in 24 hours., Endoscopy (Recovery-Hospital Unit), Routine Given 03/29/2016 12:45 PM EDT 1,000 mg documented in this encounter Active and Recently Administered Medications Times are shown in EDT. PRN Medication Order 03/27/2016 03/28/2016 03/29/2016 acetaminophen (TYLENOL) tablet 1,000 mg (CANCELED) 1,000 mg, Oral, ONCE PRN, Starting on 03/29/16 at 1326, Until Tu03/29/16 at 1532, Pain, Maximum dose of acetaminophen is 4000 mg from all sources in 24 hours., Endoscopy (Recovery-Hospital Unit), Routine 1245 (Given - [facility] er: Gunnar Degroot RN) documented in this encounter Care Teams Conference Services Director Relationship Specialty Start Date End Date Yaritza Pierre MD [address] [place] [address] PCP - General 03/27/12 11/27/18 documented as of this encounter
--- OUTSIDE RECORDS SUMMARY | 2024-09-14 13:10 | XMS_ITS | Encounter Summary ---
Author Organization [facility] [place] [address] Care Team Providers Care Logging Worker Name Role Phone Yaritza Pierre MD Primary Care Provider [phone] Encounter Details Date Type Department Care Team (Late st Contact Info) Description 07/14/2016 Orders [place] [address] Kristin Hicks Social History Tobacco Use Types [...] AM EST Office Visit Dermatology at [address] [place] [phone] Jo Ordaz MD [facility] [place] [address] 12/13/2024 11:30 AM EST Appointment [place] [address] 12/13/2024 1:00 PM EST Office [place] [address] Kiet Pardo MD [facility] [place] [address] documented as of this encounter Visit Diagnoses Not on filedocumented in this encounter Care Teams Logging Worker Relationship Specialty Start Date End Date Yaritza Pierre MD [address] [place] [id number] PCP - General 03/27/12 11/27/18 documented as of this encounter
--- OUTSIDE RECORDS SUMMARY | 2024-09-14 13:10 | XMS_ITS | Encounter Summary ---
Author Organization Formerly [facility] [place] [address] Care Team Providers Care Beauty Sales Consultant Name Role Phone Yaritza Pierre MD Primary Care Provider [phone] Reason for Visit * Auth/Cert Specialty Diagnoses / Procedures Referred By Wander hernandez Referred To Contact Diagnoses Left ulnar artery recon Procedures PRO APPLY FOREARM SPLINT, STATIC PRO REBL VES VEIN GRFT, UP EXTREM SPLINT APPLICATION, SHORT ARM Referral ID Status Reason Start Date Expiration Date Visits Re quested Visits Authorized [id number] 1 1 Encounter Details Date Type Department Care Team (Latest Contact Info) Description 04/08/2016 9:42 AM EDT - 04/09/2016 2:27 PM EDT Hospital Encounter [place] [id number] Andre Marroquin MD [facility] [place] [address] Discharge Disposition: Home Social History Tobacco Use [...] Sign Reading Time Taken Comments Blood Pressure 117/66 04/09/2016 8:56 AM EDT Pulse 86 04/09/2016 5:00 AM EDT Temperature 36.7 ??C (98.1 ??F) 04/09/2016 8:00 AM ED T Respiratory Rate 16 04/09/2016 8:00 AM EDT Oxygen Saturation 98% 04/09/2016 8:00 AM EDT Inhaled Oxygen Concentration - - Weight 63 kg (139 lb) 04/08/2016 10:04 AM EDT Height 170.2 cm (5' 7) 04/08/2016 10:04 AM EDT Body Mass Index 21.77 04/08/2016 10:04 AM EDT documented in this encounter Discharge Summaries * Sumit Ziegler MD - 04/09/2016 6:39 AM EDT PLASTIC SURGERY DISCHARGE SUMMARY Diagnosis on admission: L ulnar artery disease History: Mrs Carmona is a 55F with reports of pain in L hand and forearm and found to have stenoticdisease of her L ulnar artery likely 2/2 to Raynaud's and scleroderma. Plan for ulnar artery exploration with possible vein graft. Risks and benefits of procedures were discussed with patient and sheagreed to proceed. History obtained through patient interview, review of relevant records, and/or discussion with referring provider. Past Medical History Past Medical History Diagnosis Date ??? Anemia [...] Scleroderma 1991 Diffuse scleroderma. Past Surgical History Past Surgical History Procedure Laterality Date ??? [...] ULTRASOUND performed by Darryl Ash MD at [facility] ??? Pro upper gi endoscopy, biopsy N/A 03/29/2016 UPPER GASTROINTESTINAL ENDOSCOPY,WITH BIOPSY SINGLE OR MULTIPLE performed by Darryl Ash MD at [facility] Procedures: 04/08/2016 Surgeon(s) and Role: * Andre Marroquin MD - Primary * Marty Roa MD: Procedure(s): SPLINT APPLICATION, SHORT ARM REPAIR BLOOD VESSEL WITH VEIN GRAFT, UPPER EXTREMITY Hospital Course: The patient tolerated the above procedure well and was admitted post-operatively for observation and for routine post-operative care. Did well overnight with moderate pain o/n. Switched from PO oxycodone to PO dilaudid. [place] that splint was quite tight, loosened and added padding. She was deemed medically stable for discharge home on POD#1. Prior to discharge her pain was controlled on oral pain meds and she was tolerating a regular diet. Physical Exam on d/c: Temp: [36 ??C (96.8 ??F)-36.8 ??C (98.2 ??F)] Heart Rate: [65-88] Resp: [8-20] BP: (103-140)/(53-86) SpO2: [97 %-100 %] Intake/Output Summary (Last 24 hours) at 04/09/16 0924 Last data filed at 04/09/16 0527 Gross per 24 hour Intake 3072 ml Output 2233 ml Net 839 ml General: NAD, AOx3, resting comfortably in bed Resp: Good respiratory effort LUE: Splint c/d/i. Taken PERRY off, added padding, re-wrapped. Dopplerable signals in 3/4th web space. Sensation and motor intact Cap refill 2-3 sec equivalent to contralateral side. Lab data: No results found for this or any previous visit (from the past 72 hour(s)). Pending lab data: none Medications: Your Medications New Medications Dose Details aspirin 81 mg Chew Take 81 mg by mouth daily. 81 mg Quantity: 30 tablet Refills: 3 docusate sodium 100 mg Cap Commonly known as: COLACE Take 1 capsule by mouth 2 times daily for 10 days. 100 mg Quantity: 10 capsule Refills: 0 HYDROmorphone 2 mg Tab Commonly known as: DILAUDID Take 1-2 tablets by mouth every 4 hours as needed for Pain. 2-4 mg Quantity: 20 tablet Refills: 0 oxyCODONE 5 mg Tab Commonly known as: ROXICODONE Take 1 tablet by mouth every 4 hours as needed for Pain. 5 mg Quantity: 20 tablet Refills: 0 Continued medications with new dosing Dose Details * Acetaminophen 650 mg Tab Take 650 mg by mouth daily as needed. What changed: Another medication with the same name was added. Make sure you understand how and when to take each. 650 mg Refills: 0 * acetaminophen 500 mg Tab Commonly known as: TYLENOL Take 2 tablets by mouth every 8 hours as needed for Pain. What changed: You were already taking a medication with the same name, and this prescription was added. Make sure you understand how and when to take each. 1000 mg Quantity: 30 tablet Refills: 1 * Notice: This list has 2 medication(s) that are the same as other medications prescribed for you. Read the directions carefully, and ask your doctor or other care provider to review them with you. Continued medications, unchanged Dose Details amLODIPine 10 mg Tab Commonly known as: NORVASC Take 1 tablet by mouth daily. 10 mg Quantity: 90 tablet Refills: 3 esomeprazole 40 mg Cpdr Commonly known as: NexIUM Take 1 capsule by mouth daily. 40 mg Quantity: 90 capsule Refills: 3 fosinopril 40 mg Tab Commonly known as: MONOPRIL Take 1 tablet by mouth daily. 40 mg Quantity: 90 tablet Refills: 3 lidocaine-prilocaine Crea Commonly known as: EMLA Apply topically as needed. Quantity: 30 g Refills: 2 loperamide 2 mg Cap Commonly known as: IMMODIUM Take 2 mg by mouth 4 times daily as needed for Diarrhea. 2 mg Refills: 0 nitroGLYcerin 2 % Oint Commonly known as: NITROGLYN Place 0.5 inches onto the skin every 6 hours. 0.5 inch Refills: 0 Vitamin D 1,000 unit Cap Take 1 tablet by mouth daily. Generic drug: cholecalciferol (Vitamin D3) 1 tablet Refills: 0 vitamin E 400 unit Cap Take 400 Units by mouth daily. 400 Units Refills: 0 Allergies: No Known Allergies Discharge Instructions: Patient Instructions PLASTIC SURGERY DISCHARGE INSTRUCTIONS WOUND CARE: OK to shower in 2 days but keep left hand dressing dry Do not submerge in water until cleared by MD. Keep dressing clean dry and intact. You must avoid sunlight exposure to your incision(s). Do not use ointments on the incisions postoperatively unless instructed by MD. ACTIVITIES: Minimize contact to left hand. No heavy lifting until seen by MD. No driving or operating heavy machinery when on narcotics. DIET: Slowly advance diet as tolerated to a regular healthy diet. CALL MD IF: Increased pain, numbness, tingling, weakness, swelling, bruising, bleeding, or any other concerningsigns/symptoms NARCOTICS: You may be given a prescription [...] called in to our prescription line at [phone]. Narcotic renewals may be requested from 8am-4pm [...] Monday 8 am to 5 pm Call [phone] On weekends or after hours: Call [phone] and ask the cager operator to page the Plastic Surgery Resident adoption manager. Follow-up plan: Future Appointments and Orders Future Appointments Provider Department Dept Phone 04/20/2016 7:15 AM Andre Marroquin MD Plastic Surgery at [facility] [phone] 04/20/2016 8:30 AM Jo Ordaz MD Dermatology at [facility] [phone] 06/28/2016 9:30 AM Sumit Lucas MD Gastroenterology [phone] VNA: No discharge procedures on file. General Instructions None documented in this encounter Discharge Instructions * Patient Instructions* Sumit Ziegler MD - 04/08/2016 11:04 AM EDT PLASTIC SURGERY DISCHARGE INSTRUCTIONS WOUND CARE: OK to shower in 2 days but keep left hand dressing dry Do not submerge in water until cleared by MD. Keep dressing clean dry and intact. You must avoid sunlight exposure to your incision(s). Do not use ointments on the incisions postoperatively unless instructed by MD. ACTIVITIES: Minimize contact to left hand. No heavy lifting until seen by MD. No driving or operating heavy machinery when on narcotics. DIET: Slowly advance diet as tolerated to a regular healthy diet. CALL MD IF: Increased pain, numbness, tingling, weakness, swelling, bruising, bleeding, or any other concerningsigns/symptoms NARCOTICS: You may be given a prescription [...] called in to our prescription line at [phone]. Narcotic renewals may be requested from 8am-4pm [...] Monday 8 am to 5 pm Call [phone] On weekends or after hours: Call [phone] and ask the cager operator to page the Plastic Surgery Resident adoption manager. documented in this encounter Medications at Time [...] 3 03/22/2016 04/28/2017 fosinopril (MONOPRIL) 40 mg TabletIndications:Scle rodkaciea,CKD (chronic kidney disease) stage 3, GFR 30-59 ml/min Take 1 tablet by mouth daily. 90 tablet 3 03/22/2016 09/16/2016 lidocaine-prilocaine (EMLA) cream Apply topically as needed. 30 g 2 05/21/2013 01/09/2020 Acetaminophen 650 mg Tab Take 650 mg by mouth daily as needed. 05/18/2011 09/23/2016 documented as of this encounter Progress Notes * Corinna Davidson RN - 04/09/2016 2:28 PM EDT The patient has met discharge criteria per policy. Discharge instruction reviewed and patient discharged to responsible adult. The After Visit Summary (AVS), and accompanying hand-outs have been reviewed with the patient; the patient /family verbalizes understanding at this time. Opportunity for clarification provided. Reportable sign and symptoms have been reviewed with patient. Patient???s pain level has been assessed and patient states that his/her level is tolerable at this time. PRN medication given prior to leaving. Teaching done, patient verbalizes understanding back to RN All new medications have been reviewed with the patient. Prescriptions given to patient. Patient D/C to home with boyfriend. At time of discharge: A & O x 4, PERRL, vss, incision(s) well approximated/drsgs C/D/I, skin C/D/I, No sign of PU or breakdown. IV removed no s/s of infection, inflammation, infiltration. Patient voiding, PVR WNL, ambulating independently, eating and drinking without issues at time of D/C Prior to D/C room searched and patient discharged with all belongs. Patient ambulated with boyfriend to entrance * Sumit Ziegler MD - 04/08/2016 6:28 PM EDT Plastic Surgery Post-Operative Progress Note Surgery: Ulnar artery resection, vein graft Patient Active Problem List Diagnosis Code ??? [...] Fecal incontinence R15.9 ??? Raynaud phenomenon I73.00 Subjective/Events: Doing well post-op. Pain well controlled. Received block pre-op. Denies CP/SOB/N/V. Objective: Vitals: Temp: [36 ??C (96.8 ??F)-36.8 ??C (98.2 ??F)] Heart Rate: [67-88] Resp: [8-20] BP: (126-140)/(76-86) SpO2: [97 %-100 %] I/O this shift: In: 1358 [I.V.:1358] Out: 983 [Urine:983] Exam: General: NAD, awake/alert, responds to questions Resp: Breathing comfortably Abd: Soft, nontender, nondistended. LUE: Dressing c/d/i Sensation and motor diminished due to block Brisk capillary refill distally, fingers warm/well-perfused. A/P: 55 y.o. year old female POD#0 s/p Ulnar artery resection, vein graft. -Vitals stable, uop adequate. D/c russell. -Pain well controlled -continue all post-operative care * Teresita Kang RN - 04/08/2016 5:47 PM EDT Pt met phase 1 recovery without complications. Handoff report given to HOUSTON Mullen in [facility] and pt brought to unit by PACU staff. documented in this encounter H&P Notes * Marty Roa MD - 04/08/2016 11:02 AM EDT 24 HOUR INTERVAL H&P S: Amber Wells's condition unchanged since H&P originally performed Denies any new ED visits, hospitalizations, trauma, or new events. Has been overall doing well. O: Patient Vitals for the past 24 hrs: BP Temp Temp src Pulse Resp SpO2 Height Weight 04/08/16 1004 112/78 36.8 ??C (98.2 ??F) Temporal 65 14 100 % 170.2 cm (5' 7) 63 kg (139 lb) NAD Non-labored Reg rate Site marked AP: 55 y.o. female with scleroderma and bilateral hand Raynauds. - After extensive discussion of the risks, benefits, and alteratives of surgical intervention, the patient consented to proceed with surgery. - IV antibiotics ordered - Proceed to OR for: left ulnar artery reconstruction with vein graft Marty Roa MD Plastic Surgery Resident, PGY-6 documented in this encounter Miscellaneous Notes * Plan of Care - Mary Alvarez RN - 04/09/2016 2:55 AM EDT Problem: General Plan of Care Goal: Plan of Care Review Outcome: Ongoing (Interventions Implemented as Appropriate) 04/09/16 0238 Plan of Care Review Plan of Care Outcome Status ongoing (interventions implemented as appropriate) Progress progress toward functional goals as expected Coping/Psychosocial Response Interventions Plan of Care Reviewed with patient UPDATE: 0530 - Left hand now cooler to touch from prior assessments. Cap refill > 3 seconds. Doppler 1+ on palmar surface where marking-identifier is placed has become less audible. LUE splint andACE wrap in place and intact. Pt states splint causes pain. VSS. Pain treated with 0.2mg IV Dilaudid. OOB to commode. Transient, brief, dizziness when OOB, per patient. S/P: Left ulnar artery repair with veinous graft Hx scleroderma and Raynaud's Outcome Summary: VS stable with intermittent elevated heart rate. Heart sounds regular to auscultation. SBP/DBP WNL. SPO2 WNL on RA. Afebrile. Left splint in place. LUE elevated on pillows. Freq doppler checks L hand palmar surface with 2+ doppler. Pt rec'd nerve block and its effect is receding with consequent pain; LUE Sensation not yet fully intact. Pain treated with tylenol, oxycodone, and IV dilaudid. Pt states she is anxious - asked about ativan - then stated no I don't want you to call doctor forativan. General neurovascular: Both hands/both feet warm to cool to touch. Tips of fingers and toes pale r/t Raynaud's disease. RUE and BLE pulses 1+ to palpation. Ambulating minimally due to nausea. Commode in room. Voiding quantity sufficient, clear yellow urine. Lynda PO foods and fluids in spite of c/o nausea. Plan: ongoing monitoring and assessments. Neurovasc/doppler checks. I/O. Increase ambulation. Pain tx. D/C home if able. INDIVIDUALIZED FALL PREVENTION: Assistance: Assisted with bed mobility to find comfortable position, will assist when OOB as needed. Supervision: Stand-by assist with initial ambulation and supervised activity as needed. Surveillance: Continuous pulse ox, call hadley within reach, purposeful rounding Goal: Individualization and Mutuality Outcome: Ongoing (Interventions Implemented as Appropriate) 04/08/16219904/09/16 0238 Individualization Individualize the Plan of Care: -- s/p L Ulnar artery graft Patient Specific Preferences -- pain treatment Mutuality/Individual Preferences What anxieties, fears or concerns do you have about your health or care? when will the block wearoff? -- What questions do you have about your health or care? -- I don't know if I can take care of myself at home. What information would help us give you more personalized care? none -- Goal: Fall Prevention-Safe Patient Handling Outcome: Ongoing (Interventions Implemented as Appropriate) 04/08/16 1943 04/08/16 2100 04/08/162199 Musculoskeletal Interventions Activity/Level of Assistance -- -- -- Positioning -- -- -- Muscle Strengthening -- -- -- Self-Care Promotion -- -- independence encouraged while providing assistance;personal routines for BADL/IADL promoted;personal/BADL objects within reach Frazier Fall Risk History of Falling -- 0 -- Secondary Diagnosis -- 15 -- Ambulatory Aids -- 0 -- Intravenous Therapy/Heparin/Saline Lock -- 20 -- Gait/Transferring -- 0 -- Mental Status -- 0 -- Score -- 35 -- Activity and Safety Assistive Device None -- -- OTHER Frazier Fall Risk -- Med -- Safety Interventions Safety Precautions/Fall Reduction -- -- -- 04/08/165 04/09/16 0200 04/09/16 0238 Musculoskeletal Interventions Activity/Level of Assistance up in room;with 1-person assist -- -- Positioning -- HOB up 30-45 degrees -- Muscle Strengthening -- -- mobility in bed promoted;activity/mobility promoted Self-Care Promotion -- -- -- Frazier Fall Risk History of Falling -- -- -- Secondary Diagnosis -- -- -- Ambulatory Aids -- -- -- Intravenous Therapy/Heparin/Saline Lock -- -- -- Gait/Transferring -- -- -- Mental Status -- -- -- Score -- -- -- Activity and Safety Assistive Device -- -- -- OTHER Frazier Fall Risk -- -- -- Safety Interventions Safety Precautions/Fall Reduction -- fall reduction program maintained;commode/urinal/bedpan at bedside;lighting adjusted for task/safety;nonskid shoes/slippers when out of bed -- Goal: Infection Control Outcome: Ongoing (Interventions Implemented as Appropriate) 04/08/16175604/08/16 22004/09/16 0200 Coping/Psychosocial Response Interventions Counseling -- emotional support provided;goal setting facilitated;personal strengths integrated;reassurance provided -- Safety Interventions Isolation Precautions -- -- standard precautions maintained Infection Prevention bronchial hygiene promoted;environmental surveillance;hydration promoted;nutrition promoted;promote handwashing;rest/sleep promoted -- -- Goal: Discharge Needs Assessment Outcome: Ongoing (Interventions Implemented as Appropriate) 04/09/16 0238 Discharge Needs Assessment Concerns to be Addressed no discharge needs identified Readmission Within the Last 30 Days no previous admission in last 30 days Equipment Needed After Discharge none Current Health Anticipated Changes Related to Illness inability to care for self Self-Care Equipment Currently Used at Home none Living Environment Transportation Available family or friend will provide * Plan of Care - Paz Coronado RN - 04/08/2016 6:30 PM EDT Problem: General Plan of Care Goal: Plan of Care Review Outcome: Ongoing (Interventions Implemented as Appropriate) 04/08/161825 Plan of Care Review Plan of Care Outcome Status ongoing (interventions implemented as appropriate) Progress improving Coping/Psychosocial Response Interventions Plan of Care Reviewed with patient OUTCOME EVALUATION NOTE: OUTCOME SUMMARY: Pt arrived from PACU around 1800. A/Ox4. Vitals stable. No complaints of pain. LUE cast c/d/i, elevated. Neurovascular checks unchanged from report. Tolerating PO intake. Complaints is of russell catheter, team aware. Will continue to monitor. PLAN MOVING FORWARD: Ambulate when able. Pain control. INDIVIDUALIZED FALL PREVENTION INTERVENTIONS: Patient-specific fall risk factors per assessment: [current deficits]: LUE in cast. IV pole Assistance [level of assistance required for transfers and ambulation]: Standby assist. Supervision [direct monitoring required during toileting and ADLs]: Call hadley within reach. Needs addressed. Visual checks made. Surveillance [continuous indirect monitoring]: Bed and monitor alarms on and audible. Patient-specific fall prevention interventions for sensory deficits provided, if applicable: Yes CPG GOAL OUTCOME EVALUATION: Goal: Fall Prevention-Safe Patient Handling Outcome: Ongoing (Interventions Implemented as Appropriate) 04/08/16175604/08/161825 Musculoskeletal Interventions Positioning HOB up 30 degrees -- Self-Care Promotion -- toileting offered Frazier Fall Risk History of Falling 0 -- Secondary Diagnosis 15 -- Ambulatory Aids 0 -- Intravenous Therapy/Heparin/Saline Lock 20 -- Gait/Transferring 0 -- Mental Status 0 -- Score 35 -- Activity and Safety Assistive Device None -- OTHER Frazier Fall Risk Med -- Safety Interventions Safety Precautions/Fall Reduction environmental modification;fall reduction program maintained -- Goal: Infection Control Outcome: Ongoing (Interventions Implemented as Appropriate) 04/08/161756 Coping/Psychosocial Response Interventions Counseling calming techniques promoted;emotional support provided;journaling promoted;personal strengths integrated;problem solving facilitated;reassurance provided;relaxation techniques promoted;understanding of situation facilitated;verbalization of feelings encouraged Safety Interventions Isolation Precautions standard precautions maintained Infection Prevention bronchial hygiene promoted;environmental surveillance;hydration promoted;nutrition promoted;promote handwashing;rest/sleep promoted * Op Note - Andre Marroquin MD - 04/08/2016 4:17 PM EDT Operative Note Patient Name: Amber Wells : [id number] MR#: [id number] Case Date: 04/08/2016 Surgeon: Surgeon(s) and Role: * Andre Marroquin MD - Primary * Marty Roa MD Preoperative diagnosis: Left ulnar artery disease Postoperative diagnosis: Left ulnar artery disease Procedure(s): SPLINT APPLICATION, SHORT ARM REPAIR BLOOD VESSEL WITH VEIN GRAFT, UPPER EXTREMITY Anesthesia: General Findings: Left ulnar artery occluded. 15 cm of left ulnar artery resected from superficial palmar arch just proximal to the takeoff of the 4th common digital artery then to distal third of forearm. Reconstruction with left cephalic vein. Dopplerable left third and fourth common digital arteries at end of case. Volar splint applied. First tourniquet time 24 minutes. Second tourniquet time 103 minutes. Complications: None Fluids: 1.3L Estimated Blood Loss: 10 ml Drains: None Disposition: awakened from anesthesia, extubated and taken to the recovery room in a stable condition, having suffered no apparent untoward event. Condition: doing well without problems (Please see the Surgical Encounter Summary for any Implant and Specimen details pertinent to this patient.) Infection Bundle used? N/A Indications for Procedure: Ms. Wells is a 55-year-old female with history of scleroderma as well as Raynaud's disease in both hands. The patient has pain and discomfort in her hand and an MRI showed occlusion of her left ulnar artery near the wrist and to the arch. Patient now requires excision of the ulnar artery and reconstruction with vein graft. Description of Procedure: Risks, benefits and alternatives were discussed with the patient prior to the procedure. She was brought to the operating room and placed in the supine position with her left arm out. She was identified when she entered the room. The patient did not receive antibiotics prior to the procedure. SCDs were on and functioning prior to intubation. She was prepped and draped in the usual sterile fashion after undergoing general anesthesia. The patient did receive a block by the anesthesia team prior to entering the operating room. A time-out was performed. We then used an Esmarch to exsanguinate the arm and then turned on the tourniquet for the left arm to 250 mmHg. Marking pen was then use to angelo out the cephalic vein on the left arm as well as along the ulnar artery, which extended into the palm along the hypothenar eminence. Scalpel was then used to make an incision along the ulnar artery from the distal third of the forearm and extended across the wrist crease and then over the hypothenar eminence. Scissors were used to dissect down through subcutaneous tissue to expose the ulnar artery in the forearm. The ulnar artery was followed distally into Guyon's canal, which was opened using scissors. The ulnar artery was further followed into the superficial palmar arch and we were able to identify the fourth and third common digital nerves. We also took care to not damage the adjacent ulnar nerve, which was lateral to the artery and venae comitantes. The ulnar artery and venae comitantes was mobilized from the distal third of the forearm into the arch. We did have to transect the artery going to the ulnar aspect of the small finger to help with mobilization. Once the ulnar artery was freed, the ulnar artery was transected proximally in the distal third of the forearm in an area that looked healthy, and then the ulnar artery was transected just proximal to the takeoff of the fourth common digital artery. The tourniquet was turned down and there was good blood flow from the ulnar artery in the forearm. A vascular clamp was placed here. There was very minimal flow in the palmar arch on the ulnar side. Heparinized saline was used to clean the lumens of the proximal and distal ends of the transected palmar artery. The tourniquet was then turned back on. The first tourniquet time was 24 minutes. After the tourniquet was turned back to 250 mmHg after exsanguinated the arm with an Esmarch, we made our incision over the left cephalic vein along the forearm and extended this to the wrist. The defect in the ulnar artery was 15 cm, so we exposed 15 cm of the cephalic vein using the scissors. The cephalic vein was circumferentially dissected and any branches controlled with bipolar or vascular clips. The cephalic vein was then trimmed proximally in the forearm and then distally near the wrist. A angelo was placed on the proximal aspect of the cephalic vein. The wound was irrigated. Hemostasis was obtained. The wound was closed with interrupted 4-0 Vicryl for the dermis, followed by 5-0 Monocryl in a running fashion for the skin. The vein graft was then placed on the back table on a moistened gauze. The microscope was brought into the field and we then cleared the proximal and distal ends of the ulnar artery clear of adventitia and surrounding fat. The same was done for the ends of the cephalic vein. The cephalic vein was then reversed and the distal anastomosis was first performed using interrupted 9-0 nylon sutures. The proximal anastomosis was also performed using interrupted 9-0 nylon sutures. The tourniquet was turned down. Tourniquet time was 103 minutes for this portion. Further 9-0 nylon suture was placed in the proximal anastomosis to help with hemostasis. There was good blood flow through the vein graft. Doppler was then used to Doppler out the third and fourth common digital arteries, which was good. Irrigation was performed, followed by hemostasis. Dermis was then closed with interrupted 4-0 Vicryl sutures, skin closed with interrupted and continuous 4-0 and 5-0 chromic sutures. Bacitracin was applied, followed by a volar splint. Patient had dopplerable signals at the end of the case. Hand was well perfused. All needle, lap and instrument counts were correct at the end of the case. Attestation: Case Date: 04/08/2016 I was present and I participated during the entire procedure (does not need to include opening and closing). Andre Marroquin MD 04/12/2016 * Brief Op Note - Marty Roa MD - 04/08/2016 4:13 PM EDT Brief Operative Note Patient Name: Amber Wells : [id number] MR#: [id number] Case Date: 04/08/2016 Surgeon: Surgeon(s) and Role: * Andre Marroquin MD - Primary * Marty Roa MD Preoperative diagnosis: Left ulnar artery disease Postoperative diagnosis: Left ulnar artery disease Procedure(s): SPLINT APPLICATION, SHORT ARM REPAIR BLOOD VESSEL WITH VEIN GRAFT, UPPER EXTREMITY Anesthesia: General Findings: Left ulnar artery occluded. 15 cm of left ulnar artery resected from superficial palmar arch just proximal to the takeoff of the 4th common digital artery then to distal third of forearm. Reconstruction with left cephalic vein. Dopplerable left third and fourth common digital arteries at end of case. Volar splint applied. Complications: None Fluids: 1.3L Estimated Blood Loss: 10 ml Drains: None Disposition: awakened from anesthesia, [...] 11:30 AM EST Office Visit Dermatology at [place] [address] [place] [address] Jo Ordaz MD [facility] [place] [address] 12/13/2024 11:30 AM EST Appointment [place] [address] 12/13/2024 1:00 PM EST Office Visit [place] [address] Kiet Pardo MD [facility] [place] [address] documented as of this encounter Procedures Procedure Name Priority Date/Time Associated Diagnosis Comments TARE MAN SCAN 04/11/2016 12:00 AM EDT SURGICAL PATHOLOGY REPORT Routine 04/08/2016 1:00 PM EDT SPECIMEN TO PATHOLOGY Routine 04/08/2016 1:00 PM EDT REPAIR BLOOD VESSEL WITH VEIN GRAFT, UPPER EXTREMITY (WRVU 18.02) 04/08/2016 11:48 AM EDT Left ulnar artery recon SPLINT APPLICATION, SHORT ARM (WRVU 0.5) 04/08/2016 11:48 AM EDT Left ulnar artery recon documented in this encounter Results * SCAN DOC: TARE MAN (04/11/2016 12:00 AM EDT) Anatomical Region Laterality Modality Other Scanning Provider MEDIA MGR SCAN EXT O RDR/RSLT * Surgical Pathology Report (04/08/2016 1:00 PM EDT) Final Diagnosis [id number] ? Location: [facility]; [facility]; The signing pathologist has (i) examined the relevant preparation(s) for the specimen(s) and (ii) rendered or confirmed the diagnosis(es). . ?Surgical Pathology DIAGNOSIS Left ulnar artery, resection: Muscular artery with intimal thickening, focal foamy histiocytes and luminal narrowing. CR-0 04/13/16 LJT 04/15/16 Verified by: ? Adwoa HEARD, Lexie Farias ?Pathologist ?(Electronic Signature) The attending pathologist whose signature appears on this report has reviewed all diagnostic slides and has edited the gross and/or microscopic portion of the report in rendering the final pathologic diagnosis. DISCUSSION The findings are consistent with the patient ?? 's clinical history of scleroderma. ??The [place] red stain is negative. ADDITIONAL STUDIES Special stains are performed. ?? Block ? Stain ?Result ( Positive / Negative ) ??A1 ?congo red/amyloid ?Negative CLINICAL INFORMATION Specimen Submitted: A - Left ulnar artery Clinical History: Left ulnar artery recon Clinical Diagnosis: Same SPECIMEN PROCESSING A - Labeled/Fixative: Left ulnar artery, formalin. Quantity/Size: Single, 8.4 x 0.3 x 0.3 cm. Tissue Description: Tubular segment of blood vessel. Sections/Processi ng: Multiple medical office representative cross-sections are submitted. (R1) ??pps 04/15/2016 9:30 AM EDT [facility] BIOPSY SPECIMEN / Unknown 04/08/2016 1:00 PM EDT 04/08/2016 1:00 PM EDT Andre Marroquin MD PATHOLOGY/CYTOLOGY ORDERABLES Performing Organization Address City/[facility]/[place] [address] * Specimen to Pathology (surgical or derm) (04/08/2016 1:00 PM EDT) AP Specimen 04/08/2016 1:00 PM EDT 04/08/2016 1:00 PM EDT Narrative [facility] - 04/08/2016 1:00 PM EDT Specimen requisition ordered. ??Separate Pathology report to follow Andre Marroquin MD PATHOLOGY/[place] [address] documented in this encounter Visit Diagnoses Diagnosis Raynaud phenomenon Raynaud's syndrome documented in this encounter Admitting Diagnoses Diagnosis Raynaud phenomenon Raynaud's syndrome documented in this encounter Administered Medications Inactive Administered Medications - up to 3 most recent administrations Medication Order MAR Action Action Date Dose Rate Site acetaminophen (TYLENOL) tablet 1,000 mg 1,000 mg, Oral, EVERY 8 HOURS PRN, Starting on Mon04/08/16 at 1858, Until 04/09/16 at 1924, Pain, Maximum dose of acetaminophen is 4000 mg from all sources in 24 hours., Routine Given 04/09/2016 9:03 AM EDT 1,000 mg Given 04/09/2016 12:43 AM EDT 1,000 mg amLODIPine (NORVASC) tablet 10 mg 10 mg, Oral, DAILY, First dose on Mon04/08/16 at 1900, Until Discontinued, Routine Given 04/08/2016 6:39 PM EDT 10 mg aspirin chewable tablet 81 mg 81 mg, Oral, DAILY, First dose on Mon04/09/16 at 0900, Until Discontinued, Routine Given 04/09/2016 8:55 AM EDT 81 mg docusate sodium (COLACE) capsule 100 mg 100 mg, Oral, 2 TIMES DAILY, First dose on Mon04/08/16 at 2145, Until Discontinued, Routine Given 04/09/2016 8:55 AM EDT 100 mg Given 04/08/2016 9:24 PM EDT 100 mg fentaNYL (PF) 50 mcg/mL 2mL syringe 50 mcg, Intravenous, EVERY 5 MIN PRN, Pain, or prior to injection of local anesthetic., Starting on Mon04/08/16 at 1000, Until Mon04/08/16 at 1122, Hold for respiratory rate less than 8 breaths per minute. (maximum dose 200 mcg), Day of Surgery (Day of Procedure) Given 04/08/2016 11:06 AM EDT 25 mcg HYDROmorphone (DILAUDID) injection 0.2 mg 0.2 mg, Intravenous, EVERY 2 HOURS PRN, Starting on Mon04/08/16 at 1756, Until Mon04/09/16 at 0921, Pain, Routine Given 04/09/2016 5:37 AM EDT 0.2 mg Given 04/09/2016 2:12 AM EDT 0.2 mg HYDROmorphone (DILAUDID) syringe 0.2-0.4 mg 0.2-0.4 mg, Intravenous, EVERY 5 MIN PRN, Pain, Starting on Mon04/08/16 at 1531, Until Mon04/08/16 at 1750, For moderate pain (4-6) give: 0.2 mg every 5 minute prn For severe pain (7-10) give: 0.4 mg every 5 minutes prn Maximum dose: 4 mg per hour Hold for respiratory rate less than 10 per minute., PACU Recovery Given 04/08/2016 4:46 PM EDT 0.4 mg Given 04/08/2016 4:30 PM EDT 0.2 mg HYDROmorphone (DILAUDID) tablet 2-4 mg 2-4 mg, Oral, EVERY 4 HOURS PRN, Starting on Mon04/09/16 at 0920, Until 04/09/16 at 1924, Pain, 2mg for pain 4-7 4mg for pain 8-10, Routine Given 04/09/2016 2:19 PM EDT 2 mg Given 04/09/2016 10:11 AM EDT 4 mg lactated ringers infusion 1,000 mL 1,000 mL, at 100 mL/hr, Intravenous, CONTINUOUS, Starting on Mon04/08/16 at 1030, Until Mon04/08/16 at 1616, Day of Surgery (Day of Procedure) New Bag 04/08/2016 11:52 AM EDT New Bag 04/08/2016 10:30 AM EDT 1,000 mLs 100 mL/hr lactobacillus (BACID) tablet 1 tablet 1 tablet, Oral, DAILY, First dose on Mon04/08/16 at 1900, Until Discontinued, Routine Given 04/09/2016 9:00 AM EDT 1 tablet Given 04/08/2016 6:39 PM EDT 1 tablet lisinopril (PRINIVIL;ZESTRIL) tablet 40 mg 40 mg, Oral, DAILY, First dose on Mon04/08/16 at 1900, Until Discontinued, Therapeutically interchanged for patient's home fosinopril while admitted., Routine Given 04/08/2016 6:39 PM EDT 40 mg midazolam (PF) (VERSED) 1 mg/mL injection 1 mg 1 mg, Intravenous, EVERY 5 MIN PRN, Starting on Mon04/08/16 at 1000, Until Mon04/08/16 at 1122, Sleep, or prior to injection of local anesthetic, Hold for delirium/agitation. (Maximum dose 5 mg)., Day of Surgery (Day of Procedure), Routine Given 04/08/2016 11:06 AM EDT 1 mg ondansetron (ZOFRAN) injection 4 mg 4 mg, Intravenous, EVERY 8 HOURS PRN, Starting on Mon04/08/16 at 1756, Until 04/09/16 at 1924, Nausea, May repeat times one in 30 minutes if ineffective. If multiple antiemetics are ordered, use ondanstron first, Recovery (Recovery-Hospital Unit) Given 04/09/2016 11:10 AM EDT 4 mg Given 04/08/2016 7:50 PM EDT 4 mg ondansetron (ZOFRAN) tablet 4 mg 4 mg, Oral, EVERY 8 HOURS PRN, Starting on Mon04/08/16 at 1756, Until 04/09/16 at 1924, Nausea, Vomiting, If multiple antiemetics are ordered, use ondansetron first. PO Preferred. If patient unable to take PO, may give IV if ordered. May repeat times one in 45 minutes if ineffective., Recovery (Recovery-Hospital Unit), Routine oxyCODONE (ROXICODONE) immediate release tablet 10 mg 10 mg, Oral, EVERY 4 HOURS PRN, Starting on Mon04/08/16 at 1616, Until 04/09/16 at 0921, Pain, severe pain 7-10, Routine Given 04/09/2016 12:43 AM EDT 10 mg pantoprazole (PROTONIX) tablet 40 mg 40 mg, Oral, DAILY, First dose on Mon04/08/16 at 1830, Until Discontinued, DO NOT CRUSH OR OPEN Therapeutically interchanged for patient's home esomeprazole while admitted. Given 04/09/2016 8:55 AM EDT 40 mg Given 04/08/2016 6:39 PM EDT 40 mg sodium chloride 0.9 % flush 5 mL 5 mL, Intravenous, 2 TIMES DAILY, First dose on Mon04/08/16 at 2100, Until Discontinued, Recovery (Recovery-Hospital Unit), Routine Given 04/09/2016 9:02 AM EDT 5 mLs Given 04/08/2016 9:15 PM EDT 5 mLs sodium chloride 0.9% infusion 100 mL/hr, Intravenous, CONTINUOUS, Starting on Mon04/08/16 at 1645, Until 04/09/16 at 0444, Recovery (Recovery-Hospital Unit) New Bag 04/09/2016 1:24 AM EDT 100 mL/hr 100 mL /hr New Bag 04/08/2016 4:29 PM EDT 100 mL/hr 100 mL/hr documented in this encounter Active and Recently Administered Medications Times are shown in EDT. Scheduled Medication Order 04/07/2016 04/08/2016 04/09/2016 amLODIPine (NORVASC) tablet 10 mg 10 mg, Oral, DAILY, First dose on Mon04/08/16 at 1900, Until Discontinued, Routine 1839 (Given - Provider: Paz Coronado RN) 0856 (Not Given - Provider: Corinna Davidson RN - Reason: Patient/family refused) aspirin chewable tablet 81 mg 81 mg, Oral, DAILY, First dose on Mon04/09/16 at 0900, Until Discontinued, Routine 0855 (Given - Provid er: Corinna Davidson RN) ceFAZolin (ANCEF) 2g in dextrose 5% 50 mL 2 g, Intravenous, ONCE, 1 dose, On Mon04/08/16 at 1130, Administer over 30 Minutes, HOLD FOR OR, Indication for (Active or Suspected): Prophylaxis 1157 (Canceled Entry - Provider: Guillermina Elder MD)1206 (Given - Provider: Guillermina Elder MD) docusate sodium (COLACE) capsule 100 mg 100 mg, Oral, 2 TIMES DAILY, First dose on Mon04/08/16 at 2145, Until Discontinued, Routine 2123 (Given - Provider: Mary Alvarez RN) 0855 (Given - Provider: Corinna Davidson RN) lactobacillus (BACID) tablet 1 tablet 1 tablet, Oral, DAILY, First dose on Mon04/08/16 at 1900, Until Discontinued, Routine 1838 (Given - Provider: Paz Coronado RN) 0900 (Given - Provider: Corinna Davidson RN) lisinopril (PRINIVIL;ZESTRIL) tablet 40 mg 40 mg, Oral, DAILY, First dose on Mon04/08/16 at 1900, Until Discontinued, Therapeutically interchanged for patient's home fosinopril while admitted., Routine 1838 (Given - Provider: Paz Coronado RN) 0859 (Not Given - Provider: Corinna Davidson RN - Reason: Patient/family refused) pantoprazole (PROTONIX) tablet 40 mg 40 mg, Oral, DAILY, First dose on Mon04/08/16 at 1830, Until Discontinued, DO NOT CRUSH OR OPEN Therapeutically interchanged for patient's home esomeprazole while admitted. 183 (Given - Provider: Paz Coronado RN) 0855 (Given - Provider: Corinna Davidson RN) sodium chloride 0.9 % flush 5 mL 5 mL, Intravenous, 2 TIMES DAILY, First dose on Mon04/08/16 at 2100, Until Discontinued, Recovery (Recovery-Hospital Unit), Routine 2115 (Given - Provider: Mary Alvarez RN) 0902 (Given - Provider: Corinna Davidson, [place]) Continuous Medication Order 04/07/2016 04/08/2016 04/09/2016 lactated ringers infusion 1,000 mL 1,000 mL, at 100 mL/hr, Intravenous, CONTINUOUS, Starting on Mon04/08/16 at 1030, Until Mon04/08/16 at 1616, Day of Surgery (Day of Procedure) 1030 (New Bag - Provider: Treva Pedroza RN)1152 (New Bag - Provider: Guillermina Elder MD)1240 (Anesthesia Volume Adjustment - Provider: Guillermina Elder MD)1339 (Anesthesia Volume Adjustment - Provider: Guillermina Elder MD)1352 (Anesthesia Volume Adjustment - Provider: Guillermina Elder MD)1538 (Anesthesia Volume Adjustment - Provider: Guillermina Elder MD) sodium chloride 0.9% infusion 100 mL/hr, Intravenous, CONTINUOUS, Starting on Mon04/08/16 at 1645, Until 04/09/16 at 0444, Recovery (Recovery-Hospital Unit) 1629 (New Bag - Provider: Teresita Kang RN) 0124 (New Bag - Provider: Mary Alvarez RN)0500 (Stopped - Provider: Mary Alvarez RN) PRN Medication Order 04/07/2016 04/08/2016 04/09/2016 acetaminophen (TYLENOL) tablet 1,000 mg 1,000 mg, Oral, EVERY 8 HOURS PRN, Starting on Mon04/08/16 at 1858, Until 04/09/16 at 1924, Pain, Maximum dose of acetaminophen is 4000 mg from all sources in 24 hours., Routine 0043 (Given - Provid er: Mary Alvarez RN)0903 (Given - Provider: Corinna Davidson, [place]) aspirin suppository (CANCELED) ONCE PRN, Starting on Mon04/08/16 at 1545, Until 04/09/16 at 1924, Intra-Operative (Intra-Procedure), Routine 1545 (Given - Provider: Andre Marroquin MD) fentaNYL (PF) 50 mcg/mL 2mL syringe 50 mcg, Intravenous, EVERY 5 MIN PRN, Pain, or prior to injection of local anesthetic., Starting on Mon04/08/16 at 1000, Until Mon04/08/16 at 1122, Hold for respiratory rate less than 8 breaths per minute. (maximum dose 200 mcg), Day of Surgery (Day of Procedure) 1106 (Given - Provider: Treva Pedroza RN) HYDROmorphone (DILAUDID) injection 0.2 mg (CANCELED) 0.2 mg, Intravenous, EVERY 2 HOURS PRN, Starting on Mon04/08/16 at 1756, Until 04/09/16 at 0921, Pain, Routine 0212 (Given - Provid er: Mary Alvarez RN)0537 (Given - Provider: Mary Alvarez RN) HYDROmorphone (DILAUDID) syringe 0.2-0.4 mg (CANCELED) 0.2-0.4 mg, Intravenous, EVERY 5 MIN PRN, Pain, Starting on Mon04/08/16 at 1531, Until Mon04/08/16 at 1750, For moderate pain (4-6) give: 0.2 mg every 5 minute prn For severe pain (7-10) give: 0.4 mg every 5 minutes prn Maximum dose: 4 mg per hour Hold for respiratory rate less than 10 per minute., PACU Recovery 1630 (Given - Provider: Teresita Kang RN)1646 (Given - Provider: Malia Napoles RN) HYDROmorphone (DILAUDID) tablet 2-4 mg 2-4 mg, Oral, EVERY 4 HOURS PRN, Starting on 04/09/16 at 0920, Until 04/09/16 at 1924, Pain, 2mg for pain 4-7 4mg for pain 8-10, Routine 1011 (Given - Provid er: Corinna Davidson RN)1419 (Given - Provider: Corinna Davidson RN) lidocaine (XYLOCAINE) 10 mg/mL (1 %) injection 3 mg 3 mg (0.3 mL), Subcutaneous, ONCE PRN, 1 dose, Starting on Mon04/08/16 at 1000, Until Mon04/08/16 at 1616, for discomfort with PIV insertion, Day of Surgery (Day of Procedure), Routine lidocaine (XYLOCAINE) 10 mg/mL (1 %) injection 3 mg 3 mg (0.3 mL), Subcutaneous, ONCE PRN, 1 dose, Starting on Mon04/08/16 at 1756, Until 04/09/16 at 1924, for discomfort with PIV insertion, Recovery (Recovery-Hospital Unit), Routine loperamide (IMMODIUM) capsule 2 mg 2 mg, Oral, 4 TIMES DAILY PRN, Starting on Mon04/08/16 at 1756, Until 04/09/16 at 1924, Diarrhea, Do not exceed 16 mg/day., Routine midazolam (PF) (VERSED) 1 mg/mL injection 1 mg 1 mg, Intravenous, EVERY 5 MIN PRN, Starting on Mon04/08/16 at 1000, Until Mon04/08/16 at 1122, Sleep, or prior to injection of local anesthetic, Hold for delirium/agitation. (Maximum dose 5 mg)., Day of Surgery (Day of Procedure), Routine 1106 (Given - Provider: Treva Pedroza RN) ondansetron (ZOFRAN) injection 4 mg(Linked Group 1) 4 mg, Intravenous, EVERY 8 HOURS PRN, Starting on Mon04/08/16 at 1756, Until 04/09/16 at 1924, Nausea, May repeat times one in 30 minutes if ineffective. If multiple antiemetics are ordered, use ondanstron first, Recovery (Recovery-Hospital Unit) 1949 (Given - Provider: Paz Coronado RN) 1110 (Given - Provider: Corinna Davidson, [place]) ondansetron (ZOFRAN) tablet 4 mg(Linked Group 1) 4 mg, Oral, EVERY 8 HOURS PRN, Starting on Mon04/08/16 at 1756, Until 04/09/16 at 1924, Nausea, Vomiting, If multiple antiemetics are ordered, use ondansetron first. PO Preferred. If patient unable to take PO, may give IV if ordered. May repeat times one in 45 minutes if ineffective., Recovery (Recovery-Hospital Unit), Routine 1949 (See Alternative - Provider: Paz Coronado RN) 1110 (See Alternative - Provider: Corinna Davidson, [place]) oxyCODONE (ROXICODONE) immediate release tablet 10 mg (CANCELED) 10 mg, Oral, EVERY 4 HOURS PRN, Starting on Mon04/08/16 at 1616, Until 04/09/16 at 0921, Pain, severe pain 7-10, Routine 0043 (Given - Provid er: Mary Alvarez RN) papaverine injection (CANCELED) Administer over 2 Minutes, ONCE PRN, Starting on Mon04/08/16 at 1415, Until 04/09/16 at 1924, Intra-Operative (Intra-Procedure), Routine 1415 (Given - Provider: Andre Marroquin MD) sodium chloride 0.9 % flush 5-20 mL 5-20 mL, Intravenous, EVERY 1 MIN PRN, Starting on Mon04/08/16 at 1000, Until 04/08/16 at 1616, flush, Flush pertains to all indwelling lines. Flush per protocol found in the job aid using the link provided on this medication record., Day of Surgery (Day of Procedure), Routine sodium chloride 0.9 % flush 5-20 mL 5-20 mL, Intravenous, EVERY 1 MIN PRN, Starting on Mon04/08/16 at 1756, Until 04/09/16 at 1924, flush, Flush pertains to all indwelling lines. Flush per protocol found in the job aid using the link provided on this medication record., Recovery (Recovery-Hospital Unit), Routine Linked Groups Order Group 1: ondansetron (ZOFRAN) tablet 4 mgJump to med 4 mg, Oral, EVERY 8 HOURS PRN, Starting on Mon04/08/16 at 1756, Until 04/09/16 at 1924, Nausea, Vomiting, If multiple antiemetics are ordered, use ondansetron first. PO Preferred. If patient unable to take PO, may give IV if ordered. May repeat times one in 45 minutes if ineffective., Recovery (Recovery-Hospital Unit), Routine Or ondansetron (ZOFRAN) injection 4 mgJump to med 4 mg, Intravenous, EVERY 8 HOURS PRN, Starting on Mon04/08/16 at 1756, Until 04/09/16 at 1924, Nausea, May repeat times one in 30 minutes if ineffective. If multiple antiemetics are ordered, use ondanstron first, Recovery (Recovery- Hospital Unit) documented in this encounter Care Teams Beauty Sales Consultant Relationship Specialty Start Date End Date Yaritza Pierre MD [address] [place] [address] PCP - General 03/27/12 11/27/18 documented as of this encounter
--- OUTSIDE RECORDS SUMMARY | 2024-09-14 13:10 | XMS_ITS | Encounter Summary ---
[place] [address] Care Team Providers Care Sequins Spooler Name Role Phone Yaritza Pierre MD Primary Care Provider [phone] Reason for Referral * Diagnostic Test (Routine) - Closed Specialty Diagnoses / Procedures Referred By Contac t Referred To Contact Radiology Diagnoses Scleroderma Abdominal bloating Nausea Procedures MRI Enterography With/WO Contrast Evelyn Miller APRN [facility] [place] [address] [place] [address] Referral ID Status Reason Start Date Expiration Date V isits Requested Visits Authorized [id number] Closed Specialty Service Requested 03/10/2016 05/09/2016 1 1 Reason for Visit * Diagnostic Test (Routine) - Closed Specialty Diagnoses / Procedures Referred By Contac t Referred To Contact Radiology Diagnoses Scleroderma Abdominal bloating Nausea Procedures MRI Enterography With/WO Contrast Evelyn Miller APRN [facility] [place] [address] [place] [address] Referral ID Status Reason Start Date Expiration Date V isits Requested Visits Authorized [id number] Closed Specialty Service Requested 03/10/2016 05/09/2016 1 1 Encounter Details Date Type Department Care Team (Latest Contact Info) Description 03/22/2016 12:56 PM EDT - 03/22/2016 11:59 PM EDT Hospital Encounter MRI at [facility], [place], operated [place] [facility] [address] Sumit Lucas MD [facility] DR GASTROENTEROLOGY [place] [address] Scleroderma; Abdominal bloating; Nausea Discharge Disposition: Home Social History Tobacco Use Types Packs/Day Years Used Date Smoking Tobacco: Former Cigarettes 1 10 0 03/30/1978 - 03/30/1988 Smokeless Tobacco: Never Alcohol Use Standard Drinks/Week Comments No 0 (1 standard drink = 0.6 oz pur e alcohol) Sex and Gender Information Value Date Recorded [...] needed for Pain. 20 tablet 04/08/2016 04/20/2016 esomeprazole (NEXIUM) 40 mg Capsule, Delayed Release(E.C.)Indicatio ns:CKD (chronic kidney disease) stage 3, GFR 30-59 ml/min,Scleroderma,CKD (chronic kidney disease), stage 3 (moderate) Take 1 capsule by mouth daily. 90 capsule 3 03/22/2016 04/28/2017 fosinopril (MONOPRIL) 40 mg TabletIndications:Scle roderma,CKD (chronic kidney disease) stage 3, GFR 30-59 ml/min Take 1 tablet by mouth daily. 90 tablet 3 03/22/2016 09/16/2016 amLODIPine (NORVASC) 10 mg Tablet Take 1 tablet by mouth daily. 90 tablet 3 11/27/2015 03/23/2016 lidocaine-prilocaine (EMLA) cream Apply topically as needed. 30 g 2 05/21/2013 01/09/2020 Acetaminophen 650 mg Tab Take 650 mg by mouth daily as needed. 05/18/2011 09/23/2016 documented as of this encounter Plan of Treatment Upcoming Encounters Date Type Department Care Team (Late st Contact Info) Description 10/07/2024 11:30 AM EST Office Visit Dermatology at [address] [address] Jo Ordaz MD [facility] [place] [address] 12/13/2024 11:30 AM EST Appointment [place] [phone] 12/13/2024 1:00 PM EST Office [place] [phone] Kiet Pardo MD [facility] [place] [address] documented as of this encounter Procedures Procedure Name Priority Date/Time Associated Diagnosis Comments MRI ENTEROGRAPHY WITH/WO CONTRAST Routine 03/22/2016 4:34 PM EDT Scleroderma Abdominal bloating Nausea documented in this encounter Results * MRI Enterography With/WO Contrast (03/22/2016 4:34 PM EDT) Anatomical Region Laterality Modality Abdomen Magnetic Resonan ce Impressions 03/22/2016 4:56 PM EDT IMPRESSION: 1. ??No mass or inflammatory process is identified. The configuration of the bowel loops and bowel folds is normal. 2. ??Multiple hepatic cysts, the largest measuring 26 mm. 3. ??Incidental pancreas divisum. 4. ??Incidental 5 mm cystic focus in the tail the pancreas, possibly a sidebranch IPMN. 5. ??Lobular uterus with leiomyomata. Narrative 03/22/2016 4:56 PM EDT EXAMINATION: MRI ENTEROGRAPHY WITH/WO CONTRAST CLINICAL HISTORY: Abdominal bloating, nausea, h/o scleroderma. 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 ??1ml glucagon was also administered. COMPARISON: None FINDINGS: GI tract: No dilated small or large bowel, bowel wall thickening, or mesenteric inflammation. ??No mucosal hyperenhancement. No free fluid or focal fluid collection. Liver: Normal in size and signal intensity. Multiple T2 hyperintense, T1 hypointense, nonenhancing simple hepatic cysts are noted. The largest is in the lateral segment left lobe measuring 23 x 26 mm. Patent hepatic and portal veins. No intrahepatic biliary ductal dilatation. Gallbladder unremarkable. No intraluminal filling defects visualized. Spleen: Normal. Kidneys/adrenal glands: Several T2 hyperintense nonenhancing foci are present within each kidney, the largest of which measures 10 mm. These are consistent with simple cysts. No renal collecting system dilatation. Pancreas: Normal size and signal intensity. There is a less than 5 mm T2 hyperintense focus contiguous with the duct in the tail of the pancreas. The main pancreatic duct terminates at the minor papilla consistent with pancreas divisum. Lymph nodes: No lymphadenopathy. The uterus is diffusely lobular and decreased in T2 signal intensity. Scattered regions of hypoenhancement likely represent uterine leiomyomata. There are no adnexal masses although the ovaries are suboptimally visualized. Osseous structures: No marrow signal abnormality. 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 COMPARISON: None FINDINGS: GI tract: No dilated small or large bowel, bowel wall thickening, ormesenteric inflammation. No mucosal hyperenhancement. No free fluid or focal fluid collection. Liver: Normal in size and signal intensity. Multiple T2 hyperintense, T1 hypointense, nonenhancing simple hepatic cysts are noted. The largest isin the lateral segment left lobe measuring 23 x 26 mm. Patent hepatic and portalveins. No intrahepatic biliary ductal dilatation. Gallbladder unremarkable. No intraluminal filling defects visualized. Spleen: Normal. Kidneys/adrenal glands: Several T2 hyperintense nonenhancing foci arepresent within each kidney, the largest of which measures 10 mm. These areconsistent with simple cysts. No renal collecting system dilatation. Pancreas: Normal size and signal intensity. There is a less than 5 mm T2 hyperintense focus contiguous with the duct in the tail of the pancreas.The main pancreatic duct terminates at the minor papilla consistent withpancreas divisum. Lymph nodes: No lymphadenopathy. The uterus is diffusely lobular and decreased in T2 signal intensity.Scattered regions of hypoenhancement likely represent uterine leiomyomata. There areno adnexal masses although the ovaries are suboptimally visualized. Osseous structures: No marrow signal abnormality. IMPRESSION IMPRESSION: 1. No mass or inflammatory process is identified. The configuration ofthe bowel loops and bowel folds is normal. 2. Multiple hepatic cysts, the largest measuring 26 mm. 3. Incidental pancreas divisum. 4. Incidental 5 mm cystic focus in the tail the pancreas, possibly asidebranch IPMN. 5. Lobular uterus with leiomyomata. Sumit Lucas MD IMG MRI ORDERABLES documented in this encounter Visit Diagnoses Diagnosis Scleroderma Systemic sclerosis Abdominal bloating Flatulence, eructation, and gas pain Nausea Nausea alone documented in this encounter Administered Medications Inactive Administered Medications - up to 3 most recent administrations Medication Order MAR Action Action Date Dose Rate Site gadobutrol (GADAVIST) 1 mMol/mL injection 6 mL 6 mL, Intravenous, ONCE PRN, 1 dose, Starting on Mon03/22/16 at 1340, Until Tu03/22/16 at 1634, Per Protocol, Routine Given 03/22/2016 4:34 PM EDT 6 mLs documented in this encounter Care Teams Sequins Spooler Relationship Specialty Start Date End Date Yaritza Pierre MD [address] [place], [place] [id number] PCP - General 03/27/12 11/27/18 documented as of this encounter
--- OUTSIDE RECORDS SUMMARY | 2024-09-14 13:10 | XMS_ITS | Encounter Summary ---
[place] [address] Care Team Providers Care Communications Technician Name Role Phone Yaritza Pierre MD Primary Care Provider [phone] Reason for Visit * Reason Onset Date Comments Other 05/24/2016 Encounter Details Date Type Department Care Team (Late st Contact Info) Description 05/24/2016 Telephone [place] [phone] Gem Richey, RN Other Social History Tobacco Use Types [...] Telephone Encounter - Gem Richey RN - 05/24/2016 12:46 PM EDT Amber would not like to go to the ER. She is going to call her PCP to see if she can get in to be seen today. * Telephone Encounter - Gem Richey RN - 05/24/2016 12:18 PM EDT Amber calls and reports that she is having problems with her finger being swollen. RTC to Amber and she reports that her Right Middle Finger is swollen, red, painful, cool to touch, and occasionally drains green drainage. Amber denies any fevers. She states the finger has been this way for 3 weeks and her PCP prescribed an antibiotic but it did nothing. She is not sure what the antibiotic was. She would like to send a picture but is not able to download it on [facility] after multiple attempts. Amber states she is using Emla Cream as the pain is really bad. She would like recommendations from Dr. Mcdonough. documented in this encounter Plan of Treatment Upcoming Encounters Date Type Department Care Team ([facility] st Contact Info) Description 10/07/2024 11:30 AM EST Office Visit Dermatology at [place] [address] [place] [address] Jo Ordaz MD [facility] [place] [address] 12/13/2024 11:30 AM EST Appointment [place] [phone] 12/13/2024 1:00 PM EST Office [place] [address] Kiet Pardo MD [facility] [place] [address] documented as of this encounter Visit Diagnoses Not on filedocumented in this encounter Care Teams Communications Technician Relationship Specialty Start Date End Date Yaritza Pierre MD [address] [place] [address] PCP - General 03/27/12 11/27/18 documented as of this encounter
--- OUTSIDE RECORDS SUMMARY | 2024-09-14 13:10 | XMS_ITS | Encounter Summary ---
Author Organization [facility] Address [facility] [place] [address] Care Team Providers Care Lieutenant Governor Name Role Phone Yaritza Pierre MD Primary Care Provider [phone] Encounter Details Date Type Department Care Team (Late st Contact Info) Description 06/01/2016 9:45 AM EDT Office [place] [address] Candice Gutierrez, RN [facility] [address] Scleroderma; Raynaud's disease without gangrene; Vascular abnormality; Painful skin lesion Social History Tobacco Use Types Packs/Day [...] Sign Reading Time Taken Comments Blood Pressure 98/59 06/01/2016 10:09 AM EDT Pulse 71 06/01/2016 10:09 AM EDT Temperature 36.6 ??C (97.8 ??F) 06/01/2016 10:09 AM E DT Respiratory Rate 18 06/01/2016 10:09 AM EDT Oxygen Saturation 98% 06/01/2016 10:09 AM EDT Inhaled Oxygen Concentration - - Weight 60.3 kg (133 lb) 06/01/2016 10:09 AM EDT Height 167.6 cm (5' 6) 06/01/2016 10:09 AM EDT Body Mass Index 21.47 06/01/2016 10:09 AM EDT documented in this encounter Progress Notes * Candice Gutierrez, NETWORKING ADMINISTRATOR - 06/01/2016 9:45 AM EDT Amber Wells is a 56 y.o. female seen urgently for evaluation of right hand D3/long finger pain, color changes and wound . Last seen in March by Dr. Mcdonough in March 2016 PROBLEM LIST: 1. Diffuse systemic sclerosis. (A) Initially diagnosed [place] [address] Placido Lora at [facility] in [place]. Then followed by Dr. Peyton Hinton in [facility] in [place] in 04/2010. . Echo and PFTs 12/09/11 both normal. (B) Treatment in the past has included intermittent penicillamine and methotrexate, however, she has been off immunosuppressive therapy since approximately 2005. (C) Hospitalization in 03/2010 in [place] with scleroderma hypertensive renal crisis, on dialysis for two months ending in mid 06/2010. (D) One visit with Dr. Ten Gonzalez in [place], [place] in late 2009. 2. Chronic kidney disease, stage III, with associated anemia. Currently followed by Dr. Sumit Sawyer in nephrology. 3. Raynaud's symptoms. 4. GERD. HPI: Contact with office from OSH ED on 05/28/2016. Reports finger turned black, increased pain while watching a jazz concert in [facility]. Seen at local ED. Treated with medicine for anxiety, pain and topical anesthetic. Restarted sildenafil 20 mg once daily and continues amlopdipine 10 mg po at hs. Finger less tender, now pink and warm. Dark raised sbump at distal tip of finger. Using warming packets. Has had no fever, chills, or systemic symptoms. Seen earlier today in Plastic Surgery. Planned MRI right hand. Procedural planning for procedure similar to one completed on left on 04/08/2016 (Left ulnar artery resection and reconstruction with left cephalic vein). Incision intact and dry. Seen in Gastroenterology periodically for management of GERD and bowel dysfunction associated with scleroderma. No oral ulcers, dental caries, painful or difficult swallowing, dry cough or dyspnea. Periodic follow up Nephrology - CKD planned or 06/2016. Current Outpatient Prescriptions on File Prior to Visit Medication Sig Dispense Refill ??? aspirin 81 mg Tablet, Chewable Take 81 mg by mouth daily. 30 tablet 3 ??? amLODIPine (NORVASC) 10 mg Tablet Take 1 tablet by mouth daily. 90 tablet 3 ??? esomeprazole (NEXIUM) 40 mg Capsule, Delayed Release(E.C.) Take 1 capsule by mouth daily. 90 capsule 3 ??? fosinopril (MONOPRIL) 40 mg Tablet Take 1 tablet by mouth daily. 90 tablet 3 ??? vitamin E 400 unit Capsule Take 400 Units by mouth daily. ??? lidocaine-prilocaine (EMLA) cream Apply topically as needed. 30 g 2 ??? Cholecalciferol, Vitamin D3, (VITAMIN D) 1,000 unit Cap Take 1 tablet by mouth daily. ??? codeine 30 mg Tablet Take 30 mg by mouth every 6 hours as needed for Pain. ??? acetaminophen (TYLENOL) 500 mg Tablet Take 2 tablets by mouth every 8 hours as needed for Pain.(Patient not taking: Reported on 06/01/2016) 30 tablet 1 ??? loperamide (IMMODIUM) 2 mg Capsule Take 2 mg by mouth 4 times daily as needed for Diarrhea. ??? Acetaminophen 650 mg Tab Take 650 mg by mouth daily as needed. ??? nitroGLYcerin (NITROGLYN) 2 % ointment Place 0.5 inches onto the skin every 6 hours. No current facility-administered medications on file prior to visit. No Known Allergies ?? Physical examination: Vitals: 06/01/16 1009 BP: 98/59 Pulse: 71 Resp: 18 Temp: 36.6 ??C (97.8 ??F) SpO2: 98% Weight: 60.3 kg (133 lb) Height: 167.6 cm (5' 6) Constitutional: Pleasant adult female in no acute distress HEENT: Normocephalic, atraumatic. Eyes: sclera clear, oral mucous membranes dry and intact. (-) thyromegaly anterior cervical lymphadenopathy, parotid or submandibular gland enlargement. CHEST: Heart RRR, (-) murmur or extra sound. Lungs: (-) wheezing, rales or rhonchi. Neurological: Gait even and co-ordinated. Speech clearly articulated. Skin: Warm, dry, tight skin around her mouth with furrowing of the skin, remaining facial skin involved; chest wall normal, thickened shiny skin from her fingertips up to her mcps, thick skin on the dorsum of her hands up to her mid forearms. There is pitting in all of her fingertips, RIght D 3 distal and ulnar aspect adjacent to nail, dark bluish raised papule-like collection of fluid ~ 5 mm, borders discrete. No drainage. Surrounding skin pink and warm. Musculoskeletal: Joints: + sclerodactyly, flexion contractures of all of her fingers, she can not make a complete fist, (-) synovitis, all of her other joints are normal. Assessment: RiGHT hand long finger, lesion; systemic sclerosis with GERD, Raynaud's, sclerodactyly and a hx of scleroderma renal crisis and now stage [address] Sawyer Plan: Case and assessment findings reviewed with Mg Mcdonough, who also examined the patient. ?? Continue current plan of care - sildenafil 20 mg once daily in AM. ?? Amlodipine 10 mg at hs. ?? Continue EMLA. ?? Discussion to maintain core warmth reinforced. ?? Tylenol with codeine 300/30 and lorazepam 0.5 mg at hs - prescriptions provided. ?? Indications for pain management reviewed. ?? Ongoing planning per Plastic Surgery. ?? Office contact for concerns, questions or increased signs/symptoms. documented in this encounter Plan of Treatment Upcoming Encounters Date Type Department Care Team (Late st Contact Info) Description 10/07/2024 11:30 AM EST Office Visit Dermatology at [facility] [address] [place] [address] Jo Ordaz MD [facility] [place] [address] 12/13/2024 11:30 AM EST [place] [phone] 12/13/2024 1:00 PM EST [place] [phone] Kiet Pardo MD [facility] [place] [address] documented as of this encounter Visit Diagnoses Diagnosis Scleroderma Systemic sclerosis Raynaud's disease without gangrene Vascular abnormality Unspecified circulatory system disorder Painful skin lesion documented in this encounter Care Teams Lieutenant Governor Relationship Specialty Start Date End Date Yaritza Pierre MD [address] [place] [id number] PCP - General 03/27/12 11/27/18 documented as of this encounter
--- OUTSIDE RECORDS SUMMARY | 2024-09-14 13:10 | XMS_ITS | Encounter Summary ---
[facility] [place] [address] Care Team Providers Care Architectural Project Manager Name Role Phone Yaritza Pierre MD Primary Care Provider [phone] Reason for Visit * Auth/Cert Specialty Diagnoses / Procedures Referred By Wander hernandez Referred To Contact Diagnoses Left ulnar artery recon Procedures PRO APPLY FOREARM SPLINT, STATIC PRO REBL VES VEIN GRFT, UP EXTREM SPLINT APPLICATION, SHORT ARM Referral ID Status Reason Start Date Expiration Date Visits Re quested Visits Authorized [id number] 1 1 Encounter Details Date Type Department Care Team (Late st Contact Info) Description 04/08/2016 11:45 AM EDT Anesthesia Event [place] [address] Krishna Smith MD [facility] [place] [address] Cheyenne Gonzalez DO [facility] [place] [address] Anesthesia Record Procedure Summary Procedure Name Responsible Anesthesiologist Anesthesia Start Time Anesthesia Stop Time SPLINT APPLICATION, SHORT ARM (WRVU 0.5) (Left) Krishna Smith MD 04/08/16 1145 04/08/16 1603 Events Date Time Event Comment 04/08/2016 1058 1145 AN Verify 1145 Start 1145 An Start Data 1157 An Induction 1200 An Intubation 1202 Anesthesia Ready 1225 An Tourn Inflated Tourniquet to 250 mmHg. 1249 An Tourn Deflated 1318 Quick Note Ear probe locat ion changed r ear 1332 An Tourn Inflated Tourniquet to 250 mmHg. 1516 An Tourn Deflated 1555 Extubation/LMA Out 1555 an stop data 1601 Recovery or ICU Handoff Lorri ent care was transferred to the destination unit staff after review of the patient's medical history, current anesthetic/surgical status and plan, according to the Provider Handoff Checklist. 1603 Stop Meds Name Total Midazolam 2 mg fentaNYL 100 mcg Propofol 180 mg Rocuronium 50 mg Ondansetron 4 mg Dexamethasone 8 mg ceFAZolin (ANCEF) 2g in dextrose 5% 50 m L 2 g lactated ringers infusion 1,000 mL 1,300 mL * Agents Name O2 Air N2O Sevoflurane (et) * Blood No blood administrations on file. Lines, Drains, and Airways Type Details Placement Removal Incision arm; 07/18/22 (LDA cleanup utility RA#[id number]); 1715 (LDA cleanup utility RA#[id number]) 04/08/16 1242 by 07/18/22 1715 by Dena Armendariz Incision 04/08/16; leg; 04/08; 1628 04/08/16 0000 by Davin Mayen RN 04/08/16 1628 by Teresita Kang, [place] (RETIRED) Peripheral IV Line - Single Lumen 04/08/16; 1031; metacarpal vein right (top of hand); [id number] catheter system; 20 gauge; Treva Pedroza RN; distraction, intradermal injection, tolerated well, appears comfortable, age-appropriate response; 04/09/16; 1427 04/08/16 1031 by Treva Pedroza, [place] 04/09/16 1427 by Corinna Davidson, RN ETT Mask Ventilation: Ea jane (1); ETT Type: Cuffed, Oral; ETT Size: 7 mm; Mac Blade: 3; Notes: Asleep, Pre-O2, Stylette, Cricoid Pressure; Attempts: 1; Laryngoscopy Grade: 2; ETT Placement Verified By: Capnometry, Visual; Secured at Teeth: 21 cm; Inserted by: Jerrod, MD; Removal Date: 04/08/16; Removal Time: 1555 04/08/16 1200 by Guillermina Frost MD 04/08/16 1555 by Guillermina Frost MD Urethral Catheter 04/08/16; 1211; Surg cathy longer than 2 hours; latex; 14; inserted at this facility; 1; 10; 10; 04/08/16; 1841 04/08/16 1211 by Davin Mayen RN 04/08/16 1841 by Paz Coronado RN documented in this encounter Social History [...] OR Notes * Anesthesia Postprocedure Evaluation - Guillermina Frost MD - 04/10/2016 7:15 AM EDT [facility] Department of Anesthesiology Post-procedure Note Patient: Amber Wells Procedure Summary Date Anesthesia Start Anesthesia Stop Room / Location 04/08/16 1145 1603 [facility] OR 28 / [facility] MAIN OR Procedure Diagnosis Surgeon Responsible Provider SPLINT APPLICATION, SHORT ARM (Left ); REPAIR BLOOD VESSEL WITH VEIN GRAFT, UPPER EXTREMITY (Left )(Left ulnar artery recon) Andre Marroquin MD Hartman, Gregg S, MD All Anesthesia Providers: Anesthesiologist: Krishna Smith MD Bedspread Folder: Guillermina Frost MD Last (1hr) Vitals: BP Temp Pulse Resp SpO2 Patient Location: PACU/[facility] Level of Consciousness: Awake and Alert Pain Management: Satisfactory Analgesia PONV: None Cardiovascular Status: At Baseline Respiratory Status: At Baseline Postoperative Fluid Status: Intravascular EUvolemia Possible Anesthetic Complications: NONE apparent at time of evaluation Final Primary Anesthesia Type: General (The anesthetic type performed was the same as planned.) Comments: Patient denies intraoperative awareness. No complications related to anesthesia. GUILLERMINA FROST MD [id number] CA-1 * Anesthesia Procedure Notes - Luke Fishman MD - 04/08/2016 12:08 PM EDT Associated Order(s): ANESTHESIA BLOCK Procedure: Anesthesia Block Block: Post-op Pain Control, supraclavicular nerve block Patient Location: Block Room Indication/Prep Position: supine Prep: chlorhexidine, patient draped, mask, cap, sterile gloves, hand hygeine Laterality: left Skin Medication lidocaine 1% 3 ml Injection Information Ultrasound Guidance: live and in-plane Ultrasound guidance was used to identify the targeted neuronal structure. Ultrasound was also used to identify needle positon and to identify surrounding tissue (bone, muscle, and blood vessels) to prevent inadvertent intraneural or intravascular needle placement and injection. The spread of local anesthetic was confirmed with live ultrasound imaging. Injection technique:single-shot Needle Length: 5 cm Gauge: 20 Needle Type: Y-[id number]-nbibc Medication injection made incrementally with aspirations. Nerve infiltration solution through a needle Ropivicaine 0.5% 22 mL Resident: Fellow: Kye Attending Physician: Laureano ~~~~~~~~~~~~~~~~~~~~~~~~~~~~~~~~~~~~~~~~~~~~~~~~~~~~~~~~~~~~ * Anesthesia Preprocedure Evaluation - Guillermina Frost MD - 04/07/2016 4:16 PM EDT Pre-Anesthesia Evaluation for: Amber Wells a 55 y.o. female. Procedure(s): SPLINT APPLICATION, SHORT ARM REPAIR BLOOD VESSEL WITH VEIN GRAFT, UPPER EXTREMITY Patient Active Problem List Diagnosis ??? Fecal incontinence ??? Other disorder of [...] crisis Had tunnelled dialysis catheter removed at [facility] IR in June 2010 ??? Scleroderma Past [...] ??? Scleroderma 1990 Diffuse scleroderma. Past Surgical History Procedure Laterality [...] ULTRASOUND performed by Darryl Ash MD at [facility] ENDOSCOPY ??? Pro upper gi endoscopy, biopsy N/A 03/29/2016 UPPER GASTROINTESTINAL ENDOSCOPY,WITH BIOPSY SINGLE OR MULTIPLE performed by Darryl Ash MD at [facility] ENDOSCOPY History Substance Use Topics ??? Smoking status: Former Smoker Packs/day: 1.00 Years: 10.00 Types: Cigarettes Quit date: 03/30/1988 ??? Smokeless tobacco: Never Used ??? Alcohol use: 0.6 oz/week 1 Glasses of wine per week Comment: once a week History Drug Use No No Known Allergies Medications: MAR and/or home medications have been reviewed. Physical Exam: There were no vitals filed for this visit. There is no height or weight on file to calculate BMI. Airway Assessment: Mallampati: II TM distance: >3 FB Neck ROM: full Cardiovascular Assessment: Rhythm: regular Pulmonary Assessment: breath sounds clear to auscultation Dental Assessment: - normal exam Misc Assessment: Anesthesia Plan: ASA 3 Regional, with a(n) intravenous induction This is a 55 y.o. female here for left ulnar artery reconstruction necessary 2/2 scleroderma/severeRaynaud's. The patient's past medical history, past surgical history, medications, and allergies were reviewedand notable for: Systemic scleroderma c/b hx renal crisis requiring a period of dialysis now with CKD 3. PFTs with only mild obstructive disease (FEV1 >70%) and limited evidence of restrictive disease TTE 03/31/16 EF 65%, no WMA, no significant valvular disease PAP 29mmHg GERD Raynaud's Fecal incontinence Patient's documented history was negative for seizures, CVA, cardiopulmonary disease, hepatic/renaldisease or coagulopathy. There is no evidence of any recent URI or UTI symptoms, fevers/chills, or other indication of infection. Exercise tolerance: Fair Labs -no recent labs, no T/S Type and Screen: No results found for: ABORH Allergies: No Known Allergies NPO Status: Appropriate Anesthetic History: tolerated MAC for endo procedure earlier this month Anesthetic Plan: The anesthetic plan will be deferred to the primary anesthesia team. Surgical supraclavicular block with MAC Standard ASA monitoring Adequate IV access The patient was informed of the risks, benefits and alternatives of anesthesia. These risks included, but were not limited to, post-operative nausea and/or vomiting, pain, sore throat, dental/lip trauma, and other rare but serious complications such as major organ damage, awareness, severe allergicreactions, position-related nerve injuries, and need blood transfusions. All questions sought and answered. Consent was signed and placed in chart. CHEYENNE GONZALEZ, PhD 04/07/2016 55yo woman 63kg (IBW 52kg) c history of bilateral ulnar artery occlusion to OR c Dr. Marroquin for LEFT ulnar artery reconstruction c graft. GA c ETT Adequate venous access Standard ASA monitors GUILLERMINA FROST MD [id number] CA-1 Region - Other Informed Consent: PAT Staff Note documented in this encounter Plan of Treatment Upcoming Encounters Date Type Department Care Team (Late st Contact Info) Description 10/07/2024 11:30 AM EST Office Visit Dermatology at [facility] [address] [address] Jo Ordaz MD [facility] [place] [address] 12/13/2024 11:30 AM EST Appointment [place] [phone] 12/13/2024 1:00 PM EST Office [place] [address] Kiet Pardo MD [facility] [place] [address] documented as of this encounter Procedures Procedure Name Priority Date/Time Associated Diagnosis Comments ANESTHESIA BLOCK Routine 04/08/2016 12:0 9 PM EDT Procedure Note - Luke Fishman MD - 04/08/2016 12:08 PM EDTThis note is in progress. Procedure: Anesthesia Block Block: Post-op Pain Control, supraclavicular nerve block Patient Location: Block Room Indication/Prep Position: supine Prep: chlorhexidine, patient draped, mask, cap, sterile gloves, handhygeine Laterality: left Skin Medication lidocaine 1% 3 ml Injection Information Ultrasound Guidance: live and in-plane Ultrasound guidance was used to identify the targeted neuronalstructure. Ultrasound was also used to identify needle positon and toidentify surrounding tissue (bone, muscle, and blood vessels) to preventinadvertent intraneural or intravascular needle placement and injection.The spread of local anesthetic was confirmed with live ultrasoundimaging. Injection technique:single-shot Needle Length: 5 cm Gauge: 20 Needle Type: X-dnaeb-okvhb Medication injection made incrementally with aspirations. Nerve infiltration solution through a needle Ropivicaine 0.5% 22 mL Resident: Fellow: Kye Attending Physician: Laureano ~~~~~~~~~~~~~~~~~~~~~~~~~~~~~~~~~~~~~~~~~~~~~~~~~~~~~~~~~~~~ documented in this encounter Visit Diagnoses Not [...] OR, Indication for (Active or Suspected): Prophylaxis Given 04/08/2016 12:06 PM EDT 2 g dexamethasone (DECADRON) injection PRN, Starting on Mon04/08/16 at 1205, Until Mon04/10/16 at 0715, Anesthesia Intra-op, Routine Given 04/08/2016 12:05 PM EDT 8 mg fentaNYL 50 mcg/mL multi-dose injection PRN, Starting on Mon04/08/16 at 1156, Until Mon04/10/16 at 0715, Pain, Anesthesia Intra-op, Routine Given 04/08/2016 11:59 AM EDT 50 mcg Given 04/08/2016 11:56 AM EDT 50 mcg lactated ringers infusion 1,000 mL 1,000 mL, at 100 mL/hr, Intravenous, CONTINUOUS, Starting on Mon04/08/16 at 1030, Until Mon04/08/16 at 1616, Day of Surgery (Day of Procedure) New Bag 04/08/2016 11:52 AM EDT New Bag 04/08/2016 10:30 AM EDT 1,000 mLs 100 mL/hr midazolam (PF) (VERSED) 1 mg/mL multi-dose injection PRN, Starting on Mon04/08/16 at 1155, Until Mon04/10/16 at 0715, Sleep, Anesthesia Intra-op, Routine Given 04/08/2016 11:55 AM EDT 2 mg ondansetron (ZOFRAN) injection PRN, Starting on Mon04/08/16 at 1538, Until Mon04/10/16 at 0715, Nausea, Anesthesia Intra-op, Routine Given 04/08/2016 3:38 PM EDT 4 mg propofol (DIPRIVAN) 10 mg/mL bolus injection (Anesthesia) PRN, Starting on Mon04/08/16 at 1157, Until Mon04/10/16 at 0715, Anesthesia Intra-op Given 04/08/2016 3:43 PM EDT 40 mg Given 04/08/2016 12:01 PM EDT 40 mg Given 04/08/2016 11:57 AM EDT 100 mg rocuronium (ZEMURON) multi-dose injection PRN, Starting on Mon04/08/16 at 1157, Until Mon04/10/16 at 0715, Anesthesia Intra-op, Routine Given 04/08/2016 11:57 AM EDT 50 mg documented in this encounter Care Teams Architectural Project Manager Relationship Specialty Start Date End Date Yaritza Pierre MD [address] [place] [address] PCP - General 03/27/12 11/27/18 documented as of this encounter
--- OUTSIDE RECORDS SUMMARY | 2024-09-14 13:10 | XMS_ITS | Encounter Summary ---
Author Organization [facility] [place] [address] Care Team Providers Care Paint Tinter Name Role Phone Yaritza Pierre MD Primary Care Provider [phone] Encounter Details Date Type Department Care Team (Late st Contact Info) Description 05/17/2016 Orders [place] [address] Diann Cain PA [address] [place] [address] [place] [address] Fecal incontinence Social History Tobacco Use Types Packs/Day Years [...] at [facility] [address] [place] [address] Jo Ordaz MD [facility] [place] [address] 12/13/2024 11:30 AM EST Appointment [place] [phone] 12/13/2024 1:00 PM EST Office [place] [phone] Kiet Pardo MD [facility] [place] [address] documented as of this encounter Visit Diagnoses Diagnosis Fecal incontinence Full incontinence of feces documented in this encounter Care Teams Paint Tinter Relationship Specialty Start Date End Date Yaritza Pierre MD [address] [place] [address] PCP - General 03/27/12 11/27/18 documented as of this encounter
--- OUTSIDE RECORDS SUMMARY | 2024-09-14 13:10 | XMS_ITS | Encounter Summary ---
Author Organization [facility] Address [facility] [place] [address] Care Team Providers Care Bank Boss Name Role Phone Yaritza Pierre MD Primary Care Provider [phone] Encounter Details Date Type Department Care Team (Latest Contact Info) Description 03/28/2016 7:00 PM EDT Tech Visit [place] [address] Sumit Lucas MD [facility] DR GASTROENTER[place] [address] Gastroesophageal reflux disease, esophagitis presence not specified Social History Tobacco Use Types Packs/Day Years [...] as of this encounter Progress Notes * Sumit Lucas MD - 04/06/2016 10:25 PM EDT HIGH-RESOLUTION ESOPHAGEAL MANOMETRY Amber Priscilla [address] [facility] [address] : 1960 STUDY DATE: 03-28-2016 PROVIDER: Sumit Lucas, PhD, ([id number]) INDICATION GERD; scleroderma METHODS Stationary esophageal manometry was performed with the ManoScan ESO version 3.0 in a supervised setting after verbal consent and after topical anesthesia to the nares. This system uses 36 individual circumferential solid state sensors spaced 1 cm apart. The outer diameter of the probe is 4.2 mm. Length, resting pressure, pressure inversion point (PIP), and relaxation of the lower esophageal sphincter (LES) was measured. The high pressure zone of the upper esophageal sphincter (UES) was measured. Water swallows were provided after a 5-px-0-minute accommodation period to assess LES function andfunction of the esophageal body. FINDINGS LES (lower esophageal sphincter) Distal border of LES identified at 45 cm. Proximal border of LES identified at 43 cm. Hiatal hernia present? Yes, sliding; 1.5 cm Basal pressure respiratory mean pressure 14.5 mmHg (normal = 15-34 mmHg). Residual mean pressure (integrated relaxation pressure - IRP) 8.5 mmHg (normal = <15 mmHg). BODY OF ESOPHAGUS Water Swallows: 10. Failed: 70%. Transmitted (peristaltic): 30%. Panesophageal pressurization: 0% Premature: 0% Rapid: 0% With large breaks: 10%. With small breaks: 20%. DCI (distal contractile integral): 307 mmHg-cm-s (normal is 450 to 5000 mmHg-cm-s). Contractile front velocity: 4.0 cm/s (normal is <9.0 cm/s). Intrabolus pressure (average maximum): 3.7 mmHg (normal is <17.0 mmHg). Distal latency: 8.4 UES (upper esophageal sphincter) Distal border of UES identified at 18.9 cm and extended to 16.6 cm. UES basal pressure 81 mmHg (normal = 34-104 mmHg). Residual pressure 1 mmHg (normal = <12 mmHg). IMPRESSION 1. Normal LES resting pressure. 2. Normal LES relaxation (IRP, integrated relaxation pressure). 3. Normal UES resting pressure. 4. Normal UES relaxation. 5. Ineffective motility in the body of the esophagus (IEM). 6. Evidence of a small, sliding hiatal hernia on this study. 7. Low DCI (distal contractile integral). This is a measure of contractile vigor. 8. Recent HREM studies have shown that not all patients with scleroderma have classic findings of very low LES pressure and absent peristalsis. Some have IEM. These results should be placed in the appropriate clinical context. Sumit Lucas, PhD, MD mill laborer, [facility] Chief, Section of Gastroenterology and Hepatology [facility] [place] [address] V: [phone] F: [phone] CC/EC: PCP documented in this encounter Plan of Treatment Upcoming Encounters Date Type Department Care Team ([facility] st Contact Info) Description 10/07/2024 11:30 AM EST Office Visit Dermatology at [address] [phone] Jo Ordaz MD [facility] [place] [address] 12/13/2024 11:30 AM EST [place]ointment [place] [address] 12/13/2024 1:00 PM EST Office [place] [address] Kiet Pardo MD [facility] [address] documented as of this encounter Visit Diagnoses Diagnosis Gastroesophageal reflux disease, esophagitis presence not specified documented in this encounter Care Teams Bank Boss Relationship Specialty Start Date End Date Yaritza Pierre MD [address] [place] [address] PCP - General 03/27/12 11/27/18 documented as of this encounter
--- OUTSIDE RECORDS SUMMARY | 2024-09-14 13:10 | XMS_ITS | Encounter Summary ---
Author Organization Formerly [facility] [place] [address] Care Team Providers Care Air Crew Member Name Role Phone Yaritza Pierre MD Primary Care Provider [phone] Reason for Visit * Reason Comments Follow-up f/u MRI Encounter Details Date Type Department Care Team (Late st Contact Info) Description 03/10/2016 10:45 AM EDT Office Visit [place] [address] Andre Marroquin MD [facility] [place] [address] Raynaud's disease without gangrene; Scleroderma Social History Tobacco Use Types Packs/Day [...] this encounter Patient Instructions * Patient Instructions* Alla Shin RMA - 03/10/2016 11:35 AM EDT Written and verbal preoperative instructions were given at this visit. Please review the written information prior to your procedure and contact us with any questions. Feel free to call our office [phone] if you have any questions or concerns. We monitor the phones from 8-Monday - Monday.You were given written and verbal preoperative instructions today. To prepare for your upcoming surgery, please review the Pre-Operative Instruction brochure that wasgiven to you. Remember to do the pre op wash, with Hibiclens soap, as instructed. You will need a otr hazmat company driver. Expect a call from the nurses from the Same Day Dept. the business day before the surgery to instruct you in the time to arrive as well as when to stop eating and drinking. Feel free to call our office @ [phone] if you have any questions or concerns. We monitor the phones from -Monday through Monday. documented in this encounter Progress Notes * Alla Shin RMA - 03/10/2016 11:34 AM EDT Pre-Op Teaching for Surgery Surgery: Left ulnar artery reconstruction with vein graft Written and verbal pre-operative instructions were given and reviewed with patient: Patient was advised to discontinue use of NSAIDS and aspirin products (unless otherwise advised by patient's PCP/General Foreman for cardiac symptoms), fish oil, Vitamin E and herbal supplements for 14 days prior to surgery, to perform the pre-op scrub, and to coordinate a ride home following surgery. Smoking status and medications were further reviewed to rule out/address current use of Nicotine, Coumadin, Plavix, Estrogen or Tamoxifen. Patient was instructed to call the clinic at with any questions or concerns prior tosurgery. * Andre Marroquin MD - 03/10/2016 10:44 AM EDT Plastic Surgery Office Note Office Visit Follow Up CC: Scleroderma, and Raynaud's?? bilateral hands HPI: Amber Wells returns to clinic today in follow up to review the results of her recent MRA. she reports the other night she was carrying a chair that was not heavy and she has had pain in her right hand since this episode. She also reports discomfort in her right forearm after painting for2 hours. She is very active and wants to know how long she will be restricted post operatively. Shewants to know if she can apple picker her post operative harding medication prior to her surgery so she doesnot have to go to the pharmacy right after having surgery. She reports she did not do well with IV narcotic pain medication because they made her too sick. She reports she is scheduled for an endoscopy, and MRI in March and would like to coordinate the surgeries around these tests. I asked her if she would like a sticker hand for today's visit, she declined, and stated she understands Ok. Exam: No acute distress Bilateral?? Upper extremity:? Hand: Tight, erythematous skin over all digits has improved, no ulcers, no acute infection, no exposed bone, hand stiffness. On doppler absent ulnar artery bilaterally, intact radial, weak arch, no digital vessels. Ulnar artery occlusion bilaterally MRI, MRA 03/01/16 IMPRESSION: ?? 1.?? The distal ulnar artery at the level of the carpal bones is either extremely stenotic or occluded. 2.?? The radial artery supplies the deep palmar arch which terminates at the level of the fourth metacarpal with a possible small communicating vessel to the distal ulnar artery. 3.?? The superficial palmar arches diminutive throughout and likely incomplete terminating in the region of the fourth metacarpal. There is a questionable thin communicating vessel to the radial artery. 4.?? Poor visualization of the distal digital arteries is possibly secondary to vasospasm in the setting of Raynauds. If MRA images are not adequate for surgical planning, consider referral to interventional radiology for diagnostic angiogram. Impression: Amber Wells returns today to finalize a surgical plan for exploration of the leftulnar artery with reconstruction with a vein graft. We discussed the procedure in detail, as well as post operative expectations and restrictions. She is aware that she will need to limit her activities for 2-4 weeks post op. She is aware that surgery will not cure her Raynaud's, and Scleroderma and there is always a risk of recurrence. The Risk, benefits, alternative, complications of the procedure to include anesthesia plan and recovery were discussed with the patient and informed consent obtained. She understands and wishes to improve. In regards to her right arm discomfort I advised her that it is consistent with De Quervain's tenosynovitis and I recommend she rest the arm. Plan: Rest right hand Schedule for surgery Call if any further questions prior to surgery Surgeon: Lopez Duration: 4 hours 1 night overnight stay Timeframe: elective Procedure: Ulnar artery reconstruction with vein graft CPT: 82805, 43043 Surgical site: arm Side: left Anesthesia: General Follow up: 7 Days PAT: No Microscope I, Анна Fishman, am acting as scribe for Dr Marroquin All work documented was performed by Dr Marroquin. ???I performed the above scribed service and agree with the accuracy of the note?? Andre Marroquin MD documented in this encounter Plan of Treatment Upcoming Encounters Date Type Department Care Team ([facility] st Contact Info) Description 10/07/2024 11:30 AM EST Office Visit Dermatology at [address] [address] Jo Ordaz MD [facility] [place] [address] 12/13/2024 11:30 AM EST Appointment [place] [address] 12/13/2024 1:00 PM EST Office Visit [place] [address] Kiet Pardo MD [facility] [place] [address] documented as of this encounter Visit Diagnoses Diagnosis Raynaud's disease without gangrene Scleroderma Systemic sclerosis documented in this encounter Care Teams Air Crew Member Relationship Specialty Start Date End Date Yaritza Pierre MD [address] [place] [address] PCP - General 03/27/12 11/27/18 documented as of this encounter
--- OUTSIDE RECORDS SUMMARY | 2024-09-14 13:10 | XMS_ITS | Encounter Summary ---
[place] [address] Care Team Providers Care Bomb Loader Name Role Phone Yaritza Pierre MD Primary Care Provider [phone] Encounter Details Date Type Department Care Team (Late st Contact Info) Description 05/20/2016 Telephone Nephrology [place] [phone] Wendy Albarado RN Social History Tobacco Use [...] Telephone Encounter - Wendy Albarado RN - 05/20/2016 12:07 PM EDT O. Labs received. Called patient. She is doing better and is having OT after her vascular surgery (artery reconstruction on her left arm). She feels well. She is pleased to hear her kidney function is stable. She is due to be seen in CKD clinic and she requests coordination of her CKD appt on either June 01or June 28 when she returns to see surgeon and derm. Results for AMBER DAWSON ( ) as of 05/20/2016 14:23 Ref. Range 02/25/2016 12:47 05/19/2016 00:00 Sodium Latest Ref Range: 137 - 147 140 140 (External Lab) Potassium Latest Ref Range: 3.4 - 5.3 4.6 4.9 (External Lab) Chloride Latest Ref Range: 99 - 108 103 104 (External Lab) CO2 Latest Ref Range: 22 - 29 23 25 (External Lab) Anion Gap Latest Ref Range: 5 - 15 mmol/L 14 BUN Unknown 26 (H) 26 (EXTERNAL/ABN) Creatinine Unknown 1.37 (H) 1.29 (EXTERNAL/ABN) Estimated GFR Unknown 40 (L) 43 (EXTERNAL/ABN) Glucose Lvl Unknown 90 83 (External Lab) Calcium Latest Ref Range: 8.7 - 10.7 9.0 8.9 (External Lab) Phosphorus Latest Ref Range: 2.5 - 4.9 3.6 (External Lab) Uric Acid Unknown 5.9 (External Lab) A Stable kidney function P. Patient would like her CKD follow up coordinated with one of her other appt at in [place]. She is due to be seen in CKD clinic and she requests coordination of her CKD appt on either June 01 orJune 28 when she returns to see surgeon and derm. documented in this encounter Plan of Treatment Upcoming Encounters Date Type Department Care Team (Late st Contact Info) Description 10/07/2024 11:30 AM EST Office Visit Dermatology at [place] [address] [place] [address] oJ Ordaz MD [facility] [place] [address] 12/13/2024 11:30 AM EST Appointment [place] [phone] 12/13/2024 1:00 PM EST Office [place] [address] Kiet Pardo MD [facility] [place] [address] documented as of this encounter Procedures Procedure Name Priority Date/Time Associated Diagnosis Comments EXTERNAL LAB RESULTS Routine 05/19/2016 documented in this encounter Results * (ABNORMAL) External Lab Results (05/19/2016) Glucose 83(Medical Massage Therapist al Lab) Blood Urea Nitrogen 26(IMMIGRATION CONSULTANT AL/ABN) Creatinine 1.29(EXTE RNAL/ABN) Est Glomerular Filtration Rate 43(IMMIGRATION CONSULTANT AL/ABN) Sodium 140(Exter nal Lab) 137 - 147 Potassium 4.9(Exter nal Lab) 3.4 - 5.3 Chloride 104(Exter nal Lab) 99 - 108 Carbon Dioxide 25(Medical Massage Therapist al Lab) 22 - 29 Calcium 8.9(Exter nal Lab) 8.7 - 10.7 LDL Cholesterol, Direct 137(EXTER NAL/ABN) Cholesterol, Total 195(Exter nal Lab) mg/dL Triglyceride 114(Exter nal Lab) mg/dL HDL Cholesterol 47(Medical Massage Therapist al Lab) md/dL Uric Acid 5.9(Exter nal Lab) Phosphorus 3.6(Exter nal Lab) 2.5 - 4.9 Historical Provider CHEMISTRY ORDERAB LES documented in this encounter Visit Diagnoses Not on filedocumented in this encounter Care Teams Bomb Loader Relationship Specialty Start Date End Date Yaritza Pierre MD [address] [place] [address] PCP - General 03/27/12 11/27/18 documented as of this encounter
--- OUTSIDE RECORDS SUMMARY | 2024-09-14 13:10 | XMS_ITS | Encounter Summary ---
Author Organization [facility] Address [facility] [place] [address] Care Team Providers Care Press Tool Maker Name Role Phone Niesha Gonzalez MD Primary Care Provider [phone] Encounter Details Date Type Department Care Team (Late st Contact Info) Description 03/31/2016 5:00 PM EDT Interpretation Only [facility] Outpatient [address] [place] [phone] River Yung Jr., MD [address] [place] [address] Scleroderma Social History Tobacco Use Types Packs/Day [...] at [facility] [address] [place] [address] Jo Ordaz MD [facility] [place] [address] 12/13/2024 11:30 AM EST Appointment [place] [phone] 12/13/2024 1:00 PM EST Office [place] [address] Kiet Pardo MD [facility] [place] [address] documented as of this encounter Procedures Procedure Name Priority Date/Time Associated Diagnosis Comments ECHOCARDIOGRAM SOUTH/EXTERNAL Routine 03/31/2016 documented in this encounter Results * Echocardiogram South/External (03/31/2016) EF 65% Anatomical Region Laterality Modality Other Narrative 03/31/2016 Echocardiogram Final Report ??Amber Wells ??D.O.B.1960 [facility], [address] [place] [address] PCP: NIESHA GONZALEZ MD Ordering: Yu Mcdonough DO Indication: scleroderma ?? Date of Study: 03/31/2016 Ht: 66 in ?? Wt: 140 lbs ??BSA: 1.72 BP 115/78 Tech: T Philomena ??Rhythm: NSR Procedure: M- Mode, 2D, Doppler, and Color Flow Doppler Quality: ?? good, digital study Measurements ?(N = normal) Ascending Aorta: 3.1 (N <3.2), Aortic Root: 2.8 ??(N<3.7), Aortic Cusp:1.9 (N >1.4) Left Atrium: 16 (N<20), Right Atrium:13(N<17 ) LV Septum:1.1 (N <1.1),LV diastolic: 4.2(N <5.6), LV posterior:1.1(N <1.1),RV: 0.5(N<0.7) Diastolic- E/A :1.1(N > 1.0), DT:207 (N<240), IVRT: 94 (N <100), E': 11 Left Atrium: normal Mitral Valve: normal, ??trivial regurgitation Left Ventricle: normal size EF 65% ?? diastolic function normal Segments: N-normal, PN- probably normal, H-hypokinetic, SH-severely hypo, A-akinetic Anteroseptal: base- N,mid- N, apex- N Anterior: base- N, mid- N, apex- N Anterolateral:base- N, mid- N, apex- N Posterolateral:base- N, mid-N Inferior: base-N,mid-N, apex-N Inferoseptal: ??Base-N,mid-N Aortic Valve: normal trivial regurgitation Aorta: normal Right Atrium: normal Tricuspid Valve: normal ??regurgitation ??gradient 24mmHg + assumed RA ??5 mmHg=PA 29 mmHg Right Ventricle: normal Pulmonic Valve: normal no PI Pericardium: normal, small anterior fat pad comments/summary: ??Normal LV size and function, trivial MR, TR, AI, estimated PA pressure high normal at 29 mm Hg Electronically signed: River Yung Jr, MD FACC ??Date: 03/31/2016 Historical Provider ECHO ORDERABLES documented in this encounter Visit Diagnoses Diagnosis Scleroderma Systemic sclerosis documented in this encounter Care Teams Press Tool Maker Relationship Specialty Start Date End Date Niesha Gonzalez MD [address] [place] [address] PCP - General 03/27/12 11/27/18 documented as of this encounter
--- OUTSIDE RECORDS SUMMARY | 2024-09-14 13:10 | XMS_ITS | Encounter Summary ---
Author Organization [facility] [place] [address] Care Team Providers Care Minilab Operator Name Role Phone Yaritza Pierre MD Primary Care Provider [phone] Encounter Details Date Type Department Care Team (Late st Contact Info) Description 03/23/2016 Telephone General Surgery at [facility] [place] [address] Evelyn Miller, IRRIGATOR [employer] [facility] [place] [address] Social History Tobacco Use Types Packs/Day Years [...] Miscellaneous Notes * Telephone Encounter - Evelyn Miller APRN - 03/23/2016 8:53 AM EDT Contacted Amber regarding her MR enterography that revealed: MRE: 1. ??No mass or inflammatory process is identified. The configuration of the bowel loops and bowel folds is normal. 2. ??Multiple hepatic cysts, the largest measuring 26 mm. 3. ??Incidental pancreas divisum. 4. ??Incidental 5 mm cystic focus in the tail the pancreas, possibly a side branch IPMN. 5. ??Lobular uterus with leiomyomata. Discussed the etiology, pathophysiology, diagnostic tests and treatment of pancreatic divisum and question of IPMN. Also discussed the etiology, pathophysiology and diagnostic tests of uterine fibroids. Recommendations: 1. EUS and order placed 2. TVUS and recommend that she contact Dr Pierre to discuss having this performed locally. 3. GIF with Dr Lucas as previously scheduled since I am no longer working in GI and will not be ableto f/u w/patient. documented in this encounter Plan of Treatment Upcoming Encounters Date Type Department Care Team (Late st Contact Info) Description 10/07/2024 11:30 AM EST Office Visit Dermatology at [place] [address] [place] [address] Jo Ordaz MD [facility] [place] [address] 12/13/2024 11:30 AM EST Appointment [place] [address] 12/13/2024 1:00 PM EST Office [place] [address] Kiet Pardo MD [facility] [place] [address] Scheduled Orders Name Type Priority Associated Diagnoses Orde r Schedule UPPER EUS-ENDOSCOPIC ULTRASOUND Procedures Routine Pancreatic divisum Abnormal CT of the abdomen Gastroesophageal reflux disease, esophagitis presence not specified H/O scleroderma Ordered: 03/23/2016 documented as of this encounter Visit Diagnoses Diagnosis Pancreatic divisum Congenital anomalies of pancreas Abnormal CT of the abdomen Nonspecific (abnormal) findings on radiological and other examination of abdominal area, including retroperitoneum Gastroesophageal reflux disease, esophagitis presence not specified H/O scleroderma Personal history of other musculoskeletal disorders documented in this encounter Care Teams Minilab Operator Relationship Specialty Start Date End Date Yaritza Pierre MD [address] [place] [address] PCP - General 03/27/12 11/27/18 documented as of this encounter
--- OUTSIDE RECORDS SUMMARY | 2024-09-14 13:10 | XMS_ITS | Encounter Summary ---
Author Organization [facility] [place] [address] Care Team Providers Care Vertical Borer Name Role Phone Yaritza Pierre MD Primary Care Provider [phone] Encounter Details Date Type Department Care Team (Late st Contact Info) Description 04/05/2016 Telephone [place] [address] Diann Cain PA [address] [place] [address] [place] [address] Social History Tobacco Use Types Packs/Day Years [...] encounter Miscellaneous Notes * Telephone Encounter - Diann Cain PA - 04/05/2016 8:43 AM EDT I called the patient at his home number this morning to discuss Solesta, which is now available at [facility]. She reports that she is still having leakage every day, and would like to proceed with Solesta. We discussed the procedure, and the possibility that insurance may or may not pay for it. Patient requested that I place the order for Solesta today; she will let me know what her insurance company says re coverage, and we albert lopez with planning thereafter. Diann Cain PA-C Division of Colon & Rectal Surgery [facility] Pager #[phone] documented in this encounter Plan of Treatment Upcoming Encounters Date Type Department Care Team (Late st Contact Info) Description 10/07/2024 11:30 AM EST Office Visit Dermatology at [facility] [address] [place] [address] Jo Ordaz MD [facility] [place] [address] 12/13/2024 11:30 AM EST Appointment [place] [address] 12/13/2024 1:00 PM EST Office [place] [address] Kiet Pardo MD [facility] [place] [address] documented as of this encounter Visit Diagnoses Not on filedocumented in this encounter Care Teams Vertical Borer Relationship Specialty Start Date End Date Yaritza Pierre MD [address] [place] [address] PCP - General 03/27/12 11/27/18 documented as of this encounter
--- OUTSIDE RECORDS SUMMARY | 2024-09-14 13:10 | XMS_ITS | Encounter Summary ---
Author Organization [facility] [place] [address] Care Team Providers Care Quarry Boss Name Role Phone Yaritza Pierre MD Primary Care Provider [phone] Encounter Details Date Type Department Care Team (Late st Contact Info) Description 03/22/2016 4:30 PM EDT Office [place] [address] Yu Mcdonough, [facility] [address] CKD (chronic kidney disease) stage 3, GFR [...] as of this encounter Progress Notes * Yu Mcdonough DO - 03/22/2016 5:17 PM EDT PROBLEM LIST: 1. Diffuse systemic sclerosis. (A) Initially diagnosed [place] [address] Placido Lora at [facility] in [place]. Then followed by Dr. Peyton Hinton in [facility] in [place] in 04/2010. . Echo and PFTs 12/09/11 both normal. (B) Treatment in the past has included intermittent penicillamine and methotrexate, however, she has been off immunosuppressive therapy since approximately 2005. 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 (D) One visit with Dr. Ten Gonzalez in [place], [place] in late 2009. 2. Chronic kidney disease, stage III, with associated anemia. Currently followed by Dr. Sumit Sawyer in nephrology. 3. Raynaud's symptoms. 4. GERD. HPI: The patient returns for follow up of systemic sclerosis. Last seen in September. Her kidney functionis stable. She saw Dr. Marroquin for her Raynaud's and she is scheduled for a left ulnar artery reconstruction later this month. She is nervous about it but we discussed it today and she feels reassured. She wonders about how active her scleroderma is. We discussed that it is difficult to assess activity. Her GERD is controlled. No new breathing issues and no cough. Her bowels are actually better since being off sildenafil. She is awaiting insurance approval for some sort of procedure which is supposed to help with her bowel incontinence. Physical exam: Gen: Patient is awake, alert and oriented x 3, in no distress Skin: warm and dry, tight skin around her mouth with furrowing of the skin, the rest of her face and forehead are involved. I think her abdominal skin is thickened, chest wall is normal, thickened shiny skin from her fingertips up to her mcps, thick skin on the dorsum of her hands up to her mid forearms. There is pitting in all of her fingertips but no open ulcers. Mouth: slightly dry mucous membranes, no oral ulcers Eyes: normal sclerae Joints: + sclerodactyly, flexion contractures of all of her fingers, she can not make a complete fist, no synovitis, all of her other joints are normal. Assessment/Plan: 1. Systemic sclerosis with GERD, Raynaud's, sclerodactyly and a hx of scleroderma renal crisis and now stage [address] Sawyer Her last echo and PFTS were in 2011. Will repeat those although she is not having any new symptoms. For her raynaud's she will continue the norvasc. Once she has has surgery we will see if she can stop that or lower the dose. I am not sure how this surgery will affect her small vessels. For her GERD she will continue nexium which she only needs to take once per day. She had an MR enterography today and we are awaiting those results. Labs done in early February are normal/stable. RTC in 6 months documented in this encounter Plan of Treatment Upcoming Encounters Date Type Department Care Team (Late st Contact Info) Description 10/07/2024 11:30 AM EST Office Visit Dermatology at [facility] [address] [place] [address] Jo Ordaz MD [facility] [address] 12/13/2024 11:30 AM EST Appointment [place] [phone] 12/13/2024 1:00 PM EST Office [place] [address] Kiet Pardo MD [facility] [place] [address] documented as of this encounter Results * Pulmonary Function Testing (03/29/2016 2:19 PM EDT) Narrative Martha Valencia MD - 03/29/2016 2:19 PM EDT Martha Valencia MD ? 03/29/2016 ??2:19 PM PFT interpretation. ?? Spirometry: ?? ( ??) Normal spirometry (x ??) Obstructive ventilatory defect (x ??) mild (FEV1 % pred >70%), ( ??) moderate (60-69), ( ??) moderately severe (50-59) ( ??) severe (35-49), ( ??) very severe (<35) ( ??) Suspected restrictive defect (reduced FVC with normal FEV1/FVC), no obstruction ( ??) concomitant restrictive ventilatory defect may exist ( reduced FVC and FEV1/FVC). ?? Bronchodilator reponse: ( ??)Yes ??( ??)No Lung Volumes: ( ??) No evidence of restrictive ventilatory defect ( Normal TLC ) ( ??) Restrictive ventilatory defect ( TLC <LLN) ( ??) air trapping Diffusing Capacity: ( x ) Normal diffusing capacity ( ??) Reduced diffusing capacity ??( ??) mild , ( ??) moderate (40-60% pred), ( ??) severe Pulse oximetry: Resting ??SpO2 ??In room air. ??( x ) Normal ( ?? ) reduced. ??( <95%) Desaturation during ??ambulation ( ?? ) Yes ( ?? ) No Comment: The findings are consistent with obstructive lung disease, such as COPD or asthma. Clinically correlation is recommended. ?? Martha Valencia MD Pulmonary/Critical Care [facility] Yu Mcdonough DO PFT ORDERABLES documented in this encounter Visit Diagnoses Diagnosis CKD (chronic kidney disease) stage 3, GFR 30-59 ml/min Chronic kidney disease, Stage III (moderate) Scleroderma Systemic sclerosis CKD (chronic kidney disease), stage 3 (moderate) Scleroderma Systemic sclerosis documented in this encounter Care Teams Quarry Boss Relationship Specialty Start Date End Date Yaritza Pierre MD [address] [place] [address] PCP - General 03/27/12 11/27/18 documented as of this encounter
--- OUTSIDE RECORDS SUMMARY | 2024-09-14 13:10 | XMS_ITS | Encounter Summary ---
Author Organization [facility] Address [facility] [place] [address] Care Team Providers Care Fruit Trimmer Name Role Phone Yaritza Pierre MD Primary Care Provider [phone] Reason for Referral * Occupational Therapy (Routine) - Closed Specialty Diagnoses / Procedures Referred By Wander hernandez Referred To Contact Diagnoses Wrist stiffness, left Andre Marroquin MD [facility] [address] [place] [address] Unknown None Referral ID Status Reason Start Date Expiration Date V isits Requested Visits Authorized [id number] Closed Evaluate and Treat 06/01/2016 11/28/2016 12 12 Reason for Visit * Reason Comments Follow Up Surgery left ulnar artery an d vein reconstruction Encounter Details Date Type Department Care Team (Late st Contact Info) Description 06/01/2016 9:00 AM EDT Office Visit Plastic Surgery at [facility] [address] [place] [address] Andre Marroquin MD [facility] [place] [address] Wrist stiffness, left Social History Tobacco Use Types Packs/Day Years [...] Instructions * Patient Instructions* Valentina Nye - 06/01/2016 9:00 AM EDT Plan: 1. Follow up after MRI 2. Ok to continue OT -no restrictions, full passive and AROM, heating applications as indicated. [place]oc[place] water. Fax to [phone]. 3. Continue aspirin 81 mg daily 4. Avoid cold temperatures, maintain stable core temperature 5. MRI for right hand documented in this encounter Progress Notes * Andre Marroquin MD - 06/01/2016 9:00 AM EDT Plastic Surgery Post Op Note Reason for visit: F/U status post procedure Date of surgery: 04/08/16 Procedure(s): Left ulnar artery resection and reconstruction with left cephalic vein Complications: None reported Pain: 0/10 HPI: Pt reports that she recently went to the ED with concerns about her right long finger. She reports that her finger turned black, she was given codeine and now takes codeine and anxiety medication at night. She is using EMLA cream to numb her finger. She reports pain in her thumb with pinching.She is using heat packs. She also inquires about potential surgery for her ears and removing injected material to her lower lip from many years ago. Examination: Patient is alert, conversant, comfortable, ambulating Left forearm incisions: CDI, healing well. Doppler indicates flow in ulnar artery, but less prominent than radial, no ulcer on L fingertips. L wrist ROM limited by scar, but incision well healed. No signs of infection R hand: scab 5mm at ulnar tip of long, pulp warm/pink/senate, shallow ulcer at tip of thumb, no SOI. Radial artery pal, no ulnar artery pal or dopplerable. Impression: [place] is a 56 y.o. female who was seen today for follow- up after the above procedure. Please see the operative note for details. We discussed that she may continue hand therapy without resitriction. We discussed the importance of keeping her core temperature stable and warm,this is more beneficial to her than using extremity heat packs. She has worsening changes of the right long finger, recommend MRI for right hand for planning of ulnar bypass. We discussed surgical intervention vs. botox injections for her right hand. She would like to proceed with intervention to her right hand. We discussed that removing the material from her lower lip is a possibility, but may be difficult, we can discuss this at a later stage. Plan: 1. Follow up after MRI 2. Ok to continue OT -no restrictions, full passive and AROM, heating applications as indicated. [place] water. Fax to [phone]. 3. Continue aspirin 81 mg daily 4. Avoid cold temperatures, maintain stable core temperature 5. MRI for right hand Grid: Surgeon: Lopez Duration: 4 hours 1 night overnight stay Timeframe: elective Procedure: Ulnar artery reconstruction with vein graft CPT: 99675, 05464 Surgical site: arm Side: Right Anesthesia: General Follow up: 7 Days at [facility] PAT: No Microscope I, Valentina Nye, am acting as scribe for Dr Marroquin. All work documented was performed by Dr Marroquin. ???I performed the above scribed service and agree with the accuracy of the note?? Dr. Andre Marroquin. documented in this encounter Plan of Treatment Upcoming Encounters Date Type Department Care Team (Late st Contact Info) Description 10/07/2024 11:30 AM EST Office Visit Dermatology at [address] [address] Jo Ordaz MD [facility] [place] [address] 12/13/2024 11:30 AM EST [place] [address] 12/13/2024 1:00 PM EST [place] [address] Kiet Pardo MD [facility] [place] [address] Scheduled Referrals Name Type Priority Associated Diagnoses Order Schedule Referral to Occupational Therapy Outpatient Referral Routine Wrist stiffness, left Ordered: 06/01/2016 documented as of this encounter Visit Diagnoses Diagnosis Wrist stiffness, left documented in this encounter Care Teams Fruit Trimmer Relationship Specialty Start Date End Date Yaritza Pierre MD [address] [place] [id number] PCP - General 03/27/12 11/27/18 documented as of this encounter
--- OUTSIDE RECORDS SUMMARY | 2024-09-14 13:10 | XMS_ITS | Encounter Summary ---
Author Organization [facility] Address [facility] [place] [address] Care Team Providers Care Rim Fire Priming Operator Name Role Phone Yaritza Pierre MD Primary Care Provider [phone] Reason for Visit * Reason Comments Skin Check Encounter Details Date Type Department Care Team (Late st Contact Info) Description 04/20/2016 8:30 AM EDT Office Visit Dermatology at [address] [address] Jo Ordaz MD [facility] [place] [address] Neoplasm of uncertain behavior of skin; AK (actinic keratosis); Scleroderma; Scar Social History Tobacco Use Types Packs/Day Years [...] Instructions * Patient Instructions* Ashley Payne - 04/20/2016 8:53 AM EDT Treatment and Wound Care Instructions Your treatment today: You have had a shave biopsy of your skin, which is a removal of tissue for examination under a microscope. This wound will heal without stitches. Allow 3-6 weeks for the wound to heal. If bleeding occurs, hold firm pressure against [...] following wound care daily: ?? Wash your hands before changing the [...] yellow drainage is part of normal healing. The area might appear as a small depression with redness around the edge of the wound. This is normal. ?? Please contact the office you you notice any of the following signs of infection: increased tenderness, pain, drainage, or redness that becomes hot or hard around the wound. If you have further questions or concerns, please call the office at [phone]. If it is after 5PM, or a holiday or weekend, please call [phone] and ask for the Driver Guide on-call. Actinic Keratoses You have been diagnosed [...] weeks. Please contact the Dermatology clinic at [phone] if the lesion has not fully resolved after 6 weeks. If you are calling after hours, please call the mainline at [phone] and ask for the barn worker direct support professional. Caring for Your Skin Sun Protection Exposure [...] these brands: Neutrogena, Blue Lizard, [place] Baby, Jackie Freedman MD. ?? Wear protective clothing. Long-sleeved shirts, pants, [...] dirty areas. Avoid harsh soaps such as Vietnamese Spring, Ivory, or Dial as these can be drying. ?? Immediately after bathing, apply a bland, preferably fragrance-free moisturizer to your skin. Ointments work better than creams, which work better than lotions. Look for the following brands: Vaseline 100% petroleum jelly, Vanicream, Neutrogena, CeraVe, Cetaphil, Aveeno, Lubriderm, or Eucerin. ?? For itchy areas, you can apply hydrocortisone 1% cream (widh-opb-qwfkmuy product) for 1-2 weeks.Do not use this [...] Progress Notes * Jo Ordaz MD - 04/20/2016 8:17 AM EDT Images from the original note were not included. DERMATOLOGY ESTABLISHED PATIENT CLINIC NOTE Date of service: 04/20/2016 [place] : 1960 Provider: Jo Ordaz MD Chief Complaint Patient presents with ??? Skin Check SKIN HISTORY: ?? Sister history of melanoma -Scleroderma -Lentigines -Benign Nevi -actinic keratosis - [...] margin (See Comment) BOBBY [place] is a 55 y.o. year old female, established patient last seen by me on 04/14/15. Here today for a full skin examination. She reports she had reconstruction of the ulnar artery to her left forearm [address] Andre Marroquin. She denies any other significant changes in her health since her last visit. She reports a brown macule on her left thigh, noticed one year though she is unsure if this is a new lesion or existing, she believes it has grown in size in the past 2 weeks. Asymptomatic. She reports a rough spot on her left upper forehead, treated with LN2 in the past by Dr. Wilder in 2012. MEDS: Current Outpatient Prescriptions Medication Sig Dispense Refill ??? acetaminophen (TYLENOL) 500 mg Tablet Take [...] by mouth daily. 90 tablet 3 ??? loperamide (IMMODIUM) 2 mg Capsule Take 2 mg by mouth 4 times daily as needed for Diarrhea. ??? vitamin E 400 unit Capsule Take 400 Units by mouth daily. ??? lidocaine-prilocaine (EMLA) cream Apply topically as needed. 30 g 2 ??? Cholecalciferol, Vitamin D3, (VITAMIN D) 1,000 unit Cap Take 1 tablet by mouth daily. ??? Acetaminophen 650 mg Tab Take 650 [...] underwear were not examined per patient request. Significant skin findings: A. Left anterior thigh: 0.5 cm brown papule Verbal consent was given today to obtain and chart today's photos. Photos taken by Ashley Payne Clinical Scribe. B. Left forehead at hairline: 0.2-0.3cm scaly irregular pink papule Total: 1 C. 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 Well-healed hypopigmented scars at sites above, back-no signs of recurrence ASSESSMENT/PLAN: A. Nevus vs. seborrheic keratosis r/o atypia Procedure: Skin biopsy by shave technique Location: left anterior thigh Discussed indications for procedure and expectations including risks and benefits. Verbal consent obtained. Skin prep with alcohol. Local anesthesia with 1% xylocaine, 1/100,000 epinephrine, 0.1 mEq/mL bicarbonate. A sample of the lesion was removed by shave technique to the level of the dermis andsubmitted to Pathology. Hemostasis obtained (AlCl and/or electrocautery). There were no complications; the pt. tolerated the procedure well. The wound was dressed. Post-procedure expectations, wound care and activity restrictions were reviewed. Follow-up based on pathology results. B. Actinic Keratosis Discussed premalignant potential of lesions with patient and counseled that destruction with liquidnitrogen therapy is recommended. Patient agreed to the procedure after discussing risks/benefits/alternatives of the procedure, including hypopigmentation and discomfort. Wound care reviewed. Procedure Note: Procedure: Destruction of lesion with cryotherapy. Number: 1 Location: as above Discussed procedure and expectations including risks (including risk of hypopigmentation) and benefits. Verbal consent obtained. Frozen with LN2, 15-30 second thaw time, TWICE. There were no complications; the patient tolerated the procedure well. Post-procedure expectations and wound care were reviewed. C. Scleroderma - systemic disease managed by rheumatology D. Scar H/o Desmoid fibromatosis-NER - The nature of sun-induced photo-aging and skin cancers is discussed. Sun avoidance, protective clothing, and the use of 30-SPF sunscreens is advised. Observe closely for skin damage/changes, and call if such occurs. Follow up: Return to clinic in 6 months for full skin exam, or sooner if needed. Patient will call to schedule. Patient instructed to call with questions or concerns. I am documenting this encounter acting as the scribe for and in the presence of Dr. Ordaz: Ashley Payne, Clinical Scribe I performed the above scribed service and agree with the accuracy of the documentation in this encounter. Jo Ordaz MD [employer] Apprentice of Dermatology, Department of Bread BakerMillwright Apprenticereturned goods receiving clerk (Dermatopathology) [facility] documented in this encounter Plan of Treatment Upcoming Encounters Date Type Department Care Team (Late st Contact Info) Description 10/07/2024 11:30 AM EST Office Visit Dermatology at [facility] [address] [place] [address] Jo Ordaz MD [facility] [place] [address] 12/13/2024 11:30 AM EST [place] [phone] 12/13/2024 1:00 PM EST [place] [address] Kiet Pardo MD [facility] [address] [place] [id number] documented as of this encounter Procedures Procedure Name Priority Date/Time Associated Diagnosis Comments SPECIMEN TO PATHOLOGY (NON-OR) Routine 04/20/2016 9:31 AM EDT Neoplasm of uncertain behavior of skin SURGICAL PATHOLOGY REPORT Routine 04/20/2016 9:31 AM EDT documented in this encounter Results * Surgical Pathology Report (04/20/2016 9:31 AM EDT) Final Diagnosis [id number] ?Location: [facility] The signing pathologist has (i) examined the relevant preparation(s) for the specimen(s) and (ii) rendered or confirmed the diagnosis(es). . ?Surgical Pathology DIAGNOSIS Skin, left anterior thigh, shave biopsy: Seborrheic keratosis. 04/21/16 DLD 04/22/16 Verified by: ? Roxie Wagner MD ?Dermatopathol ogist ?(Electronic Signature) The attending pathologist whose signature appears on this report has reviewed all diagnostic slides and has edited the gross and/or microscopic portion of the report in rendering the final pathologic diagnosis. CLINICAL INFORMATION Specimen Submitted: A - Skin, Left anterior thigh, Shave biopsy (1) Clinical History: 0.5 cm brown papule Clinical Diagnosis: Nevus ??vs. seborrheic keratosis, rule out atypia SPECIMEN PROCESSING A - Labeled/Fixativ e: Left anterior thigh, formalin. Quantity/Size: Single, 1.0 x 0.6 x 0.1 cm. Tissue Description: Shave of claire skin with a 0.5 cm brown papule. Sections/Proces sing: Inked and quadrisected. (T1) ??sns 04/22/2016 3:39 PM EDT [facility] SPECIMEN FROM SKIN / Unknown 04/20/2016 9:31 AM EDT 04/20/2016 9:31 AM EDT Jo Ordaz MD PATHOLOGY/CYTOLOGY ORDERABLES Performing Organization Address City/[facility] Co de Phone Number [facility] [place] [address] * Specimen to Pathology (NON-OR) (04/20/2016 9:31 AM EDT) AP Specimen 04/20/2016 9:31 AM EDT 04/20/2016 12:40 PM EDT Narrative [facility] - 04/20/2016 12:40 PM EDT Specimen requisition ordered. ??Separate Pathology report to follow Resulting Agency Comment Spec In Lab Jo Ordaz MD PATHOLOGY/CYTOLOGY ORDERABLES Performing Organization Address City/[facility]/[place]IP [place] [address] documented in this encounter Visit Diagnoses Diagnosis Neoplasm of uncertain behavior of skin AK (actinic keratosis) Actinic keratosis Scleroderma Systemic sclerosis Scar Scar condition and fibrosis of skin documented in this encounter Care Teams Rim Fire Priming Operator Relationship Specialty Start Date End Date Yaritza Pierre MD [address] [place] [address] PCP - General 03/27/12 11/27/18 documented as of this encounter
--- OUTSIDE RECORDS SUMMARY | 2024-09-14 13:10 | XMS_ITS | Encounter Summary ---
Author Organization [facility] [address] [id number] Care Team Providers Care Rfid Systems Engineer Name Role Phone Yaritza Pierre MD Primary Care Provider [phone] Encounter Details Date Type Department Care Team (Late st Contact Info) Description 04/06/2016 Notes Only Pharmacy at [facility] [place] [address] Ben Martínez, [facility] [place] [address] Social History Tobacco Use Types Packs/Day Years [...] as of this encounter Progress Notes * Hailee Ash - 04/06/2016 4:10 PM EDT Prior authorization for Solesta sent to [employer] insurance. Await response. Cardholder ID [id number]. documented in this encounter Plan of Treatment Upcoming Encounters Date Type Department Care Team (Late st Contact Info) Description 10/07/2024 11:30 AM EST Office Visit Dermatology at [facility] [address] [place] [address] Jo Ordaz MD [facility] [place] [address] 12/13/2024 11:30 AM EST Appointment [place] [phone] 12/13/2024 1:00 PM EST Office [place] [address] Kiet Pardo MD [facility] [place] [address] documented as of this encounter Visit Diagnoses Not on filedocumented in this encounter Care Teams Rfid Systems Engineer Relationship Specialty Start Date End Date Yaritza Pierre MD [address] [place] [address] PCP - General 03/27/12 11/27/18 documented as of this encounter
--- OUTSIDE RECORDS SUMMARY | 2024-09-14 13:10 | XMS_ITS | Encounter Summary ---
[place] [address] Care Team Providers Care Pulping Machine Operator Name Role Phone Yaritza Pierre MD Primary Care Provider [phone] Reason for Visit * Auth/Cert Specialty Diagnoses / Procedures Referred By Wander hernandez Referred To Contact Diagnoses Left ulnar artery recon Procedures PRO APPLY FOREARM SPLINT, STATIC PRO REBL VES VEIN GRFT, UP EXTREM SPLINT APPLICATION, SHORT ARM Referral ID Status Reason Start Date Expiration Date Visits Re quested Visits Authorized [id number] 1 1 Encounter Details Date Type Department Care Team (Late st Contact Info) Description 04/08/2016 11:26 AM EDT - 04/08/2016 3:54 PM EDT Surgery [place] [address] Andre Marroquin MD [facility] [place] [address] SPLINT APPLICATION, SHORT ARM (WRVU 0.5) Social History Tobacco Use Types Packs/Day Years [...] Sign Reading Time Taken Comments Blood Pressure 126/79 04/08/2016 11:41 AM EDT Pulse 88 04/08/2016 11:41 AM EDT Temperature 36.8 ??C (98.2 ??F) 04/08/2016 10:04 AM E DT Respiratory Rate 16 04/08/2016 11:41 AM EDT Oxygen Saturation 99% 04/08/2016 11:41 AM EDT Inhaled Oxygen Concentration - - [...] Scleroderma 1990 Diffuse scleroderma. Past Surgical History Past Surgical [...] ULTRASOUND performed by Darryl Ash MD at [facility] ENDOSCOPY ??? Pro upper gi endoscopy, biopsy N/A 03/29/2016 UPPER GASTROINTESTINAL ENDOSCOPY,WITH BIOPSY SINGLE OR MULTIPLE performed by Darryl Ash MD at [facility] ENDOSCOPY Procedures: 04/08/2016 Surgeon(s) and Role: * Andre Marroquin MD - Primary * Marty Roa MD: Procedure(s): SPLINT APPLICATION, SHORT ARM REPAIR BLOOD VESSEL WITH VEIN GRAFT, UPPER EXTREMITY Hospital Course: The patient tolerated the above procedure well and was admitted post-operatively for observation and for routine post-operative care. Did well overnight with moderate pain o/n. Switched from PO oxycodone to PO dilaudid. [place] that splint was quite tight, loosened and [...] called in to our prescription line at [phone]. Narcotic renewals may be requested from 8am-4pm [...] Monday 8 am to 5 pm Call [phone] On weekends or after hours: Call [phone] and ask the serging machine operator automatic to page the Plastic Surgery Resident on line csr. Follow-up plan: Future Appointments and Orders Future Appointments Provider Department Dept Phone 04/20/2016 7:15 AM Andre Marroquin MD Plastic Surgery at [facility] [phone] 04/20/2016 8:30 AM Jo Ordaz MD Dermatology at [facility] [phone] 06/28/2016 9:30 AM Sumit Lucas MD Gastroenterology [phone] VNA: No discharge procedures on file. General [...] called in to our prescription line at [phone]. Narcotic renewals may be requested from 8am-4pm [...] Monday 8 am to 5 pm Call [phone] On weekends or after hours: Call [phone] and ask the serging machine operator automatic to page the Plastic Surgery Resident on line csr. documented in this encounter Medications at Time [...] 03/22/2016 04/28/2017 fosinopril (MONOPRIL) 40 mg TabletIndications:Jaimie davila,CKD (chronic kidney disease) stage [...] documented in this encounter H&P Notes * Zelones, Marty T, MD - 04/08/2016 11:02 AM EDT 24 [...] Outcome: Ongoing (Interventions Implemented as Appropriate) 04/08/16 19404/08/16 2100 04/08/162199 Musculoskeletal Interventions Activity/Level of Assistance [...] Interventions Safety Precautions/Fall Reduction -- -- -- 04/08/16235404/09/16 02004/09/16 023 Musculoskeletal Interventions Activity/Level of Assistance up in [...] Ongoing (Interventions Implemented as Appropriate) 04/08/16175604/08/16 22004/09/16 020 Coping/Psychosocial Response Interventions Counseling -- emotional support provided;goal setting facilitated;personal strengths integrated;reassurance provided -- Safety Interventions Isolation Precautions -- -- standard precautions maintained Infection Prevention bronchial hygiene promoted;environmental surveillance;hydration promoted;nutrition promoted;promote handwashing;rest/sleep promoted -- -- Goal: Discharge Needs Assessment Outcome: Ongoing (Interventions Implemented as Appropriate) 04/09/16237 Discharge Needs Assessment Concerns to be Addressed [...] Operative Note Patient Name: Amber Wells : [id number] MR#: [id number] Case Date: 04/08/2016 Surgeon: Surgeon(s) and Role: [...] Operative Note Patient Name: Amber Wells : [id number] MR#: [id number] Case Date: 04/08/2016 Surgeon: Surgeon(s) and Role: [...] 11:30 AM EST Office Visit Dermatology at [address] [address] Jo Ordaz MD [facility] [place] [address] 12/13/2024 11:30 AM EST Appointment [place] [address] 12/13/2024 1:00 PM EST Office [place] [address] Kiet Pardo MD [facility] [place] [address] documented as of this encounter Procedures Procedure Name Priority Date/Time Associated Diagnosis Comments FUR VAULT ATTENDANT SCAN 04/11/2016 12:00 AM EDT SURGICAL PATHOLOGY REPORT Routine 04/08/2016 1:00 PM EDT SPECIMEN TO PATHOLOGY Routine 04/08/2016 1:00 PM EDT REPAIR BLOOD VESSEL WITH VEIN GRAFT, UPPER EXTREMITY (WRVU 18.02) 04/08/2016 11:48 AM EDT Left ulnar artery recon SPLINT APPLICATION, SHORT ARM (WRVU 0.5) 04/08/2016 11:48 AM EDT Left ulnar artery recon documented in this encounter Results * SCAN DOC: FUR VAULT ATTENDANT (04/11/2016 12:00 AM EDT) Anatomical Region Laterality Modality Other Scanning Provider MEDIA MGR SCAN EXT O RDR/RSLT * Surgical Pathology Report (04/08/2016 1:00 PM EDT) Final Diagnosis [id number] ? Location: [facility]; [facility]; The signing pathologist has (i) examined the [...] segment of blood vessel. Sections/Processi ng: Multiple community relations representative cross-sections are submitted. (R1) ??pps 04/15/2016 9:30 AM EDT [facility] BIOPSY SPECIMEN / Unknown 04/08/2016 1:00 PM EDT 04/08/2016 1:00 PM EDT Andre Marroquin MD PATHOLOGY/CYTOLOGY ORDERABLES Performing Organization Address City/[facility]/[place] [address] * Specimen to Pathology (surgical or derm) (04/08/2016 1:00 PM EDT) AP Specimen 04/08/2016 1:00 PM EDT 04/08/2016 1:00 PM EDT Narrative [facility] - 04/08/2016 1:00 PM EDT Specimen requisition ordered. ??Separate Pathology report to follow Andre Marroquin MD PATHOLOGY/CYTOLOGY ORDERABLES Performing Organization Address City/[facility]/[place] [address] documented in this encounter Visit Diagnoses Not on filedocumented in this encounter Admitting Diagnoses Diagnosis Raynaud [...] Given 04/09/2016 8:55 AM EDT 81 mg aspirin suppository ONCE PRN, Starting on Mon04/08/16 at 1545, Until Mon04/09/16 at 1924, Intra-Operative (Intra-Procedure), Routine Given 04/08/2016 3:45 PM EDT 325 mg docusate sodium (COLACE) capsule 100 mg [...] Given 04/08/2016 6:39 PM EDT 40 mg papaverine injection Administer over 2 Minutes, ONCE PRN, Starting on Mon04/08/16 at 1415, Until 04/09/16 at 1924, Intra-Operative (Intra-Procedure), Routine Given 04/08/2016 2:15 PM EDT 20 mg 19- Surgical Site sodium chloride 0.9 % flush 5 mL [...] on Mon04/08/16 at 1900, Until Discontinued, Routine 183 (Given - Provider: Paz Coronado RN) 0856 [...] on Mon04/08/16 at 2145, Until Discontinued, Routine 4 (Given - Provider: Mary Alvarez RN) 0855 (Given - Provider: Corinna Davidson RN) lactobacillus (BACID) tablet 1 tablet 1 tablet, Oral, DAILY, First dose on Mon04/08/16 at 1900, Until Discontinued, Routine 183 (Given - Provider: Paz Coronado RN) 0900 (Given - Provider: Corinna Davidson RN) lisinopril (PRINIVIL;ZESTRIL) tablet 40 mg 40 mg, Oral, DAILY, First dose on Mon04/08/16 at 1900, Until Discontinued, Therapeutically interchanged for patient's home fosinopril while admitted., Routine 183 (Given - Provider: Paz Coronado RN) 0859 (Not Given - Provider: Corinna Davidson RN - Reason: Patient/family refused) pantoprazole (PROTONIX) tablet 40 mg 40 mg, Oral, DAILY, First dose on Mon04/08/16 at 1830, Until Discontinued, DO NOT CRUSH OR OPEN Therapeutically interchanged for patient's home esomeprazole while admitted. 1839 (Given - Provider: Paz Coronado, RN) 0855 (Given - Provider: Corinna Davidson, [place]) sodium chloride 0.9 % flush 5 mL 5 mL, Intravenous, 2 TIMES DAILY, First dose on Mon04/08/16 at 2100, Until Discontinued, Recovery (Recovery-Hospital Unit), Routine 2114 (Given - Provider: Mary Alvarez, [place]) 0902 (Given - Provider: Corinna Davidson, [place]) [...] RN) 0124 (New Bag - Provider: Mary Alvarez, [place])0500 (Stopped - Provider: Mary Alvarez RN) PRN Medication Order 04/07/2016 04/08/2016 04/09/2016 acetaminophen (TYLENOL) tablet 1,000 mg 1,000 mg, Oral, EVERY 8 HOURS PRN, Starting on Mon04/08/16 at 1858, Until 04/09/16 at 1924, Pain, Maximum dose of acetaminophen is 4000 mg from all sources in 24 hours., Routine 0043 (Given - Provid er: Mary Alvarez RN)0903 (Given - Provider: Corinna Davidson RN) aspirin suppository (CANCELED) ONCE PRN, Starting on 04/08/16 at 1545, Until 04/09/16 at 1924, Intra-Operative [...] Routine 1011 (Given - Provid er: Corinna Davidson, RN)1419 (Given - Provider: Corinna Davidson, [place]) lidocaine (XYLOCAINE) 10 mg/mL (1 %) injection 3 mg 3 mg (0.3 mL), Subcutaneous, ONCE PRN, 1 dose, Starting on Mon04/08/16 at 1000, Until 04/08/16 at 1616, for discomfort with PIV insertion, [...] minutes if ineffective., Recovery (Recovery-Hospital Unit), Routine 1950 (See Alternative - Provider: Paz Coronado RN) 1110 (See Alternative - Provider: Corinna Davidson, [place]) oxyCODONE (ROXICODONE) immediate release tablet 10 mg (CANCELED) 10 mg, Oral, EVERY 4 HOURS PRN, Starting on 04/08/16 at 1616, Until 04/09/16 at 0921, Pain, [...] Oral, EVERY 8 HOURS PRN, Starting on 04/08/16 at 1756, Until 04/09/16 at 1924, Nausea, Vomiting, If multiple antiemetics are ordered, use ondansetron first. PO Preferred. If patient unable to take PO, may give IV if ordered. May repeat times one in 45 minutes if ineffective., Recovery (Recovery-Hospital Unit), Routine Or ondansetron (ZOFRAN) injection 4 mgJump to med 4 mg, Intravenous, EVERY 8 HOURS PRN, Starting on 04/08/16 at 1756, Until 04/09/16 at 1924, Nausea, May repeat times one in 30 minutes if ineffective. If multiple antiemetics are ordered, use ondanstron first, Recovery (Recovery- Hospital Unit) documented in this encounter Care Teams Pulping Machine Operator Relationship Specialty Start Date End Date Yaritza Pierre MD [address] [place] [address] PCP - General 03/27/12 11/27/18 documented as of this encounter
--- OUTSIDE RECORDS SUMMARY | 2024-09-14 13:10 | XMS_ITS | Encounter Summary ---
Author Organization Formerly [facility] Address [facility] [place] [address] Care Team Providers Care Librarian Special Library Name Role Phone Yaritza Pierre MD Primary Care Provider [phone] Reason for Visit * Reason Comments Chronic Kidney Disease Encounter Details Date Type Department Care Team (Latest Contact Info) Description 08/04/2016 1:00 PM EDT Office Visit [place] [address] Sumit Sawyer MD [facility] [place] [address] A, Nurse Clinician None CKD (chronic kidney disease) stage 4, GFR 15-29 ml/min; Scleroderma; CKD (chronic kidney disease) stage 3, [...] Sign Reading Time Taken Comments Blood Pressure 108/52 08/04/2016 12:43 PM EDT Pulse 72 08/04/2016 12:43 PM EDT Temperature - - Respiratory Rate - - Oxygen Saturation - - Inhaled Oxygen Concentration - - Weight 62.4 kg (137 lb 9.6 oz) 08/04/2016 12:43 PM EDT Height 170.2 cm (5' 7) 08/04/2016 12:43 PM EDT Body Mass Index 21.55 08/04/2016 12:43 PM EDT documented in this encounter Patient Instructions * Patient Instructions* Wendy Albarado RN - 08/04/2016 1:00 PM EDT While you are taking the advil after surgery for pain we should monitor your kidney function once amonth. The night time urination is probably due to the scarred kidneys being unable to concentrate the urine at night. You can cut the fosinopril to 20mg daily. Perhaps this will help relieve the lightheaded feeling you have in the AM. It might also reduce the potassium level. Please take your blood pressure daily and call in 2 weeks and let us know how the blood pressures are. documented in this encounter Progress Notes * Sumit Sawyer MD - 08/04/2016 1:00 PM EDT [facility] [address] [place] [address] ?? Reason for Clinic Visit: Systems Review and CKD management. Seen in clinic with: Pallavi Albarado RN, Continuing Power Digger Operator (CCM) CKD related to: scleraderma crisis ?? History of Present Illness: Patient had surgery to improve blood flow to left hand/seems to be working well. Overall has been doing well. Some low blood pressures and dizziness. . History obtained by RN Specialist: She was last seen May 2015 in CKD clinic. Since then she has had surgery to explore ulnar artery with vein graft on the left hand. Surgery planned in the right hand in September 2016to improve the blood flow. She did not tolerate the narcotics given to her (bad dreams). She was taking tylenol with 3 advil for several weeks. ?? 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 Last dialysis was in June 2010 at [facility] (dialyzed for 2 months). Education: 3-4 gram sodium diet discusssed, low potassium diet discussed Anticipated Renal Replacement Therapy Plan: Was on HD through tunnelled catheter from April 27 to July 14, 2010 at [facility] for the last 3 weeks of dialysis. Transplant Evaluation: will trend Creatinine levels to determine if this is necessary ?? Review of Systems: Sign/Symptom Comments Activity level/fatigue: Yes energy is good, stiff in the AM slow to get up and get moving but then better. Pain in the back is new. Burning pain that happened recently ( and almost called 911 it was so bad) (10/10 on pain scale). WHen she moved it hurt more. No problem breathing. Pain hasn't gone totally away 4/10 now. Change in sleep patterns: No problem Nocturia: 2-3x to urinate (this is new) Appetite changes: great she is trying to eat healthier and has reduced her cholesterol. Food aversions: No Nausea: None Vomiting: None Bowels: Bowel issues have improved with the addition of imodium for her bowels. Edema: None Shortness of breath: None; Orthopnea/PND: No PND; 1 pillow Muscle Cramping: No Cold intolerance: No Itching: No Bruising/bleeding: None; Mental Status Changes: Memory is worse Recent Home Blood Pressure Control: Low BP 110/70 Higher at night 135/85 Recent Lipid Management: None Additional CCM Comments: How's your health been in the last 4 weeks : Poor Fair Good Very Good Excellent ?? She has dual citizenship in [place] and [place] She is seeing methods and procedures analyst at [facility] for the scleroderma management. She is seeing GI for the bowel issues She is having trouble with some ADL's secondary to hand stiffness from scleraderma ?? Hepatitis B Status: Serum Testing Date of Testing Results Hep B sAb/Hep B sAg not tested Vaccination Status: Unknown Fistula Date/Type of Initial Access/Surgeon: Had tunnelled dialysis catheter removed at [facility] in June 2010. No plans for fistula at this time. Kidney function has been stable and slowly improving Advanced Directives: On file in eDH. PMH: [...] Fecal incontinence R15.9 ??? Raynaud phenomenon I73.00 No Known Allergies Outpatient Prescriptions Marked as Taking for the 08/04/16 encounter (Office Visit) with Sumit Sawyer MD Medication Sig Dispense Refill ??? sildenafil (REVATIO) 20 mg Tablet ??? [DISCONTINUED] LORazepam (ATIVAN) 0.5 mg Tablet Take 1 tablet by mouth every 8 hours as needed for Anxiety. 30 tablet 0 ??? aspirin 81 mg Tablet, Chewable Take [...] skin every 6 hours. Physical Exam: BP 108/52 Pulse 72 Ht 170.2 cm (5' 7) Wt 62.4 kg (137 lb 9.6 oz) LMP 11/27/2014 BMI 21.55 kg/m2 If exam WNL X Abnormal findings General appearance nad Head Changes c/w scleroderma of face Eyes ENT Neck No jvd Respiratory clear COR/Vascular rrr Abdomen nl Skin Scleroderma changes diffusely Neuro intact Asterixis Extremities No edema Other Labs Results for AMBER DAWSON ( ) as of 08/04/2016 12:54 Ref. Range 02/25/2016 12:47 05/19/2016 00:00 08/04/2016 10:52 08/04/2016 11:01 WBC Latest Ref Range: 4.0 - 9.5 x10(3)/mcL 8.3 7.5 RBC Latest Ref Range: 4.00 - 5.21 x10(6)/mcL 4.36 4.29 Hemoglobin Latest Ref Range: 11.7 - 15.5 gm/dL 13.8 13.6 Hematocrit Latest Ref Range: 35.7 - 45.8 % 41.6 42.3 MCV Latest Ref Range: 82.6 - 94.4 fL 95.4 (H) 98.6 (H) MCH Latest Ref Range: 27.1 - 32.0 pg 31.7 31.7 MCHC Latest Ref Range: 31.7 - 35.0 gm/dL 33.2 32.2 RDWSD Latest Ref Range: 37.0 - 46.0 fL 46.8 (H) 45.1 RDWCV Latest Ref Range: 11.5 - 14.1 % 13.4 12.4 Platelets Latest Ref Range: 145 - 357 x10(3)/mcL 300 319 MPV Latest Ref Range: 7.6 - 12.9 fL 10.8 10.6 nRBC % Auto Latest Units: % 0.0 nRBC Abs Auto Latest Ref Range: 0.000 - 0.000 x10(3)/mcL 0.000 Neutr Abs (ANC) Latest Ref Range: 1.70 - 6.10 x10(3)/mcL 5.52 4.83 Neutrophils % Latest Units: % 66.4 64.4 Immature Gran % Latest Units: % 0.20 0.30 Lymphocytes % Latest Units: % 22.9 23.6 Monocytes % Latest Units: % 7.6 6.5 Eosinophils % Latest Units: % 2.3 4.3 Basophils % Latest Units: % 0.6 0.9 Yessica Gran Abs Latest Ref Range: 0.00 - 0.04 x10(3)/mcL 0.02 0.02 Lymphocytes Abs Latest Ref Range: 0.9 - 3.2 x10(3)/mcL 1.9 1.8 Monocyte Abs Latest Ref Range: 0.3 - 0.9 x10(3)/mcL 0.6 0.5 Eosinophils Abs Latest Ref Range: 0.0 - 0.4 x10(3)/mcL 0.2 0.3 Basophils Abs Latest Ref Range: 0.0 - 0.1 x10(3)/mcL 0.0 0.1 Sodium Latest Ref Range: 135 - 145 mmol/L 140 140 (External Lab) 138 Potassium Latest Ref Range: 3.5 - 5.0 mmol/L 4.6 4.9 (External Lab) 5.3 (H) Chloride Latest Ref Range: 98 - 107 mmol/L 103 104 (External Lab) 100 CO2 Latest Ref Range: 22 - 31 mmol/L 23 25 (External Lab) 24 Anion Gap Latest Ref Range: 5 - 15 mmol/L 14 14 BUN Latest Ref Range: 8 - 18 mg/dL 26 (H) 26 (EXTERNAL/ABN) 27 (H) Creatinine Latest Ref Range: 0.70 - 1.20 mg/dL 1.37 (H) 1.29 (EXTERNAL/ABN) 1.27 (H) Estimated GFR Latest Ref Range: >=60 40 (L) 43 (EXTERNAL/ABN) 44 (L) Glucose Lvl Latest Ref Range: 65 - 199 mg/dL 90 83 (External Lab) 95 Calcium Latest Ref Range: 8.5 - 10.5 mg/dL 9.0 8.9 (External Lab) 9.4 Phosphorus Latest Ref Range: 2.5 - 4.5 mg/dL 3.6 (External Lab) 3.0 Uric Acid Unknown 5.9 (External Lab) Total Protein Latest Ref Range: 6.1 - 8.0 gm/dL 7.0 Albumin Latest Ref Range: 3.2 - 5.2 gm/dL 4.5 4.5 Total Bilirubin Latest Ref Range: 0.2 - 1.3 mg/dL 0.3 Bili, Direct Latest Ref Range: 0.0 - 0.3 mg/dL 0.1 Alk Phos Latest Ref Range: 40 - 104 unit/L 67 AST Latest Ref Range: 0 - 30 unit/L 15 ALT Latest Ref Range: 0 - 30 unit/L 10 U Protein Ran Latest Ref Range: 0 - 12 mg/dL 8 Chol, Total Latest Units: mg/dL 195 (External Lab) Triglycerides Latest Units: mg/dL 114 (External Lab) HDL Latest Units: md/dL 47 (External Lab) LDL Chol Direct Unknown 137 (EXTERNAL/ABN) TSH Latest Ref Range: 0.27 - 4.20 mcIU/mL 1.27 PTH Latest Ref Range: 15 - 65 pg/mL 101 (H) Prot/Cre Ratio Latest Units: ratio 0.3 U Creatinine Latest Units: mg/dL 30 Problem/Goal/Assessment/Plan: Problem: Chronic Kidney Disease Goal: Reduce rate of progression Education for CKD Stage specific issues Results: Estimated GFR (MDRD): 44 ml/min/1.73m2 CKD Stage G3b - Changes discussed with RN Specialist: Stable kidney function. Progressive changes to connective tissues in upper extremities. A/P: Stable CKD Problem: Management of Anemia related to Chronic Kidney Disease (CKD) Goal: Hgb 9.5-10.9 g/dl Today's Results Hgb - 13.6 Receiving erythropoetic stimulating agent? No Last IV Iron replacement therapy (Venofer), Date : NOne Changes discussed with RN Specialist: None A/P: No RONAK needed Problem: Hypertension Goal: Urine alb:cr ratio <30mg/g - 140/90, Urine alb:cr ratio > 30mg/g - 130/80 Sodium intake < 2 Gm per day. Results: BP today - 108/52 Changes discussed with RN Specialist: Decrease the fosinopril to 20mg and monitor the home blood pressures. Call with BP readings in about 2 weeks. A/P: ok Problem: Proteinuria Goal: Pro:Cr ratio <0.2mg/mg Today's results: Pro:Cr ratio 0.3 Changes discussed with RN Specialist: Jonna is taking fosinopril 40mg daily. She will decrease this to 20 mg daily and monitor home BP's A/P: stable Problem: Bone Disease Goal: Stage 3 PTH: 35-70 pg/ml Phos 2.7-4.6 Ca 8.5-10.5mg/dl Stage 4 PTH: 70-110 pg/ml Phos 2.7-4.6 Ca 8.5-10.5mg/dl Stage 5 PTH: 150-300 pg/ml Phos 3.5-5.5 Ca 8.5-10.5mg/dl Results: PTH today -101 (pt not taking calcitriol) Phos today -3.0 (pt not taking binders) Calcium today - 9.4 Changes discussed with RN Specialist: None A/P: Would avoid vitamin D analogues in this case given potential negative impact on vascular changes Problem: Nutrition Goal: Albumin > 4.0gm/dl BMI 20-25 kg/m2 Results: Albumin today - 4.5 Changes discussed with RN Specialist: None A/P: ok Problem: Patient does not have Diabetes Goal: HA1C ~ 7.0% Results: Random Glucose - 95 Changes discussed with RN Specialist: A/P: ok Problem: Dyslipidemia Goal: LDL < 100 mg/dl Results: LDL not checked today - 137 in April 2016 Changes discussed with RN Specialist: Patient has made changes to her diet to heart healthy diet. She has lost 5 lbs. Summary: Stable CKD in patient with severe sceroderma. Return to CKD clinic: 6 months documented in this encounter Plan of Treatment Upcoming Encounters Date Type Department Care Team (Late st Contact Info) Description 10/07/2024 11:30 AM EST Office Visit Dermatology at [address] [address] Jo Ordaz MD [facility] [place] [address] 12/13/2024 11:30 AM EST [place]ment [place] [phone] 12/13/2024 1:00 PM EST Office [place] [address] Kiet Pardo MD [facility] [address] documented as of this encounter Results * Protein/Creatinine Ratio, urine (08/04/2016 11:01 AM EDT) Creatinine, Urine 30 mg/dL [facility] Protein, Urine 8 0 - 12 mg/dL [facility] Protein / Creatinine Ratio, Urine 0.3 ratio [facility] Urine specimen (specimen) 08/04/2016 11:01 AM EDT 08/04/2016 11:16 AM EDT Narrative Resulting Agency Comment Spec In Lab Sumit Sawyer MD URINE ORDERABLES Performing Organization Address City/[facility]/ZIP Co de Phone Number [facility] [place] [address] * (ABNORMAL) PTH (08/04/2016 10:52 AM EDT) Parathyroid Hormone 101(H) 15 - 65 pg/mL [facility] Blood specimen (specimen) 08/04/2016 10:52 AM EDT 08/04/2016 11:06 AM EDT Narrative Resulting Agency Comment Spec In Lab Sumit Sawyer MD CHEMISTRY ORDERABLE S Performing Organization Address City/[facility]/ZIP Co de Phone Number [facility] [place] [address] * Albumin Level (08/04/2016 10:52 AM EDT) Albumin 4.5 3.2 - 5.2 gm/dL [facility] Blood specimen (specimen) 08/04/2016 10:52 AM EDT 08/04/2016 11:06 AM EDT Narrative Resulting Agency Comment Spec In Lab Sumit Sawyer MD CHEMISTRY ORDERABLE S Performing Organization Address City/[facility]/ZIP Co de Phone Number [facility] [place] [address] * Phosphorus (08/04/2016 10:52 AM EDT) Phosphorus 3.0 2.5 - 4.5 mg/dL [facility] Blood specimen (specimen) 08/04/2016 10:52 AM EDT 08/04/2016 11:06 AM EDT Narrative Resulting Agency Comment Spec In Lab Sumit Sawyer MD CHEMISTRY ORDERABLE S [facility] [place] [address] * (ABNORMAL) Basic Metabolic Panel (non-fasting) (08/04/2016 10:52 AM EDT) Glucose 95 65 - 199 mg/dL [facility] Comment:Diabetes: >=200 mg/d L plus symptoms Blood Urea Nitrogen 27(H) 8 - 18 mg/dL [facility] Creatinine 1.27(H) 0.70 - 1.20 mg/dL [facility] Comment: Please note that the pediatric reference intervals supplied above were not validated at [facility]. Results from pediatric patients should be interpreted in conjunction to the patient's age, height and muscle mass. Sodium 138 135 - 145 mmol/L [facility] Potassium 5.3(H) 3.5 - 5.0 mmol/L [facility] Comment: Please note: ??Patients with WBC >100,000 may have falsely elevated Potassium levels. ??For accurate Potassium quantification in these patients send serum separator tube (gold top) for subsequent determinations. ??Contact the Clinical Chemistry Laboratory if there are any questions. Chloride 100 98 - 107 mmol/L [facility] Carbon Dioxide 24 22 - 31 mmol/L [facility] Anion Gap 14 5 - 15 mmol/L [facility] Calcium 9.4 8.5 - 10.5 mg/dL [facility] Est Glomerular Filtration Rate 44(L) [...] the following links into your internet browser. [email or web address] Blood specimen (specimen) 08/04/2016 10:52 AM EDT 08/04/2016 11:06 AM EDT Narrative Resulting Agency Comment Spec In Lab Sumit Sawyer MD CHEMISTRY ORDERABLE S [facility] [place] [address] documented in this encounter Visit Diagnoses Diagnosis CKD (chronic kidney disease) stage 4, GFR 15-29 ml/min Chronic kidney disease, Stage IV (severe) Scleroderma Systemic sclerosis CKD (chronic kidney disease) stage 3, GFR 30-59 ml/min Chronic kidney disease, Stage III (moderate) documented in this encounter Care Teams Librarian Special Library Relationship Specialty Start Date End Date Yaritza Pierre MD [address] [place] [address] PCP - General 03/27/12 11/27/18 documented as of this encounter
--- OUTSIDE RECORDS SUMMARY | 2024-09-14 13:10 | XMS_ITS | Encounter Summary ---
[place] [address] Care Team Providers Care Out And Out Cigar Maker Hand Name Role Phone Yaritza Pierre MD Primary Care Provider [phone] Reason for Visit * Reason Onset Date Comments Other 05/31/2016 appointment Encounter Details Date Type Department Care Team (Late st Contact Info) Description 05/31/2016 [place] [phone] Diana Mccormack Other (appointment) Social History Tobacco Use Types Packs/Day Years [...] encounter Miscellaneous Notes * Telephone Encounter - Diana Mccormack - 05/31/2016 11:15 AM EDT Rec'd call from patient wondering if she can be seen tomorrow after her 9am follow up with Dr. Marroquin of plastics. She states that she is willing to see anyone. documented in this encounter Plan of Treatment Upcoming Encounters Date Type Department Care Team (Late st Contact Info) Description 10/07/2024 11:30 AM EST Office Visit Dermatology at [facility] [address] [place] [address] Jo Ordaz MD [facility] [place] [address] 12/13/2024 11:30 AM EST [place] [phone] 12/13/2024 1:00 PM EST Office [place] [phone] Kiet Pardo MD [facility] [place] [address] documented as of this encounter Visit Diagnoses Not on filedocumented in this encounter Care Teams Out And Out Cigar Maker Hand Relationship Specialty Start Date End Date Yaritza Pierre MD [address] [place] [address] PCP - General 03/27/12 11/27/18 documented as of this encounter
--- OUTSIDE RECORDS SUMMARY | 2024-09-14 13:10 | XMS_ITS | Encounter Summary ---
[place] [address] Care Team Providers Care Cover Cutter Name Role Phone Yaritza Pierre MD Primary Care Provider [phone] Reason for Visit * Reason Onset Date Comments Medication Refill 03/23/2016 Encounter Details Date Type Department Care Team (Late st Contact Info) Description 03/23/2016 [place] [phone] Shazia Valera RN Social History Tobacco Use Types Packs/Day [...] encounter Miscellaneous Notes * Telephone Encounter - Shazia Valera RN - 03/23/2016 1:04 PM EDT Patient calls stating that she was supposed to get a refill of her amlodipine after her visit with Dr. Mcdonough but that only the nexium and fosinopril were ordered. She is requesting a refill as she is out. documented in this encounter Plan of Treatment Upcoming Encounters Date Type Department Care Team (Late st Contact Info) Description 10/07/2024 11:30 AM EST Office Visit Dermatology at [facility] [address] [place] [address] Jo Ordaz MD [facility] [place] [address] 12/13/2024 11:30 AM EST Appointment [place] [phone] 12/13/2024 1:00 PM EST Office [place] [phone] Kiet Pardo MD [facility] [place] [address] documented as of this encounter Visit Diagnoses Not on filedocumented in this encounter Care Teams Cover Cutter Relationship Specialty Start Date End Date Yaritza Pierre MD [address] [place] [address] PCP - General 03/27/12 11/27/18 documented as of this encounter
--- OUTSIDE RECORDS SUMMARY | 2024-09-14 13:10 | XMS_ITS | Encounter Summary ---
Author [place] [address] Care Team Providers Care Ship Fitter Name Role Phone Yaritza Pierre MD Primary Care Provider [phone] Encounter Details Date Type Department Care Team (Latest Contact Info) Description 03/28/2016 2:00 PM EDT - 03/28/2016 11:59 PM EDT Hospital Encounter [place] [phone] Scleroderma Discharge Disposition: Home Social History Tobacco [...] 05/18/2011 09/23/2016 documented as of this encounter Procedure Notes * Martha Valencia MD - 03/29/2016 2:19 PM EDTAssociated Order(s): PULMONARY FUNCTION TEST PFT interpretation. Spirometry: ( ) Normal spirometry (x ) Obstructive ventilatory defect (x ) mild (FEV1 % pred >70%), ( ) moderate (60-69), ( ) moderately severe (50-59) ( ) severe (35-49), ( ) very severe (<35) ( ) Suspected restrictive defect (reduced FVC with normal FEV1/FVC), no obstruction ( ) concomitant restrictive ventilatory defect may exist ( reduced FVC and FEV1/FVC). Bronchodilator reponse: ( )Yes ( )No Lung Volumes: ( ) No evidence of restrictive ventilatory defect ( Normal TLC ) ( ) Restrictive ventilatory defect ( TLC <LLN) ( ) air trapping Diffusing Capacity: ( x ) Normal diffusing capacity ( ) Reduced diffusing capacity ( ) mild , ( ) moderate (40-60% pred), ( ) severe Pulse oximetry: Resting SpO2 In room air. ( x ) Normal ( ) reduced. ( <95%) Desaturation during ambulation ( ) Yes ( ) No Comment: The findings are consistent with obstructive lung disease, such as COPD or asthma. Clinically correlation is recommended. Martha Valencia MD Pulmonary/Critical Care [facility] documented in this encounter Plan of Treatment Upcoming Encounters Date Type Department Care Team (Late st Contact Info) Description 10/07/2024 11:30 AM EST Office Visit Dermatology at [address] [address] Jo Ordaz MD [facility] [place] [address] 12/13/2024 11:30 AM EST Appointment [place] [phone] 12/13/2024 1:00 PM EST Office [place] [address] Kiet Pardo MD [facility] [place] [address] documented as of this encounter Procedures Procedure Name Priority Date/Time Associated Diagnosis Comments COMMON PULMONARY FUNCTION TEST Routine 03/29/2016 2:19 PM EDT Scleroderma documented in this encounter Results * Pulmonary Function Testing [...] recommended. ?? Martha Valencia MD Pulmonary/Critical Care [facility] Yu Mcdonough DO PFT ORDERABLES documented in this encounter Visit Diagnoses Diagnosis Scleroderma Systemic sclerosis documented in this encounter Care Teams Ship Fitter Relationship Specialty Start Date End Date Yaritza Pierre MD [address] [place] [address] PCP - General 03/27/12 11/27/18 documented as of this encounter
--- OUTSIDE RECORDS SUMMARY | 2024-09-14 13:10 | XMS_ITS | Encounter Summary ---
[place] [address] Care Team Providers Care Customer Pricing Manager Name Role Phone Yaritza Pierre MD Primary Care Provider [phone] Reason for Visit * Diagnostic Test (Routine) - Canceled Specialty Diagnoses / Procedures Referred By Wander hernandez Referred To Contact Gastroenterology Diagnoses Gastroesophageal reflux disease, esophagitis presence not specified Scleroderma GERD, h/o Scleroderma. Question esophageal dysmotility. Procedures Manometry Esophageal HREM, EGD w bxs.?? Evelyn Miller, [facility] [place] [address] [facility] [address] [place] [address] Referral ID Status Reason Start Date Expiration Date Visits Requested Visits Authorized [id number] Canceled Specialty Service Requested 02/25/2016 02/24/2017 1 1 Encounter Details Date Type Department Care Team (Late st Contact Info) Description 03/28/2016 9:00 AM EDT Procedure [place] [address] Josh Ricci RN Scleroderma Social History Tobacco Use Types Packs/Day [...] as of this encounter Progress Notes * Josh Ricci RN - 03/28/2016 9:45 AM EDT HROEM catheter placed via Left nare without difficulty. Patient tolerated procedure well. documented in this encounter Plan of Treatment Upcoming Encounters Date Type Department Care Team ([facility] st Contact Info) Description 10/07/2024 11:30 AM EST Office Visit Dermatology at [facility] [address] [place] [address] Jo Ordaz MD [facility] [place] [address] 12/13/2024 11:30 AM EST Appointment [place] [address] 12/13/2024 1:00 PM EST Office [place] [address] Kiet Pardo MD [facility] [place] [address] documented as of this encounter Visit Diagnoses Diagnosis Scleroderma Systemic sclerosis documented in this encounter Care Teams Customer Pricing Manager Relationship Specialty Start Date End Date Yaritza Pierre MD [address] [place] [address] PCP - General 03/27/12 11/27/18 documented as of this encounter
--- OUTSIDE RECORDS SUMMARY | 2024-09-14 13:10 | XMS_ITS | Encounter Summary ---
Author Organization [facility] [place] [address] Care Team Providers Care Satellite Specialist Name Role Phone Yaritza Pierre MD Primary Care Provider [phone] Reason for Visit * Auth/Cert Specialty Diagnoses / Procedures Referred By Wander hernandez Referred To Contact Diagnoses Abnormal MRE~pancreatic divisum, and question of IPMN. H/o GERD, early satiety, postprandial fullness, Scleroderma. Procedures PRO ENDOSCOPIC US EXAM, ESOPH UPPER EUS- ENDOSCOPIC ULTRASOUND Referral ID Status Reason Start Date Expiration Date Visits Re quested Visits Authorized [id number] 1 1 Encounter Details Date Type Department Care Team (Late st Contact Info) Description 03/29/2016 11:35 AM EDT Anesthesia [place] [address] Huseyin Mars MD [facility] DR ANESTHESIOLOGY [place] [address] Anesthesia Record Procedure Summary Procedure Name Responsible Anesthesiologist Anesthesia Start Time Anesthesia Stop Time UPPER EUS- ENDOSCOPIC ULTRASOUND (WRVU 3.47) (Trunk) Huseyin Mars MD 03/29/16 1135 03/29/16 1209 Events Date Time Event Comment 03/29/2016 0856 1135 AN Verify 1135 Start 1135 An Start Data 1142 An Induction 1143 Anesthesia Ready 1144 Procedure Start 1203 Procedure Stop 1209 an stop data 1209 Recovery or ICU Handoff Lorri ent care was transferred to the destination unit staff after review of the patient's medical history, current anesthetic/surgical status and plan, according to the Provider Handoff Checklist. 1209 Stop Meds Name Total IV Lidocaine 40 mg Propofol 150 mg Propofol INF 324.45 mg Lactated Ringers 900 mL * Agents Name O2 * Blood No blood administrations on file. [...] OR Notes * Anesthesia Postprocedure Evaluation - Huseyin Mars MD - 03/29/2016 12:46 PM EDT [facility] Department of Anesthesiology Post-procedure Note Patient: Amber Wells Procedure Summary Date Anesthesia Start Anesthesia Stop Room / Location 03/29/16 [address] [facility] ENDO 3 / [facility] END[facility] Procedure Diagnosis Surgeon Responsible Provider UPPER EUS- ENDOSCOPIC ULTRASOUND (N/A Trunk); UPPER GASTROINTESTINAL ENDOSCOPY,WITH BIOPSY SINGLE OR MULTIPLE (N/A ) Pancreatic divisum; Abnormal CT of the abdomen; H/O scleroderma; Gastroesophageal reflux disease, esophagitis presence not specified (Abnormal MRE~pancreatic divisum, and question of IPMN. H/o GERD, early satiety, postprandial fullness, Scleroderma.) Darryl Ash MD Bertrand, Marc L, MD All Anesthesia Providers: Anesthesiologist: Huseyin Mars MD MAKE READY MECHANIC: Mario Christine CRNA Last (1hr) Vitals: BP Temp Pulse Resp SpO2 Patient [facility] Level of Consciousness: Awake and Alert Pain Management: Pain Being Addressed PONV: None Cardiovascular Status: At Baseline Respiratory Status: At Baseline Postoperative Fluid Status: Intravascular EUvolemia Possible Anesthetic Complications: NONE apparent at time of evaluation Final Primary Anesthesia Type: MAC (The anesthetic type performed was the same as planned.) Comments: Sore throat [id number] tylenol for analgesia. * Anesthesia Preprocedure Evaluation - Huseyin Mars MD - 03/28/2016 9:21 PM EDT Pre-Anesthesia Evaluation for: Amber Wells a 55 y.o. female. Procedure(s): UPPER EUS- ENDOSCOPIC ULTRASOUND Patient Active Problem List Diagnosis ??? Fecal [...] crisis Had tunnelled dialysis catheter removed at [facility] IR in June 2010 ??? Scleroderma Past Medical History Diagnosis Date ??? Arthritis ??? Hypertension ??? Scleroderma 1990 Diffuse scleroderma. ??? Neuromuscular disorder ??? Chronic kidney disease 2010 Dialysis AprilJun 2010, producing hemoglobin since ??? Raynaud's syndrome 1990 ??? Anemia associated with chronic renal failure ??? CKD (chronic kidney disease) stage 4, GFR 15-29 ml/min 04/20/2010 ??? Anemia in CKD (chronic kidney disease) ??? 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 Created by interface Entered not Verified Procedure Date: 01/27/2011 ??? Created by interface No History of Operative Procedures Procedure Date: 01/27/2011 ??? Dilation and curettage of uterus ??? Skin biopsy back 05/06/14 excisional bx of spindle cell tumor of the back History Substance Use Topics ??? Smoking status: Former Smoker -- 1.00 packs/day for 10 years Types: Cigarettes Quit date: 03/30/1988 ??? Smokeless tobacco: Never Used ??? Alcohol Use: No History Drug Use No No Known Allergies Medications: MAR and/or home medications have been reviewed. Physical Exam: There were no vitals filed for this visit. There is no weight on file to calculate BMI. Airway Assessment: Mallampati: II TM distance: >3 FB Neck ROM: full Mild limitation mouth opening. Cardiovascular Assessment: Rhythm: regular Rate: normal (-) murmur Pulmonary Assessment: breath sounds clear to auscultation Dental Assessment: Misc Assessment: Patient is wearing No contact(s). IV access: Peripheral line Other exam findings: PIV in situ right antecubital-runs well w/o complaint. Anesthesia Plan: ASA 3 MAC, with a(n) intravenous induction 55 yro with diffuse systemic sclerosis orginally diagnosed in 1991 presenting for upper endoscopic ultrasound. She has been off immunosuppressive therapy since 2005. Echo and PFT's WNL 2011. Experienced a scleroderma renal hypertensive crisis in 2009-on dialysis for a brief period of time followingthis episode but currently with stable CKD w/creatinine 1.4. Additional PMHx, Raynauds disease GERD(well controlled on Nexium) and anemia of chronic disease. No recent change in health and specifically denies URI. No prior issues with anesthesia but she does not believe that she has ever had a GA.No FHx anesthesia-related issues that she is aware of. Her Raunauds is quite severe and she is scheduled for ulnar artery bypass procedure at the end of the month. NPO status verified. Full code per discussion with patient. Plan: MAC, standard monitors Region - Other Informed Consent: Anesthetic plan and risks discussed with patient. Plan discussed with MAKE READY MECHANIC. PAT Staff Note documented in this encounter Plan of Treatment Upcoming Encounters Date Type Department Care Team (Late st Contact Info) Description 10/07/2024 11:30 AM EST Office Visit Dermatology at [facility] [address] [place] [address] Jo Ordaz MD [facility] [place] [address] 12/13/2024 11:30 AM EST Appointment [place] [address] 12/13/2024 1:00 PM EST Office [place] [address] Kiet Pardo MD [facility] [place] [address] documented as of this encounter Visit Diagnoses Not on filedocumented in this encounter Administered Medications Inactive Administered Medications - up to 3 most recent administrations Medication Order MAR Action Action Date Dose Rate Site lactated ringers infusion CONTINUOUS PRN, Starting on Mon03/29/16 at 1135, Until Mon03/29/16 at 1209, Anesthesia Intra-op New Bag 03/29/2016 11:35 AM EDT lidocaine (PF) (XYLOCAINE) 100 mg/5 mL (2 %) injection PRN, Starting on Mon03/29/16 at 1142, Until Mon03/29/16 at 1209, Anesthesia Intra-op, Routine Given 03/29/2016 11:42 AM EDT 40 mg propofol (DIPRIVAN) 10 mg/mL bolus injection (Anesthesia) PRN, Starting on Mon03/29/16 at 1142, Until Mon03/29/16 at 1209, Anesthesia Intra-op Given 03/29/2016 11:56 AM EDT 50 mg Given 03/29/2016 11:45 AM EDT 50 mg Given 03/29/2016 11:42 AM EDT 50 mg propofol (DIPRIVAN) infusion CONTINUOUS PRN, Starting on Mon03/29/16 at 1142, Until Mon03/29/16 at 1209, Anesthesia Intra-op, Routine Rate/Dose Change 03/29/2016 11:47 AM EDT 200 mcg/kg/min 75.6 mL/hr New Bag 03/29/2016 11:42 AM EDT 150 mcg/kg/min 56.7 mL/ hr documented in this encounter Care Teams Satellite Specialist Relationship Specialty Start Date End Date Yaritza Pierre MD [address] [place] [address] PCP - General 03/27/12 11/27/18 documented as of this encounter
--- OUTSIDE RECORDS SUMMARY | 2024-09-14 13:10 | XMS_ITS | Encounter Summary ---
Author Organization [place] [address] Care Team Providers Care Football Scout Name Role Phone Yaritza Pierre MD Primary Care Provider [phone] Encounter Details Date Type Department Care Team (Late st Contact Info) Description 04/05/2016 Orders Only [place] [address] Diann Cain PA [address] [place] [address] [place] [address] Fecal incontinence Social History Tobacco Use Types [...] EST Office Visit Dermatology at [facility] [address] [place] [address] Jo Ordaz MD [facility] [place] [address] 12/13/2024 11:30 AM EST Appointment [place] [phone] 12/13/2024 1:00 PM EST Office [place] [phone] Kiet Pardo MD [facility] [place] [address] documented as of this encounter Visit Diagnoses Diagnosis Fecal incontinence Full incontinence of feces documented in this encounter Care Teams Football Scout Relationship Specialty Start Date End Date Yaritza Pierre MD [address] [place] [address] PCP - General 03/27/12 11/27/18 documented as of this encounter
--- OUTSIDE RECORDS SUMMARY | 2024-09-14 13:10 | XMS_ITS | Encounter Summary ---
Author Organization [facility] Address [facility] [place] [address] Care Team Providers Care In Flight Refueling Craftsman Name Role Phone Yaritza Pierre MD Primary Care Provider [phone] Reason for Visit * Reason Comments Follow-up left ulnar artery gr aft Encounter Details Date Type Department Care Team (Late st Contact Info) Description 07/07/2016 9:30 AM EDT Office [place] [address] Andre Marroquin MD [facility] [place] [place] [address] Scleroderma Social History Tobacco Use Types Packs/Day [...] - Inhaled Oxygen Concentration - - Weight 61.2 kg (135 lb) 07/07/2016 10:12 AM EDT Height 170.2 cm (5' 7) 07/07/2016 10:12 AM EDT Body Mass Index 21.14 07/07/2016 10:12 AM EDT documented in this encounter Patient Instructions * Patient Instructions* Alla Shin RMA - 07/07/2016 9:30 AM EDT You were given written and verbal preoperative instructions today. To prepare for your upcoming surgery, please review the Pre-Operative Instruction brochure that wasgiven to you. Remember to do the pre op wash, with Hibiclens soap, as instructed. You will need a driver manager. Expect a call from the nurses from the Same Day Dept. the business day before the surgery to instruct you in the time to arrive as well as when to stop eating and drinking. Feel free to call our office @ [phone] if you have any questions or concerns. We monitor the phones from -Monday through Monday.Written and verbal preoperative instructions were given at this visit. Please review the written information prior to your procedure and contact us with any questions.Feel free to call our office at if you have any questions or concerns. We monitor thephones from 8-Monday - Monday. documented in this encounter Progress Notes * Andre Marroquin MD - 07/07/2016 9:30 AM EDT Plastic Surgery Post Op Note Reason for visit: F/U status post procedure Date of surgery: 04/08/16 Procedure(s): Left ulnar artery resection and reconstruction with left cephalic vein Complications: None reported Pain: 0/10 HPI: Pt returns in follow up to review recent MRI results. She reports that slowly her hand is improving on the right. She continues OT on the left, she reports that her hand still turns blue when she is outside. Has an ulcer on her long finger which still has not fully healed. Examination: Patient is alert, conversant, comfortable, ambulating Left forearm incisions: CDI, healing well. Doppler indicates flow in ulnar artery and into the arch, no ulcer on L fingertips. L wrist ROM limited by scar, but incision well healed. No signs of infection R hand: scab 5mm at ulnar tip of long, pulp warm/pink/senate, shallow ulcer at tip of thumb, no SOI. Radial artery pal, no ulnar artery pal or dopplerable. MRI shows IMPRESSION 1. Incomplete, near absent superficial palmar arch and occluded radial artery at the level of the wrist joint. 2. Patent radial artery and deep palmar arch as described above. Suboptimal assessment of the vasculature of the fingers. 3. Abnormal signal intensity in the lunate. Recommend radiography to determine if there is avascular necrosis or other etiology. Impression: Amber Wells is a 56 y.o. female who was seen today for follow- up after the above procedure. Please see the operative note for details. MRI results of right have reviewed which showsoccluded radial artery at the wrist and near absent palmar arch. This does not make her a candidatefor ulnar bypass reconstruction that was successful on the left. We discussed treatment options including ulnar artery transfer into cephalic vein, I advised that this is not a common procedure. I advised that this procedure will not affect her hand function long-term. She would like to proceed in the fall. Plan: 1. Schedule for surgery in late August Grid: Surgeon: Lopez Duration: 3 hours 1 night overnight stay Timeframe: august Procedure: Ulnar artery transfer into cephalic vein CPT: 64115 Surgical site: arm Side: Right Anesthesia: General Follow up: 7 Days at [facility] w/ OT PAT: No Microscope I, Valentina Nye, am acting as scribe for Dr Marroquin. All work documented was performed by Dr Marroquin. ???I performed the above scribed service and agree with the accuracy of the note?? Dr. Andre Marroquin. * Lucy-Alla Khan RMA - 07/07/2016 9:30 AM EDT Pre-Op Teaching for Surgery Surgery: Right ulnar artery to saphenous vein Written and verbal pre-operative instructions were given and reviewed with patient: Patient was advised to discontinue use of NSAIDS and aspirin products (unless otherwise advised by patient's PCP/Automotive Light Mechanic for cardiac symptoms), fish oil, Vitamin E and herbal supplements for 14 days prior to surgery, to perform the pre-op scrub, and to coordinate a ride home following surgery. Smoking status and medications were further reviewed to rule out/address current use of Nicotine, Coumadin, Plavix, Estrogen or Tamoxifen. Patient was instructed to call the clinic at with any questions or concerns prior tosurgery. documented in this encounter Plan of Treatment Upcoming Encounters Date Type Department Care Team (Late st Contact Info) Description 10/07/2024 11:30 AM EST Office Visit Dermatology at [address] [address] Jo Ordaz MD [facility] [place] [address] 12/13/2024 11:30 AM EST Appointment [place] [address] 12/13/2024 1:00 PM EST Office [place] [phone] Kiet Pardo MD [facility] [place] [address] documented as of this encounter Visit Diagnoses Diagnosis Scleroderma Systemic sclerosis documented in this encounter Care Teams In Flight Refueling Craftsman Relationship Specialty Start Date End Date Yaritza Pierre MD [address] [place] [address] PCP - General 03/27/12 11/27/18 documented as of this encounter
--- OUTSIDE RECORDS SUMMARY | 2024-09-14 13:10 | XMS_ITS | Encounter Summary ---
[place] [address] Care Team Providers Care Building Custodian Name Role Phone Yaritza Pierre MD Primary Care Provider [phone] Reason for Referral * Diagnostic Test (Routine) - Specialty Diagnoses / Procedures Referred By Wander hernandez Referred To Contact Radiology Diagnoses Scleroderma Raynaud's disease without gangrene Procedures MRI Upper Extremity Right Angiogram Andre Marroquin MD [facility] [address] [place] [address] Referral ID Status Reason Start Date Expiration Date Visits Requested Visits Authorized [id number] Specialty Service Requested 06/28/2016 08/28/2016 2 2 Reason for Visit * Diagnostic Test (Routine) - Specialty Diagnoses / Procedures Referred By Wander hernandez Referred To Contact Radiology Diagnoses Scleroderma Raynaud's disease without gangrene Procedures MRI Upper Extremity Right Angiogram Andre Marroquin MD [facility] [address] [place] [address] Referral ID Status Reason Start Date Expiration Date Visits Requested Visits Authorized [id number] Specialty Service Requested 06/28/2016 08/28/2016 2 2 Encounter Details Date Type Department Care Team (Latest Contact Info) Description 06/28/2016 12:23 PM EDT - 06/28/2016 11:59 PM EDT Hospital Encounter MRI at [facility] [place] [address] Andre Marroquin MD [facility] [place] [address] Scleroderma; Raynaud's disease without gangrene Discharge Disposition: Home Social History Tobacco Use [...] inches onto the skin every 6 hours. sildenafil (REVATIO) 20 mg Tablet 05/26/2016 03/29/2017 acetaminophen-codeine (TYLENOL #3) 300-30 mg Tablet Take 1 tablet by mouth every 4 hours as needed for Pain. 30 tablet 06/01/2016 07/07/2016 LORazepam (ATIVAN) 0.5 mg Tablet Take 1 tablet by mouth every 8 hours as needed for Anxiety. 30 tablet 06/01/2016 08/04/2016 aspirin 81 mg Tablet, Chewable Take 81 [...] 11:30 AM EST Office Visit Dermatology at [address] [address] Jo Ordaz MD [facility] [place] [address] 12/13/2024 11:30 AM EST Appointment [place] [phone] 12/13/2024 1:00 PM EST Office [place] [phone] Kiet Pardo MD [facility] RHEUMATOLOGY [place], [place] [phone] documented as of this encounter Procedures Procedure Name Priority Date/Time Associated Diagnosis Comments MR ANGIOGRAM UPPER EXTREMIT WWO CONTRAST RIGHT Routine 06/28/2016 2:20 PM EDT Scleroderma Raynaud's disease without gangrene documented in this encounter Results * MRI Upper Extremity Right Angiogram (06/28/2016 2:20 PM EDT) Anatomical Region Laterality Modality Shoulder, Arm, Elbow, Forearm, Wrist, Hand Right Magnetic Resonance Impressions 06/28/2016 4:27 PM EDT 1. ??Incomplete, near absent superficial palmar arch and occluded radial artery at the level of the wrist joint. 2. ??Patent radial artery and deep palmar arch as described above. Suboptimal assessment of the vasculature of the fingers. 3. ??Abnormal signal intensity in the lunate. Recommend radiography to determine if there is avascular necrosis or other etiology. Narrative 06/28/2016 4:27 PM EDT EXAMINATION: MRI UPPER EXTREMITY RIGHT ANGIOGRAM CLINICAL HISTORY: scleroderma TECHNIQUE: MRI with and without contrast was performed of the right of the right wrist and hand COMPARISON: 03/01/2016 left hand angiogram FINDINGS: Suboptimal evaluation of the common and proper digital arteries due to spatial resolution and finger flexion. The radial artery is normal in caliber and widely patent. It supplies the deep palmar arch. The the first, second, third and fourth palmar metacarpals are patent. The radial artery contributes to the superficial palmar arch however this arch terminates at the level of the index finger and is not present along the ulnar side of the hand. The proper digital arteries to the index finger are visualized to the level of the proximal phalanges are patent. The second, third, and fourth common palmar digital arteries are patent however not visualized beyond the level of the MCP joints. The ulnar artery is seen in the distal forearm however occludes approximately 3.5 cm proximal to the radiocarpal joint. No definite reconstitution is demonstrated. There is serpiginous low signal intensity within the lunate which was incompletely assessed on this study. Procedure Note Kathi Carvalho MD - 06/28/2016 EXAMINATION: MRI UPPER EXTREMITY RIGHT ANGIOGRAM CLINICAL HISTORY: scleroderma TECHNIQUE: MRI with and without contrast was performed of the right of theright wrist and hand COMPARISON: 03/01/2016 left hand angiogram FINDINGS: Suboptimal evaluation of the common and proper digital arteries due tospatial resolution and finger flexion. The radial artery is normal in caliber and widely patent. It supplies thedeep palmar arch. The the first, second, third and fourth palmar metacarpalsare patent. The radial artery contributes to the superficial palmar archhowever this arch terminates at the level of the index finger and is not presentalong the ulnar side of the hand. The proper digital arteries to the indexfinger are visualized to the level of the proximal phalanges are patent. The second,third, and fourth common palmar digital arteries are patent however notvisualized beyond the level of the MCP joints. The ulnar artery is seen in the distal forearm however occludesapproximately 3.5 cm proximal to the radiocarpal joint. No definite reconstitution is demonstrated. There is serpiginous low signal intensity within the lunate which was incompletely assessed on this study. IMPRESSION 1. Incomplete, near absent superficial palmar arch and occluded radialartery at the level of the wrist joint. 2. Patent radial artery and deep palmar arch as described above.Suboptimal assessment of the vasculature of the fingers. 3. Abnormal signal intensity in the lunate. Recommend radiography todetermine if there is avascular necrosis or other etiology. Andre Marroquin MD G MRI ORDERABLES documented in this encounter Visit Diagnoses Diagnosis Scleroderma Systemic sclerosis Raynaud's disease without gangrene documented in this encounter Administered Medications Inactive Administered Medications - up to 3 most recent administrations Medication Order MAR Action Action Date Dose Rate Site gadobutrol (GADAVIST) 1 mMol/mL injection 6 mL 6 mL, Intravenous, ONCE PRN, 1 dose, Starting on Mon06/28/16 at 1316, Until Mon06/28/16 at 1400, Per Protocol, Routine Given 06/28/2016 2:00 PM EDT 6 mLs documented in this encounter Care Teams Building Custodian Relationship Specialty Start Date End Date Yaritza Pierre MD [address] [place] [address] PCP - General 03/27/12 11/27/18 documented as of this encounter
--- OUTSIDE RECORDS SUMMARY | 2024-09-14 13:10 | XMS_ITS | Encounter Summary ---
[place] [address] Care Team Providers Care Iron Plastic Bullet Maker Name Role Phone Yaritza Pierre MD Primary Care Provider [phone] Reason for Referral * Consultation (Routine) - Closed Specialty Diagnoses / Procedures Referred By Wander hernandez Referred To Contact Gastroenterology Diagnoses Gastroesophageal reflux disease, esophagitis presence not specified Scleroderma Sumit Lucas MD [facility] [place] [address] [facility] [address] [place] [phone] Referral ID Status Reason Start Date Expiration Date V isits Requested Visits Authorized [id number] Closed Consult, Test & Treat 06/28/2016 06/28/2017 1 1 Encounter Details Date Type Department Care Team (Latest Contact Info) Description 06/28/2016 9:30 AM EDT Office Visit [place] [address] Sumit Lucas MD [facility] [place] [address] Gastroesophageal reflux disease, esophagitis presence not specified; Scleroderma; Fecal incontinence Social History Tobacco Use Types [...] Sign Reading Time Taken Comments Blood Pressure 116/63 06/28/2016 9:24 AM EDT Pulse 78 06/28/2016 9:24 AM EDT Temperature - - Respiratory Rate - - Oxygen Saturation - - Inhaled Oxygen Concentration - - Weight 61.6 kg (135 lb 11.2 oz) 06/28/2016 9:24 AM EDT Height 170.2 cm (5' 7) 06/28/2016 9:24 AM EDT Body Mass Index 21.25 06/28/2016 9:24 AM EDT documented in this encounter Progress Notes * Sumit Lucas MD - 06/28/2016 9:30 AM EDT GI FOLLOWUP Amber Wells Female, 56 y.o., 1960 , SR None PCP: Yaritza Pierre MD MANGANESE HEATER: NONE REASON FOR VISIT This is a very nice 56-year-old woman whom I am asked to see in followup, although I have never seen her before. He was seen in the GI clinic previously by Ms. Evelyn Miller. TIME SPENT WITH PATIENT I spent 40 minutes with the patient reviewing records and interviewing the patient and reviewing test results, as this was the primary reason for the visit. The entire visit was spent in [id number]. In brief, the patient was diagnosed with scleroderma at least 25 years ago. We reviewed her esophageal motility study today which shows evidence of ineffective esophageal motility. This is a known outcome in many patients with systemic scleroderma. We also reviewed her anorectal manometry from 1.5 year ago. We reviewed her symptoms of reflux, and the use of her PPI. We also discussed her symptomsof incontinence and how best to treat that. I reviewed other symptoms; I reviewed her diet. A treatment plan is outlined below. ALLERGIES No known drug allergies. MEDICATIONS See eD-H; reviewed. PAST MEDICAL HISTORY 1. Arthritis. 2. Hypertension. 3. 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 4. Neuromuscular disorder. 5. Chronic kidney disease 2009. Dialysis AprilJun 2010, producing hemoglobin since 6. Raynaud's syndrome 1990. 7. Anemia associated with chronic renal failure. 8. CKD (chronic kidney disease) stage 4, GFR 15-29 ml/min 04/20/10. 9. Anemia in CKD (chronic kidney disease). 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 PAST SURGICAL HISTORY 1. Dilation and curettage of uterus. 2. Skin biopsy back 05/06/14. Excisional bx of spindle cell tumor of the back. SOCIAL HISTORY Lives with partner, currently not working. HABITS No tobacco, rare social alcohol. FAMILY HISTORY Noncontributory. RECENT TESTING 1. Colonoscopy 04/04/13: normal. 2. Anorectal manometry 12/09/14: low anal canal pressures, weak EAS resting pressure, excellent EAS squeeze pressures, normal RAIR rules out Hirschsprung's disease. Evidence of mild rectal hypersensitivity given low MTV. Abnormal balloon expulsion test. 3. Sitzmark study May 2015: no markers present on day five. 4. Upper endoscopy 03/29/16: esophageal changes consistent with Joseph's. 5. EUS 03/29/16: small, benign-appearing cysts. 6. Esophageal manometry 03/28/16: normal LES resting pressure and relaxation, normal UES resting pressure and relaxation, ineffective esophageal motility in the body of the esophagus. Only 30% of swallows were transmitted. IMPRESSIONS/RECOMMENDATIONS 1. Follow up with PCP as scheduled. Although not described above, the patient has symptoms of agoraphobia, and is under a significant amount of stress and has some symptoms that are somewhat hard to describe, but appear to be mild anxiety with panic attacks. 2. Follow up with her colorectal surgeon for fecal incontinence and Solesta treatment. 3. Follow up with pigment processor, hand surgeon, supervisor logging, ship's captain as scheduled. 4. For reflux, light evening meal, elevate head of bed three inches; use Nexium correctly one-half hour before dinner (not at bedtime). 5. EGD in one year in followup to Joseph's. 6. For fecal incontinence, continue Kegel exercises. Continue morning routine of getting up, havingcoffee, breakfast, and routine, scheduled bathroom time and then using 2 mg of Imodium each day. This has worked well for her. 7. I have not scheduled a followup appointment for this patient, as the next visit will be at the time of upper endoscopy. uSmit Lucas, PhD, MD service delivery management consultant, [facility] Chief, Section of Gastroenterology and Hepatology [facility] [place] [address] V: [phone] F: [phone] JENNIFER/carmen CC/EC: PCP - fax copy 07/04/16 [facility] Carpenter Assistant Installer - staff msg copy 07/04/16 documented in this encounter Plan of Treatment Upcoming Encounters Date Type Department Care Team (Late st Contact Info) Description 10/07/2024 11:30 AM EST Office Visit Dermatology at [address] [address] Jo Ordaz MD [facility] [place] [address] 12/13/2024 11:30 AM EST Appointment [place] [address] 12/13/2024 1:00 PM EST Office Visit [place] [address] Kiet Pardo MD [facility] [place] [address] Scheduled Referrals Name Type Priority Associated Diagnoses Order Schedule Referral to Gastroenterology Outpatient Referral Routine Gastroesophageal reflux disease, esophagitis presence not specified Scleroderma Ordered: 06/28/2016 documented as of this encounter Visit Diagnoses Diagnosis Gastroesophageal reflux disease, esophagitis presence not specified Scleroderma Systemic sclerosis Fecal incontinence Full incontinence of feces documented in this encounter Care Teams Iron Plastic Bullet Maker Relationship Specialty Start Date End Date Yaritza Pierre MD [address] [place] [address] PCP - General 03/27/12 11/27/18 documented as of this encounter
--- OUTSIDE RECORDS SUMMARY | 2024-09-14 13:10 | XMS_ITS | Encounter Summary ---
Author Organization [facility] Address [facility] [place] [address] Care Team Providers Care Emery Wheel Molder Name Role Phone Yaritza Pierre MD Primary Care Provider [phone] Reason for Visit * Auth/Cert Specialty Diagnoses / Procedures Referred By Wander hernandez Referred To Contact Diagnoses Abnormal MRE~pancreatic divisum, and question of IPMN. H/o GERD, early satiety, postprandial fullness, Scleroderma. Procedures PRO ENDOSCOPIC US EXAM, ESOPH UPPER EUS- ENDOSCOPIC ULTRASOUND Referral ID Status Reason Start Date Expiration Date Visits Re quested Visits Authorized [id number] 1 1 Encounter Details Date Type Department Care Team (Latest Contact Info) Description 03/29/2016 7:49 AM EDT - 03/29/2016 1:32 PM EDT Hospital Encounter [place] [address] Darryl Ash MD [facility] [place] [address] Discharge Disposition: Home Social History Tobacco Use [...] test. You may use ice chips, popsicles, [id number]-hshyttp throat lozenges or sprays that may help [...] can call us: Monday-Monday Same Day Endoscopy [phone] 7am-8pm NIghts or weekends call [phone] and ask to speak to the investment specialist operator weapon locating radar. documented in this encounter Medications at Time [...] 11:30 AM EST Office Visit Dermatology at [place] [address] [place] [address] Jo Ordaz MD [facility] [place] [address] 12/13/2024 11:30 AM EST Appointment [place] [address] 12/13/2024 1:00 PM EST Office [place] [address] Kiet Pardo MD [facility] [place] [address] documented as of this encounter Procedures Procedure [...] Report (03/29/2016 12:05 PM EDT) Final Diagnosis [id number] ? Location: 4T; EA11; A The signing [...] sing: (T2) ??lmp 04/01/2016 2:14 PM EDT [facility] GI Biopsy 03/29/2016 12:0 5 PM EDT 03/29/2016 12:05 PM EDT Darryl Ash MD PATHOLOGY/CYTOLOGY O RDERABLES [facility] [place] [address] * Specimen to Pathology (surgical or derm) (03/29/2016 12:05 PM EDT) AP Specimen 03/29/2016 12:0 5 PM EDT 03/29/2016 12:05 PM EDT Narrative [facility] - 03/29/2016 12:05 PM EDT Specimen requisition ordered. ??Separate Pathology report to follow Darryl Ash MD PATHOLOGY/CYTOLOGY O YVETTE Performing Organization Address [facility] [place] [address] * UPPER EUS-ENDOSCOPIC ULTRASOUND (03/29/2016 11:35 AM EDT) UPPER ENDOSCOPIC ULTRASOUND [facility] Endoscopy ___ Patient Name: Amber Wells ? Procedure Date: 03/29/2016 11:35 AM ? N: [id number] ? Date of : 1960 ? Age: 55 ? Order #: [id number] ? ___ Procedure: ? Upper EUS Indications: ? Pancreatic cyst on MRI, Dysphagia Providers: ? Darryl Ash MD, Debbie Garcia, ? RN, Katiuska Rosado RN Referring MD: ?Yaritza Pierre MD Medicines: ? [...] ? the physician, the nurse, the ? administration manager and the senior mechanical technician in the ? endoscopy suite. Mental [...] at 37 cm from the ? incisors. Hume-colored mucosa was present. The ? maximum longitudinal [...] Procedure Code(s): ?? --- Professional --- ? 72632, Esophagogastroduode noscopy, ? flexible, transoral; with biopsy, ? single or multiple ? --- Technical --- ? 03127, Esophagogastroduode noscopy, ? flexible, transoral; with biopsy, ? single or multiple CPT copyright 2014 [employer]. All rights reserved. The codes documented in this report are preliminary and upon outboard motor assembler review may be revised to meet current [...] Endoscopy (Recovery-Hospital Unit), Routine 1245 (Given - Provid er: Gunnar Degroot RN) documented in this encounter Care Teams Emery Wheel Molder Relationship Specialty Start Date End Date Yaritza Pierre MD [address] [place] [address] PCP - General 03/27/12 11/27/18 documented as of this encounter
--- OUTSIDE RECORDS SUMMARY | 2024-09-14 13:11 | XMS_ITS | Encounter Summary ---
Author Organization [facility] [place] [address] Care Team Providers Care Emt/Paramedic Name Role Phone Yaritza Pierre MD Primary Care Provider [phone] Reason for Visit * Diagnostic Test (Routine) - Closed Specialty Diagnoses / Procedures Referred By Wander hernandez Referred To Contact Radiology Diagnoses Scleroderma Raynaud's disease without gangrene Procedures MRI Upper Extremity Left Angiogram Andre Marroquin MD [facility] [place] [address] [place] [address] Referral ID Status Reason Start Date Expiration Date V isits Requested Visits Authorized [id number] Closed Specialty Service Requested 02/22/2016 04/22/2016 2 2 Encounter Details Date Type Department Care Team (Latest Contact Info) Description 03/01/2016 2:18 PM EDT - 03/01/2016 11:59 PM EDT Hospital [place] [address] Andre Marroquin MD [facility] [place] [address] Discharge Disposition: Home Social History Tobacco Use [...] Sig Dispensed Refills Start Date End Date loperamide (IMMODIUM) 2 mg Capsule Take 2 mg by mouth 4 times daily as needed for Diarrhea. vitamin E 400 unit Capsule Take 400 Units by mouth daily. cholecalciferol, Vitamin D3, 25 mcg (1,000 unit) Capsule Take 1 tablet by mouth daily. nitroGLYcerin (NITROGLYN) 2 % ointment Place 0.5 inches onto the skin every 6 hours. metroNIDAZOLE (FLAGYL) 250 mg TabletIndications:Scl eroderma,Abdominal bloating Take 1 tablet by mouth every 6 hours for 10 days. 40 tablet 0 02/26/2016 03/07/2016 rifaximin (XIFAXIN) 550 mg Tablet Take 1 tablet by mouth 3 times daily for 10 days. 30 tablet 0 02/25/2016 03/06/2016 amLODIPine (NORVASC) 10 mg Tablet Take 1 tablet by mouth daily. 90 tablet 3 11/27/2015 03/23/2016 fosinopril (MONOPRIL) 40 mg TabletIndications:Scl eroderma,CKD (chronic kidney disease) stage 3, GFR 30-59 ml/min Take 1 tablet by mouth daily. 90 tablet 3 05/27/2015 03/22/2016 esomeprazole (NEXIUM) 40 mg Capsule, Delayed Release(E.C.)Indicati ons:CKD (chronic kidney disease) stage 3, GFR 30-59 ml/min,Scleroderma,CK D (chronic kidney disease), stage 3 (moderate) Take 1 capsule by mouth 2 times daily. 180 capsule 3 05/27/2015 03/22/2016 lidocaine-prilocaine (EMLA) cream Apply topically as needed. 30 g 2 05/21/2013 01/09/2020 Acetaminophen 650 mg Tab Take 650 mg by mouth daily as needed. 05/18/2011 09/23/2016 documented as of this encounter Plan of Treatment Upcoming Encounters Date Type Department Care Team (Late st Contact Info) Description 10/07/2024 11:30 AM EST Office Visit Dermatology at [facility] [address] [place] [address] Jo Ordaz MD [facility] [place] [address] 12/13/2024 11:30 AM EST Appointment [place] [address] 12/13/2024 1:00 PM EST Office [place] [address] Kiet Pardo MD [facility] [place] [address] documented as of this encounter Procedures Procedure Name Priority Date/Time Associated Diagnosis Comments MR ANGIOGRAM UPPER EXTREMITY WWO CONTRAST LEFT Routine 03/01/2016 5:00 PM EDT Scleroderma Raynaud's disease without gangrene documented in this encounter Visit Diagnoses Not on filedocumented in this encounter Administered Medications Inactive Administered Medications - up to 3 most recent administrations Medication Order MAR Action Action Date Dose Rate Site gadobutrol (GADAVIST) 1 mMol/mL injection 6.3 mL 6.3 mL (0.1 mL/kg/dose ? 63 kg Order-specific weight), Intravenous, ONCE PRN, 1 dose, Starting on Mon03/01/16 at 1610, Until Mon03/01/16 at 1653, Per Protocol, Routine Given 03/01/2016 4:53 PM EDT 6 mLs documented in this encounter Care Teams Emt/Paramedic Relationship Specialty Start Date End Date Yaritza Pierre MD [address] [place], [place] [id number] PCP - General 03/27/12 11/27/18 documented as of this encounter
--- OUTSIDE RECORDS SUMMARY | 2024-09-14 13:11 | XMS_ITS | Encounter Summary ---
Author Organization [facility] Address [facility] [place] [address] Care Team Providers Care Locker Room Supervisor Name Role Phone Yaritza Pierre MD Primary Care Provider [phone] Encounter Details Date Type Department Care Team (Latest Contact Info) Description 02/25/2016 12:19 PM EDT - 02/25/2016 11:59 PM EDT Hospital Encounter XRay at [address] [place] [address] Sumit Lucas MD [facility] [place] [address] Other constipation; Chronic nausea; Abdominal bloating Discharge Disposition: Home Social History Tobacco Use [...] inches onto the skin every 6 hours. rifaximin (XIFAXIN) 550 mg Tablet Take 1 [...] EST Office Visit Dermatology at [place] [address] [place] [address] Jo Ordaz MD [facility] [place] [place] [address] 12/13/2024 11:30 AM EST Appointment [place] [address] 12/13/2024 1:00 PM EST Office Visit [place] [address] Kiet Pardo MD [facility] [place] [address] documented as of this encounter Procedures Procedure Name Priority Date/Time Associated Diagnosis Comments XR ABDOMEN 1 VIEW Routine 02/25/2016 12: 29 PM EDT Other constipation Chronic nausea Abdominal bloating documented in this encounter Results * XR Abdomen 1 View (GENERIC) (02/25/2016 12:29 PM EDT) Anatomical Region Laterality Modality Abdomen N/A Digital Radiogra phy Impressions 02/25/2016 1:41 PM EDT IMPRESSION: 1. ??Moderate to large amount stool throughout the colon as detailed above. 2. ??Gas-distended nondilated loop of small bowel within the mid abdomen may exhibit the classic hide bound pattern of intestinal scleroderma. Narrative 02/25/2016 1:41 PM EDT EXAMINATION: XR ABDOMEN ONE VIEW CLINICAL HISTORY: Abdominal boating, nausea, early satiety/postprandial fullness. H/o Scleroderma. Question constipation. TECHNIQUE: Supine AP abdominal radiograph. COMPARISON: Abdominal radiograph on 11/03/2014, 07/15/2015, 06/15/2015, and 06/19/2015. FINDINGS: Limited views of the lung bases are clear. Supine positioning of the patient limits evaluation for intraperitoneal free air. No large volume intraperitoneal free air, pneumatosis, or portal venous gas is present. No dilated loops of small or large bowel are present. There is a mildly prominent nondilated loop of jejunum within the left mid abdomen which is partially gas-filled and possibly exhibits the hide bound pattern of intestinal scleroderma. A moderate to large amount of stool is present within the ascending colon with a moderate amount of gas and stool within the descending and sigmoid colon. Gas is present within the rectum. There is no organomegaly or large soft tissue density masses within the abdomen. No abnormal soft tissue calcifications or radiopaque foreign bodies are present. No suspicious osseous lesions are seen. Mild degenerative changes are present at the lower lumbar spine with facet hypertrophy. Additionally there is a large prominent osteophyte on the left hip. Procedure Note Kiet Nick MD - 02/25/2016 EXAMINATION: XR ABDOMEN ONE VIEW CLINICAL HISTORY: Abdominal boating, nausea, early satiety/postprandial fullness. H/o Scleroderma. Question constipation. TECHNIQUE: Supine AP abdominal radiograph. COMPARISON: Abdominal radiograph on 11/03/2014, 07/15/2015, 06/15/2015,and 06/19/2015. FINDINGS: Limited views of the lung bases are clear. Supine positioning of thepatient limits evaluation for intraperitoneal free air. No large volumeintraperitoneal free air, pneumatosis, or portal venous gas is present. No dilated loopsof small or large bowel are present. There is a mildly prominent nondilatedloop of jejunum within the left mid abdomen which is partially gas-filled andpossibly exhibits the hide bound pattern of intestinal scleroderma. A moderate tolarge amount of stool is present within the ascending colon with a moderateamount of gas and stool within the descending and sigmoid colon. Gas is presentwithin the rectum. There is no organomegaly or large soft tissue density masseswithin the abdomen. No abnormal soft tissue calcifications or radiopaque foreignbodies are present. No suspicious osseous lesions are seen. Mild degenerative changes arepresent at the lower lumbar spine with facet hypertrophy. Additionally there is alarge prominent osteophyte on the left hip. IMPRESSION IMPRESSION: 1. Moderate to large amount stool throughout the colon as detailedabove. 2. Gas-distended nondilated loop of small bowel within the mid abdomenmay exhibit the classic hide bound pattern of intestinal scleroderma. Sumit Lucas MD IMG DX ORDERABLES documented in this encounter Visit Diagnoses Diagnosis Other constipation Chronic nausea Nausea alone Abdominal bloating Flatulence, eructation, and gas pain documented in this encounter Care Teams Locker Room Supervisor Relationship Specialty Start Date End Date Yaritza Pierre MD [address] [place] [address] PCP - General 03/27/12 11/27/18 documented as of this encounter
--- OUTSIDE RECORDS SUMMARY | 2024-09-14 13:11 | XMS_ITS | Encounter Summary ---
Author Organization [facility] Address [facility] [place] [address] Care Team Providers Care Embedded Processor Name Role Phone Yaritza Pierre MD Primary Care Provider [phone] Encounter Details Date Type Department Care Team (Late st Contact Info) Description 02/25/2016 Orders [place] [address] Andre Marroquin MD [facility] [place] [address] Social History Tobacco Use Types Packs/Day Years [...] at [facility] [address] [place] [address] Jo Ordaz MD [facility] [place] [address] 12/13/2024 11:30 AM EST Appointment [place] [phone] 12/13/2024 1:00 PM EST Office [place] [phone] Kiet Pardo MD [facility] [place] [address] documented as of this encounter Visit Diagnoses Not on filedocumented in this encounter Care Teams Embedded Processor Relationship Specialty Start Date End Date Yaritza Pierre MD [address] [place] [address] PCP - General 03/27/12 11/27/18 documented as of this encounter
--- OUTSIDE RECORDS SUMMARY | 2024-09-14 13:11 | XMS_ITS | Encounter Summary ---
[place] [address] Care Team Providers Care Biofuels Engineering Manager Name Role Phone Yaritza Pierre MD Primary Care Provider [phone] Encounter Details Date Type Department Care Team (Late st Contact Info) Description 02/11/2016 Telephone [place] [address] Krystal Harris Social History Tobacco Use Types [...] * Telephone Encounter - Krystal Harris - 02/11/2016 1:19 PM EDT Radiology questions documented in this encounter Plan of Treatment Upcoming Encounters Date Type Department Care Team (Late st Contact Info) Description 10/07/2024 11:30 AM EST Office Visit Dermatology at [facility] [address] [place] [address] Jo Ordaz MD [facility] [place] [address] 12/13/2024 11:30 AM EST [place] [address] 12/13/2024 1:00 PM EST Office [place] [address] Kiet Pardo MD [facility] [place] [address] documented as of this encounter Visit Diagnoses Not on filedocumented in this encounter Care Teams Biofuels Engineering Manager Relationship Specialty Start Date End Date Yaritza Pierre MD [address] [place] [address] PCP - General 03/27/12 11/27/18 documented as of this encounter
--- OUTSIDE RECORDS SUMMARY | 2024-09-14 13:11 | XMS_ITS | Encounter Summary ---
Author Organization Formerly [facility] [place] [address] Care Team Providers Care Supervisor Cap And Hat Production Name Role Phone Niesha Gonzalez MD Primary Care Provider [phone] Reason for Referral * Diagnostic Test (Routine) - Closed Specialty Diagnoses / Procedures Referred By Contac t Referred To Contact Radiology Diagnoses Scleroderma Raynaud's disease without gangrene Procedures MRI Upper Extremity Left Angiogram Andre Marroquin MD [facility] [place] [address] [place] [address] Referral ID Status Reason Start Date Expiration Date V isits Requested Visits Authorized [id number] Closed Specialty Service Requested 02/22/2016 04/22/2016 2 2 * Diagnostic Test (Routine) - Specialty Diagnoses / Procedures Referred By Wander hernandez Referred To Contact Radiology Diagnoses Scleroderma Raynaud's disease without gangrene Procedures MRI Upper Extremity Right Angiogram Andre Marroquin MD [facility] [place] [address] [place] [address] Referral ID Status Reason Start Date Expiration Date Visits Requested Visits Authorized [id number] Specialty Service Requested 06/28/2016 08/28/2016 2 2 Reason for Visit * Reason Comments Advice Only scleroderma/finger l aceration bilat hands Encounter Details Date Type Department Care Team (Late st Contact Info) Description 02/11/2016 11:30 AM EDT Office [place] [address] Andre Marroquin MD [facility] [place] [address] Scleroderma; Raynaud's disease without gangrene Social History [...] Oxygen Concentration - - Weight 63 kg (138 lb 12.8 oz) 02/11/2016 11:09 A M EDT Height 167.6 cm (5' 6) 02/11/2016 11:09 AM EDT Body Mass Index 22.4 02/11/2016 11:09 AM EDT documented in this encounter Progress Notes * Andre Marroquin MD - 02/11/2016 11:14 AM EDT Plastic Surgery Hand Consultation Note I have been asked to see the patient by NIESHA GONZALEZ MD CC: Scleroderma, and Raynaud's bilateral hands Hand Dominance: Right Workers Compensation: No Mechanism of Injury and HPI: Amber Wells is a 55 y.o. female. She reports she has sclerodermaand was diagnosed in 1990 [facility]. She had been doing well with the disease until recently.She reports she has developed throbbing, and burning pain in her hands over the past few months. She reports that she also has Raynaud's disease in her hands and feet. 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 This is her passion and she wishes to be able to paintagain. She also like to play the guitar. She is wondering if she would benefit from Botox injections to her hands. She wears gloves to protect her hands. She has developed swelling, and pain of her right earlobe, and it is painful to sleep, or apply pressure to the ear. Pertinent findings to emphasize are: myD-H Hand 02/09/2016 Quick DASH Disability/Symptoms 72.72 Quick DASH -Sports - Funes - Left Hand Score 2.27 Funes - Right Hand Score 3.09 VR12 - Physical Component Summary - VR12 - Mental Component Summary - Right or Left Handed Right-handed Hand(s)/Wrist(s) Evaluated? Both Prior Surgery? Neither Right- Problems for how long? More than 1 year Right - Non-operative treatments? I have tried anti-inflammatory medications, I have tried to modify how I use my hands Right - Non-operative treatments helped? Non-operative treatments have only been partially helpful Right - Important reason for treatment? Relief of night pain Left - Problems for how long? More than 1 year Left - Non-operative treatments? I have tried anti-inflammatory medications, I have tried to modifyhow I use my hands Left - Non-operative treatments helped? Non-operative treatments have only been partially helpful Left - Important reason for treatment? Relief of night pain Condition- accident related? No - my condition is not the result of an accident Condition - work or job related? No Past Medical History Diagnosis Date ??? Arthritis [...] spindle cell tumor of the back History Social History ??? Marital Status: Single Spouse Name: N/A Number of Children: N/A ??? Years of Education: N/A Occupational History ??? Not on file. Social History Main Topics ??? Smoking status: Former Smoker -- 1.00 packs/day for 10 years Types: Cigarettes Quit date: 03/30/1988 ??? Smokeless tobacco: Never Used ??? Alcohol Use: No ??? Drug Use: No ??? Sexual Activity: Not on file Other Topics Concern ??? Not on file Social History Narrative No Known Allergies Current Outpatient Prescriptions on File Prior to Visit Medication Sig Dispense Refill ??? amLODIPine (NORVASC) 10 mg Tablet Take 1 tablet by mouth daily. 90 tablet 3 ??? fosinopril (MONOPRIL) 40 mg Tablet Take 1 tablet by mouth daily. 90 tablet 3 ??? esomeprazole (NEXIUM) 40 mg Capsule, Delayed Release(E.C.) Take 1 capsule by mouth 2 times daily. 180 capsule 3 ??? lidocaine-prilocaine (EMLA) cream Apply topically as needed. 30 g 2 ??? Cholecalciferol, Vitamin D3, (VITAMIN D) 1,000 unit Cap Take 1 tablet by mouth daily. ??? Acetaminophen 650 mg Tab Take 650 mg by mouth daily as needed. ??? nitroGLYcerin (NITROGLYN) 2 % ointment Place 0.5 inches onto the skin every 6 hours. ??? vitamin E 400 unit Capsule Take 400 Units by mouth daily. No current facility-administered medications on file prior to visit. Examination: Ht 167.6 cm (5' 6) Wt 62.959 kg (138 lb 12.8 oz) BMI 22.41 kg/m2 LMP 11/27/2014 No acute distress Bilateral Upper extremity: Hand: Tight, erythematous skin over all ditis with scabbing/uclers at tip of index fingers, no acute infection, no exposed bone, hand stiffness. On doppler absent ulnar artery bilaterally, intact radial, weak arch, no digital vessels. Ulnar artery occlusion bilaterally Right ear: tight skin envelope, ?microcalc in skin, no exposed cartilage Diagnostic Testing: Will obtain an MRA of her upper extremities Impression: Amber Wells is a 55 y.o. female patient with scleroderma and Raynaud's disease. Idiscussed the complex nature of this disease, and possible treatment options to improve the blood flow to her hands. I will obtain MRA testing of her arms, and follow up with her afterwards to reviewthe results and determine a treatment plan. Plan: 1. MRA bilateral hands 2. Follow up after MRA to review the results and determine a treatment plan I, Анна Fishman, am acting as scribe for Dr Marroquin All work documented was performed by Dr Marroquin. ???I performed the above scribed service and agree with the accuracy of the note?? Andre Marroquin MD documented in this encounter Plan of Treatment Upcoming Encounters Date Type Department Care Team (Late st Contact Info) Description 10/07/2024 11:30 AM EST Office Visit Dermatology at [address] [address] Jo Ordaz MD [facility] [place] [address] 12/13/2024 11:30 AM EST [place] [phone] 12/13/2024 1:00 PM EST [place] [phone] Kiet Pardo MD [facility] [place] [address] documented as of this encounter Results * [...] necrosis or other etiology. Andre Marroquin MD [facility] MRI ORDERABLES * MRI Upper Extremity Left Angiogram (03/01/2016 5:00 PM EDT) Anatomical Region Laterality Modality Shoulder, Arm, Elbow, Forearm, Wrist, Hand Left Magnetic Resonance Impressions 03/03/2016 5:37 PM EDT IMPRESSION: 1. ??The distal ulnar artery at the level of the carpal bones is either extremely stenotic or occluded. 2. ??The radial artery supplies the deep palmar arch which terminates at the level of the fourth metacarpal with a possible small communicating vessel to the distal ulnar artery. 3. ??The superficial palmar arches diminutive throughout and likely incomplete terminating in the region of the fourth metacarpal. There is a questionable thin communicating vessel to the radial artery. 4. ??Poor visualization of the distal digital arteries is possibly secondary to vasospasm in the setting of Raynauds. If MRA images are not adequate for surgical planning, consider referral to interventional radiology for diagnostic angiogram. Narrative 03/03/2016 5:37 PM EDT EXAMINATION: MRI UPPER EXTREMITY LEFT ANGIOGRAM CLINICAL HISTORY: sceroderma TECHNIQUE: MRA with and without contrast of the left wrist and hand. 6 mL's of Gadavist was administered intravenously without complication. 3-D reconstructed images were created and reviewed. COMPARISON: None FINDINGS: MRA of the distal left forearm and hand with and without contrast show the visualized distal radial artery to be widely patent. It supplies the deep palmar arch which is well opacified to the fourth metacarpal with a very diminutive connection to the poorly visualized distal ulnar artery. The princeps pollicis artery is patent proximally but terminates at the level of the first metacarpophalangeal joint space. The radialis indecis artery is not seen. The second third and fourth palmar metacarpal arteries are patent. The common palmar digital arteries are patent. The proper digital arteries of the second third and fourth digits are well visualized to the level of the proximal interphalangeal joint spaces. The digital arteries of the fifth digit is only visualized to the mid first phalanx. The visualized portion of the distal ulnar artery is diminutive with loss of the definitive vessel lumen at the level of the ulnar styloid. The superficial palmar arch is incomplete with supply via a diminutive ulnar artery and likely termination the fourth metacarpal with a questionable small diminutive branch extending to the radial artery. Procedure Note Kiet Nick MD - 03/03/2016 EXAMINATION: MRI UPPER EXTREMITY LEFT ANGIOGRAM CLINICAL HISTORY: sceroderma TECHNIQUE: MRA with and without contrast of the left wrist and hand. 6mL's of Gadavist was administered intravenously without complication. 3-Dreconstructed images were created and reviewed. COMPARISON: None FINDINGS: MRA of the distal left forearm and hand with and without contrast showthe visualized distal radial artery to be widely patent. It supplies the deeppalmar arch which is well opacified to the fourth metacarpal with a verydiminutive connection to the poorly visualized distal ulnar artery. The princeps pollicis artery is patent proximally but terminates at thelevel of the first metacarpophalangeal joint space. The radialis indecis artery isnot seen. The second third and fourth palmar metacarpal arteries are patent.The common palmar digital arteries are patent. The proper digital arteries ofthe second third and fourth digits are well visualized to the level of theproximal interphalangeal joint spaces. The digital arteries of the fifth digit isonly visualized to the mid first phalanx. The visualized portion of the distal ulnar artery is diminutive with lossof the definitive vessel lumen at the level of the ulnar styloid. Thesuperficial palmar arch is incomplete with supply via a diminutive ulnar artery andlikely termination the fourth metacarpal with a questionable small diminutivebranch extending to the radial artery. IMPRESSION IMPRESSION: 1. The distal ulnar artery at the level of the carpal bones is eitherextremely stenotic or occluded. 2. The radial artery supplies the deep palmar arch which terminates atthe level of the fourth metacarpal with a possible small communicating vesselto the distal ulnar artery. 3. The superficial palmar arches diminutive throughout and likelyincomplete terminating in the region of the fourth metacarpal. There is aquestionable thin communicating vessel to the radial artery. 4. Poor visualization of the distal digital arteries is possiblysecondary to vasospasm in the setting of Raynauds. If MRA images are not adequate for surgical planning, consider referral to interventional radiology fordiagnostic angiogram. Andre Marroquin MD [facility] MRI ORDERABLES documented in this encounter Visit Diagnoses Diagnosis Scleroderma Systemic sclerosis Raynaud's disease without gangrene Scleroderma Systemic sclerosis Raynaud's disease without gangrene Scleroderma Systemic sclerosis Raynaud's disease without gangrene documented in this encounter Care Teams Supervisor Cap And Hat Production Relationship Specialty Start Date End Date Niesha Gonzalez MD [address] [place] [address] PCP - General 03/27/12 11/27/18 documented as of this encounter
--- OUTSIDE RECORDS SUMMARY | 2024-09-14 13:11 | XMS_ITS | Encounter Summary ---
Author Organization [facility] [place] [address] Care Team Providers Care Forming Roll Operator Name Role Phone Yaritza Pierre MD Primary Care Provider [phone] Encounter Details Date Type Department Care Team (Late st Contact Info) Description 03/01/2016 Orders [place] [address] Danisha Slade Social History Tobacco Use Types Packs/Day Years [...] AM EST Office Visit Dermatology at [facility] [address] [place] [address] Jo Ordaz MD [facility] [place] [address] 12/13/2024 11:30 AM EST Appointment [place] [address] 12/13/2024 1:00 PM EST Office [place] [address] Kiet Pardo MD [facility] [place] [address] documented as of this encounter Visit Diagnoses Not on filedocumented in this encounter Care Teams Forming Roll Operator Relationship Specialty Start Date End Date Yaritza Pierre MD [address] [place] [address] PCP - General 03/27/12 11/27/18 documented as of this encounter
--- OUTSIDE RECORDS SUMMARY | 2024-09-14 13:11 | XMS_ITS | Encounter Summary ---
Author Organization [facility] [place] [address] Care Team Providers Care Clerk Telegraph Service Name Role Phone Yaritza Pierre MD Primary Care Provider [phone] Reason for Visit * Reason Onset Date Comments Medication Refill 03/05/2015 Encounter Details Date Type Department Care Team (Late st Contact Info) Description 03/05/2015 [place] [address] Gem Richey, RN Social History Tobacco Use [...] AM EST Office Visit Dermatology at [facility] [address] [place] [address] Jo Ordaz MD [facility] [place] [address] 12/13/2024 11:30 AM EST [place] [phone] 12/13/2024 1:00 PM EST [place] [phone] Kiet Pardo MD [facility] [place] [address] documented as of this encounter Visit Diagnoses Not on filedocumented in this encounter Care Teams Clerk Telegraph Service Relationship Specialty Start Date End Date Yaritza Pierre MD [address] [place] [id number] PCP - General 03/27/12 11/27/18 documented as of this encounter
--- OUTSIDE RECORDS SUMMARY | 2024-09-14 13:11 | XMS_ITS | Encounter Summary ---
Author Organization [facility] [place] [address] Care Team Providers Care Printing Supervisor Name Role Phone Yaritza Pierre MD Primary Care Provider [phone] Reason for Referral * Consultation (Routine) - Closed Specialty Diagnoses / Procedures Referred By Wander hernandez Referred To Contact General Surgery Diagnoses Fecal incontinence Evelyn Miller APRN [facility] [place] [place] [address] [facility] Gen Surgery [address] [place] [address] Referral ID Status Reason Start Date Expiration Date V isits Requested Visits Authorized [id number] Closed Consult, Test & Treat 11/11/2015 11/10/2016 1 1 Encounter Details Date Type Department Care Team (Late st Contact Info) Description 11/11/2015 Orders [place] [address] Evelyn Miller ASSEMBLING MOTOR BUILDER [facility] [place] [place] [address] Fecal incontinence Social History Tobacco Use Types [...] Upcoming Encounters Date Type Department Care Team ([facility] st Contact Info) Description 10/07/2024 11:30 AM EST Office Visit Dermatology at [facility] [address] [place] [address] Jo Ordaz MD [facility] [place] [address] 12/13/2024 11:30 AM EST Appointment [place] [address] 12/13/2024 1:00 PM EST Office [place] [address] Kiet Pardo MD [facility] [place] [address] Scheduled Referrals Name Type Priority Associated Diagnoses Orde r Schedule Referral to Colorectal Surgery Outpatient Referral Routine Fecal incontinence Ordered: 11/11/2015 documented as of this encounter Visit Diagnoses Diagnosis Fecal incontinence Full incontinence of feces documented in this encounter Care Teams Printing Supervisor Relationship Specialty Start Date End Date Yaritza Pierre MD [address] [place] [address] PCP - General 03/27/12 11/27/18 documented as of this encounter
--- OUTSIDE RECORDS SUMMARY | 2024-09-14 13:11 | XMS_ITS | Encounter Summary ---
[place] [address] Care Team Providers Care Occupational Ther Name Role Phone Yaritza Pierre MD Primary Care Provider [phone] Encounter Details Date Type Department Care Team (Late st Contact Info) Description 02/10/2016 Telephone [place] [phone] Randa Garcia RN NEPHROLOGY HYPERTENSION Social History Tobacco Use Types Packs/Day Years [...] encounter Miscellaneous Notes * Telephone Encounter - Randa Garcia RN - 02/10/2016 9:43 AM EDT S/O: Telephone call to pt per Dr Sawyer who received an e-mail from patient which stated she hada few high blood pressures at home. Spoke with Mike, her S/O. He states she is at [facility] having labs today, she has an appt with Dr Pierre on [place]. He states she has not been feeling well this week. He would ask her to return my call. Amber returned the call. She states she had a cold for one month and she stopped skiing and gained some weight. Blood pressure was high only during the weekend, but it is fine now. She was told her cholesterol and LDL was high last week. She changed her diet, now following a low salt and low fat diet. She has returned to exercising, walking 2 miles. She has an appointment with her PCP on 02/12/16. Discussed lab results. She has been eating cantaloupe and avocados for the fiber. She is aware of all the high potassium foods and will make substitutions. Results for AMBER DAWSON ( ) Ref. Range 05/27/2015 08:24 09/18/2015 10:22 02/10/2016 00:00 Sodium Latest Ref Range: 137-147 139 138 (Ext) Potassium Latest Ref Range: 3.4-5.3 4.3 5.7 (Ext) Chloride Latest Ref Range: 99-108 103 101 (Ext) CO2 Latest Ref Range: 22-29 23 28 (Ext) Anion Gap Latest Ref Range: 5-15 mmol/L 13 BUN Unknown 31 (H) 33 (Ext) Creatinine Unknown 1.43 (H) 1.40 (H) 1.29 (Ext) Estimated GFR Unknown 38 (L) 39 (L) 43 (Ext) Glucose Lvl Unknown 97 79 (Ext) Calcium Latest Ref Range: 8.7-10.7 9.7 9.4 (Ext) A: Pt with high blood pressures at home over the weekend, more concerned about elevated cholesterollevel. P: She will follow up with her PCP on 02/12/16. Appointment made with Dr Sawyer on 04/14/16, coordinated with other office visits she has on that day. documented in this encounter Plan of Treatment Upcoming Encounters Date Type Department Care Team (Late st Contact Info) Description 10/07/2024 11:30 AM EST Office Visit Dermatology at [facility] [address] [place] [address] Jo Ordaz MD [facility] [address] 12/13/2024 11:30 AM EST Appointment [place] [address] 12/13/2024 1:00 PM EST Office [place] [address] Kiet Pardo MD [facility] [place] [address] documented as of this encounter Procedures Procedure Name Priority Date/Time Associated Diagnosis Comments EXTERNAL LAB CBC CMP THYROID RESULTS PANEL Routine 02/10/2016 documented in this encounter Results * (ABNORMAL) CBC / CMP / Thyroid External Results (02/10/2016) Sodium 138([facility]) 137 - 147 Potassium 5.7([facility]) 3.4 - 5.3 Chloride 101([facility]) 99 - 108 Carbon Dioxide 28(Externa l Lab) 22 - 29 Blood Urea Nitrogen 33(Externa l Lab) Creatinine 1.29(Exter nal Lab) Est Glomerular Filtration Rate 43(Externa l Lab) Glucose 79(Externa l Lab) Calcium 9.4([facility]) 8.7 - 10.7 Historical Provider EXTERNAL LAB MIAH GUAMAN documented in this encounter Visit Diagnoses Not on filedocumented in this encounter Care Teams Occupational Ther Relationship Specialty Start Date End Date Yaritza Pierre MD [address] [place] [address] PCP - General 03/27/12 11/27/18 documented as of this encounter
--- OUTSIDE RECORDS SUMMARY | 2024-09-14 13:11 | XMS_ITS | Encounter Summary ---
Author Organization [facility] [place] [address] Care Team Providers Care Rail Gang Supervisor Name Role Phone Yaritza Pierre MD Primary Care Provider [phone] Reason for Visit * Reason Onset Date Comments Medication Refill 02/26/2015 Encounter Details Date Type Department Care Team (Late st Contact Info) Description 02/26/2015 Refill [place] [address] uY Mcdonough, [facility] [place] [address] Social History Tobacco Use Types Packs/Day Years [...] [facility] [address] [place] [address] Jo Ordaz MD [facility] [place] [address] 12/13/2024 11:30 AM EST Appointment Pulmonology at [place] [phone] 12/13/2024 1:00 PM EST Office Visit [place] [phone] Kiet Pardo MD [facility] [place] [address] documented as of this encounter Visit Diagnoses Not on filedocumented in this encounter Care Teams Rail Gang Supervisor Relationship Specialty Start Date End Date Yaritza Pierre MD [address] [place] [address] PCP - General 03/27/12 11/27/18 documented as of this encounter
--- OUTSIDE RECORDS SUMMARY | 2024-09-14 13:11 | XMS_ITS | Encounter Summary ---
Author Organization Formerly [facility], [facility] Address [facility] [place] [address] Care Team Providers Care Hand Salter Name Role Phone Yaritza Pierre MD Primary Care Provider [phone] Encounter Details Date Type Department Care Team (Latest Contact Info) Description 04/14/2015 4:49 PM EDT - 04/14/2015 11:59 PM EDT Hospital Encounter XRay at [address] [place] [address] Constipation, unspecified constipation type Social History Tobacco Use Types Packs/Day [...] Sig Dispensed Refills Start Date End Date cholecalciferol, Vitamin D3, 25 mcg (1,000 unit) Capsule Take 1 tablet by mouth daily. nitroGLYcerin (NITROGLYN) 2 % ointment Place 0.5 inches onto the skin every 6 hours. sildenafil (REVATIO) 20 mg Tablet Take 1 tablet by mouth 3 times daily. 270 tablet 3 03/05/2015 09/15/2015 METHYLCELLULOSE (CITRUCEL ORAL) Take 1 tablet by mouth daily. 05/27/2015 esomeprazole (NEXIUM) 40 mg Capsule, Delayed Release(E.C.)Indica tions:CKD (chronic kidney disease) stage 3, GFR 30-59 ml/min,Scleroderma, CKD (chronic kidney disease) Take 1 capsule by mouth 2 times daily. 180 capsule 1 12/26/2014 05/27/2015 bisacodyl (DULCOLAX) [address] 1 suppository rectally daily. 60 suppository 3 11/03/2014 10/13/2015 amLODIPine (NORVASC) 5 mg Tablet Take 4 tablets by mouth daily. 360 tablet 3 09/22/2014 05/27/2015 fosinopril (MONOPRIL) 40 mg tabletIndications:S cleroderma,CKD (chronic kidney disease) stage 3, GFR 30-59 ml/min Take 1 tablet by mouth 2 times daily. 180 tablet 3 03/26/2014 05/27/2015 lidocaine-prilocain e (EMLA) cream Apply topically as needed. 30 g 2 05/21/2013 01/09/2020 Acetaminophen 650 mg Tab Take 650 mg by mouth daily as needed. 05/18/2011 09/23/2016 documented as of this encounter Plan of Treatment Upcoming Encounters Date Type Department Care Team (Late st Contact Info) Description 10/07/2024 11:30 AM EST Office Visit Dermatology at [address] [address] Jo Ordaz MD [facility] [place] [address] 12/13/2024 11:30 AM EST Appointment [place] [phone] 12/13/2024 1:00 PM EST Office [place] [phone] Kiet Pardo MD [facility] [address] documented as of this encounter Procedures Procedure Name Priority Date/Time Associated Diagnosis Comments XR ABDOMEN 1 VIEW Routine 04/14/2015 4:5 9 PM EDT Constipation, unspecified constipation type documented in this encounter Results * XR abdomen 1 view (04/14/2015 4:59 PM EDT) Anatomical Region Laterality Modality Abdomen N/A Radiographic Jennifer ging 04/14/2015 4:59 PM EDT Impressions 04/14/2015 5:18 PM EDT IMPRESSION: Moderate amount of stool throughout a nondistended colon as described above. Narrative 04/14/2015 5:18 PM EDT EXAMINATION: ABDOMEN SINGLE VIEW CLINICAL HISTORY: Question constipation TECHNIQUE: AP supine abdomen COMPARISON: 11/03/2014. FINDINGS: There is a moderate amount of stool present throughout a nondistended colon from cecum to rectum. No dilated loops of small bowel are seen. In the appropriate clinical setting, these findings could be consistent with constipation. No evidence of bowel obstruction. No abnormal calcifications are seen. The bony structures are within normal limits for age. Procedure Note Daniel Rodriguez MD - 04/14/2015 EXAMINATION: ABDOMEN SINGLE VIEW CLINICAL HISTORY: Question constipation TECHNIQUE: AP supine abdomen COMPARISON: 11/03/2014. FINDINGS: There is a moderate amount of stool present throughout a nondistendedcolon from cecum to rectum. No dilated loops of small bowel are seen. In theappropriate clinical setting, these findings could be consistent with constipation.No evidence of bowel obstruction. No abnormal calcifications are seen. Thebony structures are within normal limits for age. IMPRESSION IMPRESSION: Moderate amount of stool throughout a nondistended colon as describedabove. Sumit Lucas MD IMG DX ORDERABLES documented in this encounter Visit Diagnoses Diagnosis Constipation, unspecified constipation type documented in this encounter Care Teams Hand Salter Relationship Specialty Start Date End Date Yaritza Pierre MD [address] [place] [id number] PCP - General 03/27/12 11/27/18 documented as of this encounter
--- OUTSIDE RECORDS SUMMARY | 2024-09-14 13:11 | XMS_ITS | Encounter Summary ---
Author Organization [facility] [place] [address] Care Team Providers Care Assistant Director Of Public Works Name Role Phone Yaritza Pierre MD Primary Care Provider [phone] Encounter Details Date Type Department Care Team (Late st Contact Info) Description 04/14/2015 4:00 PM EDT Follow-Up Gastroenterology at [facility] [place] [address] Evelyn Miller APRN [facility] [place] [address] Constipation, unspecified constipation type Discharge Disposition: Home Social History Tobacco Use [...] Sign Reading Time Taken Comments Blood Pressure 121/71 04/14/2015 4:15 PM EDT Pulse 80 04/14/2015 4:15 PM EDT Temperature - - Respiratory Rate - - Oxygen Saturation - - Inhaled Oxygen Concentration - - Weight 64.9 kg (143 lb) 04/14/2015 4:15 PM EDT Height 170.2 cm (5' 7) 04/14/2015 4:15 PM EDT Body Mass Index 22.4 04/14/2015 4:15 PM EDT documented in this encounter Patient Instructions * Patient Instructions* Evelyn Miller APRN - 04/14/2015 4:33 PM EDT 1. Abdominal x-ray today 2. Stop Metamucil 3. Imodium 1/2-1 (1 mg- 2 mg) tablet after first bowel movement of the day 4. Dulcolax 10 mg suppository daily as needed 5. Continue physical therapy exercises 6. Call or email with an update in 2-3 weeks 7. Follow up June 15, 2015 Evelyn Miller APRN documented in this encounter Progress Notes * Evelyn Miller APRN - 04/14/2015 4:12 PM EDT Subjective: Patient ID: Amber Wells is a 54 y.o. woman who presents for follow up of her gastrointestinalsymptoms. GI Problem List: 1. Altered bowel habits: --KUB 11/03/2014: 1. Nonobstructive bowel gas pattern 2. Stool seen throughout the colon. --Colonoscopy 04/04/13: entire colon normal 2. Pelvic floor dysfunction: Anal manometry 12/09/14: 1. Low anal canal pressures. 2. Weak EAS resting pressure. 3. Excellent EAS squeeze pressures. 4. Normal RAIR rules out Hirschsprung's disease. 5. Evidence of mild rectal hypersensitivity given low MTV. 6. Abnormal balloon expulsion test. 3. GERD: --Prilosec 40 mg BID HPI Comments: Amber Wells is a pleasant 54 year old woman with a history significant for systemic sclerosis, Raynaud's, sclerodactyly, h/o scleroderma renal crisis resulting in stage 3 CKD and GERD who presents for follow up of her altered bowel habits. She reports some improvement of her bowel habits over the past two weeks. Stools are more formed and less flat. She attributes to the improvement of her stools secondary to changing how she performs the exercises per PT. She has found working with PT quite helpful. She reports having a bowel movement twice day. She will go a second time after exercising. It is a good bowel movement. She will be incontinent of stool an hour later. She has noted some stool in herrectum after placing a finger in her rectum to check. She denies manual disimpaction. Periodically will experience incontinence later in the day. No nocturnal symptoms. She took Metamucil BID but stools became looser and decreased to qd with an improvement. She reports that gas and bloating improved after course of antibiotics. GERD symptoms are well controlled on Nexium 40 mg BID. No nocturnal symptoms. Weight stable. Denies dysphagia, odynophagia, chest pain, ENT concerns, nausea, vomiting, gas, early satiety, postprandial fullness, pre prandial symptoms, abdominal pain or cramping. Review of Systems Constitutional: Negative. HENT: Negative. Respiratory: Negative. Cardiovascular: Negative. Gastrointestinal: See HPI Endocrine: Negative. Musculoskeletal: Positive for joint swelling. Negative for myalgias, back pain, arthralgias, gait problem, neck pain and neck stiffness. Allergic/Immunologic: Negative. Negative for environmental allergies, food allergies and immunocompromised state. H/o Scleroderma and Raynaud's disease. Neurological: Negative. Hematological: Negative. Psychiatric/Behavioral: Negative. Allergies: NKDA Current Outpatient Prescriptions on File Prior to Visit Medication Sig Dispense Refill ??? sildenafil (REVATIO) 20 mg Tablet Take 1 tablet by mouth 3 times daily. 270 tablet 3 ??? cephALEXin (KEFLEX) 250 mg Capsule Take 1 capsule by mouth 4 times daily. 40 capsule 0 ??? METHYLCELLULOSE (CITRUCEL ORAL) Take 1 tablet by mouth daily. ??? esomeprazole (NEXIUM) 40 mg Capsule, Delayed Release(E.C.) Take 1 capsule by mouth 2 times daily. 180 capsule 1 ??? bisacodyl (DULCOLAX) [address] 1 suppository rectally daily. 60 suppository 3 ??? amLODIPine (NORVASC) 5 mg Tablet Take 4 tablets by mouth daily. 360 tablet 3 ??? fosinopril (MONOPRIL) 40 mg tablet Take 1 tablet by mouth 2 times daily. 180 tablet 3 ??? lidocaine-prilocaine (EMLA) cream Apply topically as needed. 30 g 2 ??? Cholecalciferol, Vitamin D3, (VITAMIN D) 1,000 unit Cap Take 1 tablet by mouth daily. ??? Acetaminophen 650 mg Tab Take 650 mg by mouth daily as needed. ??? Vitamin E 200 unit Tab Take 400 Int'l Units by mouth daily. ??? nitroGLYcerin (NITROGLYN) 2 % ointment Place 0.5 inches onto the skin every 6 hours. No current facility-administered medications on file prior to visit. Past Medical History Diagnosis Date ??? Arthritis [...] of spindle cell tumor of the back Vital Signs: BP 121/71; P 80; Wt 142 lbs; Ht 5'7 Objective: Physical Exam Constitutional: She is oriented to person, place, and time. She appears well- developed and well-nourished. No distress. Neurological: She is alert and oriented to person, place, and time. Skin: She is not diaphoretic. Psychiatric: She has a normal mood and affect. Her behavior is normal. Judgment and thought contentnormal. Vitals reviewed. Assessment and Plan: 1. Altered bowel habits: question constipation. Will obtain a KUB today. If no constipation noted on KUB then recommend Imodium 1/2-1 tablet after first BM of the day. If KUB reveals constipation then will have restart Amitiza 24 mcg qam and email with an update in 7 days. She can use Dulcolax 10 mg OH qd prn. Recommend stopping Metamucil. Continue to follow PT's recommendations. Consider Sitz Marker study. Consider referral to colorectal surgery. Consider MR defecography. Consider MRE to evaluate small bowel. 2. Gas/bloating: improved at this time. Consider HBT to evaluate for SIBO if bloating returns. 3. GERD: symptoms remains well controlled on Nexium 40 mg BID. Recommend EGD with biopsies and she would prefer having this done locally and will discuss with her PCP. Consider Ortega ph study. Consider esophageal manometry. I did my best to answer all of her questions. The following plan was formulated. Plan: 1. KUB today 2. Stop Metamucil 3. Consider Imodium 1/2-1 (1 mg- 2 mg) tablet after first bowel movement of the day 4. Dulcolax 10 mg OH qd prn 5. Continue with PT's recommendations 6. Call or email with an update in 2-3 weeks 7. Follow up 06/15/15 Patient understands and is agreeable to the above plan. Written instructions provided. Evelyn Miller APRN Section of Gastroenterology and Hepatology [place], [place] [id number] documented in this encounter Plan of Treatment Upcoming Encounters Date Type Department Care Team (Late st Contact Info) Description 10/07/2024 11:30 AM EST Office Visit Dermatology at [place] [address] [place] [address] Jo Odraz MD [facility] [place] [address] 12/13/2024 11:30 AM EST Appointment [place] [phone] 12/13/2024 1:00 PM EST Office [place] [phone] Kiet Pardo MD [facility] [place] [address] documented as of this encounter Results * XR abdomen 1 [...] Visit Diagnoses Diagnosis Constipation, unspecified constipation type Constipation, unspecified constipation type documented in this encounter Care Teams Assistant Director Of Public Works Relationship Specialty Start Date End Date Yaritza Pierre MD [address] [place] [id number] PCP - General 03/27/12 11/27/18 documented as of this encounter
--- OUTSIDE RECORDS SUMMARY | 2024-09-14 13:11 | XMS_ITS | Encounter Summary ---
[place] [address] Care Team Providers Care Design Center Consultant Name Role Phone Yaritza Pierre MD Primary Care Provider [phone] Encounter Details Date Type Department Care Team (Late st Contact Info) Description 02/23/2015 Telephone [place] [phone] Kalli Abraham RN Social History Tobacco Use Types Packs/Day [...] encounter Miscellaneous Notes * Telephone Encounter - Kalli Abraham RN - 02/23/2015 3:42 PM EDT Medication:xifaxan 550mg tid for 10 days Pharmacy & Phone#: [facility] [phone] Insurance & Phone #:[phone] ID #: [id number] Trialed (dosage, frequency): keflex,flagyl,dicicloxicillin Amitiza, citrucel,miralax,dulcolax Notes: PA faxed , awaiting response. documented in this encounter Plan of Treatment Upcoming Encounters Date Type Department Care Team (Late st Contact Info) Description 10/07/2024 11:30 AM EST Office Visit Dermatology at [facility] [address] [place] [address] Jo Ordaz MD [facility] [place] [address] 12/13/2024 11:30 AM EST Appointment [place] [phone] 12/13/2024 1:00 PM EST Office [place] [phone] Kiet Pardo MD [facility] [place] [address] documented as of this encounter Visit Diagnoses Not on filedocumented in this encounter Care Teams Design Center Consultant Relationship Specialty Start Date End Date Yaritza Pierre MD [address] [place] [id number] PCP - General 03/27/12 11/27/18 documented as of this encounter
--- OUTSIDE RECORDS SUMMARY | 2024-09-14 13:11 | XMS_ITS | Encounter Summary ---
Author Organization [facility] Address [facility] [place] [address] Care Team Providers Care Extraction Supervisor Name Role Phone Yaritza Pierre MD Primary Care Provider [phone] Encounter Details Date Type Department Care Team (Late st Contact Info) Description 04/14/2015 11:00 AM EDT Follow-Up Physical Therapy at [address] [address] Xuan Laird, PT [facility] [place] [address] Sumit Lucas MD [facility] [place] [address] Other disorder of muscle, ligament, and fascia Discharge Disposition: Home Social History Tobacco Use [...] as of this encounter Progress Notes * Xuan Laird, PT - 04/14/2015 11:04 AM EDT Physical Therapy Progress Note Total treatment time: 50 minutes Total timed code treatment: 50 minutes Date of Exam/First Treatment: 12/09/2014 Date of onset: May 2014 Referring Provider: Sumit Lucas MD, Evelyn Miller APRN Diagnosis: 1. Other disorder of muscle, ligament, and fascia Goals: Short term goals (4 weeks) 1. Patient to be indep in the performance of a home program of pelvic floor muscle exercises on a daily basis. met 2. Patient will demonstrate a consistent pelvic floor muscle contraction with full voluntary relaxation. met 3. Patient to complete SEMG evaluation. met 4. Patient will demonstrate knowledge of toilet positioning and techniques to improve bowel emptying. met Goals: [facility] goals (3 months) progressing towards 1. Patient will reduce symptoms of constipation by 20%. 2. Patient will have resting rate of <5 uV on SEMG with internal electrode. 3. Patient will be independent with ongoing self management and treatment regimen including hot bath, stretching, toilet positioning and techniques, and bowel routine. S: Patient reports she is much more aware of her insides and being able to relax her pelvic floor muscles. She has been tighten her pelvic floor muscles for 5 seconds and focusing on for fully relaxing the muscles. After doing ~20 of these exercises, she will have a bowel movement in ~30 minutes afterwards and the stool is normal shaped, not ribbon or flat. Notes there is a small amount of stool that does not come out that is ~1 inch up the rectum. She may have fecal staining or leakage later that day. She has decreased the amount of citrucel she takes to 1x/day and eats fiber cereal. She has continued to be consistent with the HEP and feels the pelvic floor muscles are stronger and more aware of relaxing the muscles. She has stopped suppository and taking the miraLAX. Overall, she is very pleased with the PT and her progress. O: Treatment: neuro re-ed x 3 Previous session: 02/17/15 Patient gives verbal consent to external and internal exam. External Exam: Introitus: closed at rest, tight, symmetric, atrophic signs Introitus: perineal lift with cough Pelvic Floor Contraction: moderate levator ani activity with perineal body elevation, without LE, gluteal and abdominal overflow Valsalva: moderate pelvic floor excursion with signs of anterior and posterior laxity, with cues Palpation: Non-tender to pelvic clock Internal Exam: Levator ani muscle strength: 3:00 4/5, 6:00 4/5, and 9:00 4/5, complete derecruitment Levator ani muscle tone: 4/5, muscle tension with diffuse discomfort Hold Time: 10 seconds, # of reps: >5 Valsalva: mild, moderate pelvic floor excursion with signs of anterior and posterior laxity Rectal Exam: External anal sphincter: strength 3+/5, tone: 2/5, puborectalis muscle tension, hold time: 10 seconds, Valsalva: mild to moderate pelvic floor excursion, without muscle contraction SEMG: with internal rectal electrode in supine: Resting Rate: 5 uV, decreased to 2 uV during exercise Long Hold: 35 uV x 10 seconds x 20 reps Today: Patient gives verbal consent to external and internal exam. External Exam: Introitus: closed at rest, tight, symmetric, atrophic signs Introitus: perineal lift with cough Pelvic Floor Contraction: moderate levator ani activity with perineal body elevation, without LE, gluteal and abdominal overflow Valsalva: moderate pelvic floor excursion with signs of anterior and posterior laxity, with cues Palpation: Non-tender to pelvic clock Internal Exam: Levator ani muscle strength: 3:00 4/5, 6:00 4/5, and 9:00 4/5, complete derecruitment Levator ani muscle tone: 4/5, muscle tension with diffuse discomfort Hold Time: 10 seconds, # of reps: >5 Valsalva: mild, moderate pelvic floor excursion with signs of anterior and posterior laxity Rectal Exam: External anal sphincter: strength 4/5, tone: 3/5, without puborectalis muscle tension, hold time: 10 seconds, Valsalva: mild to moderate pelvic floor excursion, without muscle contraction SEMG: with internal rectal electrode in supine: Resting Rate: 7 uV, decreased to 2 uV during exercise Long Hold: 40 uV x ~5 to 10 seconds x ~20 reps manual techniques: internal rectal puborectalis manual stretch (brief) relaxation/downtraining: SEMG resting rate: 1 uV education for a trial manual splinting/support with BM, review toilet positioning and techniques discussion of pelvic floor muscle training with goal of full derecruitment, muscle relaxation and checking in with pelvic floor muscles during the day to make pelvic floor muscles heavy/relaxeds Review and progress HEP: toilet positioning and techniques, manual splinting, diaphragmatic breathing, periodic relaxation checks during the day and pelvic floor muscle exercises: LH 10 seconds with submaximal contraction, rest 10 seconds with focus on full relaxation, x 20 reps to fatigue, 2 sessions/day A: Overactive pelvic floor muscles with muscle spasm, pelvic floor dysfunction, constipation and fecal incontinence. Patient performs a good voluntary pelvic floor muscle contraction with consistent voluntary relaxation and demonstrates good awareness of pelvic floor muscle relaxation. Patient demonstrates decreased resting rate on SEMG and awareness and understanding of pelvic floor muscle relaxation. Patient reports improved bowel emptying with normal shaped stool. P: Recheck in 8 weeks. Patient to continue with HEP on her own. Patient knows to contact me with any questions or concerns. documented in this encounter Plan of Treatment Upcoming Encounters Date Type Department Care Team (Late st Contact Info) Description 10/07/2024 11:30 AM EST Office Visit Dermatology at [address] [address] Jo Ordaz MD [facility] [place] [address] 12/13/2024 11:30 AM EST Appointment [place] [phone] 12/13/2024 1:00 PM EST Office [place] [address] Kiet Pardo MD [facility] [place] [address] documented as of this encounter Visit Diagnoses Diagnosis Other disorder of muscle, ligament, and fascia documented in this encounter Care Teams Extraction Supervisor Relationship Specialty Start Date End Date Yaritza Pierre MD [address] [place] [id number] PCP - General 5/8/12 1/8/19 documented as of this encounter
--- OUTSIDE RECORDS SUMMARY | 2024-09-14 13:11 | XMS_ITS | Encounter Summary ---
Author Organization [facility] [place] [address] Care Team Providers Care Elementary Supervisor Name Role Phone Yaritza Pierre MD Primary Care Provider [phone] Reason for Visit * MRI/CAT Scan (Routine) - Closed Specialty Diagnoses / Procedures Referred By Wander hernandez Referred To Contact Radiology Diagnoses Neoplasm of uncertain behavior of connective and other soft tissue Procedures PRG MRI UPPER EXTREMITY W/O&W CONTRAST Breanna Ordoñez MD [facility] [place] [address] [place] [address] Referral ID Status Reason Start Date Expiration Date Visits Re quested Visits Authorized [id number] Closed 09/16/2015 11/15/2015 1 1 Encounter Details Date Type Department Care Team (Late st Contact Info) Description 09/18/2015 10:44 AM EDT - 09/18/2015 11:59 PM EDT Hospital [place] [address] Breanna Ordoñez MD [facility] [place] [address] Discharge Disposition: Home Social History [...] Sig Dispensed Refills Start Date End Date vitamin E 400 unit Capsule Take 400 Units by mouth daily. cholecalciferol, Vitamin D3, 25 mcg (1,000 unit) Capsule Take 1 tablet by mouth daily. nitroGLYcerin (NITROGLYN) 2 % ointment Place 0.5 inches onto the skin every 6 hours. sildenafil (REVATIO) 20 mg Tablet Take 1 tablet by mouth 5 times daily. 450 tablet 3 09/15/2015 12/10/2015 fosinopril (MONOPRIL) 40 mg TabletIndications:S cleroderma,CKD (chronic kidney disease) stage 3, GFR 30-59 ml/min Take 1 tablet by mouth daily. 90 tablet 3 05/27/2015 03/22/2016 esomeprazole (NEXIUM) 40 mg Capsule, Delayed Release(E.C.)Indica tions:CKD (chronic kidney disease) stage 3, GFR 30-59 ml/min,Scleroderma, CKD (chronic kidney disease), stage 3 (moderate) Take 1 capsule by mouth 2 times daily. 180 capsule 3 05/27/2015 03/22/2016 bisacodyl (DULCOLAX) [address] 1 suppository rectally daily. 60 suppository 3 11/03/2014 10/13/2015 lidocaine-prilocain e (EMLA) cream Apply topically as needed. 30 g 2 05/21/2013 01/09/2020 Acetaminophen 650 mg Tab Take 650 mg by mouth daily as needed. 05/18/2011 09/23/2016 documented as of this encounter Plan of Treatment Upcoming Encounters Date Type Department Care Team (Late st Contact Info) Description 10/07/2024 11:30 AM EST Office Visit Dermatology at [facility] [address] [place] [phone] Jo Ordaz MD [facility] [place] [address] 12/13/2024 11:30 AM EST Appointment [place] [address] 12/13/2024 1:00 PM EST Office [place] [address] Kiet Pardo MD [facility] RHEUMATOLOGY [place], [place] [id number] documented as of this encounter Procedures Procedure Name Priority Date/Time Associated Diagnosis Comments MRI UPPER EXTREMITY NON JOINT WITH/WO CONTRAST Routine 09/18/2015 1:21 PM EDT Desmoid documented in this encounter Visit Diagnoses Not on filedocumented in this encounter Administered Medications Inactive Administered Medications - up to 3 most recent administrations Medication Order MAR Action Action Date Dose Rate Site gadobutrol (GADAVIST) 1 mMol/mL injection 6.3 mL 6.3 mL (0.1 mL/kg/dose ? 63 kg Order-specific weight), Intravenous, ONCE PRN, 1 dose, Starting on Mon09/18/15 at 1239, Until Mon09/18/15 at 1253, Per Protocol, Routine Given 09/18/2015 12:53 PM EDT 6 mLs documented in this encounter Care Teams Elementary Supervisor Relationship Specialty Start Date End Date Yaritza Pierre MD [address] [place] [id number] PCP - General 03/27/12 11/27/18 documented as of this encounter
--- OUTSIDE RECORDS SUMMARY | 2024-09-14 13:11 | XMS_ITS | Encounter Summary ---
Author Organization [facility] [place] [address] Care Team Providers Care Continuity Manager Name Role Phone Yaritza Pierre MD Primary Care Provider [phone] Reason for Visit * Reason Comments Follow-up Encounter Details Date Type Department Care Team (Late st Contact Info) Description 06/12/2015 9:05 AM EDT Follow-Up Gastroenterology at [facility] [place] [address] Evelyn Miller APRN [facility] [place] [address] Altered bowel habits Discharge Disposition: Home Social History Tobacco Use [...] Sign Reading Time Taken Comments Blood Pressure 122/76 06/12/2015 9:09 AM EDT Pulse 82 06/12/2015 9:09 AM EDT Temperature - - Respiratory Rate - - Oxygen Saturation - - Inhaled Oxygen Concentration - - Weight 63.5 kg (140 lb) 06/12/2015 9:09 AM EDT Height 170.2 cm (5' 7) 06/12/2015 9:09 AM EDT Body Mass Index 21.93 06/12/2015 9:09 AM EDT documented in this encounter Patient Instructions * Patient Instructions* Evelyn Miller APRN - 06/12/2015 9:41 AM EDT 1. Sitz marker study and refer to instruction guide 2. After sitz marker study: Imodium 1/2-1 tablet (1 mg-2 mg) after first bowel movement of the day.Can repeat a dose later in the day. Maximum dosage 16 mg per day 3. Dulcolax 10 mg suppository daily as needed 4. Call or email with an update in 4 weeks 5. Follow up as needed Evelyn Miller APRN [phone] documented in this encounter Progress Notes * Evelyn Miller APRN - 06/12/2015 9:12 AM EDT Subjective: Patient ID: Amber Wells is a 55 y.o. woman who presents for follow up of her gastrointestinalsymptoms. GI Problem List: 1. Altered bowel habits: --KUB 04/14/15: Moderate amount of stool throughout a nondistended colon. --KUB 11/03/2014: 1. Nonobstructive bowel gas pattern [...] of her altered bowel habits. She reports that pelvic floor dysfunction improved with following PT's recommendations. Physical therapist also commentated on the fact that pelvic muscles had improved and discharged from PT at thistime. She will continue to perform the exercises. She reports having a bowel movement twice a day. She having a good bowel movement most mornings. She feels like she empties well most days. She endorses that some mornings, she does not completely empty and will suddenly have an urge to defecate. Periodically will be incontinent but this much improved compared to how it used to be since she started doing Kegel exercises on a regular basis. She reports performing Kegel exercises then will have a good bowel movement ten minutes later. No nocturnal fecal incontinence. No melena, hematochezia, rectal or anal pain. Notes less straining. She uses Dulcolax SD with good effect once a week. She has not required Amitiza, stool softener or Metamucil. She stopped Amitiza since it resulted elisha lot of diarrhea. She tried Citrucel but noted no benefit. She reports that gas and bloating improved [...] to Visit Medication Sig Dispense Refill ??? vitamin E 400 unit Capsule Take 400 Units by mouth daily. ??? fosinopril (MONOPRIL) 40 mg Tablet Take 1 tablet by mouth daily. 90 tablet 3 ??? esomeprazole (NEXIUM) 40 mg Capsule, Delayed Release(E.C.) Take 1 capsule by mouth 2 times daily. 180 capsule 3 ??? sildenafil (REVATIO) 20 mg Tablet Take 1 tablet by mouth 3 times daily. 270 tablet 3 ??? bisacodyl (DULCOLAX) [address] 1 suppository rectally daily. 60 suppository 3 ??? lidocaine-prilocaine (EMLA) cream Apply topically [...] ??? Neuromuscular disorder ??? Chronic kidney disease 2009 Dialysis AprilJun 2010, producing hemoglobin since ??? [...] tumor of the back Vital Signs: BP 122/76; P 82; Wt 140 lbs; Ht 5'7; BMI: 22 Objective: Physical Exam Constitutional: She is oriented to person, place, and time. She appears well- developed and well-nourished. No distress. Neurological: She is alert and oriented to person, place, and time. Skin: She is not diaphoretic. Psychiatric: She has a normal mood and affect. Her behavior is normal. Judgment and thought contentnormal. Vitals reviewed. Assessment and Plan: 1. Altered bowel habits: improvement of her bowel habits with adhering to exercises formulated by PT. Discussed with Amber that I questioned slow colon transit vs CIC and recommend Sitz marker study to evaluate colon transit time. She is amenable to this. She can continue to use Dulcolax 10 mg SD qd prn. Continue to follow PT's recommendations. Await results of Sitz marker study. Consider referral to colorectal surgery. Consider MR defecography. Consider MRE to evaluate small bowel. 2. GERD: symptoms remains well controlled on Nexium 40 mg BID. Recommend EGD with biopsies and she would prefer having this done locally and will discuss with her PCP. Consider Ortega ph study. Consider esophageal manometry. 3. Gas/bloating: remains improved at this time. Consider HBT to evaluate for SIBO if symptoms return. I did my best to answer all of her questions. The following plan was formulated. Plan: 1. Sitz marker study and instruction guide provided 2. Imodium 1/2-1 (1 mg- 2 mg) tablet after first bowel movement of the day 4. Dulcolax 10 mg SD qd prn 5. Call or email with an update in 4 weeks 6. Follow up prn Patient understands and is agreeable to the above plan. Written instructions provided. Evelyn Miller APRN Section of Gastroenterology and Hepatology [place], [place] [id number] documented in this encounter Plan of Treatment Upcoming Encounters Date Type Department Care Team (Late st Contact Info) Description 10/07/2024 11:30 AM EST Office Visit Dermatology at [facility] [address] [place] [address] Jo Ordaz MD [facility] [place] [address] 12/13/2024 11:30 AM EST Appointment [place] [phone] 12/13/2024 1:00 PM EST Office [place] [address] Kiet Pardo MD [facility] [place] [address] documented as of this encounter Visit Diagnoses Diagnosis Altered bowel habits Other symptoms involving digestive system documented in this encounter Care Teams Continuity Manager Relationship Specialty Start Date End Date Yaritza Pierre MD [address] [place] [id number] PCP - General 03/27/12 11/27/18 documented as of this encounter
--- OUTSIDE RECORDS SUMMARY | 2024-09-14 13:11 | XMS_ITS | Encounter Summary ---
Author Organization [facility] [place] [address] Care Team Providers Care Insurance Salesman Name Role Phone Yaritza Pierre MD Primary Care Provider [phone] Reason for Referral * Consultation (Routine) - Closed Specialty Diagnoses / Procedures Referred By Wander hernandez Referred To Contact Plastic Surgery Diagnoses Scleroderma Finger ulcer, limited to breakdown of skin Yu Mcdonough [facility] [address] Andre Marroquin MD [facility] [place] [place] [address] Referral ID Status Reason Start Date Expiration Date V isits Requested Visits Authorized [id number] Closed Consult, Test & Treat 01/22/2016 01/21/2017 1 1 Encounter Details Date Type Department Care Team (Late st Contact Info) Description 01/22/2016 Orders [place] [address] Yu Mcdonough [facility] [address] Scleroderma; Finger ulcer, limited to breakdown of skin Social History Tobacco Use Types Packs/Day Years [...] 11:30 AM EST Office Visit Dermatology at [address] [address] Jo Ordaz MD [facility] [place] [address] 12/13/2024 11:30 AM EST Appointment [place] [address] 12/13/2024 1:00 PM EST Office [place] [phone] Kiet Pardo MD [facility] [place] [address] Scheduled Referrals Name Type Priority Associated Diagnoses Orde r Schedule Referral to Plastic Surgery Outpatient Referral Routine Scleroderma Finger ulcer, limited to breakdown of skin Ordered: 01/22/2016 documented as of this encounter Visit Diagnoses Diagnosis Scleroderma Systemic sclerosis Finger ulcer, limited to breakdown of skin documented in this encounter Care Teams Insurance Salesman Relationship Specialty Start Date End Date Yaritza Pierre MD [address] [place] [id number] PCP - General 03/27/12 11/27/18 documented as of this encounter
--- OUTSIDE RECORDS SUMMARY | 2024-09-14 13:11 | XMS_ITS | Encounter Summary ---
Author Organization [facility] [place] [address] Care Team Providers Care [employer] Fishing [employer] Crewman Name Role Phone Yaritza Pierre MD Primary Care Provider [phone] Encounter Details Date Type Department Care Team (Latest Contact Info) Description 02/25/2016 11:30 AM EDT Office [place] [address] [place] [address] Gastroesophageal reflux disease, esophagitis presence not specified; Scleroderma; Other constipation; Chronic nausea; Abdominal bloating Social History Tobacco Use Types Packs/Day Years [...] Sign Reading Time Taken Comments Blood Pressure 134/71 02/25/2016 11:42 AM EDT Pulse 84 02/25/2016 11:42 AM EDT Temperature - - Respiratory Rate - - Oxygen Saturation - - Inhaled Oxygen Concentration - - Weight 63 kg (139 lb) 02/25/2016 11:42 AM EDT Height 170.2 cm (5' 7) 02/25/2016 11:42 AM EDT Body Mass Index 21.77 02/25/2016 11:42 AM EDT documented in this encounter Patient Instructions * Patient Instructions* Evelyn Miller APRN - 02/25/2016 12:09 PM EDT 1. Lab work today 2. Abdominal x-ray today 3. Upper endoscopy with biopsies 4. HR esophageal manometry 5. Gastroparesis diet 6. Recommend eating smaller more frequent 5-6 low fat meals per day 7. Antibiotic: Rifaximin 550 mg every 8 hours x 10 days 8. Nexium (esomeprazole) 40 mg twice a day 9. Nausea: Anant tablets 550 mg every 6 hours as needed; anant chews or tea 10. Imodium up to 16 mg per day as needed 11. Follow up with Dr Shayy Miller [employer] [phone] documented in this encounter Progress Notes * Evelyn Miller APRN - 02/25/2016 11:43 AM EDT Subjective: Patient ID: Amber Wells is a 55 y.o. woman who presents for follow up of her gastrointestinalsymptoms. GI Problem List: 1. Altered bowel habits/pelvic floor dyssynergia d/t systemic scleroderma: --Sitz marker study 05/2015: moderate amount of stool on day 5 but no Sitz markers identified. --KUB 04/14/15: Moderate amount of stool throughout a nondistended colon. --Medications tried: Amitiza 8 mcg qd-BID to qod: too effective Linaclotide: too effective Miralax: too effective --KUB 11/03/2014: 1. Nonobstructive bowel gas pattern 2. Stool seen throughout the colon. --Colonoscopy 04/04/13: entire colon normal 2. Fecal incontinence d/t systemic scleroderma: --Referred to Dr Morse for consultation for Solesta injections on 12/24/15 --Anal manometry 1/20/15: 1. Low anal canal pressures. 2. Weak EAS resting pressure. 3. Excellent EAS squeeze pressures. 4. Normal RAIR rules out Hirschsprung's disease. 5. Evidence of mild rectal hypersensitivity given low MTV. 6. Abnormal balloon expulsion test. 3. GERD: experiencing breakthrough GERD despite Nexium 40 mg BID --controlled on Esomeprazole 40 mg BID 4. Early satiety/postprandial fullness 5. Nausea HPI Comments: Amber Wells is a pleasant 54 year old woman with a history significant for systemic sclerosis, Raynaud's, sclerodactyly, h/o scleroderma renal crisis resulting in stage 3 CKD and GERD who presents for follow up of her altered bowel habits, fecal incontinence and early satiety/postprandial fullness. -Per Amber's email on 02/17/16, I've seen Dr Leija (surgeon) and I am waiting for rectal Solesta injections. ??Hopefully, this will help me. ??I am still taking 1 immodium of 2mg a day. ?? In the meantime, I have little worries. ??I had cholesterol checked a week ago at [facility] in [facility] and HDL (the bad cholesterol) was very high, around 182. ??I don't eat fat at all. Also, I am tired all the time, more than usual. I am feeling very full after a tiny meal, I have a taste in my mouth everyday and I am feeling Nausea all the time, I have bloading in my belly, and mybowel is still not so well. ??Also, I am in a menopause, big change of life. -She reports feeling like she has eaten a huge buffet every time she eats and her portions are small. -She reports feeling ok in the morning but after lunch tends to feel really full and uncomfortable the rest of the day. -She states even if I do not eat, I still feel full but its much worse every time I eat. -She reports that symptoms began two months ago. She reports feeling bloated and admits to intermittent distention. She reports normal gas. -She reports decreasing her intake of food secondary to early satiety and postprandial fullness. -She denies sitophobia. -She reports a bile taste, heartburn and regurgitation most days despite taking Nexium 40 mg BID. -She reports losing 4 lbs in the past week secondary to not eating as much because of symptoms. -She denies chest pain, dysphagia or odynophagia. -She reports feeling nauseous intermittently throughout the day. She denies vomiting or dry heaves. -She reports having a somewhat formed bowel movement once day. She takes Imodium 2 mg after first bowel movement of the day. -She reports less fecal incontinence with taking Imodium but still experiences a few episodes per day. If she does not take Imodium then will experience multiple episodes of fecal incontinence and small bowel movements. -She denies nocturnal symptoms. -She denies melena, hematochezia, mucus, steatorrhea, rectal or anal pain. Notes less straining. -She denies abdominal pain or cramping. -Remainder of ROS unremarkable. Review of Systems Constitutional: Negative. HENT: Negative. [...] tumor of the back Vital Signs: BP 134/71; P 84; Wt 140 lbs; Ht 5'7; BMI: 21.8 Objective: Physical Exam Constitutional: She is oriented to person, place, and time. She appears well- developed and well-nourished. No distress. Cardiovascular: Normal rate, regular rhythm, normal heart sounds and intact distal pulses. Exam reveals no gallop and no friction rub. No murmur heard. Pulmonary/Chest: Effort normal and breath sounds normal. No respiratory distress. She has no wheezes. She has no rales. She exhibits no tenderness. Abdominal: Soft. Bowel sounds are normal. She exhibits no distension and no mass. There is no tenderness. There is no rebound and no guarding. No hepatosplenomegaly, succussion splash or epigastric bruit. Neurological: She is alert and oriented to person, place, and time. Skin: She is not diaphoretic. Psychiatric: She has a normal mood and affect. Her behavior is normal. Judgment and thought contentnormal. Vitals reviewed. Assessment and Plan: 1. Altered bowel habits/pelvic floor dyssynergia: discussed continuing Imodium 1 tablet after firstBM since it reduces her episodes of fecal incontinence and frequency of bowel movements despite KUBrevealing mod-lg amount of constipation. She has tried fiber supplements, Miralax, Smooth Move tea,Amitiza and Linaclotide qd to qod, which resulted in worsening control of her bowel habits and fecal incontinence. Could consider bowel clean out once a week. 2. Fecal incontinence secondary to systemic scleroderma: she was evaluated by Dr Morse on 12/24/15and appreciate his recommendations. Amber is awaiting approval for Solesta injection. Consider InterStim. Consider MR defecography. 2. GERD: continue Nexium 40 mg BID. Recommend EGD with biopsies and HROEM to evaluate for esophageal dysmotility. Await results for further management. Consider Ortega ph study on PPI. 3. Early satiety/postprandial fullness and nausea: question small bowel dysmotility given h/o systemic scleroderma. Recommend lab work today and KUB to evaluate for dilated loops of small bowel. Consider MRE or CT A/P pending KUB results. Recommend EGD with biopsies and HROEM to evaluate for dysmotility. Recommend gastroparesis diet and eating smaller more frequent 5-6 low fat meals per day. 4. Gas/bloating: question SIBO secondary to intestinal dysmotility. Recommend empiric course of Rifaximin 550 mg TID x 10 days. If Rifaximin requires a PA or too expensive then instructed patient to call or email and will choose a different antibiotic. Consider HBT to evaluate for SIBO. I did my best to answer all of her questions. The following plan was formulated. Plan: 1. Lab work today 2. KUB today; consider MR enterography or CT A/P w/contrast 3. Upper endoscopy with biopsies 4. HR esophageal manometry 5. Gastroparesis diet 6. Recommend eating smaller more frequent 5-6 low fat meals per day 7. Rifaximin 550 mg every 8 hours x 10 days 8. Nexium (esomeprazole) 40 mg BID 9. Anant tablets 550 mg every 6 hours as needed; anant chews or tea prn; consider Tigan, Zofran ODT, Scopolamine patch or Phenergan po/MN 10. Imodium up to 16 mg/day prn; take 1 tablet after first bowel movement of the day 11. Follow up with Dr Lucas (I am transferring her care to Dr. Lucas since I will no longer be working in GI effective 03/11). Patient understands and is agreeable to the above plan. Written instructions provided. Evelyn Miller APRN Section of [place]enter[place] [address] documented in this encounter Plan of Treatment Upcoming Encounters Date Type Department Care Team (Late st Contact Info) Description 10/07/2024 11:30 AM EST Office Visit Dermatology at [facility] [address] [place] [address] Jo Ordaz MD [facility] [place] [address] 12/13/2024 11:30 AM EST App[place]ment [place] [phone] 12/13/2024 1:00 PM EST Office [place] [phone] Kiet Pardo MD [facility] [address] documented as of this encounter Procedures Procedure Name Priority Date/Time Associated Diagnosis Comments HEMOGRAM Routine 02/25/2016 12:47 PM EDT Gastroesophageal reflux disease, esophagitis presence not specified Chronic nausea DIFFERENTIAL, AUTOMATED Routine 02/25/2016 12:47 PM EDT Gastroesophageal reflux disease, esophagitis presence not specified Chronic nausea CBC (WITH DIFF) Routine 02/25/2016 12:47 PM EDT Gastroesophageal reflux disease, esophagitis presence not specified Chronic nausea TSH Routine 02/25/2016 12:47 PM EDT Gastroesophageal reflux disease, esophagitis presence not specified Other constipation COMPREHENSIVE METABOLIC PANEL Routine 02/25/2016 12:47 PM EDT Gastroesophageal reflux disease, esophagitis presence not specified Chronic nausea documented in this encounter Results * Differential, Automated (02/25/2016 12:47 PM EDT) Pathologist [facility] Neutrophil % 66.4 % [facility] Neutrophil Absolute 5.52 1.50 - 6.30 x10(3)/[facility] Lymph % 22.9 % [facility] Lymphocytes Abs 1.9 1.0 - 3.6 x10(3)/[facility] Monocyte % 7.6 % [facility] Monocyte Abs 0.6 0.2 - 1.0 x10(3)/[facility] Eos % 2.3 % [facility] Eosinophils Abs 0.2 0.0 - 0.5 x10(3)/[facility] Basophil % 0.6 % [facility] Baso Absolute 0.0 0.0 - 0.2 x10(3)/[facility] Immature Gran % 0.20 % [facility] Comment: Immature granulocytes(IG's)percentage and absolute count will include metamyelocytes, myelocytes, and promyelocytes. Blood smears from CBCs yielding IG's will be scanned manually for concordance. If this scan disagrees with the automated IG or if promyelocytes are noted, a manual differential will be performed. Immature Gran Absolute 0.02 0.00 - 0.05 x10(3)/[facility] Blood specimen (specimen) 02/25/2016 12:47 PM EDT 02/25/2016 1:07 PM EDT Narrative Resulting Agency Comment Spec In Lab Sumit Lucas MD HEMATOLOGY ORDERABLE S [facility] [place] [address] * (ABNORMAL) Hemogram (02/25/2016 12:47 PM EDT) White Blood Cell 8.3 4.0 - 10.0 x10(3)/[facility] Red Blood Cell 4.36 3.93 - 5.22 x10(6)/mc L [facility] Hemoglobin 13.8 11.2 - 15.7 gm/dL [facility] Hematocrit 41.6 34.0 - 45.0 % [facility] Mean Cell Volume 95.4(H) 79.0 - 94.0 fL [facility] Mean Cell Hemoglobin 31.7 26.6 - 32.2 pg [facility] Mean Cell Hemoglobin Concentration 33.2 32.0 - 36.5 gm/dL [facility] Platelet 300 145 - 370 x10(3)/mc L [facility] RDW Standard Deviation 46.8(H) 35.0 - 46.0 fL [facility] RDW coefficient of variation 13.4 10.9 - 14.4 % [facility] Mean Platelet Volume 10.8 9.0 - 12.0 fL [facility] Blood specimen (specimen) 02/25/2016 12:47 PM EDT 02/25/2016 1:07 PM EDT Narrative Resulting Agency Comment Spec In Lab Sumit Lucas MD HEMATOLOGY ORDERABLE S Performing Organization Address City/[facility]/ZIP Co de Phone Number [facility] [place] [address] * TSH (02/25/2016 12:47 PM EDT) Thyroid Stimulating Hormone 1.27 0.27 - 4.20 mcIU/mL [facility] Blood specimen (specimen) 02/25/2016 12:47 PM EDT 02/25/2016 1:07 PM EDT Narrative Resulting Agency Comment Spec In Lab Sumit Lucas MD CHEMISTRY ORDERABLES Performing Organization Address City/[facility]/ZIP Co de Phone Number [facility] [place] [address] * (ABNORMAL) Comprehensive metabolic panel (non-fasting) (02/25/2016 12:47 PM EDT) Glucose 90 65 - 199 mg/dL [facility] Comment:Diabetes: >=200 mg/d L plus symptoms Blood Urea Nitrogen 26(H) 8 - 18 mg/dL [facility] Creatinine 1.37(H) 0.70 - 1.20 mg/dL [facility] Comment: Please note that the pediatric reference intervals supplied above were not validated at [facility]. Results from pediatric patients should be interpreted in conjunction to the patient's age, height and muscle mass. Sodium 140 135 - 145 mmol/L [facility] Potassium 4.6 3.5 - 5.0 mmol/L [facility] Comment: Please note: ??Patients with WBC >100,000 may have falsely elevated Potassium levels. ??For accurate Potassium quantification in these patients send serum separator tube (gold top) for subsequent determinations. ??Contact the Clinical Chemistry Laboratory if there are any questions. Chloride 103 98 - 107 mmol/L [facility] Carbon Dioxide 23 22 - 31 mmol/L [facility] Anion Gap 14 5 - 15 mmol/L [facility] Calcium 9.0 8.5 - 10.5 mg/dL [facility] Protein, Total 7.0 6.1 - 8.0 gm/dL [facility] Albumin 4.5 3.2 - 5.2 gm/dL [facility] Aspartate Aminotransferase 15 0 - 30 unit/L [facility] Alanine Aminotransferase 10 0 - 30 unit/L [facility] Alkaline Phosphatase 67 40 - 104 unit/L [facility] Bilirubin, Total 0.3 0.2 - 1.3 mg/dL [facility] Bilirubin, Direct 0.1 0.0 - 0.3 mg/dL [facility] Est Glomerular Filtration Rate 40(L) >=60 [facility] Comment: This estimated GFR [...] the following links into your internet browser. [email or web address] [email or web address] [email or web address] [email or web address] Blood specimen (specimen) 02/25/2016 12:47 PM EDT 02/25/2016 1:07 PM EDT Narrative Resulting Agency Comment Spec In Lab Sumit Lucas MD CHEMISTRY ORDERABLES [facility] [place] [address] * XR Abdomen 1 View (GENERIC) (02/25/2016 [...] documented in this encounter Visit Diagnoses Diagnosis Gastroesophageal reflux disease, esophagitis presence not specified Scleroderma Systemic sclerosis Other constipation Chronic nausea Nausea alone Abdominal bloating Flatulence, eructation, and gas pain Other constipation Chronic nausea Nausea alone Abdominal bloating Flatulence, eructation, and gas pain documented in this encounter Care Teams [employer] Relationship Specialty Start Date End Date Yaritza Pierre MD [address] [place] [id number] PCP - General 03/27/12 11/27/18 documented as of this encounter
--- OUTSIDE RECORDS SUMMARY | 2024-09-14 13:11 | XMS_ITS | Encounter Summary ---
Author Organization [facility] [place] [address] Care Team Providers Care Bellman Driver Name Role Phone Yaritza Pierre MD Primary Care Provider [phone] Reason for Visit * Reason Comments Skin Check Encounter Details Date Type Department Care Team (Late st Contact Info) Description 04/14/2015 10:15 AM EDT Follow-Up Dermatology at [facility] [address] [place] [address] Jo Ordaz MD [facility] [place] [address] Scar; Lentigines; Scleroderma Discharge Disposition: Home Social History Tobacco [...] Progress Notes * Jo Ordaz MD - 04/14/2015 10:40 AM EDT DERMATOLOGY ESTABLISHED PATIENT CLINIC NOTE Date of service: 04/14/2015 Amber Wells : 1960 Provider: Jo Ordaz [...] (See Comment) HPI Amber Wells is a 54 y.o. year old female. Presents to clinic today for a full skin exam. She was last seen by me on 05/20/2014 Patient states that she monitors her skin and has not noticed any areas of concern. Followed by surgery for fibromatosis (close margins). No new lumps or bumps on back. MEDS: Current Outpatient Prescriptions Medication Sig Dispense Refill ??? sildenafil (REVATIO) [...] complaints EXAM General: NAD, pleasant, cooperative Skin: A total body skin exam except for the genitalia was performed. This includes examination of the skin of the face, ears, neck, chest, axillae, left and right upper and lower extremities, hands, feet, abdomen, back, and buttocks. The genitalia, perineum, and perianal areas were not examined. Significant skin findings: A. Sclerodactyly, Taut skin on face, hands, and feet.-diffuse hyperpigmentation, no claire lines noted B. 0.3-0.6cm light-brown evenly pigmented, well-demarcated macule scattered on trunk and extremities; Multiple, 0.3-0.5cm, medium-brown, evenly-pigmented macules and papules. All with regular pigmentpattern on dermoscopy. No pigmented lesions suspicious for melanoma. C. Well-healed hypopigmented scars at sites above, back-no signs of recurrence ASSESSMENT/PLAN: A. Scleroderma - systemic disease managed by rheumatology B. Lentigines and Benign nevi -Discussed importance of sun protection, sun avoidance strategies, protective clothing, and sunscreen. C. Scar H/o Desmoid fibromatosis-NER Follow up: 1 year-routed for scheduling. Sooner should problems arise. I am documenting this encounter acting as the scribe for and in the presence of Dr. Ordaz: Karlee Prajapati LPN I performed the above scribed service and agree with the accuracy of the documentation in this encounter. Jo Ordaz MD Correspondence Coordinator of Dermatology, Department of Radiological Health SpecialistCorrespondence Coordinatorpost graduate internship (Dermatopathology) [facility] documented in this encounter Plan of Treatment Upcoming Encounters Date Type Department Care Team (Late st Contact Info) Description 10/07/2024 11:30 AM EST Office Visit Dermatology at [place] [address] [place] [address] Jo Ordaz MD [facility] [place] [address] 12/13/2024 11:30 AM EST Appointment [place] [address] 12/13/2024 1:00 PM EST Office [place] [address] Kiet Pardo MD [facility] [address] documented as of this encounter Visit Diagnoses Diagnosis Scar Scar condition and fibrosis of skin Lentigines Other dyschromia Scleroderma Systemic sclerosis documented in this encounter Care Teams Bellman Driver Relationship Specialty Start Date End Date Yaritza Pierre MD [address] [place] [id number] PCP - General 03/27/12 11/27/18 documented as of this encounter
--- OUTSIDE RECORDS SUMMARY | 2024-09-14 13:11 | XMS_ITS | Encounter Summary ---
Author Organization [facility] [place] [address] Care Team Providers Care Bottle Feeder Name Role Phone Yaritza Pierre MD Primary Care Provider Encounter Details Date Type Department Care Team (Late st Contact Info) Description 09/15/2015 Orders [place] [address] Yu Mcdonough [facility] [place] [address] Social History Tobacco Use Types Packs/Day Years [...] 11:30 AM EST Office Visit Dermatology at [facility] [address] [place] [address] Jo Ordaz MD [facility] [place] [address] 12/13/2024 11:30 AM EST [place] [phone] 12/13/2024 1:00 PM EST [place] [phone] Kiet Pardo MD [facility] [place] [address] documented as of this encounter Visit Diagnoses Not on filedocumented in this encounter Care Teams Bottle Feeder Relationship Specialty Start Date End Date Yaritza Pierre MD [address] [place] [address] PCP - General 03/27/12 11/27/18 documented as of this encounter
--- OUTSIDE RECORDS SUMMARY | 2024-09-14 13:11 | XMS_ITS | Encounter Summary ---
[place] [address] Care Team Providers Care Special Needs Teacher Name Role Phone Niesha Gonzalez MD Primary Care Provider [phone] Reason for Referral * Diagnostic Test (Routine) - Closed Specialty Diagnoses / Procedures Referred By Wander hernandez Referred To Contact Radiology Diagnoses Scleroderma Raynaud's disease without gangrene Procedures MRI Upper Extremity Left Angiogram Andre Marroquin MD [facility] [place] [address] [place] [address] Referral ID Status Reason Start Date Expiration Date V isits Requested Visits Authorized [id number] Closed Specialty Service Requested 02/22/2016 04/22/2016 2 2 Reason for Visit * Diagnostic Test (Routine) - Closed Specialty Diagnoses / Procedures Referred By Wander hernandez Referred To Contact Radiology Diagnoses Scleroderma Raynaud's disease without gangrene Procedures MRI Upper Extremity Left Angiogram Andre Marroquin MD [facility] [place] [address] [place] [address] Referral ID Status Reason Start Date Expiration Date V isits Requested Visits Authorized [id number] Closed Specialty Service Requested 02/22/2016 04/22/2016 2 2 Encounter Details Date Type Department Care Team (Latest Contact Info) Description 03/01/2016 2:18 PM EDT - 03/01/2016 11:59 PM EDT Hospital Encounter MRI at [facility] [place] [address] Andre Marroquin MD [facility] [place] [address] Scleroderma; Raynaud's disease without gangrene Discharge Disposition: [...] as of this encounter Progress Notes * Rishabh Lucero RN - 02/25/2016 11:19 AM EDT VIR MRI PRE-SEDATION ASSESSMENT NOTE NAME: Amber Wells AGE: 55 y.o. : 1960 [address] [place] [address] Female [phone] (home) Telephone Information: NIESHA GONZALEZ MD None No Known Allergies Date/Time of call: February 25, 2016/11:19 AM/ PREVIOUS MRI SCAN? Yes see below HEIGHT: 5' WEIGHT: 139 SCHEDULED SCAN: MRI Left upper extremity angiogram (80 mins head first) SUBJECTIVE: CAN YOU LAY FLAT? yes AIRWAY ISSUES? No DO YOU HAVE ANY PAIN ISSUES? Shoulder pain ASSESSMENT: Appropriate for po sedation PLAN: Ativan 2mg po upon arrival and MR x1 in 30 if needed Guidelines for MRI Pre-Procedures Laboratory Studies: GFR 43 creat 1.29 02/10/16 1. Creatinine studies (GFR level needed) within 90 days of scan ??? 70 yo or older if they are getting contrast ??? 50 years and older if they are diabetic and getting contrast ( XXX ) You must have a tractor trailer driver present when you check in. This patient has been informed that they require a tractor trailer driver to drive them home after this procedure. In the absence of a tractor trailer driver, IR will not be able to sedate for your scan. Pt verbalized understanding of these instructions during the pre-procedure education via phone. X Yes [place] of tractor trailer driver: Mike Wellington Phone number:[phone] 08/28/14 MRI with PO sedation? Ativan 1 mg x 2 po ?? yes? 02/17/15 MRI Upper Ext wwo ?? Ativan 1 mg x 2 po ?? yes ?? 09/18/2015 MRI Upper Extremity Non Joint w/wo?? Ativan 2 mg PO ?? Yes?? 03-01-16 MRI Left upper extremity Ativan 1mg. PO x2 Yes ? PT STATED TO ECDIS N NAVIGATION OPERATOR THAT THE SEDATION WAS EFFECTIVE FOR SCAN: Y N COMMENTS: Revised 12/04/15 documented in this encounter Plan of Treatment Upcoming Encounters Date Type Department Care Team (Late st Contact Info) Description 10/07/2024 11:30 AM EST Office Visit Dermatology at [address] [address] Jo Ordaz MD [facility] DERMATOLOGY [place], [place] [id number] 12/13/2024 11:30 AM EST [place] [address] 12/13/2024 1:00 PM EST Office [place] [address] Kiet Pardo MD [facility] [place] [address] documented as of this encounter Procedures Procedure Name Priority Date/Time Associated Diagnosis Comments MR ANGIOGRAM UPPER EXTREMITY WWO CONTRAST LEFT Routine 03/01/2016 5:00 PM EDT Scleroderma Raynaud's disease without gangrene documented in this encounter Results * MRI Upper Extremity Left Angiogram (03/01/2016 [...] MAR Action Action Date Dose Rate Site LORazepam (ATIVAN) tablet 1-2 mg 1-2 mg, Oral, ONCE PRN, 2 doses, Starting on Mon03/01/16 at 0707, Until Mon03/01/16 at 1509, Anxiety, Angio/IR (Day of Procedure), Routine Given 03/01/2016 3:09 PM EDT 1 mg Given 03/01/2016 2:35 PM EDT 1 mg documented in this encounter Care Teams Special Needs Teacher Relationship Specialty Start Date End Date Niesha Gonzalez MD [address] [place] [address] PCP - General 03/27/12 11/27/18 documented as of this encounter
--- OUTSIDE RECORDS SUMMARY | 2024-09-14 13:11 | XMS_ITS | Encounter Summary ---
[place] [address] Care Team Providers Care Flatwork Tier Name Role Phone Yaritza Pierre MD Primary Care Provider [phone] Encounter Details Date Type Department Care Team (Late Contact Info) Description 02/26/2016 Telephone [place] [address] Catherine Vidal Social History Tobacco Use Types Packs/Day Years [...] encounter Miscellaneous Notes * Telephone Encounter - Catherine Barger - 02/26/2016 9:05 AM EDT Caller: patient Call for: Evelyn Miller APRN Call back number: [phone] Reason for call: returning Evelyn's call Call back urgency: when available today documented in this encounter Plan of Treatment Upcoming Encounters Date Type Department Care Team (Late st Contact Info) Description 10/07/2024 11:30 AM EST Office Visit Dermatology at [facility] [address] [place] [address] Jo Ordaz MD [facility] [address] 12/13/2024 11:30 AM EST Appointment [place] [phone] 12/13/2024 1:00 PM EST Office [place] [address] Kiet Pardo MD [facility] [place] [address] documented as of this encounter Visit Diagnoses Not on filedocumented in this encounter Care Teams Flatwork Tier Relationship Specialty Start Date End Date Yaritza Pierre MD [address] [place] [address] PCP - General 03/27/12 11/27/18 documented as of this encounter
--- OUTSIDE RECORDS SUMMARY | 2024-09-14 13:11 | XMS_ITS | Encounter Summary ---
Author Organization [facility] [place] [address] Care Team Providers Care Customs Compliance Analyst Name Role Phone Yaritza Pierre MD Primary Care Provider [phone] Encounter Details Date Type Department Care Team (Late st Contact Info) Description 10/13/2015 11:30 AM EST Office [place] [address] Yu Mcdonough, [facility] [place] [address] Scleroderma Social History Tobacco Use Types Packs/Day [...] Sign Reading Time Taken Comments Blood Pressure 113/63 10/13/2015 11:22 AM EST Pulse 63 10/13/2015 11:22 AM EST Temperature 36.8 ??C (98.3 ??F) 10/13/2015 11:[address] Respiratory Rate - - Oxygen Saturation 100% 10/13/2015 11:22 AM EST Inhaled Oxygen Concentration - - Weight 64.4 kg (142 lb) 10/13/2015 11:22 AM EST Height 170.2 cm (5' 7) 10/13/2015 11:22 AM EST Body Mass Index 22.24 10/13/2015 11:22 AM EST documented in this encounter Progress Notes * Yu Mcdonough, DO - 10/13/2015 11:30 AM EST PROBLEM LIST: 1. Diffuse systemic sclerosis. (A) Initially diagnosed [place] [address] L[address] at [facility] in [place]. Then followed by Dr. Peyton Hinton in [facility] in [place] in 04/2010. . Echo and PFTs 12/09/11 both normal. (B) Treatment in the past has included intermittent penicillamine and methotrexate, however, she has been off immunosuppressive therapy since approximately 2005. (C) Hospitalization in 03/2010 in [place] with scleroderma hypertensive renal crisis, on dialysis for two months ending in mid 06/2010. (D) One visit with Dr. Ten Gonzalez in [place], [place] in late 2009. 2. Chronic kidney disease, stage III, with associated anemia. Currently followed by Dr. Sumit Sawyer in nephrology. 3. Raynaud's symptoms. 4. GERD. HPI: The patient returns for follow up of systemic sclerosis. Last seen 1 year ago. Since then she had some sort of tumor removed from her back. She is still struggling with her bowels. Evelyn Miller follows her for this. Her kidney function is stable and she saw Dr. Sawyer in May. GERD is OK. She has been able to decrease nexium to once per day. She has a callouson her right 5th metatarsal head. She was concerned this may be from scleroderma. Her breathing is stable. Skin is stable. She is frustrated by her Raynaud's. Chronic pitting in thetips of her fingers. She has a really hard time keeping them filling separator winter. Uses hand warmers consistently and I increased her sildenafil to 20 mg 5 times per day which she is tolerating but it hasn't seemed to make a difference in her hands. Physical exam: Gen: Patient is awake, alert [...] all of her other joints are normal. There is a callous on the bottom of her right foot over the 5th Metatarsal head. No ulcers. Assessment/Plan: 1. 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 Sawyer For her right foot callous, I recommended she get a metatarsal pad. This is from friction. i recommended she soak her feet to loosen the skin but not to dig at the area. For her bowels she is trying some dietary changes and peppermint oil. Her BP is quite good and her exercise tolerance is also very good. No labs needed today. I will see her in 6 months. documented in this encounter Plan of Treatment Upcoming Encounters Date Type Department Care Team (Late st Contact Info) Description 10/07/2024 11:30 AM EST Office Visit Dermatology at [place] [address] [place] [address] Jo Ordaz MD [facility] [place] [address] 12/13/2024 11:30 AM EST [place] [address] 12/13/2024 1:00 PM EST [place] [address] Kiet Pardo MD [facility] [place] [address] documented as of this encounter Visit Diagnoses Diagnosis Scleroderma Systemic sclerosis documented in this encounter Care Teams Customs Compliance Analyst Relationship Specialty Start Date End Date Yaritza Pierre MD [address] [place] [address] PCP - General 03/27/12 11/27/18 documented as of this encounter
--- OUTSIDE RECORDS SUMMARY | 2024-09-14 13:11 | XMS_ITS | Encounter Summary ---
Author Organization [facility] [place] [address] Care Team Providers Care Athletic Instructor Name Role Phone Yaritza Pierre MD Primary Care Provider [phone] Encounter Details Date Type Department Care Team (Latest Contact Info) Description 10/26/2015 9:16 PM EST - 10/26/2015 11:59 PM [facility] Hospital [place] [address] Discharge Disposition: Home Social History Tobacco Use [...] 3 09/15/2015 12/10/2015 fosinopril (MONOPRIL) 40 mg TabletIndications:Scl eroderma,CKD (chronic [...] 11:30 AM EST Office Visit Dermatology at [address] [address] Jo Ordaz MD [facility] [place] [address] 12/13/2024 11:30 AM EST Appointment [place] [address] 12/13/2024 1:00 PM EST Office [place] [address] Kiet Pardo MD [facility] [place] [address] documented as of this encounter Procedures Procedure Name Priority Date/Time Associated Diagnosis Comments SURGICAL PATHOLOGY REPORT Routine 10/26/2015 12:00 PM EST documented in this encounter Results * Surgical Pathology Report (10/26/2015 12:00 PM EST) Final Diagnosis The signing pathologist has (i) examined the relevant preparation(s) for the specimen(s) and (ii) rendered or confirmed the diagnosis(es). Accession Number: [id number] ?Location: [facility] . ?Surgical Pathology DIAGNOSIS Endometrium, biopsy: ?? 1 - Scanty fragments of benign endocervical glandular epithelium. ?? 2 - A few minute fragments of benign squamous epithelium, negative ? for dysplasia and HPV effect (see Discussion). 10/28/15 ARS 10/28/15 Verified by: ? Romain HEARD, Raudel Joe ?Pathologist ?(Electronic Signature) The attending pathologist whose signature appears on this report has reviewed all diagnostic slides and has edited the gross and/or microscopic portion of the report in rendering the final pathologic diagnosis. DISCUSSION Endometrial tissue is not present in this sample. CLINICAL INFORMATION Specimen Submitted: A - Endometrial biopsy Clinical History: Cervical polyp seen on exam Clinical Diagnosis: Same Referring Identifier: ??[id number] SPECIMEN PROCESSING A - Labeled/Fixative : Endometrial biopsy, formalin. Quantity/Size: Fragments, collectively 1.0 x 1.0 x 0.6 cm. Tissue Description: Soft, hemorrhagic mucoid tissue. Sections/Process ing: (T1) ??ejr 10/28/2015 3:[address] [facility] ENDOMETRIAL STRUCTURE / Unknown 10/26/2015 12:00 PM EST 10/26/2015 12:00 PM EST Narrative Resulting Agency Comment Spec In Lab / [facility] Saji Sampson MD PATHOLOGY/CYTOLOGY O RDERABLES [facility] [place] [address] documented in this encounter Visit Diagnoses Not on filedocumented in this encounter Care Teams Athletic Instructor Relationship Specialty Start Date End Date Yaritza Pierre MD [address] [place] [address] PCP - General 03/27/12 11/27/18 documented as of this encounter
--- OUTSIDE RECORDS SUMMARY | 2024-09-14 13:11 | XMS_ITS | Encounter Summary ---
[place] [address] Care Team Providers Care Aba Tutor Name Role Phone Yaritza Pierre MD Primary Care Provider [phone] Encounter Details Date Type Department Care Team (Late st Contact Info) Description 02/29/2016 Telephone [place] [address] Shania Hernández CMA Social History Tobacco Use Types Packs/Day Years [...] encounter Miscellaneous Notes * Telephone Encounter - Shania Hernández CMA - 02/29/2016 3:37 PM EDT PRIOR AUTHORIZATION FOR XIFAXAN 550MG WAS SENT TO COVER MY MEDS. 02/29/2016 AWAITING THE DECISION. documented in this encounter Plan of Treatment Upcoming Encounters Date Type Department Care Team (Late st Contact Info) Description 10/07/2024 11:30 AM EST Office Visit Dermatology at [facility] [address] [place] [address] Jo Ordaz MD [facility] [place] [address] 12/13/2024 11:30 AM EST Appoint[place] [address] 12/13/2024 1:00 PM EST Office [place] [address] Kiet Pardo MD [facility] [place] [address] documented as of this encounter Visit Diagnoses Not on filedocumented in this encounter Care Teams Aba Tutor Relationship Specialty Start Date End Date Yarizta Pierre MD [address] [place] [address] PCP - General 03/27/12 11/27/18 documented as of this encounter
--- OUTSIDE RECORDS SUMMARY | 2024-09-14 13:11 | XMS_ITS | Encounter Summary ---
Author Organization [facility] [place] [address] Care Team Providers Care Automotive Mechanic Name Role Phone Yaritza Pierre MD Primary Care Provider [phone] Encounter Details Date Type Department Care Team (Late st Contact Info) Description 02/25/2016 Telephone Gastroenterology at [facility] [place] [address] Evelyn Miller APRN [facility] [place] [address] Social History Tobacco Use Types Packs/Day Years [...] Telephone Encounter - Evelyn Miller APRN - 02/25/2016 5:11 PM EDT Attempted to contact Amber regarding the results of her KUB and lab work but no answer. Left a message with call back number. documented in this encounter Plan of Treatment Upcoming Encounters Date Type Department Care Team (Late st Contact Info) Description 10/07/2024 11:30 AM EST Office Visit Dermatology at [facility] [address] [place] [address] Jo Ordaz MD [facility] [place] [address] 12/13/2024 11:30 AM EST Appoint[place] [phone] 12/13/2024 1:00 PM EST Office [place] [address] Kiet Pardo MD [facility] [place] [address] documented as of this encounter Visit Diagnoses Not on filedocumented in this encounter Care Teams Automotive Mechanic Relationship Specialty Start Date End Date Yaritza Pierre MD [address] [place] [address] PCP - General 03/27/12 11/27/18 documented as of this encounter
--- OUTSIDE RECORDS SUMMARY | 2024-09-14 13:11 | XMS_ITS | Encounter Summary ---
Author Organization [facility] [place] [address] Care Team Providers Care Mobile Paint Specialist Name Role Phone Yaritza Pierre MD Primary Care Provider [phone] Encounter Details Date Type Department Care Team (Late st Contact Info) Description 07/06/2015 Orders [place] [address] Mariaa Scruggs CKD (chronic kidney disease), unspecified stage (Primary Dx) Social History Tobacco Use Types [...] 11:30 AM EST Office Visit Dermatology at [facility] [address] [place] [address] Jo Ordaz MD [facility] [place] [address] 12/13/2024 11:30 AM EST Appointment [place] [address] 12/13/2024 1:00 PM EST Office [place] [address] Kiet Pardo MD [facility] DR RHEUMATOLOGY [place] [phone] documented as of this encounter Results * (ABNORMAL) Creatinine (09/18/2015 10:22 AM EDT) Creatinine 1.40(H) 0.70 - 1.20 mg/dL [facility] Comment: Please note that the pediatric reference intervals supplied above were not validated at [facility]. Results from pediatric patients should be interpreted in conjunction to the patient's age, height and muscle mass. Est Glomerular Filtration Rate 39(L) >=60 [facility] Comment: This estimated GFR (eGFR) value was [...] the following links into your internet browser. [email or web address] Blood specimen (specimen) 09/18/2015 10:22 AM EDT 09/18/2015 10:33 AM EDT Narrative Resulting Agency Comment Spec In Lab Breanna Barreto MD CHEMISTRY ORDERA BLES [facility] documented in this encounter Visit Diagnoses Diagnosis CKD (chronic kidney disease), unspecified stage- Primary documented in this encounter Care Teams Mobile Paint Specialist Relationship Specialty Start Date End Date Yaritza Pierre MD [address] [place] [address] PCP - General 03/27/12 11/27/18 documented as of this encounter
--- OUTSIDE RECORDS SUMMARY | 2024-09-14 13:11 | XMS_ITS | Encounter Summary ---
Author Organization [facility] [address] [facility] [place] [address] Care Team Providers Care Propeller Driven Airplane Mechanic Name Role Phone Yaritza Pierre MD Primary Care Provider [phone] Encounter Details Date Type Department Care Team (Latest Contact Info) Description 10/07/2015 9:51 PM EST - 10/07/2015 11:59 PM EST Hospital [place] [address] Discharge Disposition: Home Social History Tobacco Use [...] 11:30 AM EST Office Visit Dermatology at [address] [phone] Jo Ordaz MD [facility] [place] [address] 12/13/2024 11:30 AM EST Appointment [place] [phone] 12/13/2024 1:00 PM EST Office [place] [address] Kiet Pardo MD [facility] RHEUMATOLOGY [place], [place] [address] documented as of this encounter Procedures Procedure Name Priority Date/Time Associated Diagnosis Comments HPV Routine 10/07/2015 12:00 PM EST MANAGEMENT SCIENTIST CYTOLOGY INTERPRETATION Routine 10/07/2015 12:00 PM EST MANAGEMENT SCIENTIST CYTOLOGY FINAL REPORT Routine 10/07/2015 12:00 PM EST documented in this encounter Results * Automotive Repair Technician Cytology Final Report (10/07/2015 12:00 PM EST) Automotive Repair Technician Cytology Final Report The signing pathologist has (i) examined the relevant preparation(s) for the specimen(s) and (ii) rendered or confirmed the diagnosis(es). Accession Number: [id number] ?Location: [facility] . ? Automotive Repair Technician Final DIAGNOSIS NORMAL Negative for Intraepithelial Lesion or Malignancy (NILM). 10/17/15 ?? Screened by: ??LMY 10/17/15 ?? Verified by: ??Lalo CAMPOS(ASCP), Karlee Brown - Sand Operator DISCUSSION Please also see concurrent HPV test result. STATEMENT OF ADEQUACY Specimen submitted is satisfactory. Endocervical component present. CLINICAL INFORMATION HPV Option: ? Concurrent HPV Preparation: ?Liquid Based Pap Specimen Source: ?Cerv/Endo/LBP/Mayelin gnostic LMP: ?08/25/15 Hormones?: ?No Hysterectomy?: ?No ?: ?No ?: ?No I.U.D.?: ?No Pelvic Radiation: ? No Prior MANAGEMENT SCIENTIST Therapy?: ? Yes Hist Abnl Pap/Biopsy?: ??Yes Hist of HPV Vaccine?: ?? No Hist of Smoking?: ? No Hist of NAV exposure?: ??No Clinical Data, Significant Therapy and Clinical Impression: ?? _ Referring Identifier: ??[id number] This Pap Test has been evaluated with the assistance of the [employer] Pap Test Imaging System. Note: The Pap test is a screening test for cervical cancer with an inherent false-negative rate dependent upon several variables. ??For further information please contact the [facility] Laboratory. Reference: ??Jennie CS. ??Ic Engineer of Pap Smear Results. ??In: ??Annelise BS, Freddy HH, ed. ??The Pap Smear. ??[place]: ??Ki, 2002: ??71-77. CERNER MILLENNIUM 10/07/2015 12:0 0 PM EST Narrative Resulting Agency Comment Spec In Lab / [facility] Yaritza Pierre MD PATHOLOGY/CYTOLOGY O YVETTE Performing Organization Address [facility] Co de Phone Number [facility] * MANAGEMENT SCIENTIST Cytology Interpretation (10/07/2015 12:00 PM EST) Automotive Repair Technician Cytology Interpretation NILM [facility] Comment:Automotive Repair Technician Cytology Final R eport Endocervical Component Present [facility] AP Specimen 10/07/2015 12:0 0 PM EST 10/08/2015 9:12 PM EST Narrative Resulting Agency Comment Spec In Lab / [facility] Yaritza Pierre MD PATHOLOGY/CYTOLOGY O YVETTE Performing Organization Address City/[facility]/ZIP Co de Phone Number [facility] * HPV (10/07/2015 12:00 PM EST) HPV16 NEGATIVE [facility] HPV 18 NEGATIVE [facility] HPV Other HR NEGATIVE [facility] HPV Interpretation NEGATIVE for high-risk HPV *. [...] intended to detect low risk HPV types. Sandra Genie?? HPV test Specimen: HPV Testing - Cytology Liquid Based Prep [facility] Cervical swab (specimen) 10/07/2015 12:00 PM EST 10/09/2015 2:40 PM EST Narrative Resulting Agency Comment Spec In Lab / [facility] Yaritza Pierre MD PATHOLOGY/CYTOLOGY O RDERABLES [facility] documented in this encounter Visit Diagnoses Not on filedocumented in this encounter Care Teams Propeller Driven Airplane Mechanic Relationship Specialty Start Date End Date Yaritza Pierre MD [address] [place] [address] PCP - General 03/27/12 11/27/18 documented as of this encounter
--- OUTSIDE RECORDS SUMMARY | 2024-09-14 13:11 | XMS_ITS | Encounter Summary ---
Author Organization [facility] Address [facility] [place] [address] Care Team Providers Care Locker Room Clerk Name Role Phone Yaritza Pierre MD Primary Care Provider [phone] Encounter Details Date Type Department Care Team (Latest Contact Info) Description 05/27/2015 8:40 AM EDT Office Visit [place] [address] Sumit Sawyer MD [facility] [place] [address] A, Nurse Clinician None CKD (chronic kidney disease) stage 4, GFR 15-29 ml/min; Anemia of chronic renal failure, stage 4 (severe); Scleroderma; CKD (chronic kidney disease) stage 3, GFR 30-59 ml/min; CKD (chronic kidney disease), stage 3 (moderate) Discharge Disposition: Home Social History Tobacco Use [...] Sign Reading Time Taken Comments Blood Pressure 115/72 05/26/2015 11:39 AM EDT Pulse 72 05/26/2015 11:39 AM EDT Temperature - - Respiratory Rate - - Oxygen Saturation - - Inhaled Oxygen Concentration - - Weight 63 kg (138 lb 12.8 oz) 05/26/2015 11:39 A M EDT Height 170.2 cm (5' 7) 05/26/2015 11:39 AM EDT Body Mass Index 21.74 05/26/2015 11:39 AM EDT documented in this encounter Patient Instructions * Patient Instructions* Wendy Albarado RN - 05/27/2015 9:22 AM EDT Talk with GI about Colonic Pacemakers. Perhaps an Occupational Therapist could help you figure out ways to help you do the activities around the house. Your kidney function is stable. documented in this encounter Progress Notes * Sumit Sawyer MD - 05/27/2015 8:33 AM EDT [facility] [address] [place] [address] Reason for Clinic Visit: Systems Review and CKD management. Seen in clinic with: Pallavi Albarado RN, Continuing [employer] (CCM) CKD related to: scleraderma crisis History of Present Illness: The patient returns for follow-up of her chronic kidney disease relatedto scleroderma. Her condition has been extremely stable on the current dose of an angiotensin-converting enzyme inhibitor despite the fact that she was on dialysis at one point. 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 . History obtained by RN Specialist: She was last seen June 2014 in CKD clinic. 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 She is being followed by GI due to problems with her bowels (severe constipation). Very slow bowel and then frequency. 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 She continues to have ulcers on her fingers. She was changed from norvasc to sildenifil. 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 Last dialysis was in June at [facility] (dialyzed for 2 months). Education: 3-4 gram sodium diet discusssed, low potassium diet discussed Anticipated Renal Replacement Therapy Plan: Was on HD through tunnelled catheter from April 27 to July 14 at [facility] for the last 3 weeks of dialysis. Transplant Evaluation: will trend Creatinine levels to determine if this is necessary Review of Systems: Sign/Symptom Comments Activity level/fatigue: Yes energy is good, stiff in the AM slow to get up and get moving but then better Change in sleep patterns: No problem Nocturia: None Appetite changes: great Food aversions: No Nausea: None Vomiting: None Bowels: Bowel issues destroying my life Edema: None Shortness of breath: None Orthopnea/PND: No PND; 1 pillow/ Muscle Cramping: No Cold intolerance: No just her hands Itching: No Bruising/bleeding: None; Mental Status Changes: No Recent Home Blood Pressure Control: OK at home Recent Lipid Management: None Additional CCM Comments: How's your health been in the last 4 weeks : Poor To Fair Good Very Good Excellent (due to bowelsand hand issues) She has dual citizenship in [place] and [place] She is seeing mid level developer at [facility] for the scleroderma management. She is seeing GI for the bowel issues She is having trouble with some ADL's secondary to hand stiffness from scleraderma Hepatitis B Status: Serum Testing Date of Testing Results Hep B sAb/Hep B sAg not tested Vaccination Status: Unknown Fistula Date/Type of Initial Access/Surgeon: Had tunnelled dialysis catheter removed at [facility] in June 2010. No plans for fistula at this time. Kidney function has been stable and slowly improving Advanced Directives: On file in eDH. PMH: Patient Active Problem List Diagnosis Code ??? Anemia of chronic renal failure, stage 4 (severe) 285.21, 585.4 ??? CKD (chronic kidney disease) stage 4, GFR 15-29 ml/min 585.4 ??? GERD (gastroesophageal reflux disease) 530.81 ??? Scleroderma 710.1 ??? Raynaud's disease 443.0 ??? AK (actinic keratosis) 702.0 ??? Solar lentigo 709.09 ??? Multiple nevi 216.9 ??? 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 Altered bowel habits 787.99 ??? Other disorder of muscle, ligament, and fascia 728.89 No Known Allergies Outpatient Prescriptions Marked as Taking for the 05/27/15 encounter (Office Visit) with Sumit Sawyer MD Medication Sig Dispense Refill ??? vitamin E 400 unit Capsule Take 400 Units by mouth daily. ??? sildenafil (REVATIO) 20 mg Tablet Take [...] skin every 6 hours. Physical Exam: BP 115/72 Pulse 72 Ht 170.2 cm (5' 7) Wt 62.959 kg (138 lb 12.8 oz) BMI 21.73 kg/m2 If exam WNL X Abnormal findings General appearance in no acute distress Head facial changes consistent with scleroderma Eyes ENT Neck no jugular venous distention Respiratory clear to percussion and auscultation COR/Vascular regular rate and rhythm Abdomen normal Skin changes consistent with scleroderma in hands and arms face Neuro nonfocal and intact Asterixis Extremities no edema Other Labs Results for AMBER DAWSON ( ) as of 05/27/2015 14:16 Ref. Range 11/03/2014 11:52 02/17/2015 12:32 05/27/2015 08:24 WBC Latest Range: 4.0-10.0 x10(3)/mcL 8.8 7.3 RBC Latest Range: 3.93-5.22 x10(6)/mcL 4.46 4.64 Hemoglobin Latest Range: 11.2-15.7 gm/dL 14.4 15.1 Hematocrit Latest Range: 34.0-45.0 % 43.3 44.2 MCV Latest Range: 79.0-94.0 fL 97.1 (H) 95.3 (H) MCH Latest Range: 26.6-32.2 pg 32.3 (H) 32.5 (H) MCHC Latest Range: 32.0-36.5 gm/dL 33.3 34.2 RDWSD Latest Range: 35.0-46.0 fL 48.3 (H) 46.9 (H) RDWCV Latest Range: 10.9-14.4 % 13.6 13.6 Platelets Latest Range: 145-370 x10(3)/mcL 322 319 MPV Latest Range: 9.0-12.0 fL 10.6 10.9 Neutr Abs (ANC) Latest Range: 1.50-6.30 x10(3)/mcL 6.11 4.85 Neutrophils % No range found 69.0 66.5 Immature Gran % No range found 0.20 0.30 Lymphocytes % No range found 22.4 22.3 Monocytes % No range found 6.4 8.6 Eosinophils % No range found 1.4 1.6 Basophils % No range found 0.6 0.7 Yessica Gran Abs Latest Range: 0.00-0.05 x10(3)/mcL 0.02 0.02 Lymphocytes Abs Latest Range: 1.0-3.6 x10(3)/mcL 2.0 1.6 Monocyte Abs Latest Range: 0.2-1.0 x10(3)/mcL 0.6 0.6 Eosinophils Abs Latest Range: 0.0-0.5 x10(3)/mcL 0.1 0.1 Basophils Abs Latest Range: 0.0-0.2 x10(3)/mcL 0.0 0.0 Sodium Latest Range: 135-145 mmol/L 138 139 Potassium Latest Range: 3.5-5.0 mmol/L 4.4 4.3 Chloride Latest Range: 98-107 mmol/L 100 103 CO2 Latest Range: 22-31 mmol/L 25 23 Anion Gap Latest Range: 5-15 mmol/L 13 13 BUN Latest Range: 8-18 mg/dL 23 (H) 31 (H) Creatinine Latest Range: 0.70-1.20 mg/dL 1.29 (H) 1.38 (H) 1.43 (H) Estimated GFR Latest Range: >=60 43 (L) 40 (L) 38 (L) Glucose Lvl No range found 88 97 Calcium Latest Range: 8.5-10.5 mg/dL 9.1 9.7 Phosphorus Latest Range: 2.5-4.5 mg/dL 2.4 (L) Albumin Latest Range: 3.2-5.2 gm/dL 4.6 U Protein Ran Latest Range: 0-12 mg/dL 16 TSH Latest Range: 0.27-4.20 mcIU/mL 1.51 PTH Latest Range: 15-65 pg/mL 85 (H) U Creatinine No range found 48 Prot/Cre Ratio No range found 0.3 Problem/Goal/Assessment/Plan: Problem: Chronic Kidney Disease Goal: Reduce rate of progression Education for CKD Stage specific issues Results: Estimated GFR (MDRD): 38 ml/min/1.73m2 CKD Stage G3b - Changes discussed with RN Specialist: None A/P: Overall stable chronic kidney disease on Julius inhibitor Problem: Management of Anemia related to Chronic Kidney Disease (CKD) Goal: Hgb 9.5-10.9 g/dl Today's Results Hgb - 15.1 Receiving erythropoetic stimulating agent? No Last IV Iron replacement therapy (Venofer), Date : None Changes discussed with RN Specialist: None A/P: No indication for erythrocyte stimulating agent Problem: Hypertension Goal: Urine alb:cr ratio <30mg/g - 140/90, Urine alb:cr ratio > 30mg/g - 130/80 Sodium intake < 2 Gm per day. Results: BP today - 115/72 Changes discussed with RN Specialist: None A/P: In good range Problem: Proteinuria Goal: Pro:Cr ratio <0.2mg/mg Today's results: Pro:Cr ratio 0.3 Changes discussed with RN Specialist: patient takes fosinopril 40mg daily A/P: Stable Problem: Bone Disease Goal: Stage 3 PTH: 35-70 pg/ml Phos 2.7-4.6 Ca 8.5-10.5mg/dl Stage 4 PTH: 70-110 pg/ml Phos 2.7-4.6 Ca 8.5-10.5mg/dl Stage 5 PTH: 150-300 pg/ml Phos 3.5-5.5 Ca 8.5-10.5mg/dl Results: PTH today -85 ( pt not taking calcitriol) Phos today -2.4 (pt not taking binders) Calcium today - 9.7 Changes discussed with RN Specialist: A/P: We'll hold off on calcitriol giving her underlying scleroderma and the potential detrimental effects of hypercalcemia Problem: Nutrition Goal: Albumin > 4.0gm/dl BMI 20-25 kg/m2 Results: Albumin today -4.6 Changes discussed with RN Specialist: None A/P: Stable Problem: Patient does not have Diabetes Goal: HA1C ~ 7.0% Results: Random Glucose - 97 Changes discussed with RN Specialist: A/P: Stable Problem: Hand stiffness secondary to changes in connective tissue due to scleraderma Findings: difficulty with ADL i's Changes discussed with RN Specialist: Occupational Therapy referral. Will ask PCP office to refer in her home area. A/P: Overall the patient is doing quite well in terms of her chronic kidney disease. Would continue her current dose of Monopril. We'll continue to follow annually for progression of chronic kidney disease. Return to CKD clinic: one year in CKD clinic (patient does not want to do the Telehealth Clinic in [place]) documented in this encounter Plan of Treatment Upcoming Encounters Date Type Department Care Team (Late st Contact Info) Description 10/07/2024 11:30 AM EST Office Visit Dermatology at [address] [address] Jo Ordaz MD [facility] [place] [address] 12/13/2024 11:30 AM EST [place]ointment [place] [address] 12/13/2024 1:00 PM EST Office [place] [address] Kiet Pardo MD [facility] [place] [place] [address] documented as of this encounter Procedures Procedure Name Priority Date/Time Associated Diagnosis Comments PROTEIN/CREATININE RATIO, URINE Routine 05/27/2015 8:28 AM EDT CKD (chronic kidney disease) stage 4, GFR 15-29 ml/min PTH STAT 05/27/2015 8:24 AM EDT CKD (chronic kidney disease) stage 4, GFR 15-29 ml/min HEMOGRAM STAT 05/27/2015 8:24 AM EDT CKD (chronic kidney disease) stage 4, GFR 15-29 ml/min Anemia of chronic renal failure, stage 4 (severe) DIFFERENTIAL, AUTOMATED STAT 05/27/2015 8:24 AM EDT CKD (chronic kidney disease) stage 4, GFR 15-29 ml/min Anemia of chronic renal failure, stage 4 (severe) CBC (WITH DIFF) STAT 05/27/2015 8:24 AM EDT CKD (chronic kidney disease) stage 4, GFR 15-29 ml/min Anemia of chronic renal failure, stage 4 (severe) PHOSPHORUS STAT 05/27/2015 8:24 AM EDT CKD (chronic kidney disease) stage 4, GFR 15-29 ml/min ALBUMIN LEVEL STAT 05/27/2015 8:24 AM EDT CKD (chronic kidney disease) stage 4, GFR 15-29 ml/min BASIC METABOLIC PANEL STAT 05/27/2015 8:24 AM EDT CKD (chronic kidney disease) stage 4, GFR 15-29 ml/min documented in this encounter Results * (ABNORMAL) Protein/Creatinine Ratio, urine (05/27/2015 8:28 AM EDT) Creatinine, Urine 48 mg/dL CERNER MILLENNIUM Protein, Urine 16(H) 0 - 12 mg/dL CERNER MILLENNIUM Protein / Creatinine Ratio, Urine 0.3 ratio CERNER MILLENNIUM Urine specimen (specimen) 05/27/2015 8:28 AM EDT 05/27/2015 8:46 AM EDT Narrative Resulting Agency Comment Spec In Lab Sumit Sawyer MD URINE ORDERABLES CERNER MILLENNIUM * Differential, Automated (05/27/2015 8:24 AM EDT) Neutrophil % 66.5 % CERNER MILLENNIUM Neutrophil Absolute 4.85 1.50 - 6.30 x10(3)/mcL CERNER MILLENNIUM Lymph % 22.3 % CERNER MILLENNIUM Lymphocytes Abs 1.6 1.0 - 3.6 x10(3)/mcL CERNER MILLENNIUM Monocyte % 8.6 % CERNER MILLENNIUM Monocyte Abs 0.6 0.2 - 1.0 x10(3)/mcL CERNER MILLENNIUM Eos % 1.6 % CERNER MILLENNIUM Eosinophils Abs 0.1 0.0 - 0.5 x10(3)/mcL CERNER MILLENNIUM Basophil % 0.7 % CERNER MILLENNIUM Baso Absolute 0.0 0.0 - 0.2 x10(3)/mcL CERNER MILLENNIUM Immature Gran % 0.30 % CERN ER MILLENNIUM Comment: Immature granulocytes(IG's)percentage and absolute count will include metamyelocytes, myelocytes, and promyelocytes. Blood smears from CBCs yielding IG's will be scanned manually for concordance. If this scan disagrees with the automated IG or if promyelocytes are noted, a manual differential will be performed. Immature Gran Absolute 0.02 0.00 - 0.05 x10(3)/mcL CERNER MILLENNIUM Blood specimen (specimen) 05/27/2015 8:24 AM EDT 05/27/2015 8:32 AM EDT Narrative Resulting Agency Comment Spec In Lab Sumit Sawyer MD HEMATOLOGY ORDERABL ES Performing Organization Address City/[facility]/ZIP Co de Phone Number CERNER MILLENNIUM * (ABNORMAL) Hemogram (05/27/2015 8:24 AM EDT) White Blood Cell 7.3 4.0 - 10.0 x10(3)/mc L CERNER MILLENNIUM Red Blood Cell 4.64 3.93 - 5.22 x10(6)/mc L CERNER MILLENNIUM Hemoglobin 15.1 11.2 - 15.7 gm/dL CERNER MILLENNIUM Hematocrit 44.2 34.0 - 45.0 % CERNER MILLENNIUM Mean Cell Volume 95.3(H) 79.0 - 94.0 fL CERNER MILLENNIUM Mean Cell Hemoglobin 32.5(H) 26.6 - 32.2 pg CERNER MILLENNIUM Mean Cell Hemoglobin Concentration 34.2 32.0 - 36.5 gm/dL CERNER MILLENNIUM Platelet 319 145 - 370 x10(3)/mc L CERNER MILLENNIUM RDW Standard Deviation 46.9(H) 35.0 - 46.0 fL CERNER MILLENNIUM RDW coefficient of variation 13.6 10.9 - 14.4 % CERNER MILLENNIUM Mean Platelet Volume 10.9 9.0 - 12.0 fL CERNER MILLENNIUM Blood specimen (specimen) 05/27/2015 8:24 AM EDT 05/27/2015 8:32 AM EDT Narrative Resulting Agency Comment Spec In Lab Sumit Sawyer MD HEMATOLOGY ORDERABL ES Performing Organization Address [facility] de Phone Number [facility] * (ABNORMAL) PTH (05/27/2015 8:24 AM EDT) Parathyroid Hormone 85(H) 15 - 65 pg/mL [facility] MILLENNIUM Blood specimen (specimen) 05/27/2015 8:24 AM EDT 05/27/2015 8:32 AM EDT Narrative Resulting Agency Comment Spec In Lab Sumit Sawyer MD CHEMISTRY ORDERABLE S Performing Organization Address [facility] Co de Phone Number [facility] * (ABNORMAL) Basic Metabolic Panel (non-fasting) (05/27/2015 8:24 AM EDT) Glucose 97 65 - 199 mg/dL [facility] Comment:Diabetes: >=200 mg/d L plus symptoms Blood Urea Nitrogen 31(H) 8 - 18 mg/dL CERNER MILLENNIUM Creatinine 1.43(H) 0.70 - 1.20 mg/dL CERNER MILLENNIUM Comment: Please note that the pediatric reference intervals supplied above were not validated at [facility]. Results from pediatric patients should be interpreted in conjunction to the patient's age, height and muscle mass. Sodium 139 135 - 145 mmol/L CERNER MILLENNIUM Potassium 4.3 3.5 - 5.0 mmol/L CERNER MILLENNIUM Comment: Please note: ??Patients with WBC >100,000 may have falsely elevated Potassium levels. ??For accurate Potassium quantification in these patients send serum separator tube (gold top) for subsequent determinations. ??Contact the Clinical Chemistry Laboratory if there are any questions. Chloride 103 98 - 107 mmol/L CERNER MILLENNIUM Carbon Dioxide 23 22 - 31 mmol/L CERNER MILLENNIUM Anion Gap 13 5 - 15 mmol/L CERNER MILLENNIUM Calcium 9.7 8.5 - 10.5 mg/dL CERNER MILLENNIUM Est Glomerular Filtration Rate 38(L) >=60 CERNER MILLENNIUM Comment: This estimated GFR (eGFR) value was [...] the following links into your internet browser. [email or web address] Blood specimen (specimen) 05/27/2015 8:24 AM EDT 05/27/2015 8:32 AM EDT Narrative Resulting Agency Comment Spec In Lab Sumit Sawyer MD CHEMISTRY ORDERABLE S [facility] * (ABNORMAL) Phosphorus (05/27/2015 8:24 AM EDT) Phosphorus 2.4(L) 2.5 - 4.5 mg/dL CERNER MILLENNIUM Blood specimen (specimen) 05/27/2015 8:24 AM EDT 05/27/2015 8:32 AM EDT Narrative Resulting Agency Comment Spec In Lab Sumit Sawyer MD CHEMISTRY ORDERABLE S [facility] TORRESENNI[facility] * Albumin Level (05/27/2015 8:24 AM EDT) Albumin 4.6 3.2 - 5.2 gm/dL CERNER MILLENNIUM Blood specimen (specimen) 05/27/2015 8:24 AM EDT 05/27/2015 8:32 AM EDT Narrative Resulting Agency Comment Spec In Lab Sumit Sawyer MD CHEMISTRY ORDERABLE S Performing Organization Address City/[facility]/ZIP Co de Phone Number [facility] documented in this encounter Visit Diagnoses Diagnosis CKD (chronic kidney disease) stage 4, GFR 15-29 ml/min Chronic kidney disease, Stage IV (severe) Anemia of chronic renal failure, stage 4 (severe) Scleroderma Systemic sclerosis CKD (chronic kidney disease) stage 3, GFR 30-59 ml/min Chronic kidney disease, Stage III (moderate) CKD (chronic kidney disease), stage 3 (moderate) documented in this encounter Care Teams Locker Room Clerk Relationship Specialty Start Date End Date Yaritza Pierre MD [address] [place] [address] PCP - General 03/27/12 11/27/18 documented as of this encounter
--- OUTSIDE RECORDS SUMMARY | 2024-09-14 13:11 | XMS_ITS | Encounter Summary ---
Author Organization [facility] [place] [address] Care Team Providers Care Cleaning And Washing Equipment Operator Name Role Phone Niesha Gonzalez MD Primary Care Provider [phone] Reason for Visit * Reason Comments Encopresis * Consultation (Routine) - Closed Specialty Diagnoses / Procedures Referred By Wander hernandez Referred To Contact General Surgery Diagnoses Fecal incontinence Evelyn Miller APRN [facility] [place] [address] [place] [address] [facility] Gen Surgery [address] [place] [address] Referral ID Status Reason Start Date Expiration Date V isits Requested Visits Authorized [id number] Closed Consult, Test & Treat 11/11/2015 11/10/2016 1 1 Encounter Details Date Type Department Care Team (Late st Contact Info) Description 12/10/2015 9:00 AM EST Office [place] [address] Sumit Lucas MD [facility] [place] [address] Diann Cain PA [address] [facility] [place] [address] Fecal incontinence Social History Tobacco Use Types [...] Sign Reading Time Taken Comments Blood Pressure 147/81 12/10/2015 9:26 AM EST Pulse 60 12/10/2015 9:26 AM EST Temperature 36.3 ??C (97.3 ??F) 12/10/2015 9:26 AM ES T Respiratory Rate 18 12/10/2015 9:26 AM EST Oxygen Saturation 100% 12/10/2015 9:26 AM EST Inhaled Oxygen Concentration - - Weight 64 kg (141 lb) 12/10/2015 9:26 AM EST Height 170.2 cm (5' 7) 12/10/2015 9:26 AM EST Body Mass Index 22.08 12/10/2015 9:26 AM EST documented in this encounter Progress Notes * Diann Cain PA - 12/10/2015 11:23 AM EST Colorectal Surgery Outpatient Consultation Note [place] [address] PCP: NIESHA GONZALEZ MD Referring Provider: Evelyn Miller [phone] HPI:Amber Wells is a very pleasant 55 y.o. female with PMHx that includes systemic sclerosis,Raynaud's sclerodactyly, h/o scleroderma rafa crisis resulting in Stage 3 CKD and GERD whom we wereasked to see by SUNDEEP Miller regarding Chief Complaint Patient presents with ??? Encopresis (fecal incontinence) Patient reports that her anorectal symptoms began about a year and a half ago, with no known trigger. She does state that she had noticed that in the years preceding onset of symptoms, there had been a gradual decline in her ability to control stool, though on seldom occasion. Patient has been evaluated for her troubles with altered bowel habits and pelvic floor dysfunction by SUNDEEP Horowitz. Per report of their last visit, patient had tried several interventions to improve her symptoms of fecal incontinence, including pelvic physical therapy (which actually had significant improvement) as well as Kegel exercises, Amitiza, and fiber supplement. Patient also underwent sitz marker studies, which were within normal limits, as well as anorectal manometry, which revealed low anal canal pressure, but otherwise excellent squeeze pressures. Due to failure of medical management of the fecal incontinence, patient has been referred to our clinic for evaluation for more invasive intervention, namely Solesta versus sacral nerve stimulation. Patient states that her main symptoms at this point are daily leakage and seepage of brown liquid from the rectum following bowel movements, occasionally also having troubles with solid pieces of stool leaking out of her bottom. She states that she tried Metamucil for a few months last year but this did not help improve symptoms at all and left her feeling bloated. She therefore discontinued that and started eating a high-fiber diet instead, which had minimal relief. She is moving her bowels at her baseline right now, typically which is one large bowel movement in the morning, which she can fully control, followed by smaller bowel movements later in the day, which she says she cannot always control and this is the time when she has troubles with both leakage and seepage of mucus from the rectum as well as troubles with solid stool escaping. Generally speaking, her bowel movements are soft. There is no trouble with melena or hematochezia. No pain with passage of stool. She endorses occasional urgency, also endorses incontinence to stool occasionally, but the smears on a daily basis. For this, she goes through about seven to eight pads per day in an attempt to stay clean. She is frequently incontinent to gas. Patient notes that her symptoms actually improved a bit once she discontinued the Sildenafil about a month ago. She also endorses tenesmus, but no troubles with prolapse. No change in baseline urinary habits, no hematuria, no dysuria. She does endorse stress incontinence. No unusual vaginal discharge. Of note, patient states that due to her troubles with sensation of leakage and seepage, she will often be in the bathroom from anywhere from one to two hours to fully evacuate and clean. Gynecologic history is negative for labor. Patient has undergone colonoscopy once in her lifetime about a year and a half ago in [place], [place]. Per her report, that study was negative for abnormality and she was advised to repeat the study in ten years. We do not, however, have report of that study on file here. No history of prior anorectal surgery or procedure. No history of anorectal trauma prior to symptom onset. Past medical history: Patient Active Problem List Diagnosis Code ??? [...] and fascia M62.9 ??? Fecal incontinence R15.9 Past surgical history: Past Surgical History Procedure Laterality Date ??? Created by interface Entered not Verified Procedure Date: 01/27/2011 ??? Created by interface No History of Operative Procedures Procedure Date: 01/27/2011 ??? Dilation and curettage of uterus ??? 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 ??? [DISCONTINUED] sildenafil (REVATIO) 20 mg Tablet Take 1 tablet by mouth 5 times daily. 450 tablet 3 No current facility-administered medications on file prior to visit. Social history: reports that she quit smoking about 27 years ago. Her smoking use included Cigarettes. She has a 10 pack-year smoking history. She has never used smokeless tobacco. She reports that she does not drink alcohol or use illicit drugs. Family medical history: No known colorectal cancer, colorectal polyps, diverticular disease, Crohn disease or ulcerative colitis. Family History Problem Relation Age of Onset ??? Glaucoma Brother ??? Diabetes Maternal Grandmother ??? Cancer Neg Hx Review of Systems as above, otherwise: Constitutional: Negative for fever, chills, activity change, mild fatigue and unexpected weight change. HEENT: Negative for sore throat, mouth sores and trouble swallowing. Eyes: Negative for diplopia or vision change. Respiratory: Negative for cough, shortness of breath and wheezing. Cardiovascular: Negative for chest pain, palpitations and leg swelling. Gastrointestinal: As above. Genitourinary: Negative for dysuria and difficulty urinating. Neurological: No numbness, tingling or tremors, no fainting. Hematological: Negative for adenopathy. Physical Exam: Blood pressure 147/81, pulse 60, temperature 36.3 ??C (97.3 ??F), resp. rate 18, height 170.2 cm (5' 7), weight 63.957 kg (141 lb), last menstrual period 11/27/2014, SpO2 100 %. Body mass index is 22.08 kg/(m^2). NAD, very pleasant female, moist mucus membranes. No pallor. Anicteric. No audible wheeze, and no increased work of breathing. No JVD. The patient was examined in the left lateral position with Pavan assisting. Gentle eversion of the anoderm revealed slightly patulous anus. No fissure. No prolapsing tissue. Resting tone was diminished, but squeeze/aumengtation was within normal limits. ROSY was unremarkable. Impression: Fecal incontinence, to formed stool and to mucus Plan: I discussed the etiology and pathophysiology of fecal incontinence with the patient. My goal in having this discussion was to accurately ascertain from her whether her troubles were limited to daily smears of mucus and stool versus loss of actual solid formed stool, as I felt the recommended interventions for those would be drastically different. On further discussion, patient reports that she is most bothered by losing solid pieces of stool several days of every week. As such, I did discuss her briefly with Dr. Leija. At this point, patient's workup includes not only anorectal manometry and pelvic physical therapy/biofeedback training, but also sitz marker studies, which by patient report she had passed all but two of the markers by day two. At this point, if she is truly having robin fecal incontinence and losing solid stool, I feel that sacral nerve stimulation would be the best intervention to try and bring her relief of those symptoms. On the other hand, if her symptoms are limited to leakage and seepage of mucus and loose stool, then a bulking agent such as Solesta could be adequate to bring her symptomatic relief. I discussed both of these interventions with the patient further, and she is adamant that she is not interested in proceeding with sacral nerve stimulation. She has done some research online regarding that intervention and states that she truly believes it is not the right intervention for her, as she tends to have prolonged periods of pain following any operative intervention that requires incision into the skin. What I advised her at this point is that our first step, regardless of choice of intervention, is that she start a daily fiber supplement to help bulk stool and hopefully decrease the loose leakage she has been having. She says she cannot use Metamucil due to bloating and so I will have her start Citrucel one heaping tablespoon a day starting today. In addition to that, we will have her start keeping a bowel diary as of today, and she was instructed in how to use that in terms of keeping track of any and all episodes of incontinence every day for the next two weeks. I will schedule her to return to clinic for followup evaluation and final decision making at that time, once she has been strictly adherent to the fiber for two weeks and has a full two-week bowel diary. I will make that visit with Dr. Leija so that the two of them can decide on the best intervention (Solesta versus neurostim). Patient is in agreement with the plan as stated herein and will call me with any questions or concerns that arise prior to her next visit. Thank you for the consultation. We appreciate the opportunity to take part in Amber Wells's care. Diann Cain PA-C Division of Colon & Rectal Surgery [facility] [phone] CC: NIESHA GONZALEZ MD documented in this encounter Plan of Treatment Upcoming Encounters Date Type Department Care Team (Late st Contact Info) Description 10/07/2024 11:30 AM EST Office Visit Dermatology at [address] [address] Jo Ordaz MD [facility] [place] [address] 12/13/2024 11:30 AM EST Appointment [place] [address] 12/13/2024 1:00 PM EST Office [place] [address] Kiet Pardo MD [facility] [place] [address] Scheduled Referrals Name Type Priority Associated Diagnoses Orde r Schedule Referral to Colorectal Surgery Outpatient Referral Routine Fecal incontinence Ordered: 11/11/2015 documented as of this encounter Visit Diagnoses Diagnosis Fecal incontinence Full incontinence of feces documented in this encounter Care Teams Cleaning And Washing Equipment Operator Relationship Specialty Start Date End Date Niesha Gonzalez MD [address] [place] [id number] PCP - General 03/27/12 11/27/18 documented as of this encounter
--- OUTSIDE RECORDS SUMMARY | 2024-09-14 13:11 | XMS_ITS | Encounter Summary ---
Author Organization [facility] [address] [address] Care Team Providers Care Wire Charger Name Role Phone Yaritza Pierre MD Primary Care Provider [phone] Encounter Details Date Type Department Care Team (Late st Contact Info) Description 11/27/2015 Orders [place] [address] Yu Mcdonough [facility] [place] [address] Social History Tobacco Use Types Packs/Day Years [...] 11:30 AM EST Office Visit Dermatology at [facility] [address] [place] [address] Jo Ordaz MD [facility] [address] 12/13/2024 11:30 AM EST Appointment [place] [phone] 12/13/2024 1:00 PM EST Office [place] [phone] Kiet Pardo MD [facility] [address] documented as of this encounter Visit Diagnoses Not on filedocumented in this encounter Care Teams Wire Charger Relationship Specialty Start Date End Date Yaritza Pierre MD [address] [place] [id number] PCP - General 03/27/12 11/27/18 documented as of this encounter
--- OUTSIDE RECORDS SUMMARY | 2024-09-14 13:11 | XMS_ITS | Encounter Summary ---
Author Organization [facility] [place] [address] Care Team Providers Care Sales Representative Facility Services Name Role Phone Niesha Gonzalez MD Primary Care Provider [phone] Reason for Visit * Reason Comments Follow-up Encounter Details Date Type Department Care Team (Late st Contact Info) Description 12/24/2015 12:30 PM EST Office [place] [address] [facility] [place] [address] Fecal incontinence; Scleroderma Social History Tobacco Use Types Packs/Day [...] Reading Time Taken Comments Blood Pressure 123/69 12/24/2015 12:32 PM EST Pulse 77 12/24/2015 12:32 PM EST Temperature 36.9 ??C (98.4 ??F) 12/24/2015 12:[address] Respiratory Rate - - Oxygen Saturation 98% 12/24/2015 12:32 PM EST Inhaled Oxygen Concentration - - Weight 64 kg (141 lb 1.5 oz) 12/24/2015 12:32 PM EST Height - - Body Mass Index 22.1 12/10/2015 9:26 AM EST documented in this encounter Progress Notes * Jeronimo Tai MD - 12/24/2015 2:25 PM EST Colorectal Surgery History and Physical Amber Wells is a very pleasant 55 y/o female with scleroderma who presents for discussion of fecal incontinence. Amber states that over the last two years, as her scleroderma has progressed, she has begun to have problems with leakage of liquid stool (1-2 tablespoon volumes) and/or problems with fecal smears throughout the day. Since being seen in our office 12/10 Amber has kept a continence diary. Review of this shows that these episodes occur every day, and often multiple times per day. Amber describes her bowel movements as regular, twice daily. Amber tried fiber supplements but became frustrated by a sense of constipation. She states that she is aware that she has slow transit relative to her scleroderma. This does not bother her and she feels that she is able to evacuate fully every day. Her complains center around frustration with smears and leakage and the constant need to wash in order to maintain hygiene. Amber's last colonoscopy was 2 years ago andwas normal. Amber talked at length with Diann about options for treatment of incontinence and she is specifically interested in Solesta. 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 Past surgical history is notable only for two back surgeries to remove her desmoid tumor. Daily home medications include fosinopril 40 mg daily, amlodipine 10 mg daily, nexium 40 mg daily, vitamin E, vitamin D, glyceral hand cream and tylenol. No known allergies. No family history of colorectal cancer, ulcerative colitis of Crohn's disease. Amber lives in [place] with her boyfriend, dogs and cats. She has never had children. She doesnot drink, smoke, or use illicit drugs. Review of Systems: Constitutional: denies fevers, chills, night sweats, weight loss/gain Neurologic: denies headaches, stroke, seizure HEENT: denies recent changes to vision/hearing denies epistaxis denies dysphagia Cardiovascular: denies chest pain, palpitations Respiratory: denies shortness of breath, cough, hemoptysis Gastrointestinal: as per HPI Genitourinary: denies dysuria, hematuria, incontinence, sexual dysfunction Hematologic: denies abnormal bruising / bleeding Endocrine: denies heat/cold intolerance, polyuria, polydipsia Musculoskeletal: denies muscle and joint pain Integumentary: denies rashes, skin lesions Psychiatric: denies depression, anxiety Physical Examination: Gen: Awake, alert, oriented, knowledgeable and pleasant HEENT: PERRLA, sclera anicteric, conjunctiva pale, mucous membranes moist Neck: no palpable masses Cor: regular rate and rhythm, s1s2, no murmur Pulm: lungs clear to auscultation bilaterally Back: no CVA tenderness Abd: soft, non-tender, non-distended, normal active bowel sounds, no rebound or guarding Gu/rectal: deferred Ext: extremities warm, cap refill brisk Skin: skin about the eyes, mouth, and hands is drawn tight as is characteristic of scleroderma Neuro: no focal neurologic findings Assessment: - mild fecal incontinence likely secondary to soft tissue changes about the anus caused by scleroderma, lifestyle-limiting Plan: - We discussed multiple treatment modalities with Amber ranging from dietary changes to sacral nerve stimulation, Solesta, and even colostomy. Amber feels strongly that she has done all that she can in the way of dietary modification, fiber supplementation, and pelvic floor strength training. She is very interested in Solesta and very resistant to any more invasive options. Solesta may sue very good options for Amber's mild incontinence. We explained that success with Solesta would include a 50% accident reduction rate and we made it clear that it is unrealistic for her to expect perfect continence following the injections. We discussed the fact that a second injection may benecessary. We talked about the small but real risk of an infection or abscess, possibly even requiring surgery. WE explained that there is no perfect way to predict how Smiths scleroderma will interact with the therapy. Amber understands and wants to proceed. We explained that it may take some weeks to get insurance approval for the injections and we will begin that process now. Patient seen and examined with Dr. Leija. JERONIMO TAI MD [id number] I have seen the patient and reviewed the resident's above history and I agree with the details as written. The assessment and plan were formulated in discussion with me and I agree with them as documented. Pertinent History: Amber is a 55 year old woman with fecal incontinence episodes. She has good tone, but has had issues due to her systemic scleroderma. Major issues addressed: Fecal incontinence, Systemic Scleroderma Plan: Amber and I discussed that she had mild incontinence, mostly to liquid stool in between bowel movements and some smears. This does not sound like a pretty substantial amount in frequency. She has about one incontinence episode a day, so roughly about 14 episodes. If this reduces to seven episodes, this would be considered a success. I discussed with Amber many different options, including dietary modification, which she has done; pelvic physical therapy, which she has done; medications, which she has done; as well as other surgical options, including SECCA treatment, Solesta, sacral nerve stimulation, and other treatments, which I do not think would be beneficial for her. Finally, we determined that Solesta would be the best option for her, as it is the least invasive. We would proceed with Solesta injection. I discussed the potential for reduction of accidents by 50% would be considered a success. We discussed the potential for infection and bleeding, which is a major risk with Solesta. Amber understands. She understands that there have been issues with insurance coverage of Solesta. I have discussed with her that I will attempt to contact the Solesta rep in order to get a better understanding about what is going on with regards to insurance coverage. Amber understands that this may take weeks to months to figure out, and she is willing to wait. All questions were answered. We will contact her once we have a better idea regarding her insurance coverage for Solesta. 35 minutes of this 35-minute visit was spent [id number] in counseling and coordination of care for fecal incontinence COREFO Responses 12/09/2015 12/17/2015 Incontinence Scale 72.22 47.22 Social Impact Scale 83.33 69.44 Frequency Scale 25 12.5 Stool Releated Aspects 16.66 8.33 Medication Scale 75 25 Total COREFO Score 66.34 45.19 The COREFO questionnaire is a validated questionnaire with 27 questions to assess colorectal functional outcome. Patients are asked to consider the two week period prior before filling out the questionnaire. Category scores range from zero to 100. A total score is calculated from the categories above, also ranging from zero to 100. A higher score represents an increased level of functional disturbance. * Roman Leija MD - 12/24/2015 12:56 PM EST Colorectal Surgery Outpatient Consultation Note [place] [address] COREFO Responses 12/09/2015 12/17/2015 Incontinence Scale 72.22 47.22 Social Impact Scale 83.33 69.44 Frequency Scale 25 12.5 Stool Releated Aspects 16.66 8.33 Medication Scale 75 25 Total COREFO Score 66.34 45.19 The COREFO questionnaire is a validated questionnaire with 27 questions to assess colorectal functional outcome. Patients are asked to consider the two week period prior before filling out the questionnaire. Category scores range from zero to 100. A total score is calculated from the categories above, also ranging from zero to 100. A higher score represents an increased level of functional disturbance. PCP: NIESHA GONZALEZ MD Referring Provider: Niesha Gonzalez [phone] HPI:Amber Wells is a very pleasant 55 y.o. 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 [...] a year and a half ago in [place], [place]. Per her report, that study [...] Negative for adenopathy. Physical Exam: Blood pressure 123/69, pulse 77, temperature 36.9 ??C (98.4 ??F), weight 64 kg (141 lb 1.5 oz), last menstrual period 11/27/2014, SpO2 98 %. Body mass index is 22.09 kg/(m^2). NAD, very pleasant female, moist mucus membranes. No pallor. Anicteric. No audible wheeze, and no increased work of breathing. No JVD. The patient was examined in the left lateral position with Pavan assisting. Gentle eversion of the anoderm revealed slightly patulous anus. No fissure. No prolapsing tissue.Resting tone was diminished, but squeeze/aumengtation was within [...] PA-C Division of Colon & Rectal Surgery [facility] [phone] CC: NIESHA GONZALEZ MD documented in this encounter Plan of Treatment Upcoming Encounters Date Type Department Care Team (Late st Contact Info) Description 10/07/2024 11:30 AM EST Office Visit Dermatology at [place] [address] [place] [address] [facility] [place] [address] 12/13/2024 11:30 AM EST Appointment [place] [phone] 12/13/2024 1:00 PM EST Office [place] [phone] [facility] [place] [address] documented as of this encounter Visit Diagnoses Diagnosis Fecal incontinence Full incontinence of feces Scleroderma Systemic sclerosis documented in this encounter Care Teams Sales Representative Facility Services Relationship Specialty Start Date End Date Niesha Gonzalez MD [address] [place] [address] PCP - General 03/27/12 11/27/18 documented as of this encounter
--- OUTSIDE RECORDS SUMMARY | 2024-09-14 13:11 | XMS_ITS | Encounter Summary ---
[place] [address] Care Team Providers Care Deblocker Name Role Phone Yaritza Pierre MD Primary Care Provider [phone] Reason for Referral * Diagnostic Test (Routine) - Closed Specialty Diagnoses / Procedures Referred By Wander hernandez Referred To Contact Radiology Diagnoses Desmoid Procedures MRI Upper Extremity Non Joint With/WO Contrast Breanna Ordoñez MD [facility] [place] [address] [place] [address] Referral ID Status Reason Start Date Expiration Date V isits Requested Visits Authorized [id number] Closed Specialty Service Requested 09/15/2016 11/14/2016 1 1 Encounter Details Date Type Department Care Team (Late st Contact Info) Description 09/18/2015 1:45 PM EDT Office Visit [place] [address] Breanna Ordoñez MD [facility] [place] [address] Desmoid Social History Tobacco Use Types Packs/Day Years [...] Sign Reading Time Taken Comments Blood Pressure 151/74 09/18/2015 1:42 PM EDT Pulse 86 09/18/2015 1:42 PM EDT Temperature - - Respiratory Rate 16 09/18/2015 1:42 PM EDT Oxygen Saturation 99% 09/18/2015 1:42 PM EDT Inhaled Oxygen Concentration - - Weight 63 kg (139 lb) 09/18/2015 1:42 PM EDT Height - - Body Mass Index 21.77 06/12/2015 9:09 AM EDT documented in this encounter Progress Notes * Breanna Ordoñez MD - 09/29/2015 5:17 PM EST Surgical Oncology Follow up Note 6 month follow up Last seen 02/20/15 Desmoid on the back HPI:Mrs Wells is [...] 0.1 cm of caudal margin. Postop seroma 08/28/14 MRI with and without gadolinium: Approximately 29 x 9 x 19 mm loculated subcutaneous collection of fluid overlying the left upper thoracic paraspinal muscles and trapezius compatible with a postoperative fluid collection which may be sterile or infected. 2. No nodular areas of masslike enhancement to suggest specific evidence of residual or recurrent tumor. MRI 4/2/15 Since the prior MRI of 08/28/2014, there has been decrease in size of the now 17 x 4 x 10 mm T2 hyperintense postoperative fluid collection located in the subcutaneous fat of the left paraspinal region, previously measuring 9 x 29 x 17 mm in size. There is a surrounding relatively thick rim of enhancing tissue however in the subcutaneous fat measuring approximately 5 x 1.4 x 4.2 cm in size, which does appear to have increased slightly since prior with soft tissue enhancement appearing to extend into the superficial margin of the underlying trapezius muscle, identified best on series 9-52. Finding is worrisome for residual or recurrent desmoid tumor. No new soft tissue mass identified otherwise. No mediastinal lymphadenopathy or left axillary lymphadenopathy is detected.Partially imaged T2 hyperintense lesions within the visualized upper portion of the liver, not optimally characterized. These are statistically likely to represent either cysts or hemangiomas though would consider further assessment with a right upper quadrant ultrasound if no prior cross-sectional imaging has been performed elsewhere. Amber is here for 6mth follow up. She is one year out from her multiple resections. She reportsthat her back continues to feel much better at rest. She does have 8/10 pain after walking. She takes tylenol with some relief. At baseline/at rest pain is 1/10. She has not tried hot or cold topicaltreatment. She has not noticed any growth. No lumps or bumps in her back. PMH: scleroderma, HTN, Scleroderma hypertensive crisis with [...] mouth 5 times daily. 450 tablet 3 ??? vitamin E 400 unit Capsule Take 400 Units by mouth daily. ??? fosinopril (MONOPRIL) 40 mg Tablet Take 1 tablet by mouth daily. 90 tablet 3 ??? esomeprazole (NEXIUM) 40 mg Capsule, Delayed Release(E.C.) Take 1 capsule by mouth 2 times daily. 180 capsule 3 ??? 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 She is active and enjoys biking, swimming and kayaking. Smoking: Denies. Second hand smoker from Mike ETOH: 1 glass wine/wk FAMILY HISTORY: sister with melanoma PHYSICAL EXAMINATION: Constitutional: This is a thin female in no apparent distress BP 151/74 mmHg Pulse 86 Resp 16 Wt 63.05 kg (139 lb) SpO2 99% LMP 11/27/2014 Eyes: anicteric, extra ocular movements [...] white with taught skin. MRI done today 09/18/15 The postoperative fluid collection superficial to the left trapezius continues to diminish in size now measuring 2.1 x 0.3 cm. There is a surrounding rim of T2 hypointense, spiculated enhancing soft tissue extending from the collection into the adjacent subcutaneous tissues and the superficial most aspect of the trapezius muscle. This ill-defined region of abnormal signal intensity measures approximately 5 cm in diameter. No focal soft tissue mass or nodular enhancement is identified. The cyst seen in the liver the patient's earlier study are not identifiable on the current study due to extensive motion artifact. Small axillary, mediastinal and hilar lymph nodes are unchanged. No additional osseous or soft tissue abnormalities are identified. IMPRESSION IMPRESSION: There has been a further decrease in the size of the previously seen postoperative seroma. I do not see evidence of local recurrence. LABS Cr 1.4 (09/18/15) Impression: Amber Wells is a 54 y.o. 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 On exam today there is no evidence of mass or recurrence. MRI shows a continued decrease in seroma, stable enhancement that does not suggest recurrence. She does have discomfort after exercise which is likely due to scar tissue in thatarea. This is exaccerbated ny her scleroderma. We discussed physical therapy may help alleviate this discomfort. She has a local physical therapist that she would like to use. Given Otherwise, we discussed continued surveillance. If she feels any increase size or pain she will call sooner. Otherwise, we will repeat imaging in one year. If she has progression, I will refer her to medical oncology to consider medical treatment since new data is promising active agents for desmoid tumors. The patient is in agreement with the plan. Plan: 1) Repeat MRI w/wo contrast to evaluate desmoid of back in 12 months 2) Return to clinic in 12 months or sooner is symptoms arise 3) Physical therapy for evaluation of pain with exercise - patient will let us know the provider she would like referral to. Breanna Ordoñez MD Surgical Oncology documented in this encounter Plan of Treatment Upcoming Encounters Date Type Department Care Team (Late st Contact Info) Description 10/07/2024 11:30 AM EST Office Visit Dermatology at [place] [address] [place] [address] Jo Ordaz MD [facility] [place] [address] 12/13/2024 11:30 AM EST Appointment [place] [address] 12/13/2024 1:00 PM EST Office [place] [address] Kiet Pardo MD [facility] [place] [address] documented as of this encounter Results * [...] behavior of connective and other soft tissue 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
--- OUTSIDE RECORDS SUMMARY | 2024-09-14 13:11 | XMS_ITS | Encounter Summary ---
Author [place] [address] Care Team Providers Care Bioinformatics Technician Name Role Phone Yaritza Pierre MD Primary Care Provider [phone] Reason for Visit * Reason Onset Date Comments Prior Authorization 09/30/2015 Encounter Details Date Type Department Care Team (Late st Contact Info) Description 09/30/2015 Telephone [place] [phone] Alina An Prior Authorization Social History Tobacco Use Types [...] encounter Miscellaneous Notes * Telephone Encounter - Alina An - 09/30/2015 8:47 AM EST Medication Prior Authorization DR LANDON Medication name/dose/directions: SILDENAFIL Rationale for request: RAYNAUD'S Health plan: [employer] Authorizing asset protection representative name: Faxed to health plan on: 11/6/15 Health plan decision: DENIED Authorization number: Start date: End date: Patient notified? yes Pharmacy notified? yes documented in this encounter Plan of Treatment Upcoming Encounters Date Type Department Care Team (Late st Contact Info) Description 10/07/2024 11:30 AM EST Office Visit Dermatology at [facility] [address] [place] [address] Jo Ordaz MD [facility] [place] [address] 12/13/2024 11:30 AM EST Appointment [place] [address] 12/13/2024 1:00 PM EST Office [place] [address] Kiet Pardo MD [facility] [address] documented as of this encounter Visit Diagnoses Not on filedocumented in this encounter Care Teams Bioinformatics Technician Relationship Specialty Start Date End Date Yaritza Pierre MD [address] [place] [address] PCP - General 03/27/12 11/27/18 documented as of this encounter
--- OUTSIDE RECORDS SUMMARY | 2024-09-14 13:11 | XMS_ITS | Encounter Summary ---
[place] [address] Care Team Providers Care Roundhouse Firer/Fireman Name Role Phone Yaritza Pierre MD Primary Care Provider [phone] Reason for Visit * Reason Onset Date Comments Prior Authorization 11/11/2015 mo enied Encounter Details Date Type Department Care Team (Late st Contact Info) Description 11/11/2015 Telephone [place] [address] Logan Elias Prior Authorization (sandy-denied) Social History Tobacco Use Types Packs/Day Years [...] encounter Miscellaneous Notes * Telephone Encounter - Logan Elias - 11/11/2015 9:46 AM EST Received fax from [employer], the patient's insurance, denying sildenafil. Original request submitted by Alina michel. In part the denial says: The information given did not indicate that you child meet(s) the following criteria: * A diagnosis of group 1-PAH defined by pulmonary arterial pressure greater than 25 mmHg at rest orgreater than 30 mmHg with exertion; AND Symptoms of PAH have progressed despite medical or surgicaltreatment of the underlying disorder; AND the member has received a negative acute vaso reactivity testing; OR A poor response, intolerance, or contraindication to calcium channel blockers like diltiazem or amlodipine. Insurance ID# [id number] Reference ID# [id number] EOC Event ID# [id number] [place] to do an appeal by phone M-W 8 AM-8 PM or - 8 AM -6 PM (except holidays). Written appeals: [employer] ATTN: Appeals and Greivances Specialist [facility] [address] [place] [phone] documented in this encounter Plan of Treatment Upcoming Encounters Date Type Department Care Team (Late st Contact Info) Description 10/07/2024 11:30 AM EST Office Visit Dermatology at [address] [address] Jo Ordaz MD [facility] [place] [address] 12/13/2024 11:30 AM EST Appointment [place] [address] 12/13/2024 1:00 PM EST Office [place] [address] Kiet Pardo MD [facility] [place] [address] documented as of this encounter Visit Diagnoses Not on filedocumented in this encounter Care Teams Roundhouse Firer/Fireman Relationship Specialty Start Date End Date Yaritza Pierre MD [address] [place] [address] PCP - General 03/27/12 11/27/18 documented as of this encounter
--- OUTSIDE RECORDS SUMMARY | 2024-09-14 13:11 | XMS_ITS | Encounter Summary ---
[place] [address] Care Team Providers Care Retail Specialist Name Role Phone Yaritza Pierre MD Primary Care Provider [phone] Encounter Details Date Type Department Care Team (Late Contact Info) Description 02/11/2016 Telephone [place] [address] Krystal Harris Social History Tobacco Use Types [...] Telephone Encounter - Krystal Harris - 02/11/2016 11:55 AM EDT Radiology questions documented in this encounter Plan of Treatment Upcoming Encounters Date Type Department Care Team (Late st Contact Info) Description 10/07/2024 11:30 AM EST Office Visit Dermatology at [facility] [address] [place] [address] Jo Ordaz MD [facility] [place] [address] 12/13/2024 11:30 AM EST Appointment [place] [address] 12/13/2024 1:00 PM EST Office [place] [address] Kiet Pardo MD [facility] [place] [address] documented as of this encounter Visit Diagnoses Not on filedocumented in this encounter Care Teams Retail Specialist Relationship Specialty Start Date End Date Yaritza Pierre MD [address] [place] [address] PCP - General 03/27/12 11/27/18 documented as of this encounter
--- OUTSIDE RECORDS SUMMARY | 2024-09-14 13:11 | XMS_ITS | Encounter Summary ---
[place] [address] Care Team Providers Care Counselor Education Professor Name Role Phone Yaritza Pierre MD Primary Care Provider [phone] Reason for Referral * Diagnostic Test (Routine) - Closed Specialty Diagnoses / Procedures Referred By Wander hernandez Referred To Contact Radiology Diagnoses Scleroderma Abdominal bloating Nausea Procedures MRI Enterography With/WO Contrast Evelyn Miller APRN [facility] [place] [address] [place] [address] Referral ID Status Reason Start Date Expiration Date V isits Requested Visits Authorized [id number] Closed Specialty Service Requested 03/10/2016 05/09/2016 1 1 Encounter Details Date Type Department Care Team (Late st Contact Info) Description 02/26/2016 Telephone [place] [address] Evelyn Miller SUPER[employer] [facility] [place] [address] Social History Tobacco Use Types Packs/Day Years [...] Telephone Encounter - Evelyn Miller APRN - 02/26/2016 4:59 PM EDT Contacted Amber regarding the results of her KUB that revealed a moderate to large amount stoolthroughout the colon as detailed above. Gas-distended nondilated loop of small bowel within the midabdomen may exhibit the classic hide bound pattern of intestinal scleroderma. Discussed the findings with Amber and recommend MRE to further evaluate findings. Reviewed her lab work that revealednormal K, LFT's. Her creat/GFR remains unchanged from previous. She is amenable to imaging. Rifaximin will require PA therefore prescription for Flagyl 250 mg QID x 10 days ordered. Also discussed the fact that KUB showed mod-lg stool. She reports that BM improved with taking Imodium 1 tab after first BM of the day. If she does not take Imodium then will experience multiple BM and worsening fecal incontinence preventing her from being able to leave the house. Will have her continue Imodium for now. She tried Amitiza, Linaclotide, Smooth Move Tea, Miralax and fiber supplement that resulted in frequent BM's and fecal incontinence. documented in this encounter Plan of Treatment Upcoming Encounters Date Type Department Care Team (Late st Contact Info) Description 10/07/2024 11:30 AM EST Office Visit Dermatology at [facility] [address] [place] [address] Jo Ordaz MD [facility] [place] [address] 12/13/2024 11:30 AM EST [place]oint[place] [address] 12/13/2024 1:00 PM EST Office Visit Rheumatology at [facility] [place] [address] Kiet Pardo MD [facility] [place] [address] documented as of this encounter Results * MRI Enterography With/WO [...] eructation, and gas pain Nausea Nausea alone Scleroderma Systemic sclerosis Abdominal bloating Flatulence, eructation, and gas pain Nausea Nausea alone documented in this encounter Care Teams Counselor Education Professor Relationship Specialty Start Date End Date Yaritza Pierre MD [address] [place] [address] PCP - General 03/27/12 11/27/18 documented as of this encounter
--- OUTSIDE RECORDS SUMMARY | 2024-09-14 13:11 | XMS_ITS | Encounter Summary ---
Author Organization [facility] [place] [address] Care Team Providers Care Internet Programmer Name Role Phone Niesha Gonzalez MD Primary Care Provider [phone] Reason for Visit * MRI/CAT Scan (Routine) - Closed Specialty Diagnoses / Procedures Referred By Wander hernandez Referred To Contact Radiology Diagnoses Neoplasm of uncertain behavior of connective and other soft tissue Procedures PRG MRI UPPER EXTREMITY W/O&W CONTRAST Breanna Ordoñez MD [facility] [place] [address] [place] [address] Referral ID Status Reason Start Date Expiration Date Visits Re quested Visits Authorized [id number] Closed 09/16/2015 11/15/2015 1 1 Encounter Details Date Type Department Care Team (Late st Contact Info) Description 09/18/2015 10:42 AM EDT - 09/18/2015 10:43 AM EDT [place] [address] Breanna Ordoñez MD [facility] [place] [address] Desmoid Discharge Disposition: Home Social History Tobacco [...] as of this encounter Progress Notes * Kan Arellano RN - 09/15/2015 2:47 PM EDT VIR MRI PRE-SEDATION ASSESSMENT NOTE NAME: Amber Wells AGE: 55 y.o. : 1960 [address] [facility] [address] Female [phone] (home) Telephone Information: NIESHA GONZALEZ MD (General) None (Regular Care Provider) No Known Allergies Date/Time of call: September 15, 2015/2:48 PM/ PREVIOUS MRI SCAN? Yes HEIGHT: 5' 7 WEIGHT: 143 lbs. SCHEDULED SCAN: MRI upper extremity non joint with WO contrast. Back desmoid s/p resection. monitoring for progression/recurrence. SUBJECTIVE: I am claustrophobic CAN YOU LAY FLAT? yes DO YOU HAVE ANY PAIN ISSUES? no ASSESSMENT: Appropriate for PO sedation PLAN: Ativan PO per protocol and needs creatine Guidelines for MRI Pre-Procedures Laboratory Studies: GFR Date of lab draw 1. Creatinine studies (GFR level needed) within 90 days of scan ??? 70 yo or older if they are getting contrast ??? 50 years and older if they are diabetic and getting contrast ( ST ) You must have a medical driver present when you check in. This patient has been informed that they require a medical driver to drive them home after this procedure. In the absence of a medical driver, IR will not be able to sedate for your scan. Pt verbalized understanding of these instructions during the pre-procedure education via phone. Yes [place] of medical driver: Will have medical driver Phone number 08/28/14MRI with PO sedation Ativan 1 mg x 2 po yes 02/17/15MRI Upper Ext wwo Ativan 1 mg x 2 po yes 09/18/2015 MRI Upper Extremity Non Joint w/wo Ativan 2 mg PO Yes PT STATED TO WAX BLENDER THAT THE SEDATION WAS EFFECTIVE FOR SCAN: Y__[id number]___[id number] COMMENTS: documented in this encounter Plan of Treatment Upcoming Encounters Date Type Department Care Team (Late st Contact Info) Description 10/07/2024 11:30 AM EST Office Visit Dermatology at [address] [place] [address] Jo Ordaz MD [facility] [place] [address] 12/13/2024 11:30 AM EST Appointment Pulmonology at [facility] [place] [address] 12/13/2024 1:00 PM EST [place] [address] Kiet Pardo MD [facility] [place] [address] documented as of this encounter Procedures Procedure Name Priority Date/Time Associated Diagnosis Comments MRI UPPER EXTREMITY NON JOINT WITH/WO CONTRAST Routine 09/18/2015 1:21 PM EDT Desmoid documented in this encounter Results * MRI upper extremity non joint with/WO contrast (09/18/2015 1:21 PM EDT) Anatomical Region Laterality Modality Shoulder, Arm, Elbow, Forearm, Wrist, Hand Magnetic Resonance Impressions 09/18/2015 2:28 PM EDT IMPRESSION: There has been a further decrease in the size of the previously seen postoperative seroma. I do not see evidence of local recurrence. Narrative 09/18/2015 2:28 PM EDT EXAMINATION: MRI UPPER EXTREMITY NON JOINT WITH/WO CONTRAST/LEFT CLINICAL HISTORY: back desmoid s/p resection. monitoring for progression/recurrence. TECHNIQUE: Pre and postcontrast MRI of the left chest wall was performed. Contrast: 6 mL of IV Gadavist were used. COMPARISON: 02/17/2015 FINDINGS: The postoperative fluid collection superficial to the [...] osseous or soft tissue abnormalities are identified. Procedure Note Flako Sullivan MD - 09/18/2015 EXAMINATION: MRI UPPER EXTREMITY NON JOINT WITH/WO CONTRAST/LEFT CLINICAL HISTORY: back desmoid s/p resection. monitoring for progression/recurrence. TECHNIQUE: Pre and postcontrast MRI of the left chest wall wasperformed. Contrast: 6 mL of IV Gadavist were used. COMPARISON: 02/17/2015 FINDINGS: The postoperative fluid collection superficial to the left trapeziuscontinues to diminish in size now measuring 2.1 x 0.3 cm. There is a surrounding rim of T2 hypointense, spiculated enhancing softtissue extending from the collection into the adjacent subcutaneous tissues andthe superficial most aspect of the trapezius muscle. This ill-defined regionof abnormal signal intensity measures approximately 5 cm in diameter. Nofocal soft tissue mass or nodular enhancement is identified. The cyst seen in the liver the patient's earlier study are notidentifiable on the current study due to extensive motion artifact. Small axillary, mediastinal and hilar lymph nodes are unchanged. Noadditional osseous or soft tissue abnormalities are identified. IMPRESSION IMPRESSION: There has been a further decrease in the size of the previously seen postoperative seroma. I do not see evidence of local recurrence. Breanna Barreto MD IMG MRI ORDERABL ES documented in this encounter Visit Diagnoses Diagnosis Desmoid Neoplasm of uncertain behavior of connective and other soft tissue documented in this encounter Administered Medications Inactive Administered Medications - up to 3 most recent administrations Medication Order MAR Action Action Date Dose Rate Site LORazepam (ATIVAN) tablet 1-2 mg 1-2 mg, Oral, 2 TIMES DAILY PRN, Starting on 09/18/15 at 0000, Until 09/19/15 at 0438, Anxiety, Angio/IR (Day of Procedure), STAT Given 09/18/2015 11:25 AM EDT 1 mg Given 09/18/2015 10:55 AM EDT 1 mg documented in this encounter Care Teams Internet Programmer Relationship Specialty Start Date End Date Niesha Gonzalez MD [address] [place] [address] PCP - General 03/27/12 11/27/18 documented as of this encounter
--- OUTSIDE RECORDS SUMMARY | 2024-09-14 13:11 | XMS_ITS | Encounter Summary ---
Author Organization [facility] [place] [address] Care Team Providers Care Health And Safety Tech Name Role Phone Yaritza Pierre MD Primary Care Provider [phone] Encounter Details Date Type Department Care Team (Late st Contact Info) Description 11/10/2015 Abstract [place]phrology [place] [address] Randa Garcia RN NEPHROLOGY HYPERTENSION Social History [...] AM EST Office Visit Dermatology at [facility] [address] [place] [address] Jo Ordaz MD [facility] [place] [address] 12/13/2024 11:30 AM EST Appointment [place] [address] 12/13/2024 1:00 PM EST Office [place] [address] Kiet Pardo MD [facility] [place] [address] documented as of this encounter Visit Diagnoses Not on filedocumented in this encounter Care Teams Health And Safety Tech Relationship Specialty Start Date End Date Yaritza Pierre MD [address] [place] [address] PCP - General 03/27/12 11/27/18 documented as of this encounter
--- OUTSIDE RECORDS SUMMARY | 2024-09-14 13:12 | XMS_ITS | Encounter Summary ---
Author Organization [facility] [place] [address] Care Team Providers Care Lubricating Machine Tender Name Role Phone Yaritza Pierre MD Primary Care Provider [phone] Reason for Visit * Reason Onset Date Comments Other 07/11/2014 MAP-phone refill Encounter Details Date Type Department Care Team (Late st Contact Info) Description 07/11/2014 [place] [phone] Jamia Hinton (MAP-phone refill) Social History Tobacco Use Types Packs/Day Years [...] encounter Miscellaneous Notes * Telephone Encounter - Jamia Hinton - 07/11/2014 3:03 PM EDT MAP-phone refill I called [facility] to order a 90-day supply of Nexium 40 mg po twice daily. She has 2 refills left.I let Ms. Wells know that the medication will be shipped to her home address and to call me if she does not receive it. documented in this encounter Plan of Treatment Upcoming Encounters Date Type Department Care Team (Late st Contact Info) Description 10/07/2024 11:30 AM EST Office Visit Dermatology at [facility] [address] [place] [address] Jo Ordaz MD [facility] [place] [address] 12/13/2024 11:30 AM EST [place] [address] 12/13/2024 1:00 PM EST Office [place] [address] Kiet Pardo MD [facility] [address] documented as of this encounter Visit Diagnoses Not on filedocumented in this encounter Care Teams Lubricating Machine Tender Relationship Specialty Start Date End Date Yaritza Pierre MD [address] [place] [address] PCP - General 03/27/12 11/27/18 documented as of this encounter
--- OUTSIDE RECORDS SUMMARY | 2024-09-14 13:12 | XMS_ITS | Encounter Summary ---
[place] [address] Care Team Providers Care Surgical Manager Name Role Phone Yaritza Pierre MD Primary Care Provider [phone] Reason for Visit * Reason Comments Prior Authorization Encounter Details Date Type Department Care Team (Late st Contact Info) Description 12/01/2014 Telephone [place] [phone] Perlita Case RN DEPT OF GASTROENTEROLOGY Prior Authorization Social History Tobacco Use Types [...] encounter Miscellaneous Notes * Telephone Encounter - Perlita Eugene RN - 12/02/2014 11:10 AM EST PA approved: 12/02/2014-12/02/2015 Patient and pharmacy aware * Telephone Encounter - Perlita Eugene RN - 12/01/2014 10:41 AM EST .Prior Authorization Medication: Amitiza Dosage: 24 mcg Frequency & Route: po BID Insurance & Phone #: NICOL Bean ID #: [id number] TRIED:pysillium, dulcolax, colace,miralax Notes: Requested expedited decision Waiting on response documented in this encounter Plan of Treatment Upcoming Encounters Date Type Department Care Team (Late st Contact Info) Description 10/07/2024 11:30 AM EST Office Visit Dermatology at [address] [address] Jo Ordaz MD [facility] [place] [address] 12/13/2024 11:30 AM EST Appointment [place] [address] 12/13/2024 1:00 PM EST Office Visit [place] [address] Kiet Pardo MD [facility] [place] [address] documented as of this encounter Visit Diagnoses Not on filedocumented in this encounter Care Teams Surgical Manager Relationship Specialty Start Date End Date Yaritza Pierre MD [address] [place] [address] PCP - General 03/27/12 11/27/18 documented as of this encounter
--- OUTSIDE RECORDS SUMMARY | 2024-09-14 13:12 | XMS_ITS | Encounter Summary ---
Author Organization [facility] [place] [address] Care Team Providers Care Instrument Panel Assembler Name Role Phone Niesha Gonzalez MD Primary Care Provider Encounter Details Date Type Department Care Team (Late Contact Info) Description 08/08/2014 [place] [address] Niesha Gonzalez MD [address] [place] [address] Social History Tobacco Use Types Packs/Day Years [...] Encounters Date Type Department Care Team (Late Contact Info) Description 10/07/2024 11:30 AM EST Office Visit Dermatology at [facility] [address] [place] [address] Jo Ordaz MD [facility] [place] [address] 12/13/2024 11:30 AM EST Appointment [place] [address] 12/13/2024 1:00 PM EST Office [place] [address] Kiet Pardo MD [facility] [place] [place] [address] documented as of this encounter Procedures Procedure Name Priority Date/Time Associated Diagnosis Comments TURN DOWN MAN CYTOLOGY FINAL REPORT Routine 08/08/2014 12:00 PM EDT documented in this encounter Results * Auditor In Charge Cytology Final Report (08/08/2014 12:00 PM EDT) Auditor In Charge Cytology Final Report ? [facility] ? Provider: ?? NIESHA GONZALEZ ? Pt. Name: ?? EUNICE AMBER ? Acc #: ?[id number] ?Pt. ? Col Date: ?? 08/08/2014 ? /Sex: ?1960,(54 years),Female ? Rec Date: ?? 08/11/2014 ? LOC: ?[facility] ? CYTOPATHOLOGY: ??TURN DOWN MAN ? ---Adequacy--- ? Specimen submitted is satisfactory. ? Endocervical component present. ? ---Cytopathologic Diagnosis--- ? NORMAL ? Negative for Intraepithelial Lesion or Malignancy (NILM). ? 08/13/14 ?? Screened by: ??SLA ? 08/13/14 ?? Verified by: ??BETH Newell(ASCP), [place]sa [place] - ? Senior Clinical Research Associate ? ---Clinical Information--- ? HPV Option: ? Reflex HPV ? Preparation: ?Liquid Based Pap ? Specimen Source: ?Cervical Endocervical LBP ? LMP: ?07/24/14 ? Hormones?: ?No ? Hysterectomy?: ?No ?: ?No ?: ?No ? I.U.D.?: ?No ? Pelvic Radiation: ? No ? Prior TURN DOWN MAN Therapy?: ? Yes ? Hist Abnl Pap/Biopsy?: ??Yes ? Hist of HPV Vaccine?: ?? (not provided) ? Hist of Smoking?: ? (not provided) ? Hist of NAV exposure?: ??(not provided) ? Clinical Data, Significant Therapy and Clinical Impression: ?Referring Identifier: ??[id number] ? This Pap Test has been evaluated with the assistance of the ThinPrep Pap ? Test Imaging System. ? Note: ? The Pap test is a screening test for cervical cancer with an inherent ? false-negative rate dependent upon several variables. ??For further ? information please contact the [facility]. ? Reference: ??Jennie CS. ??Distillery Worker of Pap Smear Results. ??In: ? Annelise BS, Freddy HH, ed. ??The Pap Smear. ??[place]: ??Arnold, 2002: ? 71-77. SALVADOR TORRESENNIUM 08/08/2014 12:0 0 PM EDT Niesha Gonzalez MD PATHOLOGY/CYTOLOGY O RDERABLES SALVADOR VALENCIA documented in this encounter Visit Diagnoses Not on filedocumented in this encounter Care Teams Instrument Panel Assembler Relationship Specialty Start Date End Date Niesha Gonzalez MD [address] [place] [address] PCP - General 03/27/12 11/27/18 documented as of this encounter
--- OUTSIDE RECORDS SUMMARY | 2024-09-14 13:12 | XMS_ITS | Encounter Summary ---
Author Organization [facility] [place] [place] [address] Care Team Providers Care Valve Steamer Name Role Phone Yaritza Pierre MD Primary Care Provider [phone] Encounter Details Date Type Department Care Team (Late st Contact Info) Description 01/28/2015 Orders Only [place] [address] Breanna Ordoñez MD [facility] [place] [address] Social History Tobacco Use Types Packs/Day Years [...] 11:30 AM EST Office Visit Dermatology at [facility] [address] [place] [address] Jo Ordaz MD [facility] [place] [address] 12/13/2024 11:30 AM EST Appointment [place] [address] 12/13/2024 1:00 PM EST Office Visit [place] [address] Kiet Pardo MD [facility] [place] [address] documented as of this encounter Visit Diagnoses Not on filedocumented in this encounter Care Teams Valve Steamer Relationship Specialty Start Date End Date Yaritza Pierre MD [address] [place] [address] PCP - General 03/27/12 11/27/18 documented as of this encounter
--- OUTSIDE RECORDS SUMMARY | 2024-09-14 13:12 | XMS_ITS | Encounter Summary ---
Author Organization [facility] Address [facility] [place] [address] Care Team Providers Care 3Rd Grade Reading Teacher Name Role Phone Yaritza Pierre MD Primary Care Provider [phone] Reason for Visit * Reason Comments Established Encounter Details Date Type Department Care Team (Late st Contact Info) Description 02/20/2015 3:00 PM EDT Follow-Up [place] [address] Breanna Ordoñez MD [facility] [place] [address] Desmoid Discharge Disposition: Home Social History Tobacco [...] Sign Reading Time Taken Comments Blood Pressure 117/76 02/20/2015 4:09 PM EDT Pulse 78 02/20/2015 4:09 PM EDT Temperature 36.9 ??C (98.4 ??F) 02/20/2015 4:09 PM ED T Respiratory Rate 18 02/20/2015 4:09 PM EDT Oxygen Saturation 100% 02/20/2015 4:09 PM EDT Inhaled Oxygen Concentration - - Weight 64.1 kg (141 lb 5 oz) 02/20/2015 4:09 PM EDT Height - - Body Mass Index 22.13 02/17/2015 1:39 PM EDT documented in this encounter Progress Notes * Breanna Ordoñez MD - 02/24/2015 9:18 PM EDT Surgical Oncology Follow up Note 6 month follow up Desmoid on the back HPI:Mrs Wells is [...] specific evidence of residual or recurrent tumor. Amber is here for 6mth follow up. She reports that her back feels much better. The seroma has resolved and she has no complaints in the area of her back. She has not noticed any growth. No lumps or bumps. PMH: scleroderma, HTN, Scleroderma hypertensive crisis with [...] 1 tablet by mouth 3 times daily. 90 tablet 11 ??? cephALEXin (KEFLEX) 250 mg Capsule Take 1 capsule by mouth 4 times daily. 40 capsule 0 ??? metroNIDAZOLE (FLAGYL) 250 mg Tablet Take 1 tablet by mouth 4 times daily for 10 days. 40 tablet 0 ??? METHYLCELLULOSE (CITRUCEL ORAL) Take 1 tablet by mouth daily. ??? rifaximin (XIFAXIN) 550 mg Tablet Take 1 tablet by mouth 3 times daily for 10 days. 30 tablet 3 ??? 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 She is active and enjoys biking, swimming and kayaking. Smoking: Denies. Second hand smoker from [place] ETOH: 1 glass wine/wk FAMILY HISTORY: sister with melanoma PHYSICAL EXAMINATION: Constitutional: This is a thin female in no apparent distress BP 117/76 Pulse 78 Temp(Src) 36.9 ??C (98.4 ??F) Resp 18 Wt 64.1 kg (141 lb 5 oz) SpO2 100% Eyes: anicteric, extra ocular movements are intact Neuro: No focal deficits. Hearing and speech intact Psych: the patient is alert and oriented. Normal affect. Soft tissue exam: upper back to the left of the spine is an 8cm incision. Skin is flat but there ravi small amount of fluid. Small seroma much improved from prior exam. No erythema. No definite firm or hard areas felt. Skin: warm, thick and shiny, non-icteric. Fingers are white with taught skin. MRI done today 02/19/15 Since the prior MRI of 08/28/2014, there [...] prior cross-sectional imaging has been performed elsewhere. Impression: Amber Wells is a 54 y.o. 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 On exam today there is no evidence of mass or recurrence, yet the MRI does show enhancement in soft tissue at the superficial margin which may be residual tumor that we can see better now that postop inflammation and seroma is decreased, or it could be recurrent desmoid. I reviewed again the nature of desmoids with Amber. These are tumors that don't metastasize, yet they can be locally invasive and can recur. Primary desmoids have a variable course, where some may regress on their own, others stay dormant and other grow aggres sively. Given that she is completely asymptomatic we discussed continued surveillance. If she feelsany increase size or pain she will call sooner. Otherwise, we will repeat imaging in 6 months. If she has progression, I will refer her to medical oncology to consider medical treatment since new data is promising active agents for desmoid tumors. The patient is in agreement with the plan. Additionally, we discussed the incidental lesions in the liver which are likely benign. I will let her PCP know in order to do further workup if deemed necessary in light of her other co-morbidities.Desmoid tumor does not metastasize so the liver lesions are not related. Plan: 1) Repeat MRI w/wo contrast to evaluate desmoid of back in 6 months 2) Return to clinic in 6 months or sooner is symptoms arise 3) Follow up with PCP regarding incidental liver lesions, ? Cysts/hemangiomas Breanna Ordoñez MD Surgical Oncology 02/20/15 documented in this encounter Plan of Treatment Upcoming Encounters Date Type Department Care Team (Late st Contact Info) Description 10/07/2024 11:30 AM EST Office Visit Dermatology at [address] [address] Jo Ordaz MD [facility] [place] [address] 12/13/2024 11:30 AM EST Appointment [place] [address] 12/13/2024 1:00 PM EST Office Visit [place] [address] Kiet Pardo MD [facility] [place] [address] documented as of this encounter Results * MRI upper extremity [...] tissue documented in this encounter Care Teams 3Rd Grade Reading Teacher Relationship Specialty Start Date End Date Yaritza Pierre MD [address] [place] [address] PCP - General 03/27/12 11/27/18 documented as of this encounter
--- OUTSIDE RECORDS SUMMARY | 2024-09-14 13:12 | XMS_ITS | Encounter Summary ---
[place] [address] Care Team Providers Care Academic Associate Name Role Phone Yaritza Pierre MD Primary Care Provider [phone] Reason for Visit * Reason Onset Date Comments Other 01/21/2015 Encounter Details Date Type Department Care Team (Late st Contact Info) Description 01/21/2015 Telephone [place] [phone] Randa Garcia, RN NEPHROLOGY HYPERTENSION Other Social History Tobacco Use Types Packs/Day [...] Telephone Encounter - Randa Garcia RN - 01/21/2015 3:14 PM EST Telephone call placed to pt's insurance plan to check on the prior authorization for esomeprazole ([phone]). The initial PA was denied and a re-review was sent on 01/12/15. The business banking representative at [facility] states that they did not receive any review information. Information re-faxed to [phone]. I will plan on calling again in the next few days to check on the status of the review. documented in this encounter Plan of Treatment Upcoming Encounters Date Type Department Care Team (Late st Contact Info) Description 10/07/2024 11:30 AM EST Office Visit Dermatology at [place] [address] [place] [address] [facility] [place] [address] 12/13/2024 11:30 AM EST Appointment [place] [address] 12/13/2024 1:00 PM EST Office [place] [address] [facility] [place] [address] documented as of this encounter Visit Diagnoses Not on filedocumented in this encounter Care Teams Academic Associate Relationship Specialty Start Date End Date Yaritza Pierre MD [address] [place] [address] PCP - General 03/27/12 11/27/18 documented as of this encounter
--- OUTSIDE RECORDS SUMMARY | 2024-09-14 13:12 | XMS_ITS | Encounter Summary ---
Author Organization [facility] [place] [address] Care Team Providers Care Aviation Program Manager Name Role Phone Yaritza Pierre MD Primary Care Provider [phone] Encounter Details Date Type Department Care Team (Late st Contact Info) Description 12/23/2014 Telephone Gastroenterology at [place] [address] Evelyn Miller APRN [facility] [place] [address] Social History Tobacco Use Types Packs/Day Years [...] Telephone Encounter - Evelyn Miller APRN - 12/23/2014 11:52 AM EST Attempted to contact patient to review the results of her anal manometry but no answer. documented in this encounter Plan of Treatment Upcoming Encounters Date Type Department Care Team (Late st Contact Info) Description 10/07/2024 11:30 AM EST Office Visit Dermatology at [facility] [address] [place] [address] Jo Ordaz MD [facility] [place] [address] 12/13/2024 11:30 AM EST Appointment [place] [address] 12/13/2024 1:00 PM EST Office [place] [address] Kiet Pardo MD [facility] [place] [address] documented as of this encounter Visit Diagnoses Not on filedocumented in this encounter Care Teams Aviation Program Manager Relationship Specialty Start Date End Date Yaritza Pierre MD [address] [place] [address] PCP - General 03/27/12 11/27/18 documented as of this encounter
--- OUTSIDE RECORDS SUMMARY | 2024-09-14 13:12 | XMS_ITS | Encounter Summary ---
Author Organization [facility] Address [facility] [place] [address] Care Team Providers Care Family Support Specialist Name Role Phone Yaritza Pierre MD Primary Care Provider [phone] Encounter Details Date Type Department Care Team (Late st Contact Info) Description 09/02/2014 Telephone [place] [phone] Breanna Ordoñez MD [facility] [place] [address] Social History Tobacco Use Types Packs/Day Years [...] Miscellaneous Notes * Telephone Encounter - Breanna Ordoñez MD - 09/02/2014 11:18 AM EDT Called Amber to discuss results of her MRI of the upper back in the area of previous desmoid resections. 08/28/14 MRI with and without gadolinium: Approximately 29 x 9 x 19 mm loculated subcutaneous collection of fluid overlying the left upper thoracic paraspinal muscles and trapezius compatible with a postoperative fluid collection which may be sterile or infected. 2. No nodular areas of masslike enhancement to suggest specific evidence of residual or recurrent tumor. The patient reports feeling well. The swelling in her upper back an area of previous excision is stable. There is some discomfort which appears to be from the seroma is seen on the MRI. There is no redness or purulence or fevers or chills. I do not believe this is infected. We discussed the nature of seromas. She she only has mild symptoms would like her body to try to resorb its on its own. Given her scleroderma as possible it might take longer. She will call if symptoms increase and then we could consider aspirating it. There is always the risk of infection if we do this. In regards to followup for her desmoid tumor, repeat imaging along with history and physical in 6 months is appropriate based on standard guidelines. We will set this up and see her back in 6 months unless she has increased symptoms, growths, or changes in the upper back area. If that occurs she will call back to be seen sooner. The patient asked questions which were answered to her satisfaction.She is happy with the result that there is no evidence of residual disease at this time. It is possible that there are microscopic cells in that area, yet no gross disease. documented in this encounter Plan of Treatment Upcoming Encounters Date Type Department Care Team (Late st Contact Info) Description 10/07/2024 11:30 AM EST Office Visit Dermatology at [address] [place] [address] Jo Ordaz MD [facility] [place] [address] 12/13/2024 11:30 AM EST Appointment [place] [address] 12/13/2024 1:00 PM EST Office [place] [address] Kiet Pardo MD [facility] [place] [address] documented as of this encounter Visit Diagnoses Diagnosis Desmoid- Primary Neoplasm of uncertain behavior of connective and other soft tissue documented in this encounter Care Teams Family Support Specialist Relationship Specialty Start Date End Date Yaritza Pierre MD [address] [place] [address] PCP - General 03/27/12 11/27/18 documented as of this encounter
--- OUTSIDE RECORDS SUMMARY | 2024-09-14 13:12 | XMS_ITS | Encounter Summary ---
Author Organization [facility] Address [facility] [place] [address] Care Team Providers Care Account Executive Trainee Name Role Phone Yaritza Pierre MD Primary Care Provider [phone] Encounter Details Date Type Department Care Team (Late st Contact Info) Description 01/28/2015 Orders [place] [address] Breanna Ordoñez MD [facility] [place] [address] Desmoid tumor (Primary Dx) Social History Tobacco Use Types [...] 11:30 AM EST Office Visit Dermatology at [facility] [address] [place] [address] Jo Ordaz MD [facility] [place] [address] 12/13/2024 11:30 AM EST Appointment Pulmonology at [place] [phone] 12/13/2024 1:00 PM EST Office [place] [address] Kiet Pardo MD [facility] [place] [address] documented as of this encounter Visit Diagnoses Diagnosis Desmoid tumor- Primary Neoplasm of uncertain behavior of connective and other soft tissue documented in this encounter Care Teams Account Executive Trainee Relationship Specialty Start Date End Date Yaritza Pierre MD [address] [place] [address] PCP - General 03/27/12 11/27/18 documented as of this encounter
--- OUTSIDE RECORDS SUMMARY | 2024-09-14 13:12 | XMS_ITS | Encounter Summary ---
Author Organization Formerly [facility] [place] [address] Care Team Providers Care Digital Content Specialist Name Role Phone Yaritza Pierre MD Primary Care Provider Encounter Details Date Type Department Care Team (Late Contact Info) Description 05/27/2014 [place] [address] Jovany Jensen MD [address] [place] [id number] Social History Tobacco Use Types Packs/Day Years [...] [facility] [address] [place] [address] [facility] [place] [address] 12/13/2024 11:30 AM EST [place] [address] 12/13/2024 1:00 PM EST Office [place] [address] [facility] [place] [address] documented as of this encounter Procedures Procedure Name Priority Date/Time Associated Diagnosis Comments SURGICAL PATHOLOGY REPORT Routine 05/27/2014 5:30 AM EDT documented in this encounter Results * Surgical Pathology Report (05/27/2014 5:30 AM EDT) Final Diagnosis ? [facility] ? Provider: ?? JOVANY JENSEN ? Pt. Name: ?? EUNICE AMBER ? Acc #: ?[id number] ?Pt. ? Col Date: ?? 05/27/2014 ?/Sex: ?1960,(54 years),Female ? Rec Date: ?? 05/28/2014 ?LOC: ?[facility] ? SURGICAL PATHOLOGY ? ---Pathologic Diagnosis--- ? A - Desmoid fibromatosis re-excision ? Prior excision site with scar, inflammed granulation tissue and focus ? suspcious for residual desmoid fibromatosis within 0.1 cm of ? caudal margin (See Comment) ? 05/30/14 ? [facility] ? 06/02/14 Verified by: ? Luis Ramirez MD ? Pathologist ? (Electronic Signature) ? The attending pathologist whose signature appears on this report has ? reviewed all diagnostic slides and has edited the gross and/or ? microscopic portion of the report in rendering the final pathologic ? diagnosis. ? ---Comment--- ? Extensive repair and inflammatory changes complicate the evaulation for ? residual desmoid fibromatosis. IHC study suggests the possibility that ? residual lesion is present near the caudal margin, however extensive ? reactive change is also present there. It is recommended that additional ? surgery be delayed until further healing occurs and that the area be ? reevaluated clinically after healing is more complete. ? ---Microscopic Description--- ? Immunohistochemistry Studies: ? Formalin-fixed, paraffin-embedded tissue sections are studied using the B- ? SA system technique with appropriate positive and negative controls. ??These ? IHC studies provide the pathologist with adjunctive diagnostic information. ? Antibody specificity has been verified by testing antibodies on a series of ? in-house tissues with known immunohistochemical performance ? characteristics. The clinical interpretation of any antibody positive ? staining or its absence is evaluated within the context of clinical ? presentation, morphology, histopathological criteria and other diagnostic ? tests. ? Block ?Antibody ? Result (Positive/Negative) ? A7 ? beta-catenin ? Focal nuclear staining in previous excision ? site and extending to within 0.1 cm of inked margin ? ---Gross Description--- ? A - Labeled/Fixative: Desmoid fibromatosis reexcision, formalin. ? Quantity/Size: Single, 6.1 x 5.3 x 2.2 cm. ? [facility] ? Provider: ?? JOVANY JENSEN ? Pt. Name: ?? AMBER WELLS ? Acc #: ?[id number] ?Pt. ? Col Date: ?? 05/27/2014 ?/Sex: ?1960,(54 years),Female ? Rec Date: ?? 05/28/2014 ?LOC: ?[facility] ? SURGICAL PATHOLOGY ? Tissue Description: Lobular claire-yellow soft tissue covered by skin. ??The ? skin measures 6.4 x 0.7 cm and presents a central scar approximately 5 cm ? in length. Two sutures orient the specimen, short lateral left, long ? cephalad. ??According to the established protocol, the ink designations are ? Red (medial/right), Yellow (lateral/left), [place] (cephalad), Green ? (caudal), Black (deep) and Blue (superficial). ? Sections/Processing: The specimen is serially sectioned from medial/right ? two lateral/left revealing a central previous biopsy cavity measuring 3.4 ? and 1.5 x 1.0 cm. ??Flattening Machine Operator sections are submitted as follows:(1) ? medial/right margin, red; (2-4) full-thickness cross-section; (5-7) full- ? thickness cross-section; (8-9) full-thickness cross-section; (10) ? lateral/left margin, yellow. (R10) ??pps ? ---Clinical Information--- ? Specimen Submitted: ? A - Desmoid fibromatosis re-excision (short=lateral left margin, ? long=cephalad margin) ? labeled: [id number] ? Clinical History: ? Desmoid fibromatosis reexcision ? Clinical Diagnosis: ? Same ? Referring Identifier: ??[id number] 06/02/2014 9:36 AM EDT [facility] SOFT TISSUE MASS / Unknown 05/27/2014 5:30 AM EDT 05/27/2014 5:30 AM EDT Jovany Jensen MD PATHOLOGY/CYTOLOGY O RDERABLES Performing Organization Address City/State/[facility] Co de Phone Number [facility] [place] [phone] documented in this encounter Visit Diagnoses Not on filedocumented in this encounter Care Teams Digital Content Specialist Relationship Specialty Start Date End Date Yaritza Pierre MD [address] [place] [address] PCP - General 03/27/12 11/27/18 documented as of this encounter
--- OUTSIDE RECORDS SUMMARY | 2024-09-14 13:12 | XMS_ITS | Encounter Summary ---
Author Organization [facility] [place] [address] Care Team Providers Care Steamtable Attendant Railroad Name Role Phone Yaritza Pierre MD Primary Care Provider [phone] Encounter Details Date Type Department Care Team (Late st Contact Info) Description 11/03/2014 Telephone Gastroenterology at [facility] [place] [address] Evelyn Miller, [facility] [place] [address] Social History Tobacco Use Types Packs/Day Years [...] Telephone Encounter - Evelyn Miller APRN - 11/03/2014 5:50 PM EST Contacted amber regarding her KUB that revealed stool seen in the ascending transverse and descending colon. Small amount of stool seen in the region of the rectum. There is a single mildly dilated loop of small bowel. No free air is seen. Recommend MOM 30 ml tomorrow then next start Citrucel and Dulcolax [place] qd. Instructed patient to contact me with an update in 1-2 weeks. If no improvement then consider laxative such as Amitiza or Linaclotide or Smooth Move Tea qhs. Consider SBFT to evaluate small bowel motility. She is amenable to this. documented in this encounter Plan of Treatment Upcoming Encounters Date Type Department Care Team (Late st Contact Info) Description 10/07/2024 11:30 AM EST Office Visit Dermatology at [address] [address] Jo Ordaz MD [facility] [place] [address] 12/13/2024 11:30 AM EST [place]ment [place] [address] 12/13/2024 1:00 PM EST Office [place] [address] Kiet Pardo MD [facility] [place] [address] documented as of this encounter Visit Diagnoses Not on filedocumented in this encounter Care Teams Steamtable Attendant Railroad Relationship Specialty Start Date End Date Yaritza Pierre MD [address] [place] [address] PCP - General 03/27/12 11/27/18 documented as of this encounter
--- OUTSIDE RECORDS SUMMARY | 2024-09-14 13:12 | XMS_ITS | Encounter Summary ---
Author Organization Formerly [facility] [place] [address] Care Team Providers Care Medical Management Trainer Name Role Phone Yaritza Pierre MD Primary Care Provider [phone] Encounter Details Date Type Department Care Team (Late st Contact Info) Description 09/25/2014 Orders [place] [address] Yu Mdconough [facility] [place] [address] Social History Tobacco Use Types Packs/Day Years [...] at [facility] [address] [place] [address] Jo Ordaz MD [facility] [place] [address] 12/13/2024 11:30 AM EST Appointment [place] [address] 12/13/2024 1:00 PM EST Office [place] [address] Kiet Pardo MD [facility] [place] [address] documented as of this encounter Visit Diagnoses Not on filedocumented in this encounter Care Teams Medical Management Trainer Relationship Specialty Start Date End Date Yaritza Pierre MD [address] [place] [address] PCP - General 03/27/12 11/27/18 documented as of this encounter
--- OUTSIDE RECORDS SUMMARY | 2024-09-14 13:12 | XMS_ITS | Encounter Summary ---
Author Organization [facility] [place] [address] Care Team Providers Care Delivery Representative Name Role Phone Yaritza Pierre MD Primary Care Provider [phone] Encounter Details Date Type Department Care Team (Late st Contact Info) Description 02/19/2015 Orders [place] [address] Perlita Case, RN DEPT OF GASTROENTEROLOGY Social History Tobacco Use Types Packs/Day Years [...] Dermatology at [facility] [address] [place] [address] Jo Ordaz MD [facility] [place] [address] 12/13/2024 11:30 AM EST Appointment [place] [address] 12/13/2024 1:00 PM EST Office [place] [address] Kiet Pardo MD [facility] [place] [address] documented as of this encounter Visit Diagnoses Not on filedocumented in this encounter Care Teams Delivery Representative Relationship Specialty Start Date End Date Yaritza Pierre MD [address] [place] [phone] PCP - General 03/27/12 11/27/18 documented as of this encounter
--- OUTSIDE RECORDS SUMMARY | 2024-09-14 13:12 | XMS_ITS | Encounter Summary ---
Author Organization [facility]ly [facility] Address [facility] [place] [address] Care Team Providers Care Digital Media Strategist Name Role Phone Yaritza Pierre MD Primary Care Provider [phone] Encounter Details Date Type Department Care Team (Late st Contact Info) Description 02/17/2015 11:00 AM EDT Follow-Up Physical Therapy at [address] [address] Xuan Laird, PT [facility] PHYSICAL MEDICINE & [place] [address] Sumit Lucas MD [facility] [place] [address] Other disorder of muscle, ligament, and fascia [...] Progress Notes * Xuan Laird, PT - 02/17/2015 11:08 AM EDT Physical Therapy Progress Note Total [...] techniques to improve bowel emptying. met Goals: [facility] goals (3 months) progressing towards 1. Patient will reduce symptoms of constipation by 20%. 2. Patient will have resting rate of <5 uV on SEMG with internal electrode. 3. Patient will be independent with ongoing self management and treatment regimen including hot bath, stretching, toilet positioning and techniques, and bowel routine. S: Patient reports for a couple of weeks she increased her dietary fiber, but got sick of eating fiber. She has sarted citrucel ~2 week ago. She has continued to be consistent with the HEP and feels the pelvic floor muscles are stronger and more aware of relaxing the muscles. She has been walking more and able to have 1-2 bowel movements/day. Since she is walking more, she feels she is able to empty her bowels more fully. She has only had to use a suppository ~1x/week. She has stopped taking the miraLAX. Patient reports when she has a bowel movement, the first ~2 inches that she passes is formed and round, then changes to flat stool for the rest of the day. Patient is very concerned why the stool is flat. O: Treatment: neuro re-ed x 3 Previous session: 01/08/15 Patient gives verbal consent to external and [...] 3:00 4/5, 6:00 4/5, and 9:00 4/5, incomplete derecruitment, full with cues Levator ani muscle tone: 4/5, muscle tension with diffuse discomfort Hold Time: 10 seconds, # of reps: deferred Valsalva: mild, moderate pelvic floor excursion with signs of anterior and posterior laxity Rectal Exam: External anal sphincter: strength 3+/5, tone: 2/5, puborectalis muscle tension, hold time: 10 seconds, Valsalva: mild to moderate pelvic floor excursion, without muscle contraction SEMG: with internal rectal electrode in supine: Resting Rate: 7 uV, decreased to 3 uV during exercise Long Hold: 35 uV [...] uV x 10 seconds x 20 reps manual techniques: internal vaginal levator ani manual stretch relaxation/downtraining: SEMG resting rate: 1 uV discussion of pelvic floor muscle training with goal of full derecruitment and muscle relaxation and toilet positioning and techniques Review and progress HEP: toilet positioning and techniques, diaphragmatic breathing and pelvic floor muscle exercises: LH 10 seconds with submaximal contraction, rest 10 seconds with focus on full relaxation, x 20 reps to fatigue, 2 sessions/day A: Overactive pelvic floor muscles with muscle spasm, pelvic floor dysfunction, constipation and fecal incontinence. Patient performs a good voluntary pelvic floor muscle contraction with consistent voluntary relaxation. Patient demonstrates decreased resting rate on SEMG and awareness and understanding of pelvic floor muscle relaxation. Patient reports improved bowel emptying and a strong concern for flat shape of stool. Patient to discuss in GI appointment this afternoon. P: Recheck in 8 weeks. Patient to continue with HEP on her own. Patient knows to contact me with any questions or concerns. documented in this encounter Plan of Treatment Upcoming Encounters Date Type Department Care Team (Late st Contact Info) Description 10/07/2024 11:30 AM EST Office Visit Dermatology at [address] [address] Jo Ordaz MD [facility] [place] [address] 12/13/2024 11:30 AM EST [place]ointment [place] [address] 12/13/2024 1:00 PM EST Office [place] [address] Kiet Pardo MD [facility] [address] documented as of this encounter Visit Diagnoses Diagnosis Other disorder of muscle, ligament, and fascia documented in this encounter Care Teams Digital Media Strategist Relationship Specialty Start Date End Date Yaritza Pierre MD [address] [place] [id number] PCP - General 03/27/12 11/27/18 documented as of this encounter
--- OUTSIDE RECORDS SUMMARY | 2024-09-14 13:12 | XMS_ITS | Encounter Summary ---
Author Organization [facility] Address [facility] [place] [address] Care Team Providers Care Pipe Fitter Ammonia Name Role Phone Yaritza Pierre MD Primary Care Provider [phone] Encounter Details Date Type Department Care Team (Late st Contact Info) Description 01/08/2015 11:00 AM EST Follow-Up Physical Therapy at [address] [address] Xuan Laird, PT [facility] DR PHYSICAL MEDICINE & [place] [address] Sumit Lucas MD [facility] [place] [address] Other disorder of muscle, ligament, and fascia [...] Progress Notes * Xuan Laird, PT - 01/08/2015 11:06 AM EST Physical Therapy Progress Note Total treatment time: [...] techniques to improve bowel emptying. met Goals: [facility] goals (3 months) progressing towards 1. Patient will reduce symptoms of constipation by 20%. 2. Patient will have resting rate of <5 uV on SEMG with internal electrode. 3. Patient will be independent with ongoing self management and treatment regimen including hot bath, stretching, toilet positioning and techniques, and bowel routine. S: Patient reports she has been consistent with the HEP and feels a difference with the pelvic floor muscles are stronger. Patient feels she does not fully empty her bowels. She uses a suppository ~ every other day. She has not been walking as often due to the weather. The walk usually stimulates a bowel movement. She has been more aware of increasing her dietary fiber. She finds the toilet positioning and techniques helpful. Notes multiple bowel movements in the morning and feels she has emptied her bowels in ~30 minutes. O: Treatment: neuro re-ed x 3 Evaluation: 12/11/14 Patient gives verbal consent to external and internal exam. External Exam: Introitus: closed at rest, tight, symmetric, atrophic signs Introitus: perineal lift with cough Pelvic Floor Contraction: mild, moderate levator ani activity with perineal body elevation, with LE, gluteal and abdominal overflow Valsalva: mild, moderate pelvic floor excursion with [...] laxity Rectal Exam: External anal sphincter: strength 3/5, tone: 2/5, puborectalis muscle tension, hold time: 10 seconds, Valsalva: mild, moderate pelvic floor excursion, without muscle contraction Today: Patient gives verbal consent to external [...] uV x 10 seconds x 20 reps relaxation/downtraining: SEMG resting rate: 1 uV discussion on progression of pelvic floor muscle training and strengthening toilet positioning and techniques, pelvic brace discussion on elimination diet: eliminate all dairy for 2 weeks and monitor symptoms, gradually re-introduce foods after 2 weeks Review and progress HEP: toilet positioning and techniques, diaphragmatic breathing and pelvic floor muscle exercises: LH 10 seconds with submaximal contraction, rest 10 seconds with full relaxation,x 20 reps to fatigue, 2 sessions/day A: Overactive pelvic floor muscles with muscle spasm, pelvic floor dysfunction, constipation and fecal incontinence. Patient performs a good voluntary pelvic floor muscle contraction with consistent voluntary relaxation. Patient demonstrates decreased resting rate on SEMG and awareness of decreasedresting rate. P: Recheck in 5 weeks. Patient to continue with HEP on her own. Patient knows to contact me with any questions or concerns. documented in this encounter Plan of Treatment Upcoming Encounters Date Type Department Care Team (Late st Contact Info) Description 10/07/2024 11:30 AM EST Office Visit Dermatology at [facility] [address] [place] [address] Jo Ordaz MD [facility] [place] [address] 12/13/2024 11:30 AM EST Appointment [place] [phone] 12/13/2024 1:00 PM EST Office [place] [address] Kiet Pardo MD [facility] [place] [address] documented as of this encounter Visit Diagnoses Diagnosis Other disorder of muscle, ligament, and fascia documented in this encounter Care Teams Pipe Fitter Ammonia Relationship Specialty Start Date End Date Yaritza Pierre MD [address] [place] [address] PCP - General 03/27/12 11/27/18 documented as of this encounter
--- OUTSIDE RECORDS SUMMARY | 2024-09-14 13:12 | XMS_ITS | Encounter Summary ---
Author Organization [facility] Address [facility] [place] [address] Care Team Providers Care Scenic Designer Name Role Phone Yaritza Pierre MD Primary Care Provider [phone] Encounter Details Date Type Department Care Team (Late st Contact Info) Description 12/09/2014 1:00 PM EST Office Visit Physical Therapy at [address] [address] Sesar Laird, PT [facility] DR PHYSICAL MEDICINE & [place] [address] Sumit Lucas MD [facility] [place] [address] Other disorder of muscle, ligament, and fascia [...] as of this encounter Progress Notes * Sesar Laird, PT - 12/09/2014 1:01 PM EST Physical Therapy Initial Evaluation Note: Outpatient Date of Exam/First Treatment: 12/09/2014 Date of onset: May 2014 Referring Provider: Sumit Lucas MD, Evelyn Miller APRN Diagnosis: 1. Other disorder of muscle, ligament, and fascia History of current problem: Amber Wells is a 54 y.o. female referred to physical therapy for muscle spasm with constipation. Patient had 3 surgeries last summer that required her to take 3-4 days of pain medication afterwards. Notes increased difficulty with bowel movements after each surgeryand an episode of fecal impaction. Patient reports she has a daily bowel movement with ribbon shape stools. She reports having a bowelmovement in the morning then 1-3 hours later, she will experience the sudden urge to defecate and can have up to 4 small bowel movements in a row then is fine for the rest of the day. I can't go anywhere, I have to wait to empty my bowels. She will avoid eating in the morning if she needs to leave the house for fear of needing to defecate repeatedly or fecal incontinence. Patient's expressed goals for treatment: improve bowel emptying, decrease frequency and FI Previous treatment/self care: amitiza, suppository prn Gynecologic/Obstetric History: : 0 Para: History of sexual abuse or trauma: No Regular menstrual cycles: Yes, becoming irregular Frequent urinary tract infections: No Sexual Dysfunction/Pain: Sexually Active: Yes Pain level with intercourse: Yes Level 1: painful, but able to have penetration at same frequency Level 2: painful and limits frequency Level 3: painful and prevents penetration Pain with: Pelvic exam: No Tampon use: No Back, leg, groin and/or abdominal: No Bladder Function: Leaks with: coughing, sneezing, with urge Number of episodes: monthly Severity of leakage: drops and wet underwear Pain or burning with urination:No Difficulty starting urine stream: No Strain to empty bladder: No Feel unable to fully empty bladder: No Have a feeling of pelvic heaviness, pressure or falling out: No Have pain with a full bladder: No Have urgency of urination: No Pad use and Type (per day): none # daytime voids: 5-6 # episodes of nocturia: 0 Bowel Dysfunction: Frequency of bowel movements: 1-2/day: after a long relaxing walk will cause another bowel movement Consistency of stool: normal, ribbon shaped Currently strain to void: Yes Include fiber in diet: Yes Take laxatives/enema regularly: Yes Have pain with bowel movements:No Have a strong urge to move bowels:No History of Constipation: No Have diarrhea often: No Ignore the urge to defecate: No Feel you have not completely emptied your bowels at the end of a BM: Yes Fecal incontinence: Y gas, liquid, formed stool Fluid Intake: 6 glasses per day: water 2 caffeinated beverages: coffee 1-2/week Alcoholic beverages: wine 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 POSTURE: Good spinal and pelvic alignment STRENGTH: lower extremity grossly 5/5 Patient gives verbal consent to external and [...] puborectalis muscle tension, hold time: 10 seconds, Valsalva:mild, moderate pelvic floor excursion, without muscle contraction SEMG: with internal electrode in supine: deferred Resting Rate: uV Quick flicks: uV x reps Long Hold: uV x seconds x reps Assessment: These findings are consistent with overactive pelvic floor muscles with muscle spasm, pelvic floor dysfunction, constipation and fecal incontinence. Patient performs a fair voluntary pelvic floor muscle contraction with inconsistent voluntary relaxation. Patient would benefit from pelvic floor muscle training, awareness of habits, and HEP. Goals: Short term goals (4 weeks) 1. Patient to be indep in the performance of a home program of pelvic floor muscle exercises on a daily basis. 2. Patient will demonstrate a consistent pelvic floor muscle contraction with full voluntary relaxation. 3. Patient to complete SEMG evaluation. 4. Patient will demonstrate knowledge of toilet positioning and techniques to improve bowel emptying. Goals: senior care goals (3 months) 1. Patient will reduce symptoms of constipation by 20%. 2. Patient will have resting rate of <5 uV on SEMG with internal electrode. 3. Patient will be independent with ongoing self management and treatment regimen including hot bath, stretching, toilet positioning and techniques, and bowel routine. Frequency: 1 time in 4 weeks for 6 sessions due to patient living 2 hours away Plan of care: therapeutic exercise, pelvic floor muscle exercises, SEMG, STM/MFR, stretching, patient/family education, home exercise program, relaxation/downtraining, NMEs Informed Consent: The patient consented to the physical therapy evaluation. The patient agrees to and understands thephysical therapy treatment plan and goals. Interventions completed today: Initial evaluation, patient education and home exercise program consisting of: PT treatment of constipation, toilet positioning and techniques, diaphragmatic breathing and pelvic floor muscle exercises: LH 10 seconds with submaximal contraction, rest 10 seconds with full relaxation, x 20 reps, 2 sessions/day Total Treatment time: 63 minutes: eval, neuro re-ed Total Timed Code Treatment: 18 minutes SESAR LAIRD PT documented in this encounter Plan of Treatment Upcoming Encounters Date Type Department Care Team (Late st Contact Info) Description 10/07/2024 11:30 AM EST Office Visit Dermatology at [facility] [address] [place] [address] Jo Ordaz MD [facility] [place] [address] 12/13/2024 11:30 AM EST Appointment [place] [address] 12/13/2024 1:00 PM EST Office [place] [phone] Kiet Pardo MD [facility] [place] [address] documented as of this encounter Visit Diagnoses Diagnosis Other disorder of muscle, ligament, and fascia documented in this encounter Care Teams Scenic Designer Relationship Specialty Start Date End Date Yaritza Pierre MD [address] [place] [id number] PCP - General 03/27/12 11/27/18 documented as of this encounter
--- OUTSIDE RECORDS SUMMARY | 2024-09-14 13:12 | XMS_ITS | Encounter Summary ---
Author Organization [facility] [place] [address] Care Team Providers Care Credit Portfolio Advisor Name Role Phone Yaritza Pierre MD Primary Care Provider [phone] Encounter Details Date Type Department Care Team (Late st Contact Info) Description 02/17/2015 1:30 PM EDT Follow-Up Gastroenterology at [facility] [place] [address] Evelyn Miller APRN [facility] [place] [address] Scleroderma; Abdominal bloating; Altered bowel habits Discharge Disposition: Home Social [...] Sign Reading Time Taken Comments Blood Pressure 132/68 02/17/2015 1:39 PM EDT Pulse 88 02/17/2015 1:39 PM EDT Temperature - - Respiratory Rate - - Oxygen Saturation - - Inhaled Oxygen Concentration - - Weight 64.4 kg (142 lb) 02/17/2015 1:39 PM EDT Height 170.2 cm (5' 7) 02/17/2015 1:39 PM EDT Body Mass Index 22.24 02/17/2015 1:39 PM EDT documented in this encounter Patient Instructions * Patient Instructions* Evelyn Miller APRN - 02/17/2015 2:02 PM EDT 1. Rifaximin 550 mg every 8 hours x 10 days 2. Citrucel 1 heaping twice a day 3. Dulcolax 10 mg rectally every 2-3 days 4. Hold MiraLax 5. Nexium 40 mg twice a day on an empty stomach 30 minutes before breakfast and dinner 6. Call or email with an update 2 weeks after course of Rifaximin 7. Follow up 3 months Evelyn Miller APRN [phone] documented in this encounter Progress Notes * Evelyn Miller APRN - 02/17/2015 1:36 PM EDT Subjective: Patient ID: Amber Wells is a 54 y.o. woman who presents for follow up of her gastrointestinalsymptoms. HPI Comments: Initial visit 11/03/2014: Amber Wells is a pleasant 54 year old woman with a history significant for systemic sclerosis, Raynaud's, sclerodactyly, h/o scleroderma renal crisis resulting in stage 3 CKD and GERD who presents for consultation of her altered bowel habits. She reports noting a change in her bowel habits this past May when she experienced some fecal impaction, which has resolved but continues to experienced altered bowel habits. She reports that stoolsare flat like a magazine or ribbon like. She reports having a bowel movement in the morning then 1-3 hours later, [...] needing to defecate repeatedly or fecal incontinence. Stools are not explosive. Unable to identify any specific triggers. No nocturnal symptoms. She reports experiencing fecal incontinence most day. Will be incontinent of small pellet like stools. I have no control. Denies straining. Admits to incomplete evacuation of stool. Denies melena, hematochezia, steatorrhea, mucus, rectal or anal pain. She is currently taking docusate calcium 240 mg qd. Tried Metamucil but stopped secondary to experiencing a lot of gas. Tried Align 1 tablet BID but noted no improvement after 4 months. Colonoscopy 04/04/13: normal ROSY; normal cecum,ascending, transverse, descending and sigmoid colon. She reports a long standing history of GERD dating back 10 years. She describes GERD symptoms as heartburn, regurgitation and acid taste. She reports that GERD are well controlled Nexium 40 mg BID. Denies having an upper endoscopy. She reports a history of dysphagia some ten years ago that have resolved. Currently takes small bites, chews carefully and eats slowly. Denies nocturnal symptoms or breakthrough symptoms. Weight stable. No food allergies or intolerances. Denies dysphagia, odynophagia, chest pain, nausea, vomiting, gas, bloating, early satiety, postprandial fullness, nausea, vomiting, pre prandial symptoms, abdominal pain or cramping. Interval Hx 02/17/2015: she reports some improvement of her bowel habits. She reports having two formed bowel movement then will have one flat stools later in the day. She denies diarrhea and nocturnal symptoms. She has been walking more and feels like she is able to empty her bowels more fully. Sheis happy about being more active secondary to some improvement of her bowel habits. She has only used a suppository once a week. She stopped MiraLax secondary to loose stools. She reports increasing her dietary fiber intake for a couple of weeks but sick of eating fiber. She started Citrucel two weeks ago. She reports less sudden urge to defecate and fecal incontinence. She has been working with PT and performing Kegel exercises with improvement of her pelvic floor muscles. Intermittent bloating but no gas or distention. KUB 11/03/2014: 1. Nonobstructive bowel gas pattern 2. Stool seen throughout the colon. Anal manometry 12/09/14: 1. Low anal canal pressures. 2. Weak EAS resting pressure. 3. Excellent EAS squeeze pressures. 4. Normal RAIR rules out Hirschsprung's disease. 5. Evidence of mild rectal hypersensitivity given low MTV. 6. Abnormal balloon expulsion test. GERD symptoms are well controlled on Nexium [...] 3 times daily. 90 tablet 11 ??? esomeprazole (NEXIUM) 40 mg Capsule, Delayed Release(E.C.) Take 1 capsule by mouth 2 times daily. 180 capsule 1 ??? docusate sodium (COLACE) 100 mg Capsule Take 100 mg by mouth daily. ??? bisacodyl (DULCOLAX) [address] [...] tumor of the back Vital Signs: BP 132/68; P 88; Wt 142 lbs; Ht 5'7 Objective: Physical Exam Constitutional: She is oriented to person, place, and time. She appears well- developed and well-nourished. No distress. Neurological: She is alert and oriented to person, place, and time. Skin: She is not diaphoretic. Psychiatric: She has a normal mood and affect. Her behavior is normal. Judgment and thought contentnormal. Vitals reviewed. Assessment and Plan: 1. Bowel habits: some improvement. Discussed with Amber that her flat stool are most likely dueto overactive pelvic floor muscles, muscle spasms and pelvic floor dysfunction. Discussed continuing with PT's recommendations. Continue Citrucel BID and Dulcolax AK qd prn. Consider low dose Imodiumif fecal incontinence and/or sudden urgency to defecate resume given low anal pressures and weak EAS pressures, which can make it difficult at time to control bowel habits. Consider referral to colorectal surgery. Will re-evaluate in 3-4 weeks. Consider MR defecography. Consider MRE to evaluate small bowel. 2. Bloating: question SIBO. Discussed empirically treating with Rifaximin 550 mg TID x 10 days. In no improvement then consider hydrogen breath test. 3. GERD: symptoms remains well controlled on Nexium 40 mg BID. Recommend EGD with biopsies and she would prefer having this done locally and will discuss with her PCP. Consider Ortega ph study. Consider esophageal manometry. I did my best to answer all of her questions. The following plan was formulated. Plan: 1. Rifaximin 550 mg TID x 10 days 2. Citrucel 1 heaping BID 3. Dulcolax 10 mg AK every 2-3 days 4. Hold MiraLax 5. Nexium 40 mg BID 6. Call or email with an update 2 weeks after course of Rifaximin 7. Follow up 3 months or sooner Patient understands and is agreeable to the above plan. Written instructions provided. Evelyn Miller APRN Section of Gastroenterology [place] [address] documented in this encounter Plan of Treatment Upcoming Encounters Date Type Department Care Team (Late st Contact Info) Description 10/07/2024 11:30 AM EST Office Visit Dermatology at [address] [phone] Jo Ordaz MD [facility] [address] 12/13/2024 11:30 AM EST Appointment [place] [phone] 12/13/2024 1:00 PM EST Office [place] [phone] Kiet Pardo MD [facility] [place] [address] documented as of this encounter Visit Diagnoses Diagnosis Scleroderma Systemic sclerosis Abdominal bloating Flatulence, eructation, and gas pain Altered bowel habits Other symptoms involving digestive system documented in this encounter Care Teams Credit Portfolio Advisor Relationship Specialty Start Date End Date Yaritza Pierre MD [address] [place] [id number] PCP - General 03/27/12 11/27/18 documented as of this encounter
--- OUTSIDE RECORDS SUMMARY | 2024-09-14 13:12 | XMS_ITS | Encounter Summary ---
Author Organization [facility] [place] [address] Care Team Providers Care Grades 1 6 Tutor Name Role Phone Yaritza Pierre MD Primary Care Provider [phone] Encounter Details Date Type Department Care Team (Late Contact Info) Description 04/17/2014 [place] [address] Jovany Jensen MD [address] [place] [id number] Social History Tobacco Use Types Packs/Day Years [...] Dermatology at [facility] [address] [place] [address] Jo Ordaz MD [facility] [place] [address] 12/13/2024 11:30 AM EST Appointment Pulmonology at [place] [phone] 12/13/2024 1:00 PM EST Office [place] [address] Kiet Pardo MD [facility] [place] [address] documented as of this encounter Procedures Procedure Name Priority Date/Time Associated Diagnosis Comments SURGICAL PATHOLOGY REPORT Routine 04/17/2014 12:00 PM EDT documented in this encounter Results * Surgical Pathology Report (04/17/2014 12:00 PM EDT) Final Diagnosis ? [facility] ? Provider: ?? JOVANY JENSEN ? Pt. Name: ?? EUNICE AMBER ? Acc #: ?[id number] ?Pt. ? Col Date: ?? 04/17/2014 ? /Sex: ?1960,(53 years),Female ? Rec Date: ?? 04/18/2014 ? LOC: ?[facility] ? SURGICAL PATHOLOGY ? ---Pathologic Diagnosis--- ? Soft tissue,(mass-back), excision: ? 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 (See ? Comment.) ? 04/21/14 ? [facility] ? 04/25/14 Verified by: ? Ling Moreira DO ? Pathologist ? (Electronic Signature) ? The attending pathologist whose signature appears on this report has ? reviewed all diagnostic slides and has edited the gross and/or ? microscopic portion of the report in rendering the final pathologic ? diagnosis. ? ---Comment--- ? This case shows an incisional biopsy of a spindle cell tumor with apparent ? myofibroblastic differentiation by IHC. ??The differential includes ? fibromatosis. ??An excision is required to examine the tumor-normal ? interface for definitive diagnosis. ? ---Microscopic Description--- ? Immunohistochemistry Studies: ? [...] ? Block ?Antibody ? Result (Positive/Negative) ? A2 ?CD34 ? Negative in lesional cells ? A2 ?Factor 13A ? Negative (rare background cell) ? A2 ?S-100 ?Rare positive cell ? A2 ?Actin SM ? Positive ? A2 ?Desmin ? focally Positive ? A2 ?catenin (beta) ? Positive (nuclear and cytoplasmic) ? ---Gross Description--- ? A - Labeled/Fixative: Soft tissue mass, back, formalin. ? [facility] ? Provider: ?? JOVANY JENSEN ? Pt. Name: ?? AMBER WELLS ? Acc #: ?[id number] ?Pt. ? Col Date: ?? 04/17/2014 ? /Sex: ?1960,(53 years),Female ? Rec Date: ?? 04/18/2014 ? LOC: ?[facility] ? SURGICAL PATHOLOGY ? Quantity/Size: Single, 2.0 x 1.3 x 1.0 cm. ? Tissue Description: Firm, white nodule. ? Sections/Processing: Inked and serially sectioned. ??(T2) ??sns ? ---Clinical Information--- ? Specimen Submitted: ? A - Soft tissue mass-back ? Clinical History: ? History of scleroderma ? Clinical Diagnosis: ? 729.90-soft tissue mass ? Referring Identifier: ??[id number] 04/25/2014 12:[address] [facility] SOFT TISSUE MASS / Unknown 04/17/2014 12:00 PM EDT 04/17/2014 12:00 PM EDT Jovany Jensen MD PATHOLOGY/CYTOLOGY O [facility] Performing Organization Address City/State/[facility] Co [place] [address] documented in this encounter Visit Diagnoses Not on filedocumented in this encounter Care Teams Grades 1 6 Tutor Relationship Specialty Start Date End Date Yaritza Pierre MD [address] [place] [id number] PCP - General 03/27/12 11/27/18 documented as of this encounter
--- OUTSIDE RECORDS SUMMARY | 2024-09-14 13:12 | XMS_ITS | Encounter Summary ---
Author Organization [facility] [address] Care Team Providers Care Dot Net Developer Name Role Phone Yaritza Pierre MD Primary Care Provider [phone] Reason for Referral * Physical Therapy (Routine) - Closed Specialty Diagnoses / Procedures Referred By Wander hernandez Referred To Contact Physical Therapy Diagnoses Altered bowel habits Evelyn Miller [employer] [facility] [place] [address] [facility] [place] [address] Referral ID Status Reason Start Date Expiration Date V isits Requested Visits Authorized [id number] Closed Evaluate and Treat 11/03/2014 11/03/2015 1 1 Encounter Details Date Type Department Care Team (Late st Contact Info) Description 11/03/2014 10:00 AM EST Office [place] [address] Evelyn Miller [facility] [address] Altered bowel habits Discharge Disposition: Home Social [...] Sign Reading Time Taken Comments Blood Pressure 136/65 10/31/2014 4:21 PM EST Pulse 75 10/31/2014 4:21 PM EST Temperature - - Respiratory Rate - - Oxygen Saturation - - Inhaled Oxygen Concentration - - Weight 65.1 kg (143 lb 8 oz) 10/31/2014 4:21 PM EST Height 170.2 cm (5' 7) 10/31/2014 4:21 PM EST Body Mass Index 22.48 10/31/2014 4:21 PM EST documented in this encounter Patient Instructions * Patient Instructions* Evelyn Miller APRN - 11/03/2014 10:49 AM EST 1. Abdominal x-ray and lab work today and will call later with results 2. Anal manometry to evaluate for pelvic floor dysfunction 3. Referral to physical therapy for pelvic floor dysfunction 4. Dulcolax 10 mg suppository daily 5. Citrucel (methycellulose) 1 heaping tablespoon or 1 tablet daily 6. Kegel exercises up to 30 per day 7. Bathroom routine and consider foot stool 8. Follow up 3 month Evelyn Miller APRN [phone] documented in this encounter Progress Notes * Evelyn Miller APRN - 11/03/2014 9:07 AM EST Subjective: Patient ID: Amber Wells is a 54 y.o. woman who presents for further evaluation of her gastrointestinal symptoms at the request of Dr. Pierre. HPI Comments: Amber Wells is a pleasant [...] Respiratory: Negative. Cardiovascular: Negative. Gastrointestinal: See HPI Musculoskeletal: Positive for joint swelling. Negative for myalgias, back pain, arthralgias, gait problem, neck pain and neck stiffness. H/o scleroderma and Raynaud's disease. Skin: Negative. H/o desmoid tumor. Allergic/Immunologic: Negative. Neurological: Negative. Hematological: Negative. Psychiatric/Behavioral: Negative. Allergies: NKDA Current Outpatient Prescriptions on File Prior to Visit Medication Sig Dispense Refill ??? amLODIPine (NORVASC) 5 mg Tablet Take 4 tablets by mouth daily. 360 tablet 3 ??? fosinopril (MONOPRIL) 40 mg tablet Take 1 tablet by mouth 2 times daily. 180 tablet 3 ??? lidocaine-prilocaine (EMLA) cream Apply topically as needed. 30 g 2 ??? esomeprazole (NEXIUM) 40 mg capsule Take 1 capsule by mouth 2 times daily. 180 capsule 3 ??? Cholecalciferol, Vitamin D3, (VITAMIN D) 1,000 [...] ??? Not on file Social History Narrative FMHx: no h/o colon or esophageal cancer; IBD; celiac disease; liver or pancreatic disease Vital Signs: BP 136/65; P 75; Wt 143 lbs 8oz; Ht 5'7 Objective: Physical Exam Constitutional: She is oriented to person, place, and time. She appears well- developed and well-nourished. No distress. HENT: Head: Normocephalic and atraumatic. Mouth/Throat: No oropharyngeal exudate. Oral mucosa clear but slightly dry. Unable to open mouth fully secondary to scleroderma. Eyes: Conjunctivae and EOM are normal. Pupils are equal, round, and reactive to light. Right eye exhibits no discharge. Left eye exhibits no discharge. No scleral icterus. Neck: Normal range of motion. Neck supple. No JVD present. No tracheal deviation present. No thyromegaly present. Cardiovascular: Normal rate, regular rhythm, normal heart sounds and intact distal pulses. Exam reveals no gallop and no friction rub. No murmur heard. Pulmonary/Chest: Effort normal and breath sounds normal. No stridor. No respiratory distress. She has no wheezes. She has no rales. She exhibits no tenderness. Abdominal: Soft. Bowel sounds are normal. She exhibits no distension and no mass. There is no tenderness. There is no rebound and no guarding. No hepatosplenomegaly. No succussion splash. No epigastric bruit. Genitourinary: Rectal exam performed: no anal fissures or external hemorrhoids. Very weak tone and squeeze. Moderate amount of firm stool noted. No abscess, mass or blood. Musculoskeletal: Positive sclerodactyly and flexion contractures of all of her fingers. Lymphadenopathy: She has no cervical adenopathy. Neurological: She is alert and oriented to person, place, and time. No cranial nerve deficit. Skin: Skin is warm and dry. No rash noted. She is not diaphoretic. No erythema. No pallor. Skin warm except for hands. Cold fingers. Thickened shiny skin from her fingertips up to her MCPs.Thick skin on the dorsum of her hands up to mid forearm.Tight skin around her mouth with furrowing ofthe skin involving the rest of her face and forehead. Her abdominal skin appears thickened. Her chest wall is normal. Psychiatric: She has a normal mood and affect. Her behavior is normal. Judgment and thought contentnormal. Vitals reviewed. 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 Her constellation of symptoms is most likely due to her scleroderma. Question constipation with overflow and anorectal dysfunction. Discussed the etiology, pathophysiology, diagnostic tests and treatment of altered bowel habits. Recommend KUB today to evaluate for fecal load. Recommend anal manometry and referral to PT for pelvic floor dyssynergy. If no improvement then consider referral to colorectal surgeon for consultation of Solesta injections or InterStim. Consider SBFT or MR enterography to evaluate small bowel dysmotility. #GERD: long standing history of GERD that is well controlled on Nexium 40 mg BID. Recommend EGD, which can be performed locally given [place] [facility]. Consider esophageal manometry. I did my best to answer all of her questions. The following plan was formulated. Plan: 1. KUB and lab work today and will call later with results 2. Anal manometry to evaluate for pelvic floor dysfunction 3. Referral to PT for pelvic floor dysfunction 4. Dulcolax 10 mg MD qd 5. Citrucel (methycellulose) 1 heaping tbsp or 1 tablet qd 6. Kegel exercises up to 30 per day 7. Bathroom routine and consider foot stool 8. Follow up 3 month or sooner Patient understands and is agreeable to the above plan. Written instructions provided. I spent a total of 55 minutes face to face with this patient; 30minutes were spent counseling the patient in the medical problems described above. Thank you for the referral, Evelyn Miller APRN Section of Gastroenterology and Hepatology [place] [phone] documented in this encounter Plan of Treatment Upcoming Encounters Date Type Department Care Team (Late st Contact Info) Description 10/07/2024 11:30 AM EST Office Visit Dermatology at [facility] [address] [place] [address] Jo Ordaz MD [facility] [place] [address] 12/13/2024 11:30 AM EST Appointment [place] [phone] 12/13/2024 1:00 PM EST Office [place] [phone] Kiet Pardo MD [facility] [place] [address] Scheduled Referrals Name Type Priority Associated Diagnoses Orde r Schedule Referral to Physical Therapy Outpatient Referral Routine Altered bowel habits Ordered: 11/03/2014 documented as of this encounter Procedures Procedure Name Priority Date/Time Associated Diagnosis Comments HEMOGRAM Routine 11/03/2014 11:52 AM EST Altered bowel habits DIFFERENTIAL, AUTOMATED Routine 11/03/2014 11:52 AM EST Altered bowel habits CBC (WITH DIFF) Routine 11/03/2014 11:52 AM EST Altered bowel habits TSH Routine 11/03/2014 11:52 AM EST Altered bowel habits BASIC METABOLIC PANEL Routine 11/03/2014 11:52 AM EST Altered bowel habits documented in this encounter Results * Differential, Automated (11/03/2014 11:52 AM EST) Neutrophil % 69.0 % CERNER MILLENNIUM Neutrophil Absolute 6.11 1.50 - 6.30 x10(3)/mcL CERNER MILLENNIUM Lymph % 22.4 % CERNER MILLENNIUM Lymphocytes Abs 2.0 1.0 - 3.6 x10(3)/mcL CERNER MILLENNIUM Monocyte % 6.4 % CERNER MILLENNIUM Monocyte Abs 0.6 0.2 - 1.0 x10(3)/mcL CERNER MILLENNIUM Eos % 1.4 % CERNER MILLENNIUM Eosinophils Abs 0.1 0.0 - 0.5 x10(3)/mcL CERNER MILLENNIUM Basophil % 0.6 % CERNER MILLENNIUM Baso Absolute 0.0 0.0 - 0.2 x10(3)/mcL CERNER MILLENNIUM Immature Gran % 0.20 % CERN ER MILLENNIUM Comment: Immature granulocytes(IG's)percentage and absolute count will include metamyelocytes, myelocytes, and promyelocytes. Blood smears from CBCs yielding IG's will be scanned manually for concordance. If this scan disagrees with the automated IG or if promyelocytes are noted, a manual differential will be performed. Immature Gran Absolute 0.02 0.00 - 0.05 x10(3)/mcL CERNER MILLENNIUM Blood specimen (specimen) 11/03/2014 11:52 AM EST 11/03/2014 11:55 AM EST Narrative Resulting Agency Comment Spec In Lab Sumit Lucas MD HEMATOLOGY ORDERABLE S CERNER MILLENNIUM * (ABNORMAL) Hemogram (11/03/2014 11:52 AM EST) White Blood Cell 8.8 4.0 - 10.0 x10(3)/mc L CERNER MILLENNIUM Red Blood Cell 4.46 3.93 - 5.22 x10(6)/mc L CERNER MILLENNIUM Hemoglobin 14.4 11.2 - 15.7 gm/dL CERNER MILLENNIUM Hematocrit 43.3 34.0 - 45.0 % CERNER MILLENNIUM Mean Cell Volume 97.1(H) 79.0 - 94.0 fL CERNER MILLENNIUM Mean Cell Hemoglobin 32.3(H) 26.6 - 32.2 pg CERNER MILLENNIUM Mean Cell Hemoglobin Concentration 33.3 32.0 - 36.5 gm/dL CERNER MILLENNIUM Platelet 322 145 - 370 x10(3)/mc L CERNER MILLENNIUM RDW Standard Deviation 48.3(H) 35.0 - 46.0 fL CERNER MILLENNIUM RDW coefficient of variation 13.6 10.9 - 14.4 % CERNER MILLENNIUM Mean Platelet Volume 10.6 9.0 - 12.0 fL CERNER MILLENNIUM Blood specimen (specimen) 11/03/2014 11:52 AM EST 11/03/2014 11:55 AM EST Narrative Resulting Agency Comment Spec In Lab Sumit Lucas MD HEMATOLOGY ORDERABLE S CERNER MILLENNIUM * (ABNORMAL) Basic Metabolic Panel (non-fasting) (11/03/2014 11:52 AM EST) Glucose 88 60 - 199 mg/dL CERNER MILLENNIUM Comment:Diabetes: >=200 mg/d L plus symptoms Blood Urea Nitrogen 23(H) 8 - 18 mg/dL CERNER MILLENNIUM Creatinine 1.29(H) 0.70 - 1.20 mg/dL CERNER MILLENNIUM Comment: Please note that the pediatric reference intervals supplied above were not validated at [facility]. Results from pediatric patients should be interpreted in conjunction to the patient's age, height and muscle mass. Sodium 138 135 - 145 mmol/L CERNER MILLENNIUM Potassium 4.4 3.5 - 5.0 mmol/L CERNER MILLENNIUM Comment: Please note: ??Patients with WBC >100,000 may have falsely elevated Potassium levels. ??For accurate Potassium quantification in these patients send serum separator tube (gold top) for subsequent determinations. ??Contact the Clinical Chemistry Laboratory if there are any questions. Chloride 100 98 - 107 mmol/L CERNER MILLENNIUM Carbon Dioxide 25 22 - 31 mmol/L CERNER MILLENNIUM Anion Gap 13 5 - 15 mmol/L CERNER MILLENNIUM Calcium 9.1 8.5 - 10.5 mg/dL CERNER MILLENNIUM Est Glomerular Filtration Rate 43(L) >=60 CERNER MILLENNIUM Comment: This estimated GFR [...] the following links into your internet browser. [email or web address] Blood specimen (specimen) 11/03/2014 11:52 AM EST 11/03/2014 11:55 AM EST Narrative Resulting Agency Comment Spec In Lab Sumit Lucas MD CHEMISTRY ORDERABLES Performing Organization Address [facility] Co de Phone Number SALVADOR NARVAEZIUM * TSH (11/03/2014 11:52 AM EST) Thyroid Stimulating Hormone 1.51 0.27 - 4.20 mcIU/mL SALVADOR NARVAEZIUM Blood specimen (specimen) 11/03/2014 11:52 AM EST 11/03/2014 11:55 AM EST Narrative Resulting Agency Comment Spec In Lab Sumit Lucas MD CHEMISTRY ORDERABLES Performing Organization Address [facility] Co de Phone Number SALVADOR NARVAEZIUM * XR abdomen flat and upright (11/03/2014 11:46 AM EST) Anatomical Region Laterality Modality Abdomen N/A Radiographic Jennifer ging 11/03/2014 11:4 6 AM EST Impressions 11/03/2014 11:56 AM EST IMPRESSION: 1. Nonobstructive bowel gas pattern 2. Stool seen throughout the colon. Narrative 11/03/2014 11:56 AM EST EXAMINATION: ABD FLAT AND UPRIGHT CLINICAL HISTORY: Altered bowel ??habits. ???fecal burden TECHNIQUE: Flat and upright views of the abdomen, 5 images. COMPARISON: None FINDINGS: Stool seen in the ascending transverse and descending colon. Small amount of stool seen in the region of the rectum. There is a single mildly dilated loop of small bowel. No free air is seen. Procedure Note Sabine Jc MD - 11/03/2014 EXAMINATION: ABD FLAT AND UPRIGHT CLINICAL HISTORY: Altered bowel habits. ?fecal burden TECHNIQUE: Flat and upright views of the abdomen, 5 images. COMPARISON: None FINDINGS: Stool seen in the ascending transverse and descending colon.Small amount of stool seen in the region of the rectum. There is a singlemildly dilated loop of small bowel. No free air is seen. IMPRESSION IMPRESSION: 1. Nonobstructive bowel gas pattern 2. Stool seen throughout the colon. Sumit Lucas MD IMG DX ORDERABLES documented in this encounter Visit Diagnoses Diagnosis Altered bowel habits Other symptoms involving digestive system Altered bowel habits Other symptoms involving digestive system documented in this encounter Care Teams Dot Net Developer Relationship Specialty Start Date End Date Yaritza Pierre MD [address] [place] [address] PCP - General 03/27/12 11/27/18 documented as of this encounter
--- OUTSIDE RECORDS SUMMARY | 2024-09-14 13:12 | XMS_ITS | Encounter Summary ---
[place] [address] Care Team Providers Care Bronze Chaser Name Role Phone Yaritza Pierre MD Primary Care Provider [phone] Reason for Visit * Reason Comments Establish Care Desmoid Tumor Encounter Details Date Type Department Care Team (Late st Contact Info) Description 07/25/2014 2:00 PM EDT Office [place] [phone] CLINIC, Breanna Nolen MD [facility] [place] [address] Desmoid (Primary Dx); Desmoid fibromatosis Discharge Disposition: Home Social History [...] Sign Reading Time Taken Comments Blood Pressure 128/68 07/25/2014 2:18 PM EDT Pulse 79 07/25/2014 2:18 PM EDT Temperature 36.7 ??C (98.1 ??F) 07/25/2014 2:18 PM ED T Respiratory Rate 16 07/25/2014 2:18 PM EDT Oxygen Saturation - - Inhaled Oxygen Concentration - - Weight 63.5 kg (139 lb 15.9 oz) 07/25/2014 2:18 PM EDT Height 170.2 cm (5' 7) 07/25/2014 2:18 PM EDT Body Mass Index 21.93 07/25/2014 2:18 PM EDT documented in this encounter Progress Notes * Breanna Ordoñez MD - 07/28/2014 4:49 PM EDT Surgical Oncology New Patient Visit Note Reason for Visit: Amber Wells is a 54 y.o. female was referred by Dr.Walter Barriga for evaluation of desmoid tumor on upper back. 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 The patient first noticed a lump on upper back in March 2014. It was soft without skin change s, mildly tender when touched but otherwise not painful. It was described as a 1.5x3cm soft subcutaneous mass. She had an incisional biopsy on 04/17/14 which showed a spindle cell tumor. 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 She had a re-excision on 05/27/14 that included the biopsy cavity with seroma, fascia and skeletal muscle (deep margin) and 2cm superior and inferior. Pathologyshowed inflamed granulation tissue with a possible focus of residual desmoid tumor (+Bcatenin) within 0.1 cm of caudal margin. The patient is referred for opinion regarding the need and/or timing of further surgery. The patient did well after the procedures described above. Denies infection or pain. She currently does have a lump in the surgical site but she believes is it post surgical inflammation/seroma andthat it is not growing in size. She has no history of other soft tissue tumors or desmoids. She denies history of colon polyps. No family history of FAP. Last negative colonoscopy 03/2013. She is curre ntly pre-menopausal. Overall Amber is doing well. She has limited dexterity/mobility in bilateral hands due to her scleroderma. She does not have any respiratory sequela at this time. She has controlled GERD. Her renal function has stabilized and most recent Cr is 1.3. She denies weight loss. Has good appetite. No fevers, chills, abd pain. 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 MEDICATIONS: Current Outpatient Prescriptions on File Prior to Visit Medication Sig Dispense Refill ??? amLODIPine (NORVASC) 10 mg tablet Take 1 tablet by mouth [...] daily. ??? Acetaminophen 650 mg Tab Take 1,300 mg by mouth daily as needed. ??? Vitamin E 200 unit Tab Take 400 Int'l Units by mouth daily. ??? nitroGLYcerin (NITROGLYN) 2 % ointment Place 0.5 inches onto the skin every 6 hours. DRUG ALLERGIES: Allergies as of 07/25/2014 ??? (No Known Allergies) SOCIAL HISTORY: Pt lives with her partner, Mike. No children. 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 She is active and enjoys biking, swimming and kayaking. Smoking: Denies. Second hand smoker from Mike ETOH: 1 glass wine/wk FAMILY HISTORY: sister with melanoma REVIEW OF SYSTEMS: A complete review of systems was obtained from the patient and confirmed by me. It was negative except for what was stated in the HPI. She otherwise denies heart disease, lung disease, diabetes, and infectious diseases. PHYSICAL EXAMINATION: Constitutional: This is a thin female in no apparent distress BP 128/68 Pulse 79 Temp 36.7 ??C (98.1 ??F) Resp 16 Ht 170.2 cm (5' 7) Wt 63.5 kg (139 lb 15.9 oz) BMI 21.92 kg/m2 Eyes: anicteric, extra ocular movements are intact Neuro: No focal deficits. Hearing and speech intact Psych: the patient is alert and oriented. Normal affect. Heart: Regular rate and rhythm, S1 S2. No peripheral edema Lungs: Clear bilaterally with good air intake Nodes: No palpable lymph nodes in the groin, axilla or neck. Abdomen: Soft, non-tender, non-distended. There are normal active bowel sounds, no hepatosplenomegaly. : Normal female anatomy. No hernias Musculoskeletal: The patient has normal gait, inhibited range of motion, and normal muscle strength Soft tissue exam: upper back to the left of the spine is an 8cm incision and a 6cmx8.5cm soft, partially mobile mass. Feels like a seroma. No erythema. No definite firm or hard areas felt. Skin: warm, thick and shiny, non-icteric. Fingers are white with taught skin. Data reviewed: 1) Pathology reports: In [facility]. Summarized in HPI above. Of note + B catenin 2) Surgical op notes Scanned in [facility]. Impression: Amber Wells is a 54 y.o. female with scleroderma who had a desmoid tumor >5cm excised from upper back. The most recent excision has a possible close or positive margin yet our pathologists had a difficult time discerning given the inflammation and granulation tissue. On currentexam there is a soft mass, likely seroma but can not tell if there is residual tumor or tumor growth. I discussed with Amber and her partner Mike the nature of desmoids. These are tumors that don't metastasize, yet they can be locally invasive and can recur. Primary desmoids have a variable course, where some may regress on their own, others stay dormant and other grow aggressively. Based on my clinical exam I can not tell if there is a recurrence or just post-surgical changes. I believe imaging with an MRI will help evaluate the extent of disease if any. Some series have shown that even with an R1 resection, about 50% recur. (Nohemi et al, Annals of Surg Onc 2012). Since this is a localdisease, one option would be to monitor with serial imaging and re-resect when there is evidence ofgrowth. Amber and Mike both asked questions that were answered to their satisfaction. We will arrange for an MRI to evaluate. This will be done when she returns for a follow up with her adult education instructor on 08/27/14. She was advised that if she or Mike notices any changes, increase in size or increase pain , to call the office to get the MRI at a sooner date. Plan: 1) MRI w/wo contrast to evaluate soft tissues of upper back. I explained the implications, indications and alternatives to the proposed treatment plan. 2) Will call patient with results and discuss next steps in treatment and/or follow up plan at thattime. Breanna Ordoñez MD Surgical Oncology 07/25/14 documented in this encounter Plan of Treatment Upcoming Encounters Date Type Department Care Team (Late st Contact Info) Description 10/07/2024 11:30 AM EST Office Visit Dermatology at [address] [phone] Jo Ordaz MD [facility] [place] [address] 12/13/2024 11:30 AM EST [place] [address] 12/13/2024 1:00 PM EST Office [place] [address] Kiet Pardo MD [facility] [place] [address] documented as of this encounter Procedures Procedure Name Priority Date/Time Associated Diagnosis Comments CREATININE Routine 07/25/2014 4:09 PM EDT Desmoid documented in this encounter Results * (ABNORMAL) Creatinine (07/25/2014 4:09 PM EDT) Creatinine 1.33(H) 0.70 - 1.20 mg/dL SALVADOR VALENCIA Comment: Please note that the pediatric reference intervals supplied above were not validated at [facility]. Results from pediatric patients should be interpreted in conjunction to the patient's age, height and muscle mass. Est Glomerular Filtration Rate 42(L) >=60 CERDONNIE NARVAEZFORMERLY [facility] Comment: This estimated GFR (eGFR) value was [...] the following links into your internet browser. [email or web address] Blood specimen (specimen) 07/25/2014 4:09 PM EDT 07/25/2014 4:13 PM EDT Narrative Resulting Agency Comment Spec In Lab Breanna Barreto MD CHEMISTRY ORDERA [facility] documented in this encounter Visit Diagnoses Diagnosis Desmoid- Primary Neoplasm of uncertain behavior of connective and other soft tissue Desmoid fibromatosis Other benign neoplasm of connective and other soft tissue of unspecified site documented in this encounter Care Teams Bronze Chaser Relationship Specialty Start Date End Date Yaritza Pierre MD [address] [place] [id number] PCP - General 03/27/12 11/27/18 documented as of this encounter
--- OUTSIDE RECORDS SUMMARY | 2024-09-14 13:12 | XMS_ITS | Encounter Summary ---
Author Organization [facility] Address [facility] [place] [address] Care Team Providers Care Buff Wheel Fabricator Name Role Phone Yaritza Pierre MD Primary Care Provider [phone] Reason for Visit * Reason Comments Skin Check Encounter Details Date Type Department Care Team (Late st Contact Info) Description 05/20/2014 11:00 AM EDT Follow-Up Dermatology at [facility] [address] [place] [address] Jo Ordaz MD [facility] [place] [place] [address] Seborrheic keratosis, inflamed (Primary Dx) Discharge Disposition: Home Social History [...] this encounter Patient Instructions * Patient Instructions* Jessica Arzola LPN - 05/20/2014 11:25 AM EDT Inflamed Seborrheic Keratoses You have been diagnosed today with Inflamed Seborrheic Keratosis (ISK). These lesions are benign and have no risk of turning into a skin cancer. Due to their bothersome nature, ISK's are usually treated. You were treated today with Liquid Nitrogen. This is the most common treatment for ISK's. Liquid nitrogen is extremely cold, and freezes the surface of the skin, causing the lesion to flake off. Treatment with liquid nitrogen can be uncomfortable, but discomfort should subside after a couple of hours. The area treated will look red and irritated, and it may blister up or turn dark, then fall off.This is normal! You do not need any special treatment for the area, but you may find cold compresses and/or a lightapplication of Vaseline soothing. For best results, do not rub or pick at the healing lesion. Expected healing time is 3-4 weeks. Please contact the Dermatology clinic at [phone] if the lesion has not fully resolved after 6 weeks. documented in this encounter Progress Notes * Jo Ordaz MD - 05/20/2014 11:11 AM EDT DERMATOLOGY ESTABLISHED PATIENT CLINIC NOTE Date of service: 05/20/2014 Amber Wells : 1960 Provider: Jo Ordaz MD Chief Complaint Patient presents with ??? Skin Check SKIN HISTORY: Scleroderma Lentigines Benign Nevi [place] Sister history of melanoma Deep, desmoid-type fibromatosis pending re-excision HPI Amber Wells is a 54 y.o. year old female established patient to me, last seen by Dr. Wilder on 05/21/2013. Patient presents today for a full skin cancer evaluation. Patient has scleroderma. She has had 2 excisions of tumors in her back. She is scheduled for a third excision this week. She has a vascular lesion on her left nose. She believes this is at a site of an actinic keratosis treated with LN 2 last year. She has a sore spot on her left upper forehead, not sure how long it's been there. She feels burning, itching with her tight skin in this area, deniesbleeding. Her sister was diagnosed with melanoma about 2 years ago. She wears sunscreen with SPF # 70 when outdoors, seldom wears a hat. She spends a lot of time outdoors. MEDS: Current Outpatient Prescriptions Medication Sig Dispense Refill ??? oxyCODONE 10 mg Tab Take 10 mg by mouth every 4 hours. ??? amLODIPine (NORVASC) 10 mg tablet Take [...] the skin every 6 hours. ??? [DISCONTINUED] predniSONE (DELTASONE) 10 mg tablet Take 1 tablet by mouth daily. 7 tablet 0 ADR: No Known Allergies ROS General: feeling [...] were not examined. Significant skin findings: A. 0.3 cm red vascular papule on left nose, scattered telangectasias on cheeks B. Inflamed and irritated, 0.4-0.5 cm brown papules with waxy, stuck-on appearance on left upper forehead. Milia-like cysts, comedone-like openings and/or fissuring on dermoscopy. C. Taut skin on face, hands, and feet. ASSESSMENT/PLAN: A. Angioma on left nose, telangiectasias on cheeks. Patient reassured of benign nature. B. seborrheic keratosis, inflamed and irritated. Patient would like it treated. I recommended treating with LN 2. Patient agrees. Procedure Note: Procedure: Destruction of lesion(s) with cryotherapy. Number: left upper forehead Location: as above Discussed procedure and expectations including risks (including risk of hypopigmentation) and benefits. Verbal consent obtained. Frozen with LN2, 15-30 second thaw time, TWICE. There were no complications; the patient tolerated the procedure well. Post-procedure expectations and wound care were reviewed. C. Scleroderma - managed by rheumatology Reviewed various types of skin cancer and ABCDEs of melanoma. Brochure given. Discussed importance of sun protection, sun avoidance strategies, protective clothing, and sunscreen. Follow up: in 1 year for full skin cancer evaluation, sooner if needed. I am documenting this encounter acting as the scribe for and in the presence of Dr. Ordaz: JESSICA ARZOLA LPN I performed the above scribed service and agree with the accuracy of the documentation in this encounter. Jo Ordaz MD [employer]fuels Production Associate of Dermatology, Department of Steam Power Plant OperatorBiofuels Production Associatereserve operator (Dermatopathology) [facility] documented in this encounter Plan of Treatment Upcoming Encounters Date Type Department Care Team (Late st Contact Info) Description 10/07/2024 11:30 AM EST Office Visit Dermatology at [place] [address] [place] [address] Jo Ordaz MD [facility] [place] [address] 12/13/2024 11:30 AM EST [place] [phone] 12/13/2024 1:00 PM EST Office [place] [address] Kiet Pardo MD [facility] [place] [address] documented as of this encounter Visit Diagnoses Diagnosis Seborrheic keratosis, inflamed- Primary Inflamed seborrheic keratosis documented in this encounter Care Teams Buff Wheel Fabricator Relationship Specialty Start Date End Date Yaritza Pierre MD [address] [place] [address] PCP - General 03/27/12 11/27/18 documented as of this encounter
--- OUTSIDE RECORDS SUMMARY | 2024-09-14 13:12 | XMS_ITS | Encounter Summary ---
[place] [address] Care Team Providers Care Overnight Babysitter Name Role Phone Yaritza Pierre MD Primary Care Provider [phone] Encounter Details Date Type Department Care Team (Late st Contact Info) Description 12/10/2014 Telephone [place] [address] Wendy Albarado, RN Social History Tobacco Use Types Packs/Day [...] Telephone Encounter - Wendy Albarado RN - 12/11/2014 9:39 AM EST Medication Prior Authorization Medication name/dose/directions: fosinopril 40mg twice a day Rationale for request: requires PERRY with long half life for scleroderma Health plan: [employer] Authorizing charter representative name: [employer] Faxed to health plan on: 12/10/2014 Health plan decision: initially denied but approved with additional information (see below) Quantity approved: 60/one month Authorization number: [id number] Start date: 12/10/14 End date:12/10/15 Patient notified? Yes Pharmacy notified? Yes by fax * Telephone Encounter - Wendy Albarado RN - 12/10/2014 11:34 AM EST O. Received denial from insurance for fosinopril 40mg twice a day. Asked [place] for a RE-review with additional information-she is on max dose of fosinopril to prevent renal hypertensive crisis. Fosinopril has a long (12 hour) half-life which is desired in this case. Angiotensin-Converting Enzyme Inhibitors Table 1. Pharmacology of PERRY Inhibitors Approved in the [place] Captopril Enalapril Lisinopril Benazepril Quinapril Ramipril Trandolapril Moexipril Fosinopril Zinc ligand Sulfhydryl Carboxyl Carboxyl Carboxyl Carboxyl Carboxyl Carboxyl Carboxyl Phosphinyl Prodrug No Yes No Yes Yes Yes Yes Yes Yes tmax active drug, h 0.7-0.9 2-8 6-8 1-2 2 3 4-10 1.5 3 t1/2 active drug, h 1.7 11 12 10-11 1.9-2.5, 25 terminal Triphasic 4, 9-18, >50 15-24 terminal 2-9 12 Route of elimination Kidney Kidney Kidney Kidney Kidney Kidney Kidney, liver Kidney Liver, kidney Dosage range, mg 6.25-300 2.5-40 5-40 5-80 5-80 1.25-20 1-8 7.5-30 10-80 F, %1 75-91 60 6-60 >37 >60 50-60 70 13 36 1 F indicates bioavailability. Plan: Re-review requested with due to the half-life of fosinopril. Expedited review requested. Discussed with Dr Burciaga. documented in this encounter Plan of Treatment Upcoming Encounters Date Type Department Care Team (Late st Contact Info) Description 10/07/2024 11:30 AM EST Office Visit Dermatology at [facility] [address] [place] [address] Jo Ordaz MD [facility] [place] [address] 12/13/2024 11:30 AM EST [place] [address] 12/13/2024 1:00 PM EST Office [place] [address] Kiet Pardo MD [facility] [place] [address] documented as of this encounter Visit Diagnoses Not on filedocumented in this encounter Care Teams Overnight Babysitter Relationship Specialty Start Date End Date Yaritza Pierre MD [address] [place] [address] PCP - General 03/27/12 11/27/18 documented as of this encounter
--- OUTSIDE RECORDS SUMMARY | 2024-09-14 13:12 | XMS_ITS | Encounter Summary ---
Author Organization [facility] [place] [address] Care Team Providers Care Feed Mixer Name Role Phone Yaritza Pierre MD Primary Care Provider [phone] Encounter Details Date Type Department Care Team (Late st Contact Info) Description 12/24/2014 Telephone [place] [address] Evelyn Miller, [facility] [place] [address] Social History Tobacco Use Types Packs/Day Years [...] Telephone Encounter - Evelyn Miller APRN - 12/24/2014 4:32 PM EST Spoke with amber about the results of her anal manometry that revealed 1. Low anal canal pressures. 2. Weak EAS resting pressure. 3. Excellent EAS squeeze pressures. 4. Normal RAIR rules out Hirschsprung's disease. 5. Evidence of mild rectal hypersensitivity given low MTV. 6. Abnormal balloon expulsion test. Recommend continuing with Kegel exercises and PT. She is experiencing nausea and lower leg edema with taking Amitiza. Recommend that she stop Amitiza. Will have her try Miralax 8 grams qhs and can increase to 17 grams qhs if no improvement after 7 days. Continue to use Dulcolax 10 mg IN qd qd-qod. Will email her instructions via [facility]. She denies gas/bloating at this time. She is amenable to this. documented in this encounter Plan of Treatment Upcoming Encounters Date Type Department Care Team (Late st Contact Info) Description 10/07/2024 11:30 AM EST Office Visit Dermatology at [place] [address] [place] [address] Jo Ordaz MD [facility] [place] [address] 12/13/2024 11:30 AM EST Appointment [place] [address] 12/13/2024 1:00 PM EST Office [place] [address] Kiet Pardo MD [facility] [place] [address] documented as of this encounter Visit Diagnoses Diagnosis Constipation, unspecified constipation type documented in this encounter Care Teams Feed Mixer Relationship Specialty Start Date End Date Yaritza Pierre MD [address] [place] [address] PCP - General 03/27/12 11/27/18 documented as of this encounter
--- OUTSIDE RECORDS SUMMARY | 2024-09-14 13:12 | XMS_ITS | Encounter Summary ---
[place] [address] Care Team Providers Care Switch House Operator Name Role Phone Yaritza Pierre MD Primary Care Provider Encounter Details Date Type Department Care Team (Latest Contact Info) Description 12/09/2014 10:00 AM EST Procedure [place] [address] CLINIC, Mahsa Barrios, RN Pelvic floor dysfunction Discharge Disposition: Home Social History Tobacco Use [...] Progress Notes * Sumit Lucas MD - 12/20/2014 3:38 PM EST ANORECTAL MANOMETRY, SENSORY TESTING, BALLOON EXPULSION Amber Wells Age: Female, 54 y.o., 1960 PCP: Yaritza Pierre PUMPER GAGER APPRENTICE: NONE STUDY DATE: 12/09/14 PROVIDER: Sumit Lucas, [place] ([id number]) INDICATION Incomplete evacuation, urgency, incontinence. METHODS An anorectal manometry study was performed in a supervised setting, after verbal consent, using SolveBoard module with the WatchFrog software. A solid-state, four-channel circumferential transducer was inserted 6 cm in the rectum and sequentially withdrawn at 1-cm intervals. Resting pressures,sphincter function, anorectal reflex and rectal sensation were determined. No complications were not ed during this procedure. FINDINGS: Upper border of anal canal: 5 cm and extended to 1 cm. Resting pressure of anal canal 10 mmHg (normal =25 mmHg and above). Resting pressure of the external anal sphincter (EAS) muscle: 15 mmHg (normal=30 mmHg and above). During voluntary contraction of the EAS, the patient could achieve peak squeeze pressures of 160 mmHg above baseline and could maintain this for 4 seconds. Mean EAS squeeze pressures: 151 mmHg. During attempted sustained contractions the patient could generate pressures of 144 mmHg above baseline and maintain this for 4 seconds. Rectoanal inhibitory reflex (RAIR): present. Rectal Filling First sensation: 50 ml Constant sensation: 90 ml Maximum tolerable: 120 ml Balloon Expulsion Test With the patient in the right lateral recumbent position, a balloon expulsion test was performed. During a two-minute period, the patient was unable to expel a 50-cc rectal balloon. IMPRESSION 1. Low anal canal pressures. 2. Weak EAS resting pressure. 3. Excellent EAS squeeze pressures. 4. Normal RAIR rules out Hirschsprung's disease. 5. Evidence of mild rectal hypersensitivity given low MTV. 6. Abnormal balloon expulsion test. RECOMMENDATION Low anal canal pressures combined with weak EAS resting pressure, even with strong EAS squeeze pressures, may predispose the patient to episodes of incontinence, especially if diarrhea is an issue. In this patient, with a history of a connective tissue disorder, treating the diarrhea (considering SI BEN) may help the incontinence. Kegel exercises should be performed to further increase EAS squeeze pressures and slowly increase the EAS resting pressure. Sumit Lucas, PhD, MD perinatal nurse, [facility] [employer] Section of Gastroenterology and Hepatology [facility] [place] [address] [address] V: [phone] F: [phone] BEL/bcj EC/CC: PCP - staff msg copy 12/12/14 Evelyn Miller APRN - staff msg copy 12/12/14 * Mahsa Carlisle, RN - 12/09/2014 10:42 AM EST Anal manometry performed without difficulty and was well tolerated. She was not able to expel the balloon. documented in this encounter Plan of Treatment Upcoming Encounters Date Type Department Care Team (Late st Contact Info) Description 10/07/2024 11:30 AM EST Office Visit Dermatology at [address] [address] Jo Ordaz MD [facility] [address] 12/13/2024 11:30 AM EST [place] [address] 12/13/2024 1:00 PM EST Office [place] [address] Kiet Pardo MD [facility] [place] [address] documented as of this encounter Visit Diagnoses Diagnosis Pelvic floor dysfunction Pelvic muscle wasting documented in this encounter Care Teams Switch House Operator Relationship Specialty Start Date End Date Yaritza Pierre MD [address] [place] [address] PCP - General 03/27/12 11/27/18 documented as of this encounter
--- OUTSIDE RECORDS SUMMARY | 2024-09-14 13:12 | XMS_ITS | Encounter Summary ---
Author Organization [facility] [address] Care Team Providers Care Vacuum Metalizer Operator Name Role Phone Yaritza Pierre MD Primary Care Provider [phone] Encounter Details Date Type Department Care Team (Late Contact Info) Description 05/27/2014 [place] [address] Jovany Barriga MD [address] [place] [address] Social History Tobacco Use Types Packs/Day Years [...] 11:30 AM EST Office Visit Dermatology at [facility] [address] [place] [address] Jo Ordaz MD [facility] [address] [place], [place] [phone] 12/13/2024 11:30 AM EST Appointment Pulmonology at [place] [phone] 12/13/2024 1:00 PM EST [place] [address] Kiet Pardo MD [facility] [place] [address] documented as of this encounter Visit Diagnoses Not on filedocumented in this encounter Care Teams Vacuum Metalizer Operator Relationship Specialty Start Date End Date Yaritza Pierre MD [address] [place] [address] PCP - General 03/27/12 11/27/18 documented as of this encounter
--- OUTSIDE RECORDS SUMMARY | 2024-09-14 13:12 | XMS_ITS | Encounter Summary ---
Author Organization [facility] [place] [address] Care Team Providers Care Parachute Accessories Attacher Name Role Phone Yaritza Pierre MD Primary Care Provider [phone] Encounter Details Date Type Department Care Team (Latest Contact Info) Description 05/06/2014 9:05 PM EDT - 05/06/2014 11:59 PM EDT Hospital [place] [address] Jovany Jensen MD [address] [place] [address] Discharge Disposition: Home Social History Tobacco Use [...] onto the skin every 6 hours. amLODIPine (NORVASC) 10 mg tablet Take 1 tablet by mouth daily. 90 tablet 3 03/26/2014 10/31/2014 predniSONE (DELTASONE) 10 mg tablet Take 1 tablet by mouth daily. 7 tablet 0 03/26/2014 05/20/2014 fosinopril (MONOPRIL) 40 mg tabletIndications:Scl eroderma,CKD (chronic kidney disease) stage 3, GFR 30-59 ml/min Take 1 tablet by mouth 2 times daily. 180 tablet 3 03/26/2014 05/27/2015 lidocaine-prilocaine (EMLA) cream Apply topically as needed. 30 g 2 05/21/2013 01/09/2020 esomeprazole (NEXIUM) 40 mg capsuleIndications:CK D (chronic kidney disease) stage 3, GFR 30-59 ml/min,Scleroderma,CK D (chronic kidney disease) Take 1 capsule by mouth 2 times daily. 180 capsule 3 12/06/2012 12/26/2014 Acetaminophen 650 mg Tab Take 650 mg by mouth daily as needed. 05/18/2011 09/23/2016 documented as of this encounter Plan of Treatment Upcoming Encounters Date Type Department Care Team (Late st Contact Info) Description 10/07/2024 11:30 AM EST Office Visit Dermatology at [address] [address] Jo Ordaz MD [facility] [place] [address] 12/13/2024 11:30 AM EST Appointment [place] [address] 12/13/2024 1:00 PM EST Office [place] [address] Kiet Pardo MD [facility] [place] [address] documented as of this encounter Procedures Procedure Name Priority Date/Time Associated Diagnosis Comments SURGICAL PATHOLOGY REPORT Routine 05/06/2014 5:30 AM EDT documented in this encounter Results * Surgical Pathology Report (05/06/2014 5:30 AM EDT) Final Diagnosis ? [facility] ? Provider: ?? JOVANY JENSEN ? Pt. Name: ?? EUNICE AMBER ? Acc #: ?[id number] ?Pt. ? Col Date: ?? 05/06/2014 ? /Sex: ?1960,(53 years),Female ? Rec Date: ?? 05/06/2014 ? LOC: ?[facility] ? SURGICAL PATHOLOGY ? ---Pathologic Diagnosis--- ? A - Soft tissue mass, back, resection: ? Deep, desmoid-type fibromatosis, measuring up to 5.0 cm, extending to ? the left, superficial, cephalad and deep margins. (See ? Comment.) ? 05/08/14 ? APM ? 05/09/14 Verified by: ? Harish DO, Ling Mariee. ? Pathologist ? (Electronic Signature) ? The attending pathologist whose signature appears on this report has ? reviewed all diagnostic slides and has edited the gross and/or ? microscopic portion of the report in rendering the final pathologic ? diagnosis. ? ---Comment--- ? IHC was performed on the prior biopsy [id number]. ??The tumor appears bland ? but has mitoses focally up to 12 per 10 hpf. ??Although the tumor is ? somewhat circumscribed, it shows growth into the surrounding tissues and at ? the margins listed. ? ---Microscopic Description--- ? Immunohistochemistry Studies: ? [...] ? Block ?Antibody ? Result (Positive/Negative) ? A5 ? catenin(beta) ? Positive ? ---Gross Description--- ? A - Labeled/Fixative: Soft tissue mass, back, formalin. ? Quantity/Size: Single, 6.0 x 4.5 x 2.4 cm. ? Tissue Description: Fibrofatty subcutaneous tissue with some skeletal ? muscle on the posterior aspect. ??The specimen is received ? [facility] ? Provider: ?? JOVANY JENSEN ? Pt. Name: ?? AMBER WELLS ? Acc #: ?[id number] ?Pt. ? Col Date: ?? 05/06/2014 ? /Sex: ?1960,(53 years),Female ? Rec Date: ?? 05/06/2014 ? LOC: ?[facility] ? SURGICAL PATHOLOGY ? oriented with a short suture designating deep posterior margin, a long ? suture designating cephalad and a short and long suture designated right ? margin. ??Sectioning reveals a 5.0 x 2.5 x 2.0 cm firm, white, fibrous ? mass. ??The mass abuts the left, posterior and anterior margins. ? Sections/Processing: The ink designations are Red (right), Yellow (left), ? Alcorn (cephalad), Green (caudal), Black (deep) and Blue (superficial). ? (1) mass to left margin; (2-8) mass to posterior, anterior, caudal and ? cranial margin; (9) right margin. ? (R9) ??sns ? ---Clinical Information--- ? Specimen Submitted: ? A - Soft tissue mass back ? Clinical History: ? Soft tissue mass, back ? Clinical Diagnosis: ? Excision of soft tissue mass ? Referring Identifier: ??[id number] ? [id number] 05/09/2014 2:40 PM EDT [facility] SOFT TISSUE MASS / Unknown 05/06/2014 5:30 AM EDT 05/06/2014 5:30 AM EDT Jovany Jensen MD PATHOLOGY/CYTOLOGY O RDERABLES [facility] [place] [address] documented in this encounter Visit Diagnoses Not on filedocumented in this encounter Care Teams Parachute Accessories Attacher Relationship Specialty Start Date End Date Yaritza Pierre MD [address] [place] [address] PCP - General 03/27/12 11/27/18 documented as of this encounter
--- OUTSIDE RECORDS SUMMARY | 2024-09-14 13:12 | XMS_ITS | Encounter Summary ---
Author Organization [facility] [place] [address] Care Team Providers Care Dope Pourer Name Role Phone Yaritza Pierre MD Primary Care Provider Reason for Visit * Reason Onset Date Comments Other 03/26/2014 [facility]l [facility] Co Encounter Details Date Type Department Care Team (Late st Contact Info) Description 03/26/2014 [place] [phone] Debbie Cuenca Other (MAP-Appl to Co) Social History Tobacco Use Types Packs/Day Years [...] encounter Miscellaneous Notes * Telephone Encounter - Debbie Cuenca - 03/26/2014 9:12 AM EDT [facility]-Appl to Co I received the application and prescription for a 90-day supply of Nexium. I faxed them to [email or web address] documented in this encounter Plan of Treatment Upcoming Encounters Date Type Department Care Team (Late st Contact Info) Description 10/07/2024 11:30 AM EST Office Visit Dermatology at [facility] [address] [place] [address] Jo Ordaz MD [facility] [place] [address] 12/13/2024 11:30 AM EST [place] [phone] 12/13/2024 1:00 PM EST Office [place] [phone] Kiet Pardo MD [facility] [place] [address] documented as of this encounter Visit Diagnoses Not on filedocumented in this encounter Care Teams Dope Pourer Relationship Specialty Start Date End Date Yaritza Pierre MD [address] [place] [address] PCP - General 03/27/12 11/27/18 documented as of this encounter
--- OUTSIDE RECORDS SUMMARY | 2024-09-14 13:12 | XMS_ITS | Encounter Summary ---
Author Organization [facility] [place] [address] Care Team Providers Care Credit Union Examiner Name Role Phone Yaritza Pierre MD Primary Care Provider Reason for Visit * Reason Onset Date Comments Medication Refill 12/26/2014 Encounter Details Date Type Department Care Team (Late st Contact Info) Description 12/26/2014 Refill [place] [address] Sumit Sawyer MD [facility] [place] [address] CKD (chronic kidney disease) stage 3, GFR 30-59 ml/min; Scleroderma; CKD (chronic kidney disease) Social History Tobacco Use Types Packs/Day Years [...] Telephone Encounter - Breanna Kerns LPN - 12/26/2014 12:55 PM ESTFrom: Amber Wells To: Sumit Sawyer MD Sent: 12/26/2014 11:50 AM EST Subject: Medication Renewal Request Original authorizing provider: MD Amber HUTTON would like a refill of the following medications: esomeprazole (NEXIUM) 40 mg capsule [SUMIT SAWYER MD] Preferred pharmacy: [address] Comment: Azeem Olivo I hope you have a nice winter. I used to have Nexium from the company but now, because Ihave a new Insurance company ([employer]), I will have to order the Nexium at [facility] in [facility] and I will charge [employer]. So, is it possible for you to call this prescription at [facility] in [place] ? Thank you and have a great day, See you soon, Amber documented in this encounter Plan of Treatment Upcoming Encounters Date Type Department Care Team (Late Contact Info) Description 10/07/2024 11:30 AM EST Office Visit Dermatology at [address] [address] Jo Ordaz MD [facility] [place] [address] 12/13/2024 11:30 AM EST [place] [address] 12/13/2024 1:00 PM EST Office [place] [address] Kiet Pardo MD [facility] [place] [address] documented as of this encounter Visit Diagnoses Diagnosis CKD (chronic kidney disease) stage 3, GFR 30-59 ml/min Chronic kidney disease, Stage III (moderate) Scleroderma Systemic sclerosis CKD (chronic kidney disease) Chronic kidney disease, unspecified documented in this encounter Care Teams Credit Union Examiner Relationship Specialty Start Date End Date Muello, Yaritza G, MD [address] [place] [address] PCP - General 03/27/12 11/27/18 documented as of this encounter
--- OUTSIDE RECORDS SUMMARY | 2024-09-14 13:12 | XMS_ITS | Encounter Summary ---
Author Organization [facility] [address] [address] Care Team Providers Care Supervisor Slate Splitting Name Role Phone Yaritza Pierre MD Primary Care Provider [phone] Encounter Details Date Type Department Care Team (Late st Contact Info) Description 11/20/2014 Orders [place] [address] Evelyn Miller APRN [facility] [place] [address] Constipation, unspecified constipation type Social History Tobacco [...] Visit Dermatology at [facility] [address] [place] [address] Jo Ordaz MD [facility] [place] [address] 12/13/2024 11:30 AM EST [place] [address] 12/13/2024 1:00 PM EST Office [place] [address] Kiet Pardo MD [facility] [place] [address] documented as of this encounter Visit Diagnoses Diagnosis Constipation, unspecified constipation type documented in this encounter Care Teams Supervisor Slate Splitting Relationship Specialty Start Date End Date Yaritza Pierre MD [address] [place] [address] PCP - General 03/27/12 11/27/18 documented as of this encounter
--- OUTSIDE RECORDS SUMMARY | 2024-09-14 13:12 | XMS_ITS | Encounter Summary ---
Author Organization [facility] [place] [address] Care Team Providers Care Industrial Sales Engineer Name Role Phone Yaritza Pierre MD Primary Care Provider [phone] Encounter Details Date Type Department Care Team (Late st Contact Info) Description 01/13/2015 Orders [place] [address] Yu Mcdonough [facility] [place] [address] Social History Tobacco Use Types Packs/Day Years [...] Dermatology at [facility] [address] [place] [address] Jo Ordaz MD [facility] [place] [address] 12/13/2024 11:30 AM EST Appointment [place] [address] 12/13/2024 1:00 PM EST Office [place] [address] Kiet Pardo MD [facility] [place] [address] documented as of this encounter Visit Diagnoses Not on filedocumented in this encounter Care Teams Industrial Sales Engineer Relationship Specialty Start Date End Date Yaritza Pierre MD [address] [place] [address] PCP - General 03/27/12 11/27/18 documented as of this encounter
--- OUTSIDE RECORDS SUMMARY | 2024-09-14 13:12 | XMS_ITS | Encounter Summary ---
Author Organization [facility] [place] [address] Care Team Providers Care Security Solutions Engineer Name Role Phone Yaritza Pierre MD Primary Care Provider [phone] Encounter Details Date Type Department Care Team (Late st Contact Info) Description 09/22/2014 Orders [place] [address] Yu Mcdonough [facility] [place] [address] Social History Tobacco Use Types Packs/Day Years [...] AM EST Office Visit Dermatology at [facility] [address] [place] [address] Jo Ordaz MD [facility] [place] [address] 12/13/2024 11:30 AM EST Appoint[place] [address] 12/13/2024 1:00 PM EST Office [place] [address] Kiet Pardo MD [facility] [place] [address] documented as of this encounter Visit Diagnoses Not on filedocumented in this encounter Care Teams Security Solutions Engineer Relationship Specialty Start Date End Date Yaritza Pierre MD [address] [place] [address] PCP - General 03/27/12 11/27/18 documented as of this encounter
--- OUTSIDE RECORDS SUMMARY | 2024-09-14 13:12 | XMS_ITS | Encounter Summary ---
Author Organization [facility] [place] [address] Care Team Providers Care Batting Machine Operator Insulation Name Role Phone Yaritza Pierre MD Primary Care Provider [phone] Encounter Details Date Type Department Care Team (Late st Contact Info) Description 02/18/2015 Orders [place] [address] Evelyn Miller APRN [facility] [place] [address] Scleroderma; Abdominal bloating; Altered bowel habits Social History Tobacco Use Types Packs/Day Years [...] at [facility] [address] [place] [address] Jo Ordaz MD [facility] [address] 12/13/2024 11:30 AM EST [place]oint[place] [address] 12/13/2024 1:00 PM EST Office [place] [address] Kiet Pardo MD [facility] [place] [address] documented as of this encounter Visit Diagnoses Diagnosis Scleroderma Systemic sclerosis Abdominal bloating Flatulence, eructation, and gas pain Altered bowel habits Other symptoms involving digestive system documented in this encounter Care Teams Batting Machine Operator Insulation Relationship Specialty Start Date End Date Yaritza Pierre MD [address] [place] [address] PCP - General 03/27/12 11/27/18 documented as of this encounter
--- OUTSIDE RECORDS SUMMARY | 2024-09-14 13:12 | XMS_ITS | Encounter Summary ---
Author Organization Count Includes [facility] Address [facility] [place] [address] Care Team Providers Care Obstetrician Gynecologist Name Role Phone Niesha Gonzalez MD Primary Care Provider [phone] Encounter Details Date Type Department Care Team (Late st Contact Info) Description 02/17/2015 2:27 PM EDT - 02/17/2015 11:59 PM EDT Hospital [place] [address] CLINIC, Breanna Nolen MD [facility] [place] [address] Desmoid Discharge Disposition: Home Social History Tobacco [...] - Weight 64.4 kg (142 lb) 02/17/2015 4:06 PM EDT Height - - Body Mass Index 22.24 02/17/2015 1:39 PM EDT documented in this encounter Medications at Time of Discharge Medication Sig Dispensed Refills Start Date End Date cholecalciferol, Vitamin D3, 25 mcg (1,000 unit) Capsule Take 1 tablet by mouth daily. nitroGLYcerin (NITROGLYN) 2 % ointment Place 0.5 inches onto the skin every 6 hours. rifaximin (XIFAXIN) 550 mg TabletIndications:S cleroderma,Abdomina l bloating,Altered bowel habits Take 1 tablet by mouth 3 times daily for 10 days. 30 tablet 3 02/17/2015 02/27/2015 METHYLCELLULOSE (CITRUCEL ORAL) Take 1 tablet by mouth daily. 05/27/2015 sildenafil (REVATIO) 20 mg Tablet Take 1 tablet by mouth 3 times daily. 90 tablet 11 01/16/2015 02/19/2015 esomeprazole (NEXIUM) 40 mg Capsule, Delayed Release(E.C.)Indica [...] as of this encounter Progress Notes * Randa Almeida RN - 02/13/2015 9:03 AM EDT VIR MRI PRE-SEDATION ASSESSMENT NOTE NAME: Amber Wells AGE: 54 y.o. : 1960 Female [phone] (home) Telephone Information: PCP MRI SUPERVISOR NIESHA GONZALEZ MD None No Known Allergies Date/Time of call: February 13, 2015/9:03 AM/ PREVIOUS MRI SCAN? yes HEIGHT: 67 WEIGHT:143# SCHEDULED SCAN: MRI Upper Ext wwo SUBJECTIVE:I am claustrophobic. ASSESSMENT:Patient candidate for po sedation PLAN:LABS PRIOR-ORDER IN; Ativan 1-2 mg per protocol PRIOR SCAN DATE/S SEDATION TYPE SUCCESSFUL NOne 08/28/14MRI with PO sedation Ativan 1 mg x 2 po yes 02/17/15MRI Upper Ext wwo Ativan 1 mg x 2 po yes PT WILL ARRIVE 1 HR. BEFORE SCHEDULED SCAN AND HAVE A BUSINESS AREA DIRECTOR AVAILABLE. PT STATED TO RESPIRATORY THERAPIST THAT THE SEDATION WAS EFFECTIVE FOR SCAN: Y__[id number]___N COMMENTS: This patient has been informed that they require a public transit trolley driver to drive them home after this procedure. In the absence of a public transit trolley driver, IR will not be able to perform this procedure and will need to reschedule. Pt verbalized understanding of these instructions during the pre-procedure education via phone. documented in this encounter Plan of Treatment Upcoming Encounters Date Type Department Care Team (Late st Contact Info) Description 10/07/2024 11:30 AM EST Office Visit Dermatology at [place] [address] [place] [address] Jo Ordaz MD [facility] [place] [address] 12/13/2024 11:30 AM EST Appointment [place] [address] 12/13/2024 1:00 PM EST Office Visit Rheumatology at [facility] [place] [address] Kiet Pardo MD [facility] [address] documented as of this encounter Procedures Procedure Name Priority Date/Time Associated Diagnosis Comments MRI UPPER EXTREMITY NON JOINT WITH CONTRAST Routine 02/17/2015 4:48 PM EDT documented in this encounter Results * (ABNORMAL) MRI upper extremity non joint with contrast (02/17/2015 4:48 PM EDT) Anatomical Region Laterality Modality Shoulder, Arm, Elbow, Forearm, Wrist, Hand Magnetic Resonance 02/17/2015 4:48 PM EDT Impressions 02/17/2015 5:59 PM EDT IMPRESSION: 1. Unexpected finding: Slight increase in degree rind of peripheral enhancement surrounding the postoperative fluid collection within the subcutaneous fat of the left upper paraspinal region. 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 2. Overall decrease in size of the postoperative fluid collection in the surgical bed, now measuring 17 x 10 x 4 mm. 3. Partially imaged T2 hyperintense lesions within the visualized upper portion of the liver, not optimally characterized. These are statistically likely to represent either cysts or hemangiomas though would consider further assessment with a right upper quadrant ultrasound if no prior cross-sectional imaging has been performed elsewhere. Narrative 02/17/2015 5:59 PM EDT EXAMINATION: MR UPPER EXT WITH CONTRAST/LEFT CLINICAL HISTORY: s/p resection of desmoid in Left upper back/subscapular area evaluate for recurrence COMPARISON: None TECHNIQUE: Pre and postcontrast MRI of the left chest wall was performed. CONTRAST: 6 cc IV Gadavist FINDINGS: Since the prior MRI of 08/28/2014, there [...] mediastinal lymphadenopathy or left axillary lymphadenopathy is detected. The small amount of hypointense nonenhancing signal along the expected margin of the left pectoralis major tendon adjacent to the anterior aspect of the humeral diaphysis is unchanged and nonspecific, likely represent calcification or hemosiderin. Incidental finding of small subcentimeter T2 hyperintense left thyroid nodules or cysts, of doubtful clinical significance. Additionally, there are few small T2 hyperintense lesions within the visualized portion of the upper the liver largest measuring 16 mm in size, nonspecific and not optimally characterized though likely to represent either cysts or hemangiomas. No suspicious marrow placing lesion or fracture. Resulting Agency Comment Unexpected Finding Procedure Note Davin Serrano MD - 02/17/2015 EXAMINATION: MR UPPER EXT WITH CONTRAST/LEFT CLINICAL HISTORY: s/p resection of desmoid in Left upper back/subscapulararea evaluate for recurrence COMPARISON: None TECHNIQUE: Pre and postcontrast MRI of the left chest wall wasperformed. CONTRAST: 6 cc IV Gadavist FINDINGS: Since the prior MRI of 08/28/2014, there has been decrease in size of thenow 17 x 4 x 10 mm T2 hyperintense postoperative fluid collection located inthe subcutaneous fat of the left paraspinal region, previously measuring 9 x29 x 17 mm in size. There is a surrounding relatively thick rim of enhancingtissue however in the subcutaneous fat measuring approximately 5 x 1.4 x 4.2 cmin size, which does appear to have increased slightly since prior with softtissue enhancement appearing to extend into the superficial margin of theunderlying trapezius muscle, identified best on series 9-52. Finding is worrisomefor residual or recurrent desmoid tumor. No new soft tissue mass identified otherwise. No mediastinal lymphadenopathy or left axillary lymphadenopathyis detected. The small amount of hypointense nonenhancing signal along the expectedmargin of the left pectoralis major tendon adjacent to the anterior aspect of thehumeral diaphysis is unchanged and nonspecific, likely represent calcificationor hemosiderin. Incidental finding of small subcentimeter T2 hyperintense left thyroidnodules or cysts, of doubtful clinical significance. Additionally, there are fewsmall T2 hyperintense lesions within the visualized portion of the upper theliver largest measuring 16 mm in size, nonspecific and not optimallycharacterized though likely to represent either cysts or hemangiomas. No suspiciousmarrow placing lesion or fracture. IMPRESSION IMPRESSION: 1. Unexpected finding: Slight increase in degree rind of peripheralenhancement surrounding the postoperative fluid collection within the subcutaneous fatof the left upper paraspinal region. 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 2. Overall decrease in size of the postoperative fluid collection in the surgical bed, now measuring 17 x 10 x 4 mm. 3. Partially imaged T2 hyperintense lesions within the visualized upperportion of the liver, not optimally characterized. These are statistically likelyto represent either cysts or hemangiomas though would consider furtherassessment with a right upper quadrant ultrasound if no prior cross-sectional imaginghas been performed elsewhere. 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 64.4 kg), Intravenous, ONCE PRN, 1 dose, Starting on Mon02/17/15 at 1606, Until Mon02/17/15 at 1620, Per Protocol, Routine Given 02/17/2015 4:20 PM EDT 6 mLs LORazepam (ATIVAN) tablet 1 mg 1 mg, Oral, EVERY 30 MIN PRN, 2 doses, Starting on Mon02/17/15 at 0740, Until Mon02/17/15 at 1519, Anxiety, Angio/IR (Day of Procedure), Routine Given 02/17/2015 3:19 PM EDT 1 mg Given 02/17/2015 2:57 PM EDT 1 mg documented in this encounter Care Teams Obstetrician Gynecologist Relationship Specialty Start Date End Date Niesha Gonzalez MD [address] [place] [address] PCP - General 03/27/12 11/27/18 documented as of this encounter
--- OUTSIDE RECORDS SUMMARY | 2024-09-14 13:12 | XMS_ITS | Encounter Summary ---
Author Organization [facility] [place] [address] Care Team Providers Care Curatorial Assistant Name Role Phone Yaritza Pierre MD Primary Care Provider [phone] Reason for Visit * Reason Onset Date Comments Medication Refill 02/19/2015 Encounter Details Date Type Department Care Team (Late st Contact Info) Description 02/19/2015 Refill [place] [address] Gem Richey, RN Social History Tobacco Use [...] 11:30 AM EST Office Visit Dermatology at [facility] [address] [place] [address] Jo Ordaz MD [facility] [place] [address] 12/13/2024 11:30 AM EST Appointment [place] [address] 12/13/2024 1:00 PM EST Office [place] [address] Kiet Pardo MD [facility] [place] [address] documented as of this encounter Visit Diagnoses Not on filedocumented in this encounter Care Teams Curatorial Assistant Relationship Specialty Start Date End Date Yaritza Pierre MD [address] [place] [address] PCP - General 03/27/12 11/27/18 documented as of this encounter
--- OUTSIDE RECORDS SUMMARY | 2024-09-14 13:12 | XMS_ITS | Encounter Summary ---
Author [place] [address] Care Team Providers Care Specialist Employee Labor Relations Name Role Phone Yaritza Pierre MD Primary Care Provider [phone] Reason for Visit * Reason Onset Date Comments Prior Authorization 08/05/2014 Encounter Details Date Type Department Care Team (Late st Contact Info) Description 08/05/2014 Telephone Nephrology [place] [address] Wendy Albarado RNit technician Social History Tobacco Use Types Packs/Day Years [...] Telephone Encounter - Wendy Albarado RN - 08/05/2014 10:01 AM EDT Medication Prior Authorization Medication name/dose/directions: Fosinopril 40mg twice a day Rationale for request: for hypertension and prevention sclerodermal renal crisis [place] Authorizing outside industrial sales representative name: [employer] Administration Faxed to health plan on: called Health plan decision: approved Quantity approved: 60/month Authorization number: Start date: 08/05/2014 End date: 08/04/2014 Patient notified? Yes Pharmacy notified? Yes documented in this encounter Plan of Treatment Upcoming Encounters Date Type Department Care Team (Late st Contact Info) Description 10/07/2024 11:30 AM EST Office Visit Dermatology at [facility] [address] [place] [address] Jo Ordaz MD [facility] [address] 12/13/2024 11:30 AM EST Appointment [place] [address] 12/13/2024 1:00 PM EST Office [place] [address] Kiet Pardo MD [facility] [place] [address] documented as of this encounter Visit Diagnoses Not on filedocumented in this encounter Care Teams Specialist Employee Labor Relations Relationship Specialty Start Date End Date Yaritza Pierre MD [address] [place] [address] PCP - General 03/27/12 11/27/18 documented as of this encounter
--- OUTSIDE RECORDS SUMMARY | 2024-09-14 13:12 | XMS_ITS | Encounter Summary ---
[place] [address] Care Team Providers Care Dice Spotter Name Role Phone Yaritza Pierre MD Primary Care Provider Reason for Visit * Reason Onset Date Comments Other 01/29/2015 Encounter Details Date Type Department Care Team (Late st Contact Info) Description 01/29/2015 Telephone [place] [address] Randa Garcia, RN NEPHROLOGY HYPERTENSION Other Social [...] Telephone Encounter - Randa Garcia RN - 01/29/2015 8:18 AM EDT Medication Prior Authorization Medication name/dose/directions: Esomeprazole Mag DR 40 mg, take one capsule twice daily. Rationale for request: poor response, intolerance to omeprazole, pantoprazole and ranitidine. Health plan: [employer], [employer] Authorizing advertising sales representative name: Fax received from [employer], Pharmacy Services Department. Faxed to health [facility] on: Initial PA faxed to Health Plan on 12/31/14. Request denied. Re-review faxed on 01/07/15. No response, call placed on 01/21/15 and was told they did not receive the fax on 01/07. Request re-faxed. No response, call placed on 01/27 and was told they did not receive the fax on 01/21 (receipt received that fax went through). Spoke with Johanna who took the re-review information over the phone and was told we would receive notice in 2-3 hours. Call placed on 01/28, was told they hadn'theard back from [place] and they would call back today with the result. Fax received on 01/29/15 with approval. A total of 4 hours on the phone was spent on this prior authorization. Health [facility] decision: Approved Quantity approved: #60 for 12 months. Authorization number: [id number] Start date: 01/28/15 End date: 01/28/16 Patient notified? Yes Pharmacy notified? Yes documented in this encounter Plan of Treatment Upcoming Encounters Date Type Department Care Team (Late st Contact Info) Description 10/07/2024 11:30 AM EST Office Visit Dermatology at [place] [address] [place] [address] Jo Ordaz MD [facility] [place] [address] 12/13/2024 11:30 AM EST [place] [address] 12/13/2024 1:00 PM EST [place] [address] Kiet Pardo MD [facility] [place] [address] documented as of this encounter Visit Diagnoses Not on filedocumented in this encounter Care Teams Dice Spotter Relationship Specialty Start Date End Date Yaritza Pierre MD [address] [place] [address] PCP - General 03/27/12 11/27/18 documented as of this encounter
--- OUTSIDE RECORDS SUMMARY | 2024-09-14 13:12 | XMS_ITS | Encounter Summary ---
Author Organization [facility] [place] [address] Care Team Providers Care Help Desk Engineer Name Role Phone Yaritza Pierre MD Primary Care Provider [phone] Encounter Details Date Type Department Care Team (Late st Contact Info) Description 08/28/2014 10:00 AM EDT [place] [address] Yu Mcdonough [facility] [place] [address] Scleroderma (Primary Dx); Cellulitis Discharge Disposition: Home Social History Tobacco Use [...] Progress Notes * Yu Mcdonough DO - 08/28/2014 10:17 AM EDT PROBLEM LIST: 1. Diffuse systemic sclerosis. (A) Initially diagnosed [place] [address] Placido Lora at [facility] in [place]. Then followed by Dr. Peyton Hinton in [facility] in [place] in 04/2010. . Echo and PFTs 12/09/11 both normal. (B) Treatment in the past has included intermittent penicillamine and methotrexate, however, she has been off immunosuppressive therapy since approximately 2005. (C) Hospitalization in 03/2010 in [place] with scleroderma hypertensive renal crisis, on dialysis for two months ending in mid 06/2010. (D) One visit with Dr. Ten Gonzalez in [place], [place] in late 2009. 2. Chronic kidney disease, stage III, with associated anemia. Currently followed by Dr. Sumit Sawyer in nephrology. 3. Raynaud's symptoms. 4. GERD. HPI: The patient returns for follow up of systemic sclerosis. Last seen in March. 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 Her right 5th fingertip has been swollen and painful for the last 3 months. Despite this she still plays her electric guitar. She wonders about increasing her norvasc for her Raynaud's. She is currently taking 10 mg daily. Her GERD is well-controlled. She is seeing GI here in October b/ if a change in her stools. They are ribbon-like. No blood. She did have a colonoscopy last year at [facility] and the report is normal. Her breathing is stable. Skin is stable. Physical exam: Gen: Patient is awake, alert and oriented x 3, in no distress, I met her SO today for the 1st time Skin: warm and dry, tight skin around her mouth with furrowing of the skin, the rest of her face and forehead are involved. I think her abdominal skin is thickened, chest wall is normal, thickened shiny skin from her fingertips up to her mcps, thick skin on the dorsum of her hands up to her mid forearms. The fingertip of the right 5th digit is swollen, slightly red and has a focus of whitish/green material under the skin. Lymph: no cervical or submandibular adenopathy Thyroid: no nodules or thyromegaly Mouth: slightly dry mucous membranes, no oral ulcers Eyes: normal sclerae Joints: + sclerodactyly, flexion contractures of all of her fingers, she can not make a complete fist, no synovitis, all of her other joints are normal. Assessment/Plan: 1. 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 Sawyer 2. cellulitis I will treat her cellulitis with Keflex. If this does not work, I will refer her to wound clinic. Seeing GI in October for change in stools, no blood MRI today for her desmoid tumor Increase norvasc slowly to to 12.5mg , then 15mg , then 20 mg. We discussed that at higher doses there is a good chance she will develop LE edema. We could try sildenafil again. She tried it in the past and did not feel like it helped. Check labs today. RTC in 6 months. Patient consented for participation in study Autoimmune Disease pathogenesis and Treatment via [facility] [employer] With the help of Dr. Jiang, the left forearm and left low back were prepped in sterile fashion. 1%lidocaine was used to anaesthetize the skin and two 4 mm punch biopsies were performed of the left forearm and two 4 mm punch biopsies were performed on the left low back. The patient tolerated the procedure well. Aftercare was discussed with the patient and she was encouraged to call with questions or concerns. documented in this encounter Plan of Treatment Upcoming Encounters Date Type Department Care Team (Late st Contact Info) Description 10/07/2024 11:30 AM EST Office Visit Dermatology at [place] [address] [place] [address] Jo Ordaz MD [facility] [place] [address] 12/13/2024 11:30 AM EST [place] [phone] 12/13/2024 1:00 PM EST Office [place] [phone] Kiet Pardo MD [facility] [place] [address] Scheduled Orders Name Type Priority Associated Diagnoses Orde r Schedule Miscellaneous Lab request Lab Routine Scleroderma Expected: 08/28/2014, Expires: 08/28/2015 documented as of this encounter Procedures Procedure Name Priority Date/Time Associated Diagnosis Comments HEMOGRAM Routine 08/28/2014 11:23 AM EDT Scleroderma DIFFERENTIAL, AUTOMATED Routine 08/28/2014 11:23 AM EDT Scleroderma CBC (WITH DIFF) Routine 08/28/2014 11:23 AM EDT Scleroderma COMPREHENSIVE METABOLIC PANEL Routine 08/28/2014 11:23 AM EDT Scleroderma documented in this encounter Results * (ABNORMAL) Differential, Automated (08/28/2014 11:23 AM EDT) Neutrophil % 74.8 % CERNER MILLENNIUM Neutrophil Absolute 7.40(H) 1.50 - 6.30 x10(3)/mc L CERNER MILLENNIUM Lymph % 16.7 % CERNER MILLENNIUM Lymphocytes Abs 1.6 1.0 - 3.6 x10(3)/mc L CERNER MILLENNIUM Monocyte % 5.7 % CERNER MILLENNIUM Monocyte Abs 0.6 0.2 - 1.0 x10(3)/mc L CERNER MILLENNIUM Eos % 2.4 % CERNER MILLENNIUM Eosinophils Abs 0.2 0.0 - 0.5 x10(3)/mc L CERNER MILLENNIUM Basophil % 0.3 % CERNER MILLENNIUM Baso Absolute 0.0 0.0 - 0.2 x10(3)/mc L CERNER MILLENNIUM Immature Gran % 0.10 % CERN ER MILLENNIUM Comment: Immature granulocytes(IG's)percentage and absolute count will include metamyelocytes, myelocytes, and promyelocytes. Blood smears from CBCs yielding IG's will be scanned manually for concordance. If this scan disagrees with the automated IG or if promyelocytes are noted, a manual differential will be performed. Immature Gran Absolute 0.01 0.00 - 0.05 x10(3)/mc L CERNER MILLENNIUM Blood specimen (specimen) 08/28/2014 11:23 AM EDT 08/28/2014 11:27 AM EDT Narrative Resulting Agency Comment Spec In Lab Yu Mcdonough DO HEMATOLOGY ORDER NOE Performing Organization Address City/[facility]/ZIP Co de Phone Number CERNER MELISSAENNIUM * (ABNORMAL) Hemogram (08/28/2014 11:23 AM EDT) White Blood Cell 9.9 4.0 - 10.0 x10(3)/mc L CERNER MILLENNIUM Red Blood Cell 4.43 3.93 - 5.22 x10(6)/mc L CERNER MILLENNIUM Hemoglobin 14.1 11.2 - 15.7 gm/dL CERNER MILLENNIUM Hematocrit 42.6 34.0 - 45.0 % CERNER MILLENNIUM Mean Cell Volume 96.2(H) 79.0 - 94.0 fL CERNER MILLENNIUM Mean Cell Hemoglobin 31.8 26.6 - 32.2 pg CERNER MILLENNIUM Mean Cell Hemoglobin Concentration 33.1 32.0 - 36.5 gm/dL CERNER MILLENNIUM Platelet 363 145 - 370 x10(3)/mc L CERNER MILLENNIUM RDW Standard Deviation 47.5(H) 35.0 - 46.0 fL CERNER MILLENNIUM RDW coefficient of variation 13.6 10.9 - 14.4 % CERNER MILLENNIUM Mean Platelet Volume 10.5 9.0 - 12.0 fL CERNER MILLENNIUM Blood specimen (specimen) 08/28/2014 11:23 AM EDT 08/28/2014 11:27 AM EDT Narrative Resulting Agency Comment Spec In Lab Yu Mcdonough DO HEMATOLOGY ORDER NOE CERDONNIE TORRESENNIUM * (ABNORMAL) Comprehensive metabolic panel (non-fasting) (08/28/2014 11:23 AM EDT) Glucose 89 60 - 199 mg/dL CERNER MILLENNIUM Comment:Diabetes: >=200 mg/d L plus symptoms Blood Urea Nitrogen 22(H) 8 - 18 mg/dL CERNER MILLENNIUM Creatinine 1.42(H) 0.70 - 1.20 mg/dL CERNER MILLENNIUM Comment: Please note that the pediatric reference intervals supplied above were not validated at [facility]. Results from pediatric patients should be interpreted in conjunction to the patient's age, height and muscle mass. Sodium 137 135 - 145 mmol/L CERNER MILLENNIUM Potassium 5.0 3.5 - 5.0 mmol/L CERNER MILLENNIUM Comment: Please note: ??Patients with WBC >100,000 may have falsely elevated Potassium levels. ??For accurate Potassium quantification in these patients send serum separator tube (gold top) for subsequent determinations. ??Contact the Clinical Chemistry Laboratory if there are any questions. Chloride 102 98 - 107 mmol/L CERNER MILLENNIUM Carbon Dioxide 25 22 - 31 mmol/L CERNER MILLENNIUM Anion Gap 10 5 - 15 mmol/L CERNER MILLENNIUM Calcium 9.2 8.5 - 10.5 mg/dL CERNER MILLENNIUM Protein, Total 7.2 6.4 - 8.3 gm/dL CERNER MILLENNIUM Albumin 4.1 3.2 - 5.2 gm/dL CERNER MILLENNIUM Aspartate Aminotransferase 26 0 - 30 unit/L CERNER MILLENNIUM Alanine Aminotransferase 36(H) 0 - 30 unit/L CERNER MILLENNIUM Alkaline Phosphatase 79 40 - 104 unit/L CERNER MILLENNIUM Bilirubin, Total 0.2 0.2 - 1.3 mg/dL CERNER MILLENNIUM Bilirubin, Direct 0.1 0.0 - 0.3 mg/dL CERNER MILLENNIUM Est Glomerular Filtration Rate 39(L) >=60 CERNER MILLENNIUM Comment: This estimated GFR [...] the following links into your internet browser. [email or web address] [email or web address] Blood specimen (specimen) 08/28/2014 11:23 AM EDT 08/28/2014 11:27 AM EDT Narrative Resulting Agency Comment Spec In Lab Yu Mcdonough DO CHEMISTRY ORDERA BLES [facility] documented in this encounter Visit Diagnoses Diagnosis Scleroderma- Primary Systemic sclerosis Cellulitis Cellulitis and abscess of unspecified site documented in this encounter Care Teams Help Desk Engineer Relationship Specialty Start Date End Date Yaritza Pierre MD [address] [place] [id number] PCP - General 03/27/12 11/27/18 documented as of this encounter
--- OUTSIDE RECORDS SUMMARY | 2024-09-14 13:12 | XMS_ITS | Encounter Summary ---
Author Organization [facility] Address [facility] [place] [address] Care Team Providers Care Petal Shaper Hand Name Role Phone Yaritza Pierre MD Primary Care Provider [phone] Encounter Details Date Type Department Care Team (Latest Contact Info) Description 11/03/2014 11:33 AM EST - 11/03/2014 11:59 PM [facility] Hospital Encounter XRay at [address] [place] [address] Altered bowel habits Social History Tobacco Use [...] Capsule Take 100 mg by mouth daily. 02/17/2015 bisacodyl (DULCOLAX) [address] 1 [...] 2 05/21/2013 01/09/2020 esomeprazole (NEXIUM) 40 mg capsuleIndications: CKD (chronic kidney disease) stage 3, GFR [...] AM EST Office Visit Dermatology at [address] [phone] Jo Ordaz MD [facility] [place] [address] 12/13/2024 11:30 AM EST Appointment [place] [phone] 12/13/2024 1:00 PM EST Office [place] [address] Kiet Pardo MD [facility] [address] documented as of this encounter Procedures Procedure Name Priority Date/Time Associated Diagnosis Comments XR ABDOMEN FLAT AND UPRIGHT Routine 11/03/2014 11:46 AM EST Altered bowel habits documented in this encounter Results * XR abdomen flat and upright (11/03/2014 [...] system documented in this encounter Care Teams Petal Shaper Hand Relationship Specialty Start Date End Date Yaritza Pierre MD [address] [place] [id number] PCP - General 03/27/12 11/27/18 documented as of this encounter
--- OUTSIDE RECORDS SUMMARY | 2024-09-14 13:12 | XMS_ITS | Encounter Summary ---
[place] [address] Care Team Providers Care Credit Control Administrator Name Role Phone Yaritza Pierre MD Primary Care Provider [phone] Reason for Visit * Reason Onset Date Comments Prior Authorization 12/31/2014 Encounter Details Date Type Department Care Team (Late st Contact Info) Description 12/31/2014 Telephone [place] [phone] Wendy Albarado RNboarding machine operator Social History Tobacco Use Types Packs/Day Years [...] Telephone Encounter - Wendy Albarado RN - 01/12/2015 8:18 AM EST Denial for PA for Nexium 40mg twice a day was received. Called [facility]. Spoke with Angie. New information provided (systemic scleroderma, systemic sclerosis from scleroderma, heartburn, regurgitation, acid taste prior to initiating nexium) A. Symptoms of GERD are under control with Nexium 40mg twice a day. P. Await re-review decision * Telephone Encounter - Wendy Albarado RN - 12/31/2014 12:22 PM EST O. Called at the direction of [facility] pharmacy for prior authorization for patient's Nexium 40mg twice a day. They will fax a form to me for the prior authorization. [place] Medicaid has another third democrat doing the prior authorizations at this time. [place] Medicaid PA number is [id number] Patient is on nexium after failing both ranitidine and omeprazole in 2010 (see May 18, 2011 notefrom CKD clinic) PA form faxed to [employer] [facility]. Await decision. documented in this encounter Plan of Treatment Upcoming Encounters Date Type Department Care Team (Late st Contact Info) Description 10/07/2024 11:30 AM EST Office Visit Dermatology at [address] [address] Jo Ordaz MD [facility] [place] [address] 12/13/2024 11:30 AM EST Appointment [place] [phone] 12/13/2024 1:00 PM EST Office [place] [phone] Kiet Pardo MD [facility] [place] [address] documented as of this encounter Visit Diagnoses Not on filedocumented in this encounter Care Teams Credit Control Administrator Relationship Specialty Start Date End Date Yaritza Pierre MD [address] [place] [address] [phone] PCP - General 03/27/12 11/27/18 documented as of this encounter
--- OUTSIDE RECORDS SUMMARY | 2024-09-14 13:12 | XMS_ITS | Encounter Summary ---
Author Organization [facility] Address [facility] [place] [address] Care Team Providers Care Proof Carrier Name Role Phone Yaritza Pierre MD Primary Care Provider [phone] Encounter Details Date Type Department Care Team (Late st Contact Info) Description 02/17/2015 12:20 PM EDT - 02/17/2015 11:59 PM EDT Hospital [place] [address] Breanna Ordoñez MD [facility] [place] [address] Desmoid Discharge Disposition: Home Social History Tobacco [...] 11:30 AM EST Office Visit Dermatology at [facility] [address] [place] [address] Jo Ordaz MD [facility] [place] [address] 12/13/2024 11:30 AM EST Appointment [place] [phone] 12/13/2024 1:00 PM EST Office Visit Rheumatology at [facility] [place] [address] Kiet Pardo MD [facility] [place] [address] documented as of this encounter Procedures Procedure Name Priority Date/Time Associated Diagnosis Comments CREATININE STAT 02/17/2015 12:32 PM EDT Desmoid documented in this encounter Results * (ABNORMAL) Creatinine (02/17/2015 12:32 PM EDT) Creatinine 1.38(H) 0.70 - 1.20 mg/dL CERDONNIE MILLENNIUM Comment: Please note that the pediatric reference intervals supplied above were not validated at [facility]. Results from pediatric patients should be interpreted in conjunction to the patient's age, height and muscle mass. Est Glomerular Filtration Rate 40(L) >=60 CERDONNIE MILLENNIUM Comment: This estimated GFR (eGFR) value [...] the following links into your internet browser. http://Affinity.is/DHnkdep http://Affinity.is/DHMCnkf Blood specimen (specimen) 02/17/2015 12:32 PM EDT 02/17/2015 12:41 PM EDT Narrative Resulting Agency Comment Spec In Lab Breanna Barreto MD CHEMISTRY ORDERA BLES [facility] [place] documented in this encounter Visit Diagnoses Diagnosis Desmoid Neoplasm of uncertain behavior of connective and other soft tissue documented in this encounter Care Teams Proof Carrier Relationship Specialty Start Date End Date Yaritza Pierre MD [address] [place] [phone] PCP - General 03/27/12 11/27/18 documented as of this encounter
--- OUTSIDE RECORDS SUMMARY | 2024-09-14 13:12 | XMS_ITS | Encounter Summary ---
[place] [address] Care Team Providers Care Social Sciences Professor Name Role Phone Yaritza Pierre MD Primary Care Provider [phone] Reason for Visit * Reason Onset Date Comments Referral 08/27/2014 Encounter Details Date Type Department Care Team (Late st Contact Info) Description 08/27/2014 Telephone [place] [phone] Yu Chandler Referral Social History Tobacco Use Types Packs/Day Years [...] encounter Miscellaneous Notes * Telephone Encounter - Celina Wallace - 09/18/2014 4:10 PM EDT none documented in this encounter Plan of Treatment Upcoming Encounters Date Type Department Care Team (Late st Contact Info) Description 10/07/2024 11:30 AM EST Office Visit Dermatology at [facility] [address] [place] [address] Jo Ordaz MD [facility] [place] [address] 12/13/2024 11:30 AM EST Appointment [place] [address] 12/13/2024 1:00 PM EST Office [place] [phone] Kiet Pardo MD [facility] [place] [address] documented as of this encounter Visit Diagnoses Not on filedocumented in this encounter Care Teams Social Sciences Professor Relationship Specialty Start Date End Date Yaritza Pierre MD [address] [place] [address] PCP - General 03/27/12 11/27/18 documented as of this encounter
--- OUTSIDE RECORDS SUMMARY | 2024-09-14 13:12 | XMS_ITS | Encounter Summary ---
Author Organization [facility] [place] [address] Care Team Providers Care Forest Fire Prevention Manager Name Role Phone Yaritza Pierre MD Primary Care Provider [phone] Reason for Visit * Reason Onset Date Comments Medication Refill 01/15/2015 Other Encounter Details Date Type Department Care Team (Late st Contact Info) Description 01/15/2015 Refill [place] [address] Gme Richey, RN Social History Tobacco Use Types [...] Dermatology at [facility] [address] [address] Jo Ordaz MD [facility] [place] [address] 12/13/2024 11:30 AM EST Appointment [place] [phone] 12/13/2024 1:00 PM EST Office [place] [phone] Kiet Pardo MD [facility] [place] [address] documented as of this encounter Visit Diagnoses Not on filedocumented in this encounter Care Teams Forest Fire Prevention Manager Relationship Specialty Start Date End Date Yaritza Pierre MD [address] [place] [phone] PCP - General 03/27/12 11/27/18 documented as of this encounter
--- OUTSIDE RECORDS SUMMARY | 2024-09-14 13:12 | XMS_ITS | Encounter Summary ---
Author Organization [facility] Address [facility] [address] [place] [address] Care Team Providers Care Ruling Machine Set Up Operator Name Role Phone Yaritza Pierre MD Primary Care Provider [phone] Encounter Details Date Type Department Care Team (Late st Contact Info) Description 01/28/2015 Orders [place] [address] Breanna Ordoñez MD [facility] [place] [place] [address] Desmoid Social History Tobacco Use Types Packs/Day [...] Dermatology at [facility] [address] [place] [address] Jo Ordaz MD [facility] [place] [address] 12/13/2024 11:30 AM EST Appointment [place] [address] 12/13/2024 1:00 PM EST Office [place] [address] Kiet Pardo MD [facility] [address] [place] [phone] documented as of this encounter Results * (ABNORMAL) Creatinine (02/17/2015 12:32 PM EDT) Creatinine 1.38(H) 0.70 - 1.20 mg/dL [facility] Comment: Please note that the pediatric reference intervals supplied above were not validated at [facility]. Results from pediatric patients should be interpreted in conjunction to the patient's age, height and muscle mass. Est Glomerular Filtration Rate 40(L) >=60 [facility] Comment: This estimated GFR (eGFR) value [...] the following links into your internet browser. [email or web address] Blood specimen (specimen) 02/17/2015 12:32 PM EDT 02/17/2015 12:41 PM EDT Narrative Resulting Agency Comment Spec In Lab Breanna Barreto MD CHEMISTRY ORDERA BLES [facility] documented in this encounter Visit Diagnoses Diagnosis Desmoid Neoplasm of uncertain behavior of connective and other soft tissue documented in this encounter Care Teams Ruling Machine Set Up Operator Relationship Specialty Start Date End Date Yaritza Pierre MD [address] [place] [id number] PCP - General 03/27/12 11/27/18 documented as of this encounter
--- OUTSIDE RECORDS SUMMARY | 2024-09-14 13:12 | XMS_ITS | Encounter Summary ---
Author Organization [facility] Address [facility] [place] [address] Care Team Providers Care Aoc Airspace Control Officer Name Role Phone Niesha Gonzalez MD Primary Care Provider [phone] Encounter Details Date Type Department Care Team (Late st Contact Info) Description 08/28/2014 11:35 AM EDT - 08/28/2014 11:59 PM EDT Hospital [place] [id number] CLINIC, Breanna Nolen MD [facility] [address] Desmoid Discharge Disposition: Home Social History Tobacco [...] - - Weight 63.5 kg (140 lb) 08/28/2014 1:12 PM EDT Height - - Body Mass Index 21.93 07/25/2014 2:18 PM EDT documented in this encounter Medications at Time of Discharge Medication Sig Dispensed Refills Start Date End Date cholecalciferol, Vitamin D3, 25 mcg (1,000 unit) Capsule Take 1 tablet by mouth daily. nitroGLYcerin (NITROGLYN) 2 % ointment Place 0.5 inches onto the skin every 6 hours. cephALEXin (KEFLEX) 500 mg Capsule Take 1 capsule by mouth 4 times daily. 40 capsule 0 08/28/2014 10/31/2014 amLODIPine (NORVASC) 5 mg Tablet Take 1 tablet by mouth daily. 30 tablet 11 08/28/2014 09/22/2014 amLODIPine (NORVASC) 10 mg tablet Take 1 tablet by mouth daily. 90 tablet 3 03/26/2014 10/31/2014 fosinopril (MONOPRIL) 40 mg tabletIndications:Scl eroderma,CKD (chronic [...] of this encounter Progress Notes * Randa Almeida, RN - 08/27/2014 2:34 PM EDT VIR MRI PRE-SEDATION ASSESSMENT NOTE NAME: Amber Wells AGE: 54 y.o. : 1960 Female [phone] (home) Telephone Information: PCP SOFTWARE PRODUCT MANAGER NIESHA GONZALEZ MD None No Known Allergies Date/Time of call: August 27, 2014/2:36 PM/ PREVIOUS MRI SCAN? none HEIGHT: 5' 7 WEIGHT: 140 lbs SCHEDULED SCAN: MRI with PO sedation SUBJECTIVE: I am scared. ASSESSMENT: Patient appropriate for po sedation PLAN: Ativan 1-2 mg PO PRIOR SCAN DATE/S SEDATION TYPE SUCCESSFUL NOne 08/28/14MRI with PO sedation Ativan 1 mg x 2 po yes PT WILL ARRIVE 1 HR. BEFORE SCHEDULED SCAN AND HAVE A SUPERVISOR ANODIZING AVAILABLE. PT STATED TO CLOCK AND WATCH HANDS MOUNTER THAT THE SEDATION WAS EFFECTIVE FOR SCAN: [id number]___[id number]__[id number] COMMENTS: This patient has been informed that they require a pile driver operator barge mounted to drive them home after this procedure. In the absence of a pile driver operator barge mounted, IR will not be able to perform this procedure and will need to reschedule. Pt verbalized understanding of these instructions during the pre-procedure education via phone. documented in this encounter Plan of Treatment Upcoming Encounters Date Type Department Care Team (Late st Contact Info) Description 10/07/2024 11:30 AM EST Office Visit Dermatology at [address] [address] Jo Ordaz MD [facility] [place] [address] 12/13/2024 11:30 AM EST Appointment [place] [address] 12/13/2024 1:00 PM EST Office Visit [place] [phone] Kiet Pardo MD [facility] [place] [address] documented as of this encounter Procedures Procedure Name Priority Date/Time Associated Diagnosis Comments MRI UPPER EXTREMITY NON JOINT WITH/WO CONTRAST Routine 08/28/2014 1:54 PM EDT documented in this encounter Results * MRI upper extremity non joint with/WO contrast (08/28/2014 1:54 PM EDT) Anatomical Region Laterality Modality Shoulder, Arm, Elbow, Forearm, Wrist, Hand Magnetic Resonance 08/28/2014 1:54 PM EDT Narrative 08/28/2014 3:04 PM EDT Examination MR UPPER EXT WITH/WITHOUT gd+/LEFT Clinical History 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 Evaluate extent of disease versus postoperative changes/seroma. Comparison None available. Technique Pre and post-contrast MRI of the left upper thorax was performed. Contrast: ??6.3 mL IV Gadavist Findings Within the subcutaneous fat overlying the lower trapezius muscle and dorsal paraspinal muscles in the upper left posterior thorax at approximately the T5 level there is a T2 hyperintense peripherally enhancing collection of fluid measuring 29 x 9 x 19 mm in size on series 7-30 series 9-57 and series 4-19. ?? There is no discrete nodular soft tissue enhancement at this site. ??There mild mild mass effect on the is underlying trapezius muscle which is slightly indented by the collection. ??No intramuscular edema is identified however. ??Few small morphologically normal appearing left axillary lymph nodes are detected, none pathologically enlarged by size criteria. ??No suspicious marrow signal abnormality or marrow replacing lesion. ??No marrow edema is detected. ??No focal muscular atrophy is seen. ??There is a approximately 14 mm in length ovoid linear hypo intense structure located along the margin of the pectoralis major tendon adjacent to its proximal humeral insertion as best seen on series 8-5 and series 9-6 without enhancement postcontrast, not entirely specific though favored to represent either a focus of soft tissue calcification or hemosiderin/old blood products from a remote soft tissue or tendinous injury at this site. Impression ? 1. Approximately 29 x 9 x 19 mm loculated subcutaneous collection of fluid overlying the left upper thoracic paraspinal muscles and trapezius compatible with a postoperative fluid collection which may be sterile or infected. ? 2. No nodular areas of masslike enhancement to suggest specific evidence of residual or recurrent tumor. ? 3. Linear area of hypo intense signal adjacent to the pectoralis major tendon attachment adjacent to the humerus favored to represent either soft tissue calcification or alternatively a hemosiderin/old blood products from a remote soft tissue injury. 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 Evaluate extent of disease versus postoperativechanges/seroma. Comparison None available. Technique Pre and post-contrast MRI of the left upper thorax was performed. Contrast: 6.3 mL IV Gadavist Findings Within the subcutaneous fat overlying the lower trapezius muscle anddorsal paraspinal muscles in the upper left posterior thorax at approximately theT5 level there is a T2 hyperintense peripherally enhancing collection offluid measuring 29 x 9 x 19 mm in size on series 7-30 series 9-57 and series4-19. There is no discrete nodular soft tissue enhancement at this site. Theremild mild mass effect on the is underlying trapezius muscle which is slightly indented by the collection. No intramuscular edema is identified however.Few small morphologically normal appearing left axillary lymph nodes aredetected, none pathologically enlarged by size criteria. No suspicious marrowsignal abnormality or marrow replacing lesion. No marrow edema is detected. Nofocal muscular atrophy is seen. There is a approximately 14 mm in length ovoid linear hypo intense structure located along the margin of the pectoralismajor tendon adjacent to its proximal humeral insertion as best seen on series8-5 and series 9-6 without enhancement postcontrast, not entirely specificthough favored to represent either a focus of soft tissue calcification or hemosiderin/old blood products from a remote soft tissue or tendinousinjury at this site. Impression 1. Approximately 29 x 9 x 19 mm loculated subcutaneous collection offluid overlying the left upper thoracic paraspinal muscles and trapeziuscompatible with a postoperative fluid collection which may be sterile or infected. 2. No nodular areas of masslike enhancement to suggest specificevidence of residual or recurrent tumor. 3. Linear area of hypo intense signal adjacent to the pectoralismajor tendon attachment adjacent to the humerus favored to represent either soft tissue calcification or alternatively a hemosiderin/old blood productsfrom a remote soft tissue injury. 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 63.5 kg), Intravenous, ONCE PRN, 1 dose, Starting on Nancy 08/28/14 at 1313, Until Nancy 08/28/14 at 1327, Per Protocol, Routine Given 08/28/2014 1:27 PM EDT 6.3 mLs LORazepam (ATIVAN) tablet 1-2 mg 1-2 mg, Oral, ONCE, 1 dose, On Nancy 08/28/14 at 0845, Angio/IR (Day of Procedure), Routine Given 08/28/2014 12:20 PM EDT 2 mg documented in this encounter Care Teams Aoc Airspace Control Officer Relationship Specialty Start Date End Date Niesha Gonzalez MD [address] [place] [address] PCP - General 03/27/12 11/27/18 documented as of this encounter
--- OUTSIDE RECORDS SUMMARY | 2024-09-14 13:12 | XMS_ITS | Encounter Summary ---
Author Organization [facility] [place] [address] Care Team Providers Care Fire Sprinkler Service Technician Name Role Phone Yaritza Pierre MD Primary Care Provider [phone] Encounter Details Date Type Department Care Team (Late st Contact Info) Description 01/12/2015 Orders [place] [address] Yu Mcdonough [facility] [place] [address] Social History Tobacco Use Types Packs/Day Years [...] [facility] [address] [place] [address] Jo Ordaz MD [facility] [place] [address] 12/13/2024 11:30 AM EST Appointment [place] [phone] 12/13/2024 1:00 PM EST Office [place] [phone] Kiet Pardo MD [facility] [place] [address] documented as of this encounter Visit Diagnoses Not on filedocumented in this encounter Care Teams Fire Sprinkler Service Technician Relationship Specialty Start Date End Date Yaritza Pierre MD [address] [place] [address] PCP - General 03/27/12 11/27/18 documented as of this encounter
--- OUTSIDE RECORDS SUMMARY | 2024-09-14 13:13 | XMS_ITS | Encounter Summary ---
Author Organization [facility] [place] [address] Care Team Providers Care Streetcar Repairer Name Role Phone Yaritza Pierre MD Primary Care Provider [phone] Reason for Referral * Occupational Therapy (Routine) - Closed Specialty Diagnoses / Procedures Referred By Wander hernandez Referred To Contact Occupational Therapy Diagnoses Tendonitis Yu Mcdonough [facility] [place] [address] Referral ID Status Reason Start Date Expiration Date V isits Requested Visits Authorized [id number] Closed Evaluate and Treat 03/26/2014 09/22/2014 1 1 Encounter Details Date Type Department Care Team (Late st Contact Info) Description 03/26/2014 9:30 AM EDT Follow-[place] [address] Yu Mcdonough [facility] [place] [address] Tendonitis (Primary Dx); Systemic sclerosis Discharge Disposition: Home Social History Tobacco Use [...] Sign Reading Time Taken Comments Blood Pressure 128/72 03/26/2014 9:30 AM EDT Pulse 79 03/26/2014 9:30 AM EDT Temperature 36.6 ??C (97.8 ??F) 03/26/2014 9:30 AM ED T Respiratory Rate - - Oxygen Saturation 100% 03/26/2014 9:30 AM EDT Inhaled Oxygen Concentration - - Weight 66.3 kg (146 lb 3.2 oz) 03/26/2014 9:30 A M EDT Height 170.2 cm (5' 7) 03/26/2014 9:30 AM EDT Body Mass Index 22.9 03/26/2014 9:30 AM EDT documented in this encounter Progress Notes * Yu Mcdonough, - 03/26/2014 9:41 AM EDT PROBLEM LIST: 1. Diffuse systemic sclerosis. (A) Initially diagnosed [place] [address] Placido Lora at [facility] in [place]. Then followed by Dr. Peyton Hinton in [facility] in [place] in 04/2010. . Echo and PFTs 12/09/11 both normal. (B) Treatment in the past has included intermittent penicillamine and methotrexate, however, she has been off immunosuppressive therapy since approximately 2005. (C) Hospitalization in 03/2010 in [place] with scleroderma hypertensive renal crisis, on dialysis for two months ending in mid 06/2010. (D) One visit with Dr. Ten Gonzalez in [place], [place] in late 2009. 2. Chronic kidney disease, stage III, with associated anemia. Currently followed by Dr. Sumit Sawyer in nephrology. 3. Raynaud's symptoms. 4. GERD. HPI: The patient returns for follow up of systemic sclerosis. Last seen over 1 year ago. She called asking to be seen today. She was painting her bathroom and quickly developed moderate-severe pain in herright hand in the thenar eminence and radiating into the right forearm. She tried resting her rightarm and overused her left and now the left is hurting too. She has not seen any swelling. Her GERD is well-controlled as long as she takes her medication. Her Raynaud's was worse this winter. She has never taken sildenafil. She has a lesion on her left forehead that is tender. She has noticed slowed gastric motility and difficulty having a bowel movement. She does not feel like she completely empties her bowel and it takes her longer to have a bowel movement. There is no blood, abdominal cramping or weight loss. Her appetite is good. Physical exam: Gen: Patient is awake, alert [...] her hands up to her mid forearms. Lymph: no cervical or submandibular adenopathy Thyroid: [...] [address] Sawyer 2. Bilateral hand pain, overuse syndrome 3. Skin lesion Will try prednisone 10 mg daily x 7 days for her hand symptoms and I am referring her for OT at [facility]. Add Fiber 1 to diet Dermatology - she has one. To look at forehead lesion. Consider adding sildenafil in the fall when I see her next. documented in this encounter Plan of Treatment Upcoming Encounters Date Type Department Care Team (Late st Contact Info) Description 10/07/2024 11:30 AM EST Office Visit Dermatology at [facility] [address] [place] [phone] Jo Ordaz MD [facility] [place] [address] 12/13/2024 11:30 AM EST Appointment [place] [address] 12/13/2024 1:00 PM EST Office [place] [phone] Kiet Pardo MD [facility] [place] [address] Scheduled Referrals Name Type Priority Associated Diagnoses Order Schedule Referral to Occupational Therapy Outpatient Referral Routine Tendonitis Ordered: 03/26/2014 documented as of this encounter Visit Diagnoses Diagnosis Tendonitis- Primary Enthesopathy of unspecified site Systemic sclerosis documented in this encounter Care Teams Streetcar Repairer Relationship Specialty Start Date End Date Yaritza Pierre MD [address] [place] [address] PCP - General 03/27/12 11/27/18 documented as of this encounter
--- OUTSIDE RECORDS SUMMARY | 2024-09-14 13:13 | XMS_ITS | Encounter Summary ---
Author Organization [facility] [place] [address] Care Team Providers Care Gi Tech Name Role Phone Yaritza Pierre MD Primary Care Provider [phone] Reason for Visit * Reason Onset Date Comments Medication Refill 12/06/2012 Encounter Details Date Type Department Care Team (Late st Contact Info) Description 12/06/2012 Refill Nephrology [place] [address] Sumit Sawyer MD [facility] [place] [address] CKD (chronic kidney disease) stage 3, GFR [...] at [facility] [address] [place] [address] Jo Ordaz MD [facility] [place] [address] 12/13/2024 11:30 AM EST Appointment [place] [phone] 12/13/2024 1:00 PM EST Office [place] [phone] Kiet Pardo MD [facility] [place] [address] documented as of this encounter Visit Diagnoses Diagnosis CKD (chronic kidney disease) stage 3, GFR 30-59 ml/min Chronic kidney disease, Stage III (moderate) Scleroderma Systemic sclerosis CKD (chronic kidney disease) Chronic kidney disease, unspecified documented in this encounter Care Teams Gi Tech Relationship Specialty Start Date End Date Yaritza Pierre MD [address] [place] [address] PCP - General 03/27/12 11/27/18 documented as of this encounter
--- OUTSIDE RECORDS SUMMARY | 2024-09-14 13:13 | XMS_ITS | Encounter Summary ---
Author Organization [facility] Address [facility] [place] [address] Care Team Providers Care Porcelain Slusher Name Role Phone Yaritza Pierre MD Primary Care Provider [phone] Reason for Visit * Reason Comments Chronic Kidney Disease Encounter Details Date Type Department Care Team (Latest Contact Info) Description 07/10/2013 8:40 AM EDT Office Visit [place] [address] Vasquez Hunter MD [facility] [place] [address] B, Nurse Clinician None CKD (chronic kidney disease) stage 4, GFR 15-29 ml/min (Primary Dx); CKD (chronic kidney disease) stage 3, GFR 30-59 ml/min; Scleroderma; Raynaud's disease Discharge Disposition: Home Social History Tobacco Use [...] Sign Reading Time Taken Comments Blood Pressure 114/76 07/10/2013 8:39 AM EDT Pulse 72 07/10/2013 8:39 AM EDT Temperature - - Respiratory Rate - - Oxygen Saturation - - Inhaled Oxygen Concentration - - Weight 63.8 kg (140 lb 9.6 oz) 07/10/2013 8:39 A M EDT Height 170.2 cm (5' 7) 07/10/2013 8:39 AM EDT Body Mass Index 22.02 07/10/2013 8:39 AM EDT documented in this encounter Patient Instructions * Patient Instructions* Wendy Albarado RN - 07/10/2013 9:00 AM EDT Your kidney function is stable. Results for AMBER DAWSON ( ) as of 07/10/2013 08:59 Ref. Range 07/10/2013 08:03 WBC Latest Range: 4.0-10.0 x10(3)/mcL 8.2 RBC Latest Range: 3.93-5.22 x10(6)/mcL 4.29 Hemoglobin Latest Range: 11.2-15.7 gm/dL 13.2 Hematocrit Latest Range: 34.0-45.0 % 40.5 MCV Latest Range: 79.0-94.0 fL 94.4 (H) MCH Latest Range: 26.6-32.2 pg 30.8 MCHC Latest Range: 32.0-36.5 gm/dL 32.6 RDWSD Latest Range: 35.0-46.0 fL 46.9 (H) RDWCV Latest Range: 10.9-14.4 % 13.7 Platelets Latest Range: 145-370 x10(3)/mcL 353 MPV Latest Range: 9.0-12.0 fL 10.3 Neutr Abs (ANC) Latest Range: 1.50-6.30 x10(3)/mcL 5.81 Neutrophils % Latest Range: 34.0-71.0 % 70.5 Immature Gran % Latest Range: 0.00-0.66 % 0.10 Lymphocytes % Latest Range: 19.0-53.0 % 19.9 Monocytes % Latest Range: 4.0-13.0 % 7.3 Eosinophils % Latest Range: 0.0-7.0 % 1.8 Basophils % Latest Range: 0.0-2.0 % 0.4 Yessica Gran Abs Latest Range: 0.00-0.05 x10(3)/mcL 0.01 Lymphocytes Abs Latest Range: 1.0-3.6 x10(3)/mcL 1.6 Monocyte Abs Latest Range: 0.2-1.0 x10(3)/mcL 0.6 Eosinophils Abs Latest Range: 0.0-0.5 x10(3)/mcL 0.2 Basophils Abs Latest Range: 0.0-0.2 x10(3)/mcL 0.0 Sodium Latest Range: 135-145 mmol/L 139 Potassium Latest Range: 3.5-5.0 mmol/L 4.2 Chloride Latest Range: 98-107 mmol/L 105 CO2 Latest Range: 22-31 mmol/L 24 Anion Gap Latest Range: 5-15 mmol/L 10 BUN Latest Range: 8-18 mg/dL 23 (H) Creatinine Latest Range: 0.70-1.20 mg/dL 1.35 (H) Estimated GFR Latest Range: >=60 41 (L) Glucose Lvl No range found 86 Calcium Latest Range: 8.5-10.5 mg/dL 9.3 Phosphorus Latest Range: 2.5-4.5 mg/dL 2.8 Albumin Latest Range: 3.2-5.2 gm/dL 4.4 The cough at night might be related to reflux. Try raising the head of the bed on blocks to keep the head up and reduce the reflux of acid up youresophagus. This may help the cough When you return in December we will recheck an echocardiogram and try to set you up with dermatology and rheumatology. Please considering filling out the Advanced Directives and bring a copy back with you to be scannedinto your medical record. Recheck the kidney function in 3 months (September) use the requisitions given to you today. documented in this encounter Progress Notes * Vasquez Hunter MD - 07/10/2013 8:37 AM EDT [facility] [address] [place] [address] Reason for Clinic Visit: Systems Review and CKD management. Seen in clinic with: Pallavi Albarado RN, Continuing Help Desk Supervisor (CCM) CKD related to: scleraderma crisis History of Present Illness: routine f/u for scleroderma related ckd and prior renal crises with akirequiring dialysis 2 years ago. She has recurrent problems with fingertip ulcers (middle finger left hand) and Raynaud's. She has an occasional cough with mucus and has cold sx several times per year but has not needed abx. On one occasion this summer, she felt like her lungs were burning but this resolved without specific therapy. She is already on nexium at full dose but does not elevate her head of bed. BP well controlled. Exercises regularly (kayaks and bikes). 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 History obtained by RN Specialist: She was last seen in December in CKD clinic. 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 She felt really good emotionally after that concert. She is kayaking and biking this summer. She has not been able to play her guitar secondary to the ulcer on the finger. It is getting better slowly. She complains of a night time cough and she uses lozenges for that. 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 Last dialysis was in June at [facility] (dialyzed for 2 months). Education: 3-4 gram sodium diet discusssed, low potassium diet discussed Anticipated Renal Replacement Therapy Plan: Was on HD through tunnelled catheter from April 27 to July 14 at [facility] for the last 3 weeks of dialysis. Transplant Evaluation: will trend Creatinine levels to determine if this is necessary Review of Systems: Sign/Symptom Comments Activity level/fatigue: Yes energy is good, physicaly OK emotionally spent Change in sleep patterns: No problem; occasionally feeling of mucus cutting off her airway, so she sleeps with cough drops. Nocturia: None Appetite changes: I'm always hungry Food aversions: No Nausea: None Vomiting: None Bowels: No Diarrhea/Constipation Edema: None today Shortness of breath: None Orthopnea/PND: No PND; 1 pillow Muscle Cramping: No Cold intolerance: Yes all the time Itching: No Bruising/bleeding: No Mental Status Changes: No Recent Home Blood Pressure Control: 125/80in the am. At night 138 systolic Recent Lipid Management: None Additional CCM Comments: How's your health been in the last 4 weeks: Poor Fair Good Very Good Excellent Stiffness in her hands is about the same. Cristine is working well for the pain in her hands. She has dual citizenship in [place] and [place] She is seeing tank assembler at [facility] for the scleroderma management. Hepatitis B Status: Serum Testing Date of Testing Results Hep B sAb/Hep B sAg not tested Vaccination Status: Unknown Fistula Date/Type of Initial Access/Surgeon: Had tunnelled dialysis catheter removed at [facility] in June 2010. No plans for fistula at this time. Kidney function has been stable and slowly improving Advanced Directives: Given forms today and she will complete and return forms. She will ask her sister to be her DPOA but wants to check with her. PMH: Patient Active Problem List Diagnosis Code ??? Anemia in CKD (chronic kidney disease) 285.21 ??? CKD (chronic kidney disease) stage 4, GFR 15-29 ml/min 585.4 ??? GERD (gastroesophageal reflux disease) 530.81 ??? Scleroderma 710.1 ??? Raynaud's disease 443.0 ??? AK (actinic keratosis) 702.0 ??? Solar lentigo 709.09 ??? Multiple nevi 216.9 No Known Allergies Outpatient Prescriptions Marked as Taking for the 07/10/13 encounter (Office Visit) with Eun Hunter MD Medication Status Sig Dispense Refill ??? lidocaine-prilocaine (EMLA) cream Active Apply topically as needed. 30 g 2 ??? amlodipine (NORVASC) 10 mg tablet Active Take 1 tablet by mouth daily. 90 tablet 3 ??? esomeprazole (NEXIUM) 40 mg capsule Active Take 1 capsule by mouth 2 times daily. 180 capsule 3 ??? fosinopril (MONOPRIL) 40 mg tablet Active Take 1 tablet by mouth 2 times daily. 180 tablet 3 ??? Cholecalciferol, Vitamin D3, (VITAMIN D) 1,000 unit Cap Active Take 1 tablet by mouth daily. ??? Acetaminophen 650 mg Tab Active Take 1,300 mg by mouth daily as needed. ??? Vitamin E 200 unit Tab Active Take 400 Int'l Units by mouth daily. ??? nitroGLYcerin (NITROGLYN) 2 % ointment Active Place 0.5 inches onto the skin every 6 hours. Physical Exam: BP 114/76 Pulse 72 Ht 170.2 cm (5' 7) Wt 63.776 kg (140 lb 9.6 oz) BMI 22.02 kg/m2 If exam WNL X Abnormal findings General appearance Looks tanned and fit Head Typical scleroderma facies Eyes radu ENT Op without lesions Neck jvp normal Respiratory clear COR/Vascular rrr without m/r/g or sig P2 increase Abdomen Soft, nt, no bruits Skin Pale smooth, contracted fingers with periungual cracking and cap dropout, no active ulcers butcallouses on finger tips at site of healed ulcers Neuro Normal light touch sensation Asterixis none Extremities No pretib edema. Pulses wrists and ankles palp. Minor changes in toes c/w Raynaud's Other Labs Results for AMBER DAWSON ( ) as of 07/10/2013 14:53 Ref. Range 09/26/2012 09:22 10/09/2012 00:00 01/02/2013 13:05 02/22/2013 20:16 07/10/2013 08:03 WBC Latest Range: 4.0-10.0 x10(3)/mcL 9.1 10.3 (H) 8.2 RBC Latest Range: 3.93-5.22 x10(6)/mcL 4.38 4.48 4.29 Hemoglobin Latest Range: 11.2-15.7 gm/dL 14.0 14.3 13.2 Hematocrit Latest Range: 34.0-45.0 % 42.2 43.6 40.5 MCV Latest Range: 79.0-94.0 fL 96.3 (H) 97.3 (H) 94.4 (H) MCH Latest Range: 26.6-32.2 pg 32.0 31.9 30.8 MCHC Latest Range: 32.0-36.5 gm/dL 33.2 32.8 32.6 RDWSD Latest Range: 35.0-46.0 fL 46.7 (H) 47.3 (H) 46.9 (H) RDWCV Latest Range: 10.9-14.4 % 13.2 13.3 13.7 Platelets Latest Range: 145-370 x10(3)/mcL 349 351 353 MPV Latest Range: 9.0-12.0 fL 10.8 10.7 10.3 Neutr Abs (ANC) Latest Range: 1.50-6.30 x10(3)/mcL 6.69 (H) 7.39 (H) 5.81 Neutrophils % Latest Range: 34.0-71.0 % 73.8 (H) 71.7 (H) 70.5 Immature Gran % Latest Range: 0.00-0.66 % 0.20 0.20 0.10 Lymphocytes % Latest Range: 19.0-53.0 % 17.5 (L) 18.0 (L) 19.9 Monocytes % Latest Range: 4.0-13.0 % 6.3 8.2 7.3 Eosinophils % Latest Range: 0.0-7.0 % 1.8 1.5 1.8 Basophils % Latest Range: 0.0-2.0 % 0.4 0.4 0.4 Yessica Gran Abs Latest Range: 0.00-0.05 x10(3)/mcL 0.02 0.02 0.01 Lymphocytes Abs Latest Range: 1.0-3.6 x10(3)/mcL 1.6 1.8 1.6 Monocyte Abs Latest Range: 0.2-1.0 x10(3)/mcL 0.6 0.8 0.6 Eosinophils Abs Latest Range: 0.0-0.5 x10(3)/mcL 0.2 0.2 0.2 Basophils Abs Latest Range: 0.0-0.2 x10(3)/mcL 0.0 0.0 0.0 Sodium Latest Range: 135-145 mmol/L 136 138 139 Potassium Latest Range: 3.5-5.0 mmol/L 4.6 4.6 4.2 Chloride Latest Range: 98-107 mmol/L 104 104 105 CO2 Latest Range: 22-31 mmol/L 25 23 24 Anion Gap Latest Range: 5-15 mmol/L 7 11 10 BUN Latest Range: 8-18 mg/dL 30 (H) 31 (H) 23 (H) Creatinine Latest Range: 0.70-1.20 mg/dL 1.44 (H) 1.46 (H) 1.35 (H) Estimated GFR Latest Range: >=60 38 (L) 38 (L) 41 (L) Glucose Lvl No range found 88 98 86 Calcium Latest Range: 8.5-10.5 mg/dL 9.4 9.2 9.3 Phosphorus Latest Range: 2.5-4.5 mg/dL 2.7 2.9 2.8 Albumin Latest Range: 3.2-5.2 gm/dL 4.5 4.5 4.4 Vit D, 25-Hydroxy No range found 29 (EXTERNAL/ABN) PTH Latest Range: 15-65 pg/mL 126 (H) 120 (H) 93 (H) Account Adjuster Cytology Final Report No range found ... Problem/Goal/Assessment/Plan: Problem: Chronic Kidney Disease Goal: Reduce rate of progression Education for CKD Stage specific issues Results: Estimated GFR (MDRD): 41 ml/min/1.73m2 CKD Stage G3 A2 - Changes discussed with RN Specialist: Discussed advanced directives today. She will take the forms home and file at a later date. Echocardiogram in December on same day as next CKD visit. Plan: Renal function improving and eGFR now stage 3 if this proves to be a steady state. Cont acei indefinitely Problem: Management of Anemia related to Chronic Kidney Disease (CKD) Goal: Hgb 9-10.5 g/dl Today's Results Hgb - 13.2 Receiving erythropoetic stimulating agent? No Last IV Iron replacement therapy (Venofer), Date : None Changes discussed with RN Specialist: Plan: no need for matthew, hb doing well Problem: Hypertension Goal: Urine alb:cr ratio <30mg/g - 140/90, Urine alb:cr ratio > 30mg/g - 130/80 Sodium intake < 2 Gm per day. Results: BP today - 114/76 Changes discussed with RN Specialist: None Plan: doing well on current rx, no changes. Problem: Proteinuria Goal: Pro:Cr ratio <0.2mg/mg Alb:Cr ratio < 30mg/g Today's results: Pro:Cr ratio 0.4 in 2010 Alb:Cr ratio 130 in 2010 Changes discussed with RN Specialist: Will recheck the urine protein at next visit Plan: due for recheck next visit Problem: Bone Disease Goal: Stage 3 PTH: 35-70 pg/ml Phos 2.7-4.6 Ca 8.5-10.5mg/dl Stage 4 PTH: 70-110 pg/ml Phos 2.7-4.6 Ca 8.5-10.5mg/dl Stage 5 PTH: 150-300 pg/ml Phos 3.5-5.5 Ca 8.5-10.5mg/dl Results: PTH today - 93 (pt not taking calcitriol) Phos today -2.8 (pt not taking binders) Calcium today - 9.3 Changes discussed with RN Specialist: None Plan: recheck next visit along with vit D level and if vit d stores normal and pth not improving will add calcitriol Problem: Nutrition Goal: Albumin > 4.0gm/dl BMI 20-25 kg/m2 Results: Albumin today - 4.4 Changes discussed with RN Specialist: None Plan: cont current diet Problem: Patient does not have Diabetes Goal: HA1C ~ 7.0% Results: Random Glucose - 86 Changes discussed with RN Specialist: Plan: monitor for glucose intolerance Problem: Dyslipidemia Goal: LDL < 100 mg/dl Results: LDL not checked today - Changes discussed with RN Specialist: none Plan: check fasting profile next visit Problem: severe Raynaud's. Stable sx on current rx. Underlying scleroderma. Stable on exam and hx. Will check echo next visit. Summary: Improved cr, excellent bp, severe but stable Raynaud's. No sx to suggest pulm htn or dysphagia at this time. Return to clinic: December with echocardiogram documented in this encounter Plan of Treatment Upcoming Encounters Date Type Department Care Team (Late st Contact Info) Description 10/07/2024 11:30 AM EST Office Visit Dermatology at [facility] [address] [place] [address] Jo Ordaz MD [facility] [place] [address] 12/13/2024 11:30 AM EST Appointment Pulmonology at [facility] [place] [address] 12/13/2024 1:00 PM EST Office Visit Rheumatology at [facility] [place] [address] Kiet Pardo MD [facility] [place] [address] documented as of this encounter Procedures Procedure Name Priority Date/Time Associated Diagnosis Comments PTH STAT 07/10/2013 8:03 AM EDT CKD (chronic kidney disease) stage 4, GFR 15-29 ml/min DIFFERENTIAL, AUTOMATED STAT 07/10/2013 8:03 AM EDT CBC (WITH DIFF) STAT 07/10/2013 8:03 AM EDT CKD (chronic kidney disease) stage 4, GFR 15-29 ml/min PHOSPHORUS STAT 07/10/2013 8:03 AM EDT CKD (chronic kidney disease) stage 4, GFR 15-29 ml/min ALBUMIN LEVEL STAT 07/10/2013 8:03 AM EDT CKD (chronic kidney disease) stage 4, GFR 15-29 ml/min BASIC METABOLIC PANEL STAT 07/10/2013 8:03 AM EDT CKD (chronic kidney disease) stage 4, GFR 15-29 ml/min documented in this encounter Results * Differential, Automated (07/10/2013 8:03 AM EDT) Neutrophil % 70.5 34.0 - 71.0 % [facility] MILLENNIUM Neutrophil Absolute 5.81 1.50 - 6.30 x10(3)/mcL CERN[facility] MILLENNIUM Lymph % 19.9 19.0 - 53.0 % CERNER MILLENNIUM Lymphocytes Abs 1.6 1.0 - 3.6 x10(3)/mcL CERNER MILLENNIUM Monocyte % 7.3 4.0 - 13.0 % CERNER MILLENNIUM Monocyte Abs 0.6 0.2 - 1.0 x10(3)/mcL C[facility]ER MILLENNIUM Eos % 1.8 0.0 - 7.0 % CERNER MILLENNIUM Eosinophils Abs 0.2 0.0 - 0.5 x10(3)/mcL CERNER MILLENNIUM Basophil % 0.4 0.0 - 2.0 % CERNER MILLENNIUM Baso Absolute 0.0 0.0 - 0.2 x10(3)/mcL CERNER MILLENNIUM Immature Gran % 0.10 0.00 - 0.66 % CERNER MILLENNIUM Comment: Immature granulocytes(IG's)percentage and absolute count will include metamyelocytes, myelocytes, and promyelocytes. Blood smears from CBCs yielding IG's will be scanned manually for concordance. If this scan disagrees with the automated IG or if promyelocytes are noted, a manual differential will be performed. Immature Gran Absolute 0.01 0.00 - 0.05 x10(3)/mcL [facility] MILLENNIUM Blood specimen (specimen) 07/10/2013 8:03 AM EDT 07/10/2013 8:07 AM EDT Vasquez Yandel Hunter MD HEMATOLOGY ORDERABLE S [facility] * (ABNORMAL) PTH (07/10/2013 8:03 AM EDT) Parathyroid Hormone 93(H) 15 - 65 pg/mL [facility] Blood specimen (specimen) 07/10/2013 8:03 AM EDT 07/10/2013 8:07 AM EDT Narrative Resulting Agency Comment Spec In Lab Vasquez Yandel Hunter MD CHEMISTRY ORDERABLES [facility] * (ABNORMAL) Basic Metabolic Panel (non-fasting) (07/10/2013 8:03 AM EDT) Glucose 86 60 - 199 mg/dL [facility] Comment:Diabetes: >=200 mg/d L plus symptoms Blood Urea Nitrogen 23(H) 8 - 18 mg/dL [facility] Creatinine 1.35(H) 0.70 - 1.20 mg/dL CERNER MILLENNIUM Comment: Please note that the pediatric reference intervals supplied above were not validated at [facility]. Results from pediatric patients should be interpreted in conjunction to the patient's age, height and muscle mass. Sodium 139 135 - 145 mmol/L CERNER MILLENNIUM Potassium 4.2 3.5 - 5.0 mmol/L CERNER MILLENNIUM Comment: Please note: ??Patients with WBC >100,000 may have falsely elevated Potassium levels. ??For accurate Potassium quantification in these patients send serum separator tube (gold top) for subsequent determinations. ??Contact the Clinical Chemistry Laboratory if there are any questions. Chloride 105 98 - 107 mmol/L CERNER MILLENNIUM Carbon Dioxide 24 22 - 31 mmol/L CERNER MILLENNIUM Anion Gap 10 5 - 15 mmol/L CERNER MILLENNIUM Calcium 9.3 8.5 - 10.5 mg/dL CERNER MILLENNIUM Est Glomerular Filtration Rate 41(L) >=60 CERNER MILLENNIUM Comment: This estimated GFR [...] the following links into your internet browser. http://www.nkdep.nih.gov/lab-evaluation.shtml http://www.kidney.org/professionals/ Blood specimen (specimen) 07/10/2013 8:03 AM EDT 07/10/2013 8:07 AM EDT Narrative Resulting Agency Comment Spec In Lab Vasquez Hunter MD CHEMISTRY ORDERABLES [facility] * (ABNORMAL) CBC (with Diff) (07/10/2013 8:03 AM EDT) White Blood Cell 8.2 4.0 - 10.0 x10(3)/mc L CERN[facility] MILLENNIUM Red Blood Cell 4.29 3.93 - 5.22 x10(6)/mc L [facility] MILLENNIUM Hemoglobin 13.2 11.2 - 15.7 gm/dL CERN[facility] MILLENNIUM Hematocrit 40.5 34.0 - 45.0 % CERNER MILLENNIUM Mean Cell Volume 94.4(H) 79.0 - 94.0 fL CERNER MILLENNIUM Mean Cell Hemoglobin 30.8 26.6 - 32.2 pg C[facility]ER MILLENNIUM Mean Cell Hemoglobin Concentration 32.6 32.0 - 36.5 gm/dL CERNER MILLENNIUM Platelet 353 145 - 370 x10(3)/mc L [facility] MILLENNIUM RDW Standard Deviation 46.9(H) 35.0 - 46.0 fL CERNER MILLENNIUM RDW coefficient of variation 13.7 10.9 - 14.4 % CERNER MILLENNIUM Mean Platelet Volume 10.3 9.0 - 12.0 fL [facility] MILLENNIUM Blood specimen (specimen) 07/10/2013 8:03 AM EDT 07/10/2013 8:07 AM EDT Narrative Resulting Agency Comment Spec In Lab Vasquez Hunter MD HEMATOLOGY ORDERABLE S Performing Organization Address City/[facility] Co de Phone Number [facility] * Phosphorus (07/10/2013 8:03 AM EDT) Phosphorus 2.8 2.5 - 4.5 mg/dL [facility] Blood specimen (specimen) 07/10/2013 8:03 AM EDT 07/10/2013 8:07 AM EDT Narrative Resulting Agency Comment Spec In Lab Vasquez Hunter MD CHEMISTRY ORDERABLES Performing Organization Address City/State/[facility] Co de Phone Number [facility] * Albumin Level (07/10/2013 8:03 AM EDT) Albumin 4.4 3.2 - 5.2 gm/dL [facility] Blood specimen (specimen) 07/10/2013 8:03 AM EDT 07/10/2013 8:07 AM EDT Narrative Resulting Agency Comment Spec In Lab Vasquez Hunter MD CHEMISTRY ORDERABLES [facility] documented in this encounter Visit Diagnoses Diagnosis CKD (chronic kidney disease) stage 4, GFR 15-29 ml/min- Primary Chronic kidney disease, Stage IV (severe) CKD (chronic kidney disease) stage 3, GFR 30-59 ml/min Chronic kidney disease, Stage III (moderate) Scleroderma Systemic sclerosis Raynaud's disease Raynaud's syndrome documented in this encounter Care Teams Porcelain Slusher Relationship Specialty Start Date End Date Yaritza Pierre MD [address] [place] [address] PCP - General 03/27/12 11/27/18 documented as of this encounter
--- OUTSIDE RECORDS SUMMARY | 2024-09-14 13:13 | XMS_ITS | Encounter Summary ---
Author Organization [facility] [place] [address] Care Team Providers Care Edger Machine Setter Name Role Phone Lilibeth Phillips MD Primary Care Provider [phone] Reason for Referral * Consultation (Routine) - Closed Specialty Diagnoses / Procedures Referred By Wander hernandez Referred To Contact Dermatology Diagnoses Skin lesion of chest wall Yu Mcdonough [facility] [place] [address] [facility] [address] [place] [id number] Referral ID Status Reason Start Date Expiration Date V isits Requested Visits Authorized [id number] Closed Consult, Test & Treat 12/09/2011 06/06/2012 1 1 Reason for Visit * Reason Comments Follow-up Encounter Details Date Type Department Care Team (Late st Contact Info) Description 12/09/2011 12:45 PM EST Follow-[place] [address] SCHEDULE 1, PFT Yu Mcdonough [facility] [place] [address] Skin lesion of chest wall (Primary Dx) Discharge Disposition: Home Social History [...] Sign Reading Time Taken Comments Blood Pressure 102/63 12/09/2011 1:05 PM EST Pulse 76 12/09/2011 1:05 PM EST Temperature 36.4 ??C (97.5 ??F) 12/09/2011 1:05 PM ES T Respiratory Rate - - Oxygen Saturation 99% 12/09/2011 1:05 PM EST Inhaled Oxygen Concentration - - Weight 59.4 kg (131 lb) 12/09/2011 1:05 PM EST Height 168.9 cm (5' 6.5) 12/09/2011 1:05 PM EST Body Mass Index 20.83 12/09/2011 1:05 PM EST documented in this encounter Progress Notes * Yu Mcdonough DO - 12/09/2011 2:00 PM EST PROBLEM LIST: 1. Diffuse systemic sclerosis. (A) Initially diagnosed in [address] Placido Lora at [facility] in [place]. Then followed by Dr. Peyton Hinton in [facility] in [place] in 04/2010. . Echo and PFTs 12/09/11 both normal. (B) Treatment in the past has included intermittent penicillamine and methotrexate, however, she has been off immunosuppressive therapy since approximately 2005. (C) Hospitalization in 03/2010 in [place] with scleroderma hypertensive renal crisis, on dialysis for two months ending in mid 06/2010. (D) One visit with Dr. Ten Gonzalez in [place], [place] in late 2009. 2. Chronic kidney disease, stage III, with associated anemia. Currently followed by Dr. Sumit Sawyer in nephrology. 3. Raynaud's symptoms. 4. GERD. HPI: The patient returns for follow up of systemic sclerosis. She is new to me, transferring her care from [facility]. She was seen 2 months ago and fluoxetine was added for her Raynaud's. She tried it for 2 months but had to stop it due to side effects - lethargy, unclear thinking. It did nothing to help her Raynaud's. Her GERD is stable on bid nexium. Sometimes food feels slow going down but never gets stuck. Her Raynaud's is stable on 7.5 mg norvasc. No ulcers. She has constant pain in her mcps and has been living with that for years. She takes tylenol and ithelps. No lower intestinal symptoms. Had pfts and an echo today and both are normal. Fatigue is prominent and she manages as best she can. Concerned about a lesion on her anterior chest wall. Her sister was just diagnosed with melanoma. Physical exam: Gen: Patient is awake, alert [...] membranes, no oral ulcers Eyes: normal sclerae Heart: regular rate, no murmurs, rubs or gallops Lungs: clear to auscultation b/l Joints: + sclerodactyly, flexion contractures of all of her fingers, she can not make a complete fist, no synovitis, all of her other joints are normal. Assessment/Plan: 1. Systemic sclerosis with GERD, Raynaud's, sclerodactlyly and a hx of scleroderma renal crisis andnow stage [address] Sawyer 2. Skin lesion chest wall Her Systemic sclerosis appears stable. If her Raynaud's worsens, we can increase Norvasc to 10 mg. She had been on viagara in the past and tolerated it without side effects. It was stopped when she moved and never restarted. I do not think she needs it again at this point. I would like her to see dermatology for check of this lesion on her chest and for a total skin check. She will return on January 18 for the scleroderma SMA and we will see if we can get her a dermatology appt that day as well. I spent 1 hour with the patient today and more than 40 minutes was spent in counseling of her scleroderma and management of symptoms. documented in this encounter Plan of Treatment Upcoming Encounters Date Type Department Care Team (Late st Contact Info) Description 10/07/2024 11:30 AM EST Office Visit Dermatology at [place] [address] [place] [address] Jo Ordaz MD [facility] [place] [address] 12/13/2024 11:30 AM EST Appointment [place] [address] 12/13/2024 1:00 PM EST Office [place] [address] Kiet Pardo MD [facility] [place] [address] Scheduled Referrals Name Type Priority Associated Diagnoses Order Schedule REFERRAL TO DERMATOLOGY Outpatient Referral Routine Skin lesion of chest wall Ordered: 12/09/2011 documented as of this encounter Visit Diagnoses Diagnosis Skin lesion of chest wall- Primary Unspecified disorder of skin and subcutaneous tissue documented in this encounter Care Teams Edger Machine Setter Relationship Specialty Start Date End Date Lilibeth Phillips MD [address] [place] [address] PCP - General 10/12/10 03/26/12 documented as of this encounter
--- OUTSIDE RECORDS SUMMARY | 2024-09-14 13:13 | XMS_ITS | Encounter Summary ---
Author Organization [facility] [place] [address] Care Team Providers Care Group Care Worker Name Role Phone Yaritza Pierre MD Primary Care Provider [phone] Reason for Visit * Reason Comments Eye Problem 1 yr Hx Hypertensive retinopathy, scleroderma.here for followup no symptoms. Encounter Details Date Type Department Care Team (Late st Contact Info) Description 05/14/2012 3:15 PM EDT [place] [address] Jaiden Reilly MD [facility] [place] [address] Hypertensive retinopathy of both eyesfully resolved without sequelae or complications (Primary Dx); Raynaud's disease; Scleroderma; CKD (chronic kidney disease) stage 4, GFR 15-29 ml/min; Anemia in CKD (chronic kidney disease) Discharge Disposition: Home Social History Tobacco Use [...] as of this encounter Progress Notes * Jaiden Reilly MD - 05/14/2012 8:01 PM EDT Fortunately, this patient has demonstrated complete resolution of hypertensive retinopathy and no abnormalities are seen in either eye today. I've asked the patient to return in about one to 2 years or sooner very changes I've asked the patient to consider the use of artificial tears given what appears to be a diminished tear kang both eyes I've asked the patient to call if there any new changes or problems documented in this encounter Nursing Notes * 05/14/2012 3:15 PM EDT >> JAIDEN REILLY MD MonMay 14, 2012 8:02 PM The patient presents for followup evaluation of her hypertensive retinopathy. She is doing very well and has no new or associated symptoms, pain or other related concerns >> INGA PAIGE MonMay 14, 2012 4:06 PM Vision fine since last year, maybe better. documented in this encounter Plan of Treatment Upcoming Encounters Date Type Department Care Team (Late st Contact Info) Description 10/07/2024 11:30 AM EST Office Visit Dermatology at [place] [address] [place] [address] Jo Ordaz MD [facility] [place] [address] 12/13/2024 11:30 AM EST [place] [address] 12/13/2024 1:00 PM EST [place] [phone] Kiet Pardo MD [facility] [place] [address] documented as of this encounter Visit Diagnoses Diagnosis Hypertensive retinopathy of both eyesfully resolved without sequelae or complications- Primary Hypertensive retinopathy Raynaud's disease Raynaud's syndrome Scleroderma Systemic sclerosis CKD (chronic kidney disease) stage 4, GFR 15-29 ml/min Chronic kidney disease, Stage IV (severe) Anemia in CKD (chronic kidney disease) Anemia in chronic kidney disease documented in this encounter Care Teams Group Care Worker Relationship Specialty Start Date End Date Yaritza Pierre MD [address] [place] [address] PCP - General 03/27/12 11/27/18 documented as of this encounter
--- OUTSIDE RECORDS SUMMARY | 2024-09-14 13:13 | XMS_ITS | Encounter Summary ---
Author Organization [facility] [place] [address] Care Team Providers Care Advertising Material Distributor Name Role Phone Yaritza Pierre MD Primary Care Provider [phone] Reason for Visit * Reason Onset Date Comments Other 12/13/2012 [facility] Encounter Details Date Type Department Care Team (Late st Contact Info) Description 12/13/2012 [place] [phone] Debbie Cuenca Other ([facility] [employer]) Social [...] * Telephone Encounter - Debbie Cuenca - 12/13/2012 3:01 PM EST [facility] Pt called left VM-please refill Nexium and Norvasc. Found that annual applications need to be sent in. Not able to order refills today. I received the application and prescription for a 90-day supply of Norvasc. I mailed them to [employer]. I received the application and prescription for a 90-day supply of Nexium. I faxed them to [facility]. Pt stated in VM that she recv'd half of her Nexium order. I called [facility] they stated they had an Rx from Aug 2012 that stated Nexium 40 mg capsule once a day (Qty 90) which is what they sent pt-Co stated they will put in an investigation- I advised Co that I faxed in annual appl today w/same dosage that was submitted application Nexium 40 mg cap two times daily (Qty 180). I sent pt a letter w/updated info and asked her if she did have a prescription in Aug that was for Nexium once a day?[facility] [id number] documented in this encounter Plan of Treatment Upcoming Encounters Date Type Department Care Team (Late st Contact Info) Description 10/07/2024 11:30 AM EST Office Visit Dermatology at [place] [address] [place] [address] [facility] [place] [address] 12/13/2024 11:30 AM EST Appointment [place] [address] 12/13/2024 1:00 PM EST Office [place] [phone] [facility] [place] [address] documented as of this encounter Visit Diagnoses Not on filedocumented in this encounter Care Teams Advertising Material Distributor Relationship Specialty Start Date End Date Yaritza Pierre MD [address] [place] [address] PCP - General 03/27/12 11/27/18 documented as of this encounter
--- OUTSIDE RECORDS SUMMARY | 2024-09-14 13:13 | XMS_ITS | Encounter Summary ---
Author Organization [facility] Address [facility] [place] [address] Care Team Providers Care Innovation Manager Name Role Phone Yaritza Pierre MD Primary Care Provider [phone] Reason for Visit * Reason Comments Chronic Kidney Disease Encounter Details Date Type Department Care Team (Latest Contact Info) Description 03/26/2014 11:00 AM EDT Office Visit Neph[place] [address] Sumit Sawyer MD [facility] [place] [address] A, Nurse Clinician None CKD (chronic kidney disease), stage III (Primary Dx); Scleroderma; CKD (chronic kidney disease) stage 3, GFR 30-59 ml/min Discharge Disposition: Home Social History Tobacco Use [...] Sign Reading Time Taken Comments Blood Pressure 116/76 03/26/2014 11:17 AM EDT Pulse 64 03/26/2014 11:17 AM EDT Temperature - - Respiratory Rate - - Oxygen Saturation - - Inhaled Oxygen Concentration - - Weight 67.4 kg (148 lb 9.6 oz) 03/26/2014 11:17 AM EDT Height 170.2 cm (5' 7) 03/26/2014 11:17 AM EDT Body Mass Index 23.27 03/26/2014 11:17 AM EDT documented in this encounter Patient Instructions * Patient Instructions* Wendy Albarado RN - 03/26/2014 11:44 AM EDT No changes. Kidney function is stable. documented in this encounter Progress Notes * Sumit Sawyer MD - 03/26/2014 11:13 AM EDT [facility] [address] [facility] [place] [address] Reason for Clinic Visit: Systems Review and CKD management. Seen in clinic with: Pallavi Albarado RN, Continuing Machine Stripper Cutter (CCM) CKD related to: scleraderma crisis History of Present Illness: Overall patient has been doing well/Started on prednisone for pain in arms but bp in good range. 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 . History obtained by RN Specialist: She was last seen in June, in CKD clinic. Since then she has been treating ulcers on her finger tips. She is just starting on prednisone for pain in her forearms after having done some painting around the house. She saw the rheumotologist today prior to her CKD appointment. Scleraderma diagnosed in 1990 and kidney crisis [...] patterns: No problem Nocturia: None Appetite changes: I'm always hungry Food aversions: No Nausea: None Vomiting: None Bowels: No Diarrhea/Constipation going to start fiber one Edema: Trace Shortness of breath: None Orthopnea/PND: No PND; 1 pillow/ She uses lots of cough drops at night for moisture Muscle Cramping: No Cold intolerance: Yes but this has improved Itching: No Bruising/bleeding: None; Mental Status Changes: No Recent Home Blood Pressure Control: OK at home Recent Lipid Management: None Additional CCM Comments: How's your health been in the last 4 weeks: Poor Fair Good Very Good Excellent Cristine is working well for the pain in her hands. She will start prednisone for pain in her foreharm.s She has dual citizenship in [place] and [place] She is seeing equipment engineer at [facility] for the scleroderma management. Hepatitis B Status: Serum Testing Date of Testing Results Hep B sAb/Hep B sAg not tested Vaccination Status: Unknown Fistula Date/Type of Initial Access/Surgeon: Had tunnelled dialysis catheter removed at [facility] in June 2010. No plans for fistula at this time. Kidney function has been stable and slowly improving Advanced Directives: Will be filed today. PMH: Patient Active Problem List Diagnosis Code ??? Anemia in CKD (chronic kidney disease) 285.21, 585.9 ??? CKD (chronic kidney disease) stage 4, GFR 15-29 ml/min 585.4 ??? GERD (gastroesophageal reflux disease) 530.81 ??? Scleroderma 710.1 ??? Raynaud's disease 443.0 ??? AK (actinic keratosis) 702.0 ??? Solar lentigo 709.09 ??? Multiple nevi 216.9 No Known Allergies Outpatient Prescriptions Marked as Taking for the 03/26/14 encounter (Office Visit) with Sumit Sawyer MD Medication Sig Dispense Refill ??? amLODIPine (NORVASC) 10 mg tablet Take 1 tablet by mouth daily. 90 tablet 3 ??? predniSONE (DELTASONE) 10 mg tablet Take 1 tablet by mouth daily. 7 tablet 0 ??? fosinopril (MONOPRIL) 40 mg tablet Take 1 tablet by mouth 2 times daily. 180 tablet 3 ??? lidocaine-prilocaine (EMLA) cream Apply topically as needed. 30 g 2 ??? esomeprazole (NEXIUM) 40 mg capsule Take 1 capsule by mouth 2 times daily. 180 capsule 3 ??? [DISCONTINUED] fosinopril (MONOPRIL) 40 mg tablet Take 1 [...] skin every 6 hours. Physical Exam: BP 116/76 Pulse 64 Ht 170.2 cm (5' 7) Wt 67.405 kg (148 lb 9.6 oz) BMI 23.27 kg/m2 If exam WNL X Abnormal findings General appearance scleroderma Head Scleroderma facies Eyes x ENT Neck x Respiratory No rales/clear COR/Vascular rrr Abdomen nl Skin scleroderma Neuro intact Asterixis Extremities No edema Other Labs Results for AMBER DAWSON ( ) as of 03/26/2014 13:35 Ref. Range 01/02/2013 13:05 07/10/2013 08:03 10/30/2013 00:00 03/26/2014 10:25 03/26/2014 10:25 03/26/2014 10:30 WBC Latest Range: 4.0-10.0 x10(3)/mcL 10.3 (H) 8.2 8.6 RBC Latest Range: 3.93-5.22 x10(6)/mcL 4.48 4.29 4.38 Hemoglobin Latest Range: 11.2-15.7 gm/dL 14.3 13.2 13.9 Hematocrit Latest Range: 34.0-45.0 % 43.6 40.5 42.4 MCV Latest Range: 79.0-94.0 fL 97.3 (H) 94.4 (H) 96.8 (H) MCH Latest Range: 26.6-32.2 pg 31.9 30.8 31.7 MCHC Latest Range: 32.0-36.5 gm/dL 32.8 32.6 32.8 RDWSD Latest Range: 35.0-46.0 fL 47.3 (H) 46.9 (H) 47.6 (H) RDWCV Latest Range: 10.9-14.4 % 13.3 13.7 13.5 Platelets Latest Range: 145-370 x10(3)/mcL 351 353 316 MPV Latest Range: 9.0-12.0 fL 10.7 10.3 11.1 Neutr Abs (ANC) Latest Range: 1.50-6.30 x10(3)/mcL 7.39 (H) 5.81 6.15 Neutrophils % Latest Range: 34.0-71.0 % 71.7 (H) 70.5 71.7 (H) Immature Gran % Latest Range: 0.00-0.66 % 0.20 0.10 0.20 Lymphocytes % Latest Range: 19.0-53.0 % 18.0 (L) 19.9 18.8 (L) Monocytes % Latest Range: 4.0-13.0 % 8.2 7.3 7.3 Eosinophils % Latest Range: 0.0-7.0 % 1.5 1.8 1.4 Basophils % Latest Range: 0.0-2.0 % 0.4 0.4 0.6 Yessica Gran Abs Latest Range: 0.00-0.05 x10(3)/mcL 0.02 0.01 0.02 Lymphocytes Abs Latest Range: 1.0-3.6 x10(3)/mcL 1.8 1.6 1.6 Monocyte Abs Latest Range: 0.2-1.0 x10(3)/mcL 0.8 0.6 0.6 Eosinophils Abs Latest Range: 0.0-0.5 x10(3)/mcL 0.2 0.2 0.1 Basophils Abs Latest Range: 0.0-0.2 x10(3)/mcL 0.0 0.0 0.0 Sodium Latest Range: 135-145 mmol/L 138 139 137 (External Lab) 138 Potassium Latest Range: 3.5-5.0 mmol/L 4.6 4.2 4.9 (External Lab) 5.2 (H) Chloride Latest Range: 98-107 mmol/L 104 105 104 (External Lab) 103 CO2 Latest Range: 22-31 mmol/L 23 24 25 (External Lab) 24 Anion Gap Latest Range: 5-15 mmol/L 11 10 11 BUN Latest Range: 8-18 mg/dL 31 (H) 23 (H) 30 (EXTERNAL/ABN) 25 (H) Creatinine Latest Range: 0.70-1.20 mg/dL 1.46 (H) 1.35 (H) 1.28 (EXTERNAL/ABN) 1.33 (H) Estimated GFR Latest Range: >=60 38 (L) 41 (L) 44 (EXTERNAL/ABN) 42 (L) Glucose Lvl No range found 98 86 81 (External Lab) 86 Calcium Latest Range: 8.5-10.5 mg/dL 9.2 9.3 8.4 (EXTERNAL/ABN) 9.1 9.1 Phosphorus Latest Range: 2.5-4.5 mg/dL 2.9 2.8 2.7 Albumin Latest Range: 3.2-5.2 gm/dL 4.5 4.4 4.4 PTH Latest Range: 15-65 pg/mL 120 (H) 93 (H) 96 (H) U Creatinine No range found 99 U Ran Malb Calc No range found 235 U Ran Malb Conc No range found 232.7 Gear Cutting Machine Operator Cytology Final Report No range found Problem/Goal/Assessment/Plan: Problem: Chronic Kidney Disease Goal: Reduce rate of progression Education for CKD Stage specific issues Results: Estimated GFR (MDRD): 43 ml/min/1.73m2 CKD Stage G3B A2 - Changes discussed with RN Specialist: A/P: Stable CKD secondary to scleroderma on PERRY Problem: Management of Anemia related to Chronic Kidney Disease (CKD) Goal: Hgb 9-10.5 g/dl Today's Results Hgb - 13.9 Receiving erythropoetic stimulating agent? No Last IV Iron replacement therapy (Venofer), Date : None Changes discussed with RN Specialist: None A/P: Problem: Hypertension Goal: Urine alb:cr ratio <30mg/g - 140/90, Urine alb:cr ratio > 30mg/g - 130/80 Sodium intake < 2 Gm per day. Results: BP today - 116/76 Changes discussed with RN Specialist: None A/P: Excellent Problem: Proteinuria Goal: Alb:Cr ratio < 30mg/g Today's results: Alb:Cr ratio 235 Changes discussed with RN Specialist: She takes fosinopril A/P: ok Problem: Bone Disease Goal: Stage 3 PTH: 35-70 pg/ml Phos 2.7-4.6 Ca 8.5-10.5mg/dl Stage 4 PTH: 70-110 pg/ml Phos 2.7-4.6 Ca 8.5-10.5mg/dl Stage 5 PTH: 150-300 pg/ml Phos 3.5-5.5 Ca 8.5-10.5mg/dl Results: PTH today - 96 ( pt not taking calcitriol) Phos today -2.7 (pt not taking binders) Calcium today - 9.1 Changes discussed with RN Specialist: None A/P: ok Problem: Nutrition Goal: Albumin > 4.0gm/dl BMI 20-25 kg/m2 Results: Albumin today - 4.4 Changes discussed with RN Specialist: None A/P: excellent Problem: Patient does not have Diabetes Goal: HA1C ~ 7.0% Results: HA1C today - Random Glucose - 89 Changes discussed with RN Specialist: None A/P: ok Summary: Patient is doing remarkably well. Renal function remains stable on PERRY after having required dialysis in the past. Return to clinic: one year documented in this encounter Plan of Treatment Upcoming Encounters Date Type Department Care Team (Late st Contact Info) Description 10/07/2024 11:30 AM EST Office Visit Dermatology at [address] [address] Jo Ordaz MD [facility] [place] [address] 12/13/2024 11:30 AM EST Appointment [place] [phone] 12/13/2024 1:00 PM EST Office [place] [phone] Kiet Pardo MD [facility] [place] [address] documented as of this encounter Procedures Procedure Name Priority Date/Time Associated Diagnosis Comments U ALBUMIN/CRE RATIO Routine 03/26/2014 1 0:30 AM EDT CKD (chronic kidney disease), stage III CREATININE, URINE, RANDOM Routine 03/26/2014 10:30 AM EDT CKD (chronic kidney disease), stage III PTH Routine 03/26/2014 10:25 AM EDT CKD (chronic kidney disease), stage III DIFFERENTIAL, AUTOMATED Routine 03/26/2014 10:25 AM EDT CBC (WITH DIFF) Routine 03/26/2014 10:25 AM EDT CKD (chronic kidney disease), stage III PHOSPHORUS STAT 03/26/2014 10:25 AM EDT CKD (chronic kidney disease), stage III CALCIUM Routine 03/26/2014 10:25 AM EDT CKD (chronic kidney disease), stage III ALBUMIN LEVEL STAT 03/26/2014 10:25 AM EDT CKD (chronic kidney disease), stage III BASIC METABOLIC PANEL STAT 03/26/2014 10:25 AM EDT CKD (chronic kidney disease), stage III documented in this encounter Results * Microalbumin, urine, random (03/26/2014 10:30 AM EDT) Creatinine, Urine 99 mg/dL CE HOUSTONER MILLENNIUM Albumin, Urine 232.7 mg/L FADI Rowan MILLENNIUM Albumin / Creatinin Ratio, Urine 235 mcg/mg Cr SALVADOR TORRESENNIUM Comment: Reference Range* Random collection (mcg/mg creatinine) Normal ?<30 Microalbuminuria ?? 30 - 300 Clinical Albuminuria ?? >300 *[place] Diabetes [employer]. Diabetic Nephropathy. Diabetes Care 1997;(Suppl 1):S24-S27 Exercise within 24 hour, infection, fever, CHF, marked hyperglycemia, and marked hypertension may elevate urinary albumin excretion over baseline values. Urine specimen (specimen) 03/26/2014 10:30 AM EDT 03/26/2014 10:35 AM EDT Narrative Resulting Agency Comment Spec In Lab Sumit Sawyer MD URINE ORDERABLES CERNER MILLENNIUM * Creatinine, urine, random (03/26/2014 10:30 AM EDT) Creatinine, Urine 99 mg/dL CERNER MILLENNIUM Urine specimen (specimen) 03/26/2014 10:30 AM EDT 03/26/2014 10:35 AM EDT Narrative Resulting Agency Comment Spec In Lab Sumit Sawyer MD URINE ORDERABLES CERNER MILLENNIUM * (ABNORMAL) Differential, Automated (03/26/2014 10:25 AM EDT) Neutrophil % 71.7(H) 34.0 - 71.0 % CERNER MILLENNIUM Neutrophil Absolute 6.15 1.50 - 6.30 x10(3)/mc L CERNER MILLENNIUM Lymph % 18.8(L) 19.0 - 53.0 % CERNER MILLENNIUM Lymphocytes Abs 1.6 1.0 - 3.6 x10(3)/mc L CERNER MILLENNIUM Monocyte % 7.3 4.0 - 13.0 % CERNER MILLENNIUM Monocyte Abs 0.6 0.2 - 1.0 x10(3)/mc L CERNER MILLENNIUM Eos % 1.4 0.0 - 7.0 % CERNER MILLENNIUM Eosinophils Abs 0.1 0.0 - 0.5 x10(3)/mc L CERNER MILLENNIUM Basophil % 0.6 0.0 - 2.0 % CERNER MILLENNIUM Baso Absolute 0.0 0.0 - 0.2 x10(3)/mc L CERNER MILLENNIUM Immature Gran % 0.20 0.00 - 0.66 % CERNER MILLENNIUM Comment: Immature granulocytes(IG's)percentage and absolute count will include metamyelocytes, myelocytes, and promyelocytes. Blood smears from CBCs yielding IG's will be scanned manually for concordance. If this scan disagrees with the automated IG or if promyelocytes are noted, a manual differential will be performed. Immature Gran Absolute 0.02 0.00 - 0.05 x10(3)/mc L [facility] Blood specimen (specimen) 03/26/2014 10:25 AM EDT 03/26/2014 10:35 AM EDT Sumit Sawyer MD HEMATOLOGY ORDERABL ES Performing Organization Address [facility] Phone Number [facility] * Calcium (03/26/2014 10:25 AM EDT) Calcium 9.1 8.5 - 10.5 mg/dL [facility] Blood specimen (specimen) 03/26/2014 10:25 AM EDT 03/26/2014 10:35 AM EDT Narrative Resulting Agency Comment Spec In Lab Sumit Sawyer MD CHEMISTRY ORDERABLE S Performing Organization Address [facility] Phone Number [facility] * (ABNORMAL) PTH (03/26/2014 10:25 AM EDT) Parathyroid Hormone 96(H) 15 - 65 pg/mL [facility] Blood specimen (specimen) 03/26/2014 10:25 AM EDT 03/26/2014 10:35 AM EDT Narrative Resulting Agency Comment Spec In Lab Sumit Sawyer MD CHEMISTRY ORDERABLE S Performing Organization Address [facility] de Phone Number [facility] * Phosphorus (03/26/2014 10:25 AM EDT) Phosphorus 2.7 2.5 - 4.5 mg/dL [facility] Blood specimen (specimen) 03/26/2014 10:25 AM EDT 03/26/2014 10:35 AM EDT Narrative Resulting Agency Comment Spec In Lab Sumit Sawyer MD CHEMISTRY ORDERABLE S Performing Organization Address [facility]/ZIP Co de Phone Number CERNER MILLENNIUM * (ABNORMAL) CBC (with Diff) (03/26/2014 10:25 AM EDT) Pathologist [facility] White Blood Cell 8.6 4.0 - 10.0 x10(3)/mc L CERNER MILLENNIUM Red Blood Cell 4.38 3.93 - 5.22 x10(6)/mc L CERNER MILLENNIUM Hemoglobin 13.9 11.2 - 15.7 gm/dL CERNER MILLENNIUM Hematocrit 42.4 34.0 - 45.0 % CERNER MILLENNIUM Mean Cell Volume 96.8(H) 79.0 - 94.0 fL CERNER MILLENNIUM Mean Cell Hemoglobin 31.7 26.6 - 32.2 pg CERNER MILLENNIUM Mean Cell Hemoglobin Concentration 32.8 32.0 - 36.5 gm/dL CERNER MILLENNIUM Platelet 316 145 - 370 x10(3)/mc L CERNER MILLENNIUM RDW Standard Deviation 47.6(H) 35.0 - 46.0 fL CERNER MILLENNIUM RDW coefficient of variation 13.5 10.9 - 14.4 % CERNER MILLENNIUM Mean Platelet Volume 11.1 9.0 - 12.0 fL CERNER MILLENNIUM Blood specimen (specimen) 03/26/2014 10:25 AM EDT 03/26/2014 10:35 AM EDT Narrative Resulting Agency Comment Spec In Lab Sumit Sawyer MD HEMATOLOGY ORDERABL ES Performing Organization Address [facility]/ZIP Co de Phone Number CERNER MILLENNIUM * (ABNORMAL) Basic Metabolic Panel (non-fasting) (03/26/2014 10:25 AM EDT) Pathologist [facility] Glucose 86 60 - 199 mg/dL CERNER MILLENNIUM Comment:Diabetes: >=200 mg/d L plus symptoms Blood Urea Nitrogen 25(H) 8 - 18 mg/dL CERNER MILLENNIUM Creatinine 1.33(H) 0.70 - 1.20 mg/dL CERNER MILLENNIUM Comment: Please note that the pediatric reference intervals supplied above were not validated at [facility]. Results from pediatric patients should be interpreted in conjunction to the patient's age, height and muscle mass. Sodium 138 135 - 145 mmol/L CERNER MILLENNIUM Potassium 5.2(H) 3.5 - 5.0 mmol/L CERNER MILLENNIUM Comment: [...] - 31 mmol/L CERNER MILLENNIUM Anion Gap 11 5 - 15 mmol/L CERNER MILLENNIUM Calcium 9.1 8.5 - 10.5 mg/dL CERNER MILLENNIUM Est Glomerular Filtration Rate 42(L) >=60 CERNER MILLENNIUM Comment: This estimated GFR [...] internet browser. http://www.nkdep.nih.gov/lab-evaluation.shtml http://www.kidney.org/professionals/ Blood specimen (specimen) 03/26/2014 10:25 AM EDT 03/26/2014 10:35 AM EDT Narrative Resulting Agency Comment Spec In Lab Sumit Sawyer MD CHEMISTRY ORDERABLE S CERNER MELISSAENNIUM * Albumin Level (03/26/2014 10:25 AM EDT) Albumin 4.4 3.2 - 5.2 gm/dL CERNER MILLENNIUM Blood specimen (specimen) 03/26/2014 10:25 AM EDT 03/26/2014 10:35 AM EDT Narrative Resulting Agency Comment Spec In Lab Sumit Sawyer MD CHEMISTRY ORDERABLE S [facility] documented in this encounter Visit Diagnoses Diagnosis CKD (chronic kidney disease), stage III- Primary Chronic kidney disease, Stage III (moderate) Scleroderma Systemic sclerosis CKD (chronic kidney disease) stage 3, GFR 30-59 ml/min Chronic kidney disease, Stage III (moderate) documented in this encounter Care Teams Innovation Manager Relationship Specialty Start Date End Date Yaritza Pierre MD [address] [place] [address] PCP - General 03/27/12 11/27/18 documented as of this encounter
--- OUTSIDE RECORDS SUMMARY | 2024-09-14 13:13 | XMS_ITS | Encounter Summary ---
Author Organization [facility] Address [facility] [place] [address] Care Team Providers Care Coremaking Machine Operator Name Role Phone Lilibeth Phillips MD Primary Care Provider [phone] Reason for Visit * Reason Comments Skin Check Encounter Details Date Type Department Care Team (Late st Contact Info) Description 01/19/2012 2:05 PM EST Office [place] [address] Jo Ordaz MD [facility] [place] [place] [address] Scleroderma (Primary Dx); Family history of melanoma Discharge Disposition: Home Social History Tobacco Use [...] of this encounter Progress Notes * Jo Jimenez MD - 01/19/2012 2:48 PM EST DERMATOLOGY CONSULT NOTE Date of service: 01/19/2012 Amber Wells : 1960 Provider: Jo Jimenez MD Chief Complaint Patient presents with ??? Skin Check The patient is seen at the request of LILIBETH PHILLIPS MD, who instructed the patient to be seen for evaluation of above SKIN HX: Scleroderma Sister with melanoma. BOBBY Wells is a 51 y.o. year old female.Here today for a skin check. Her sister was just diagnosed with a Melanoma. Numerous freckles on chest and in sun exposed areas, but no new or changing pigmented lesions. She is [place] and has lived [place] [facility] [place]. She uses SPF 15 everyday. 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 Spends a lot of time outside. Uses Cerave mixed with Vaseline,for moisture. ADR: Review of patient's allergies indicates no known allergies. MEDS: Current outpatient prescriptions ordered prior to encounter Medication Sig Dispense Refill ??? amlodipine (NORVASC) 2.5 mg tablet Take 3 tablets by mouth daily. 270 tablet 3 ??? esomeprazole (NEXIUM) 40 mg capsule Take 1 capsule by mouth 2 times daily. 180 capsule 3 ??? FLUoxetine (PROZAC) 20 mg capsule Take 1 capsule by mouth daily. 30 capsule 5 ??? fosinopril (MONOPRIL) 40 mg tablet Take 1 tablet by mouth 2 times daily. 60 tablet 11 ??? Acetaminophen 650 mg Tab Take 1,300 mg by mouth daily as needed. ??? Vitamin E 200 unit Tab Take 1,200 Int'l Units by mouth daily. ??? ALPRAZolam (XANAX) 0.5 mg tablet Take 0.5 mg by mouth 2 times daily as needed. ??? codeine 30 mg tablet Take 30-60 mg by mouth every 4 hours as needed. ??? nitroGLYcerin (NITROGLYN) 2 % ointment Place 0.5 inches onto the skin every 6 hours. ??? B Complex-Vitamin C-Folic Acid (B UVLDGVO-C-KDWMF ACID) 1 mg capsule 1 MG = 1 Capsule(s) PO Once daily ROS General: feeling well Skin: denies other [...] were not examined. Significant skin findings: A. 0.3-0.6cm light-brown evenly pigmented, well-demarcated macules on chest, and photodistributed on upper arms, shoulders, face. No pigmented lesions concerning for melanoma. B. Diffuse hyperpigmentation, skin induration, sclerodactyly and taught facies c/w scleroderma ASSESSMENT/PLAN: A. Lentigines- no lesions worrisome for skin cancer B. The nature of sun-induced photo-aging and skin cancers is discussed. Sun avoidance, protective clothing, and the use of 30-SPF sunscreens is advised. Observe closely for skin damage/changes, and call if such occurs. C. RTC in 1 year. Recommended annual skin exam due to FH melanoma. Her scleroderma is managed by Dr. Phillips. Note initiated by: DUC TALAVERA LPN Routed to physician for review and changes: Jo Jimenez MD Supervisor Heavy Equipment of Dermatology Department of Surgery [facility] cc: LILIBETH PHILLIPS MD documented in this encounter Plan of Treatment Upcoming Encounters Date Type Department Care Team (Late st Contact Info) Description 10/07/2024 11:30 AM EST Office Visit Dermatology at [address] [phone] Jo Ordaz MD [facility] [place] [address] 12/13/2024 11:30 AM EST Appointment [place] [address] 12/13/2024 1:00 PM EST Office Visit [place] [phone] Kiet Pardo MD [facility] [place] [address] documented as of this encounter Visit Diagnoses Diagnosis Scleroderma- Primary Systemic sclerosis Family history of melanoma Family history of other specified malignant neoplasm documented in this encounter Care Teams Coremaking Machine Operator Relationship Specialty Start Date End Date Lilibeth Phillips MD [address] [place] [address] PCP - General 10/12/10 03/26/12 documented as of this encounter
--- OUTSIDE RECORDS SUMMARY | 2024-09-14 13:13 | XMS_ITS | Encounter Summary ---
Author Organization [facility] [place] [address] Care Team Providers Care Chief Controller Station Name Role Phone Yaritza Pierre MD Primary Care Provider [phone] Reason for Visit * Reason Onset Date Comments Other 05/07/2013 MAP-Refill Encounter Details Date Type Department Care Team (Late st Contact Info) Description 05/07/2013 [place] [phone] Debbie Cuenca Other (MAP-Refill) Social History Tobacco Use Types Packs/Day Years [...] * Telephone Encounter - Debbie Cuenca - 05/07/2013 1:29 PM EDT MAP-Refill Per pt request I called [employer] to order a 90-day supply of Norvasc. The medication will be shipped in 7-10 days to [facility] then to pt's home. I called [facility] to order a 90-day supply of Nexium. She has 1 refills left. The medication will be shipped in 5-7 days to pt's home. I called pt left VM re:status-pls call if has questions.[id number] documented in this encounter Plan of Treatment Upcoming Encounters Date Type Department Care Team (Late st Contact Info) Description 10/07/2024 11:30 AM EST Office Visit Dermatology at [place] [address] [place] [address] Jo Ordaz MD [facility] [place] [address] 12/13/2024 11:30 AM EST Appointment [place] [phone] 12/13/2024 1:00 PM EST Office [place] [phone] Kiet Pardo MD [facility] [place] [address] documented as of this encounter Visit Diagnoses Not on filedocumented in this encounter Care Teams Chief Controller Station Relationship Specialty Start Date End Date Yaritza Pierre MD [address] [place] [address] PCP - General 03/27/12 11/27/18 documented as of this encounter
--- OUTSIDE RECORDS SUMMARY | 2024-09-14 13:13 | XMS_ITS | Encounter Summary ---
[place] [address] Care Team Providers Care Email Marketing Processor Name Role Phone Yaritza Pierre MD Primary Care Provider [phone] Encounter Details Date Type Department Care Team (Late st Contact Info) Description 10/02/2012 Telephone [place] [phone] Wendy Albarado, RN Social History Tobacco Use [...] Miscellaneous Notes * Telephone Encounter - Wendy Albarado, RN - 10/02/2012 3:17 PM EST O. Called by patient. She is not feeling well and plans to be seen and may need medications. She isworried about the cost. She has Medicaid spend down and was seen in CKD clinic last week. She wantsto be sure the office sends the bills to the [facility] Medicaid office. [place] [phone] [place] left a message. She in turn sent the bills to the [facility] Medicaid office so they could be utilized for her spend down. A. Patient on [place] medicaid. Spend down has now been met for September. documented in this encounter Plan of Treatment Upcoming Encounters Date Type Department Care Team (Late st Contact Info) Description 10/07/2024 11:30 AM EST Office Visit Dermatology at [facility] [address] [place] [address] Jo Ordaz MD [facility] [place] [address] 12/13/2024 11:30 AM EST [place] [address] 12/13/2024 1:00 PM EST Office [place] [address] Kiet Pardo MD [facility] [place] [place] [address] documented as of this encounter Visit Diagnoses Not on filedocumented in this encounter Care Teams Email Marketing Processor Relationship Specialty Start Date End Date Yaritza Pierre MD [address] [place] [address] PCP - General 03/27/12 11/27/18 documented as of this encounter
--- OUTSIDE RECORDS SUMMARY | 2024-09-14 13:13 | XMS_ITS | Encounter Summary ---
Author Organization [facility] [place] [address] Care Team Providers Care Marketing Community Liaison Name Role Phone Yaritza Pierre MD Primary Care Provider [phone] Reason for Visit * Reason Onset Date Comments Other 05/11/2012 MAP-TC to Co Encounter Details Date Type Department Care Team (Late st Contact Info) Description 05/11/2012 Telephone [place] [phone] Debbie Cuenca Other (MAP-TC to Co) Social History Tobacco Use Types [...] * Telephone Encounter - Debbie Cuenca - 05/11/2012 4:02 PM EDT MAP-TC to Co Per pt request-I called [employer] to order a 90-day supply of Norvasc. She has 2 refills left. The medication will be shipped in 7-10 days. I called [facility] to order a 90-day supply of Nexium. She has 1 refills left. The medication will be shipped in 5-7 days. [facility] [id number] documented in this encounter Plan of Treatment Upcoming Encounters Date Type Department Care Team (Late st Contact Info) Description 10/07/2024 11:30 AM EST Office Visit Dermatology at [facility] [address] [place] [address] [facility] [place] [address] 12/13/2024 11:30 AM EST Appointment [place] [address] 12/13/2024 1:00 PM EST Office [place] [phone] [facility] [place] [address] documented as of this encounter Visit Diagnoses Not on filedocumented in this encounter Care Teams Marketing Community Liaison Relationship Specialty Start Date End Date Yaritza Pierre MD [address] [place] [address] PCP - General 03/27/12 11/27/18 documented as of this encounter
--- OUTSIDE RECORDS SUMMARY | 2024-09-14 13:13 | XMS_ITS | Encounter Summary ---
Author Organization [facility] [place] [address] Care Team Providers Care High School Academic Coach Name Role Phone Lilibeth Phillips MD Primary Care Provider [phone] Reason for Visit * Reason Onset Date Comments Other 01/19/2012 MAP-phone refill s Encounter Details Date Type Department Care Team (Late st Contact Info) Description 01/19/2012 [place] [address] Jamia Hinton (MAP-phone refills) Social History Tobacco Use Types Packs/Day Years [...] * Telephone Encounter - Jamia Hinton - 01/19/2012 1:39 PM EST MAP-phone refills I called [facility] to order a 90-day supply of Norvasc 2.5 mg; three tablets po once daily. She has 3 refills left. I let Ms. Wells know that the medication will be shipped to her doctor'soffice and mailed to her home address and to call me if she does not receive it. I called [facility] to order a 90-day supply of Nexium 40 mg po twice daily. She has 2 refills left.I let Ms. Wells know that the medication will be shipped to her doctor's office [facility] and to call me if she does not receive it. Ms. Wells asked about assistance with Fosinopril. There is no free program, but it is on the generic list at [facility] and [facility]. I told her to call different pharmacies to find the best emanuel. documented in this encounter Plan of Treatment Upcoming Encounters Date Type Department Care Team (Late st Contact Info) Description 10/07/2024 11:30 AM EST Office Visit Dermatology at [address] [address] Jo Ordaz MD [facility] [place] [address] 12/13/2024 11:30 AM EST Appointment [place] [address] 12/13/2024 1:00 PM EST Office [place] [address] Kiet Pardo MD [facility] [place] [address] documented as of this encounter Visit Diagnoses Not on filedocumented in this encounter Care Teams High School Academic Coach Relationship Specialty Start Date End Date Lilibeth Phillips MD [address] [place] [address] PCP - General 10/12/10 03/26/12 documented as of this encounter
--- OUTSIDE RECORDS SUMMARY | 2024-09-14 13:13 | XMS_ITS | Encounter Summary ---
Author Organization [facility] [place] [address] Care Team Providers Care Flask Handler Name Role Phone Yaritza Pierre MD Primary Care Provider [phone] Reason for Visit * Reason Onset Date Comments Other 10/03/2013 MAP-Refills Encounter Details Date Type Department Care Team (Late st Contact Info) Description 10/03/2013 [place] [phone] Debbie Cuenca Other (MAP-Refills) Social History Tobacco Use Types Packs/Day Years [...] * Telephone Encounter - Debbie Cuenca - 10/03/2013 9:46 AM EST MAP-Refills Per pt request I called [employer] to order a 90-day supply of Norvasc. The medication will be shipped in 7-10 days to [facility] then shipped to pt's home. I called [facility] to order a 90-day supply of Nexium. The medication will be shipped in 7-10 days to pt's home.[id number] documented in this encounter Plan of Treatment Upcoming Encounters Date Type Department Care Team (Late st Contact Info) Description 10/07/2024 11:30 AM EST Office Visit Dermatology at [facility] [address] [place] [address] Jo Ordaz MD [facility] [address] 12/13/2024 11:30 AM EST Appointment [place] [phone] 12/13/2024 1:00 PM EST Office [place] [phone] Kiet Pardo MD [facility] [place] [address] documented as of this encounter Visit Diagnoses Not on filedocumented in this encounter Care Teams Flask Handler Relationship Specialty Start Date End Date Yaritza Pierre MD [address] [place] [address] PCP - General 03/27/12 11/27/18 documented as of this encounter
--- OUTSIDE RECORDS SUMMARY | 2024-09-14 13:13 | XMS_ITS | Encounter Summary ---
Author Organization [facility] [place] [address] Care Team Providers Care Cake Former Name Role Phone Yaritza Pierre MD Primary Care Provider [phone] Reason for Visit * Reason Onset Date Comments Other 02/21/2014 MAP-Appl to Encounter Details Date Type Department Care Team (Late st Contact Info) Description 02/21/2014 Telephone [place] [phone] Debbie Cuenca Other (MAP-Appl to ) Social History Tobacco Use Types Packs/Day Years [...] * Telephone Encounter - Debbie Cuenca - 02/21/2014 10:34 AM EDT [address] I sent the application for Nexium to Sumit Sawyer for his signature and prescription. I will follow through with the application once everything is returned to me.[id number] documented in this encounter Plan of Treatment Upcoming Encounters Date Type Department Care Team (Late st Contact Info) Description 10/07/2024 11:30 AM EST Office Visit Dermatology at [facility] [address] [place] [address] Jo Ordaz MD [facility] [place] [address] 12/13/2024 11:30 AM EST Appointment [place] [address] 12/13/2024 1:00 PM EST Office Visit [place] [phone] Kiet Pardo MD [facility] [place] [address] documented as of this encounter Visit Diagnoses Not on filedocumented in this encounter Care Teams Cake Former Relationship Specialty Start Date End Date Yaritza Pierre MD [address] [place] [address] PCP - General 03/27/12 11/27/18 documented as of this encounter
--- OUTSIDE RECORDS SUMMARY | 2024-09-14 13:13 | XMS_ITS | Encounter Summary ---
Author Organization [facility] [place] [address] Care Team Providers Care Client Business Manager Name Role Phone Yaritza Pierre MD Primary Care Provider [phone] Reason for Visit * Reason Onset Date Comments Other 05/21/2013 MAP-Walk IN-upda te? Encounter Details Date Type Department Care Team (Late st Contact Info) Description 05/21/2013 Tele[place] [phone] Debbie Cuenca Other (MAP-Walk IN-update?) Social History Tobacco Use Types Packs/Day Years [...] * Telephone Encounter - Debbie Cuenca - 05/21/2013 12:23 PM EDT MAP-Walk IN-update? Amber came into [facility] wondering about the status of her Norvasc refill-advised it had been reordered May 07, 2013 7-10 days to [facility] then to pt's home. Reviewed what will happen when Norvasc goes OFF the pgm-gave pt Rx Outreach info. Pt thought her Rx may increase-she has Dr's appt today. Gave her the Med Change form for her Dr to sign and print paper Rx if Norvasc dosage does change to bring back to our office. Pt brought back signed Med Change form-w/increase of Norvasc to 10mg 1 tab per day. Discussed w/pt I will send increase dosage form to [facility] the end of May for next refill. Pt will use medication that she has/will get and adjust her dosage accordingly. Pt stated her agreement.[id number] documented in this encounter Plan of Treatment Upcoming Encounters Date Type Department Care Team (Late st Contact Info) Description 10/07/2024 11:30 AM EST Office Visit Dermatology at [facility] [address] [place] [address] Jo Ordaz MD [facility] [place] [address] 12/13/2024 11:30 AM EST Appointment [place] [address] 12/13/2024 1:00 PM EST Office [place] [address] Kiet Pardo MD [facility] [place] [address] documented as of this encounter Visit Diagnoses Not on filedocumented in this encounter Care Teams Client Business Manager Relationship Specialty Start Date End Date Yaritza Pierre MD [address] [place] [address] PCP - General 03/27/12 11/27/18 documented as of this encounter
--- OUTSIDE RECORDS SUMMARY | 2024-09-14 13:13 | XMS_ITS | Encounter Summary ---
Author Organization [facility] [place] [address] Care Team Providers Care Blood Bank Laboratory Technician Name Role Phone Yaritza Pierre MD Primary Care Provider [phone] Reason for Visit * Reason Comments Follow-up Encounter Details Date Type Department Care Team (Late st Contact Info) Description 05/21/2013 2:15 PM EDT Follow-[place] [address] Yu Mcdonough, [facility] [place] [address] Systemic sclerosis (Primary Dx) Discharge Disposition: Home Social History [...] Sign Reading Time Taken Comments Blood Pressure 119/69 05/21/2013 2:18 PM EDT Pulse 75 05/21/2013 2:18 PM EDT Temperature 36.5 ??C (97.7 ??F) 05/21/2013 2:18 PM ED T Respiratory Rate - - Oxygen Saturation 100% 05/21/2013 2:18 PM EDT Inhaled Oxygen Concentration - - Weight 64.4 kg (142 lb) 05/21/2013 2:18 PM EDT Height 170.2 cm (5' 7) 05/21/2013 2:18 PM EDT Body Mass Index 22.24 05/21/2013 2:18 PM EDT documented in this encounter Progress Notes * Yu Mcdonough, - 05/21/2013 2:17 PM EDT PROBLEM LIST: 1. Diffuse systemic sclerosis. (A) Initially diagnosed [place] [address] Placido Lora at [facility] in [place]. Then followed by Dr. Peyton Hinton in [facility] in [place] in 04/2010. . Echo and PFTs 12/09/11 both normal. (B) Treatment in the past has included intermittent penicillamine and methotrexate, however, she has been off immunosuppressive therapy since approximately 2005. 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 (D) One visit with Dr. Ten Gonzalez in [place], [place] in late 2009. 2. Chronic kidney disease, stage III, with associated anemia. Currently followed by Dr. Sumit Sawyer in nephrology. 3. Raynaud's symptoms. 4. GERD. HPI: The patient returns for follow up of systemic sclerosis. Last seen over 1 year ago. Her Raynaud's seems a bit worse. She has more pitting in her fingertips and they are tender. 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 She has a very tender and sore area in the cuticle of her right 3rd finger. Physical exam: Gen: Patient is awake, alert [...] all of her other joints are normal. 2-3 mm open sore in the right cuticle. No surrounding erythema or drainage. Assessment/Plan: 1. 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 Sawyer Her Raynaud's is a bit worse. More pitting in her fingertips and now she has a slightly open lesionat the cuticle of the right 3rd digit. It is very painful but does not look infected. I will increase her norvasc to 10 mg daily and I filled out a MAP form for that today. I also gave her EMLA creamto help with the pain. If that does not work then we should consider nitropaste or sildenafil. She does not need any further studies from my standpoint. If she develops SOB or cough she will letme know. I discussed with her how to activate her [employer] account in order to see her medical record and communicate with us. I would like to see her back on the same day as her next Nephrology appt. I asked her to let me know when that is. documented in this encounter Plan of Treatment Upcoming Encounters Date Type Department Care Team (Late st Contact Info) Description 10/07/2024 11:30 AM EST Office Visit Dermatology at [facility] [address] [place] [address] Jo Ordaz MD [facility] [place] [address] 12/13/2024 11:30 AM EST Appointment Pulmonology at [facility] [place] [address] 12/13/2024 1:00 PM EST Office [place] [address] Kiet Pardo MD [facility] [place] [address] documented as of this encounter Visit Diagnoses Diagnosis Systemic sclerosis- Primary documented in this encounter Care Teams Blood Bank Laboratory Technician Relationship Specialty Start Date End Date Yaritza Pierre MD [address] [place] [address] PCP - General 03/27/12 11/27/18 documented as of this encounter
--- OUTSIDE RECORDS SUMMARY | 2024-09-14 13:13 | XMS_ITS | Encounter Summary ---
[place] [address] Care Team Providers Care Court Stenographer Name Role Phone Yaritza Pierre MD Primary Care Provider [phone] Encounter Details Date Type Department Care Team (Late st Contact Info) Description 03/25/2014 [place] [phone] Anne Dangelo LPN Social History Tobacco Use Types Packs/Day Years [...] encounter Miscellaneous Notes * Telephone Encounter - Anne Dangelo LPN - 03/25/2014 3:20 PM EDT I can see her at 9:30. I can not see her after her nephrology appointment. Yu Called and relayed message to Amber and she verbalized understanding. I also told Augusto to add her to the schedule. * Telephone Encounter - Anne Dangelo LPN - 03/25/2014 12:09 PM EDT Amber calls and said she has an appt tomorrow with another Dr and was wondering if she could beseen by Dr. Mcdonough after her first appt. She also has hand pain. I called and spoke with Amber and she said sheshe is having pain in both hands and was wondering if Dr. Mcdonough could refer her to see a therapist or if she could be seen tomorrow after her other appt? She said she lives far away. Amber rose fever, redness, joint swelling. This has been going on for 4 weeks it hurts her to hold a cup of coffee. She said she isn't taking anything forpain. Message forwarded to Dr. Mcdonough. documented in this encounter Plan of Treatment Upcoming Encounters Date Type Department Care Team (Late st Contact Info) Description 10/07/2024 11:30 AM EST Office Visit Dermatology at [address] [address] Jo Ordaz MD [facility] [place] [address] 12/13/2024 11:30 AM EST [place] [address] 12/13/2024 1:00 PM EST [place] [address] Kiet Pardo MD [facility] [place] [address] documented as of this encounter Visit Diagnoses Not on filedocumented in this encounter Care Teams Court Stenographer Relationship Specialty Start Date End Date Yaritza Pierre MD [address] [place] [address] PCP - General 03/27/12 11/27/18 documented as of this encounter
--- OUTSIDE RECORDS SUMMARY | 2024-09-14 13:13 | XMS_ITS | Encounter Summary ---
Author Organization [facility] [place] [address] Care Team Providers Care Edger Operator Name Role Phone Niesha Gonzalez MD Primary Care Provider [phone] Encounter Details Date Type Department Care Team (Latest Contact Info) Description 02/22/2013 7:21 PM EDT - 02/22/2013 11:59 PM EDT [place] [address] Niesha Gonzalez MD [address] [place] [address] Discharge Disposition: Home Social History Tobacco [...] the skin every 6 hours. amLODIPine (NORVASC) 2.5 mg tabletIndications:CKD (chronic kidney disease) stage 3, GFR 30-59 ml/min,Scleroderma Take 3 tablets by mouth daily. 270 tablet 3 12/06/2012 05/21/2013 esomeprazole (NEXIUM) 40 mg capsuleIndications:CKD (chronic kidney disease) stage 3, GFR 30-59 ml/min,Scleroderma,CKD (chronic kidney disease) Take 1 capsule by mouth 2 times daily. 180 capsule 3 12/06/2012 12/26/2014 fosinopril (MONOPRIL) 40 mg tabletIndications:Scle roderma,CKD (chronic kidney disease) stage 3, GFR 30-59 ml/min Take 1 tablet by mouth 2 times daily. 180 tablet 3 09/26/2012 03/26/2014 Acetaminophen 650 mg Tab Take 650 mg by mouth daily as needed. 05/18/2011 09/23/2016 documented as of this encounter Plan of Treatment Upcoming Encounters Date Type Department Care Team (Late st Contact Info) Description 10/07/2024 11:30 AM EST Office Visit Dermatology at [address] [address] Jo Ordaz MD [facility] [place] [address] 12/13/2024 11:30 AM EST Appointment [place] [address] 12/13/2024 1:00 PM EST Office [place] [address] Kiet Pardo MD [facility] [place] [address] documented as of this encounter Procedures Procedure Name Priority Date/Time Associated Diagnosis Comments HEAD MEN'S TENNIS COACH CYTOLOGY FINAL REPORT Routine 02/22/2013 8:16 PM EDT documented in this encounter Results * Weight Loss Sales Consultant Cytology Final Report (02/22/2013 8:16 PM EDT) Weight Loss Sales Consultant Cytology Final Report ? [facility] ? Provider: ?? NIESHA GONZALEZ ? Pt. Name: ?? AMBER DAWSON ? Acc #: ?[id number] ?Pt. ? Col Date: ?? 02/22/2013 ?/Sex: ?1960,(52 years),Female ? Rec Date: ?? 02/25/2013 ?LOC: ?[facility] ? CYTOPATHOLOGY: ??HEAD MEN'S TENNIS COACH ? ---Adequacy--- ? Specimen submitted is satisfactory. ? Endocervical component present. ? ---Cytopathologic Diagnosis--- ? NORMAL ? Negative for Intraepithelial Lesion or Malignancy (NILM). ? 02/27/13 ?? Screened by: ??REP ? 02/27/13 ?? Verified by: ??Proskovec, CT(ASCP), Jodi E. - Laborer [employer] ? ---Clinical Information--- ? HPV Option: ? Reflex HPV ? Preparation: ?Liquid Based Pap ? Specimen Source: ?Cervical Endocervical LBP ? LMP: ?02/08/13 ? Hormones?: ?No ? Hysterectomy?: ?No ?: ?No ?: ?No ? I.U.D.?: ?No ? Pelvic Radiation: ? No ? Prior HEAD MEN'S TENNIS COACH Therapy?: ? No ? Hist Abnl Pap/Biopsy?: ??No ? Hist of HPV Vaccine?: ?? (not provided) ? Hist of Smoking?: ? (not provided) ? Hist of NAV exposure?: ??(not provided) ? Clinical Data, Significant Therapy and Clinical Impression: ? Referring Identifier: ??[id number] ? This Pap Test has been evaluated with the assistance of the ThinPrep Pap ? Test Imaging System. ? Note: ? The Pap test is a screening test for cervical cancer with an inherent ? false-negative rate dependent upon several variables. ??For further ? information please contact the [facility] Laboratory. ? Reference: ??Jennie CS. ??Box Sorter of Pap Smear Results. ??In: ? Annelise BS, Freddy HH, ed. ??The Pap Smear. ??[place]: ??Ki, 2002: ? 71-77. [place]OR VALENC[place] 02/22/2013 8:16 PM EDT Niesha Gonzalez MD PATHOLOGY/CYTOLOGY O RDERABLES [place]OR VALENCIA documented in this encounter Visit Diagnoses Not on filedocumented in this encounter Care Teams Edger Operator Relationship Specialty Start Date End Date Niesha Gonzalez MD [address] [place] [address] PCP - General 03/27/12 11/27/18 documented as of this encounter
--- OUTSIDE RECORDS SUMMARY | 2024-09-14 13:13 | XMS_ITS | Encounter Summary ---
Author Organization [facility]ly [facility] este[place]ia [place] [id number] Care Team Providers Care E Learning Developer Name Role Phone Lilibeth Phillips MD Primary Care Provider [phone] Reason for Visit * Reason Comments Hand Pain bilateral,participat ing in shared medical for Scleroderma Encounter Details Date Type Department Care Team (Late st Contact Info) Description 01/19/2012 9:55 [place] [address] [facility] [place] [id number] Systemic sclerosis (Primary Dx); CKD (chronic kidney disease) Social History Tobacco [...] - Inhaled Oxygen Concentration - - Weight 59.5 kg (131 lb 3.2 oz) 01/19/2012 10:48 AM EST Height 170.2 cm (5' 7) 01/19/2012 10:48 AM EST Body Mass Index 20.55 01/19/2012 10:48 AM EST documented in this encounter Progress Notes * Anita Frazier R - 01/19/2012 10:58 AM EST Scleroderma Shared Medical Appointment HPI: Patient is here for follow up of systemic sclerosis, diffuse. Since last visit, no changes to her health. Kidney function remains stable. Her mcps hurt and this is chronic. 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 PROBLEM LIST: 1. Diffuse systemic sclerosis. (A) Initially diagnosed [place] [address] Placido Lora at [facility] in [place]. Then followed by Dr. Peyton Hinton in [facility] in [place] in 04/2010. . Echo and PFTs 12/09/11 both normal. (B) Treatment in the past has included intermittent penicillamine and methotrexate, however, she has been off immunosuppressive therapy since approximately 2005. 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 (D) One visit with Dr. Ten Gonzalez in [place], [place] in late 2009. 2. Chronic kidney disease, stage III, with associated anemia. Currently followed by Dr. Sumit [place] in nephrology. 3. Raynaud's symptoms. 4. GERD. PE: GEN: patient is awake and alert, in no distress HEENT: normal sclera, no oral or nasal ulcers, mucous membranes moist LYMPH: no adenopathy HEART: regular rate, no murmurs, rub or gallops LUNGS: CTA b/l JOINTS: no synovitis in the upper or lower extremities NEURO: no focal weakness SKIN SCORE: Face 2 Right dorsum hand 1 Anterior chest 1 Right forearm 1 Abdomen 1 Right upper arm 1 Left fingers 3 Left thigh 1 Left dorsum hand 1 Left lower leg 1 Left forearm 1 Left dorsum foot 1 Left upper arm 1 Right thigh 1 Right fingers 3 Right lower leg 1 Right dorsum foot 1 Total Rodnan Skin Score: 24 out of 51 A/P: Patient presents today for follow up of systemic sclerosis and participated in a shared medical appointment. I made the following recommendations: Continue checking your BP. Exercise to your ability. Please contact me if new symptoms arise. Follow-up in 3 mos. I, Anita Frazier, am acting as scribe only for and all work documented was performed by Dr. Mcdonough. documented in this encounter Plan of Treatment Upcoming Encounters Date Type Department Care Team (Late st Contact Info) Description 10/07/2024 11:30 AM EST Office Visit Dermatology at [place] [address] [place] [address] Jo Ordaz MD [facility] [place] [address] 12/13/2024 11:30 AM EST Appointment [place] [address] 12/13/2024 1:00 PM EST Office [place] [address] Kiet Pardo MD [facility] [place] [address] documented as of this encounter Visit Diagnoses Diagnosis Systemic sclerosis- Primary CKD (chronic kidney disease) Chronic kidney disease, unspecified documented in this encounter Care Teams E Learning Developer Relationship Specialty Start Date End Date Lilibeth Phillips MD [address] [place] [address] PCP - General 10/12/10 03/26/12 documented as of this encounter
--- OUTSIDE RECORDS SUMMARY | 2024-09-14 13:13 | XMS_ITS | Encounter Summary ---
Author Organization [facility] Address [facility] [place] [address] Care Team Providers Care Planogrammer Name Role Phone Yaritza Pierre MD Primary Care Provider [phone] Reason for Visit * Reason Comments Skin Check Encounter Details Date Type Department Care Team (Late st Contact Info) Description 05/21/2013 11:00 AM EDT Follow-Up Dermatology at [facility] [address] [place] [address] Yu Wilder MD [facility] [place] [address] [place] (actinic keratosis) (Primary Dx); Solar lentigo; Multiple nevi; Scleroderma Discharge Disposition: Home Social History Tobacco [...] as of this encounter Progress Notes * Lopez Mckay LPN - 05/21/2013 11:11 AM EDT DERMATOLOGY ESTABLISHED PATIENT CLINIC NOTE Date of service: 05/21/2013 Amber Wells : 1960 Provider: Yu [place] MD PROBLEM: Full skin check SKIN HISTORY: Scleroderma Lentigines Benign Nevi Sister hx melanoma HPI Amber Wells is a 53 y.o. year old female. Patient presents today for full skin exam. She has no personal history of skin cancer, however sister has had melanoma. She has no specific skin concerns at this time, she is very tanned at today's visit. No health changes, otherwise doing well. ADR: No Known Allergies ROS General: feeling [...] were not examined. Significant skin findings: A. 0.2-0.3cm scaly irregular pink papule(s) on left nasal sidewall B. 0.3-0.6cm light-brown evenly pigmented, well-demarcated macules on trunk and extremities. C. Scattered 0.3-0.5cm, medium-brown, evenly-pigmented macules and papules. All with regular pigment pattern on dermoscopy. No pigmented lesions suspicious for melanoma. D. Taut skin on face, hands, and feet. ASSESSMENT/PLAN: A. Actinic Keratosis Procedure Note: Procedure: Destruction of lesion(s) with cryotherapy. Number: 1 Location: as above Discussed procedure and expectations including risks (including risk of hypopigmentation) and benefits. Verbal consent obtained. Frozen with LN2, 15-30 second thaw time, TWICE. There were no complications; the patient tolerated the procedure well. Post-procedure expectations and wound care were reviewed. B. Lentigines, VERY tanned skin. - Discussed importance of sun protection, sun avoidance strategies, protective clothing, and sunscreen. C. Benign appearing nevi with even pigmentation and well defined margins are noted. Patient reassured. No treatment necessary. D. Findings C/W Scleroderma patient reassured. No treatment necessary at this time. RTC [address] Jimenez. Sooner PRN. Note initiated by: LOPEZ MCKAY LPN I am documenting this encounter acting as the scribe for and in the presence of Dr. [place]. Routed to physician for review and changes: Yu [place] MD Section of Dermatology [facility] documented in this encounter Plan of Treatment Upcoming Encounters Date Type Department Care Team (Late st Contact Info) Description 10/07/2024 11:30 AM EST Office Visit Dermatology at [address] [place] [address] Jo Ordaz MD [facility] [place] [address] 12/13/2024 11:30 AM EST Appointment [place] [address] 12/13/2024 1:00 PM EST Office [place] [address] Kiet Pardo MD [facility] [place] [address] documented as of this encounter Visit Diagnoses Diagnosis AK (actinic keratosis)- Primary Actinic keratosis Solar lentigo Other dyschromia Multiple nevi Benign neoplasm of skin, site unspecified Scleroderma Systemic sclerosis documented in this encounter Care Teams Planogrammer Relationship Specialty Start Date End Date Yaritza Pierre MD [address] [place] [address] PCP - General 03/27/12 11/27/18 documented as of this encounter
--- OUTSIDE RECORDS SUMMARY | 2024-09-14 13:13 | XMS_ITS | Encounter Summary ---
Author Organization [facility] [place] [address] Care Team Providers Care Marketing Financial Analyst Name Role Phone Yaritza Pierre MD Primary Care Provider [phone] Reason for Visit * Reason Onset Date Comments Other 11/23/2012 MAP-Appl to Encounter Details Date Type Department Care Team (Late st Contact Info) Description 11/23/2012 [place] [id number] Debbie Cuenca Other (MAP-Appl to ) Social [...] * Telephone Encounter - Debbie Cuenca - 11/23/2012 2:52 PM EST MARIETTA-Appl to I sent the application for Norvasc and Nexium to Sumit [place] for his signature and prescription. I will follow through with the application once everything is returned to me.[facility] [id number] documented in this encounter Plan of Treatment Upcoming Encounters Date Type Department Care Team (Late st Contact Info) Description 10/07/2024 11:30 AM EST Office Visit Dermatology at [facility] [address] [place] [address] Jo Ordaz MD [facility] [place] [address] 12/13/2024 11:30 AM EST Appointment [place] [address] 12/13/2024 1:00 PM EST Office [place] [address] Kiet Pardo MD [facility] [place] [address] documented as of this encounter Visit Diagnoses Not on filedocumented in this encounter Care Teams Marketing Financial Analyst Relationship Specialty Start Date End Date Yaritza Pierre MD [address] [place] [address] PCP - General 03/27/12 11/27/18 documented as of this encounter
--- OUTSIDE RECORDS SUMMARY | 2024-09-14 13:13 | XMS_ITS | Encounter Summary ---
[place] [address] Care Team Providers Care Web Applications Administrator Name Role Phone Lilibeth Phillips MD Primary Care Provider [phone] Encounter Details Date Type Department Care Team (Late st Contact Info) Description 12/09/2011 9:00 AM EST - 12/09/2011 11:59 PM EST Hospital Encounter Non-[place] [address] Scleroderma Social History Tobacco Use Types Packs/Day [...] Sig Dispensed Refills Start Date End Date nitroGLYcerin (NITROGLYN) 2 % ointment Place 0.5 inches onto the skin every 6 hours. esomeprazole (NEXIUM) 40 mg capsuleIndications:FAYE D (gastroesophageal reflux disease) Take 1 capsule by mouth 2 times daily. 180 capsule 3 11/03/2011 11/02/2012 amlodipine (NORVASC) 2.5 mg tabletIndications:CKD (chronic kidney disease) stage 3, GFR 30-59 ml/min,Scleroderma Take 3 tablets by mouth daily. 270 tablet 3 11/03/2011 12/06/2012 FLUoxetine (PROZAC) 20 mg capsuleIndications:Ray naud's disease Take 1 capsule by mouth daily. 30 capsule 5 10/04/2011 03/27/2012 fosinopril (MONOPRIL) 40 mg tabletIndications:Jaimie davila,CKD (chronic kidney disease) stage 3, GFR 30-59 ml/min Take 1 tablet by mouth 2 times daily. 60 tablet 11 09/28/2011 09/26/2012 Acetaminophen 650 mg Tab Take 650 mg by mouth daily as needed. 05/18/2011 09/23/2016 ALPRAZolam (XANAX) 0.5 mg tablet Take 0.5 mg by mouth 2 times daily as needed. 05/18/2011 03/27/2012 codeine 30 mg tablet Take 30-60 mg by mouth every 4 hours as needed. 03/27/2012 B Complex-Vitamin C-Folic Acid (B [id number] ACID) 1 mg capsule 1 MG = 1 Capsule(s) PO Once daily 11/23/2010 03/27/2012 documented as of this encounter Plan of Treatment Upcoming Encounters Date Type Department Care Team (Late st Contact Info) Description 10/07/2024 11:30 AM EST Office Visit Dermatology at [address] [address] Jo Ordaz MD [facility] [address] 12/13/2024 11:30 AM EST Appointment [place] [address] 12/13/2024 1:00 PM EST Office [place] [address] Kiet Pardo MD [facility] [place] [address] documented as of this encounter Procedures Procedure Name Priority Date/Time Associated Diagnosis Comments ECHOCARDIOGRAM TRANSTHORACIC Routine 12/09/2011 11:17 AM EST Scleroderma documented in this encounter Results * Echo Transthoracic (Complete) (12/09/2011 11:17 AM EST) EF 76 HEARTLAB SYSTEM Anatomical Region Laterality Modality Other 12/09/2011 Narrative 12/09/2011 11:35 AM EST Procedure: ? Transthoracic Echocardiogram Patient: ? EUNICE JAMES ?(Age): 1960(51) Med Rec#: ?[id number] ? Sex: ?F ? Site Loc: ?[facility] ? Ht / Wt: ??(cm)/(kg) ? Pt. Loc: ? Echo Lab ? BSA: ? Study Date: ?12/09/2011 ? Pt. Type: Outpatient Tape: ? Referring: Flako Pierre Referring: LILIBETH PHILLIPS D Referring: Yu Mcdonough Office Assistant: Artur Rodriguez Diagnosis: ??Shortness of breath (786.05) CPT Code(s): ??Spectral Doppler (83526), ??Echo Full (78391), ??Color Doppler (87436), Indication(s): ??Pulmonary hypertension, R/O Rhythm: SUMMARY: 1. The left ventricular chamber size is normal. Left ventricular wall thickness is normal. There is normal global left ventricular systolic function. The quantitative left ventricular ejection fraction is 76% by Ebnites's Bi-plane method. Doppler assessment is consistent with normal left sided filling pressure. 2. Right ventricular chamber size, wall thickness, and systolic function are within normal limits. 3. There is no hemodynamically significant valve disease. 4. The estimated pulmonary artery systolic pressure is 21 mmHg. 5. See remainder of report for additional findings. FINDINGS: Study Quality ?Adequate Left Ventricle ?The left ventricular chamber size is normal. ?Left ventricular wall thickness is normal. ?There is normal global left ventricular systolic function. ?The quantitative left ventricular ejection fraction is 76% by Benites's Bi-plane method. ?There are no left ventricular segmental wall motion abnormalities. ?Doppler assessment is consistent with normal left sided filling pressure. Left Atrium ?The left atrium is normal in size. Right Ventricle ?Right ventricular chamber size, wall thickness, and systolic function are within normal limits. ?The estimated pulmonary artery systolic pressure is 21 mmHg. ?The estimated right atrial pressure is 3 mmHg. Right Atrium ?The right atrium is normal in size. Aortic Valve ?The aortic valve is tricuspid. ?Systolic excursion of the aortic valve is normal. ?There is no evidence of aortic valve stenosis. ?There is no evidence of aortic regurgitation. Mitral Valve ?The mitral valve leaflets appear normal. ?There is mild (1+/4+) mitral regurgitation present. Tricuspid Valve ?The tricuspid valve is probably normal. ?There is trace tricuspid regurgitation present. Pulmonic Valve ?The pulmonic valve appears normal. Pericardium ?The pericardium appears normal and there is no evidence of a pericardial effusion. Aorta ?The aortic root is normal in size. ?The ascending aorta is normal in size. Pulmonary Artery ?The main pulmonary artery appears normal. Venous ?The inferior vena cava appears normal in size. ?There is a greater than 50% respiratory change in the inferior vena cava dimension. Misc ?Two-dimensional echo, spectral Doppler and color Doppler performed. Wall Motion: Segment Name ?Rest ? Base-Anteroseptal ?? Normal ? Base-Anterior ? Normal ? Base-Anterolateral ??Normal ? Base-Posterolateral Normal ? Base-Inferior ? Normal ? Base-Inferoseptal ?? Normal ? Mid-Anteroseptal ?Normal ? Mid-Anterior ?Normal ? Mid-Anterolateral ?? Normal ? Mid-Posterolateral ??Normal ? Mid-Inferior ?Normal ? Mid-Inferoseptal ?Normal ? [place]-Septal ? Normal ? [place]-Anterior ? Normal ? [place]-Lateral ?Normal ? [place]-Inferior ? Normal ? [place]-Tip ?Normal ? Chambers ?Value ?Units (Range) ? LV EF Est ? 76 ? % (55 to 80) ? EF ??Bi-p Simp ? 76 ? % (55 to 80) ? IVSd 2D ? 1 ?cm ? LVIDd 2D ?4.5 ?cm ? PWd 2D ?0.9 ?cm ? LVIDs 2D ?2.6 ?cm ? LVFS 2D ? 42 ? % ? LA area ? 15 ? cm2 (<21) ? RA area ? 14 ? cm2 (<18) ? Ao root ? 3.1 ?cm (2.1 to 3.6) ? Asc Ao ?3.3 ?cm (2 to 3.5) ? Pr Ao Arch ?2.5 ?cm (1 to 3.4) ? Mitral Valve ?Value ?Units (Range) ? E peak ?0.93 ? m/sec ? E/A ratio ? 1.5 ?ratio ? MVDT ?229 ?msec ? E1 ?0.12 ? m/sec ? E/E1 ?7.8 ?ratio ? Tricuspid/Pulmonic Valves ?Value ?Units (Range) ? TR peak elliott ? 2.2 ?m/sec ? RAP ? 3 ?mmHg ? RVSP/PASP ? 21 ? mmHg ? This report has been electronically signed by: Marco A [place] MD ? 12/09/2011 11:34:41 Images reviewed and interpretation verified [facility] Cardiac Ultrasound Laboratory Procedure Note Marco A [place] MD - 12/09/2011 Procedure: Transthoracic Echocardiogram Patient: EUNICE LAWSON(Age): 1960(51) Med Rec#: [id number] Sex: F Site Loc: [facility] Ht / Wt: (cm)/(kg) Pt. Loc: Echo Lab BSA: Study Date: 12/09/2011 Pt. Type: Outpatient Tape: Referring: Flako Pierre Referring: LILIBETH PHILLIPS D Referring: Yu Mcdonough Office Assistant: Artur Rodriguez Diagnosis: Shortness of breath (786.05) CPT Code(s): Spectral Doppler (74709), Echo Full (94402), Color Doppler (62140), Indication(s): Pulmonary hypertension, R/O Rhythm: SUMMARY: 1. The left ventricular chamber size is normal. Left ventricular wall thickness is normal. There is normal global left ventricular systolic function. The quantitative left ventricular ejection fraction is 76% by Benites's Bi-plane method. Doppler assessment is consistent with normal left sided filling pressure. 2. Right ventricular chamber size, wall thickness, and systolic function are within normal limits. 3. There is no hemodynamically significant valve disease. 4. The estimated pulmonary artery systolic pressure is 21 mmHg. 5. See remainder of report for additional findings. FINDINGS: Study Quality Adequate Left Ventricle The left ventricular chamber size is normal. Left ventricular wall thickness is normal. There is normal global left ventricular systolic function. The quantitative left ventricular ejection fraction is 76% by Benites's Bi-plane method. There are no left ventricular segmental wall motion abnormalities. Doppler assessment is consistent with normal left sided filling pressure. Left Atrium The left atrium is normal in size. Right Ventricle Right ventricular chamber size, wall thickness, and systolic function are within normal limits. The estimated pulmonary artery systolic pressure is 21 mmHg. The estimated right atrial pressure is 3 mmHg. Right Atrium The right atrium is normal in size. Aortic Valve The aortic valve is tricuspid. Systolic excursion of the aortic valve is normal. There is no evidence of aortic valve stenosis. There is no evidence of aortic regurgitation. Mitral Valve The mitral valve leaflets appear normal. There is mild (1+/4+) mitral regurgitation present. Tricuspid Valve The tricuspid valve is probably normal. There is trace tricuspid regurgitation present. Pulmonic Valve The pulmonic valve appears normal. Pericardium The pericardium appears normal and there is no evidence of a pericardial effusion. Aorta The aortic root is normal in size. The ascending aorta is normal in size. Pulmonary Artery The main pulmonary artery appears normal. Venous The inferior vena cava appears normal in size. There is a greater than 50% respiratory change in the inferior vena cava dimension. Misc Two-dimensional echo, spectral Doppler and color Doppler performed. Wall Motion: Segment Name Rest Base-Anteroseptal Normal Base-Anterior Normal Base-Anterolateral Normal Base-Posterolateral Normal Base-Inferior Normal Base-Inferoseptal Normal Mid-Anteroseptal Normal Mid-Anterior Normal Mid-Anterolateral Normal Mid-Posterolateral Normal Mid-Inferior Normal Mid-Inferoseptal Normal [place]-Septal Normal [place]-Anterior Normal [place]-Lateral Normal [place]-Inferior Normal [place]-Tip Normal Chambers Value Units (Range) LV EF Est 76 % (55 to 80) EF Bi-p Simp 76 % (55 to 80) IVSd 2D 1 cm LVIDd 2D 4.5 cm PWd 2D 0.9 cm LVIDs 2D 2.6 cm LVFS 2D 42 % LA area 15 cm2 (<21) RA area 14 cm2 (<18) Ao root 3.1 cm (2.1 to 3.6) Asc Ao 3.3 cm (2 to 3.5) Pr Ao Arch 2.5 cm (1 to 3.4) Mitral Valve Value Units (Range) E peak 0.93 m/sec E/A ratio 1.5 ratio MVDT 229 msec E1 0.12 m/sec E/E1 7.8 ratio Tricuspid/Pulmonic Valves Value Units (Range) TR peak elliott 2.2 m/sec RAP 3 mmHg RVSP/PASP 21 mmHg This report has been electronically signed by: Marco A [place] MD 12/09/2011 11:34:41 Images reviewed and interpretation verified [facility] Cardiac Ultrasound Laboratory Flako Pierre MD ECHO ORDERABLES documented in this encounter Visit Diagnoses Diagnosis Scleroderma Systemic sclerosis documented in this encounter Care Teams Web Applications Administrator Relationship Specialty Start Date End Date Lilibeth Phillips MD [address] [place] [address] PCP - General 10/12/10 03/26/12 documented as of this encounter
--- OUTSIDE RECORDS SUMMARY | 2024-09-14 13:13 | XMS_ITS | Encounter Summary ---
Author Organization Formerly [facility] [place] [address] Care Team Providers Care Dormitory Counselor Name Role Phone Yaritza Pierre MD Primary Care Provider [phone] Reason for Visit * Reason Onset Date Comments Other 06/14/2013 MAP-Dosage keenan e form to Co Encounter Details Date Type Department Care Team (Late st Contact Info) Description 06/14/2013 [place]phone [place] [phone] Debbie Cuenca Other (MAP-Dosage change form to Co) Social History Tobacco Use Types [...] * Telephone Encounter - Debbie Cuenca - 06/14/2013 10:03 AM EDT MAP-Dosage change form to Co I received the Medicine Change Request Form and prescription for a 90-day supply of [id number] onedaily. I faxed them to [facility]. documented in this encounter Plan of Treatment Upcoming Encounters Date Type Department Care Team (Late st Contact Info) Description 10/07/2024 11:30 AM EST Office Visit Dermatology at [facility] [address] [place] [address] Jo Ordaz MD [facility] [place] [address] 12/13/2024 11:30 AM EST Appointment [place] [phone] 12/13/2024 1:00 PM EST Office [place] [address] Kiet Pardo MD [facility] [place] [address] documented as of this encounter Visit Diagnoses Not on filedocumented in this encounter Care Teams Dormitory Counselor Relationship Specialty Start Date End Date Yaritza Pierre MD [address] [place] [address] PCP - General 03/27/12 11/27/18 documented as of this encounter
--- OUTSIDE RECORDS SUMMARY | 2024-09-14 13:13 | XMS_ITS | Encounter Summary ---
Author Organization [facility] [place] [address] Care Team Providers Care Lens Grinding Machine Operator Name Role Phone Yaritza Pierre MD Primary Care Provider [phone] Reason for Visit * Reason Onset Date Comments Other 01/16/2014 MAP-Appl to pt Encounter Details Date Type Department Care Team (Late st Contact Info) Description 01/16/2014 Telephone [place] [phone] Debbie Cuenca Other (MAP-Appl to pt) Social History Tobacco Use Types Packs/Day Years [...] * Telephone Encounter - Debbie Cuenca - 01/16/2014 2:25 PM EST MAP-Appl to pt Per request from pt for refill of Norvasc and Nexium-Found not able to order refills today. Need new annual appl for Nexium. Norvasc no longer on Free pgm. I sent ltr w/Rx Outreach info (mail order pharm for Norvasc) and the application for Nexium to Ms. Wells for her to complete, sign, and return to me with proof of income. I will follow through withthe application once everything is returned to me.[id number] documented in this encounter Plan of Treatment Upcoming Encounters Date Type Department Care Team ([facility] st Contact Info) Description 10/07/2024 11:30 AM EST Office Visit Dermatology at [facility] [address] [place] [address] Jo Ordaz MD [facility] [place] [address] 12/13/2024 11:30 AM EST Appointment [place] [phone] 12/13/2024 1:00 PM EST Office [place] [phone] Kiet Pardo MD [facility] [place] [address] documented as of this encounter Visit Diagnoses Not on filedocumented in this encounter Care Teams Lens Grinding Machine Operator Relationship Specialty Start Date End Date Yaritza Pierre MD [address] [place] [address] PCP - General 03/27/12 11/27/18 documented as of this encounter
--- OUTSIDE RECORDS SUMMARY | 2024-09-14 13:13 | XMS_ITS | Encounter Summary ---
Author Organization [facility] Address [facility] [place] [address] Care Team Providers Care Lapidary Apprentice Name Role Phone Yaritza Pierre MD Primary Care Provider [phone] Reason for Visit * Reason Comments Chronic Kidney Disease Encounter Details Date Type Department Care Team (Latest Contact Info) Description 09/26/2012 10:10 AM EST Office Visit [place] [address] Vasquez Melchor MD [facility] [place] [address] B, Nurse Clinician None Scleroderma; CKD (chronic kidney disease) stage 3, GFR 30-59 ml/min; CKD (chronic kidney disease) stage 4, GFR 15-29 ml/min; Knee pain, bilateral Discharge Disposition: Home Social History Tobacco Use [...] Sign Reading Time Taken Comments Blood Pressure 112/76 09/26/2012 10:22 AM EST Pulse 76 09/26/2012 10:22 AM EST Temperature - - Respiratory Rate - - Oxygen Saturation - - Inhaled Oxygen Concentration - - Weight 64.2 kg (141 lb 9.6 oz) 09/26/2012 10:22 AM EST Height 170.2 cm (5' 7) 09/26/2012 10:22 AM EST Body Mass Index 22.18 09/26/2012 10:22 AM EST documented in this encounter Patient Instructions * Patient Instructions* Wendy Albarado RN - 09/26/2012 11:00 AM EST Try a knee brace. Hiking poles. We will send the note to the photographer's assistant. documented in this encounter Progress Notes * Wendy Albarado RN - 10/05/2012 11:07 AM ESTAddended by: WENDY ALBARADO on: 10/05/2012 Modules accepted: Orders * Wendy Albarado RN - 10/05/2012 10:[address] Melchor: pth is high, check 25 oh vit d and correct if low, if normal, can start calcitriol qod * Vasquez Melchor MD - 09/26/2012 10:18 AM EST [facility] [address] [place] [address] Reason for Clinic Visit: Systems Review and CKD management. Seen in clinic with: Pallavi Albarado RN, Continuing Loading Machine Tool Setter (CCM) CKD related to: scleraderma crisis History of Present Illness: Last seen in March 2012. Since then she has found she is able to decrease the tylenol because the pain is less. Norvasc is not working for her finger pain very well. She is using the nitro. Keeps her hands warm She complains of knee pain on the return fromr hiking [place] of [facility] and has noticed painin her knees with strenous activities. 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 Last dialysis was in at [facility] (dialyzed for 2 months). Education: 3-4 gram sodium diet discusssed, low potassium diet discussed Anticipated Renal Replacement Therapy Plan: Was on HD through tunnelled catheter from April 27 to [address] [facility] for the last 3 weeks of dialysis. Transplant Evaluation: will trend Creatinine levels to determine if this is necessary Review of Systems: Sign/Symptom Comments Activity level/fatigue: Yes energy is great. Knees are sore after trying to hike. Change in sleep patterns: No problem Nocturia: One Appetite changes: I'm always hungry Food aversions: No Nausea: None since restarting the nexium twice a day. Vomiting: None Bowels: No Diarrhea/Constipation Edema: Trace on left today Shortness of breath: None Orthopnea/PND: No PND; 1 pillow. Very dry throat at night and makes it hard to breath. She prophylaxis with cough drops Muscle Cramping: No Cold intolerance: Yes all the time. Itching: No Bruising/bleeding: No Mental Status Changes: No Recent Home Blood Pressure Control: 120/80 in the am. At night 135/83 Recent Lipid Management: None Additional [facility] Comments: How's your health been in the last 4 weeks: Poor Fair Good Very Good Excellent Stiffness in her hands is about the same. TripLingo is not working well for the pain in her fingers. She is using the nitro ointment for this. She has dual citizenship in [place] and [place] She is seeing photographer's assistant at [facility] for the scleroderma management. Hepatitis B Status: Serum Testing Date of Testing Results Hep B sAb/Hep B sAg not tested Vaccination Status: Unknown Fistula Date/Type of Initial Access/Surgeon: Had tunnelled dialysis catheter removed at [facility] IR in June 2010. No plans for fistula at this time. Kidney function has been stable and slowly improving PMH: Patient Active Problem List Diagnoses Code ??? Anemia in CKD (chronic kidney disease) 285.21N ??? CKD (chronic kidney disease) stage 4, GFR 15-29 ml/min 585.4F ??? GERD (gastroesophageal reflux disease) 530.81S ??? Scleroderma 710.1C ??? Raynaud's disease 443.0A No Known Allergies Outpatient prescriptions marked as taking for the 09/26/12 encounter (Office Visit) with INÉS MELCHOR Medication Sig Dispense Refill ??? Cholecalciferol, Vitamin D3, (VITAMIN D) 1,000 unit Cap Take 1 tablet by mouth daily. ??? amlodipine (NORVASC) 2.5 mg tablet Take [...] 1,200 Int'l Units by mouth daily. ??? nitroGLYcerin (NITROGLYN) 2 % ointment Place 0.5 inches onto the skin every 6 hours. Physical Exam: BP 112/76 Pulse 76 Ht 170.2 cm (5' 7) Wt 64.229 kg (141 lb 9.6 oz) BMI 22.18 kg/m2 If exam WNL X Abnormal findings General appearance Nad Head Facial featurs of scleroderma Eyes Phani, op moist, no pharyngitis ENT No pharyngitis or dryness Neck Supple, jvp normal Respiratory clear COR/Vascular rrr Abdomen Soft and nt, no bruits Skin Tight around hands arms and face Neuro Mentation clear, nonfocal motor Asterixis none Extremities Typical ischemic changes hands, loss of definition and tightness of skin, pail nails, cap drop out, no preitb edema, no knee effusions, +clicking both knees, l>r c/w djd and some cartilage injury Other Labs Results for AMBER DAWSON ( ) as of 09/26/2012 15:57 Ref. Range 09/28/2011 09:10 12/14/2011 00:00 03/27/2012 09:35 09/26/2012 09:22 WBC Latest Range: 4.0-10.0 x10(3)/mcL 8.6 7.3 9.1 RBC Latest Range: 3.93-5.22 x10(6)/mcL 3.91 (L) 3.96 4.38 Hemoglobin Latest Range: 11.2-15.7 gm/dL 12.5 12.8 (External Lab) 12.7 14.0 Hematocrit Latest Range: 34.0-45.0 % 37.6 38.9 (External Lab) 37.8 42.2 MCV Latest Range: 79.0-94.0 fL 96.2 (H) 95.5 (H) 96.3 (H) MCH Latest Range: 26.6-32.2 pg 32.0 32.1 32.0 MCHC Latest Range: 32.0-36.5 gm/dL 33.2 33.6 33.2 RDWSD Latest Range: 35.0-46.0 fL 45.3 46.2 (H) 46.7 (H) RDWCV Latest Range: 10.9-14.4 % 13.1 13.3 13.2 Platelets Latest Range: 145-370 x10(3)/mcL 344 305 349 MPV Latest Range: 9.0-12.0 fL 10.5 10.5 10.8 Neutr Abs (ANC) Latest Range: 1.50-6.30 x10(3)/mcL 6.35 (H) 5.52 6.69 (H) Neutrophils % Latest Range: 34.0-71.0 % 73.9 (H) 75.3 (H) 73.8 (H) Immature Gran % Latest Range: 0.00-0.66 % 0.20 0.10 0.20 Lymphocytes % Latest Range: 19.0-53.0 % 17.5 (L) 17.0 (L) 17.5 (L) Monocytes % Latest Range: 4.0-13.0 % 7.0 6.0 6.3 Eosinophils % Latest Range: 0.0-7.0 % 0.9 1.1 1.8 Basophils % Latest Range: 0.0-2.0 % 0.5 0.5 0.4 Yessica Gran Abs Latest Range: 0.00-0.05 x10(3)/mcL 0.02 0.01 0.02 Lymphocytes Abs Latest Range: 1.0-3.6 x10(3)/mcL 1.5 1.2 1.6 Monocyte Abs Latest Range: 0.2-1.0 x10(3)/mcL 0.6 0.4 0.6 Eosinophils Abs Latest Range: 0.0-0.5 x10(3)/mcL 0.1 0.1 0.2 Basophils Abs Latest Range: 0.0-0.2 x10(3)/mcL 0.0 0.0 0.0 Ferritin Latest Range: 15-150 ng/mL 27 Iron Latest Range: 30-150 mcg/dL 78 TIBC Latest Range: 250-450 mcg/dL 227 (L) Iron Saturation Latest Range: 20-50 % 34 Sodium Latest Range: 135-145 mmol/L 139 139 (External Lab) 137 136 Potassium Latest Range: 3.5-5.0 mmol/L 4.2 4.5 (External Lab) 4.6 4.6 Chloride Latest Range: 98-107 mmol/L 105 104 (External Lab) 105 104 CO2 Latest Range: 22-31 mmol/L 24 26 (External Lab) 24 25 Anion Gap Latest Range: 5-15 mmol/L 10 8 7 BUN Latest Range: 8-18 mg/dL 28 (H) 33 (External Lab) 28 (H) 30 (H) Creatinine Latest Range: 0.70-1.20 mg/dL 1.66 (H) 1.6 (External Lab) 1.56 (H) 1.44 (H) Estimated GFR Latest Range: >=60 33 (L) 34.12 (External Lab) 35 (L) 38 (L) Glucose Lvl No range found 73 147 (External Lab) 127 88 Calcium Latest Range: 8.5-10.5 mg/dL 9.6 8.7 (External Lab) 8.9 9.4 Phosphorus Latest Range: 2.5-4.5 mg/dL 2.6 3.3 (External Lab) 2.6 2.7 Albumin Latest Range: 3.2-5.2 gm/dL 4.8 4.4 4.5 PTH Latest Range: 15-65 pg/mL 97 (H) 136 (H) 126 (H) EF No range found Problem/Goal/Assessment/Plan: Problem: Chronic Kidney Disease Goal: Reduce rate of progression Education for CKD Stage specific issues Assessment: stable/improved creatinine. Estimated GFR (MDRD): 38 ml/min/1.73m2 CKD Stage 3 - Plan: Cont current rx and f/u Problem: Management of Anemia related to Chronic Kidney Disease (CKD) Goal: Hgb 9-10.5 g/dl Assessment: Today's Results Hgb - 14.0 Receiving erythropoetic stimulating agent? No longer needed (off since 2009) Last IV Iron replacement therapy (Venofer), Date : Plan: no need for matthew at this time Problem: Hypertension Goal: 130/80 mmHg Assessment: BP today - 112/76 Plan: well controlled on current rx which includes an acei Problem: Proteinuria Goal: Alb:Cr ratio < 30mcg/mg Assessment: Today's results Alb:Cr ratio 150 Plan: microalbuminuria, daniel recheck next visit Problem: Bone Disease Goal: Stage 3 PTH: 35-70 pg/ml Phos 2.7-4.6 Ca 8.5-10.5mg/dl Stage 4 PTH: 70-110 pg/ml Phos 2.7-4.6 Ca 8.5-10.5mg/dl Stage 5 PTH: 150-300 pg/ml Phos 3.5-5.5 Ca 8.5-10.5mg/dl Assessment: PTH today -126 (pt not taking calcitriol) Phos today -2.7 (pt not taking binders) Calcium today - 9.4 Plan: above goal. Check 25 oh vit D and correct if low. If normal, add calcitriol 0.25mcg qod. Problem: Nutrition Goal: Albumin > 4.0gm/dl, Maintain ideal body weight Assessment: Albumin today - 4.5 Plan: Meeting goal on current diet Problem: Patient does not have Diabetes Goal: HA1C < 7.0% Assessment: Random Glucose - 88 Plan: no DM. Monitor for glucose intolerance. Problem: Dyslipidemia Goal: LDL < 100 mg/dl Assessment: LDL not checked today - Plan: check fasting profile next visit. Problem: bilateral knee pain. Worse with hiking. Exam notable for some clicking on flexion/ext withrotation c/w some cartilage injury, left > right. Doubt inflammatory. She is followed by rheum and will check with them regarding films? Suggested hiking poles and elastic braces. Summary: stable ckd related to scleroderma with previous renal crisis. Return to clinic: 6 months (try to schedule Rheum and CKD clinic on the same day) Patient is up to date on flu shot. documented in this encounter Plan of Treatment Upcoming Encounters Date Type Department Care Team (Late st Contact Info) Description 10/07/2024 11:30 AM EST Office Visit Dermatology at [place] [address] [place] [address] Jo Ordaz MD [facility] [place] [address] 12/13/2024 11:30 AM EST [place] [address] 12/13/2024 1:00 PM EST [place] [address] Kiet Pardo MD [facility] [place] [address] documented as of this encounter Visit Diagnoses Diagnosis Scleroderma Systemic sclerosis CKD (chronic kidney disease) stage 3, GFR 30-59 ml/min Chronic kidney disease, Stage III (moderate) CKD (chronic kidney disease) stage 4, GFR 15-29 ml/min Chronic kidney disease, Stage IV (severe) Knee pain, bilateral Pain in joint, lower leg documented in this encounter Care Teams Lapidary Apprentice Relationship Specialty Start Date End Date Yaritza Pierre MD [address] [place] [address] PCP - General 03/27/12 11/27/18 documented as of this encounter
--- OUTSIDE RECORDS SUMMARY | 2024-09-14 13:13 | XMS_ITS | Encounter Summary ---
[place] [address] Care Team Providers Care Ceramic Tile Installer Name Role Phone Lilibeth Phillips MD Primary Care Provider [phone] Reason for Visit * Reason Onset Date Comments Other 12/20/2011 lab results Encounter Details Date Type Department Care Team (Late st Contact Info) Description 12/20/2011 Telephone [place] [phone] Randa Garcia RN NEPHROLOGY HYPERTENSION Other (lab results) Social History Tobacco Use Types Packs/Day Years [...] Telephone Encounter - Randa Garcia RN - 12/20/2011 3:18 PM EST Telephone call received from pt inquiring about her recent lab results. S/O: Results for AMBER DAWSON ( ) Ref. Range 09/28/2011 09:10 12/14/2011 00:00 Hemoglobin Latest Range: 12.0-16.0 12.5 12.8 (External Lab) Hematocrit Latest Range: 36.0-46.0 37.6 38.9 (External Lab) Results for AMBER DAWSON ( ) Ref. Range 09/28/2011 09:10 12/14/2011 00:00 Sodium Latest Range: 137-147 139 139 (External Lab) Potassium Latest Range: 3.4-5.3 4.2 4.5 (External Lab) Chloride Latest Range: 99-108 105 104 (External Lab) CO2 Latest Range: 22-29 24 26 (External Lab) Anion Gap Latest Range: 5-15 mmol/L 10 BUN Latest Range: 4-21 28 (H) 33 (External Lab) Creatinine Latest Range: 0.5-1.1 1.66 (H) 1.6 (External Lab) Estimated GFR No range found 33 (L) 34.12 (External Lab) Glucose Lvl No range found 73 147 (External Lab) Calcium Latest Range: 8.7-10.7 9.6 8.7 (External Lab) Phosphorus Latest Range: 2.5-4.9 2.6 3.3 (External Lab) Amber states she feels well with good energy. A: Stable renal function. P: Plan to follow up again with labs in clinic in 2-[address] Sawyer. documented in this encounter Plan of Treatment Upcoming Encounters Date Type Department Care Team (Late st Contact Info) Description 10/07/2024 11:30 AM EST Office Visit Dermatology at [facility] [address] [place] [address] Jo Ordaz MD [facility] [place] [address] 12/13/2024 11:30 AM EST [place] [address] 12/13/2024 1:00 PM EST [place] [address] Kiet Pardo MD [facility] [place] [address] documented as of this encounter Visit Diagnoses Not on filedocumented in this encounter Care Teams Ceramic Tile Installer Relationship Specialty Start Date End Date Lilibeth Phillips MD [address] [place] [address] PCP - General 10/12/10 03/26/12 documented as of this encounter
--- OUTSIDE RECORDS SUMMARY | 2024-09-14 13:13 | XMS_ITS | Encounter Summary ---
Author Organization [facility] [place] [address] Care Team Providers Care Apprentice/Lineman Name Role Phone Lilibeth Phillips MD Primary Care Provider [phone] Encounter Details Date Type Department Care Team (Latest Contact Info) Description 12/09/2011 10:30 AM EST Procedure [place] [address] Scleroderma (Primary Dx) Social History Tobacco Use Types [...] as of this encounter Progress Notes * Amrik Mullins MD - 12/13/2011 4:29 PM EST See separate interpretation. documented in this encounter Plan of Treatment Upcoming Encounters Date Type Department Care Team (Late st Contact Info) Description 10/07/2024 11:30 AM EST Office Visit Dermatology at [facility] [address] [place] [address] Jo Ordaz MD [facility] [place] [address] 12/13/2024 11:30 AM EST Appointment [place] [address] 12/13/2024 1:00 PM EST Office Visit [place] [address] Kiet Pardo MD [facility] [place] [address] documented as of this encounter Procedures Procedure Name Priority Date/Time Associated Diagnosis Comments PFT SCAN Routine 12/09/2011 documented in this encounter Results * Scan Doc: PFT (12/09/2011) Yu Mcdonough DO MEDIA MGR SCAN E XT ORDR/RSLT documented in this encounter Visit Diagnoses Diagnosis Scleroderma- Primary Systemic sclerosis documented in this encounter Care Teams Apprentice/Lineman Relationship Specialty Start Date End Date Lilibeth Phillips MD [address] [place] [address] PCP - General 10/12/10 03/26/12 documented as of this encounter
--- OUTSIDE RECORDS SUMMARY | 2024-09-14 13:13 | XMS_ITS | Encounter Summary ---
Author Organization [facility] [place] [address] Care Team Providers Care Credit Compliance Officer Name Role Phone Lilibeth Phillips MD Primary Care Provider [phone] Reason for Visit * Reason Onset Date Comments Medication Refill 03/20/2012 Encounter Details Date Type Department Care Team (Late st Contact Info) Description 03/20/2012 Refill Nephrology [place] [address] Vasquez Hunter MD [facility] [place] [address] Social History Tobacco Use Types Packs/Day Years [...] [facility] [address] [place] [address] Jo Ordaz MD [facility] DERMAT[facility] [place] [id number] 12/13/2024 11:30 AM EST Appointment Pulmonology at [place] [phone] 12/13/2024 1:00 PM EST Office Visit Rheumatology at [place] [phone] Kiet Pardo MD [facility] [place] [address] documented as of this encounter Visit Diagnoses Not on filedocumented in this encounter Care Teams Credit Compliance Officer Relationship Specialty Start Date End Date Lilibeth Phillips MD [address] [place] [address] PCP - General 10/12/10 03/26/12 documented as of this encounter
--- OUTSIDE RECORDS SUMMARY | 2024-09-14 13:13 | XMS_ITS | Encounter Summary ---
Author Organization [facility] Address [facility] [place] [address] Care Team Providers Care Machine Maintenance Mechanic Name Role Phone Lilibeth Phillips MD Primary Care Provider [phone] Encounter Details Date Type Department Care Team (Late Contact Info) Description 03/23/2012 Orders Only [place] [address] Sumit Sawyer MD [facility] [place] [address] CKD (chronic kidney disease) stage 4, GFR 15-29 ml/min (Primary Dx); Anemia in CKD (chronic kidney disease) Social History Tobacco [...] Office Visit Dermatology at [facility] [address] [place] [address] Jo Ordaz MD [facility] [place] [address] 12/13/2024 11:30 AM EST [place] [address] 12/13/2024 1:00 PM EST [place] [address] Kiet Pardo MD [facility] [place] [address] documented as of this encounter Results * (ABNORMAL) CBC (with Diff) (03/27/2012 9:35 AM EDT) White Blood Cell 7.3 4.0 - 10.0 x10(3)/mc L CERNER MILLENNIUM Red Blood Cell 3.96 3.93 - 5.22 x10(6)/mc L CERNER MILLENNIUM Hemoglobin 12.7 11.2 - 15.7 gm/dL CERNER MILLENNIUM Hematocrit 37.8 34.0 - 45.0 % CERNER MILLENNIUM Mean Cell Volume 95.5(H) 79.0 - 94.0 fL CERNER MILLENNIUM Mean Cell Hemoglobin 32.1 26.6 - 32.2 pg CERNER MILLENNIUM Mean Cell Hemoglobin Concentration 33.6 32.0 - 36.5 gm/dL CERNER MILLENNIUM Platelet 305 145 - 370 x10(3)/mc L CERNER MILLENNIUM RDW Standard Deviation 46.2(H) 35.0 - 46.0 fL CERNER MILLENNIUM RDW coefficient of variation 13.3 10.9 - 14.4 % CERNER MILLENNIUM Mean Platelet Volume 10.5 9.0 - 12.0 fL CERNER MILLENNIUM Blood specimen (specimen) 03/27/2012 9:35 AM EDT 03/27/2012 9:44 AM EDT Narrative Resulting Agency Comment Spec In Lab Sumit Sawyer MD HEMATOLOGY ORDERABL ES CERDONNIE MILLENNIUM * Albumin Level (03/27/2012 9:35 AM EDT) Albumin 4.4 3.2 - 5.2 gm/dL CERNER MILLENNIUM Blood specimen (specimen) 03/27/2012 9:35 AM EDT 03/27/2012 9:44 AM EDT Narrative Resulting Agency Comment Spec In Lab Sumit Sawyer MD CHEMISTRY ORDERABLE S Performing Organization Address City/[facility]/ZIP Co de Phone Number CERNER MILLENNIUM * (ABNORMAL) Basic Metabolic Panel (non-fasting) (03/27/2012 9:35 AM EDT) Glucose 127 60 - 199 mg/dL CERNER MILLENNIUM Comment:Diabetes: >=200 mg/d L plus symptoms Blood Urea Nitrogen 28(H) 8 - 18 mg/dL CERNER MILLENNIUM Creatinine 1.56(H) 0.70 - 1.20 mg/dL CERNER MILLENNIUM Sodium 137 135 - 145 mmol/L CERNER MILLENNIUM Potassium 4.6 3.5 - 5.0 mmol/L CERNER MILLENNIUM Comment: [...] - 31 mmol/L CERNER MILLENNIUM Anion Gap 8 5 - 15 mmol/L CERNER MILLENNIUM Calcium 8.9 8.5 - 10.5 mg/dL CERNER MILLENNIUM Est Glomerular Filtration Rate 35(L) >=60 CERNER MILLENNIUM Comment: The National Kidney Disease Education Program (NKDEP) has recommended all laboratories report estimated GFR (eGFR) along with plasma creatinine measurements to assist you with recognition of early kidney disease. Caveats: ??Plasma creatinine should be at steady-state (unchanged within the past week). For patients multiply eGFR by 1.2. The MDRD equation was developed using patients between the ages of 18 and 70 years. ?? The MDRD equation has not been validated for patients < 18 years of age and should not be used to assess renal function in the pediatric population. ??The MDRD eGFR equation will also overestimate the true GFR of patients above the age of 70. ??This overestimation is variable but increases with age. At present, NKDEP does NOT recommend using the MDRD equation for drug dosing purposes and pharmacists should continue to use their current dosing methods. In addition, numerical eGFR values greater than 60 ml/min/1.73 square meters should be treated as > 60, and not an exact number due to greater inaccuracies at these higher values. Per NKDEP, they classify normal renal function as any GFR >60ml/min/1.73 square meters; chronic kidney disease when GFR <60, and renal failure when GFR <15. ??This calculation may not be valid for patients with atypical muscle mass (very lean or obese), acute renal failure, and in patients with diabetic kidney disease. References: http://nkdep.nih.gov/resources/NKDEP_Suggestn4Labs_0606_508.pdf http://www.kidney.org/professionals/kls/pdf/faq_gfr.pdf Brittany K, Lisa NA, Danuta AK, Bernardino TS, Carolina AD, Sandra FRANC. Relative performance of the MDRD and CKD-EPI equations for estimating glomerular filtration rate among patients with varied clinical presentations. Clin J Am Soc Nephrol;6:1963-72. Blood specimen (specimen) 03/27/2012 9:35 AM EDT 03/27/2012 9:44 AM EDT Narrative Resulting Agency Comment Spec In Lab Sumit Sawyer MD CHEMISTRY ORDERABLE S [facility] * Phosphorus (03/27/2012 9:35 AM EDT) Phosphorus 2.6 2.5 - 4.5 mg/dL [facility] Blood specimen (specimen) 03/27/2012 9:35 AM EDT 03/27/2012 9:44 AM EDT Narrative Resulting Agency Comment Spec In Lab Sumit Sawyer MD CHEMISTRY ORDERABLE S Performing Organization Address City/[facility]/ZIP Co de Phone Number SALVADOR VALENCIA * (ABNORMAL) PTH (03/27/2012 9:35 AM EDT) Parathyroid Hormone 136(H) 15 - 65 pg/mL [facility] VALENCIA Blood specimen (specimen) 03/27/2012 9:35 AM EDT 03/27/2012 9:44 AM EDT Narrative Resulting Agency Comment Spec In Lab Sumit Sawyer MD CHEMISTRY ORDERABLE S Performing Organization Address [facility] Co de Phone Number [facility]ADOR VALENCIA documented in this encounter Visit Diagnoses Diagnosis CKD (chronic kidney disease) stage 4, GFR 15-29 ml/min- Primary Chronic kidney disease, Stage IV (severe) Anemia in CKD (chronic kidney disease) Anemia in chronic kidney disease documented in this encounter Care Teams Machine Maintenance Mechanic Relationship Specialty Start Date End Date Lilibeth Phillips MD [address] [place] [address] PCP - General 10/12/10 03/26/12 documented as of this encounter
--- OUTSIDE RECORDS SUMMARY | 2024-09-14 13:13 | XMS_ITS | Encounter Summary ---
Author Organization [facility] [address] Care Team Providers Care Cutting Machine Tender Decorative Name Role Phone Yaritza Pierre MD Primary Care Provider [phone] Reason for Visit * Reason Onset Date Comments Other 02/22/2013 MAP-Refill Encounter Details Date Type Department Care Team (Late st Contact Info) Description 02/22/2013 Telephone [place] [id number] Debbie Cuenca Other (MAP-Refill) Social History Tobacco [...] * Telephone Encounter - Debbie Cuenca - 02/22/2013 11:50 AM EDT MAP-Refill Per request I called [facility] to order a 90-day supply of Norvasc. The medication will be shipped [place] 7-10 [place] [facility] [place]. I called [facility] to order a 90-day supply of Nexium. The medication will be shipped on February 23, 2013 to home in 5-7 days.[facility] [id number] documented in this encounter Plan of Treatment Upcoming Encounters Date Type Department Care Team (Late st Contact Info) Description 10/07/2024 11:30 AM EST Office Visit Dermatology at [facility] [address] [place] [address] Jo Ordaz MD [facility] [place] [address] 12/13/2024 11:30 AM EST Appointment [place] [phone] 12/13/2024 1:00 PM EST Office [place] [phone] Kiet Pardo MD [facility] [place] [address] documented as of this encounter Visit Diagnoses Not on filedocumented in this encounter Care Teams Cutting Machine Tender Decorative Relationship Specialty Start Date End Date Yaritza Pierre MD [address] [place] [address] PCP - General 03/27/12 11/27/18 documented as of this encounter
--- OUTSIDE RECORDS SUMMARY | 2024-09-14 13:13 | XMS_ITS | Encounter Summary ---
Author Organization [facility] Address [facility] [place] [address] Care Team Providers Care Halftone Operator Name Role Phone Lilibeth Phillips MD Primary Care Provider [phone] Encounter Details Date Type Department Care Team (Late Contact Info) Description 12/15/2011 External Results Nephrology [place] [address] Sumit Sawyer MD [facility] [place] [address] Social History Tobacco Use Types Packs/Day Years [...] at [facility] [address] [place] [address] Jo Ordaz MD [facility] [place] [place] [address] 12/13/2024 11:30 AM EST Appointment Pulmonology at [place] [phone] 12/13/2024 1:00 PM EST Office [place] [address] Kiet Pardo MD [facility] [place] [address] documented as of this encounter Procedures Procedure Name Priority Date/Time Associated Diagnosis Comments EXTERNAL LAB RESULTS Routine 12/14/2011 documented in this encounter Results * (ABNORMAL) External Lab Results (12/14/2011) Calcium 8.7(New Client Banking Services Clerk al Lab) 8.7 - 10.7 Phosphorus 3.3(New Client [facility]ing [facility] Clerk al Lab) 2.5 - 4.9 Glucose 147(New Client Banking Services Clerk al Lab) Blood Urea Nitrogen 33(Externa l Lab) 4 - 21 Creatinine 1.6(New Client Banking Services Clerk al Lab) 0.5 - 1.1 Est Glomerular Filtration Rate 34.12(Exte rnal Lab) Sodium 139(New Client Banking Services Clerk al Lab) 137 - 147 Potassium 4.5(New Client Banking Services Clerk al Lab) 3.4 - 5.3 Chloride 104(New Client Banking Services Clerk al Lab) 99 - 108 Carbon Dioxide 26(Externa l Lab) 22 - 29 Hemoglobin 12.8(Exter nal Lab) 12.0 - 16.0 Hematocrit 38.9(Exter nal Lab) 36.0 - 46.0 Historical Provider CHEMISTRY ORDERAB LES documented in this encounter Visit Diagnoses Not on filedocumented in this encounter Care Teams Halftone Operator Relationship Specialty Start Date End Date Lilibeth Phillips MD [address] [place] [address] PCP - General 10/12/10 03/26/12 documented as of this encounter
--- OUTSIDE RECORDS SUMMARY | 2024-09-14 13:13 | XMS_ITS | Encounter Summary ---
Author Organization [facility] [place] [address] Care Team Providers Care Rectifying Attendant Name Role Phone Lilibeth Phillips MD Primary Care Provider [phone] Reason for Visit * Reason Onset Date Comments Medication Refill 03/20/2012 Encounter Details Date Type Department Care Team (Late st Contact Info) Description 03/20/2012 Refill Nephrology [place] [address] Vasquez Hunter MD [facility] [place] [address] Social History Tobacco Use Types Packs/Day Years [...] at [facility] [address] [place] [address] Jo Ordaz MD [facility] DERMATOLOGY [place] [id number] 12/13/2024 11:30 AM EST Appointment Pulmonology at [place] [phone] 12/13/2024 1:00 PM EST Office Visit Rheumatology at [place] [phone] Kiet Pardo MD [facility] [place] [address] documented as of this encounter Visit Diagnoses Not on filedocumented in this encounter Care Teams Rectifying Attendant Relationship Specialty Start Date End Date Lilibeth Phillips MD [address] [place] [address] PCP - General 10/12/10 03/26/12 documented as of this encounter
--- OUTSIDE RECORDS SUMMARY | 2024-09-14 13:13 | XMS_ITS | Encounter Summary ---
Author Organization [facility] Address [facility] [place] [address] Care Team Providers Care Supervisor Electric Name Role Phone Yaritza Pierre MD Primary Care Provider Reason for Visit * Reason Comments Chronic Kidney Disease Encounter Details Date Type Department Care Team (Latest Contact Info) Description 01/02/2013 1:00 PM EST Office Visit Ne[place] [address] Sumit Sawyer MD [facility] [place] [address] A, Nurse Clinician None CKD (chronic kidney [...] Sign Reading Time Taken Comments Blood Pressure 128/80 01/02/2013 1:24 PM EST Pulse 100 01/02/2013 1:24 PM EST Temperature - - Respiratory Rate - - Oxygen Saturation - - Inhaled Oxygen Concentration - - Weight 63.9 kg (140 lb 12.8 oz) 01/02/2013 1:24 PM EST Height 170.2 cm (5' 7) 01/02/2013 1:24 PM EST Body Mass Index 22.05 01/02/2013 1:24 PM EST documented in this encounter Patient Instructions * Patient Instructions* Wendy Albarado RN - 01/02/2013 1:37 PM EST No changes at this time. documented in this encounter Progress Notes * Sumit Sawyer MD - 01/02/2013 12:55 PM EST [facility] [address] [place] [address] Reason for Clinic Visit: Systems Review and CKD management. 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 Sees rheumotolgy next month. Her fingers (especially thumbs) have been painful, but she continues to play the guitar when she can. 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 Last dialysis was in June at [facility] (dialyzed for 2 months). Education: 3-4 gram sodium diet discusssed, low potassium diet discussed Anticipated Renal Replacement Therapy Plan: Was on HD through tunnelled catheter from April 27 to July 14 at [facility] for the last 3 weeks of dialysis. Transplant Evaluation: will trend Creatinine levels to determine if this is necessary Review of Systems: Sign/Symptom Comments Activity level/fatigue: Yes energy is good, physicalyl OK emotionally spent Change in sleep patterns: No problem Nocturia: None Appetite changes: I'm always hungry Food aversions: No Nausea: None Vomiting: None Bowels: No Diarrhea/Constipation Edema: None today Shortness of breath: None Orthopnea/PND: No PND; 1 pillow Muscle Cramping: No Cold intolerance: Yes all the time Itching: No Bruising/bleeding: No Mental Status Changes: No Recent Home Blood Pressure Control: 120/80in the am. At night 135/83 Recent Lipid Management: None Additional CCM Comments: How's your health been in the last 4 weeks: Poor Fair Good Very Good Excellent Stiffness in her hands is about the same. Cristine is working well for the pain in her hands. She has dual citizenship in [place] and [place] She is seeing court commissioner [place] [facility] [place]. Hepatitis B Status: Serum Testing Date of Testing Results Hep B sAb/Hep B sAg not tested Vaccination Status: Unknown Fistula Date/Type of Initial Access/Surgeon: Had tunnelled dialysis catheter removed [place] [facility] in June 2010. No plans for fistula at this time. Kidney function has been stable and slowly improving PMH: Patient Active Problem List Diagnoses Code ??? Anemia in CKD (chronic kidney disease) 285.21 ??? CKD (chronic kidney disease) stage 4, GFR 15-29 ml/min 585.4 ??? GERD (gastroesophageal reflux disease) 530.81 ??? Scleroderma 710.1 ??? Raynaud's disease 443.0 No Known Allergies Outpatient Prescriptions Marked as Taking for the 01/02/13 encounter (Office Visit) with Sumit Sawyer MD Medication Sig Dispense Refill ??? amLODIPine (NORVASC) 2.5 mg tablet Take 3 tablets [...] skin every 6 hours. Physical Exam: BP 128/80 Pulse 100 Ht 170.2 cm (5' 7) Wt 63.866 kg (140 lb 12.8 oz) BMI 22.05 kg/m2 If exam WNL X Abnormal findings General appearance Obvious scleroderma of face Head x Eyes ENT x Neck Respiratory Clear COR/Vascular rrr Abdomen nt/nd Skin Small infarct in finger pads/painful not new or progressing Neuro x Asterixis Extremities Contractures distally in UE. Other Labs Results for AMBER DAWSON ( ) as of 01/02/2013 16:09 Ref. Range 12/14/2011 00:00 03/27/2012 09:35 09/26/2012 09:22 10/09/2012 00:00 01/02/2013 13:05 WBC Latest Range: 4.0-10.0 x10(3)/mcL 7.3 9.1 10.3 (H) RBC Latest Range: 3.93-5.22 x10(6)/mcL 3.96 4.38 4.48 Hemoglobin Latest Range: 11.2-15.7 gm/dL 12.8 (External Lab) 12.7 14.0 14.3 Hematocrit Latest Range: 34.0-45.0 % 38.9 (External Lab) 37.8 42.2 43.6 MCV Latest Range: 79.0-94.0 fL 95.5 (H) 96.3 (H) 97.3 (H) MCH Latest Range: 26.6-32.2 pg 32.1 32.0 31.9 MCHC Latest Range: 32.0-36.5 gm/dL 33.6 33.2 32.8 RDWSD Latest Range: 35.0-46.0 fL 46.2 (H) 46.7 (H) 47.3 (H) RDWCV Latest Range: 10.9-14.4 % 13.3 13.2 13.3 Platelets Latest Range: 145-370 x10(3)/mcL 305 349 351 MPV Latest Range: 9.0-12.0 fL 10.5 10.8 10.7 Neutr Abs (ANC) Latest Range: 1.50-6.30 x10(3)/mcL 5.52 6.69 (H) 7.39 (H) Neutrophils % Latest Range: 34.0-71.0 % 75.3 (H) 73.8 (H) 71.7 (H) Immature Gran % Latest Range: 0.00-0.66 % 0.10 0.20 0.20 Lymphocytes % Latest Range: 19.0-53.0 % 17.0 (L) 17.5 (L) 18.0 (L) Monocytes % Latest Range: 4.0-13.0 % 6.0 6.3 8.2 Eosinophils % Latest Range: 0.0-7.0 % 1.1 1.8 1.5 Basophils % Latest Range: 0.0-2.0 % 0.5 0.4 0.4 Yessica Gran Abs Latest Range: 0.00-0.05 x10(3)/mcL 0.01 0.02 0.02 Lymphocytes Abs Latest Range: 1.0-3.6 x10(3)/mcL 1.2 1.6 1.8 Monocyte Abs Latest Range: 0.2-1.0 x10(3)/mcL 0.4 0.6 0.8 Eosinophils Abs Latest Range: 0.0-0.5 x10(3)/mcL 0.1 0.2 0.2 Basophils Abs Latest Range: 0.0-0.2 x10(3)/mcL 0.0 0.0 0.0 Sodium Latest Range: 135-145 mmol/L 139 (External Lab) 137 136 138 Potassium Latest Range: 3.5-5.0 mmol/L 4.5 (External Lab) 4.6 4.6 4.6 Chloride Latest Range: 98-107 mmol/L 104 (External Lab) 105 104 104 CO2 Latest Range: 22-31 mmol/L 26 (External Lab) 24 25 23 Anion Gap Latest Range: 5-15 mmol/L 8 7 11 BUN Latest Range: 8-18 mg/dL 33 (External Lab) 28 (H) 30 (H) 31 (H) Creatinine Latest Range: 0.70-1.20 mg/dL 1.6 (External Lab) 1.56 (H) 1.44 (H) 1.46 (H) Estimated GFR Latest Range: >=60 34.12 (External Lab) 35 (L) 38 (L) 38 (L) Glucose Lvl No range found 147 (External Lab) 127 88 98 Calcium Latest Range: 8.5-10.5 mg/dL 8.7 (External Lab) 8.9 9.4 9.2 Phosphorus Latest Range: 2.5-4.5 mg/dL 3.3 (External Lab) 2.6 2.7 2.9 Albumin Latest Range: 3.2-5.2 gm/dL 4.4 4.5 4.5 Vit D, 25-Hydroxy No range found 29 (EXTERNAL/ABN) PTH Latest Range: 15-65 pg/mL 136 (H) 126 (H) Problem/Goal/Assessment/Plan: Problem: Chronic Kidney Disease Goal: Reduce rate of progression Education for CKD Stage specific issues Assessment: Estimated GFR (MDRD): 38 ml/min/1.73m2 CKD Stage 3 - Plan: Stable renal function. Need to continue PERRY to prevent recurrent scleroderma crisis Problem: Management of Anemia related to Chronic Kidney Disease (CKD) Goal: Hgb 9-10.5 g/dl Assessment: Today's Results Hgb - 14.3 Receiving erythropoetic stimulating agent? No Last IV Iron replacement therapy (Venofer), Date : None Plan: stable/not indicated Problem: Hypertension Goal: 130/80 mmHg Assessment: BP today - 128/80 Plan: ok Problem: Proteinuria Goal: Pro:Cr ratio <0.2mg/mg Alb:Cr ratio < 30mcg/mg Assessment: Today's results Pro:Cr ratio 0.4 in September 2011 Alb:Cr ratio 150 in September 2011 Plan: ok Problem: Bone Disease Goal: Stage 3 PTH: 35-70 pg/ml Phos 2.7-4.6 Ca 8.5-10.5mg/dl Stage 4 PTH: 70-110 pg/ml Phos 2.7-4.6 Ca 8.5-10.5mg/dl Stage 5 PTH: 150-300 pg/ml Phos 3.5-5.5 Ca 8.5-10.5mg/dl Assessment: PTH today -126 ( pt not taking calcitriol) Phos today 2.9- ( pt not taking binders) Calcium today - 9.2 Plan: ok Problem: Nutrition Goal: Albumin > 4.0gm/dl, Maintain ideal body weight Assessment: Albumin today - 4.5 Plan: ok Problem: Patient does not have Diabetes Goal: HA1C < 7.0% Assessment: Random Glucose - 98 Plan: ok Summary: Remarkably stable renal function post scleroderma renal crisis requiring dialysis. Continue PERRY therapy. She was asking if increasing her Norvasc would help with the finger lesions/but she is already on 7.5 daily. I wonder if some of the new stem cell rx in vascular could be of help. I will ask if there is any protocol or off protocol rx to consider. Return to clinic: 6 months documented in this encounter Plan of Treatment Upcoming Encounters Date Type Department Care Team (Late st Contact Info) Description 10/07/2024 11:30 AM EST Office Visit Dermatology at [address] [place] [address] Jo Ordaz MD [facility] [place] [address] 12/13/2024 11:30 AM EST Appointment [place] [phone] 12/13/2024 1:00 PM EST Office [place] [address] Kiet Pardo MD [facility] [place] [address] documented as of this encounter Procedures Procedure Name Priority Date/Time Associated Diagnosis Comments PTH STAT 01/02/2013 1:05 PM EST CKD (chronic kidney disease) stage 4, GFR 15-29 ml/min DIFFERENTIAL, AUTOMATED STAT 01/02/2013 1:05 PM EST CBC (WITH DIFF) STAT 01/02/2013 1:05 PM EST CKD (chronic kidney disease) stage 4, GFR 15-29 ml/min Anemia in CKD (chronic kidney disease) PHOSPHORUS STAT 01/02/2013 1:05 PM EST CKD (chronic kidney disease) stage 4, GFR 15-29 ml/min ALBUMIN LEVEL STAT 01/02/2013 1:05 PM EST CKD (chronic kidney disease) stage 4, GFR 15-29 ml/min BASIC METABOLIC PANEL STAT 01/02/2013 1:05 PM EST CKD (chronic kidney disease) stage 4, GFR 15-29 ml/min documented in this encounter Results * (ABNORMAL) Differential, Automated (01/02/2013 1:05 PM EST) Neutrophil % 71.7(H) 34.0 - 71.0 % CERNER MILLENNIUM Neutrophil Absolute 7.39(H) 1.50 - 6.30 x10(3)/mc L CERNER MILLENNIUM Lymph % 18.0(L) 19.0 - 53.0 % CERNER MILLENNIUM Lymphocytes Abs 1.8 1.0 - 3.6 x10(3)/mc L CERNER MILLENNIUM Monocyte % 8.2 4.0 - 13.0 % CERNER MILLENNIUM Monocyte Abs 0.8 0.2 - 1.0 x10(3)/mc L CERNER MILLENNIUM Eos % 1.5 0.0 - 7.0 % CERNER MILLENNIUM Eosinophils Abs 0.2 0.0 - 0.5 x10(3)/mc L CERNER MILLENNIUM Basophil % 0.4 0.0 - [...] Absolute 0.02 0.00 - 0.05 x10(3)/mc L CERNER MELISSAENNIUM Blood specimen (specimen) 01/02/2013 1:05 PM EST 01/02/2013 1:13 PM EST Sumit Sawyer MD HEMATOLOGY ORDERABL ES [facility] NARVAEZIUM * (ABNORMAL) PTH (01/02/2013 1:05 PM EST) Parathyroid Hormone 120(H) 15 - 65 pg/mL CERNER MELISSAENNIUM Blood specimen (specimen) 01/02/2013 1:05 PM EST 01/02/2013 1:13 PM EST Narrative Resulting Agency Comment Spec In Lab Sumit Sawyer MD CHEMISTRY ORDERABLE S CERDONNIE NARVAEZIUM * (ABNORMAL) Basic Metabolic Panel (non-fasting) (01/02/2013 1:05 PM EST) Glucose 98 60 - 199 mg/dL CERNER MILLENNIUM Comment:Diabetes: >=200 mg/d L plus symptoms Blood Urea Nitrogen 31(H) 8 - 18 mg/dL CERNER MILLENNIUM Creatinine 1.46(H) 0.70 - 1.20 mg/dL CERNER MILLENNIUM Comment: Please note that the pediatric reference intervals supplied above were not validated at [facility] Results from pediatric patients should be interpreted [...] questions. Chloride 104 98 - 107 mmol/L CERNER MILLENNIUM Carbon Dioxide 23 22 - 31 mmol/L CERNER MILLENNIUM Anion Gap 11 5 - 15 mmol/L CERNER MILLENNIUM Calcium 9.2 8.5 - 10.5 mg/dL CERNER MILLENNIUM Est Glomerular Filtration Rate 38(L) >=60 CERNER MILLENNIUM Comment: The National Kidney [...] J Am Soc Nephrol;6:1963-72. Blood specimen (specimen) 01/02/2013 1:05 PM EST 01/02/2013 1:13 PM EST Narrative Resulting Agency Comment Spec In Lab Sumit Sawyer MD CHEMISTRY ORDERABLE S [facility] * (ABNORMAL) CBC (with Diff) (01/02/2013 1:05 PM EST) White Blood Cell 10.3(H) 4.0 - 10.0 x10(3)/mc L CERNER MILLENNIUM Red Blood Cell 4.48 3.93 - 5.22 x10(6)/mc L CERNER MILLENNIUM Hemoglobin 14.3 11.2 - 15.7 gm/dL CERNER MILLENNIUM Hematocrit 43.6 34.0 - 45.0 % CERNER MILLENNIUM Mean Cell Volume 97.3(H) 79.0 - 94.0 fL CERNER MILLENNIUM Mean Cell Hemoglobin 31.9 26.6 - 32.2 pg CERNER MILLENNIUM Mean Cell Hemoglobin Concentration 32.8 32.0 - 36.5 gm/dL CERNER MILLENNIUM Platelet 351 145 - 370 x10(3)/mc L CERNER MILLENNIUM RDW Standard Deviation 47.3(H) 35.0 - 46.0 fL CERNER MILLENNIUM RDW coefficient of variation 13.3 10.9 - 14.4 % CERNER MILLENNIUM Mean Platelet Volume 10.7 9.0 - 12.0 fL CERNER MILLENNIUM Blood specimen (specimen) 01/02/2013 1:05 PM EST 01/02/2013 1:13 PM EST Narrative Resulting Agency Comment Spec In Lab Sumit Sawyer MD HEMATOLOGY ORDERABL ES Performing Organization Address [facility] Phone Number SALVADOR NARVAEZIUM * Phosphorus (01/02/2013 1:05 PM EST) Phosphorus 2.9 2.5 - 4.5 mg/dL SALVADOR TORRESENNIUM Blood specimen (specimen) 01/02/2013 1:05 PM EST 01/02/2013 1:13 PM EST Narrative Resulting Agency Comment Spec In Lab Sumit Sawyer MD CHEMISTRY ORDERABLE S Performing Organization Address [facility] Phone Number SALVADOR VALENCIA * Albumin Level (01/02/2013 1:05 PM EST) Albumin 4.5 3.2 - 5.2 gm/dL SALVADOR TORRESENNIUM Blood specimen (specimen) 01/02/2013 1:05 PM EST 01/02/2013 1:13 PM EST Narrative Resulting Agency Comment Spec In Lab Sumit Sawyer MD CHEMISTRY ORDERABLE S Performing Organization Address [facility] Phone Number SALVADOR VALENCIA documented in this encounter Visit Diagnoses Diagnosis CKD (chronic kidney disease) stage 4, GFR 15-29 ml/min Chronic kidney disease, Stage IV (severe) Anemia in CKD (chronic kidney disease) Anemia in chronic kidney disease documented in this encounter Care Teams Supervisor Electric Relationship Specialty Start Date End Date Yaritza Pierre MD [address] [place] [address] PCP - General 03/27/12 11/27/18 documented as of this encounter
--- OUTSIDE RECORDS SUMMARY | 2024-09-14 13:13 | XMS_ITS | Encounter Summary ---
[place] [address] Care Team Providers Care Television News Anchor Name Role Phone Yaritza Pierre MD Primary Care Provider [phone] Encounter Details Date Type Department Care Team (Late st Contact Info) Description 10/30/2013 Telephone [place] [phone] Wendy Albarado RN Social History Tobacco Use [...] Telephone Encounter - Wendy Albarado RN - 10/30/2013 4:21 PM EST O. Labs received. Results for AMBER DAWSON ( ) as of 10/30/2013 16:21 Ref. Range 09/26/2012 09:22 01/02/2013 13:05 07/10/2013 08:03 10/30/2013 00:00 Sodium Latest Range: 137-147 136 138 139 137 (External Lab) Potassium Latest Range: 3.4-5.3 4.6 4.6 4.2 4.9 (External Lab) Chloride Latest Range: 99-108 104 104 105 104 (External Lab) CO2 Latest Range: 22-29 25 23 24 25 (External Lab) Anion Gap Latest Range: 5-15 mmol/L 7 11 10 BUN No range found 30 (H) 31 (H) 23 (H) 30 (EXTERNAL/ABN) Creatinine No range found 1.44 (H) 1.46 (H) 1.35 (H) 1.28 (EXTERNAL/ABN) Estimated GFR No range found 38 (L) 38 (L) 41 (L) 44 (EXTERNAL/ABN) Glucose Lvl No range found 88 98 86 81 (External Lab) Calcium Latest Range: 8.7-10.7 9.4 9.2 9.3 8.4 (EXTERNAL/ABN) Phosphorus Latest Range: 2.5-4.5 mg/dL 2.7 2.9 2.8 Albumin Latest Range: 3.2-5.2 gm/dL 4.5 4.5 4.4 A. Kidney function stable. P. Message left at home with stable lab results. documented in this encounter Plan of Treatment Upcoming Encounters Date Type Department Care Team (Late st Contact Info) Description 10/07/2024 11:30 AM EST Office Visit Dermatology at [address] [phone] Jo Ordaz MD [facility] [place] [address] 12/13/2024 11:30 AM EST Appointment [place] [address] 12/13/2024 1:00 PM EST Office [place] [address] Kiet Pardo MD [facility] [place] [address] documented as of this encounter Procedures Procedure Name Priority Date/Time Associated Diagnosis Comments EXTERNAL LAB RESULTS Routine 10/30/2013 documented in this encounter Results * (ABNORMAL) External Lab Results (10/30/2013) Glucose 81(Externa l Lab) Blood Urea Nitrogen 30(EXTERNA L/ABN) Creatinine 1.28(EXTER NAL/ABN) Est Glomerular Filtration Rate 44(EXTERNA L/ABN) Sodium 137([employer] al Lab) 137 - 147 Potassium 4.9([employer] al Lab) 3.4 - 5.3 Chloride 104([employer] al Lab) 99 - 108 Carbon Dioxide 25(Externa l Lab) 22 - 29 Calcium 8.4(PUBLICATION DISTRIBUTOR AL/ABN) 8.7 - 10.7 10/30/2013 Historical Provider CHEMISTRY ORDERAB LES documented in this encounter Visit Diagnoses Not on filedocumented in this encounter Care Teams Television News Anchor Relationship Specialty Start Date End Date Yaritza Pierre MD [address] [place] [id number] PCP - General 03/27/12 11/27/18 documented as of this encounter
--- OUTSIDE RECORDS SUMMARY | 2024-09-14 13:13 | XMS_ITS | Encounter Summary ---
Author Organization [facility] [place] [address] Care Team Providers Care Wood Hacker Name Role Phone Yaritza Pierre MD Primary Care Provider [phone] Reason for Visit * Reason Onset Date Comments Other 09/26/2012 MAP-Walk In-romeo al appl Encounter Details Date Type Department Care Team (Late st Contact Info) Description 09/26/2012 Telephone [place] [phone] Debbie Cuenca Other (MAP-Walk In-annual appl) Social History Tobacco Use Types Packs/Day Years [...] * Telephone Encounter - Debbie Cuenca - 09/26/2012 12:01 PM EST MAP-Walk In-annual appl Amber came into [facility] today. Discussed annual enrollment-it is to soon to apply-printed her applications for [employer] and [employer] for her to complete, sign, and return to me.-recv'd proof of income today. Advised Amber to complete appls,send in copy of Medicaid card and most recent [facility] statement re:[place] and return to our office in October. I will follow through with the application once everything is returned to me. [facility] [id number] documented in this encounter Plan of Treatment Upcoming Encounters Date Type Department Care Team (Late st Contact Info) Description 10/07/2024 11:30 AM EST Office Visit Dermatology at [facility] [address] [place] [address] Jo Ordaz MD [facility] [place] [address] 12/13/2024 11:30 AM EST Appointment [place] [phone] 12/13/2024 1:00 PM EST Office [place] [phone] Kiet Pardo MD [facility] [place] [address] documented as of this encounter Visit Diagnoses Not on filedocumented in this encounter Care Teams Wood Hacker Relationship Specialty Start Date End Date Yaritza Pierre MD [address] [place] [address] PCP - General 03/27/12 11/27/18 documented as of this encounter
--- OUTSIDE RECORDS SUMMARY | 2024-09-14 13:13 | XMS_ITS | Encounter Summary ---
Author Organization [facility] [place] [address] Care Team Providers Care Fabrication Manager Name Role Phone Yaritza Pierre MD Primary Care Provider [phone] Reason for Visit * Reason Onset Date Comments Other 08/10/2012 MAP-phone refill s Encounter Details Date Type Department Care Team (Late st Contact Info) Description 08/10/2012 [place] [phone] Jamia Hinton (MAP-phone refills) Social History Tobacco [...] * Telephone Encounter - Jamia Hinton - 08/10/2012 4:31 PM EDT MAP-phone refills I called [facility] to order a 90-day supply of Norvasc 2.5 mg; 3 tablets po once daily. She has 1 refill left. I let Ms. Wells know that the medication will be shipped to her doctor's office and mailed to her home address and to call me if she does not receive it. I called [facility] to order a 90-day supply of Nexium 40 mg po twice daily. This is her last refill. I let Ms. Wells know that the medication will be shipped to her home address and to call me if she does not receive it. documented in this encounter Plan of Treatment Upcoming Encounters Date Type Department Care Team (Late st Contact Info) Description 10/07/2024 11:30 AM EST Office Visit Dermatology at [address] [address] Jo Ordaz MD [facility] [place] [address] 12/13/2024 11:30 AM EST Appointment [place] [address] 12/13/2024 1:00 PM EST Office [place] [address] Kiet Pardo MD [facility] [place] [address] documented as of this encounter Visit Diagnoses Not on filedocumented in this encounter Care Teams Fabrication Manager Relationship Specialty Start Date End Date Yaritza Pierre MD [address] [place] [address] PCP - General 03/27/12 11/27/18 documented as of this encounter
--- OUTSIDE RECORDS SUMMARY | 2024-09-14 13:13 | XMS_ITS | Encounter Summary ---
[place] [address] Care Team Providers Care Staff Reporter Name Role Phone Lilibeth Phillips MD Primary Care Provider [phone] Reason for Visit * Reason Onset Date Comments Prior Authorization 03/19/2012 for fosinopr il Encounter Details Date Type Department Care Team (Late st Contact Info) Description 03/19/2012 Telephone [place] [address] Wendy Albarado campus recruiting intern (for fosinopril) Social History Tobacco Use Types Packs/Day Years [...] Telephone Encounter - Wendy Albarado RN - 03/19/2012 2:29 PM EDT O. Patient needs fosinopril 40MG TWICE A DAY for scleroderma Patient now on [place] medicaid (# [id number] in and out A. Prior authorization approved for one year. P. PA obtained at documented in this encounter Plan of Treatment Upcoming Encounters Date Type Department Care Team (Late st Contact Info) Description 10/07/2024 11:30 AM EST Office Visit Dermatology at [facility] [address] [place] [address] Jo Ordaz MD [facility] [place] [address] 12/13/2024 11:30 AM EST Appointment [place] [phone] 12/13/2024 1:00 PM EST Office [place] [phone] Kiet Pardo MD [facility] [place] [address] documented as of this encounter Visit Diagnoses Not on filedocumented in this encounter Care Teams Staff Reporter Relationship Specialty Start Date End Date Lilibeth Phillips MD [address] [place] [address] PCP - General 10/12/10 03/26/12 documented as of this encounter
--- OUTSIDE RECORDS SUMMARY | 2024-09-14 13:13 | XMS_ITS | Encounter Summary ---
[place] [address] Care Team Providers Care Executive Search Consultant Name Role Phone Yaritza Pierre MD Primary Care Provider [phone] Encounter Details Date Type Department Care Team (Late st Contact Info) Description 10/18/2012 Telephone [place] [phone] Wendy Albarado RN Social History Tobacco Use [...] Telephone Encounter - Wendy Albarado RN - 10/18/2012 9:52 AM EST O. Results for AMBER DAWSON ( ) as of 10/18/2012 09:47 Ref. Range 09/26/2012 09:22 10/09/2012 00:00 Vit D, 25-Hydroxy No range found 29 (EXTERNAL/ABN) PTH Latest Range: 15-65 pg/mL 126 (H) Patient has been ill. Diagnosed with pneumonia and treated as outpatient. She is regaining her energy and everything is perfect now/ A. 25 OH vit D level low. P. Will start vitamin D [address] Sawyer documented in this encounter Plan of Treatment Upcoming Encounters Date Type Department Care Team (Late st Contact Info) Description 10/07/2024 11:30 AM EST Office Visit Dermatology at [facility] [address] [place] [address] Jo Ordaz MD [facility] [place] [address] 12/13/2024 11:30 AM EST [place]ment [place] [phone] 12/13/2024 1:00 PM EST Office [place] [phone] Kiet Pardo MD [facility] RHEUMATOLOGY [place], [place] [phone] documented as of this encounter Procedures Procedure Name Priority Date/Time Associated Diagnosis Comments EXTERNAL LAB RESULTS Routine 10/09/2012 documented in this encounter Results * (ABNORMAL) External Lab Results (10/09/2012) Vit D, 25-Hydroxy 29(EXTERNA L/ABN) Historical Provider CHEMISTRY ORDERAB LES documented in this encounter Visit Diagnoses Not on filedocumented in this encounter Care Teams Executive Search Consultant Relationship Specialty Start Date End Date Yaritza Pierre MD [address] [place] [phone] PCP - General 03/27/12 11/27/18 documented as of this encounter
--- OUTSIDE RECORDS SUMMARY | 2024-09-14 13:13 | XMS_ITS | Encounter Summary ---
Author Organization [facility] Address [facility] [place] [address] Care Team Providers Care Dairy Cattle Farm Worker Name Role Phone Yaritza Pierre MD Primary Care Provider [phone] Encounter Details Date Type Department Care Team (Late st Contact Info) Description 09/20/2012 Orders Only Nephrology [place] [address] Sumit Sawyer MD [facility] [place] [address] CKD (chronic kidney disease) stage 4, GFR 15-29 ml/min; Anemia in CKD (chronic kidney disease) Social [...] EST Office Visit Dermatology at [facility] [address] [place] [phone] Jo Ordaz MD [facility] [place] [address] 12/13/2024 11:30 AM EST Appointment [place] [address] 12/13/2024 1:00 PM EST Office [place] [address] Kiet Pardo MD [facility] [place] [address] documented as of this encounter Results * (ABNORMAL) PTH (09/26/2012 9:22 AM EST) Parathyroid Hormone 126(H) 15 - 65 pg/mL CERNER MILLENNIUM Blood specimen (specimen) 09/26/2012 9:22 AM EST 09/26/2012 9:39 AM EST Narrative Resulting Agency Comment Spec In Lab Sumit Sawyer MD CHEMISTRY ORDERABLE S CERNER MILLENNIUM * (ABNORMAL) CBC (with Diff) (09/26/2012 9:22 AM EST) White Blood Cell 9.1 4.0 - 10.0 x10(3)/mc L CERNER MILLENNIUM Red Blood Cell 4.38 3.93 - 5.22 x10(6)/mc L CERNER MILLENNIUM Hemoglobin 14.0 11.2 - 15.7 gm/dL CERNER MILLENNIUM Hematocrit 42.2 34.0 - 45.0 % CERNER MILLENNIUM Mean Cell Volume 96.3(H) 79.0 - 94.0 fL CERNER MILLENNIUM Mean Cell Hemoglobin 32.0 26.6 - 32.2 pg CERNER MILLENNIUM Mean Cell Hemoglobin Concentration 33.2 32.0 - 36.5 gm/dL CERNER MILLENNIUM Platelet 349 145 - 370 x10(3)/mc L CERNER MILLENNIUM RDW Standard Deviation 46.7(H) 35.0 - 46.0 fL CERNER MILLENNIUM RDW coefficient of variation 13.2 10.9 - 14.4 % CERNER MILLENNIUM Mean Platelet Volume 10.8 9.0 - 12.0 fL CERNER MILLENNIUM Blood specimen (specimen) 09/26/2012 9:22 AM EST 09/26/2012 9:39 AM EST Narrative Resulting Agency Comment Spec In Lab Sumit Sawyer MD HEMATOLOGY ORDERABL ES CERNER MILLENNIUM * (ABNORMAL) Basic Metabolic Panel (non-fasting) (09/26/2012 9:22 AM EST) Glucose 88 60 - 199 mg/dL CERNER MILLENNIUM Comment:Diabetes: >=200 mg/d L plus symptoms Blood Urea Nitrogen 30(H) 8 - 18 mg/dL CERNER MILLENNIUM Creatinine 1.44(H) 0.70 - 1.20 mg/dL CERNER MILLENNIUM Comment: Please note that the pediatric reference intervals supplied above were not validated at [facility]. Results from pediatric patients should be interpreted in conjunction to the patient's age, height and muscle mass. Sodium 136 135 - 145 mmol/L CERNER MILLENNIUM Potassium [...] - 31 mmol/L CERNER MILLENNIUM Anion Gap 7 5 - 15 mmol/L CERNER MILLENNIUM Calcium 9.4 8.5 - 10.5 mg/dL CERNER MILLENNIUM Est [...] J Am Soc Nephrol;6:1963-72. Blood specimen (specimen) 09/26/2012 9:22 AM EST 09/26/2012 9:39 AM EST Narrative Resulting Agency Comment Spec In Lab Sumit Sawyer MD CHEMISTRY ORDERABLE S SALVADOR VALENCIA * Phosphorus (09/26/2012 9:22 AM EST) Phosphorus 2.7 2.5 - 4.5 mg/dL SALVADOR MELISSAJUAN PABLO Blood specimen (specimen) 09/26/2012 9:22 AM EST 09/26/2012 9:39 AM EST Narrative Resulting Agency Comment Spec In Lab Sumit Sawyer MD CHEMISTRY ORDERABLE S Performing Organization Address [facility] Co de Phone Number SALVADOR VALENCIA * Albumin Level (09/26/2012 9:22 AM EST) Albumin 4.5 3.2 - 5.2 gm/dL [facility] Blood specimen (specimen) 09/26/2012 9:22 AM EST 09/26/2012 9:39 AM EST Narrative Resulting Agency Comment Spec In Lab Sumit Sawyer MD CHEMISTRY ORDERABLE S Performing Organization Address [facility] de Phone Number SALVADOR VALENCIA documented in this encounter Visit Diagnoses Diagnosis CKD (chronic kidney disease) stage 4, GFR 15-29 ml/min Chronic kidney disease, Stage IV (severe) Anemia in CKD (chronic kidney disease) Anemia in chronic kidney disease documented in this encounter Care Teams Dairy Cattle Farm Worker Relationship Specialty Start Date End Date Yaritza Pierre MD [address] [place] [address] PCP - General 03/27/12 11/27/18 documented as of this encounter
--- OUTSIDE RECORDS SUMMARY | 2024-09-14 13:13 | XMS_ITS | Encounter Summary ---
Author Organization [facility] Address [facility] [place] [address] Care Team Providers Care Marzipan Maker Name Role Phone Yaritza Pierre MD Primary Care Provider [phone] Reason for Visit * Reason Comments Chronic Kidney Disease Encounter Details Date Type Department Care Team (Latest Contact Info) Description 03/27/2012 10:00 AM EDT Office Visit Neph[place] [address] Cash Sawyer MD [facility] [place] [address] A, Nurse Clinician None CKD (chronic kidney [...] Sign Reading Time Taken Comments Blood Pressure 98/65 03/27/2012 10:24 AM EDT Pulse 76 03/27/2012 10:24 AM EDT Temperature - - Respiratory Rate - - Oxygen Saturation - - Inhaled Oxygen Concentration - - Weight 62.5 kg (137 lb 11.2 oz) 012 10:24 AM EDT Height 168.9 cm (5' 6.5) 03/27/2012 10 :24 AM EDT Body Mass Index 21.89 03/27/2012 10:24 AM EDT documented in this encounter Patient Instructions * Patient Instructions* Wendy Albarado RN - 03/27/2012 10:48 AM EDT You can try fosinopril 20 mg twice a day. Continue to take your blood pressures several times a day. If your blood pressure goes up higher than 140 you should return to taking fosinopril 40mg twice aday. Call Pallavi Albarado in one month and let her know how the blood pressures are doing and what dose you are taking. [phone] [facility] has a prescription savings program that has fosinopril. There is a membership fee. Look at the information given to you at clinic, it may be less expensive. documented in this encounter Progress Notes * Cash Sawyer MD - 03/27/2012 10:24 AM EDT [facility] [address] [place] [address] Reason for Clinic Visit: Systems Review and CKD management. Seen in clinic with: Pallavi Albarado RN, [employer]uing [employer] (CCM) CKD related to: scleraderma crisis History of Present Illness: Last seen in Sep, 2011 since then she has been healthy. She had a cough most of the winter but it is gone now. She moved to her own house in [place], [place] and stayed in the area this winter. Hands and feet werecold but she used mittens and hand warmers. 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 Last dialysis was in June at [facility] (dialyzed for 2 months). Education: 3-4 gram sodium diet discusssed, low potassium diet discussed Anticipated Renal Replacement Therapy Plan: Was on HD through tunnelled catheter from April 27 to July 14 at [facility] for the last 3 weeks of dialysis. Transplant Evaluation: will trend Creatinine levels to determine if this is necessary Review of Systems: Sign/Symptom Comments Activity level/fatigue: Yes energy is changeable, depends on the day. Feels tired, tries not to nap Change in sleep patterns: No problem Nocturia: None Appetite changes: I'm always hungry Food aversions: No Nausea: None since restarting the nexium twice a day. Vomiting: None Bowels: No Diarrhea/Constipation (coffee causing diarrhea) Edema: None today Shortness of breath: None Orthopnea/PND: No PND; 1 pillow Muscle Cramping: No Cold intolerance: Yes all the time Itching: No Bruising/bleeding: No Mental Status Changes: No Recent Home Blood Pressure Control: 120/80in the am. At night 135/83 Recent Lipid Management: None Additional CCM Comments: How's your health been in the last 4 weeks: Poor Fair to Good Very Good Excellent Stiffness in her hands is about the same. [employer] is working well for the pain in her hands. She has dual citizenship in [place] and [place] She is seeing core [place] [facility] [place] the [place]oderma management. Hepatitis B Status: Serum Testing Date of Testing Results Hep B sAb/Hep B sAg not tested Vaccination Status: Unknown Fistula Date/Type of Initial Access/Surgeon: Had tunnelled dialysis catheter removed at [facility] in June 2010. No plans for [...] Outpatient prescriptions marked as taking for the 03/27/12 encounter (Office Visit) with CASH SAWYER Medication Sig Dispense Refill ??? Cholecalciferol, Vitamin [...] skin every 6 hours. Physical Exam: BP 98/65 Pulse 76 Ht 168.9 cm (5' 6.5) Wt 62.46 kg (137 lb 11.2 oz) BMI 21.89 kg/m2 If exam WNL X Abnormal findings General appearance Pleasant woman with scleroderma Head Eyes ENT Changes in face related to scleroderma Neck Respiratory No rales/clear COR/Vascular rrr Abdomen nt/nd Skin Diffuse changes distally hands/arms Neuro x Asterixis Extremities No edema Other Labs Results for AMBER DAWSON ( ) as of 03/27/2012 17:11 Ref. Range 09/28/2011 09:09 09/28/2011 09:10 12/14/2011 00:00 03/27/2012 09:35 WBC Latest Range: 4.0-10.0 x10(3)/mcL 8.6 7.3 RBC Latest Range: 3.93-5.22 x10(6)/mcL 3.91 (L) 3.96 Hemoglobin Latest Range: 11.2-15.7 gm/dL 12.5 12.8 (External Lab) 12.7 Hematocrit Latest Range: 34.0-45.0 % 37.6 38.9 (External Lab) 37.8 MCV Latest Range: 79.0-94.0 fL 96.2 (H) 95.5 (H) MCH Latest Range: 26.6-32.2 pg 32.0 32.1 MCHC Latest Range: 32.0-36.5 gm/dL 33.2 33.6 RDWSD Latest Range: 35.0-46.0 fL 45.3 46.2 (H) RDWCV Latest Range: 10.9-14.4 % 13.1 13.3 Platelets Latest Range: 145-370 x10(3)/mcL 344 305 MPV Latest Range: 9.0-12.0 fL 10.5 10.5 Neutr Abs (ANC) Latest Range: 1.50-6.30 x10(3)/mcL 6.35 (H) 5.52 Neutrophils % Latest Range: 34.0-71.0 % 73.9 (H) 75.3 (H) Immature Gran % Latest Range: 0.00-0.66 % 0.20 0.10 Lymphocytes % Latest Range: 19.0-53.0 % 17.5 (L) 17.0 (L) Monocytes % Latest Range: 4.0-13.0 % 7.0 6.0 Eosinophils % Latest Range: 0.0-7.0 % 0.9 1.1 Basophils % Latest Range: 0.0-2.0 % 0.5 0.5 Yessica Gran Abs Latest Range: 0.00-0.05 x10(3)/mcL 0.02 0.01 Lymphocytes Abs Latest Range: 1.0-3.6 x10(3)/mcL 1.5 1.2 Monocyte Abs Latest Range: 0.2-1.0 x10(3)/mcL 0.6 0.4 Eosinophils Abs Latest Range: 0.0-0.5 x10(3)/mcL 0.1 0.1 Basophils Abs Latest Range: 0.0-0.2 x10(3)/mcL 0.0 0.0 U Protein Ran Latest Range: 0-12 mg/dL 12 Ferritin Latest Range: 15-150 ng/mL 27 Iron Latest Range: 30-150 mcg/dL 78 TIBC Latest Range: 250-450 mcg/dL 227 (L) Iron Saturation Latest Range: 20-50 % 34 Sodium Latest Range: 135-145 mmol/L 139 139 (External Lab) 137 Potassium Latest Range: 3.5-5.0 mmol/L 4.2 4.5 (External Lab) 4.6 Chloride Latest Range: 98-107 mmol/L 105 104 (External Lab) 105 CO2 Latest Range: 22-31 mmol/L 24 26 (External Lab) 24 Anion Gap Latest Range: 5-15 mmol/L 10 8 BUN Latest Range: 8-18 mg/dL 28 (H) 33 (External Lab) 28 (H) Creatinine Latest Range: 0.70-1.20 mg/dL 1.66 (H) 1.6 (External Lab) 1.56 (H) Estimated GFR Latest Range: >=60 33 (L) 34.12 (External Lab) 35 (L) Glucose Lvl No range found 73 147 (External Lab) 127 Calcium Latest Range: 8.5-10.5 mg/dL 9.6 8.7 (External Lab) 8.9 Phosphorus Latest Range: 2.5-4.5 mg/dL 2.6 3.3 (External Lab) 2.6 Albumin Latest Range: 3.2-5.2 gm/dL 4.8 4.4 PTH Latest Range: 15-65 pg/mL 97 (H) 136 (H) U Creatinine No range found 33 Prot/Cre Ratio No range found 0.4 U Ran Malb Calc No range found U Ran Malb Conc No range found EF No range found Problem/Goal/Assessment/Plan: Problem: Chronic Kidney Disease Goal: Reduce rate of progression Education for CKD Stage specific issues Assessment: Estimated GFR (MDRD): 35 ml/min/1.73m2 CKD Stage 3 - Plan: Return to clinic in 6 months. No longer needs to restrict potassium or phosphorus in the diet. Renal function continues to improve. Problem: Management of Anemia related to Chronic Kidney Disease (CKD) Goal: Hgb 9-10.5 g/dl Assessment: Today's Results Hgb - 12.7 Receiving erythropoetic stimulating agent? No longer needs Aranesp Last IV Iron replacement therapy (Venofer), Date : None Plan: ok Problem: Hypertension Goal: 130/80 mmHg Assessment: BP today - 98/ Plan: Patient may decrease fosinopril to 20mg twice a day if her blood pressures stays < 140 systolic Problem: Proteinuria Goal: Pro:Cr ratio <0.2mg/mg Assessment: Today's results Pro:Cr ratio 0.4 in Sep 2011 Plan: ok Problem: Bone Disease Goal: Stage 3 PTH: 35-70 pg/ml Phos 2.7-4.6 Ca 8.5-10.5mg/dl Stage 4 PTH: 70-110 pg/ml Phos 2.7-4.6 Ca 8.5-10.5mg/dl Stage 5 PTH: 150-300 pg/ml Phos 3.5-5.5 Ca 8.5-10.5mg/dl Assessment: PTH today -136 (pt not taking calcitriol) Phos today - 2.6 (pt not taking binders) Calcium today - 8.9 Plan: ok Problem: Nutrition Goal: Albumin > 4.0gm/dl, Maintain ideal body weight Assessment: Albumin today - 4.4 Plan: ok Problem: Patient does not have Diabetes Goal: HA1C < 7.0% Assessment: Random Glucose - 127 Plan: ok Summary: Doing well on PERRY with scleroderma. At present is not on any immunorx but also has no other evidence of active disease at present. She as slowly reponded to PERRY with gradual improvement in renal function. Return to clinic: 6 months documented in this encounter Plan of Treatment Upcoming Encounters Date Type Department Care Team (Late st Contact Info) Description 10/07/2024 11:30 AM EST Office Visit Dermatology at [facility] [address] [place] [address] Jo Ordaz MD [facility] [place] [address] 12/13/2024 11:30 AM EST Appointment [place] [address] 12/13/2024 1:00 PM EST Office [place] [phone] Kiet Pardo MD [facility] [place] [address] documented as of this encounter Procedures Procedure Name Priority Date/Time Associated Diagnosis Comments PTH STAT 03/27/2012 9:35 AM EDT CKD (chronic kidney disease) stage 4, GFR 15-29 ml/min DIFFERENTIAL, AUTOMATED STAT 03/27/2012 9:35 AM EDT CBC (WITH DIFF) STAT 03/27/2012 9:35 AM EDT CKD (chronic kidney disease) stage 4, GFR 15-29 ml/min Anemia in CKD (chronic kidney disease) PHOSPHORUS STAT 03/27/2012 9:35 AM EDT CKD (chronic kidney disease) stage 4, GFR 15-29 ml/min ALBUMIN LEVEL STAT 03/27/2012 9:35 AM EDT CKD (chronic kidney disease) stage 4, GFR 15-29 ml/min BASIC METABOLIC PANEL STAT 03/27/2012 9:35 AM EDT CKD (chronic kidney disease) stage 4, GFR 15-29 ml/min documented in this encounter Results * (ABNORMAL) DIFFERENTIAL, AUTOMATED (03/27/2012 9:35 AM EDT) Neutrophil % 75.3(H) 34.0 - 71.0 % CERNER MILLENNIUM Neutrophil Absolute 5.52 1.50 - 6.30 x10(3)/mc L CERNER MILLENNIUM Lymph % 17.0(L) 19.0 - 53.0 % CERNER MILLENNIUM Lymphocytes Abs 1.2 1.0 - 3.6 x10(3)/mc L CERNER MILLENNIUM Monocyte % 6.0 4.0 - 13.0 % CERNER MILLENNIUM Monocyte Abs 0.4 0.2 - 1.0 x10(3)/mc L CERNER MILLENNIUM Eos % 1.1 0.0 - 7.0 % CERNER MILLENNIUM Eosinophils Abs 0.1 0.0 - 0.5 x10(3)/mc L CERNER MILLENNIUM Basophil % 0.5 0.0 - 2.0 % CERNER MILLENNIUM Baso Absolute 0.0 0.0 - 0.2 x10(3)/mc L CERNER MILLENNIUM Immature Gran % 0.10 0.00 [...] x10(3)/mc L CERNER MILLENNIUM Blood specimen (specimen) 03/27/2012 9:35 AM EDT 03/27/2012 9:44 AM EDT Cash Sawyer MD HEMATOLOGY ORDERABL ES Performing Organization Address [facility] Co de Phone Number CERNER MILLENNIUM * (ABNORMAL) CBC (with Diff) (03/27/2012 9:35 [...] Narrative Resulting Agency Comment Spec In Lab Cash Sawyer MD HEMATOLOGY ORDERABL ES CERDONNIE NARVAEZIUM * Albumin Level (03/27/2012 9:35 AM EDT) Albumin 4.4 3.2 - 5.2 gm/dL CERNER MILLENNIUM Blood specimen (specimen) 03/27/2012 9:35 AM EDT 03/27/2012 9:44 AM EDT Narrative Resulting Agency Comment Spec In Lab Cash Sawyer MD CHEMISTRY ORDERABLE S CERNER MILLENNIUM * (ABNORMAL) Basic [...] Narrative Resulting Agency Comment Spec In Lab Cash Sawyer MD CHEMISTRY ORDERABLE S SALVADOR TORRESBloomfire * Phosphorus (03/27/2012 9:35 AM EDT) Phosphorus 2.6 2.5 - 4.5 mg/dL [facility] Blood specimen (specimen) 03/27/2012 9:35 AM EDT 03/27/2012 9:44 AM EDT Narrative Resulting Agency Comment Spec In Lab Cash Sawyer MD CHEMISTRY ORDERABLE S [facility] * (ABNORMAL) PTH (03/27/2012 9:35 AM EDT) Parathyroid Hormone 136(H) 15 - 65 pg/mL BANNERDONNIE [facility] Blood specimen (specimen) 03/27/2012 9:35 AM EDT 03/27/2012 9:44 AM EDT Narrative Resulting Agency Comment Spec In Lab Cash Sawyer MD CHEMISTRY ORDERABLE S SALVADOR VALENCIA documented in this encounter Visit Diagnoses Diagnosis CKD (chronic kidney disease) stage 4, GFR 15-29 ml/min Chronic kidney disease, Stage IV (severe) Anemia in CKD (chronic kidney disease) Anemia in chronic kidney disease documented in this encounter Care Teams Marzipan Maker Relationship Specialty Start Date End Date Yaritza Pierre MD [address] [place] [address] PCP - General 03/27/12 11/27/18 documented as of this encounter
--- OUTSIDE RECORDS SUMMARY | 2024-09-14 13:14 | XMS_ITS | Encounter Summary ---
Author Organization [facility] Address [facility] [place] [address] Care Team Providers Care Histology Technologist Name Role Phone Lilibeth Phillips MD Primary Care Provider [phone] Encounter Details Date Type Department Care Team (Latest Contact Info) Description 03/02/2011 External Results Nephrology [place] [address] Sumit Sawyer MD [facility] [place] [address] CKD (chronic kidney disease) stage 4, GFR 15-29 ml/min (Primary Dx) Social History Tobacco Use Types Packs/Day Years Used Date Smoking Tobacco: Never Assessed Sex and Gender Information Value Date Recorded Sex Assigned at Female 09/17/2021 7:57 PM EDT Gender Identity Female 11/08/2018 9:52 PM EST Sexual Orientation Straight 07/09/2021 4: 47 PM EDT documented as of this encounter Progress Notes * Wendy Albarado RN - 03/02/2011 10:48 AM EDT PATIENT RECEIVING MONTHLY LABS WHILE IN [place] Lab Test 03/01/2011 @ [facility] [place] 01/24/2011 @ [place] 12/23/2010 @ [facility] [place] 12/14/2010 @ [facility] [place] 11[place]2010[place] [facility] [place] 10/12/2010 @ [facility] [place] BUN 23 37 44 38 48 36 Creatinine 2.24 2.22 2.46 3.17 2.21 2.22 Sodium 137 136 138 137 138 138 Potassium 5.1 5.3 4.7 5.0 5.2 5.3 Chloride 104 104 106 103 107 104 CO2 19 19 19 19 21 22 Phos Calcium 9.5 9.0 9.1 9.0 9.1 9.3 Hgb 11.9 11.2 11.0 10.8 11.2 Hct 35.8 33.2 33.2 33.3 34.6 eGFR 25 23 21 16 documented in this encounter Plan of Treatment Upcoming Encounters Date Type Department Care Team (Late st Contact Info) Description 10/07/2024 11:30 AM EST Office Visit Dermatology at [facility] [address] [place] [address] Jo Ordaz MD [facility] [place] [address] 12/13/2024 11:30 AM EST Appointment [place] [phone] 12/13/2024 1:00 PM EST Office [place] [phone] Kiet Pardo MD [facility] [place] [address] documented as of this encounter Procedures Procedure Name Priority Date/Time Associated Diagnosis Comments EXTERNAL LAB RESULTS Routine 03/01/2011 documented in this encounter Results * (ABNORMAL) External Lab Results (03/01/2011) Glucose 85 [facility] Blood Urea Nitrogen 23(A) 4 - 21 [facility] Creatinine 2.2(A) 0.5 - 1.1 [facility] Est Glomerular Filtration Rate 25 [facility] Sodium 137 137 - 147 [facility] Potassium 5.1 3.4 - 5.3 [facility] Chloride 104 99 - 108 [facility] Carbon Dioxide 19(A) 22 - 29 [facility] Calcium 9.6 8.7 - 10.7 [facility] Hemoglobin 11.9(A) 12.0 - 16.0 [facility] Hematocrit 36 36 - 46 [facility] Blood specimen (specimen) Historical Provider CHEMISTRY ORDERAB LES [facility] documented in this encounter Visit Diagnoses Diagnosis CKD (chronic kidney disease) stage 4, GFR 15-29 ml/min- Primary Chronic kidney disease, Stage IV (severe) documented in this encounter Care Teams Histology Technologist Relationship Specialty Start Date End Date Lilibeth Phillips MD [address] [place] [address] PCP - General 10/12/10 03/26/12 documented as of this encounter
--- OUTSIDE RECORDS SUMMARY | 2024-09-14 13:14 | XMS_ITS | Encounter Summary ---
Author Organization [facility] [place] [address] Care Team Providers Care Game Programer Name Role Phone Lilibeth Phillips MD Primary Care Provider [phone] Reason for Visit * Reason Comments Raynaud's Syndrome Encounter Details Date Type Department Care Team ([facility] st Contact Info) Description 10/04/2011 2:45 PM EST [place] [phone] Flako Pierre MD [address] [place] [id number] Scleroderma; Raynaud's disease Discharge Disposition: Home Social [...] Sign Reading Time Taken Comments Blood Pressure 103/63 10/04/2011 3:07 PM EST Pulse 72 10/04/2011 3:07 PM EST Temperature 36.7 ??C (98 ??F) 10/04/2011 3:07 PM EST Respiratory Rate - - Oxygen Saturation 99% 10/04/2011 3:07 PM EST Inhaled Oxygen Concentration - - Weight 55.8 kg (123 lb) 10/04/2011 3:07 PM EST Height 170.2 cm (5' 7) 10/04/2011 3:07 PM EST Body Mass Index 19.26 10/04/2011 3:07 PM EST documented in this encounter Patient Instructions * Patient Instructions* Flako Pierre MD - 10/04/2011 3:37 PM EST Continue norvasc at current dosing. Start fluoxetine 20mg PO daily. documented in this encounter Progress Notes * Flako Pierre MD - 10/04/2011 9:35 AM EST RHEUMATOLOGY OFFICE NOTE PROBLEM LIST: 1. Diffuse systemic sclerosis. (A) Initially diagnosed [place] [address] Placido Lora at [facility] in [place]. Then followed by Dr. Peyton Hinton in [facility] in [place] in 04/2010. (B) Treatment in the past has included intermittent penicillamine and methotrexate, however, she has been off immunosuppressive therapy since approximately 2005. (C) Hospitalization in 03/2010 in [place] with scleroderma hypertensive renal crisis, on dialysis for two months ending in mid 06/2010. (D) One visit with Dr. Ten Gonzalez in [place], [place] in late 2009. 2. Chronic kidney disease, stage IV, with associated anemia. Currently followed by Dr. Sumit Sawyer in nephrology. 3. Raynaud's symptoms. 4. GERD. Current outpatient prescriptions Medication Sig Dispense Refill ??? fosinopril (MONOPRIL) 40 mg tablet Take 1 tablet by mouth 2 times daily. 60 tablet 11 ??? amlodipine (NORVASC) 2.5 mg tablet Take 3 tablets by mouth daily. 90 tablet 12 ??? esomeprazole (NEXIUM) 40 mg capsule Take 1 capsule by mouth 2 times daily. 60 capsule 12 ??? Acetaminophen 650 mg Tab Take 1,300 [...] hours. ??? B Complex-Vitamin C-Folic Acid (B [id number] ACID) 1 mg capsule 1 MG = 1 Capsule(s) PO Once daily No Known Allergies SUBJECTIVE: Ms. Wells is a very pleasant 51-year-old woman who returns to rheumatology clinic forfollow. She was last seen 3.5 months ago and presents today stating that the increased norvasc dose after our last visit was helpful, and she is tolerating this dose well. However, she still has pain at the tips of several digits but not true ulcerations. If she cuts her hand she has very prolonged healing time. Raynaud's sx remain active, even during the summertime. GERD sx remain controlled on Nexium. She continues to use Tylenol Arthritis and occasional codeine for her hand and occasional knee pain. REVIEW OF SYSTEMS: - Fatigue has improved. No fevers, chills, night sweats, weight loss, anorexia, insomnia, rashes, HEENT symptoms (includingdry eyes, dry mouth, stomatitis, and alopecia), chest pain, palpitations, shortness of breath, cough, abdominal pain, nausea, vomiting, diarrhea, constipation, blood in the stools or urine, urinary symptoms, joint swelling, or focal weakness or numbness. Social and family histories were reviewed. SOCIAL HISTORY: The patient currently resides in a camp in [place], [place] with her boyfriend. Planning to move to [place], [place]. She is single and has no children. She denies tobacco, alcohol, or recreational drug use. FAMILY HISTORY: No known rheumatologic disease. PHYSICAL EXAMINATION: Vital Signs Temp: 36.7 ??C (98 ??F) Heart Rate: 72 BP: 103/63 mmHg SpO2: 99 % General: This is a very pleasant 51-year-old woman in no acute distress. Skin: The patient again has evidence of diffuse scleroderma with perioral thickening and significant sclerodactyly of the fingers progressing to the forearms. Less prominent skin thickening over the trunk. Nailfold capillaroscopy at our initial consultation in 07/2010 revealed significant dropout in all digits. Minimal pitting of the skin continues at the tip of right thumb, but not over other digits. Ongoing significant telangiectasias over the face, but no palpable calcinosis. HEENT: Pupils equal, round, and reactive to light and accommodation bilaterally. Extraocular muscles intact. Oropharynx is clear. Mucous membranes moist. Neck: Supple. No lymphadenopathy. Heart: Regular rate and rhythm. Lungs: Clear to auscultation bilaterally. Abdomen: Normal bowel sounds. Soft, nontender, and nondistended. Neuro: Alert and oriented x3, grossly nonfocal. Extremities: Upper extremity exam again shows marked sclerodactyly with restriction in range of motion of her hands. No tenderness or synovitis is noted in the hands. Wrist pain remains mildly restricted as well. Elbows and shoulders unremarkable. Lower extremity exam shows reasonable range of motion without synovitis or knee joint effusions. LABORATORY DATA: - 05/18/2011: CBC within normal limits aside from MCV of 97.4. Basic metabolic panel notable for a BUN of 26 and creatinine of 1.82. Albumin 4.4. Ferritin 15. PTH elevated at 85. TSH 1.08. - 09/28/11: CBC normal. BMP notable for BUN 28, Cr 1.66, est GFR 33. Iron 78. TIBC 227. Tsat 34. PTH97. Ferritin 27. Albumin 4.8. Phos 2.6. IMPRESSION: - Diffuse systemic sclerosis. She has been off all immunosuppressive agents for the past five yearsand I still do not see symptoms or signs that would prompt us to try additional therapy. She did see Dr. Ten Gonzalez, a scleroderma specialist in [place], [place], one year ago who also found no indication for immunosuppressive treatment. She reports that her prior PFT's and echocardiograms have all been stable, but unfortunately these were all in [facility] and are in [place]. I will recheck PFTs and an echo. - Ongoing Raynaud's and minimal digital pitting. I would like to try her on fluoxetine to see if there is added benefit. RECOMMENDATIONS: 1. Continue Norvasc to 7.5 mg p.o. daily. 2. Start fluoxetine 20mg PO daily. 3. Continue to follow with Dr. Sawyer in nephrology. 4. Continue conservative care for Raynaud's. 5. Rheumatology follow-up in [address] Yu Mcdonough. Flako Pierre MD CC: Lilibeth Phillips M.D. [facility] [address] [place] [address] documented in this encounter Plan of Treatment Upcoming Encounters Date Type Department Care Team (Late st Contact Info) Description 10/07/2024 11:30 AM EST Office Visit Dermatology at [facility] [address] [place] [address] Jo Ordaz MD [facility] [place] [address] 12/13/2024 11:30 AM EST Appointment [place] [phone] 12/13/2024 1:00 PM EST Office [place] [phone] Kiet Pardo MD [facility] [place] [place] [address] Scheduled Orders Name Type Priority Associated Diagnoses Orde r Schedule PFT Screen (Pulmonary Function Test) PFT Routine Scleroderma Expected: 10/04/2011, Expires: 10/04/2012 documented as of this encounter Results * Echo Transthoracic (Complete) (12/09/2011 11:17 AM EST) EF 76 HEARTLAB SYSTEM Anatomical Region Laterality Modality Other 12/09/2011 Narrative 12/09/2011 11:35 AM EST Procedure: ? Transthoracic Echocardiogram Patient: ? EUNICE JAMES ?(Age): 1960(51) Med Rec#: ?[id number] ? Sex: ?F ? Site Loc: ?[facility] ? Ht / Wt: ??(cm)/(kg) ? Pt. Loc: ? Echo Lab ? BSA: ? Study Date: ?12/09/2011 ? Pt. Type: Outpatient Tape: ? Referring: Flako Pierre Referring: LILIBETH PHILLIPS D Referring: Yu Mcdonough Blockman: Artur Rodriguez Diagnosis: ??Shortness of breath (786.05) CPT Code(s): ??Spectral Doppler (45765), ??Echo Full (76187), ??Color Doppler (60790), Indication(s): ??Pulmonary hypertension, R/O Rhythm: SUMMARY: 1. [...] ? Mid-Inferior ?Normal ? Mid-Inferoseptal ?Normal ? [place]-Septal ? Normal ? [place]-Anterior ? Normal ? [place]-Lateral ?Normal ? [place]-Inferior ? Normal ? [place]-Tip ?Normal ? Chambers ?Value ?Units (Range) ? [...] 12/09/2011 11:34:41 Images reviewed and interpretation verified [facility] Cardiac Ultrasound Laboratory Procedure Note Marco A Locke MD - 12/09/2011 Procedure: Transthoracic Echocardiogram Patient: EUNICE LAWSON(Age): 1960(51) Med Rec#: [id number] Sex: F Site Loc: [facility] Ht / Wt: (cm)/(kg) Pt. Loc: Echo Lab BSA: Study Date: 12/09/2011 Pt. Type: Outpatient Tape: Referring: Flako Pierre Referring: LILIBETH PHILLIPS D Referring: Yu Mcdonough Blockman: Artur Rodriguez Diagnosis: Shortness of breath (786.05) CPT Code(s): Spectral Doppler (41793), Echo Full (80420), Color Doppler (27979), Indication(s): Pulmonary hypertension, R/O Rhythm: SUMMARY: 1. [...] change in the inferior vena cava dimension. [facility] Two-dimensional echo, spectral Doppler and color Doppler performed. Wall Motion: Segment Name Rest Base-Anteroseptal Normal Base-Anterior Normal Base-Anterolateral Normal Base-Posterolateral Normal Base-Inferior Normal Base-Inferoseptal Normal Mid-Anteroseptal Normal Mid-Anterior Normal Mid-Anterolateral Normal Mid-Posterolateral Normal Mid-Inferior Normal Mid-Inferoseptal Normal [place]-Septal Normal [place]-Anterior Normal [place]-Lateral Normal [place]-Inferior Normal [place]-Tip Normal Chambers Value Units (Range) LV EF [...] 12/09/2011 11:34:41 Images reviewed and interpretation verified [facility] Cardiac Ultrasound Laboratory Flako Pierre MD ECHO ORDERABLES documented in this encounter Visit Diagnoses Diagnosis Scleroderma Systemic sclerosis Raynaud's disease Raynaud's syndrome Scleroderma Systemic sclerosis documented in this encounter Care Teams Game Programer Relationship Specialty Start Date End Date Lilibeth Phillips MD [address] [place] [address] PCP - General 10/12/10 03/26/12 documented as of this encounter
--- OUTSIDE RECORDS SUMMARY | 2024-09-14 13:14 | XMS_ITS | Encounter Summary ---
Author Organization [facility] Address [facility] [place] [address] Care Team Providers Care Absorption Plant Operator Name Role Phone Lilibeth Phillips MD Primary Care Provider [phone] Reason for Visit * Reason Comments Chronic Kidney Disease Encounter Details Date Type Department Care Team (Latest Contact Info) Description 09/28/2011 9:40 AM EST Office Visit [place] [address] Cash Sawyer MD [facility] [place] [address] A, Nurse Clinician None CKD (chronic kidney disease) stage 4, GFR 15-29 ml/min; CKD (chronic kidney disease) stage 3, GFR 30-59 ml/min; Scleroderma; GERD (gastroesophageal reflux disease) Discharge Disposition: Home Social History Tobacco [...] Sign Reading Time Taken Comments Blood Pressure 124/72 09/28/2011 9:54 AM EST Pulse 80 09/28/2011 9:54 AM EST Temperature - - Respiratory Rate - - Oxygen Saturation - - Inhaled Oxygen Concentration - - Weight 56.6 kg (124 lb 12.8 oz) 09/28/2011 9:54 AM EST Height 170.2 cm (5' 7) 09/28/2011 9:54 AM EST Body Mass Index 19.55 09/28/2011 9:54 AM EST documented in this encounter Patient Instructions * Patient Instructions* Wendy Albarado RN - 09/28/2011 10:27 AM EST No medication changes. Labs every 3 months. documented in this encounter Progress Notes * Cash Sawyer MD - 09/28/2011 9:47 AM EST [facility] [address] [facility] [place] [address] Reason for Clinic Visit: Systems Review and CKD management. Seen in clinic with: Pallavi Albarado RN, Continuing Static Balancer (CCM) CKD related to: scleraderma crisis History of Present Illness: Scleraderma diagnosed in 1990 and kidney crisis happened in April 2010. Last dialysis was in June at [facility] (dialyzed for 2 months). She was last seen in April since then no illness or hospitalization. She moved to her own house in [place], [place]. She is much happier not planning to be on the road this winter. Constant pain in the right flank 4/10 on pain scale. Education: 3-4 gram sodium diet discusssed, low potassium diet discussed Anticipated Renal Replacement Therapy Plan: Was on HD through tunnelled catheter from April 27 to July 14 at [facility] for the last 3 weeks of dialysis. Transplant Evaluation: will trend Creatinine levels to determine if this is necessary Review of Systems: Sign/Symptom Comments Activity level/fatigue: Yes energy is improved. Change in sleep patterns: No problem, Nocturia: None to one Appetite changes: No avoids potassium foods I'm always hungry. Food aversions: No Nausea: None since restarting the nexium twice a day. Vomiting: None Bowels: No Diarrhea/Constipation Edema: None today But does get swelling with heat Shortness of breath: None Orthopnea/PND: No PND; 1 pillow Muscle Cramping: No Cold intolerance: Yes Itching: No Bruising/bleeding: No Mental Status Changes: No Recent Home Blood Pressure Control: 120/80 At night 135/83 Recent Lipid Management: None Additional CCM Comments: How's your health been in the last 4 weeks: Poor Fair Good Very Good Excellent Stiffness in her hands in the AM is somewhat worse. Cristine is working well for the pain in her hands. She has dual citizenship in [place] and [place] Hepatitis B Status: Serum Testing Date of Testing Results Hep B sAb/Hep B sAg not tested Vaccination Status: Unknown Fistula Date/Type of Initial Access/Surgeon: Had tunnelled dialysis catheter removed at [facility] in June 2010. No plans for fistula at this time. PMH: Patient Active Problem List Diagnoses Code ??? Anemia associated with chronic renal failure 285.21K ??? CKD (chronic kidney disease) stage 4, GFR 15-29 ml/min 585.4F ??? GERD (gastroesophageal reflux disease) 530.81S ??? Scleroderma 710.1C ??? Raynaud's disease 443.0A No Known Allergies Outpatient prescriptions marked as taking for the 09/28/11 encounter (Office Visit) with CASH SAWYER Medication Sig Dispense Refill ??? amlodipine (NORVASC) 2.5 mg tablet Take 7.5 mg by mouth daily. ??? Acetaminophen 650 mg Tab Take 1,300 mg by mouth daily as needed. ??? Vitamin E 200 unit Tab Take 1,200 Int'l Units by mouth daily. ??? esomeprazole (NEXIUM) 40 mg capsule Take 1 capsule by mouth 2 times daily. 60 capsule 12 ??? fosinopril (MONOPRIL) 40 mg tablet Take 1 tablet by mouth 2 times daily. 60 tablet 11 ??? ALPRAZolam (XANAX) 0.5 mg tablet Take 0.5 mg by mouth 2 times daily as needed. ??? codeine 30 mg tablet Take 30-60 mg by mouth every 4 hours as needed. ??? nitroGLYcerin (NITROGLYN) 2 % ointment Place 0.5 inches onto the skin every 6 hours. ??? B Complex-Vitamin C-Folic Acid (B AEQLDHZ-Z-[id number] ACID) 1 mg capsule 1 MG = 1 Capsule(s) PO Once daily Physical Exam: BP 124/72 Pulse 80 Ht 170.2 cm (5' 7) Wt 56.609 kg (124 lb 12.8 oz) BMI 19.55 kg/m2 If exam WNL X Abnormal findings General appearance Obvious sclerodermatous changes diffusely Head x Eyes ENT Neck x Respiratory clear COR/Vascular rrr Abdomen nt/nd Skin As above Neuro x Asterixis Extremities No edema Other Labs Results for AMBER DAWSON ( ) as of 09/28/2011 12:52 Ref. Range 05/18/2011 11:01 06/30/2011 00:00 08/23/2011 00:00 09/20/2011 00:00 09/28/2011 09:09 09/28/2011 09:10 WBC Latest Range: 4.0-10.0 x10(3)/mcL 8.8 8.6 RBC Latest Range: 3.93-5.22 x10(6)/mcL 3.86 (L) 3.91 (L) Hemoglobin Latest Range: 11.2-15.7 gm/dL 12.6 12.3 (External Lab) 11.8 (External Lab) 12.5 Hematocrit Latest Range: 34.0-45.0 % 37.6 38 (External Lab) 35.8 (External Lab) 37.6 MCV Latest Range: 79.0-94.0 fL 97.4 (H) 96.2 (H) MCH Latest Range: 26.6-32.2 pg 32.6 (H) 32.0 MCHC Latest Range: 32.0-36.5 gm/dL 33.5 33.2 RDWSD Latest Range: 35.0-46.0 fL 45.5 45.3 RDWCV Latest Range: 10.9-14.4 % 12.8 13.1 Platelets Latest Range: 145-370 x10(3)/mcL 343 339 (External Lab) 344 MPV Latest Range: 9.0-12.0 fL 10.7 10.5 Neutr Abs (ANC) Latest Range: 1.50-6.30 x10(3)/mcL 6.28 6.35 (H) Neutrophils % Latest Range: 34.0-71.0 % 71.7 (H) 73.9 (H) Immature Gran % Latest Range: 0.00-0.66 % 0.10 0.20 Lymphocytes % Latest Range: 19.0-53.0 % 19.0 17.5 (L) Monocytes % Latest Range: 4.0-13.0 % 6.4 7.0 Eosinophils % Latest Range: 0.0-7.0 % 2.1 0.9 Basophils % Latest Range: 0.0-2.0 % 0.7 0.5 Yessica Gran Abs Latest Range: 0.00-0.05 x10(3)/mcL 0.01 0.02 Lymphocytes Abs Latest Range: 1.0-3.6 x10(3)/mcL 1.7 1.5 Monocyte Abs Latest Range: 0.2-1.0 x10(3)/mcL 0.6 0.6 Eosinophils Abs Latest Range: 0.0-0.5 x10(3)/mcL 0.2 0.1 Basophils Abs Latest Range: 0.0-0.2 x10(3)/mcL 0.1 0.0 Total Bilirubin Latest Range: 0.1-1.4 0.3 (External Lab) Alk Phos No range found 89 (External Lab) AST Latest Range: 13-35 12 (External Lab) ALT Latest Range: 7-35 29 (External Lab) Ferritin Latest Range: 15-150 ng/mL 15 27 Iron Latest Range: 30-150 mcg/dL 123 78 TIBC Latest Range: 250-450 mcg/dL 265 227 (L) Iron Saturation Latest Range: 20-50 % 46 34 Sodium Latest Range: 135-145 mmol/L 137 134 (External Lab) 134 (External Lab) 138 (External Lab) 139 Potassium Latest Range: 3.5-5.0 mmol/L 4.7 4.9 (External Lab) 4.9 (External Lab) 4.5 (External Lab)4.2 Chloride Latest Range: 98-107 mmol/L 105 105 (External Lab) 105 (External Lab) 105 (External Lab) 105 CO2 Latest Range: 22-31 mmol/L 22 24 (External Lab) 24 (External Lab) 26 (External Lab) 24 Anion Gap Latest Range: 5-15 mmol/L 10 10 BUN Latest Range: 8-18 mg/dL 26 (H) 39 (External Lab) 27 (External Lab) 24 (External Lab) 28 (H) Creatinine Latest Range: 0.70-1.20 mg/dL 1.82 (H) 1.7 (External Lab) 1.8 (External Lab) 1.7 (External Lab) 1.66 (H) Estimated GFR Latest Range: >=60 29 (L) 31.8 (External Lab) 30 (External Lab) 31.8 (External Lab) 33 (L) Glucose Lvl No range found 100 102 (External Lab) 77 (External Lab) 123 (External Lab) 73 Calcium Latest Range: 8.5-10.5 mg/dL 9.7 8.4 (External Lab) 9.0 (External Lab) 8.8 (External Lab) 9.6 Phosphorus Latest Range: 2.5-4.5 mg/dL 2.7 3.5 (External Lab) 3.2 (External Lab) 2.8 (External Lab)2.6 Total Protein Latest Range: 6.4-8.2 7.0 (External Lab) Albumin Latest Range: 3.2-5.2 gm/dL 4.4 4.1 (External Lab) 4.8 TSH Latest Range: 0.27-4.20 mcIU/mL 1.08 PTH Latest Range: 15-65 pg/mL 85 (H) 97 (H) U Creatinine No range found 34 U Ran Malb Calc No range found 150 U Ran Malb Conc No range found 51.1 Problem/Goal/Assessment/Plan: Problem: Chronic Kidney Disease Goal: Reduce rate of progression Education for CKD Stage specific issues Assessment: Estimated GFR (MDRD): 33 ml/min/1.73m2 CKD Stage 3 - Plan: Check BMP every 3 months (patient will do this at [facility]) Due in December,/stable overall Problem: Management of Anemia related to Chronic Kidney Disease (CKD) Goal: Hgb 11-12 g/dl Ferritin>100ng/ml TSAT>20% Assessment: Today's Results Hgb - 12.5 Ferritin - 27 TSAT - 34 Receiving erythropoetic stimulating agent? Yes Start Date: April 2010 Drug/Dose/Frequency: Patient is no longer needing injections Where administered (clinic/hosp/home): No longer receiving. Last IV Iron replacement therapy (Venofer), Date : Plan: not indicated at present Problem: Hypertension Goal: 130/80 mmHg Assessment: BP today - 124/72 Plan: maryan Problem: Proteinuria Goal: Alb:Cr ratio < 30mcg/mg Assessment: Today's results Alb:Cr ratio 150 Plan: ok Problem: Bone Disease Goal: Stage 3 PTH: 35-70 pg/ml Phos 2.7-4.6 Ca 8.5-10.5mg/dl Stage 4 PTH: 70-110 pg/ml Phos 2.7-4.6 Ca 8.5-10.5mg/dl Stage 5 PTH: 150-300 pg/ml Phos 3.5-5.5 Ca 8.5-10.5mg/dl Assessment: PTH today - 97 (pt not taking calcitriol) Phos today -2.9 (pt not taking binders) Calcium today - 9.6 Plan: ok Problem: Nutrition Goal: Albumin > 4.0gm/dl, Maintain ideal body weight Assessment: Albumin today - 4.8 Plan: ___stable Return to clinic: 6 months documented in this encounter Plan of Treatment Upcoming Encounters Date Type Department Care Team (Late st Contact Info) Description 10/07/2024 11:30 AM EST Office Visit Dermatology at [address] [phone] Jo Ordaz MD [facility] DERMATOLOGY [place], [place] [id number] 12/13/2024 11:30 AM EST [place] [phone] 12/13/2024 1:00 PM EST Office [place] [address] Kiet Pardo MD [facility] [place] [address] documented as of this encounter Procedures Procedure Name Priority Date/Time Associated Diagnosis Comments PTH STAT 09/28/2011 9:10 AM EST CKD (chronic kidney disease) stage 4, GFR 15-29 ml/min DIFFERENTIAL, AUTOMATED STAT 09/28/2011 9:10 AM EST IRON AND TIBC STAT 09/28/2011 9:10 AM EST CKD (chronic kidney disease) stage 4, GFR 15-29 ml/min CBC (WITH DIFF) STAT 09/28/2011 9:10 AM EST CKD (chronic kidney disease) stage 4, GFR 15-29 ml/min PHOSPHORUS STAT 09/28/2011 9:10 AM EST CKD (chronic kidney disease) stage 4, GFR 15-29 ml/min FERRITIN STAT 09/28/2011 9:10 AM EST CKD (chronic kidney disease) stage 4, GFR 15-29 ml/min ALBUMIN LEVEL STAT 09/28/2011 9:10 AM EST CKD (chronic kidney disease) stage 4, GFR 15-29 ml/min BASIC METABOLIC PANEL STAT 09/28/2011 9:10 AM EST CKD (chronic kidney disease) stage 4, GFR 15-29 ml/min PROTEIN/CREATININE RATIO, URINE Routine 09/28/2011 9:09 AM EST U ALBUMIN/CRE RATIO Routine 09/28/2011 9 :09 AM EST CKD (chronic kidney disease) stage 4, GFR 15-29 ml/min documented in this encounter Results * (ABNORMAL) DIFFERENTIAL, AUTOMATED (09/28/2011 9:10 AM EST) Neutrophil % 73.9(H) 34.0 - 71.0 % [facility] Neutrophil Absolute 6.35(H) 1.50 - 6.30 x10(3)/mc L [facility]ILLEN[facility] Lymph % 17.5(L) 19.0 - 53.0 % [facility]ILL[facility] Lymphocytes Abs 1.5 1.0 - 3.6 x10(3)/mc L [facility]ILLENNI[facility] Monocyte % 7.0 4.0 - 13.0 % [facility]ILLEN[facility] Monocyte Abs 0.6 0.2 - 1.0 x10(3)/mc L [facility]ILLENNI[facility] Eos % 0.9 0.0 - 7.0 % [facility] MILLENNIUM Eosinophils [...] Absolute 0.02 0.00 - 0.05 x10(3)/mc L [facility] Blood specimen (specimen) 09/28/2011 9:10 AM EST 09/28/2011 9:19 AM EST Cash Sawyer MD HEMATOLOGY ORDERABL ES Performing Organization Address [facility] Co de Phone Number [facility] * Albumin (09/28/2011 9:10 AM EST) Albumin 4.8 3.2 - 5.2 gm/dL [facility] Blood specimen (specimen) 09/28/2011 9:10 AM EST 09/28/2011 9:18 AM EST Cash Sawyer MD CHEMISTRY ORDERABLE S Performing Organization Address [facility]/ZIP Co de Phone Number [facility] * (ABNORMAL) Basic Metabolic Panel (non-fasting) (09/28/2011 9:10 AM EST) Glucose 73 60 - 199 mg/dL [facility] Comment:Diabetes: >=200 mg/d L plus symptoms Blood Urea Nitrogen 28(H) 8 - 18 mg/dL [facility] Creatinine 1.66(H) 0.70 - 1.20 mg/dL [facility] Sodium 139 135 - 145 mmol/L CERNER [...] 5 - 15 mmol/L [facility] Calcium 9.6 8.5 - 10.5 mg/dL [facility] Est Glomerular Filtration Rate 33(L) >=60 [facility] Comment: The National Kidney Disease Education Program (NKDEP) has recommended all laboratories report estimated GFR (eGFR) along with plasma creatinine measurements to assist you with recognition of early kidney disease. Caveats: ??Plasma creatinine should be at steady-state (unchanged within the past week). For patients multiply eGFR by 1.2.MDRD equation has not been validated for pediatric patients and is only valid for patients with age >= 18 years. At present, NKDEP does NOT recommend using [...] with diabetic kidney disease. References: http://nkdep.nih.gov/resources/NKDEP_Suggestn4Labs_0606_508.pdf http://www.kidney.org/professionals/kls/pdf/faq_gfr.pdf Blood specimen (specimen) 09/28/2011 9:10 AM EST 09/28/2011 9:18 AM EST Cash Sawyer MD CHEMISTRY ORDERABLE S Performing Organization Address City/[facility]/ZIP Co de Phone Number [facility] * (ABNORMAL) CBC (with Diff) (09/28/2011 9:10 AM EST) White Blood Cell 8.6 4.0 - 10.0 x10(3)/mc L [facility] Red Blood Cell 3.91(L) 3.93 - 5.22 x10(6)/mc L [facility] Hemoglobin 12.5 11.2 - 15.7 gm/dL [facility] Hematocrit 37.6 34.0 - 45.0 % [facility] MILLENNIUM Mean Cell Volume 96.2(H) 79.0 - 94.0 fL [facility]ILL[facility] Mean Cell Hemoglobin 32.0 26.6 - 32.2 pg [facility]ILLEN[facility] Mean Cell Hemoglobin Concentration 33.2 32.0 - 36.5 gm/dL [facility]ILLENNI[facility] Platelet 344 145 - 370 x10(3)/mc L [facility]ILL[facility] RDW Standard Deviation 45.3 35.0 - 46.0 fL [facility]ILLENNI[facility] RDW coefficient of variation 13.1 10.9 - 14.4 % [facility] Mean Platelet Volume 10.5 9.0 - 12.0 fL [facility] Blood specimen (specimen) 09/28/2011 9:10 AM EST 09/28/2011 9:19 AM EST Cash Sawyer MD HEMATOLOGY ORDERABL ES Performing Organization Address [facility]/ZIP Co de Phone Number [facility] * Ferritin (09/28/2011 9:10 AM EST) Ferritin 27 15 - 150 ng/mL [facility] Comment: Pediatric reference ranges not verified at [facility], interpret with caution. Reference ranges for females greater than 50 years of age approach values for men, i.e., 30-400 ng/mL. Blood specimen (specimen) 09/28/2011 9:10 AM EST 09/28/2011 9:19 AM EST Cash Sawyer MD CHEMISTRY ORDERABLE S Performing Organization Address [facility]/ZIP Co de Phone Number [facility] * (ABNORMAL) Iron and TIBC (09/28/2011 9:10 AM EST) Iron 78 30 - 150 mcg/dL [facility] TIBC 227(L) 250 - 450 mcg/dL [facility] MILLENNIUM Iron Saturation 34 20 - 50 % [facility] MILLENNIUM Blood specimen (specimen) 09/28/2011 9:10 AM EST 09/28/2011 9:18 AM EST Cash Sawyer MD CHEMISTRY ORDERABLE S Performing Organization Address [facility] Phone Number [facility] * Phosphorus (09/28/2011 9:10 AM EST) Phosphorus 2.6 2.5 - 4.5 mg/dL [facility] MILLENNIUM Blood specimen (specimen) 09/28/2011 9:10 AM EST 09/28/2011 9:18 AM EST Cash Sawyer MD CHEMISTRY ORDERABLE S Performing Organization Address [facility] de Phone Number [facility]ELIS[facility] * (ABNORMAL) PTH (09/28/2011 9:10 AM EST) Parathyroid Hormone 97(H) 15 - 65 pg/mL [facility] MILLENNIUM Blood specimen (specimen) 09/28/2011 9:10 AM EST 09/28/2011 9:19 AM EST Cash Sawyer MD CHEMISTRY ORDERABLE S Performing Organization Address [facility] Co de Phone Number [facility] * PROTEIN/CREATININE RATIO, URINE (09/28/2011 9:09 AM EST) Creatinine, Urine 33 mg/dL [facility] MILLENNIUM Protein, Urine 12 0 - 12 mg/dL [facility]ILL[facility] Protein / Creatinine Ratio, Urine 0.4 ratio [facility] Urine specimen (specimen) 09/28/2011 9:09 AM EST 09/28/2011 9:19 AM EST Cash Sawyer MD URINE ORDERABLES Performing Organization Address [facility] de Phone Number [facility] * Microalbumin, urine, random (09/28/2011 9:09 AM EST) Creatinine, Urine 34 mg/dL [facility] MILLENNIUM Albumin, Urine 51.1 mg/L [facility] R MILLENNI[facility] Albumin / Creatinin Ratio, Urine 150 mcg/mg Cr [facility] Comment: Reference Range* Random collection (mcg/mg creatinine) Normal ?<30 Microalbuminuria ?? 30 - 300 Clinical Albuminuria ?? >300 *English Diabetes Association. Diabetic Nephropathy. Diabetes Care 1997;(Suppl 1):S24-S27 Exercise within 24 hour, infection, fever, CHF, marked hyperglycemia, and marked hypertension may elevate urinary albumin excretion over baseline values. Urine specimen (specimen) 09/28/2011 9:09 AM EST 09/28/2011 9:19 AM EST Narrative Authorizing Provider Result Cory Sawyer MD URINE ORDERABLES Performing Organization Address [facility] de Phone Number [facility] documented in this encounter Visit Diagnoses Diagnosis CKD (chronic kidney disease) stage 4, GFR 15-29 ml/min Chronic kidney disease, Stage IV (severe) CKD (chronic kidney disease) stage 3, GFR 30-59 ml/min Chronic kidney disease, Stage III (moderate) Scleroderma Systemic sclerosis GERD (gastroesophageal reflux disease) Esophageal reflux documented in this encounter Care Teams Absorption Plant Operator Relationship Specialty Start Date End Date Lilibeth Phillips MD [address] [place] [address] PCP - General 10/12/10 03/26/12 documented as of this encounter
--- OUTSIDE RECORDS SUMMARY | 2024-09-14 13:14 | XMS_ITS | Encounter Summary ---
Author Organization [facility] [place] [address] Care Team Providers Care Naval Aircrewman Name Role Phone Lilibeth Phillips MD Primary Care Provider [phone] Encounter Details Date Type Department Care Team (Late st Contact Info) Description 05/17/2011 Abstract Nephrology [place] [address] Анна Morales RN Social History Tobacco Use Types Packs/Day Years Used Date Smoking Tobacco: Former Cigarettes Q uit: 03/30/1988 Alcohol Use Standard Drinks/Week Comments No 0 [...] at [facility] [address] [place] [address] oJ Ordaz MD [facility] [place] [place] [address] 12/13/2024 11:30 AM EST Appointment [place] [address] 12/13/2024 1:00 PM EST Office [place] [address] Kiet Pardo MD [facility] [place] [address] documented as of this encounter Visit Diagnoses Not on filedocumented in this encounter Care Teams [employer] Aircrew[employer] Relationship Specialty Start Date End Date Lilibeth Phillips MD [address] [place] [address] PCP - General 10/12/10 03/26/12 documented as of this encounter
--- OUTSIDE RECORDS SUMMARY | 2024-09-14 13:14 | XMS_ITS | Encounter Summary ---
[place] [address] Care Team Providers Care Cashier Associate Name Role Phone Lilibeth Phillips MD Primary Care Provider [phone] Reason for Visit * Reason Onset Date Comments Other 11/03/2011 prescription ord ers to [facility] Encounter Details Date Type Department Care Team (Late st Contact Info) Description 11/03/2011 Telephone Nephrology [place] [address] Randa Garcia RN NEPHROLOGY HYPERTENSION Other (prescription orders to [facility]) Social History Tobacco Use Types Packs/Day Years [...] Telephone Encounter - Randa Garcia RN - 11/03/2011 9:25 AM EST Prescriptions printed and signed, sent to [facility]. Norvasc and Nexium. documented in this encounter Plan of Treatment Upcoming Encounters Date Type Department Care Team (Late st Contact Info) Description 10/07/2024 11:30 AM EST Office Visit Dermatology at [facility] [address] [place] [address] Jo Ordaz MD [facility] [place] [address] 12/13/2024 11:30 AM EST Appointment [place] [phone] 12/13/2024 1:00 PM EST Office Visit [place] [phone] Kiet Pardo MD [facility] [place] [address] documented as of this encounter Visit Diagnoses Diagnosis CKD (chronic kidney disease) stage 3, GFR 30-59 ml/min Chronic kidney disease, Stage III (moderate) Scleroderma Systemic sclerosis GERD (gastroesophageal reflux disease) Esophageal reflux documented in this encounter Care Teams Cashier Associate Relationship Specialty Start Date End Date Lilibeth Phillips MD [address] [place] [address] PCP - General 10/12/10 03/26/12 documented as of this encounter
--- OUTSIDE RECORDS SUMMARY | 2024-09-14 13:14 | XMS_ITS | Encounter Summary ---
Author Organization Formerly [facility] [place] [address] Care Team Providers Care Automotive Upholsterer Name Role Phone Lilibeth Phillips MD Primary Care Provider [phone] Reason for Visit * Reason Comments Chronic Kidney Disease Encounter Details Date Type Department Care Team (Latest Contact Info) Description 05/18/2011 11:00 AM EDT Office Visit Ne[place] [address] Cash Sawyer MD [facility] [place] [address] A, Nurse Clinician None CKD (chronic kidney disease) stage 4, GFR 15-29 ml/min; Anemia associated with chronic renal failure; Scleroderma; GERD (gastroesophageal reflux disease) Discharge Disposition: [...] Sign Reading Time Taken Comments Blood Pressure 104/72 05/18/2011 11:28 AM EDT Pulse 72 05/18/2011 11:28 AM EDT Temperature - - Respiratory Rate - - Oxygen Saturation - - Inhaled Oxygen Concentration - - Weight 56.1 kg (123 lb 9.6 oz) 05/18/2011 11:28 AM EDT Height 167.6 cm (5' 6) 05/18/2011 11:28 AM EDT Body Mass Index 19.95 05/18/2011 11:28 AM EDT documented in this encounter Patient Instructions * Patient Instructions* Wendy Albarado RN - 05/18/2011 12:02 PM EDT Return to Kidney Clinic in June. (We will try to set up on Jun 21 with your other appointment). Call monthly and let us know how you are doing. Pallavi Albarado [phone] Pallavi will call Medicaid to see if you can get the nexium since the prilosec is not working. documented in this encounter Progress Notes * Cash Sawyer MD - 05/18/2011 11:19 AM EDT [facility] [address] [place] [address] Reason for Clinic Visit: Systems Review and CKD management. Seen in clinic with: Pallavi Albarado RN, Continuing Operations Assistant (CCM) CKD related to: scleraderma crisis History of Present Illness: Scleraderma diagnosed in 1990 and kidney crisis happened in April 2010. Last dialysis was in June at [facility] (dialyzed for 2 months). Back from [place], Creatinine followed monthly at the highest 1.9 this winter. She was last seen in August, since then no illness or hospitalization. Norvasc increased in September due the ischemic lesions. 3 months after the increase she was able tostart playing the guitar again. Currently one small dark spot on her left thumb. She has been extremely tired, this waxes and wanes, but she falls asleep anywhere and does not wake feeling refreshed. Education: 3-4 gram sodium diet discusssed, low potassium diet discussed Anticipated Renal Replacement Therapy Plan: Was on HD through tunnelled catheter from April 27 to July 14 at [facility] [place] for the last 3 weeks of dialysis. Transplant Evaluation: will trend Creatinine levels to determine if this is necessary Review of Systems: Sign/Symptom Comments Activity level/fatigue: Yes energy is up and down, some days she just can't get up and go especially right before her menses. I can sleep anywhere Falls asleep easily Change in sleep patterns: No problem, but not really refreshed Nocturia: None Appetite changes: No avoids potassium foods Recent gain of 8 lb during the winter, had to work hardto gain weight. She eats a lot! Food aversions: No Nausea: None Has a lot stomach burning and the omeprazole and ranitidine is not working. She has been on nexium in the past and it worked but [place] Medicaid will not pay for the nexium. Taking 4-5 rolaids a day. Vomiting: None Bowels: No Diarrhea/Constipation Edema: None today But does get swelling with salty foods Shortness of breath: None Orthopnea/PND: No PND; 1 pillow Muscle Cramping: No Cold intolerance: Yes Itching: No Bruising/bleeding: No Mental Status Changes: No Recent Home Blood Pressure Control: 120/80 In the am And 135 at night Recent Lipid Management: Additional CCM Comments: How's your health been in the last 4 weeks: Poor Fair Good Very Good Excellent (TIRED) Lives with boyfriend in [place]. She has dual citizenship in both [place] and [place]. Hepatitis B Status: Serum Testing Date of Testing Results Hep B sAb/Hep B sAg not tested Vaccination Status: Unknown Fistula Date/Type of Initial Access/Surgeon: Had tunnelled dialysis catheter removed at [facility] in June. No plans for fistula at this time. PMH: Patient Active Problem List Diagnoses Code ??? Anemia associated with chronic renal failure 285.21K ??? CKD (chronic kidney disease) stage 4, GFR 15-29 ml/min 585.4F ??? GERD (gastroesophageal reflux disease) 530.81S ??? Scleroderma 710.1C No Known Allergies Outpatient prescriptions marked as taking for the 05/18/11 encounter (Office Visit) with CASH SAWYER Medication Sig Dispense Refill ??? Acetaminophen 650 mg Tab Take 1,300 mg by mouth daily as needed. ??? omeprazole (PRILOSEC) 40 mg capsule Take 40 mg by mouth daily. ??? Vitamin E 200 unit Tab Take 1,200 Int'l Units by mouth daily. ??? ALPRAZolam (XANAX) 0.5 mg tablet Take 0.5 mg by mouth 2 times daily as needed. ??? codeine 30 mg tablet Take 30-60 mg by mouth every 4 hours as needed. ??? fosinopril (MONOPRIL) 40 mg tablet Take 1 tablet by mouth 2 times daily. 30 tablet 11 ??? ranitidine (ZANTAC) 150 mg tablet Take 150 mg by mouth daily as needed. ??? nitroGLYcerin (NITROGLYN) 2 % ointment Place 0.5 inches onto the skin every 6 hours. ??? B Complex-Vitamin C-Folic Acid (B YOZMMNH-Y-ZZLDT ACID) 1 mg capsule 1 MG = 1 Capsule(s) PO Once daily ??? amlodipine (NORVASC) 2.5 mg tablet 2.5 MG = 1 Tablet(s) PO Twice daily ??? DISCONTD: acetaminophen (TYLENOL) 325 mg tablet Physical Exam: BP 104/72 Pulse 72 Ht 1.676 m (5' 6) Wt 56.065 kg (123 lb 9.6 oz) BMI 19.95 kg/m2 If exam WNL X Abnormal findings General appearance nad Head x Eyes ENT Neck x Respiratory clear COR/Vascular rrr Abdomen nt/nd Skin Sclerodermatous changes Neuro nonfocal Asterixis Extremities No edema Other Labs Results for AMBER DAWSON ( ) as of 05/24/2011 09:09 Ref. Range 03/01/2011 00:00 05/03/2011 00:00 05/18/2011 11:01 WBC Latest Range: 4.0-10.0 x10(3)/mcL 8.8 RBC Latest Range: 3.93-5.22 x10(6)/mcL 3.86 (L) Hemoglobin Latest Range: 11.2-15.7 gm/dL 11.9 (A) 12.3 (External Lab) 12.6 Hematocrit Latest Range: 34.0-45.0 % 36 37 (External Lab) 37.6 MCV Latest Range: 79.0-94.0 fL 97.4 (H) MCH Latest Range: 26.6-32.2 pg 32.6 (H) MCHC Latest Range: 32.0-36.5 gm/dL 33.5 RDWSD Latest Range: 35.0-46.0 fL 45.5 RDWCV Latest Range: 10.9-14.4 % 12.8 Platelets Latest Range: 145-370 x10(3)/mcL 343 MPV Latest Range: 9.0-12.0 fL 10.7 Neutr Abs (ANC) Latest Range: 1.50-6.30 x10(3)/mcL 6.28 Neutrophils % Latest Range: 34.0-71.0 % 71.7 (H) Immature Gran % Latest Range: 0.00-0.66 % 0.10 Lymphocytes % Latest Range: 19.0-53.0 % 19.0 Monocytes % Latest Range: 4.0-13.0 % 6.4 Eosinophils % Latest Range: 0.0-7.0 % 2.1 Basophils % Latest Range: 0.0-2.0 % 0.7 Yessica Gran Abs Latest Range: 0.00-0.05 x10(3)/mcL 0.01 Lymphocytes Abs Latest Range: 1.0-3.6 x10(3)/mcL 1.7 Monocyte Abs Latest Range: 0.2-1.0 x10(3)/mcL 0.6 Eosinophils Abs Latest Range: 0.0-0.5 x10(3)/mcL 0.2 Basophils Abs Latest Range: 0.0-0.2 x10(3)/mcL 0.1 Ferritin Latest Range: 15-150 ng/mL 15 Iron Latest Range: 30-150 mcg/dL 123 TIBC Latest Range: 250-450 mcg/dL 265 Iron Saturation Latest Range: 20-50 % 46 Sodium Latest Range: 135-145 mmol/L 137 141 (External Lab) 137 Potassium Latest Range: 3.5-5.0 mmol/L 5.1 4.5 (External Lab) 4.7 Chloride Latest Range: 98-107 mmol/L 104 105 (External Lab) 105 CO2 Latest Range: 22-31 mmol/L 19 (A) 25 (External Lab) 22 Anion Gap Latest Range: 5-15 mmol/L 10 BUN Latest Range: 8-18 mg/dL 23 (A) 29 (External Lab) 26 (H) Creatinine Latest Range: 0.70-1.20 mg/dL 2.2 (A) 2.0 (External Lab) 1.82 (H) Estimated GFR Latest Range: >=60 25 26.4 (External Lab) 29 (L) Glucose Lvl No range found 85 86 (External Lab) 100 Calcium Latest Range: 8.5-10.5 mg/dL 9.6 8.4 (External Lab) 9.7 Phosphorus Latest Range: 2.5-4.5 mg/dL 3.1 (External Lab) 2.7 Albumin Latest Range: 3.2-5.2 gm/dL 4.4 TSH Latest Range: 0.27-4.20 mcIU/mL 1.08 PTH Latest Range: 15-65 pg/mL 85 (H) Problem/Goal/Assessment/Plan: Problem: Chronic Kidney Disease Goal: Reduce rate of progression Education for CKD Stage specific issues Assessment: Estimated GFR (MDRD): 29 ml/min/1.73m2 CKD Stage 4 Plan: Fatiged but I don't think this reflects uremia Will check other metabolics. If it continues, may consider sleep study Problem: Management of Anemia related to Chronic Kidney Disease (CKD) Goal: Hgb 11-12 g/dl Ferritin>100ng/ml TSAT>20% Assessment: Today's Results Hgb - 12.6 Ferritin - 15 TSAT - 46 Receiving erythropoetic stimulating agent? No (received several doses after HD was stopped) None since Fall 2009 Last IV Iron replacement therapy (Venofer), Date : none Plan: ok for now Problem: Hypertension Goal: 130/80 mmHg Assessment: BP today - 104/72 Plan: ok Problem: Bone Disease Goal: Stage 3 PTH: 35-70 pg/ml Phos 2.7-4.6 Ca 8.5-10.5mg/dl Stage 4 PTH: 70-110 pg/ml Phos 2.7-4.6 Ca 8.5-10.5mg/dl Stage 5 PTH: 150-300 pg/ml Phos 3.5-5.5 Ca 8.5-10.5mg/dl Assessment: PTH today -85 (pt not taking calcitriol) Phos today 2.7- (pt not taking binders) Calcium today - 9.7 Plan: ok Problem: Nutrition Goal: Albumin > 4.0gm/dl, Maintain ideal body weight Assessment: Albumin today - 4.4 Plan: ok Problem: Reflux Assessement: Omeprazole 40mg and Ranitidine 150mg not effective. Plan: Will see if nexium can be prior authorized. Addendum: PA for nexium is good for one year. Problem: Fatigue Assessment: TSH pending Iron Studies Pending Plan: If fatigue continues consider sleep study. Return to clinic: on June 21 documented in this encounter Plan of Treatment Upcoming Encounters Date Type Department Care Team (Late st Contact Info) Description 10/07/2024 11:30 AM EST Office Visit Dermatology at [address] [address] Jo Ordaz MD [facility] [address] 12/13/2024 11:30 AM EST Appointment [place] [address] 12/13/2024 1:00 PM EST Office [place] [address] Kiet Pardo MD [facility] [address] documented as of this encounter Procedures Procedure Name Priority Date/Time Associated Diagnosis Comments PTH STAT 05/18/2011 11:01 AM EDT CKD (chronic kidney disease) stage 4, GFR 15-29 ml/min DIFFERENTIAL, AUTOMATED STAT 05/18/2011 11:01 AM EDT IRON AND TIBC STAT 05/18/2011 11:01 AM EDT CKD (chronic kidney disease) stage 4, GFR 15-29 ml/min Anemia associated with chronic renal failure CBC (WITH DIFF) STAT 05/18/2011 11:01 AM EDT CKD (chronic kidney disease) stage 4, GFR 15-29 ml/min Anemia associated with chronic renal failure TSH STAT 05/18/2011 11:01 AM EDT PHOSPHORUS STAT 05/18/2011 11:01 AM EDT CKD (chronic kidney disease) stage 4, GFR 15-29 ml/min FERRITIN STAT 05/18/2011 11:01 AM EDT CKD (chronic kidney disease) stage 4, GFR 15-29 ml/min Anemia associated with chronic renal failure ALBUMIN LEVEL STAT 05/18/2011 11:01 AM EDT CKD (chronic kidney disease) stage 4, GFR 15-29 ml/min BASIC METABOLIC PANEL STAT 05/18/2011 11:01 AM EDT CKD (chronic kidney disease) stage 4, GFR 15-29 ml/min documented in this encounter Results * TSH (05/18/2011 11:01 AM EDT) Thyroid Stimulating Hormone 1.08 0.27 - 4.20 mcIU/mL CERNER MILLENNIUM Blood specimen (specimen) 05/18/2011 11:01 AM EDT 05/18/2011 11:10 AM EDT Cash Sawyer MD CHEMISTRY ORDERABLE S SALVADOR TORRESENNIUM * (ABNORMAL) REFLEX LAB-A-DIFF (05/18/2011 11:01 AM EDT) Neutrophil % 71.7(H) 34.0 - 71.0 % CERNER MILLENNIUM Neutrophil Absolute 6.28 1.50 - 6.30 x10(3)/mc L CERNER MILLENNIUM Lymph % 19.0 19.0 - 53.0 % CERNER MILLENNIUM Lymphocytes Abs 1.7 1.0 - 3.6 x10(3)/mc L CERNER MILLENNIUM Monocyte % 6.4 4.0 - 13.0 % CERNER MILLENNIUM Monocyte Abs 0.6 0.2 - 1.0 x10(3)/mc L CERNER MILLENNIUM Eos % 2.1 0.0 - 7.0 % CERNER MILLENNIUM Eosinophils Abs 0.2 0.0 - 0.5 x10(3)/mc L CERNER MILLENNIUM Basophil % 0.7 0.0 - 2.0 % CERNER MILLENNIUM Baso Absolute 0.1 0.0 - 0.2 x10(3)/mc L CERNER MILLENNIUM [...] x10(3)/mc L CERNER MILLENNIUM Blood specimen (specimen) 05/18/2011 11:01 AM EDT 05/18/2011 11:06 AM EDT Cash Sawyer MD HEMATOLOGY ORDERABL ES [facility] * (ABNORMAL) PTH (05/18/2011 11:01 AM EDT) Parathyroid Hormone 85(H) 15 - 65 pg/mL [facility] MILLENNIUM Blood specimen (specimen) 05/18/2011 11:01 AM EDT 05/18/2011 11:06 AM EDT Cash Sawyer MD CHEMISTRY ORDERABLE S [facility] * Ferritin (05/18/2011 11:01 AM EDT) Ferritin 15 15 - 150 ng/mL [facility] Comment: Pediatric reference ranges not verified at [facility], interpret with caution. Reference ranges for females greater than 50 years of age approach values for men, i.e., 30-400 ng/mL. Blood specimen (specimen) 05/18/2011 11:01 AM EDT 05/18/2011 11:06 AM EDT Cash Sawyer MD CHEMISTRY ORDERABLE S CERNER MELISSAENNIUM * Iron and TIBC (05/18/2011 11:01 AM EDT) Iron 123 30 - 150 mcg/dL CERNER MILLENNIUM TIBC 265 250 - 450 mcg/dL CERNER MILLENNIUM Iron Saturation 46 20 - 50 % CERN ER MILLENNIUM Blood specimen (specimen) 05/18/2011 11:01 AM EDT 05/18/2011 11:06 AM EDT Cash Sawyer MD CHEMISTRY ORDERABLE S CERNER MILLENNIUM * Phosphorus (05/18/2011 11:01 AM EDT) Phosphorus 2.7 2.5 - 4.5 mg/dL CERNER MILLENNIUM Blood specimen (specimen) 05/18/2011 11:01 AM EDT 05/18/2011 11:06 AM EDT Cash Sawyer MD CHEMISTRY ORDERABLE S CERNER MILLENNIUM * (ABNORMAL) CBC (with Diff) (05/18/2011 11:01 AM EDT) White Blood Cell 8.8 4.0 - 10.0 x10(3)/mc L CERNER MILLENNIUM Red Blood Cell 3.86(L) 3.93 - 5.22 x10(6)/mc L CERNER MILLENNIUM Hemoglobin 12.6 11.2 - 15.7 gm/dL CERNER MILLENNIUM Hematocrit 37.6 34.0 - 45.0 % CERNER MILLENNIUM Mean Cell Volume 97.4(H) 79.0 - 94.0 fL CERNER MILLENNIUM Mean Cell Hemoglobin 32.6(H) 26.6 - 32.2 pg CERNER MILLENNIUM Mean Cell Hemoglobin Concentration 33.5 32.0 - 36.5 gm/dL CERNER MILLENNIUM Platelet 343 145 - 370 x10(3)/mc L CERNER MILLENNIUM RDW Standard Deviation 45.5 35.0 - 46.0 fL CERNER MILLENNIUM RDW coefficient of variation 12.8 10.9 - 14.4 % CERNER MILLENNIUM Mean Platelet Volume 10.7 9.0 - 12.0 fL CERNER MILLENNIUM Blood specimen (specimen) 05/18/2011 11:01 AM EDT 05/18/2011 11:06 AM EDT Cash Sawyer MD HEMATOLOGY ORDERABL ES CERNER MILLENNIUM * (ABNORMAL) Basic Metabolic Panel (non-fasting) (05/18/2011 11:01 AM EDT) Glucose 100 60 - 199 mg/dL CERNER MILLENNIUM Comment:Diabetes: >=200 mg/d L plus symptoms Blood Urea Nitrogen 26(H) 8 - 18 mg/dL CERNER MILLENNIUM Creatinine 1.82(H) 0.70 - 1.20 mg/dL CERNER MILLENNIUM Sodium 137 135 - 145 mmol/L CERNER MILLENNIUM Potassium 4.7 3.5 - 5.0 mmol/L CERNER MILLENNIUM Comment: Please note: ??Patients with WBC >100,000 may have falsely elevated Potassium levels. ??For accurate Potassium quantification in these patients send serum separator tube (gold top) for subsequent determinations. ??Contact the Clinical Chemistry Laboratory if there are any questions. Chloride 105 98 - 107 mmol/L CERNER MILLENNIUM Carbon Dioxide 22 22 - 31 mmol/L CERNER MILLENNIUM Anion Gap 10 5 - 15 mmol/L CERNER MILLENNIUM Calcium 9.7 8.5 - 10.5 mg/dL CERNER MILLENNIUM Est Glomerular Filtration Rate 29(L) >=60 CERNER MILLENNIUM Comment: The National Kidney [...] disease. References: http://nkdep.nih.gov/resources/NKDEP_Suggestn4Labs_0606_508.pdf http://www.kidney.org/professionals/kls/pdf/faq_gfr.pdf Blood specimen (specimen) 05/18/2011 11:01 AM EDT 05/18/2011 11:06 AM EDT Cash Sawyer MD CHEMISTRY ORDERABLE S Performing Organization Address City/[facility] Co de Phone Number SALVADOR [employer] * Albumin (05/18/2011 11:01 AM EDT) Albumin 4.4 3.2 - 5.2 gm/dL [facility]OR Poached JobsJUAN PABLO Blood specimen (specimen) 05/18/2011 11:01 AM EDT 05/18/2011 11:06 AM EDT Cash Sawyer MD CHEMISTRY ORDERABLE S Performing Organization Address City/State/[facility] Co de Phone Number SAL[facility]ADOR [employer] documented in this encounter Visit Diagnoses Diagnosis CKD (chronic kidney disease) stage 4, GFR 15-29 ml/min Chronic kidney disease, Stage IV (severe) Anemia associated with chronic renal failure Anemia in chronic kidney disease Scleroderma Systemic sclerosis GERD (gastroesophageal reflux disease) Esophageal reflux documented in this encounter Care Teams Automotive Upholsterer Relationship Specialty Start Date End Date Lilibeth Phillips MD [address] [place] [address] PCP - General 10/12/10 03/26/12 documented as of this encounter
--- OUTSIDE RECORDS SUMMARY | 2024-09-14 13:14 | XMS_ITS | Encounter Summary ---
Author Organization [facility] [place] [address] Care Team Providers Care Agricultural Systems Specialist Name Role Phone Lilibeth Phillips MD Primary Care Provider Encounter Details Date Type Department Care Team (Late st Contact Info) Description 2011 Orders Only Nephrology [place] [address] Social History Tobacco Use Types Packs/Day Years [...] Dermatology at [facility] [address] [place] [address] Jo Ordaz MD [facility] [place] [address] 12/13/2024 11:30 AM EST Appointment [place] [address] 12/13/2024 1:00 PM EST Office Visit Rheumatology at [facility] [place] [address] Kiet Pardo MD [facility] [place] [address] documented as of this encounter Procedures Procedure Name Priority Date/Time Associated Diagnosis Comments LAB SCAN Routine 05/03/2011 documented in this encounter Results * Scan Doc: Lab (05/03/2011) Historical Provider MD FAITH MGR SCAN EX T ORDR/RSLT documented in this encounter Visit Diagnoses Not on filedocumented in this encounter Care Teams Agricultural Systems Specialist Relationship Specialty Start Date End Date Lilibeth Phillips MD [address] [place] [address] PCP - General 10/12/10 03/26/12 documented as of this encounter
--- OUTSIDE RECORDS SUMMARY | 2024-09-14 13:14 | XMS_ITS | Encounter Summary ---
Author Organization [facility] [place] [address] Care Team Providers Care Ceramic Saw Tender Name Role Phone Lilibeth Phillips MD Primary Care Provider [phone] Reason for Visit * Reason Onset Date Comments Other 09/29/2011 medication leny tance program Encounter Details Date Type Department Care Team (Late st Contact Info) Description 09/29/2011 Telephone [place] [phone] Amber Duncan A Other (medication assistance program) Social History Tobacco Use Types Packs/Day Years [...] encounter Miscellaneous Notes * Telephone Encounter - Amber Duncan - 09/29/2011 9:28 AM EST Medication Assistance Program: Received a referral from Pallavi Albarado for assistance with Amber's Monopril, Norvasc and Nexium. I left Amber a voicemail and asked her to call me with any questions. I have sent applications to Amber for Nexium and Norvasc. There is no program available for Monopril assistance. I will follow up with the applications when they have been completed and returned with proof of household income. documented in this encounter Plan of Treatment Upcoming Encounters Date Type Department Care Team (Late st Contact Info) Description 10/07/2024 11:30 AM EST Office Visit Dermatology at [facility] [address] [place] [address] Jo Ordaz MD [facility] [place] [address] 12/13/2024 11:30 AM EST Appointment [place] [address] 12/13/2024 1:00 PM EST Office [place] [address] Kiet Pardo MD [facility] [place] [address] documented as of this encounter Visit Diagnoses Not on filedocumented in this encounter Care Teams Ceramic Saw Tender Relationship Specialty Start Date End Date Lilibeth Phillips MD [address] [place] [address] PCP - General 10/12/10 03/26/12 documented as of this encounter
--- OUTSIDE RECORDS SUMMARY | 2024-09-14 13:14 | XMS_ITS | Encounter Summary ---
Author Organization [facility] [place] [address] Care Team Providers Care E Commerce Director Name Role Phone Lilibeth Phillips MD Primary Care Provider [phone] Reason for Visit * Reason Comments Labs Only Encounter Details Date Type Department Care Team (Late st Contact Info) Description 09/23/2011 External Results Nephrology [place] [address] Wendy Albarado, RN Social History Tobacco Use [...] 11:30 AM EST Office Visit Dermatology at [facility] [address] [place] [address] Jo Ordaz MD [facility] [place] [address] 12/13/2024 11:30 AM EST Appointment [place] [address] 12/13/2024 1:00 PM EST Office [place] [address] Kiet Pardo MD [facility] [place] [address] documented as of this encounter Procedures Procedure Name Priority Date/Time Associated Diagnosis Comments EXTERNAL LAB RESULTS Routine 09/20/2011 documented in this encounter Results * (ABNORMAL) External Lab Results (09/20/2011) Calcium 8.8(Exter nal Lab) 8.7 - 10.7 Phosphorus 2.8(Exter nal Lab) 2.5 - 4.9 Glucose 123(Exter nal Lab) Blood Urea Nitrogen 24(Ornamental Metal Fabricator Apprentice al Lab) 4 - 21 Creatinine 1.7(Exter nal Lab) 0.5 - 1.1 Est Glomerular Filtration Rate 31.8(Exte rnal Lab) Protein, Total 7.0(Exter nal Lab) 6.4 - 8.2 Albumin 4.1(Exter nal Lab) 3.5 - 5.0 Bilirubin, Total 0.3(Exter nal Lab) 0.1 - 1.4 Alkaline Phosphatase 89(Ornamental Metal Fabricator Apprentice al Lab) Sodium 138(Exter nal Lab) 137 - 147 Potassium 4.5(Exter nal Lab) 3.4 - 5.3 Chloride 105(Exter nal Lab) 99 - 108 Carbon Dioxide 26(Ornamental Metal Fabricator Apprentice al Lab) 22 - 29 Aspartate Aminotransferase 12(Ornamental Metal Fabricator Apprentice al Lab) 13 - 35 Alanine Aminotransferase 29(Ornamental Metal Fabricator Apprentice al Lab) 7 - 35 Hemoglobin 11.8(Exte rnal Lab) 12.0 - 16.0 Hematocrit 35.8(Exte rnal Lab) 36.0 - 46.0 Historical Provider CHEMISTRY ORDERAB LES documented in this encounter Visit Diagnoses Not on filedocumented in this encounter Care Teams E Commerce Director Relationship Specialty Start Date End Date Lilibeth Phillips MD [address] [place] [address] PCP - General 10/12/10 03/26/12 documented as of this encounter
--- OUTSIDE RECORDS SUMMARY | 2024-09-14 13:14 | XMS_ITS | Encounter Summary ---
Author Organization [facility] Address [facility] [place] [address] Care Team Providers Care Director Of Strategic Initiatives Name Role Phone Lilibeth Phillips MD Primary Care Provider [phone] Encounter Details Date Type Department Care Team (Late st Contact Info) Description 09/20/2011 Orders Only [place] [address] Sumit Sawyer MD [facility] [place] [address] CKD (chronic kidney disease) stage 4, GFR [...] Dermatology at [facility] [address] [place] [address] Jo Ordaz MD [facility] [place] [address] 12/13/2024 11:30 AM EST [place] [address] 12/13/2024 1:00 PM EST Office [place] [address] Kiet Pardo MD [facility] [place] [address] [place] [address] documented as of this encounter Results * Albumin (09/28/2011 9:10 AM EST) Pathologist [facility] Albumin 4.8 3.2 - 5.2 gm/dL CERNER MILLENNIUM Blood specimen (specimen) 09/28/2011 9:10 AM EST 09/28/2011 9:18 AM EST Sumit Sawyer MD CHEMISTRY ORDERABLE S CERNER MILLENNIUM * (ABNORMAL) Basic Metabolic Panel (non-fasting) (09/28/2011 9:10 AM EST) Glucose 73 60 - 199 mg/dL CERNER MILLENNIUM Comment:Diabetes: [...] 9:10 AM EST 09/28/2011 9:18 AM EST Sumit Sawyer MD CHEMISTRY ORDERABLE S [facility] * (ABNORMAL) CBC (with Diff) (09/28/2011 9:10 [...] Platelet Volume 10.5 9.0 - 12.0 fL [facility] Blood specimen (specimen) 09/28/2011 9:10 AM EST 09/28/2011 9:19 AM EST Sumit Sawyer MD HEMATOLOGY ORDERABL ES [facility] MELISSAENNIUM * Ferritin (09/28/2011 9:10 AM EST) Ferritin 27 15 - 150 ng/mL [facility] MILLENNIUM Comment: Pediatric reference ranges not verified at [facility], interpret with caution. Reference ranges for females greater than 50 years of age approach values for men, i.e., 30-400 ng/mL. Blood specimen (specimen) 09/28/2011 9:10 AM EST 09/28/2011 9:19 AM EST Sumit Sawyer MD CHEMISTRY ORDERABLE S [facility] * (ABNORMAL) Iron and TIBC (09/28/2011 9:10 AM EST) Iron 78 30 - 150 mcg/dL [facility] MILLENNIUM TIBC 227(L) 250 - 450 mcg/dL [facility] MILLENNIUM Iron Saturation 34 20 - 50 % [facility] MILLENNIUM Blood specimen (specimen) 09/28/2011 9:10 AM EST 09/28/2011 9:18 AM EST Sumit Sawyer MD CHEMISTRY ORDERABLE S Performing Organization Address City/[facility] Co de Phone Number [facility] * Phosphorus (09/28/2011 9:10 AM EST) Phosphorus 2.6 2.5 - 4.5 mg/dL [facility] MELISSAENNIUM Blood specimen (specimen) 09/28/2011 9:10 AM EST 09/28/2011 9:18 AM EST Sumit Sawyer MD CHEMISTRY ORDERABLE S Performing Organization Address [facility] Co de Phone Number [facility] * (ABNORMAL) PTH (09/28/2011 9:10 AM EST) Parathyroid Hormone 97(H) 15 - 65 pg/mL [facility] Blood specimen (specimen) 09/28/2011 9:10 AM EST 09/28/2011 9:19 AM EST Sumit Sawyer MD CHEMISTRY ORDERABLE S Performing Organization Address [facility] Co de Phone Number [facility] * Microalbumin, urine, random (09/28/2011 9:09 AM EST) Creatinine, Urine 34 mg/dL [facility] MILLENNIUM Albumin, Urine 51.1 mg/L CERNE R MILLENNIUM Albumin / Creatinin Ratio, Urine 150 mcg/mg Cr [facility] MILL[facility]UM Comment: Reference Range* Random collection (mcg/mg creatinine) Normal ?<30 Microalbuminuria ?? 30 - 300 Clinical Albuminuria ?? >300 *[place] [employer]. Diabetic Nephropathy. Diabetes Care 1997;(Suppl 1):S24-S27 Exercise within 24 hour, infection, fever, CHF, marked hyperglycemia, and marked hypertension may elevate urinary albumin excretion over baseline values. Urine specimen (specimen) 09/28/2011 9:09 AM EST 09/28/2011 9:19 AM EST Sumit Sawyer MD URINE ORDERABLES Performing Organization Address City/State/ZIP Co ok Phone Number [facility] documented in this encounter Visit Diagnoses Diagnosis CKD (chronic kidney disease) stage 4, GFR 15-29 ml/min- Primary Chronic kidney disease, Stage IV (severe) documented in this encounter Care Teams Director Of Strategic Initiatives Relationship Specialty Start Date End Date Lilibeth Phillips MD [address] [place] [address] PCP - General 10/12/10 03/26/12 documented as of this encounter
--- OUTSIDE RECORDS SUMMARY | 2024-09-14 13:14 | XMS_ITS | Encounter Summary ---
Author Organization [facility] [place] [address] Care Team Providers Care Film Flat Inspector Name Role Phone Ameya Acosta DNP Primary Care Provider Encounter Details Date Type Department Care Team (Late st Contact Info) Description 08/17/2010 Orders Only [place] [address] Sumit Sawyer MD [facility] [place] [address] Social History Tobacco Use Types Packs/Day Years [...] EST Office Visit Dermatology at [place] [address] [place] [address] Jo Ordaz MD [facility] [place] [address] 12/13/2024 11:30 AM EST Appointment [place] [address] 12/13/2024 1:00 PM EST Office Visit [place] [address] Kiet Pardo MD [facility] [place] [address] documented as of this encounter Procedures Procedure Name Priority Date/Time Associated Diagnosis Comments SURGICAL PATHOLOGY REPORT Routine 08/17/2010 7:13 AM EDT documented in this encounter Results * Surgical Pathology Report (08/17/2010 7:13 AM EDT) Surgical Pathology Report [id number] ? Location: [facility] The signing pathologist has (i) examined the relevant preparation(s) for the specimen(s) and (ii) rendered or confirmed the diagnosis(es). . ?Pathology Surgical Pathology Final Report Clinical Information Specimen Submitted: CONSULTATION CASE A - 9 slides labeled [id number], collection date 05/05/10. [id number] Report to: [facility] Deptement De Pathologie [facility] Gross Description The [facility] pathology slide(s) are reviewed. ??Refer to Diagnosis and Specimen Submitted for specific case information. For the full text of the [facility] report(s)(in Latvian) please refer to Non- Documentation Pathology in the Clinical Information System (CIS). The text of the [facility] (case # [id number]) report is translated below: Specimen: Renal biopsy Clinical History: Known cutaneous scleroderma, arterial hypertension and severe renal insufficiency. Microangiopathy. Gross Description: 2 needle biopsies measuring 1 .0 and 0.4 cm in length. ??The ends of the long biopsy were cut and put aside for ultrastructural analysis. ??The remaining biopsies were then cut in half. ??One set was used for histology and the other was used for direct immunofluorescence . Microscopy: Examination of several serial cuts on 9 slides stained with H & E, PAS, Periodic Deshaun-Methenamine stain, Trichrome and Verhoeff Von Gieson. The specimen consists of a needle biopsy of [place] kidney. ??From twelve to fifteen glomeruli are counted on each cut of the two biopsies. ??No glomerular hyalinization [sclerosis?] is noted. ??The glomeruli all demonstrate mild thickening of the mesangial space which, in a few glomeruli, is more marked and associated with mesangial cellularity at the upper limits of normal. There are no intra- glomerular or glomerulo-capsular deposits. ??As for the tubules, there is no evidence of atrophy. ??There is mild interstitial fibrosis. ??There is no inflammatory interstitial infiltrate noted. ??The most remarkable finding is the small arteries which show an obliteration with a typical onion-skin appearance. ??The intima is multi-lamellar and the lumen of the small arteries is partially or completely obliterated. ??There is no thrombosis. In conclusion, this is an adequate needle biopsy of [place] kidney which shows glomerular and arteries compatible with renal disease in the category of scleroderma. Diagnosis: Needle biopsy of [place] kidney: . Gross Description ? Adequate biopsy: ?-Glomerular proliferation and arterial onion-skinning. ?-Absence of tubular atrophy and interstitial infiltrate. ?-Mild interstitial fibrosis. ?-Histologic picture consistent with glomerular and arterial ? disease of scleroderma. Translation by Jazlyn Duncan MD, 08/18/2010 Microscopic Description LIGHT MICROSCOPY ?? Two cores of cortex are present. ??Up to twenty-five glomeruli are evaluable. Two are globally sclerotic. ??The remaining glomeruli are normal in size and overall cellularity. ??A few areas of leukocytic infiltration are present. ??The PAS and silver stains show wrinkled, focally thickened basement membranes with some areas suggesting mesangiolysis. ??No crescents or adhesions are identified. ??The trichrome stain shows minimal interstitial fibrosis and minimal mononuclear inflammatory infiltration. ??Tubules are generally back to back, without significant atrophy or casts. ??The most striking histologic feature involves medium-sized interlobular arteries. ??These show, in longitudinal and cross sections, areas of pronounced subintimal edema and myxoid change, with areas of pronounced concentric lamination and onion skinning. ??No fibrinoid change or thromboses are identified. ??The Congo red stain is negative. IMMUNOFLUORESCENCE ?? No report available. ELECTRON MICROSCOPY ?? No report available. Diagnosis CONSULTATION CASE Outside slides labeled [id number], collection date 05/05/10: Kidney, needle biopsy: ?? 1. ??Acute vascular changes of thrombotic microangiopathy, consistent ? with scleroderma crisis. ?? 2. ??No significant interstitial fibrosis or tubular atrophy. CR-0 08/20/10 VMS 08/23/10 Verified by: ? Romain HEARD, Raudel Joe ?Pathologist ?(Electronic Signature) The attending pathologist whose signature appears on this report has reviewed all diagnostic slides and has edited the gross and/or microscopic portion of the report in rendering the final pathologic diagnosis. [facility] 08/17/2010 7:13 AM EDT Sumit Sawyer MD PATHOLOGY/CYTOLOGY ORDERABLES Performing Organization Address City/State/[facility] Co de Phone Number [facility] documented in this encounter Visit Diagnoses Not on filedocumented in this encounter Care Teams Film Flat Inspector Relationship Specialty Start Date End Date Ameya Acosta DNP [address] [place] [address] PCP - General Family Medicine 05/01/23 documented as of this encounter
--- OUTSIDE RECORDS SUMMARY | 2024-09-14 13:14 | XMS_ITS | Encounter Summary ---
Author Organization [facility] [address] Care Team Providers Care Inspector Raw Quartz Name Role Phone Lilibeth Phillips MD Primary Care Provider [phone] Reason for Visit * Reason Onset Date Comments Other 10/28/2011 medication leny tance program Encounter Details Date Type Department Care Team (Late st Contact Info) Description 10/28/2011 [place] [phone] Amber Duncan Other (medication assistance program) Social History Tobacco [...] * Telephone Encounter - Amber Duncan - 10/28/2011 10:20 AM EST Medication Assistance Program: Amber returned proof of income and completed applications for assistance with NorJet and Nexium. The applications have been sent to Dr. Sawyer to be completed. I will follow up with the applications when they have been returned. documented in this encounter Plan of Treatment Upcoming Encounters Date Type Department Care Team (Late st Contact Info) Description 10/07/2024 11:30 AM EST Office Visit Dermatology at [facility] [address] [place] [address] Jo Ordaz MD [facility] [place] [address] 12/13/2024 11:30 AM EST Appointment [place] [address] 12/13/2024 1:00 PM EST Office [place] [address] Kiet Pardo MD [facility] [place] [address] documented as of this encounter Visit Diagnoses Not on filedocumented in this encounter Care Teams Inspector Raw Quartz Relationship Specialty Start Date End Date Lilibeth Phillips MD [address] [place] [address] PCP - General 10/12/10 03/26/12 documented as of this encounter
--- OUTSIDE RECORDS SUMMARY | 2024-09-14 13:14 | XMS_ITS | Encounter Summary ---
Author Organization [facility] [place] [address] Care Team Providers Care Manager Of Exhibitions And Collections Name Role Phone Lilibeth Phillips MD Primary Care Provider Reason for Visit * Reason Onset Date Comments Other 11/16/2011 medication leny tance program Encounter Details Date Type Department Care Team (Late st Contact Info) Description 11/16/2011 [place] [phone] Amber Duncan A Other (medication assistance program) [...] * Telephone Encounter - Amber Duncan - 11/16/2011 12:31 PM EST Medication Assistance Program: Amber marked on the applications that she had medicaid. Call placed to Amber to clarify that she does not have active [place] Medicaid. She has applied and is waiting to hear a determination. The completed [email or web address] Connection to Care enrollment application has been sent to the [employer] with proof of income for assistance with Norvasc 2.5mg tablets (3 tablets daily). The completed [place] enrollment application has been sent to the [employer] with proof of income and a prescription for Nexium 40mg capsules (1 capsule 2 times daily). documented in this encounter Plan of Treatment Upcoming Encounters Date Type Department Care Team (Late st Contact Info) Description 10/07/2024 11:30 AM EST Office Visit Dermatology at [facility] [address] [place] [address] Jo Ordaz MD [facility] [place] [address] 12/13/2024 11:30 AM EST Appointment [place] [address] 12/13/2024 1:00 PM EST Office [place] [address] Kiet Pardo MD [facility] [place] [address] documented as of this encounter Visit Diagnoses Not on filedocumented in this encounter Care Teams Manager Of Exhibitions And Collections Relationship Specialty Start Date End Date Lilibeth Phillips MD [address] [place] [address] PCP - General 10/12/10 03/26/12 documented as of this encounter
--- OUTSIDE RECORDS SUMMARY | 2024-09-14 13:14 | XMS_ITS | Encounter Summary ---
[place] [address] Care Team Providers Care Manager Gaming Name Role Phone Lilibeth Phillips MD Primary Care Provider [phone] Reason for Visit * Reason Comments Follow-up Encounter Details Date Type Department Care Team ([facility] Contact Info) Description 06/21/2011 2:45 PM EDT [place] [address] Flako Pierre MD [address] [place] [address] Scleroderma (Primary Dx); Raynaud's disease Discharge Disposition: Home Social History [...] Sign Reading Time Taken Comments Blood Pressure 111/76 06/21/2011 2:59 PM EDT Pulse 78 06/21/2011 2:59 PM EDT Temperature 36.4 ??C (97.6 ??F) 06/21/2011 2:59 PM ED T Respiratory Rate 16 06/21/2011 2:59 PM EDT Oxygen Saturation 100% 06/21/2011 2:59 PM EDT Inhaled Oxygen Concentration - - Weight 57.6 kg (127 lb) 06/21/2011 2:59 PM EDT Height 170.2 cm (5' 7) 06/21/2011 2:59 PM EDT Body Mass Index 19.89 06/21/2011 2:59 PM EDT documented in this encounter Patient Instructions * Patient Instructions* Flako Pierre MD - 06/21/2011 3:33 PM EDT - Increase Norvasc to 7.5mg daily. - Please obtain notes from your visit with Dr. Ten Barron and reports of testing in 2009 in [place] including a chest CT scan and echocardiogram if available. documented in this encounter Progress Notes * Flako Pierre MD - 06/21/2011 4:17 PM EDT RHEUMATOLOGY OFFICE NOTE PROBLEM LIST: 1. Diffuse systemic sclerosis. (A) Initially diagnosed [place] [address] Placido Lora at [facility] in [place]. Then followed by Dr. Peyton Hinton in [facility] in [place] in 04/2010. (B) Treatment in the past has included intermittent penicillamine and methotrexate, however, she has been off immunosuppressive therapy since approximately 2005. (C) Hospitalization in 03/2010 in [place] with scleroderma hypertensive renal crisis, on dialysis for two months ending in mid 06/2010. (D) One visit with Dr. Ten Gonzalez in [place], [place] in late 2009. 2. Chronic kidney disease, stage IV, with associated anemia. Currently followed by Dr. Sumit Sawyer in nephrology. 3. Raynaud's symptoms. 4. GERD. CURRENT MEDICATIONS: 1. Tylenol p.r.n. 2. Vitamin E 1200 units p.o. daily. 3. Nexium 40 mg p.o. twice daily. 4. Fosinopril 40 mg p.o. twice daily. 5. Xanax 0.5 mg p.o. twice daily p.r.n. 6. Codeine 36 mg p.o. q.4h. p.r.n. 7. Ranitidine 150 mg p.o. daily p.r.n. 8. Nitroglycerin 2% ointment transdermal q.6h. p.r.n. 9. B-complex C and folic acid vitamin p.o. daily. 10. Norvasc 5 mg p.o. daily. ALLERGIES: NKDA. SUBJECTIVE: Ms. Wells is a very pleasant 51-year-old woman who returns to rheumatology clinic for followup. I saw her for consultation initially in 07/2010 at the request of Dr. Vasquez Hunter from nephrology to follow her longstanding scleroderma. At that visit, I reviewed that the patient had recently been hospitalized in the summer of 2009 in [place] for scleroderma hypertensive renal crisis, requiring several months of dialysis. Her kidney function had been improving off dialysis, but her Raynaud's symptoms remained bothersome. I discussed increasing her Norvasc dose, but deferred it to nephrology on that issue. As the patient was moving to [place] for the wintertime, I set her up to see Dr. Ten Gonzalez in [place], [place]. I also discussed obtaining records from [place] on prior testing, although apparently many of the records were in [place] which would not be legible to us. Ms. Wells presents today stating that she did see Dr. Gonzalez on one occasion, but I have no notes to review at this time. Her Norvasc dose was increased from 2.[address] Gonzalez apparently did not feel that immunosuppressive agents such as CellCept which were previously considered were needed at this time. Ms. 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 However, recently, she has had some return of lesions over the right thumb tip and she wonders about increasing the dose further. She reports no further testing was done in [place], but again we do not have any notes including chest CT and echocardiogram, which will be important to have. When asked about other concerns, the patient does report chronic pain over the MCP joints of her hands. However, interestingly, this was not present when she was on dialysis last year. She does take Tylenol Arthritis which helps with these symptoms. REVIEW OF SYSTEMS: - Ongoing fatigue. No fevers, chills, night sweats, weight loss, anorexia, insomnia, new rashes, HEENT symptoms (including dry eyes, dry mouth, stomatitis, and alopecia), chest pain, palpitations, shortness of breath, cough, abdominal pain, nausea, vomiting, diarrhea, constipation, blood in the stools or urine, urinary symptoms, or focal weakness or numbness. Social and family histories were reviewed. SOCIAL HISTORY: The patient currently resides in a camp in [place], [place] with a boyfriend. She is single and has no children. She denies tobacco, alcohol, or recreational drug use. FAMILY HISTORY: No known rheumatologic disease. PHYSICAL EXAMINATION: Vital Signs: Temperature 97.6 degrees Fahrenheit, pulse 78, blood pressure 111/76, respiratory rate 100, oxygen saturation 100% on room air, height 5 foot 7 inches, and weight 127 pounds. General: This is a very pleasant 51-year-old woman in no acute distress. Skin: The patient again has evidence of diffuse scleroderma with perioral thickening and significant sclerodactyly of the fingers progressing to the forearms. Less prominent skin thickening over the trunk. Nailfold capillaroscopy at our initial consultation in 07/2010 revealed significant dropout in all digits. Minimal pitting of the skin was seen at the tip of right thumb, but not over other digits. She does have ongoing significant telangiectasias over the face, but no [...] 15. PTH elevated at 85. TSH 1.08. IMPRESSION: Ms. Wells returns to rheumatology clinic for followup. She has a longstanding history of diffuse systemic sclerosis, although has been off all immunosuppressive agents for the past five years and I do not see symptoms or signs that would prompt us to try additional therapy. She did see Dr. Ten Gonzalez, a scleroderma specialist in [place], [place], earlier this winter and I would very much like to have an opportunity to review his impression on this matter as well. She did feel that Raynaud's and digital pitting improved with an increased dose of Norvasc, and reports that she was previously on 7.5 mg Norvasc daily, which may better control these symptoms. Given her blood pressure today, I think increasing to this level should be adequate, but I also asked the patient to review with her jig builder as well. If blood pressure becomes an issue, perhaps her Fosinopril dose can be minimally lowered to accommodate more Norvasc which will help with her Raynaud's. It will also important to obtain studies such as a chest CT and echocardiogram, but the patient states these were done fairly recently in [place] and of always been normal. RECOMMENDATIONS: 1. Increase Norvasc to 7.5 mg p.o. daily. 2. I asked the patient to obtain test results from [place] including chest CT and echocardiogram, and also recent consultation note from Dr. Ten Gonzalez for our next evaluation. 3. The patient will continue to follow with Dr. Sawyer in nephrology. 4. Continue with conservative care for Raynaud's. 5. I would like to follow with this patient in three months' time or sooner if additional issues arise. CC: Lilibeth Phillips M.D. Family Medicine [address] [place] [address] documented in this encounter Plan of Treatment Upcoming Encounters Date Type Department Care Team (Late st Contact Info) Description 10/07/2024 11:30 AM EST Office Visit Dermatology at [facility] [address] [place] [address] Jo Ordaz MD [facility] [place] [address] 12/13/2024 11:30 AM EST Appointment [place] [phone] 12/13/2024 1:00 PM EST Office [place] [phone] Kiet Pardo MD [facility] [place] [address] documented as of this encounter Visit Diagnoses Diagnosis Scleroderma- Primary Systemic sclerosis Raynaud's disease Raynaud's syndrome documented in this encounter Care Teams Manager Gaming Relationship Specialty Start Date End Date Lilibeth Phillips MD [address] [place] [address] PCP - General 10/12/10 03/26/12 documented as of this encounter
--- OUTSIDE RECORDS SUMMARY | 2024-09-14 13:14 | XMS_ITS | Encounter Summary ---
[place] [address] Care Team Providers Care Risk Engineer Name Role Phone Lilibeth Phillips MD Primary Care Provider [phone] Reason for Visit * Reason Onset Date Comments Labs Only 05/09/2011 Encounter Details Date Type Department Care Team (Late st Contact Info) Description 05/09/2011 Telephone Nephrology [place] [phone] Wendy Albarado, RN Labs Only Social History Tobacco Use [...] Telephone Encounter - Wendy Albarado RN - 05/11/2011 10:05 AM EDTAddended by: WENDY ALBARADO on: 05/11/2011 Modules accepted: Orders * Telephone Encounter - Wendy Albarado RN - 05/09/2011 4:45 PM EDT O. Labs done. Blood pressure is 129/65 today. Feels fatigued. Sleeping everywhere Even when she is sitting in the restaurant waiting. Appetite is very good, no nausea or vomiting. Results for AMBER DAWSON ( ) as of 05/09/2011 16:37 Ref. Range 03/01/2011 00:00 05/03/2011 00:00 Hemoglobin Latest Range: 12.0-16.0 11.9 (A) 12.3 (External Lab) Hematocrit Latest Range: 36-46 36 37 (External Lab) Sodium Latest Range: 137-147 137 141 (External Lab) Potassium Latest Range: 3.4-5.3 5.1 4.5 (External Lab) Chloride Latest Range: 99-108 104 105 (External Lab) CO2 Latest Range: 22-29 19 (A) 25 (External Lab) BUN Latest Range: 4-21 23 (A) 29 (External Lab) Creatinine Latest Range: 0.5-1.1 2.2 (A) 2.0 (External Lab) Estimated GFR No range found 25 26.4 (External Lab) Glucose Lvl No range found 85 86 (External Lab) Calcium Latest Range: 8.7-10.7 9.6 8.4 (External Lab) Phosphorus Latest Range: 2.5-4.9 3.1 (External Lab) A. Feels Good other than fatigue. Hasn't needed RONAK with Hgb back up to target without. P. Ran out of lisinopril needs new script. She will call-not sure of the dose she is taking currently. documented in this encounter Plan of Treatment Upcoming Encounters Date Type Department Care Team (Late st Contact Info) Description 10/07/2024 11:30 AM EST Office Visit Dermatology at [facility] [address] [place] [address] Jo Ordaz MD [facility] [address] [place], [place] [address] 12/13/2024 11:30 AM EST Appointment [place] [address] 12/13/2024 1:00 PM EST Office Visit [place] [address] Kiet Pardo MD [facility] RHEUMATOLOG[facility] [place] [id number] documented as of this encounter Procedures Procedure Name Priority Date/Time Associated Diagnosis Comments EXTERNAL LAB RESULTS Routine 05/03/2011 documented in this encounter Results * (ABNORMAL) External Lab Results (05/03/2011) Calcium 8.4(Marine Engine Driver al Lab) 8.7 - 10.7 Phosphorus 3.1(Marine Engine Driver al Lab) 2.5 - 4.9 Glucose 86(Externa l Lab) Blood Urea Nitrogen 29(Externa l Lab) 4 - 21 Creatinine 2.0(Marine Engine Driver al Lab) 0.5 - 1.1 Est Glomerular Filtration Rate 26.4(Exter nal Lab) Sodium 141(Marine Engine Driver al Lab) 137 - 147 Potassium 4.5(Marine Engine Driver al Lab) 3.4 - 5.3 Chloride 105(Marine Engine Driver al Lab) 99 - 108 Carbon Dioxide 25(Externa l Lab) 22 - 29 Hemoglobin 12.3(Exter nal Lab) 12.0 - 16.0 Hematocrit 37(Externa l Lab) 36 - 46 Historical Provider CHEMISTRY ORDERAB LES documented in this encounter Visit Diagnoses Diagnosis Scleroderma Systemic sclerosis CKD (chronic kidney disease) stage 4, GFR 15-29 ml/min Chronic kidney disease, Stage IV (severe) documented in this encounter Care Teams Risk Engineer Relationship Specialty Start Date End Date Lilibeth Phillips MD [address] [place] [address] PCP - General 10/12/10 03/26/12 documented as of this encounter
--- OUTSIDE RECORDS SUMMARY | 2024-09-14 13:14 | XMS_ITS | Encounter Summary ---
Author Organization [facility] [address] Care Team Providers Care It Service Technician Name Role Phone Lilibeth Phillips MD Primary Care Provider [phone] Encounter Details Date Type Department Care Team (Late st Contact Info) Description 07/01/2011 Orders Only [place]rology [place] [address] Social History Tobacco Use Types Packs/Day Years [...] EST Office Visit Dermatology at [facility] [address] [place] [address] Jo Ordaz MD [facility] [place] [address] 12/13/2024 11:30 AM EST Appointment [place] [address] 12/13/2024 1:00 PM EST Office [place] [address] Kiet Pardo MD [facility] RHEUMATOLOG[facility] [place] [id number] documented as of this encounter Visit Diagnoses Not on filedocumented in this encounter Care Teams It Service Technician Relationship Specialty Start Date End Date Lilibeth Phillips MD [address] [place] [address] PCP - General 10/12/10 03/26/12 documented as of this encounter
--- OUTSIDE RECORDS SUMMARY | 2024-09-14 13:14 | XMS_ITS | Encounter Summary ---
Author Organization [facility] [place] [address] Care Team Providers Care Ham Smoker Name Role Phone Lilibeth Phillips MD Primary Care Provider [phone] Reason for Visit * Reason Comments Labs Only Encounter Details Date Type Department Care Team (Late st Contact Info) Description 07/04/2011 External Results Ne[place] [address] Wendy Albarado, RN Social History Tobacco Use [...] 11:30 AM EST Office Visit Dermatology at [facility] [address] [place] [address] Jo Ordaz MD [facility] [place] [address] 12/13/2024 11:30 AM EST Appointment [place] [address] 12/13/2024 1:00 PM EST Office [place] [address] Kiet Pardo MD [facility] [place] [address] documented as of this encounter Procedures Procedure Name Priority Date/Time Associated Diagnosis Comments EXTERNAL LAB RESULTS Routine 06/30/2011 documented in this encounter Results * (ABNORMAL) External Lab Results (06/30/2011) Calcium 8.4(Pit Crane Operator al Lab) 8.7 - 10.7 Phosphorus 3.5(Pit Crane Operator al Lab) 2.5 - 4.9 Glucose 102(Pit Crane Operator al Lab) Blood Urea Nitrogen 39(Externa l Lab) 4 - 21 Creatinine 1.7(Pit Crane Operator al Lab) 0.5 - 1.1 Est Glomerular Filtration Rate 31.8(Exter nal Lab) Sodium 134(Pit Crane Operator al Lab) 137 - 147 Potassium 4.9(Pit Crane Operator al Lab) 3.4 - 5.3 Chloride 105(Pit Crane Operator al Lab) 99 - 108 Carbon Dioxide 24(Externa l Lab) 22 - 29 Historical Provider CHEMISTRY ORDERAB LES documented in this encounter Visit Diagnoses Not on filedocumented in this encounter Care Teams Ham Smoker Relationship Specialty Start Date End Date Lilibeth Phillips MD [address] [place] [address] PCP - General 10/12/10 03/26/12 documented as of this encounter
--- OUTSIDE RECORDS SUMMARY | 2024-09-14 13:14 | XMS_ITS | Encounter Summary ---
Author Organization [facility] Address [facility] [place] [address] Care Team Providers Care Picked Edge Sewing Machine Operator Name Role Phone Lilibeth Phillips MD Primary Care Provider [phone] Encounter Details Date Type Department Care Team (Late Contact Info) Description 05/13/2011 Orders Only Ne[place] [address] Sumit Sawyer MD [facility] [place] [address] CKD (chronic kidney disease) stage 4, GFR 15-29 ml/min; Anemia associated with chronic renal failure Social History Tobacco Use Types Packs/Day Years [...] Dermatology at [facility] [address] [place] [address] Jo Ordaz MD [facility] [place] [address] 12/13/2024 11:30 AM EST Appointment [place] [address] 12/13/2024 1:00 PM EST Office [place] [address] Kiet Pardo MD [facility] [place] [place] [address] documented as of this encounter Results * (ABNORMAL) PTH (05/18/2011 11:01 AM EDT) Parathyroid Hormone 85(H) 15 - 65 pg/mL [facility] Blood specimen (specimen) 05/18/2011 11:01 AM EDT 05/18/2011 11:06 AM EDT Sumit Sawyer MD CHEMISTRY ORDERABLE S [facility] * Ferritin (05/18/2011 11:01 AM EDT) Ferritin 15 15 - 150 ng/mL [facility] Comment: Pediatric reference ranges not verified at [facility], interpret with caution. Reference ranges for females greater than 50 years of age approach values for men, i.e., 30-400 ng/mL. Blood specimen (specimen) 05/18/2011 11:01 AM EDT 05/18/2011 11:06 AM EDT Sumit Sawyer MD CHEMISTRY ORDERABLE S [facility] * Iron and TIBC (05/18/2011 11:01 AM EDT) Iron 123 30 - 150 mcg/dL [facility] TIBC 265 250 - 450 mcg/dL [facility] Iron Saturation 46 20 - 50 % [facility] ER MILLENNIUM Blood specimen (specimen) 05/18/2011 11:01 AM EDT 05/18/2011 11:06 AM EDT Sumit Sawyer MD CHEMISTRY ORDERABLE S Performing Organization Address City/[facility] Co de Phone Number CERNER MILLENNIUM * Phosphorus (05/18/2011 11:01 AM EDT) Phosphorus 2.7 2.5 - 4.5 mg/dL [facility] Blood specimen (specimen) 05/18/2011 11:01 AM EDT 05/18/2011 11:06 AM EDT Sumit Sawyer MD CHEMISTRY ORDERABLE S Performing Organization Address [facility] Co de Phone Number [facility]ERNER MILLENNIUM * [...] 11:01 AM EDT 05/18/2011 11:06 AM EDT Sumit Sawyer MD HEMATOLOGY ORDERABL ES CERNER [...] 11:01 AM EDT 05/18/2011 11:06 AM EDT Sumit Sawyer MD CHEMISTRY ORDERABLE S Performing Organization Address City/[facility] Co de Phone Number [facility] * Albumin (05/18/2011 11:01 AM EDT) Albumin 4.4 3.2 - 5.2 gm/dL [facility] Blood specimen (specimen) 05/18/2011 11:01 AM EDT 05/18/2011 11:06 AM EDT Sumit Sawyer MD CHEMISTRY ORDERABLE S Performing Organization Address City/[facility] Co de Phone Number [facility] VALENC[facility] documented in this encounter Visit Diagnoses Diagnosis CKD (chronic kidney disease) stage 4, GFR 15-29 ml/min Chronic kidney disease, Stage IV (severe) Anemia associated with chronic renal failure Anemia in chronic kidney disease documented in this encounter Care Teams Picked Edge Sewing Machine Operator Relationship Specialty Start Date End Date Lilibeth Phillips MD [address] [place] [address] PCP - General 10/12/10 03/26/12 documented as of this encounter
--- OUTSIDE RECORDS SUMMARY | 2024-09-14 13:14 | XMS_ITS | Encounter Summary ---
[place] [address] Care Team Providers Care Retail General Manager Name Role Phone Lilibeth Phillips MD Primary Care Provider [phone] Reason for Visit * Reason Onset Date Comments Other 06/22/2011 patient stopped in clinic today re: blood pressure Encounter Details Date Type Department Care Team (Late st Contact Info) Description 06/22/2011 Telephone Nephrology [place] [address] Wendy Albarado RN Other (patient stopped in clinic today re: blood pressure) Social History Tobacco Use Types Packs/Day Years [...] Telephone Encounter - Wendy Albarado RN - 06/22/2011 9:17 AM EDT O. Patient seen by rheumatology today and recommendations made to increase her norvasc to 7.5mg daily (secondary to her painful fingers). She stopped in the Nephrology clinic to see if she should continue her current dose of fosinopril 40mg twice a day. Her BPs at home have been in the 120/70 range. A. Increase in norvasc ordered by rheum to allievate painful symptoms in her fingers P. She will monitor her BP's at home and will call if she has low BP's or is symptomatic with increase in norvasc. Will discuss with Dr Sawyer. documented in this encounter Plan of Treatment Upcoming Encounters Date Type Department Care Team (Late st Contact Info) Description 10/07/2024 11:30 AM EST Office Visit Dermatology at [place] [address] [place] [address] Jo Ordaz MD [facility] [place] [address] 12/13/2024 11:30 AM EST Appointment [place] [address] 12/13/2024 1:00 PM EST Office Visit [place] [address] Kiet Pardo MD [facility] [place] [address] documented as of this encounter Visit Diagnoses Not on filedocumented in this encounter Care Teams Retail General Manager Relationship Specialty Start Date End Date Lilibeth Phillips MD [address] [place] [address] PCP - General 10/12/10 03/26/12 documented as of this encounter
--- OUTSIDE RECORDS SUMMARY | 2024-09-14 13:14 | XMS_ITS | Encounter Summary ---
Author Organization [facility] [place] [address] Care Team Providers Care Typewriter Assembly And Parts Inspector Name Role Phone Lilibeth Phillips MD Primary Care Provider [phone] Reason for Visit * Reason Comments Eye Problem scleroderma, hyperte nsive retinopathy, Hx ret hem, 7 mo. check. Vision seems same as last fall. Encounter Details Date Type Department Care Team (Late st Contact Info) Description 03/30/2011 9:45 AM EDT [place] [phone] Jaiden Maradiaga MD [facility] DR OPHTHALMOLOGY [place] [address] Hypertensive retinopathy of both eyes (Primary Dx) Discharge Disposition: Home Social History [...] of this encounter Progress Notes * Jaiden Maradiaga MD - 03/30/2011 1:29 PM EDT Hypertensive Retinopathy:Fully resolved No opthalmic pathology or new findings. 1 year viridiana prn documented in this encounter Nursing Notes * 03/30/2011 9:45 AM EDT >> HELGA Farias GUANAKITO, INGA Wed March 30, 2011 10:29 AM Description:Patient presents with: Eye Problem - scleroderma, hypertensive retinopathy, Hx ret hem, 7 mo. check. Vision seems same aslast fall. Location: bilateral eye Duration: 7 months Condition:No Change documented in this encounter Plan of Treatment Upcoming Encounters Date Type Department Care Team (Late st Contact Info) Description 10/07/2024 11:30 AM EST Office Visit Dermatology at [facility] [address] [place] [address] Jo Ordaz MD [facility] [place] [address] 12/13/2024 11:30 AM EST Appointment [place] [address] 12/13/2024 1:00 PM EST Office [place] [address] Kiet Pardo MD [facility] [place] [address] documented as of this encounter Visit Diagnoses Diagnosis Hypertensive retinopathy of both eyes- Primary Hypertensive retinopathy documented in this encounter Care Teams Typewriter Assembly And Parts Inspector Relationship Specialty Start Date End Date Lilibeth Phillips MD [address] [place] [address] PCP - General 10/12/10 03/26/12 documented as of this encounter
--- OUTSIDE RECORDS SUMMARY | 2024-09-14 13:14 | XMS_ITS | Encounter Summary ---
[place] [address] Care Team Providers Care Radiology Physician Name Role Phone Lilibeth Phillips MD Primary Care Provider [phone] Reason for Visit * Reason Comments Labs Only Encounter Details Date Type Department Care Team (Late st Contact Info) Description 08/29/2011 External Results [place] [address] Wendy Albarado RN Social History Tobacco Use [...] Progress Notes * Wendy Albarado RN - 08/29/2011 8:59 AM EDT O. Lab trends Results for AMBER DAWSON ( ) as of 08/29/2011 08:58 Ref. Range 03/01/2011 00:00 05/03/2011 00:00 05/18/2011 11:01 06/30/2011 00:00 08/23/2011 00:00 WBC Latest Range: 4.0-10.0 x10(3)/mcL 8.8 RBC Latest Range: 3.93-5.22 x10(6)/mcL 3.86 (L) Hemoglobin Latest Range: 12.0-16.0 11.9 (A) 12.3 (External Lab) 12.6 12.3 (External Lab) Hematocrit Latest Range: 36-46 36 37 (External Lab) 37.6 38 (External Lab) MCV Latest Range: 79.0-94.0 fL 97.4 (H) MCH Latest Range: 26.6-32.2 pg 32.6 (H) MCHC Latest Range: 32.0-36.5 gm/dL 33.5 RDWSD Latest Range: 35.0-46.0 fL 45.5 RDWCV Latest Range: 10.9-14.4 % 12.8 Platelets No range found 343 339 (External Lab) MPV Latest Range: 9.0-12.0 fL 10.7 Neutr [...] Range: 20-50 % 46 Sodium Latest Range: 137-147 137 141 (External Lab) 137 134 (External Lab) 134 (External Lab) Potassium Latest Range: 3.4-5.3 5.1 4.5 (External Lab) 4.7 4.9 (External Lab) 4.9 (External Lab) Chloride Latest Range: 99-108 104 105 (External Lab) 105 105 (External Lab) 105 (External Lab) CO2 Latest Range: 22-29 19 (A) 25 (External Lab) 22 24 (External Lab) 24 (External Lab) Anion Gap Latest Range: 5-15 mmol/L 10 BUN Latest Range: 4-21 23 (A) 29 (External Lab) 26 (H) 39 (External Lab) 27 (External Lab) Creatinine Latest Range: 0.5-1.1 2.2 (A) 2.0 (External Lab) 1.82 (H) 1.7 (External Lab) 1.8 (External Lab) Estimated GFR No range found 25 26.4 (External Lab) 29 (L) 31.8 (External Lab) 30 (External Lab) Glucose Lvl No range found 85 86 (External Lab) 100 102 (External Lab) 77 (External Lab) Calcium Latest Range: 8.7-10.7 9.6 8.4 (External Lab) 9.7 8.4 (External Lab) 9.0 (External Lab) Phosphorus Latest Range: 2.5-4.9 3.1 (External Lab) 2.7 3.5 (External Lab) 3.2 (External Lab) Albumin Latest Range: 3.2-5.2 gm/dL 4.4 TSH Latest Range: 0.27-4.20 mcIU/mL 1.08 PTH Latest Range: 15-65 pg/mL 85 (H) A. Stable kidney function. P. Patient having monthly labs done. documented in this encounter Plan of Treatment Upcoming Encounters Date Type Department Care Team (Late st Contact Info) Description 10/07/2024 11:30 AM EST Office Visit Dermatology at [facility] [address] [place] [address] Jo Ordaz MD [facility] [place] [place] [address] 12/13/2024 11:30 AM EST Appointment [place] [address] 12/13/2024 1:00 PM EST Office [place] [address] Kiet Pardo MD [facility] DR RHEUMATOLOGY [place] [phone] documented as of this encounter Procedures Procedure Name Priority Date/Time Associated Diagnosis Comments EXTERNAL LAB RESULTS Routine 08/23/2011 documented in this encounter Results * (ABNORMAL) External Lab Results (08/23/2011) Calcium 9.0(Instrument/Control Technician al Lab) 8.7 - 10.7 Phosphorus 3.2(Instrument/Control Technician al Lab) 2.5 - 4.9 Glucose 77(Externa l Lab) Creatinine 1.8(Instrument/Control Technician al Lab) 0.5 - 1.1 Blood Urea Nitrogen 27(Externa l Lab) 4 - 21 Est Glomerular Filtration Rate 30(Externa l Lab) Sodium 134(Instrument/Control Technician al Lab) 137 - 147 Potassium 4.9(Instrument/Control Technician al Lab) 3.4 - 5.3 Chloride 105(Instrument/Control Technician al Lab) 99 - 108 Carbon Dioxide 24(Externa l Lab) 22 - 29 Hemoglobin 12.3(Exter nal Lab) 12.0 - 16.0 Hematocrit 38(Externa l Lab) 36 - 46 Platelet 339(Instrument/Control Technician al Lab) Historical Provider CHEMISTRY ORDERAB LES documented in this encounter Visit Diagnoses Not on filedocumented in this encounter Care Teams Radiology Physician Relationship Specialty Start Date End Date Lilibeth Phillips MD [address] [place] [address] PCP - General 10/12/10 03/26/12 documented as of this encounter
[2024-09-14 18:37] LABS: HCT 40.9 % (36.0-46.0); HGB 14.6 g/dL (11.2-15.7); MCH 34.6 pg (27.0-33.0); MCHC 35.7 % (32.0-36.0); MCV 97 fL (80-95); MPV 11.6 fL (8.0-11.0); Platelet Count 294 10^3/uL (130-400); RBC 4.22 10^6/uL (3.93-5.22); RDW 13.1 % (11.7-14.6); RDW-SD 47.1 fL; WBC 6.62 10^3/uL (4.4-10.8)
[2024-09-14 18:50] LABS: Iron 73 ug/dL (50-170)
[2024-09-14 19:16] LABS: ALT 18 U/L (14-59); AST 18 U/L (15-37); Albumin 4.2 g/dL (3.4-5.0); Alkaline Phosphatase 71 U/L (46-116); Anion Gap 11.9 mmol/L (3-11); BUN 29 mg/dL (7-18); Bilirubin, Total 0.44 mg/dL (0.2-1.0); CO2 27.1 mmol/L (21.0-32.0); CREATININE 1.2 mg/dL (0.55-1.02); Calcium 9.6 mg/dL (8.5-10.1); Calculated LDL 174 mg/dL (<100); Chloride 104 mmol/L (98-107); Cholesterol 261 mg/dL (<200); Estimated GFR 50.86 (mL/min/1.73m2); Glucose 87 mg/dL (74-106); HDL Cholesterol 56 mg/dL (40-60); Potassium 4.6 mmol/L (3.5-5.1); Sodium 143 mmol/L (136-145); TSH (W/Ref FT4) 1.65 uIU/mL (0.36-3.74); Total Protein 7.4 g/dL (6.4-8.2); Triglyceride 158 mg/dL (<150); Vitamin B12 403 pg/mL (193-986)
== END 2024-09-14 12:55 | disposition home or self-care (01) ==
LOC: LBN 12:54
PROVIDERS: PCP Nurse Practitioner Family; Visit Provider Nurse Practitioner Family
DX: N18.4 Chronic kidney disease, stage 4 (severe) (principal); D63.1 Anemia in chronic kidney disease; E78.00 Pure hypercholesterolemia, unspecified; R53.83 Other fatigue; N63.20 Unspecified lump in the left breast, unspecified quadrant; R07.1 Chest pain on breathing; M54.9 Dorsalgia, unspecified
CPT/HCPCS: 80053; 80061; 85027; 82607; 83540; 84443

== ENCOUNTER 2024-11-18 01:24 | Outpatient (CLI) | payer MEDICAID, SELFPAY ==
--- NOTE | 2024-11-18 | DI.US_ITS ---
Exam(s) US BREAST LT LIMITED EXAM: US BREAST LT LIMITED CLINICAL HISTORY: modified to Left breast ultrasound, biopsy cancelled by Surgeon. TECHNIQUE: Limited ultrasound of the left breast was performed. COMPARISON: Prior outside mammograms were reviewed. Apparently this patient had prior mammogram ultr asound performed at outside institution and was scheduled for ultrasound-guided percutaneous biopsy a t this institution. FINDINGS: The biopsy was apparently canceled by the surgeon and instead elected to be done in the operating pao m. The limited left breast ultrasound images reveal of well-defined wider than taller nodule measuring 3 .7 cm length by 0.7 cm superficially located at the peripheral 9 o'clock position. Appears to be at the border of the breast and chest wall. This wider than taller well-defined lesion exhibits slightl y increased through transmission. There is no decreased through transmission evident on these images . If this is indeed within the breast, it has appearance of possible PASH which is pseudoangiomatous stromal hyperplasia. Other possibly may be hamartoma such as a fibroadenolipoma. IMPRESSION: Ultrasound-guided biopsy cancelled by the surgeon. Apparently instead elected to be performed in the operating room. Appearance of the ultrasound images is possibly PASH (pseudo angiomatous stromal hyperplasia) or fibr oadenolipoma (hamartoma). Less likely malignancy by ultrasound appearance BI-RADS Category 4 - Suspicious Abnormality: Biopsy should be considered Breast Density - Category C - Heterogeneously dense Breast density Category C or D implies that the patient has dense breast tissue. Dense breast tissue can make it harder to find cancer on a mammogram. Dense breast tissue is also associated with an incr eased risk of breast cancer. This information about the result of the mammogram report was provided to the patient to raise their awareness. Use this report when you speak with the patient about their risks for breast cancer, which includes their family history. At that time, you may recommend additional screening tests (Ultrasoun d or MRI) as these tests may add significant information. A negative radiographic report should not delay biopsy if a dominant or clinically suspicious mass is present. Up to ten percent of cancers are not identified on mammography. A negative report may reinforce clinical impression. Adenosis and dense breasts may obscure an underlying neoplasm. False positive reports average 6 to 10%. Patient will receive a letter notifying them of these results.
== END 2024-11-18 01:44 ==
LOC: DI 01:27
PROVIDERS: PCP Nurse Practitioner Family; Visit Provider Surgery
DX: R92.8 Other abnormal and inconclusive findings on diagnostic imaging of breast (principal)
CPT/HCPCS: 76642

== ENCOUNTER 2024-12-04 12:35 | Day surgery (SDC) | payer MEDICAID, SELFPAY ==
--- NOTE | 2024-12-03 18:39 | W.PREOPHP ---
Assessment and Plan Assessment and plan (1) Skin lesion: Status: Acute Assessment and plan: We reviewed the plan for excision and primary closure of this lesion, or at the very least incisional biopsy for tissue diagnosis. I think Amber has a good understanding of the risks and benefits, she is able to provide informed consent, and we can move forward with the procedure as planned History of Present Illness History of Present Illness Chief Complaint: Sternal skin lesion Narrative: Amber is a 64 year old woman with CREST syndrome who was iniaitally referred to me for a breast lesion. She underwent mammogram at [facility] which was normal. This was complimented with an US that described a 10 mm hypervascular and hypoechoic mass in the 9 o'clock position, apporximately 9 cm from the nipple. I scheduled her for a US guided core needle biopsy. On exam, this appears distinct from the breast tissue. It is quite superficial and nearly overlying the left edge of the sternum. It appears consistent with a skin lesion. It has been present for at least a few months and was captured on a CT of the chest performed at [facility] in September of 2024. It might have increased in size a bit compared to that study. It is painful on some occasions. PFSH All Active Problems Skin lesion (Acute) Abnormal mammogram (Acute) Fatigue (Acute) Vertigo (Acute) Seborrheic keratosis (Acute) Left upper arm pain (Acute) Base of deltoid x 6 months, no known injury Osteoporosis (Chronic) Left breast mass (Acute) Chronic anal fissure (Chronic) Chronic kidney disease (CKD) stage G4/A1, severely decreased glomerular filtration rate (GFR) between 15-29 mL/min/1.73 square meter and albuminuria creatinine ratio less than 30 mg/g (Chronic) Anemia of chronic renal failure, stage 4 (severe) (Acute) Anxiety (Chronic) Hypercholesteremia (Acute) IBS (irritable bowel syndrome) (Chronic) Insomnia (Chronic) Incontinence of feces (Chronic) Intermittent Arthritis (Chronic) CREST syndrome (Chronic ~01/09/20) Barretts esophagus (Chronic) 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, right sided thoracic tumor Medical History Altered bowel habits COVID 04/13/22 - Antigen + 04/21/22 - Antigen - Cephalgia Rhinitis Headache Dyspareunia Menopause severe sypmtoms H/O: depression Solar lentigo Finger ulcer Chronic renal disease, stage 4, severely decreased glomerular filtration rate (GFR) between 15-29 mL/min/1.73 square meter Anemia of chronic renal failure High blood pressure Cardona syndrome Surgical History History of esophagogastroduodenoscopy (EGD) (~10/18/22) History of surgical procedure (~10/07/16) ulnar artery transfer into cephalic vein Hx of needle biopsy Core Needle Biopsy- soft tissue, left occipital scalp mass Fistula (~11/20/09) Port put in for Dialysis History of biopsy (~10/02/19) Basal cell carcinoma of anterior chest - [facility] H/O colonoscopy (~04/04/13) normal History of back surgery (~05/06/14) excisional biopsy of spindle cell tumor of the back History of excision of lesion (~06/22/20) reexcision of desmoid fibromatosis of the back first removed 05/27/14 H/O dilation and curettage Family History Mother , 80's Hypertension Father , late 60's Alcohol abuse Sister No problems noted. Sister No problems noted. Sister No problems noted. Brother Alcohol abuse Brother Alcohol abuse Maternal Grandfather , 60's Alcohol abuse Paternal Grandfather , 60's No problems noted. Maternal Grandmother , 70's Diabetes Hypertension Paternal Grandmother , late 90's No problems noted. Social History Smoking/Tobacco Use Status: Former Tobacco Use tobacco type: cigarettes Quit Date: 10/25/10 Tobacco: How many years used: 25 Second Hand Exposure: Yes Smoking risk assessment performed?: Yes Alcohol Intake: current Alcohol Intake frequency: a few times a month Alcohol type: wine Drug use: Never Substance use type: does not use Counseling given: No Counseling provided: none Caregiver/Support person: No Household members: spouse Housing: house Communication Needs: None and Corrective Lenses Do you need help understanding health information?: Never Pets and animals: Yes Pets and animals: cat(s) Sexually active: No Do you think of yourself as: straight/heterosexual Current gender identity: female What is your relationship status?: How often do you talk on the phone with friends or family?: once per week How often do you get together with friends or relatives?: twice per week How often do you attend judaism or orthodox services?: 4 or more times per year Do you belong to any clubs or organized social groups?: yes Panel score (0-1 are the most socially isolated patients): 4 What type of physical activity do you participate in: walking and other Details: cross country,ski,hiking Duration: 30-45 minutes/day Frequency: 5-6 times per week Cindi/Taoist: Latter-Day Seatbelt use: always Helmet use: No Drive intox or ride w/intox charter coach driver: No Do you feel safe at home: Yes Do you feel safe in your relationship?: Yes Additional Social history: [facility] Meds Allergies and Home Medications Allergies Allergy/AdvReac Type Severity Reaction Status Date / Time shellfish derived Allergy Unknown hallucinati Verified 12/04/24 13:29 ons Home Medications ?Medication ?Instructions ?Recorded ?Confirmed ?Type esomeprazole magnesium 40 mg 40 mg PO BID 08/17/19 12/04/24 History capsule,delayed release (Nexium) amlodipine 10 mg tablet 5 mg PO HS 02/01/21 12/04/24 History cholecalciferol (vitamin D3) 25 25 mcg PO DAILY 02/01/21 12/04/24 History mcg (1,000 unit) capsule clobetasol 0.05 % topical ointment 1 applic topical BID PRN 02/01/21 12/04/24 History glycerin (adult) 1 supp [place] PRN 02/01/21 12/04/24 History lidocaine-prilocaine 2.5 %-2.5 % 1 applic topical PRN 02/01/21 12/04/24 History topical cream vitamin E 268 mg (400 unit) capsule 400 unit PO DAILY 02/01/21 12/02/24 History nitroglycerin 2 % transdermal 0.5 inch transdermal Q6H 02/02/21 12/04/24 History ointment acetaminophen 300 mg-codeine 30 mg 2 tab PO Q6H PRN Prescribed by Kamryn 02/11/21 12/04/24 History tablet Orzechoortizki [facility]-finger ulcers PRN acetaminophen 325 mg capsule 650 mg PO BID PRN 02/11/21 12/04/24 History calcium citrate See Rx Instructions .Route .COMPLEX 02/11/21 12/04/24 History ibuprofen 200 mg tablet 200 mg PO Q6H PRN 03/07/21 12/04/24 History omega-3 fatty acids 1,000 mg 1,000 mg PO DAILY 03/07/21 12/02/24 History capsule (Fish Oil Concentrate) fosinopril 20 mg tablet 20 mg PO DAILY PRN 04/25/22 12/04/24 History hydrocortisone 2.5 % topical 1 applic topical PRN 04/25/22 12/04/24 History ointment polyethylene glycol 3350 17 17 g PO PRN 04/25/22 12/04/24 History gram/dose oral powder (Miralax) fluticasone propionate 50 1 spray intranasal BID PRN nasal 09/08/23 12/04/24 Rx mcg/actuation nasal congestion #16 grams spray,suspension (Allergy Relief (fluticasone)) zoledronic acid 5 mg/100 mL in 1 device IV .every year #100 mL 01/11/24 12/04/24 Rx mannitol 5 %-water intravenous piggybck (Reclast) sildenafil 25 mg tablet 20 mg PO 5X/DAY PRN 03/26/24 12/04/24 History meclizine 25 mg tablet 25 mg PO TID PRN 05/17/24 12/04/24 History lorazepam 1 mg tablet 1 mg PO BID PRN anxiety #30 tabs 05/25/24 12/04/24 Rx Exam Const General: cooperative, healthy appearing and not in acute distress Neck Neck: normal visual inspection, no lymphadenopathy and supple Thyroid: thyroid normal Chest Other: There is an indurated slightly tender lesion just to the left side of the sternum, there is no erythema. There is no associated adenopathy. Resp Effort & Inspection: normal respiratory effort Auscultation: clear to auscultation bilaterally Cardio Jugular venous pressure: no JVD Rate: regular rate Rhythm: regular rhythm Heart Sounds: S1 normal and S2 normal Neuro General: patient alert, patient awake and patient oriented x3 Psych Appearance: grossly normal
[2024-12-04] VITALS (24 sets, daily range): BP systolic 134–174; BP diastolic 74–105; PULSE 63–87; RESP 12–24; TEMP 36–36.8; O2SAT 94–99; BMI 22.1
--- NOTE | 2024-12-04 07:12 | PDOC.DSDIS_ITS ---
Date of service: 12/04/24 Discharge Plan Disposition Patient Disposition: Home Condition: Good Discharge Details Reason For Visit: Excision and primary closure skin lesion Attending Provider: Sumit Magdaleno Primary Care Provider: Ameya David Home Meds and New Rx's Prescriptions: New tramadol 50 mg tablet 50 mg PO Q8H PRNQty: 6 0RF Rx Instructions: Take 1 tablet by mouth up to every 8 hours if needed for severe pain. Continued polyethylene glycol 3350 [Miralax] 17 gram/dose powder 17 g PO PRN fosinopril 20 mg tablet 20 mg PO DAILY PRN lorazepam 1 mg tablet 1 mg PO BID PRN (Reason: anxiety) Qty: 30 0RF calcium citrate tablet See Rx Instructions .ROUTE .COMPLEX Rx Instructions: 600 mg PO BID; acetaminophen-codeine 300-30 mg tablet 2 tab PO Q6H PRN (Reason: Pres[place] by Kamryn [place]cdonough [facility] [place]) acetaminophen 325 mg capsule 650 mg PO BID PRN zoledronic srpu-onkpfmss-gicve [Reclast] 5 mg/100 mL piggyback 1 device IV .every year Qty: 100 0RF amlodipine 10 mg tablet 5 mg PO HS cholecalciferol (vitamin D3) 25 mcg (1,000 unit) capsule 25 mcg PO DAILY clobetasol 0.05 % ointment 1 applic topical BID PRN lidocaine-prilocaine 2.5-2.5 % cream 1 applic topical PRN glycerin (adult) Suppository 1 supp [place] PRN vitamin E 400 unit capsule 400 unit PO DAILY nitroglycerin 2 % ointment 0.5 inch transdermal Q6H Rx Instructions: allow nitrate-free interval of approx. 10-12 hrs per 24-hour period ibuprofen 200 mg tablet 200 mg PO Q6H PRN omega-3 fatty acids [Fish Oil Concentrate] 1,000 mg capsule 1,000 mg PO DAILY hydrocortisone 2.5 % ointment 1 applic topical PRN fluticasone propionate [Allergy Relief (fluticasone)] 50 mcg/actuation spray,suspension 1 spray intranasal BID PRN (Reason: nasal congestion) Qty: 16 0RF Rx Instructions: administer into each nostril sildenafil 25 mg tablet 20 mg PO 5X/DAY PRN Rx Instructions: Taken to [place] Raynauds [place] [facility] [place] Pardo. -hb meclizine 25 mg tablet 25 mg PO TID PRN Rx Instructions: per [facility] ED esomeprazole magnesium [Nexium] 40 mg Capsule,Delayed Release(Dr/Ec) 40 mg PO BID Discharge Instructions Additional Instructions: Bronwyn, was very nice seeing you today, and I hope you are comfortable during the procedure, and that you make a quick recovery. Everything went very smoothly. Based on what I saw in the operating room, my presumptive diagnosis is, in fact a desmoid tumor. The surrounding tissue had some fibrosis, which is quite consistent with desmoids and the character of the tissue itself also seems consistent with that. I believe I was able to get this all out today, but that fibrotic tissue can make it a little challenging to decipher the true edge of the lesion. Regardless, I took out as much as I safely could through a reasonable incision. As I mentioned before hand, I used several stitches underneath of your skin that will be absorbed with time. You have a skin glue at the top layer holding the skin edges together. There is a Band-Aid on top of that. You can leave the Band-Aid in place for the next 24 hours. After that, please feel free to remove it.you will see the purple tinge to the skin glue underneath. Wash the incision with warm soapy water in the shower. You do not need to replace the Band-Aid. However, if you are more comfortable with a dressing over top of it that is very reasonable. The skin glue will slowly flake off over the next 2 weeks or so. You may get some bruising in the area. That is extremely common and nothing at all to be worried about. I would like to hear if the skin starts turning bright red, if there is any drainage from the wound. I will have the office call you tomorrow for a follow-up checkup in the office. I would typically see a patient around 7 to 10 days after surgery like this. If I get the pathology report back before that, however I will give you a call. 1. Resume all of your regular medications. 2. Alternate heating pads and ice packs over the incision if needed for pain or swelling. 3. Okay to use tylenol and ibuprofen over the counter as needed. Use the prescription for tramadol if needed for more intense pain 4. Leave bandage in place for 24 hours, then remove. 5. Shower with warm soapy water. Pat dry. Use a bandaid if needed to protect your clothing. 6. No soaking or tub baths until I see you in the office. 7. No heavy lifting until I see you in the office. 8. Call the office (or go directly to the emergency room after hours) if you notice any of the following: Develop chills (warm to touch), or if you have a thermometer and your temperature is above 101 Difficulty breathing or difficultly swallowing Persistent vomiting Any bleeding ? exceeding one tablespoon 9. Call your physician if the site where your intravenous was started becomes red, swollen, painful, and warm to touch. Activity:: Activity as Tolerated Remove Dressings/Wound Care:: 24 hours Shower/Bathe:: 24 hours Diet:: As Tolerated Discharge Orders Discharge Orders: Discharge Order (Routine); Ordered 12/04/24 Ordered By: Sumit Magdaleno DS: Diagnosis Discharge Diagnosis (1) Skin lesion: Status: Acute
--- NOTE | 2024-12-04 07:21 | ROE_ITS ---
Operative Note Operative Note PRE-OP DIAGNOSIS: subcutaneous skin lesion Same-possibly desmoid tumor PROCEDURE: Excisional biopsy of subcutaneous skin lesion SURGEON: Sumit Magdaleno INDUSTRIAL HEALTH ENGINEER: Oswaldo Asencio ANESTHESIA TYPE: Local By Surgeon and General LMA/ETT Refer to Anesthesia Record ESTIMATED BLOOD LOSS: 5 PATHOLOGY: other (Subcutaneous skin lesion) COMPLICATIONS: None Patient was transported to: PACU Patient's condition: stable Indications: Bronwyn is a 64-year-old woman with a lesion along the left sternal border in the subcutaneous space Findings: Fibrotic soft tissue mass with clinical features consistent with desmoid tumor Procedure Description: I met with Amber in the preoperative area, and reviewed the interval history since our last encounter. I explained the planned excision and primary closure of the subcutaneous skin lesion. I marked the skin, and we were in agreement with the location. I explained that I would try my best to completely resect it, but at the very least provide adequate tissue sampling for tissue diagnosis. I think she had a good understanding of the plan, and she provided informed consent. Next, we moved back to the operating room. She was assisted on the OR table and padded and supported appropriately. General endotracheal anesthesia was induced. Next, the lesion over the left upper inner quadrant of the breast right at the sternal border was prepped and draped. I anesthetized the skin using local anesthetic establishing a generous field block all around the subcutaneous tissues. Next, I made a transverse incision along the skin over the lesion, and dissected down into the subcutaneous space sharply. Just at the deep layer of skin in the area what I would anticipate subcutaneous fat was a dense mass with fibrotic changes surrounding it. It was carefully circumferentially dissected away from the surrounding subcutaneous fat. There appeared to be a small vessel arising from the upper inner aspect of the incision. This was controlled with a hemostat. I continued dissection along the underside, which again had fibrotic changes in the subcutaneous space. Once the mass was completely free, it was passed off the field and labeled appropriately. The vessel was then cauterized. The site was irrigated clean. It appeared hemostatic. Cautery was used to obliterate some of the fibrosis at the wound base. Next, the deep layers of soft tissue were reapproximated with interrupted 3-0 Vicryl stitches, and a running monofilament suture was used to reapproximate the skin edge. Surgical glue was used as a topical dressing, and once this was dry, bandage was applied. The patient was then allowed awaken from the anesthetic, extubated, and transferred to the recovery unit. Excision site was approximately 3 cm long by 2 cm deep. Date of Procedure: 12/04/24
[2024-12-04] MEDS: Gabapentin 300 MG CAP 600 MG PO (13:38)
[2024-12-04] MEDS: Celecoxib 200 MG CAP PO (13:38)
[2024-12-04] MEDS: Acetaminophen 500 MG TAB 1000 MG PO (13:38)
--- NOTE | 2024-12-04 13:48 | ANES.PREOP_ITS ---
General Info Date of Service Date Performed: 12/04/24 Height: 5 ft 5.5 in Weight: 61.4 kg Body Mass Index (BMI): 22.1 Surgical Procedure: Operation Date: 12/04/24 14:10 Proposed Procedure Side Surgeon p Incisional Biopsy w/Closure Sumit Magdaleno MD Meds Allergies and Home Medications Allergies Allergy/AdvReac Type Severity Reaction Status Date / Time shellfish derived Allergy Unknown hallucinati Verified 12/04/24 13:29 ons Home Medication ?Medication ?Instructions ?Recorded esomeprazole magnesium 40 mg 40 mg PO BID 08/17/19 capsule,delayed release (Nexium) amlodipine 10 mg tablet 5 mg PO HS 02/01/21 cholecalciferol (vitamin D3) 25 25 mcg PO DAILY 02/01/21 mcg (1,000 unit) capsule clobetasol 0.05 % topical ointment 1 applic topical BID PRN 02/01/21 glycerin (adult) 1 supp [place] PRN 02/01/21 lidocaine-prilocaine 2.5 %-2.5 % 1 applic topical PRN 02/01/21 topical cream vitamin E 268 mg (400 unit) capsule 400 unit PO DAILY 02/01/21 nitroglycerin 2 % transdermal 0.5 inch transdermal Q6H 02/02/21 ointment acetaminophen 300 mg-codeine 30 mg 2 tab PO Q6H PRN Prescribed by Kamryn 02/11/21 peter Mcdonough [facility]-finger ulcers PRN acetaminophen 325 mg capsule 650 mg PO BID PRN 02/11/21 calcium citrate See Rx Instructions .Route .COMPLEX 02/11/21 ibuprofen 200 mg tablet 200 mg PO Q6H PRN 03/07/21 omega-3 fatty acids 1,000 mg 1,000 mg PO DAILY 03/07/21 capsule (Fish Oil Concentrate) fosinopril 20 mg tablet 20 mg PO DAILY PRN 04/25/22 hydrocortisone 2.5 % topical 1 applic topical PRN 04/25/22 ointment polyethylene glycol 3350 17 17 g PO PRN 04/25/22 gram/dose oral powder (Miralax) fluticasone propionate 50 1 spray intranasal BID PRN nasal 09/08/23 mcg/actuation nasal congestion #16 grams spray,suspension (Allergy Relief (fluticasone)) zoledronic acid 5 mg/100 mL in 1 device IV .every year #100 mL 01/11/24 mannitol 5 %-water intravenous piggybck (Reclast) sildenafil 25 mg tablet 20 mg PO 5X/DAY PRN 03/26/24 meclizine 25 mg tablet 25 mg PO TID PRN 05/17/24 lorazepam 1 mg tablet 1 mg PO BID PRN anxiety #30 tabs 05/25/24 Current Visit Medications: Current Medications Generic Name Dose Route Start Last Admin Trade Name Zaida PRN Reason Stop Dose Admin Acetaminophen 1,000 mg 12/04/24 06:00 12/04/24 13:38 Acetaminophen 500 Mg Tab PO 12/04/24 23:59 1,000 mg PREOP YASMANY Administration Celecoxib 200 mg 12/04/24 06:00 12/04/24 13:38 Celecoxib 200 Mg Cap PO 12/04/24 23:59 200 mg PREOP YAS[place]Y Administration Gabapentin 600 mg 12/04/24 06:00 12/04/24 13:38 Gabapentin 300 Mg Cap PO 12/04/24 23:59 600 mg PREOP [place]AS[place]Y Administration Hydromorphone HCl 0.2 mg 12/04/24 07:16 Hydromorphone 1 Mg/Ml Syr IVP 01/03/25 07:15 Q1H PRN PRN Cefazolin Sodium/Dextrose 2 gm in 50 mls @ 100 mls/hr 12/04/24 06:00 Ancef Duplex IVPB 12/04/24 23:59 PREOP YAS[place]Y Ringer's Solution 1,000 mls @ 80 mls/hr 12/04/24 12:00 IV 01/03/25 11:59 INFUSION YASMANY IV Miscellaneous Supplies 1 each 12/04/24 06:00 Iv Access IV 12/04/24 23:59 DIRECTED YAS[place]Y Sodium Chloride 0 ml 12/04/24 06:00 Normal Saline Flush 10 Ml Syr IV 12/04/24 23:59 PRN PRN Sodium Chloride 0 ml 12/04/24 06:00 Normal Saline 10 Ml Vial IJ 12/04/24 23:59 DIRECTED PRN Sterile Water 0 ml 12/04/24 06:00 Water,Injection,Sterile 10 Ml Vial IJ 12/04/24 23:59 DIRECTED PRN Tramadol HCl 50 mg 12/04/24 07:16 Tramadol 50 Mg Tab PO 01/03/25 07:15 Q6H PRN PRN Pain PFSH Active Problems Active Problems: Problem Status Onset Code Skin lesion Acute L98.9 Abnormal mammogram Acute R92.8 Fatigue Acute R53.83 Vertigo Acute R42 Seborrheic keratosis Acute L82.1 Left upper arm pain Acute M79.622 Osteoporosis Chronic M81.0 Left breast mass Acute N63.20 Chronic anal fissure Chronic K60.1 Chronic kidney disease (CKD) stage G4/A1, severely decreased glomerular filtration rate (GFR) between 15-29 mL/min/1.73 square meter and albuminuria creatinine ratio less than 30 mg/g Chronic N18.4 Anemia of chronic renal failure, stage 4 (severe) Acute N18.4, D63.1 Anxiety Chronic F41.9 Hypercholesteremia Acute E78.00 IBS (irritable bowel syndrome) Chronic K58.9 Insomnia Chronic G47.00 Incontinence of feces Chronic R15.9 Arthritis Chronic M19.90 CREST syndrome Chronic ~20 M34.1 Barretts esophagus Chronic K22.70 Desmoid fibromatosis Chronic ~10/02/19 D48.1 Medical History Medical History Altered bowel habits COVID 04/13/22 - Antigen + 04/21/22 - Antigen - Cephalgia Rhinitis Headache Dyspareunia Menopause severe sypmtoms H/O: depression Solar lentigo Finger ulcer Chronic renal disease, stage 4, severely decreased glomerular filtration rate (GFR) between 15-29 mL/min/1.73 square meter Anemia of chronic renal failure High blood pressure Cardona syndrome Surgical History Surgical History History of esophagogastroduodenoscopy (EGD) (~10/18/22) History of surgical procedure (~10/07/16) ulnar artery transfer into cephalic vein Hx of needle biopsy Core Needle Biopsy- soft tissue, left occipital scalp mass Fistula (~11/20/09) Port put in for Dialysis History of biopsy (~10/02/19) Basal cell carcinoma of anterior chest - [facility] H/O colonoscopy (~04/04/13) normal History of back surgery (~05/06/14) excisional biopsy of spindle cell tumor of the back History of excision of lesion (~06/22/20) reexcision of desmoid fibromatosis of the back first removed 05/27/14 H/O dilation and curettage Tobacco Smoking/Tobacco Use Status: Former Tobacco Use Passive smoking exposure: Yes ( smokes inside the house when I am not home) Second hand exposure: Yes Alcohol Alcohol Intake: current Alcohol intake frequency: a few times a month Alcohol type: wine Substance Use Substance use: Never Substance use type: does not use Counseling provided: none Vital Signs and Lab Results Vital Signs Most Recent Vital Signs in EMR: Most Recent Vital Signs Temp Pulse Resp BP Pulse Ox 36 C L 68 18 140/90 99 12/04/24 13:11 12/04/24 13:11 12/04/24 13:11 12/04/24 13:11 12/04/24 13:11 Lab Results Blood Type / Crossmatch: No Data to Display Complete Blood Count: No Data to Display Complete Metabolic Panel: No Data to Display Liver Function Panel: No Data to Display Coagulation Panel: No Data to Display Cardiac Panel: No Data to Display Arterial Blood Gas: No Data to Display Venous Blood Gas: No Data to Display Pancreas Panel: No Data to Display Thyroid Panel: No Data to Display Infectious Disease: No Data to Display Blood Cultures: No Data to Display Toxicology Panel: No Data to Display Anesthesia Assessment and Plan Anesthesia History Personal History: No History of Anesthesia Complications Family History: No Family History of Anesthesia Complications Exercise Tolerance Exercise Tolerance: Metabolic Equivalents>4 Cardiac & Pulmonary Exam Cardiac Exam: Normal S1/S2 Heart Sounds Pulmonary Exam: Clear Bilateral Breath Sounds Implantable Cardiac Device Does patient have a Pacemaker or an ICD?: No Airway Exam Known Difficult Airway: No Mallampati Class: 4 Mouth Opening: Narrow (< 3cm) Thyromental Distance: Less than 3 cm Neck Range of Motion: Limited ROM Neck Circumference: Normal Teeth Condition: Normal Dentition ASA Classification ASA Score: ASA 3 Emergency Case?: No NPO Status NPO Status: NPO Clears >2 hours, Solids >8 hours Anesthesia Plan Resuscitation Status: Full Code Anesthesia Technique: General Anesthesia Airway Planned: Endotracheal Tube Monitors Used: Standard Monitors Preoperative Comments:: 64 yo female for sternal mass. Sig PMHx: HTN, GERD/durbin's (Nexium 2 x/day, multiple EGDs at [facility]), CKDIV (prior HD), vertigo, anemia, scleroderma/CREST, depression. EKG: Sinus, long TX. ECHO: LVEF 67%, no sig valve issues, mild Ao dilation. PFTs: mild obstructive, normal diffusion capacity. Previous Anes: - EGD, dexmed, prop, natural airway, no issues. - back mass, grade 1 (unclear what blade), easy mask. midaz, prop, sevo.
[2024-12-04] MEDS: Lactated Ringers 1,000 ML 80 ML IV (14:17)
[2024-12-04] MEDS: ceFAZolin 2 GM/50 ML BAG IVPB (15:15)
--- NOTE | 2024-12-04 15:39 | SKI_PTH ---
PATIENT: Amber Wells LOC: [facility] U#:[id number] AGE/SX: 64/F ROOM: RE12/04/[address]: Sumit Magdaleno MD : [id number] BED: DIS: 12/04/2024 SPEC #: [id number] RECD: 12/04/24 18:41 STATUS: HARSHA REQ #: [id number] NAVYA: 12/04/24 15:[address]: Sumit Magdaleno DEPT: Surgical Specimen RECD BY: Susannah Delgado ENTERED: 12/04/24 18:42 SP TYPE: YENNY CRAMER DR: Ameya Downs DNP Tissues: 1 - SKIN BIOPSY(SHAVE/PUNCH) Procedures: IMMUNOPEROXIDASE STAIN SKIN LEVEL 4 Comments: [id number]
[2024-12-04] MEDS: Bupivacaine 0.25% Pres-Free W/EPI 30 ML VIAL (15:46)
[2024-12-04] MEDS: fentaNYL 100 MCG/2 ML VIAL IVP (16:39)
--- NOTE | 2024-12-04 17:30 | W.ANESPOSTOP ---
Postoperative Evaluation Date, Time and Location Date Performed: 12/04/24 Time Performed: 16:59 Patient Location: Day Surgery Unit Vital Signs Most Recent Imported Vital Signs: Most Recent Vital Signs Temp Pulse Resp BP Pulse Ox 36.2 C L 70 18 156/80 H 97 12/04/24 17:07 12/04/24 17:07 12/04/24 17:07 12/04/24 17:07 12/04/24 17:07 Pain Score Most Recent Pain Score: Most Recent Pain Score Pain Level 0 12/04/24 17:07 Assessment Mental Status: Awake (Alert & Oriented to Patient Baseline) Airway and Respiratory Function: Patent airway with normal (patient baseline) respiratory exam Cardiovascular Function: Hemodynamically Stable Hydration Status: Adequately Hydrated Nausea & Vomiting: No Nausea or Vomiting Pain: Pain is tolerable per patient Peripheral Nerve Block: Patient did not receive a nerve block
== END 2024-12-04 17:51 | disposition home or self-care (01) ==
LOC: SUR 12:36
PROVIDERS: PCP Nurse Practitioner Family; Visit Provider Surgery
PROC: (CPT 21552; principal; 2024-12-04 14:00)
DX: D48.111 Desmoid tumor of chest wall (principal)
CPT/HCPCS: 21552; 88305; 88361; J0690; J1100; J1790; J2250; J2405; J2704; J3010

== ENCOUNTER 2025-01-24 00:39 | Outpatient (RCR) | payer MEDICAID, SELFPAY ==
[2025-01-24] MEDS: ZOLEDRONIC ACID/MANNITOL/WATER 5 MG/100 ML BTL 300 MG IVPB (14:02)
[2025-01-24] MEDS: Normal Saline Flush 5 ML SYR IVP (14:09)
== END 2025-02-17 23:59 | disposition home or self-care (01) ==
LOC: INF 00:39
PROVIDERS: PCP Nurse Practitioner Family; Visit Provider Nurse Practitioner Family
DX: M81.0 Age-related osteoporosis without current pathological fracture (principal)
CPT/HCPCS: 96365; J3489

== ENCOUNTER 2025-02-13 16:06 | Outpatient (REF) | payer MEDICAID, SELFPAY ==
[2025-02-13 16:11] LABS: HCT 42.8 % (36.0-46.0); HGB 14.1 g/dL (11.2-15.7); MCH 32.5 pg (27.0-33.0); MCHC 32.9 % (32.0-36.0); MCV 99 fL (80-95); MPV 10.8 fL (8.0-11.0); Platelet Count 312 10^3/uL (130-400); RBC 4.34 10^6/uL (3.93-5.22); RDW 13.3 % (11.7-14.6); RDW-SD 48.4 fL; WBC 8.11 10^3/uL (4.4-10.8)
[2025-02-13 16:24] LABS: Iron 99 ug/dL (50-170)
[2025-02-13 16:51] LABS: Vitamin B12 376 pg/mL (193-986)
[2025-02-14 08:52] LABS: Lab Add On Test DONE
== END 2025-02-13 16:07 | disposition home or self-care (01) ==
LOC: LBN 16:06
PROVIDERS: PCP Nurse Practitioner Family; Visit Provider Nurse Practitioner Family
DX: R53.83 Other fatigue (principal); D75.89 Other specified diseases of blood and blood-forming organs; D63.1 Anemia in chronic kidney disease
CPT/HCPCS: 85027; 82607; 83540